=== PATIENT | male | born 1970 | race African-American/Black ===

== ENCOUNTER 2019-01-09 10:44 | Inpatient (IN) | payer SELFPAY ==
[~2019-01-09] VITALS: Ht 190.5 cm; Wt 230.4 kg
[2019-01-09] MEDS ORDERED: MORPHINE SULFATE 2 MG/ML VIAL. IV/SQ PRN (12:15)
[2019-01-09 12:30] LABS: BASO % 1 % (0-3); EOS # 0.2 x10^3/uL (0.0-0.7); EOS % 3 % (0-3); HEMATOCRIT 47.1 % (39.0-53.0); HEMOGLOBIN 14.6 g/dL (13.0-17.5); LYMPH % 15 % (24-48); MEAN CORPUSCULAR HEMOGLOBIN 25 pg (25-35); MEAN CORPUSCULAR HGB CONC 31 g/dL (31-37); MEAN CORPUSCULAR VOLUME 81 fL (79-100); MONO # 0.6 x10^3/uL (0.0-1.1); MONO % 9 % (0-9); NEUT # 4.9 x10^3uL (1.8-7.7); NEUT % 73 % (31-73); PLATELET COUNT 228 x10^3/uL (140-400); RED CELL DISTRIBUTION WIDTH 17.3 % (11.5-14.5); WHITE BLOOD COUNT 6.7 x10^3/uL (4.0-11.0)
[2019-01-09 12:37] LABS: PROTHROMBIN TIME PATIENT 15.4 SEC (11.7-14.0)
[2019-01-09 12:39] LABS: CALCIUM 8.9 mg/dL (8.5-10.1); CREATININE 0.8 mg/dL (0.7-1.3); GFR 124.8; POTASSIUM 4.2 mmol/L (3.5-5.1)
[2019-01-09 12:45] LABS: ALBUMIN 3.3 g/dL (3.4-5.0); ALBUMIN/GLOBULIN RATIO 0.9 (1.0-1.7); TOTAL BILIRUBIN 0.5 mg/dL (0.2-1.0); TOTAL PROTEIN 6.8 g/dL (6.4-8.2)
[2019-01-09] MEDS ORDERED: cefTRIAXone IV Push 1 GM VIAL. IVP ONE (12:45)
--- NOTE | 2019-01-09 13:16 | RAD ---
Chest radiograph 01/09/2019 1:00 PM INDICATION: Shortness of air COMPARISON: None available TECHNIQUE: Portable upright frontal view of the chest is provided. FINDINGS: The cardiomediastinal silhouette is enlarged. There are no pleural effusions. There is mild pulmonary vascular congestion. There is no pneumothorax. The lungs are clear. No significant osseous abnormality is identified. IMPRESSION: Enlarged cardiomediastinal silhouette with mild pulmonary vascular congestion as may be seen with congestive heart failure. Electronically signed by: Jo Elkins MD (01/09/2019 1:13 PM) [id number]
[2019-01-09] MEDS ORDERED: ONDANSETRON PF 4 MG/2 ML VIAL. IV PRN (13:45)
[2019-01-09] MEDS ORDERED: MORPHINE SULFATE 2 MG/ML VIAL. IV PRN (13:45)
--- NOTE | 2019-01-09 14:12 | PHYS DOC ---
Past Medical History Past Medical History: Hypertension, Other Additional Past Medical Histor: OBESITY Past Surgical History: Other Additional Past Surgical Histo: ORAL Additional Information: "VAPES" Alcohol Use: None Drug Use: None Adult General Chief Complaint Chief Complaint: OTHER COMPLAINTS HPI HPI Patient is a 48 year old male with a history of hypertension, chronic lymphedema to bilateral lower extremities who presents to the ED today compl aining of a wound on the right calf with maggots that he noted a week ago. Patient denies any fever. Denies any nausea or vomiting. Review of Systems Review of Systems Constitutional: Denies fever or chills [] Eyes: Denies change in visual acuity, redness, or eye pain [] HENT: Denies nasal congestion or sore throat [] Respiratory: Denies cough or shortness of breath [] Cardiovascular: No additional information not addressed in HPI [] GI: Denies abdominal pain, nausea, vomiting, bloody stools or diarrhea [] : Denies dysuria or hematuria [] Musculoskeletal: Denies back pain or joint pain [] Integument: wound on the right calf with maggots Neurologic: Denies headache, focal weakness or sensory changes [] All other systems were reviewed and found to be within normal limits, except as documented in this note. Current Medications Current Medications Current Medications Medications (Trade) Dose Ordered Sig/Stefanie Start Time Stop Time Status Last Admin Dose Admin Ceftriaxone Sodium (Rocephin) 1 gm 1X ONCE 01/09/19 12:45 01/09/19 12:46 DC 01/09/19 12:38 1 GM Morphine Sulfate (Morphine Sulfate) 2 mg PRN Q15MIN PRN 01/09/19 12:15 01/10/19 12:14 Allergies Allergies Allergies Coded Allergies Type Severity Reaction Last Updated Verified No Known Drug Allergies 01/09/19 No Physical Exam Physical Exam Constitutional: Morbidly obese patient, no acute distress, non-toxic appearance. [] HENT: Normocephalic, atraumatic, bilateral external ears normal, oropharynx moist, no oral exudates, nose normal. [] Eyes: PERRLA, EOMI, conjunctiva normal, no discharge. [] Neck: Normal range of motion, no tenderness, supple, no stridor. [] Cardiovascular:Heart rate regular rhythm, no murmur [] Lungs & Thorax: Bilateral breath sounds clear to auscultation [] Abdomen: Bowel sounds normal, soft, no tenderness, no masses, no pulsatile masses. [] Skin: Warm, dry, no erythema, no rash. [] Back: No tenderness, no CVA tenderness. [] Extremities: Bilateral lower extremities with moderate chronic lymphedema. Very dry crusty skin noted to bilateral lower extremities. The right lower calf region has an open with live maggots. +1 bilateral pedal pulses Neurologic: Alert and oriented X 3, normal motor function, normal sensory function, no focal deficits noted. [] Psychologic: Affect normal, judgement normal, mood normal. [] Current Patient Data Vital Signs Vital Signs Date Time Temp Pulse Resp B/P (MAP) Pulse Ox O2 Delivery O2 Flow Rate FiO2 01/09/19 12:51 80 179/109 (132) 94 Nasal Cannula 2.0 01/09/19 12:21 23 01/09/19 11:21 98.2 98.2 Lab Values Laboratory Tests Test 01/09/19 11:58 White Blood Count 6.7 x10^3/uL (4.0-11.0) Red Blood Count 5.80 x10^6/uL (4.30-5.70) H Hemoglobin 14.6 g/dL (13.0-17.5) Hematocrit 47.1 % (39.0-53.0) Mean Corpuscular Volume 81 fL (79-100) Mean Corpuscular Hemoglobin 25 pg (25-35) Mean Corpuscular Hemoglobin Concent 31 g/dL (31-37) Red Cell Distribution Width 17.3 % (11.5-14.5) H Platelet Count 228 x10^3/uL (140-400) Neutrophils (%) (Auto) 73 % (31-73) Lymphocytes (%) (Auto) 15 % (24-48) L Monocytes (%) (Auto) 9 % (0-9) Eosinophils (%) (Auto) 3 % (0-3) Basophils (%) (Auto) 1 % (0-3) Neutrophils # (Auto) 4.9 x10^3uL (1.8-7.7) Lymphocytes # (Auto) 1.0 x10^3/uL (1.0-4.8) Monocytes # (Auto) 0.6 x10^3/uL (0.0-1.1) Eosinophils # (Auto) 0.2 x10^3/uL (0.0-0.7) Basophils # (Auto) 0.0 x10^3/uL (0.0-0.2) Prothrombin Time 15.4 SEC (11.7-14.0) H Prothrombin Time INR 1.3 (0.8-1.1) H PTT 30 SEC (24-38) Sodium Level 142 mmol/L (136-145) Potassium Level 4.2 mmol/L (3.5-5.1) Chloride Level 103 mmol/L (98-107) Carbon Dioxide Level 37 mmol/L (21-32) H Anion Gap 2 (6-14) L Blood Urea Nitrogen 10 mg/dL (8-26) Creatinine 0.8 mg/dL (0.7-1.3) Estimated GFR (Cockcroft-Gault) 124.8 BUN/Creatinine Ratio 13 (6-20) Glucose Level 103 mg/dL (70-99) H Lactic Acid Level 1.1 mmol/L (0.4-2.0) Calcium Level 8.9 mg/dL (8.5-10.1) Total Bilirubin 0.5 mg/dL (0.2-1.0) Aspartate Amino Transferase (AST) 14 U/L (15-37) L Alanine Aminotransferase (ALT) 20 U/L (16-63) Alkaline Phosphatase 103 U/L (46-116) Total Protein 6.8 g/dL (6.4-8.2) Albumin 3.3 g/dL (3.4-5.0) L Albumin/Globulin Ratio 0.9 (1.0-1.7) L Procalcitonin < 0.10 ng/mL (0.00-0.10) Laboratory Tests 01/09/19 11:58 Laboratory Tests 01/09/19 11:58 EKG EKG [] Radiology/Procedures Radiology/Procedures []PROCEDURE: PORTABLE CHEST 1V Chest radiograph 01/09/2019 1:00 PM INDICATION: Shortness of air COMPARISON: None available TECHNIQUE: Portable upright frontal view of the chest is provided. FINDINGS: The cardiomediastinal silhouette is enlarged. There are no pleural effusions. There is mild pulmonary vascular congestion. There is no pneumothorax. The lungs are clear. No significant osseous abnormality is identified. IMPRESSION: Enlarged cardiomediastinal silhouette with mild pulmonary vascular congestion as may be seen with congestive heart failure. Electronically signed by: Mike Elkins MD (01/09/2019 1:13 PM) [id number] DICTATED and SIGNED BY: MIKE ELKINS MD DATE: 01/09/19 1313 Course & Med Decision Making Course & Med Decision Making Pertinent Labs and Imaging studies reviewed. (See chart for details) This is a 48-year-old male patient presented to the ED with a wound on the right calf with maggots. Patient is morbidly obese and has chronic lymphedema. CBC, CMP-no acute findings Blood pressure 169/118, patient has history of hypertension and is not on any medications. Chest x-ray noted for CHF. Wound care consult placed Spoke with Dr. mcmillan accepted patient for admission Dragon Disclaimer Dragon Disclaimer This electronic medical record was generated, in whole or in part, using a voice recognition dictation system. Departure Departure Impression: Primary Impression: Infestation, maggot Additional Impression: Wound of right lower extremity Disposition: ADMITTED INPATIENT Condition: STABLE Referrals: NO PCP (PCP) Problem Qualifiers Additional Impression: Wound of right lower extremity Encounter type: initial encounter Qualified Codes: S81.801A - Unspecified open wound, right lower leg, initial encounter CARSON [employer] WR[employer] Jan 09, 2019 14:12
--- NOTE | 2019-01-09 14:17 | RAD ---
Bilateral lower extremity venous duplex study 01/09/2019 12:05 PM Clinical History: Right calf wound, Comparison: None available Technique: Using a combination of real time ultrasound imaging and color-flow and pulse Doppler imaging techniques along with graded compression and augmentation, duplex evaluation of the deep venous system of the both lower extremities was performed. Multiple images were obtained. Findings: Exam is significantly limited by patient body habitus. Visualized deep veins of the bilateral lower extremities demonstrate color flow on Doppler imaging. Evaluation of compressibility is particularly limited. Evaluation below the knee is also seen significantly limited. IMPRESSION: Significantly limited study without gross evidence of deep venous thrombosis involving either lower extremity.. Electronically signed by: Nikita Vernon MD (01/09/2019 2:14 PM) [id number]
--- NOTE | 2019-01-09 15:12 | NUR ---
Pt arrived to unit at approx 1455. Pt's bp was 217/123. Dr Cali was notified, stated he would place orders.
[2019-01-09] MEDS ORDERED: NICOTINE 21MG PATCH. TD PRN (15:15)
[2019-01-09] MEDS ORDERED: NICOTINE POLACRILEX 2MG GUM PACKAGE of 12. BC PRN (15:15)
[2019-01-09] MEDS: amLODIPine BESYLATE 10 MG TABLET PO SCH (15:28)
--- NOTE | 2019-01-09 15:28 | PDOC1 ---
History and Physical Date of Admission Date of Admission DATE: 01/09/19 TIME: 15:24 Identification/Chief Complaint Chief Complaint leg wound Source Source: Chart review, Patient History of Present Illness History of Present Illness Mr. Lozoya, is a 48 year old male with a report of chronic lymphedema to bilateral lower extremities admti with worsening from a wound on the right calf. Pain with movement, he cannot lift the leg well to examine, the ER reported bugs in the wetness of the wound. . Patient denies any fever. Denies any nausea or vomiting. he was aware of hypertension, has not seen a doctor in years, takes no meds, Past Medical History Cardiovascular: HTN Pulmonary: No pertinent hx GI: No pertinent hx Heme/Onc: No pertinent hx Hepatobiliary: No pertinent hx Psych: No pertinent hx Rheumatologic: No pertinent hx Infectious disease: No pertinent hx Past Surgical History Past Surgical History: No pertinent history Family History Family History: Hypertension Social History Smoke: <1 pack per day ALCOHOL: none Drugs: None Current Problem List Problem List Problems Medical Problems: (1) Infestation, maggot Status: Acute (2) Wound of right lower extremity Status: Acute Current Medications Current Medications Current Medications Morphine Sulfate (Morphine Sulfate) 2 mg PRN Q15MIN PRN IV/SQ PAIN GREATER THAN 3/10; Start 01/09/19 at 12:15; Stop 01/10/19 at 12:14 Ceftriaxone Sodium (Rocephin) 1 gm 1X ONCE IVP Last administered on 01/09/19at 12:38; Start 01/09/19 at 12:45; Stop 01/09/19 at 12:46; Status DC Ondansetron HCl (Zofran) 4 mg PRN Q8HRS PRN IV NAUSEA/VOMITING; Start 01/09/19 at 13:45; Stop 01/10/19 at 13:44 Morphine Sulfate (Morphine Sulfate) 2 mg PRN Q2HR PRN IV PAIN; Start 01/09/19 at 13:45; Stop 01/10/19 at 13:44 Amlodipine Besylate (Norvasc) 10 mg DAILY PO ; Start 01/09/19 at 15:15 Allergies Allergies: Coded Allergies: No Known Drug Allergies (Unverified , 01/09/19) ROS General: No: Chills, Night Sweats, Fatigue, Malaise, Appetite, Other PSYCHOLOGICAL ROS: YES: Sleep disturbances; No: Anxiety, Behavioral Disorder, Concentration difficultie, Decreased libido, Depression, Disorientation, Hallucinations, Hostility, Irritablity, Memory difficulties, Mood Swings, Obsessive thoughts, Physical abuse, Sexual abuse, Suicidal ideation, Other Eyes: No Blurry vision, No Decreased vision, No Double vision, No Dry eyes, No Excessive tearing, No Eye Pain, No Itchy Eyes, No Loss of vision, No Photophobia, No Scotomata, No Uses contacts, No Uses glasses, No Other HEENT: YES: Heacaches; No: Visual Changes, Hearing change, Nasal congestion, Nasal discharge, Oral lesions, Sinus pain, Sore Throat, Epistaxis, Sneezing, Snoring, Tinnitus, Vertigo, Vocal changes, Other Respiratory: No: Cough, Hemoptysis, Orthopnea, Pleuritic Pain, Shortness of breath, SOB with excertion, Sputum Changes, Stridor, Tachypnea, Wheezing, Other Cardiovascular: No Chest Pain, No Palpitations, No Orthopnea, No Paroxysmal Noc. Dyspnea, No Edema, No Lt Headedness, No Other Gastrointestinal: No Nausea, No Vomiting, No Abdominal Pain, No Diarrhea, No Constipation, No Melena, No Hematochezia, No Other Genitourinary: No Dysuria, No Frequency, No Incontinence, No Hematuria, No Retention, No Discharge, No Urgency, No Pain, No Flank Pain, No Other, No , No , No , No , No , No , No Musculoskeletal: No Gait Disturbance, No Joint Pain, No Joint Stiffness, No Joint Swelling, No Muscle Pain, No Muscular Weakness, No Pain In:, No Swelling In:, No Other Neurological: No Behavorial Changes, No Bowel/Bladder ControlChng, No Confusion, No Dizziness, No Gait Disturbance, No Headaches, No Impaired Coord/balance, No Memory Loss, No Numbness/Tingling, No Seizures, No Speech Problems, No Tremors, No Visual Changes, No Weakness, No Other Skin: Yes Dry Skin, Yes Hair Changes, Yes Rash, Yes Skin Lesion Changes, Yes Other; No Eczema, No Lumps, No Mole Changes, No Mottling, No Nail Changes, No Pruritus, No Acne Physical Exam General: Alert, Oriented X3, Cooperative, mild distress HEENT: PERRLA, EOMI Lungs: Normal air movement Heart: S1S2, RRR Abdomen: Soft (very obese, ) Extremities: No cyanosis Skin: Other (right LE wound, lateral, wet, with bugs per ER staff. skin has chronic thickening and is very dry, elephant type skin) Neuro: Normal gait, Normal speech Psych/Mental Status: Mental status NL, Mood NL Vitals Vitals Vital Signs Date Time Temp Pulse Resp B/P (MAP) Pulse Ox O2 Delivery O2 Flow Rate FiO2 01/09/19 14:40 198/110 (139) 87 Room Air 01/09/19 13:51 88 01/09/19 13:21 2.0 01/09/19 12:21 23 01/09/19 11:21 98.2 98.2 Labs Labs Laboratory Tests Test 01/09/19 11:58 White Blood Count 6.7 x10^3/uL (4.0-11.0) Red Blood Count 5.80 x10^6/uL (4.30-5.70) Hemoglobin 14.6 g/dL (13.0-17.5) Hematocrit 47.1 % (39.0-53.0) Mean Corpuscular Volume 81 fL (79-100) Mean Corpuscular Hemoglobin 25 pg (25-35) Mean Corpuscular Hemoglobin Concent 31 g/dL (31-37) Red Cell Distribution Width 17.3 % (11.5-14.5) Platelet Count 228 x10^3/uL (140-400) Neutrophils (%) (Auto) 73 % (31-73) Lymphocytes (%) (Auto) 15 % (24-48) Monocytes (%) (Auto) 9 % (0-9) Eosinophils (%) (Auto) 3 % (0-3) Basophils (%) (Auto) 1 % (0-3) Neutrophils # (Auto) 4.9 x10^3uL (1.8-7.7) Lymphocytes # (Auto) 1.0 x10^3/uL (1.0-4.8) Monocytes # (Auto) 0.6 x10^3/uL (0.0-1.1) Eosinophils # (Auto) 0.2 x10^3/uL (0.0-0.7) Basophils # (Auto) 0.0 x10^3/uL (0.0-0.2) Prothrombin Time 15.4 SEC (11.7-14.0) Prothromb Time International Ratio 1.3 (0.8-1.1) Activated Partial Thromboplast Time 30 SEC (24-38) Sodium Level 142 mmol/L (136-145) Potassium Level 4.2 mmol/L (3.5-5.1) Chloride Level 103 mmol/L (98-107) Carbon Dioxide Level 37 mmol/L (21-32) Anion Gap 2 (6-14) Blood Urea Nitrogen 10 mg/dL (8-26) Creatinine 0.8 mg/dL (0.7-1.3) Estimated GFR (Cockcroft-Gault) 124.8 BUN/Creatinine Ratio 13 (6-20) Glucose Level 103 mg/dL (70-99) Lactic Acid Level 1.1 mmol/L (0.4-2.0) Calcium Level 8.9 mg/dL (8.5-10.1) Total Bilirubin 0.5 mg/dL (0.2-1.0) Aspartate Amino Transf (AST/SGOT) 14 U/L (15-37) Alanine Aminotransferase (ALT/SGPT) 20 U/L (16-63) Alkaline Phosphatase 103 U/L (46-116) Total Protein 6.8 g/dL (6.4-8.2) Albumin 3.3 g/dL (3.4-5.0) Albumin/Globulin Ratio 0.9 (1.0-1.7) Procalcitonin < 0.10 ng/mL (0.00-0.10) Laboratory Tests Test 01/09/19 11:58 White Blood Count 6.7 x10^3/uL (4.0-11.0) Red Blood Count 5.80 x10^6/uL (4.30-5.70) Hemoglobin 14.6 g/dL (13.0-17.5) Hematocrit 47.1 % (39.0-53.0) Mean Corpuscular Volume 81 fL (79-100) Mean Corpuscular Hemoglobin 25 pg (25-35) Mean Corpuscular Hemoglobin Concent 31 g/dL (31-37) Red Cell Distribution Width 17.3 % (11.5-14.5) Platelet Count 228 x10^3/uL (140-400) Neutrophils (%) (Auto) 73 % (31-73) Lymphocytes (%) (Auto) 15 % (24-48) Monocytes (%) (Auto) 9 % (0-9) Eosinophils (%) (Auto) 3 % (0-3) Basophils (%) (Auto) 1 % (0-3) Neutrophils # (Auto) 4.9 x10^3uL (1.8-7.7) Lymphocytes # (Auto) 1.0 x10^3/uL (1.0-4.8) Monocytes # (Auto) 0.6 x10^3/uL (0.0-1.1) Eosinophils # (Auto) 0.2 x10^3/uL (0.0-0.7) Basophils # (Auto) 0.0 x10^3/uL (0.0-0.2) Prothrombin Time 15.4 SEC (11.7-14.0) Prothromb Time International Ratio 1.3 (0.8-1.1) Activated Partial Thromboplast Time 30 SEC (24-38) Sodium Level 142 mmol/L (136-145) Potassium Level 4.2 mmol/L (3.5-5.1) Chloride Level 103 mmol/L (98-107) Carbon Dioxide Level 37 mmol/L (21-32) Anion Gap 2 (6-14) Blood Urea Nitrogen 10 mg/dL (8-26) Creatinine 0.8 mg/dL (0.7-1.3) Estimated GFR (Cockcroft-Gault) 124.8 BUN/Creatinine Ratio 13 (6-20) Glucose Level 103 mg/dL (70-99) Lactic Acid Level 1.1 mmol/L (0.4-2.0) Calcium Level 8.9 mg/dL (8.5-10.1) Total Bilirubin 0.5 mg/dL (0.2-1.0) Aspartate Amino Transf (AST/SGOT) 14 U/L (15-37) Alanine Aminotransferase (ALT/SGPT) 20 U/L (16-63) Alkaline Phosphatase 103 U/L (46-116) Total Protein 6.8 g/dL (6.4-8.2) Albumin 3.3 g/dL (3.4-5.0) Albumin/Globulin Ratio 0.9 (1.0-1.7) Procalcitonin < 0.10 ng/mL (0.00-0.10) VTE Prophylaxis Ordered VTE Prophylaxis Devices: No VTE Pharmacological Prophylaxi: No Assessment/Plan Assessment/Plan accelerated hypertension LE edema, probable diastolic CHF, lee check echo RIght leg wound, consult wound care and ID chronic skin sclerosis from edema, elephantitis appearance of skin morbid obesity, BMI 62 tobacco use d/o (vaping) admitted ERROL CASILLAS MD Jan 09, 2019 15:28
[2019-01-09] MEDS: CARVEDILOL 6.25 MG TABLET. PO SCH (15:29)
--- NOTE | 2019-01-09 15:52 | NUR ---
Wound care: Patient seen per wound care consult. See wound assessment. Patient has stasis ulcer to right posterior lower extremity as well as lymphedema bilaterally. Wound cleansed with Dakins, assessed, measured, and photographed. There were live maggots found in this wound. Maggots cleansed off and placed in a red biohazard bag. Recommendations for Aquacel Ag to wound bed, ABD pad, and kerlix. Changing every 1-2 days depending on drainage. No other wounds noted upon complete head to toe assessment. Dressing change instructions left in room. Spoke with RN regarding POC. Patient is on a P-500 bariatric bed. Ammonium lactate to be ordered by RN for bilateral lower extremities. Bed lowered and call light in reach. Will follow patient regarding wound care.
[2019-01-09 16:52] VITALS: BP 217/123
[2019-01-09 19:00] VITALS: BP 130/84
[2019-01-09 23:00] VITALS: BP 169/79
[2019-01-10 03:00] VITALS: BP 173/94
[2019-01-10 04:36] LABS: BASO % 0 % (0-3); EOS # 0.2 x10^3/uL (0.0-0.7); EOS % 2 % (0-3); HEMATOCRIT 48.9 % (39.0-53.0); HEMOGLOBIN 15.3 g/dL (13.0-17.5); LYMPH # 0.9 x10^3/uL (1.0-4.8); LYMPH % 12 % (24-48); MEAN CORPUSCULAR HEMOGLOBIN 25 pg (25-35); MEAN CORPUSCULAR HGB CONC 31 g/dL (31-37); MEAN CORPUSCULAR VOLUME 81 fL (79-100); MONO # 0.5 x10^3/uL (0.0-1.1); MONO % 7 % (0-9); NEUT # 5.9 x10^3uL (1.8-7.7); NEUT % 79 % (31-73); PLATELET COUNT 215 x10^3/uL (140-400); RED BLOOD COUNT 6.01 x10^6/uL (4.30-5.70); RED CELL DISTRIBUTION WIDTH 17.4 % (11.5-14.5); WHITE BLOOD COUNT 7.5 x10^3/uL (4.0-11.0)
[2019-01-10 04:57] LABS: CALCIUM 9.2 mg/dL (8.5-10.1); CREATININE 0.8 mg/dL (0.7-1.3); GFR 124.8
[2019-01-10 07:00] VITALS: BP 184/85
[2019-01-10] MEDS: amLODIPine BESYLATE 10 MG TABLET PO SCH (08:48)
[2019-01-10] MEDS: CARVEDILOL 6.25 MG TABLET. PO SCH ×2 (08:56→17:40)
--- NOTE | 2019-01-10 10:41 | PDOC ---
PROGRESS NOTES Chief Complaint Chief Complaint accelerated hypertension LE edema, probable diastolic CHF, lee check echo RIght leg wound, consult wound care and ID chronic skin sclerosis from edema, elephantitis appearance of skin morbid obesity, BMI 62 tobacco use d/o (vaping) History of Present Illness History of Present Illness BP better with norvasc and coreg, will add lisinopril today, good renal fxn hypercarbia from pickwickian likely cont current pt and OT and lymphedema treatment, Vitals Vitals Vital Signs Date Time Temp Pulse Resp B/P (MAP) Pulse Ox O2 Delivery O2 Flow Rate FiO2 01/10/19 08:56 90 184/85 01/10/19 07:00 98.6 18 96 Room Air 98.6 01/10/19 03:00 2.0 Physical Exam General: Alert, Oriented X3, Cooperative, No acute distress Heart: Regular rate, No murmurs Abdomen: Soft (very obese, ) Extremities: Other Skin: Other (right LE wound, lateral, skin has chronic thickening and is very dry, elephant type skin, ) Labs LABS Laboratory Tests Test 01/09/19 11:58 01/09/19 16:05 01/10/19 03:30 White Blood Count 6.7 x10^3/uL (4.0-11.0) 7.5 x10^3/uL (4.0-11.0) Red Blood Count 5.80 x10^6/uL (4.30-5.70) 6.01 x10^6/uL (4.30-5.70) Hemoglobin 14.6 g/dL (13.0-17.5) 15.3 g/dL (13.0-17.5) Hematocrit 47.1 % (39.0-53.0) 48.9 % (39.0-53.0) Mean Corpuscular Volume 81 fL (79-100) 81 fL (79-100) Mean Corpuscular Hemoglobin 25 pg (25-35) 25 pg (25-35) Mean Corpuscular Hemoglobin Concent 31 g/dL (31-37) 31 g/dL (31-37) Red Cell Distribution Width 17.3 % (11.5-14.5) 17.4 % (11.5-14.5) Platelet Count 228 x10^3/uL (140-400) 215 x10^3/uL (140-400) Neutrophils (%) (Auto) 73 % (31-73) 79 % (31-73) Lymphocytes (%) (Auto) 15 % (24-48) 12 % (24-48) Monocytes (%) (Auto) 9 % (0-9) 7 % (0-9) Eosinophils (%) (Auto) 3 % (0-3) 2 % (0-3) Basophils (%) (Auto) 1 % (0-3) 0 % (0-3) Neutrophils # (Auto) 4.9 x10^3uL (1.8-7.7) 5.9 x10^3uL (1.8-7.7) Lymphocytes # (Auto) 1.0 x10^3/uL (1.0-4.8) 0.9 x10^3/uL (1.0-4.8) Monocytes # (Auto) 0.6 x10^3/uL (0.0-1.1) 0.5 x10^3/uL (0.0-1.1) Eosinophils # (Auto) 0.2 x10^3/uL (0.0-0.7) 0.2 x10^3/uL (0.0-0.7) Basophils # (Auto) 0.0 x10^3/uL (0.0-0.2) 0.0 x10^3/uL (0.0-0.2) Prothrombin Time 15.4 SEC (11.7-14.0) Prothromb Time International Ratio 1.3 (0.8-1.1) Activated Partial Thromboplast Time 30 SEC (24-38) Sodium Level 142 mmol/L (136-145) 143 mmol/L (136-145) Potassium Level 4.2 mmol/L (3.5-5.1) 4.0 mmol/L (3.5-5.1) Chloride Level 103 mmol/L (98-107) 103 mmol/L (98-107) Carbon Dioxide Level 37 mmol/L (21-32) 37 mmol/L (21-32) Anion Gap 2 (6-14) 3 (6-14) Blood Urea Nitrogen 10 mg/dL (8-26) 9 mg/dL (8-26) Creatinine 0.8 mg/dL (0.7-1.3) 0.8 mg/dL (0.7-1.3) Estimated GFR (Cockcroft-Gault) 124.8 124.8 BUN/Creatinine Ratio 13 (6-20) Glucose Level 103 mg/dL (70-99) 105 mg/dL (70-99) Lactic Acid Level 1.1 mmol/L (0.4-2.0) 1.2 mmol/L (0.4-2.0) Calcium Level 8.9 mg/dL (8.5-10.1) 9.2 mg/dL (8.5-10.1) Total Bilirubin 0.5 mg/dL (0.2-1.0) Aspartate Amino Transf (AST/SGOT) 14 U/L (15-37) Alanine Aminotransferase (ALT/SGPT) 20 U/L (16-63) Alkaline Phosphatase 103 U/L (46-116) Total Protein 6.8 g/dL (6.4-8.2) Albumin 3.3 g/dL (3.4-5.0) Albumin/Globulin Ratio 0.9 (1.0-1.7) Procalcitonin < 0.10 ng/mL (0.00-0.10) Review of Systems Review of Systems sleepy, lethargic, has eaten, no n..d Assessment and Plan Assessmemt and Plan Problems Medical Problems: (1) Infestation, maggot Status: Acute (2) Wound of right lower extremity Status: Acute Comment Review of Relevant I have reviewed the following items peter (where applicable) has been applied. Labs Laboratory Tests Test 01/09/19 11:58 01/09/19 16:05 01/10/19 03:30 White Blood Count 6.7 x10^3/uL (4.0-11.0) 7.5 x10^3/uL (4.0-11.0) Red Blood Count 5.80 x10^6/uL (4.30-5.70) 6.01 x10^6/uL (4.30-5.70) Hemoglobin 14.6 g/dL (13.0-17.5) 15.3 g/dL (13.0-17.5) Hematocrit 47.1 % (39.0-53.0) 48.9 % (39.0-53.0) Mean Corpuscular Volume 81 fL (79-100) 81 fL (79-100) Mean Corpuscular Hemoglobin 25 pg (25-35) 25 pg (25-35) Mean Corpuscular Hemoglobin Concent 31 g/dL (31-37) 31 g/dL (31-37) Red Cell Distribution Width 17.3 % (11.5-14.5) 17.4 % (11.5-14.5) Platelet Count 228 x10^3/uL (140-400) 215 x10^3/uL (140-400) Neutrophils (%) (Auto) 73 % (31-73) 79 % (31-73) Lymphocytes (%) (Auto) 15 % (24-48) 12 % (24-48) Monocytes (%) (Auto) 9 % (0-9) 7 % (0-9) Eosinophils (%) (Auto) 3 % (0-3) 2 % (0-3) Basophils (%) (Auto) 1 % (0-3) 0 % (0-3) Neutrophils # (Auto) 4.9 x10^3uL (1.8-7.7) 5.9 x10^3uL (1.8-7.7) Lymphocytes # (Auto) 1.0 x10^3/uL (1.0-4.8) 0.9 x10^3/uL (1.0-4.8) Monocytes # (Auto) 0.6 x10^3/uL (0.0-1.1) 0.5 x10^3/uL (0.0-1.1) Eosinophils # (Auto) 0.2 x10^3/uL (0.0-0.7) 0.2 x10^3/uL (0.0-0.7) Basophils # (Auto) 0.0 x10^3/uL (0.0-0.2) 0.0 x10^3/uL (0.0-0.2) Prothrombin Time 15.4 SEC (11.7-14.0) Prothromb Time International Ratio 1.3 (0.8-1.1) Activated Partial Thromboplast Time 30 SEC (24-38) Sodium Level 142 mmol/L (136-145) 143 mmol/L (136-145) Potassium Level 4.2 mmol/L (3.5-5.1) 4.0 mmol/L (3.5-5.1) Chloride Level 103 mmol/L (98-107) 103 mmol/L (98-107) Carbon Dioxide Level 37 mmol/L (21-32) 37 mmol/L (21-32) Anion Gap 2 (6-14) 3 (6-14) Blood Urea Nitrogen 10 mg/dL (8-26) 9 mg/dL (8-26) Creatinine 0.8 mg/dL (0.7-1.3) 0.8 mg/dL (0.7-1.3) Estimated GFR (Cockcroft-Gault) 124.8 124.8 BUN/Creatinine Ratio 13 (6-20) Glucose Level 103 mg/dL (70-99) 105 mg/dL (70-99) Lactic Acid Level 1.1 mmol/L (0.4-2.0) 1.2 mmol/L (0.4-2.0) Calcium Level 8.9 mg/dL (8.5-10.1) 9.2 mg/dL (8.5-10.1) Total Bilirubin 0.5 mg/dL (0.2-1.0) Aspartate Amino Transf (AST/SGOT) 14 U/L (15-37) Alanine Aminotransferase (ALT/SGPT) 20 U/L (16-63) Alkaline Phosphatase 103 U/L (46-116) Total Protein 6.8 g/dL (6.4-8.2) Albumin 3.3 g/dL (3.4-5.0) Albumin/Globulin Ratio 0.9 (1.0-1.7) Procalcitonin < 0.10 ng/mL (0.00-0.10) Laboratory Tests Test 01/09/19 11:58 01/09/19 16:05 01/10/19 03:30 White Blood Count 6.7 x10^3/uL (4.0-11.0) 7.5 x10^3/uL (4.0-11.0) Red Blood Count 5.80 x10^6/uL (4.30-5.70) 6.01 x10^6/uL (4.30-5.70) Hemoglobin 14.6 g/dL (13.0-17.5) 15.3 g/dL (13.0-17.5) Hematocrit 47.1 % (39.0-53.0) 48.9 % (39.0-53.0) Mean Corpuscular Volume 81 fL (79-100) 81 fL (79-100) Mean Corpuscular Hemoglobin 25 pg (25-35) 25 pg (25-35) Mean Corpuscular Hemoglobin Concent 31 g/dL (31-37) 31 g/dL (31-37) Red Cell Distribution Width 17.3 % (11.5-14.5) 17.4 % (11.5-14.5) Platelet Count 228 x10^3/uL (140-400) 215 x10^3/uL (140-400) Neutrophils (%) (Auto) 73 % (31-73) 79 % (31-73) Lymphocytes (%) (Auto) 15 % (24-48) 12 % (24-48) Monocytes (%) (Auto) 9 % (0-9) 7 % (0-9) Eosinophils (%) (Auto) 3 % (0-3) 2 % (0-3) Basophils (%) (Auto) 1 % (0-3) 0 % (0-3) Neutrophils # (Auto) 4.9 x10^3uL (1.8-7.7) 5.9 x10^3uL (1.8-7.7) Lymphocytes # (Auto) 1.0 x10^3/uL (1.0-4.8) 0.9 x10^3/uL (1.0-4.8) Monocytes # (Auto) 0.6 x10^3/uL (0.0-1.1) 0.5 x10^3/uL (0.0-1.1) Eosinophils # (Auto) 0.2 x10^3/uL (0.0-0.7) 0.2 x10^3/uL (0.0-0.7) Basophils # (Auto) 0.0 x10^3/uL (0.0-0.2) 0.0 x10^3/uL (0.0-0.2) Prothrombin Time 15.4 SEC (11.7-14.0) Prothromb Time International Ratio 1.3 (0.8-1.1) Activated Partial Thromboplast Time 30 SEC (24-38) Sodium Level 142 mmol/L (136-145) 143 mmol/L (136-145) Potassium Level 4.2 mmol/L (3.5-5.1) 4.0 mmol/L (3.5-5.1) Chloride Level 103 mmol/L (98-107) 103 mmol/L (98-107) Carbon Dioxide Level 37 mmol/L (21-32) 37 mmol/L (21-32) Anion Gap 2 (6-14) 3 (6-14) Blood Urea Nitrogen 10 mg/dL (8-26) 9 mg/dL (8-26) Creatinine 0.8 mg/dL (0.7-1.3) 0.8 mg/dL (0.7-1.3) Estimated GFR (Cockcroft-Gault) 124.8 124.8 BUN/Creatinine Ratio 13 (6-20) Glucose Level 103 mg/dL (70-99) 105 mg/dL (70-99) Lactic Acid Level 1.1 mmol/L (0.4-2.0) 1.2 mmol/L (0.4-2.0) Calcium Level 8.9 mg/dL (8.5-10.1) 9.2 mg/dL (8.5-10.1) Total Bilirubin 0.5 mg/dL (0.2-1.0) Aspartate Amino Transf (AST/SGOT) 14 U/L (15-37) Alanine Aminotransferase (ALT/SGPT) 20 U/L (16-63) Alkaline Phosphatase 103 U/L (46-116) Total Protein 6.8 g/dL (6.4-8.2) Albumin 3.3 g/dL (3.4-5.0) Albumin/Globulin Ratio 0.9 (1.0-1.7) Procalcitonin < 0.10 ng/mL (0.00-0.10) Medications Current Medications Morphine Sulfate (Morphine Sulfate) 2 mg PRN Q15MIN PRN IV/SQ PAIN GREATER THAN 3/10; Start 01/09/19 at 12:15; Stop 01/10/19 at 07:43; Status DC Ceftriaxone Sodium (Rocephin) 1 gm 1X ONCE IVP Last administered on 01/09/19at 12:38; Start 01/09/19 at 12:45; Stop 01/09/19 at 12:46; Status DC Ondansetron HCl (Zofran) 4 mg PRN Q8HRS PRN IV NAUSEA/VOMITING; Start 01/09/19 at 13:45; Stop 01/10/19 at 13:44 Morphine Sulfate (Morphine Sulfate) 2 mg PRN Q2HR PRN IV PAIN; Start 01/09/19 at 13:45; Stop 01/10/19 at 13:44 Amlodipine Besylate (Norvasc) 10 mg DAILY PO Last administered on 01/10/19at 08:48; Start 01/09/19 at 15:15 Nicotine (Nicoderm Cq 21mg) 1 patch PRN DAILY PRN TD SMOKING CESSATION; Start 01/09/19 at 15:15 Nicotine Polacrilex (Nicorette Gum) 1 each PRN Q1HR PRN BC SMOKING CESSATION; Start 01/09/19 at 15:15 Carvedilol (Coreg) 6.25 mg BIDWMEALS PO Last administered on 01/10/19at 08:56; Start 01/09/19 at 15:30 Enoxaparin Sodium (Lovenox Per Pharmacy Prophylaxis Dosing) 1 each PRN DAILY PRN MC SEE COMMENTS; Start 01/09/19 at 15:30 Enoxaparin Sodium (Lovenox 60mg Syringe) 60 mg Q12HR SQ Last administered on 01/10/19at 08:58; Start 01/09/19 at 21:00 Vitals/I & O Vital Sign - Last 24 Hours 01/09/19 01/09/19 01/09/19 01/09/19 11:21 11:23 11:59 12:21 Temp 98.2 98.2 Pulse 78 76 76 76 Resp 20 21 23 B/P (MAP) 169/119 (136) 172/112 (132) 184/86 (118) 184/94 (124) Pulse Ox 93 90 93 O2 Delivery Room Air Nasal Cannula Nasal Cannula Nasal Cannula O2 Flow Rate 2.0 2.0 2.0 01/09/19 01/09/19 01/09/19 01/09/19 12:51 13:21 13:46 13:51 Pulse 80 76 86 88 B/P (MAP) 179/109 (132) 186/110 (135) 196/104 (134) 209/123 (151) Pulse Ox 94 92 91 O2 Delivery Nasal Cannula Nasal Cannula Nasal Cannula Nasal Cannula O2 Flow Rate 2.0 2.0 01/09/19 01/09/19 01/09/19 01/09/19 14:40 15:28 15:29 16:52 Temp 97.9 97.9 Pulse 77 77 76 Resp 22 B/P (MAP) 198/110 (139) 217/123 217/123 217/123 (154) Pulse Ox 87 92 O2 Delivery Room Air Room Air 01/09/19 01/09/19 01/09/19 01/10/19 19:00 20:20 23:00 03:00 Temp 98.0 98.8 98.1 98.0 98.8 98.1 Pulse 86 85 89 Resp 20 20 20 B/P (MAP) 130/84 (99) 169/79 (109) 173/94 (120) Pulse Ox 94 97 93 O2 Delivery Nasal Cannula Nasal Cannula Nasal Cannula Nasal Cannula O2 Flow Rate 2.0 2.0 2.0 2.0 01/10/19 01/10/19 01/10/19 07:00 08:48 08:56 Temp 98.6 98.6 Pulse 90 90 90 Resp 18 B/P (MAP) 184/85 (118) 184/85 184/85 Pulse Ox 96 O2 Delivery Room Air Intake and Output 01/09/19 01/09/19 01/10/19 14:59 22:59 06:59 Intake Total 450 ml 240 ml Balance 450 ml 240 ml ERROL CASILLAS MD Jan 10, 2019 10:41
[2019-01-10 11:00] VITALS: BP 196/99
[2019-01-10] MEDS ORDERED: IPRATRPIUM/ALBUTEROL 0.5/2.5MG 3 ML NEBU. NEB ONE (11:15)
[2019-01-10] MEDS ORDERED: IOHEXOL 350 MG/ML 100 ML VIAL. IV ONE (11:30)
[2019-01-10] MEDS ORDERED: CONTRAST GIVEN. MC PRN (11:45)
[2019-01-10] MEDS: cefTRIAXone IV Push 1 GM VIAL. IVP SCH (12:35)
[2019-01-10] MEDS: LISINOPRIL 20 MG TABLET PO SCH (12:36)
--- NOTE | 2019-01-10 13:58 | RAD ---
Chest CTA History: Hypoxia Technique: After bolus of intravenous contrast, CT imaging was performed of the chest. Multiplanar reconstruction images to include MIP reconstruction images are submitted. Exposure: One or more of the following individualized dose reduction techniques were utilized for this examination: 1. Automated exposure control 2. Adjustment of the mA and/or kV according to patient size 3. Use of iterative reconstruction technique. Comparison: None Findings: Contrast bolus in the pulmonary arteries is suboptimal and there is motion degradation. No central pulmonary embolism is identified in the main pulmonary arteries or proximal segmental branches although otherwise limited evaluation for pulmonary embolic disease. Main pulmonary artery is dilated about 4.8 cm. There is dilatation of the ascending thoracic aorta about 4.4 cm. Aortic root is estimated about 4.2 cm. No dissection flap is identified of the thoracic aorta. No significantly enlarged nodes are identified of the chest. There are some calcified right hilar and subcarinal nodes. There is no lobar consolidation, pleural or pericardial effusion, pneumothorax. There is linear likely atelectasis or fibrotic change of the lower lobes closer to the lung bases bilaterally. There is likely hepatic steatosis. Stomach is distended. There is shared origin of the brachiocephalic and left common carotid arteries. Impression: 1. No central pulmonary embolism is identified although otherwise limited accurate characterization evaluation for pulmonary embolic disease on this exam. There is dilatation of the main pulmonary arteries may be seen with pulmonary hypertension. 2. There is dilatation aortic root and ascending thoracic aorta, ascending thoracic aorta up to about 4.4 cm, no intraluminal flap. 3. There is likely hepatic steatosis. 4. There is distention of visualized stomach. 5. There is mild atelectasis or fibrotic change lower lobes bilaterally. Electronically signed by: Goran Lucio MD (01/10/2019 1:55 PM) [facility]
[2019-01-10 15:00] VITALS: BP 166/90
[2019-01-10] MEDS: IPRATRPIUM/ALBUTEROL 0.5/2.5MG 3 ML NEBU. NEB SCH ×2 (16:15→20:38)
--- NOTE | 2019-01-10 16:31 | PDOC ---
Infectious Disease Note Vital Sign Vital Signs Vital Signs Date Time Temp Pulse Resp B/P (MAP) Pulse Ox O2 Delivery O2 Flow Rate FiO2 01/10/19 15:00 98.4 91 23 166/90 (115) 90 Simple Mask 8.0 98.4 Labs Lab Laboratory Tests Test 01/10/19 03:30 White Blood Count 7.5 x10^3/uL (4.0-11.0) Red Blood Count 6.01 x10^6/uL (4.30-5.70) Hemoglobin 15.3 g/dL (13.0-17.5) Hematocrit 48.9 % (39.0-53.0) Mean Corpuscular Volume 81 fL (79-100) Mean Corpuscular Hemoglobin 25 pg (25-35) Mean Corpuscular Hemoglobin Concent 31 g/dL (31-37) Red Cell Distribution Width 17.4 % (11.5-14.5) Platelet Count 215 x10^3/uL (140-400) Neutrophils (%) (Auto) 79 % (31-73) Lymphocytes (%) (Auto) 12 % (24-48) Monocytes (%) (Auto) 7 % (0-9) Eosinophils (%) (Auto) 2 % (0-3) Basophils (%) (Auto) 0 % (0-3) Neutrophils # (Auto) 5.9 x10^3uL (1.8-7.7) Lymphocytes # (Auto) 0.9 x10^3/uL (1.0-4.8) Monocytes # (Auto) 0.5 x10^3/uL (0.0-1.1) Eosinophils # (Auto) 0.2 x10^3/uL (0.0-0.7) Basophils # (Auto) 0.0 x10^3/uL (0.0-0.2) Sodium Level 143 mmol/L (136-145) Potassium Level 4.0 mmol/L (3.5-5.1) Chloride Level 103 mmol/L (98-107) Carbon Dioxide Level 37 mmol/L (21-32) Anion Gap 3 (6-14) Blood Urea Nitrogen 9 mg/dL (8-26) Creatinine 0.8 mg/dL (0.7-1.3) Estimated GFR (Cockcroft-Gault) 124.8 Glucose Level 105 mg/dL (70-99) Calcium Level 9.2 mg/dL (8.5-10.1) Micro Microbiology 01/09/19 Blood Culture - Preliminary, Resulted NO GROWTH AFTER 1 DAY Objective Assessment Infected ulcer right leg Severe chronic lymphedema BLE CHF Morbid obesity, BMI 63 HTN Plan Plan of Care Rocephin and add Doxycycline f/u cultures wound care team following wt loss Thank you [id number] Patient seen and examined. Chart reviewed in detail. 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 Agree with above plan. XIN VASQUEZ APRN Jan 10, 2019 16:31 YING BARBOZA MD Jan 10, 2019 21:18
--- NOTE | 2019-01-10 16:48 | CONS ---
DATE OF CONSULTATION: 01/10/2019 REFERRING PHYSICIAN: Salome Cali MD. REASON FOR CONSULTATION: Right leg wound. HISTORY OF PRESENT ILLNESS: This patient is a 48-year-old male, nondiabetic with a history of chronic lymphedema of lower extremities bilaterally, who presented with a right leg wound with maggots. He says he first noticed the wound about two weeks ago and it was not until the last two days or so, it has been draining. He says it may be an insect bite, but not sure. He denies trauma. He denies a previous wound. Denies fevers, chills, sweats or pain. An ultrasound study was significantly limited without gross evidence of DVT involving either lower extremity. An anaerobic - aerobic culture was obtained. He is currently on ceftriaxone. ID has been asked to consult. PAST MEDICAL HISTORY: Morbid obesity with BMI 63, hypertension and sleep apnea. PAST SURGICAL HISTORY: No significant past surgical history. FAMILY HISTORY: Hypertension. SOCIAL HISTORY: The patient lives at home. He is a smoker. ALLERGIES: No known drug allergies. MEDICATIONS: Ceftriaxone. Other medications are available and have been reviewed on the MAR. REVIEW OF SYSTEMS: The patient is hypoxic requiring supplemental oxygen. He denies chest discomfort or cough. He denies difficulty walking. Denies nausea, vomiting or diarrhea. All other review of systems is negative. PHYSICAL EXAMINATION: VITAL SIGNS: Temperature is 98.4, blood pressure 166/90, heart rate 91, respiratory rate 23, pulse oximetry is 90% on simple mask. GENERAL: The patient is propped up in bed, alert and playing with a toddler. HEENT: Pupils equally round. Oropharynx pink and moist. LUNGS: Clear to auscultation. HEART: Distant heart tones. ABDOMEN: Obese, soft and nontender. Bowel sounds present. EXTREMITIES: Severe chronic lymphedema, lower extremities bilaterally with venous stasis changes. On the posterior lateral aspect of his right calf, he has a superficial ulcer, somewhat boggy with serous drainage. SKIN: Warm to touch. NEUROLOGIC: Alert and answering questions appropriately. PERIPHERAL: IV looks okay. LABORATORY DATA: WBC 7.5, hemoglobin 15.3, platelets 215,000. Sodium 143, potassium 4.0, creatinine 0.8, BUN 9, glucose 105, lactic acid 1.2, total bilirubin 0.5, AST 14, ALT 20, albumin 3.3, procalcitonin less than 0.10. INR 1.3. Venous ultrasound per HPI. Chest x-ray showed enlarged cardiomediastinal silhouette with mild pulmonary vascular congestion as may be seen with congestive heart failure. Chest CTA showed no evidence of pulmonary embolism. Wound and blood cultures pending. IMPRESSION: 1. Infected ulcer, right leg. 2. Severe chronic lymphedema, lower extremities bilaterally. 3. Congestive heart failure. 4. Morbid obesity with a body mass index of 63. 5. Hypertension. PLAN: Continue the Rocephin and add doxycycline. Further antibiotic modification pending culture results and response to treatment. Wound care team following. Weight loss recommended. Thank you, Dr. Cali for asking us to participate in this patient's care. Should you have further questions or concerns, please call. YING BARBOZA MD DR: SANDRA/vidya JOB#: [id number] / [id number]
[2019-01-10] MEDS: DOXYCYCLINE HYCLATE 100 MG TABLET PO SCH (17:37)
[2019-01-10 19:00] VITALS: BP 148/85
[2019-01-10 22:36] VITALS: BP 153/76
[2019-01-11 04:00] VITALS: BP 130/80
[2019-01-11] MEDS: IPRATRPIUM/ALBUTEROL 0.5/2.5MG 3 ML NEBU. NEB SCH ×4 (07:34→21:48)
--- NOTE | 2019-01-11 07:58 | PDOC ---
Provider Note Provider Note [id number] hypoxia chronic multifactorial gladis/ohs ?copd morbid obesity start bipap during sleep abg 6 min walk at dc BD ?echo SAFIA WISEMAN MD Jan 11, 2019 07:58
[2019-01-11 07:59] VITALS: BP 146/98
[2019-01-11] MEDS: amLODIPine BESYLATE 10 MG TABLET PO SCH (08:38)
[2019-01-11] MEDS: DOXYCYCLINE HYCLATE 100 MG TABLET PO SCH ×2 (08:38→21:28)
[2019-01-11] MEDS: LISINOPRIL 20 MG TABLET PO SCH (08:39)
[2019-01-11] MEDS: CARVEDILOL 6.25 MG TABLET. PO SCH (08:39)
--- NOTE | 2019-01-11 09:28 | CONS ---
DATE OF CONSULTATION: 01/11/2019 I was asked to see this 48-year-old gentleman for hypoxemia. HISTORY OF PRESENT ILLNESS: This is a morbidly obese gentleman, who presented to the Emergency Room for having bugs on his lower extremity wound. He has gained about 40 pounds over the past 5 years. His exercise tolerance is about 20 feet. He has chronic shortness of breath, currently is not worse than before. He does have daily cough with sputum production, which is not worse. He denies chest pain. He has occasional runny nose. PAST MEDICAL HISTORY: Hypertension, obstructive sleep apnea-hypopnea syndrome. He is on CPAP or BiPAP, but he does not use it. He did have sleep study in [place] about 4-5 years ago. SOCIAL HISTORY: History of [id number] smoking, quit smoking about 3 years ago, but he uses e-cigarette. 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 FAMILY HISTORY: There is no history of lung disease. ALLERGIES: No known drug allergies. MEDICATIONS: Currently, he is on DuoNeb, doxycycline, Rocephin, lisinopril, Lovenox 60 mg subcutaneously every 12, Coreg, nicotine patch and Norvasc. REVIEW OF SYSTEMS: As mentioned as above. He has snoring and excessive daytime sleepiness. He has chronic lower extremity edema. Other systems are otherwise negative. PHYSICAL EXAMINATION: GENERAL: This is a morbidly obese gentleman. VITAL SIGNS: His O2 saturation on 3 liters of oxygen 94%, respiratory rate 22, heart rate 73, blood pressure 130/80, temperature 98.5, maximum temperature 100.2. HEENT: Normocephalic, atraumatic. Pupils equal, round, reactive to light. There is shallow oropharynx. Nose is clear. NECK: Short, thick neck. No thyromegaly or lymphadenopathy. CARDIOVASCULAR: Distant heart sounds, regular rate and rhythm. PMI is nondisplaced. CHEST: Inspection is normal. LUNGS: There are diminished breath sounds, dullness at the bases. ABDOMEN: Soft and obese. Bowel sounds are good. EXTREMITIES: There is no edema. Dressing is in place on right leg. SKIN: Chronic changes. NEUROLOGIC: Alert and oriented. LABORATORY DATA: I reviewed the following lab data: CT angiogram of the chest was a limited study, no central pulmonary embolism noted. There is dilatation of aortic root, ascending thoracic aorta, hepatic steatosis, atelectasis, fibrotic changes in lower lobe bilaterally which is mild, distention of stomach. Lower extremity venous Doppler, limited no DVT. Sodium 143, potassium 4, chloride 103, CO2 37, BUN 9, creatinine 0.8, glucose 105. Procalcitonin less than 0.1. Lactic acid 1.2. IMPRESSION: 1. Hypoxemia. I suspect it is chronic due to obesity hypoventilation syndrome, obstructive sleep apnea-hypopnea syndrome and probably chronic obstructive pulmonary disease, cannot rule out congestive heart failure versus others. 2. Abnormal CT of the chest. 3. Obstructive sleep apnea-hypopnea syndrome. 4. Right leg wound. 5. Morbid obesity with body mass index of 63. 6. Hypertension. PLAN AND RECOMMENDATIONS: 1. Titrate FiO2 to keep O2 saturation 90%. We will do ABG. 2. I have discussed obstructive sleep apnea-hypopnea syndrome, the importance of treatment. 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 I will start him on BiPAP empirically 06/14, rate of 10. I have advised him to use his home CPAP or BiPAP during sleep when he is at home. 3. I agree with bronchodilator. 4. PFTs as an outpatient. 5. I do recommend an echocardiogram. 6. I will check BNP. 7. Continue antibiotic per ID. 8. Continue Lovenox for DVT prophylaxis. 9. Lose weight and exercise. 10. I have advised him to stop using e-cigarettes or any nicotine products. 11. The findings and recommendations were discussed with the patient. He understood and agreed to proceed with the plan. I have answered all of his questions. Thank you very much for allowing me to participate in care of this very nice gentleman. SAFIA WISEMAN M.D. : Lainey JOB#: [id number] / [id number] [facility]ER[facility]
[2019-01-11] MEDS: cefTRIAXone IV Push 1 GM VIAL. IVP SCH (11:00)
[2019-01-11 11:59] VITALS: BP 144/88
--- NOTE | 2019-01-11 12:07 | PDOC2 ---
CONSULT Date of Consult Date of Consult DATE: 01/11/19 TIME: 12:07 Reason for Consult Reason for Consult: Congestive heart failure Referring Physician Referring Physician: Dr. Cali Identification/Chief Complaint Chief Complaint Edema Source Source: Chart review, Patient History of Present Illness Reason for Visit: 48-year-old male with history of lymphedema presented with worsening edema bilateral lower extremities and a wound on the right calf. ER reported bugs/maggots in the wound. Patient has history of noncompliance and does not follow up with physicians. He complained of dyspnea on exertion but denied any chest pain, palpitations or syncope. Past Medical History Cardiovascular: HTN Pulmonary: No pertinent hx GI: No pertinent hx Heme/Onc: No pertinent hx Hepatobiliary: No pertinent hx Psych: No pertinent hx Rheumatologic: No pertinent hx Infectious disease: No pertinent hx Past Surgical History Past Surgical History: No pertinent history Family History Family History: Hypertension Social History <1 pack per day ALCOHOL: none Drugs: None Current Problem List Problem List Problems Medical Problems: (1) Infestation, maggot Status: Acute (2) Wound of right lower extremity Status: Acute Current Medications Current Medications Current Medications Morphine Sulfate (Morphine Sulfate) 2 mg PRN Q15MIN PRN IV/SQ PAIN GREATER THAN 3/10; Start 01/09/19 at 12:15; Stop 01/10/19 at 07:43; Status DC Ceftriaxone Sodium (Rocephin) 1 gm 1X ONCE IVP Last administered on 01/09/19at 12:38; Start 01/09/19 at 12:45; Stop 01/09/19 at 12:46; Status DC Ondansetron HCl (Zofran) 4 mg PRN Q8HRS PRN IV NAUSEA/VOMITING; Start 01/09/19 at 13:45; Stop 01/10/19 at 13:44; Status DC Morphine Sulfate (Morphine Sulfate) 2 mg PRN Q2HR PRN IV PAIN; Start 01/09/19 at 13:45; Stop 01/10/19 at 13:44; Status DC Amlodipine Besylate (Norvasc) 10 mg DAILY PO Last administered on 01/11/19at 08:38; Start 01/09/19 at 15:15 Nicotine (Nicoderm Cq 21mg) 1 patch PRN DAILY PRN TD SMOKING CESSATION 1ST CHOICE; Start 01/09/19 at 15:15 Nicotine Polacrilex (Nicorette Gum) 1 each PRN Q1HR PRN BC SMOKING CESSATION 2ND CHOICE; Start 01/09/19 at 15:15 Carvedilol (Coreg) 6.25 mg BIDWMEALS PO Last administered on 01/11/19at 08:39; Start 01/09/19 at 15:30; Stop 01/11/19 at 09:35; Status DC Enoxaparin Sodium (Lovenox Per Pharmacy Prophylaxis Dosing) 1 each PRN DAILY PRN MC SEE COMMENTS; Start 01/09/19 at 15:30 Enoxaparin Sodium (Lovenox 60mg Syringe) 60 mg Q12HR SQ Last administered on 01/11/19at 08:40; Start 01/09/19 at 21:00 Lisinopril (Prinivil) 20 mg DAILY PO Last administered on 01/11/19at 08:39; Start 01/10/19 at 10:45; Stop 01/11/19 at 09:35; Status DC Ceftriaxone Sodium (Rocephin) 1 gm Q24H IVP Last administered on 01/11/19at 11:00; Start 01/10/19 at 11:00 Albuterol/ Ipratropium (Duoneb) 3 ml 1X ONCE NEB ; Start 01/10/19 at 11:15; Stop 01/10/19 at 11:17; Status DC Albuterol/ Ipratropium (Duoneb) 3 ml RTQID NEB Last administered on 01/11/19at 07:34; Start 01/10/19 at 12:00 Iohexol (Omnipaque 350 Mg/ml) 100 ml 1X ONCE IV Last administered on 01/10/19at 13:30; Start 01/10/19 at 11:30; Stop 01/10/19 at 11:32; Status DC Info (CONTRAST GIVEN -- Rx MONITORING) 1 each PRN DAILY PRN MC SEE COMMENTS; Start 01/10/19 at 11:45; Stop 01/12/19 at 11:44 Doxycycline Hyclate (Vibra-Tab) 100 mg BID PO Last administered on 01/11/19at 08:38; Start 01/10/19 at 17:00 Carvedilol (Coreg) 3.125 mg BIDWMEALS PO ; Start 01/11/19 at 17:00 Lisinopril (Prinivil) 10 mg DAILY PO ; Start 01/12/19 at 09:00 Lactobacillus Rhamnosus (Culturelle) 1 cap BID PO ; Start 01/11/19 at 21:00 Allergies Allergies: Coded Allergies: No Known Drug Allergies (Unverified , 01/09/19) ROS PSYCHOLOGICAL ROS: No: Hallucinations Eyes: No Loss of vision HEENT: No: Epistaxis Respiratory: YES: Shortness of breath; No: Hemoptysis Cardiovascular: yes Edema; No Chest Pain Gastrointestinal: No Vomiting, No Diarrhea Genitourinary: No Hematuria Neurological: No Seizures Physical Exam General: Alert, mild distress HEENT: Atraumatic, PERRLA Lungs: Clear to auscultation Heart: Regular rate Abdomen: Soft, No tenderness Extremities: Other (2+ pitting edema with chronic changes and nonhealing wound that has been bandaged right leg) Psych/Mental Status: Mental status NL Vitals VITALS Vital Signs Date Time Temp Pulse Resp B/P (MAP) Pulse Ox O2 Delivery O2 Flow Rate FiO2 01/11/19 08:39 73 146/98 01/11/19 08:00 Nasal Cannula 2.0 01/11/19 07:59 98.2 19 91 98.2 Labs Labs Laboratory Tests Test 01/09/19 16:05 01/10/19 03:30 Lactic Acid Level 1.2 mmol/L (0.4-2.0) White Blood Count 7.5 x10^3/uL (4.0-11.0) Red Blood Count 6.01 x10^6/uL (4.30-5.70) Hemoglobin 15.3 g/dL (13.0-17.5) Hematocrit 48.9 % (39.0-53.0) Mean Corpuscular Volume 81 fL (79-100) Mean Corpuscular Hemoglobin 25 pg (25-35) Mean Corpuscular Hemoglobin Concent 31 g/dL (31-37) Red Cell Distribution Width 17.4 % (11.5-14.5) Platelet Count 215 x10^3/uL (140-400) Neutrophils (%) (Auto) 79 % (31-73) Lymphocytes (%) (Auto) 12 % (24-48) Monocytes (%) (Auto) 7 % (0-9) Eosinophils (%) (Auto) 2 % (0-3) Basophils (%) (Auto) 0 % (0-3) Neutrophils # (Auto) 5.9 x10^3uL (1.8-7.7) Lymphocytes # (Auto) 0.9 x10^3/uL (1.0-4.8) Monocytes # (Auto) 0.5 x10^3/uL (0.0-1.1) Eosinophils # (Auto) 0.2 x10^3/uL (0.0-0.7) Basophils # (Auto) 0.0 x10^3/uL (0.0-0.2) Sodium Level 143 mmol/L (136-145) Potassium Level 4.0 mmol/L (3.5-5.1) Chloride Level 103 mmol/L (98-107) Carbon Dioxide Level 37 mmol/L (21-32) Anion Gap 3 (6-14) Blood Urea Nitrogen 9 mg/dL (8-26) Creatinine 0.8 mg/dL (0.7-1.3) Estimated GFR (Cockcroft-Gault) 124.8 Glucose Level 105 mg/dL (70-99) Calcium Level 9.2 mg/dL (8.5-10.1) Assessment/Plan Assessment/Plan 1. Bilateral lower extremity edema most probably chronic lymphedema with mild acute on chronic diastolic heart failure. CTA of the chest did not show any pulmonary embolism. We will diurese gently with Lasix. Continue treatment of nonhealing wound per wound care team. 2. Mild acute on chronic diastolic heart failure based on chest x-ray findings. Diurese gently with Lasix. Check 2-D echo to assess LV systolic function. 3. Abdominal aortic aneurysm, 4.4 cm size. Monitor with serial ultrasounds every year. 4. Hypertension: Better controlled since admission Thank you for your consultation HOPE GARCIA MD Jan 11, 2019 12:07
--- NOTE | 2019-01-11 14:17 | PDOC ---
Infectious Disease Note Subjective Subjective Feeling alright Fever 100.2 last night Vital Sign Vital Signs Vital Signs Date Time Temp Pulse Resp B/P (MAP) Pulse Ox O2 Delivery O2 Flow Rate FiO2 01/11/19 12:30 94 Nasal Cannula 3.0 01/11/19 11:59 98.7 76 20 144/88 (106) 98.7 Physical Exam PHYSICAL EXAM GENERAL: Sitting in the chair, resting quietly, arouses to name HEENT: Pupils equally round. Oropharynx pink and moist. LUNGS: Clear to auscultation. HEART: Distant heart tones. ABDOMEN: Obese, soft and nontender. Bowel sounds present. EXTREMITIES: Severe chronic lymphedema, lower extremities bilaterally with venous stasis changes. Superficial ulcer, somewhat boggy with serous drainage on the posterior lateral aspect of his right calf. SKIN: Warm to touch. NEUROLOGIC: Sleepy, answering questions appropriately. IV looks okay. Labs Lab Laboratory Tests Test 01/11/19 11:25 WB-Jii-R-Type Natriuretic Peptide 59 pg/mL (0-124) Micro Microbiology 01/09/19 Blood Culture - Preliminary, Resulted NO GROWTH AFTER 2 DAY GRAM STAIN RES 2 Final Comment Few gram negative rods. GRAM STAIN RES 3 Final Comment Few gram positive cocci GRAM STAIN RES 4 Final Comment Few gram positive rods. Objective Assessment Infected ulcer right leg - GPC, GNR, GPR Severe chronic lymphedema BLE CHF Morbid obesity, BMI 63 HTN Plan Plan of Care Rocephin and add Doxycycline f/u cultures wound care team following wt loss Dr. Dr. Cali Patient seen and examined. Chart reviewed in detail. Case discussed with ROR ENGINEER. Agree with above plan. XIN VASQUEZ APRN Jan 11, 2019 14:17 YING BARBOZA MD Jan 11, 2019 21:47
--- NOTE | 2019-01-11 15:27 | PDOC ---
PROGRESS NOTES Chief Complaint Chief Complaint accelerated hypertension LE edema, probable diastolic CHF, lee check echo RIght leg wound, consult wound care and ID chronic skin sclerosis from edema, elephantitis appearance of skin morbid obesity, BMI 63 tobacco use d/o (vaping) History of Present Illness History of Present Illness BP better with norvasc will go down on coreg and lisinopril today, hypercarbia from [place] likely cont current pt and OT and lymphedema treatment, cx pending, gm pos cocci, gm neg rods, Vitals Vitals Vital Signs Date Time Temp Pulse Resp B/P (MAP) Pulse Ox O2 Delivery O2 Flow Rate FiO2 01/11/19 12:30 94 Nasal Cannula 3.0 01/11/19 11:59 98.7 76 20 144/88 (106) 98.7 Physical Exam Physical Exam GENERAL: Sitting in the chair, resting quietly, arouses to name HEENT: Pupils equally round. Oropharynx pink and moist. LUNGS: Clear to auscultation. HEART: Distant heart tones. ABDOMEN: Obese, soft and nontender. Bowel sounds present. EXTREMITIES: Severe chronic lymphedema, lower extremities bilaterally with venous stasis changes. Superficial ulcer, somewhat boggy with serous drainage on the posterior lateral aspect of his right calf. SKIN: Warm to touch. NEUROLOGIC: Sleepy, answering questions appropriately. IV looks okay. General: Alert, Oriented X3, Cooperative, No acute distress Heart: Regular rate, No murmurs Abdomen: Soft (very obese, ) Extremities: Other Skin: Other (right LE wound, lateral, skin has chronic thickening and is very dry, elephant type skin, ) Labs LABS Laboratory Tests Test 01/11/19 11:25 FK-Khj-J-Type Natriuretic Peptide 59 pg/mL (0-124) Assessment and Plan Assessmemt and Plan Problems Medical Problems: (1) Infestation, maggot Status: Acute (2) Wound of right lower extremity Status: Acute Comment Review of Relevant I have reviewed the following items peter (where applicable) has been applied. Labs Laboratory Tests Test 01/09/19 16:05 01/10/19 03:30 01/11/19 11:25 Lactic Acid Level 1.2 mmol/L (0.4-2.0) White Blood Count 7.5 x10^3/uL (4.0-11.0) Red Blood Count 6.01 x10^6/uL (4.30-5.70) Hemoglobin 15.3 g/dL (13.0-17.5) Hematocrit 48.9 % (39.0-53.0) Mean Corpuscular Volume 81 fL (79-100) Mean Corpuscular Hemoglobin 25 pg (25-35) Mean Corpuscular Hemoglobin Concent 31 g/dL (31-37) Red Cell Distribution Width 17.4 % (11.5-14.5) Platelet Count 215 x10^3/uL (140-400) Neutrophils (%) (Auto) 79 % (31-73) Lymphocytes (%) (Auto) 12 % (24-48) Monocytes (%) (Auto) 7 % (0-9) Eosinophils (%) (Auto) 2 % (0-3) Basophils (%) (Auto) 0 % (0-3) Neutrophils # (Auto) 5.9 x10^3uL (1.8-7.7) Lymphocytes # (Auto) 0.9 x10^3/uL (1.0-4.8) Monocytes # (Auto) 0.5 x10^3/uL (0.0-1.1) Eosinophils # (Auto) 0.2 x10^3/uL (0.0-0.7) Basophils # (Auto) 0.0 x10^3/uL (0.0-0.2) Sodium Level 143 mmol/L (136-145) Potassium Level 4.0 mmol/L (3.5-5.1) Chloride Level 103 mmol/L (98-107) Carbon Dioxide Level 37 mmol/L (21-32) Anion Gap 3 (6-14) Blood Urea Nitrogen 9 mg/dL (8-26) Creatinine 0.8 mg/dL (0.7-1.3) Estimated GFR (Cockcroft-Gault) 124.8 Glucose Level 105 mg/dL (70-99) Calcium Level 9.2 mg/dL (8.5-10.1) RK-Obu-N-Type Natriuretic Peptide 59 pg/mL (0-124) Laboratory Tests Test 01/11/19 11:25 AE-Ipe-J-Type Natriuretic Peptide 59 pg/mL (0-124) Microbiology 01/09/19 Blood Culture - Preliminary, Resulted NO GROWTH AFTER 1 DAY 01/09/19 Anaerobic/Aerobic Culture, Resulted Pending 01/09/19 Anaerobic Culture Result 1 (WIL), Resulted Pending 01/09/19 Aerobic Culture, Resulted Pending 01/09/19 Aerobic Culture Result 1 (WIL), Resulted Pending 01/09/19 Gram Stain - Final, Resulted 01/09/19 Gram Stain Result 1 (WIL) - Final, Resulted 01/09/19 Gram Stain Result 2 (WIL) - Final, Resulted 01/09/19 Gram Stain Result 3 (WIL) - Final, Resulted 01/09/19 Gram Stain Result 4 (WIL) - Final, Resulted Medications Current Medications Morphine Sulfate (Morphine Sulfate) 2 mg PRN Q15MIN PRN IV/SQ PAIN GREATER THAN 3/10; Start 01/09/19 at 12:15; Stop 01/10/19 at 07:43; Status DC Ceftriaxone Sodium (Rocephin) 1 gm 1X ONCE IVP Last administered on 01/09/19at 12:38; Start 01/09/19 at 12:45; Stop 01/09/19 at 12:46; Status DC Ondansetron HCl (Zofran) 4 mg PRN Q8HRS PRN IV NAUSEA/VOMITING; Start 01/09/19 at 13:45; Stop 01/10/19 at 13:44; Status DC Morphine Sulfate (Morphine Sulfate) 2 mg PRN Q2HR PRN IV PAIN; Start 01/09/19 at 13:45; Stop 01/10/19 at 13:44; Status DC Amlodipine Besylate (Norvasc) 10 mg DAILY PO Last administered on 01/11/19at 08:38; Start 01/09/19 at 15:15 Nicotine (Nicoderm Cq 21mg) 1 patch PRN DAILY PRN TD SMOKING CESSATION 1ST SANCHEZ CE; Start 01/09/19 at 15:15 Nicotine Polacrilex (Nicorette Gum) 1 each PRN Q1HR PRN BC SMOKING CESSATION 2ND CHOICE; Start 01/09/19 at 15:15 Carvedilol (Coreg) 6.25 mg BIDWMEALS PO Last administered on 01/11/19at 08:39; Start 01/09/19 at 15:30; Stop 01/11/19 at 09:35; Status DC Enoxaparin Sodium (Lovenox Per Pharmacy Prophylaxis Dosing) 1 each PRN DAILY PRN MC SEE COMMENTS; Start 01/09/19 at 15:30 Enoxaparin Sodium (Lovenox 60mg Syringe) 60 mg Q12HR SQ Last administered on 01/11/19at 08:40; Start 01/09/19 at 21:00 Lisinopril (Prinivil) 20 mg DAILY PO Last administered on 01/11/19at 08:39; Start 01/10/19 at 10:45; Stop 01/11/19 at 09:35; Status DC Ceftriaxone Sodium (Rocephin) 1 gm Q24H IVP Last administered on 01/11/19at 11:00; Start 01/10/19 at 11:00 Albuterol/ Ipratropium (Duoneb) 3 ml 1X ONCE NEB ; Start 01/10/19 at 11:15; Stop 01/10/19 at 11:17; Status DC Albuterol/ Ipratropium (Duoneb) 3 ml RTQID NEB Last administered on 01/11/19at 12:28; Start 01/10/19 at 12:00 Iohexol (Omnipaque 350 Mg/ml) 100 ml 1X ONCE IV Last administered on 01/10/19at 13:30; Start 01/10/19 at 11:30; Stop 01/10/19 at 11:32; Status DC Info (CONTRAST GIVEN -- Rx MONITORING) 1 each PRN DAILY PRN MC SEE COMMENTS; Start 01/10/19 at 11:45; Stop 01/12/19 at 11:44 Doxycycline Hyclate (Vibra-Tab) 100 mg BID PO Last administered on 01/11/19at 08:38; Start 01/10/19 at 17:00 Carvedilol (Coreg) 3.125 mg BIDWMEALS PO ; Start 01/11/19 at 17:00 Lisinopril (Prinivil) 10 mg DAILY PO ; Start 01/12/19 at 09:00 Lactobacillus Rhamnosus (Culturelle) 1 cap BID PO ; Start 01/11/19 at 21:00 Vitals/I & O Vital Sign - Last 24 Hours 01/10/19 01/10/19 01/10/19 01/10/19 16:17 17:40 19:00 20:20 Temp 98.0 98.0 Pulse 91 81 Resp 24 B/P (MAP) 166/90 148/85 (106) Pulse Ox 86 88 O2 Delivery Room Air Nasal Cannula Nasal Cannula O2 Flow Rate 2.0 01/10/19 01/10/19 01/11/19 01/11/19 20:39 22:36 04:00 07:34 Temp 100.2 98.5 100.2 98.5 Pulse 70 73 Resp 28 22 B/P (MAP) 153/76 (101) 130/80 (97) Pulse Ox 93 88 92 94 O2 Delivery Nasal Cannula Nasal Cannula Nasal Cannula Nasal Cannula O2 Flow Rate 3.0 2.0 4.0 3.0 01/11/19 01/11/19 01/11/19 01/11/19 07:59 08:00 08:38 08:39 Temp 98.2 98.2 Pulse 73 73 73 Resp 19 B/P (MAP) 146/98 (114) 146/98 146/98 Pulse Ox 91 O2 Delivery Nasal Cannula Nasal Cannula O2 Flow Rate 3.0 2.0 01/11/19 01/11/19 01/11/19 08:39 11:59 12:30 Temp 98.7 98.7 Pulse 73 76 Resp 20 B/P (MAP) 146/98 144/88 (106) Pulse Ox 89 94 O2 Delivery Room Air Nasal Cannula O2 Flow Rate 3.0 Intake and Output 01/10/19 01/10/19 01/11/19 14:59 22:59 06:59 Intake Total 400 ml 1150 ml Output Total 500 ml 600 ml Balance -500 ml -200 ml 1150 ml ERROL CASILLAS MD Jan 11, 2019 15:27
[2019-01-11 15:48] VITALS: BP 127/61
[2019-01-11] MEDS: CARVEDILOL 3.125 MG TABLET. PO SCH (17:00)
[2019-01-11 19:30] VITALS: BP 120/48
[2019-01-11] MEDS: LACTOBACILLUS RHAMNOSUS GG 1 CAPSULE. PO SCH (21:28)
[2019-01-11 23:32] VITALS: BP 114/46
[2019-01-12 03:25] VITALS: BP 137/69
[2019-01-12 07:00] VITALS: BP 119/77
[2019-01-12] MEDS: IPRATRPIUM/ALBUTEROL 0.5/2.5MG 3 ML NEBU. NEB SCH ×3 (07:23→15:32)
[2019-01-12] MEDS ORDERED: FUROSEMIDE 40 MG/4 ML VIAL. IVP SCH (09:00)
[2019-01-12] MEDS ORDERED: LISINOPRIL 10 MG TABLET PO SCH (09:00)
[2019-01-12] MEDS: CARVEDILOL 3.125 MG TABLET. PO SCH ×2 (09:14→17:21)
[2019-01-12] MEDS: LACTOBACILLUS RHAMNOSUS GG 1 CAPSULE. PO SCH (09:15)
[2019-01-12] MEDS: DOXYCYCLINE HYCLATE 100 MG TABLET PO SCH (09:16)
[2019-01-12] MEDS: amLODIPine BESYLATE 10 MG TABLET PO SCH (09:16)
[2019-01-12 10:53] VITALS: BP 124/72
--- NOTE | 2019-01-12 11:14 | NUR ---
SW consulted for dc planning. Chart reviewed and discussed with RN. Pt lives at home. ID, wound care currently following pt and Pt is on IV abx. Per PT/OT evaluation pt does not have any skilled needs. No SW needs noted at this time. SW will be available for any dc needs.
[2019-01-12] MEDS: cefTRIAXone IV Push 1 GM VIAL. IVP SCH (11:49)
--- NOTE | 2019-01-12 13:19 | PDOC ---
PULMONARY PROGRESS NOTES Subjective no soa full awake refuses BIPAP Vitals Vital Signs Date Time Temp Pulse Resp B/P (MAP) Pulse Ox O2 Delivery O2 Flow Rate FiO2 01/12/19 11:25 97 Nasal Cannula 4.0 01/12/19 10:53 97.9 93 20 124/72 (89) 97.9 General: Alert, No acute distress Lungs: Clear Cardiovascular: S1 Abdomen: Soft, Other (obese) Extremities: Other (lymphedema) Labs Laboratory Tests Test 01/11/19 11:25 PQ-Sen-J-Type Natriuretic Peptide 59 pg/mL (0-124) Impression . 1. Hypoxemia. I suspect it is chronic due to obesity hypoventilation syndrome, obstructive sleep apnea-hypopnea syndrome and probably chronic obstructive pulmonary disease, 2. Abnormal CT of the chest c/w pulmonary HTN 3. Obstructive sleep apnea-hypopnea syndrome./ OHS, does not want SS or CPAP 4. Right leg wound. 5. Morbid obesity with body mass index of 63. 6. Hypertension. Plan . 1. Titrate FiO2 to keep O2 saturation 90%. 2. I have discussed obstructive sleep apnea-hypopnea syndrome, the importance of treatment. If untreated increased GROUND IN[employer] and cardiovascular morbidity or mortality. He does not want CPAP./ BIPAP 3. bronchodilator. 4. PFTs as an outpatient. 5. I do recommend an echocardiogram. 7. Continue antibiotic per ID. 8. Continue Lovenox for DVT prophylaxis. 9. Lose weight and exercise. 10. I have advised him to stop using e-cigarettes or any nicotine products. 11. The findings and recommendations were discussed with the patient. He understood and agreed to proceed with the plan. I have answered all of his questions. from [facility] he can go home MARIO ALLEN MD Jan 12, 2019 13:19
--- NOTE | 2019-01-12 13:39 | PDOC ---
Infectious Disease Note Subjective Subjective Doing alright No further fever last 24 hours Denies pain ROS ROS per HPI Vital Sign Vital Signs Vital Signs Date Time Temp Pulse Resp B/P (MAP) Pulse Ox O2 Delivery O2 Flow Rate FiO2 01/12/19 11:25 97 Nasal Cannula 4.0 01/12/19 10:53 97.9 93 20 124/72 (89) 97.9 Physical Exam PHYSICAL EXAM GENERAL: Sitting on the side of the bed, eating [place] LUNGS: Clear to auscultation. HEART: Distant heart tones. ABDOMEN: Obese, soft and nontender. Bowel sounds present. EXTREMITIES: Severe chronic lymphedema, lower extremities bilaterally with venous stasis changes. Superficial ulcer, somewhat boggy with serous drainage on the posterior lateral aspect of his right calf, currently bandaged SKIN: Warm to touch. NEUROLOGIC: Alert, answering questions appropriately. Labs Micro Microbiology 01/09/19 Blood Culture - Preliminary, Resulted NO GROWTH AFTER 2 DAY AEROBIC RES 1 Preliminary Proteus mirabilis AEROBIC RES 2 Preliminary Gram negative rods AEROBIC RES 3 Preliminary Mixed skin tierra GRAM STAIN RES 2 Final Few gram negative rods. GRAM STAIN RES 3 Final Comment Few gram positive cocci GRAM STAIN RES 4 Final Comment Few gram positive rods. GRAM STAIN RES 2 Final Comment Few gram negative rods. GRAM STAIN RES 3 Final Comment Few gram positive cocci GRAM STAIN RES 4 Final Comment Few gram positive rods. Objective Assessment Infected ulcer right leg - GPC, GNR, GPR --mixed tierra, Proteus, GNR Severe chronic lymphedema BLE CHF Morbid obesity, BMI 63 HTN Hypoxemia, on supplemental O2 SHARON Plan Plan of Care Rocephin and Doxycycline f/u cultures wound care team following wt loss D/w nursing Discharge prior to my visit Attending Co-Sign Attending Co-Sign The patient was seen and interviewed as well as examined at the bedside. The chart was reviewed. The case was discussed. Agree with the plan of care. XIN VASQUEZ APRN Jan 12, 2019 13:39 LUCILA CARDENAS MD Jan 12, 2019 18:50
[2019-01-12] MEDS ORDERED: DOXY100T PO (13:40)
[2019-01-12] MEDS ORDERED: LISI-338 PO (13:41)
[2019-01-12] MEDS ORDERED: AMLO10TA8 PO (13:41)
[2019-01-12] MEDS ORDERED: AMLO5TAB4 PO (13:42)
[2019-01-12] MEDS ORDERED: PERFLUTREN PROTEIN-A MICROSPHR 0.22 MG/ML 3 ML VIAL. IV ONE ×2 (14:00→14:40)
--- NOTE | 2019-01-12 14:03 | PDOC3 ---
Discharge Summary Visit Information Date of Admission: Jan 09, 2019 Date of Discharge: Jan 12, 2019 Admitting Diagnosis: leg wound and pain Final Diagnosis accelerated hypertension LE edema, probable diastolic CHF, lee check echo RIght leg wound, consult wound care and ID chronic skin sclerosis from edema, elephantitis appearance of skin morbid obesity, BMI 63 tobacco use d/o (vaping) Problems Medical Problems: (1) Infestation, maggot Status: Acute (2) Wound of right lower extremity Status: Acute Brief Hospital Course Allergies Allergies Coded Allergies Type Severity Reaction Last Updated Verified No Known Drug Allergies 01/09/19 No Vital Signs Vital Signs Date Time Temp Pulse Resp B/P (MAP) Pulse Ox O2 Delivery O2 Flow Rate FiO2 01/12/19 11:25 97 Nasal Cannula 4.0 01/12/19 10:53 97.9 93 20 124/72 (89) 97.9 Lab Results Laboratory Tests Test 01/11/19 11:25 ZC-Fwy-[id number]-Type Natriuretic Peptide 59 pg/mL (0-124) Brief Hospital Course Mr. Rios is a 48 old admit with marked HTN, blood pressure 220 dyspnea and hypoia BP better with norvasc hypercarbia from [place] likely wound cx pending, gm pos cocci, gm neg rods, Discharge Information Condition at Discharge: Improved Follow Up: Weeks Disposition/Orders: D/C to Home Scheduled Amlodipine Besylate (Norvasc) 5 Mg Tablet, 1 TAB PO DAILY for hypertension, #30 Prescribed by: ERROL CASILLAS on 01/12/19 1342 Doxycycline Hyclate (Doxycycline Hyclate) 100 Mg Tablet, 100 MG PO BID for skin wound, #14 Prescribed by: ERROL CASILLAS on 01/12/19 1340 Lisinopril (Lisinopril) 5 Mg Tablet, 1 TAB PO DAILY for hypertension, #30 Prescribed by: ERROL CASILLAS on 01/12/19 1341 Patient Instructions Patient Instructions > 30 min ERROL CASILLAS MD Jan 12, 2019 14:03
[2019-01-12 15:00] VITALS: BP 120/70
--- NOTE | 2019-01-12 15:04 | CARD ---
MR#: [id number] Date of Study: 01/12/2019 Ordering Physician: ERROL CASILLAS, Referring Physician: ERROL CASILLAS, Tech: Calli Rubi RDCS APPROVED REPORT EXAM: Two-dimensional and M-mode echocardiogram with Doppler, color Doppler with contrast. Other Information Quality : Technically LimitedHR: 79bpm Rhythm : NSRTechnically limited study due to body habitus. INDICATION Congenital Heart Disease Echo Enhancing Agent Indication: Endocardial border delineation Agent/Amount Used: Optison 1mL 2D DIMENSIONS RVDd3.9 (2.9-3.5cm)Left Atrium(2D)4.6 (1.6-4.0cm) IVSd1.7 (0.7-1.1cm)Aortic Root(2D)3.8 (2.0-3.7cm) LVDd5.9 (3.9-5.9cm)LVOT Diameter2.6 (1.8-2.4cm) PWd1.5 (0.7-1.1cm)LVDs4.0 (2.5-4.0cm) FS (%) 32.7 %SV105.1 ml LVEF(%)60.3 (>50%) M-Mode DIMENSIONS Left Atrium(MM)4.44 (2.5-4.0cm)Aortic Root4.20 (2.2-3.7cm) Aortic Valve AoV Peak Tanmay.188.1cm/sAoV VTI32.5cm AO Peak GR.14.2mmHgLVOT Peak Tanmay.120.4cm/s AO Mean GR.8mmHgAVA (VMAX)3.51cm2 Mitral Valve MV E Zukjphds99.6cm/sMV DECEL [id number] MV A Cnwnciqh73.2cm/sE/A Ratio1.4 Pulmonary Valve PV Peak Nvkpwlwa541.4cm/s Tricuspid Valve TR P. Kydmioir030ou/sRAP [id number] TR Peak Gr.59xmMmHRKP65cpDl LEFT VENTRICLE The Left Ventricle is mildly dilated. There is moderate to severe concentric left ventricular hypertr ophy. The left ventricular systolic function is normal and the ejection fraction is within normal ran ge. The Ejection Fraction is 55-60%. There is normal LV segmental wall motion. Transmitral Doppler fl ow pattern is Grade II-pseudonormal filling dynamics. RIGHT VENTRICLE The right ventricle is mildly dilated. There is normal right ventricular wall thickness. The right ve ntricular systolic function is normal. ATRIA The left atrium is mildly dilated. The right atrium is mildly dilated. The interatrial septum is inta ct with no evidence for an atrial septal defect or patent foramen ovale as noted on 2-D or Doppler im aging. AORTIC VALVE The aortic valve is normal in structure and function. The aortic valve is trileaflet. Doppler and Col or Flow revealed no significant aortic regurgitation. There is no significant aortic valvular stenosi s. There is no aortic valvular vegetation. MITRAL VALVE The mitral valve is normal in structure and function. There is no evidence of mitral valve prolapse. There is no mitral valve stenosis. Doppler and Color Flow revealed no mitral valve regurgitation note d. TRICUSPID VALVE The tricuspid valve is normal in structure and function. Doppler and Color Flow revealed trace tricus pid regurgitation. The PA pressure was estimated at 33 mmHg. There is no tricuspid valve prolapse or vegetation. There is no tricuspid valve stenosis. PULMONIC VALVE The pulmonic valve is not well visualized. GREAT VESSELS The aortic root is mildly enlarged. The ascending aorta is normal in size. The IVC is normal in size and collapses >50% with inspiration. PERICARDIAL EFFUSION There is no evidence of significant pericardial effusion. Critical Notification Critical Value: No <Conclusion> The left ventricular systolic function is normal and the ejection fraction is within normal range. Th e Ejection Fraction is 55-60%. There is normal LV segmental wall motion. Signed by : Jacques Cerda, Electronically Approved : 01/12/2019 15:03:22
--- NOTE | 2019-01-12 16:15 | PDOC ---
PROGRESS NOTES Subjective Subjective Feeling better today. Objective Objective Vital Signs Date Time Temp Pulse Resp B/P (MAP) Pulse Ox O2 Delivery O2 Flow Rate FiO2 01/12/19 15:32 100 Room Air 01/12/19 11:25 4.0 01/12/19 10:53 97.9 93 20 124/72 (89) 97.9 Intake and Output 01/12/19 07:00 Intake Total 550 ml Output Total 850 ml Balance -300 ml Intake Oral 550 ml Output Urine Total 850 ml Physical Exam Abdomen: Soft, No tenderness Heart: Regular rate Extremities: Other (2+ pitting edema with chronic changes and nonhealing wound that has been bandaged right leg) General: Alert, mild distress HEENT: Atraumatic, PERRLA Lungs: Clear to auscultation Neuro: Normal gait, Normal speech Psych/Mental Status: Mental status NL Skin: Other (right LE wound, lateral, skin has chronic thickening and is very dry, elephant type skin, ) Assessment Assessment 1. Bilateral lower extremity edema most probably chronic lymphedema with mild acute on chronic diastolic heart failure. CTA of the chest did not show any pulmonary embolism. Diurese gently with Lasix. Continue treatment of nonhealing wound per wound care team. 2. Mild acute on chronic diastolic heart failure, better compensated with diuresis. 2-D echo showed normal LV systolic function. 3. Abdominal aortic aneurysm, 4.4 cm size. Monitor with serial ultrasounds every year. 4. Hypertension: Better controlled since admission Follow-up with our office in 1 month. Plan Plan of Care Problems Medical Problems: (1) Infestation, maggot Status: Acute (2) Wound of right lower extremity Status: Acute Comment Review of Relevant I have reviewed the following items peter (where applicable) has been applied. Labs Microbiology 01/09/19 Blood Culture - Preliminary, Resulted NO GROWTH AFTER 3 DAYS 01/09/19 Anaerobic/Aerobic Culture - Preliminary, Resulted 01/09/19 Anaerobic Culture Result 1 (WIL) - Preliminary, Resulted 01/09/19 Aerobic Culture - Preliminary, Resulted 01/09/19 Aerobic Culture Result 1 (WIL) - Preliminary, Resulted 01/09/19 Aerobic Culture Result 2 (WIL) - Preliminary, Resulted 01/09/19 Aerobic Culture Result 3 (WIL) - Preliminary, Resulted 01/09/19 Gram Stain - Final, Resulted 01/09/19 Gram Stain Result 1 (WIL) - Final, Resulted 01/09/19 Gram Stain Result 2 (WIL) - Final, Resulted 01/09/19 Gram Stain Result 3 (WIL) - Final, Resulted 01/09/19 Gram Stain Result 4 (IWL) - Final, Resulted Medications Current Medications Carvedilol (Coreg) 3.125 mg BIDWMEALS PO Last administered on 01/12/19 09:14; Start 01/11/19 at 17:00 Furosemide (Lasix) 40 mg DAILY IVP Last administered on 01/12/19 09:16; Start 01/12/19 at 09:00 Lactobacillus Rhamnosus (Culturelle) 1 cap BID PO Last administered on 01/12/19 09:15; Start 01/11/19 at 21:00 Lisinopril (Prinivil) 10 mg DAILY PO Last administered on 01/12/19at 09:15; Start 01/12/19 at 09:00 Perflutren Protein Type A Microsphe (Optison) 0.66 mg 1X ONCE IV Last administered on 01/12/19at 14:42; Start 01/12/19 at 14:00; Stop 01/12/19 at 14:01; Status DC Perflutren Protein Type A Microsphe (Optison) 0.66 mg STK-MED ONCE IV ; Start 01/12/19 at 14:40; Stop 01/12/19 at 14:41; Status DC Vitals/I & O Vital Sign - Last 24 Hours 01/11/19 01/11/19 01/11/19 01/11/19 17:00 19:30 19:50 21:50 Temp 98.5 98.5 Pulse 72 75 Resp 22 B/P (MAP) 127/61 120/48 (72) Pulse Ox 93 96 O2 Delivery Nasal Cannula Nasal Cannula Nasal Cannula O2 Flow Rate 2.0 2.0 4.0 01/11/19 01/12/19 01/12/19 01/12/19 23:32 03:25 07:00 07:24 Temp 98.3 97.5 98.0 98.3 97.5 98.0 Pulse 68 84 91 Resp 22 22 20 B/P (MAP) 114/46 (68) 137/69 (91) 119/77 (91) Pulse Ox 95 92 92 92 O2 Delivery Nasal Cannula BiPAP/CPAP Nasal Cannula Nasal Cannula O2 Flow Rate 2.0 2.0 4.0 01/12/19 01/12/19 01/12/19 01/12/19 08:00 09:14 09:15 09:16 Pulse 91 91 91 B/P (MAP) 119/77 119/77 119/77 O2 Delivery Nasal Cannula O2 Flow Rate 2.0 01/12/19 01/12/19 01/12/19 10:53 11:25 15:32 Temp 97.9 97.9 Pulse 93 Resp 20 B/P (MAP) 124/72 (89) Pulse Ox 94 97 100 O2 Delivery Room Air Nasal Cannula Room Air O2 Flow Rate 4.0 Intake and Output 01/11/19 01/11/19 01/12/19 15:00 23:00 07:00 Intake Total 400 ml 150 ml Output Total 350 ml 500 ml Balance 50 ml -350 ml HOPE GARCIA MD Jan 12, 2019 16:15
[2019-01-12 17:21] VITALS: BP 120/70
--- NOTE | 2019-01-12 17:55 | NUR ---
Prescriptions called into [facility] on [address] IV removed, cath tip intact. Wound photographed and dressing changed. Discharge instructions given to patient and sister. Additional questions answered. Pt ambulated and left via private vehicle.
== END 2019-01-12 18:00 | disposition home or self-care (01) | DRG 292 ==
LOC: ER 10:44 → 5 SOUTH 13:15
PROVIDERS: ADMIT Internal Medicine; ATTEND Internal Medicine
DX: I11.0 Hypertensive heart disease with heart failure (principal); L97.919 Non-pressure chronic ulcer of unspecified part of right lower leg with unspecified severity; E66.2 Morbid (severe) obesity with alveolar hypoventilation; Z68.44 Body mass index [BMI] 60.0-69.9, adult; I50.33 Acute on chronic diastolic (congestive) heart failure; I89.0 Lymphedema, not elsewhere classified; F17.210 Nicotine dependence, cigarettes, uncomplicated; R09.02 Hypoxemia; I71.4 Abdominal aortic aneurysm, without rupture; I27.20 Pulmonary hypertension, unspecified; Z82.49 Family history of ischemic heart disease and other diseases of the circulatory system; Z91.19 Patient's noncompliance with other medical treatment and regimen
CPT/HCPCS: 99285; C8929; 31622; 36415; 71045; 71275; 80048; 80053; 83605; 83880; 84145; 85025; 85610; 85730; 87040; 87071; 87075; 93970; 94640; 94660; 94760; 96374; J0696; J1650; J1940; J7620; Q9956; Q9967; 97116; 97530

== ENCOUNTER 2019-03-09 20:56 | Inpatient (IN) | payer SELFPAY ==
[~2019-03-09] VITALS: Ht 188 cm; Wt 178.7 kg
[~2019-03-09 20:56] MED LIST: AMLO10TA8 PO; AMLO5TAB4 PO; DOXY100T PO; LISI-338 PO
[2019-03-09 21:27] LABS: BASO % 0 % (0-3); EOS # 0.1 x10^3/uL (0.0-0.7); EOS % 1 % (0-3); HEMATOCRIT 51.8 % (39.0-53.0); HEMOGLOBIN 15.7 g/dL (13.0-17.5); LYMPH # 0.9 x10^3/uL (1.0-4.8); LYMPH % 8 % (24-48); MEAN CORPUSCULAR HEMOGLOBIN 24 pg (25-35); MEAN CORPUSCULAR HGB CONC 30 g/dL (31-37); MEAN CORPUSCULAR VOLUME 80 fL (79-100); MONO # 0.8 x10^3/uL (0.0-1.1); MONO % 7 % (0-9); NEUT # 9.8 x10^3/uL (1.8-7.7); NEUT % 84 % (31-73); PLATELET COUNT 212 x10^3/uL (140-400); RED BLOOD COUNT 6.48 x10^6/uL (4.30-5.70); RED CELL DISTRIBUTION WIDTH 19.2 % (11.5-14.5); WHITE BLOOD COUNT 11.5 x10^3/uL (4.0-11.0)
[2019-03-09] MEDS ORDERED: IPRATRPIUM/ALBUTEROL 0.5/2.5MG 3 ML NEBU. NEB ONE ×3 (21:30→23:00)
[2019-03-09 21:45] LABS: CALCIUM 9.5 mg/dL (8.5-10.1); CREATININE 1.4 mg/dL (0.7-1.3); GFR 65.4; POTASSIUM 4.2 mmol/L (3.5-5.1)
[2019-03-09 21:52] LABS: ALBUMIN 3.4 g/dL (3.4-5.0); ALBUMIN/GLOBULIN RATIO 0.8 (1.0-1.7); MAGNESIUM 2.2 mg/dL (1.8-2.4); TOTAL BILIRUBIN 1.9 mg/dL (0.2-1.0); TOTAL PROTEIN 7.7 g/dL (6.4-8.2)
[2019-03-09 21:54] LABS: BASE EXCESS ABG 4 mmol/L (-3-3); HCO3 ABG 39 mmol/L (21-28); PO2 ABG 71 mmHg (75-108); SAT O2 ABG 87 % (92-99)
[2019-03-09 21:55] LABS: PCO2 ABG 127 mmHg (35-46)
[2019-03-09] MEDS ORDERED: DEXAMETHASONE SOD PHOS 20 MG/5 ML VIAL. IV ONE (22:00)
[2019-03-09] MEDS ORDERED: PROPOFOL 50 ML IV ONE ×3 (22:28→23:38)
[2019-03-09] MEDS ORDERED: fentaNYL PF VIAL 100 MCG/2 ML VIAL IV PRN (22:30)
[2019-03-09] MEDS: PROPOFOL 100 ML IV PRN (22:39)
[2019-03-09] MEDS ORDERED: fentaNYL PF VIAL 100 MCG/2 ML VIAL IV ONE (23:30)
[2019-03-09 23:40] LABS: BILIRUBIN,URINE MODERATE (NEG); CLARITY,URINE CLEAR; COLOR,URINE AMBER; NITRITE,URINE NEGATIVE (NEG); PH,URINE 5.5; PROTEIN,URINE 30 mg/dL (NEG-TRACE)
--- NOTE | 2019-03-09 23:44 | PHYS DOC ---
Past Medical History Past Medical History: Diabetes-Type II, Hypertension, Other Additional Past Medical Histor: OBESITY Past Medical History Limited due to respiratory distress/acuity of condition Past Surgical History: Other Additional Past Surgical Histo: ORAL Past Surgical History Limited due to respiratory distress/acuity of condition Smoking: Cigarettes Additional Information: Vapes Alcohol Use: None Drug Use: None Social History Limited due to respiratory distress/acuity of condition Adult General Chief Complaint Chief Complaint: SHORTNESS OF BREATH HPI HPI 48-year-old male with past medical history of COPD who continues to smoke and uses electric cigarette/vapes, presents with report of shortness of breath after being face found down at home and with oxygen saturation of 66% on room air. Patient is supposed to be on supplemental O2 at 3 L nasal cannula but has not been able to have oxygen provided to his home. Patient lives alone but is cared for by his sisters. Patient's sister checked on him yesterday at 1500 and then again today at which time he was found on the ground. Patient was placed on supplemental O2 of 15 L nonrebreather with interval improvement of oxygen saturation to 90%. History of present illness limited due to patient's respiratory distress/acuity of condition Review of Systems Review of Systems Constitutional: Denies fever or chills Respiratory: Reports respiratory distress/shortness of breath GI: Denies nausea or vomiting Review of systems limited due to respiratory distress/acuity of condition Current Medications Current Medications Current Medications Medications (Trade) Dose Ordered Sig/Stefanie Start Time Stop Time Status Last Admin Dose Admin Albuterol/ Ipratropium (Duoneb) 3 ml 1X ONCE 03/09/19 23:00 03/09/19 23:01 DC 03/10/19 02:04 3 ML Dexamethasone Sodium Phosphate (Decadron) 10 mg 1X ONCE 03/09/19 22:00 03/09/19 22:01 DC 03/09/19 22:29 10 MG Fentanyl Citrate (Fentanyl 2ml Vial) 100 mcg 1X ONCE 03/09/19 23:30 03/09/19 23:31 DC 03/09/19 23:31 100 MCG Propofol 50 ml @ As Directed STK-MED ONCE 03/09/19 22:28 03/09/19 22:28 DC Allergies Allergies Allergies Coded Allergies Type Severity Reaction Last Updated Verified No Known Drug Allergies 01/09/19 No Physical Exam Physical Exam Constitutional: Morbidly obese, moderate to severe respiratory distress HENT: Normocephalic, atraumatic, oropharynx moist Eyes: PERRL, EOMI, conjunctiva normal, no discharge, periorbital edema noted bilaterally Neck: Short statured neck, no tenderness, supple Cardiovascular: Heart rate tachycardic, regular rhythm Lungs & Thorax: Bilateral breath coarse at upper lobes but significantly diminished at bases, poor aeration Abdomen: Soft, no tenderness, obese Skin: Warm, dry, no erythema, no rash, chronic venous stasis to BLE Extremities: No tenderness, ROM intact, 3+ edema Neurologic: Awake but speech limited due to respiratory status Psychologic: Affect anxious, judgement abnormal Current Patient Data Vital Signs Vital Signs Date Time Temp Pulse Resp B/P (MAP) Pulse Ox O2 Delivery O2 Flow Rate FiO2 03/09/19 23:28 90 24 123/80 (94) 96 Ventilator 03/09/19 21:21 15.0 03/09/19 20:56 97.8 97.8 Lab Values Laboratory Tests Test 03/09/19 21:10 03/09/19 21:44 03/09/19 21:45 03/09/19 23:25 White Blood Count 11.5 x10^3/uL (4.0-11.0) H Red Blood Count 6.48 x10^6/uL (4.30-5.70) H Hemoglobin 15.7 g/dL (13.0-17.5) Hematocrit 51.8 % (39.0-53.0) Mean Corpuscular Volume 80 fL (79-100) Mean Corpuscular Hemoglobin 24 pg (25-35) L Mean Corpuscular Hemoglobin Concent 30 g/dL (31-37) L Red Cell Distribution Width 19.2 % (11.5-14.5) H Platelet Count 212 x10^3/uL (140-400) Neutrophils (%) (Auto) 84 % (31-73) H Lymphocytes (%) (Auto) 8 % (24-48) L Monocytes (%) (Auto) 7 % (0-9) Eosinophils (%) (Auto) 1 % (0-3) Basophils (%) (Auto) 0 % (0-3) Neutrophils # (Auto) 9.8 x10^3/uL (1.8-7.7) H Lymphocytes # (Auto) 0.9 x10^3/uL (1.0-4.8) L Monocytes # (Auto) 0.8 x10^3/uL (0.0-1.1) Eosinophils # (Auto) 0.1 x10^3/uL (0.0-0.7) Basophils # (Auto) 0.0 x10^3/uL (0.0-0.2) Sodium Level 148 mmol/L (136-145) H Potassium Level 4.2 mmol/L (3.5-5.1) Chloride Level 106 mmol/L (98-107) Carbon Dioxide Level 37 mmol/L (21-32) H Anion Gap 5 (6-14) L Blood Urea Nitrogen 47 mg/dL (8-26) H Creatinine 1.4 mg/dL (0.7-1.3) H Estimated GFR (Cockcroft-Gault) 65.4 BUN/Creatinine Ratio 34 (6-20) H Glucose Level 95 mg/dL (70-99) Lactic Acid Level 1.6 mmol/L (0.4-2.0) Calcium Level 9.5 mg/dL (8.5-10.1) Magnesium Level 2.2 mg/dL (1.8-2.4) Total Bilirubin 1.9 mg/dL (0.2-1.0) H Aspartate Amino Transferase (AST) 157 U/L (15-37) H Alanine Aminotransferase (ALT) 405 U/L (16-63) H Alkaline Phosphatase 126 U/L (46-116) H Creatine Kinase 274 U/L (39-308) Creatine Kinase MB (Mass) 7.3 ng/mL (0.0-3.6) H Creatine Kinase MB Relative Index 2.7 % (0-4) Troponin I Quantitative 2.012 ng/mL (0.000-0.055) EU-Upz-A-Type Natriuretic Peptide 1595 pg/mL (0-124) H Total Protein 7.7 g/dL (6.4-8.2) Albumin 3.4 g/dL (3.4-5.0) Albumin/Globulin Ratio 0.8 (1.0-1.7) L Glucose (Fingerstick) 102 mg/dL (70-99) H O2 Saturation 87 % (92-99) L Arterial Blood pH 7.10 (7.35-7.45) *L Arterial Blood pCO2 at Patient Temp 127 mmHg (35-46) *H Arterial Blood pO2 at Patient Temp 71 mmHg (75-108) L Arterial Blood HCO3 39 mmol/L (21-28) H Arterial Blood Base Excess 4 mmol/L (-3-3) H Urine Collection Type Unknown Urine Color Esther Urine Clarity Clear Urine pH 5.5 Urine Specific Chardon 1.025 Urine Protein 30 mg/dL (NEG-TRACE) Urine Glucose (UA) Negative mg/dL (NEG) Urine Ketones (Stick) Trace mg/dL (NEG) Urine Blood Large (NEG) Urine Nitrite Negative (NEG) Urine Bilirubin Moderate (NEG) Urine Urobilinogen Dipstick 2.0 mg/dL (0.2 mg/dL) Urine Leukocyte Esterase Small (NEG) Urine RBC 20-40 /HPF (0-2) Urine WBC 5-10 /HPF (0-4) Urine Bacteria 0 /HPF (0-FEW) Urine Cellular Casts Few /HPF Urine Hyaline Casts Few /HPF Urine Granular Casts Few /HPF Urine Mucus Marked /LPF Laboratory Tests 03/09/19 21:10 Laboratory Tests 03/09/19 21:10 EKG EKG @2117 NSR at 95bpm, NO ST elevation, some wandering baseline in I-aVF, NO ST elevation, QRS 110ms, QT/QTc 336/425ms Radiology/Procedures Radiology/Procedures PROCEDURE: PORTABLE CHEST 1V Portable AP chest. HISTORY: Dyspnea AP view was taken of the chest. The heart is enlarged. There is a consolidating infiltrate in the right upper lobe. There is mild left perihilar infiltrate. PA and lateral views would be of benefit if the patient is able. IMPRESSION: 1. Cardiomegaly. 2. Right upper lobe infiltrate. Electronically signed by: Carlos Senior MD (03/10/2019 4:26 AM) [facility] PROCEDURE: CHEST AP ONLY AP chest. HISTORY: Intubated AP view was taken of the chest. There is an endotracheal tube at the level the clavicles above the aortic arch. There's been improvement in the right lung atelectasis in the upper lobe since the prior film. There is still a left perihilar and basilar infiltrate. There is still atelectasis or infiltrate in the right lung base. The heart is enlarged. IMPRESSION: 1. Endotracheal tube at T2-3 at the level of the clavicles. 2. Improved atelectasis right upper lobe. 3. Persistent bilateral areas of atelectasis or infiltrate. 4. Cardiomegaly. Electronically signed by: Carlos Senior MD (03/10/2019 4:40 AM) [place] [id number] PROCEDURE: CHEST AP ONLY AP chest. HISTORY: Adjusted endotracheal tube. AP view was taken of the chest. Endotracheal tube is at T3 slightly more inferior compared to the prior study. There are bilateral areas of infiltrate with little further change. NG tube is now present, poorly seen distally but appears to extend into the stomach. IMPRESSION: 1. Endotracheal tube at T3 at the level the clavicles. 2. NG tube in the stomach. 3. Cardiomegaly. 4. Bilateral areas of infiltrate. Electronically signed by: Carlos Senior MD (03/10/2019 5:00 AM) [place] [id number] PROCEDURE: KUB Supine abdomen. HISTORY: OG placement Single view was taken of the abdomen. There is a gastric tube looped in the stomach. Film is very limited. There are infiltrates in both lung bases. IMPRESSION: 1. Orogastric tube in the stomach. Electronically signed by: Carlos Senior MD (03/10/2019 5:01 AM) [place] [id number] CXR AP at 0146 (preliminary interpretation by ED physician) RIJ central line in good position, ETT in improved position, no pneumothorax Course & Med Decision Making Course & Med Decision Making Pertinent Labs and Imaging studies reviewed. (See chart for details) Patient with past medical history of COPD who is morbidly obese presents with report of being found on floor face down with hypoxia. Hypoxia with interval improvement with supplemental O2 on nonrebreather. Patient given DuoNeb's upon arrival. Patient continued with respiratory distress and therefore placed on BiPAP. ABG on BiPAP with significant retention of CO2 up to 120. Decision to intubate patient at that time. RSI performed with placement of 7.5 cuffed ET tube which was 24 cm at teeth. Chest x-ray notes high riding ET tube. ET tube exchanged to 8.0 at 26 cm at teeth over bougie. Chest x-ray with continued high riding ET tube. ET tube therefore advanced to 28 cm at teeth. Right IJ central line placed. Repeat chest x-ray notes ET tube and central line in good position. Concern for possible bilateral infiltrates. Empiric antibiotic initiated. EKG stable. Labs obtained with findings concerning for CHF with elevated BNP and an STEMI with troponin at 2. Heparin bolus and drip initiated. Bumex also provided. Patient requiring ICU admission for further evaluation and treatment. Discussed with Dr. Cotter (hospitalist) who is in agreement with admission. Discussed findings and plan with family, who acknowledge understanding and agreement. Dragon Disclaimer Dragon Disclaimer This electronic medical record was generated, in whole or in part, using a voice recognition dictation system. Central Line Central Line : Central Line Lumen: triple Central Line Procedure: sterile drapes applied, sterile dressing applied Central Line Postion: internal jugular (R) Anesthesia: Lidocaine cc's of anesthesia: 3 Complications: none Central Line Post Position: sutured, good blood return, position confirmed w/ CXR Progress Emergent consent utilized. Time out performed. Hand hygiene utilized. Sterile gowns/gloves donned. Neck cleaned with ChloraPrep. Sterile drape placed. Bedside ultrasound confirmed RIJ. Anesthesia obtained via a 25-gauge hypodermic needle with total of (3) mL's of lidocaine 1%. TLC placed via Seldinger techique and guidewire removed. Ports with good draw and flow. Secured with suture and sterile dressing. Patient tolerated procedure well and without difficulty. Empiric antibiotic ointment applied prior to sterile dressing. Intubation Intubation : Intubation Method: orotracheal Tube Size (cm): 7.5 Breath Sounds after Intubation: equal Intubation Complications: no complications Post Intubation Xray: Yes Progress Emergent consent utilized. Time out performed. Hand hygiene utilized. Glidescope used to see vocal cords with successful placement of 7.5 cuffed ETT after unsuccessful attempt with unsuccessful attempt with 8.0 cuffed ETT. Marked at 24cm at teeth. Patient with improved aeration but required inline suctioning with significant secretions. CXR noted high riding ETT, ETT exchanged to 8.0 cuffed ETT via bougie Seldinger technique and marked at 26cm at teeth. Repeat XR with tip at clavicles. Advanced additional 2cm and marked at 28cm at teeth. Departure Departure Impression: Primary Impression: Respiratory failure Additional Impressions: CHF exacerbation COPD exacerbation Hypoxia NSTEMI (non-ST elevated myocardial infarction) Disposition: 09 ADMITTED INPATIENT Admitting Physician: HIMS (Riffel) Condition: CRITICAL Referrals: NO PCP (PCP) Critical Care Time Critical care time was 45 minutes which includes time at bedside, spent in discussion of patient's care with specialists and/or family members, with interpretation of laboratory and/or radiological studies and is exclusive of procedures. The HEART Score for CP Pts HEART Score for Chest Pain: HEART Score for Chest Pain Response (Comments) Value History Moderately Suspicious 1 ECG Normal 0 Age >45 - < 65 1 Risk Factors >3 Risk Factors or Hx CAD 2 Troponin >3 x Normal Limit 2 Total 6 Risk Factors: Risk Factors: DM, Current or recent (<one month) smoker, HTN, HLP, family history of CAD, obesity. Risk Scores: Score 0 - 3: 2.5% MACE over next 6 weeks - Discharge Home Score 4 - 6: 20.3% MACE over next 6 weeks - Admit for Clinical Observation Score 7 - 10: 72.7% MACE over next 6 weeks - Early Invasive Strategies Problem Qualifiers Primary Impression: Respiratory failure Chronicity: acute Respiratory failure complication: hypoxia and hypercapnia Qualified Codes: J96.01 - Acute respiratory failure with hypoxia; J96.02 - Acute respiratory failure with hypercapnia Additional Impressions: CHF exacerbation Heart failure type: unspecified Qualified Codes: I50.9 - Heart failure, unspecified WHITNEY HESTER DO Mar 09, 2019 23:43
[2019-03-09 23:46] LABS: RBC,URINE 20-40 /HPF (0-2)
[2019-03-09 23:47] LABS: BACTERIA,URINE 0 /HPF (0-FEW)
[2019-03-09 23:48] LABS: HYALINE CASTS, URINE FEW /HPF
[2019-03-09 23:50] LABS: GRANULAR CASTS,URINE FEW /HPF
[2019-03-10] VITALS (20 sets, daily range): BP systolic 119–166; BP diastolic 65–97
[2019-03-10] MEDS ORDERED: ASPIRIN RECTAL 300 MG SUPP. PR ONE
[2019-03-10] MEDS ORDERED: BUMETANIDE 1 MG/4 ML VIAL. IV ONE
[2019-03-10] MEDS ORDERED: HEPARIN for IV BOLUS 10,000 UNIT/10 ML VIAL. IV ONE
[2019-03-10 00:13] LABS: BASE EXCESS COOX 6 mmol/L (-3-3); HCO3 COOX 34 mmol/L (21-28); METHEMOGLOBIN 0.4 % (0.0-1.9); OXYHEMOGLOBIN 84.6 %; PO2 COOX 55 mmHg (75-108); SAT O2 COOX 87 % (92-99)
[2019-03-10] MEDS ORDERED: PIPERACILLIN/TAZOBACTAM 4.5 GM in IV NORMAL SALINE 100ML 100 ML IV ONE (00:30)
[2019-03-10] MEDS: HEPARIN 25,000UTS/500ML PREMIX 500 ML IV PRN ×2 (00:30→23:34)
[2019-03-10] MEDS ORDERED: PROPOFOL 50 ML IV ONE ×4 (00:51→02:36)
[2019-03-10 01:01] LABS: PCO2 COOX 63 mmHg (35-46)
[2019-03-10] MEDS ORDERED: MIDAZOLAM HCL/PF 5 MG/5 ML VIAL. IV ONE (01:30)
[2019-03-10] MEDS ORDERED: cloNIDine HCL 0.1 MG TABLET PO ONE (01:30)
[2019-03-10] MEDS ORDERED: fentaNYL PF VIAL 100 MCG/2 ML VIAL IV ONE (01:45)
[2019-03-10] MEDS: PROPOFOL 100 ML IV PRN ×3 (03:42→07:19)
--- NOTE | 2019-03-10 04:00 | NUR ---
Pt arrived to unit at 0300 accompanied by RT, ED RN and ED RN student via [employer], attached to Ventilator and IV propofol and heparin drip. Pt sedated with vital signs stable. Healthcare professionals assisted in bathing patient and administering suppository/ position patient. Pt unable to be oriented to education or routines per normal protocol due to sedation. Will consult respiratory and cardiac providers. Will obtain admission question info from family member. Will continue to assess and monitor pt condition.
--- NOTE | 2019-03-10 04:29 | RAD ---
Portable AP chest. HISTORY: Dyspnea AP view was taken of the chest. The heart is enlarged. There is a consolidating infiltrate in the right upper lobe. There is mild left perihilar infiltrate. PA and lateral views would be of benefit if the patient is able. IMPRESSION: 1. Cardiomegaly. 2. Right upper lobe infiltrate. Electronically signed by: Carlos Senior MD (03/10/2019 4:26 AM) [facility]
--- NOTE | 2019-03-10 04:42 | RAD ---
AP chest. HISTORY: Intubated AP view was taken of the chest. There is an endotracheal tube at the level the clavicles above the aortic arch. There's been improvement in the right lung atelectasis in the upper lobe since the prior film. There is still a left perihilar and basilar infiltrate. There is still atelectasis or infiltrate in the right lung base. The heart is enlarged. IMPRESSION: 1. Endotracheal tube at T2-3 at the level of the clavicles. 2. Improved atelectasis right upper lobe. 3. Persistent bilateral areas of atelectasis or infiltrate. 4. Cardiomegaly. Electronically signed by: Carlos Senior MD (03/10/2019 4:40 AM) [id number]
--- NOTE | 2019-03-10 05:03 | RAD ---
AP chest. HISTORY: Adjusted endotracheal tube. AP view was taken of the chest. Endotracheal tube is at T3 slightly more inferior compared to the prior study. There are bilateral areas of infiltrate with little further change. NG tube is now present, poorly seen distally but appears to extend into the stomach. IMPRESSION: 1. Endotracheal tube at T3 at the level the clavicles. 2. NG tube in the stomach. 3. Cardiomegaly. 4. Bilateral areas of infiltrate. Electronically signed by: Carlos Senior MD (03/10/2019 5:00 AM) [facility]
--- NOTE | 2019-03-10 05:04 | RAD ---
Supine abdomen. HISTORY: OG placement Single view was taken of the abdomen. There is a gastric tube looped in the stomach. Film is very limited. There are infiltrates in both lung bases. IMPRESSION: 1. Orogastric tube in the stomach. Electronically signed by: Carlos Senior MD (03/10/2019 5:01 AM) [facility]
[2019-03-10] MEDS ORDERED: ETOMIDATE 20 MG/10 ML VIAL. IV ONE (05:15)
[2019-03-10] MEDS ORDERED: ROCURONIUM 50 MG/5 ML VIAL. ONE (05:15)
[2019-03-10] MEDS ORDERED: HYDR-2145 PO (06:15)
--- NOTE | 2019-03-10 06:56 | EKG ---
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
--- NOTE | 2019-03-10 07:00 | NUR ---
Pt admitted earlier this AM on ventilator. Dr. Mejia paged. Dr. Mejia returned page. Provider updated on pt condition and status, earlier ABG's, vent settings, reason for admission. Dr. Mejia gave order to repeat AM chest x-ray aswell as arterial blood gasses. Will continue to assess and monitor pt condition and will again consult provider for any significant changes.
--- NOTE | 2019-03-10 07:15 | NUR ---
Pt Troponin resulted this AM 2.012, a higher than normal reading. Dr. Seals paged. Dr. Seals return page. Provider updated on pt condition, status, Troponin levels and other AM lab findings. Provider informed on medicines running currently. Provider notified of blood pressure and heart rhythm. Provider advised this RN that the provider should be coming to see the pt today. Will continue to assess and monitor pt and will consult provider again for any significant changes.
[2019-03-10] MEDS ORDERED: MORPHINE SULFATE 2 MG/ML VIAL. IV PRN (07:30)
[2019-03-10] MEDS ORDERED: fentaNYL PF VIAL 100 MCG/2 ML VIAL IV PRN ×2 (07:30)
[2019-03-10] MEDS ORDERED: MORPHINE SULFATE 4 MG/ML VIAL. IV PRN (07:30)
--- NOTE | 2019-03-10 07:59 | RAD ---
Chest radiograph 03/10/2019 1:46 AM INDICATION: Right IJ central line placement COMPARISON: 03/09/2019 TECHNIQUE: Supine frontal view of the chest is provided. FINDINGS: The cardiomediastinal silhouette is similar in appearance. Endotracheal tube, nasogastric tube are in similar position. Right IJ central venous catheter is identified with the distal tip projecting over the superior vena cava. Small bilateral pleural effusions adjacent compressive atelectasis versus infiltrate, left greater than right. Findings are stable. Moderate coronary vascular congestion without significant change. Left hilar prominence may be secondary to the visualized consolidation versus lymphadenopathy versus pulmonary vascular prominence. Nodular consolidative changes are identified in the right suprahilar and perihilar distribution. IMPRESSION: 1. Right IJ central venous catheter is identified with the distal tip projecting over the superior vena cava. No pneumothorax. 2. Aeration of lungs appears similar to the prior examination. Electronically signed by: Jo Elkins MD (03/10/2019 7:56 AM) [facility]
[2019-03-10] MEDS ORDERED: levOFLOXacin PER PHARMACY. MC PRN (08:15)
[2019-03-10 08:19] LABS: HEMATOCRIT 45.4 % (39.0-53.0); HEMOGLOBIN 14.1 g/dL (13.0-17.5); RED BLOOD COUNT 5.81 x10^6/uL (4.30-5.70); RED CELL DISTRIBUTION WIDTH 18.7 % (11.5-14.5); WHITE BLOOD COUNT 10.7 x10^3/uL (4.0-11.0)
[2019-03-10 08:30] LABS: PARTIAL THROMBOPLASTIN TIME 33 SEC (24-38); PROTHROMBIN TIME PATIENT 17.3 SEC (11.7-14.0)
[2019-03-10 08:31] LABS: UNFRACTIONATED HEPARIN TESTING < 0.10 IU/mL (0.30-0.70)
[2019-03-10 08:50] LABS: CALCIUM 9.1 mg/dL (8.5-10.1); CREATININE 1.4 mg/dL (0.7-1.3); GFR 65.4; MAGNESIUM 1.9 mg/dL (1.8-2.4); PHOSPHORUS 1.9 mg/dL (2.6-4.7); POTASSIUM 3.7 mmol/L (3.5-5.1)
[2019-03-10] MEDS ORDERED: LISINOPRIL 5 MG TABLET. PO SCH (09:00)
[2019-03-10] MEDS ORDERED: amLODIPine BESYLATE 5 MG TABLET PO SCH (09:00)
[2019-03-10] MEDS ORDERED: hydroCHLOROthiazide 25 MG TABLET PO SCH (09:00)
[2019-03-10] MEDS ORDERED: FAMOTIDINE 20 MG/2 ML VIAL IVP SCH (09:00)
[2019-03-10 09:03] LABS: BASE EXCESS ABG 7 mmol/L (-3-3); HCO3 ABG 30 mmol/L (21-28); PCO2 ABG 37 mmHg (35-46); PO2 ABG 83 mmHg (75-108); SAT O2 ABG 97 % (92-99)
[2019-03-10 09:04] LABS: FIO2 ABG 100
[2019-03-10] MEDS: MIDAZOLAM 100mg/100ml NS BAG 100 ML IV PRN ×3 (09:06→23:30)
[2019-03-10] MEDS: CHLORHEXIDINE 0.12% 15 ML MOUTHWASH. MM SCH ×2 (09:12→21:44)
[2019-03-10] MEDS: FAMOTIDINE 20 MG/2 ML VIAL IVP SCH ×2 (09:13→21:45)
[2019-03-10] MEDS: IV NORMAL SALINE 1000ML BAG 1,000 ML IV SCH ×2 (09:20→23:31)
[2019-03-10] MEDS: HEPARIN for IV BOLUS 10,000 UNIT/10 ML VIAL. IV PRN ×2 (09:22→17:11)
--- NOTE | 2019-03-10 09:55 | PDOC2 ---
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 No chest pain noted. Currently he is intubated. No family at the bedside. Pt was found unconscious on the floor with O2 sat at 66% on RA found by his sister in the afternoon. Pt appears to need to have O2 supplemental at home but apparently he does not have it. He suspected for SHARON and appears to have not been complaint with CPAP in the past. He continues to smoke tobacco. No known hx of VTE nor CAD. No past hx of seizures. He was placed on NRB and improved but noted with respiratory acidosis/hypercapnia hence intubated. PAST MEDICAL HISTORY Cardiovascular: CHF, HTN, Other (ascending thoracic aorta with 4.4 cm; chronic lymphedema) Pulmonary: COPD, Other (SHARON) CENTRAL NERVOUS SYSTEM: Other (No pertinent history) GI: No pertinent hx Heme/Onc: No pertinent hx, Other (polycythemia) Hepatobiliary: No pertinent hx Psych: No pertinent hx Musculoskeletal: Osteoarthritis, Other (obese) Infectious disease: No pertinent hx ENT: No pertinent hx Renal/: No pertinent hx Endocrine: Other (metabolic syndrome) Dermatology: Other (venous dermatitis) PAST SURGICAL HISTORY Past Surgical History: No pertinent history FAMILY HISTORY Family History: Hypertension SOCIAL HISTORY Smoke: <1 pack per day ALCOHOL: none Drugs: None Lives: with Family CURRENT MEDICATIONS CURRENT MEDICATIONS Current Medications Medications (Trade) Dose Ordered Sig/Stefanie Route PRN Reason Start Time Stop Time Status Last Admin Dose Admin Albuterol/ Ipratropium (Duoneb) 3 ml 1X ONCE NEB 03/09/19 21:30 03/09/19 21:31 DC 03/09/19 21:21 Dexamethasone Sodium Phosphate (Decadron) 10 mg 1X ONCE IV 03/09/19 22:00 03/09/19 22:01 DC 03/09/19 22:29 Propofol 100 ml @ 0 mls/hr CONT PRN IV SEE PROTOCOL 03/09/19 22:30 03/10/19 07:28 DC 03/10/19 07:19 Chlorhexidine Gluconate (Peridex) 15 ml BID MM 03/10/19 09:00 03/10/19 09:13 Famotidine (Pepcid Vial) 20 mg BID IVP 03/10/19 09:00 03/10/19 09:13 Albuterol/ Ipratropium (Duoneb) 3 ml 1X ONCE NEB 03/09/19 23:00 03/09/19 23:01 DC 03/10/19 02:04 Albuterol/ Ipratropium (Duoneb) 3 ml 1X ONCE NEB 03/09/19 23:00 03/09/19 23:01 DC 03/10/19 02:04 Fentanyl Citrate (Fentanyl 2ml Vial) 100 mcg 1X ONCE IV 03/09/19 23:30 03/09/19 23:31 DC 03/09/19 23:31 Bumetanide (Bumex) 1 mg 1X ONCE IV 03/10/19 00:00 03/10/19 00:01 DC 03/10/19 00:21 Heparin Sodium (Porcine) (Heparin Sodium) 4,000 unit 1X ONCE IV 03/10/19 00:00 03/10/19 00:01 DC 03/10/19 00:31 Heparin Sodium/ Dextrose 500 ml @ 0 mls/hr CONT PRN IV PER PROTOCOL 03/09/19 23:45 03/10/19 00:31 Heparin Sodium (Porcine) (Heparin Sodium) 5,500 unit PRN Q6HRS PRN IV FOR UFH LEVEL LESS THAN 0.2 03/09/19 23:45 03/10/19 09:22 Aspirin (Aspirin Rectal Supp) 300 mg 1X ONCE MD 03/10/19 00:00 03/10/19 00:01 DC 03/10/19 03:42 Piperacillin Sod/ Tazobactam Sod 4.5 gm/Sodium Chloride 100 ml @ 200 mls/hr 1X ONCE IV 03/10/19 00:30 03/10/19 00:59 DC 03/10/19 05:19 Fentanyl Citrate (Fentanyl 2ml Vial) 100 mcg 1X ONCE IV 03/10/19 01:45 03/10/19 01:46 DC 03/10/19 01:26 Midazolam HCl (Versed) 5 mg 1X ONCE IV 03/10/19 01:30 03/10/19 01:34 DC 03/10/19 01:28 Fentanyl Citrate 30 ml @ 0 mls/hr CONT PRN IV SEE PROTOCOL 03/10/19 07:30 03/10/19 08:02 Midazolam HCl 100 ml @ 0 mls/hr CONT PRN IV SEE PROTOCOL 03/10/19 07:30 03/10/19 09:06 Sodium Chloride 1,000 ml @ 100 mls/hr Q10H IV 03/10/19 08:15 03/10/19 09:20 Amlodipine Besylate (Norvasc) 5 mg DAILY PO 03/10/19 09:00 03/10/19 09:13 Hydrochlorothiazide (Hydrodiuril) 25 mg DAILY PO 03/10/19 09:00 03/10/19 09:13 Lisinopril (Prinivil) 5 mg DAILY PO 03/10/19 09:00 03/10/19 09:13 ALLERGIES ALLERGIES: Coded Allergies: No Known Drug Allergies (Unverified , 01/09/19) ROS Review of System unreliable, sedated/intubated, family not available PHYSICAL EXAM General: Other (sedated) Lungs: Other (intubated/vent diminished throughout) Heart: Regular rate (SR), Other (distante heart sounds) Abdomen: Soft, Other (obese) Extremities: Other (chronic lymphedema) Skin: Other (venous dermatitis) Neuro: Other (sedated) Psych/Mental Status: Other (sedated) MUSCULOSKELETAL: Osteoarthritic changes both hands VITALS/I&O VITALS/I&O: Vital Signs Date Time Temp Pulse Resp B/P (MAP) Pulse Ox O2 Delivery O2 Flow Rate FiO2 03/10/19 09:14 24 100 03/10/19 09:13 82 166/88 03/10/19 08:46 Ventilator 03/10/19 08:00 100.2 100.2 03/09/19 21:21 15.0 I & O0 03/09/19 03/09/19 03/10/19 14:59 22:59 06:59 Intake Total 100 ml Output Total 3000 ml Balance -2900 ml LABS Lab: Laboratory Tests Test 03/09/19 21:10 03/09/19 21:44 03/09/19 21:45 03/09/19 23:25 White Blood Count 11.5 x10^3/uL (4.0-11.0) H Red Blood Count 6.48 x10^6/uL (4.30-5.70) H Hemoglobin 15.7 g/dL (13.0-17.5) Hematocrit 51.8 % (39.0-53.0) Mean Corpuscular Volume 80 fL (79-100) Mean Corpuscular Hemoglobin 24 pg (25-35) L Mean Corpuscular Hemoglobin Concent 30 g/dL (31-37) L Red Cell Distribution Width 19.2 % (11.5-14.5) H Platelet Count 212 x10^3/uL (140-400) Neutrophils (%) (Auto) 84 % (31-73) H Lymphocytes (%) (Auto) 8 % (24-48) L Monocytes (%) (Auto) 7 % (0-9) Eosinophils (%) (Auto) 1 % (0-3) Basophils (%) (Auto) 0 % (0-3) Neutrophils # (Auto) 9.8 x10^3/uL (1.8-7.7) H Lymphocytes # (Auto) 0.9 x10^3/uL (1.0-4.8) L Monocytes # (Auto) 0.8 x10^3/uL (0.0-1.1) Eosinophils # (Auto) 0.1 x10^3/uL (0.0-0.7) Basophils # (Auto) 0.0 x10^3/uL (0.0-0.2) Sodium Level 148 mmol/L (136-145) H Potassium Level 4.2 mmol/L (3.5-5.1) Chloride Level 106 mmol/L (98-107) Carbon Dioxide Level 37 mmol/L (21-32) H Anion Gap 5 (6-14) L Blood Urea Nitrogen 47 mg/dL (8-26) H Creatinine 1.4 mg/dL (0.7-1.3) H Estimated GFR (Cockcroft-Gault) 65.4 BUN/Creatinine Ratio 34 (6-20) H Glucose Level 95 mg/dL (70-99) Lactic Acid Level 1.6 mmol/L (0.4-2.0) Calcium Level 9.5 mg/dL (8.5-10.1) Magnesium Level 2.2 mg/dL (1.8-2.4) Total Bilirubin 1.9 mg/dL (0.2-1.0) H Aspartate Amino Transferase (AST) 157 U/L (15-37) H Alanine Aminotransferase (ALT) 405 U/L (16-63) H Alkaline Phosphatase 126 U/L (46-116) H Creatine Kinase 274 U/L (39-308) Creatine Kinase MB (Mass) 7.3 ng/mL (0.0-3.6) H Creatine Kinase MB Relative Index 2.7 % (0-4) Troponin I Quantitative 2.012 ng/mL (0.000-0.055) IR-Ntn-Y-Type Natriuretic Peptide 1595 pg/mL (0-124) H Total Protein 7.7 g/dL (6.4-8.2) Albumin 3.4 g/dL (3.4-5.0) Albumin/Globulin Ratio 0.8 (1.0-1.7) L Glucose (Fingerstick) 102 mg/dL (70-99) H O2 Saturation 87 % (92-99) L Arterial Blood pH 7.10 (7.35-7.45) *L Arterial Blood pCO2 at Patient Temp 127 mmHg (35-46) *H Arterial Blood pO2 at Patient Temp 71 mmHg (75-108) L Arterial Blood HCO3 39 mmol/L (21-28) H Arterial Blood Base Excess 4 mmol/L (-3-3) H Urine Collection Type Unknown Urine Color Esther Urine Clarity Clear Urine pH 5.5 Urine Specific [place] 1.025 Urine Protein 30 mg/dL (NEG-TRACE) Urine Glucose (UA) Negative mg/dL (NEG) Urine Ketones (Stick) Trace mg/dL (NEG) Urine Blood Large (NEG) Urine Nitrite Negative (NEG) Urine Bilirubin Moderate (NEG) Urine Urobilinogen Dipstick 2.0 mg/dL (0.2 mg/dL) Urine Leukocyte Esterase Small (NEG) Urine RBC 20-40 /HPF (0-2) Urine WBC 5-10 /HPF (0-4) Urine Bacteria 0 /HPF (0-FEW) Urine Cellular Casts Few /HPF Urine Hyaline Casts Few /HPF Urine Granular Casts Few /HPF Urine Mucus Marked /LPF Test 03/09/19 23:59 03/10/19 08:05 03/10/19 08:45 O2 Saturation 87 % (92-99) L 97 % (92-99) Arterial Blood pH 7.35 (7.35-7.45) 7.53 (7.35-7.45) H Arterial Blood pCO2 at Patient Temp 63 mmHg (35-46) *H 37 mmHg (35-46) Arterial Blood pO2 at Patient Temp 55 mmHg (75-108) L 83 mmHg (75-108) Arterial Blood HCO3 34 mmol/L (21-28) H 30 mmol/L (21-28) H Arterial Blood Base Excess 6 mmol/L (-3-3) H 7 mmol/L (-3-3) H Oxyhemoglobin 84.6 % Methemoglobin 0.4 % (0.0-1.9) Carbon Monoxide, Quantitative 2.2 % (0.0-1.9) H FiO2 100 100 White Blood Count 10.7 x10^3/uL (4.0-11.0) Red Blood Count 5.81 x10^6/uL (4.30-5.70) H Hemoglobin 14.1 g/dL (13.0-17.5) Hematocrit 45.4 % (39.0-53.0) Mean Corpuscular Volume 78 fL (79-100) L Mean Corpuscular Hemoglobin 24 pg (25-35) L Mean Corpuscular Hemoglobin Concent 31 g/dL (31-37) Red Cell Distribution Width 18.7 % (11.5-14.5) H Platelet Count 196 x10^3/uL (140-400) Prothrombin Time 17.3 SEC (11.7-14.0) H Prothrombin Time INR 1.4 (0.8-1.1) H Activated Partial Thromboplast Time 33 SEC (24-38) Heparin Anti-Xa Act, Unfractionated < 0.10 IU/mL (0.30-0.70) L Sodium Level 147 mmol/L (136-145) H Potassium Level 3.7 mmol/L (3.5-5.1) Chloride Level 105 mmol/L (98-107) Carbon Dioxide Level 35 mmol/L (21-32) H Anion Gap 7 (6-14) Blood Urea Nitrogen 41 mg/dL (8-26) H Creatinine 1.4 mg/dL (0.7-1.3) H Estimated GFR (Cockcroft-Gault) 65.4 Glucose Level 90 mg/dL (70-99) Calcium Level 9.1 mg/dL (8.5-10.1) Phosphorus Level 1.9 mg/dL (2.6-4.7) L Magnesium Level 1.9 mg/dL (1.8-2.4) Laboratory Tests 03/09/19 21:10 03/10/19 08:05 Laboratory Tests 03/09/19 21:10 03/10/19 08:05 ECHOCARDIOGRAM ECHOCARDIOGRAM <Conclusion> The left ventricular systolic function is normal and the ejection fraction is within normal range. The Ejection Fraction is 55-60%. There is normal LV segmental wall motion. DATE: 01/12/19 1503 ASSESSMENT/PLAN ASSESSMENT/PLAN 1. Acute respiratory failure hypoxemic/hypercapnic with COPD/CHF/SHARON: intubated/vent 2. Malignant HTN: labile episodes 3. OSMAN 4. Acute on chronic diastolic CHF 5. NSTEMI: trop 2, suspect type2 with above culprits 6. Mild coagulopathy with polycythemia 7. Morbid obesity 8. Chronic lymphedema 9. Metabolic syndrome 10. Hx of TAA: 4.[address] Recommendations 1. Recent TTE reviewed. Will review EKG when able to retrieve 2. TSH, LFTs, lipids. Trend trop 3. ASA, heparin drip. DC lisinopril/HCTZ for now. continue on norvasc and will increase. Hydralazine IV PRN. 4. Follow pulmonary recommendations 5. Ischemic workup once pulmonary status is much improved. 6. Lasix therapy. SHERI BUSTILLO MD 03/10/19 0873: CARDIAC CONSULT ASSESSMENT/PLAN ASSESSMENT/PLAN Pt. seen and examined. Agree with above SURFACE HYDROLOGIST note. 48 y.o male presenting with multisystem issues. Hypoxic and hypercapneic resp failure likely due to COPD and obesity hypoventilation NSTEMI likely type 2. EF preserved but images limited due to obesity No significant pulmonary HTN noted. No further CV w/u. No significant edema on CT, ? PNA Defer aggressive diuresis. Await pulm tx. Consider outpt ischemic tx. If having issues with extubation or resp failure, can consider LHC as needed. Supportive care. Critically ill patient. Poor prognosis. >35 min cc time SAAD RAMEY APRN Mar 10, 2019 09:55 SHERI BUSTILLO MD Mar 10, 2019 21:43
[2019-03-10] MEDS ORDERED: hydrALAZINE 20 MG/ML VIAL. IVP PRN (10:15)
[2019-03-10] MEDS ORDERED: ASPIRIN 325 MG TABLET PO ONE (10:30)
[2019-03-10 10:38] LABS: ALBUMIN 2.8 g/dL (3.4-5.0); TOTAL BILIRUBIN 2.2 mg/dL (0.2-1.0); TOTAL PROTEIN 6.2 g/dL (6.4-8.2)
[2019-03-10 10:39] LABS: CHOLESTEROL/HDL RATIO 6.7
[2019-03-10] MEDS: FUROSEMIDE 40 MG/4 ML VIAL. IVP SCH (10:55)
--- NOTE | 2019-03-10 11:03 | PDOC1 ---
History and Physical Date of Admission Date of Admission DATE: 03/10/19 TIME: 10:57 Identification/Chief Complaint Chief Complaint soa Source Source: Caregiver, Chart review, Patient History of Present Illness History of Present Illness 48-year-old morbidly obese male with a BMI 42, very S OA on admission with pH 7.1 and a PCO2 of 127 hence intubated. He is a COPD on 2-3 liters nasal cannula at home, smoker, vapes. Now on 100% FiO2 with PEEP of 10. Chest x-rays shows no consolidative process but COPD lungs. Repeat ABG shows normalization of pH with PCO2 that is better but oxygenation still low despite 100% on vent settings. Sodium 134 with mild AK I VMN creatinine 1.2. WBC 11. Some troponin elevation BNP only 1500. He is self-pay. Discussed with nutrition, we'll start tube feeds as he will be on the vent for a while `DM Per RN, blood sugar 90s on CBC The pressure 160 systolic Past Medical History Cardiovascular: CHF, HTN, Other (ascending thoracic aorta with 4.4 cm; chronic lymphedema) Pulmonary: COPD, Other (SHARON) CENTRAL NERVOUS SYSTEM: Other (No pertinent history) GI: No pertinent hx Heme/Onc: No pertinent hx, Other (polycythemia) Hepatobiliary: No pertinent hx Psych: No pertinent hx Musculoskeletal: Osteoarthritis, Other (obese) Rheumatologic: No pertinent hx Infectious disease: No pertinent hx ENT: No pertinent hx Renal/: No pertinent hx Endocrine: Other (metabolic syndrome) Dermatology: Other (venous dermatitis) Past Surgical History Past Surgical History: No pertinent history Family History Family History: Hypertension Social History Smoke: <1 pack per day ALCOHOL: none Drugs: None Current Problem List Problem List Problems Medical Problems: (1) CHF exacerbation Status: Acute (2) COPD exacerbation Status: Acute (3) Hypoxia Status: Acute (4) NSTEMI (non-ST elevated myocardial infarction) Status: Acute (5) Respiratory failure Status: Acute Current Medications Current Medications Current Medications Albuterol/ Ipratropium (Duoneb) 3 ml 1X ONCE NEB Last administered on 03/09/19at 21:21; Start 03/09/19 at 21:30; Stop 03/09/19 at 21:31; Status DC Dexamethasone Sodium Phosphate (Decadron) 10 mg 1X ONCE IV Last administered on 03/09/19at 22:29; Start 03/09/19 at 22:00; Stop 03/09/19 at 22:01; Status DC Propofol 100 ml @ 0 mls/hr CONT PRN IV SEE PROTOCOL Last administered on 03/10/19at 07:19; Start 03/09/19 at 22:30; Stop 03/10/19 at 07:28; Status DC Fentanyl Citrate (Fentanyl 2ml Vial) 50 mcg PRN Q1HR PRN IV SEE COMMENTS; Start 03/09/19 at 22:30; Stop 03/10/19 at 07:28; Status DC Chlorhexidine Gluconate (Peridex) 15 ml BID MM Last administered on 03/10/19at 09:13; Start 03/10/19 at 09:00 Famotidine (Pepcid Vial) 20 mg BID IVP Last administered on 03/10/19at 09:13; Start 03/10/19 at 09:00 Propofol 50 ml @ As Directed STK-MED ONCE IV ; Start 03/09/19 at 22:28; Stop 03/09/19 at 22:28; Status DC Albuterol/ Ipratropium (Duoneb) 3 ml 1X ONCE NEB Last administered on 03/10/19at 02:04; Start 03/09/19 at 23:00; Stop 03/09/19 at 23:01; Status DC Albuterol/ Ipratropium (Duoneb) 3 ml 1X ONCE NEB Last administered on 03/10/19at 02:04; Start 03/09/19 at 23:00; Stop 03/09/19 at 23:01; Status DC Fentanyl Citrate (Fentanyl 2ml Vial) 100 mcg 1X ONCE IV Last administered on 03/09/19at 23:31; Start 03/09/19 at 23:30; Stop 03/09/19 at 23:31; Status DC Bumetanide (Bumex) 1 mg 1X ONCE IV Last administered on 03/10/19at 00:21; Start 03/10/19 at 00:00; Stop 03/10/19 at 00:01; Status DC Heparin Sodium (Porcine) (Heparin Sodium) 4,000 unit 1X ONCE IV Last administered on 03/10/19at 00:31; Start 03/10/19 at 00:00; Stop 03/10/19 at 00:01; Status DC Heparin Sodium/ Dextrose 500 ml @ 0 mls/hr CONT PRN IV PER PROTOCOL Last adm inistered on 03/10/19at 00:31; Start 03/09/19 at 23:45 Heparin Sodium (Porcine) (Heparin Sodium) 5,500 unit PRN Q6HRS PRN IV FOR UFH LEVEL LESS THAN 0.2 Last administered on 03/10/19at 09:22; Start 03/09/19 at 23:45 Aspirin (Aspirin Rectal Supp) 300 mg 1X ONCE PA Last administered on 03/10/19at 03:42; Start 03/10/19 at 00:00; Stop 03/10/19 at 00:01; Status DC Propofol 50 ml @ As Directed STK-MED ONCE IV ; Start 03/09/19 at 23:38; Stop 03/09/19 at 23:38; Status DC Propofol 50 ml @ As Directed STK-MED ONCE IV ; Start 03/09/19 at 23:38; Stop 03/09/19 at 23:38; Status DC Piperacillin Sod/ Tazobactam Sod 4.5 gm/Sodium Chloride 100 ml @ 200 mls/hr 1X ONCE IV Last administered on 03/10/19at 05:19; Start 03/10/19 at 00:30; Stop 03/10/19 at 00:59; Status DC Propofol 50 ml @ As Directed STK-MED ONCE IV ; Start 03/10/19 at 00:51; Stop 03/10/19 at 00:51; Status DC Propofol 50 ml @ As Directed STK-MED ONCE IV ; Start 03/10/19 at 01:14; Stop 03/10/19 at 01:15; Status DC Fentanyl Citrate (Fentanyl 2ml Vial) 100 mcg 1X ONCE IV Last administered on 03/10/19at 01:26; Start 03/10/19 at 01:45; Stop 03/10/19 at 01:46; Status DC Clonidine HCl (Catapres) 0.1 mg 1X ONCE PO ; Start 03/10/19 at 01:30; Stop 03/10/19 at 01:34; Status DC Midazolam HCl (Versed) 5 mg 1X ONCE IV Last administered on 03/10/19at 01:28; Start 03/10/19 at 01:30; Stop 03/10/19 at 01:34; Status DC Propofol 50 ml @ As Directed STK-MED ONCE IV ; Start 03/10/19 at 02:08; Stop 03/10/19 at 02:09; Status DC Propofol 50 ml @ As Directed STK-MED ONCE IV ; Start 03/10/19 at 02:36; Stop 03/10/19 at 02:36; Status DC Rocuronium Mccoll (Zemuron) 50 mg STK-MED ONCE .ROUTE ; Start 03/10/19 at 05:15; Stop 03/10/19 at 05:15; Status DC Etomidate (Amidate) 20 mg STK-MED ONCE IV ; Start 03/10/19 at 05:15; Stop 03/10/19 at 05:16; Status DC Fentanyl Citrate 30 ml @ 0 mls/hr CONT PRN IV SEE PROTOCOL Last administered on 03/10/19at 08:02; Start 03/10/19 at 07:30 Propofol 100 ml @ 0 mls/hr CONT PRN IV SEE PROTOCOL; Start 03/10/19 at 07:30 Fentanyl Citrate (Fentanyl 2ml Vial) 25 mcg PRN Q1HR PRN IV SEE COMMENTS; Start 03/10/19 at 07:30 Fentanyl Citrate (Fentanyl 2ml Vial) 50 mcg PRN Q1HR PRN IV SEE COMMENTS; Start 03/10/19 at 07:30 Artificial Tears (Artificial Tears) 1 drop PRN Q1HR PRN OU DRY EYE; Start 03/10/19 at 07:30 Famotidine (Pepcid Vial) 20 mg BID IVP ; Start 03/10/19 at 09:00; Status UNV Morphine Sulfate (Morphine Sulfate) 2 mg PRN Q1HR PRN IV SEE COMMENTS.; Start 03/10/19 at 07:30 Morphine Sulfate (Morphine Sulfate) 4 mg PRN Q1HR PRN IV SEE COMMENTS.; Start 03/10/19 at 07:30 Midazolam HCl 100 ml @ 0 mls/hr CONT PRN IV SEE PROTOCOL Last administered on 03/10/19at 09:06; Start 03/10/19 at 07:30 Levofloxacin/ Dextrose (Levaquin Per Pharmacy) 1 each PRN DAILY PRN MC SEE COMMENTS; Start 03/10/19 at 08:15 Albuterol/ Ipratropium (Duoneb) 3 ml RTQID NEB ; Start 03/10/19 at 12:00 Sodium Chloride 1,000 ml @ 100 mls/hr Q10H IV Last administered on 03/10/19at 09:20; Start 03/10/19 at 08:15 Amlodipine Besylate (Norvasc) 5 mg DAILY PO Last administered on 03/10/19at 09:13; Start 03/10/19 at 09:00; Stop 03/10/19 at 10:04; Status DC Hydrochlorothiazide (Hydrodiuril) 25 mg DAILY PO Last administered on 03/10/19at 09:13; Start 03/10/19 at 09:00; Stop 03/10/19 at 10:04; Status DC Lisinopril (Prinivil) 5 mg DAILY PO Last administered on 03/10/19at 09:13; Start 03/10/19 at 09:00; Stop 03/10/19 at 10:04; Status DC Levofloxacin/ Dextrose 100 ml @ 100 mls/hr Q24H IV Last administered on 03/10/19at 09:50; Start 03/10/19 at 09:00 Aspirin (Amanda Aspirin) 325 mg 1X ONCE PO Last administered on 03/10/19at 10:55; Start 03/10/19 at 10:30; Stop 03/10/19 at 10:31; Status DC Aspirin (Children'S Aspirin) 81 mg DAILYWBKFT PO ; Start 03/11/19 at 08:00 Amlodipine Besylate (Norvasc) 10 mg DAILY PO ; Start 03/11/19 at 09:00 Hydralazine HCl (Apresoline Inj) 10 mg PRN Q4HRS PRN IVP ELEVATED BP, SEE COMMENTS; Start 03/10/19 at 10:15 Furosemide (Lasix) 40 mg DAILY IVP Last administered on 03/10/19at 10:55; Start 03/10/19 at 11:00 Active Scripts Active Norvasc (Amlodipine Besylate) 5 Mg Tablet 1 Tab PO DAILY Lisinopril 5 Mg Tablet 1 Tab PO DAILY Reported Hydrochlorothiazide Tablet (Hydrochlorothiazide) 25 Mg Tablet 25 Mg PO DAILY Allergies Allergies: Coded Allergies: No Known Drug Allergies (Unverified , 01/09/19) ROS Review of System Intubated sedated Physical Exam General: No acute distress, Other (short neck , Mallampati 4) HEENT: Atraumatic, EOMI Lungs: Normal air movement Heart: S1S2, RRR, no thrills, no rubs, no gallops, no murmurs Cardiovascular: S1, S2 Abdomen: Normal bowel sounds, Soft, No tenderness, No hepatosplenomegaly, No masses Male Genitals Exam: normal genitalia, normal prostate Rectal Exam: not examined PELVIC: Nml ext genitalia Extremities: No clubbing, No cyanosis, No edema, Normal pulses, No tenderness/swelling Skin: No rashes, No breakdown, No significant lesion Neuro: Reflexes 2+ Vitals Vitals Vital Signs Date Time Temp Pulse Resp B/P (MAP) Pulse Ox O2 Delivery O2 Flow Rate FiO2 03/10/19 10:00 88 24 160/84 (109) 100 Ventilator 03/10/19 08:00 100.2 100.2 03/09/19 21:21 15.0 Labs Labs Laboratory Tests Test 03/09/19 21:10 03/09/19 21:44 03/09/19 21:45 03/09/19 23:25 White Blood Count 11.5 x10^3/uL (4.0-11.0) Red Blood Count 6.48 x10^6/uL (4.30-5.70) Hemoglobin 15.7 g/dL (13.0-17.5) Hematocrit 51.8 % (39.0-53.0) Mean Corpuscular Volume 80 fL (79-100) Mean Corpuscular Hemoglobin 24 pg (25-35) Mean Corpuscular Hemoglobin Concent 30 g/dL (31-37) Red Cell Distribution Width 19.2 % (11.5-14.5) Platelet Count 212 x10^3/uL (140-400) Neutrophils (%) (Auto) 84 % (31-73) Lymphocytes (%) (Auto) 8 % (24-48) Monocytes (%) (Auto) 7 % (0-9) Eosinophils (%) (Auto) 1 % (0-3) Basophils (%) (Auto) 0 % (0-3) Neutrophils # (Auto) 9.8 x10^3/uL (1.8-7.7) Lymphocytes # (Auto) 0.9 x10^3/uL (1.0-4.8) Monocytes # (Auto) 0.8 x10^3/uL (0.0-1.1) Eosinophils # (Auto) 0.1 x10^3/uL (0.0-0.7) Basophils # (Auto) 0.0 x10^3/uL (0.0-0.2) Sodium Level 148 mmol/L (136-145) Potassium Level 4.2 mmol/L (3.5-5.1) Chloride Level 106 mmol/L (98-107) Carbon Dioxide Level 37 mmol/L (21-32) Anion Gap 5 (6-14) Blood Urea Nitrogen 47 mg/dL (8-26) Creatinine 1.4 mg/dL (0.7-1.3) Estimated GFR (Cockcroft-Gault) 65.4 BUN/Creatinine Ratio 34 (6-20) Glucose Level 95 mg/dL (70-99) Lactic Acid Level 1.6 mmol/L (0.4-2.0) Calcium Level 9.5 mg/dL (8.5-10.1) Magnesium Level 2.2 mg/dL (1.8-2.4) Total Bilirubin 1.9 mg/dL (0.2-1.0) Aspartate Amino Transf (AST/SGOT) 157 U/L (15-37) Alanine Aminotransferase (ALT/SGPT) 405 U/L (16-63) Alkaline Phosphatase 126 U/L (46-116) Creatine Kinase 274 U/L (39-308) Creatine Kinase MB (Mass) 7.3 ng/mL (0.0-3.6) Creatine Kinase MB Relative Index 2.7 % (0-4) Troponin I Quantitative 2.012 ng/mL (0.000-0.055) TV-[id number]-Type Natriuretic Peptide 1595 pg/mL (0-124) Total Protein 7.7 g/dL (6.4-8.2) Albumin 3.4 g/dL (3.4-5.0) Albumin/Globulin Ratio 0.8 (1.0-1.7) Glucose (Fingerstick) 102 mg/dL (70-99) O2 Saturation 87 % (92-99) Arterial Blood pH 7.10 (7.35-7.45) Arterial Blood pCO2 at Patient Temp 127 mmHg (35-46) Arterial Blood pO2 at Patient Temp 71 mmHg (75-108) Arterial Blood HCO3 39 mmol/L (21-28) Arterial Blood Base Excess 4 mmol/L (-3-3) Urine Collection Type Unknown Urine Color Esther Urine Clarity Clear Urine pH 5.5 Urine Specific [place] 1.025 Urine Protein 30 mg/dL (NEG-TRACE) Urine Glucose (UA) Negative mg/dL (NEG) Urine Ketones (Stick) Trace mg/dL (NEG) Urine Blood Large (NEG) Urine Nitrite Negative (NEG) Urine Bilirubin Moderate (NEG) Urine Urobilinogen Dipstick 2.0 mg/dL (0.2 mg/dL) Urine Leukocyte Esterase Small (NEG) Urine RBC 20-40 /HPF (0-2) Urine WBC 5-10 /HPF (0-4) Urine Bacteria 0 /HPF (0-FEW) Urine Cellular Casts Few /HPF Urine Hyaline Casts Few /HPF Urine Granular Casts Few /HPF Urine Mucus Marked /LPF Test 03/09/19 23:59 03/10/19 08:05 03/10/19 08:45 O2 Saturation 87 % (92-99) 97 % (92-99) Arterial Blood pH 7.35 (7.35-7.45) 7.53 (7.35-7.45) Arterial Blood pCO2 at Patient Temp 63 mmHg (35-46) 37 mmHg (35-46) Arterial Blood pO2 at Patient Temp 55 mmHg (75-108) 83 mmHg (75-108) Arterial Blood HCO3 34 mmol/L (21-28) 30 mmol/L (21-28) Arterial Blood Base Excess 6 mmol/L (-3-3) 7 mmol/L (-3-3) Oxyhemoglobin 84.6 % Methemoglobin 0.4 % (0.0-1.9) Carbon Monoxide, Quantitative 2.2 % (0.0-1.9) FiO2 100 100 White Blood Count 10.7 x10^3/uL (4.0-11.0) Red Blood Count 5.81 x10^6/uL (4.30-5.70) Hemoglobin 14.1 g/dL (13.0-17.5) Hematocrit 45.4 % (39.0-53.0) Mean Corpuscular Volume 78 fL (79-100) Mean Corpuscular Hemoglobin 24 pg (25-35) Mean Corpuscular Hemoglobin Concent 31 g/dL (31-37) Red Cell Distribution Width 18.7 % (11.5-14.5) Platelet Count 196 x10^3/uL (140-400) Prothrombin Time 17.3 SEC (11.7-14.0) Prothromb Time International Ratio 1.4 (0.8-1.1) Activated Partial Thromboplast Time 33 SEC (24-38) Heparin Anti-Xa Act, Unfractionated < 0.10 IU/mL (0.30-0.70) Sodium Level 147 mmol/L (136-145) Potassium Level 3.7 mmol/L (3.5-5.1) Chloride Level 105 mmol/L (98-107) Carbon Dioxide Level 35 mmol/L (21-32) Anion Gap 7 (6-14) Blood Urea Nitrogen 41 mg/dL (8-26) Creatinine 1.4 mg/dL (0.7-1.3) Estimated GFR (Cockcroft-Gault) 65.4 Glucose Level 90 mg/dL (70-99) Calcium Level 9.1 mg/dL (8.5-10.1) Phosphorus Level 1.9 mg/dL (2.6-4.7) Magnesium Level 1.9 mg/dL (1.8-2.4) Total Bilirubin 2.2 mg/dL (0.2-1.0) Direct Bilirubin 1.0 mg/dL (0.0-0.2) Aspartate Amino Transf (AST/SGOT) 109 U/L (15-37) Alanine Aminotransferase (ALT/SGPT) 295 U/L (16-63) Alkaline Phosphatase 97 U/L (46-116) Total Protein 6.2 g/dL (6.4-8.2) Albumin 2.8 g/dL (3.4-5.0) Triglycerides Level 139 mg/dL (0-150) Cholesterol Level 121 mg/dL (0-200) LDL Cholesterol, Calculated 75 mg/dL (0-100) VLDL Cholesterol, Calculated 28 mg/dL (0-40) Non-HDL Cholesterol Calculated 103 mg/dL (0-129) HDL Cholesterol 18 mg/dL (40-60) Cholesterol/HDL Ratio 6.7 Thyroid Stimulating Hormone (TSH) 2.856 uIU/mL (0.358-3.74) Laboratory Tests Test 03/09/19 21:10 03/09/19 21:44 03/09/19 21:45 03/09/19 23:25 White Blood Count 11.5 x10^3/uL (4.0-11.0) Red Blood Count 6.48 x10^6/uL (4.30-5.70) Hemoglobin 15.7 g/dL (13.0-17.5) Hematocrit 51.8 % (39.0-53.0) Mean Corpuscular Volume 80 fL (79-100) Mean Corpuscular Hemoglobin 24 pg (25-35) Mean Corpuscular Hemoglobin Concent 30 g/dL (31-37) Red Cell Distribution Width 19.2 % (11.5-14.5) Platelet Count 212 x10^3/uL (140-400) Neutrophils (%) (Auto) 84 % (31-73) Lymphocytes (%) (Auto) 8 % (24-48) Monocytes (%) (Auto) 7 % (0-9) Eosinophils (%) (Auto) 1 % (0-3) Basophils (%) (Auto) 0 % (0-3) Neutrophils # (Auto) 9.8 x10^3/uL (1.8-7.7) Lymphocytes # (Auto) 0.9 x10^3/uL (1.0-4.8) Monocytes # (Auto) 0.8 x10^3/uL (0.0-1.1) Eosinophils # (Auto) 0.1 x10^3/uL (0.0-0.7) Basophils # (Auto) 0.0 x10^3/uL (0.0-0.2) Sodium Level 148 mmol/L (136-145) Potassium Level 4.2 mmol/L (3.5-5.1) Chloride Level 106 mmol/L (98-107) Carbon Dioxide Level 37 mmol/L (21-32) Anion Gap 5 (6-14) Blood Urea Nitrogen 47 mg/dL (8-26) Creatinine 1.4 mg/dL (0.7-1.3) Estimated GFR (Cockcroft-Gault) 65.4 BUN/Creatinine Ratio 34 (6-20) Glucose Level 95 mg/dL (70-99) Lactic Acid Level 1.6 mmol/L (0.4-2.0) Calcium Level 9.5 mg/dL (8.5-10.1) Magnesium Level 2.2 mg/dL (1.8-2.4) Total Bilirubin 1.9 mg/dL (0.2-1.0) Aspartate Amino Transf (AST/SGOT) 157 U/L (15-37) Alanine Aminotransferase (ALT/SGPT) 405 U/L (16-63) Alkaline Phosphatase 126 U/L (46-116) Creatine Kinase 274 U/L (39-308) Creatine Kinase MB (Mass) 7.3 ng/mL (0.0-3.6) Creatine Kinase MB Relative Index 2.7 % (0-4) Troponin I Quantitative 2.012 ng/mL (0.000-0.055) MM-Cif-L-Type Natriuretic Peptide 1595 pg/mL (0-124) Total Protein 7.7 g/dL (6.4-8.2) Albumin 3.4 g/dL (3.4-5.0) Albumin/Globulin Ratio 0.8 (1.0-1.7) Glucose (Fingerstick) 102 mg/dL (70-99) O2 Saturation 87 % (92-99) Arterial Blood pH 7.10 (7.35-7.45) Arterial Blood pCO2 at Patient Temp 127 mmHg (35-46) Arterial Blood pO2 at Patient Temp 71 mmHg (75-108) Arterial Blood HCO3 39 mmol/L (21-28) Arterial Blood Base Excess 4 mmol/L (-3-3) Urine Collection Type Unknown Urine Color Esther Urine Clarity Clear Urine pH 5.5 Urine Specific [place] 1.025 Urine Protein 30 mg/dL (NEG-TRACE) Urine Glucose (UA) Negative mg/dL (NEG) Urine Ketones (Stick) Trace mg/dL (NEG) Urine Blood Large (NEG) Urine Nitrite Negative (NEG) Urine Bilirubin Moderate (NEG) Urine Urobilinogen Dipstick 2.0 mg/dL (0.2 mg/dL) Urine Leukocyte Esterase Small (NEG) Urine RBC 20-40 /HPF (0-2) Urine WBC 5-10 /HPF (0-4) Urine Bacteria 0 /HPF (0-FEW) Urine Cellular Casts Few /HPF Urine Hyaline Casts Few /HPF Urine Granular Casts Few /HPF Urine Mucus Marked /LPF Test 03/09/19 23:59 03/10/19 08:05 03/10/19 08:45 O2 Saturation 87 % (92-99) 97 % (92-99) Arterial Blood pH 7.35 (7.35-7.45) 7.53 (7.35-7.45) Arterial Blood pCO2 at Patient Temp 63 mmHg (35-46) 37 mmHg (35-46) Arterial Blood pO2 at Patient Temp 55 mmHg (75-108) 83 mmHg (75-108) Arterial Blood HCO3 34 mmol/L (21-28) 30 mmol/L (21-28) Arterial Blood Base Excess 6 mmol/L (-3-3) 7 mmol/L (-3-3) Oxyhemoglobin 84.6 % Methemoglobin 0.4 % (0.0-1.9) Carbon Monoxide, Quantitative 2.2 % (0.0-1.9) FiO2 100 100 White Blood Count 10.7 x10^3/uL (4.0-11.0) Red Blood Count 5.81 x10^6/uL (4.30-5.70) Hemoglobin 14.1 g/dL (13.0-17.5) Hematocrit 45.4 % (39.0-53.0) Mean Corpuscular Volume 78 fL (79-100) Mean Corpuscular Hemoglobin 24 pg (25-35) Mean Corpuscular Hemoglobin Concent 31 g/dL (31-37) Red Cell Distribution Width 18.7 % (11.5-14.5) Platelet Count 196 x10^3/uL (140-400) Prothrombin Time 17.3 SEC (11.7-14.0) Prothromb Time International Ratio 1.4 (0.8-1.1) Activated Partial Thromboplast Time 33 SEC (24-38) Heparin Anti-Xa Act, Unfractionated < 0.10 IU/mL (0.30-0.70) Sodium Level 147 mmol/L (136-145) Potassium Level 3.7 mmol/L (3.5-5.1) Chloride Level 105 mmol/L (98-107) Carbon Dioxide Level 35 mmol/L (21-32) Anion Gap 7 (6-14) Blood Urea Nitrogen 41 mg/dL (8-26) Creatinine 1.4 mg/dL (0.7-1.3) Estimated GFR (Cockcroft-Gault) 65.4 Glucose Level 90 mg/dL (70-99) Calcium Level 9.1 mg/dL (8.5-10.1) Phosphorus Level 1.9 mg/dL (2.6-4.7) Magnesium Level 1.9 mg/dL (1.8-2.4) Total Bilirubin 2.2 mg/dL (0.2-1.0) Direct Bilirubin 1.0 mg/dL (0.0-0.2) Aspartate Amino Transf (AST/SGOT) 109 U/L (15-37) Alanine Aminotransferase (ALT/SGPT) 295 U/L (16-63) Alkaline Phosphatase 97 U/L (46-116) Total Protein 6.2 g/dL (6.4-8.2) Albumin 2.8 g/dL (3.4-5.0) Triglycerides Level 139 mg/dL (0-150) Cholesterol Level 121 mg/dL (0-200) LDL Cholesterol, Calculated 75 mg/dL (0-100) VLDL Cholesterol, Calculated 28 mg/dL (0-40) Non-HDL Cholesterol Calculated 103 mg/dL (0-129) HDL Cholesterol 18 mg/dL (40-60) Cholesterol/HDL Ratio 6.7 Thyroid Stimulating Hormone (TSH) 2.856 uIU/mL (0.358-3.74) VTE Prophylaxis Ordered VTE Prophylaxis Devices: Yes VTE Pharmacological Prophylaxi: Yes Assessment/Plan Assessment/Plan Acute mixed hypoxic, hypercapnic respiratory failure-CO2 was 127 with a pH of 7.1 on arrival Morbid obesity BMI 42 Severe COPD exacerbation, COPD or on 2-3 L nasal cannula-home dependent 02 History of CHF and diabetes mellitus per documentation SIRS POA, no consulted process on chest x-ray Troponin elevation in the background of the above medical illnesses Mild hyponatremia 134, reactive leukocytosis AK I VMN creatinine 1.2 Hypertension POA-blood pressure 160s systolic Plan ICU Bed, vent bundle Pulmonary consulted I do believe cards WAS consulted because of that mild troponin elevation PPI DVT prophylaxis in this vented patient Start sliding scale insulin every 6 once tube feeds started Monitor labs I did Not start any antibiotics Started on heparin drip by cardiology Critical care 30 LISBET DUNCAN MD Mar 10, 2019 11:03
[2019-03-10] MEDS ORDERED: DEXTROSE 50% 25 GM / 50ML DISP.SYRIN. IV PRN (11:15)
[2019-03-10] MEDS ORDERED: IV DEXTROSE 5% 250 ML BAG. IV PRN (11:15)
[2019-03-10] MEDS ORDERED: CONTRAST GIVEN. MC PRN (11:45)
[2019-03-10] MEDS ORDERED: IOHEXOL 350 MG/ML 100 ML VIAL. IV ONE (11:45)
[2019-03-10] MEDS ORDERED: PIP/TAZO PER PHARMACY MC PRN (11:45)
[2019-03-10] MEDS: INSULIN LISPRO 300 UNITS/3 ML VIAL. SQ SCH ×3 (12:00→23:41)
[2019-03-10] MEDS: IPRATRPIUM/ALBUTEROL 0.5/2.5MG 3 ML NEBU. NEB SCH ×3 (12:00→20:05)
--- NOTE | 2019-03-10 12:06 | CONS ---
DATE OF CONSULTATION: PULMONARY CONSULTATION ATTENDING PHYSICIAN: Dr. Cotter. REASON FOR CONSULTATION: Respiratory failure. HISTORY OF PRESENT ILLNESS: The patient is a 48-year-old morbidly obese -[place] male who has a history of chronic respiratory failure, on home oxygen on a 24-hour basis. He has history of sleep apnea for which he is noncompliant with CPAP. He is morbidly obese with a BMI of 42. He was brought into the hospital after he was noted to be lethargic and disoriented. He lives by himself. He was also short of breath. When he arrived in the ER, he was noted to have a pH of 7.1, pCO2 of 127 and a pO2 of 71. He was intubated. Since then, his ABGs have improved and his latest ABGs have shown a pH of 7.53, pCO2 of 37 and a pO2 of 83 on 100% oxygen, 10 of PEEP and assist control rate of 24. His chest x-rays have shown diffuse bilateral perihilar and interstitial infiltrates. No pneumothorax seen. He has evidence of pulmonary hypertension. I spoke to his brother at the bedside who states he does not do any cocaine or other drugs, but he has been vaping regularly. PAST MEDICAL HISTORY: Significant for history of chronic respiratory failure, history of CHF, hypertension, history of chronic lower extremity edema. History of polycythemia, likely secondary and metabolic syndrome. PAST SURGICAL HISTORY: No recent surgeries. FAMILY HISTORY: Hypertension. SOCIAL HISTORY: He vapes on a chronic basis. History of tobacco use of less than 1 pack per day. ALLERGIES: None. CURRENT MEDICATIONS: Reviewed as listed in the MRAD including DuoNebs, antibiotic Levaquin and heparin per protocol. REVIEW OF SYSTEMS: Unable to obtain from the patient. PHYSICAL EXAMINATION: VITAL SIGNS: Reviewed. T-max of 100.2. HEENT: Sclerae nonicteric. Some periorbital edema. NECK: Supple. LUNGS: With rhonchi anteriorly. CARDIOVASCULAR: With a regular rate. ABDOMEN: Obese. EXTREMITIES: With pitting edema. LABORATORY DATA: Reviewed. ABGs as discussed in my history of present illness. BUN 41 and a creatinine of 1.4. Troponin 1.38. INR is 1.4. White cell count 11.5, hemoglobin 15.7 and platelets are 212. IMPRESSION: 1. Acute hypercapnic respiratory failure secondary to multifactorial etiologies. It could be related to acute lung injury/noncardiogenic pulmonary edema due to vaping. Other possibilities would be [id number] right heart failure with worsening hypercapnia. Possibility of diastolic heart failure is also a consideration. Needs to rule out any central nervous system etiology. Likelihood of pulmonary embolism is less, but needs to rule out as well. 2. Abnormal chest x-ray with diffuse lung infiltrates. Could be noncardiogenic pulmonary edema. We will review CT chest findings. 3. History of morbid obesity with Pickwickian physiology with chronic hypercapnia and chronic hypoxic respiratory failure, history of obstructive sleep apnea as well, but noncompliant to CPAP. 4. Acute kidney injury. 5. Increased troponin. Possible non-ST myocardial infarction. Needs to rule out pulmonary embolism with right ventricular infarction. 6. Previous echo with normal ejection fraction. The echo was done in November. The echo was done in January. 7. History of tobacco use. RECOMMENDATIONS: 1. Continue with present assist control mode and high PEEP. Reduced the rate and make necessary adjustment based on followup ABGs. 2. CTA chest has been ordered. 3. Follow the results of CT head. 4. We will broaden the antibiotic coverage to cover for gram-negative and gram-positive pneumonia. 5. Monitor fever and white cell count. 6. Continue bronchodilators. 7. Heparin per Cardiology. 8. P.r.n. diuresis. 9. Discussed with brother, discussed with RN and RT. We will follow along with you. Critical care time 40 minutes. MARIO ALLEN MD DR: DESTINY/vidya JOB#: [id number] / [id number] CHERRIE
[2019-03-10] MEDS ORDERED: VANCOMYCIN 2 GM in IV NORMAL SALINE 500ML BAG 500 ML IV ONE (13:00)
[2019-03-10] MEDS: PIPERACILLIN/TAZOBACTAM 3.375 GM in IV NORMAL SALINE 50ML 50 ML IV SCH ×3 (14:08→23:31)
--- NOTE | 2019-03-10 14:12 | RAD ---
PQRS Compliance Statement: One or more of the following individualized dose reduction techniques were utilized for this examination: 1. Automated exposure control 2. Adjustment of the mA and/or kV according to patient size 3. Use of iterative reconstruction technique CT head and cervical spine without contrast 03/10/2019 7:00 AM INDICATION: Altered mental status with history of fall COMPARISON: None available TECHNIQUE: Multiple axial CT images of the head were obtained from skull base through the vertex without intravenous contrast. Multiple axial CT images of the cervical spine were obtained without intravenous contrast. Coronal and sagittal reformats are provided. FINDINGS: Head: Ventricles, sulci and basal cisterns are within normal limits. There is no hydrocephalus. Otero-white matter differentiation is normal. There is no acute intracranial hemorrhage. There is no mass, mass effect or midline shift. Posterior fossa is normal in appearance. Bilateral exophthalmos with the posterior aspects of the globes anterior to the intersegmental hepatic line. There is straightening of the optic nerves with prominence of the retropharyngeal fat. There is moderate mucosal thickening involving the right frontal sinus and bilateral maxillary sinuses, right greater than left. Air-fluid level is noted in the right maxillary sinus. Air-fluid level is noted in the and bilateral sphenoid sinuses. There is near complete desiccation of the right ethmoid air cells and mild mucosal thickening of the left ethmoid air cells.. Mastoid air cells are well aerated. Scalp and calvaria are normal. Patient is intubated. Cervical spine: Evaluation is limited by body habitus. Alignment of the cervical spine is normal. Skull base is intact. Craniocervical junction is normal in appearance. Atlantoaxial articulation is normal. Vertebral body heights are maintained without evidence for acute fracture. Facet joints are within normal limits. No significant osseous neural foraminal stenosis. No significant osseous spinal canal stenosis. Transverse foramen are intact. There is no prevertebral soft tissue swelling. Thyroid gland is normal in appearance. Consolidative changes are identified within the bilateral upper lobes with associated pleural effusions. Patient is intubated with nasogastric tube in place. IMPRESSION: 1. No acute intracranial hemorrhage. 2. Pansinus mucosal inflammatory changes are identified. Correlate with any signs and symptoms of sinusitis. 3. No acute fracture or malalignment of the cervical spine. 4. Bilateral exophthalmos. Consideration may be given for underlying thyroid disorder. Electronically signed by: Jo Elkins MD (03/10/2019 2:09 PM) [facility]
--- NOTE | 2019-03-10 14:59 | RAD ---
PORTABLE CHEST 1V 8:15 AM Clinical indications: Respiratory failure. ET tube check. COMPARISON: Same day performed at 2:07 AM FINDINGS/ IMPRESSION: ET tube tip is located 4 cm above the level of the mariely. NG tube is in place. Right IJ central line is unchanged in position. Again seen are bilateral perihilar infiltrates or pulmonary edema. No pneumothorax or pleural effusion is seen. The heart size and mediastinum are stable. Electronically signed by: Giacomo Croft MD (03/10/2019 2:55 PM) [place] [id number]
--- NOTE | 2019-03-10 15:08 | RAD ---
Examination: CT angiography chest HISTORY: History of pulmonary hypertension, respiratory failure COMPARISON: COMPARISON: 01/10/2019 TECHNIQUE: Axial CT angiography images of chest were performed with IV contrast. Coronal and sagittal 3-D MIP reformats are performed. Exposure: One or more of the following individualized dose reduction techniques were utilized for this examination: 1. Automated exposure control 2. Adjustment of the mA and/or kV according to patient size 3. Use of iterative reconstruction technique FINDINGS: The ET tube is identified in the trachea. Mild cardiomegaly. The ascending aorta measures 4.5 cm in transverse dimension. No evidence of pericardial effusion. There is not enough contrast within the pulmonary arteries for evaluation of pulmonary embolism Feeding tube is identified in the stomach. Moderate bibasilar lung consolidation changes with air bronchograms with small bilateral pleural effusions identified. There are faint patchy airspace opacities identified in the bilateral lungs The evaluation of the liver, spleen is limited. Mild degenerative changes thoracic spine. IMPRESSION: 1. Examination is nondiagnostic for pulmonary embolism as there is not enough contrast within the pulmonary artery and its branches. 2. Moderate bibasilar lung consolidation disease with air bronchograms likely pneumonia or atelectasis with small bilateral pleural effusions. 3. Aneurysmal change of the ascending aorta again identified. Electronically signed by: Keagan Stubbs MD (03/10/2019 3:06 PM) [id number]
[2019-03-10] MEDS: VANCOMYCIN PER PHARMACY MC PRN (16:08)
--- NOTE | 2019-03-10 16:08 | NUR ---
Pharmacy Vancomycin Dosing Note S:Consulted to monitor and dose vancomycin started 03/10/19. O:GENESIS TALAVERA is a 48 year old M with pulmonary infiltrates, respiratory failure. Height: 6 feet, 2 inches Weight: 148.5 kg Dosing Weight: Actual Other Antibiotics: LEVAQUIN 500 MG IV Q24HRS LABS: Last BUN: 41 Last Creatinine: 1.4 Creatinine Clearance: 99 mL/min Last WBC: 10.7 Tmax (past 24 hours): 100.2 Microbiology: BLOOD/URINE CX PENDING I/O: 1150/2142 A: Patient requires vancomycin as empiric coverage for pulmonary infiltrates and respiratory failure, goal trough 15-20 mcg/ml until source of infection is known. Patient's SCr is 1.4 with an eCrCl of 99 ml/min; clearance likely inflated due to patient's weight. Will dose conservatively due to current OSMAN: P: 1. Initiate Vancomycin 2000 mg IV x 1 dose, then 1750 mg IV q12h 2. Follow up Trough level on 03/12/19 at 1230 3. Pharmacy will continue to monitor, follow and adjust therapy as needed. GALILEA BA [facility], 03/10/19 [id number]
[2019-03-11] VITALS (30 sets, daily range): BP systolic 74–150; BP diastolic 43–91
[2019-03-11] MEDS: HEPARIN for IV BOLUS 10,000 UNIT/10 ML VIAL. IV PRN (00:57)
[2019-03-11] MEDS: VANCOMYCIN 1.75 GM in IV NORMAL SALINE 500ML BAG 500 ML IV SCH ×2 (01:11→12:43)
[2019-03-11 03:08] LABS: HEMOGLOBIN A1C 6.3 % (4.8-5.6)
[2019-03-11] MEDS: INSULIN LISPRO 300 UNITS/3 ML VIAL. SQ SCH ×3 (06:00→18:00)
[2019-03-11] MEDS: PIPERACILLIN/TAZOBACTAM 3.375 GM in IV NORMAL SALINE 50ML 50 ML IV SCH ×3 (06:12→18:14)
[2019-03-11 07:00] LABS: CALCIUM 7.7 mg/dL (8.5-10.1); CREATININE 1.4 mg/dL (0.7-1.3); GFR 65.4
[2019-03-11 07:02] LABS: POTASSIUM 2.7 mmol/L (3.5-5.1)
[2019-03-11 07:04] LABS: BASO % 0 % (0-3); EOS # 0.1 x10^3/uL (0.0-0.7); EOS % 1 % (0-3); HEMATOCRIT 41.5 % (39.0-53.0); LYMPH # 0.8 x10^3/uL (1.0-4.8); LYMPH % 8 % (24-48); MEAN CORPUSCULAR HEMOGLOBIN 24 pg (25-35); MEAN CORPUSCULAR HGB CONC 31 g/dL (31-37); MEAN CORPUSCULAR VOLUME 77 fL (79-100); MONO % 10 % (0-9); NEUT # 7.3 x10^3/uL (1.8-7.7); NEUT % 80 % (31-73); PLATELET COUNT 175 x10^3/uL (140-400); RED BLOOD COUNT 5.39 x10^6/uL (4.30-5.70); RED CELL DISTRIBUTION WIDTH 18.9 % (11.5-14.5); WHITE BLOOD COUNT 9.1 x10^3/uL (4.0-11.0)
--- NOTE | 2019-03-11 07:46 | RAD ---
CHEST AP ONLY 03/11/2019 5:00 AM INDICATION: Respiratory failure COMPARISON: 03/10/2019 TECHNIQUE: Portable frontal view of the chest is provided. FINDINGS: The cardiomediastinal silhouette is similar in appearance. Endotracheal tube terminates 4.9 cm above the level of the mariely. Nasogastric tube is in similar position. There is moderate pulmonary vascular congestion. Small bilateral pleural effusions, right greater than left. Increase in small right pleural effusion compared to prior examination. No pneumothorax. IMPRESSION: Worsened aeration of the lungs with increase in small right pleural effusion. There are bilateral small pleural effusions with adjacent compressive atelectasis versus infiltrates. Similar moderate pulmonary vascular congestion. Electronically signed by: Jo Elkins MD (03/11/2019 7:43 AM) [facility]
[2019-03-11 07:53] LABS: MAGNESIUM 1.4 mg/dL (1.8-2.4); PHOSPHORUS 2.1 mg/dL (2.6-4.7)
[2019-03-11] MEDS: IPRATRPIUM/ALBUTEROL 0.5/2.5MG 3 ML NEBU. NEB SCH ×4 (07:54→20:25)
--- NOTE | 2019-03-11 08:00 | NUR ---
SS following for discharge planning. SS reviewed pt chart. Pt is self pay pt. HCFS following for self pay status. Pt is from home and is currently on the vent. SS will continue to follow for discharge planning.
[2019-03-11 08:02] LABS: BASE EXCESS ABG 11 mmol/L (-3-3); HCO3 ABG 35 mmol/L (21-28); PCO2 ABG 44 mmHg (35-46); PO2 ABG 78 mmHg (75-108); SAT O2 ABG 96 % (92-99)
[2019-03-11 08:05] LABS: FIO2 ABG 100
[2019-03-11] MEDS ORDERED: amLODIPine BESYLATE 5 MG TABLET PO SCH (09:00)
[2019-03-11] MEDS: MAGNESIUM SULFATE 4GM 100 ML IV SCH (09:22)
[2019-03-11] MEDS: FUROSEMIDE 40 MG/4 ML VIAL. IVP SCH (09:34)
[2019-03-11] MEDS: CHLORHEXIDINE 0.12% 15 ML MOUTHWASH. MM SCH (09:35)
[2019-03-11] MEDS: ASPIRIN CHEWABLE 81 MG TABLET. PO SCH (09:35)
[2019-03-11] MEDS: FAMOTIDINE 20 MG/2 ML VIAL IVP SCH (09:37)
[2019-03-11] MEDS: VANCOMYCIN PER PHARMACY MC PRN (09:42)
[2019-03-11] MEDS: MIDAZOLAM 100mg/100ml NS BAG 100 ML IV PRN ×2 (09:42→15:42)
--- NOTE | 2019-03-11 09:43 | PDOC ---
PROGRESS NOTES History of Present Illness History of Present Illness VTE Prophylaxis Ordered VTE Prophylaxis Devices: Yes VTE Pharmacological Prophylaxi: Yes Assessment/Plan Assessment/Plan Acute mixed hypoxic, hypercapnic respiratory failure-CO2 was 127 with a pH of 7.1 on arrival Morbid obesity BMI 42 Severe COPD exacerbation, COPD or on 2-3 L nasal cannula-home dependent 02 History of CHF and diabetes mellitus per documentation SIRS POA, no consulted process on chest x-ray Troponin elevation in the background of the above medical illnesses Mild hyponatremia 134, reactive leukocytosis AK I VMN creatinine 1.2 Hypertension POA-blood pressure 160s systolic POSSIBLE UTI CTA CHEST Examination is nondiagnostic for pulmonary embolism as there is not enough contrast within the pulmonary artery and its branches. Moderate bibasilar lung consolidation disease with air bronchograms likely pneumonia or atelectasis with small bilateral pleural effusions. Aneurysmal change of the ascending aorta Plan ICU Bed, vent Pulmonary consulted iv zosyn, vanc consult cardiology PPI DVT prophylaxis Start sliding scale insulin every 6 once tube feeds started Monitor labs heparin drip by cardiology orlando knight, per protocol d/w RN BY PHONE URINE CULTURE id consult blood culture sputum culture procalcitonin cc 33 min Vitals Vitals Vital Signs Date Time Temp Pulse Resp B/P (MAP) Pulse Ox O2 Delivery O2 Flow Rate FiO2 03/11/19 09:37 87 131/75 03/11/19 09:19 99 Ventilator 03/11/19 06:18 15.0 03/11/19 06:00 20 03/11/19 04:00 98.8 98.8 Physical Exam General: No acute distress, Other (short neck , Mallampati 4 ON VENT) Heart: Regular rate (SR), Other (distante heart sounds) Lungs: Clear, Crackles Abdomen: Normal bowel sounds, Soft, No tenderness, No hepatosplenomegaly, No masses Extremities: No clubbing, No cyanosis, No edema, Normal pulses, No tenderness/swelling Skin: No rashes, No breakdown, No significant lesion Labs LABS SEX: M EXAM STATUS: ADM IN ORD. PHYSICIAN: MARIO ALLEN MD REASON: RF, pulm htn PROCEDURE: CT ANGIOGRAPHY CHEST Examination: CT angiography chest HISTORY: History of pulmonary hypertension, respiratory failure COMPARISON: COMPARISON: 01/10/2019 TECHNIQUE: Axial CT angiography images of chest were performed with IV contrast. Coronal and sagittal 3-D MIP reformats are performed. Exposure: One or more of the following individualized dose reduction techniques were utilized for this examination: 1. Automated exposure control 2. Adjustment of the mA and/or kV according to patient size 3. Use of iterative reconstruction technique FINDINGS: The ET tube is identified in the trachea. Mild cardiomegaly. The ascending aorta measures 4.5 cm in transverse dimension. No evidence of pericardial effusion. There is not enough contrast within the pulmonary arteries for evaluation of pulmonary embolism Feeding tube is identified in the stomach. Moderate bibasilar lung consolidation changes with air bronchograms with small bilateral pleural effusions identified. There are faint patchy airspace opacities identified in the bilateral lungs The evaluation of the liver, spleen is limited. Mild degenerative changes thoracic spine. IMPRESSION: 1. Examination is nondiagnostic for pulmonary embolism as there is not enough contrast within the pulmonary artery and its branches. 2. Moderate bibasilar lung consolidation disease with air bronchograms likely pneumonia or atelectasis with small bilateral pleural effusions. 3. Aneurysmal change of the ascending aorta again identified. Electronically signed by: Keagan Stubbs MD (03/10/2019 3:06 PM) [id number] DICTATED and SIGNED BY: KEAGAN STUBBS MD DATE: 03/10/19 1506 PATIENT: GENESIS TALAVERA ACCT: [id number] LOC: 1 [facility] ICU U: [id number] AGE/SX: 48/M ROOM: 102 RE03/09/[address]: ADELAIDA VALENTINE MD : 1970 BED: 1 DIS: STATUS: ADM IN TLOC: SPEC #: [id number] SHANITA: 03/09/19 STATUS: RES REQ #: [id number] RECD: 03/09/[address]: WHITNEY HESTER DO SOURCE: BLOOD ENTR: 03/09/[address]: VIDAL KEYESC: ORDERED: BCULT -- Procedure Result BLOOD CULTURE Preliminary NO GROWTH AFTER 1 DAY Laboratory Tests Test 03/10/19 11:29 03/10/19 16:05 03/10/19 17:07 03/10/19 23:30 Glucose (Fingerstick) 84 mg/dL (70-99) 103 mg/dL (70-99) Heparin Anti-Xa Act, Unfractionated 0.12 IU/mL (0.30-0.70) 0.17 IU/mL (0.30-0.70) Test 03/10/19 23:40 03/11/19 06:17 03/11/19 06:35 03/11/19 07:50 Glucose (Fingerstick) 99 mg/dL (70-99) 94 mg/dL (70-99) White Blood Count 9.1 x10^3/uL (4.0-11.0) Red Blood Count 5.39 x10^6/uL (4.30-5.70) Hemoglobin 13.0 g/dL (13.0-17.5) Hematocrit 41.5 % (39.0-53.0) Mean Corpuscular Volume 77 fL (79-100) Mean Corpuscular Hemoglobin 24 pg (25-35) Mean Corpuscular Hemoglobin Concent 31 g/dL (31-37) Red Cell Distribution Width 18.9 % (11.5-14.5) Platelet Count 175 x10^3/uL (140-400) Neutrophils (%) (Auto) 80 % (31-73) Lymphocytes (%) (Auto) 8 % (24-48) Monocytes (%) (Auto) 10 % (0-9) Eosinophils (%) (Auto) 1 % (0-3) Basophils (%) (Auto) 0 % (0-3) Neutrophils # (Auto) 7.3 x10^3/uL (1.8-7.7) Lymphocytes # (Auto) 0.8 x10^3/uL (1.0-4.8) Monocytes # (Auto) 1.0 x10^3/uL (0.0-1.1) Eosinophils # (Auto) 0.1 x10^3/uL (0.0-0.7) Basophils # (Auto) 0.0 x10^3/uL (0.0-0.2) Heparin Anti-Xa Act, Unfractionated 0.46 IU/mL (0.30-0.70) Sodium Level 150 mmol/L (136-145) Potassium Level 2.7 mmol/L (3.5-5.1) Chloride Level 109 mmol/L (98-107) Carbon Dioxide Level 37 mmol/L (21-32) Anion Gap 4 (6-14) Blood Urea Nitrogen 31 mg/dL (8-26) Creatinine 1.4 mg/dL (0.7-1.3) Estimated GFR (Cockcroft-Gault) 65.4 Glucose Level 106 mg/dL (70-99) Calcium Level 7.7 mg/dL (8.5-10.1) Phosphorus Level 2.1 mg/dL (2.6-4.7) Magnesium Level 1.4 mg/dL (1.8-2.4) O2 Saturation 96 % (92-99) Arterial Blood pH 7.52 (7.35-7.45) Arterial Blood pCO2 at Patient Temp 44 mmHg (35-46) Arterial Blood pO2 at Patient Temp 78 mmHg (75-108) Arterial Blood HCO3 35 mmol/L (21-28) Arterial Blood Base Excess 11 mmol/L (-3-3) FiO2 100 Assessment and Plan Assessmemt and Plan Problems Medical Problems: (1) CHF exacerbation Status: Acute (2) COPD exacerbation Status: Acute (3) Hypoxia Status: Acute (4) NSTEMI (non-ST elevated myocardial infarction) Status: Acute (5) Respiratory failure Status: Acute Comment Review of Relevant I have reviewed the following items peter (where applicable) has been applied. Labs Laboratory Tests Test 03/09/19 21:10 03/09/19 21:44 03/09/19 21:45 03/09/19 23:25 White Blood Count 11.5 x10^3/uL (4.0-11.0) Red Blood Count 6.48 x10^6/uL (4.30-5.70) Hemoglobin 15.7 g/dL (13.0-17.5) Hematocrit 51.8 % (39.0-53.0) Mean Corpuscular Volume 80 fL (79-100) Mean Corpuscular Hemoglobin 24 pg (25-35) Mean Corpuscular Hemoglobin Concent 30 g/dL (31-37) Red Cell Distribution Width 19.2 % (11.5-14.5) Platelet Count 212 x10^3/uL (140-400) Neutrophils (%) (Auto) 84 % (31-73) Lymphocytes (%) (Auto) 8 % (24-48) Monocytes (%) (Auto) 7 % (0-9) Eosinophils (%) (Auto) 1 % (0-3) Basophils (%) (Auto) 0 % (0-3) Neutrophils # (Auto) 9.8 x10^3/uL (1.8-7.7) Lymphocytes # (Auto) 0.9 x10^3/uL (1.0-4.8) Monocytes # (Auto) 0.8 x10^3/uL (0.0-1.1) Eosinophils # (Auto) 0.1 x10^3/uL (0.0-0.7) Basophils # (Auto) 0.0 x10^3/uL (0.0-0.2) Sodium Level 148 mmol/L (136-145) Potassium Level 4.2 mmol/L (3.5-5.1) Chloride Level 106 mmol/L (98-107) Carbon Dioxide Level 37 mmol/L (21-32) Anion Gap 5 (6-14) Blood Urea Nitrogen 47 mg/dL (8-26) Creatinine 1.4 mg/dL (0.7-1.3) Estimated GFR (Cockcroft-Gault) 65.4 BUN/Creatinine Ratio 34 (6-20) Glucose Level 95 mg/dL (70-99) Lactic Acid Level 1.6 mmol/L (0.4-2.0) Calcium Level 9.5 mg/dL (8.5-10.1) Magnesium Level 2.2 mg/dL (1.8-2.4) Total Bilirubin 1.9 mg/dL (0.2-1.0) Aspartate Amino Transf (AST/SGOT) 157 U/L (15-37) Alanine Aminotransferase (ALT/SGPT) 405 U/L (16-63) Alkaline Phosphatase 126 U/L (46-116) Creatine Kinase 274 U/L (39-308) Creatine Kinase MB (Mass) 7.3 ng/mL (0.0-3.6) Creatine Kinase MB Relative Index 2.7 % (0-4) Troponin I Quantitative 2.012 ng/mL (0.000-0.055) CJ-Iln-L-Type Natriuretic Peptide 1595 pg/mL (0-124) Total Protein 7.7 g/dL (6.4-8.2) Albumin 3.4 g/dL (3.4-5.0) Albumin/Globulin Ratio 0.8 (1.0-1.7) Glucose (Fingerstick) 102 mg/dL (70-99) O2 Saturation 87 % (92-99) Arterial Blood pH 7.10 (7.35-7.45) Arterial Blood pCO2 at Patient Temp 127 mmHg (35-46) Arterial Blood pO2 at Patient Temp 71 mmHg (75-108) Arterial Blood HCO3 39 mmol/L (21-28) Arterial Blood Base Excess 4 mmol/L (-3-3) Urine Collection Type Unknown Urine Color Esther Urine Clarity Clear Urine pH 5.5 Urine Specific [place] 1.025 Urine Protein 30 mg/dL (NEG-TRACE) Urine Glucose (UA) Negative mg/dL (NEG) Urine Ketones (Stick) Trace mg/dL (NEG) Urine Blood Large (NEG) Urine Nitrite Negative (NEG) Urine Bilirubin Moderate (NEG) Urine Urobilinogen Dipstick 2.0 mg/dL (0.2 mg/dL) Urine Leukocyte Esterase Small (NEG) Urine RBC 20-40 /HPF (0-2) Urine WBC 5-10 /HPF (0-4) Urine Bacteria 0 /HPF (0-FEW) Urine Cellular Casts Few /HPF Urine Hyaline Casts Few /HPF Urine Granular Casts Few /HPF Urine Mucus Marked /LPF Test 03/09/19 23:59 03/10/19 08:05 03/10/19 08:45 03/10/19 11:29 O2 Saturation 87 % (92-99) 97 % (92-99) Arterial Blood pH 7.35 (7.35-7.45) 7.53 (7.35-7.45) Arterial Blood pCO2 at Patient Temp 63 mmHg (35-46) 37 mmHg (35-46) Arterial Blood pO2 at Patient Temp 55 mmHg (75-108) 83 mmHg (75-108) Arterial Blood HCO3 34 mmol/L (21-28) 30 mmol/L (21-28) Arterial Blood Base Excess 6 mmol/L (-3-3) 7 mmol/L (-3-3) Oxyhemoglobin 84.6 % Methemoglobin 0.4 % (0.0-1.9) Carbon Monoxide, Quantitative 2.2 % (0.0-1.9) FiO2 100 100 White Blood Count 10.7 x10^3/uL (4.0-11.0) Red Blood Count 5.81 x10^6/uL (4.30-5.70) Hemoglobin 14.1 g/dL (13.0-17.5) Hematocrit 45.4 % (39.0-53.0) Mean Corpuscular Volume 78 fL (79-100) Mean Corpuscular Hemoglobin 24 pg (25-35) Mean Corpuscular Hemoglobin Concent 31 g/dL (31-37) Red Cell Distribution Width 18.7 % (11.5-14.5) Platelet Count 196 x10^3/uL (140-400) Prothrombin Time 17.3 SEC (11.7-14.0) Prothromb Time International Ratio 1.4 (0.8-1.1) Activated Partial Thromboplast Time 33 SEC (24-38) Heparin Anti-Xa Act, Unfractionated < 0.10 IU/mL (0.30-0.70) Sodium Level 147 mmol/L (136-145) Potassium Level 3.7 mmol/L (3.5-5.1) Chloride Level 105 mmol/L (98-107) Carbon Dioxide Level 35 mmol/L (21-32) Anion Gap 7 (6-14) Blood Urea Nitrogen 41 mg/dL (8-26) Creatinine 1.4 mg/dL (0.7-1.3) Estimated GFR (Cockcroft-Gault) 65.4 Glucose Level 90 mg/dL (70-99) Hemoglobin A1c 6.3 % (4.8-5.6) Calcium Level 9.1 mg/dL (8.5-10.1) Phosphorus Level 1.9 mg/dL (2.6-4.7) Magnesium Level 1.9 mg/dL (1.8-2.4) Total Bilirubin 2.2 mg/dL (0.2-1.0) Direct Bilirubin 1.0 mg/dL (0.0-0.2) Aspartate Amino Transf (AST/SGOT) 109 U/L (15-37) Alanine Aminotransferase (ALT/SGPT) 295 U/L (16-63) Alkaline Phosphatase 97 U/L (46-116) Troponin I Quantitative 1.389 ng/mL (0.000-0.055) Total Protein 6.2 g/dL (6.4-8.2) Albumin 2.8 g/dL (3.4-5.0) Triglycerides Level 139 mg/dL (0-150) Cholesterol Level 121 mg/dL (0-200) LDL Cholesterol, Calculated 75 mg/dL (0-100) VLDL Cholesterol, Calculated 28 mg/dL (0-40) Non-HDL Cholesterol Calculated 103 mg/dL (0-129) HDL Cholesterol 18 mg/dL (40-60) Cholesterol/HDL Ratio 6.7 Thyroid Stimulating Hormone (TSH) 2.856 uIU/mL (0.358-3.74) Glucose (Fingerstick) 84 mg/dL (70-99) Test 03/10/19 16:05 03/10/19 17:07 03/10/19 23:30 03/10/19 23:40 Heparin Anti-Xa Act, Unfractionated 0.12 IU/mL (0.30-0.70) 0.17 IU/mL (0.30-0.70) Glucose (Fingerstick) 103 mg/dL (70-99) 99 mg/dL (70-99) Test 03/11/19 06:17 03/11/19 06:35 03/11/19 07:50 Glucose (Fingerstick) 94 mg/dL (70-99) White Blood Count 9.1 x10^3/uL (4.0-11.0) Red Blood Count 5.39 x10^6/uL (4.30-5.70) Hemoglobin 13.0 g/dL (13.0-17.5) Hematocrit 41.5 % (39.0-53.0) Mean Corpuscular Volume 77 fL (79-100) Mean Corpuscular Hemoglobin 24 pg (25-35) Mean Corpuscular Hemoglobin Concent 31 g/dL (31-37) Red Cell Distribution Width 18.9 % (11.5-14.5) Platelet Count 175 x10^3/uL (140-400) Neutrophils (%) (Auto) 80 % (31-73) Lymphocytes (%) (Auto) 8 % (24-48) Monocytes (%) (Auto) 10 % (0-9) Eosinophils (%) (Auto) 1 % (0-3) Basophils (%) (Auto) 0 % (0-3) Neutrophils # (Auto) 7.3 x10^3/uL (1.8-7.7) Lymphocytes # (Auto) 0.8 x10^3/uL (1.0-4.8) Monocytes # (Auto) 1.0 x10^3/uL (0.0-1.1) Eosinophils # (Auto) 0.1 x10^3/uL (0.0-0.7) Basophils # (Auto) 0.0 x10^3/uL (0.0-0.2) Heparin Anti-Xa Act, Unfractionated 0.46 IU/mL (0.30-0.70) Sodium Level 150 mmol/L (136-145) Potassium Level 2.7 mmol/L (3.5-5.1) Chloride Level 109 mmol/L (98-107) Carbon Dioxide Level 37 mmol/L (21-32) Anion Gap 4 (6-14) Blood Urea Nitrogen 31 mg/dL (8-26) Creatinine 1.4 mg/dL (0.7-1.3) Estimated GFR (Cockcroft-Gault) 65.4 Glucose Level 106 mg/dL (70-99) Calcium Level 7.7 mg/dL (8.5-10.1) Phosphorus Level 2.1 mg/dL (2.6-4.7) Magnesium Level 1.4 mg/dL (1.8-2.4) O2 Saturation 96 % (92-99) Arterial Blood pH 7.52 (7.35-7.45) Arterial Blood pCO2 at Patient Temp 44 mmHg (35-46) Arterial Blood pO2 at Patient Temp 78 mmHg (75-108) Arterial Blood HCO3 35 mmol/L (21-28) Arterial Blood Base Excess 11 mmol/L (-3-3) FiO2 100 Laboratory Tests Test 03/10/19 11:29 03/10/19 16:05 03/10/19 17:07 03/10/19 23:30 Glucose (Fingerstick) 84 mg/dL (70-99) 103 mg/dL (70-99) Heparin Anti-Xa Act, Unfractionated 0.12 IU/mL (0.30-0.70) 0.17 IU/mL (0.30-0.70) Test 03/10/19 23:40 03/11/19 06:17 03/11/19 06:35 03/11/19 07:50 Glucose (Fingerstick) 99 mg/dL (70-99) 94 mg/dL (70-99) White Blood Count 9.1 x10^3/uL (4.0-11.0) Red Blood Count 5.39 x10^6/uL (4.30-5.70) Hemoglobin 13.0 g/dL (13.0-17.5) Hematocrit 41.5 % (39.0-53.0) Mean Corpuscular Volume 77 fL (79-100) Mean Corpuscular Hemoglobin 24 pg (25-35) Mean Corpuscular Hemoglobin Concent 31 g/dL (31-37) Red Cell Distribution Width 18.9 % (11.5-14.5) Platelet Count 175 x10^3/uL (140-400) Neutrophils (%) (Auto) 80 % (31-73) Lymphocytes (%) (Auto) 8 % (24-48) Monocytes (%) (Auto) 10 % (0-9) Eosinophils (%) (Auto) 1 % (0-3) Basophils (%) (Auto) 0 % (0-3) Neutrophils # (Auto) 7.3 x10^3/uL (1.8-7.7) Lymphocytes # (Auto) 0.8 x10^3/uL (1.0-4.8) Monocytes # (Auto) 1.0 x10^3/uL (0.0-1.1) Eosinophils # (Auto) 0.1 x10^3/uL (0.0-0.7) Basophils # (Auto) 0.0 x10^3/uL (0.0-0.2) Heparin Anti-Xa Act, Unfractionated 0.46 IU/mL (0.30-0.70) Sodium Level 150 mmol/L (136-145) Potassium Level 2.7 mmol/L (3.5-5.1) Chloride Level 109 mmol/L (98-107) Carbon Dioxide Level 37 mmol/L (21-32) Anion Gap 4 (6-14) Blood Urea Nitrogen 31 mg/dL (8-26) Creatinine 1.4 mg/dL (0.7-1.3) Estimated GFR (Cockcroft-Gault) 65.4 Glucose Level 106 mg/dL (70-99) Calcium Level 7.7 mg/dL (8.5-10.1) Phosphorus Level 2.1 mg/dL (2.6-4.7) Magnesium Level 1.4 mg/dL (1.8-2.4) O2 Saturation 96 % (92-99) Arterial Blood pH 7.52 (7.35-7.45) Arterial Blood pCO2 at Patient Temp 44 mmHg (35-46) Arterial Blood pO2 at Patient Temp 78 mmHg (75-108) Arterial Blood HCO3 35 mmol/L (21-28) Arterial Blood Base Excess 11 mmol/L (-3-3) FiO2 100 Microbiology 03/10/19 Blood Culture - Preliminary, Resulted NO GROWTH AFTER 1 DAY Medications Current Medications Albuterol/ Ipratropium (Duoneb) 3 ml 1X ONCE NEB Last administered on 03/09/19at 21:21; Start 03/09/19 at 21:30; Stop 03/09/19 at 21:31; Status DC Dexamethasone Sodium Phosphate (Decadron) 10 mg 1X ONCE IV Last administered on 03/09/19at 22:29; Start 03/09/19 at 22:00; Stop 03/09/19 at 22:01; Status DC Propofol 100 ml @ 0 mls/hr CONT PRN IV SEE PROTOCOL Last administered on 03/10/19at 07:19; Start 03/09/19 at 22:30; Stop 03/10/19 at 07:28; Status DC Fentanyl Citrate (Fentanyl 2ml Vial) 50 mcg PRN Q1HR PRN IV SEE COMMENTS; Start 03/09/19 at 22:30; Stop 03/10/19 at 07:28; Status DC Chlorhexidine Gluconate (Peridex) 15 ml BID MM Last administered on 03/11/19at 09:37; Start 03/10/19 at 09:00 Famotidine (Pepcid Vial) 20 mg BID IVP Last administered on 03/11/19at 09:37; Start 03/10/19 at 09:00 Propofol 50 ml @ As Directed STK-MED ONCE IV ; Start 03/09/19 at 22:28; Stop 03/09/19 at 22:28; Status DC Albuterol/ Ipratropium (Duoneb) 3 ml 1X ONCE NEB Last administered on 03/10/19at 02:04; Start 03/09/19 at 23:00; Stop 03/09/19 at 23:01; Status DC Albuterol/ Ipratropium (Duoneb) 3 ml 1X ONCE NEB Last administered on 03/10/19at 02:04; Start 03/09/19 at 23:00; Stop 03/09/19 at 23:01; Status DC Fentanyl Citrate (Fentanyl 2ml Vial) 100 mcg 1X ONCE IV Last administered on 03/09/19at 23:31; Start 03/09/19 at 23:30; Stop 03/09/19 at 23:31; Status DC Bumetanide (Bumex) 1 mg 1X ONCE IV Last administered on 03/10/19at 00:21; Start 03/10/19 at 00:00; Stop 03/10/19 at 00:01; Status DC Heparin Sodium (Porcine) (Heparin Sodium) 4,000 unit 1X ONCE IV Last administered on 03/10/19at 00:31; Start 03/10/19 at 00:00; Stop 03/10/19 at 00:01; Status DC Heparin Sodium/ Dextrose 500 ml @ 0 mls/hr CONT PRN IV PER PROTOCOL Last administered on 03/10/19at 23:34; Start 03/09/19 at 23:45 Heparin Sodium (Porcine) (Heparin Sodium) 5,500 unit PRN Q6HRS PRN IV FOR UFH LEVEL LESS THAN 0.2 Last administered on 03/11/19at 00:57; Start 03/09/19 at 23:45 Aspirin (Aspirin Rectal Supp) 300 mg 1X ONCE ME Last administered on 03/10/19at 03:42; Start 03/10/19 at 00:00; Stop 03/10/19 at 00:01; Status DC Propofol 50 ml @ As Directed STK-MED ONCE IV ; Start 03/09/19 at 23:38; Stop 03/09 at 23:38; Status DC Propofol 50 ml @ As Directed STK-MED ONCE IV ; Start 03/09/19 at 23:38; Stop 03/09/19 at 23:38; Status DC Piperacillin Sod/ Tazobactam Sod 4.5 gm/Sodium Chloride 100 ml @ 200 mls/hr 1X ONCE IV Last administered on 03/10/19at 05:19; Start 03/10/19 at 00:30; Stop 03/10/19 at 00:59; Status DC Propofol 50 ml @ As Directed STK-MED ONCE IV ; Start 03/10/19 at 00:51; Stop 03/10/19 at 00:51; Status DC Propofol 50 ml @ As Directed STK-MED ONCE IV ; Start 03/10/19 at 01:14; Stop 03/10/19 at 01:15; Status DC Fentanyl Citrate (Fentanyl 2ml Vial) 100 mcg 1X ONCE IV Last administered on 03/10/19at 01:26; Start 03/10/19 at 01:45; Stop 03/10/19 at 01:46; Status DC Clonidine HCl (Catapres) 0.1 mg 1X ONCE PO ; Start 03/10/19 at 01:30; Stop 03/10/19 at 01:34; Status DC Midazolam HCl (Versed) 5 mg 1X ONCE IV Last administered on 03/10/19at 01:28; Start 03/10/19 at 01:30; Stop 03/10/19 at 01:34; Status DC Propofol 50 ml @ As Directed STK-MED ONCE IV ; Start 03/10/19 at 02:08; Stop 03/10/19 at 02:09; Status DC Propofol 50 ml @ As Directed STK-MED ONCE IV ; Start 03/10/19 at 02:36; Stop 03/10/19 at 02:36; Status DC Rocuronium [place] (Zemuron) 50 mg STK-MED ONCE .ROUTE ; Start 03/10/19 at 05:15; Stop 03/10/19 at 05:15; Status DC Etomidate (Amidate) 20 mg STK-MED ONCE IV ; Start 03/10/19 at 05:15; Stop 03/10/19 at 05:16; Status DC Fentanyl Citrate 30 ml @ 0 mls/hr CONT PRN IV SEE PROTOCOL Last administered on 03/11/19at 05:17; Start 03/10/19 at 07:30 Propofol 100 ml @ 0 mls/hr CONT PRN IV SEE PROTOCOL; Start 03/10/19 at 07:30 Fentanyl Citrate (Fentanyl 2ml Vial) 25 mcg PRN Q1HR PRN IV SEE COMMENTS; Start 03/10/19 at 07:30 Fentanyl Citrate (Fentanyl 2ml Vial) 50 mcg PRN Q1HR PRN IV SEE COMMENTS; Start 03/10/19 at 07:30 Artificial Tears (Artificial Tears) 1 drop PRN Q1HR PRN OU DRY EYE; Start 03/10/19 at 07:30 Famotidine (Pepcid Vial) 20 mg BID IVP ; Start 03/10/19 at 09:00; Status UNV Morphine Sulfate (Morphine Sulfate) 2 mg PRN Q1HR PRN IV SEE COMMENTS.; Start 03/10/19 at 07:30 Morphine Sulfate (Morphine Sulfate) 4 mg PRN Q1HR PRN IV SEE COMMENTS.; Start 03/10/19 at 07:30 Midazolam HCl 100 ml @ 0 mls/hr CONT PRN IV SEE PROTOCOL Last administered on 03/10/19at 23:34; Start 03/10/19 at 07:30 Levofloxacin/ Dextrose (Levaquin Per Pharmacy) 1 each PRN DAILY PRN MC SEE COMMENTS; Start 03/10/19 at 08:15 Albuterol/ Ipratropium (Duoneb) 3 ml RTQID NEB Last administered on 03/11/19at 07:54; Start 03/10/19 at 12:00 Sodium Chloride 1,000 ml @ 100 mls/hr Q10H IV Last administered on 03/10/19at 23:34; Start 03/10/19 at 08:15 Amlodipine Besylate (Norvasc) 5 mg DAILY PO Last administered on 03/10/19at 09:13; Start 03/10/19 at 09:00; Stop 03/10/19 at 10:04; Status DC Hydrochlorothiazide (Hydrodiuril) 25 mg DAILY PO Last administered on 03/10/19at 09:13; Start 03/10/19 at 09:00; Stop 03/10/19 at 10:04; Status DC Lisinopril (Prinivil) 5 mg DAILY PO Last administered on 03/10/19at 09:13; Start 03/10/19 at 09:00; Stop 03/10/19 at 10:04; Status DC Levofloxacin/ Dextrose 100 ml @ 100 mls/hr Q24H IV Last administered on 03/11/19at 09:37; Start 03/10/19 at 09:00 Aspirin (Amanda Aspirin) 325 mg 1X ONCE PO Last administered on 03/10/19at 10:55; Start 03/10/19 at 10:30; Stop 03/10/19 at 10:31; Status DC Aspirin (Children'S Aspirin) 81 mg DAILYWBKFT PO Last administered on 03/11/19at 09:37; Start 03/11/19 at 08:00 Amlodipine Besylate (Norvasc) 10 mg DAILY PO Last administered on 03/11/19at 09:37; Start 03/11/19 at 09:00 Hydralazine HCl (Apresoline Inj) 10 mg PRN Q4HRS PRN IVP ELEVATED BP, SEE COMMENTS; Start 03/10/19 at 10:15 Furosemide (Lasix) 40 mg DAILY IVP Last administered on 03/11/19at 09:37; Start 03/10/19 at 11:00 Insulin Human Lispro (HumaLOG) 0-9 UNITS TIDWMEALS SQ ; Start 03/10/19 at 12:00; Stop 03/10/19 at 17:57; Status DC Dextrose (Dextrose 50%-Water Syringe) 12.5 gm PRN Q15MIN PRN IV SEE COMMENTS; Start 03/10/19 at 11:15 Dextrose 250 ml PRN Q15MIN PRN IV SEE COMMENTS; Start 03/10/19 at 11:15; Stop 03/10/19 at 11:05; Status DC Iohexol (Omnipaque 350 Mg/ml) 100 ml 1X ONCE IV Last administered on 03/10/19at 14:05; Start 03/10/19 at 11:45; Stop 03/10/19 at 11:47; Status DC Info (CONTRAST GIVEN -- Rx MONITORING) 1 each PRN DAILY PRN MC SEE COMMENTS; Start 03/10/19 at 11:45; Stop 03/12/19 at 11:44 Piperacillin Sod/ Tazobactam Sod (Zosyn Per Pharmacy) 1 each PRN DAILY PRN MC SEE COMMENTS; Start 03/10/19 at 11:45 Vancomycin HCl (Vanco Per Pharmacy) 1 each PRN DAILY PRN MC SEE COMMENTS Last administered on 03/10/19at 16:08; Start 03/10/19 at 11:45 Vancomycin HCl 2 gm/Sodium Chloride 500 ml @ 250 mls/hr 1X ONCE IV Last administered on 03/10/19at 12:41; Start 03/10/19 at 13:00; Stop 03/10/19 at 14:59; Status DC Piperacillin Sod/ Tazobactam Sod 3.375 gm/Sodium Chloride 50 ml @ 100 mls/hr Q6HRS IV Last administered on 03/11/19at 06:18; Start 03/10/19 at 12:30 Vancomycin HCl 1.75 gm/Sodium Chloride 500 ml @ 250 mls/hr Q12H IV Last admi nistered on 03/11/19at 01:11; Start 03/11/19 at 01:00 Vancomycin HCl (Vancomycin Trough Level) 1 each 1X ONCE MC ; Start 03/12/19 at 12:30; Stop 03/12/19 at 12:31 Insulin Human Lispro (HumaLOG) 0-9 UNITS Q6HRS SQ ; Start 03/11/19 at 00:00 Magnesium Sulfate/ Dextrose 100 ml @ 50 mls/hr DAILY IV Last administered on 03/11/19at 09:28; Start 03/11/19 at 09:00; Stop 03/14/19 at 08:59 Potassium Phosphate 27.2 mmol/Sodium Chloride 259.0667 ml @ 64.753 m... 1X ONCE IV Last administered on 03/11/19at 09:28; Start 03/11/19 at 10:00; Stop 03/11/19 at 14:00 Potassium Phosphate 27.2 mmol/Sodium Chloride 259.0667 ml @ 64.753 m... 1X ONCE IV ; Start 03/11/19 at 14:00; Stop 03/11/19 at 18:00 Active Scripts Active Norvasc (Amlodipine Besylate) 5 Mg Tablet 1 Tab PO DAILY Lisinopril 5 Mg Tablet 1 Tab PO DAILY Reported Hydrochlorothiazide Tablet (Hydrochlorothiazide) 25 Mg Tablet 25 Mg PO DAILY Vitals/I & O Vital Sign - Last 24 Hours 03/10/19 03/10/19 03/10/19 03/10/19 09:50 10:00 10:59 11:55 Temp 99.6 99.6 Pulse 88 85 Resp 24 24 B/P (MAP) 160/84 (109) 119/65 (83) Pulse Ox 100 100 100 100 O2 Delivery Ventilator Ventilator Ventilator Ventilator 03/10/19 03/10/19 03/10/19 03/10/19 12:00 12:00 13:00 13:55 Pulse 82 82 Resp 20 20 B/P (MAP) 140/92 (108) 129/68 (88) Pulse Ox 100 100 100 O2 Delivery Ventilator Mechanical Ventilator Ventilator Ventilator 03/10/19 03/10/19 03/10/19 03/10/19 14:00 14:01 15:00 15:16 Temp 98.7 98.7 Pulse 97 78 Resp 20 20 20 20 B/P (MAP) 149/77 (101) 135/70 (91) Pulse Ox 100 100 100 100 O2 Delivery Ventilator Ventilator Ventilator Ventilator 03/10/19 03/10/19 03/10/19 03/10/19 16:00 16:00 16:00 17:00 Pulse 74 73 Resp 20 20 B/P (MAP) 138/78 (98) 148/83 (104) Pulse Ox 100 100 100 O2 Delivery Ventilator Mechanical Ventilator Ventilator Ventilator 03/10/19 03/10/19 03/10/19 03/10/19 17:57 18:09 19:00 19:36 Pulse 75 75 Resp 20 20 16 B/P (MAP) 153/83 (106) 138/72 (94) Pulse Ox 100 100 100 100 O2 Delivery Ventilator Ventilator Ventilator O2 Flow Rate 15.0 03/10/19 03/10/19 03/10/19 03/10/19 20:00 20:00 20:00 21:00 Temp 98.5 98.5 Pulse 74 77 Resp 18 20 B/P (MAP) 138/75 (96) 134/71 (92) Pulse Ox 100 100 100 O2 Delivery Mechanical Ventilator Ventilator Ventilator Ventilator 03/10/19 03/10/19 03/10/19 03/10/19 22:00 23:00 23:18 23:34 Pulse 66 64 Resp 18 19 20 B/P (MAP) 149/81 (103) 123/69 (87) Pulse Ox 100 100 100 100 O2 Delivery Ventilator Ventilator Ventilator O2 Flow Rate 15.0 03/10/19 03/10/19 03/11/19 03/11/19 23:55 23:59 01:00 01:09 Temp 98.5 98.5 Pulse 65 Resp 21 20 20 B/P (MAP) 126/81 (96) Pulse Ox 100 100 100 O2 Delivery Mechanical Ventilator Ventilator O2 Flow Rate 15.0 15.0 03/11/19 03/11/19 03/11/19 03/11/19 01:34 02:00 03:00 03:36 Pulse 61 72 Resp 20 20 B/P (MAP) 121/70 (87) 122/64 (83) Pulse Ox 100 100 100 100 O2 Delivery Ventilator Ventilator Ventilator Ventilator 03/11/19 03/11/19 03/11/19 03/11/19 04:00 04:00 05:00 05:17 Temp 98.8 98.8 Pulse 69 67 Resp 20 20 B/P (MAP) 115/68 (84) 108/58 (75) Pulse Ox 100 100 100 O2 Delivery Ventilator Mechanical Ventilator Ventilator O2 Flow Rate 15.0 03/11/19 03/11/19 03/11/19 03/11/19 05:41 06:00 06:18 07:45 Pulse 69 Resp 20 B/P (MAP) 138/80 (99) Pulse Ox 100 100 100 100 O2 Delivery Ventilator Ventilator Ventilator O2 Flow Rate 15.0 03/11/19 03/11/19 09:19 09:37 Pulse 87 B/P (MAP) 131/75 Pulse Ox 99 O2 Delivery Ventilator Intake and Output 03/10/19 03/10/19 03/11/19 15:00 23:00 07:00 Intake Total 900 ml 1427 ml 3252 ml Output Total 2042 ml 2000 ml 975 ml Balance -1142 ml -573 ml 2277 ml PRICILA GOMEZ MD Mar 11, 2019 09:43
[2019-03-11] MEDS ORDERED: POTASSIUM PHOSPHATE DIBASIC IV ONE ×2 (10:00→14:00)
[2019-03-11] MEDS ORDERED: NORMAL SALINE IV ONE ×2 (10:00→14:00)
[2019-03-11] MEDS ORDERED: IV NORMAL SALINE 1000ML BAG 1,000 ML IV ONE (11:30)
[2019-03-11] MEDS: NOREPINEPHRIN 8MG/250ML PREMIX 250 ML IV PRN (13:04)
--- NOTE | 2019-03-11 13:42 | PDOC ---
SAAD RAMEY CIVIL ENGINEER'S AIDE 03/11/19 1342: CARDIO Progress Notes Date and Time Date of Service 03/11/2019 Time of Evaluation 1330 Subjective Subjective: Other (intubated, sedated) Vitals Vitals Vital Signs Date Time Temp Pulse Resp B/P (MAP) Pulse Ox O2 Delivery O2 Flow Rate FiO2 03/11/19 13:07 97 Ventilator 03/11/19 12:42 18 03/11/19 11:00 62 90/49 (63) 03/11/19 08:00 98.3 98.3 03/11/19 06:18 15.0 Weight Weight [ ] Input and Output Intake and Output Intake and Output 03/11/19 07:00 Intake Total 5579 ml Output Total 5117 ml Balance 462 ml Intake IV Total 4654 ml Tube Feeding 825 ml Other 100 ml Output Urine Total 5117 ml Laboratory Labs Laboratory Tests Test 03/10/19 16:05 03/10/19 17:07 03/10/19 23:30 03/10/19 23:40 Heparin Anti-Xa Act, Unfractionated 0.12 IU/mL (0.30-0.70) 0.17 IU/mL (0.30-0.70) Glucose (Fingerstick) 103 mg/dL (70-99) 99 mg/dL (70-99) Test 03/11/19 06:17 03/11/19 06:35 03/11/19 07:50 03/11/19 12:00 Glucose (Fingerstick) 94 mg/dL (70-99) White Blood Count 9.1 x10^3/uL (4.0-11.0) Red Blood Count 5.39 x10^6/uL (4.30-5.70) Hemoglobin 13.0 g/dL (13.0-17.5) Hematocrit 41.5 % (39.0-53.0) Mean Corpuscular Volume 77 fL (79-100) Mean Corpuscular Hemoglobin 24 pg (25-35) Mean Corpuscular Hemoglobin Concent 31 g/dL (31-37) Red Cell Distribution Width 18.9 % (11.5-14.5) Platelet Count 175 x10^3/uL (140-400) Neutrophils (%) (Auto) 80 % (31-73) Lymphocytes (%) (Auto) 8 % (24-48) Monocytes (%) (Auto) 10 % (0-9) Eosinophils (%) (Auto) 1 % (0-3) Basophils (%) (Auto) 0 % (0-3) Neutrophils # (Auto) 7.3 x10^3/uL (1.8-7.7) Lymphocytes # (Auto) 0.8 x10^3/uL (1.0-4.8) Monocytes # (Auto) 1.0 x10^3/uL (0.0-1.1) Eosinophils # (Auto) 0.1 x10^3/uL (0.0-0.7) Basophils # (Auto) 0.0 x10^3/uL (0.0-0.2) Heparin Anti-Xa Act, Unfractionated 0.46 IU/mL (0.30-0.70) 0.29 IU/mL (0.30-0.70) Sodium Level 150 mmol/L (136-145) Potassium Level 2.7 mmol/L (3.5-5.1) Chloride Level 109 mmol/L (98-107) Carbon Dioxide Level 37 mmol/L (21-32) Anion Gap 4 (6-14) Blood Urea Nitrogen 31 mg/dL (8-26) Creatinine 1.4 mg/dL (0.7-1.3) Estimated GFR (Cockcroft-Gault) 65.4 Glucose Level 106 mg/dL (70-99) Calcium Level 7.7 mg/dL (8.5-10.1) Phosphorus Level 2.1 mg/dL (2.6-4.7) Magnesium Level 1.4 mg/dL (1.8-2.4) O2 Saturation 96 % (92-99) Arterial Blood pH 7.52 (7.35-7.45) Arterial Blood pCO2 at Patient Temp 44 mmHg (35-46) Arterial Blood pO2 at Patient Temp 78 mmHg (75-108) Arterial Blood HCO3 35 mmol/L (21-28) Arterial Blood Base Excess 11 mmol/L (-3-3) FiO2 100 Test 03/11/19 12:11 Glucose (Fingerstick) 105 mg/dL (70-99) Microbiology Micro Microbiology 03/10/19 Blood Culture - Preliminary, Resulted NO GROWTH AFTER 1 DAY Physical Exam HEENT: Neck Supple W Full Motion Chest: Symmetric LUNGS: Other (diminished; vent /intubated) Heart: S1S2, RRR (SR), other (distant heart sounds) Abdomen: Other (obese) Extremities: Other (3+ bilateral LE pitting edema) Assessment Assessment 1. Acute respiratory failure hypoxemic/hypercapnic with COPD/CHF/SHARON: intubated/vent 2. Malignant HTN: became hypotensive today 3. OSMAN with hypokalemia 4. Acute on chronic diastolic CHF 5. NSTEMI: peak trop 2, suspect type2 with above culprits 6. Mild coagulopathy with polycythemia 7. Morbid obesity 8. Chronic lymphedema 9. Metabolic syndrome 10. Hx of TAA: 4.[address] 11. Sepsis? Recommendations 1. Replace K and Mg. Levophed to titrate. Lasix PRN for now. Received dose this am. 2. DC heparin drip. ASA. Defer VTE prophylaxis to PCP 3. May hold BP meds for now. Vagal episode in the 40s, no significant arrhythmia, maintaining SR 4. Follow pulmonary recommendations 5. Ischemic workup possibly as an outpt. Supportive care for now. SHERI BUSTILLO MD 03/11/195: CARDIO Progress Notes Plan Plan Patient seen and examined. Agree with above nurse practitioner note. No significant changes from yesterday. Continues to suffer from hypoxic and hypercapnic respiratory failure. Hypotensive in today likely related to vaso-plegia and/or infection No specific acute cardiac issues at this time. Agree with levophed for hypotension Will follow along peripherally. SAAD RAMEY APRN Mar 11, 2019 13:42 SHERI BUSTILLO MD Mar 11, 2019 19:05
--- NOTE | 2019-03-11 14:00 | PDOC ---
Infectious Disease Note Vital Sign Vital Signs Vital Signs Date Time Temp Pulse Resp B/P (MAP) Pulse Ox O2 Delivery O2 Flow Rate FiO2 03/11/19 13:07 97 Ventilator 03/11/19 12:42 18 03/11/19 11:00 62 90/49 (63) 03/11/19 08:00 98.3 98.3 03/11/19 06:18 15.0 Labs Lab Laboratory Tests Test 03/10/19 16:05 03/10/19 17:07 03/10/19 23:30 03/10/19 23:40 Heparin Anti-Xa Act, Unfractionated 0.12 IU/mL (0.30-0.70) 0.17 IU/mL (0.30-0.70) Glucose (Fingerstick) 103 mg/dL (70-99) 99 mg/dL (70-99) Test 03/11/19 06:17 03/11/19 06:35 03/11/19 07:50 03/11/19 12:00 Glucose (Fingerstick) 94 mg/dL (70-99) White Blood Count 9.1 x10^3/uL (4.0-11.0) Red Blood Count 5.39 x10^6/uL (4.30-5.70) Hemoglobin 13.0 g/dL (13.0-17.5) Hematocrit 41.5 % (39.0-53.0) Mean Corpuscular Volume 77 fL (79-100) Mean Corpuscular Hemoglobin 24 pg (25-35) Mean Corpuscular Hemoglobin Concent 31 g/dL (31-37) Red Cell Distribution Width 18.9 % (11.5-14.5) Platelet Count 175 x10^3/uL (140-400) Neutrophils (%) (Auto) 80 % (31-73) Lymphocytes (%) (Auto) 8 % (24-48) Monocytes (%) (Auto) 10 % (0-9) Eosinophils (%) (Auto) 1 % (0-3) Basophils (%) (Auto) 0 % (0-3) Neutrophils # (Auto) 7.3 x10^3/uL (1.8-7.7) Lymphocytes # (Auto) 0.8 x10^3/uL (1.0-4.8) Monocytes # (Auto) 1.0 x10^3/uL (0.0-1.1) Eosinophils # (Auto) 0.1 x10^3/uL (0.0-0.7) Basophils # (Auto) 0.0 x10^3/uL (0.0-0.2) Heparin Anti-Xa Act, Unfractionated 0.46 IU/mL (0.30-0.70) 0.29 IU/mL (0.30-0.70) Sodium Level 150 mmol/L (136-145) Potassium Level 2.7 mmol/L (3.5-5.1) Chloride Level 109 mmol/L (98-107) Carbon Dioxide Level 37 mmol/L (21-32) Anion Gap 4 (6-14) Blood Urea Nitrogen 31 mg/dL (8-26) Creatinine 1.4 mg/dL (0.7-1.3) Estimated GFR (Cockcroft-Gault) 65.4 Glucose Level 106 mg/dL (70-99) Calcium Level 7.7 mg/dL (8.5-10.1) Phosphorus Level 2.1 mg/dL (2.6-4.7) Magnesium Level 1.4 mg/dL (1.8-2.4) O2 Saturation 96 % (92-99) Arterial Blood pH 7.52 (7.35-7.45) Arterial Blood pCO2 at Patient Temp 44 mmHg (35-46) Arterial Blood pO2 at Patient Temp 78 mmHg (75-108) Arterial Blood HCO3 35 mmol/L (21-28) Arterial Blood Base Excess 11 mmol/L (-3-3) FiO2 100 Test 03/11/19 12:11 Glucose (Fingerstick) 105 mg/dL (70-99) Micro Microbiology 03/10/19 Blood Culture - Preliminary, Resulted NO GROWTH AFTER 1 DAY Objective Assessment Pulmonary infiltrate CHF Obesity Vaping Respiratory failure Plan Plan of Care change vanc to zyvox cont zosyn and levaquin sputum culture supportive care EDISON TABOR MD Mar 11, 2019 14:00
[2019-03-11 15:49] LABS: MAGNESIUM 2.2 mg/dL (1.8-2.4); PHOSPHORUS 3.7 mg/dL (2.6-4.7); POTASSIUM 3.2 mmol/L (3.5-5.1)
[2019-03-11] MEDS: POTASSIUM CHL 20MEQ PREMIX 50 ML IV SCH ×2 (16:27→17:28)
--- NOTE | 2019-03-11 18:10 | PDOC ---
PULMONARY PROGRESS NOTES Subjective remains intubated, sedated on 90% FIO2, 10 of PEEP Vitals Vital Signs Date Time Temp Pulse Resp B/P (MAP) Pulse Ox O2 Delivery O2 Flow Rate FiO2 03/11/19 17:00 65 18 119/72 (88) 90 Ventilator 03/11/19 16:00 98.4 98.4 03/11/19 06:18 15.0 Lungs: Other (decrease bs) Cardiovascular: S1, S2 Abdomen: Soft, Other (obese) Extremities: Other (trace edema) Labs Laboratory Tests Test 03/09/19 21:10 03/09/19 21:44 03/09/19 21:45 03/09/19 23:25 White Blood Count 11.5 x10^3/uL (4.0-11.0) Red Blood Count 6.48 x10^6/uL (4.30-5.70) Hemoglobin 15.7 g/dL (13.0-17.5) Hematocrit 51.8 % (39.0-53.0) Mean Corpuscular Volume 80 fL (79-100) Mean Corpuscular Hemoglobin 24 pg (25-35) Mean Corpuscular Hemoglobin Concent 30 g/dL (31-37) Red Cell Distribution Width 19.2 % (11.5-14.5) Platelet Count 212 x10^3/uL (140-400) Neutrophils (%) (Auto) 84 % (31-73) Lymphocytes (%) (Auto) 8 % (24-48) Monocytes (%) (Auto) 7 % (0-9) Eosinophils (%) (Auto) 1 % (0-3) Basophils (%) (Auto) 0 % (0-3) Neutrophils # (Auto) 9.8 x10^3/uL (1.8-7.7) Lymphocytes # (Auto) 0.9 x10^3/uL (1.0-4.8) Monocytes # (Auto) 0.8 x10^3/uL (0.0-1.1) Eosinophils # (Auto) 0.1 x10^3/uL (0.0-0.7) Basophils # (Auto) 0.0 x10^3/uL (0.0-0.2) Sodium Level 148 mmol/L (136-145) Potassium Level 4.2 mmol/L (3.5-5.1) Chloride Level 106 mmol/L (98-107) Carbon Dioxide Level 37 mmol/L (21-32) Anion Gap 5 (6-14) Blood Urea Nitrogen 47 mg/dL (8-26) Creatinine 1.4 mg/dL (0.7-1.3) Estimated GFR (Cockcroft-Gault) 65.4 BUN/Creatinine Ratio 34 (6-20) Glucose Level 95 mg/dL (70-99) Lactic Acid Level 1.6 mmol/L (0.4-2.0) Calcium Level 9.5 mg/dL (8.5-10.1) Magnesium Level 2.2 mg/dL (1.8-2.4) Total Bilirubin 1.9 mg/dL (0.2-1.0) Aspartate Amino Transf (AST/SGOT) 157 U/L (15-37) Alanine Aminotransferase (ALT/SGPT) 405 U/L (16-63) Alkaline Phosphatase 126 U/L (46-116) Creatine Kinase 274 U/L (39-308) Creatine Kinase MB (Mass) 7.3 ng/mL (0.0-3.6) Creatine Kinase MB Relative Index 2.7 % (0-4) Troponin I Quantitative 2.012 ng/mL (0.000-0.055) NA-Pln-Q-Type Natriuretic Peptide 1595 pg/mL (0-124) Total Protein 7.7 g/dL (6.4-8.2) Albumin 3.4 g/dL (3.4-5.0) Albumin/Globulin Ratio 0.8 (1.0-1.7) Glucose (Fingerstick) 102 mg/dL (70-99) O2 Saturation 87 % (92-99) Arterial Blood pH 7.10 (7.35-7.45) Arterial Blood pCO2 at Patient Temp 127 mmHg (35-46) Arterial Blood pO2 at Patient Temp 71 mmHg (75-108) Arterial Blood HCO3 39 mmol/L (21-28) Arterial Blood Base Excess 4 mmol/L (-3-3) Urine Collection Type Unknown Urine Color Esther Urine Clarity Clear Urine pH 5.5 Urine Specific [place] 1.025 Urine Protein 30 mg/dL (NEG-TRACE) Urine Glucose (UA) Negative mg/dL (NEG) Urine Ketones (Stick) Trace mg/dL (NEG) Urine Blood Large (NEG) Urine Nitrite Negative (NEG) Urine Bilirubin Moderate (NEG) Urine Urobilinogen Dipstick 2.0 mg/dL (0.2 mg/dL) Urine Leukocyte Esterase Small (NEG) Urine RBC 20-40 /HPF (0-2) Urine WBC 5-10 /HPF (0-4) Urine Bacteria 0 /HPF (0-FEW) Urine Cellular Casts Few /HPF Urine Hyaline Casts Few /HPF Urine Granular Casts Few /HPF Urine Mucus Marked /LPF Test 03/09/19 23:59 03/10/19 08:05 03/10/19 08:45 03/10/19 11:29 O2 Saturation 87 % (92-99) 97 % (92-99) Arterial Blood pH 7.35 (7.35-7.45) 7.53 (7.35-7.45) Arterial Blood pCO2 at Patient Temp 63 mmHg (35-46) 37 mmHg (35-46) Arterial Blood pO2 at Patient Temp 55 mmHg (75-108) 83 mmHg (75-108) Arterial Blood HCO3 34 mmol/L (21-28) 30 mmol/L (21-28) Arterial Blood Base Excess 6 mmol/L (-3-3) 7 mmol/L (-3-3) Oxyhemoglobin 84.6 % Methemoglobin 0.4 % (0.0-1.9) Carbon Monoxide, Quantitative 2.2 % (0.0-1.9) FiO2 100 100 White Blood Count 10.7 x10^3/uL (4.0-11.0) Red Blood Count 5.81 x10^6/uL (4.30-5.70) Hemoglobin 14.1 g/dL (13.0-17.5) Hematocrit 45.4 % (39.0-53.0) Mean Corpuscular Volume 78 fL (79-100) Mean Corpuscular Hemoglobin 24 pg (25-35) Mean Corpuscular Hemoglobin Concent 31 g/dL (31-37) Red Cell Distribution Width 18.7 % (11.5-14.5) Platelet Count 196 x10^3/uL (140-400) Prothrombin Time 17.3 SEC (11.7-14.0) Prothromb Time International Ratio 1.4 (0.8-1.1) Activated Partial Thromboplast Time 33 SEC (24-38) Heparin Anti-Xa Act, Unfractionated < 0.10 IU/mL (0.30-0.70) Sodium Level 147 mmol/L (136-145) Potassium Level 3.7 mmol/L (3.5-5.1) Chloride Level 105 mmol/L (98-107) Carbon Dioxide Level 35 mmol/L (21-32) Anion Gap 7 (6-14) Blood Urea Nitrogen 41 mg/dL (8-26) Creatinine 1.4 mg/dL (0.7-1.3) Estimated GFR (Cockcroft-Gault) 65.4 Glucose Level 90 mg/dL (70-99) Hemoglobin A1c 6.3 % (4.8-5.6) Calcium Level 9.1 mg/dL (8.5-10.1) Phosphorus Level 1.9 mg/dL (2.6-4.7) Magnesium Level 1.9 mg/dL (1.8-2.4) Total Bilirubin 2.2 mg/dL (0.2-1.0) Direct Bilirubin 1.0 mg/dL (0.0-0.2) Aspartate Amino Transf (AST/SGOT) 109 U/L (15-37) Alanine Aminotransferase (ALT/SGPT) 295 U/L (16-63) Alkaline Phosphatase 97 U/L (46-116) Troponin I Quantitative 1.389 ng/mL (0.000-0.055) Total Protein 6.2 g/dL (6.4-8.2) Albumin 2.8 g/dL (3.4-5.0) Triglycerides Level 139 mg/dL (0-150) Cholesterol Level 121 mg/dL (0-200) LDL Cholesterol, Calculated 75 mg/dL (0-100) VLDL Cholesterol, Calculated 28 mg/dL (0-40) Non-HDL Cholesterol Calculated 103 mg/dL (0-129) HDL Cholesterol 18 mg/dL (40-60) Cholesterol/HDL Ratio 6.7 Thyroid Stimulating Hormone (TSH) 2.856 uIU/mL (0.358-3.74) Glucose (Fingerstick) 84 mg/dL (70-99) Test 03/10/19 16:05 03/10/19 17:07 03/10/19 23:30 03/10/19 23:40 Heparin Anti-Xa Act, Unfractionated 0.12 IU/mL (0.30-0.70) 0.17 IU/mL (0.30-0.70) Glucose (Fingerstick) 103 mg/dL (70-99) 99 mg/dL (70-99) Test 03/11/19 06:17 03/11/19 06:35 03/11/19 07:50 03/11/19 12:00 Glucose (Fingerstick) 94 mg/dL (70-99) White Blood Count 9.1 x10^3/uL (4.0-11.0) Red Blood Count 5.39 x10^6/uL (4.30-5.70) Hemoglobin 13.0 g/dL (13.0-17.5) Hematocrit 41.5 % (39.0-53.0) Mean Corpuscular Volume 77 fL (79-100) Mean Corpuscular Hemoglobin 24 pg (25-35) Mean Corpuscular Hemoglobin Concent 31 g/dL (31-37) Red Cell Distribution Width 18.9 % (11.5-14.5) Platelet Count 175 x10^3/uL (140-400) Neutrophils (%) (Auto) 80 % (31-73) Lymphocytes (%) (Auto) 8 % (24-48) Monocytes (%) (Auto) 10 % (0-9) Eosinophils (%) (Auto) 1 % (0-3) Basophils (%) (Auto) 0 % (0-3) Neutrophils # (Auto) 7.3 x10^3/uL (1.8-7.7) Lymphocytes # (Auto) 0.8 x10^3/uL (1.0-4.8) Monocytes # (Auto) 1.0 x10^3/uL (0.0-1.1) Eosinophils # (Auto) 0.1 x10^3/uL (0.0-0.7) Basophils # (Auto) 0.0 x10^3/uL (0.0-0.2) Heparin Anti-Xa Act, Unfractionated 0.46 IU/mL (0.30-0.70) 0.29 IU/mL (0.30-0.70) Sodium Level 150 mmol/L (136-145) Potassium Level 2.7 mmol/L (3.5-5.1) Chloride Level 109 mmol/L (98-107) Carbon Dioxide Level 37 mmol/L (21-32) Anion Gap 4 (6-14) Blood Urea Nitrogen 31 mg/dL (8-26) Creatinine 1.4 mg/dL (0.7-1.3) Estimated GFR (Cockcroft-Gault) 65.4 Glucose Level 106 mg/dL (70-99) Calcium Level 7.7 mg/dL (8.5-10.1) Phosphorus Level 2.1 mg/dL (2.6-4.7) Magnesium Level 1.4 mg/dL (1.8-2.4) Procalcitonin 0.12 ng/mL (0.00-0.10) O2 Saturation 96 % (92-99) Arterial Blood pH 7.52 (7.35-7.45) Arterial Blood pCO2 at Patient Temp 44 mmHg (35-46) Arterial Blood pO2 at Patient Temp 78 mmHg (75-108) Arterial Blood HCO3 35 mmol/L (21-28) Arterial Blood Base Excess 11 mmol/L (-3-3) FiO2 100 Test 03/11/19 12:11 03/11/19 15:20 Glucose (Fingerstick) 105 mg/dL (70-99) Potassium Level 3.2 mmol/L (3.5-5.1) Phosphorus Level 3.7 mg/dL (2.6-4.7) Magnesium Level 2.2 mg/dL (1.8-2.4) Laboratory Tests Test 03/10/19 23:30 03/10/19 23:40 03/11/19 06:17 03/11/19 06:35 Heparin Anti-Xa Act, Unfractionated 0.17 IU/mL (0.30-0.70) 0.46 IU/mL (0.30-0.70) Glucose (Fingerstick) 99 mg/dL (70-99) 94 mg/dL (70-99) White Blood Count 9.1 x10^3/uL (4.0-11.0) Red Blood Count 5.39 x10^6/uL (4.30-5.70) Hemoglobin 13.0 g/dL (13.0-17.5) Hematocrit 41.5 % (39.0-53.0) Mean Corpuscular Volume 77 fL (79-100) Mean Corpuscular Hemoglobin 24 pg (25-35) Mean Corpuscular Hemoglobin Concent 31 g/dL (31-37) Red Cell Distribution Width 18.9 % (11.5-14.5) Platelet Count 175 x10^3/uL (140-400) Neutrophils (%) (Auto) 80 % (31-73) Lymphocytes (%) (Auto) 8 % (24-48) Monocytes (%) (Auto) 10 % (0-9) Eosinophils (%) (Auto) 1 % (0-3) Basophils (%) (Auto) 0 % (0-3) Neutrophils # (Auto) 7.3 x10^3/uL (1.8-7.7) Lymphocytes # (Auto) 0.8 x10^3/uL (1.0-4.8) Monocytes # (Auto) 1.0 x10^3/uL (0.0-1.1) Eosinophils # (Auto) 0.1 x10^3/uL (0.0-0.7) Basophils # (Auto) 0.0 x10^3/uL (0.0-0.2) Sodium Level 150 mmol/L (136-145) Potassium Level 2.7 mmol/L (3.5-5.1) Chloride Level 109 mmol/L (98-107) Carbon Dioxide Level 37 mmol/L (21-32) Anion Gap 4 (6-14) Blood Urea Nitrogen 31 mg/dL (8-26) Creatinine 1.4 mg/dL (0.7-1.3) Estimated GFR (Cockcroft-Gault) 65.4 Glucose Level 106 mg/dL (70-99) Calcium Level 7.7 mg/dL (8.5-10.1) Phosphorus Level 2.1 mg/dL (2.6-4.7) Magnesium Level 1.4 mg/dL (1.8-2.4) Procalcitonin 0.12 ng/mL (0.00-0.10) Test 03/11/19 07:50 03/11/19 12:00 03/11/19 12:11 03/11/19 15:20 O2 Saturation 96 % (92-99) Arterial Blood pH 7.52 (7.35-7.45) Arterial Blood pCO2 at Patient Temp 44 mmHg (35-46) Arterial Blood pO2 at Patient Temp 78 mmHg (75-108) Arterial Blood HCO3 35 mmol/L (21-28) Arterial Blood Base Excess 11 mmol/L (-3-3) FiO2 100 Heparin Anti-Xa Act, Unfractionated 0.29 IU/mL (0.30-0.70) Glucose (Fingerstick) 105 mg/dL (70-99) Potassium Level 3.2 mmol/L (3.5-5.1) Phosphorus Level 3.7 mg/dL (2.6-4.7) Magnesium Level 2.2 mg/dL (1.8-2.4) Medications Active Scripts Medications Dose Route/Sig Max Daily Dose Days Date Category Hydrochlorothiazide Tablet (Hydrochlorothiazide) 25 Mg Tablet 25 Mg PO DAILY 03/10/19 Reported Norvasc (Amlodipine Besylate) 5 Mg Tablet 1 Tab PO DAILY 01/12/19 Rx Lisinopril 5 Mg Tablet 1 Tab PO DAILY 01/12/19 Rx Impression . 1. Acute hypercapnic respiratory failure secondary to multifactorial etiologies. Likely related to acute lung injury/noncardiogenic pulmonary edema/ ARDS due to vaping. Other possibilities would be [id number] right heart failure with worsening hypercapnia. Likelihood of pulmonary embolism is less, CTA non diagnostic for PE. 2. Abnormal chest x-ray with diffuse lung infiltrates. Could be noncardiogenic pulmonary edema. CT chest reviewed. Dependant atelectasis / possible aspiration pneumonia 3. History of morbid obesity with Pickwickian physiology with chronic hypercapnia and chronic hypoxic respiratory failure, history of obstructive sleep apnea as well, but noncompliant to CPAP. 4. Acute kidney injury. 5. Increased troponin. Possible non-ST myocardial infarction. 6. Previous echo with normal ejection fraction. 7. History of tobacco use. Plan . 1. Continue with present assist control mode and high PEEP, FIO2 90%. Reduced the rate and make necessary adjustment based on followup ABGs. 2. CTA chest has been reviewed. 3. No acute bleed on CT head. 4. BS antibiotic coverage to cover for gram-negative and gram-positive pneumonia. 5. Monitor fever and white cell count. 6. Continue bronchodilators. 7. Heparin per Cardiology. 8. P.r.n. diuresis.Need to watch BP closely 9. Discussed with brother 9/3, discussed with RN and RT. We will follow along with you. 10. Condition guarded MARIO ALLEN MD Mar 11, 2019 18:10
[2019-03-11] MEDS: HEPARIN for SUB-Q USE 5,000 UNIT/ML VIAL. SQ SCH (22:00)
--- NOTE | 2019-03-11 22:30 | RAD ---
Exam: Chest one view INDICATION: Check tube placement TECHNIQUE: Frontal view of the chest Comparisons: Same day radiograph FINDINGS: Endotracheal tube with tip approximately 5 cm above the mariely. There is an enteric tube which traverses below the diaphragm coiled in the left upper quadrant likely within the stomach. Right IJ catheter with tip in the SVC. Heart is enlarged. Pulmonary vessels are obscured. Hazy opacities within the lungs bilaterally with bilateral pleural effusions. IMPRESSION: 1. Lines and tubes as described above. 2. Findings likely related to pulmonary edema with bilateral pleural effusions. Electronically signed by: Aicha New MD (03/11/2019 10:27 PM) [id number]
--- NOTE | 2019-03-11 23:32 | CONS ---
DATE OF CONSULTATION: 03/11/2019 REQUESTING PHYSICIAN: Dr. Infante. REASON FOR CONSULTATION: Pneumonia. HISTORY OF PRESENT ILLNESS: This is a 48-year-old -[place] gentleman with morbid obesity, who was found down at home. The patient was lethargic and disoriented. The patient does vaping regularly. The patient required intubation, on mechanical ventilation. The patient's chest x-ray and CT showed pulmonary infiltrate. White count has been up to 11.5. Creatinine is 1.4. The patient is currently sedated on a ventilator, receiving vancomycin, Zosyn, and Levaquin. PAST MEDICAL HISTORY: Positive for obstructive sleep apnea, morbid obesity, congestive heart failure, hypertension, lower extremity edema with venous insufficiency and stasis dermatitis, and polycythemia. SOCIAL HISTORY: Does vaping on a regular basis and does smoke cigarettes also. ALLERGIES: No known drug allergies. CURRENT MEDICATIONS: Reviewed. REVIEW OF SYSTEMS: As per history of present illness, all other systems reviewed are negative through the patient's RN. PHYSICAL EXAMINATION: GENERAL: Sedated, orally intubated gentleman, not in any distress. VITAL SIGNS: Stable, afebrile. HEENT: NAD. Both pupils are round and reacting. Mouth cannot be much visualized since orally intubated. NECK: Supple, no JVP, no lymphadenopathy. LUNGS: Clear. HEART: S1 and S2, regular. ABDOMEN: Benign. EXTREMITIES: No edema or cyanosis. SKIN: Unremarkable other than chronic stasis dermatitis on the lower extremity. NEUROLOGIC: The patient had been moving all the extremities before intubation and sedation. LABORATORY/RADIOLOGIC DATA: White count is down to 9.1, hemoglobin 13.0, and platelets are 175,000. BUN and creatinine is 31 and 1.4, sodium is 150, and potassium is 2.7. Urinalysis showed 20-40 rbc's and 5-10 wbc's. Blood culture is so far negative. Sputum culture has not been taken. Chest CT showed moderate bibasilar lung consolidation with air bronchogram, ascending aortic aneurysm noted. IMPRESSION: 1. Pulmonary infiltrate. This could be aspiration with encephalopathy, this could be congestive heart failure, this could be chemical injury from vaping. 2. Leukocytosis. 3. Respiratory failure. 4. Vaping. 5. Obstructive sleep apnea. 6. Obesity. 7. Borderline renal function. RECOMMENDATIONS: Discontinue vancomycin, change to Zyvox. Continue Zosyn and Levaquin. We will get induced sputum for culture. Supportive care and we will continue to follow. Thank you very much, Dr. Infante, for giving me the opportunity to participate in this patient's care. EDISON TABOR MD DR: [email or web address] JOB#: [id number] / [id number]
[2019-03-12] VITALS (24 sets, daily range): BP systolic 88–139; BP diastolic 56–83
[2019-03-12] MEDS: FAMOTIDINE 20 MG/2 ML VIAL IVP SCH ×3 (01:11→20:34)
[2019-03-12] MEDS: CHLORHEXIDINE 0.12% 15 ML MOUTHWASH. MM SCH ×3 (01:11→20:35)
[2019-03-12] MEDS: PIPERACILLIN/TAZOBACTAM 3.375 GM in IV NORMAL SALINE 50ML 50 ML IV SCH ×4 (01:16→17:11)
[2019-03-12] MEDS: MIDAZOLAM 100mg/100ml NS BAG 100 ML IV PRN ×3 (03:12→21:13)
[2019-03-12] MEDS: HEPARIN for SUB-Q USE 5,000 UNIT/ML VIAL. SQ SCH ×3 (05:44→22:04)
[2019-03-12] MEDS: INSULIN LISPRO 300 UNITS/3 ML VIAL. SQ SCH ×4 (06:00→17:17)
[2019-03-12 06:15] LABS: BASO # 0.1 x10^3/uL (0.0-0.2); BASO % 1 % (0-3); EOS # 0.2 x10^3/uL (0.0-0.7); EOS % 2 % (0-3); HEMOGLOBIN 13.1 g/dL (13.0-17.5); LYMPH # 0.7 x10^3/uL (1.0-4.8); LYMPH % 9 % (24-48); MEAN CORPUSCULAR HEMOGLOBIN 24 pg (25-35); MEAN CORPUSCULAR HGB CONC 31 g/dL (31-37); MEAN CORPUSCULAR VOLUME 78 fL (79-100); MONO # 0.8 x10^3/uL (0.0-1.1); MONO % 10 % (0-9); NEUT # 6.4 x10^3/uL (1.8-7.7); NEUT % 78 % (31-73); PLATELET COUNT 184 x10^3/uL (140-400); RED BLOOD COUNT 5.42 x10^6/uL (4.30-5.70); RED CELL DISTRIBUTION WIDTH 18.9 % (11.5-14.5); WHITE BLOOD COUNT 8.2 x10^3/uL (4.0-11.0)
[2019-03-12 06:37] LABS: ALBUMIN 2.4 g/dL (3.4-5.0); ALBUMIN/GLOBULIN RATIO 0.7 (1.0-1.7); CALCIUM 8.3 mg/dL (8.5-10.1); CREATININE 1.5 mg/dL (0.7-1.3); GFR 60.4; POTASSIUM 3.4 mmol/L (3.5-5.1); TOTAL PROTEIN 5.7 g/dL (6.4-8.2)
[2019-03-12] MEDS: IPRATRPIUM/ALBUTEROL 0.5/2.5MG 3 ML NEBU. NEB SCH ×4 (07:48→19:59)
--- NOTE | 2019-03-12 07:49 | PDOC ---
Infectious Disease Note Subjective Subjective pt is intubated , sedated ROS ROS no n/v/d/sob Vital Sign Vital Signs Vital Signs Date Time Temp Pulse Resp B/P (MAP) Pulse Ox O2 Delivery O2 Flow Rate FiO2 03/12/19 06:00 70 18 114/73 (87) 95 Ventilator 03/12/19 05:45 15.0 03/12/19 04:00 98.1 98.1 Physical Exam PHYSICAL EXAM GENERAL: Sedated, orally intubated gentleman, not in any distress. VITAL SIGNS: Stable, afebrile. HEENT: NAD. Both pupils are round and reacting. Mouth cannot be much visualized since orally intubated. NECK: Supple, no JVP, no lymphadenopathy. LUNGS: Clear. HEART: S1 and S2, regular. ABDOMEN: Benign. EXTREMITIES: No edema or cyanosis. SKIN: Unremarkable other than chronic stasis dermatitis on the lower extremity. NEUROLOGIC: The patient had been moving all the extremities before intubation and sedation. Labs Lab Laboratory Tests Test 03/11/19 07:50 03/11/19 12:00 03/11/19 12:11 03/11/19 15:20 O2 Saturation 96 % (92-99) Arterial Blood pH 7.52 (7.35-7.45) Arterial Blood pCO2 at Patient Temp 44 mmHg (35-46) Arterial Blood pO2 at Patient Temp 78 mmHg (75-108) Arterial Blood HCO3 35 mmol/L (21-28) Arterial Blood Base Excess 11 mmol/L (-3-3) FiO2 100 Heparin Anti-Xa Act, Unfractionated 0.29 IU/mL (0.30-0.70) Glucose (Fingerstick) 105 mg/dL (70-99) Potassium Level 3.2 mmol/L (3.5-5.1) Phosphorus Level 3.7 mg/dL (2.6-4.7) Magnesium Level 2.2 mg/dL (1.8-2.4) Test 03/11/19 18:12 03/12/19 01:07 03/12/19 06:00 Glucose (Fingerstick) 113 mg/dL (70-99) 99 mg/dL (70-99) White Blood Count 8.2 x10^3/uL (4.0-11.0) Red Blood Count 5.42 x10^6/uL (4.30-5.70) Hemoglobin 13.1 g/dL (13.0-17.5) Hematocrit 42.0 % (39.0-53.0) Mean Corpuscular Volume 78 fL (79-100) Mean Corpuscular Hemoglobin 24 pg (25-35) Mean Corpuscular Hemoglobin Concent 31 g/dL (31-37) Red Cell Distribution Width 18.9 % (11.5-14.5) Platelet Count 184 x10^3/uL (140-400) Neutrophils (%) (Auto) 78 % (31-73) Lymphocytes (%) (Auto) 9 % (24-48) Monocytes (%) (Auto) 10 % (0-9) Eosinophils (%) (Auto) 2 % (0-3) Basophils (%) (Auto) 1 % (0-3) Neutrophils # (Auto) 6.4 x10^3/uL (1.8-7.7) Lymphocytes # (Auto) 0.7 x10^3/uL (1.0-4.8) Monocytes # (Auto) 0.8 x10^3/uL (0.0-1.1) Eosinophils # (Auto) 0.2 x10^3/uL (0.0-0.7) Basophils # (Auto) 0.1 x10^3/uL (0.0-0.2) Sodium Level 148 mmol/L (136-145) Potassium Level 3.4 mmol/L (3.5-5.1) Chloride Level 107 mmol/L (98-107) Carbon Dioxide Level 37 mmol/L (21-32) Anion Gap 4 (6-14) Blood Urea Nitrogen 29 mg/dL (8-26) Creatinine 1.5 mg/dL (0.7-1.3) Estimated GFR (Cockcroft-Gault) 60.4 BUN/Creatinine Ratio 19 (6-20) Glucose Level 96 mg/dL (70-99) Calcium Level 8.3 mg/dL (8.5-10.1) Total Bilirubin 2.0 mg/dL (0.2-1.0) Aspartate Amino Transf (AST/SGOT) 31 U/L (15-37) Alanine Aminotransferase (ALT/SGPT) 153 U/L (16-63) Alkaline Phosphatase 77 U/L (46-116) Total Protein 5.7 g/dL (6.4-8.2) Albumin 2.4 g/dL (3.4-5.0) Albumin/Globulin Ratio 0.7 (1.0-1.7) Micro Microbiology 03/10/19 Blood Culture - Preliminary, Resulted NO GROWTH AFTER 1 DAY Objective Assessment Pulmonary infiltrate CHF Obesity Vaping Respiratory failure Plan Plan of Care zyvox zosyn and levaquin sputum culture supportive care overall prognosis poor EDISON TABOR MD Mar 12, 2019 07:49
[2019-03-12] MEDS: ASPIRIN CHEWABLE 81 MG TABLET. PO SCH (08:28)
[2019-03-12 08:31] LABS: BASE EXCESS ABG 9 mmol/L (-3-3); HCO3 ABG 34 mmol/L (21-28); PCO2 ABG 48 mmHg (35-46); PO2 ABG 75 mmHg (75-108); SAT O2 ABG 95 % (92-99)
[2019-03-12] MEDS: MAGNESIUM SULFATE 4GM 100 ML IV SCH (08:32)
[2019-03-12 08:33] LABS: FIO2 ABG 90
--- NOTE | 2019-03-12 08:41 | PDOC ---
PROGRESS NOTES History of Present Illness History of Present Illness VTE Prophylaxis Ordered VTE Prophylaxis Devices: Yes VTE Pharmacological Prophylaxi: Yes Assessment/Plan Assessment/Plan Acute mixed hypoxic, hypercapnic respiratory failure-CO2 was 127 with a pH of 7.1 on arrival Morbid obesity BMI 42 Severe COPD exacerbation, COPD or on 2-3 L nasal cannula-home dependent 02 History of CHF and diabetes mellitus per documentation SIRS POA, no consulted process on chest x-ray Troponin elevation in the background of the above medical illnesses Mild hyponatremia 134, reactive leukocytosis AK I VMN creatinine 1.2 Hypertension POA-blood pressure 160s systolic POSSIBLE UTI CTA CHEST Examination is nondiagnostic for pulmonary embolism as there is not enough contrast within the pulmonary artery and its branches. Moderate bibasilar lung consolidation disease with air bronchograms likely pneumonia or atelectasis with small bilateral pleural effusions. Aneurysmal change of the ascending aorta Mediastinal and hilar contours are grossly stable. Bilateral airspace opacities have improved with improved aeration particularly in the left midlung. Small bilateral pleural effusions. No definite pneumothorax. 03/12 Plan ICU Bed, vent Pulmonary consulted consult cardiology PPI DVT prophylaxis Start sliding scale insulin Monitor labs heparin drip by cardiology replace antonia, per protocol d/w RN BY PHONE URINE CULTURE id consult blood culture sputum culture procalcitonin cont zyvox zosyn and levaquin overall prognosis poor, consult palliative care for goals of treatment cc 36 min Vitals Vitals Vital Signs Date Time Temp Pulse Resp B/P (MAP) Pulse Ox O2 Delivery O2 Flow Rate FiO2 03/12/19 08:28 18 99 Ventilator 03/12/19 07:00 98.4 67 139/74 (95) 98.4 03/12/19 05:45 15.0 Physical Exam Physical Exam GENERAL: Sedated, orally intubated gentleman, not in any distress. VITAL SIGNS: Stable, afebrile. HEENT: NAD. Both pupils are round and reacting. Mouth cannot be much visualized since orally intubated. NECK: Supple, no JVP, no lymphadenopathy. LUNGS: Clear. HEART: S1 and S2, regular. ABDOMEN: Benign. EXTREMITIES: No edema or cyanosis. SKIN: Unremarkable other than chronic stasis dermatitis on the lower extremity. NEUROLOGIC: The patient had been moving all the extremities before intubation and sedation. General: No acute distress, Other (short neck , Mallampati 4 ON VENT) Heart: Regular rate (SR), Other (distante heart sounds) Lungs: Other (decrease bs) Abdomen: Normal bowel sounds, Soft, No tenderness, No hepatosplenomegaly, No masses Extremities: No clubbing, No cyanosis, No edema, Normal pulses, No tenderness/swelling Skin: No rashes, No breakdown, No significant lesion Labs LABS Julián Ledesma M.D., [employer] PATIENT: GENESIS TALAVERA ACCT: [id number] LOC: 1 [facility] U: [id number] AGE/SX: 48/M ROOM: [facility] RE03/09/[address]: ADELAIDA VALENTINE MD : 1970 BED: 1 DIS: STATUS: ADM IN TLOC: - SPEC #: [id number] SHANITA: 03/09/19 STATUS: RES REQ #: [id number] RECD: 03/09/[address]: WHITNEY HESTER DO SOURCE: BLOOD ENTR: 03/09/19 BERKLEY PRESSLEY: VIDAL [facility]: ORDERED: BCULT Procedure Result BLOOD CULTURE Preliminary NO GROWTH AFTER 2 DAYS EXAM: AP View of the chest DATE: 03/12/2019 5:00 AM INDICATION: Respiratory failure COMPARISON: 03/11/2019, CT 03/10/2019 FINDINGS/ IMPRESSION: ET tube tip terminates approximately 6 cm above the mariely. Enteric tube extends beyond the diaphragm the tip terminates over the fundus. Right IJ vas or catheter tip projects over the proximal SVC. Support lines and tubes are grossly stable Stable cardiomegaly. Mediastinal and hilar contours are grossly stable. Bilateral airspace opacities have improved with improved aeration particularly in the left midlung. Small bilateral pleural effusions. No definite pneumothorax. Electronically signed by: Lawrence Martinez MD (03/12/2019 9:13 AM) [facility] Laboratory Tests Test 03/11/19 12:00 03/11/19 12:11 03/11/19 15:20 03/11/19 18:12 Heparin Anti-Xa Act, Unfractionated 0.29 IU/mL (0.30-0.70) Glucose (Fingerstick) 105 mg/dL (70-99) 113 mg/dL (70-99) Potassium Level 3.2 mmol/L (3.5-5.1) Phosphorus Level 3.7 mg/dL (2.6-4.7) Magnesium Level 2.2 mg/dL (1.8-2.4) Test 9/5/19 01:07 03/12/19 06:00 03/12/19 08:00 Glucose (Fingerstick) 99 mg/dL (70-99) White Blood Count 8.2 x10^3/uL (4.0-11.0) Red Blood Count 5.42 x10^6/uL (4.30-5.70) Hemoglobin 13.1 g/dL (13.0-17.5) Hematocrit 42.0 % (39.0-53.0) Mean Corpuscular Volume 78 fL (79-100) Mean Corpuscular Hemoglobin 24 pg (25-35) Mean Corpuscular Hemoglobin Concent 31 g/dL (31-37) Red Cell Distribution Width 18.9 % (11.5-14.5) Platelet Count 184 x10^3/uL (140-400) Neutrophils (%) (Auto) 78 % (31-73) Lymphocytes (%) (Auto) 9 % (24-48) Monocytes (%) (Auto) 10 % (0-9) Eosinophils (%) (Auto) 2 % (0-3) Basophils (%) (Auto) 1 % (0-3) Neutrophils # (Auto) 6.4 x10^3/uL (1.8-7.7) Lymphocytes # (Auto) 0.7 x10^3/uL (1.0-4.8) Monocytes # (Auto) 0.8 x10^3/uL (0.0-1.1) Eosinophils # (Auto) 0.2 x10^3/uL (0.0-0.7) Basophils # (Auto) 0.1 x10^3/uL (0.0-0.2) Sodium Level 148 mmol/L (136-145) Potassium Level 3.4 mmol/L (3.5-5.1) Chloride Level 107 mmol/L (98-107) Carbon Dioxide Level 37 mmol/L (21-32) Anion Gap 4 (6-14) Blood Urea Nitrogen 29 mg/dL (8-26) Creatinine 1.5 mg/dL (0.7-1.3) Estimated GFR (Cockcroft-Gault) 60.4 BUN/Creatinine Ratio 19 (6-20) Glucose Level 96 mg/dL (70-99) Calcium Level 8.3 mg/dL (8.5-10.1) Total Bilirubin 2.0 mg/dL (0.2-1.0) Aspartate Amino Transf (AST/SGOT) 31 U/L (15-37) Alanine Aminotransferase (ALT/SGPT) 153 U/L (16-63) Alkaline Phosphatase 77 U/L (46-116) Total Protein 5.7 g/dL (6.4-8.2) Albumin 2.4 g/dL (3.4-5.0) Albumin/Globulin Ratio 0.7 (1.0-1.7) O2 Saturation 95 % (92-99) Arterial Blood pH 7.47 (7.35-7.45) Arterial Blood pCO2 at Patient Temp 48 mmHg (35-46) Arterial Blood pO2 at Patient Temp 75 mmHg (75-108) Arterial Blood HCO3 34 mmol/L (21-28) Arterial Blood Base Excess 9 mmol/L (-3-3) FiO2 90 Assessment and Plan Assessmemt and Plan Problems Medical Problems: (1) CHF exacerbation Status: Acute (2) COPD exacerbation Status: Acute (3) Hypoxia Status: Acute (4) NSTEMI (non-ST elevated myocardial infarction) Status: Acute (5) Respiratory failure Status: Acute Comment Review of Relevant I have reviewed the following items peter (where applicable) has been applied. Labs Laboratory Tests Test 03/10/19 08:45 03/10/19 11:29 03/10/19 16:05 03/10/19 17:07 O2 Saturation 97 % (92-99) Arterial Blood pH 7.53 (7.35-7.45) Arterial Blood pCO2 at Patient Temp 37 mmHg (35-46) Arterial Blood pO2 at Patient Temp 83 mmHg (75-108) Arterial Blood HCO3 30 mmol/L (21-28) Arterial Blood Base Excess 7 mmol/L (-3-3) FiO2 100 Glucose (Fingerstick) 84 mg/dL (70-99) 103 mg/dL (70-99) Heparin Anti-Xa Act, Unfractionated 0.12 IU/mL (0.30-0.70) Test 03/10/19 23:30 03/10/19 23:40 03/11/19 06:17 03/11/19 06:35 Heparin Anti-Xa Act, Unfractionated 0.17 IU/mL (0.30-0.70) 0.46 IU/mL (0.30-0.70) Glucose (Fingerstick) 99 mg/dL (70-99) 94 mg/dL (70-99) White Blood Count 9.1 x10^3/uL (4.0-11.0) Red Blood Count 5.39 x10^6/uL (4.30-5.70) Hemoglobin 13.0 g/dL (13.0-17.5) Hematocrit 41.5 % (39.0-53.0) Mean Corpuscular Volume 77 fL (79-100) Mean Corpuscular Hemoglobin 24 pg (25-35) Mean Corpuscular Hemoglobin Concent 31 g/dL (31-37) Red Cell Distribution Width 18.9 % (11.5-14.5) Platelet Count 175 x10^3/uL (140-400) Neutrophils (%) (Auto) 80 % (31-73) Lymphocytes (%) (Auto) 8 % (24-48) Monocytes (%) (Auto) 10 % (0-9) Eosinophils (%) (Auto) 1 % (0-3) Basophils (%) (Auto) 0 % (0-3) Neutrophils # (Auto) 7.3 x10^3/uL (1.8-7.7) Lymphocytes # (Auto) 0.8 x10^3/uL (1.0-4.8) Monocytes # (Auto) 1.0 x10^3/uL (0.0-1.1) Eosinophils # (Auto) 0.1 x10^3/uL (0.0-0.7) Basophils # (Auto) 0.0 x10^3/uL (0.0-0.2) Sodium Level 150 mmol/L (136-145) Potassium Level 2.7 mmol/L (3.5-5.1) Chloride Level 109 mmol/L (98-107) Carbon Dioxide Level 37 mmol/L (21-32) Anion Gap 4 (6-14) Blood Urea Nitrogen 31 mg/dL (8-26) Creatinine 1.4 mg/dL (0.7-1.3) Estimated GFR (Cockcroft-Gault) 65.4 Glucose Level 106 mg/dL (70-99) Calcium Level 7.7 mg/dL (8.5-10.1) Phosphorus Level 2.1 mg/dL (2.6-4.7) Magnesium Level 1.4 mg/dL (1.8-2.4) Procalcitonin 0.12 ng/mL (0.00-0.10) Test 03/11/19 07:50 03/11/19 12:00 03/11/19 12:11 03/11/19 15:20 O2 Saturation 96 % (92-99) Arterial Blood pH 7.52 (7.35-7.45) Arterial Blood pCO2 at Patient Temp 44 mmHg (35-46) Arterial Blood pO2 at Patient Temp 78 mmHg (75-108) Arterial Blood HCO3 35 mmol/L (21-28) Arterial Blood Base Excess 11 mmol/L (-3-3) FiO2 100 Heparin Anti-Xa Act, Unfractionated 0.29 IU/mL (0.30-0.70) Glucose (Fingerstick) 105 mg/dL (70-99) Potassium Level 3.2 mmol/L (3.5-5.1) Phosphorus Level 3.7 mg/dL (2.6-4.7) Magnesium Level 2.2 mg/dL (1.8-2.4) Test 03/11/19 18:12 03/12/19 01:07 03/12/19 06:00 03/12/19 08:00 Glucose (Fingerstick) 113 mg/dL (70-99) 99 mg/dL (70-99) White Blood Count 8.2 x10^3/uL (4.0-11.0) Red Blood Count 5.42 x10^6/uL (4.30-5.70) Hemoglobin 13.1 g/dL (13.0-17.5) Hematocrit 42.0 % (39.0-53.0) Mean Corpuscular Volume 78 fL (79-100) Mean Corpuscular Hemoglobin 24 pg (25-35) Mean Corpuscular Hemoglobin Concent 31 g/dL (31-37) Red Cell Distribution Width 18.9 % (11.5-14.5) Platelet Count 184 x10^3/uL (140-400) Neutrophils (%) (Auto) 78 % (31-73) Lymphocytes (%) (Auto) 9 % (24-48) Monocytes (%) (Auto) 10 % (0-9) Eosinophils (%) (Auto) 2 % (0-3) Basophils (%) (Auto) 1 % (0-3) Neutrophils # (Auto) 6.4 x10^3/uL (1.8-7.7) Lymphocytes # (Auto) 0.7 x10^3/uL (1.0-4.8) Monocytes # (Auto) 0.8 x10^3/uL (0.0-1.1) Eosinophils # (Auto) 0.2 x10^3/uL (0.0-0.7) Basophils # (Auto) 0.1 x10^3/uL (0.0-0.2) Sodium Level 148 mmol/L (136-145) Potassium Level 3.4 mmol/L (3.5-5.1) Chloride Level 107 mmol/L (98-107) Carbon Dioxide Level 37 mmol/L (21-32) Anion Gap 4 (6-14) Blood Urea Nitrogen 29 mg/dL (8-26) Creatinine 1.5 mg/dL (0.7-1.3) Estimated GFR (Cockcroft-Gault) 60.4 BUN/Creatinine Ratio 19 (6-20) Glucose Level 96 mg/dL (70-99) Calcium Level 8.3 mg/dL (8.5-10.1) Total Bilirubin 2.0 mg/dL (0.2-1.0) Aspartate Amino Transf (AST/SGOT) 31 U/L (15-37) Alanine Aminotransferase (ALT/SGPT) 153 U/L (16-63) Alkaline Phosphatase 77 U/L (46-116) Total Protein 5.7 g/dL (6.4-8.2) Albumin 2.4 g/dL (3.4-5.0) Albumin/Globulin Ratio 0.7 (1.0-1.7) O2 Saturation 95 % (92-99) Arterial Blood pH 7.47 (7.35-7.45) Arterial Blood pCO2 at Patient Temp 48 mmHg (35-46) Arterial Blood pO2 at Patient Temp 75 mmHg (75-108) Arterial Blood HCO3 34 mmol/L (21-28) Arterial Blood Base Excess 9 mmol/L (-3-3) FiO2 90 Laboratory Tests Test 03/11/19 12:00 03/11/19 12:11 03/11/19 15:20 03/11/19 18:12 Heparin Anti-Xa Act, Unfractionated 0.29 IU/mL (0.30-0.70) Glucose (Fingerstick) 105 mg/dL (70-99) 113 mg/dL (70-99) Potassium Level 3.2 mmol/L (3.5-5.1) Phosphorus Level 3.7 mg/dL (2.6-4.7) Magnesium Level 2.2 mg/dL (1.8-2.4) Test 03/12/19 01:07 03/12/19 06:00 03/12/19 08:00 Glucose (Fingerstick) 99 mg/dL (70-99) White Blood Count 8.2 x10^3/uL (4.0-11.0) Red Blood Count 5.42 x10^6/uL (4.30-5.70) Hemoglobin 13.1 g/dL (13.0-17.5) Hematocrit 42.0 % (39.0-53.0) Mean Corpuscular Volume 78 fL (79-100) Mean Corpuscular Hemoglobin 24 pg (25-35) Mean Corpuscular Hemoglobin Concent 31 g/dL (31-37) Red Cell Distribution Width 18.9 % (11.5-14.5) Platelet Count 184 x10^3/uL (140-400) Neutrophils (%) (Auto) 78 % (31-73) Lymphocytes (%) (Auto) 9 % (24-48) Monocytes (%) (Auto) 10 % (0-9) Eosinophils (%) (Auto) 2 % (0-3) Basophils (%) (Auto) 1 % (0-3) Neutrophils # (Auto) 6.4 x10^3/uL (1.8-7.7) Lymphocytes # (Auto) 0.7 x10^3/uL (1.0-4.8) Monocytes # (Auto) 0.8 x10^3/uL (0.0-1.1) Eosinophils # (Auto) 0.2 x10^3/uL (0.0-0.7) Basophils # (Auto) 0.1 x10^3/uL (0.0-0.2) Sodium Level 148 mmol/L (136-145) Potassium Level 3.4 mmol/L (3.5-5.1) Chloride Level 107 mmol/L (98-107) Carbon Dioxide Level 37 mmol/L (21-32) Anion Gap 4 (6-14) Blood Urea Nitrogen 29 mg/dL (8-26) Creatinine 1.5 mg/dL (0.7-1.3) Estimated GFR (Cockcroft-Gault) 60.4 BUN/Creatinine Ratio 19 (6-20) Glucose Level 96 mg/dL (70-99) Calcium Level 8.3 mg/dL (8.5-10.1) Total Bilirubin 2.0 mg/dL (0.2-1.0) Aspartate Amino Transf (AST/SGOT) 31 U/L (15-37) Alanine Aminotransferase (ALT/SGPT) 153 U/L (16-63) Alkaline Phosphatase 77 U/L (46-116) Total Protein 5.7 g/dL (6.4-8.2) Albumin 2.4 g/dL (3.4-5.0) Albumin/Globulin Ratio 0.7 (1.0-1.7) O2 Saturation 95 % (92-99) Arterial Blood pH 7.47 (7.35-7.45) Arterial Blood pCO2 at Patient Temp 48 mmHg (35-46) Arterial Blood pO2 at Patient Temp 75 mmHg (75-108) Arterial Blood HCO3 34 mmol/L (21-28) Arterial Blood Base Excess 9 mmol/L (-3-3) FiO2 90 Microbiology 03/10/19 Blood Culture - Preliminary, Resulted NO GROWTH AFTER 2 DAYS Medications Current Medications Albuterol/ Ipratropium (Duoneb) 3 ml 1X ONCE NEB Last administered on 03/09/19at 21:21; Start 03/09/19 at 21:30; Stop 03/09/19 at 21:31; Status DC Dexamethasone Sodium Phosphate (Decadron) 10 mg 1X ONCE IV Last administered on 03/09/19at 22:29; Start 03/09/19 at 22:00; Stop 03/09/19 at 22:01; Status DC Propofol 100 ml @ 0 mls/hr CONT PRN IV SEE PROTOCOL Last administered on at 07:19; Start 03/09/19 at 22:30; Stop 03/10/19 at 07:28; Status DC Fentanyl Citrate (Fentanyl 2ml Vial) 50 mcg PRN Q1HR PRN IV SEE COMMENTS; Start 03/09/19 at 22:30; Stop 03/10/19 at 07:28; Status DC Chlorhexidine Gluconate (Peridex) 15 ml BID MM Last administered on 03/12/19at 08:32; Start 03/10/19 at 09:00 Famotidine (Pepcid Vial) 20 mg BID IVP Last administered on 03/12/19 08:30; Start 03/10/19 at 09:00 Propofol 50 ml @ As Directed STK-MED ONCE IV ; Start 03/09/19 at 22:28; Stop 03/09/19 at 22:28; Status DC Albuterol/ Ipratropium (Duoneb) 3 ml 1X ONCE NEB Last administered on 03/10/19at 02:04; Start 03/09/19 at 23:00; Stop 03/09/19 at 23:01; Status DC Albuterol/ Ipratropium (Duoneb) 3 ml 1X ONCE NEB Last administered on 03/10/19at 02:04; Start 03/09/19 at 23:00; Stop 03/09/19 at 23:01; Status DC Fentanyl Citrate (Fentanyl 2ml Vial) 100 mcg 1X ONCE IV Last administered on 03/09/19at 23:31; Start 03/09/19 at 23:30; Stop 03/09/19 at 23:31; Status DC Bumetanide (Bumex) 1 mg 1X ONCE IV Last administered on 03/10/19at 00:21; Start 03/10/19 at 00:00; Stop 03/10/19 at 00:01; Status DC Heparin Sodium (Porcine) (Heparin Sodium) 4,000 unit 1X ONCE IV Last administered on 03/10/19 00:31; Start 03/10/19 at 00:00; Stop 03/10/19 at 00:01; Status DC Heparin Sodium/ Dextrose 500 ml @ 0 mls/hr CONT PRN IV PER PROTOCOL Last administered on 03/10/19at 23:34; Start 03/09/19 at 23:45; Stop 03/11/19 at 16:13; Status DC Heparin Sodium (Porcine) (Heparin Sodium) 5,500 unit PRN Q6HRS PRN IV FOR UFH LEVEL LESS THAN 0.2 Last administered on 9/4/19at 00:57; Start 03/09/19 at 23:45; Stop 03/11/19 at 16:13; Status DC Aspirin (Aspirin Rectal Supp) 300 mg 1X ONCE DC Last administered on 03/10/19at 03:42; Start 03/10/19 at 00:00; Stop 03/10/19 at 00:01; Status DC Propofol 50 ml @ As Directed STK-MED ONCE IV ; Start 03/09/19 at 23:38; Stop 03/09/19 at 23:38; Status DC Propofol 50 ml @ As Directed STK-MED ONCE IV ; Start 03/09/19 at 23:38; Stop 03/09/19 at 23:38; Status DC Piperacillin Sod/ Tazobactam Sod 4.5 gm/Sodium Chloride 100 ml @ 200 mls/hr 1X ONCE IV Last administered on 03/10/19at 05:19; Start 03/10/19 at 00:30; Stop 03/10/19 at 00:59; Status DC Propofol 50 ml @ As Directed STK-MED ONCE IV ; Start 03/10/19 at 00:51; Stop 03/10/19 at 00:51; Status DC Propofol 50 ml @ As Directed STK-MED ONCE IV ; Start 03/10/19 at 01:14; Stop 03/10/19 at 01:15; Status DC Fentanyl Citrate (Fentanyl 2ml Vial) 100 mcg 1X ONCE IV Last administered on 03/10/19at 01:26; Start 03/10/19 at 01:45; Stop 03/10/19 at 01:46; Status DC Clonidine HCl (Catapres) 0.1 mg 1X ONCE PO ; Start 03/10/19 at 01:30; Stop 03/10/19 at 01:34; Status DC Midazolam HCl (Versed) 5 mg 1X ONCE IV Last administered on 03/10/19at 01:28; Start 03/10/19 at 01:30; Stop 03/10/19 at 01:34; Status DC Propofol 50 ml @ As Directed STK-MED ONCE IV ; Start 03/10/19 at 02:08; Stop 03/10/19 at 02:09; Status DC Propofol 50 ml @ As Directed STK-MED ONCE IV ; Start 03/10/19 at 02:36; Stop 03/10/19 at 02:36; Status DC Rocuronium [place] (Zemuron) 50 mg STK-MED ONCE .ROUTE ; Start 03/10/19 at 05:15; Stop 03/10/19 at 05:15; Status DC Etomidate (Amidate) 20 mg STK-MED ONCE IV ; Start 03/10/19 at 05:15; Stop 03/10/19 at 05:16; Status DC Fentanyl Citrate 30 ml @ 0 mls/hr CONT PRN IV SEE PROTOCOL Last administered on 03/12/19at 05:45; Start 03/10/19 at 07:30 Propofol 100 ml @ 0 mls/hr CONT PRN IV SEE PROTOCOL; Start 03/10/19 at 07:30 Fentanyl Citrate (Fentanyl 2ml Vial) 25 mcg PRN Q1HR PRN IV SEE COMMENTS; Start 03/10/19 at 07:30 Fentanyl Citrate (Fentanyl 2ml Vial) 50 mcg PRN Q1HR PRN IV SEE COMMENTS; Start 03/10/19 at 07:30 Artificial Tears (Artificial Tears) 1 drop PRN Q1HR PRN OU DRY EYE; Start 03/10/19 at 07:30 Famotidine (Pepcid Vial) 20 mg BID IVP ; Start 03/10/19 at 09:00; Status UNV Morphine Sulfate (Morphine Sulfate) 2 mg PRN Q1HR PRN IV SEE COMMENTS.; Start 03/10/19 at 07:30 Morphine Sulfate (Morphine Sulfate) 4 mg PRN Q1HR PRN IV SEE COMMENTS.; Start 03/10/19 at 07:30 Midazolam HCl 100 ml @ 0 mls/hr CONT PRN IV SEE PROTOCOL Last administered on 03/12/19at 03:13; Start 03/10/19 at 07:30 Levofloxacin/ Dextrose (Levaquin Per Pharmacy) 1 each PRN DAILY PRN MC SEE COMMENTS; Start 03/10/19 at 08:15 Albuterol/ Ipratropium (Duoneb) 3 ml RTQID NEB Last administered on 03/12/19at 07:48; Start 03/10/19 at 12:00 Sodium Chloride 1,000 ml @ 100 mls/hr Q10H IV Last administered on 03/10/19at 23:34; Start 03/10/19 at 08:15; Stop 03/11/19 at 16:02; Status DC Amlodipine Besylate (Norvasc) 5 mg DAILY PO Last administered on 03/10/19at 09:13; Start 03/10/19 at 09:00; Stop 03/10/19 at 10:04; Status DC Hydrochlorothiazide (Hydrodiuril) 25 mg DAILY PO Last administered on 03/10/19at 09:13; Start 03/10/19 at 09:00; Stop 03/10/19 at 10:04; Status DC Lisinopril (Prinivil) 5 mg DAILY PO Last administered on 03/10/19at 09:13; Start 03/10/19 at 09:00; Stop 03/10/19 at 10:04; Status DC Levofloxacin/ Dextrose 100 ml @ 100 mls/hr Q24H IV Last administered on 03/12/19at 08:30; Start 03/10/19 at 09:00 Aspirin (Amanda Aspirin) 325 mg 1X ONCE PO Last administered on 03/10/19at 10:55; Start 03/10/19 at 10:30; Stop 03/10/19 at 10:31; Status DC Aspirin (Children'S Aspirin) 81 mg DAILYWBKFT PO Last administered on 03/12/19at 08:30; Start 03/11/19 at 08:00 Amlodipine Besylate (Norvasc) 10 mg DAILY PO Last administered on 03/11/19at 09:37; Start 03/11/19 at 09:00; Stop 03/11/19 at 12:50; Status DC Hydralazine HCl (Apresoline Inj) 10 mg PRN Q4HRS PRN IVP ELEVATED BP, SEE COMMENTS; Start 03/10/19 at 10:15 Furosemide (Lasix) 40 mg DAILY IVP Last administered on 03/11/19at 09:37; Start 03/10/19 at 11:00; Stop 03/11/19 at 11:24; Status DC Insulin Human Lispro (HumaLOG) 0-9 UNITS TIDWMEALS SQ ; Start 03/10/19 at 12:00; Stop 03/10/19 at 17:57; Status DC Dextrose (Dextrose 50%-Water Syringe) 12.5 gm PRN Q15MIN PRN IV SEE COMMENTS; Start 03/10/19 at 11:15 Dextrose 250 ml PRN Q15MIN PRN IV SEE COMMENTS; Start 03/10/19 at 11:15; Stop 03/10/19 at 11:05; Status DC Iohexol (Omnipaque 350 Mg/ml) 100 ml 1X ONCE IV Last administered on 03/10/19at 14:05; Start 03/10/19 at 11:45; Stop 03/10/19 at 11:47; Status DC Info (CONTRAST GIVEN -- Rx MONITORING) 1 each PRN DAILY PRN MC SEE COMMENTS; Start 03/10/19 at 11:45; Stop 03/12/19 at 11:44 Piperacillin Sod/ Tazobactam Sod (Zosyn Per Pharmacy) 1 each PRN DAILY PRN MC SEE COMMENTS; Start 03/10/19 at 11:45 Vancomycin HCl (Vanco Per Pharmacy) 1 each PRN DAILY PRN MC SEE COMMENTS Last administered on 03/11/19at 09:42; Start 03/10/19 at 11:45; Stop 03/11/19 at 13:57; Status DC Vancomycin HCl 2 gm/Sodium Chloride 500 ml @ 250 mls/hr 1X ONCE IV Last administered on 03/10/19at 12:41; Start 03/10/19 at 13:00; Stop 03/10/19 at 14:59; Status DC Piperacillin Sod/ Tazobactam Sod 3.375 gm/Sodium Chloride 50 ml @ 100 mls/hr Q6HRS IV Last administered on 03/12/19at 05:45; Start 03/10/19 at 12:30 Vancomycin HCl 1.75 gm/Sodium Chloride 500 ml @ 250 mls/hr Q12H IV Last administered on 03/11/19at 12:43; Start 03/11/19 at 01:00; Stop 03/11/19 at 13:57; Status DC Vancomycin HCl (Vancomycin Trough Level) 1 each 1X ONCE MC ; Start 03/12/19 at 12:30; Stop 03/12/19 at 12:31; Status Cancel Insulin Human Lispro (HumaLOG) 0-9 UNITS Q6HRS SQ ; Start 03/11/19 at 00:00 Magnesium Sulfate/ Dextrose 100 ml @ 50 mls/hr DAILY IV Last administered on 03/11/19at 09:28; Start 03/11/19 at 09:00; Stop 03/14/19 at 08:59 Potassium Phosphate 27.2 mmol/Sodium Chloride 259.0667 ml @ 64.753 m... 1X ONCE IV Last administered on 03/11/19at 09:28; Start 03/11/19 at 10:00; Stop at 14:00; Status DC Potassium Phosphate 27.2 mmol/Sodium Chloride 259.0667 ml @ 64.753 m... 1X ONCE IV ; Start 03/11/19 at 14:00; Stop 03/11/19 at 18:00; Status DC Lorazepam (Ativan Inj) 1 mg PRN Q1HR PRN IV ANXIETY / AGITATION Last administered on 03/12/19at 03:55; Start 03/11/19 at 11:00 Sodium Chloride 1,000 ml @ 1,000 mls/hr 1X ONCE IV Last administered on 03/11/19at 12:06; Start 03/11/19 at 11:30; Stop 03/11/19 at 12:29; Status DC Norepinephrine Bitartrate 250 ml @ 27.837 mls/ hr CONT PRN IV SEE I/O RECORD Last administered on 03/11/19at 13:04; Start 03/11/19 at 13:00 Hydralazine HCl (Apresoline Inj) 10 mg PRN Q4HRS PRN IVP ELEVATED BP, SEE COMMENTS; Start 03/11/19 at 13:00 Linezolid/Dextrose 300 ml @ 300 mls/hr Q12HR IV Last administered on 03/12/19at 08:30; Start 03/11/19 at 21:00 Potassium Chloride/Water 50 ml @ 50 mls/hr Q1H IV Last administered on 03/11/19at 17:28; Start 03/11/19 at 16:00; Stop 03/11/19 at 17:59; Status DC Heparin Sodium (Porcine) (Heparin Sodium) 5,000 unit Q8HRS SQ Last administered on 03/12/19at 05:45; Start 03/11/19 at 22:00 Active Scripts Active Norvasc (Amlodipine Besylate) 5 Mg Tablet 1 Tab PO DAILY Lisinopril 5 Mg Tablet 1 Tab PO DAILY Reported Hydrochlorothiazide Tablet (Hydrochlorothiazide) 25 Mg Tablet 25 Mg PO DAILY Vitals/I & O Vital Sign - Last 24 Hours 9/4/19 9/4/19 9/4/19 9/4/19 09:00 09:19 09:37 09:55 Pulse 72 87 Resp 18 18 B/P (MAP) 133/74 (93) 131/75 Pulse Ox 90 99 99 O2 Delivery Ventilator Ventilator Ventilator 03/11/19 03/11/19 03/11/19 03/11/19 10:00 10:46 11:00 11:31 Pulse 72 62 Resp 18 18 18 B/P (MAP) 131/75 (93) 90/49 (63) Pulse Ox 90 99 90 98 O2 Delivery Ventilator Ventilator Ventilator Ventilator 03/11/19 03/11/19 03/11/19 03/11/19 12:00 12:00 12:06 12:30 Temp 98.4 98.4 Pulse 62 56 Resp 18 18 18 B/P (MAP) 99/54 (69) 74/43 (53) Pulse Ox 90 98 90 O2 Delivery Ventilator Mechanical Ventilator Ventilator Ventilator 03/11/19 03/11/19 03/11/19 03/11/19 12:42 12:45 13:00 13:07 Pulse 64 60 Resp 18 18 18 B/P (MAP) 78/44 (55) 150/91 (110) Pulse Ox 97 90 90 97 O2 Delivery Ventilator Ventilator Ventilator Ventilator 03/11/19 03/11/19 03/11/19 03/11/19 13:15 13:30 14:00 14:30 Pulse 58 66 62 60 Resp 18 18 18 18 B/P (MAP) 146/86 (106) 128/76 (93) 136/81 (99) 122/75 (91) Pulse Ox 90 90 90 90 O2 Delivery Ventilator Ventilator Ventilator Ventilator 03/11/19 03/11/19 03/11/19 03/11/19 14:45 15:00 15:15 15:28 Pulse 62 60 62 Resp 18 18 18 B/P (MAP) 114/71 (85) 114/67 (83) 112/65 (81) Pulse Ox 90 90 90 98 O2 Delivery Ventilator Ventilator Ventilator Ventilator 03/11/19 03/11/19 03/11/19 03/11/19 15:56 16:00 16:00 16:31 Temp 98.4 98.4 Pulse 65 Resp 18 18 18 B/P (MAP) 110/65 (80) Pulse Ox 98 90 97 O2 Delivery Ventilator Ventilator Mechanical Ventilator Ventilator 03/11/19 03/11/19 03/11/19 03/11/19 17:00 17:00 18:00 19:00 Pulse 65 67 72 Resp 18 18 18 B/P (MAP) 119/72 (88) 115/67 (83) 119/65 (83) Pulse Ox 90 97 90 98 O2 Delivery Ventilator Ventilator Ventilator Ventilator 03/11/19 03/11/19 03/11/19 03/11/19 20:00 20:00 20:09 20:28 Temp 98.7 98.7 Pulse 72 Resp 18 18 B/P (MAP) 110/67 (81) Pulse Ox 98 90 97 O2 Delivery Mechanical Ventilator Ventilator Ventilator 03/11/19 03/11/19 03/11/19 03/11/19 21:00 22:00 22:30 23:00 Pulse 73 68 70 Resp 18 18 18 B/P (MAP) 124/69 (87) 118/70 (86) 111/65 (80) Pulse Ox 98 98 97 98 O2 Delivery Ventilator Ventilator Ventilator Ventilator 03/11/19 03/12/19 03/12/19 03/12/19 23:59 00:00 00:51 01:00 Temp 98.4 98.4 Pulse 70 79 Resp 18 18 B/P (MAP) 117/67 (84) 128/76 (93) Pulse Ox 98 97 96 O2 Delivery Mechanical Ventilator Ventilator Ventilator Ventilator 03/12/19 03/12/19 03/12/19 03/12/19 01:18 01:29 02:00 02:43 Pulse 78 Resp 18 18 18 B/P (MAP) 121/74 (90) Pulse Ox 97 97 94 93 O2 Delivery Ventilator Ventilator Ventilator O2 Flow Rate 15.0 03/12/19 03/12/19 03/12/19 03/12/19 03:00 03:12 04:00 04:00 Temp 98.1 98.1 Pulse 70 77 Resp 18 18 18 B/P (MAP) 127/79 (95) 108/66 (80) Pulse Ox 97 93 97 O2 Delivery Ventilator Ventilator Ventilator Mechanical Ventilator 03/12/19 03/12/19 03/12/19 03/12/19 04:37 05:00 05:43 05:45 Pulse 70 Resp 18 B/P (MAP) 107/64 (78) Pulse Ox 93 95 93 95 O2 Delivery Ventilator Ventilator Ventilator O2 Flow Rate 15.0 03/12/19 03/12/19 03/12/19/5/19 06:00 07:00 07:48 08:00 Temp 98.4 98.4 Pulse 70 67 Resp 18 18 B/P (MAP) 114/73 (87) 139/74 (95) Pulse Ox 95 98 97 O2 Delivery Ventilator Ventilator Ventilator Mechanical Ventilator 03/12/19 08:28 Resp 18 Pulse Ox 99 O2 Delivery Ventilator Intake and Output 03/11/19 03/11/19 03/12/19 15:00 23:00 07:00 Intake Total 2400 ml 1988.72 ml 2222.73 ml Output Total 1825 ml 1125 ml 780 ml Balance 575 ml 863.72 ml 1442.73 ml PRICILA GOMEZ MD Mar 12, 2019 08:41
[2019-03-12] MEDS ORDERED: MINERAL OIL/PETROLATUM,WHITE OPHTH OINT 3.5GM TUBE. OU PRN (09:00)
--- NOTE | 2019-03-12 09:16 | RAD ---
EXAM: AP View of the chest DATE: 03/12/2019 5:00 AM INDICATION: Respiratory failure COMPARISON: 03/11/2019, CT 03/10/2019 FINDINGS/ IMPRESSION: ET tube tip terminates approximately 6 cm above the mariely. Enteric tube extends beyond the diaphragm the tip terminates over the fundus. Right IJ vas or catheter tip projects over the proximal SVC. Support lines and tubes are grossly stable Stable cardiomegaly. Mediastinal and hilar contours are grossly stable. Bilateral airspace opacities have improved with improved aeration particularly in the left midlung. Small bilateral pleural effusions. No definite pneumothorax. Electronically signed by: Lawrence Martinez MD (03/12/2019 9:13 AM) [facility]
[2019-03-12] MEDS: POLYVINYL ALCOHOL 1.4% OPHTH SOLUTION 15ML BOTTLE. OU PRN (09:34)
[2019-03-12] MEDS ORDERED: POTASSIUM CHL 20MEQ PREMIX 50 ML IV ONE ×2 (10:00→10:30)
--- NOTE | 2019-03-12 10:05 | PDOC2 ---
CONSULT Date of Consult Date of Consult DATE: 03/12/19 TIME: 09:54 Reason for Consult Reason for Consult: Lytes abnormal Source Source: Chart review History of Present Illness Reason for Visit: Pt is a 48-year-old -[place] morbid obese male , who was found down at home. The patient was lethargic and disoriented. Admitted on 03/10 . He does vaping regularly. The patient required intubation, on mechanical ventilation. Chest x-ray and CT showed pulmonary infiltrate , White count has been up to 11.5. Creatinine is 1.4. Renal consulted by primary for Lyte abnormalities Past Medical History Cardiovascular: CHF, HTN, Other (ascending thoracic aorta with 4.4 cm; chronic lymphedema) Pulmonary: COPD, Other (SHARON) CENTRAL NERVOUS SYSTEM: Other (No pertinent history) GI: No pertinent hx Heme/Onc: No pertinent hx, Other (polycythemia) Hepatobiliary: No pertinent hx Psych: No pertinent hx Musculoskeletal: Osteoarthritis, Other (obese) Rheumatologic: No pertinent hx Infectious disease: No pertinent hx ENT: No pertinent hx Renal/: No pertinent hx Endocrine: Other (metabolic syndrome) Dermatology: Other (venous dermatitis) Past Surgical History Past Surgical History: No pertinent history Family History Family History: Hypertension Social History <1 pack per day ALCOHOL: none Drugs: None Lives: with Family Current Problem List Problem List Problems Medical Problems: (1) CHF exacerbation Status: Acute (2) COPD exacerbation Status: Acute (3) Hypoxia Status: Acute (4) NSTEMI (non-ST elevated myocardial infarction) Status: Acute (5) Respiratory failure Status: Acute Current Medications Current Medications Current Medications Albuterol/ Ipratropium (Duoneb) 3 ml 1X ONCE NEB Last administered on 03/09/19at 21:21; Start 03/09/19 at 21:30; Stop 03/09/19 at 21:31; Status DC Dexamethasone Sodium Phosphate (Decadron) 10 mg 1X ONCE IV Last administered on 03/09/19at 22:29; Start 03/09/19 at 22:00; Stop 03/09/19 at 22:01; Status DC Propofol 100 ml @ 0 mls/hr CONT PRN IV SEE PROTOCOL Last administered on 03/10/19at 07:19; Start 03/09/19 at 22:30; Stop 03/10/19 at 07:28; Status DC Fentanyl Citrate (Fentanyl 2ml Vial) 50 mcg PRN Q1HR PRN IV SEE COMMENTS; Start 03/09/19 at 22:30; Stop 03/10/19 at 07:28; Status DC Chlorhexidine Gluconate (Peridex) 15 ml BID MM Last administered on 03/12/19at 08:32; Start 03/10/19 at 09:00 Famotidine (Pepcid Vial) 20 mg BID IVP Last administered on 03/12/19at 08:30; Start 03/10/19 at 09:00 Propofol 50 ml @ As Directed STK-MED ONCE IV ; Start 03/09/19 at 22:28; Stop 03/09/19 at 22:28; Status DC Albuterol/ Ipratropium (Duoneb) 3 ml 1X ONCE NEB Last administered on 03/10/19at 02:04; Start 03/09/19 at 23:00; Stop 03/09/19 at 23:01; Status DC Albuterol/ Ipratropium (Duoneb) 3 ml 1X ONCE NEB Last administered on 03/10/19at 02:04; Start 03/09/19 at 23:00; Stop 03/09/19 at 23:01; Status DC Fentanyl Citrate (Fentanyl 2ml Vial) 100 mcg 1X ONCE IV Last administered on 03/09/19at 23:31; Start 03/09/19 at 23:30; Stop 03/09/19 at 23:31; Status DC Bumetanide (Bumex) 1 mg 1X ONCE IV Last administered on 03/10/19at 00:21; Start 03/10/19 at 00:00; Stop 03/10/19 at 00:01; Status DC Heparin Sodium (Porcine) (Heparin Sodium) 4,000 unit 1X ONCE IV Last administered on 03/10/19at 00:31; Start 03/10/19 at 00:00; Stop 03/10/19 at 00:01; Status DC Heparin Sodium/ Dextrose 500 ml @ 0 mls/hr CONT PRN IV PER PROTOCOL Last administered on 03/10/19at 23:34; Start 03/09/19 at 23:45; Stop 03/11/19 at 16:13; Status DC Heparin Sodium (Porcine) (Heparin Sodium) 5,500 unit PRN Q6HRS PRN IV FOR UFH LEVEL LESS THAN 0.2 Last administered on 03/11/19at 00:57; Start 03/09/19 at 23:45; Stop 03/11/19 at 16:13; Status DC Aspirin (Aspirin Rectal Supp) 300 mg 1X ONCE [place] Last administered on 03/10/19at 03:42; Start 03/10/19 at 00:00; Stop 03/10/19 at 00:01; Status DC Propofol 50 ml @ As Directed STK-MED ONCE IV ; Start 03/09/19 at 23:38; Stop 03/09/19 at 23:38; Status DC Propofol 50 ml @ As Directed STK-MED ONCE IV ; Start 03/09/19 at 23:38; Stop 03/09/19 at 23:38; Status DC Piperacillin Sod/ Tazobactam Sod 4.5 gm/Sodium Chloride 100 ml @ 200 mls/hr 1X ONCE IV Last administered on 03/10/19at 05:19; Start 03/10/19 at 00:30; Stop 03/10/19 at 00:59; Status DC Propofol 50 ml @ As Directed STK-MED ONCE IV ; Start 03/10/19 at 00:51; Stop 03/10/19 at 00:51; Status DC Propofol 50 ml @ As Directed STK-MED ONCE IV ; Start 03/10/19 at 01:14; Stop 03/10/19 at 01:15; Status DC Fentanyl Citrate (Fentanyl 2ml Vial) 100 mcg 1X ONCE IV Last administered on 03/10/19at 01:26; Start 03/10/19 at 01:45; Stop 03/10/19 at 01:46; Status DC Clonidine HCl (Catapres) 0.1 mg 1X ONCE PO ; Start 03/10/19 at 01:30; Stop 03/10/19 at 01:34; Status DC Midazolam HCl (Versed) 5 mg 1X ONCE IV Last administered on 03/10/19at 01:28; Start 03/10/19 at 01:30; Stop 03/10/19 at 01:34; Status DC Propofol 50 ml @ As Directed STK-MED ONCE IV ; Start 03/10/19 at 02:08; Stop 03/10/19 at 02:09; Status DC Propofol 50 ml @ As Directed STK-MED ONCE IV ; Start 03/10/19 at 02:36; Stop 03/10/19 at 02:36; Status DC Rocuronium Justice (Zemuron) 50 mg STK-MED ONCE .ROUTE ; Start 03/10/19 at 05:15; Stop 03/10/19 at 05:15; Status DC Etomidate (Amidate) 20 mg STK-MED ONCE IV ; Start 03/10/19 at 05:15; Stop 03/10/19 at 05:16; Status DC Fentanyl Citrate 30 ml @ 0 mls/hr CONT PRN IV SEE PROTOCOL Last administered on 03/12/19at 05:45; Start 03/10/19 at 07:30 Propofol 100 ml @ 0 mls/hr CONT PRN IV SEE PROTOCOL; Start 03/10/19 at 07:30 Fentanyl Citrate (Fentanyl 2ml Vial) 25 mcg PRN Q1HR PRN IV SEE COMMENTS; Start 03/10/19 at 07:30 Fentanyl Citrate (Fentanyl 2ml Vial) 50 mcg PRN Q1HR PRN IV SEE COMMENTS; Start 03/10/19 at 07:30 Artificial Tears (Artificial Tears) 1 drop PRN Q1HR PRN OU DRY EYE Last administered on 03/12/19at 09:34; Start 03/10/19 at 07:30 Famotidine (Pepcid Vial) 20 mg BID IVP ; Start 03/10/19 at 09:00; Status UNV Morphine Sulfate (Morphine Sulfate) 2 mg PRN Q1HR PRN IV SEE COMMENTS.; Start 03/10/19 at 07:30 Morphine Sulfate (Morphine Sulfate) 4 mg PRN Q1HR PRN IV SEE COMMENTS.; Start 03/10/19 at 07:30 Midazolam HCl 100 ml @ 0 mls/hr CONT PRN IV SEE PROTOCOL Last administered on 03/12/19at 03:13; Start 03/10/19 at 07:30 Levofloxacin/ Dextrose (Levaquin Per Pharmacy) 1 each PRN DAILY PRN MC SEE COMMENTS; Start 03/10/19 at 08:15 Albuterol/ Ipratropium (Duoneb) 3 ml RTQID NEB Last administered on 03/12/19at 07:48; Start 03/10/19 at 12:00 Sodium Chloride 1,000 ml @ 100 mls/hr Q10H IV Last administered on 03/10/19at 23:34; Start 03/10/19 at 08:15; Stop 03/11/19 at 16:02; Status DC Amlodipine Besylate (Norvasc) 5 mg DAILY PO Last administered on 03/10/19at 09:13; Start 03/10/19 at 09:00; Stop 03/10/19 at 10:04; Status DC Hydrochlorothiazide (Hydrodiuril) 25 mg DAILY PO Last administered on 03/10/19at 09:13; Start 03/10/19 at 09:00; Stop 03/10/19 at 10:04; Status DC Lisinopril (Prinivil) 5 mg DAILY PO Last administered on 03/10/19at 09:13; Start 03/10/19 at 09:00; Stop 03/10/19 at 10:04; Status DC Levofloxacin/ Dextrose 100 ml @ 100 mls/hr Q24H IV Last administered on 03/12/19at 08:30; Start 03/10/19 at 09:00 Aspirin (Amanda Aspirin) 325 mg 1X ONCE PO Last administered on 03/10/19at 10:55; Start 03/10/19 at 10:30; Stop 03/10/19 at 10:31; Status DC Aspirin (Children'S Aspirin) 81 mg DAILYWBKFT PO Last administered on 03/12/19at 08:30; Start 03/11/19 at 08:00 Amlodipine Besylate (Norvasc) 10 mg DAILY PO Last administered on 03/11/19at 09:37; Start 03/11/19 at 09:00; Stop 03/11/19 at 12:50; Status DC Hydralazine HCl (Apresoline Inj) 10 mg PRN Q4HRS PRN IVP ELEVATED BP, SEE COMMENTS; Start 03/10/19 at 10:15; Stop 03/12/19 at 09:37; Status DC Furosemide (Lasix) 40 mg DAILY IVP Last administered on 03/11/19at 09:37; Start 03/10/19 at 11:00; Stop 03/11/19 at 11:24; Status DC Insulin Human Lispro (HumaLOG) 0-9 UNITS TIDWMEALS SQ ; Start 03/10/19 at 12:00; Stop 03/10/19 at 17:57; Status DC Dextrose (Dextrose 50%-Water Syringe) 12.5 gm PRN Q15MIN PRN IV SEE COMMENTS; Start 03/10/19 at 11:15 Dextrose 250 ml PRN Q15MIN PRN IV SEE COMMENTS; Start 03/10/19 at 11:15; Stop 03/10/19 at 11:05; Status DC Iohexol (Omnipaque 350 Mg/ml) 100 ml 1X ONCE IV Last administered on 03/10/19at 14:05; Start 03/10/19 at 11:45; Stop 03/10/19 at 11:47; Status DC Info (CONTRAST GIVEN -- Rx MONITORING) 1 each PRN DAILY PRN MC SEE COMMENTS; Start 03/10/19 at 11:45; Stop 03/12/19 at 11:44 Piperacillin Sod/ Tazobactam Sod (Zosyn Per Pharmacy) 1 each PRN DAILY PRN MC SEE COMMENTS; Start 03/10/19 at 11:45 Vancomycin HCl (Vanco Per Pharmacy) 1 each PRN DAILY PRN MC SEE COMMENTS Last administered on 03/11/19at 09:42; Start 03/10/19 at 11:45; Stop 03/11/19 at 13:57; Status DC Vancomycin HCl 2 gm/Sodium Chloride 500 ml @ 250 mls/hr 1X ONCE IV Last administered on 03/10/19at 12:41; Start 03/10/19 at 13:00; Stop 03/10/19 at 14:59; Status DC Piperacillin Sod/ Tazobactam Sod 3.375 gm/Sodium Chloride 50 ml @ 100 mls/hr Q6HRS IV Last administered on 03/12/19at 05:45; Start 03/10/19 at 12:30 Vancomycin HCl 1.75 gm/Sodium Chloride 500 ml @ 250 mls/hr Q12H IV Last administered on 03/11/19at 12:43; Start 03/11/19 at 01:00; Stop 03/11/19 at 13:57; Status DC Vancomycin HCl (Vancomycin Trough Level) 1 each 1X ONCE MC ; Start 03/12/19 at 12:30; Stop 03/12/19 at 12:31; Status Cancel Insulin Human Lispro (HumaLOG) 0-9 UNITS Q6HRS SQ ; Start 03/11/19 at 00:00 Magnesium Sulfate/ Dextrose 100 ml @ 50 mls/hr DAILY IV Last administered on 03/11/19at 09:28; Start 03/11/19 at 09:00; Stop 03/14/19 at 08:59 Potassium Phosphate 27.2 mmol/Sodium Chloride 259.0667 ml @ 64.753 m... 1X ONCE IV Last administered on 03/11/19at 09:28; Start 03/11/19 at 10:00; Stop 03/11/19 at 14:00; Status DC Potassium Phosphate 27.2 mmol/Sodium Chloride 259.0667 ml @ 64.753 m... 1X ONCE IV ; Start 03/11/19 at 14:00; Stop 03/11/19 at 18:00; Status DC Lorazepam (Ativan Inj) 1 mg PRN Q1HR PRN IV ANXIETY / AGITATION Last administered on 03/12/19at 03:55; Start 03/11/19 at 11:00 Sodium Chloride 1,000 ml @ 1,000 mls/hr 1X ONCE IV Last administered on 03/11/19at 12:06; Start 03/11/19 at 11:30; Stop 03/11/19 at 12:29; Status DC Norepinephrine Bitartrate 250 ml @ 27.837 mls/ hr CONT PRN IV SEE I/O RECORD Last administered on 03/11/19at 13:04; Start 03/11/19 at 13:00 Hydralazine HCl (Apresoline Inj) 10 mg PRN Q4HRS PRN IVP ELEVATED BP, SEE COMMENTS; Start 03/11/19 at 13:00 Linezolid/Dextrose 300 ml @ 300 mls/hr Q12HR IV Last administered on 03/12/19at 08:30; Start 03/11/19 at 21:00 Potassium Chloride/Water 50 ml @ 50 mls/hr Q1H IV Last administered on 03/11/19at 17:28; Start 03/11/19 at 16:00; Stop 03/11/19 at 17:59; Status DC Heparin Sodium (Porcine) (Heparin Sodium) 5,000 unit Q8HRS SQ Last administered on 03/12/19at 05:45; Start 03/11/19 at 22:00 Multi-Ingred Cream/Lotion/Oil/ Oint (Artificial Tears Eye Ointment) 1 zuri PRN Q1HR PRN OU DRY EYE; Start 03/12/19 at 09:00 Potassium Chloride/Water 50 ml @ 50 mls/hr 1X ONCE IV Last administered on 03/12/19at 09:44; Start 03/12/19 at 10:00; Stop 03/12/19 at 10:59 Active Scripts Active Norvasc (Amlodipine Besylate) 5 Mg Tablet 1 Tab PO DAILY Lisinopril 5 Mg Tablet 1 Tab PO DAILY Reported Hydrochlorothiazide Tablet (Hydrochlorothiazide) 25 Mg Tablet 25 Mg PO DAILY Allergies Allergies: Coded Allergies: No Known Drug Allergies (Unverified , 01/09/19) ROS Review of System Unable to Obtain 2/2 Intubated/MV Physical Exam Physical Exam GENERAL: Sedated, orally intubated HEENT: orally intubated. NECK: Supple, LUNGS: Clear. HEART: S1 and S2, regular. ABDOMEN: Benign, Obese EXTREMITIES: No edema or cyanosis. SKIN: chronic stasis dermatitis on the lower extremity, No rash NEUROLOGIC: Intubated Ramos + Vital Signs Vital Signs Date Time Temp Pulse Resp B/P (MAP) Pulse Ox O2 Delivery O2 Flow Rate FiO2 03/12/19 09:00 80 18 137/83 (101) 97 Ventilator 03/12/19 07:00 98.4 98.4 03/12/19 05:45 15.0 Assessment & Plan OSMAN- Vasomotor Good UOP, UA Ramos sample, unremarkable except RBC's Supportive care, Monitor , Avoid Nephrotoxins Hypokalemia- Replace per protocol Hypernatremia- Improving Increase free water flushes Acute hypercapnic respiratory - acute lung injury/noncardiogenic pulmonary edema/ ARDS due to vaping vs [id number] right heart failure with worsening hypercapnia. CHF- Per cardiology Morbid Obesity Vaping Labs Labs Laboratory Tests Test 03/10/19 11:29 03/10/19 16:05 03/10/19 17:07 03/10/19 23:30 Glucose (Fingerstick) 84 mg/dL (70-99) 103 mg/dL (70-99) Heparin Anti-Xa Act, Unfractionated 0.12 IU/mL (0.30-0.70) 0.17 IU/mL (0.30-0.70) Test 03/10/19 23:40 03/11/19 06:17 03/11/19 06:35 03/11/19 07:50 Glucose (Fingerstick) 99 mg/dL (70-99) 94 mg/dL (70-99) White Blood Count 9.1 x10^3/uL (4.0-11.0) Red Blood Count 5.39 x10^6/uL (4.30-5.70) Hemoglobin 13.0 g/dL (13.0-17.5) Hematocrit 41.5 % (39.0-53.0) Mean Corpuscular Volume 77 fL (79-100) Mean Corpuscular Hemoglobin 24 pg (25-35) Mean Corpuscular Hemoglobin Concent 31 g/dL (31-37) Red Cell Distribution Width 18.9 % (11.5-14.5) Platelet Count 175 x10^3/uL (140-400) Neutrophils (%) (Auto) 80 % (31-73) Lymphocytes (%) (Auto) 8 % (24-48) Monocytes (%) (Auto) 10 % (0-9) Eosinophils (%) (Auto) 1 % (0-3) Basophils (%) (Auto) 0 % (0-3) Neutrophils # (Auto) 7.3 x10^3/uL (1.8-7.7) Lymphocytes # (Auto) 0.8 x10^3/uL (1.0-4.8) Monocytes # (Auto) 1.0 x10^3/uL (0.0-1.1) Eosinophils # (Auto) 0.1 x10^3/uL (0.0-0.7) Basophils # (Auto) 0.0 x10^3/uL (0.0-0.2) Heparin Anti-Xa Act, Unfractionated 0.46 IU/mL (0.30-0.70) Sodium Level 150 mmol/L (136-145) Potassium Level 2.7 mmol/L (3.5-5.1) Chloride Level 109 mmol/L (98-107) Carbon Dioxide Level 37 mmol/L (21-32) Anion Gap 4 (6-14) Blood Urea Nitrogen 31 mg/dL (8-26) Creatinine 1.4 mg/dL (0.7-1.3) Estimated GFR (Cockcroft-Gault) 65.4 Glucose Level 106 mg/dL (70-99) Calcium Level 7.7 mg/dL (8.5-10.1) Phosphorus Level 2.1 mg/dL (2.6-4.7) Magnesium Level 1.4 mg/dL (1.8-2.4) Procalcitonin 0.12 ng/mL (0.00-0.10) O2 Saturation 96 % (92-99) Arterial Blood pH 7.52 (7.35-7.45) Arterial Blood pCO2 at Patient Temp 44 mmHg (35-46) Arterial Blood pO2 at Patient Temp 78 mmHg (75-108) Arterial Blood HCO3 35 mmol/L (21-28) Arterial Blood Base Excess 11 mmol/L (-3-3) FiO2 100 Test 03/11/19 12:00 03/11/19 12:11 03/11/19 15:20 03/11/19 18:12 Heparin Anti-Xa Act, Unfractionated 0.29 IU/mL (0.30-0.70) Glucose (Fingerstick) 105 mg/dL (70-99) 113 mg/dL (70-99) Potassium Level 3.2 mmol/L (3.5-5.1) Phosphorus Level 3.7 mg/dL (2.6-4.7) Magnesium Level 2.2 mg/dL (1.8-2.4) Test 03/12/19 01:07 03/12/19 06:00 03/12/19 08:00 Glucose (Fingerstick) 99 mg/dL (70-99) White Blood Count 8.2 x10^3/uL (4.0-11.0) Red Blood Count 5.42 x10^6/uL (4.30-5.70) Hemoglobin 13.1 g/dL (13.0-17.5) Hematocrit 42.0 % (39.0-53.0) Mean Corpuscular Volume 78 fL (79-100) Mean Corpuscular Hemoglobin 24 pg (25-35) Mean Corpuscular Hemoglobin Concent 31 g/dL (31-37) Red Cell Distribution Width 18.9 % (11.5-14.5) Platelet Count 184 x10^3/uL (140-400) Neutrophils (%) (Auto) 78 % (31-73) Lymphocytes (%) (Auto) 9 % (24-48) Monocytes (%) (Auto) 10 % (0-9) Eosinophils (%) (Auto) 2 % (0-3) Basophils (%) (Auto) 1 % (0-3) Neutrophils # (Auto) 6.4 x10^3/uL (1.8-7.7) Lymphocytes # (Auto) 0.7 x10^3/uL (1.0-4.8) Monocytes # (Auto) 0.8 x10^3/uL (0.0-1.1) Eosinophils # (Auto) 0.2 x10^3/uL (0.0-0.7) Basophils # (Auto) 0.1 x10^3/uL (0.0-0.2) Sodium Level 148 mmol/L (136-145) Potassium Level 3.4 mmol/L (3.5-5.1) Chloride Level 107 mmol/L (98-107) Carbon Dioxide Level 37 mmol/L (21-32) Anion Gap 4 (6-14) Blood Urea Nitrogen 29 mg/dL (8-26) Creatinine 1.5 mg/dL (0.7-1.3) Estimated GFR (Cockcroft-Gault) 60.4 BUN/Creatinine Ratio 19 (6-20) Glucose Level 96 mg/dL (70-99) Calcium Level 8.3 mg/dL (8.5-10.1) Total Bilirubin 2.0 mg/dL (0.2-1.0) Aspartate Amino Transf (AST/SGOT) 31 U/L (15-37) Alanine Aminotransferase (ALT/SGPT) 153 U/L (16-63) Alkaline Phosphatase 77 U/L (46-116) Total Protein 5.7 g/dL (6.4-8.2) Albumin 2.4 g/dL (3.4-5.0) Albumin/Globulin Ratio 0.7 (1.0-1.7) O2 Saturation 95 % (92-99) Arterial Blood pH 7.47 (7.35-7.45) Arterial Blood pCO2 at Patient Temp 48 mmHg (35-46) Arterial Blood pO2 at Patient Temp 75 mmHg (75-108) Arterial Blood HCO3 34 mmol/L (21-28) Arterial Blood Base Excess 9 mmol/L (-3-3) FiO2 90 Laboratory Tests Test 03/11/19 12:00 03/11/19 12:11 03/11/19 15:20 03/11/19 18:12 Heparin Anti-Xa Act, Unfractionated 0.29 IU/mL (0.30-0.70) Glucose (Fingerstick) 105 mg/dL (70-99) 113 mg/dL (70-99) Potassium Level 3.2 mmol/L (3.5-5.1) Phosphorus Level 3.7 mg/dL (2.6-4.7) Magnesium Level 2.2 mg/dL (1.8-2.4) Test 03/12/19 01:07 03/12/19 06:00 03/12/19 08:00 Glucose (Fingerstick) 99 mg/dL (70-99) White Blood Count 8.2 x10^3/uL (4.0-11.0) Red Blood Count 5.42 x10^6/uL (4.30-5.70) Hemoglobin 13.1 g/dL (13.0-17.5) Hematocrit 42.0 % (39.0-53.0) Mean Corpuscular Volume 78 fL (79-100) Mean Corpuscular Hemoglobin 24 pg (25-35) Mean Corpuscular Hemoglobin Concent 31 g/dL (31-37) Red Cell Distribution Width 18.9 % (11.5-14.5) Platelet Count 184 x10^3/uL (140-400) Neutrophils (%) (Auto) 78 % (31-73) Lymphocytes (%) (Auto) 9 % (24-48) Monocytes (%) (Auto) 10 % (0-9) Eosinophils (%) (Auto) 2 % (0-3) Basophils (%) (Auto) 1 % (0-3) Neutrophils # (Auto) 6.4 x10^3/uL (1.8-7.7) Lymphocytes # (Auto) 0.7 x10^3/uL (1.0-4.8) Monocytes # (Auto) 0.8 x10^3/uL (0.0-1.1) Eosinophils # (Auto) 0.2 x10^3/uL (0.0-0.7) Basophils # (Auto) 0.1 x10^3/uL (0.0-0.2) Sodium Level 148 mmol/L (136-145) Potassium Level 3.4 mmol/L (3.5-5.1) Chloride Level 107 mmol/L (98-107) Carbon Dioxide Level 37 mmol/L (21-32) Anion Gap 4 (6-14) Blood Urea Nitrogen 29 mg/dL (8-26) Creatinine 1.5 mg/dL (0.7-1.3) Estimated GFR (Cockcroft-Gault) 60.4 BUN/Creatinine Ratio 19 (6-20) Glucose Level 96 mg/dL (70-99) Calcium Level 8.3 mg/dL (8.5-10.1) Total Bilirubin 2.0 mg/dL (0.2-1.0) Aspartate Amino Transf (AST/SGOT) 31 U/L (15-37) Alanine Aminotransferase (ALT/SGPT) 153 U/L (16-63) Alkaline Phosphatase 77 U/L (46-116) Total Protein 5.7 g/dL (6.4-8.2) Albumin 2.4 g/dL (3.4-5.0) Albumin/Globulin Ratio 0.7 (1.0-1.7) O2 Saturation 95 % (92-99) Arterial Blood pH 7.47 (7.35-7.45) Arterial Blood pCO2 at Patient Temp 48 mmHg (35-46) Arterial Blood pO2 at Patient Temp 75 mmHg (75-108) Arterial Blood HCO3 34 mmol/L (21-28) Arterial Blood Base Excess 9 mmol/L (-3-3) FiO2 90 Review All relevant outside records, renal labs, imaging studies, telemetry/EKG's were reviewed. Images Images Stable cardiomegaly. Mediastinal and hilar contours are grossly stable. Bilateral airspace opacities have improved with improved aeration particularly in the left midlung. Small bilateral pleural effusions. No definite pneumothorax. SARAH GAYTAN MD Mar 12, 2019 10:05
--- NOTE | 2019-03-12 11:59 | PDOC ---
PULMONARY PROGRESS NOTES Subjective remains intubated, sedated on 90% FIO2, 10 of PEEP Vitals Vital Signs Date Time Temp Pulse Resp B/P (MAP) Pulse Ox O2 Delivery O2 Flow Rate FiO2 03/12/19 11:43 16 96 Ventilator 03/12/19 11:00 98.4 71 123/78 (93) 98.4 03/12/19 05:45 15.0 Lungs: Other (decrease bs) Cardiovascular: S1, S2 Abdomen: Soft, Other (obese) Extremities: Other (trace edema) Labs Laboratory Tests Test 03/10/19 16:05 03/10/19 17:07 03/10/19 23:30 03/10/19 23:40 Heparin Anti-Xa Act, Unfractionated 0.12 IU/mL (0.30-0.70) 0.17 IU/mL (0.30-0.70) Glucose (Fingerstick) 103 mg/dL (70-99) 99 mg/dL (70-99) Test 03/11/19 06:17 03/11/19 06:35 03/11/19 07:50 03/11/19 12:00 Glucose (Fingerstick) 94 mg/dL (70-99) White Blood Count 9.1 x10^3/uL (4.0-11.0) Red Blood Count 5.39 x10^6/uL (4.30-5.70) Hemoglobin 13.0 g/dL (13.0-17.5) Hematocrit 41.5 % (39.0-53.0) Mean Corpuscular Volume 77 fL (79-100) Mean Corpuscular Hemoglobin 24 pg (25-35) Mean Corpuscular Hemoglobin Concent 31 g/dL (31-37) Red Cell Distribution Width 18.9 % (11.5-14.5) Platelet Count 175 x10^3/uL (140-400) Neutrophils (%) (Auto) 80 % (31-73) Lymphocytes (%) (Auto) 8 % (24-48) Monocytes (%) (Auto) 10 % (0-9) Eosinophils (%) (Auto) 1 % (0-3) Basophils (%) (Auto) 0 % (0-3) Neutrophils # (Auto) 7.3 x10^3/uL (1.8-7.7) Lymphocytes # (Auto) 0.8 x10^3/uL (1.0-4.8) Monocytes # (Auto) 1.0 x10^3/uL (0.0-1.1) Eosinophils # (Auto) 0.1 x10^3/uL (0.0-0.7) Basophils # (Auto) 0.0 x10^3/uL (0.0-0.2) Heparin Anti-Xa Act, Unfractionated 0.46 IU/mL (0.30-0.70) 0.29 IU/mL (0.30-0.70) Sodium Level 150 mmol/L (136-145) Potassium Level 2.7 mmol/L (3.5-5.1) Chloride Level 109 mmol/L (98-107) Carbon Dioxide Level 37 mmol/L (21-32) Anion Gap 4 (6-14) Blood Urea Nitrogen 31 mg/dL (8-26) Creatinine 1.4 mg/dL (0.7-1.3) Estimated GFR (Cockcroft-Gault) 65.4 Glucose Level 106 mg/dL (70-99) Calcium Level 7.7 mg/dL (8.5-10.1) Phosphorus Level 2.1 mg/dL (2.6-4.7) Magnesium Level 1.4 mg/dL (1.8-2.4) Procalcitonin 0.12 ng/mL (0.00-0.10) O2 Saturation 96 % (92-99) Arterial Blood pH 7.52 (7.35-7.45) Arterial Blood pCO2 at Patient Temp 44 mmHg (35-46) Arterial Blood pO2 at Patient Temp 78 mmHg (75-108) Arterial Blood HCO3 35 mmol/L (21-28) Arterial Blood Base Excess 11 mmol/L (-3-3) FiO2 100 Test 03/11/19 12:11 03/11/19 15:20 03/11/19 18:12 03/12/19 01:07 Glucose (Fingerstick) 105 mg/dL (70-99) 113 mg/dL (70-99) 99 mg/dL (70-99) Potassium Level 3.2 mmol/L (3.5-5.1) Phosphorus Level 3.7 mg/dL (2.6-4.7) Magnesium Level 2.2 mg/dL (1.8-2.4) Test 03/12/19 06:00 03/12/19 08:00 White Blood Count 8.2 x10^3/uL (4.0-11.0) Red Blood Count 5.42 x10^6/uL (4.30-5.70) Hemoglobin 13.1 g/dL (13.0-17.5) Hematocrit 42.0 % (39.0-53.0) Mean Corpuscular Volume 78 fL (79-100) Mean Corpuscular Hemoglobin 24 pg (25-35) Mean Corpuscular Hemoglobin Concent 31 g/dL (31-37) Red Cell Distribution Width 18.9 % (11.5-14.5) Platelet Count 184 x10^3/uL (140-400) Neutrophils (%) (Auto) 78 % (31-73) Lymphocytes (%) (Auto) 9 % (24-48) Monocytes (%) (Auto) 10 % (0-9) Eosinophils (%) (Auto) 2 % (0-3) Basophils (%) (Auto) 1 % (0-3) Neutrophils # (Auto) 6.4 x10^3/uL (1.8-7.7) Lymphocytes # (Auto) 0.7 x10^3/uL (1.0-4.8) Monocytes # (Auto) 0.8 x10^3/uL (0.0-1.1) Eosinophils # (Auto) 0.2 x10^3/uL (0.0-0.7) Basophils # (Auto) 0.1 x10^3/uL (0.0-0.2) Sodium Level 148 mmol/L (136-145) Potassium Level 3.4 mmol/L (3.5-5.1) Chloride Level 107 mmol/L (98-107) Carbon Dioxide Level 37 mmol/L (21-32) Anion Gap 4 (6-14) Blood Urea Nitrogen 29 mg/dL (8-26) Creatinine 1.5 mg/dL (0.7-1.3) Estimated GFR (Cockcroft-Gault) 60.4 BUN/Creatinine Ratio 19 (6-20) Glucose Level 96 mg/dL (70-99) Calcium Level 8.3 mg/dL (8.5-10.1) Total Bilirubin 2.0 mg/dL (0.2-1.0) Aspartate Amino Transf (AST/SGOT) 31 U/L (15-37) Alanine Aminotransferase (ALT/SGPT) 153 U/L (16-63) Alkaline Phosphatase 77 U/L (46-116) Total Protein 5.7 g/dL (6.4-8.2) Albumin 2.4 g/dL (3.4-5.0) Albumin/Globulin Ratio 0.7 (1.0-1.7) O2 Saturation 95 % (92-99) Arterial Blood pH 7.47 (7.35-7.45) Arterial Blood pCO2 at Patient Temp 48 mmHg (35-46) Arterial Blood pO2 at Patient Temp 75 mmHg (75-108) Arterial Blood HCO3 34 mmol/L (21-28) Arterial Blood Base Excess 9 mmol/L (-3-3) FiO2 90 Laboratory Tests Test 03/11/19 12:00 03/11/19 12:11 03/11/19 15:20 03/11/19 18:12 Heparin Anti-Xa Act, Unfractionated 0.29 IU/mL (0.30-0.70) Glucose (Fingerstick) 105 mg/dL (70-99) 113 mg/dL (70-99) Potassium Level 3.2 mmol/L (3.5-5.1) Phosphorus Level 3.7 mg/dL (2.6-4.7) Magnesium Level 2.2 mg/dL (1.8-2.4) Test 03/12/19 01:07 03/12/19 06:00 03/12/19 08:00 Glucose (Fingerstick) 99 mg/dL (70-99) White Blood Count 8.2 x10^3/uL (4.0-11.0) Red Blood Count 5.42 x10^6/uL (4.30-5.70) Hemoglobin 13.1 g/dL (13.0-17.5) Hematocrit 42.0 % (39.0-53.0) Mean Corpuscular Volume 78 fL (79-100) Mean Corpuscular Hemoglobin 24 pg (25-35) Mean Corpuscular Hemoglobin Concent 31 g/dL (31-37) Red Cell Distribution Width 18.9 % (11.5-14.5) Platelet Count 184 x10^3/uL (140-400) Neutrophils (%) (Auto) 78 % (31-73) Lymphocytes (%) (Auto) 9 % (24-48) Monocytes (%) (Auto) 10 % (0-9) Eosinophils (%) (Auto) 2 % (0-3) Basophils (%) (Auto) 1 % (0-3) Neutrophils # (Auto) 6.4 x10^3/uL (1.8-7.7) Lymphocytes # (Auto) 0.7 x10^3/uL (1.0-4.8) Monocytes # (Auto) 0.8 x10^3/uL (0.0-1.1) Eosinophils # (Auto) 0.2 x10^3/uL (0.0-0.7) Basophils # (Auto) 0.1 x10^3/uL (0.0-0.2) Sodium Level 148 mmol/L (136-145) Potassium Level 3.4 mmol/L (3.5-5.1) Chloride Level 107 mmol/L (98-107) Carbon Dioxide Level 37 mmol/L (21-32) Anion Gap 4 (6-14) Blood Urea Nitrogen 29 mg/dL (8-26) Creatinine 1.5 mg/dL (0.7-1.3) Estimated GFR (Cockcroft-Gault) 60.4 BUN/Creatinine Ratio 19 (6-20) Glucose Level 96 mg/dL (70-99) Calcium Level 8.3 mg/dL (8.5-10.1) Total Bilirubin 2.0 mg/dL (0.2-1.0) Aspartate Amino Transf (AST/SGOT) 31 U/L (15-37) Alanine Aminotransferase (ALT/SGPT) 153 U/L (16-63) Alkaline Phosphatase 77 U/L (46-116) Total Protein 5.7 g/dL (6.4-8.2) Albumin 2.4 g/dL (3.4-5.0) Albumin/Globulin Ratio 0.7 (1.0-1.7) O2 Saturation 95 % (92-99) Arterial Blood pH 7.47 (7.35-7.45) Arterial Blood pCO2 at Patient Temp 48 mmHg (35-46) Arterial Blood pO2 at Patient Temp 75 mmHg (75-108) Arterial Blood HCO3 34 mmol/L (21-28) Arterial Blood Base Excess 9 mmol/L (-3-3) FiO2 90 Medications Active Scripts Medications Dose Route/Sig Max Daily Dose Days Date Category Hydrochlorothiazide Tablet (Hydrochlorothiazide) 25 Mg Tablet 25 Mg PO DAILY 03/10/19 Reported Norvasc (Amlodipine Besylate) 5 Mg Tablet 1 Tab PO DAILY 01/12/19 Rx Lisinopril 5 Mg Tablet 1 Tab PO DAILY 01/12/19 Rx Comments cxr 03/12 bilateral infiltrate Impression . 1. Acute hypercapnic respiratory failure secondary to multifactorial etiologies. Likely related to acute lung injury/noncardiogenic pulmonary edema/ ARDS due to vaping. Other less possibilities would be [id number] right heart failure with worsening hypercapnia. Likelihood of pulmonary embolism is less, CTA non diagnostic for PE. 2. Abnormal chest x-ray with diffuse lung infiltrates. Could be noncardiogenic pulmonary edema. CT chest reviewed. Dependant atelectasis / possible aspiration pneumonia 3. History of morbid obesity with Pickwickian physiology with chronic hypercapnia and chronic hypoxic respiratory failure, history of obstructive sleep apnea as well, but noncompliant to CPAP. 4. Acute kidney injury. 5. Increased troponin. Possible non-ST myocardial infarction. 6. Previous echo with normal ejection fraction. 7. History of tobacco use. Plan . 1. Continue with present assist control mode and high PEEP, FIO2 90%. Reduced the rate and make necessary adjustment based on followup ABGs. 2. CTA chest has been reviewed. 3. No acute bleed on CT head. 4. BS antibiotic coverage to cover for gram-negative and gram-positive pneumonia. 5. Monitor fever and white cell count. 6. Continue bronchodilators. 7. Heparin per Cardiology. 8. P.r.n. diuresis.Need to watch BP closely 9. Discussed with brother 9/3, discussed with RN and RT. We will follow along with you. 10. Condition guarded MARIO ALLEN MD Mar 12, 2019 11:59
--- NOTE | 2019-03-12 14:30 | NUR ---
continue to keep pt with moderate sedation with versed and fentanyl. pt maintaining o2 sat with changes to vent of ac 16 and fio2 decreased to 85%.
[2019-03-12] MEDS ORDERED: IV DEXTROSE 5% 250 ML BAG. IV PRN (16:15)
[2019-03-12] MEDS ORDERED: DEXTROSE 50% 25 GM / 50ML DISP.SYRIN. IV PRN (16:15)
[2019-03-12] MEDS ORDERED: INSULIN LISPRO 300 UNITS/3 ML VIAL. SQ SCH (17:00)
--- NOTE | 2019-03-12 17:49 | PDOC2 ---
PALLIATIVE CARE Palliative Care Note Palliative Care Consult requested by Dr. Infante to address goals of care. Medical Assessment per medical record; 1. Acute hypercapnic respiratory failure secondary to multifactorial etiologies. Likely related to acute lung injury/noncardiogenic pulmonary edema/ ARDS due to vaping. Other less possibilities would be [id number] right heart failure with worsening hypercapnia. Likelihood of pulmonary embolism is less, CTA non diagnostic for PE. 2. Abnormal chest x-ray with diffuse lung infiltrates. Could be noncardiogenic pulmonary edema. CT chest reviewed. Dependant atelectasis / possible aspiration pneumonia 3. History of morbid obesity with Pickwickian physiology with chronic hypercapnia and chronic hypoxic respiratory failure, history of obstructive sleep apnea as well, but noncompliant to CPAP. 4. Acute kidney injury. 5. Increased troponin. Possible non-ST myocardial infarction. 6. Previous echo with normal ejection fraction. 7. History of tobacco use. Pt. intubated Vent 85% Peep 10 Sedated on Fentanyl and Versed. Tube Feeding tolerated. Spoke with patient's sister Mroa. Will arrange family meeting to discuss goals of care. FRANCIS DELATORRE Mar 12, 2019 17:49
[2019-03-12] MEDS ORDERED: IV NORMAL SALINE 500ML BAG 500 ML IV PRN (20:30)
[2019-03-12] MEDS ORDERED: ATROPINE 0.5 MG/5 ML DISP.SYRINGE. IV PRN (20:30)
[2019-03-12] MEDS: DEXMEDETOMIDINE 400 MCG in IV NORMAL SALINE 100ML 96 ML IV PRN (22:03)
[2019-03-13] VITALS (24 sets, daily range): BP systolic 81–164; BP diastolic 49–81
[2019-03-13] MEDS: DEXMEDETOMIDINE 400 MCG in IV NORMAL SALINE 100ML 96 ML IV PRN ×4 (00:30→17:53)
[2019-03-13] MEDS: PIPERACILLIN/TAZOBACTAM 3.375 GM in IV NORMAL SALINE 50ML 50 ML IV SCH ×4 (00:32→17:52)
[2019-03-13] MEDS: NOREPINEPHRIN 8MG/250ML PREMIX 250 ML IV PRN (04:13)
[2019-03-13] MEDS: HEPARIN for SUB-Q USE 5,000 UNIT/ML VIAL. SQ SCH ×3 (05:54→21:23)
[2019-03-13] MEDS: INSULIN LISPRO 300 UNITS/3 ML VIAL. SQ SCH ×4 (05:57→18:00)
[2019-03-13 06:03] LABS: BASO # 0.1 x10^3/uL (0.0-0.2); BASO % 1 % (0-3); EOS # 0.4 x10^3/uL (0.0-0.7); EOS % 4 % (0-3); HEMATOCRIT 43.2 % (39.0-53.0); HEMOGLOBIN 13.5 g/dL (13.0-17.5); LYMPH # 0.8 x10^3/uL (1.0-4.8); LYMPH % 8 % (24-48); MEAN CORPUSCULAR HEMOGLOBIN 24 pg (25-35); MEAN CORPUSCULAR HGB CONC 31 g/dL (31-37); MEAN CORPUSCULAR VOLUME 78 fL (79-100); MONO % 11 % (0-9); NEUT # 7.2 x10^3/uL (1.8-7.7); NEUT % 76 % (31-73); PLATELET COUNT 177 x10^3/uL (140-400); RED BLOOD COUNT 5.54 x10^6/uL (4.30-5.70); WHITE BLOOD COUNT 9.4 x10^3/uL (4.0-11.0)
[2019-03-13 06:18] LABS: ALBUMIN 2.5 g/dL (3.4-5.0); ALBUMIN/GLOBULIN RATIO 0.7 (1.0-1.7); CALCIUM 8.7 mg/dL (8.5-10.1); CREATININE 1.4 mg/dL (0.7-1.3); GFR 65.4; POTASSIUM 4.1 mmol/L (3.5-5.1); TOTAL BILIRUBIN 2.2 mg/dL (0.2-1.0); TOTAL PROTEIN 6.3 g/dL (6.4-8.2)
[2019-03-13] MEDS ORDERED: VECURONIUM BOLUS 10 MG VIAL. IV PRN (07:30)
--- NOTE | 2019-03-13 07:38 | NUR ---
PATIENT WITH DECREASING SAO2. ALLEN NOTIFIED ORDERS RECEIVED TO INCREASE PEEP AND FI02. SLIGHT HYPOTENSION, LEVOPHED RESTARTED.
[2019-03-13] MEDS: IPRATRPIUM/ALBUTEROL 0.5/2.5MG 3 ML NEBU. NEB SCH ×4 (08:13→20:45)
--- NOTE | 2019-03-13 08:14 | PDOC ---
PROGRESS NOTES History of Present Illness History of Present Illness VTE Prophylaxis Ordered VTE Prophylaxis Devices: Yes VTE Pharmacological Prophylaxi: Yes Assessment/Plan Assessment/Plan Acute mixed hypoxic, hypercapnic respiratory failure-CO2 was 127 with a pH of 7.1 on arrival Morbid obesity BMI 42 Severe COPD exacerbation, COPD or on 2-3 L nasal cannula-home dependent 02 History of CHF and diabetes mellitus per documentation SIRS POA, no consulted process on chest x-ray Troponin elevation in the background of the above medical illnesses Mild hyponatremia 134, reactive leukocytosis AK I VMN creatinine 1.2 Hypertension POA-blood pressure 160s systolic POSSIBLE UTI CTA CHEST Examination is nondiagnostic for pulmonary embolism as there is not enough contrast within the pulmonary artery and its branches. Moderate bibasilar lung consolidation disease with air bronchograms likely pneumonia or atelectasis with small bilateral pleural effusions. Aneurysmal change of the ascending aorta Mediastinal and hilar contours are grossly stable. Bilateral airspace opacities have improved with improved aeration particularly in the left midlung. Small bilateral pleural effusions. No definite pneumothorax. 03/12 Plan ICU Bed, vent Needing max amount of oxygen and high PEEP c/w shunt physiology due to ARDS Pulmonary FOLLOWING consult cardiology PPI DVT prophylaxis Start sliding scale insulin Monitor labs heparin drip by cardiology replace lytes, per protocol d/w RN BY PHONE URINE CULTURE id consult blood culture sputum culture procalcitonin cont zyvox zosyn and levaquin overall prognosis poor, consult palliative care for goals of treatment FAMILY CALLED CONT FULL CODE FOR NOW cc 32 min Vitals Vitals Vital Signs Date Time Temp Pulse Resp B/P (MAP) Pulse Ox O2 Delivery O2 Flow Rate FiO2 03/13/19 06:00 16 16 104/65 (78) 95 Ventilator 03/13/19 04:00 98.3 98.3 Physical Exam Physical Exam GENERAL: Sedated, orally intubated gentleman, not in any distress. VITAL SIGNS: Stable, afebrile. HEENT: NAD. Both pupils are round and reacting. Mouth cannot be much visualized since orally intubated. NECK: Supple, no JVP, no lymphadenopathy. LUNGS: Clear. HEART: S1 and S2, regular. ABDOMEN: Benign. EXTREMITIES: No edema or cyanosis. SKIN: Unremarkable other than chronic stasis dermatitis on the lower extremity. NEUROLOGIC: The patient had been moving all the extremities before intubation and sedation. General: No acute distress, Other (short neck , Mallampati 4 ON VENT) Heart: Regular rate (SR), Other (distante heart sounds) Lungs: Other (decrease bs) Abdomen: Normal bowel sounds, Soft, No tenderness, No hepatosplenomegaly, No masses Extremities: No clubbing, No cyanosis, No edema, Normal pulses, No tenderness/swelling Skin: No rashes, No breakdown, No significant lesion Labs LABS Laboratory Tests Test 03/12/19 12:34 03/12/19 17:16 03/13/19 01:03 03/13/19 05:50 Glucose (Fingerstick) 101 mg/dL (70-99) 104 mg/dL (70-99) 107 mg/dL (70-99) White Blood Count 9.4 x10^3/uL (4.0-11.0) Red Blood Count 5.54 x10^6/uL (4.30-5.70) Hemoglobin 13.5 g/dL (13.0-17.5) Hematocrit 43.2 % (39.0-53.0) Mean Corpuscular Volume 78 fL (79-100) Mean Corpuscular Hemoglobin 24 pg (25-35) Mean Corpuscular Hemoglobin Concent 31 g/dL (31-37) Red Cell Distribution Width 19.0 % (11.5-14.5) Platelet Count 177 x10^3/uL (140-400) Neutrophils (%) (Auto) 76 % (31-73) Lymphocytes (%) (Auto) 8 % (24-48) Monocytes (%) (Auto) 11 % (0-9) Eosinophils (%) (Auto) 4 % (0-3) Basophils (%) (Auto) 1 % (0-3) Neutrophils # (Auto) 7.2 x10^3/uL (1.8-7.7) Lymphocytes # (Auto) 0.8 x10^3/uL (1.0-4.8) Monocytes # (Auto) 1.0 x10^3/uL (0.0-1.1) Eosinophils # (Auto) 0.4 x10^3/uL (0.0-0.7) Basophils # (Auto) 0.1 x10^3/uL (0.0-0.2) Sodium Level 144 mmol/L (136-145) Potassium Level 4.1 mmol/L (3.5-5.1) Chloride Level 104 mmol/L (98-107) Carbon Dioxide Level 35 mmol/L (21-32) Anion Gap 5 (6-14) Blood Urea Nitrogen 26 mg/dL (8-26) Creatinine 1.4 mg/dL (0.7-1.3) Estimated GFR (Cockcroft-Gault) 65.4 BUN/Creatinine Ratio 19 (6-20) Glucose Level 119 mg/dL (70-99) Calcium Level 8.7 mg/dL (8.5-10.1) Magnesium Level 2.0 mg/dL (1.8-2.4) Total Bilirubin 2.2 mg/dL (0.2-1.0) Aspartate Amino Transf (AST/SGOT) 24 U/L (15-37) Alanine Aminotransferase (ALT/SGPT) 118 U/L (16-63) Alkaline Phosphatase 78 U/L (46-116) Total Protein 6.3 g/dL (6.4-8.2) Albumin 2.5 g/dL (3.4-5.0) Albumin/Globulin Ratio 0.7 (1.0-1.7) Test 03/13/19 05:55 Glucose (Fingerstick) 108 mg/dL (70-99) Assessment and Plan Assessmemt and Plan Problems Medical Problems: (1) CHF exacerbation Status: Acute (2) COPD exacerbation Status: Acute (3) Hypoxia Status: Acute (4) NSTEMI (non-ST elevated myocardial infarction) Status: Acute (5) Respiratory failure Status: Acute Comment Review of Relevant I have reviewed the following items peter (where applicable) has been applied. Labs Laboratory Tests Test 03/11/19 12:00 03/11/19 12:11 03/11/19 15:20 03/11/19 18:12 Heparin Anti-Xa Act, Unfractionated 0.29 IU/mL (0.30-0.70) Glucose (Fingerstick) 105 mg/dL (70-99) 113 mg/dL (70-99) Potassium Level 3.2 mmol/L (3.5-5.1) Phosphorus Level 3.7 mg/dL (2.6-4.7) Magnesium Level 2.2 mg/dL (1.8-2.4) Test 03/12/19 01:07 03/12/19 06:00 03/12/19 08:00 03/12/19 12:34 Glucose (Fingerstick) 99 mg/dL (70-99) 81 mg/dL (70-99) 101 mg/dL (70-99) White Blood Count 8.2 x10^3/uL (4.0-11.0) Red Blood Count 5.42 x10^6/uL (4.30-5.70) Hemoglobin 13.1 g/dL (13.0-17.5) Hematocrit 42.0 % (39.0-53.0) Mean Corpuscular Volume 78 fL (79-100) Mean Corpuscular Hemoglobin 24 pg (25-35) Mean Corpuscular Hemoglobin Concent 31 g/dL (31-37) Red Cell Distribution Width 18.9 % (11.5-14.5) Platelet Count 184 x10^3/uL (140-400) Neutrophils (%) (Auto) 78 % (31-73) Lymphocytes (%) (Auto) 9 % (24-48) Monocytes (%) (Auto) 10 % (0-9) Eosinophils (%) (Auto) 2 % (0-3) Basophils (%) (Auto) 1 % (0-3) Neutrophils # (Auto) 6.4 x10^3/uL (1.8-7.7) Lymphocytes # (Auto) 0.7 x10^3/uL (1.0-4.8) Monocytes # (Auto) 0.8 x10^3/uL (0.0-1.1) Eosinophils # (Auto) 0.2 x10^3/uL (0.0-0.7) Basophils # (Auto) 0.1 x10^3/uL (0.0-0.2) Sodium Level 148 mmol/L (136-145) Potassium Level 3.4 mmol/L (3.5-5.1) Chloride Level 107 mmol/L (98-107) Carbon Dioxide Level 37 mmol/L (21-32) Anion Gap 4 (6-14) Blood Urea Nitrogen 29 mg/dL (8-26) Creatinine 1.5 mg/dL (0.7-1.3) Estimated GFR (Cockcroft-Gault) 60.4 BUN/Creatinine Ratio 19 (6-20) Glucose Level 96 mg/dL (70-99) Calcium Level 8.3 mg/dL (8.5-10.1) Total Bilirubin 2.0 mg/dL (0.2-1.0) Aspartate Amino Transf (AST/SGOT) 31 U/L (15-37) Alanine Aminotransferase (ALT/SGPT) 153 U/L (16-63) Alkaline Phosphatase 77 U/L (46-116) Total Protein 5.7 g/dL (6.4-8.2) Albumin 2.4 g/dL (3.4-5.0) Albumin/Globulin Ratio 0.7 (1.0-1.7) O2 Saturation 95 % (92-99) Arterial Blood pH 7.47 (7.35-7.45) Arterial Blood pCO2 at Patient Temp 48 mmHg (35-46) Arterial Blood pO2 at Patient Temp 75 mmHg (75-108) Arterial Blood HCO3 34 mmol/L (21-28) Arterial Blood Base Excess 9 mmol/L (-3-3) FiO2 90 Test 03/12/19 17:16 03/13/19 01:03 03/13/19 05:50 03/13/19 05:55 Glucose (Fingerstick) 104 mg/dL (70-99) 107 mg/dL (70-99) 108 mg/dL (70-99) White Blood Count 9.4 x10^3/uL (4.0-11.0) Red Blood Count 5.54 x10^6/uL (4.30-5.70) Hemoglobin 13.5 g/dL (13.0-17.5) Hematocrit 43.2 % (39.0-53.0) Mean Corpuscular Volume 78 fL (79-100) Mean Corpuscular Hemoglobin 24 pg (25-35) Mean Corpuscular Hemoglobin Concent 31 g/dL (31-37) Red Cell Distribution Width 19.0 % (11.5-14.5) Platelet Count 177 x10^3/uL (140-400) Neutrophils (%) (Auto) 76 % (31-73) Lymphocytes (%) (Auto) 8 % (24-48) Monocytes (%) (Auto) 11 % (0-9) Eosinophils (%) (Auto) 4 % (0-3) Basophils (%) (Auto) 1 % (0-3) Neutrophils # (Auto) 7.2 x10^3/uL (1.8-7.7) Lymphocytes # (Auto) 0.8 x10^3/uL (1.0-4.8) Monocytes # (Auto) 1.0 x10^3/uL (0.0-1.1) Eosinophils # (Auto) 0.4 x10^3/uL (0.0-0.7) Basophils # (Auto) 0.1 x10^3/uL (0.0-0.2) Sodium Level 144 mmol/L (136-145) Potassium Level 4.1 mmol/L (3.5-5.1) Chloride Level 104 mmol/L (98-107) Carbon Dioxide Level 35 mmol/L (21-32) Anion Gap 5 (6-14) Blood Urea Nitrogen 26 mg/dL (8-26) Creatinine 1.4 mg/dL (0.7-1.3) Estimated GFR (Cockcroft-Gault) 65.4 BUN/Creatinine Ratio 19 (6-20) Glucose Level 119 mg/dL (70-99) Calcium Level 8.7 mg/dL (8.5-10.1) Magnesium Level 2.0 mg/dL (1.8-2.4) Total Bilirubin 2.2 mg/dL (0.2-1.0) Aspartate Amino Transf (AST/SGOT) 24 U/L (15-37) Alanine Aminotransferase (ALT/SGPT) 118 U/L (16-63) Alkaline Phosphatase 78 U/L (46-116) Total Protein 6.3 g/dL (6.4-8.2) Albumin 2.5 g/dL (3.4-5.0) Albumin/Globulin Ratio 0.7 (1.0-1.7) Laboratory Tests Test 03/12/19 12:34 03/12/19 17:16 03/13/19 01:03 03/13/19 05:50 Glucose (Fingerstick) 101 mg/dL (70-99) 104 mg/dL (70-99) 107 mg/dL (70-99) White Blood Count 9.4 x10^3/uL (4.0-11.0) Red Blood Count 5.54 x10^6/uL (4.30-5.70) Hemoglobin 13.5 g/dL (13.0-17.5) Hematocrit 43.2 % (39.0-53.0) Mean Corpuscular Volume 78 fL (79-100) Mean Corpuscular Hemoglobin 24 pg (25-35) Mean Corpuscular Hemoglobin Concent 31 g/dL (31-37) Red Cell Distribution Width 19.0 % (11.5-14.5) Platelet Count 177 x10^3/uL (140-400) Neutrophils (%) (Auto) 76 % (31-73) Lymphocytes (%) (Auto) 8 % (24-48) Monocytes (%) (Auto) 11 % (0-9) Eosinophils (%) (Auto) 4 % (0-3) Basophils (%) (Auto) 1 % (0-3) Neutrophils # (Auto) 7.2 x10^3/uL (1.8-7.7) Lymphocytes # (Auto) 0.8 x10^3/uL (1.0-4.8) Monocytes # (Auto) 1.0 x10^3/uL (0.0-1.1) Eosinophils # (Auto) 0.4 x10^3/uL (0.0-0.7) Basophils # (Auto) 0.1 x10^3/uL (0.0-0.2) Sodium Level 144 mmol/L (136-145) Potassium Level 4.1 mmol/L (3.5-5.1) Chloride Level 104 mmol/L (98-107) Carbon Dioxide Level 35 mmol/L (21-32) Anion Gap 5 (6-14) Blood Urea Nitrogen 26 mg/dL (8-26) Creatinine 1.4 mg/dL (0.7-1.3) Estimated GFR (Cockcroft-Gault) 65.4 BUN/Creatinine Ratio 19 (6-20) Glucose Level 119 mg/dL (70-99) Calcium Level 8.7 mg/dL (8.5-10.1) Magnesium Level 2.0 mg/dL (1.8-2.4) Total Bilirubin 2.2 mg/dL (0.2-1.0) Aspartate Amino Transf (AST/SGOT) 24 U/L (15-37) Alanine Aminotransferase (ALT/SGPT) 118 U/L (16-63) Alkaline Phosphatase 78 U/L (46-116) Total Protein 6.3 g/dL (6.4-8.2) Albumin 2.5 g/dL (3.4-5.0) Albumin/Globulin Ratio 0.7 (1.0-1.7) Test 03/13/19 05:55 Glucose (Fingerstick) 108 mg/dL (70-99) Microbiology 03/11/19 - Final, Resulted 03/11/19 - Final, Resulted 03/11/19 - Final, Resulted 03/11/19 - Preliminary, Resulted 03/11/19 - Preliminary, Resulted 03/11/19 - Preliminary, Resulted 03/11/19 Gram Stain Evaluation - Final, Resulted 03/11/19 Sputum Culture, Resulted Pending 03/10/19 Blood Culture - Preliminary, Resulted NO GROWTH AFTER 3 DAYS Medications Current Medications Albuterol/ Ipratropium (Duoneb) 3 ml 1X ONCE NEB Last administered on 03/09/19at 21:21; Start 03/09/19 at 21:30; Stop 03/09/19 at 21:31; Status DC Dexamethasone Sodium Phosphate (Decadron) 10 mg 1X ONCE IV Last administered on 03/09/19at 22:29; Start 03/09/19 at 22:00; Stop 03/09/19 at 22:01; Status DC Propofol 100 ml @ 0 mls/hr CONT PRN IV SEE PROTOCOL Last administered on 03/10/19at 07:19; Start 03/09/19 at 22:30; Stop 03/10/19 at 07:28; Status DC Fentanyl Citrate (Fentanyl 2ml Vial) 50 mcg PRN Q1HR PRN IV SEE COMMENTS; S tart 03/09/19 at 22:30; Stop 03/10/19 at 07:28; Status DC Chlorhexidine Gluconate (Peridex) 15 ml BID MM Last administered on 03/12/19at 20:35; Start 03/10/19 at 09:00 Famotidine (Pepcid Vial) 20 mg BID IVP Last administered on 03/12/19at 20:35; Start 03/10/19 at 09:00 Propofol 50 ml @ As Directed STK-MED ONCE IV ; Start 03/09/19 at 22:28; Stop 03/09/19 at 22:28; Status DC Albuterol/ Ipratropium (Duoneb) 3 ml 1X ONCE NEB Last administered on 03/10/19at 02:04; Start 03/09/19 at 23:00; Stop 03/09/19 at 23:01; Status DC Albuterol/ Ipratropium (Duoneb) 3 ml 1X ONCE NEB Last administered on 03/10/19at 02:04; Start 03/09/19 at 23:00; Stop 03/09/19 at 23:01; Status DC Fentanyl Citrate (Fentanyl 2ml Vial) 100 mcg 1X ONCE IV Last administered on 03/09/19at 23:31; Start 03/09/19 at 23:30; Stop 03/09/19 at 23:31; Status DC Bumetanide (Bumex) 1 mg 1X ONCE IV Last administered on 03/10/19at 00:21; Start 03/10/19 at 00:00; Stop 03/10/19 at 00:01; Status DC Heparin Sodium (Porcine) (Heparin Sodium) 4,000 unit 1X ONCE IV Last adminis tered on 03/10/19at 00:31; Start 03/10/19 at 00:00; Stop 03/10/19 at 00:01; Status DC Heparin Sodium/ Dextrose 500 ml @ 0 mls/hr CONT PRN IV PER PROTOCOL Last administered on 03/10/19at 23:34; Start 03/09/19 at 23:45; Stop 03/11/19 at 16:13; Status DC Heparin Sodium (Porcine) (Heparin Sodium) 5,500 unit PRN Q6HRS PRN IV FOR UFH LEVEL LESS THAN 0.2 Last administered on 03/11/19at 00:57; Start 03/09/19 at 23:45; Stop 03/11/19 at 16:13; Status DC Aspirin (Aspirin Rectal Supp) 300 mg 1X ONCE MA Last administered on 03/10/19at 03:42; Start 03/10/19 at 00:00; Stop 03/10/19 at 00:01; Status DC Propofol 50 ml @ As Directed STK-MED ONCE IV ; Start 03/09/19 at 23:38; Stop 03/09/19 at 23:38; Status DC Propofol 50 ml @ As Directed STK-MED ONCE IV ; Start 03/09/19 at 23:38; Stop 03/09/19 at 23:38; Status DC Piperacillin Sod/ Tazobactam Sod 4.5 gm/Sodium Chloride 100 ml @ 200 mls/hr 1X ONCE IV Last administered on 03/10/19at 05:19; Start 03/10/19 at 00:30; Stop 03/10/19 at 00:59; Status DC Propofol 50 ml @ As Directed STK-MED ONCE IV ; Start 03/10/19 at 00:51; Stop 03/10/19 at 00:51; Status DC Propofol 50 ml @ As Directed STK-MED ONCE IV ; Start 03/10/19 at 01:14; Stop 03/10/19 at 01:15; Status DC Fentanyl Citrate (Fentanyl 2ml Vial) 100 mcg 1X ONCE IV Last administered on 03/10/19at 01:26; Start 03/10/19 at 01:45; Stop 03/10/19 at 01:46; Status DC Clonidine HCl (Catapres) 0.1 mg 1X ONCE PO ; Start 03/10/19 at 01:30; Stop 03/10/19 at 01:34; Status DC Midazolam HCl (Versed) 5 mg 1X ONCE IV Last administered on 03/10/19at 01:28; Start 03/10/19 at 01:30; Stop 03/10/19 at 01:34; Status DC Propofol 50 ml @ As Directed STK-MED ONCE IV ; Start 03/10/19 at 02:08; Stop 03/10 at 02:09; Status DC Propofol 50 ml @ As Directed STK-MED ONCE IV ; Start 03/10/19 at 02:36; Stop 03/10/19 at 02:36; Status DC Rocuronium [place] (Zemuron) 50 mg STK-MED ONCE .ROUTE ; Start 03/10/19 at 05:15; Stop 03/10/19 at 05:15; Status DC Etomidate (Amidate) 20 mg STK-MED ONCE IV ; Start 03/10/19 at 05:15; Stop 03/10/19 at 05:16; Status DC Fentanyl Citrate 30 ml @ 0 mls/hr CONT PRN IV SEE PROTOCOL Last administered on 03/13/19at 04:41; Start 03/10/19 at 07:30 Propofol 100 ml @ 0 mls/hr CONT PRN IV SEE PROTOCOL; Start 03/10/19 at 07:30 Fentanyl Citrate (Fentanyl 2ml Vial) 25 mcg PRN Q1HR PRN IV SEE COMMENTS; Start 03/10/19 at 07:30 Fentanyl Citrate (Fentanyl 2ml Vial) 50 mcg PRN Q1HR PRN IV SEE COMMENTS; Start 03/10/19 at 07:30 Artificial Tears (Artificial Tears) 1 drop PRN Q1HR PRN OU DRY EYE Last administered on 03/12/19at 09:34; Start 03/10/19 at 07:30 Famotidine (Pepcid Vial) 20 mg BID IVP ; Start 03/10/19 at 09:00; Status UNV Morphine Sulfate (Morphine Sulfate) 2 mg PRN Q1HR PRN IV SEE COMMENTS.; Start 03/10/19 at 07:30 Morphine Sulfate (Morphine Sulfate) 4 mg PRN Q1HR PRN IV SEE COMMENTS.; Start 03/10/19 at 07:30 Midazolam HCl 100 ml @ 0 mls/hr CONT PRN IV SEE PROTOCOL Last administered on 03/12/19at 21:13; Start 03/10/19 at 07:30 Levofloxacin/ Dextrose (Levaquin Per Pharmacy) 1 each PRN DAILY PRN MC SEE COMMENTS; Start 03/10/19 at 08:15 Albuterol/ Ipratropium (Duoneb) 3 ml RTQID NEB Last administered on 03/13/19at 08:13; Start 03/10/19 at 12:00 Sodium Chloride 1,000 ml @ 100 mls/hr Q10H IV Last administered on 03/10/19at 23:34; Start 03/10/19 at 08:15; Stop 03/11/19 at 16:02; Status DC Amlodipine Besylate (Norvasc) 5 mg DAILY PO Last administered on 03/10/19at 09:13; Start 03/10/19 at 09:00; Stop 03/10/19 at 10:04; Status DC Hydrochlorothiazide (Hydrodiuril) 25 mg DAILY PO Last administered on 03/10/19at 09:13; Start 03/10/19 at 09:00; Stop 03/10/19 at 10:04; Status DC Lisinopril (Prinivil) 5 mg DAILY PO Last administered on 03/10/19at 09:13; Start 03/10/19 at 09:00; Stop 03/10/19 at 10:04; Status DC Levofloxacin/ Dextrose 100 ml @ 100 mls/hr Q24H IV Last administered on 03/12/19at 08:30; Start 03/10/19 at 09:00 Aspirin (Amanda Aspirin) 325 mg 1X ONCE PO Last administered on 03/10/19at 10:55; Start 03/10/19 at 10:30; Stop 03/10/19 at 10:31; Status DC Aspirin (Children'S Aspirin) 81 mg DAILYWBKFT PO Last administered on 03/12/19at 08:30; Start 03/11/19 at 08:00 Amlodipine Besylate (Norvasc) 10 mg DAILY PO Last administered on 03/11/19at 09:37; Start 03/11/19 at 09:00; Stop 03/11/19 at 12:50; Status DC Hydralazine HCl (Apresoline Inj) 10 mg PRN Q4HRS PRN IVP ELEVATED BP, SEE COMMENTS; Start 03/10/19 at 10:15; Stop 03/12/19 at 09:37; Status DC Furosemide (Lasix) 40 mg DAILY IVP Last administered on 03/11/19at 09:37; Start 03/10/19 at 11:00; Stop 03/11/19 at 11:24; Status DC Insulin Human Lispro (HumaLOG) 0-9 UNITS TIDWMEALS SQ ; Start 03/10/19 at 12:00; Stop 03/10/19 at 17:57; Status DC Dextrose (Dextrose 50%-Water Syringe) 12.5 gm PRN Q15MIN PRN IV SEE COMMENTS; Start 03/10/19 at 11:15; Stop 03/12/19 at 16:47; Status DC Dextrose 250 ml PRN Q15MIN PRN IV SEE COMMENTS; Start 03/10/19 at 11:15; Stop 03/10/19 at 11:05; Status DC Iohexol (Omnipaque 350 Mg/ml) 100 ml 1X ONCE IV Last administered on 03/10/19at 14:05; Start 03/10/19 at 11:45; Stop 03/10/19 at 11:47; Status DC Info (CONTRAST GIVEN -- Rx MONITORING) 1 each PRN DAILY PRN MC SEE COMMENTS; Start 03/10/19 at 11:45; Stop 03/12/19 at 11:44; Status DC Piperacillin Sod/ Tazobactam Sod (Zosyn Per Pharmacy) 1 each PRN DAILY PRN MC SEE COMMENTS; Start 03/10/19 at 11:45 Vancomycin HCl (Vanco Per Pharmacy) 1 each PRN DAILY PRN MC SEE COMMENTS Last administered on 03/11/19at 09:42; Start 03/10/19 at 11:45; Stop 03/11/19 at 13:57; Status DC Vancomycin HCl 2 gm/Sodium Chloride 500 ml @ 250 mls/hr 1X ONCE IV Last administered on 03/10/19at 12:41; Start 03/10/19 at 13:00; Stop 03/10/19 at 14:59; Status DC Piperacillin Sod/ Tazobactam Sod 3.375 gm/Sodium Chloride 50 ml @ 100 mls/hr Q6HRS IV Last administered on 03/13/19at 05:55; Start 03/10/19 at 12:30 Vancomycin HCl 1.75 gm/Sodium Chloride 500 ml @ 250 mls/hr Q12H IV Last administered on 03/11/19at 12:43; Start 03/11/19 at 01:00; Stop 03/11/19 at 13:57; Status DC Vancomycin HCl (Vancomycin Trough Level) 1 each 1X ONCE MC ; Start 03/12/19 at 12:30; Stop 03/12/19 at 12:31; Status Cancel Insulin Human Lispro (HumaLOG) 0-9 UNITS Q6HRS SQ ; Start 03/11/19 at 00:00; Stop 03/12/19 at 16:14; Status DC Magnesium Sulfate/ Dextrose 100 ml @ 50 mls/hr DAILY IV Last administered on 03/11/19at 09:28; Start 03/11/19 at 09:00; Stop 03/14/19 at 08:59 Potassium Phosphate 27.2 mmol/Sodium Chloride 259.0667 ml @ 64.753 m... 1X ONCE IV Last administered on 03/11/19at 09:28; Start 03/11/19 at 10:00; Stop 03/11/19 at 14:00; Status DC Potassium Phosphate 27.2 mmol/Sodium Chloride 259.0667 ml @ 64.753 m... 1X ONCE IV ; Start 03/11/19 at 14:00; Stop 03/11/19 at 18:00; Status DC Lorazepam (Ativan Inj) 1 mg PRN Q1HR PRN IV ANXIETY / AGITATION Last administered on 03/12/19at 20:19; Start 03/11/19 at 11:00 Sodium Chloride 1,000 ml @ 1,000 mls/hr 1X ONCE IV Last administered on 03/11/19at 12:06; Start 03/11/19 at 11:30; Stop 03/11/19 at 12:29; Status DC Norepinephrine Bitartrate 250 ml @ 27.837 mls/ hr CONT PRN IV SEE I/O RECORD Last administered on 03/13/19at 04:13; Start 03/11/19 at 13:00 Hydralazine HCl (Apresoline Inj) 10 mg PRN Q4HRS PRN IVP ELEVATED BP, SEE COMMENTS; Start 03/11/19 at 13:00 Linezolid/Dextrose 300 ml @ 300 mls/hr Q12HR IV Last administered on 03/12/19at 20:35; Start 03/11/19 at 21:00 Potassium Chloride/Water 50 ml @ 50 mls/hr Q1H IV Last administered on 03/11/19at 17:28; Start 03/11/19 at 16:00; Stop 03/11/19 at 17:59; Status DC Heparin Sodium (Porcine) (Heparin Sodium) 5,000 unit Q8HRS SQ Last administered on 03/13/19at 05:55; Start 03/11/19 at 22:00 Multi-Ingred Cream/Lotion/Oil/ Oint (Artificial Tears Eye Ointment) 1 zuri PRN Q1HR PRN OU DRY EYE; Start 03/12/19 at 09:00 Potassium Chloride/Water 50 ml @ 50 mls/hr 1X ONCE IV Last administered on 03/12/19at 09:44; Start 03/12/19 at 10:00; Stop 03/12/19 at 10:59; Status DC Potassium Chloride/Water 50 ml @ 50 mls/hr 1X ONCE IV ; Start 03/12/19 at 10:30; Stop 03/12/19 at 11:31; Status DC Insulin Human Lispro (HumaLOG) 0-9 UNITS TIDWMEALS SQ ; Start 03/12/19 at 17:00; Stop 03/12/19 at 16:24; Status DC Dextrose (Dextrose 50%-Water Syringe) 12.5 gm PRN Q15MIN PRN IV SEE COMMENTS; Start 03/12/19 at 16:15 Dextrose 250 ml PRN Q15MIN PRN IV SEE COMMENTS; Start 03/12/19 at 16:15 Insulin Human Lispro (HumaLOG) 0-9 UNITS Q6HRS SQ ; Start 03/12/19 at 18:00 Dexmedetomidine HCl 400 mcg/ Sodium Chloride 100 ml @ 0 mls/hr CONT PRN IV ANXIETY / AGITATION Last administered on 03/13/19at 06:02; Start 03/12/19 at 20:30 Sodium Chloride 500 ml @ 500 mls/hr 1X PRN PRN IV AGITATION Last administered on 03/12/19at 23:22; Start 03/12/19 at 20:30 Atropine Sulfate (ATROPINE 0.5mg SYRINGE) 0.5 mg PRN Q5MIN PRN IV SEE COMMENTS; Start 03/12/19 at 20:30 Vecuronium [place] (Norcuron Bolus) 10 mg PRN Q1HR PRN IV ON VENT/RESP FAILURE; Start 03/13/19 at 07:30 Active Scripts Active Norvasc (Amlodipine Besylate) 5 Mg Tablet 1 Tab PO DAILY Lisinopril 5 Mg Tablet 1 Tab PO DAILY Reported Hydrochlorothiazide Tablet (Hydrochlorothiazide) 25 Mg Tablet 25 Mg PO DAILY Vitals/I & O Vital Sign - Last 24 Hours 03/12/19 03/12/19 03/12/19 03/12/19 08:28 09:00 09:00 10:00 Pulse 80 80 Resp 18 18 18 B/P (MAP) 137/83 (101) 119/73 (88) Pulse Ox 99 97 97 97 O2 Delivery Ventilator Ventilator Ventilator Ventilator 03/12/19 03/12/19 03/12/19 03/12/19 11:00 11:18 11:43 12:00 Temp 98.4 98.4 Pulse 71 78 Resp 18 16 16 B/P (MAP) 123/78 (93) 127/65 (85) Pulse Ox 99 96 96 97 O2 Delivery Ventilator Ventilator Ventilator Ventilator 03/12/19 03/12/19 03/12/19 03/12/19 12:00 12:52 12:57 13:00 Pulse 78 Resp 16 16 B/P (MAP) 119/76 (90) Pulse Ox 96 96 97 O2 Delivery Mechanical Ventilator Ventilator Ventilator Ventilator 03/12/19 03/12/19 03/12/19 03/12/19 14:00 14:58 15:14 16:00 Temp 98.2 98.2 Pulse 78 77 75 Resp 16 16 16 B/P (MAP) 116/70 (85) 112/70 (84) 107/66 (80) Pulse Ox 97 95 96 97 O2 Delivery Ventilator Ventilator Ventilator Ventilator 03/12/19 03/12/19 03/12/19 03/12/19 16:09 17:00 17:14 17:15 Pulse 85 Resp 16 16 B/P (MAP) 103/66 (78) Pulse Ox 97 96 96 O2 Delivery Mechanical Ventilator Ventilator Ventilator Ventilator 03/12/19 03/12/19 03/12/19 03/12/19 17:38 18:00 19:00 19:39 Pulse 80 80 Resp 16 16 16 B/P (MAP) 110/72 (85) 96/59 (71) Pulse Ox 96 95 97 98 O2 Delivery Ventilator Ventilator Ventilator Ventilator 03/12/19 03/12/19 03/12/19 03/12/19 20:00 20:00 21:00 21:39 Temp 97.7 97.7 Pulse 84 87 Resp 16 16 B/P (MAP) 109/69 (82) 127/77 (94) Pulse Ox 96 94 96 O2 Delivery Mechanical Ventilator Ventilator Ventilator Ventilator 03/12/19 03/12/19 03/12/19 03/12/19 22:00 22:08 23:00 23:18 Pulse 75 76 Resp 16 16 16 B/P (MAP) 114/77 (89) 88/56 (67) Pulse Ox 97 98 88 89 O2 Delivery Ventilator Ventilator Ventilator 03/12/19 03/12/19 03/13/19 03/13/19 23:22 23:59 00:01 01:00 Temp 97.2 97.2 Pulse 75 73 Resp 16 16 16 B/P (MAP) 85/60 (68) 89/56 (67) Pulse Ox 98 94 95 O2 Delivery Ventilator Mechanical Ventilator Ventilator Ventilator 03/13/19 03/13/19 03/13/19 03/13/19 01:42 02:00 03:00 03:39 Pulse 71 68 Resp 16 16 B/P (MAP) 89/56 (67) 81/57 (65) Pulse Ox 95 95 95 95 O2 Delivery Ventilator Ventilator Ventilator Ventilator 03/13/19 03/13/19 03/13/19 03/13/19 04:00 04:00 04:41 05:00 Temp 98.3 98.3 Pulse 74 74 Resp 16 16 16 B/P (MAP) 83/56 (65) 102/69 (80) Pulse Ox 92 95 98 O2 Delivery Ventilator Mechanical Ventilator Ventilator 03/13/19 03/13/19 03/13/19 05:47 05:56 06:00 Pulse 16 Resp 16 16 B/P (MAP) 104/65 (78) Pulse Ox 95 95 O2 Delivery Ventilator Ventilator Intake and Output 03/12/19 03/12/19 03/13/19 15:00 23:00 07:00 Intake Total 900 ml 1999 ml 2146 ml Output Total 790 ml 565 ml 185 ml Balance 110 ml 1434 ml 1961 ml PRICILA GOMEZ MD Mar 13, 2019 08:14
[2019-03-13 08:32] LABS: BASE EXCESS ABG 6 mmol/L (-3-3); HCO3 ABG 32 mmol/L (21-28); PCO2 ABG 50 mmHg (35-46); PO2 ABG 78 mmHg (75-108); SAT O2 ABG 95 % (92-99)
[2019-03-13 08:35] LABS: FIO2 ABG 100
[2019-03-13] MEDS: CHLORHEXIDINE 0.12% 15 ML MOUTHWASH. MM SCH ×2 (09:00→21:18)
[2019-03-13] MEDS: MAGNESIUM SULFATE 4GM 100 ML IV SCH (09:00)
[2019-03-13] MEDS: FAMOTIDINE 20 MG/2 ML VIAL IVP SCH ×2 (09:03→21:19)
[2019-03-13] MEDS: ASPIRIN CHEWABLE 81 MG TABLET. PO SCH (09:03)
[2019-03-13] MEDS ORDERED: PERFLUTREN PROTEIN-A MICROSPHR 0.22 MG/ML 3 ML VIAL. IV ONE ×2 (09:08→09:15)
--- NOTE | 2019-03-13 09:34 | PDOC ---
Infectious Disease Note Subjective Subjective pt is intubated , sedated ROS ROS no n/v/d/ Vital Sign Vital Signs Vital Signs Date Time Temp Pulse Resp B/P (MAP) Pulse Ox O2 Delivery O2 Flow Rate FiO2 03/13/19 08:14 97 Ventilator 03/13/19 06:00 16 16 104/65 (78) 03/13/19 04:00 98.3 98.3 Physical Exam PHYSICAL EXAM GENERAL: Sedated, orally intubated gentleman, not in any distress. VITAL SIGNS: Stable, afebrile. HEENT: NAD. Both pupils are round and reacting. Mouth cannot be much visualized since orally intubated. NECK: Supple, no JVP, no lymphadenopathy. LUNGS: Clear. HEART: S1 and S2, regular. ABDOMEN: Benign. EXTREMITIES: No edema or cyanosis. SKIN: Unremarkable other than chronic stasis dermatitis on the lower extremity. NEUROLOGIC: The patient had been moving all the extremities before intubation and sedation. Labs Lab Laboratory Tests Test 03/12/19 12:34 03/12/19 17:16 03/13/19 01:03 03/13/19 05:50 Glucose (Fingerstick) 101 mg/dL (70-99) 104 mg/dL (70-99) 107 mg/dL (70-99) White Blood Count 9.4 x10^3/uL (4.0-11.0) Red Blood Count 5.54 x10^6/uL (4.30-5.70) Hemoglobin 13.5 g/dL (13.0-17.5) Hematocrit 43.2 % (39.0-53.0) Mean Corpuscular Volume 78 fL (79-100) Mean Corpuscular Hemoglobin 24 pg (25-35) Mean Corpuscular Hemoglobin Concent 31 g/dL (31-37) Red Cell Distribution Width 19.0 % (11.5-14.5) Platelet Count 177 x10^3/uL (140-400) Neutrophils (%) (Auto) 76 % (31-73) Lymphocytes (%) (Auto) 8 % (24-48) Monocytes (%) (Auto) 11 % (0-9) Eosinophils (%) (Auto) 4 % (0-3) Basophils (%) (Auto) 1 % (0-3) Neutrophils # (Auto) 7.2 x10^3/uL (1.8-7.7) Lymphocytes # (Auto) 0.8 x10^3/uL (1.0-4.8) Monocytes # (Auto) 1.0 x10^3/uL (0.0-1.1) Eosinophils # (Auto) 0.4 x10^3/uL (0.0-0.7) Basophils # (Auto) 0.1 x10^3/uL (0.0-0.2) Sodium Level 144 mmol/L (136-145) Potassium Level 4.1 mmol/L (3.5-5.1) Chloride Level 104 mmol/L (98-107) Carbon Dioxide Level 35 mmol/L (21-32) Anion Gap 5 (6-14) Blood Urea Nitrogen 26 mg/dL (8-26) Creatinine 1.4 mg/dL (0.7-1.3) Estimated GFR (Cockcroft-Gault) 65.4 BUN/Creatinine Ratio 19 (6-20) Glucose Level 119 mg/dL (70-99) Calcium Level 8.7 mg/dL (8.5-10.1) Magnesium Level 2.0 mg/dL (1.8-2.4) Total Bilirubin 2.2 mg/dL (0.2-1.0) Aspartate Amino Transf (AST/SGOT) 24 U/L (15-37) Alanine Aminotransferase (ALT/SGPT) 118 U/L (16-63) Alkaline Phosphatase 78 U/L (46-116) Total Protein 6.3 g/dL (6.4-8.2) Albumin 2.5 g/dL (3.4-5.0) Albumin/Globulin Ratio 0.7 (1.0-1.7) Test 03/13/19 05:55 03/13/19 08:20 Glucose (Fingerstick) 108 mg/dL (70-99) O2 Saturation 95 % (92-99) Arterial Blood pH 7.42 (7.35-7.45) Arterial Blood pCO2 at Patient Temp 50 mmHg (35-46) Arterial Blood pO2 at Patient Temp 78 mmHg (75-108) Arterial Blood HCO3 32 mmol/L (21-28) Arterial Blood Base Excess 6 mmol/L (-3-3) FiO2 100 Micro Microbiology 03/10/19 Blood Culture - Preliminary, Resulted NO GROWTH AFTER 1 DAY MMENTS: Has specimen been collected/obtained? Y Procedure Result GRAM STAIN WHITE BLOOD CELLS Final Many GRAM STAIN EPITHELIAL CELLS Final Moderate GRAM STAIN RESULT 1 Final Comment Moderate number of gram positive cocci. GRAM STAIN RESULT 2 Preliminary Test not performed GRAM STAIN RESULT 3 Preliminary Test not performed GRAM STAIN RESULT 4 Preliminary Test not performed GRAM STAIN EVALUATION Final Comment This specimen is of good quality and is acceptable for routine bacterial culture. Performed at: DA - [facility] [address], [place], [place] [id number] Repair Service Dispatcher: ALFREDO Cortez MD, Phone: [phone] Objective Assessment Pulmonary infiltrate CHF Obesity Vaping Respiratory failure Plan Plan of Care zyvox zosyn and levaquin sputum culture supportive care overall prognosis poor EDISON TABOR MD Mar 13, 2019 09:34
--- NOTE | 2019-03-13 10:09 | PDOC ---
SUBJECTIVE ROS Stable OBJECTIVE Vital Signs Vital Signs Date Time Temp Pulse Resp B/P (MAP) Pulse Ox O2 Delivery O2 Flow Rate FiO2 03/13/19 08:14 97 Ventilator 03/13/19 06:00 16 16 104/65 (78) 03/13/19 04:00 98.3 98.3 I & 0 Intake and Output 03/13/19 07:00 Intake Total 5045 ml Output Total 1540 ml Balance 3505 ml Intake IV Total 1406 ml Tube Feeding 2639 ml Blood Product IV Normal Saline Flush 100 ml Other 900 ml Output Urine Total 1540 ml PHYSICAL EXAM Physical Exam GENERAL: Sedated, orally intubated HEENT: orally intubated. NECK: Supple, LUNGS: Clear. HEART: S1 and S2, regular. ABDOMEN: Benign, Obese EXTREMITIES: No edema or cyanosis. SKIN: chronic stasis dermatitis on the lower extremity, No rash NEUROLOGIC: Intubated Ramos + DIAGNOSIS/ASSESSMENT Assessment & Plan OSMAN- Vasomotor , renal function stable Good UOP, UA Ramos sample, unremarkable except RBC's CTA on 03/10 Supportive care, Monitor , Avoid Nephrotoxins Hypokalemia-Normal today Hypernatremia- resolved Acute hypercapnic respiratory - acute lung injury/noncardiogenic pulmonary edema/ ARDS due to vaping vs [id number] right heart failure with worsening hypercapnia. CHF- Per cardiology Morbid Obesity Vaping COMMENT/RELEVANT DATA Meds Current Medications Medications (Trade) Dose Ordered Sig/Stefanie Start Time Stop Time Status Last Admin Dose Admin Albuterol/ Ipratropium (Duoneb) 3 ml RTQID 03/10/19 12:00 03/13/19 08:13 3 ML Amlodipine Besylate (Norvasc) 10 mg DAILY 03/11/19 09:00 03/11/19 12:50 DC 03/11/19 09:37 10 MG Artificial Tears (Artificial Tears) 1 drop PRN Q1HR PRN 03/10/19 07:30 03/12/19 09:34 1 DROP Aspirin (Aspirin Rectal Supp) 300 mg 1X ONCE 03/10/19 00:00 03/10/19 00:01 DC 03/10/19 03:42 300 MG Aspirin (Amanda Aspirin) 325 mg 1X ONCE 03/10/19 10:30 03/10/19 10:31 DC 03/10/19 10:55 325 MG Aspirin (Children'S Aspirin) 81 mg [id number] 03/11/19 08:00 03/13/19 09:05 81 MG Atropine Sulfate (ATROPINE 0.5mg SYRINGE) 0.5 mg PRN Q5MIN PRN 03/12/19 20:30 Bumetanide (Bumex) 1 mg 1X ONCE 03/10/19 00:00 03/10/19 00:01 DC 03/10/19 00:21 1 MG Chlorhexidine Gluconate (Peridex) 15 ml BID 03/10/19 09:00 03/12/19 20:35 15 ML Clonidine HCl (Catapres) 0.1 mg 1X ONCE 03/10/19 01:30 03/10/19 01:34 DC Dexamethasone Sodium Phosphate (Decadron) 10 mg 1X ONCE 03/09/19 22:00 03/09/19 22:01 DC 03/09/19 22:29 10 MG Dexmedetomidine HCl 400 mcg/ Sodium Chloride 100 ml @ 0 mls/hr CONT PRN 03/12/19 20:30 03/13/19 06:02 16.3 MLS/HR Dextrose 250 ml PRN Q15MIN PRN 03/12/19 16:15 Dextrose (Dextrose 50%-Water Syringe) 12.5 gm PRN Q15MIN PRN 03/12/19 16:15 Etomidate (Amidate) 20 mg STK-MED ONCE 03/10/19 05:15 03/10/19 05:16 DC Famotidine (Pepcid Vial) 20 mg BID 03/10/19 09:00 UNV Fentanyl Citrate (Fentanyl 2ml Vial) 50 mcg PRN Q1HR PRN 03/10/19 07:30 Furosemide (Lasix) 40 mg DAILY 03/10/19 11:00 03/11/19 11:24 DC 03/11/19 09:37 40 MG Heparin Sodium (Porcine) (Heparin Sodium) 5,000 unit Q8HRS 03/11/19 22:00 03/13/19 05:55 5,000 UNIT Heparin Sodium/ Dextrose 500 ml @ 0 mls/hr CONT PRN 03/09/19 23:45 03/11/19 16:13 DC 03/10/19 23:34 1,300 MLS/HR Hydralazine HCl (Apresoline Inj) 10 mg PRN Q4HRS PRN 03/11/19 13:00 Hydrochlorothiazide (Hydrodiuril) 25 mg DAILY 03/10/19 09:00 03/10/19 10:04 DC 03/10/19 09:13 25 MG Info (CONTRAST GIVEN -- Rx MONITORING) 1 each PRN DAILY PRN 03/10/19 11:45 03/12/19 11:44 DC Insulin Human Lispro (HumaLOG) 0-9 UNITS Q6HRS 03/12/19 18:00 Iohexol (Omnipaque 350 Mg/ml) 100 ml 1X ONCE 03/10/19 11:45 03/10/19 11:47 DC 03/10/19 14:05 100 ML Levofloxacin/ Dextrose 100 ml @ 100 mls/hr Q24H 03/10/19 09:00 03/13/19 09:05 100 MLS/HR Levofloxacin/ Dextrose (Levaquin Per Pharmacy) 1 each PRN DAILY PRN 03/10/19 08:15 Linezolid/Dextrose 300 ml @ 300 mls/hr Q12HR 03/11/19 21:00 03/13/19 09:05 300 MLS/HR Lisinopril (Prinivil) 5 mg DAILY 03/10/19 09:00 03/10/19 10:04 DC 03/10/19 09:13 5 MG Lorazepam (Ativan Inj) 1 mg PRN Q1HR PRN 03/11/19 11:00 03/12/19 20:19 1 MG Magnesium Sulfate/ Dextrose 100 ml @ 50 mls/hr DAILY 03/11/19 09:00 03/14/19 08:59 03/11/19 09:28 50 MLS/HR Midazolam HCl 100 ml @ 0 mls/hr CONT PRN 03/10/19 07:30 03/12/19 21:13 10 MLS/HR Midazolam HCl (Versed) 5 mg 1X ONCE 03/10/19 01:30 03/10/19 01:34 DC 03/10/19 01:28 5 MG Morphine Sulfate (Morphine Sulfate) 4 mg PRN Q1HR PRN 03/10/19 07:30 Multi-Ingred Cream/Lotion/Oil/ Oint (Artificial Tears Eye Ointment) 1 zuri PRN Q1HR PRN 03/12/19 09:00 Norepinephrine Bitartrate 250 ml @ 27.837 mls/ hr CONT PRN 03/11/19 13:00 03/13/19 04:13 1.392 MLS/HR Perflutren Protein Type A Microsphe (Optison) 0.66 mg 1X ONCE 03/13/19 09:15 03/13/19 09:16 DC 03/13/19 09:40 0.66 MG Piperacillin Sod/ Tazobactam Sod (Zosyn Per Pharmacy) 1 each PRN DAILY PRN 03/10/19 11:45 Piperacillin Sod/ Tazobactam Sod 3.375 gm/Sodium Chloride 50 ml @ 100 mls/hr Q6HRS 03/10/19 12:30 03/13/19 05:55 100 MLS/HR Piperacillin Sod/ Tazobactam Sod 4.5 gm/Sodium Chloride 100 ml @ 200 mls/hr 1X ONCE 03/10/19 00:30 03/10/19 00:59 DC 03/10/19 05:19 200 MLS/HR Potassium Chloride/Water 50 ml @ 50 mls/hr 1X ONCE 03/12/19 10:30 03/12/19 11:31 DC Potassium Phosphate 27.2 mmol/Sodium Chloride 259.0667 ml @ 64.753 m... 1X ONCE 03/11/19 14:00 03/11/19 18:00 DC Propofol 100 ml @ 0 mls/hr CONT PRN 03/10/19 07:30 Rocuronium [place] (Zemuron) 50 mg STK-MED ONCE 03/10/19 05:15 03/10/19 05:15 DC Sodium Chloride 500 ml @ 500 mls/hr 1X PRN PRN 03/12/19 20:30 03/12/19 23:22 500 MLS/HR Vancomycin HCl (Vanco Per Pharmacy) 1 each PRN DAILY PRN 03/10/19 11:45 03/11/19 13:57 DC 03/11/19 09:42 1 EACH Vancomycin HCl (Vancomycin Trough Level) 1 each 1X ONCE 03/12/19 12:30 03/12/19 12:31 Cancel Vancomycin HCl 1.75 gm/Sodium Chloride 500 ml @ 250 mls/hr Q12H 03/11/19 01:00 03/11/19 13:57 DC 03/11/19 12:43 250 MLS/HR Vancomycin HCl 2 gm/Sodium Chloride 500 ml @ 250 mls/hr 1X ONCE 03/10/19 13:00 03/10/19 14:59 DC 03/10/19 12:41 250 MLS/HR Vecuronium [place] (Norcuron Bolus) 10 mg PRN Q1HR PRN 03/13/19 07:30 Lab Laboratory Tests Test 03/12/19 12:34 03/12/19 17:16 03/13/19 01:03 03/13/19 05:50 Glucose (Fingerstick) 101 mg/dL (70-99) 104 mg/dL (70-99) 107 mg/dL (70-99) White Blood Count 9.4 x10^3/uL (4.0-11.0) Red Blood Count 5.54 x10^6/uL (4.30-5.70) Hemoglobin 13.5 g/dL (13.0-17.5) Hematocrit 43.2 % (39.0-53.0) Mean Corpuscular Volume 78 fL (79-100) Mean Corpuscular Hemoglobin 24 pg (25-35) Mean Corpuscular Hemoglobin Concent 31 g/dL (31-37) Red Cell Distribution Width 19.0 % (11.5-14.5) Platelet Count 177 x10^3/uL (140-400) Neutrophils (%) (Auto) 76 % (31-73) Lymphocytes (%) (Auto) 8 % (24-48) Monocytes (%) (Auto) 11 % (0-9) Eosinophils (%) (Auto) 4 % (0-3) Basophils (%) (Auto) 1 % (0-3) Neutrophils # (Auto) 7.2 x10^3/uL (1.8-7.7) Lymphocytes # (Auto) 0.8 x10^3/uL (1.0-4.8) Monocytes # (Auto) 1.0 x10^3/uL (0.0-1.1) Eosinophils # (Auto) 0.4 x10^3/uL (0.0-0.7) Basophils # (Auto) 0.1 x10^3/uL (0.0-0.2) Sodium Level 144 mmol/L (136-145) Potassium Level 4.1 mmol/L (3.5-5.1) Chloride Level 104 mmol/L (98-107) Carbon Dioxide Level 35 mmol/L (21-32) Anion Gap 5 (6-14) Blood Urea Nitrogen 26 mg/dL (8-26) Creatinine 1.4 mg/dL (0.7-1.3) Estimated GFR (Cockcroft-Gault) 65.4 BUN/Creatinine Ratio 19 (6-20) Glucose Level 119 mg/dL (70-99) Calcium Level 8.7 mg/dL (8.5-10.1) Magnesium Level 2.0 mg/dL (1.8-2.4) Total Bilirubin 2.2 mg/dL (0.2-1.0) Aspartate Amino Transf (AST/SGOT) 24 U/L (15-37) Alanine Aminotransferase (ALT/SGPT) 118 U/L (16-63) Alkaline Phosphatase 78 U/L (46-116) Total Protein 6.3 g/dL (6.4-8.2) Albumin 2.5 g/dL (3.4-5.0) Albumin/Globulin Ratio 0.7 (1.0-1.7) Test 03/13/19 05:55 03/13/19 08:20 Glucose (Fingerstick) 108 mg/dL (70-99) O2 Saturation 95 % (92-99) Arterial Blood pH 7.42 (7.35-7.45) Arterial Blood pCO2 at Patient Temp 50 mmHg (35-46) Arterial Blood pO2 at Patient Temp 78 mmHg (75-108) Arterial Blood HCO3 32 mmol/L (21-28) Arterial Blood Base Excess 6 mmol/L (-3-3) FiO2 100 Results All relevant outside records, renal labs, imaging studies, telemetry/EKG's were reviewed. SARAH GAYTAN MD Mar 13, 2019 10:09
--- NOTE | 2019-03-13 10:22 | PDOC ---
PULMONARY PROGRESS NOTES Subjective remains intubated, sedated had low sats last night on 100% FIO2, 12 of PEEP Vitals Vital Signs Date Time Temp Pulse Resp B/P (MAP) Pulse Ox O2 Delivery O2 Flow Rate FiO2 03/13/19 08:14 97 Ventilator 03/13/19 06:00 16 16 104/65 (78) 03/13/19 04:00 98.3 98.3 Lungs: Other (decrease bs) Cardiovascular: S1, S2 Abdomen: Soft, Other (obese) Extremities: Other (trace edema) Labs Laboratory Tests Test 03/11/19 12:00 03/11/19 12:11 03/11/19 15:20 03/11/19 18:12 Heparin Anti-Xa Act, Unfractionated 0.29 IU/mL (0.30-0.70) Glucose (Fingerstick) 105 mg/dL (70-99) 113 mg/dL (70-99) Potassium Level 3.2 mmol/L (3.5-5.1) Phosphorus Level 3.7 mg/dL (2.6-4.7) Magnesium Level 2.2 mg/dL (1.8-2.4) Test 03/12/19 01:07 03/12/19 06:00 03/12/19 08:00 03/12/19 12:34 Glucose (Fingerstick) 99 mg/dL (70-99) 81 mg/dL (70-99) 101 mg/dL (70-99) White Blood Count 8.2 x10^3/uL (4.0-11.0) Red Blood Count 5.42 x10^6/uL (4.30-5.70) Hemoglobin 13.1 g/dL (13.0-17.5) Hematocrit 42.0 % (39.0-53.0) Mean Corpuscular Volume 78 fL (79-100) Mean Corpuscular Hemoglobin 24 pg (25-35) Mean Corpuscular Hemoglobin Concent 31 g/dL (31-37) Red Cell Distribution Width 18.9 % (11.5-14.5) Platelet Count 184 x10^3/uL (140-400) Neutrophils (%) (Auto) 78 % (31-73) Lymphocytes (%) (Auto) 9 % (24-48) Monocytes (%) (Auto) 10 % (0-9) Eosinophils (%) (Auto) 2 % (0-3) Basophils (%) (Auto) 1 % (0-3) Neutrophils # (Auto) 6.4 x10^3/uL (1.8-7.7) Lymphocytes # (Auto) 0.7 x10^3/uL (1.0-4.8) Monocytes # (Auto) 0.8 x10^3/uL (0.0-1.1) Eosinophils # (Auto) 0.2 x10^3/uL (0.0-0.7) Basophils # (Auto) 0.1 x10^3/uL (0.0-0.2) Sodium Level 148 mmol/L (136-145) Potassium Level 3.4 mmol/L (3.5-5.1) Chloride Level 107 mmol/L (98-107) Carbon Dioxide Level 37 mmol/L (21-32) Anion Gap 4 (6-14) Blood Urea Nitrogen 29 mg/dL (8-26) Creatinine 1.5 mg/dL (0.7-1.3) Estimated GFR (Cockcroft-Gault) 60.4 BUN/Creatinine Ratio 19 (6-20) Glucose Level 96 mg/dL (70-99) Calcium Level 8.3 mg/dL (8.5-10.1) Total Bilirubin 2.0 mg/dL (0.2-1.0) Aspartate Amino Transf (AST/SGOT) 31 U/L (15-37) Alanine Aminotransferase (ALT/SGPT) 153 U/L (16-63) Alkaline Phosphatase 77 U/L (46-116) Total Protein 5.7 g/dL (6.4-8.2) Albumin 2.4 g/dL (3.4-5.0) Albumin/Globulin Ratio 0.7 (1.0-1.7) O2 Saturation 95 % (92-99) Arterial Blood pH 7.47 (7.35-7.45) Arterial Blood pCO2 at Patient Temp 48 mmHg (35-46) Arterial Blood pO2 at Patient Temp 75 mmHg (75-108) Arterial Blood HCO3 34 mmol/L (21-28) Arterial Blood Base Excess 9 mmol/L (-3-3) FiO2 90 Test 03/12/19 17:16 03/13/19 01:03 03/13/19 05:50 03/13/19 05:55 Glucose (Fingerstick) 104 mg/dL (70-99) 107 mg/dL (70-99) 108 mg/dL (70-99) White Blood Count 9.4 x10^3/uL (4.0-11.0) Red Blood Count 5.54 x10^6/uL (4.30-5.70) Hemoglobin 13.5 g/dL (13.0-17.5) Hematocrit 43.2 % (39.0-53.0) Mean Corpuscular Volume 78 fL (79-100) Mean Corpuscular Hemoglobin 24 pg (25-35) Mean Corpuscular Hemoglobin Concent 31 g/dL (31-37) Red Cell Distribution Width 19.0 % (11.5-14.5) Platelet Count 177 x10^3/uL (140-400) Neutrophils (%) (Auto) 76 % (31-73) Lymphocytes (%) (Auto) 8 % (24-48) Monocytes (%) (Auto) 11 % (0-9) Eosinophils (%) (Auto) 4 % (0-3) Basophils (%) (Auto) 1 % (0-3) Neutrophils # (Auto) 7.2 x10^3/uL (1.8-7.7) Lymphocytes # (Auto) 0.8 x10^3/uL (1.0-4.8) Monocytes # (Auto) 1.0 x10^3/uL (0.0-1.1) Eosinophils # (Auto) 0.4 x10^3/uL (0.0-0.7) Basophils # (Auto) 0.1 x10^3/uL (0.0-0.2) Sodium Level 144 mmol/L (136-145) Potassium Level 4.1 mmol/L (3.5-5.1) Chloride Level 104 mmol/L (98-107) Carbon Dioxide Level 35 mmol/L (21-32) Anion Gap 5 (6-14) Blood Urea Nitrogen 26 mg/dL (8-26) Creatinine 1.4 mg/dL (0.7-1.3) Estimated GFR (Cockcroft-Gault) 65.4 BUN/Creatinine Ratio 19 (6-20) Glucose Level 119 mg/dL (70-99) Calcium Level 8.7 mg/dL (8.5-10.1) Magnesium Level 2.0 mg/dL (1.8-2.4) Total Bilirubin 2.2 mg/dL (0.2-1.0) Aspartate Amino Transf (AST/SGOT) 24 U/L (15-37) Alanine Aminotransferase (ALT/SGPT) 118 U/L (16-63) Alkaline Phosphatase 78 U/L (46-116) Total Protein 6.3 g/dL (6.4-8.2) Albumin 2.5 g/dL (3.4-5.0) Albumin/Globulin Ratio 0.7 (1.0-1.7) Test 03/13/19 08:20 O2 Saturation 95 % (92-99) Arterial Blood pH 7.42 (7.35-7.45) Arterial Blood pCO2 at Patient Temp 50 mmHg (35-46) Arterial Blood pO2 at Patient Temp 78 mmHg (75-108) Arterial Blood HCO3 32 mmol/L (21-28) Arterial Blood Base Excess 6 mmol/L (-3-3) FiO2 100 Laboratory Tests Test 03/12/19 12:34 03/12/19 17:16 03/13/19 01:03 03/13/19 05:50 Glucose (Fingerstick) 101 mg/dL (70-99) 104 mg/dL (70-99) 107 mg/dL (70-99) White Blood Count 9.4 x10^3/uL (4.0-11.0) Red Blood Count 5.54 x10^6/uL (4.30-5.70) Hemoglobin 13.5 g/dL (13.0-17.5) Hematocrit 43.2 % (39.0-53.0) Mean Corpuscular Volume 78 fL (79-100) Mean Corpuscular Hemoglobin 24 pg (25-35) Mean Corpuscular Hemoglobin Concent 31 g/dL (31-37) Red Cell Distribution Width 19.0 % (11.5-14.5) Platelet Count 177 x10^3/uL (140-400) Neutrophils (%) (Auto) 76 % (31-73) Lymphocytes (%) (Auto) 8 % (24-48) Monocytes (%) (Auto) 11 % (0-9) Eosinophils (%) (Auto) 4 % (0-3) Basophils (%) (Auto) 1 % (0-3) Neutrophils # (Auto) 7.2 x10^3/uL (1.8-7.7) Lymphocytes # (Auto) 0.8 x10^3/uL (1.0-4.8) Monocytes # (Auto) 1.0 x10^3/uL (0.0-1.1) Eosinophils # (Auto) 0.4 x10^3/uL (0.0-0.7) Basophils # (Auto) 0.1 x10^3/uL (0.0-0.2) Sodium Level 144 mmol/L (136-145) Potassium Level 4.1 mmol/L (3.5-5.1) Chloride Level 104 mmol/L (98-107) Carbon Dioxide Level 35 mmol/L (21-32) Anion Gap 5 (6-14) Blood Urea Nitrogen 26 mg/dL (8-26) Creatinine 1.4 mg/dL (0.7-1.3) Estimated GFR (Cockcroft-Gault) 65.4 BUN/Creatinine Ratio 19 (6-20) Glucose Level 119 mg/dL (70-99) Calcium Level 8.7 mg/dL (8.5-10.1) Magnesium Level 2.0 mg/dL (1.8-2.4) Total Bilirubin 2.2 mg/dL (0.2-1.0) Aspartate Amino Transf (AST/SGOT) 24 U/L (15-37) Alanine Aminotransferase (ALT/SGPT) 118 U/L (16-63) Alkaline Phosphatase 78 U/L (46-116) Total Protein 6.3 g/dL (6.4-8.2) Albumin 2.5 g/dL (3.4-5.0) Albumin/Globulin Ratio 0.7 (1.0-1.7) Test 03/13/19 05:55 03/13/19 08:20 Glucose (Fingerstick) 108 mg/dL (70-99) O2 Saturation 95 % (92-99) Arterial Blood pH 7.42 (7.35-7.45) Arterial Blood pCO2 at Patient Temp 50 mmHg (35-46) Arterial Blood pO2 at Patient Temp 78 mmHg (75-108) Arterial Blood HCO3 32 mmol/L (21-28) Arterial Blood Base Excess 6 mmol/L (-3-3) FiO2 100 Medications Active Scripts Medications Dose Route/Sig Max Daily Dose Days Date Category Hydrochlorothiazide Tablet (Hydrochlorothiazide) 25 Mg Tablet 25 Mg PO DAILY 03/10/19 Reported Norvasc (Amlodipine Besylate) 5 Mg Tablet 1 Tab PO DAILY 01/12/19 Rx Lisinopril 5 Mg Tablet 1 Tab PO DAILY 01/12/19 Rx Comments cxr 03/13 bilateral infiltrate, right worse today Impression . 1. Acute hypercapnic respiratory failure secondary to multifactorial etiologies. Likely related to acute lung injury/noncardiogenic pulmonary edema/ ARDS due to vaping. less likely [id number] right heart failure . Needing max amount of oxygen and high PEEP c/w shunt physiology due to ARDS Likelihood of pulmonary embolism is less, CTA non diagnostic for PE. Dopplers ordered today 2. Abnormal chest x-ray with bilateral lung infiltrates. noncardiogenic pulmonary edema. CT chest reviewed. cxr has worsening 3. History of morbid obesity with Pickwickian physiology with chronic hypercapnia and chronic hypoxic respiratory failure, history of obstructive sleep apnea as well, but noncompliant to CPAP. 4. Acute kidney injury. stable 5. Increased troponin. Possible non-ST myocardial infarction. 6. Previous echo with normal ejection fraction. PA 55 likely secondary pulmonary HTN 7. History of tobacco use. Plan . 1. Continue with present assist control mode and high PEEP of 12, FIO2 100%. make necessary adjustment based on followup ABGs. 2. CTA chest has been reviewed. 3. No acute bleed on CT head. 4. BS antibiotic coverage to cover for gram-negative and gram-positive pneumonia. 5. Monitor fever and white cell count. 6. Continue bronchodilators. 7. Heparin for DVT prophylaxis 8. P.r.n. diuresis.Need to watch BP closely 9. Discussed with brother 9/3, discussed with RN and RT. We will follow along with you. 10. Condition guarded cct 30 min MARIO ALLEN MD Mar 13, 2019 10:22
[2019-03-13 10:28] LABS: MYCOPLASMA PATIENT NEGATIVE (NEGATIVE)
--- NOTE | 2019-03-13 10:29 | RAD ---
Single view of the chest. 03/13/2019 5:00 AM Indication: Respiratory failure Comparison: Chest radiograph, yesterday Findings: Stable support lines and tubes including endotracheal tube, enteric tube, and right internal jugular central line. There is a mild increase in right pleural effusion some of which tracks in the minor fissure. Patchy bilateral infiltrates again noted, right greater than left, also slightly increased in the interim since comparison study. No pneumothorax is seen. Heart size appears mildly enlarged, but similar to comparison study. Bony thorax is grossly unchanged. IMPRESSION: 1. Stable support lines and tubes 2. Some increase in small right pleural effusion 3. Mild increase in bilateral patchy infiltrates Electronically signed by: Nikita Vernon MD (03/13/2019 10:27 AM) [id number]
[2019-03-13] MEDS ORDERED: FUROSEMIDE 40 MG/4 ML VIAL. IVP ONE (10:30)
[2019-03-13 10:51] LABS: AMPHETAMINE/METHAMPHETAMINE NEG (NEG); BARBITURATES NEG (NEG); BENZODIAZEPINES POS (NEG); CANNABINOIDS NEG (NEG); COCAINE NEG (NEG); METHADONE NEG (NEG); OPIATES NEG (NEG); PHENCYCLIDINE NEG (NEG)
--- NOTE | 2019-03-13 11:16 | CARD ---
MR#: [id number] Date of Study: 03/13/2019 Ordering Physician: SHERI BUSTILLO, Referring Physician: SHERI BUSTILLO, Tech: Calli Rubi [facility] APPROVED REPORT EXAM: LIMITED Two-dimensional and M-mode echocardiogram. Other Information Quality : Technically LimitedHR: 70bpm Rhythm : NSRTechnically limited study due to body habitus. INDICATION LV Function:Systolic Echo Enhancing Agent Indication: Endocardial border delineation Agent/Amount Used: Optison 1mL 2D DIMENSIONS RVDd4.4 (2.9-3.5cm)Left Atrium(2D)3.6 (1.6-4.0cm) IVSd1.2 (0.7-1.1cm)Aortic Root(2D)3.7 (2.0-3.7cm) LVDd6.7 (3.9-5.9cm)PWd1.4 (0.7-1.1cm) LVDs4.8 (2.5-4.0cm)FS (%) 28.9 % SV124.9 mlLVEF(%)54.3 (>50%) Tricuspid Valve TR P. [id number] [id number] TR Peak Gr.[id number] LEFT VENTRICLE The Left Ventricle is moderately dilated. There is mild concentric left ventricular hypertrophy. The systolic function is mildly impaired. The Ejection Fraction is 50%. There is mild global hypokinesis. Septal motion suggestive of conduction defect. RIGHT VENTRICLE The right ventricle is moderately to severely dilated. There is normal right ventricular wall thickne ss. RV Systolic function is mildly to moderately reduced. ATRIA The left atrium size is normal. The right atrium is moderately dilated. The interatrial septum is int act with no evidence for an atrial septal defect or patent foramen ovale as noted on 2-D or Doppler i maging. TRICUSPID VALVE The tricuspid valve is normal in structure and function. Doppler and Color Flow revealed mild tricusp id regurgitation. There is moderate pulmonary hypertension. The PA pressure was estimated at 55 mmHg. There is no tricuspid valve prolapse or vegetation. There is no tricuspid valve stenosis. GREAT VESSELS The aortic root is normal in size. The ascending aorta is normal in size. PERICARDIAL EFFUSION There is no evidence of significant pericardial effusion. Critical Notification Critical Value: No <Conclusion> The systolic function is mildly impaired. The Ejection Fraction is 50%. There is mild global hypokinesis. Septal motion suggestive of conduction defect. The right ventricle is moderately to severely dilated. RV Systolic function is mildly to moderately reduced. Doppler and Color Flow revealed mild tricuspid regurgitation. There is moderate pulmonary hypertensio n. The PA pressure was estimated at 55 mmHg. Limited echo only. Signed by : Sheri Bustillo, Electronically Approved : 03/13/2019 11:16:07
[2019-03-13] MEDS: MIDAZOLAM 100mg/100ml NS BAG 100 ML IV PRN (11:20)
[2019-03-13] MEDS: POLYVINYL ALCOHOL 1.4% OPHTH SOLUTION 15ML BOTTLE. OU PRN (13:32)
--- NOTE | 2019-03-13 14:08 | PDOC2 ---
PALLIATIVE CARE Palliative Care Note Palliative Care Patient remains on Vent. Oxygen needs increasing. Now on 100% with Peep of 12 Sedated, Pressors. Tolerating tube feedings now. Spoke with Gaby/sister. She is aware of the critical illness. She and the rest of the family can meet on Saturday at 1330. Stated; "I know he wouldn't want to be like this" FRANCIS DELATORRE Mar 13, 2019 14:08
[2019-03-13] MEDS ORDERED: fentaNYL STANDARD PCA 600 MCG/30 ML PCA.SYRING IV ONE (17:00)
--- NOTE | 2019-03-13 19:30 | RAD ---
Examination: Bilateral Lower Extremity Venous Doppler Ultrasound History: Respiratory failure Comparison: None Procedure: Otero scale, color flow 2D and spectal waveform analysis images are obtained with and without compression in the area of the common femoral vein, superficial femoral vein - femoral vein junction, main femoral vein (superficial femoral vein) and popliteal vein. Veins of the proximal calf are also imaged. Findings: There is normal duplex flow, color flow and compressibility of all visualized vein segments. No evidence of deep venous thrombus is present. Examination limited due to patient body habitus. The left calf veins are not utilized. Impression: No evidence of DVT in the visualized bilateral lower extremity venous system. Electronically signed by: Keagan Stubbs MD (03/13/2019 5:09 PM) [place] [id number]
[2019-03-14] VITALS (24 sets, daily range): BP systolic 87–140; BP diastolic 53–90
[2019-03-14] MEDS: DEXMEDETOMIDINE 400 MCG in IV NORMAL SALINE 100ML 96 ML IV PRN ×6 (00:11→22:47)
[2019-03-14] MEDS: PIPERACILLIN/TAZOBACTAM 3.375 GM in IV NORMAL SALINE 50ML 50 ML IV SCH ×5 (00:11→23:35)
[2019-03-14] MEDS: MIDAZOLAM 100mg/100ml NS BAG 100 ML IV PRN ×2 (05:22→18:33)
[2019-03-14] MEDS: HEPARIN for SUB-Q USE 5,000 UNIT/ML VIAL. SQ SCH ×3 (05:23→21:16)
[2019-03-14] MEDS: INSULIN LISPRO 300 UNITS/3 ML VIAL. SQ SCH ×5 (06:00→23:35)
--- NOTE | 2019-03-14 06:22 | RAD ---
AP chest. HISTORY: Respiratory failure AP view was taken of the chest. Central line and endotracheal tube are unchanged. There are bilateral areas of infiltrate with little change. Heart is enlarged. Pleural effusions are probable. IMPRESSION: 1. Little change from the prior study. Electronically signed by: Carlos Senior MD (03/14/2019 6:20 AM) [id number]
--- NOTE | 2019-03-14 06:24 | PDOC ---
PULMONARY PROGRESS NOTES Subjective on vent, sedated on fentanyl, precedex, versed, small ett secretion on 100% FIO2, 12 of PEEP Vitals Vital Signs Date Time Temp Pulse Resp B/P (MAP) Pulse Ox O2 Delivery O2 Flow Rate FiO2 03/14/19 06:16 16 94 Ventilator 03/14/19 06:00 79 111/70 (84) 03/14/19 04:00 98.8 98.8 03/13/19 17:59 15.0 Comments ros as mentioned as mentioned as above other sys otherwise neg on vent sedated HEENT: Other Lungs: Other (decrease bs) Cardiovascular: S1, S2 Abdomen: Soft, Non-tender, Other (obese) Extremities: Other (trace edema) Skin: Warm Labs Laboratory Tests Test 03/12/19 08:00 03/12/19 12:34 03/12/19 17:16 03/13/19 01:03 O2 Saturation 95 % (92-99) Arterial Blood pH 7.47 (7.35-7.45) Arterial Blood pCO2 at Patient Temp 48 mmHg (35-46) Arterial Blood pO2 at Patient Temp 75 mmHg (75-108) Arterial Blood HCO3 34 mmol/L (21-28) Arterial Blood Base Excess 9 mmol/L (-3-3) FiO2 90 Glucose (Fingerstick) 101 mg/dL (70-99) 104 mg/dL (70-99) 107 mg/dL (70-99) Test 03/13/19 05:50 03/13/19 05:55 03/13/19 08:20 03/13/19 10:30 White Blood Count 9.4 x10^3/uL (4.0-11.0) Red Blood Count 5.54 x10^6/uL (4.30-5.70) Hemoglobin 13.5 g/dL (13.0-17.5) Hematocrit 43.2 % (39.0-53.0) Mean Corpuscular Volume 78 fL (79-100) Mean Corpuscular Hemoglobin 24 pg (25-35) Mean Corpuscular Hemoglobin Concent 31 g/dL (31-37) Red Cell Distribution Width 19.0 % (11.5-14.5) Platelet Count 177 x10^3/uL (140-400) Neutrophils (%) (Auto) 76 % (31-73) Lymphocytes (%) (Auto) 8 % (24-48) Monocytes (%) (Auto) 11 % (0-9) Eosinophils (%) (Auto) 4 % (0-3) Basophils (%) (Auto) 1 % (0-3) Neutrophils # (Auto) 7.2 x10^3/uL (1.8-7.7) Lymphocytes # (Auto) 0.8 x10^3/uL (1.0-4.8) Monocytes # (Auto) 1.0 x10^3/uL (0.0-1.1) Eosinophils # (Auto) 0.4 x10^3/uL (0.0-0.7) Basophils # (Auto) 0.1 x10^3/uL (0.0-0.2) Sodium Level 144 mmol/L (136-145) Potassium Level 4.1 mmol/L (3.5-5.1) Chloride Level 104 mmol/L (98-107) Carbon Dioxide Level 35 mmol/L (21-32) Anion Gap 5 (6-14) Blood Urea Nitrogen 26 mg/dL (8-26) Creatinine 1.4 mg/dL (0.7-1.3) Estimated GFR (Cockcroft-Gault) 65.4 BUN/Creatinine Ratio 19 (6-20) Glucose Level 119 mg/dL (70-99) Calcium Level 8.7 mg/dL (8.5-10.1) Magnesium Level 2.0 mg/dL (1.8-2.4) Total Bilirubin 2.2 mg/dL (0.2-1.0) Aspartate Amino Transf (AST/SGOT) 24 U/L (15-37) Alanine Aminotransferase (ALT/SGPT) 118 U/L (16-63) Alkaline Phosphatase 78 U/L (46-116) Total Protein 6.3 g/dL (6.4-8.2) Albumin 2.5 g/dL (3.4-5.0) Albumin/Globulin Ratio 0.7 (1.0-1.7) Mycoplasma Serology (LAB) Negative (NEGATIVE) Glucose (Fingerstick) 108 mg/dL (70-99) O2 Saturation 95 % (92-99) Arterial Blood pH 7.42 (7.35-7.45) Arterial Blood pCO2 at Patient Temp 50 mmHg (35-46) Arterial Blood pO2 at Patient Temp 78 mmHg (75-108) Arterial Blood HCO3 32 mmol/L (21-28) Arterial Blood Base Excess 6 mmol/L (-3-3) FiO2 100 Urine Opiates Screen Neg (NEG) Urine Methadone Screen Neg (NEG) Urine Barbiturates Neg (NEG) Urine Phencyclidine Screen Neg (NEG) Urine Amphetamine/Methamphetamine Neg (NEG) Urine Benzodiazepines Screen Pos (NEG) Urine Cocaine Screen Neg (NEG) Urine Cannabinoids Screen Neg (NEG) Urine Ethyl Alcohol Neg (NEG) Test 03/13/19 13:29 03/13/19 18:06 03/14/19 00:21 03/14/19 06:04 Glucose (Fingerstick) 108 mg/dL (70-99) 133 mg/dL (70-99) 114 mg/dL (70-99) 83 mg/dL (70-99) Laboratory Tests Test 03/13/19 08:20 03/13/19 10:30 03/13/19 13:29 03/13/19 18:06 O2 Saturation 95 % (92-99) Arterial Blood pH 7.42 (7.35-7.45) Arterial Blood pCO2 at Patient Temp 50 mmHg (35-46) Arterial Blood pO2 at Patient Temp 78 mmHg (75-108) Arterial Blood HCO3 32 mmol/L (21-28) Arterial Blood Base Excess 6 mmol/L (-3-3) FiO2 100 Urine Opiates Screen Neg (NEG) Urine Methadone Screen Neg (NEG) Urine Barbiturates Neg (NEG) Urine Phencyclidine Screen Neg (NEG) Urine Amphetamine/Methamphetamine Neg (NEG) Urine Benzodiazepines Screen Pos (NEG) Urine Cocaine Screen Neg (NEG) Urine Cannabinoids Screen Neg (NEG) Urine Ethyl Alcohol Neg (NEG) Glucose (Fingerstick) 108 mg/dL (70-99) 133 mg/dL (70-99) Test 03/14/19 00:21 03/14/19 06:04 Glucose (Fingerstick) 114 mg/dL (70-99) 83 mg/dL (70-99) Medications Active Scripts Medications Dose Route/Sig Max Daily Dose Days Date Category Hydrochlorothiazide Tablet (Hydrochlorothiazide) 25 Mg Tablet 25 Mg PO DAILY 03/10/19 Reported Norvasc (Amlodipine Besylate) 5 Mg Tablet 1 Tab PO DAILY 01/12/19 Rx Lisinopril 5 Mg Tablet 1 Tab PO DAILY 01/12/19 Rx Comments cxr 03/13 bilateral infiltrate, atelectasis ett ok Impression . 1. Acute hypercapnic respiratory failure secondary to multifactorial etiologies. Likely related to acute lung injury/noncardiogenic pulmonary edema/ ARDS due to vaping. less likely [id number] right heart failure . Needing max amount of oxygen and high PEEP c/w shunt physiology due to ARDS Likelihood of pulmonary embolism is less, CTA non diagnostic for PE. Dopplers ordered today 2. Abnormal chest x-ray with bilateral lung infiltrates. noncardiogenic pulmonary edema. CT chest reviewed. 3. History of morbid obesity with Pickwickian physiology with chronic hypercapnia and chronic hypoxic respiratory failure, history of obstructive sleep apnea as well, but noncompliant to CPAP. 4. Acute kidney injury. stable 5. Increased troponin. Possible non-ST myocardial infarction. 6. Previous echo with normal ejection fraction. PA 55 likely secondary pulmonary HTN 7. History of tobacco use. Plan . 1. Continue with present assist control mode and high PEEP of 12, FIO2 100%. titrate fi02 to keep sat 93%, make necessary adjustment based on followup ABGs. 2. CTA chest has been reviewed. 3. No acute bleed on CT head. 4. BS antibiotic coverage to cover for gram-negative and gram-positive pneumonia. fu cxs 5. Monitor fever and white cell count. 6. Continue bronchodilators. 7. Heparin for DVT prophylaxis 8. P.r.n. diuresis.Need to watch BP closely 9. dr mcrae Discussed with brother /3, discussed with RN and RT. We will follow along with you. 10. Condition guarded SAFIA WISEMAN MD Mar 14, 2019 06:24
[2019-03-14 07:03] LABS: CREATININE 1.5 mg/dL (0.7-1.3); GFR 60.4
--- NOTE | 2019-03-14 07:25 | PDOC ---
PROGRESS NOTES History of Present Illness History of Present Illness VTE Prophylaxis Ordered VTE Prophylaxis Devices: Yes VTE Pharmacological Prophylaxi: Yes Assessment/Plan Assessment/Plan Acute mixed hypoxic, hypercapnic respiratory failure-CO2 was 127 with a pH of 7.1 on arrival Morbid obesity BMI 42 Severe COPD exacerbation, COPD or on 2-3 L nasal cannula-home dependent 02 History of CHF and diabetes mellitus per documentation SIRS POA, no consulted process on chest x-ray Troponin elevation in the background of the above medical illnesses Mild hyponatremia 134, reactive leukocytosis AK I VMN creatinine 1.2 Hypertension POA-blood pressure 160s systolic POSSIBLE UTI CTA CHEST Examination is nondiagnostic for pulmonary embolism as there is not enough contrast within the pulmonary artery and its branches. Moderate bibasilar lung consolidation disease with air bronchograms likely pneumonia or atelectasis with small bilateral pleural effusions. Aneurysmal change of the ascending aorta Mediastinal and hilar contours are grossly stable. Bilateral airspace opacities have improved with improved aeration particularly in the left midlung. Small bilateral pleural effusions. No definite pneumothorax. 03/12 Plan ICU Bed, vent PEEP 9.1 Needing max amount of oxygen and high PEEP c/w shunt physiology due to ARDS Pulmonary FOLLOWING consult cardiology PPI DVT prophylaxis Start sliding scale insulin Monitor labs heparin drip by cardiology replace lyrukhsana, per protocol d/w RN BY PHONE URINE CULTURE id following blood culture sputum culture procalcitonin cont zyvox zosyn and levaquin overall prognosis poor, consult palliative care for goals of treatment FAMILY CALLED CONT FULL CODE FOR NOW cc 32 min Vitals Vitals Vital Signs Date Time Temp Pulse Resp B/P (MAP) Pulse Ox O2 Delivery O2 Flow Rate FiO2 03/14/19 06:16 16 94 Ventilator 03/14/19 06:00 79 111/70 (84) 03/14/19 04:00 98.8 98.8 03/13/19 17:59 15.0 Physical Exam Physical Exam GENERAL: Sedated, orally intubated gentleman, not in any distress. VITAL SIGNS: Stable, afebrile. HEENT: NAD. Both pupils are round and reacting. Mouth cannot be much visualized since orally intubated. NECK: Supple, no JVP, no lymphadenopathy. LUNGS: Clear. HEART: S1 and S2, regular. ABDOMEN: Benign. EXTREMITIES: No edema or cyanosis. SKIN: Unremarkable other than chronic stasis dermatitis on the lower extremity. NEUROLOGIC: The patient had been moving all the extremities before intubation and sedation. General: No acute distress, Other (short neck , Mallampati 4 ON VENT) Heart: Regular rate (SR), Other (distante heart sounds) Lungs: Other (decrease bs) Abdomen: Normal bowel sounds, Soft, No tenderness, No hepatosplenomegaly, No masses Extremities: No clubbing, No cyanosis, No edema, Normal pulses, No te nderness/swelling Skin: No rashes, No breakdown, No significant lesion Labs LABS Laboratory Tests Test 03/13/19 08:20 03/13/19 10:30 03/13/19 13:29 03/13/19 18:06 O2 Saturation 95 % (92-99) Arterial Blood pH 7.42 (7.35-7.45) Arterial Blood pCO2 at Patient Temp 50 mmHg (35-46) Arterial Blood pO2 at Patient Temp 78 mmHg (75-108) Arterial Blood HCO3 32 mmol/L (21-28) Arterial Blood Base Excess 6 mmol/L (-3-3) FiO2 100 Urine Opiates Screen Neg (NEG) Urine Methadone Screen Neg (NEG) Urine Barbiturates Neg (NEG) Urine Phencyclidine Screen Neg (NEG) Urine Amphetamine/Methamphetamine Neg (NEG) Urine Benzodiazepines Screen Pos (NEG) Urine Cocaine Screen Neg (NEG) Urine Cannabinoids Screen Neg (NEG) Urine Ethyl Alcohol Neg (NEG) Glucose (Fingerstick) 108 mg/dL (70-99) 133 mg/dL (70-99) Test 03/14/19 00:21 03/14/19 06:04 03/14/19 06:25 Glucose (Fingerstick) 114 mg/dL (70-99) 83 mg/dL (70-99) Creatinine 1.5 mg/dL (0.7-1.3) Estimated GFR (Cockcroft-Gault) 60.4 Assessment and Plan Assessmemt and Plan Problems Medical Problems: (1) CHF exacerbation Status: Acute (2) COPD exacerbation Status: Acute (3) Hypoxia Status: Acute (4) NSTEMI (non-ST elevated myocardial infarction) Status: Acute (5) Respiratory failure Status: Acute Comment Review of Relevant I have reviewed the following items peter (where applicable) has been applied. Labs Laboratory Tests Test 03/12/19 08:00 03/12/19 12:34 03/12/19 17:16 03/13/19 01:03 O2 Saturation 95 % (92-99) Arterial Blood pH 7.47 (7.35-7.45) Arterial Blood pCO2 at Patient Temp 48 mmHg (35-46) Arterial Blood pO2 at Patient Temp 75 mmHg (75-108) Arterial Blood HCO3 34 mmol/L (21-28) Arterial Blood Base Excess 9 mmol/L (-3-3) FiO2 90 Glucose (Fingerstick) 101 mg/dL (70-99) 104 mg/dL (70-99) 107 mg/dL (70-99) Test 03/13/19 05:50 03/13/19 05:55 03/13/19 08:20 03/13/19 10:30 White Blood Count 9.4 x10^3/uL (4.0-11.0) Red Blood Count 5.54 x10^6/uL (4.30-5.70) Hemoglobin 13.5 g/dL (13.0-17.5) Hematocrit 43.2 % (39.0-53.0) Mean Corpuscular Volume 78 fL (79-100) Mean Corpuscular Hemoglobin 24 pg (25-35) Mean Corpuscular Hemoglobin Concent 31 g/dL (31-37) Red Cell Distribution Width 19.0 % (11.5-14.5) Platelet Count 177 x10^3/uL (140-400) Neutrophils (%) (Auto) 76 % (31-73) Lymphocytes (%) (Auto) 8 % (24-48) Monocytes (%) (Auto) 11 % (0-9) Eosinophils (%) (Auto) 4 % (0-3) Basophils (%) (Auto) 1 % (0-3) Neutrophils # (Auto) 7.2 x10^3/uL (1.8-7.7) Lymphocytes # (Auto) 0.8 x10^3/uL (1.0-4.8) Monocytes # (Auto) 1.0 x10^3/uL (0.0-1.1) Eosinophils # (Auto) 0.4 x10^3/uL (0.0-0.7) Basophils # (Auto) 0.1 x10^3/uL (0.0-0.2) Sodium Level 144 mmol/L (136-145) Potassium Level 4.1 mmol/L (3.5-5.1) Chloride Level 104 mmol/L (98-107) Carbon Dioxide Level 35 mmol/L (21-32) Anion Gap 5 (6-14) Blood Urea Nitrogen 26 mg/dL (8-26) Creatinine 1.4 mg/dL (0.7-1.3) Estimated GFR (Cockcroft-Gault) 65.4 BUN/Creatinine Ratio 19 (6-20) Glucose Level 119 mg/dL (70-99) Calcium Level 8.7 mg/dL (8.5-10.1) Magnesium Level 2.0 mg/dL (1.8-2.4) Total Bilirubin 2.2 mg/dL (0.2-1.0) Aspartate Amino Transf (AST/SGOT) 24 U/L (15-37) Alanine Aminotransferase (ALT/SGPT) 118 U/L (16-63) Alkaline Phosphatase 78 U/L (46-116) Total Protein 6.3 g/dL (6.4-8.2) Albumin 2.5 g/dL (3.4-5.0) Albumin/Globulin Ratio 0.7 (1.0-1.7) Mycoplasma Serology (LAB) Negative (NEGATIVE) Glucose (Fingerstick) 108 mg/dL (70-99) O2 Saturation 95 % (92-99) Arterial Blood pH 7.42 (7.35-7.45) Arterial Blood pCO2 at Patient Temp 50 mmHg (35-46) Arterial Blood pO2 at Patient Temp 78 mmHg (75-108) Arterial Blood HCO3 32 mmol/L (21-28) Arterial Blood Base Excess 6 mmol/L (-3-3) FiO2 100 Urine Opiates Screen Neg (NEG) Urine Methadone Screen Neg (NEG) Urine Barbiturates Neg (NEG) Urine Phencyclidine Screen Neg (NEG) Urine Amphetamine/Methamphetamine Neg (NEG) Urine Benzodiazepines Screen Pos (NEG) Urine Cocaine Screen Neg (NEG) Urine Cannabinoids Screen Neg (NEG) Urine Ethyl Alcohol Neg (NEG) Test 03/13/19 13:29 03/13/19 18:06 03/14/19 00:21 03/14/19 06:04 Glucose (Fingerstick) 108 mg/dL (70-99) 133 mg/dL (70-99) 114 mg/dL (70-99) 83 mg/dL (70-99) Test 03/14/19 06:25 Creatinine 1.5 mg/dL (0.7-1.3) Estimated GFR (Cockcroft-Gault) 60.4 Laboratory Tests Test 03/13/19 08:20 03/13/19 10:30 03/13/19 13:29 03/13/19 18:06 O2 Saturation 95 % (92-99) Arterial Blood pH 7.42 (7.35-7.45) Arterial Blood pCO2 at Patient Temp 50 mmHg (35-46) Arterial Blood pO2 at Patient Temp 78 mmHg (75-108) Arterial Blood HCO3 32 mmol/L (21-28) Arterial Blood Base Excess 6 mmol/L (-3-3) FiO2 100 Urine Opiates Screen Neg (NEG) Urine Methadone Screen Neg (NEG) Urine Barbiturates Neg (NEG) Urine Phencyclidine Screen Neg (NEG) Urine Amphetamine/Methamphetamine Neg (NEG) Urine Benzodiazepines Screen Pos (NEG) Urine Cocaine Screen Neg (NEG) Urine Cannabinoids Screen Neg (NEG) Urine Ethyl Alcohol Neg (NEG) Glucose (Fingerstick) 108 mg/dL (70-99) 133 mg/dL (70-99) Test 03/14/19 00:21 03/14/19 06:04 03/14/19 06:25 Glucose (Fingerstick) 114 mg/dL (70-99) 83 mg/dL (70-99) Creatinine 1.5 mg/dL (0.7-1.3) Estimated GFR (Cockcroft-Gault) 60.4 Microbiology 03/11/19 - Final, Resulted 03/11/19 - Final, Resulted 03/11/19 - Final, Resulted 03/11/19 Gram Stain Evaluation - Final, Resulted 03/11/19 Sputum Culture, Resulted Pending 03/10/19 Blood Culture - Preliminary, Resulted NO GROWTH AFTER 4 DAYS 03/09/19 Urine Culture - Final, Complete 03/09/19 Urine Culture Result 1 (WIL) - Final, Complete Medications Current Medications Albuterol/ Ipratropium (Duoneb) 3 ml 1X ONCE NEB Last administered on 03/09/19at 21:21; Start 03/09/19 at 21:30; Stop 03/09/19 at 21:31; Status DC Dexamethasone Sodium Phosphate (Decadron) 10 mg 1X ONCE IV Last administered on 03/09/19at 22:29; Start 03/09/19 at 22:00; Stop 03/09/19 at 22:01; Status DC Propofol 100 ml @ 0 mls/hr CONT PRN IV SEE PROTOCOL Last administered on 03/10/19at 07:19; Start 03/09/19 at 22:30; Stop 03/10/19 at 07:28; Status DC Fentanyl Citrate (Fentanyl 2ml Vial) 50 mcg PRN Q1HR PRN IV SEE COMMENTS; Start 03/09/19 at 22:30; Stop 03/10/19 at 07:28; Status DC Chlorhexidine Gluconate (Peridex) 15 ml BID MM Last administered on 03/13/19at 21:23; Start 03/10/19 at 09:00 Famotidine (Pepcid Vial) 20 mg BID IVP Last administered on 03/13/19at 21:23; Start 03/10/19 at 09:00 Propofol 50 ml @ As Directed STK-MED ONCE IV ; Start 03/09/19 at 22:28; Stop 03/09/19 at 22:28; Status DC Albuterol/ Ipratropium (Duoneb) 3 ml 1X ONCE NEB Last administered on 03/10/19 02:04; Start 03/09/19 at 23:00; Stop 03/09/19 at 23:01; Status DC Albuterol/ Ipratropium (Duoneb) 3 ml 1X ONCE NEB Last administered on 03/10/19at 02:04; Start 03/09/19 at 23:00; Stop 03/09/19 at 23:01; Status DC Fentanyl Citrate (Fentanyl 2ml Vial) 100 mcg 1X ONCE IV Last administered on 03/09/19at 23:31; Start 03/09/19 at 23:30; Stop 03/09/19 at 23:31; Status DC Bumetanide (Bumex) 1 mg 1X ONCE IV Last administered on 03/10/19at 00:21; Start 03/10/19 at 00:00; Stop 03/10/19 at 00:01; Status DC Heparin Sodium (Porcine) (Heparin Sodium) 4,000 unit 1X ONCE IV Last administered on 03/10/19at 00:31; Start 03/10/19 at 00:00; Stop 03/10/19 at 00:01; Status DC Heparin Sodium/ Dextrose 500 ml @ 0 mls/hr CONT PRN IV PER PROTOCOL Last administered on 03/10/19at 23:34; Start 03/09/19 at 23:45; Stop 03/11/19 at 16:13; Status DC Heparin Sodium (Porcine) (Heparin Sodium) 5,500 unit PRN Q6HRS PRN IV FOR UFH LEVEL LESS THAN 0.2 Last administered on 03/11/19at 00:57; Start 03/09/19 at 23:45; Stop 03/11/19 at 16:13; Status DC Aspirin (Aspirin Rectal Supp) 300 mg 1X ONCE WA Last administered on 03/10/19at 03:42; Start 03/10/19 at 00:00; Stop 03/10/19 at 00:01; Status DC Propofol 50 ml @ As Directed STK-MED ONCE IV ; Start 03/09/19 at 23:38; Stop 03/09/19 at 23:38; Status DC Propofol 50 ml @ As Directed STK-MED ONCE IV ; Start 03/09/19 at 23:38; Stop 03/09/19 at 23:38; Status DC Piperacillin Sod/ Tazobactam Sod 4.5 gm/Sodium Chloride 100 ml @ 200 mls/hr 1X ONCE IV Last administered on 03/10/19at 05:19; Start 03/10/19 at 00:30; Stop 03/10/19 at 00:59; Status DC Propofol 50 ml @ As Directed STK-MED ONCE IV ; Start 03/10/19 at 00:51; Stop 03/10/19 at 00:51; Status DC Propofol 50 ml @ As Directed STK-MED ONCE IV ; Start 03/10/19 at 01:14; Stop 03/10/19 at 01:15; Status DC Fentanyl Citrate (Fentanyl 2ml Vial) 100 mcg 1X ONCE IV Last administered on 03/10/19at 01:26; Start 03/10/19 at 01:45; Stop 03/10/19 at 01:46; Status DC Clonidine HCl (Catapres) 0.1 mg 1X ONCE PO ; Start 03/10/19 at 01:30; Stop 03/10/19 at 01:34; Status DC Midazolam HCl (Versed) 5 mg 1X ONCE IV Last administered on 03/10/19at 01:28; Start 03/10/19 at 01:30; Stop 03/10/19 at 01:34; Status DC Propofol 50 ml @ As Directed STK-MED ONCE IV ; Start 03/10/19 at 02:08; Stop 03/10/19 at 02:09; Status DC Propofol 50 ml @ As Directed STK-MED ONCE IV ; Start 03/10/19 at 02:36; Stop 03/10/19 at 02:36; Status DC Rocuronium [place] (Zemuron) 50 mg STK-MED ONCE .ROUTE ; Start 03/10/19 at 05:15; Stop 03/10/19 at 05:15; Status DC Etomidate (Amidate) 20 mg STK-MED ONCE IV ; Start 03/10/19 at 05:15; Stop 03/10/19 at 05:16; Status DC Fentanyl Citrate 30 ml @ 0 mls/hr CONT PRN IV SEE PROTOCOL Last administered on 03/14/19at 05:24; Start 03/10/19 at 07:30 Propofol 100 ml @ 0 mls/hr CONT PRN IV SEE PROTOCOL; Start 03/10/19 at 07:30 Fentanyl Citrate (Fentanyl 2ml Vial) 25 mcg PRN Q1HR PRN IV SEE COMMENTS; Start 03/10/19 at 07:30 Fentanyl Citrate (Fentanyl 2ml Vial) 50 mcg PRN Q1HR PRN IV SEE COMMENTS; Start 03/10/19 at 07:30 Artificial Tears (Artificial Tears) 1 drop PRN Q1HR PRN OU DRY EYE Last administered on 03/13/19at 13:32; Start 03/10/19 at 07:30 Famotidine (Pepcid Vial) 20 mg BID IVP ; Start 03/10/19 at 09:00; Status UNV Morphine Sulfate (Morphine Sulfate) 2 mg PRN Q1HR PRN IV SEE COMMENTS.; Start 03/10/19 at 07:30 Morphine Sulfate (Morphine Sulfate) 4 mg PRN Q1HR PRN IV SEE COMMENTS.; Start 03/10/19 at 07:30 Midazolam HCl 100 ml @ 0 mls/hr CONT PRN IV SEE PROTOCOL Last administered on 03/14/19at 05:24; Start 03/10/19 at 07:30 Levofloxacin/ Dextrose (Levaquin Per Pharmacy) 1 each PRN DAILY PRN MC SEE COMMENTS; Start 03/10/19 at 08:15 Albuterol/ Ipratropium (Duoneb) 3 ml RTQID NEB Last administered on 03/13/19at 20:46; Start 03/10/19 at 12:00 Sodium Chloride 1,000 ml @ 100 mls/hr Q10H IV Last administered on 03/10/19 23:34; Start 03/10/19 at 08:15; Stop 03/11/19 at 16:02; Status DC Amlodipine Besylate (Norvasc) 5 mg DAILY PO Last administered on 03/10/19 09:13; Start 03/10/19 at 09:00; Stop 03/10/19 at 10:04; Status DC Hydrochlorothiazide (Hydrodiuril) 25 mg DAILY PO Last administered on 03/10/19 09:13; Start 03/10/19 at 09:00; Stop 03/10/19 at 10:04; Status DC Lisinopril (Prinivil) 5 mg DAILY PO Last administered on 03/10/19 09:13; Start 03/10/19 at 09:00; Stop 03/10/19 at 10:04; Status DC Levofloxacin/ Dextrose 100 ml @ 100 mls/hr Q24H IV Last administered on 03/13/19 09:05; Start 03/10/19 at 09:00 Aspirin (Amanda Aspirin) 325 mg 1X ONCE PO Last administered on 03/10/19 10:55; Start 03/10/19 at 10:30; Stop 03/10/19 at 10:31; Status DC Aspirin (Children'S Aspirin) 81 mg DAILYWBKFT PO Last administered on 03/13/19 09:05; Start 03/11/19 at 08:00 Amlodipine Besylate (Norvasc) 10 mg DAILY PO Last administered on 03/11/19 09:37; Start 03/11/19 at 09:00; Stop 03/11/19 at 12:50; Status DC Hydralazine HCl (Apresoline Inj) 10 mg PRN Q4HRS PRN IVP ELEVATED BP, SEE COMMENTS; Start 03/10/19 at 10:15; Stop 03/12/19 at 09:37; Status DC Furosemide (Lasix) 40 mg DAILY IVP Last administered on 03/11/19at 09:37; Start 03/10/19 at 11:00; Stop 03/11/19 at 11:24; Status DC Insulin Human Lispro (HumaLOG) 0-9 UNITS TIDWMEALS SQ ; Start 03/10/19 at 12:00; Stop 03/10/19 at 17:57; Status DC Dextrose (Dextrose 50%-Water Syringe) 12.5 gm PRN Q15MIN PRN IV SEE COMMENTS; Start 03/10/19 at 11:15; Stop 03/12/19 at 16:47; Status DC Dextrose 250 ml PRN Q15MIN PRN IV SEE COMMENTS; Start 03/10/19 at 11:15; Stop 03/10/19 at 11:05; Status DC Iohexol (Omnipaque 350 Mg/ml) 100 ml 1X ONCE IV Last administered on 03/10/19at 14:05; Start 03/10/19 at 11:45; Stop 03/10/19 at 11:47; Status DC Info (CONTRAST GIVEN -- Rx MONITORING) 1 each PRN DAILY PRN MC SEE COMMENTS; Start 03/10/19 at 11:45; Stop 03/12/19 at 11:44; Status DC Piperacillin Sod/ Tazobactam Sod (Zosyn Per Pharmacy) 1 each PRN DAILY PRN MC SEE COMMENTS; Start 03/10/19 at 11:45 Vancomycin HCl (Vanco Per Pharmacy) 1 each PRN DAILY PRN MC SEE COMMENTS Last administered on 03/11/19at 09:42; Start 03/10/19 at 11:45; Stop 03/11/19 at 13:57; Status DC Vancomycin HCl 2 gm/Sodium Chloride 500 ml @ 250 mls/hr 1X ONCE IV Last administered on 03/10/19at 12:41; Start 03/10/19 at 13:00; Stop 03/10/19 at 14:59; Status DC Piperacillin Sod/ Tazobactam Sod 3.375 gm/Sodium Chloride 50 ml @ 100 mls/hr Q6HRS IV Last administered on 03/14/19at 05:24; Start 03/10/19 at 12:30 Vancomycin HCl 1.75 gm/Sodium Chloride 500 ml @ 250 mls/hr Q12H IV Last administered on 03/11/19at 12:43; Start 03/11/19 at 01:00; Stop 03/11/19 at 13:57; Status DC Vancomycin HCl (Vancomycin Trough Level) 1 each 1X ONCE MC ; Start 03/12/19 at 12:30; Stop 03/12/19 at 12:31; Status Cancel Insulin Human Lispro (HumaLOG) 0-9 UNITS Q6HRS SQ ; Start 03/11/19 at 00:00; Stop 03/12/19 at 16:14; Status DC Magnesium Sulfate/ Dextrose 100 ml @ 50 mls/hr DAILY IV Last administered on 03/11/19at 09:28; Start 03/11/19 at 09:00; Stop 03/14/19 at 08:59 Potassium Phosphate 27.2 mmol/Sodium Chloride 259.0667 ml @ 64.753 m... 1X ONCE IV Last administered on 03/11/19at 09:28; Start 03/11/19 at 10:00; Stop 03/11/19 at 14:00; Status DC Potassium Phosphate 27.2 mmol/Sodium Chloride 259.0667 ml @ 64.753 m... 1X ONCE IV ; Start 03/11/19 at 14:00; Stop 03/11/19 at 18:00; Status DC Lorazepam (Ativan Inj) 1 mg PRN Q1HR PRN IV ANXIETY / AGITATION Last administered on 03/12/19at 20:19; Start 03/11/19 at 11:00 Sodium Chloride 1,000 ml @ 1,000 mls/hr 1X ONCE IV Last administered on 03/11/19at 12:06; Start 03/11/19 at 11:30; Stop 03/11/19 at 12:29; Status DC Norepinephrine Bitartrate 250 ml @ 27.837 mls/ hr CONT PRN IV SEE I/O RECORD Last administered on 03/13/19at 04:13; Start 03/11/19 at 13:00 Hydralazine HCl (Apresoline Inj) 10 mg PRN Q4HRS PRN IVP ELEVATED BP, SEE COMMENTS; Start 03/11/19 at 13:00 Linezolid/Dextrose 300 ml @ 300 mls/hr Q12HR IV Last administered on 03/13/19at 21:23; Start 03/11/19 at 21:00 Potassium Chloride/Water 50 ml @ 50 mls/hr Q1H IV Last administered on 03/11/19at 17:28; Start 03/11/19 at 16:00; Stop 03/11/19 at 17:59; Status DC Heparin Sodium (Porcine) (Heparin Sodium) 5,000 unit Q8HRS SQ Last administered on 03/14/19at 05:24; Start 03/11/19 at 22:00 Multi-Ingred Cream/Lotion/Oil/ Oint (Artificial Tears Eye Ointment) 1 zuri PRN Q1HR PRN OU DRY EYE; Start 03/12/19 at 09:00 Potassium Chloride/Water 50 ml @ 50 mls/hr 1X ONCE IV Last administered on 03/12/19at 09:44; Start 03/12/19 at 10:00; Stop 03/12/19 at 10:59; Status DC Potassium Chloride/Water 50 ml @ 50 mls/hr 1X ONCE IV ; Start 03/12/19 at 10:30; Stop 03/12/19 at 11:31; Status DC Insulin Human Lispro (HumaLOG) 0-9 UNITS TIDWMEALS SQ ; Start 03/12/19 at 17:00; Stop 03/12/19 at 16:24; Status DC Dextrose (Dextrose 50%-Water Syringe) 12.5 gm PRN Q15MIN PRN IV SEE COMMENTS; Start 03/12/19 at 16:15 Dextrose 250 ml PRN Q15MIN PRN IV SEE COMMENTS; Start 03/12/19 at 16:15 Insulin Human Lispro (HumaLOG) 0-9 UNITS Q6HRS SQ ; Start 03/12/19 at 18:00 Dexmedetomidine HCl 400 mcg/ Sodium Chloride 100 ml @ 0 mls/hr CONT PRN IV ANXIETY / AGITATION Last administered on 03/14/19at 05:24; Start 03/12/19 at 20:30 Sodium Chloride 500 ml @ 500 mls/hr 1X PRN PRN IV AGITATION Last administered on 03/12/19at 23:22; Start 03/12/19 at 20:30 Atropine Sulfate (ATROPINE 0.5mg SYRINGE) 0.5 mg PRN Q5MIN PRN IV SEE COMMENTS; Start 03/12/19 at 20:30 Vecuronium [place] (Norcuron Bolus) 10 mg PRN Q1HR PRN IV ON VENT/RESP FAILURE; Start 03/13/19 at 07:30 Perflutren Protein Type A Microsphe (Optison) 0.66 mg STK-MED ONCE IV ; Start 03/13/19 at 09:08; Stop 03/13/19 at 09:08; Status DC Perflutren Protein Type A Microsphe (Optison) 0.66 mg 1X ONCE IV Last administered on 03/13/19at 09:40; Start 03/13/19 at 09:15; Stop 03/13/19 at 09:16; Status DC Furosemide (Lasix) 40 mg 1X ONCE IVP Last administered on 03/13/19at 13:32; Start 03/13/19 at 10:30; Stop 03/13/19 at 10:31; Status DC Active Scripts Active Norvasc (Amlodipine Besylate) 5 Mg Tablet 1 Tab PO DAILY Lisinopril 5 Mg Tablet 1 Tab PO DAILY Reported Hydrochlorothiazide Tablet (Hydrochlorothiazide) 25 Mg Tablet 25 Mg PO DAILY Vitals/I & O Vital Sign - Last 24 Hours 03/13/19 03/13/19 03/13/19 03/13/19 08:00 08:00 08:14 09:00 Temp 98.4 98.4 Pulse 72 68 Resp 16 16 B/P (MAP) 125/81 (96) 131/80 (97) Pulse Ox 97 97 99 O2 Delivery Mechanical Ventilator Ventilator Ventilator Ventilator 03/13/19 03/13/19 03/13/19 03/13/19 10:00 11:00 11:18 11:59 Pulse 70 70 Resp 16 16 B/P (MAP) 164/80 (108) 119/66 (83) Pulse Ox 99 97 97 97 O2 Delivery Ventilator Ventilator Ventilator O2 Flow Rate 15.0 03/13/19 03/13/19 03/13/19 03/13/19 12:00 12:00 13:00 13:32 Temp 98.6 98.6 Pulse 70 70 Resp 16 16 B/P (MAP) 131/69 (89) 131/75 (93) Pulse Ox 98 98 98 O2 Delivery Ventilator Mechanical Ventilator Ventilator Ventilator 03/13/19 03/13/19 03/13/19 03/13/19 13:35 14:00 15:00 15:37 Pulse 76 72 Resp 18 17 B/P (MAP) 97/62 (74) 112/75 (87) Pulse Ox 98 89 93 97 O2 Delivery Ventilator Ventilator Ventilator O2 Flow Rate 15.0 03/13/19 03/13/19 03/13/19 03/13/19 16:00 16:00 16:46 17:00 Temp 98.7 98.7 Pulse 76 75 Resp 16 16 B/P (MAP) 110/70 (83) 115/75 (88) Pulse Ox 98 97 96 O2 Delivery Mechanical Ventilator Ventilator Ventilator Ventilator 03/13/19 03/13/19 03/13/19 03/13/19 17:59 18:00 19:00 19:14 Pulse 74 77 Resp 16 23 24 B/P (MAP) 109/66 (80) 121/80 (94) Pulse Ox 96 93 94 94 O2 Delivery Ventilator Ventilator Ventilator O2 Flow Rate 15.0 03/13/19 03/13/19 03/13/19 03/13/19 20:00 20:00 20:45 21:00 Temp 98.6 98.6 Pulse 80 77 Resp 24 16 B/P (MAP) 114/72 (86) 103/63 (76) Pulse Ox 94 94 97 O2 Delivery Mechanical Ventilator Ventilator Ventilator Ventilator 03/13/19 03/13/19 03/13/19 03/14/19 22:00 23:00 23:45 00:00 Pulse 80 77 Resp 23 16 B/P (MAP) 111/66 (81) 90/49 (63) Pulse Ox 91 95 96 O2 Delivery Ventilator Ventilator Ventilator Mechanical Ventilator 03/14/19 03/14/19 03/14/19 03/14/19 00:00 00:12 00:47 01:00 Temp 99.2 99.2 Pulse 80 76 Resp 16 16 16 16 B/P (MAP) 90/53 (65) 87/54 (65) Pulse Ox 92 96 94 95 O2 Delivery Ventilator Ventilator Ventilator Ventilator 03/14/19 03/14/19 03/14/19 03/14/19 02:00 02:05 03:00 04:00 Temp 98.8 98.8 Pulse 75 75 75 Resp 16 16 16 B/P (MAP) 97/60 (72) 102/62 (75) 102/63 (76) Pulse Ox 95 95 95 95 O2 Delivery Ventilator Ventilator Ventilator Ventilator 03/14/19 03/14/19 03/14/19 03/14/19 04:00 04:15 05:00 05:24 Pulse 74 Resp 21 16 B/P (MAP) 98/63 (75) Pulse Ox 95 95 95 O2 Delivery Mechanical Ventilator Ventilator Ventilator Ventilator 03/14/19 03/14/19 03/14/19 06:00 06:05 06:16 Pulse 79 Resp 16 16 B/P (MAP) 111/70 (84) Pulse Ox 94 95 94 O2 Delivery Ventilator Ventilator Ventilator Intake and Output 03/13/19 03/13/19 03/14/19 15:00 23:00 07:00 Intake Total 550 ml 2775 ml 1678.2 ml Output Total 750 ml 1675 ml 1325 ml Balance -200 ml 1100 ml 353.2 ml PRICILA GOMEZ MD Mar 14, 2019 07:25
[2019-03-14] MEDS: IPRATRPIUM/ALBUTEROL 0.5/2.5MG 3 ML NEBU. NEB SCH ×4 (07:55→20:28)
[2019-03-14 08:02] LABS: BASE EXCESS ABG 2 mmol/L (-3-3); HCO3 ABG 28 mmol/L (21-28); PCO2 ABG 46 mmHg (35-46); PO2 ABG 54 mmHg (75-108); SAT O2 ABG 87 % (92-99)
[2019-03-14 08:03] LABS: FIO2 ABG 100
[2019-03-14] MEDS: ASPIRIN CHEWABLE 81 MG TABLET. PO SCH (08:08)
[2019-03-14] MEDS: CHLORHEXIDINE 0.12% 15 ML MOUTHWASH. MM SCH ×2 (08:09→21:15)
[2019-03-14] MEDS: FAMOTIDINE 20 MG/2 ML VIAL IVP SCH ×2 (08:09→21:15)
--- NOTE | 2019-03-14 09:25 | PDOC ---
Infectious Disease Note Subjective Subjective Remains orally intubated, [id number]% PEEP 12 No fevers last 24 hours ROS ROS unobtainable Vital Sign Vital Signs Vital Signs Date Time Temp Pulse Resp B/P (MAP) Pulse Ox O2 Delivery O2 Flow Rate FiO2 03/14/19 07:44 91 Ventilator 03/14/19 07:00 81 18 140/90 (107) 03/14/19 04:00 98.8 98.8 03/13/19 17:59 15.0 Physical Exam PHYSICAL EXAM GENERAL: Orally intubated and lightly sedated. Moves foot and resists eye opening HEENT: Resists eye exam. OGT/ETT NECK: Supple LUNGS: + rhonchi HEART: S1 and S2, regular. ABDOMEN: Obese, soft, +BS : Ramos in place EXTREMITIES: No gross edema or cyanosis SKIN: Chronic stasis dermatitis on the lower extremity. NEUROLOGIC: Sedated [facility] clean Labs Lab Laboratory Tests Test 03/13/19 10:30 03/13/19 13:29 03/13/19 18:06 03/14/19 00:21 Urine Opiates Screen Neg (NEG) Urine Methadone Screen Neg (NEG) Urine Barbiturates Neg (NEG) Urine Phencyclidine Screen Neg (NEG) Urine Amphetamine/Methamphetamine Neg (NEG) Urine Benzodiazepines Screen Pos (NEG) Urine Cocaine Screen Neg (NEG) Urine Cannabinoids Screen Neg (NEG) Urine Ethyl Alcohol Neg (NEG) Glucose (Fingerstick) 108 mg/dL (70-99) 133 mg/dL (70-99) 114 mg/dL (70-99) Test 03/14/19 06:04 03/14/19 06:25 03/14/19 07:50 Glucose (Fingerstick) 83 mg/dL (70-99) Creatinine 1.5 mg/dL (0.7-1.3) Estimated GFR (Cockcroft-Gault) 60.4 O2 Saturation 87 % (92-99) Arterial Blood pH 7.40 (7.35-7.45) Arterial Blood pCO2 at Patient Temp 46 mmHg (35-46) Arterial Blood pO2 at Patient Temp 54 mmHg (75-108) Arterial Blood HCO3 28 mmol/L (21-28) Arterial Blood Base Excess 2 mmol/L (-3-3) FiO2 100 AP view was taken of the chest. Central line and endotracheal tube are unchanged. There are bilateral areas of infiltrate with little change. Heart is enlarged. Pleural effusions are probable. IMPRESSION: 1. Little change from the prior study. No evidence of DVT in the visualized bilateral lower extremity venous system. Micro SPUTUM GRAM STAIN RESULT 1 Final Moderate number of gram positive cocci. SPUTUM CULTURE-LC PENDING BLOOD CULTURE Preliminary NO GROWTH AFTER 4 DAYS Objective Assessment Low grade temp - occurred despite Levofloxacin Pulmonary infiltrate - GPC on gram stain, 03/11 CHF Super morbid obesity, BMI 61 Vaping Respiratory failure Plan Plan of Care Continue Zyvox and Zosyn d/c Levaquin f/u sputum culture D/w nursing Critically ill overall prognosis poor D/w family Attending Co-Sign Attending Co-Sign The patient was seen and interviewed as well as examined at the bedside. The chart was reviewed. The case was discussed. Agree with the plan of care. XIN VASQUEZ APRN Mar 14, 2019 09:25 LUCILA CARDENAS MD Mar 14, 2019 14:47
--- NOTE | 2019-03-14 14:30 | NUR ---
Patient family at bedside. Patient asking if a sedation vacation is possible so that the patient can voice or write his thoughts on a tracheostomy and peg-tube placement.
[2019-03-15] VITALS (25 sets, daily range): BP systolic 83–116; BP diastolic 60–78
[2019-03-15] MEDS: DEXMEDETOMIDINE 400 MCG in IV NORMAL SALINE 100ML 96 ML IV PRN ×7 (01:17→22:15)
[2019-03-15] MEDS: MIDAZOLAM 100mg/100ml NS BAG 100 ML IV PRN ×2 (05:13→14:29)
[2019-03-15] MEDS: INSULIN LISPRO 300 UNITS/3 ML VIAL. SQ SCH ×3 (05:55→18:00)
[2019-03-15] MEDS: PIPERACILLIN/TAZOBACTAM 3.375 GM in IV NORMAL SALINE 50ML 50 ML IV SCH ×3 (05:56→17:13)
[2019-03-15] MEDS: HEPARIN for SUB-Q USE 5,000 UNIT/ML VIAL. SQ SCH ×3 (05:57→22:11)
[2019-03-15 06:03] LABS: BASO # 0.1 x10^3/uL (0.0-0.2); BASO % 1 % (0-3); EOS # 0.5 x10^3/uL (0.0-0.7); EOS % 4 % (0-3); HEMATOCRIT 39.9 % (39.0-53.0); HEMOGLOBIN 12.2 g/dL (13.0-17.5); LYMPH # 0.7 x10^3/uL (1.0-4.8); LYMPH % 6 % (24-48); MEAN CORPUSCULAR HEMOGLOBIN 24 pg (25-35); MEAN CORPUSCULAR HGB CONC 31 g/dL (31-37); MEAN CORPUSCULAR VOLUME 79 fL (79-100); MONO # 1.3 x10^3/uL (0.0-1.1); MONO % 10 % (0-9); NEUT # 10.4 x10^3/uL (1.8-7.7); NEUT % 80 % (31-73); PLATELET COUNT 160 x10^3/uL (140-400); RED BLOOD COUNT 5.07 x10^6/uL (4.30-5.70); RED CELL DISTRIBUTION WIDTH 18.9 % (11.5-14.5)
--- NOTE | 2019-03-15 06:06 | PDOC ---
PULMONARY PROGRESS NOTES Subjective on vent, sedated on fentanyl, precedex, versed, small ett secretion on 100% FIO2, 12 of PEEP Vitals Vital Signs Date Time Temp Pulse Resp B/P (MAP) Pulse Ox O2 Delivery O2 Flow Rate FiO2 03/15/19 05:00 74 18 105/69 (81) 95 Ventilator 03/15/19 04:00 98.8 98.8 Comments ros as mentioned as mentioned as above other sys otherwise neg on vent sedated HEENT: Other Lungs: Other (decrease bs) Cardiovascular: S1, S2 Abdomen: Soft, Non-tender, Other (obese) Extremities: Other (trace edema) Skin: Warm Labs Laboratory Tests Test 03/13/19 08:20 03/13/19 10:30 03/13/19 13:29 03/13/19 18:06 O2 Saturation 95 % (92-99) Arterial Blood pH 7.42 (7.35-7.45) Arterial Blood pCO2 at Patient Temp 50 mmHg (35-46) Arterial Blood pO2 at Patient Temp 78 mmHg (75-108) Arterial Blood HCO3 32 mmol/L (21-28) Arterial Blood Base Excess 6 mmol/L (-3-3) FiO2 100 Urine Opiates Screen Neg (NEG) Urine Methadone Screen Neg (NEG) Urine Barbiturates Neg (NEG) Urine Phencyclidine Screen Neg (NEG) Urine Amphetamine/Methamphetamine Neg (NEG) Urine Benzodiazepines Screen Pos (NEG) Urine Cocaine Screen Neg (NEG) Urine Cannabinoids Screen Neg (NEG) Urine Ethyl Alcohol Neg (NEG) Glucose (Fingerstick) 108 mg/dL (70-99) 133 mg/dL (70-99) Test 03/14/19 00:21 03/14/19 06:04 03/14/19 06:25 03/14/19 07:50 Glucose (Fingerstick) 114 mg/dL (70-99) 83 mg/dL (70-99) Creatinine 1.5 mg/dL (0.7-1.3) Estimated GFR (Cockcroft-Gault) 60.4 O2 Saturation 87 % (92-99) Arterial Blood pH 7.40 (7.35-7.45) Arterial Blood pCO2 at Patient Temp 46 mmHg (35-46) Arterial Blood pO2 at Patient Temp 54 mmHg (75-108) Arterial Blood HCO3 28 mmol/L (21-28) Arterial Blood Base Excess 2 mmol/L (-3-3) FiO2 100 Test 03/14/19 17:41 03/14/19 23:24 Glucose (Fingerstick) 112 mg/dL (70-99) 100 mg/dL (70-99) Laboratory Tests Test 03/14/19 06:25 03/14/19 07:50 03/14/19 17:41 03/14/19 23:24 Creatinine 1.5 mg/dL (0.7-1.3) Estimated GFR (Cockcroft-Gault) 60.4 O2 Saturation 87 % (92-99) Arterial Blood pH 7.40 (7.35-7.45) Arterial Blood pCO2 at Patient Temp 46 mmHg (35-46) Arterial Blood pO2 at Patient Temp 54 mmHg (75-108) Arterial Blood HCO3 28 mmol/L (21-28) Arterial Blood Base Excess 2 mmol/L (-3-3) FiO2 100 Glucose (Fingerstick) 112 mg/dL (70-99) 100 mg/dL (70-99) Medications Active Scripts Medications Dose Route/Sig Max Daily Dose Days Date Category Hydrochlorothiazide Tablet (Hydrochlorothiazide) 25 Mg Tablet 25 Mg PO DAILY 03/10/19 Reported Norvasc (Amlodipine Besylate) 5 Mg Tablet 1 Tab PO DAILY 01/12/19 Rx Lisinopril 5 Mg Tablet 1 Tab PO DAILY 01/12/19 Rx Comments cxr reviewed bilateral infiltrate, atelectasis ett ok Impression . 1. Acute hypercapnic respiratory failure secondary to multifactorial etiologies. Likely related to acute lung injury/noncardiogenic pulmonary edema/ ARDS due to vaping. less likely [id number] right heart failure . Needing max amount of oxygen and high PEEP c/w shunt physiology due to ARDS Likelihood of pulmonary embolism is less, CTA non diagnostic for PE. Dopplers n eg 2. Abnormal chest x-ray with bilateral lung infiltrates. noncardiogenic pulmonary edema. CT chest reviewed. 3. History of morbid obesity with Pickwickian physiology with chronic hypercapnia and chronic hypoxic respiratory failure, history of obstructive sleep apnea as well, but noncompliant to CPAP. 4. Acute kidney injury. stable 5. Increased troponin. Possible non-ST myocardial infarction. 6. Previous echo with normal ejection fraction. PA 55 likely secondary pulmonary HTN 7. History of tobacco use. Plan . 1. Continue with present assist control mode and will increase PEEP of 14, t itrate fi02 to keep sat 93%, make necessary adjustment based on followup ABGs. cont vent support 2. CTA chest has been reviewed. 3. No acute bleed on CT head. 4. Zyvox and Zosyn. Dose Dapto times one today blood cx, sputum cx GPC 5. Monitor fever and white cell count. 6. Continue bronchodilators. 7. Heparin for DVT prophylaxis 8. P.r.n. diuresis.monitor BP closely 9. dr mcrae Discussed with brother 9/3, discussed with RN and RT. We will follow along with you. 10. Condition guarded SAFIA WISEMAN MD Mar 15, 2019 06:06
[2019-03-15 06:21] LABS: ALBUMIN 2.1 g/dL (3.4-5.0); ALBUMIN/GLOBULIN RATIO 0.5 (1.0-1.7); CALCIUM 9.1 mg/dL (8.5-10.1); CREATININE 1.6 mg/dL (0.7-1.3); GFR 56.1; POTASSIUM 4.6 mmol/L (3.5-5.1); TOTAL BILIRUBIN 1.9 mg/dL (0.2-1.0); TOTAL PROTEIN 6.4 g/dL (6.4-8.2)
[2019-03-15] MEDS: ASPIRIN CHEWABLE 81 MG TABLET. PO SCH (07:37)
[2019-03-15] MEDS: CHLORHEXIDINE 0.12% 15 ML MOUTHWASH. MM SCH ×2 (08:00→21:02)
[2019-03-15] MEDS: FAMOTIDINE 20 MG/2 ML VIAL IVP SCH ×2 (08:02→21:02)
--- NOTE | 2019-03-15 08:50 | PDOC ---
Infectious Disease Note Subjective Subjective Sedated Orally intubated, FiO2 100% PEEP up to 14 Decreased urine output No fevers since yesterday ROS ROS unobtainable Vital Sign Vital Signs Vital Signs Date Time Temp Pulse Resp B/P (MAP) Pulse Ox O2 Delivery O2 Flow Rate FiO2 03/15/19 08:00 99.8 73 28 116/78 (91) 94 Ventilator 99.8 Physical Exam PHYSICAL EXAM GENERAL: Orally intubated and sedated. HEENT: Pupils equal, small. OGT/ETT NECK: Supple LUNGS: improved aeration HEART: S1 and S2, regular. ABDOMEN: Obese, soft, +BS : Ramos in place EXTREMITIES: Trace edema - [place] SKIN: Chronic stasis dermatitis on the lower extremity. NEUROLOGIC: Sedated [facility] clean Labs Lab Laboratory Tests Test 03/14/19 17:41 03/14/19 23:24 03/15/19 05:49 03/15/19 05:50 Glucose (Fingerstick) 112 mg/dL (70-99) 100 mg/dL (70-99) 103 mg/dL (70-99) White Blood Count 13.0 x10^3/uL (4.0-11.0) Red Blood Count 5.07 x10^6/uL (4.30-5.70) Hemoglobin 12.2 g/dL (13.0-17.5) Hematocrit 39.9 % (39.0-53.0) Mean Corpuscular Volume 79 fL (79-100) Mean Corpuscular Hemoglobin 24 pg (25-35) Mean Corpuscular Hemoglobin Concent 31 g/dL (31-37) Red Cell Distribution Width 18.9 % (11.5-14.5) Platelet Count 160 x10^3/uL (140-400) Neutrophils (%) (Auto) 80 % (31-73) Lymphocytes (%) (Auto) 6 % (24-48) Monocytes (%) (Auto) 10 % (0-9) Eosinophils (%) (Auto) 4 % (0-3) Basophils (%) (Auto) 1 % (0-3) Neutrophils # (Auto) 10.4 x10^3/uL (1.8-7.7) Lymphocytes # (Auto) 0.7 x10^3/uL (1.0-4.8) Monocytes # (Auto) 1.3 x10^3/uL (0.0-1.1) Eosinophils # (Auto) 0.5 x10^3/uL (0.0-0.7) Basophils # (Auto) 0.1 x10^3/uL (0.0-0.2) Sodium Level 139 mmol/L (136-145) Potassium Level 4.6 mmol/L (3.5-5.1) Chloride Level 102 mmol/L (98-107) Carbon Dioxide Level 32 mmol/L (21-32) Anion Gap 5 (6-14) Blood Urea Nitrogen 27 mg/dL (8-26) Creatinine 1.6 mg/dL (0.7-1.3) Estimated GFR (Cockcroft-Gault) 56.1 BUN/Creatinine Ratio 17 (6-20) Glucose Level 101 mg/dL (70-99) Calcium Level 9.1 mg/dL (8.5-10.1) Total Bilirubin 1.9 mg/dL (0.2-1.0) Aspartate Amino Transf (AST/SGOT) 19 U/L (15-37) Alanine Aminotransferase (ALT/SGPT) 59 U/L (16-63) Alkaline Phosphatase 80 U/L (46-116) Total Protein 6.4 g/dL (6.4-8.2) Albumin 2.1 g/dL (3.4-5.0) Albumin/Globulin Ratio 0.5 (1.0-1.7) Micro SPUTUM GRAM STAIN RESULT 1 Final Moderate number of gram positive cocci. SPUTUM CULTURE-LC PENDING 03/10. BLOOD CULTURE Final GRAM POSITIVE COCCI 2SETS DRAWN, 1 OF 4POSITIVE Objective Assessment GPC bacteremia (1 of 4 bottles), 03/10 Pulmonary infiltrate - GPC on gram stain, 03/11 Leukocytosis - up today OSMAN Low grade temp - occurred despite Levofloxacin - better CHF Super morbid obesity, BMI 61 Vaping Respiratory failure Plan Plan of Care Continue Zyvox and Zosyn. Dose Dapto times one today off Levaquin Dose dexamethasone, 03/09 f/u sputum culture and BMP/ CBC - in am D/w nursing Critically ill overall prognosis poor Attending Co-Sign Attending Co-Sign The patient was seen and interviewed as well as examined at the bedside. The chart was reviewed. The case was discussed. Agree with the plan of care. XIN VASQUEZ APRN Mar 15, 2019 08:50 LUCILA CARDENAS MD Mar 15, 2019 12:30
[2019-03-15] MEDS: IPRATRPIUM/ALBUTEROL 0.5/2.5MG 3 ML NEBU. NEB SCH ×4 (09:07→20:32)
--- NOTE | 2019-03-15 09:08 | NUR ---
G baths are complete for the 5 days after admission. Did not complete bath today. Addendum: 03/15/19 at 12 by JUNG ROSEN RN Amended: Links added.
--- NOTE | 2019-03-15 09:14 | PDOC ---
PROGRESS NOTES History of Present Illness History of Present Illness VTE Prophylaxis Ordered VTE Prophylaxis Devices: Yes VTE Pharmacological Prophylaxi: Yes Assessment/Plan Assessment/Plan Acute mixed hypoxic, hypercapnic respiratory failure-CO2 was 127 with a pH of 7.1 on arrival Morbid obesity BMI 42 Severe COPD exacerbation, COPD or on 2-3 L nasal cannula-home dependent 02 History of CHF and diabetes mellitus per documentation SIRS POA, no consulted process on chest x-ray Troponin elevation in the background of the above medical illnesses Mild hyponatremia 134, reactive leukocytosis AK I VMN creatinine 1.2 Hypertension POA-blood pressure 160s systolic POSSIBLE UTI CTA CHEST Examination is nondiagnostic for pulmonary embolism as there is not enough contrast within the pulmonary artery and its branches. Moderate bibasilar lung consolidation disease with air bronchograms likely pneumonia or atelectasis with small bilateral pleural effusions. Aneurysmal change of the ascending aorta Mediastinal and hilar contours are grossly stable. Bilateral airspace opacities have improved with improved aeration particularly in the left midlung. Small bilateral pleural effusions. No definite pneumothorax. 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 less likely [id number] right heart failure SEVERE PROTEIN-CALORIC MALNUTRITION Plan ICU Bed, vent PEEP UP TO 13-= 14 Needing max amount of oxygen and high PEEP c/w shunt physiology due to ARDS Pulmonary FOLLOWING consult cardiology PPI DVT prophylaxis Start sliding scale insulin Monitor labs heparin drip by cardiology replace lytes, per protocol d/w RN BY PHONE URINE CULTURE id following blood culture sputum culture procalcitonin cont Continue Zyvox and Zosyn. Dose Dapto times one today overall prognosis poor, consult palliative care for goals of treatment ///FAMILY CALLED CONT FULL CODE FOR NOW cc 37 min Vitals Vitals Vital Signs Date Time Temp Pulse Resp B/P (MAP) Pulse Ox O2 Delivery O2 Flow Rate FiO2 03/15/19 09:07 95 Ventilator 03/15/19 09:00 72 26 111/75 (87) 03/15/19 08:00 99.8 99.8 Physical Exam Physical Exam GENERAL: Orally intubated and sedated. HEENT: Pupils equal, small. OGT/ETT NECK: Supple LUNGS: improved aeration HEART: S1 and S2, regular. ABDOMEN: Obese, soft, +BS : Ramos in place EXTREMITIES: Trace edema SKIN: Chronic stasis dermatitis on the lower extremity. NEUROLOGIC: Sedated RIJ clean General: No acute distress, Other (short neck , Mallampati 4 ON VENT) Heart: Regular rate (SR), Other (distante heart sounds) Lungs: Other (decrease bs) Abdomen: Normal bowel sounds, Soft, No tenderness, No hepatosplenomegaly, No masses Extremities: No clubbing, No cyanosis, No edema, Normal pulses, No t enderness/swelling Skin: No rashes, No breakdown, No significant lesion Labs LABS SPEC #: [id number] SHANITA: 03/11/19 STATUS: RES REQ #: [id number] RECD: 03/11/19 [facility] DR: PRICILA GOMEZ MD SOURCE: SPUTUM ENTR: 03/11/19 [facility] DR: EDISON TABOR MD SPDESC: INDUCED SARAH GAYTAN MD,ZENAIDA Csaarez MD NO PCP RIFFEL,ADELAIDA ESCOBAR,ELVA THOMPSON ORDERED: SPUTUM CULTURE COMMENTS: Has specimen been collected/obtained? Y Procedure Result GRAM STAIN WHITE BLOOD CELLS Final Many GRAM STAIN EPITHELIAL CELLS Final Moderate GRAM STAIN RESULT 1 Final Comment Moderate number of gram positive cocci. GRAM STAIN RESULT 2 Preliminary Test not performed GRAM STAIN RESULT 3 Preliminary Test not performed GRAM STAIN RESULT 4 Preliminary Test not performed GRAM STAIN EVALUATION Final Comment This specimen is of good quality and is acceptable for routine bacterial culture. Performed at: [facility] [address], [place], [place] [id number] Program Trainer: ALFREDO Cortez MD, Phone: [phone] SPUTUM CULTURE- Final Final report CONTINUED ON NEXT PAGE RUN DATE: 03/15/19 PAGE 2 RUN TIME: 1211 [facility] [address] [place] [address] Julián Ledesma M.D., Motor Vehicle Or Caravan Salesperson SPEC: [id number] PATIENT: GENESIS TALAVERA [id number] (Continued) --- --------- Procedure Result SPUTUM CULT RES 1 Final Comment No growth in 56 - 72 hours. Performed at: - [facility] [place] [address], [place], [place] [id number] Program Trainer: ALFREDO Cortez MD, Phone: [phone] Laboratory Tests Test 03/14/19 17:41 03/14/19 23:24 03/15/19 05:49 03/15/19 05:50 Glucose (Fingerstick) 112 mg/dL (70-99) 100 mg/dL (70-99) 103 mg/dL (70-99) White Blood Count 13.0 x10^3/uL (4.0-11.0) Red Blood Count 5.07 x10^6/uL (4.30-5.70) Hemoglobin 12.2 g/dL (13.0-17.5) Hematocrit 39.9 % (39.0-53.0) Mean Corpuscular Volume 79 fL (79-100) Mean Corpuscular Hemoglobin 24 pg (25-35) Mean Corpuscular Hemoglobin Concent 31 g/dL (31-37) Red Cell Distribution Width 18.9 % (11.5-14.5) Platelet Count 160 x10^3/uL (140-400) Neutrophils (%) (Auto) 80 % (31-73) Lymphocytes (%) (Auto) 6 % (24-48) Monocytes (%) (Auto) 10 % (0-9) Eosinophils (%) (Auto) 4 % (0-3) Basophils (%) (Auto) 1 % (0-3) Neutrophils # (Auto) 10.4 x10^3/uL (1.8-7.7) Lymphocytes # (Auto) 0.7 x10^3/uL (1.0-4.8) Monocytes # (Auto) 1.3 x10^3/uL (0.0-1.1) Eosinophils # (Auto) 0.5 x10^3/uL (0.0-0.7) Basophils # (Auto) 0.1 x10^3/uL (0.0-0.2) Sodium Level 139 mmol/L (136-145) Potassium Level 4.6 mmol/L (3.5-5.1) Chloride Level 102 mmol/L (98-107) Carbon Dioxide Level 32 mmol/L (21-32) Anion Gap 5 (6-14) Blood Urea Nitrogen 27 mg/dL (8-26) Creatinine 1.6 mg/dL (0.7-1.3) Estimated GFR (Cockcroft-Gault) 56.1 BUN/Creatinine Ratio 17 (6-20) Glucose Level 101 mg/dL (70-99) Calcium Level 9.1 mg/dL (8.5-10.1) Total Bilirubin 1.9 mg/dL (0.2-1.0) Aspartate Amino Transf (AST/SGOT) 19 U/L (15-37) Alanine Aminotransferase (ALT/SGPT) 59 U/L (16-63) Alkaline Phosphatase 80 U/L (46-116) Total Protein 6.4 g/dL (6.4-8.2) Albumin 2.1 g/dL (3.4-5.0) Albumin/Globulin Ratio 0.5 (1.0-1.7) Assessment and Plan Assessmemt and Plan Problems Medical Problems: (1) CHF exacerbation Status: Acute (2) COPD exacerbation Status: Acute (3) Hypoxia Status: Acute (4) NSTEMI (non-ST elevated myocardial infarction) Status: Acute (5) Respiratory failure Status: Acute Comment Review of Relevant I have reviewed the following items peter (where applicable) has been applied. Labs Laboratory Tests Test 03/13/19 10:30 03/13/19 13:29 03/13/19 18:06 03/14/19 00:21 Urine Opiates Screen Neg (NEG) Urine Methadone Screen Neg (NEG) Urine Barbiturates Neg (NEG) Urine Phencyclidine Screen Neg (NEG) Urine Amphetamine/Methamphetamine Neg (NEG) Urine Benzodiazepines Screen Pos (NEG) Urine Cocaine Screen Neg (NEG) Urine Cannabinoids Screen Neg (NEG) Urine Ethyl Alcohol Neg (NEG) Glucose (Fingerstick) 108 mg/dL (70-99) 133 mg/dL (70-99) 114 mg/dL (70-99) Test 03/14/19 06:04 03/14/19 06:25 03/14/19 07:50 03/14/19 17:41 Glucose (Fingerstick) 83 mg/dL (70-99) 112 mg/dL (70-99) Creatinine 1.5 mg/dL (0.7-1.3) Estimated GFR (Cockcroft-Gault) 60.4 O2 Saturation 87 % (92-99) Arterial Blood pH 7.40 (7.35-7.45) Arterial Blood pCO2 at Patient Temp 46 mmHg (35-46) Arterial Blood pO2 at Patient Temp 54 mmHg (75-108) Arterial Blood HCO3 28 mmol/L (21-28) Arterial Blood Base Excess 2 mmol/L (-3-3) FiO2 100 Test 03/14/19 23:24 03/15/19 05:49 03/15/19 05:50 Glucose (Fingerstick) 100 mg/dL (70-99) 103 mg/dL (70-99) White Blood Count 13.0 x10^3/uL (4.0-11.0) Red Blood Count 5.07 x10^6/uL (4.30-5.70) Hemoglobin 12.2 g/dL (13.0-17.5) Hematocrit 39.9 % (39.0-53.0) Mean Corpuscular Volume 79 fL (79-100) Mean Corpuscular Hemoglobin 24 pg (25-35) Mean Corpuscular Hemoglobin Concent 31 g/dL (31-37) Red Cell Distribution Width 18.9 % (11.5-14.5) Platelet Count 160 x10^3/uL (140-400) Neutrophils (%) (Auto) 80 % (31-73) Lymphocytes (%) (Auto) 6 % (24-48) Monocytes (%) (Auto) 10 % (0-9) Eosinophils (%) (Auto) 4 % (0-3) Basophils (%) (Auto) 1 % (0-3) Neutrophils # (Auto) 10.4 x10^3/uL (1.8-7.7) Lymphocytes # (Auto) 0.7 x10^3/uL (1.0-4.8) Monocytes # (Auto) 1.3 x10^3/uL (0.0-1.1) Eosinophils # (Auto) 0.5 x10^3/uL (0.0-0.7) Basophils # (Auto) 0.1 x10^3/uL (0.0-0.2) Sodium Level 139 mmol/L (136-145) Potassium Level 4.6 mmol/L (3.5-5.1) Chloride Level 102 mmol/L (98-107) Carbon Dioxide Level 32 mmol/L (21-32) Anion Gap 5 (6-14) Blood Urea Nitrogen 27 mg/dL (8-26) Creatinine 1.6 mg/dL (0.7-1.3) Estimated GFR (Cockcroft-Gault) 56.1 BUN/Creatinine Ratio 17 (6-20) Glucose Level 101 mg/dL (70-99) Calcium Level 9.1 mg/dL (8.5-10.1) Total Bilirubin 1.9 mg/dL (0.2-1.0) Aspartate Amino Transf (AST/SGOT) 19 U/L (15-37) Alanine Aminotransferase (ALT/SGPT) 59 U/L (16-63) Alkaline Phosphatase 80 U/L (46-116) Total Protein 6.4 g/dL (6.4-8.2) Albumin 2.1 g/dL (3.4-5.0) Albumin/Globulin Ratio 0.5 (1.0-1.7) Laboratory Tests Test 03/14/19 17:41 03/14/19 23:24 03/15/19 05:49 03/15/19 05:50 Glucose (Fingerstick) 112 mg/dL (70-99) 100 mg/dL (70-99) 103 mg/dL (70-99) White Blood Count 13.0 x10^3/uL (4.0-11.0) Red Blood Count 5.07 x10^6/uL (4.30-5.70) Hemoglobin 12.2 g/dL (13.0-17.5) Hematocrit 39.9 % (39.0-53.0) Mean Corpuscular Volume 79 fL (79-100) Mean Corpuscular Hemoglobin 24 pg (25-35) Mean Corpuscular Hemoglobin Concent 31 g/dL (31-37) Red Cell Distribution Width 18.9 % (11.5-14.5) Platelet Count 160 x10^3/uL (140-400) Neutrophils (%) (Auto) 80 % (31-73) Lymphocytes (%) (Auto) 6 % (24-48) Monocytes (%) (Auto) 10 % (0-9) Eosinophils (%) (Auto) 4 % (0-3) Basophils (%) (Auto) 1 % (0-3) Neutrophils # (Auto) 10.4 x10^3/uL (1.8-7.7) Lymphocytes # (Auto) 0.7 x10^3/uL (1.0-4.8) Monocytes # (Auto) 1.3 x10^3/uL (0.0-1.1) Eosinophils # (Auto) 0.5 x10^3/uL (0.0-0.7) Basophils # (Auto) 0.1 x10^3/uL (0.0-0.2) Sodium Level 139 mmol/L (136-145) Potassium Level 4.6 mmol/L (3.5-5.1) Chloride Level 102 mmol/L (98-107) Carbon Dioxide Level 32 mmol/L (21-32) Anion Gap 5 (6-14) Blood Urea Nitrogen 27 mg/dL (8-26) Creatinine 1.6 mg/dL (0.7-1.3) Estimated GFR (Cockcroft-Gault) 56.1 BUN/Creatinine Ratio 17 (6-20) Glucose Level 101 mg/dL (70-99) Calcium Level 9.1 mg/dL (8.5-10.1) Total Bilirubin 1.9 mg/dL (0.2-1.0) Aspartate Amino Transf (AST/SGOT) 19 U/L (15-37) Alanine Aminotransferase (ALT/SGPT) 59 U/L (16-63) Alkaline Phosphatase 80 U/L (46-116) Total Protein 6.4 g/dL (6.4-8.2) Albumin 2.1 g/dL (3.4-5.0) Albumin/Globulin Ratio 0.5 (1.0-1.7) Microbiology 03/11/19 - Final, Resulted 03/11/19 - Final, Resulted 03/11/19 - Final, Resulted 03/11/19 Gram Stain Evaluation - Final, Resulted 03/11/19 Sputum Culture, Resulted Pending 03/10/19 Blood Culture - Final, Complete 03/09/19 Urine Culture - Final, Complete 03/09/19 Urine Culture Result 1 (WIL) - Final, Complete Medications Current Medications Albuterol/ Ipratropium (Duoneb) 3 ml 1X ONCE NEB Last administered on 03/09/19at 21:21; Start 03/09/19 at 21:30; Stop 03/09/19 at 21:31; Status DC Dexamethasone Sodium Phosphate (Decadron) 10 mg 1X ONCE IV Last administered on 03/09/19at 22:29; Start 03/09/19 at 22:00; Stop 03/09/19 at 22:01; Status DC Propofol 100 ml @ 0 mls/hr CONT PRN IV SEE PROTOCOL Last administered on 03/10/19at 07:19; Start 03/09/19 at 22:30; Stop 03/10/19 at 07:28; Status DC Fentanyl Citrate (Fentanyl 2ml Vial) 50 mcg PRN Q1HR PRN IV SEE COMMENTS; Start 03/09/19 at 22:30; Stop 03/10/19 at 07:28; Status DC Chlorhexidine Gluconate (Peridex) 15 ml BID MM Last administered on 03/15/19 08:00; Start 03/10/19 at 09:00 Famotidine (Pepcid Vial) 20 mg BID IVP Last administered on 03/15/19at 08:02; Start 03/10/19 at 09:00 Propofol 50 ml @ As Directed STK-MED ONCE IV ; Start 03/09/19 at 22:28; Stop 03/09/19 at 22:28; Status DC Albuterol/ Ipratropium (Duoneb) 3 ml 1X ONCE NEB Last administered on 03/10/19at 02:04; Start 03/09/19 at 23:00; Stop 03/09/19 at 23:01; Status DC Albuterol/ Ipratropium (Duoneb) 3 ml 1X ONCE NEB Last administered on 03/10/19at 02:04; Start 03/09/19 at 23:00; Stop 03/09/19 at 23:01; Status DC Fentanyl Citrate (Fentanyl 2ml Vial) 100 mcg 1X ONCE IV Last administered on 03/09/19at 23:31; Start 03/09/19 at 23:30; Stop 03/09/19 at 23:31; Status DC Bumetanide (Bumex) 1 mg 1X ONCE IV Last administered on 03/10/19at 00:21; Start 03/10/19 at 00:00; Stop 03/10/19 at 00:01; Status DC Heparin Sodium (Porcine) (Heparin Sodium) 4,000 unit 1X ONCE IV Last a dministered on 03/10/19at 00:31; Start 03/10/19 at 00:00; Stop 03/10/19 at 00:01; Status DC Heparin Sodium/ Dextrose 500 ml @ 0 mls/hr CONT PRN IV PER PROTOCOL Last administered on 03/10/19at 23:34; Start 03/09/19 at 23:45; Stop 03/11/19 at 16:13; Status DC Heparin Sodium (Porcine) (Heparin Sodium) 5,500 unit PRN Q6HRS PRN IV FOR UFH LEVEL LESS THAN 0.2 Last administered on 03/11/19at 00:57; Start 03/09/19 at 23:45; Stop 03/11/19 at 16:13; Status DC Aspirin (Aspirin Rectal Supp) 300 mg 1X ONCE SD Last administered on 03/10/19at 03:42; Start 03/10/19 at 00:00; Stop 03/10/19 at 00:01; Status DC Propofol 50 ml @ As Directed STK-MED ONCE IV ; Start 03/09/19 at 23:38; Stop 03/09/19 at 23:38; Status DC Propofol 50 ml @ As Directed STK-MED ONCE IV ; Start 03/09/19 at 23:38; Stop 03/09/19 at 23:38; Status DC Piperacillin Sod/ Tazobactam Sod 4.5 gm/Sodium Chloride 100 ml @ 200 mls/hr 1X ONCE IV Last administered on 03/10/19at 05:19; Start 03/10/19 at 00:30; Stop 03/10/19 at 00:59; Status DC Propofol 50 ml @ As Directed STK-MED ONCE IV ; Start 03/10/19 at 00:51; Stop 03/10/19 at 00:51; Status DC Propofol 50 ml @ As Directed STK-MED ONCE IV ; Start 03/10/19 at 01:14; Stop 03/10/19 at 01:15; Status DC Fentanyl Citrate (Fentanyl 2ml Vial) 100 mcg 1X ONCE IV Last administered on 03/10/19at 01:26; Start 03/10/19 at 01:45; Stop 03/10/19 at 01:46; Status DC Clonidine HCl (Catapres) 0.1 mg 1X ONCE PO ; Start 03/10/19 at 01:30; Stop 03/10/19 at 01:34; Status DC Midazolam HCl (Versed) 5 mg 1X ONCE IV Last administered on 03/10/19at 01:28; Start 03/10/19 at 01:30; Stop 03/10/19 at 01:34; Status DC Propofol 50 ml @ As Directed STK-MED ONCE IV ; Start 03/10/19 at 02:08; Stop 03/10/19 at 02:09; Status DC Propofol 50 ml @ As Directed STK-MED ONCE IV ; Start 03/10/19 at 02:36; Stop 03/10/19 at 02:36; Status DC Rocuronium Tobias (Zemuron) 50 mg STK-MED ONCE .ROUTE ; Start 03/10/19 at 05:15; Stop 03/10/19 at 05:15; Status DC Etomidate (Amidate) 20 mg STK-MED ONCE IV ; Start 03/10/19 at 05:15; Stop 03/10/19 at 05:16; Status DC Fentanyl Citrate 30 ml @ 0 mls/hr CONT PRN IV SEE PROTOCOL Last administered on 03/15/19at 01:23; Start 03/10/19 at 07:30 Propofol 100 ml @ 0 mls/hr CONT PRN IV SEE PROTOCOL; Start 03/10/19 at 07:30 Fentanyl Citrate (Fentanyl 2ml Vial) 25 mcg PRN Q1HR PRN IV SEE COMMENTS; Start 03/10/19 at 07:30 Fentanyl Citrate (Fentanyl 2ml Vial) 50 mcg PRN Q1HR PRN IV SEE COMMENTS; Start 03/10/19 at 07:30 Artificial Tears (Artificial Tears) 1 drop PRN Q1HR PRN OU DRY EYE Last administered on 03/13/19at 13:32; Start 03/10/19 at 07:30 Famotidine (Pepcid Vial) 20 mg BID IVP ; Start 03/10/19 at 09:00; Status UNV Morphine Sulfate (Morphine Sulfate) 2 mg PRN Q1HR PRN IV SEE COMMENTS.; Start 03/10/19 at 07:30 Morphine Sulfate (Morphine Sulfate) 4 mg PRN Q1HR PRN IV SEE COMMENTS.; Start 03/10/19 at 07:30 Midazolam HCl 100 ml @ 0 mls/hr CONT PRN IV SEE PROTOCOL Last administered on 03/15/19at 05:13; Start 03/10/19 at 07:30 Levofloxacin/ Dextrose (Levaquin Per Pharmacy) 1 each PRN DAILY PRN MC SEE COMMENTS; Start 03/10/19 at 08:15; Stop 03/14/19 at 09:25; Status DC Albuterol/ Ipratropium (Duoneb) 3 ml RTQID NEB Last administered on 03/15/19at 09:07; Start 03/10/19 at 12:00 Sodium Chloride 1,000 ml @ 100 mls/hr Q10H IV Last administered on 03/10/19at 23:34; Start 03/10/19 at 08:15; Stop 03/11/19 at 16:02; Status DC Amlodipine Besylate (Norvasc) 5 mg DAILY PO Last administered on 03/10/19at 09:13; Start 03/10/19 at 09:00; Stop 03/10/19 at 10:04; Status DC Hydrochlorothiazide (Hydrodiuril) 25 mg DAILY PO Last administered on 03/10/19at 09:13; Start 03/10/19 at 09:00; Stop 03/10/19 at 10:04; Status DC Lisinopril (Prinivil) 5 mg DAILY PO Last administered on 03/10/19at 09:13; Start 03/10/19 at 09:00; Stop 03/10/19 at 10:04; Status DC Levofloxacin/ Dextrose 100 ml @ 100 mls/hr Q24H IV Last administered on 03/14/19at 08:10; Start 03/10/19 at 09:00; Stop 03/14/19 at 09:25; Status DC Aspirin (Amanda Aspirin) 325 mg 1X ONCE PO Last administered on 03/10/19at 10:55; Start 03/10/19 at 10:30; Stop 03/10/19 at 10:31; Status DC Aspirin (Children'S Aspirin) 81 mg DAILYWBKFT PO Last administered on 03/15/19at 07:37; Start 03/11/19 at 08:00 Amlodipine Besylate (Norvasc) 10 mg DAILY PO Last administered on 03/11/19at 09:37; Start 03/11/19 at 09:00; Stop 03/11/19 at 12:50; Status DC Hydralazine HCl (Apresoline Inj) 10 mg PRN Q4HRS PRN IVP ELEVATED BP, SEE CO MMENTS; Start 03/10/19 at 10:15; Stop 03/12/19 at 09:37; Status DC Furosemide (Lasix) 40 mg DAILY IVP Last administered on 03/11/19at 09:37; Start 03/10/19 at 11:00; Stop 03/11/19 at 11:24; Status DC Insulin Human Lispro (HumaLOG) 0-9 UNITS TIDWMEALS SQ ; Start 03/10/19 at 12:00; Stop 03/10/19 at 17:57; Status DC Dextrose (Dextrose 50%-Water Syringe) 12.5 gm PRN Q15MIN PRN IV SEE COMMENTS; Start 03/10/19 at 11:15; Stop 03/12/19 at 16:47; Status DC Dextrose 250 ml PRN Q15MIN PRN IV SEE COMMENTS; Start 03/10/19 at 11:15; Stop 03/10/19 at 11:05; Status DC Iohexol (Omnipaque 350 Mg/ml) 100 ml 1X ONCE IV Last administered on 03/10/19at 14:05; Start 03/10/19 at 11:45; Stop 03/10/19 at 11:47; Status DC Info (CONTRAST GIVEN -- Rx MONITORING) 1 each PRN DAILY PRN MC SEE COMMENTS; Start 03/10/19 at 11:45; Stop 03/12/19 at 11:44; Status DC Piperacillin Sod/ Tazobactam Sod (Zosyn Per Pharmacy) 1 each PRN DAILY PRN MC SEE COMMENTS; Start 03/10/19 at 11:45 Vancomycin HCl (Vanco Per Pharmacy) 1 each PRN DAILY PRN MC SEE COMMENTS Last administered on 03/11/19at 09:42; Start 03/10/19 at 11:45; Stop 03/11/19 at 13:57; Status DC Vancomycin HCl 2 gm/Sodium Chloride 500 ml @ 250 mls/hr 1X ONCE IV Last administered on 03/10/19at 12:41; Start 03/10/19 at 13:00; Stop 03/10/19 at 14:59; Status DC Piperacillin Sod/ Tazobactam Sod 3.375 gm/Sodium Chloride 50 ml @ 100 mls/hr Q6HRS IV Last administered on 03/15/19at 05:57; Start 03/10/19 at 12:30 Vancomycin HCl 1.75 gm/Sodium Chloride 500 ml @ 250 mls/hr Q12H IV Last administered on 03/11/19at 12:43; Start 03/11/19 at 01:00; Stop 03/11/19 at 13:57; Status DC Vancomycin HCl (Vancomycin Trough Level) 1 each 1X ONCE MC ; Start 03/12/19 at 12:30; Stop 03/12/19 at 12:31; Status Cancel Insulin Human Lispro (HumaLOG) 0-9 UNITS Q6HRS SQ ; Start 03/11/19 at 00:00; Stop 03/12/19 at 16:14; Status DC Magnesium Sulfate/ Dextrose 100 ml @ 50 mls/hr DAILY IV Last administered on 03/11/19at 09:28; Start 03/11/19 at 09:00; Stop 03/14/19 at 08:59; Status DC Potassium Phosphate 27.2 mmol/Sodium Chloride 259.0667 ml @ 64.753 m... 1X ONCE IV Last administered on 03/11/19at 09:28; Start 03/11/19 at 10:00; Stop 03/11/19 at 14:00; Status DC Potassium Phosphate 27.2 mmol/Sodium Chloride 259.0667 ml @ 64.753 m... 1X ONCE IV ; Start 03/11/19 at 14:00; Stop 03/11/19 at 18:00; Status DC Lorazepam (Ativan Inj) 1 mg PRN Q1HR PRN IV ANXIETY / AGITATION Last administered on 03/14/19at 16:32; Start 03/11/19 at 11:00 Sodium Chloride 1,000 ml @ 1,000 mls/hr 1X ONCE IV Last administered on 03/11/19at 12:06; Start 03/11/19 at 11:30; Stop 03/11/19 at 12:29; Status DC Norepinephrine Bitartrate 250 ml @ 27.837 mls/ hr CONT PRN IV SEE I/O RECORD Last administered on 03/13/19at 04:13; Start 03/11/19 at 13:00 Hydralazine HCl (Apresoline Inj) 10 mg PRN Q4HRS PRN IVP ELEVATED BP, SEE COMMENTS; Start 03/11/19 at 13:00 Linezolid/Dextrose 300 ml @ 300 mls/hr Q12HR IV Last administered on 03/15/19at 08:02; Start 03/11/19 at 21:00 Potassium Chloride/Water 50 ml @ 50 mls/hr Q1H IV Last administered on 03/11/19at 17:28; Start 03/11/19 at 16:00; Stop 03/11/19 at 17:59; Status DC Heparin Sodium (Porcine) (Heparin Sodium) 5,000 unit Q8HRS SQ Last administered on 03/15/19at 05:57; Start 03/11/19 at 22:00 Multi-Ingred Cream/Lotion/Oil/ Oint (Artificial Tears Eye Ointment) 1 zuri PRN Q1HR PRN OU DRY EYE; Start 03/12/19 at 09:00 Potassium Chloride/Water 50 ml @ 50 mls/hr 1X ONCE IV Last administered on 03/12/19at 09:44; Start 03/12/19 at 10:00; Stop 03/12/19 at 10:59; Status DC Potassium Chloride/Water 50 ml @ 50 mls/hr 1X ONCE IV ; Start 03/12/19 at 10:30; Stop 03/12/19 at 11:31; Status DC Insulin Human Lispro (HumaLOG) 0-9 UNITS TIDWMEALS SQ ; Start 03/12/19 at 17:00; Stop 03/12/19 at 16:24; Status DC Dextrose (Dextrose 50%-Water Syringe) 12.5 gm PRN Q15MIN PRN IV SEE COMMENTS; Start 03/12/19 at 16:15 Dextrose 250 ml PRN Q15MIN PRN IV SEE COMMENTS; Start 03/12/19 at 16:15 Insulin Human Lispro (HumaLOG) 0-9 UNITS Q6HRS SQ ; Start 03/12/19 at 18:00 Dexmedetomidine HCl 400 mcg/ Sodium Chloride 100 ml @ 0 mls/hr CONT PRN IV ANXIETY / AGITATION Last administered on 03/15/19at 08:00; Start 03/12/19 at 20:30 Sodium Chloride 500 ml @ 500 mls/hr 1X PRN PRN IV AGITATION Last administered on 03/12/19at 23:22; Start 03/12/19 at 20:30 Atropine Sulfate (ATROPINE 0.5mg SYRINGE) 0.5 mg PRN Q5MIN PRN IV SEE COMMENTS; Start 03/12/19 at 20:30 Vecuronium Tobias (Norcuron Bolus) 10 mg PRN Q1HR PRN IV ON VENT/RESP FAILURE; Start 03/13/19 at 07:30 Perflutren Protein Type A Microsphe (Optison) 0.66 mg STK-MED ONCE IV ; Start 03/13/19 at 09:08; Stop 03/13/19 at 09:08; Status DC Perflutren Protein Type A Microsphe (Optison) 0.66 mg 1X ONCE IV Last administered on 03/13/19at 09:40; Start 03/13/19 at 09:15; Stop 03/13/19 at 09:16; Status DC Furosemide (Lasix) 40 mg 1X ONCE IVP Last administered on 03/13/19at 13:32; Start 03/13/19 at 10:30; Stop 03/13/19 at 10:31; Status DC Active Scripts Active Norvasc (Amlodipine Besylate) 5 Mg Tablet 1 Tab PO DAILY Lisinopril 5 Mg Tablet 1 Tab PO DAILY Reported Hydrochlorothiazide Tablet (Hydrochlorothiazide) 25 Mg Tablet 25 Mg PO DAILY Vitals/I & O Vital Sign - Last 24 Hours 03/14/19 03/14/19 03/14/19 03/14/19 09:18 10:00 11:00 11:38 Pulse 77 79 Resp 28 28 B/P (MAP) 115/77 (90) 115/80 (92) Pulse Ox 93 93 93 92 O2 Delivery Ventilator Ventilator Ventilator Ventilator 03/14/19 03/14/19 03/14/19 03/14/19 12:00 12:00 13:00 13:09 Temp 100.7 100.7 Pulse 80 92 Resp 15 22 B/P (MAP) 107/72 (84) 127/83 (98) Pulse Ox 94 94 92 O2 Delivery Mechanical Ventilator Ventilator Ventilator Ventilator 03/14/19 03/14/19 03/14/19 03/14/19 13:19 14:00 15:00 15:35 Pulse 87 85 Resp 16 18 19 18 B/P (MAP) 120/87 (98) 123/84 (97) Pulse Ox 93 96 95 96 O2 Delivery Ventilator Ventilator Ventilator Ventilator 03/14/19 03/14/19 03/14/19 03/14/19 15:38 16:00 16:00 17:00 Temp 99.5 99.5 Pulse 78 79 Resp 16 16 B/P (MAP) 112/77 (89) 134/83 (100) Pulse Ox 95 96 97 O2 Delivery Ventilator Mechanical Ventilator Ventilator Ventilator 03/14/19 03/14/19 03/14/19 03/14/19 17:45 18:00 19:00 19:36 Pulse 73 74 Resp 16 18 B/P (MAP) 104/67 (79) 108/70 (83) Pulse Ox 92 95 95 O2 Delivery Ventilator Ventilator Ventilator Mechanical Ventilator 03/14/19 03/14/19 03/14/19 03/14/19 20:00 20:22 21:00 22:00 Temp 99.1 99.1 Pulse 74 77 75 Resp 20 18 16 B/P (MAP) 103/65 (78) 102/66 (78) 119/82 (94) Pulse Ox 92 95 94 90 O2 Delivery Ventilator Ventilator Ventilator Ventilator 03/14/19 03/14/19 03/14/19 03/15/19 23:00 23:57 23:59 00:00 Temp 98.9 98.9 Pulse 74 73 Resp 19 20 B/P (MAP) 98/63 (75) 104/71 (82) Pulse Ox 92 92 91 O2 Delivery Ventilator Ventilator Mechanical Ventilator Ventilator 03/15/19 03/15/19 03/15/19 03/15/19 01:00 02:00 03:00 03:25 Pulse 72 74 72 Resp 19 16 18 B/P (MAP) 106/71 (83) 102/72 (82) 103/68 (80) Pulse Ox 93 92 92 93 O2 Delivery Ventilator Ventilator Ventilator Ventilator 03/15/19 03/15/19 03/15/19 03/15/19 04:00 04:00 05:00 06:00 Temp 98.8 98.8 Pulse 75 74 80 Resp 21 18 20 B/P (MAP) 100/60 (73) 105/69 (81) 116/74 (88) Pulse Ox 96 95 88 O2 Delivery Mechanical Ventilator Ventilator Ventilator Ventilator 03/15/19 03/15/19 03/15/19 03/15/19 07:00 08:00 08:00 09:00 Temp 99.8 99.8 Pulse 77 73 72 Resp 28 28 26 B/P (MAP) 114/78 (90) 116/78 (91) 111/75 (87) Pulse Ox 89 94 94 O2 Delivery Ventilator Ventilator Mechanical Ventilator Ventilator 03/15/19 09:07 Pulse Ox 95 O2 Delivery Ventilator Intake and Output 03/14/19 03/14/19 03/15/19 14:59 22:59 06:59 Intake Total 450 ml 1676.00 ml 2263 ml Output Total 790 ml 570 ml 580 ml Balance -340 ml 1106.00 ml 1683 ml PRICILA GOMEZ MD Mar 15, 2019 09:14
[2019-03-15 09:27] LABS: BASE EXCESS ABG 4 mmol/L (-3-3); HCO3 ABG 30 mmol/L (21-28); PCO2 ABG 48 mmHg (35-46); PO2 ABG 64 mmHg (75-108); SAT O2 ABG 92 % (92-99)
[2019-03-15 09:35] LABS: FIO2 ABG 100
[2019-03-15] MEDS ORDERED: NORMAL SALINE IV ONE (13:00)
[2019-03-15] MEDS ORDERED: DAPTOMYCIN IV ONE (13:00)
[2019-03-16] VITALS (24 sets, daily range): BP systolic 97–142; BP diastolic 48–103
[2019-03-16] MEDS: PIPERACILLIN/TAZOBACTAM 3.375 GM in IV NORMAL SALINE 50ML 50 ML IV SCH ×4 (00:04→16:43)
[2019-03-16] MEDS: INSULIN LISPRO 300 UNITS/3 ML VIAL. SQ SCH ×4 (00:21→16:52)
[2019-03-16] MEDS: DEXMEDETOMIDINE 400 MCG in IV NORMAL SALINE 100ML 96 ML IV PRN ×7 (01:39→20:58)
[2019-03-16] MEDS: MIDAZOLAM 100mg/100ml NS BAG 100 ML IV PRN ×2 (04:45→14:30)
--- NOTE | 2019-03-16 05:23 | RAD ---
PORTABLE CHEST 1V INDICATION: Intubated. COMPARISON STUDY: 03/14/2019. FINDINGS: Life Support Devices: Stable life support devices. Lungs: Low lung volume. Multifocal bilateral heterogeneous opacities, progressed on the left. Stable pulmonary vasculature. Pleura: Stable small bilateral pleural effusions. Heart and Mediastinum: Stable cardiomediastinal silhouette and great vessels. IMPRESSION: 1. Multifocal bilateral heterogeneous opacities, progressed on the left. 2. Stable small bilateral pleural effusions. 3. Stable life support devices. Electronically signed by: Goran Salinas MD (03/16/2019 5:20 AM) [id number]
[2019-03-16] MEDS: HEPARIN for SUB-Q USE 5,000 UNIT/ML VIAL. SQ SCH ×3 (06:03→21:16)
[2019-03-16 06:38] LABS: CALCIUM 9.2 mg/dL (8.5-10.1); CREATININE 1.4 mg/dL (0.7-1.3); GFR 65.4; POTASSIUM 4.5 mmol/L (3.5-5.1)
[2019-03-16 06:51] LABS: BASO # 0.1 x10^3/uL (0.0-0.2); BASO % 0 % (0-3); EOS # 0.6 x10^3/uL (0.0-0.7); EOS % 4 % (0-3); HEMATOCRIT 38.7 % (39.0-53.0); HEMOGLOBIN 11.9 g/dL (13.0-17.5); LYMPH # 0.7 x10^3/uL (1.0-4.8); LYMPH % 5 % (24-48); MEAN CORPUSCULAR HEMOGLOBIN 24 pg (25-35); MEAN CORPUSCULAR HGB CONC 31 g/dL (31-37); MEAN CORPUSCULAR VOLUME 79 fL (79-100); MONO # 1.4 x10^3/uL (0.0-1.1); MONO % 10 % (0-9); NEUT % 80 % (31-73); PLATELET COUNT 174 x10^3/uL (140-400); RED CELL DISTRIBUTION WIDTH 18.7 % (11.5-14.5); WHITE BLOOD COUNT 13.7 x10^3/uL (4.0-11.0)
[2019-03-16] MEDS: CHLORHEXIDINE 0.12% 15 ML MOUTHWASH. MM SCH ×2 (07:31→20:57)
[2019-03-16] MEDS: IPRATRPIUM/ALBUTEROL 0.5/2.5MG 3 ML NEBU. NEB SCH ×4 (08:17→19:51)
[2019-03-16 08:37] LABS: BASE EXCESS ABG 3 mmol/L (-3-3); HCO3 ABG 29 mmol/L (21-28); PCO2 ABG 49 mmHg (35-46); PO2 ABG 67 mmHg (75-108); SAT O2 ABG 92 % (92-99)
[2019-03-16 08:38] LABS: FIO2 ABG 100
--- NOTE | 2019-03-16 08:40 | PDOC ---
Infectious Disease Note Subjective: Subjective Sedated Orally intubated, low grade fevers ROS: ROS unable to obtain Vital Signs: Vital Signs Vital Signs Date Time Temp Pulse Resp B/P (MAP) Pulse Ox O2 Delivery O2 Flow Rate FiO2 03/16/19 06:00 76 20 101/61 (74) 94 Ventilator 03/16/19 05:00 100.1 100.1 Physical Exam: PHYSICAL EXAM GENERAL: Orally intubated and sedated. HEENT: Pupils equal, small. OGT/ETT NECK: Supple LUNGS: dec bs at bases HEART: S1 and S2, regular. ABDOMEN: Obese, soft, +BS : Ramos in place EXTREMITIES: Trace edema - MITTS SKIN: Chronic stasis dermatitis on the lower extremity. NEUROLOGIC: Sedated RIJ clean Medications: Inpatient Meds: Current Medications Medications (Trade) Dose Ordered Sig/Stefanie Start Time Stop Time Status Last Admin Dose Admin Albuterol/ Ipratropium (Duoneb) 3 ml RTQID 03/10/19 12:00 03/16/19 08:17 Amlodipine Besylate (Norvasc) 10 mg DAILY 03/11/19 09:00 03/11/19 12:50 DC 03/11/19 09:37 Artificial Tears (Artificial Tears) 1 drop PRN Q1HR PRN 03/10/19 07:30 03/13/19 13:32 Aspirin (Aspirin Rectal Supp) 300 mg 1X ONCE 03/10/19 00:00 03/10/19 00:01 DC 03/10/19 03:42 Aspirin (Amanda Aspirin) 325 mg 1X ONCE 03/10/19 10:30 03/10/19 10:31 DC 03/10/19 10:55 Aspirin (Children'S Aspirin) 81 mg DAILYWBKFT 03/11/19 08:00 03/15/19 07:37 Atropine Sulfate (ATROPINE 0.5mg SYRINGE) 0.5 mg PRN Q5MIN PRN 03/12/19 20:30 Bumetanide (Bumex) 1 mg 1X ONCE 03/10/19 00:00 03/10/19 00:01 DC 03/10/19 00:21 Chlorhexidine Gluconate (Peridex) 15 ml BID 03/10/19 09:00 03/15/19 21:03 Clonidine HCl (Catapres) 0.1 mg 1X ONCE 03/10/19 01:30 03/10/19 01:34 DC Daptomycin 1320 mg/Sodium Chloride 50 ml @ 100 mls/hr ONCE ONCE 03/15/19 13:00 03/15/19 13:29 DC 03/15/19 13:53 Dexamethasone Sodium Phosphate (Decadron) 10 mg 1X ONCE 03/09/19 22:00 03/09/19 22:01 DC 03/09/19 22:29 Dexmedetomidine HCl 400 mcg/ Sodium Chloride 100 ml @ 0 mls/hr CONT PRN 03/12/19 20:30 03/16/19 05:26 Dextrose 250 ml PRN Q15MIN PRN 03/12/19 16:15 Dextrose (Dextrose 50%-Water Syringe) 12.5 gm PRN Q15MIN PRN 03/12/19 16:15 Etomidate (Amidate) 20 mg STK-MED ONCE 03/10/19 05:15 03/10/19 05:16 DC Famotidine (Pepcid Vial) 20 mg BID 03/10/19 09:00 UNV Fentanyl Citrate (Fentanyl 2ml Vial) 50 mcg PRN Q1HR PRN 03/10/19 07:30 Furosemide (Lasix) 40 mg 1X ONCE 03/13/19 10:30 03/13/19 10:31 DC 03/13/19 13:32 Heparin Sodium (Porcine) (Heparin Sodium) 5,000 unit Q8HRS 03/11/19 22:00 03/16/19 06:03 Heparin Sodium/ Dextrose 500 ml @ 0 mls/hr CONT PRN 03/09/19 23:45 03/11/19 16:13 DC 03/10/19 23:34 Hydralazine HCl (Apresoline Inj) 10 mg PRN Q4HRS PRN 03/11/19 13:00 Hydrochlorothiazide (Hydrodiuril) 25 mg DAILY 03/10/19 09:00 03/10/19 10:04 DC 03/10/19 09:13 Info (CONTRAST GIVEN -- Rx MONITORING) 1 each PRN DAILY PRN 03/10/19 11:45 03/12/19 11:44 DC Insulin Human Lispro (HumaLOG) 0-9 UNITS Q6HRS 03/12/19 18:00 Iohexol (Omnipaque 350 Mg/ml) 100 ml 1X ONCE 03/10/19 11:45 03/10/19 11:47 DC 03/10/19 14:05 Levofloxacin/ Dextrose 100 ml @ 100 mls/hr Q24H 03/10/19 09:00 03/14/19 09:25 DC 03/14/19 08:10 Levofloxacin/ Dextrose (Levaquin Per Pharmacy) 1 each PRN DAILY PRN 03/10/19 08:15 03/14/19 09:25 DC Linezolid/Dextrose 300 ml @ 300 mls/hr Q12HR 03/11/19 21:00 03/15/19 21:03 Lisinopril (Prinivil) 5 mg DAILY 03/10/19 09:00 03/10/19 10:04 DC 03/10/19 09:13 Lorazepam (Ativan Inj) 1 mg PRN Q1HR PRN 03/11/19 11:00 03/14/19 16:32 Magnesium Sulfate/ Dextrose 100 ml @ 50 mls/hr DAILY 03/11/19 09:00 03/14/19 08:59 DC 03/11/19 09:28 Midazolam HCl 100 ml @ 0 mls/hr CONT PRN 03/10/19 07:30 03/16/19 04:45 Midazolam HCl (Versed) 5 mg 1X ONCE 03/10/19 01:30 03/10/19 01:34 DC 03/10/19 01:28 Morphine Sulfate (Morphine Sulfate) 4 mg PRN Q1HR PRN 03/10/19 07:30 Multi-Ingred Cream/Lotion/Oil/ Oint (Artificial Tears Eye Ointment) 1 zuri PRN Q1HR PRN 03/12/19 09:00 Norepinephrine Bitartrate 250 ml @ 27.837 mls/ hr CONT PRN 03/11/19 13:00 03/13/19 04:13 Perflutren Protein Type A Microsphe (Optison) 0.66 mg 1X ONCE 03/13/19 09:15 03/13/19 09:16 DC 03/13/19 09:40 Piperacillin Sod/ Tazobactam Sod (Zosyn Per Pharmacy) 1 each PRN DAILY PRN 03/10/19 11:45 Piperacillin Sod/ Tazobactam Sod 3.375 gm/Sodium Chloride 50 ml @ 100 mls/hr Q6HRS 03/10/19 12:30 03/16/19 06:03 Piperacillin Sod/ Tazobactam Sod 4.5 gm/Sodium Chloride 100 ml @ 200 mls/hr 1X ONCE 03/10/19 00:30 03/10/19 00:59 DC 03/10/19 05:19 Potassium Chloride/Water 50 ml @ 50 mls/hr 1X ONCE 03/12/19 10:30 03/12/19 11:31 DC Potassium Phosphate 27.2 mmol/Sodium Chloride 259.0667 ml @ 64.753 m... 1X ONCE 03/11/19 14:00 03/11/19 18:00 DC Propofol 100 ml @ 0 mls/hr CONT PRN 03/10/19 07:30 Rocuronium [place] (Zemuron) 50 mg STK-MED ONCE 03/10/19 05:15 03/10/19 05:15 DC Sodium Chloride 500 ml @ 500 mls/hr 1X PRN PRN 03/12/19 20:30 03/12/19 23:22 Vancomycin HCl (Vanco Per Pharmacy) 1 each PRN DAILY PRN 03/10/19 11:45 03/11/19 13:57 DC 03/11/19 09:42 Vancomycin HCl (Vancomycin Trough Level) 1 each 1X ONCE 03/12/19 12:30 03/12/19 12:31 Cancel Vancomycin HCl 1.75 gm/Sodium Chloride 500 ml @ 250 mls/hr Q12H 03/11/19 01:00 03/11/19 13:57 DC 03/11/19 12:43 Vancomycin HCl 2 gm/Sodium Chloride 500 ml @ 250 mls/hr 1X ONCE 03/10/19 13:00 03/10/19 14:59 DC 03/10/19 12:41 Vecuronium [place] (Norcuron Bolus) 10 mg PRN Q1HR PRN 03/13/19 07:30 Labs: Lab Laboratory Tests Test 03/15/19 11:26 03/15/19 17:49 03/16/19 00:20 03/16/19 05:30 Glucose (Fingerstick) 107 mg/dL (70-99) 107 mg/dL (70-99) 106 mg/dL (70-99) White Blood Count 13.7 x10^3/uL (4.0-11.0) Red Blood Count 4.90 x10^6/uL (4.30-5.70) Hemoglobin 11.9 g/dL (13.0-17.5) Hematocrit 38.7 % (39.0-53.0) Mean Corpuscular Volume 79 fL (79-100) Mean Corpuscular Hemoglobin 24 pg (25-35) Mean Corpuscular Hemoglobin Concent 31 g/dL (31-37) Red Cell Distribution Width 18.7 % (11.5-14.5) Platelet Count 174 x10^3/uL (140-400) Neutrophils (%) (Auto) 80 % (31-73) Lymphocytes (%) (Auto) 5 % (24-48) Monocytes (%) (Auto) 10 % (0-9) Eosinophils (%) (Auto) 4 % (0-3) Basophils (%) (Auto) 0 % (0-3) Neutrophils # (Auto) 11.0 x10^3/uL (1.8-7.7) Lymphocytes # (Auto) 0.7 x10^3/uL (1.0-4.8) Monocytes # (Auto) 1.4 x10^3/uL (0.0-1.1) Eosinophils # (Auto) 0.6 x10^3/uL (0.0-0.7) Basophils # (Auto) 0.1 x10^3/uL (0.0-0.2) Sodium Level 138 mmol/L (136-145) Potassium Level 4.5 mmol/L (3.5-5.1) Chloride Level 101 mmol/L (98-107) Carbon Dioxide Level 32 mmol/L (21-32) Anion Gap 5 (6-14) Blood Urea Nitrogen 28 mg/dL (8-26) Creatinine 1.4 mg/dL (0.7-1.3) Estimated GFR (Cockcroft-Gault) 65.4 Glucose Level 107 mg/dL (70-99) Calcium Level 9.2 mg/dL (8.5-10.1) Test 03/16/19 05:53 Glucose (Fingerstick) 108 mg/dL (70-99) Objective: Assessment: GPC bacteremia (1 of 4 bottles), 03/10,ID still pending Pulmonary infiltrate - GPC on gram stain, 03/11 Leukocytosis - up today 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 Redose Dapto times one today off Levaquin Dose dexamethasone, 03/09 f/u sputum culture and labs in am send sputum and bc today if has diarrhea check c diff pcr D/w nursing Critically ill overall prognosis poor LINO TABOR MD Mar 16, 2019 08:40
[2019-03-16] MEDS ORDERED: NORMAL SALINE IV SCH ×2 (08:45→09:00)
[2019-03-16] MEDS ORDERED: DAPTOMYCIN IV SCH ×2 (08:45→09:00)
[2019-03-16] MEDS: ASPIRIN CHEWABLE 81 MG TABLET. PO SCH (08:51)
[2019-03-16] MEDS: FAMOTIDINE 20 MG/2 ML VIAL IVP SCH ×2 (08:51→20:57)
--- NOTE | 2019-03-16 11:05 | PDOC ---
PROGRESS NOTES History of Present Illness History of Present Illness VTE Prophylaxis Ordered VTE Prophylaxis Devices: Yes VTE Pharmacological Prophylaxi: Yes Assessment/Plan Assessment/Plan Acute mixed hypoxic, hypercapnic respiratory failure-CO2 was 127 with a pH of 7.1 on arrival Morbid obesity BMI 42 Severe COPD exacerbation, COPD or on 2-3 L nasal cannula-home dependent 02 History of CHF and diabetes mellitus per documentation SIRS POA, no consulted process on chest x-ray Troponin elevation in the background of the above medical illnesses Mild hyponatremia 134, reactive leukocytosis AK I VMN creatinine 1.2 Hypertension POA-blood pressure 160s systolic POSSIBLE UTI Continue Zyvox and Zosyn. Redose Dapto times one today 03/16 off Levaquin CTA CHEST Examination is nondiagnostic for pulmonary embolism as there is not enough contrast within the pulmonary artery and its branches. Moderate bibasilar lung consolidation disease with air bronchograms likely pneumonia or atelectasis with small bilateral pleural effusions. Aneurysmal change of the ascending aorta Mediastinal and hilar contours are grossly stable. Bilateral airspace opacities have improved with improved aeration particularly in the left midlung. Small bilateral pleural effusions. No definite pneumothorax. 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 less likely [id number] right heart failure SEVERE PROTEIN-CALORIC MALNUTRITION Plan ICU Bed, 100% FIO2, 12 of PEEP Needing max amount of oxygen and high PEEP c/w shunt physiology due to ARDS Pulmonary FOLLOWING consult cardiology PPI DVT prophylaxis Start sliding scale insulin Monitor labs heparin drip by cardiology replace lytes, per protocol d/w RN BY PHONE URINE CULTURE id following blood culture sputum culture procalcitonin cont Continue Zyvox and Zosyn. Dose Dapto times one 03/15, 03/16 overall prognosis poor, consult palliative care for goals of treatment ///FAMILY CALLED CONT FULL CODE FOR NOW cc 33 min Vitals Vitals Vital Signs Date Time Temp Pulse Resp B/P (MAP) Pulse Ox O2 Delivery O2 Flow Rate FiO2 03/16/19 10:52 94 Ventilator 15.0 03/16/19 06:00 76 20 101/61 (74) 03/16/19 05:00 100.1 100.1 Physical Exam Physical Exam GENERAL: Orally intubated and sedated. HEENT: Pupils equal, small. OGT/ETT NECK: Supple LUNGS: dec bs at bases HEART: S1 and S2, regular. ABDOMEN: Obese, soft, +BS : Ramos in place EXTREMITIES: Trace edema - MITTS SKIN: Chronic stasis dermatitis on the lower extremity. NEUROLOGIC: Sedated RIJ clean General: No acute distress, Other (short neck , Mallampati 4 ON VENT) Heart: Regular rate (SR), Other (distante heart sounds) Lungs: Other (decrease bs) Abdomen: Normal bowel sounds, Soft, No tenderness, No hepatosplenomegaly, No masses Extremities: No clubbing, No cyanosis, No edema, Normal pulses, No tenderness/swelling Skin: No rashes, No breakdown, No significant lesion Labs LABS PATIENT: GENESIS TALAVERA ACCT: [id number] LOC: 1 HOOD ICU U: [id number] AGE/SX: 48/M ROOM: 113 RE03/09/[address]: ADELAIDA VALENTINE MD : 1970 BED: 1 DIS: STATUS: ADM IN TLOC: SPEC #: [id number] SHANITA: 03/09/19 STATUS: COMP REQ #: [id number] RECD: 03/09/[address]: WHITNEY HESTER DO SOURCE: BLOOD ENTR: 03/09/[address]: VIDAL MTZ SPDESC: ORDERED: BCULT Procedure Result BLOOD CULTURE Final NO GROWTH AFTER 5 DAYS Laboratory Tests Test 03/15/19 11:26 03/15/19 17:49 03/16/19 00:20 03/16/19 05:30 Glucose (Fingerstick) 107 mg/dL (70-99) 107 mg/dL (70-99) 106 mg/dL (70-99) White Blood Count 13.7 x10^3/uL (4.0-11.0) Red Blood Count 4.90 x10^6/uL (4.30-5.70) Hemoglobin 11.9 g/dL (13.0-17.5) Hematocrit 38.7 % (39.0-53.0) Mean Corpuscular Volume 79 fL (79-100) Mean Corpuscular Hemoglobin 24 pg (25-35) Mean Corpuscular Hemoglobin Concent 31 g/dL (31-37) Red Cell Distribution Width 18.7 % (11.5-14.5) Platelet Count 174 x10^3/uL (140-400) Neutrophils (%) (Auto) 80 % (31-73) Lymphocytes (%) (Auto) 5 % (24-48) Monocytes (%) (Auto) 10 % (0-9) Eosinophils (%) (Auto) 4 % (0-3) Basophils (%) (Auto) 0 % (0-3) Neutrophils # (Auto) 11.0 x10^3/uL (1.8-7.7) Lymphocytes # (Auto) 0.7 x10^3/uL (1.0-4.8) Monocytes # (Auto) 1.4 x10^3/uL (0.0-1.1) Eosinophils # (Auto) 0.6 x10^3/uL (0.0-0.7) Basophils # (Auto) 0.1 x10^3/uL (0.0-0.2) Sodium Level 138 mmol/L (136-145) Potassium Level 4.5 mmol/L (3.5-5.1) Chloride Level 101 mmol/L (98-107) Carbon Dioxide Level 32 mmol/L (21-32) Anion Gap 5 (6-14) Blood Urea Nitrogen 28 mg/dL (8-26) Creatinine 1.4 mg/dL (0.7-1.3) Estimated GFR (Cockcroft-Gault) 65.4 Glucose Level 107 mg/dL (70-99) Calcium Level 9.2 mg/dL (8.5-10.1) Test 03/16/19 05:53 03/16/19 08:10 Glucose (Fingerstick) 108 mg/dL (70-99) O2 Saturation 92 % (92-99) Arterial Blood pH 7.39 (7.35-7.45) Arterial Blood pCO2 at Patient Temp 49 mmHg (35-46) Arterial Blood pO2 at Patient Temp 67 mmHg (75-108) Arterial Blood HCO3 29 mmol/L (21-28) Arterial Blood Base Excess 3 mmol/L (-3-3) FiO2 100 Assessment and Plan Assessmemt and Plan Problems Medical Problems: (1) CHF exacerbation Status: Acute (2) COPD exacerbation Status: Acute (3) Hypoxia Status: Acute (4) NSTEMI (non-ST elevated myocardial infarction) Status: Acute (5) Respiratory failure Status: Acute Comment Review of Relevant I have reviewed the following items peter (where applicable) has been applied. Labs Laboratory Tests Test 03/14/19 17:41 03/14/19 23:24 03/15/19 05:49 03/15/19 05:50 Glucose (Fingerstick) 112 mg/dL (70-99) 100 mg/dL (70-99) 103 mg/dL (70-99) White Blood Count 13.0 x10^3/uL (4.0-11.0) Red Blood Count 5.07 x10^6/uL (4.30-5.70) Hemoglobin 12.2 g/dL (13.0-17.5) Hematocrit 39.9 % (39.0-53.0) Mean Corpuscular Volume 79 fL (79-100) Mean Corpuscular Hemoglobin 24 pg (25-35) Mean Corpuscular Hemoglobin Concent 31 g/dL (31-37) Red Cell Distribution Width 18.9 % (11.5-14.5) Platelet Count 160 x10^3/uL (140-400) Neutrophils (%) (Auto) 80 % (31-73) Lymphocytes (%) (Auto) 6 % (24-48) Monocytes (%) (Auto) 10 % (0-9) Eosinophils (%) (Auto) 4 % (0-3) Basophils (%) (Auto) 1 % (0-3) Neutrophils # (Auto) 10.4 x10^3/uL (1.8-7.7) Lymphocytes # (Auto) 0.7 x10^3/uL (1.0-4.8) Monocytes # (Auto) 1.3 x10^3/uL (0.0-1.1) Eosinophils # (Auto) 0.5 x10^3/uL (0.0-0.7) Basophils # (Auto) 0.1 x10^3/uL (0.0-0.2) Sodium Level 139 mmol/L (136-145) Potassium Level 4.6 mmol/L (3.5-5.1) Chloride Level 102 mmol/L (98-107) Carbon Dioxide Level 32 mmol/L (21-32) Anion Gap 5 (6-14) Blood Urea Nitrogen 27 mg/dL (8-26) Creatinine 1.6 mg/dL (0.7-1.3) Estimated GFR (Cockcroft-Gault) 56.1 BUN/Creatinine Ratio 17 (6-20) Glucose Level 101 mg/dL (70-99) Calcium Level 9.1 mg/dL (8.5-10.1) Total Bilirubin 1.9 mg/dL (0.2-1.0) Aspartate Amino Transf (AST/SGOT) 19 U/L (15-37) Alanine Aminotransferase (ALT/SGPT) 59 U/L (16-63) Alkaline Phosphatase 80 U/L (46-116) Total Protein 6.4 g/dL (6.4-8.2) Albumin 2.1 g/dL (3.4-5.0) Albumin/Globulin Ratio 0.5 (1.0-1.7) Test 03/15/19 08:00 03/15/19 11:26 03/15/19 17:49 03/16/19 00:20 O2 Saturation 92 % (92-99) Arterial Blood pH 7.40 (7.35-7.45) Arterial Blood pCO2 at Patient Temp 48 mmHg (35-46) Arterial Blood pO2 at Patient Temp 64 mmHg (75-108) Arterial Blood HCO3 30 mmol/L (21-28) Arterial Blood Base Excess 4 mmol/L (-3-3) FiO2 100 Glucose (Fingerstick) 107 mg/dL (70-99) 107 mg/dL (70-99) 106 mg/dL (70-99) Test 03/16/19 05:30 03/16/19 05:53 03/16/19 08:10 White Blood Count 13.7 x10^3/uL (4.0-11.0) Red Blood Count 4.90 x10^6/uL (4.30-5.70) Hemoglobin 11.9 g/dL (13.0-17.5) Hematocrit 38.7 % (39.0-53.0) Mean Corpuscular Volume 79 fL (79-100) Mean Corpuscular Hemoglobin 24 pg (25-35) Mean Corpuscular Hemoglobin Concent 31 g/dL (31-37) Red Cell Distribution Width 18.7 % (11.5-14.5) Platelet Count 174 x10^3/uL (140-400) Neutrophils (%) (Auto) 80 % (31-73) Lymphocytes (%) (Auto) 5 % (24-48) Monocytes (%) (Auto) 10 % (0-9) Eosinophils (%) (Auto) 4 % (0-3) Basophils (%) (Auto) 0 % (0-3) Neutrophils # (Auto) 11.0 x10^3/uL (1.8-7.7) Lymphocytes # (Auto) 0.7 x10^3/uL (1.0-4.8) Monocytes # (Auto) 1.4 x10^3/uL (0.0-1.1) Eosinophils # (Auto) 0.6 x10^3/uL (0.0-0.7) Basophils # (Auto) 0.1 x10^3/uL (0.0-0.2) Sodium Level 138 mmol/L (136-145) Potassium Level 4.5 mmol/L (3.5-5.1) Chloride Level 101 mmol/L (98-107) Carbon Dioxide Level 32 mmol/L (21-32) Anion Gap 5 (6-14) Blood Urea Nitrogen 28 mg/dL (8-26) Creatinine 1.4 mg/dL (0.7-1.3) Estimated GFR (Cockcroft-Gault) 65.4 Glucose Level 107 mg/dL (70-99) Calcium Level 9.2 mg/dL (8.5-10.1) Glucose (Fingerstick) 108 mg/dL (70-99) O2 Saturation 92 % (92-99) Arterial Blood pH 7.39 (7.35-7.45) Arterial Blood pCO2 at Patient Temp 49 mmHg (35-46) Arterial Blood pO2 at Patient Temp 67 mmHg (75-108) Arterial Blood HCO3 29 mmol/L (21-28) Arterial Blood Base Excess 3 mmol/L (-3-3) FiO2 100 Laboratory Tests Test 03/15/19 11:26 03/15/19 17:49 03/16/19 00:20 03/16/19 05:30 Glucose (Fingerstick) 107 mg/dL (70-99) 107 mg/dL (70-99) 106 mg/dL (70-99) White Blood Count 13.7 x10^3/uL (4.0-11.0) Red Blood Count 4.90 x10^6/uL (4.30-5.70) Hemoglobin 11.9 g/dL (13.0-17.5) Hematocrit 38.7 % (39.0-53.0) Mean Corpuscular Volume 79 fL (79-100) Mean Corpuscular Hemoglobin 24 pg (25-35) Mean Corpuscular Hemoglobin Concent 31 g/dL (31-37) Red Cell Distribution Width 18.7 % (11.5-14.5) Platelet Count 174 x10^3/uL (140-400) Neutrophils (%) (Auto) 80 % (31-73) Lymphocytes (%) (Auto) 5 % (24-48) Monocytes (%) (Auto) 10 % (0-9) Eosinophils (%) (Auto) 4 % (0-3) Basophils (%) (Auto) 0 % (0-3) Neutrophils # (Auto) 11.0 x10^3/uL (1.8-7.7) Lymphocytes # (Auto) 0.7 x10^3/uL (1.0-4.8) Monocytes # (Auto) 1.4 x10^3/uL (0.0-1.1) Eosinophils # (Auto) 0.6 x10^3/uL (0.0-0.7) Basophils # (Auto) 0.1 x10^3/uL (0.0-0.2) Sodium Level 138 mmol/L (136-145) Potassium Level 4.5 mmol/L (3.5-5.1) Chloride Level 101 mmol/L (98-107) Carbon Dioxide Level 32 mmol/L (21-32) Anion Gap 5 (6-14) Blood Urea Nitrogen 28 mg/dL (8-26) Creatinine 1.4 mg/dL (0.7-1.3) Estimated GFR (Cockcroft-Gault) 65.4 Glucose Level 107 mg/dL (70-99) Calcium Level 9.2 mg/dL (8.5-10.1) Test 03/16/19 05:53 03/16/19 08:10 Glucose (Fingerstick) 108 mg/dL (70-99) O2 Saturation 92 % (92-99) Arterial Blood pH 7.39 (7.35-7.45) Arterial Blood pCO2 at Patient Temp 49 mmHg (35-46) Arterial Blood pO2 at Patient Temp 67 mmHg (75-108) Arterial Blood HCO3 29 mmol/L (21-28) Arterial Blood Base Excess 3 mmol/L (-3-3) FiO2 100 Microbiology 03/11/19 - Final, Complete 03/11/19 - Final, Complete 03/11/19 - Final, Complete 03/11/19 Gram Stain Evaluation - Final, Complete 03/11/19 Sputum Culture - Final, Complete 03/11/19 Sputum Result 1 - Final, Complete 03/10/19 Blood Culture - Final, Complete 03/09/19 Urine Culture - Final, Complete 03/09/19 Urine Culture Result 1 (WIL) - Final, Complete Medications Current Medications Albuterol/ Ipratropium (Duoneb) 3 ml 1X ONCE NEB Last administered on 03/09/19at 21:21; Start 03/09/19 at 21:30; Stop 03/09/19 at 21:31; Status DC Dexamethasone Sodium Phosphate (Decadron) 10 mg 1X ONCE IV Last administered on 03/09/19at 22:29; Start 03/09/19 at 22:00; Stop 03/09/19 at 22:01; Status DC Propofol 100 ml @ 0 mls/hr CONT PRN IV SEE PROTOCOL Last administered on 03/10/19at 07:19; Start 03/09/19 at 22:30; Stop 03/10/19 at 07:28; Status DC Fentanyl Citrate (Fentanyl 2ml Vial) 50 mcg PRN Q1HR PRN IV SEE COMMENTS; Start 03/09/19 at 22:30; Stop 03/10/19 at 07:28; Status DC Chlorhexidine Gluconate (Peridex) 15 ml BID MM Last administered on 03/15/19at 21:03; Start 03/10/19 at 09:00 Famotidine (Pepcid Vial) 20 mg BID IVP Last administered on 03/16/19at 08:55; Start 03/10/19 at 09:00 Propofol 50 ml @ As Directed STK-MED ONCE IV ; Start 03/09/19 at 22:28; Stop 03/09/19 at 22:28; Status DC Albuterol/ Ipratropium (Duoneb) 3 ml 1X ONCE NEB Last administered on 03/10/19at 02:04; Start 03/09/19 at 23:00; Stop 03/09/19 at 23:01; Status DC Albuterol/ Ipratropium (Duoneb) 3 ml 1X ONCE NEB Last administered on 03/10/19at 02:04; Start 03/09/19 at 23:00; Stop 03/09/19 at 23:01; Status DC Fentanyl Citrate (Fentanyl 2ml Vial) 100 mcg 1X ONCE IV Last administered on 03/09/19at 23:31; Start 03/09/19 at 23:30; Stop 03/09/19 at 23:31; Status DC Bumetanide (Bumex) 1 mg 1X ONCE IV Last administered on 03/10/19at 00:21; Start 03/10/19 at 00:00; Stop 03/10/19 at 00:01; Status DC Heparin Sodium (Porcine) (Heparin Sodium) 4,000 unit 1X ONCE IV Last administered on 03/10/19at 00:31; Start 03/10/19 at 00:00; Stop 03/10/19 at 00:01; Status DC Heparin Sodium/ Dextrose 500 ml @ 0 mls/hr CONT PRN IV PER PROTOCOL Last administered on 03/10/19at 23:34; Start 03/09/19 at 23:45; Stop 03/11/19 at 16:13; Status DC Heparin Sodium (Porcine) (Heparin Sodium) 5,500 unit PRN Q6HRS PRN IV FOR UFH LEVEL LESS THAN 0.2 Last administered on 03/11/19at 00:57; Start 03/09/19 at 23:45; Stop 03/11/19 at 16:13; Status DC Aspirin (Aspirin Rectal Supp) 300 mg 1X ONCE AK Last administered on 03/10/19at 03:42; Start 03/10/19 at 00:00; Stop 03/10/19 at 00:01; Status DC Propofol 50 ml @ As Directed STK-MED ONCE IV ; Start 03/09/19 at 23:38; Stop 03/09/19 at 23:38; Status DC Propofol 50 ml @ As Directed STK-MED ONCE IV ; Start 03/09/19 at 23:38; Stop 03/09/19 at 23:38; Status DC Piperacillin Sod/ Tazobactam Sod 4.5 gm/Sodium Chloride 100 ml @ 200 mls/hr 1X ONCE IV Last administered on 03/10/19at 05:19; Start 03/10/19 at 00:30; Stop 03/10/19 at 00:59; Status DC Propofol 50 ml @ As Directed STK-MED ONCE IV ; Start 03/10/19 at 00:51; Stop 03/10/19 at 00:51; Status DC Propofol 50 ml @ As Directed STK-MED ONCE IV ; Start 03/10/19 at 01:14; Stop 03/10/19 at 01:15; Status DC Fentanyl Citrate (Fentanyl 2ml Vial) 100 mcg 1X ONCE IV Last administered on 03/10/19at 01:26; Start 03/10/19 at 01:45; Stop 03/10/19 at 01:46; Status DC Clonidine HCl (Catapres) 0.1 mg 1X ONCE PO ; Start 03/10/19 at 01:30; Stop 03/10/19 at 01:34; Status DC Midazolam HCl (Versed) 5 mg 1X ONCE IV Last administered on 03/10/19at 01:28; Start 03/10/19 at 01:30; Stop 03/10/19 at 01:34; Status DC Propofol 50 ml @ As Directed STK-MED ONCE IV ; Start 03/10/19 at 02:08; Stop 03/10/19 at 02:09; Status DC Propofol 50 ml @ As Directed STK-MED ONCE IV ; Start 03/10/19 at 02:36; Stop 03/10/19 at 02:36; Status DC Rocuronium [place] (Zemuron) 50 mg STK-MED ONCE .ROUTE ; Start 03/10/19 at 05:15; Stop 03/10/19 at 05:15; Status DC Etomidate (Amidate) 20 mg STK-MED ONCE IV ; Start 03/10/19 at 05:15; Stop 03/10/19 at 05:16; Status DC Fentanyl Citrate 30 ml @ 0 mls/hr CONT PRN IV SEE PROTOCOL Last administered on 03/16/19at 08:55; Start 03/10/19 at 07:30 Propofol 100 ml @ 0 mls/hr CONT PRN IV SEE PROTOCOL; Start 03/10/19 at 07:30 Fentanyl Citrate (Fentanyl 2ml Vial) 25 mcg PRN Q1HR PRN IV SEE COMMENTS; Start 03/10/19 at 07:30 Fentanyl Citrate (Fentanyl 2ml Vial) 50 mcg PRN Q1HR PRN IV SEE COMMENTS; Start 03/10/19 at 07:30 Artificial Tears (Artificial Tears) 1 drop PRN Q1HR PRN OU DRY EYE Last administered on 03/13/19at 13:32; Start 03/10/19 at 07:30 Famotidine (Pepcid Vial) 20 mg BID IVP ; Start 03/10/19 at 09:00; Status UNV Morphine Sulfate (Morphine Sulfate) 2 mg PRN Q1HR PRN IV SEE COMMENTS.; Start 03/10/19 at 07:30 Morphine Sulfate (Morphine Sulfate) 4 mg PRN Q1HR PRN IV SEE COMMENTS.; Start 03/10/19 at 07:30 Midazolam HCl 100 ml @ 0 mls/hr CONT PRN IV SEE PROTOCOL Last administered on 03/16/19at 04:45; Start 03/10/19 at 07:30 Levofloxacin/ Dextrose (Levaquin Per Pharmacy) 1 each PRN DAILY PRN MC SEE COMMENTS; Start 03/10/19 at 08:15; Stop 03/14/19 at 09:25; Status DC Albuterol/ Ipratropium (Duoneb) 3 ml RTQID NEB Last administered on 03/16/19at 08:17; Start 03/10/19 at 12:00 Sodium Chloride 1,000 ml @ 100 mls/hr Q10H IV Last administered on 03/10/19at 23:34; Start 03/10/19 at 08:15; Stop 03/11/19 at 16:02; Status DC Amlodipine Besylate (Norvasc) 5 mg DAILY PO Last administered on 03/10/19at 09:13; Start 03/10/19 at 09:00; Stop 03/10/19 at 10:04; Status DC Hydrochlorothiazide (Hydrodiuril) 25 mg DAILY PO Last administered on 03/10/19at 09:13; Start 03/10/19 at 09:00; Stop 03/10/19 at 10:04; Status DC Lisinopril (Prinivil) 5 mg DAILY PO Last administered on 03/10/19at 09:13; Start 03/10/19 at 09:00; Stop 03/10/19 at 10:04; Status DC Levofloxacin/ Dextrose 100 ml @ 100 mls/hr Q24H IV Last administered on 03/14/19at 08:10; Start 03/10/19 at 09:00; Stop 03/14/19 at 09:25; Status DC Aspirin (Amanda Aspirin) 325 mg 1X ONCE PO Last administered on 03/10/19at 10:55; Start 03/10/19 at 10:30; Stop 03/10/19 at 10:31; Status DC Aspirin (Children'S Aspirin) 81 mg DAILYWBKFT PO Last administered on 03/16/19at 08:55; Start 03/11/19 at 08:00 Amlodipine Besylate (Norvasc) 10 mg DAILY PO Last administered on 03/11/19at 09:37; Start 03/11/19 at 09:00; Stop 03/11/19 at 12:50; Status DC Hydralazine HCl (Apresoline Inj) 10 mg PRN Q4HRS PRN IVP ELEVATED BP, SEE COMMENTS; Start 03/10/19 at 10:15; Stop 03/12/19 at 09:37; Status DC Furosemide (Lasix) 40 mg DAILY IVP Last administered on 03/11/19at 09:37; Start 03/10/19 at 11:00; Stop 03/11/19 at 11:24; Status DC Insulin Human Lispro (HumaLOG) 0-9 UNITS TIDWMEALS SQ ; Start 03/10/19 at 12:00; Stop 03/10/19 at 17:57; Status DC Dextrose (Dextrose 50%-Water Syringe) 12.5 gm PRN Q15MIN PRN IV SEE COMMENTS; Start 03/10/19 at 11:15; Stop 03/12/19 at 16:47; Status DC Dextrose 250 ml PRN Q15MIN PRN IV SEE COMMENTS; Start 03/10/19 at 11:15; Stop 03/10/19 at 11:05; Status DC Iohexol (Omnipaque 350 Mg/ml) 100 ml 1X ONCE IV Last administered on 03/10/19at 14:05; Start 03/10/19 at 11:45; Stop 03/10/19 at 11:47; Status DC Info (CONTRAST GIVEN -- Rx MONITORING) 1 each PRN DAILY PRN MC SEE COMMENTS; Start 03/10/19 at 11:45; Stop 03/12/19 at 11:44; Status DC Piperacillin Sod/ Tazobactam Sod (Zosyn Per Pharmacy) 1 each PRN DAILY PRN MC SEE COMMENTS; Start 03/10/19 at 11:45 Vancomycin HCl (Vanco Per Pharmacy) 1 each PRN DAILY PRN MC SEE COMMENTS Last administered on 03/11/19at 09:42; Start 03/10/19 at 11:45; Stop 03/11/19 at 13:57; Status DC Vancomycin HCl 2 gm/Sodium Chloride 500 ml @ 250 mls/hr 1X ONCE IV Last administered on 03/10/19at 12:41; Start 03/10/19 at 13:00; Stop 03/10/19 at 14:59; Status DC Piperacillin Sod/ Tazobactam Sod 3.375 gm/Sodium Chloride 50 ml @ 100 mls/hr Q6HRS IV Last administered on 03/16/19at 08:55; Start 03/10/19 at 12:30 Vancomycin HCl 1.75 gm/Sodium Chloride 500 ml @ 250 mls/hr Q12H IV Last administered on 03/11/19at 12:43; Start 03/11/19 at 01:00; Stop 03/11/19 at 13:57; Status DC Vancomycin HCl (Vancomycin Trough Level) 1 each 1X ONCE MC ; Start 03/12/19 at 12:30; Stop 03/12/19 at 12:31; Status Cancel Insulin Human Lispro (HumaLOG) 0-9 UNITS Q6HRS SQ ; Start 03/11/19 at 00:00; Sto p 03/12/19 at 16:14; Status DC Magnesium Sulfate/ Dextrose 100 ml @ 50 mls/hr DAILY IV Last administered on 03/11/19at 09:28; Start 03/11/19 at 09:00; Stop 03/14/19 at 08:59; Status DC Potassium Phosphate 27.2 mmol/Sodium Chloride 259.0667 ml @ 64.753 m... 1X ONCE IV Last administered on 03/11/19at 09:28; Start 03/11/19 at 10:00; Stop 03/11/19 at 14:00; Status DC Potassium Phosphate 27.2 mmol/Sodium Chloride 259.0667 ml @ 64.753 m... 1X ONCE IV ; Start 03/11/19 at 14:00; Stop 03/11/19 at 18:00; Status DC Lorazepam (Ativan Inj) 1 mg PRN Q1HR PRN IV ANXIETY Last administered on 03/14/19at 16:32; Start 03/11/19 at 11:00 Sodium Chloride 1,000 ml @ 1,000 mls/hr 1X ONCE IV Last administered on 03/11/19at 12:06; Start 03/11/19 at 11:30; Stop 03/11/19 at 12:29; Status DC Norepinephrine Bitartrate 250 ml @ 27.837 mls/ hr CONT PRN IV SEE I/O RECORD Last administered on 03/13/19at 04:13; Start 03/11/19 at 13:00 Hydralazine HCl (Apresoline Inj) 10 mg PRN Q4HRS PRN IVP ELEVATED BP, SEE COMMENTS; Start 03/11/19 at 13:00 Linezolid/Dextrose 300 ml @ 300 mls/hr Q12HR IV Last administered on 03/16/19at 08:55; Start 03/11/19 at 21:00 Potassium Chloride/Water 50 ml @ 50 mls/hr Q1H IV Last administered on 03/11/19at 17:28; Start 03/11/19 at 16:00; Stop 03/11/19 at 17:59; Status DC Heparin Sodium (Porcine) (Heparin Sodium) 5,000 unit Q8HRS SQ Last administered on 03/16/19at 06:03; Start 03/11/19 at 22:00 Multi-Ingred Cream/Lotion/Oil/ Oint (Artificial Tears Eye Ointment) 1 zuri PRN Q1HR PRN OU DRY EYE; Start 03/12/19 at 09:00 Potassium Chloride/Water 50 ml @ 50 mls/hr 1X ONCE IV Last administered on 03/12/19at 09:44; Start 03/12/19 at 10:00; Stop 03/12/19 at 10:59; Status DC Potassium Chloride/Water 50 ml @ 50 mls/hr 1X ONCE IV ; Start 03/12/19 at 10:30; Stop 03/12/19 at 11:31; Status DC Insulin Human Lispro (HumaLOG) 0-9 UNITS TIDWMEALS SQ ; Start 03/12/19 at 17:00; Stop 03/12/19 at 16:24; Status DC Dextrose (Dextrose 50%-Water Syringe) 12.5 gm PRN Q15MIN PRN IV SEE COMMENTS; Start 03/12/19 at 16:15 Dextrose 250 ml PRN Q15MIN PRN IV SEE COMMENTS; Start 03/12/19 at 16:15 Insulin Human Lispro (HumaLOG) 0-9 UNITS Q6HRS SQ ; Start 03/12/19 at 18:00 Dexmedetomidine HCl 400 mcg/ Sodium Chloride 100 ml @ 0 mls/hr CONT PRN IV ANXIETY / AGITATION Last administered on 03/16/19at 10:52; Start 03/12/19 at 20:30 Sodium Chloride 500 ml @ 500 mls/hr 1X PRN PRN IV see comments Last administered on 03/12/19at 23:22; Start 03/12/19 at 20:30 Atropine Sulfate (ATROPINE 0.5mg SYRINGE) 0.5 mg PRN Q5MIN PRN IV SEE COMMENTS; Start 03/12/19 at 20:30 Vecuronium [place] (Norcuron Bolus) 10 mg PRN Q1HR PRN IV ON VENT/RESP FAILURE; Start 03/13/19 at 07:30 Perflutren Protein Type A Microsphe (Optison) 0.66 mg STK-MED ONCE IV ; Start 03/13/19 at 09:08; Stop 03/13/19 at 09:08; Status DC Perflutren Protein Type A Microsphe (Optison) 0.66 mg 1X ONCE IV Last administered on 03/13/19at 09:40; Start 03/13/19 at 09:15; Stop 03/13/19 at 09:16; Status DC Furosemide (Lasix) 40 mg 1X ONCE IVP Last administered on 03/13/19at 13:32; Start 03/13/19 at 10:30; Stop 03/13/19 at 10:31; Status DC Daptomycin 1320 mg/Sodium Chloride 50 ml @ 100 mls/hr ONCE ONCE IV Last administered on 03/15/19at 13:53; Start 03/15/19 at 13:00; Stop 03/16/19 at 09:33; Status DC Daptomycin 1340 mg/Sodium Chloride 50 ml @ 100 mls/hr Q24H IV ; Start 03/16/19 at 08:45; Status UNV Daptomycin 1340 mg/Sodium Chloride 50 ml @ 100 mls/hr Q24H IV ; Start 03/16/19 at 09:00; Status Cancel Daptomycin 830 mg/ Sodium Chloride 50 ml @ 100 mls/hr Q24H IV ; Start 03/16/19 at 14:00 Active Scripts Active Norvasc (Amlodipine Besylate) 5 Mg Tablet 1 Tab PO DAILY Lisinopril 5 Mg Tablet 1 Tab PO DAILY Reported Hydrochlorothiazide Tablet (Hydrochlorothiazide) 25 Mg Tablet 25 Mg PO DAILY Vitals/I & O Vital Sign - Last 24 Hours 03/15/19 03/15/19 03/15/19 03/15/19 12:00 12:00 13:00 13:11 Temp 97.9 97.9 Pulse 69 69 Resp 19 20 B/P (MAP) 98/64 (75) 98/62 (74) Pulse Ox 91 92 92 O2 Delivery Mechanical Ventilator Ventilator Ventilator Ventilator 03/15/19 03/15/19 03/15/19 03/15/19 14:00 15:00 15:20 16:00 Pulse 67 67 Resp 16 15 B/P (MAP) 115/75 (88) 116/77 (90) Pulse Ox 96 97 92 O2 Delivery Ventilator Ventilator Ventilator Mechanical Ventilator 03/15/19 03/15/19 03/15/19 03/15/19 16:00 17:00 17:10 17:20 Temp 97.6 97.6 Pulse 65 67 Resp 15 17 16 B/P (MAP) 114/75 (88) 102/63 (76) Pulse Ox 98 93 94 94 O2 Delivery Ventilator Ventilator Ventilator Ventilator 03/15/19 03/15/19 03/15/19 03/15/19 18:00 18:19 19:00 20:00 Pulse 68 72 Resp 18 18 20 B/P (MAP) 100/62 (75) 83/65 (71) Pulse Ox 95 94 92 O2 Delivery Ventilator Ventilator Ventilator Mechanical Ventilator 03/15/19 03/15/19 03/15/19 03/15/19 20:00 20:33 21:00 22:00 Temp 99.0 99.0 Pulse 75 70 70 Resp 20 16 16 B/P (MAP) 113/74 (87) 108/76 (87) 111/72 (85) Pulse Ox 94 93 96 95 O2 Delivery Ventilator Ventilator Ventilator Ventilator 03/15/19 03/15/19 03/15/19 03/16/19 23:00 23:59 23:59 00:15 Temp 99.2 99.2 Pulse 72 77 Resp 16 18 B/P (MAP) 105/66 (79) 112/72 (85) Pulse Ox 94 95 97 O2 Delivery Ventilator Mechanical Ventilator Ventilator Ventilator 03/16/19 03/16/19 03/16/19 03/16/19 01:00 01:17 02:00 02:14 Pulse 73 69 Resp 18 18 18 18 B/P (MAP) 102/66 (78) 101/65 (77) Pulse Ox 93 91 92 92 O2 Delivery Ventilator Ventilator 03/16/19 03/16/19 03/16/19 03/16/19 02:21 03:00 04:00 04:00 Pulse 69 70 Resp 18 20 B/P (MAP) 103/67 (79) 105/68 (80) Pulse Ox 91 98 92 O2 Delivery Ventilator Ventilator Ventilator Mechanical Ventilator 03/16/19 03/16/19 03/16/19 03/16/19 05:00 05:12 06:00 08:10 Temp 100.1 100.1 Pulse 79 76 Resp 20 20 B/P (MAP) 107/72 (84) 101/61 (74) Pulse Ox 96 91 94 94 O2 Delivery Ventilator Ventilator Ventilator Ventilator 03/16/19 03/16/19 08:55 10:52 Pulse Ox 94 94 O2 Delivery Ventilator Ventilator O2 Flow Rate 15.0 15.0 Intake and Output 03/15/19 03/15/19 03/16/19 14:59 22:59 06:59 Intake Total 750 ml 2279.51 ml 2559 ml Output Total 490 ml 500 ml 420 ml Balance 260 ml 1779.51 ml 2139 ml PRICILA GOMEZ MD Mar 16, 2019 11:05
--- NOTE | 2019-03-16 11:34 | PDOC ---
PULMONARY PROGRESS NOTES Subjective on vent, sedated on fentanyl, precedex, versed, small ett secretion on 100% FIO2, 12 of PEEP Vitals Vital Signs Date Time Temp Pulse Resp B/P (MAP) Pulse Ox O2 Delivery O2 Flow Rate FiO2 03/16/19 10:52 94 Ventilator 15.0 03/16/19 06:00 76 20 101/61 (74) 03/16/19 05:00 100.1 100.1 Comments ros as mentioned as mentioned as above other sys otherwise neg on vent sedated HEENT: Other Lungs: Other (decrease bs) Cardiovascular: S1, S2 Abdomen: Soft, Non-tender, Other (obese) Extremities: Other (trace edema) Skin: Warm Labs Laboratory Tests Test 03/14/19 17:41 03/14/19 23:24 03/15/19 05:49 03/15/19 05:50 Glucose (Fingerstick) 112 mg/dL (70-99) 100 mg/dL (70-99) 103 mg/dL (70-99) White Blood Count 13.0 x10^3/uL (4.0-11.0) Red Blood Count 5.07 x10^6/uL (4.30-5.70) Hemoglobin 12.2 g/dL (13.0-17.5) Hematocrit 39.9 % (39.0-53.0) Mean Corpuscular Volume 79 fL (79-100) Mean Corpuscular Hemoglobin 24 pg (25-35) Mean Corpuscular Hemoglobin Concent 31 g/dL (31-37) Red Cell Distribution Width 18.9 % (11.5-14.5) Platelet Count 160 x10^3/uL (140-400) Neutrophils (%) (Auto) 80 % (31-73) Lymphocytes (%) (Auto) 6 % (24-48) Monocytes (%) (Auto) 10 % (0-9) Eosinophils (%) (Auto) 4 % (0-3) Basophils (%) (Auto) 1 % (0-3) Neutrophils # (Auto) 10.4 x10^3/uL (1.8-7.7) Lymphocytes # (Auto) 0.7 x10^3/uL (1.0-4.8) Monocytes # (Auto) 1.3 x10^3/uL (0.0-1.1) Eosinophils # (Auto) 0.5 x10^3/uL (0.0-0.7) Basophils # (Auto) 0.1 x10^3/uL (0.0-0.2) Sodium Level 139 mmol/L (136-145) Potassium Level 4.6 mmol/L (3.5-5.1) Chloride Level 102 mmol/L (98-107) Carbon Dioxide Level 32 mmol/L (21-32) Anion Gap 5 (6-14) Blood Urea Nitrogen 27 mg/dL (8-26) Creatinine 1.6 mg/dL (0.7-1.3) Estimated GFR (Cockcroft-Gault) 56.1 BUN/Creatinine Ratio 17 (6-20) Glucose Level 101 mg/dL (70-99) Calcium Level 9.1 mg/dL (8.5-10.1) Total Bilirubin 1.9 mg/dL (0.2-1.0) Aspartate Amino Transf (AST/SGOT) 19 U/L (15-37) Alanine Aminotransferase (ALT/SGPT) 59 U/L (16-63) Alkaline Phosphatase 80 U/L (46-116) Total Protein 6.4 g/dL (6.4-8.2) Albumin 2.1 g/dL (3.4-5.0) Albumin/Globulin Ratio 0.5 (1.0-1.7) Test 03/15/19 08:00 03/15/19 11:26 03/15/19 17:49 03/16/19 00:20 O2 Saturation 92 % (92-99) Arterial Blood pH 7.40 (7.35-7.45) Arterial Blood pCO2 at Patient Temp 48 mmHg (35-46) Arterial Blood pO2 at Patient Temp 64 mmHg (75-108) Arterial Blood HCO3 30 mmol/L (21-28) Arterial Blood Base Excess 4 mmol/L (-3-3) FiO2 100 Glucose (Fingerstick) 107 mg/dL (70-99) 107 mg/dL (70-99) 106 mg/dL (70-99) Test 03/16/19 05:30 03/16/19 05:53 03/16/19 08:10 White Blood Count 13.7 x10^3/uL (4.0-11.0) Red Blood Count 4.90 x10^6/uL (4.30-5.70) Hemoglobin 11.9 g/dL (13.0-17.5) Hematocrit 38.7 % (39.0-53.0) Mean Corpuscular Volume 79 fL (79-100) Mean Corpuscular Hemoglobin 24 pg (25-35) Mean Corpuscular Hemoglobin Concent 31 g/dL (31-37) Red Cell Distribution Width 18.7 % (11.5-14.5) Platelet Count 174 x10^3/uL (140-400) Neutrophils (%) (Auto) 80 % (31-73) Lymphocytes (%) (Auto) 5 % (24-48) Monocytes (%) (Auto) 10 % (0-9) Eosinophils (%) (Auto) 4 % (0-3) Basophils (%) (Auto) 0 % (0-3) Neutrophils # (Auto) 11.0 x10^3/uL (1.8-7.7) Lymphocytes # (Auto) 0.7 x10^3/uL (1.0-4.8) Monocytes # (Auto) 1.4 x10^3/uL (0.0-1.1) Eosinophils # (Auto) 0.6 x10^3/uL (0.0-0.7) Basophils # (Auto) 0.1 x10^3/uL (0.0-0.2) Sodium Level 138 mmol/L (136-145) Potassium Level 4.5 mmol/L (3.5-5.1) Chloride Level 101 mmol/L (98-107) Carbon Dioxide Level 32 mmol/L (21-32) Anion Gap 5 (6-14) Blood Urea Nitrogen 28 mg/dL (8-26) Creatinine 1.4 mg/dL (0.7-1.3) Estimated GFR (Cockcroft-Gault) 65.4 Glucose Level 107 mg/dL (70-99) Calcium Level 9.2 mg/dL (8.5-10.1) Glucose (Fingerstick) 108 mg/dL (70-99) O2 Saturation 92 % (92-99) Arterial Blood pH 7.39 (7.35-7.45) Arterial Blood pCO2 at Patient Temp 49 mmHg (35-46) Arterial Blood pO2 at Patient Temp 67 mmHg (75-108) Arterial Blood HCO3 29 mmol/L (21-28) Arterial Blood Base Excess 3 mmol/L (-3-3) FiO2 100 Laboratory Tests Test 03/15/19 17:49 03/16/19 00:20 03/16/19 05:30 03/16/19 05:53 Glucose (Fingerstick) 107 mg/dL (70-99) 106 mg/dL (70-99) 108 mg/dL (70-99) White Blood Count 13.7 x10^3/uL (4.0-11.0) Red Blood Count 4.90 x10^6/uL (4.30-5.70) Hemoglobin 11.9 g/dL (13.0-17.5) Hematocrit 38.7 % (39.0-53.0) Mean Corpuscular Volume 79 fL (79-100) Mean Corpuscular Hemoglobin 24 pg (25-35) Mean Corpuscular Hemoglobin Concent 31 g/dL (31-37) Red Cell Distribution Width 18.7 % (11.5-14.5) Platelet Count 174 x10^3/uL (140-400) Neutrophils (%) (Auto) 80 % (31-73) Lymphocytes (%) (Auto) 5 % (24-48) Monocytes (%) (Auto) 10 % (0-9) Eosinophils (%) (Auto) 4 % (0-3) Basophils (%) (Auto) 0 % (0-3) Neutrophils # (Auto) 11.0 x10^3/uL (1.8-7.7) Lymphocytes # (Auto) 0.7 x10^3/uL (1.0-4.8) Monocytes # (Auto) 1.4 x10^3/uL (0.0-1.1) Eosinophils # (Auto) 0.6 x10^3/uL (0.0-0.7) Basophils # (Auto) 0.1 x10^3/uL (0.0-0.2) Sodium Level 138 mmol/L (136-145) Potassium Level 4.5 mmol/L (3.5-5.1) Chloride Level 101 mmol/L (98-107) Carbon Dioxide Level 32 mmol/L (21-32) Anion Gap 5 (6-14) Blood Urea Nitrogen 28 mg/dL (8-26) Creatinine 1.4 mg/dL (0.7-1.3) Estimated GFR (Cockcroft-Gault) 65.4 Glucose Level 107 mg/dL (70-99) Calcium Level 9.2 mg/dL (8.5-10.1) Test 03/16/19 08:10 O2 Saturation 92 % (92-99) Arterial Blood pH 7.39 (7.35-7.45) Arterial Blood pCO2 at Patient Temp 49 mmHg (35-46) Arterial Blood pO2 at Patient Temp 67 mmHg (75-108) Arterial Blood HCO3 29 mmol/L (21-28) Arterial Blood Base Excess 3 mmol/L (-3-3) FiO2 100 Medications Active Scripts Medications Dose Route/Sig Max Daily Dose Days Date Category Hydrochlorothiazide Tablet (Hydrochlorothiazide) 25 Mg Tablet 25 Mg PO DAILY 03/10/19 Reported Norvasc (Amlodipine Besylate) 5 Mg Tablet 1 Tab PO DAILY 01/12/19 Rx Lisinopril 5 Mg Tablet 1 Tab PO DAILY 01/12/19 Rx Comments cxr reviewed 03/16 Diffuse bilateral infiltrate, worse on left .ett ok Impression . 1. Acute hypercapnic respiratory failure secondary to multifactorial etiologies. Likely related to acute lung injury/noncardiogenic pulmonary edema/ ARDS due to vaping. Needing max amount of oxygen and high PEEP c/w shunt physiology due to ARDS Likelihood of pulmonary embolism is less, CTA non diagnostic for PE. Dopplers neg 2. Abnormal chest x-ray with bilateral lung infiltrates. noncardiogenic pulmonary edema. CT chest reviewed. Now with fever and worsening left lung infiltrate,? superimposed VAP, check all cultures. Abx per ID 3. History of morbid obesity with Pickwickian physiology with chronic hypercapnia and chronic hypoxic respiratory failure, history of obstructive sleep apnea as well, but noncompliant to CPAP. 4. Acute kidney injury. stable 5. Increased troponin. Possible non-ST myocardial infarction. 6. Previous echo with normal ejection fraction. PA 55 likely secondary pulmonary HTN 7. History of tobacco use. Plan . 1. Continue with present assist control mode and PEEP of 14, titrate fi02 to keep sat 92%, make necessary adjustment based on followup ABGs. cont vent support.Poor prognosis 2. Will try high dose steroids 3. No acute bleed on CT head. 4. Abx per ID, check all new cultures 5. Monitor fever and white cell count. 6. Continue bronchodilators. 7. Heparin for DVT prophylaxis 8. P.r.n. diuresis.monitor BP closely 9. will need to d/w family again regarding critical condition. discussed with RN and RT. We will follow along with you. 10. Condition guarded cct 30 min MARIO ALLEN MD Mar 16, 2019 11:34
[2019-03-16] MEDS: methylPREDNISolone SOD SUCC PF 125 MG/2 ML VIAL. IV SCH ×2 (12:28→22:01)
[2019-03-16] MEDS: NORMAL SALINE IV SCH (14:02)
[2019-03-16] MEDS: DAPTOMYCIN IV SCH (14:02)
--- NOTE | 2019-03-16 15:08 | NUR ---
SS following up with discharge planning. HCFS following for self pay status. Pt remains on the vent at this time. SS will continue to follow for discharge planning.
--- NOTE | 2019-03-16 15:31 | PDOC2 ---
PALLIATIVE CARE Palliative Care Note Palliative Care Spoke with Gaby Rafael evening. She was unable to come for meeting today. Wants other family members to participate as well. Plan meeting tomorrow. Patient needing 100% oxygen with PEEP 14 on Vent. Continue current treatment plan. FRANCIS DELATORRE Mar 16, 2019 15:31
--- NOTE | 2019-03-16 16:24 | PDOC ---
Renal-Progress Notes Subjective Notes Notes NONE History of Present Illness Hx of present illness SEDATED Vitals Vitals Vital Signs Date Time Temp Pulse Resp B/P (MAP) Pulse Ox O2 Delivery O2 Flow Rate FiO2 03/16/19 16:13 97 Ventilator 03/16/19 15:15 15.0 03/16/19 15:00 76 20 131/74 (93) 03/16/19 07:00 99.2 99.2 Weight Weight [ ] I.O. Intake and Output Intake and Output 03/16/19 07:00 Intake Total 5588.51 ml Output Total 1360 ml Balance 4228.51 ml IV Total 2292.51 ml Tube Feeding 2206 ml Other 1090 ml Output Urine Total 1360 ml Gastric Drainage Total 0 ml # Bowel Movements 4 Labs Labs Laboratory Tests Test 03/15/19 17:49 03/16/19 00:20 03/16/19 05:30 03/16/19 05:53 Glucose (Fingerstick) 107 mg/dL (70-99) 106 mg/dL (70-99) 108 mg/dL (70-99) White Blood Count 13.7 x10^3/uL (4.0-11.0) Red Blood Count 4.90 x10^6/uL (4.30-5.70) Hemoglobin 11.9 g/dL (13.0-17.5) Hematocrit 38.7 % (39.0-53.0) Mean Corpuscular Volume 79 fL (79-100) Mean Corpuscular Hemoglobin 24 pg (25-35) Mean Corpuscular Hemoglobin Concent 31 g/dL (31-37) Red Cell Distribution Width 18.7 % (11.5-14.5) Platelet Count 174 x10^3/uL (140-400) Neutrophils (%) (Auto) 80 % (31-73) Lymphocytes (%) (Auto) 5 % (24-48) Monocytes (%) (Auto) 10 % (0-9) Eosinophils (%) (Auto) 4 % (0-3) Basophils (%) (Auto) 0 % (0-3) Neutrophils # (Auto) 11.0 x10^3/uL (1.8-7.7) Lymphocytes # (Auto) 0.7 x10^3/uL (1.0-4.8) Monocytes # (Auto) 1.4 x10^3/uL (0.0-1.1) Eosinophils # (Auto) 0.6 x10^3/uL (0.0-0.7) Basophils # (Auto) 0.1 x10^3/uL (0.0-0.2) Sodium Level 138 mmol/L (136-145) Potassium Level 4.5 mmol/L (3.5-5.1) Chloride Level 101 mmol/L (98-107) Carbon Dioxide Level 32 mmol/L (21-32) Anion Gap 5 (6-14) Blood Urea Nitrogen 28 mg/dL (8-26) Creatinine 1.4 mg/dL (0.7-1.3) Estimated GFR (Cockcroft-Gault) 65.4 Glucose Level 107 mg/dL (70-99) Calcium Level 9.2 mg/dL (8.5-10.1) Test 03/16/19 08:10 03/16/19 11:49 O2 Saturation 92 % (92-99) Arterial Blood pH 7.39 (7.35-7.45) Arterial Blood pCO2 at Patient Temp 49 mmHg (35-46) Arterial Blood pO2 at Patient Temp 67 mmHg (75-108) Arterial Blood HCO3 29 mmol/L (21-28) Arterial Blood Base Excess 3 mmol/L (-3-3) FiO2 100 Glucose (Fingerstick) 116 mg/dL (70-99) Micro Micro Microbiology 03/11/19 - Final, Complete 03/11/19 - Final, Complete 03/11/19 - Final, Complete 03/11/19 Gram Stain Evaluation - Final, Complete 03/11/19 Sputum Culture - Final, Complete 03/11/19 Sputum Result 1 - Final, Complete 03/10/19 Blood Culture - Final, Complete 03/09/19 Urine Culture - Final, Complete 03/09/19 Urine Culture Result 1 (WIL) - Final, Complete Review of Systems Constitutional: yes: unresponsive Physical Exam General Appearance: other (SEDATED) Skin: warm Respiratory: decreased breath sounds Heart: S1S2 Abdomen: soft, bowel sounds present Genitourinary: bladder flat Extremities: pulses present Neurology: other (SEDATED) Musculoskeletal: Other (obese) Assessment Assessment IMP OSMAN RESOLVED CKD STAGE 2 WITH CR OF 1.2 ACUTE HYPERCAPNIC RESP FAILURE-ARDS HX OF TOBACCO AND VAPING PLAN SUPPORTIVE CARE ANTIBIOTICS TRIAL OF LASIX WILL FOLLOW MYESHA ACEVEDO MD Mar 16, 2019 16:24
[2019-03-16] MEDS ORDERED: FUROSEMIDE 40 MG/4 ML VIAL. IVP ONE (16:30)
[2019-03-17] VITALS (24 sets, daily range): BP systolic 140–174; BP diastolic 75–105
[2019-03-17] MEDS: PIPERACILLIN/TAZOBACTAM 3.375 GM in IV NORMAL SALINE 50ML 50 ML IV SCH ×4 (00:15→17:57)
[2019-03-17] MEDS: INSULIN LISPRO 300 UNITS/3 ML VIAL. SQ SCH ×4 (00:23→18:07)
[2019-03-17] MEDS: DEXMEDETOMIDINE 400 MCG in IV NORMAL SALINE 100ML 96 ML IV PRN ×7 (00:25→23:14)
[2019-03-17] MEDS: MIDAZOLAM 100mg/100ml NS BAG 100 ML IV PRN ×3 (02:52→22:21)
[2019-03-17] MEDS: methylPREDNISolone SOD SUCC PF 125 MG/2 ML VIAL. IV SCH ×3 (05:58→21:56)
[2019-03-17] MEDS: HEPARIN for SUB-Q USE 5,000 UNIT/ML VIAL. SQ SCH ×3 (06:00→21:58)
[2019-03-17 06:13] LABS: BASO % 0 % (0-3); EOS % 0 % (0-3); HEMATOCRIT 38.9 % (39.0-53.0); LYMPH # 0.5 x10^3/uL (1.0-4.8); LYMPH % 5 % (24-48); MEAN CORPUSCULAR HEMOGLOBIN 24 pg (25-35); MEAN CORPUSCULAR HGB CONC 31 g/dL (31-37); MEAN CORPUSCULAR VOLUME 78 fL (79-100); MONO # 0.3 x10^3/uL (0.0-1.1); MONO % 4 % (0-9); NEUT # 7.9 x10^3/uL (1.8-7.7); NEUT % 91 % (31-73); PLATELET COUNT 197 x10^3/uL (140-400); RED BLOOD COUNT 4.96 x10^6/uL (4.30-5.70); RED CELL DISTRIBUTION WIDTH 18.8 % (11.5-14.5); WHITE BLOOD COUNT 8.6 x10^3/uL (4.0-11.0)
[2019-03-17 06:36] LABS: ALBUMIN/GLOBULIN RATIO 0.4 (1.0-1.7); CALCIUM 9.5 mg/dL (8.5-10.1); CREATININE 1.5 mg/dL (0.7-1.3); GFR 60.4; POTASSIUM 4.6 mmol/L (3.5-5.1); TOTAL BILIRUBIN 0.9 mg/dL (0.2-1.0); TOTAL PROTEIN 6.9 g/dL (6.4-8.2)
--- NOTE | 2019-03-17 07:37 | PDOC ---
Infectious Disease Note Subjective: Subjective Sedated Orally intubated, no fevers Fio2 100%, PEEP of 14 ROS: ROS unable to obtain Vital Signs: Vital Signs Vital Signs Date Time Temp Pulse Resp B/P (MAP) Pulse Ox O2 Delivery O2 Flow Rate FiO2 03/17/19 07:00 64 20 165/94 (117) 96 Ventilator 03/17/19 04:00 98.3 98.3 03/16/19 15:15 15.0 Physical Exam: PHYSICAL EXAM GENERAL: Orally intubated and sedated. HEENT: Pupils equal, small. OGT/ETT NECK: Supple LUNGS: dec bs at bases HEART: S1 and S2, regular. ABDOMEN: Obese, soft, +BS : Ramos in place fecal tube in place EXTREMITIES: Trace edema - MITTS SKIN: Chronic stasis dermatitis on the lower extremity. NEUROLOGIC: Sedated RIJ clean Medications: Inpatient Meds: Current Medications Medications (Trade) Dose Ordered Sig/Stefanie Start Time Stop Time Status Last Admin Dose Admin Albuterol/ Ipratropium (Duoneb) 3 ml RTQID 03/10/19 12:00 03/16/19 19:51 3 ML Amlodipine Besylate (Norvasc) 10 mg DAILY 03/11/19 09:00 03/11/19 12:50 DC 03/11/19 09:37 10 MG Artificial Tears (Artificial Tears) 1 drop PRN Q1HR PRN 03/10/19 07:30 03/13/19 13:32 1 DROP Aspirin (Aspirin Rectal Supp) 300 mg 1X ONCE 03/10/19 00:00 03/10/19 00:01 DC 03/10/19 03:42 300 MG Aspirin (Amanda Aspirin) 325 mg 1X ONCE 03/10/19 10:30 03/10/19 10:31 DC 03/10/19 10:55 325 MG Aspirin (Children'S Aspirin) 81 mg [id number] 03/11/19 08:00 03/16/19 08:55 81 MG Atropine Sulfate (ATROPINE 0.5mg SYRINGE) 0.5 mg PRN Q5MIN PRN 03/12/19 20:30 Bumetanide (Bumex) 1 mg 1X ONCE 03/10/19 00:00 03/10/19 00:01 DC 03/10/19 00:21 1 MG Chlorhexidine Gluconate (Peridex) 15 ml BID 03/10/19 09:00 03/16/19 21:17 15 ML Clonidine HCl (Catapres) 0.1 mg 1X ONCE 03/10/19 01:30 03/10/19 01:34 DC Daptomycin 1320 mg/Sodium Chloride 50 ml @ 100 mls/hr ONCE ONCE 03/15/19 13:00 03/16/19 09:33 DC 03/15/19 13:53 100 MLS/HR Daptomycin 1340 mg/Sodium Chloride 50 ml @ 100 mls/hr Q24H 03/16/19 09:00 Cancel Daptomycin 830 mg/ Sodium Chloride 50 ml @ 100 mls/hr Q24H 03/16/19 14:00 03/16/19 14:02 100 MLS/HR Dexamethasone Sodium Phosphate (Decadron) 10 mg 1X ONCE 03/09/19 22:00 03/09/19 22:01 DC 03/09/19 22:29 10 MG Dexmedetomidine HCl 400 mcg/ Sodium Chloride 100 ml @ 0 mls/hr CONT PRN 03/12/19 20:30 03/17/19 04:34 27.1 MLS/HR Dextrose 250 ml PRN Q15MIN PRN 03/12/19 16:15 Dextrose (Dextrose 50%-Water Syringe) 12.5 gm PRN Q15MIN PRN 03/12/19 16:15 Etomidate (Amidate) 20 mg STK-MED ONCE 03/10/19 05:15 03/10/19 05:16 DC Famotidine (Pepcid Vial) 20 mg BID 03/10/19 09:00 UNV Fentanyl Citrate (Fentanyl 2ml Vial) 50 mcg PRN Q1HR PRN 03/10/19 07:30 Furosemide (Lasix) 40 mg 1X ONCE 03/16/19 16:30 03/16/19 16:31 DC 03/16/19 16:46 40 MG Heparin Sodium (Porcine) (Heparin Sodium) 5,000 unit Q8HRS 03/11/19 22:00 03/17/19 06:00 5,000 UNIT Heparin Sodium/ Dextrose 500 ml @ 0 mls/hr CONT PRN 03/09/19 23:45 03/11/19 16:13 DC 03/10/19 23:34 1,300 MLS/HR Hydralazine HCl (Apresoline Inj) 10 mg PRN Q4HRS PRN 03/11/19 13:00 Hydrochlorothiazide (Hydrodiuril) 25 mg DAILY 03/10/19 09:00 03/10/19 10:04 DC 03/10/19 09:13 25 MG Info (CONTRAST GIVEN -- Rx MONITORING) 1 each PRN DAILY PRN 03/10/19 11:45 03/12/19 11:44 DC Insulin Human Lispro (HumaLOG) 0-9 UNITS Q6HRS 03/12/19 18:00 03/17/19 06:00 4 UNITS Iohexol (Omnipaque 350 Mg/ml) 100 ml 1X ONCE 03/10/19 11:45 03/10/19 11:47 DC 03/10/19 14:05 100 ML Levofloxacin/ Dextrose 100 ml @ 100 mls/hr Q24H 03/10/19 09:00 03/14/19 09:25 DC 03/14/19 08:10 100 MLS/HR Levofloxacin/ Dextrose (Levaquin Per Pharmacy) 1 each PRN DAILY PRN 03/10/19 08:15 03/14/19 09:25 DC Linezolid/Dextrose 300 ml @ 300 mls/hr Q12HR 03/11/19 21:00 03/16/19 21:17 300 MLS/HR Lisinopril (Prinivil) 5 mg DAILY 03/10/19 09:00 03/10/19 10:04 DC 03/10/19 09:13 5 MG Lorazepam (Ativan Inj) 1 mg PRN Q1HR PRN 03/11/19 11:00 03/14/19 16:32 1 MG Magnesium Sulfate/ Dextrose 100 ml @ 50 mls/hr DAILY 03/11/19 09:00 03/14/19 08:59 DC 03/11/19 09:28 50 MLS/HR Methylprednisolone Sodium Succinate (SOLU-Medrol 125MG VIAL) 100 mg Q8HRS 03/16/19 12:00 03/17/19 06:00 100 MG Midazolam HCl 100 ml @ 0 mls/hr CONT PRN 03/10/19 07:30 03/17/19 02:52 8 MLS/HR Midazolam HCl (Versed) 5 mg 1X ONCE 03/10/19 01:30 03/10/19 01:34 DC 03/10/19 01:28 5 MG Morphine Sulfate (Morphine Sulfate) 4 mg PRN Q1HR PRN 03/10/19 07:30 Multi-Ingred Cream/Lotion/Oil/ Oint (Artificial Tears Eye Ointment) 1 zuri PRN Q1HR PRN 03/12/19 09:00 Norepinephrine Bitartrate 250 ml @ 27.837 mls/ hr CONT PRN 03/11/19 13:00 03/13/19 04:13 1.392 MLS/HR Perflutren Protein Type A Microsphe (Optison) 0.66 mg 1X ONCE 03/13/19 09:15 03/13/19 09:16 DC 03/13/19 09:40 0.66 MG Piperacillin Sod/ Tazobactam Sod (Zosyn Per Pharmacy) 1 each PRN DAILY PRN 03/10/19 11:45 Piperacillin Sod/ Tazobactam Sod 3.375 gm/Sodium Chloride 50 ml @ 100 mls/hr Q6HRS 03/10/19 12:30 03/17/19 06:00 100 MLS/HR Piperacillin Sod/ Tazobactam Sod 4.5 gm/Sodium Chloride 100 ml @ 200 mls/hr 1X ONCE 03/10/19 00:30 03/10/19 00:59 DC 03/10/19 05:19 200 MLS/HR Potassium Chloride/Water 50 ml @ 50 mls/hr 1X ONCE 03/12/19 10:30 03/12/19 11:31 DC Potassium Phosphate 27.2 mmol/Sodium Chloride 259.0667 ml @ 64.753 m... 1X ONCE 03/11/19 14:00 03/11/19 18:00 DC Propofol 100 ml @ 0 mls/hr CONT PRN 03/10/19 07:30 Rocuronium [place] (Zemuron) 50 mg STK-MED ONCE 03/10/19 05:15 03/10/19 05:15 DC Sodium Chloride 500 ml @ 500 mls/hr 1X PRN PRN 03/12/19 20:30 03/12/19 23:22 500 MLS/HR Vancomycin HCl (Vanco Per Pharmacy) 1 each PRN DAILY PRN 03/10/19 11:45 03/11/19 13:57 DC 03/11/19 09:42 1 EACH Vancomycin HCl (Vancomycin Trough Level) 1 each 1X ONCE 03/12/19 12:30 03/12/19 12:31 Cancel Vancomycin HCl 1.75 gm/Sodium Chloride 500 ml @ 250 mls/hr Q12H 03/11/19 01:00 03/11/19 13:57 DC 03/11/19 12:43 250 MLS/HR Vancomycin HCl 2 gm/Sodium Chloride 500 ml @ 250 mls/hr 1X ONCE 03/10/19 13:00 03/10/19 14:59 DC 03/10/19 12:41 250 MLS/HR Vecuronium [place] (Norcuron Bolus) 10 mg PRN Q1HR PRN 03/13/19 07:30 Labs: Lab Laboratory Tests Test 03/16/19 08:10 03/16/19 11:49 03/16/19 16:52 03/17/19 00:17 O2 Saturation 92 % (92-99) Arterial Blood pH 7.39 (7.35-7.45) Arterial Blood pCO2 at Patient Temp 49 mmHg (35-46) Arterial Blood pO2 at Patient Temp 67 mmHg (75-108) Arterial Blood HCO3 29 mmol/L (21-28) Arterial Blood Base Excess 3 mmol/L (-3-3) FiO2 100 Glucose (Fingerstick) 116 mg/dL (70-99) 151 mg/dL (70-99) 156 mg/dL (70-99) Test 03/17/19 05:50 03/17/19 05:55 White Blood Count 8.6 x10^3/uL (4.0-11.0) Red Blood Count 4.96 x10^6/uL (4.30-5.70) Hemoglobin 12.0 g/dL (13.0-17.5) Hematocrit 38.9 % (39.0-53.0) Mean Corpuscular Volume 78 fL (79-100) Mean Corpuscular Hemoglobin 24 pg (25-35) Mean Corpuscular Hemoglobin Concent 31 g/dL (31-37) Red Cell Distribution Width 18.8 % (11.5-14.5) Platelet Count 197 x10^3/uL (140-400) Neutrophils (%) (Auto) 91 % (31-73) Lymphocytes (%) (Auto) 5 % (24-48) Monocytes (%) (Auto) 4 % (0-9) Eosinophils (%) (Auto) 0 % (0-3) Basophils (%) (Auto) 0 % (0-3) Neutrophils # (Auto) 7.9 x10^3/uL (1.8-7.7) Lymphocytes # (Auto) 0.5 x10^3/uL (1.0-4.8) Monocytes # (Auto) 0.3 x10^3/uL (0.0-1.1) Eosinophils # (Auto) 0.0 x10^3/uL (0.0-0.7) Basophils # (Auto) 0.0 x10^3/uL (0.0-0.2) Sodium Level 138 mmol/L (136-145) Potassium Level 4.6 mmol/L (3.5-5.1) Chloride Level 102 mmol/L (98-107) Carbon Dioxide Level 32 mmol/L (21-32) Anion Gap 4 (6-14) Blood Urea Nitrogen 31 mg/dL (8-26) Creatinine 1.5 mg/dL (0.7-1.3) Estimated GFR (Cockcroft-Gault) 60.4 BUN/Creatinine Ratio 21 (6-20) Glucose Level 153 mg/dL (70-99) Calcium Level 9.5 mg/dL (8.5-10.1) Total Bilirubin 0.9 mg/dL (0.2-1.0) Aspartate Amino Transf (AST/SGOT) 22 U/L (15-37) Alanine Aminotransferase (ALT/SGPT) 41 U/L (16-63) Alkaline Phosphatase 110 U/L (46-116) Creatine Kinase 77 U/L (39-308) Total Protein 6.9 g/dL (6.4-8.2) Albumin 2.0 g/dL (3.4-5.0) Albumin/Globulin Ratio 0.4 (1.0-1.7) Glucose (Fingerstick) 152 mg/dL (70-99) Objective: Assessment: GPC bacteremia (1 of 4 bottles), 03/10,ID still pending Pulmonary infiltrate - GPC on gram stain, 03/11 Leukocytosis improving 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 cont Dapto off Levaquin Dose dexamethasone, 03/09 f/u cultures check c diff pcr D/w nursing Critically ill Overall prognosis poor LINO TABOR MD Mar 17, 2019 07:37
[2019-03-17] MEDS: IPRATRPIUM/ALBUTEROL 0.5/2.5MG 3 ML NEBU. NEB SCH ×4 (07:42→19:27)
[2019-03-17] MEDS: FAMOTIDINE 20 MG/2 ML VIAL IVP SCH ×2 (08:32→21:56)
[2019-03-17] MEDS: CHLORHEXIDINE 0.12% 15 ML MOUTHWASH. MM SCH ×2 (08:33→21:58)
[2019-03-17] MEDS: ASPIRIN CHEWABLE 81 MG TABLET. PO SCH (08:33)
[2019-03-17] MEDS: hydrALAZINE 20 MG/ML VIAL. IVP PRN ×2 (08:58→18:08)
[2019-03-17 09:19] LABS: BASE EXCESS ABG 2 mmol/L (-3-3); HCO3 ABG 28 mmol/L (21-28); PCO2 ABG 52 mmHg (35-46); PO2 ABG 64 mmHg (75-108); SAT O2 ABG 91 % (92-99)
[2019-03-17 09:21] LABS: FIO2 ABG 100
--- NOTE | 2019-03-17 10:56 | PDOC ---
PULMONARY PROGRESS NOTES Subjective on vent, sedated on fentanyl, precedex, versed, small ett secretion on 100% FIO2, 14 of PEEP remains critically ill Vitals Vital Signs Date Time Temp Pulse Resp B/P (MAP) Pulse Ox O2 Delivery O2 Flow Rate FiO2 03/17/19 10:23 99 Ventilator 03/17/19 10:00 66 20 163/89 (113) 03/17/19 08:00 97.1 97.1 03/16/19 15:15 15.0 Comments ros as mentioned as mentioned as above other sys otherwise neg on vent sedated Lungs: Other (decrease bs) Cardiovascular: S1, S2 Abdomen: Soft, Non-tender, Other (obese) Extremities: Other (lymphedema) Skin: Warm Labs Laboratory Tests Test 03/15/19 11:26 03/15/19 17:49 03/16/19 00:20 03/16/19 05:30 Glucose (Fingerstick) 107 mg/dL (70-99) 107 mg/dL (70-99) 106 mg/dL (70-99) White Blood Count 13.7 x10^3/uL (4.0-11.0) Red Blood Count 4.90 x10^6/uL (4.30-5.70) Hemoglobin 11.9 g/dL (13.0-17.5) Hematocrit 38.7 % (39.0-53.0) Mean Corpuscular Volume 79 fL (79-100) Mean Corpuscular Hemoglobin 24 pg (25-35) Mean Corpuscular Hemoglobin Concent 31 g/dL (31-37) Red Cell Distribution Width 18.7 % (11.5-14.5) Platelet Count 174 x10^3/uL (140-400) Neutrophils (%) (Auto) 80 % (31-73) Lymphocytes (%) (Auto) 5 % (24-48) Monocytes (%) (Auto) 10 % (0-9) Eosinophils (%) (Auto) 4 % (0-3) Basophils (%) (Auto) 0 % (0-3) Neutrophils # (Auto) 11.0 x10^3/uL (1.8-7.7) Lymphocytes # (Auto) 0.7 x10^3/uL (1.0-4.8) Monocytes # (Auto) 1.4 x10^3/uL (0.0-1.1) Eosinophils # (Auto) 0.6 x10^3/uL (0.0-0.7) Basophils # (Auto) 0.1 x10^3/uL (0.0-0.2) Sodium Level 138 mmol/L (136-145) Potassium Level 4.5 mmol/L (3.5-5.1) Chloride Level 101 mmol/L (98-107) Carbon Dioxide Level 32 mmol/L (21-32) Anion Gap 5 (6-14) Blood Urea Nitrogen 28 mg/dL (8-26) Creatinine 1.4 mg/dL (0.7-1.3) Estimated GFR (Cockcroft-Gault) 65.4 Glucose Level 107 mg/dL (70-99) Calcium Level 9.2 mg/dL (8.5-10.1) Test 03/16/19 05:53 03/16/19 08:10 03/16/19 11:49 03/16/19 16:52 Glucose (Fingerstick) 108 mg/dL (70-99) 116 mg/dL (70-99) 151 mg/dL (70-99) O2 Saturation 92 % (92-99) Arterial Blood pH 7.39 (7.35-7.45) Arterial Blood pCO2 at Patient Temp 49 mmHg (35-46) Arterial Blood pO2 at Patient Temp 67 mmHg (75-108) Arterial Blood HCO3 29 mmol/L (21-28) Arterial Blood Base Excess 3 mmol/L (-3-3) FiO2 100 Test 03/17/19 00:17 03/17/19 05:50 03/17/19 05:55 03/17/19 09:10 Glucose (Fingerstick) 156 mg/dL (70-99) 152 mg/dL (70-99) White Blood Count 8.6 x10^3/uL (4.0-11.0) Red Blood Count 4.96 x10^6/uL (4.30-5.70) Hemoglobin 12.0 g/dL (13.0-17.5) Hematocrit 38.9 % (39.0-53.0) Mean Corpuscular Volume 78 fL (79-100) Mean Corpuscular Hemoglobin 24 pg (25-35) Mean Corpuscular Hemoglobin Concent 31 g/dL (31-37) Red Cell Distribution Width 18.8 % (11.5-14.5) Platelet Count 197 x10^3/uL (140-400) Neutrophils (%) (Auto) 91 % (31-73) Lymphocytes (%) (Auto) 5 % (24-48) Monocytes (%) (Auto) 4 % (0-9) Eosinophils (%) (Auto) 0 % (0-3) Basophils (%) (Auto) 0 % (0-3) Neutrophils # (Auto) 7.9 x10^3/uL (1.8-7.7) Lymphocytes # (Auto) 0.5 x10^3/uL (1.0-4.8) Monocytes # (Auto) 0.3 x10^3/uL (0.0-1.1) Eosinophils # (Auto) 0.0 x10^3/uL (0.0-0.7) Basophils # (Auto) 0.0 x10^3/uL (0.0-0.2) Sodium Level 138 mmol/L (136-145) Potassium Level 4.6 mmol/L (3.5-5.1) Chloride Level 102 mmol/L (98-107) Carbon Dioxide Level 32 mmol/L (21-32) Anion Gap 4 (6-14) Blood Urea Nitrogen 31 mg/dL (8-26) Creatinine 1.5 mg/dL (0.7-1.3) Estimated GFR (Cockcroft-Gault) 60.4 BUN/Creatinine Ratio 21 (6-20) Glucose Level 153 mg/dL (70-99) Calcium Level 9.5 mg/dL (8.5-10.1) Total Bilirubin 0.9 mg/dL (0.2-1.0) Aspartate Amino Transf (AST/SGOT) 22 U/L (15-37) Alanine Aminotransferase (ALT/SGPT) 41 U/L (16-63) Alkaline Phosphatase 110 U/L (46-116) Creatine Kinase 77 U/L (39-308) Total Protein 6.9 g/dL (6.4-8.2) Albumin 2.0 g/dL (3.4-5.0) Albumin/Globulin Ratio 0.4 (1.0-1.7) O2 Saturation 91 % (92-99) Arterial Blood pH 7.35 (7.35-7.45) Arterial Blood pCO2 at Patient Temp 52 mmHg (35-46) Arterial Blood pO2 at Patient Temp 64 mmHg (75-108) Arterial Blood HCO3 28 mmol/L (21-28) Arterial Blood Base Excess 2 mmol/L (-3-3) FiO2 100 Laboratory Tests Test 03/16/19 11:49 03/16/19 16:52 03/17/19 00:17 03/17/19 05:50 Glucose (Fingerstick) 116 mg/dL (70-99) 151 mg/dL (70-99) 156 mg/dL (70-99) White Blood Count 8.6 x10^3/uL (4.0-11.0) Red Blood Count 4.96 x10^6/uL (4.30-5.70) Hemoglobin 12.0 g/dL (13.0-17.5) Hematocrit 38.9 % (39.0-53.0) Mean Corpuscular Volume 78 fL (79-100) Mean Corpuscular Hemoglobin 24 pg (25-35) Mean Corpuscular Hemoglobin Concent 31 g/dL (31-37) Red Cell Distribution Width 18.8 % (11.5-14.5) Platelet Count 197 x10^3/uL (140-400) Neutrophils (%) (Auto) 91 % (31-73) Lymphocytes (%) (Auto) 5 % (24-48) Monocytes (%) (Auto) 4 % (0-9) Eosinophils (%) (Auto) 0 % (0-3) Basophils (%) (Auto) 0 % (0-3) Neutrophils # (Auto) 7.9 x10^3/uL (1.8-7.7) Lymphocytes # (Auto) 0.5 x10^3/uL (1.0-4.8) Monocytes # (Auto) 0.3 x10^3/uL (0.0-1.1) Eosinophils # (Auto) 0.0 x10^3/uL (0.0-0.7) Basophils # (Auto) 0.0 x10^3/uL (0.0-0.2) Sodium Level 138 mmol/L (136-145) Potassium Level 4.6 mmol/L (3.5-5.1) Chloride Level 102 mmol/L (98-107) Carbon Dioxide Level 32 mmol/L (21-32) Anion Gap 4 (6-14) Blood Urea Nitrogen 31 mg/dL (8-26) Creatinine 1.5 mg/dL (0.7-1.3) Estimated GFR (Cockcroft-Gault) 60.4 BUN/Creatinine Ratio 21 (6-20) Glucose Level 153 mg/dL (70-99) Calcium Level 9.5 mg/dL (8.5-10.1) Total Bilirubin 0.9 mg/dL (0.2-1.0) Aspartate Amino Transf (AST/SGOT) 22 U/L (15-37) Alanine Aminotransferase (ALT/SGPT) 41 U/L (16-63) Alkaline Phosphatase 110 U/L (46-116) Creatine Kinase 77 U/L (39-308) Total Protein 6.9 g/dL (6.4-8.2) Albumin 2.0 g/dL (3.4-5.0) Albumin/Globulin Ratio 0.4 (1.0-1.7) Test 03/17/19 05:55 03/17/19 09:10 Glucose (Fingerstick) 152 mg/dL (70-99) O2 Saturation 91 % (92-99) Arterial Blood pH 7.35 (7.35-7.45) Arterial Blood pCO2 at Patient Temp 52 mmHg (35-46) Arterial Blood pO2 at Patient Temp 64 mmHg (75-108) Arterial Blood HCO3 28 mmol/L (21-28) Arterial Blood Base Excess 2 mmol/L (-3-3) FiO2 100 Medications Active Scripts Medications Dose Route/Sig Max Daily Dose Days Date Category Hydrochlorothiazide Tablet (Hydrochlorothiazide) 25 Mg Tablet 25 Mg PO DAILY 03/10/19 Reported Norvasc (Amlodipine Besylate) 5 Mg Tablet 1 Tab PO DAILY 01/12/19 Rx Lisinopril 5 Mg Tablet 1 Tab PO DAILY 01/12/19 Rx Comments cxr reviewed 03/17 Diffuse bilateral infiltrate, worse on left .ett ok Impression . 1. Acute hypercapnic respiratory failure secondary to multifactorial etiologies.related to acute lung injury/noncardiogenic pulmonary edema/ ARDS due to vaping. Needing max amount of oxygen and high PEEP c/w shunt physiology due to ARDS CTA non diagnostic for PE. Dopplers neg 2. Abnormal chest x-ray with bilateral lung infiltrates. noncardiogenic pulmonary edema. CT chest reviewed. Now with fever and worsening left lung infiltrate,? superimposed VAP, check all cultures. Abx per ID/ fever improving 3. History of morbid obesity with Pickwickian physiology with chronic hypercapnia and chronic hypoxic respiratory failure, history of obstructive sleep apnea as well, but noncompliant to CPAP. 4. Acute kidney injury. stable 5. Increased troponin. Possible non-ST myocardial infarction. 6. Previous echo with normal ejection fraction. PA 55 likely secondary pulmonary HTN 7. History of tobacco use. Plan . 1. Continue with present assist control mode and PEEP of 14,100%FIO2. titrate fi02 to keep sat 92%, make necessary adjustment based on followup ABGs. cont vent support.Poor prognosis. ok with permissive hypercapnia/ cannot be transfered to for ECHMO/ will not survive the transfer. 2. high dose steroids 03/16 initiated 3. No acute bleed on CT head. 4. Abx per ID, check all new cultures 5. Monitor fever and white cell count. 6. Continue bronchodilators. 7. Heparin for DVT prophylaxis 8. diuresis.d/w renal. lasix drip 9. family meeting again today regarding critical condition and goals of care discussed with RN and RT. We will follow along with you. 10. Condition guarded cct 30 min MARIO ALLEN MD Mar 17, 2019 10:56
--- NOTE | 2019-03-17 11:33 | PDOC ---
[facility] [facility] PROGRESS NOTE Chief Complaint Chief Complaint Acute Hypercapnic Respiratory Failure/ARDS due to vaping Pulmonary Edema Bilateral Lung Infiltrates Obstructive sleep apnea OSMAN Increased Troponin Morbid Obesity Pulmonary HTN Tobacco use History of Present Illness History of Present Illness 03/17/19 Pt seen and examined in ICU on vent (AC/16/600/100 14peep) Pt has rectal tube and fontana to BSD Sedated with versed, fentanyl, and precedex Pt has ET tube and OG tube to LIS JUANA RN DW case supervisor Chart reviewed Vitals/I&O Vitals/I&O: Vital Signs Date Time Temp Pulse Resp B/P (MAP) Pulse Ox O2 Delivery O2 Flow Rate FiO2 03/17/19 11:07 99 Ventilator 03/17/19 11:00 60 29 159/87 (111) 03/17/19 08:00 97.1 97.1 03/16/19 15:15 15.0 I & O 03/16/19 03/16/19 03/17/19 15:00 23:00 07:00 Intake Total 500 ml 2929 ml 2476 ml Output Total 325 ml 1280 ml 1470 ml Balance 175 ml 1649 ml 1006 ml Physical Exam Physical Exam: GENERAL: Orally intubated and sedated. HEENT: Pupils equal, small. OGT/ETT NECK: Supple LUNGS: dec bs at bases HEART: S1 and S2, regular. ABDOMEN: Obese, soft, +BS : Fontana in place fecal tube in place EXTREMITIES: Trace edema - MITTS SKIN: Chronic stasis dermatitis on the lower extremity. NEUROLOGIC: Sedated RIJ clean General: No acute distress, Other (short neck , Mallampati 4 ON VENT) Heart: Regular rate (SR), Other (distante heart sounds) Lungs: Other (decrease bs) Abdomen: Normal bowel sounds, Soft, No tenderness, No hepatosplenomegaly, No masses Extremities: No clubbing, No cyanosis, No edema, Normal pulses, No tenderness/swelling Skin: No rashes, No breakdown, No significant lesion Labs Labs: Laboratory Tests Test 03/16/19 11:49 03/16/19 16:52 03/17/19 00:17 03/17/19 05:50 Glucose (Fingerstick) 116 mg/dL (70-99) 151 mg/dL (70-99) 156 mg/dL (70-99) White Blood Count 8.6 x10^3/uL (4.0-11.0) Red Blood Count 4.96 x10^6/uL (4.30-5.70) Hemoglobin 12.0 g/dL (13.0-17.5) Hematocrit 38.9 % (39.0-53.0) Mean Corpuscular Volume 78 fL (79-100) Mean Corpuscular Hemoglobin 24 pg (25-35) Mean Corpuscular Hemoglobin Concent 31 g/dL (31-37) Red Cell Distribution Width 18.8 % (11.5-14.5) Platelet Count 197 x10^3/uL (140-400) Neutrophils (%) (Auto) 91 % (31-73) Lymphocytes (%) (Auto) 5 % (24-48) Monocytes (%) (Auto) 4 % (0-9) Eosinophils (%) (Auto) 0 % (0-3) Basophils (%) (Auto) 0 % (0-3) Neutrophils # (Auto) 7.9 x10^3/uL (1.8-7.7) Lymphocytes # (Auto) 0.5 x10^3/uL (1.0-4.8) Monocytes # (Auto) 0.3 x10^3/uL (0.0-1.1) Eosinophils # (Auto) 0.0 x10^3/uL (0.0-0.7) Basophils # (Auto) 0.0 x10^3/uL (0.0-0.2) Sodium Level 138 mmol/L (136-145) Potassium Level 4.6 mmol/L (3.5-5.1) Chloride Level 102 mmol/L (98-107) Carbon Dioxide Level 32 mmol/L (21-32) Anion Gap 4 (6-14) Blood Urea Nitrogen 31 mg/dL (8-26) Creatinine 1.5 mg/dL (0.7-1.3) Estimated GFR (Cockcroft-Gault) 60.4 BUN/Creatinine Ratio 21 (6-20) Glucose Level 153 mg/dL (70-99) Calcium Level 9.5 mg/dL (8.5-10.1) Total Bilirubin 0.9 mg/dL (0.2-1.0) Aspartate Amino Transf (AST/SGOT) 22 U/L (15-37) Alanine Aminotransferase (ALT/SGPT) 41 U/L (16-63) Alkaline Phosphatase 110 U/L (46-116) Creatine Kinase 77 U/L (39-308) Total Protein 6.9 g/dL (6.4-8.2) Albumin 2.0 g/dL (3.4-5.0) Albumin/Globulin Ratio 0.4 (1.0-1.7) Test 03/17/19 05:55 03/17/19 09:10 Glucose (Fingerstick) 152 mg/dL (70-99) O2 Saturation 91 % (92-99) Arterial Blood pH 7.35 (7.35-7.45) Arterial Blood pCO2 at Patient Temp 52 mmHg (35-46) Arterial Blood pO2 at Patient Temp 64 mmHg (75-108) Arterial Blood HCO3 28 mmol/L (21-28) Arterial Blood Base Excess 2 mmol/L (-3-3) FiO2 100 Review of Systems Review of Systems: No co vision changes No co diarrhea Assessment and Plan Assessmemt and Plan Problems Medical Problems: (1) CHF exacerbation Status: Acute (2) COPD exacerbation Status: Acute (3) Hypoxia Status: Acute (4) NSTEMI (non-ST elevated myocardial infarction) Status: Acute (5) Respiratory failure Status: Acute Assessment Acute Hypercapnic Respiratory Failure/ARDS due to vaping Pulmonary Edema Bilateral Lung Infiltrates Obstructive sleep apnea OSMAN Increased Troponin Morbid Obesity Pulmonary HTN Tobacco use Plan IV Zyvox ICU monitoring Vent [facility] Palliative care meeting at 13:30 today Versed, Fentanyl, and Precedex Fontana to BSD OG feeds PPN Rectal tube monitoring Continual lasix drip Prognosis guarded Full Code Prognosis guarded Appreciate subspecialty input Total time 32 min Comment Review of Relevant I have reviewed the following items peter (where applicable) has been applied. Medications: Current Medications Medications (Trade) Dose Ordered Sig/Stefanie Route PRN Reason Start Time Stop Time Status Last Admin Dose Admin Daptomycin 830 mg/ Sodium Chloride 50 ml @ 100 mls/hr Q24H IV 03/16/19 14:00 03/16/19 14:02 Methylprednisolone Sodium Succinate (SOLU-Medrol 125MG VIAL) 100 mg Q8HRS IV 03/16/19 12:00 03/17/19 06:00 Furosemide (Lasix) 40 mg 1X ONCE IVP 03/16/19 16:30 03/16/19 16:31 DC 03/16/19 16:46 TRICIA NAVA III DO Mar 17, 2019 11:33
--- NOTE | 2019-03-17 13:50 | PDOC ---
Renal-Progress Notes Subjective Notes Notes INTUBATED History of Present Illness Hx of present illness NO CHANGE Vitals Vitals Vital Signs Date Time Temp Pulse Resp B/P (MAP) Pulse Ox O2 Delivery O2 Flow Rate FiO2 03/17/19 13:26 99 Ventilator 03/17/19 12:00 97.5 66 28 148/81 (103) 97.5 03/16/19 15:15 15.0 Weight Weight [ ] I.O. Intake and Output Intake and Output 03/17/19 07:00 Intake Total 5905 ml Output Total 3075 ml Balance 2830 ml IV Total 2188 ml Tube Feeding 2517 ml Other 1200 ml Output Urine Total 2175 ml Stool Total 900 ml Gastric Drainage Total 0 ml # Bowel Movements 3 Labs Labs Laboratory Tests Test 03/16/19 16:52 03/17/19 00:17 03/17/19 05:50 03/17/19 05:55 Glucose (Fingerstick) 151 mg/dL (70-99) 156 mg/dL (70-99) 152 mg/dL (70-99) White Blood Count 8.6 x10^3/uL (4.0-11.0) Red Blood Count 4.96 x10^6/uL (4.30-5.70) Hemoglobin 12.0 g/dL (13.0-17.5) Hematocrit 38.9 % (39.0-53.0) Mean Corpuscular Volume 78 fL (79-100) Mean Corpuscular Hemoglobin 24 pg (25-35) Mean Corpuscular Hemoglobin Concent 31 g/dL (31-37) Red Cell Distribution Width 18.8 % (11.5-14.5) Platelet Count 197 x10^3/uL (140-400) Neutrophils (%) (Auto) 91 % (31-73) Lymphocytes (%) (Auto) 5 % (24-48) Monocytes (%) (Auto) 4 % (0-9) Eosinophils (%) (Auto) 0 % (0-3) Basophils (%) (Auto) 0 % (0-3) Neutrophils # (Auto) 7.9 x10^3/uL (1.8-7.7) Lymphocytes # (Auto) 0.5 x10^3/uL (1.0-4.8) Monocytes # (Auto) 0.3 x10^3/uL (0.0-1.1) Eosinophils # (Auto) 0.0 x10^3/uL (0.0-0.7) Basophils # (Auto) 0.0 x10^3/uL (0.0-0.2) Sodium Level 138 mmol/L (136-145) Potassium Level 4.6 mmol/L (3.5-5.1) Chloride Level 102 mmol/L (98-107) Carbon Dioxide Level 32 mmol/L (21-32) Anion Gap 4 (6-14) Blood Urea Nitrogen 31 mg/dL (8-26) Creatinine 1.5 mg/dL (0.7-1.3) Estimated GFR (Cockcroft-Gault) 60.4 BUN/Creatinine Ratio 21 (6-20) Glucose Level 153 mg/dL (70-99) Calcium Level 9.5 mg/dL (8.5-10.1) Total Bilirubin 0.9 mg/dL (0.2-1.0) Aspartate Amino Transf (AST/SGOT) 22 U/L (15-37) Alanine Aminotransferase (ALT/SGPT) 41 U/L (16-63) Alkaline Phosphatase 110 U/L (46-116) Creatine Kinase 77 U/L (39-308) Total Protein 6.9 g/dL (6.4-8.2) Albumin 2.0 g/dL (3.4-5.0) Albumin/Globulin Ratio 0.4 (1.0-1.7) Test 03/17/19 09:10 O2 Saturation 91 % (92-99) Arterial Blood pH 7.35 (7.35-7.45) Arterial Blood pCO2 at Patient Temp 52 mmHg (35-46) Arterial Blood pO2 at Patient Temp 64 mmHg (75-108) Arterial Blood HCO3 28 mmol/L (21-28) Arterial Blood Base Excess 2 mmol/L (-3-3) FiO2 100 Micro Micro Microbiology 03/16/19 Blood Culture - Preliminary, Resulted NO GROWTH AFTER 1 DAY 03/11/19 - Final, Complete 03/11/19 - Final, Complete 03/11/19 - Final, Complete 03/11/19 Gram Stain Evaluation - Final, Complete 03/11/19 Sputum Culture - Final, Complete 03/11/19 Sputum Result 1 - Final, Complete 03/09/19 Urine Culture - Final, Complete 03/09/19 Urine Culture Result 1 (WIL) - Final, Complete Review of Systems Constitutional: yes: unresponsive Physical Exam General Appearance: other (SEDATED) Skin: warm Respiratory: decreased breath sounds Heart: S1S2 Abdomen: soft, bowel sounds present Genitourinary: bladder flat Extremities: pulses present Neurology: other (SEDATED) Musculoskeletal: Other (obese) Assessment Assessment IMP OSMAN IMPROVED WITH CR OF 1.5 CKD STAGE 2 WITH CR OF 1.2 ACUTE HYPERCAPNIC RESP [id number] NEEDING FIO2 100% HX OF TOBACCO AND VAPING PLAN SUPPORTIVE CARE ANTIBIOTICS LASIX GTT TRIAL WILL FOLLOW D/W MYESHA VANEGAS MD Mar 17, 2019 13:50
[2019-03-17] MEDS: DAPTOMYCIN IV SCH (14:47)
[2019-03-17] MEDS: NORMAL SALINE IV SCH (14:47)
[2019-03-17] MEDS: FUROSEMIDE INJ 100 MG in IV NORMAL SALINE 100ML 100 ML IV PRN (16:20)
--- NOTE | 2019-03-17 16:25 | PDOC2 ---
PALLIATIVE CARE Palliative Care Note Palliative Care Patient remains on Vent. 100% Peep 14; sedation Dr. Conley and I met with patient's family; Gaby and Tanna--sisters and brother--Margarito and his . Dr. Conley reviewed the current medical condition; including high oxygen needs; PeeP 14. Discussed the following; Risk of tracheostomy: Risk of transfer to another facility. Lack of progress Discussed resuscitation; Family requests DNR. Understand without this attempt he likely would . Will continue with ventilator and adjusting oxygen /Peep for benefits. [facility] will assist with Medicaid zuri. Patient does not have AD. Never specifically mentioned his wishes. Lived alone when he came back to [facility]. This was not a planned move. Patient had been away form [facility] for 16 years. patient had smoked (10 years) and began Vaping six years ago to their knowledge. Patient and family have suffered several tragic losses of family members in the last 3 years. Family concerned that he may have had some depression with these losses. Family shared that he did not want to be in the hospital. He did not actively participate in sabianism. 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 Plan; DNR Continue current treatment plan. FRANCIS DELATORRE Mar 17, 2019 16:25
[2019-03-18] VITALS (24 sets, daily range): BP systolic 126–190; BP diastolic 68–108
[2019-03-18] MEDS: FUROSEMIDE INJ 100 MG in IV NORMAL SALINE 100ML 100 ML IV PRN ×2 (00:16→16:51)
[2019-03-18] MEDS: PIPERACILLIN/TAZOBACTAM 3.375 GM in IV NORMAL SALINE 50ML 50 ML IV SCH ×4 (00:18→17:38)
[2019-03-18] MEDS: DEXMEDETOMIDINE 400 MCG in IV NORMAL SALINE 100ML 96 ML IV PRN ×7 (02:31→22:19)
[2019-03-18] MEDS: INSULIN LISPRO 300 UNITS/3 ML VIAL. SQ SCH ×4 (06:00→18:00)
[2019-03-18] MEDS: methylPREDNISolone SOD SUCC PF 125 MG/2 ML VIAL. IV SCH ×3 (06:15→21:12)
[2019-03-18] MEDS: HEPARIN for SUB-Q USE 5,000 UNIT/ML VIAL. SQ SCH ×3 (06:19→21:14)
[2019-03-18 06:55] LABS: CALCIUM 9.5 mg/dL (8.5-10.1); CREATININE 1.4 mg/dL (0.7-1.3); GFR 65.4; MAGNESIUM 2.3 mg/dL (1.8-2.4); POTASSIUM 4.2 mmol/L (3.5-5.1)
[2019-03-18 06:59] LABS: BASO % 0 % (0-3); EOS % 0 % (0-3); HEMATOCRIT 39.1 % (39.0-53.0); HEMOGLOBIN 12.2 g/dL (13.0-17.5); LYMPH # 0.2 x10^3/uL (1.0-4.8); LYMPH % 3 % (24-48); MEAN CORPUSCULAR HEMOGLOBIN 24 pg (25-35); MEAN CORPUSCULAR HGB CONC 31 g/dL (31-37); MEAN CORPUSCULAR VOLUME 78 fL (79-100); MONO # 0.4 x10^3/uL (0.0-1.1); MONO % 7 % (0-9); NEUT # 5.6 x10^3/uL (1.8-7.7); NEUT % 90 % (31-73); PLATELET COUNT 217 x10^3/uL (140-400); RED CELL DISTRIBUTION WIDTH 18.9 % (11.5-14.5); WHITE BLOOD COUNT 6.2 x10^3/uL (4.0-11.0)
--- NOTE | 2019-03-18 07:16 | PDOC ---
Infectious Disease Note Subjective: Subjective Sedated Orally intubated, d/w rn no fevers Fio2 100%, PEEP of 14 on iv lasix ROS: ROS unable to obtain Vital Signs: Vital Signs Vital Signs Date Time Temp Pulse Resp B/P (MAP) Pulse Ox O2 Delivery O2 Flow Rate FiO2 03/18/19 06:00 74 20 169/68 (101) 99 Ventilator 03/18/19 04:00 98.8 98.8 03/18/19 02:32 15.0 Physical Exam: PHYSICAL EXAM GENERAL: Orally intubated and sedated. HEENT: Pupils equal, small. OGT/ETT NECK: Supple LUNGS: dec bs at bases HEART: S1 and S2, regular. ABDOMEN: Obese, soft, +BS : Ramos in place fecal tube in place EXTREMITIES: Trace edema - MITTS SKIN: Chronic stasis dermatitis on the lower extremity. NEUROLOGIC: Sedated RIJ clean Medications: Inpatient Meds: Current Medications Medications (Trade) Dose Ordered Sig/Stefanie Start Time Stop Time Status Last Admin Dose Admin Albuterol/ Ipratropium (Duoneb) 3 ml RTQID 03/10/19 12:00 03/17/19 19:27 3 ML Amlodipine Besylate (Norvasc) 10 mg DAILY 03/11/19 09:00 03/11/19 12:50 DC 03/11/19 09:37 10 MG Artificial Tears (Artificial Tears) 1 drop PRN Q1HR PRN 03/10/19 07:30 03/13/19 13:32 1 DROP Aspirin (Aspirin Rectal Supp) 300 mg 1X ONCE 03/10/19 00:00 03/10/19 00:01 DC 03/10/19 03:42 300 MG Aspirin (Amanda Aspirin) 325 mg 1X ONCE 03/10/19 10:30 03/10/19 10:31 DC 03/10/19 10:55 325 MG Aspirin (Children'S Aspirin) 81 mg DAILYWBKFT 03/11/19 08:00 03/17/19 08:33 81 MG Atropine Sulfate (ATROPINE 0.5mg SYRINGE) 0.5 mg PRN Q5MIN PRN 03/12/19 20:30 Bumetanide (Bumex) 1 mg 1X ONCE 03/10/19 00:00 03/10/19 00:01 DC 03/10/19 00:21 1 MG Chlorhexidine Gluconate (Peridex) 15 ml BID 03/10/19 09:00 03/17/19 21:58 15 ML Clonidine HCl (Catapres) 0.1 mg 1X ONCE 03/10/19 01:30 03/10/19 01:34 DC Daptomycin 1320 mg/Sodium Chloride 50 ml @ 100 mls/hr ONCE ONCE 03/15/19 13:00 03/16/19 09:33 DC 03/15/19 13:53 100 MLS/HR Daptomycin 1340 mg/Sodium Chloride 50 ml @ 100 mls/hr Q24H 03/16/19 09:00 Cancel Daptomycin 830 mg/ Sodium Chloride 50 ml @ 100 mls/hr Q24H 03/16/19 14:00 03/17/19 14:55 100 MLS/HR Dexamethasone Sodium Phosphate (Decadron) 10 mg 1X ONCE 03/09/19 22:00 03/09/19 22:01 DC 03/09/19 22:29 10 MG Dexmedetomidine HCl 400 mcg/ Sodium Chloride 100 ml @ 0 mls/hr CONT PRN 03/12/19 20:30 03/18/19 05:47 27 MLS/HR Dextrose 250 ml PRN Q15MIN PRN 03/12/19 16:15 Dextrose (Dextrose 50%-Water Syringe) 12.5 gm PRN Q15MIN PRN 03/12/19 16:15 Etomidate (Amidate) 20 mg STK-MED ONCE 03/10/19 05:15 03/10/19 05:16 DC Famotidine (Pepcid Vial) 20 mg BID 03/10/19 09:00 UNV Fentanyl Citrate (Fentanyl 2ml Vial) 50 mcg PRN Q1HR PRN 03/10/19 07:30 Fentanyl Citrate (Fentanyl 600 Mcg/30 ml [employer]PER[employer]) 600 mcg STK-MED ONCE 03/13/19 17:00 03/17/19 11:02 DC Furosemide (Lasix) 40 mg 1X ONCE 03/16/19 16:30 03/16/19 16:31 DC 03/16/19 16:46 40 MG Furosemide 100 mg/ Sodium Chloride 100 ml @ 5 mls/hr CONT PRN 03/17/19 15:45 03/18/19 00:20 5 MLS/HR Heparin Sodium (Porcine) (Heparin Sodium) 5,000 unit Q8HRS 03/11/19 22:00 03/18/19 06:25 5,000 UNIT Heparin Sodium/ Dextrose 500 ml @ 0 mls/hr CONT PRN 03/09/19 23:45 03/11/19 16:13 DC 03/10/19 23:34 1,300 MLS/HR Hydralazine HCl (Apresoline Inj) 10 mg PRN Q4HRS PRN 03/11/19 13:00 03/17/19 18:08 10 MG Hydrochlorothiazide (Hydrodiuril) 25 mg DAILY 03/10/19 09:00 03/10/19 10:04 DC 03/10/19 09:13 25 MG Info (CONTRAST GIVEN -- Rx MONITORING) 1 each PRN DAILY PRN 03/10/19 11:45 03/12/19 11:44 DC Insulin Human Lispro (HumaLOG) 0-9 UNITS Q6HRS 03/12/19 18:00 03/17/19 18:07 4 UNITS Iohexol (Omnipaque 350 Mg/ml) 100 ml 1X ONCE 03/10/19 11:45 03/10/19 11:47 DC 03/10/19 14:05 100 ML Levofloxacin/ Dextrose 100 ml @ 100 mls/hr Q24H 03/10/19 09:00 03/14/19 09:25 DC 03/14/19 08:10 100 MLS/HR Levofloxacin/ Dextrose (Levaquin Per Pharmacy) 1 each PRN DAILY PRN 03/10/19 08:15 03/14/19 09:25 DC Linezolid/Dextrose 300 ml @ 300 mls/hr Q12HR 03/11/19 21:00 03/17/19 21:58 300 MLS/HR Lisinopril (Prinivil) 5 mg DAILY 03/10/19 09:00 03/10/19 10:04 DC 03/10/19 09:13 5 MG Lorazepam (Ativan Inj) 1 mg PRN Q1HR PRN 03/11/19 11:00 03/14/19 16:32 1 MG Magnesium Sulfate/ Dextrose 100 ml @ 50 mls/hr DAILY 03/11/19 09:00 03/14/19 08:59 DC 03/11/19 09:28 50 MLS/HR Methylprednisolone Sodium Succinate (SOLU-Medrol 125MG VIAL) 100 mg Q8HRS 03/16/19 12:00 03/18/19 06:25 100 MG Midazolam HCl 100 ml @ 0 mls/hr CONT PRN 03/10/19 07:30 03/17/19 22:21 8 MLS/HR Midazolam HCl (Versed) 5 mg 1X ONCE 03/10/19 01:30 03/10/19 01:34 DC 03/10/19 01:28 5 MG Morphine Sulfate (Morphine Sulfate) 4 mg PRN Q1HR PRN 03/10/19 07:30 Multi-Ingred Cream/Lotion/Oil/ Oint (Artificial Tears Eye Ointment) 1 zuri PRN Q1HR PRN 03/12/19 09:00 Norepinephrine Bitartrate 250 ml @ 27.837 mls/ hr CONT PRN 03/11/19 13:00 03/13/19 04:13 1.392 MLS/HR Perflutren Protein Type A Microsphe (Optison) 0.66 mg 1X ONCE 03/13/19 09:15 03/13/19 09:16 DC 03/13/19 09:40 0.66 MG Piperacillin Sod/ Tazobactam Sod (Zosyn Per Pharmacy) 1 each PRN DAILY PRN 03/10/19 11:45 Piperacillin Sod/ Tazobactam Sod 3.375 gm/Sodium Chloride 50 ml @ 100 mls/hr Q6HRS 03/10/19 12:30 03/18/19 06:25 100 MLS/HR Piperacillin Sod/ Tazobactam Sod 4.5 gm/Sodium Chloride 100 ml @ 200 mls/hr 1X ONCE 03/10/19 00:30 03/10/19 00:59 DC 03/10/19 05:19 200 MLS/HR Potassium Chloride/Water 50 ml @ 50 mls/hr 1X ONCE 03/12/19 10:30 03/12/19 11:31 DC Potassium Phosphate 27.2 mmol/Sodium Chloride 259.0667 ml @ 64.753 m... 1X ONCE 03/11/19 14:00 03/11/19 18:00 DC Propofol 100 ml @ 0 mls/hr CONT PRN 03/10/19 07:30 Rocuronium [place] (Zemuron) 50 mg STK-MED ONCE 03/10/19 05:15 03/10/19 05:15 DC Sodium Chloride 500 ml @ 500 mls/hr 1X PRN PRN 03/12/19 20:30 03/12/19 23:22 500 MLS/HR Vancomycin HCl (Vanco Per Pharmacy) 1 each PRN DAILY PRN 03/10/19 11:45 03/11/19 13:57 DC 03/11/19 09:42 1 EACH Vancomycin HCl (Vancomycin Trough Level) 1 each 1X ONCE 03/12/19 12:30 03/12/19 12:31 Cancel Vancomycin HCl 1.75 gm/Sodium Chloride 500 ml @ 250 mls/hr Q12H 03/11/19 01:00 03/11/19 13:57 DC 03/11/19 12:43 250 MLS/HR Vancomycin HCl 2 gm/Sodium Chloride 500 ml @ 250 mls/hr 1X ONCE 03/10/19 13:00 03/10/19 14:59 DC 03/10/19 12:41 250 MLS/HR Vecuronium [place] (Norcuron Bolus) 10 mg PRN Q1HR PRN 03/13/19 07:30 Labs: Lab Laboratory Tests Test 03/17/19 09:10 03/17/19 11:37 03/17/19 18:06 03/18/19 00:19 O2 Saturation 91 % (92-99) Arterial Blood pH 7.35 (7.35-7.45) Arterial Blood pCO2 at Patient Temp 52 mmHg (35-46) Arterial Blood pO2 at Patient Temp 64 mmHg (75-108) Arterial Blood HCO3 28 mmol/L (21-28) Arterial Blood Base Excess 2 mmol/L (-3-3) FiO2 100 Glucose (Fingerstick) 160 mg/dL (70-99) 159 mg/dL (70-99) 158 mg/dL (70-99) Test 03/18/19 06:24 03/18/19 06:30 Glucose (Fingerstick) 155 mg/dL (70-99) White Blood Count 6.2 x10^3/uL (4.0-11.0) Red Blood Count 5.00 x10^6/uL (4.30-5.70) Hemoglobin 12.2 g/dL (13.0-17.5) Hematocrit 39.1 % (39.0-53.0) Mean Corpuscular Volume 78 fL (79-100) Mean Corpuscular Hemoglobin 24 pg (25-35) Mean Corpuscular Hemoglobin Concent 31 g/dL (31-37) Red Cell Distribution Width 18.9 % (11.5-14.5) Platelet Count 217 x10^3/uL (140-400) Neutrophils (%) (Auto) 90 % (31-73) Lymphocytes (%) (Auto) 3 % (24-48) Monocytes (%) (Auto) 7 % (0-9) Eosinophils (%) (Auto) 0 % (0-3) Basophils (%) (Auto) 0 % (0-3) Neutrophils # (Auto) 5.6 x10^3/uL (1.8-7.7) Lymphocytes # (Auto) 0.2 x10^3/uL (1.0-4.8) Monocytes # (Auto) 0.4 x10^3/uL (0.0-1.1) Eosinophils # (Auto) 0.0 x10^3/uL (0.0-0.7) Basophils # (Auto) 0.0 x10^3/uL (0.0-0.2) Sodium Level 141 mmol/L (136-145) Potassium Level 4.2 mmol/L (3.5-5.1) Chloride Level 102 mmol/L (98-107) Carbon Dioxide Level 30 mmol/L (21-32) Anion Gap 9 (6-14) Blood Urea Nitrogen 37 mg/dL (8-26) Creatinine 1.4 mg/dL (0.7-1.3) Estimated GFR (Cockcroft-Gault) 65.4 Glucose Level 162 mg/dL (70-99) Calcium Level 9.5 mg/dL (8.5-10.1) Magnesium Level 2.3 mg/dL (1.8-2.4) Objective: Assessment: GPC bacteremia (1 of 4 bottles), 03/10,ID still pending Acute resp failure, intubated, Pulmonary infiltrate - GPC on gram stain, 03/11 ,not identified legionella ,strep pneu ,mycoplasma neg Leukocytosis resolved Fever resolved OSMAN CHF Super morbid obesity, BMI 61 Vaping Plan: Plan of Care Continue Zyvox and Zosyn. cont Dapto off Levaquin Dose dexamethasone, 03/09 f/u cultures D/w nursing Critically ill Overall prognosis poor TABOR,ARUNDHATI S MD Mar 18, 2019 07:16
[2019-03-18] MEDS: IPRATRPIUM/ALBUTEROL 0.5/2.5MG 3 ML NEBU. NEB SCH ×4 (07:35→20:16)
[2019-03-18 07:48] LABS: BASE EXCESS ABG 3 mmol/L (-3-3); HCO3 ABG 29 mmol/L (21-28); PCO2 ABG 50 mmHg (35-46); PO2 ABG 66 mmHg (75-108); SAT O2 ABG 93 % (92-99)
[2019-03-18] MEDS: FAMOTIDINE 20 MG/2 ML VIAL IVP SCH ×2 (08:44→21:12)
[2019-03-18] MEDS: ASPIRIN CHEWABLE 81 MG TABLET. PO SCH (08:44)
[2019-03-18] MEDS: CHLORHEXIDINE 0.12% 15 ML MOUTHWASH. MM SCH ×2 (08:44→21:13)
[2019-03-18] MEDS: MIDAZOLAM 100mg/100ml NS BAG 100 ML IV PRN ×2 (08:44→18:51)
[2019-03-18 09:02] LABS: FIO2 ABG 100
--- NOTE | 2019-03-18 10:35 | PDOC ---
Renal-Progress Notes Subjective Notes Notes ON THE VENT History of Present Illness Hx of present illness NO CHANGE Vitals Vitals Vital Signs Date Time Temp Pulse Resp B/P (MAP) Pulse Ox O2 Delivery O2 Flow Rate FiO2 03/18/19 09:33 94 Ventilator 03/18/19 06:00 74 20 169/68 (101) 03/18/19 04:00 98.8 98.8 03/18/19 02:32 15.0 Weight Weight [ ] I.O. Intake and Output Intake and Output 03/18/19 07:00 Intake Total 3877.01 ml Output Total 1775 ml Balance 2102.01 ml IV Total 1128.01 ml Tube Feeding 2149 ml Other 600 ml Output Urine Total 1775 ml Gastric Drainage Total 0 ml Labs Labs Laboratory Tests Test 03/17/19 11:37 03/17/19 18:06 03/18/19 00:19 03/18/19 06:24 Glucose (Fingerstick) 160 mg/dL (70-99) 159 mg/dL (70-99) 158 mg/dL (70-99) 155 mg/dL (70-99) Test 03/18/19 06:30 03/18/19 07:30 White Blood Count 6.2 x10^3/uL (4.0-11.0) Red Blood Count 5.00 x10^6/uL (4.30-5.70) Hemoglobin 12.2 g/dL (13.0-17.5) Hematocrit 39.1 % (39.0-53.0) Mean Corpuscular Volume 78 fL (79-100) Mean Corpuscular Hemoglobin 24 pg (25-35) Mean Corpuscular Hemoglobin Concent 31 g/dL (31-37) Red Cell Distribution Width 18.9 % (11.5-14.5) Platelet Count 217 x10^3/uL (140-400) Neutrophils (%) (Auto) 90 % (31-73) Lymphocytes (%) (Auto) 3 % (24-48) Monocytes (%) (Auto) 7 % (0-9) Eosinophils (%) (Auto) 0 % (0-3) Basophils (%) (Auto) 0 % (0-3) Neutrophils # (Auto) 5.6 x10^3/uL (1.8-7.7) Lymphocytes # (Auto) 0.2 x10^3/uL (1.0-4.8) Monocytes # (Auto) 0.4 x10^3/uL (0.0-1.1) Eosinophils # (Auto) 0.0 x10^3/uL (0.0-0.7) Basophils # (Auto) 0.0 x10^3/uL (0.0-0.2) Sodium Level 141 mmol/L (136-145) Potassium Level 4.2 mmol/L (3.5-5.1) Chloride Level 102 mmol/L (98-107) Carbon Dioxide Level 30 mmol/L (21-32) Anion Gap 9 (6-14) Blood Urea Nitrogen 37 mg/dL (8-26) Creatinine 1.4 mg/dL (0.7-1.3) Estimated GFR (Cockcroft-Gault) 65.4 Glucose Level 162 mg/dL (70-99) Calcium Level 9.5 mg/dL (8.5-10.1) Magnesium Level 2.3 mg/dL (1.8-2.4) O2 Saturation 93 % (92-99) Arterial Blood pH 7.39 (7.35-7.45) Arterial Blood pCO2 at Patient Temp 50 mmHg (35-46) Arterial Blood pO2 at Patient Temp 66 mmHg (75-108) Arterial Blood HCO3 29 mmol/L (21-28) Arterial Blood Base Excess 3 mmol/L (-3-3) FiO2 100 Micro Micro Microbiology 03/16/19 - Final, Resulted 03/16/19 - Final, Resulted 03/16/19 - Preliminary, Resulted 03/16/19 - Preliminary, Resulted 03/16/19 - Preliminary, Resulted 03/16/19 - Preliminary, Resulted 03/16/19 Gram Stain Evaluation - Final, Resulted 03/16/19 Sputum Culture - Preliminary, Resulted 03/16/19 Sputum Result 1 - Final, Resulted 03/16/19 Blood Culture - Preliminary, Resulted NO GROWTH AFTER 2 DAYS 03/09/19 Urine Culture - Final, Complete 03/09/19 Urine Culture Result 1 (WIL) - Final, Complete Review of Systems Constitutional: yes: unresponsive Physical Exam General Appearance: other (SEDATED) Skin: warm Respiratory: decreased breath sounds Heart: S1S2 Abdomen: soft, bowel sounds present Genitourinary: bladder flat Extremities: pulses present Neurology: other (SEDATED) Musculoskeletal: Other (obese) Assessment Assessment IMP OSMAN IMPROVED WITH CR OF 1.4 CKD STAGE 2 WITH CR OF 1.2 ACUTE HYPERCAPNIC RESP [id number] NEEDING FIO2 100% HX OF TOBACCO AND VAPING MORBID OBESITY PLAN SUPPORTIVE CARE ANTIBIOTICS INCREASE LASIX GTT WILL FOLLOW D/W MYESHA VANEGAS MD Mar 18, 2019 10:35
[2019-03-18 10:50] LABS: % BANDS 6 % (0-9); % LYMPHS 3 % (24-48); % MONOS 5 % (0-10); % SEGS 86 % (35-66)
[2019-03-18 10:51] LABS: PLT ESTIMATE ADEQUATE (ADEQUATE)
[2019-03-18 10:52] LABS: ANISOCYTOSIS PRESENT
--- NOTE | 2019-03-18 11:11 | PDOC ---
PULMONARY PROGRESS NOTES Subjective on vent, sedated on fentanyl, precedex, versed, small ett secretion on 100% FIO2, 14 of PEEP remains critically ill Vitals Vital Signs Date Time Temp Pulse Resp B/P (MAP) Pulse Ox O2 Delivery O2 Flow Rate FiO2 03/18/19 09:33 94 Ventilator 03/18/19 06:00 74 20 169/68 (101) 03/18/19 04:00 98.8 98.8 03/18/19 02:32 15.0 Comments ros as mentioned as mentioned as above other sys otherwise neg on vent sedated Lungs: Other (decrease bs) Cardiovascular: S1, S2 Abdomen: Soft, Non-tender, Other (obese) Extremities: Other (lymphedema) Skin: Warm Labs Laboratory Tests Test 03/16/19 11:49 03/16/19 16:52 03/17/19 00:17 03/17/19 05:50 Glucose (Fingerstick) 116 mg/dL (70-99) 151 mg/dL (70-99) 156 mg/dL (70-99) White Blood Count 8.6 x10^3/uL (4.0-11.0) Red Blood Count 4.96 x10^6/uL (4.30-5.70) Hemoglobin 12.0 g/dL (13.0-17.5) Hematocrit 38.9 % (39.0-53.0) Mean Corpuscular Volume 78 fL (79-100) Mean Corpuscular Hemoglobin 24 pg (25-35) Mean Corpuscular Hemoglobin Concent 31 g/dL (31-37) Red Cell Distribution Width 18.8 % (11.5-14.5) Platelet Count 197 x10^3/uL (140-400) Neutrophils (%) (Auto) 91 % (31-73) Lymphocytes (%) (Auto) 5 % (24-48) Monocytes (%) (Auto) 4 % (0-9) Eosinophils (%) (Auto) 0 % (0-3) Basophils (%) (Auto) 0 % (0-3) Neutrophils # (Auto) 7.9 x10^3/uL (1.8-7.7) Lymphocytes # (Auto) 0.5 x10^3/uL (1.0-4.8) Monocytes # (Auto) 0.3 x10^3/uL (0.0-1.1) Eosinophils # (Auto) 0.0 x10^3/uL (0.0-0.7) Basophils # (Auto) 0.0 x10^3/uL (0.0-0.2) Sodium Level 138 mmol/L (136-145) Potassium Level 4.6 mmol/L (3.5-5.1) Chloride Level 102 mmol/L (98-107) Carbon Dioxide Level 32 mmol/L (21-32) Anion Gap 4 (6-14) Blood Urea Nitrogen 31 mg/dL (8-26) Creatinine 1.5 mg/dL (0.7-1.3) Estimated GFR (Cockcroft-Gault) 60.4 BUN/Creatinine Ratio 21 (6-20) Glucose Level 153 mg/dL (70-99) Calcium Level 9.5 mg/dL (8.5-10.1) Total Bilirubin 0.9 mg/dL (0.2-1.0) Aspartate Amino Transf (AST/SGOT) 22 U/L (15-37) Alanine Aminotransferase (ALT/SGPT) 41 U/L (16-63) Alkaline Phosphatase 110 U/L (46-116) Creatine Kinase 77 U/L (39-308) Total Protein 6.9 g/dL (6.4-8.2) Albumin 2.0 g/dL (3.4-5.0) Albumin/Globulin Ratio 0.4 (1.0-1.7) Test 03/17/19 05:55 03/17/19 09:10 03/17/19 11:37 03/17/19 18:06 Glucose (Fingerstick) 152 mg/dL (70-99) 160 mg/dL (70-99) 159 mg/dL (70-99) O2 Saturation 91 % (92-99) Arterial Blood pH 7.35 (7.35-7.45) Arterial Blood pCO2 at Patient Temp 52 mmHg (35-46) Arterial Blood pO2 at Patient Temp 64 mmHg (75-108) Arterial Blood HCO3 28 mmol/L (21-28) Arterial Blood Base Excess 2 mmol/L (-3-3) FiO2 100 Test 03/18/19 00:19 03/18/19 06:24 03/18/19 06:30 03/18/19 07:30 Glucose (Fingerstick) 158 mg/dL (70-99) 155 mg/dL (70-99) White Blood Count 6.2 x10^3/uL (4.0-11.0) Red Blood Count 5.00 x10^6/uL (4.30-5.70) Hemoglobin 12.2 g/dL (13.0-17.5) Hematocrit 39.1 % (39.0-53.0) Mean Corpuscular Volume 78 fL (79-100) Mean Corpuscular Hemoglobin 24 pg (25-35) Mean Corpuscular Hemoglobin Concent 31 g/dL (31-37) Red Cell Distribution Width 18.9 % (11.5-14.5) Platelet Count 217 x10^3/uL (140-400) Neutrophils (%) (Auto) 90 % (31-73) Lymphocytes (%) (Auto) 3 % (24-48) Monocytes (%) (Auto) 7 % (0-9) Eosinophils (%) (Auto) 0 % (0-3) Basophils (%) (Auto) 0 % (0-3) Neutrophils # (Auto) 5.6 x10^3/uL (1.8-7.7) Lymphocytes # (Auto) 0.2 x10^3/uL (1.0-4.8) Monocytes # (Auto) 0.4 x10^3/uL (0.0-1.1) Eosinophils # (Auto) 0.0 x10^3/uL (0.0-0.7) Basophils # (Auto) 0.0 x10^3/uL (0.0-0.2) Segmented Neutrophils % 86 % (35-66) Band Neutrophils % 6 % (0-9) Lymphocytes % 3 % (24-48) Monocytes % 5 % (0-10) Platelet Estimate Adequate (ADEQUATE) Anisocytosis Present Sodium Level 141 mmol/L (136-145) Potassium Level 4.2 mmol/L (3.5-5.1) Chloride Level 102 mmol/L (98-107) Carbon Dioxide Level 30 mmol/L (21-32) Anion Gap 9 (6-14) Blood Urea Nitrogen 37 mg/dL (8-26) Creatinine 1.4 mg/dL (0.7-1.3) Estimated GFR (Cockcroft-Gault) 65.4 Glucose Level 162 mg/dL (70-99) Calcium Level 9.5 mg/dL (8.5-10.1) Magnesium Level 2.3 mg/dL (1.8-2.4) O2 Saturation 93 % (92-99) Arterial Blood pH 7.39 (7.35-7.45) Arterial Blood pCO2 at Patient Temp 50 mmHg (35-46) Arterial Blood pO2 at Patient Temp 66 mmHg (75-108) Arterial Blood HCO3 29 mmol/L (21-28) Arterial Blood Base Excess 3 mmol/L (-3-3) FiO2 100 Laboratory Tests Test 03/17/19 11:37 03/17/19 18:06 03/18/19 00:19 03/18/19 06:24 Glucose (Fingerstick) 160 mg/dL (70-99) 159 mg/dL (70-99) 158 mg/dL (70-99) 155 mg/dL (70-99) Test 03/18/19 06:30 03/18/19 07:30 White Blood Count 6.2 x10^3/uL (4.0-11.0) Red Blood Count 5.00 x10^6/uL (4.30-5.70) Hemoglobin 12.2 g/dL (13.0-17.5) Hematocrit 39.1 % (39.0-53.0) Mean Corpuscular Volume 78 fL (79-100) Mean Corpuscular Hemoglobin 24 pg (25-35) Mean Corpuscular Hemoglobin Concent 31 g/dL (31-37) Red Cell Distribution Width 18.9 % (11.5-14.5) Platelet Count 217 x10^3/uL (140-400) Neutrophils (%) (Auto) 90 % (31-73) Lymphocytes (%) (Auto) 3 % (24-48) Monocytes (%) (Auto) 7 % (0-9) Eosinophils (%) (Auto) 0 % (0-3) Basophils (%) (Auto) 0 % (0-3) Neutrophils # (Auto) 5.6 x10^3/uL (1.8-7.7) Lymphocytes # (Auto) 0.2 x10^3/uL (1.0-4.8) Monocytes # (Auto) 0.4 x10^3/uL (0.0-1.1) Eosinophils # (Auto) 0.0 x10^3/uL (0.0-0.7) Basophils # (Auto) 0.0 x10^3/uL (0.0-0.2) Segmented Neutrophils % 86 % (35-66) Band Neutrophils % 6 % (0-9) Lymphocytes % 3 % (24-48) Monocytes % 5 % (0-10) Platelet Estimate Adequate (ADEQUATE) Anisocytosis Present Sodium Level 141 mmol/L (136-145) Potassium Level 4.2 mmol/L (3.5-5.1) Chloride Level 102 mmol/L (98-107) Carbon Dioxide Level 30 mmol/L (21-32) Anion Gap 9 (6-14) Blood Urea Nitrogen 37 mg/dL (8-26) Creatinine 1.4 mg/dL (0.7-1.3) Estimated GFR (Cockcroft-Gault) 65.4 Glucose Level 162 mg/dL (70-99) Calcium Level 9.5 mg/dL (8.5-10.1) Magnesium Level 2.3 mg/dL (1.8-2.4) O2 Saturation 93 % (92-99) Arterial Blood pH 7.39 (7.35-7.45) Arterial Blood pCO2 at Patient Temp 50 mmHg (35-46) Arterial Blood pO2 at Patient Temp 66 mmHg (75-108) Arterial Blood HCO3 29 mmol/L (21-28) Arterial Blood Base Excess 3 mmol/L (-3-3) FiO2 100 Medications Active Scripts Medications Dose Route/Sig Max Daily Dose Days Date Category Hydrochlorothiazide Tablet (Hydrochlorothiazide) 25 Mg Tablet 25 Mg PO DAILY 03/10/19 Reported Norvasc (Amlodipine Besylate) 5 Mg Tablet 1 Tab PO DAILY 01/12/19 Rx Lisinopril 5 Mg Tablet 1 Tab PO DAILY 01/12/19 Rx Comments cxr reviewed 03/16 Diffuse bilateral infiltrate, worse on left .ett ok Impression . 1. Acute hypercapnic respiratory failure secondary to multifactorial etiologies.related to acute lung injury/non-cardiogenic pulmonary edema/ ARDS due to vaping. Needing max amount of oxygen and high PEEP c/w shunt physiology due to ARDS CTA non diagnostic for PE. Dopplers neg 2. Abnormal chest x-ray with bilateral lung infiltrates. noncardiogenic pulmonary edema. CT chest reviewed. Developed fever 03/16 and worsening left lung infiltrate,? superimposed VAP, check all cultures. Abx per ID/ fever improving 3. History of morbid obesity with Pickwickian physiology with chronic hypercapnia and chronic hypoxic respiratory failure, history of obstructive sleep apnea as well, but noncompliant to CPAP. 4. Acute kidney injury. stable 5. Increased troponin. Possible non-ST myocardial infarction. 6. Previous echo with normal ejection fraction. PA 55 likely secondary pulmonary HTN 7. History of tobacco use. Plan . 1. Continue with present assist control mode and PEEP of 14,100%FIO2. titrate fi02 to keep sat 92%, make necessary adjustment based on followup ABGs. cont vent support.Poor prognosis. ok with permissive hypercapnia/ [facility]/ will not survive the transfer. 2. high dose steroids 03/16 initiated 3. No acute bleed on CT head. 4. Abx per ID, check all new cultures 5. Monitor fever and white cell count. 6. Continue bronchodilators. 7. Heparin for DVT prophylaxis 8. diuresis.d/w renal. lasix drip 9. family meeting again yesterday done regarding critical condition and goals of care. reviewed the current medical condition; including high oxygen needs; PEEP 14. Discussed the following; Risk of tracheostomy: Risk of transfer to another facility. Lack of progress Discussed resuscitation; Family requests DNR.Continue aggressive supportive care discussed with RN and RT. We will follow along with you. MARIO ALLEN MD Mar 18, 2019 11:11
--- NOTE | 2019-03-18 13:04 | PDOC ---
[employer] PROGRESS NOTE Chief Complaint Chief Complaint Acute Hypercapnic Respiratory Failure/ARDS due to vaping Pulmonary Edema Bilateral Lung Infiltrates Obstructive sleep apnea OSMAN Increased Troponin Morbid Obesity Pulmonary HTN Tobacco use History of Present Illness History of Present Illness 03/18/19 Pt seen and examined in ICU on vent (vent settings: AC/16/00/100% 14 PEEP) Pt sedated with versed, fentanyl, and precedex Rectal tube placed Fontana to BSD Has OG tube to LIS; ET tube placed DW RN Chart reviewed 03/17/19 Pt seen and examined in ICU on vent (AC//600/100 14peep) Pt has rectal tube and fontana to BSD Sedated with versed, fentanyl, and precedex Pt has ET tube and OG tube to LIS DW RN DW case fitter Chart reviewed Vitals/I&O Vitals/I&O: Vital Signs Date Time Temp Pulse Resp B/P (MAP) Pulse Ox O2 Delivery O2 Flow Rate FiO2 03/18/19 12:52 Ventilator 03/18/19 12:10 98 03/18/19 10:00 70 20 174/94 (120) 03/18/19 08:00 97.0 97.0 03/18/19 02:32 15.0 I & O 03/17/19 03/17/19 03/18/19 15:00 23:00 07:00 Intake Total 400 ml 1923.01 ml 1554 ml Output Total 475 ml 600 ml 700 ml Balance -75 ml 1323.01 ml 854 ml Physical Exam Physical Exam: GENERAL: Orally intubated and sedated. HEENT: Pupils equal, small. OGT/ETT NECK: Supple LUNGS: dec bs at bases HEART: S1 and S2, regular. ABDOMEN: Obese, soft, +BS : Fontana in place fecal tube in place EXTREMITIES: Trace edema - MITTS SKIN: Chronic stasis dermatitis on the lower extremity. NEUROLOGIC: Sedated RIJ clean General: No acute distress, Other (short neck , Mallampati 4 ON VENT) Heart: Regular rate (SR), Other (distante heart sounds) Lungs: Other (decrease bs) Abdomen: Normal bowel sounds, Soft, No tenderness, No hepatosplenomegaly, No masses Extremities: No clubbing, No cyanosis, No edema, Normal pulses, No tenderness/swelling Skin: No rashes, No breakdown, No significant lesion Labs Labs: Laboratory Tests Test 03/17/19 18:06 03/18/19 00:19 03/18/19 06:24 03/18/19 06:30 Glucose (Fingerstick) 159 mg/dL (70-99) 158 mg/dL (70-99) 155 mg/dL (70-99) White Blood Count 6.2 x10^3/uL (4.0-11.0) Red Blood Count 5.00 x10^6/uL (4.30-5.70) Hemoglobin 12.2 g/dL (13.0-17.5) Hematocrit 39.1 % (39.0-53.0) Mean Corpuscular Volume 78 fL (79-100) Mean Corpuscular Hemoglobin 24 pg (25-35) Mean Corpuscular Hemoglobin Concent 31 g/dL (31-37) Red Cell Distribution Width 18.9 % (11.5-14.5) Platelet Count 217 x10^3/uL (140-400) Neutrophils (%) (Auto) 90 % (31-73) Lymphocytes (%) (Auto) 3 % (24-48) Monocytes (%) (Auto) 7 % (0-9) Eosinophils (%) (Auto) 0 % (0-3) Basophils (%) (Auto) 0 % (0-3) Neutrophils # (Auto) 5.6 x10^3/uL (1.8-7.7) Lymphocytes # (Auto) 0.2 x10^3/uL (1.0-4.8) Monocytes # (Auto) 0.4 x10^3/uL (0.0-1.1) Eosinophils # (Auto) 0.0 x10^3/uL (0.0-0.7) Basophils # (Auto) 0.0 x10^3/uL (0.0-0.2) Segmented Neutrophils % 86 % (35-66) Band Neutrophils % 6 % (0-9) Lymphocytes % 3 % (24-48) Monocytes % 5 % (0-10) Platelet Estimate Adequate (ADEQUATE) Anisocytosis Present Sodium Level 141 mmol/L (136-145) Potassium Level 4.2 mmol/L (3.5-5.1) Chloride Level 102 mmol/L (98-107) Carbon Dioxide Level 30 mmol/L (21-32) Anion Gap 9 (6-14) Blood Urea Nitrogen 37 mg/dL (8-26) Creatinine 1.4 mg/dL (0.7-1.3) Estimated GFR (Cockcroft-Gault) 65.4 Glucose Level 162 mg/dL (70-99) Calcium Level 9.5 mg/dL (8.5-10.1) Magnesium Level 2.3 mg/dL (1.8-2.4) Test 03/18/19 07:30 O2 Saturation 93 % (92-99) Arterial Blood pH 7.39 (7.35-7.45) Arterial Blood pCO2 at Patient Temp 50 mmHg (35-46) Arterial Blood pO2 at Patient Temp 66 mmHg (75-108) Arterial Blood HCO3 29 mmol/L (21-28) Arterial Blood Base Excess 3 mmol/L (-3-3) FiO2 100 Review of Systems Review of Systems: No co changes in vision No co acute pain Assessment and Plan Assessmemt and Plan Problems Medical Problems: (1) CHF exacerbation Status: Acute (2) COPD exacerbation Status: Acute (3) Hypoxia Status: Acute (4) NSTEMI (non-ST elevated myocardial infarction) Status: Acute (5) Respiratory failure Status: Acute Assessment Acute Hypercapnic Respiratory Failure/ARDS due to vaping Pulmonary Edema Bilateral Lung Infiltrates Obstructive sleep apnea OSMAN Increased Troponin Morbid Obesity Pulmonary HTN Tobacco use Plan ICU monitoring Continue IV Abx (zyvox) Vent weening Sedate with Versed, Fentanyl, and Precedex Monitor rectal tube Fontana to BSD Feed with OG PPN Lasix drip Prognosis guarded Full Code Appreciate subspecialty input Comment Review of Relevant I have reviewed the following items peter (where applicable) has been applied. Medications: Current Medications Medications (Trade) Dose Ordered Sig/Stefanie Route PRN Reason Start Time Stop Time Status Last Admin Dose Admin Furosemide 100 mg/ Sodium Chloride 100 ml @ 5 mls/hr CONT PRN IV SEE I/O RECORD 03/17/19 15:45 03/18/19 10:36 DC 03/18/19 00:20 TRICIA NAVA III DO Mar 18, 2019 13:04
[2019-03-18] MEDS: hydrALAZINE 20 MG/ML VIAL. IVP PRN (14:08)
[2019-03-18] MEDS: DAPTOMYCIN IV SCH (15:01)
[2019-03-18] MEDS: NORMAL SALINE IV SCH (15:01)
[2019-03-19] VITALS (22 sets, daily range): BP systolic 137–187; BP diastolic 68–132
[2019-03-19] MEDS: PIPERACILLIN/TAZOBACTAM 3.375 GM in IV NORMAL SALINE 50ML 50 ML IV SCH ×4 (00:23→17:21)
[2019-03-19] MEDS: hydrALAZINE 20 MG/ML VIAL. IVP PRN (01:32)
[2019-03-19] MEDS: DEXMEDETOMIDINE 400 MCG in IV NORMAL SALINE 100ML 96 ML IV PRN ×7 (01:38→23:29)
[2019-03-19] MEDS: MIDAZOLAM 100mg/100ml NS BAG 100 ML IV PRN ×3 (02:29→15:59)
[2019-03-19] MEDS: FUROSEMIDE INJ 100 MG in IV NORMAL SALINE 100ML 100 ML IV PRN ×2 (04:43→15:58)
[2019-03-19] MEDS: INSULIN LISPRO 300 UNITS/3 ML VIAL. SQ SCH ×4 (06:00→17:24)
[2019-03-19 06:13] LABS: BASO % 0 % (0-3); EOS % 0 % (0-3); HEMATOCRIT 39.7 % (39.0-53.0); HEMOGLOBIN 12.5 g/dL (13.0-17.5); LYMPH # 0.3 x10^3/uL (1.0-4.8); LYMPH % 4 % (24-48); MEAN CORPUSCULAR HEMOGLOBIN 24 pg (25-35); MEAN CORPUSCULAR HGB CONC 31 g/dL (31-37); MEAN CORPUSCULAR VOLUME 77 fL (79-100); MONO # 0.5 x10^3/uL (0.0-1.1); MONO % 7 % (0-9); NEUT # 6.1 x10^3/uL (1.8-7.7); NEUT % 89 % (31-73); PLATELET COUNT 223 x10^3/uL (140-400); RED BLOOD COUNT 5.14 x10^6/uL (4.30-5.70); RED CELL DISTRIBUTION WIDTH 18.5 % (11.5-14.5); WHITE BLOOD COUNT 6.9 x10^3/uL (4.0-11.0)
[2019-03-19] MEDS: HEPARIN for SUB-Q USE 5,000 UNIT/ML VIAL. SQ SCH ×3 (06:13→21:36)
[2019-03-19] MEDS: methylPREDNISolone SOD SUCC PF 125 MG/2 ML VIAL. IV SCH ×3 (06:14→21:35)
[2019-03-19 06:37] LABS: CALCIUM 9.1 mg/dL (8.5-10.1); CREATININE 1.3 mg/dL (0.7-1.3); GFR 71.3; MAGNESIUM 2.1 mg/dL (1.8-2.4)
--- NOTE | 2019-03-19 07:08 | PDOC ---
Infectious Disease Note Subjective: Subjective Orally intubated, d/w rn no fevers Fio2 100%, PEEP of 14 ROS: ROS Negative otherwise. Vital Signs: Vital Signs Vital Signs Date Time Temp Pulse Resp B/P (MAP) Pulse Ox O2 Delivery O2 Flow Rate FiO2 03/19/19 06:14 100 15.0 03/19/19 06:00 64 19 171/91 (117) Ventilator 03/19/19 04:00 98.0 98.0 Physical Exam: PHYSICAL EXAM GENERAL: Orally intubated, opens eyes intermitently,does not follow commands HEENT: Pupils equal, small. OGT/ETT NECK: Supple LUNGS: dec bs at bases HEART: S1 and S2, regular. ABDOMEN: Obese, soft, +BS : Ramos in place fecal tube in place EXTREMITIES: Trace edema - MITTS SKIN: Chronic stasis dermatitis on the lower extremity. NEUROLOGIC: Sedated RIJ clean Medications: Inpatient Meds: Current Medications Medications (Trade) Dose Ordered Sig/Stefanie Start Time Stop Time Status Last Admin Dose Admin Albuterol/ Ipratropium (Duoneb) 3 ml RTQID 03/10/19 12:00 03/18/19 20:16 3 ML Amlodipine Besylate (Norvasc) 10 mg DAILY 03/11/19 09:00 03/11/19 12:50 DC 03/11/19 09:37 10 MG Artificial Tears (Artificial Tears) 1 drop PRN Q1HR PRN 03/10/19 07:30 03/13/19 13:32 1 DROP Aspirin (Aspirin Rectal Supp) 300 mg 1X ONCE 03/10/19 00:00 03/10/19 00:01 DC 03/10/19 03:42 300 MG Aspirin (Amanda Aspirin) 325 mg 1X ONCE 03/10/19 10:30 03/10/19 10:31 DC 03/10/19 10:55 325 MG Aspirin (Children'S Aspirin) 81 mg DAILYWBKFT 03/11/19 08:00 03/18/19 08:44 81 MG Atropine Sulfate (ATROPINE 0.5mg SYRINGE) 0.5 mg PRN Q5MIN PRN 03/12/19 20:30 Bumetanide (Bumex) 1 mg 1X ONCE 03/10/19 00:00 03/10/19 00:01 DC 03/10/19 00:21 1 MG Chlorhexidine Gluconate (Peridex) 15 ml BID 03/10/19 09:00 03/18/19 21:15 15 ML Clonidine HCl (Catapres) 0.1 mg 1X ONCE 03/10/19 01:30 03/10/19 01:34 DC Daptomycin 1320 mg/Sodium Chloride 50 ml @ 100 mls/hr ONCE ONCE 03/15/19 13:00 03/16/19 09:33 DC 03/15/19 13:53 100 MLS/HR Daptomycin 1340 mg/Sodium Chloride 50 ml @ 100 mls/hr Q24H 03/16/19 09:00 Cancel Daptomycin 830 mg/ Sodium Chloride 50 ml @ 100 mls/hr Q24H 03/16/19 14:00 03/18/19 15:03 100 MLS/HR Dexamethasone Sodium Phosphate (Decadron) 10 mg 1X ONCE 03/09/19 22:00 03/09/19 22:01 DC 03/09/19 22:29 10 MG Dexmedetomidine HCl 400 mcg/ Sodium Chloride 100 ml @ 0 mls/hr CONT PRN 03/12/19 20:30 03/19/19 06:58 27.1 MLS/HR Dextrose 250 ml PRN Q15MIN PRN 03/12/19 16:15 Dextrose (Dextrose 50%-Water Syringe) 12.5 gm PRN Q15MIN PRN 03/12/19 16:15 Etomidate (Amidate) 20 mg STK-MED ONCE 03/10/19 05:15 03/10/19 05:16 DC Famotidine (Pepcid Vial) 20 mg BID 03/10/19 09:00 UNV Fentanyl Citrate (Fentanyl 2ml Vial) 50 mcg PRN Q1HR PRN 03/10/19 07:30 Fentanyl Citrate (Fentanyl 600 Mcg/30 ml SHEET ROCK LAYER) 600 mcg STK-MED ONCE 03/13/19 17:00 03/17/19 11:02 DC Furosemide (Lasix) 40 mg 1X ONCE 03/16/19 16:30 03/16/19 16:31 DC 03/16/19 16:46 40 MG Furosemide 100 mg/ Sodium Chloride 100 ml @ 5 mls/hr CONT PRN 03/18/19 10:45 03/19/19 04:43 10 MLS/HR Heparin Sodium (Porcine) (Heparin Sodium) 5,000 unit Q8HRS 03/11/19 22:00 03/19/19 06:14 5,000 UNIT Heparin Sodium/ Dextrose 500 ml @ 0 mls/hr CONT PRN 03/09/19 23:45 03/11/19 16:13 DC 03/10/19 23:34 1,300 MLS/HR Hydralazine HCl (Apresoline Inj) 10 mg PRN Q4HRS PRN 03/11/19 13:00 03/19/19 01:32 10 MG Hydrochlorothiazide (Hydrodiuril) 25 mg DAILY 03/10/19 09:00 03/10/19 10:04 DC 03/10/19 09:13 25 MG Info (CONTRAST GIVEN -- Rx MONITORING) 1 each PRN DAILY PRN 03/10/19 11:45 03/12/19 11:44 DC Insulin Human Lispro (HumaLOG) 0-9 UNITS Q6HRS 03/12/19 18:00 03/18/19 18:35 4 UNITS Iohexol (Omnipaque 350 Mg/ml) 100 ml 1X ONCE 03/10/19 11:45 03/10/19 11:47 DC 03/10/19 14:05 100 ML Levofloxacin/ Dextrose 100 ml @ 100 mls/hr Q24H 03/10/19 09:00 03/14/19 09:25 DC 03/14/19 08:10 100 MLS/HR Levofloxacin/ Dextrose (Levaquin Per Pharmacy) 1 each PRN DAILY PRN 03/10/19 08:15 03/14/19 09:25 DC Linezolid/Dextrose 300 ml @ 300 mls/hr Q12HR 03/11/19 21:00 03/18/19 21:15 300 MLS/HR Lisinopril (Prinivil) 5 mg DAILY 03/10/19 09:00 03/10/19 10:04 DC 03/10/19 09:13 5 MG Lorazepam (Ativan Inj) 1 mg PRN Q1HR PRN 03/11/19 11:00 03/14/19 16:32 1 MG Magnesium Sulfate/ Dextrose 100 ml @ 50 mls/hr DAILY 03/11/19 09:00 03/14/19 08:59 DC 03/11/19 09:28 50 MLS/HR Methylprednisolone Sodium Succinate (SOLU-Medrol 125MG VIAL) 100 mg Q8HRS 03/16/19 12:00 03/19/19 06:14 100 MG Midazolam HCl 100 ml @ 0 mls/hr CONT PRN 03/10/19 07:30 03/19/19 02:29 10 MLS/HR Midazolam HCl (Versed) 5 mg 1X ONCE 03/10/19 01:30 03/10/19 01:34 DC 03/10/19 01:28 5 MG Morphine Sulfate (Morphine Sulfate) 4 mg PRN Q1HR PRN 03/10/19 07:30 Multi-Ingred Cream/Lotion/Oil/ Oint (Artificial Tears Eye Ointment) 1 zuri PRN Q1HR PRN 03/12/19 09:00 Norepinephrine Bitartrate 250 ml @ 27.837 mls/ hr CONT PRN 03/11/19 13:00 03/13/19 04:13 1.392 MLS/HR Perflutren Protein Type A Microsphe (Optison) 0.66 mg 1X ONCE 03/13/19 09:15 03/13/19 09:16 DC 03/13/19 09:40 0.66 MG Piperacillin Sod/ Tazobactam Sod (Zosyn Per Pharmacy) 1 each PRN DAILY PRN 03/10/19 11:45 Piperacillin Sod/ Tazobactam Sod 3.375 gm/Sodium Chloride 50 ml @ 100 mls/hr Q6HRS 03/10/19 12:30 03/19/19 06:14 100 MLS/HR Piperacillin Sod/ Tazobactam Sod 4.5 gm/Sodium Chloride 100 ml @ 200 mls/hr 1X ONCE 03/10/19 00:30 03/10/19 00:59 DC 03/10/19 05:19 200 MLS/HR Potassium Chloride/Water 50 ml @ 50 mls/hr 1X ONCE 03/12/19 10:30 03/12/19 11:31 DC Potassium Phosphate 27.2 mmol/Sodium Chloride 259.0667 ml @ 64.753 m... 1X ONCE 03/11/19 14:00 03/11/19 18:00 DC Propofol 100 ml @ 0 mls/hr CONT PRN 03/10/19 07:30 Rocuronium [place] (Zemuron) 50 mg STK-MED ONCE 03/10/19 05:15 03/10/19 05:15 DC Sodium Chloride 500 ml @ 500 mls/hr 1X PRN PRN 03/12/19 20:30 03/12/19 23:22 500 MLS/HR Vancomycin HCl (Vanco Per Pharmacy) 1 each PRN DAILY PRN 03/10/19 11:45 03/11/19 13:57 DC 03/11/19 09:42 1 EACH Vancomycin HCl (Vancomycin Trough Level) 1 each 1X ONCE 03/12/19 12:30 03/12/19 12:31 Cancel Vancomycin HCl 1.75 gm/Sodium Chloride 500 ml @ 250 mls/hr Q12H 03/11/19 01:00 03/11/19 13:57 DC 03/11/19 12:43 250 MLS/HR Vancomycin HCl 2 gm/Sodium Chloride 500 ml @ 250 mls/hr 1X ONCE 03/10/19 13:00 03/10/19 14:59 DC 03/10/19 12:41 250 MLS/HR Vecuronium [place] (Norcuron Bolus) 10 mg PRN Q1HR PRN 03/13/19 07:30 Labs: Lab Laboratory Tests Test 03/18/19 07:30 03/18/19 12:50 03/18/19 17:41 03/19/19 00:27 O2 Saturation 93 % (92-99) Arterial Blood pH 7.39 (7.35-7.45) Arterial Blood pCO2 at Patient Temp 50 mmHg (35-46) Arterial Blood pO2 at Patient Temp 66 mmHg (75-108) Arterial Blood HCO3 29 mmol/L (21-28) Arterial Blood Base Excess 3 mmol/L (-3-3) FiO2 100 Glucose (Fingerstick) 175 mg/dL (70-99) 159 mg/dL (70-99) 143 mg/dL (70-99) Test 03/19/19 06:05 03/19/19 06:07 White Blood Count 6.9 x10^3/uL (4.0-11.0) Red Blood Count 5.14 x10^6/uL (4.30-5.70) Hemoglobin 12.5 g/dL (13.0-17.5) Hematocrit 39.7 % (39.0-53.0) Mean Corpuscular Volume 77 fL (79-100) Mean Corpuscular Hemoglobin 24 pg (25-35) Mean Corpuscular Hemoglobin Concent 31 g/dL (31-37) Red Cell Distribution Width 18.5 % (11.5-14.5) Platelet Count 223 x10^3/uL (140-400) Neutrophils (%) (Auto) 89 % (31-73) Lymphocytes (%) (Auto) 4 % (24-48) Monocytes (%) (Auto) 7 % (0-9) Eosinophils (%) (Auto) 0 % (0-3) Basophils (%) (Auto) 0 % (0-3) Neutrophils # (Auto) 6.1 x10^3/uL (1.8-7.7) Lymphocytes # (Auto) 0.3 x10^3/uL (1.0-4.8) Monocytes # (Auto) 0.5 x10^3/uL (0.0-1.1) Eosinophils # (Auto) 0.0 x10^3/uL (0.0-0.7) Basophils # (Auto) 0.0 x10^3/uL (0.0-0.2) Sodium Level 141 mmol/L (136-145) Potassium Level 4.0 mmol/L (3.5-5.1) Chloride Level 101 mmol/L (98-107) Carbon Dioxide Level 34 mmol/L (21-32) Anion Gap 6 (6-14) Blood Urea Nitrogen 46 mg/dL (8-26) Creatinine 1.3 mg/dL (0.7-1.3) Estimated GFR (Cockcroft-Gault) 71.3 Glucose Level 138 mg/dL (70-99) Calcium Level 9.1 mg/dL (8.5-10.1) Magnesium Level 2.1 mg/dL (1.8-2.4) Glucose (Fingerstick) 140 mg/dL (70-99) Micro RUN DATE: 03/18/19 PAGE 1 RUN TIME: 1909 [facility] [address] [place] [address] Julián Ledesma M.D., [employer] PATIENT: GENESIS TALAVERA ACCT: [id number] LOC: 1 [facility] U: [id number] AGE/SX: 48/M ROOM: 113 RE03/09/[address]: ADELAIDA VALENTINE MD : 1970 BED: 1 DIS: STATUS: ADM IN TLOC: SPEC #: [id number] SHANITA: 03/10/19 STATUS: COMP REQ #: [id number] RECD: 03/10/[address]: WHITNEY HESTER DO SOURCE: BLOOD ENTR: 03/15/[address]: VIDAL MTZ SPDESC: ORDERED: BLD CULT - LC Procedure Result -- BLOOD CULTURE LC Final Final report BLD CULT RESULT 1 Final Dermabacter hominis Susceptibility not normally performed on this organism. Performed at: - [facility] [address] [facility] [address], [place], [place] [id number] Crystal Flat Grinder: ALFREDO Cortez MD, Phone: [phone] Objective: Assessment: GPC bacteremia (1 of 4 bottles), 03/10,Dermabacter hominis ,likely contaminant, no further nicho available repeat bc neg Acute resp failure, intubated, Pulmonary infiltrate - GPC on gram stain, 03/11 ,not identified legionella ,strep pneu ,mycoplasma neg Leukocytosis resolved Fever resolved OSMAN CHF Super morbid obesity, BMI 61 Vaping Plan: Plan of Care Continue Zyvox and Zosyn. DC Dapto 03/19 off Levaquin Dose dexamethasone, 03/09 f/u cultures D/w nursing Critically ill Overall prognosis poor LINO TABOR MD Mar 19, 2019 07:08
[2019-03-19] MEDS: IPRATRPIUM/ALBUTEROL 0.5/2.5MG 3 ML NEBU. NEB SCH ×4 (08:46→20:13)
[2019-03-19] MEDS: CHLORHEXIDINE 0.12% 15 ML MOUTHWASH. MM SCH ×2 (08:47→20:31)
[2019-03-19] MEDS: FAMOTIDINE 20 MG/2 ML VIAL IVP SCH ×2 (08:48→20:31)
[2019-03-19 08:49] LABS: BASE EXCESS ABG 9 mmol/L (-3-3); HCO3 ABG 35 mmol/L (21-28); PCO2 ABG 57 mmHg (35-46); PO2 ABG 71 mmHg (75-108); SAT O2 ABG 94 % (92-99)
[2019-03-19] MEDS: ASPIRIN CHEWABLE 81 MG TABLET. PO SCH (08:49)
[2019-03-19 09:11] LABS: FIO2 ABG 100
--- NOTE | 2019-03-19 11:03 | PDOC ---
Renal-Progress Notes Subjective Notes Notes INTUBATED History of Present Illness Hx of present illness NO CHANGES Vitals Vitals Vital Signs Date Time Temp Pulse Resp B/P (MAP) Pulse Ox O2 Delivery O2 Flow Rate FiO2 03/19/19 10:31 85 15.0 03/19/19 10:00 88 19 172/110 (130) Ventilator 03/19/19 08:00 97.6 97.6 Weight Weight [ ] I.O. Intake and Output Intake and Output 03/19/19 07:00 Intake Total 6111.23 ml Output Total 5550 ml Balance 561.23 ml IV Total 2047.23 ml Tube Feeding 2864 ml Other 1200 ml Output Urine Total 5550 ml Gastric Drainage Total 0 ml Labs Labs Laboratory Tests Test 03/18/19 12:50 03/18/19 17:41 03/19/19 00:27 03/19/19 06:05 Glucose (Fingerstick) 175 mg/dL (70-99) 159 mg/dL (70-99) 143 mg/dL (70-99) White Blood Count 6.9 x10^3/uL (4.0-11.0) Red Blood Count 5.14 x10^6/uL (4.30-5.70) Hemoglobin 12.5 g/dL (13.0-17.5) Hematocrit 39.7 % (39.0-53.0) Mean Corpuscular Volume 77 fL (79-100) Mean Corpuscular Hemoglobin 24 pg (25-35) Mean Corpuscular Hemoglobin Concent 31 g/dL (31-37) Red Cell Distribution Width 18.5 % (11.5-14.5) Platelet Count 223 x10^3/uL (140-400) Neutrophils (%) (Auto) 89 % (31-73) Lymphocytes (%) (Auto) 4 % (24-48) Monocytes (%) (Auto) 7 % (0-9) Eosinophils (%) (Auto) 0 % (0-3) Basophils (%) (Auto) 0 % (0-3) Neutrophils # (Auto) 6.1 x10^3/uL (1.8-7.7) Lymphocytes # (Auto) 0.3 x10^3/uL (1.0-4.8) Monocytes # (Auto) 0.5 x10^3/uL (0.0-1.1) Eosinophils # (Auto) 0.0 x10^3/uL (0.0-0.7) Basophils # (Auto) 0.0 x10^3/uL (0.0-0.2) Sodium Level 141 mmol/L (136-145) Potassium Level 4.0 mmol/L (3.5-5.1) Chloride Level 101 mmol/L (98-107) Carbon Dioxide Level 34 mmol/L (21-32) Anion Gap 6 (6-14) Blood Urea Nitrogen 46 mg/dL (8-26) Creatinine 1.3 mg/dL (0.7-1.3) Estimated GFR (Cockcroft-Gault) 71.3 Glucose Level 138 mg/dL (70-99) Calcium Level 9.1 mg/dL (8.5-10.1) Magnesium Level 2.1 mg/dL (1.8-2.4) Test 03/19/19 06:07 03/19/19 08:40 Glucose (Fingerstick) 140 mg/dL (70-99) O2 Saturation 94 % (92-99) Arterial Blood pH 7.41 (7.35-7.45) Arterial Blood pCO2 at Patient Temp 57 mmHg (35-46) Arterial Blood pO2 at Patient Temp 71 mmHg (75-108) Arterial Blood HCO3 35 mmol/L (21-28) Arterial Blood Base Excess 9 mmol/L (-3-3) FiO2 100 Micro Micro Microbiology 03/16/19 - Final, Resulted 03/16/19 - Final, Resulted 03/16/19 - Preliminary, Resulted 03/16/19 - Preliminary, Resulted 03/16/19 - Preliminary, Resulted 03/16/19 - Preliminary, Resulted 03/16/19 Gram Stain Evaluation - Final, Resulted 03/16/19 Sputum Culture - Final, Resulted 03/16/19 Sputum Result 1 - Final, Resulted 03/16/19 Blood Culture - Preliminary, Resulted NO GROWTH AFTER 3 DAYS 03/09/19 Urine Culture - Final, Complete 03/09/19 Urine Culture Result 1 (WIL) - Final, Complete Review of Systems Constitutional: yes: unresponsive Physical Exam General Appearance: other (SEDATED) Skin: warm Respiratory: decreased breath sounds Heart: S1S2 Abdomen: soft, bowel sounds present Genitourinary: bladder flat Extremities: pulses present Neurology: other (SEDATED) Musculoskeletal: Other (obese) Assessment Assessment IMP OSMAN IMPROVED WITH CR OF 1.3 CKD STAGE 2 WITH CR OF 1.2 ACUTE HYPERCAPNIC RESP [id number] NEEDING FIO2 100% HX OF TOBACCO AND VAPING MORBID OBESITY PLAN SUPPORTIVE CARE ANTIBIOTICS CONT LASIX GTT CONT TF WILL FOLLOW D/W MYESHA VANEGAS MD Mar 19, 2019 11:03
--- NOTE | 2019-03-19 11:41 | PDOC ---
[employer] PROGRESS NOTE Chief Complaint Chief Complaint Acute Hypercapnic Respiratory Failure/ARDS due to vaping Pulmonary Edema Bilateral Lung Infiltrates Obstructive sleep apnea OSMAN Increased Troponin Morbid Obesity Pulmonary HTN Tobacco use History of Present Illness History of Present Illness 03/19/19 Pt seen and examined in ICU on vent (vent settings: AC/16/600/85% 14 PEEP) Pt responsive to voice In mitts for pt safety Pt sedated with versed, fentanyl, and precedex Rectal tube intact Fontana to BSD Has OG tube to LIS; ET tube placed JUANA RN 03/18/19 Pt seen and examined in ICU on vent (vent settings: AC/16/00/100% 14 PEEP) Pt sedated with versed, fentanyl, and precedex Rectal tube placed Fontana to BSD Has OG tube to LIS; ET tube placed DW RN Chart reviewed 03/17/19 Pt seen and examined in ICU on vent (AC/16/600/100 14peep) Pt has rectal tube and fontana to BSD Sedated with versed, fentanyl, and precedex Pt has ET tube and OG tube to LIS DW RN DW case therapist Chart reviewed Vitals/I&O Vitals/I&O: Vital Signs Date Time Temp Pulse Resp B/P (MAP) Pulse Ox O2 Delivery O2 Flow Rate FiO2 03/19/19 10:31 85 15.0 03/19/19 10:00 88 19 172/110 (130) Ventilator 03/19/19 08:00 97.6 97.6 I & O 03/18/19 03/18/19 03/19/19 14:59 22:59 06:59 Intake Total 700 ml 2921.23 ml 2490 ml Output Total 1200 ml 2400 ml 2050 ml Balance -500 ml 521.23 ml 440 ml Physical Exam Physical Exam: GENERAL: Orally intubated, opens eyes intermitently,does not follow commands HEENT: Pupils equal, small. OGT/ETT NECK: Supple LUNGS: dec bs at bases HEART: S1 and S2, regular. ABDOMEN: Obese, soft, +BS : Fontana in place fecal tube in place EXTREMITIES: Trace edema - MITTS SKIN: Chronic stasis dermatitis on the lower extremity. NEUROLOGIC: Sedated RIJ clean General: Alert, No acute distress, Other (short neck , Mallampati 4 ON VENT) Heart: Regular rate (SR), Other (distante heart sounds) Lungs: Other (decrease bs) Abdomen: Normal bowel sounds, Soft, No tenderness, No hepatosplenomegaly, No masses Extremities: No clubbing, No cyanosis, No edema, Normal pulses, No tenderness/swelling Skin: No rashes, No breakdown, No significant lesion Labs Labs: Laboratory Tests Test 03/18/19 12:50 03/18/19 17:41 03/19/19 00:27 03/19/19 06:05 Glucose (Fingerstick) 175 mg/dL (70-99) 159 mg/dL (70-99) 143 mg/dL (70-99) White Blood Count 6.9 x10^3/uL (4.0-11.0) Red Blood Count 5.14 x10^6/uL (4.30-5.70) Hemoglobin 12.5 g/dL (13.0-17.5) Hematocrit 39.7 % (39.0-53.0) Mean Corpuscular Volume 77 fL (79-100) Mean Corpuscular Hemoglobin 24 pg (25-35) Mean Corpuscular Hemoglobin Concent 31 g/dL (31-37) Red Cell Distribution Width 18.5 % (11.5-14.5) Platelet Count 223 x10^3/uL (140-400) Neutrophils (%) (Auto) 89 % (31-73) Lymphocytes (%) (Auto) 4 % (24-48) Monocytes (%) (Auto) 7 % (0-9) Eosinophils (%) (Auto) 0 % (0-3) Basophils (%) (Auto) 0 % (0-3) Neutrophils # (Auto) 6.1 x10^3/uL (1.8-7.7) Lymphocytes # (Auto) 0.3 x10^3/uL (1.0-4.8) Monocytes # (Auto) 0.5 x10^3/uL (0.0-1.1) Eosinophils # (Auto) 0.0 x10^3/uL (0.0-0.7) Basophils # (Auto) 0.0 x10^3/uL (0.0-0.2) Sodium Level 141 mmol/L (136-145) Potassium Level 4.0 mmol/L (3.5-5.1) Chloride Level 101 mmol/L (98-107) Carbon Dioxide Level 34 mmol/L (21-32) Anion Gap 6 (6-14) Blood Urea Nitrogen 46 mg/dL (8-26) Creatinine 1.3 mg/dL (0.7-1.3) Estimated GFR (Cockcroft-Gault) 71.3 Glucose Level 138 mg/dL (70-99) Calcium Level 9.1 mg/dL (8.5-10.1) Magnesium Level 2.1 mg/dL (1.8-2.4) Test 03/19/19 06:07 03/19/19 08:40 Glucose (Fingerstick) 140 mg/dL (70-99) O2 Saturation 94 % (92-99) Arterial Blood pH 7.41 (7.35-7.45) Arterial Blood pCO2 at Patient Temp 57 mmHg (35-46) Arterial Blood pO2 at Patient Temp 71 mmHg (75-108) Arterial Blood HCO3 35 mmol/L (21-28) Arterial Blood Base Excess 9 mmol/L (-3-3) FiO2 100 Review of Systems Review of Systems: Denies ARIAS Denies vision change Assessment and Plan Assessmemt and Plan Problems Medical Problems: (1) CHF exacerbation Status: Acute (2) COPD exacerbation Status: Acute (3) Hypoxia Status: Acute (4) NSTEMI (non-ST elevated myocardial infarction) Status: Acute (5) Respiratory failure Status: Acute Assessment Acute Hypercapnic Respiratory Failure/ARDS due to vaping Pulmonary Edema Bilateral Lung Infiltrates Obstructive sleep apnea OSMAN Increased Troponin Morbid Obesity Pulmonary HTN Tobacco use Plan ICU monitoring Monitor rectal tube Vent weaning Feed with OG PPN Continue IV Abx (zyvox) Sedate with Versed, Fentanyl, and Precedex [place] to BSD Lasix drip Prognosis guarded Full Code Appreciate subspecialty input Total time 31 min Comment Review of Relevant I have reviewed the following items epter (where applicable) has been applied. TRICIA NAVA III DO Mar 19, 2019 11:41
--- NOTE | 2019-03-19 11:57 | RAD ---
CHEST AP ONLY History: Intubation Comparison: March 14, 2019 Findings: Single view of the chest is submitted. There is again endotracheal tube, tip about 5 cm from mariely. There is enteric catheter, tip coursing into the region of the left upper quadrant of the abdomen suboptimal evaluated on this exam. There is again right internal jugular venous catheter with the tip in the region of the superior aspect of the superior vena cava. No pneumothorax is identified. Pericardial cardiac silhouette is again enlarged. There is fairly prominent airspace opacity with some intermixed interstitial opacity of the left hemithorax overall greater most notable of the perihilar region and mid to superior left hemithorax. There is also persistent airspace opacity of the mid to inferior right hemithorax more similar in appearance. Small left pleural effusion is again not excluded. Nonspecific prominence of mediastinal width is similar. Impression: 1. There are support catheters and tubes as stated. 2. There is prominent airspace opacity on the left overall increased which may be due to edema and/or infiltrate, also probable small left pleural effusion. Degree of airspace opacity on the right is more similar in appearance. Electronically signed by: Goran Lucio MD (03/19/2019 11:54 AM) [id number]
--- NOTE | 2019-03-19 12:55 | PDOC ---
PULMONARY PROGRESS NOTES Subjective on vent, sedated on fentanyl, precedex, versed, small ett secretion on 100% FIO2, 14 of PEEP remains critically ill Vitals Vital Signs Date Time Temp Pulse Resp B/P (MAP) Pulse Ox O2 Delivery O2 Flow Rate FiO2 03/19/19 12:32 100 Ventilator 03/19/19 12:13 15.0 03/19/19 10:00 88 19 172/110 (130) 03/19/19 08:00 97.6 97.6 Comments ros as mentioned as mentioned as above other sys otherwise neg on vent sedated Lungs: Other (decrease bs) Cardiovascular: S1, S2 Abdomen: Soft, Non-tender, Other (obese) Extremities: Other (lymphedema) Skin: Warm Labs Laboratory Tests Test 03/17/19 18:06 03/18/19 00:19 03/18/19 06:24 03/18/19 06:30 Glucose (Fingerstick) 159 mg/dL (70-99) 158 mg/dL (70-99) 155 mg/dL (70-99) White Blood Count 6.2 x10^3/uL (4.0-11.0) Red Blood Count 5.00 x10^6/uL (4.30-5.70) Hemoglobin 12.2 g/dL (13.0-17.5) Hematocrit 39.1 % (39.0-53.0) Mean Corpuscular Volume 78 fL (79-100) Mean Corpuscular Hemoglobin 24 pg (25-35) Mean Corpuscular Hemoglobin Concent 31 g/dL (31-37) Red Cell Distribution Width 18.9 % (11.5-14.5) Platelet Count 217 x10^3/uL (140-400) Neutrophils (%) (Auto) 90 % (31-73) Lymphocytes (%) (Auto) 3 % (24-48) Monocytes (%) (Auto) 7 % (0-9) Eosinophils (%) (Auto) 0 % (0-3) Basophils (%) (Auto) 0 % (0-3) Neutrophils # (Auto) 5.6 x10^3/uL (1.8-7.7) Lymphocytes # (Auto) 0.2 x10^3/uL (1.0-4.8) Monocytes # (Auto) 0.4 x10^3/uL (0.0-1.1) Eosinophils # (Auto) 0.0 x10^3/uL (0.0-0.7) Basophils # (Auto) 0.0 x10^3/uL (0.0-0.2) Segmented Neutrophils % 86 % (35-66) Band Neutrophils % 6 % (0-9) Lymphocytes % 3 % (24-48) Monocytes % 5 % (0-10) Platelet Estimate Adequate (ADEQUATE) Anisocytosis Present Sodium Level 141 mmol/L (136-145) Potassium Level 4.2 mmol/L (3.5-5.1) Chloride Level 102 mmol/L (98-107) Carbon Dioxide Level 30 mmol/L (21-32) Anion Gap 9 (6-14) Blood Urea Nitrogen 37 mg/dL (8-26) Creatinine 1.4 mg/dL (0.7-1.3) Estimated GFR (Cockcroft-Gault) 65.4 Glucose Level 162 mg/dL (70-99) Calcium Level 9.5 mg/dL (8.5-10.1) Magnesium Level 2.3 mg/dL (1.8-2.4) Test 03/18/19 07:30 03/18/19 12:50 03/18/19 17:41 03/19/19 00:27 O2 Saturation 93 % (92-99) Arterial Blood pH 7.39 (7.35-7.45) Arterial Blood pCO2 at Patient Temp 50 mmHg (35-46) Arterial Blood pO2 at Patient Temp 66 mmHg (75-108) Arterial Blood HCO3 29 mmol/L (21-28) Arterial Blood Base Excess 3 mmol/L (-3-3) FiO2 100 Glucose (Fingerstick) 175 mg/dL (70-99) 159 mg/dL (70-99) 143 mg/dL (70-99) Test 03/19/19 06:05 03/19/19 06:07 03/19/19 08:40 03/19/19 12:08 White Blood Count 6.9 x10^3/uL (4.0-11.0) Red Blood Count 5.14 x10^6/uL (4.30-5.70) Hemoglobin 12.5 g/dL (13.0-17.5) Hematocrit 39.7 % (39.0-53.0) Mean Corpuscular Volume 77 fL (79-100) Mean Corpuscular Hemoglobin 24 pg (25-35) Mean Corpuscular Hemoglobin Concent 31 g/dL (31-37) Red Cell Distribution Width 18.5 % (11.5-14.5) Platelet Count 223 x10^3/uL (140-400) Neutrophils (%) (Auto) 89 % (31-73) Lymphocytes (%) (Auto) 4 % (24-48) Monocytes (%) (Auto) 7 % (0-9) Eosinophils (%) (Auto) 0 % (0-3) Basophils (%) (Auto) 0 % (0-3) Neutrophils # (Auto) 6.1 x10^3/uL (1.8-7.7) Lymphocytes # (Auto) 0.3 x10^3/uL (1.0-4.8) Monocytes # (Auto) 0.5 x10^3/uL (0.0-1.1) Eosinophils # (Auto) 0.0 x10^3/uL (0.0-0.7) Basophils # (Auto) 0.0 x10^3/uL (0.0-0.2) Sodium Level 141 mmol/L (136-145) Potassium Level 4.0 mmol/L (3.5-5.1) Chloride Level 101 mmol/L (98-107) Carbon Dioxide Level 34 mmol/L (21-32) Anion Gap 6 (6-14) Blood Urea Nitrogen 46 mg/dL (8-26) Creatinine 1.3 mg/dL (0.7-1.3) Estimated GFR (Cockcroft-Gault) 71.3 Glucose Level 138 mg/dL (70-99) Calcium Level 9.1 mg/dL (8.5-10.1) Magnesium Level 2.1 mg/dL (1.8-2.4) Glucose (Fingerstick) 140 mg/dL (70-99) 121 mg/dL (70-99) O2 Saturation 94 % (92-99) Arterial Blood pH 7.41 (7.35-7.45) Arterial Blood pCO2 at Patient Temp 57 mmHg (35-46) Arterial Blood pO2 at Patient Temp 71 mmHg (75-108) Arterial Blood HCO3 35 mmol/L (21-28) Arterial Blood Base Excess 9 mmol/L (-3-3) FiO2 100 Laboratory Tests Test 03/18/19 17:41 03/19/19 00:27 03/19/19 06:05 03/19/19 06:07 Glucose (Fingerstick) 159 mg/dL (70-99) 143 mg/dL (70-99) 140 mg/dL (70-99) White Blood Count 6.9 x10^3/uL (4.0-11.0) Red Blood Count 5.14 x10^6/uL (4.30-5.70) Hemoglobin 12.5 g/dL (13.0-17.5) Hematocrit 39.7 % (39.0-53.0) Mean Corpuscular Volume 77 fL (79-100) Mean Corpuscular Hemoglobin 24 pg (25-35) Mean Corpuscular Hemoglobin Concent 31 g/dL (31-37) Red Cell Distribution Width 18.5 % (11.5-14.5) Platelet Count 223 x10^3/uL (140-400) Neutrophils (%) (Auto) 89 % (31-73) Lymphocytes (%) (Auto) 4 % (24-48) Monocytes (%) (Auto) 7 % (0-9) Eosinophils (%) (Auto) 0 % (0-3) Basophils (%) (Auto) 0 % (0-3) Neutrophils # (Auto) 6.1 x10^3/uL (1.8-7.7) Lymphocytes # (Auto) 0.3 x10^3/uL (1.0-4.8) Monocytes # (Auto) 0.5 x10^3/uL (0.0-1.1) Eosinophils # (Auto) 0.0 x10^3/uL (0.0-0.7) Basophils # (Auto) 0.0 x10^3/uL (0.0-0.2) Sodium Level 141 mmol/L (136-145) Potassium Level 4.0 mmol/L (3.5-5.1) Chloride Level 101 mmol/L (98-107) Carbon Dioxide Level 34 mmol/L (21-32) Anion Gap 6 (6-14) Blood Urea Nitrogen 46 mg/dL (8-26) Creatinine 1.3 mg/dL (0.7-1.3) Estimated GFR (Cockcroft-Gault) 71.3 Glucose Level 138 mg/dL (70-99) Calcium Level 9.1 mg/dL (8.5-10.1) Magnesium Level 2.1 mg/dL (1.8-2.4) Test 03/19/19 08:40 03/19/19 12:08 O2 Saturation 94 % (92-99) Arterial Blood pH 7.41 (7.35-7.45) Arterial Blood pCO2 at Patient Temp 57 mmHg (35-46) Arterial Blood pO2 at Patient Temp 71 mmHg (75-108) Arterial Blood HCO3 35 mmol/L (21-28) Arterial Blood Base Excess 9 mmol/L (-3-3) FiO2 100 Glucose (Fingerstick) 121 mg/dL (70-99) Medications Active Scripts Medications Dose Route/Sig Max Daily Dose Days Date Category Hydrochlorothiazide Tablet (Hydrochlorothiazide) 25 Mg Tablet 25 Mg PO DAILY 03/10/19 Reported Norvasc (Amlodipine Besylate) 5 Mg Tablet 1 Tab PO DAILY 01/12/19 Rx Lisinopril 5 Mg Tablet 1 Tab PO DAILY 01/12/19 Rx Comments cxr reviewed 03/19 bilateral infiltrate, worse on left .mildly improved on right Impression . 1. Acute hypercapnic respiratory failure secondary to multifactorial etiologies.related to acute lung injury/non-cardiogenic pulmonary edema/ ARDS due to vaping. Needing max amount of oxygen and high PEEP c/w shunt physiology due to ARDS CTA non diagnostic for PE. Dopplers neg 2. Abnormal chest x-ray with bilateral lung infiltrates. noncardiogenic pulmonary edema. CT chest reviewed. Developed fever 03/16 and worsening left lung infiltrate,? superimposed VAP, check all cultures. Abx per ID/ fever improving 3. History of morbid obesity with Pickwickian physiology with chronic hypercapnia and chronic hypoxic respiratory failure, history of obstructive sleep apnea as well, but noncompliant to CPAP. 4. Acute kidney injury. stable 5. Increased troponin. Possible non-ST myocardial infarction. 6. Previous echo with normal ejection fraction. PA 55 likely secondary pulmonary HTN 7. History of tobacco use. Plan . 1. Continue with present assist control mode and PEEP of 14,%FIO2 down to 90%. titrate fi02 to keep sat 92%, make necessary adjustment based on followup ABGs. cont vent support.Poor prognosis. ok with permissive hypercapnia/ cannot be transfered to for ECHMO/ will not survive the transfer. 2. high dose steroids 03/16 initiated 3. No acute bleed on CT head. 4. Abx per ID, check all new cultures 5. Monitor fever and white cell count. 6. Continue bronchodilators. 7. Heparin for DVT prophylaxis 8. diuresis.d/w renal. lasix drip 9. family meeting again yesterday done regarding critical condition and goals of care. reviewed the current medical condition; including high oxygen needs; PEEP 14. Discussed the following; Risk of tracheostomy: Risk of transfer to another facility. Lack of progress Discussed resuscitation; Family requests DNR.Continue aggressive supportive care discussed with RN and RT. We will follow along with you. MARIO ALLEN MD Mar 19, 2019 12:55
--- NOTE | 2019-03-19 14:42 | PDOC2 ---
PALLIATIVE CARE Palliative Care Note Palliative Care Seen 0845 Patient remains intubated. Oxygen decreased to 85%. Peep 14. Follows commands. Continue current treatment plan. Adjusting oxygen as needed. No family at bedside. FRANCIS DELATORRE Mar 19, 2019 14:42
[2019-03-20] VITALS (24 sets, daily range): BP systolic 130–187; BP diastolic 59–106
[2019-03-20] MEDS: PIPERACILLIN/TAZOBACTAM 3.375 GM in IV NORMAL SALINE 50ML 50 ML IV SCH ×5 (00:37→23:57)
[2019-03-20] MEDS: DEXMEDETOMIDINE 400 MCG in IV NORMAL SALINE 100ML 96 ML IV PRN ×5 (02:04→20:31)
[2019-03-20] MEDS: MIDAZOLAM 100mg/100ml NS BAG 100 ML IV PRN ×4 (02:05→22:00)
[2019-03-20 05:41] LABS: BASO % 0 % (0-3); EOS % 0 % (0-3); HEMATOCRIT 38.8 % (39.0-53.0); HEMOGLOBIN 12.3 g/dL (13.0-17.5); LYMPH # 0.3 x10^3/uL (1.0-4.8); LYMPH % 4 % (24-48); MEAN CORPUSCULAR HEMOGLOBIN 24 pg (25-35); MEAN CORPUSCULAR HGB CONC 32 g/dL (31-37); MEAN CORPUSCULAR VOLUME 77 fL (79-100); MONO # 0.4 x10^3/uL (0.0-1.1); MONO % 6 % (0-9); NEUT # 6.3 x10^3/uL (1.8-7.7); NEUT % 90 % (31-73); PLATELET COUNT 243 x10^3/uL (140-400); RED BLOOD COUNT 5.04 x10^6/uL (4.30-5.70); RED CELL DISTRIBUTION WIDTH 18.7 % (11.5-14.5)
[2019-03-20] MEDS: methylPREDNISolone SOD SUCC PF 125 MG/2 ML VIAL. IV SCH ×3 (05:48→22:48)
[2019-03-20] MEDS: HEPARIN for SUB-Q USE 5,000 UNIT/ML VIAL. SQ SCH ×3 (05:48→22:49)
[2019-03-20] MEDS: INSULIN LISPRO 300 UNITS/3 ML VIAL. SQ SCH ×5 (06:00→23:58)
[2019-03-20 06:12] LABS: CALCIUM 9.4 mg/dL (8.5-10.1); CREATININE 1.3 mg/dL (0.7-1.3); GFR 71.3; POTASSIUM 4.2 mmol/L (3.5-5.1)
--- NOTE | 2019-03-20 07:32 | PDOC ---
Infectious Disease Note Subjective: Subjective Orally intubated, d/w rn no fevers Fio2 85%,PEEP of 14 Vital Signs: Vital Signs Vital Signs Date Time Temp Pulse Resp B/P (MAP) Pulse Ox O2 Delivery O2 Flow Rate FiO2 03/20/19 06:00 56 16 156/91 (112) 100 Ventilator 03/20/19 05:45 15.0 03/20/19 04:00 98.6 98.6 Physical Exam: PHYSICAL EXAM GENERAL: Orally intubated, opens eyes intermitently,does not follow commands HEENT: Pupils equal, small. OGT/ETT NECK: Supple LUNGS: dec bs at bases HEART: S1 and S2, regular. ABDOMEN: Obese, soft, +BS : Ramos in place fecal tube in place EXTREMITIES: Trace edema - MITTS SKIN: Chronic stasis dermatitis on the lower extremity. NEUROLOGIC: Sedated RIJ clean Medications: Inpatient Meds: Current Medications Medications (Trade) Dose Ordered Sig/Stefanie Start Time Stop Time Status Last Admin Dose Admin Albuterol/ Ipratropium (Duoneb) 3 ml RTQID 03/10/19 12:00 03/19/19 20:13 3 ML Amlodipine Besylate (Norvasc) 10 mg DAILY 03/11/19 09:00 03/11/19 12:50 DC 03/11/19 09:37 10 MG Artificial Tears (Artificial Tears) 1 drop PRN Q1HR PRN 03/10/19 07:30 03/13/19 13:32 1 DROP Aspirin (Aspirin Rectal Supp) 300 mg 1X ONCE 03/10/19 00:00 03/10/19 00:01 DC 03/10/19 03:42 300 MG Aspirin (Amanda Aspirin) 325 mg 1X ONCE 03/10/19 10:30 03/10/19 10:31 DC 03/10/19 10:55 325 MG Aspirin (Children'S Aspirin) 81 mg DAILYWBKFT 03/11/19 08:00 03/19/19 08:49 81 MG Atropine Sulfate (ATROPINE 0.5mg SYRINGE) 0.5 mg PRN Q5MIN PRN 03/12/19 20:30 Bumetanide (Bumex) 1 mg 1X ONCE 03/10/19 00:00 03/10/19 00:01 DC 03/10/19 00:21 1 MG Chlorhexidine Gluconate (Peridex) 15 ml BID 03/10/19 09:00 03/19/19 20:31 15 ML Clonidine HCl (Catapres) 0.1 mg 1X ONCE 03/10/19 01:30 03/10/19 01:34 DC Daptomycin 1320 mg/Sodium Chloride 50 ml @ 100 mls/hr ONCE ONCE 03/15/19 13:00 03/16/19 09:33 DC 03/15/19 13:53 100 MLS/HR Daptomycin 1340 mg/Sodium Chloride 50 ml @ 100 mls/hr Q24H 03/16/19 09:00 Cancel Daptomycin 830 mg/ Sodium Chloride 50 ml @ 100 mls/hr Q24H 03/16/19 14:00 03/19/19 07:41 DC 03/18/19 15:03 100 MLS/HR Dexamethasone Sodium Phosphate (Decadron) 10 mg 1X ONCE 03/09/19 22:00 03/09/19 22:01 DC 03/09/19 22:29 10 MG Dexmedetomidine HCl 400 mcg/ Sodium Chloride 100 ml @ 0 mls/hr CONT PRN 03/12/19 20:30 03/20/19 04:38 27.1 MLS/HR Dextrose 250 ml PRN Q15MIN PRN 03/12/19 16:15 Dextrose (Dextrose 50%-Water Syringe) 12.5 gm PRN Q15MIN PRN 03/12/19 16:15 Etomidate (Amidate) 20 mg STK-MED ONCE 03/10/19 05:15 03/10/19 05:16 DC Famotidine (Pepcid Vial) 20 mg BID 03/10/19 09:00 UNV Fentanyl Citrate (Fentanyl 2ml Vial) 50 mcg PRN Q1HR PRN 03/10/19 07:30 Fentanyl Citrate (Fentanyl 600 Mcg/30 ml ORACLE APPLICATIONS ANALYST) 600 mcg STK-MED ONCE 03/13/19 17:00 03/17/19 11:02 DC Furosemide (Lasix) 40 mg 1X ONCE 03/16/19 16:30 03/16/19 16:31 DC 03/16/19 16:46 40 MG Furosemide 100 mg/ Sodium Chloride 100 ml @ 5 mls/hr CONT PRN 03/18/19 10:45 03/19/19 15:59 10 MLS/HR Heparin Sodium (Porcine) (Heparin Sodium) 5,000 unit Q8HRS 03/11/19 22:00 03/20/19 05:48 5,000 UNIT Heparin Sodium/ Dextrose 500 ml @ 0 mls/hr CONT PRN 03/09/19 23:45 03/11/19 16:13 DC 03/10/19 23:34 1,300 MLS/HR Hydralazine HCl (Apresoline Inj) 10 mg PRN Q4HRS PRN 03/11/19 13:00 03/19/19 01:32 10 MG Hydrochlorothiazide (Hydrodiuril) 25 mg DAILY 03/10/19 09:00 03/10/19 10:04 DC 03/10/19 09:13 25 MG Info (CONTRAST GIVEN -- Rx MONITORING) 1 each PRN DAILY PRN 03/10/19 11:45 03/12/19 11:44 DC Insulin Human Lispro (HumaLOG) 0-9 UNITS Q6HRS 03/12/19 18:00 03/18/19 18:35 4 UNITS Iohexol (Omnipaque 350 Mg/ml) 100 ml 1X ONCE 03/10/19 11:45 03/10/19 11:47 DC 03/10/19 14:05 100 ML Levofloxacin/ Dextrose 100 ml @ 100 mls/hr Q24H 03/10/19 09:00 03/14/19 09:25 DC 03/14/19 08:10 100 MLS/HR Levofloxacin/ Dextrose (Levaquin Per Pharmacy) 1 each PRN DAILY PRN 03/10/19 08:15 03/14/19 09:25 DC Linezolid/Dextrose 300 ml @ 300 mls/hr Q12HR 03/11/19 21:00 03/19/19 20:09 300 MLS/HR Lisinopril (Prinivil) 5 mg DAILY 03/10/19 09:00 03/10/19 10:04 DC 03/10/19 09:13 5 MG Lorazepam (Ativan Inj) 2 mg PRN Q1HR PRN 03/19/19 10:45 03/19/19 11:56 2 MG Magnesium Sulfate/ Dextrose 100 ml @ 50 mls/hr DAILY 03/11/19 09:00 03/14/19 08:59 DC 03/11/19 09:28 50 MLS/HR Methylprednisolone Sodium Succinate (SOLU-Medrol 125MG VIAL) 100 mg Q8HRS 03/16/19 12:00 03/20/19 05:48 100 MG Midazolam HCl 100 ml @ 0 mls/hr CONT PRN 03/10/19 07:30 03/20/19 02:05 15 MLS/HR Midazolam HCl (Versed) 5 mg 1X ONCE 03/10/19 01:30 03/10/19 01:34 DC 03/10/19 01:28 5 MG Morphine Sulfate (Morphine Sulfate) 4 mg PRN Q1HR PRN 03/10/19 07:30 Multi-Ingred Cream/Lotion/Oil/ Oint (Artificial Tears Eye Ointment) 1 zuri PRN Q1HR PRN 03/12/19 09:00 Norepinephrine Bitartrate 250 ml @ 27.837 mls/ hr CONT PRN 03/11/19 13:00 03/13/19 04:13 1.392 MLS/HR Perflutren Protein Type A Microsphe (Optison) 0.66 mg 1X ONCE 03/13/19 09:15 03/13/19 09:16 DC 03/13/19 09:40 0.66 MG Piperacillin Sod/ Tazobactam Sod (Zosyn Per Pharmacy) 1 each PRN DAILY PRN 03/10/19 11:45 Piperacillin Sod/ Tazobactam Sod 3.375 gm/Sodium Chloride 50 ml @ 100 mls/hr Q6HRS 03/10/19 12:30 03/20/19 05:48 100 MLS/HR Piperacillin Sod/ Tazobactam Sod 4.5 gm/Sodium Chloride 100 ml @ 200 mls/hr 1X ONCE 03/10/19 00:30 03/10/19 00:59 DC 03/10/19 05:19 200 MLS/HR Potassium Chloride/Water 50 ml @ 50 mls/hr 1X ONCE 03/12/19 10:30 03/12/19 11:31 DC Potassium Phosphate 27.2 mmol/Sodium Chloride 259.0667 ml @ 64.753 m... 1X ONCE 03/11/19 14:00 03/11/19 18:00 DC Propofol 100 ml @ 0 mls/hr CONT PRN 03/10/19 07:30 Rocuronium [place]ner (Zemuron) 50 mg STK-MED ONCE 03/10/19 05:15 03/10/19 05:15 DC Sodium Chloride 500 ml @ 500 mls/hr 1X PRN PRN 03/12/19 20:30 03/12/19 23:22 500 MLS/HR Vancomycin HCl (Vanco Per Pharmacy) 1 each PRN DAILY PRN 03/10/19 11:45 03/11/19 13:57 DC 03/11/19 09:42 1 EACH Vancomycin HCl (Vancomycin Trough Level) 1 each 1X ONCE 03/12/19 12:30 03/12/19 12:31 Cancel Vancomycin HCl 1.75 gm/Sodium Chloride 500 ml @ 250 mls/hr Q12H 03/11/19 01:00 03/11/19 13:57 DC 03/11/19 12:43 250 MLS/HR Vancomycin HCl 2 gm/Sodium Chloride 500 ml @ 250 mls/hr 1X ONCE 03/10/19 13:00 03/10/19 14:59 DC 03/10/19 12:41 250 MLS/HR Vecuronium Sumner (Norcuron Bolus) 10 mg PRN Q1HR PRN 03/13/19 07:30 Labs: Lab Laboratory Tests Test 03/19/19 08:40 03/19/19 12:08 03/19/19 17:24 03/20/19 00:39 O2 Saturation 94 % (92-99) Arterial Blood pH 7.41 (7.35-7.45) Arterial Blood pCO2 at Patient Temp 57 mmHg (35-46) Arterial Blood pO2 at Patient Temp 71 mmHg (75-108) Arterial Blood HCO3 35 mmol/L (21-28) Arterial Blood Base Excess 9 mmol/L (-3-3) FiO2 100 Glucose (Fingerstick) 121 mg/dL (70-99) 139 mg/dL (70-99) 133 mg/dL (70-99) Test 03/20/19 05:30 03/20/19 06:09 White Blood Count 7.0 x10^3/uL (4.0-11.0) Red Blood Count 5.04 x10^6/uL (4.30-5.70) Hemoglobin 12.3 g/dL (13.0-17.5) Hematocrit 38.8 % (39.0-53.0) Mean Corpuscular Volume 77 fL (79-100) Mean Corpuscular Hemoglobin 24 pg (25-35) Mean Corpuscular Hemoglobin Concent 32 g/dL (31-37) Red Cell Distribution Width 18.7 % (11.5-14.5) Platelet Count 243 x10^3/uL (140-400) Neutrophils (%) (Auto) 90 % (31-73) Lymphocytes (%) (Auto) 4 % (24-48) Monocytes (%) (Auto) 6 % (0-9) Eosinophils (%) (Auto) 0 % (0-3) Basophils (%) (Auto) 0 % (0-3) Neutrophils # (Auto) 6.3 x10^3/uL (1.8-7.7) Lymphocytes # (Auto) 0.3 x10^3/uL (1.0-4.8) Monocytes # (Auto) 0.4 x10^3/uL (0.0-1.1) Eosinophils # (Auto) 0.0 x10^3/uL (0.0-0.7) Basophils # (Auto) 0.0 x10^3/uL (0.0-0.2) Sodium Level 142 mmol/L (136-145) Potassium Level 4.2 mmol/L (3.5-5.1) Chloride Level 102 mmol/L (98-107) Carbon Dioxide Level 35 mmol/L (21-32) Anion Gap 5 (6-14) Blood Urea Nitrogen 52 mg/dL (8-26) Creatinine 1.3 mg/dL (0.7-1.3) Estimated GFR (Cockcroft-Gault) 71.3 Glucose Level 135 mg/dL (70-99) Calcium Level 9.4 mg/dL (8.5-10.1) Glucose (Fingerstick) 121 mg/dL (70-99) Micro RUN DATE: 03/18/19 PAGE 1 RUN TIME: 1909 [facility] [address] [place] [address] Julián Ledesma M.D., Wax Molder -- PATIENT: GENESIS TALAVERA ACCT: [id number] LOC: 1 WEST ICU U: [id number] AGE/SX: 48/M ROOM: 113 RE03/09/[address]: ADELAIDA VALENTINE MD : 1970 BED: 1 DIS: STATUS: ADM IN TLOC: SPEC #: [id number] SHANITA: 03/10/19 STATUS: COMP REQ #: [id number] RECD: 03/10/[address]: WHITNEY HESTER DO SOURCE: BLOOD ENTR: 03/15/[address]: VIDAL MTZ SPDESC: ORDERED: BLD CULT - LC Procedure Result BLOOD CULTURE LC Final Final report BLD CULT RESULT 1 Final Dermabacter hominis Susceptibility not normally performed on this organism. Performed at: [address], [place], [place] [id number] Leasing Associate: ALFREDO Cortez MD, Phone: [phone] Objective: Assessment: GPC bacteremia (1 of 4 bottles), 03/10,Dermabacter hominis ,likely contaminant, no further nicho available repeat bc neg so far Acute resp failure, intubated, still requiring high peep Pulmonary infiltrates could be from underlying lung injury from vaping, - GPC on gram stain, 03/11 ,not identified legionella ,strep pneu ,mycoplasma neg Leukocytosis resolved Fever resolved OSMAN CHF HTN Super morbid obesity, BMI 61 Vaping Diarrhea Plan: Plan of Care Continue Zyvox 03/11 ,will deescalate soon Cont Zosyn. 03/10 off Dapto 03/19 off Levaquin Dose dexamethasone, 03/09 f/u cultures f/u c diff pcr D/w nursing Critically ill Overall prognosis poor LINO TABOR MD Mar 20, 2019 07:32
[2019-03-20] MEDS: FUROSEMIDE INJ 100 MG in IV NORMAL SALINE 100ML 100 ML IV PRN ×2 (07:38→20:11)
[2019-03-20] MEDS: IPRATRPIUM/ALBUTEROL 0.5/2.5MG 3 ML NEBU. NEB SCH ×4 (07:44→20:06)
[2019-03-20 07:56] LABS: BASE EXCESS ABG 8 mmol/L (-3-3); HCO3 ABG 35 mmol/L (21-28); PO2 ABG 79 mmHg (75-108); SAT O2 ABG 95 % (92-99)
[2019-03-20] MEDS: CHLORHEXIDINE 0.12% 15 ML MOUTHWASH. MM SCH ×2 (08:35→20:31)
[2019-03-20] MEDS: ASPIRIN CHEWABLE 81 MG TABLET. PO SCH (08:35)
[2019-03-20] MEDS: FAMOTIDINE 20 MG/2 ML VIAL IVP SCH ×2 (08:36→20:31)
--- NOTE | 2019-03-20 09:51 | PDOC ---
Renal-Progress Notes Subjective Notes Notes REMAINS INTUBATED History of Present Illness Hx of present illness NO CHANGE Vitals Vitals Vital Signs Date Time Temp Pulse Resp B/P (MAP) Pulse Ox O2 Delivery O2 Flow Rate FiO2 03/20/19 08:44 100 Ventilator 03/20/19 06:00 56 16 156/91 (112) 03/20/19 05:45 15.0 03/20/19 04:00 98.6 98.6 Weight Weight [ ] I.O. Intake and Output Intake and Output 03/20/19 06:59 Intake Total 5076 ml Output Total 8050 ml Balance -2974 ml IV Total 1496 ml Tube Feeding 2580 ml Other 1000 ml Output Urine Total 7050 ml Stool Total 1000 ml Gastric Drainage Total 0 ml Labs Labs Laboratory Tests Test 03/19/19 12:08 03/19/19 17:24 03/20/19 00:39 03/20/19 05:30 Glucose (Fingerstick) 121 mg/dL (70-99) 139 mg/dL (70-99) 133 mg/dL (70-99) White Blood Count 7.0 x10^3/uL (4.0-11.0) Red Blood Count 5.04 x10^6/uL (4.30-5.70) Hemoglobin 12.3 g/dL (13.0-17.5) Hematocrit 38.8 % (39.0-53.0) Mean Corpuscular Volume 77 fL (79-100) Mean Corpuscular Hemoglobin 24 pg (25-35) Mean Corpuscular Hemoglobin Concent 32 g/dL (31-37) Red Cell Distribution Width 18.7 % (11.5-14.5) Platelet Count 243 x10^3/uL (140-400) Neutrophils (%) (Auto) 90 % (31-73) Lymphocytes (%) (Auto) 4 % (24-48) Monocytes (%) (Auto) 6 % (0-9) Eosinophils (%) (Auto) 0 % (0-3) Basophils (%) (Auto) 0 % (0-3) Neutrophils # (Auto) 6.3 x10^3/uL (1.8-7.7) Lymphocytes # (Auto) 0.3 x10^3/uL (1.0-4.8) Monocytes # (Auto) 0.4 x10^3/uL (0.0-1.1) Eosinophils # (Auto) 0.0 x10^3/uL (0.0-0.7) Basophils # (Auto) 0.0 x10^3/uL (0.0-0.2) Sodium Level 142 mmol/L (136-145) Potassium Level 4.2 mmol/L (3.5-5.1) Chloride Level 102 mmol/L (98-107) Carbon Dioxide Level 35 mmol/L (21-32) Anion Gap 5 (6-14) Blood Urea Nitrogen 52 mg/dL (8-26) Creatinine 1.3 mg/dL (0.7-1.3) Estimated GFR (Cockcroft-Gault) 71.3 Glucose Level 135 mg/dL (70-99) Calcium Level 9.4 mg/dL (8.5-10.1) Test 03/20/19 06:09 Glucose (Fingerstick) 121 mg/dL (70-99) Micro Micro Microbiology 03/16/19 - Final, Resulted 03/16/19 - Final, Resulted 03/16/19 - Preliminary, Resulted 03/16/19 - Preliminary, Resulted 03/16/19 - Preliminary, Resulted 03/16/19 - Preliminary, Resulted 03/16/19 Gram Stain Evaluation - Final, Resulted 03/16/19 Sputum Culture - Final, Resulted 03/16/19 Sputum Result 1 - Final, Resulted 03/16/19 Blood Culture - Preliminary, Resulted NO GROWTH AFTER 4 DAYS 03/09/19 Urine Culture - Final, Complete 03/09/19 Urine Culture Result 1 (WIL) - Final, Complete Review of Systems Constitutional: yes: unresponsive Physical Exam General Appearance: other (SEDATED) Skin: warm Respiratory: decreased breath sounds Heart: S1S2 Abdomen: soft, bowel sounds present Genitourinary: bladder flat Extremities: pulses present Neurology: other (SEDATED) Musculoskeletal: Other (obese) Assessment Assessment IMP OSMAN RESOLVED CKD STAGE 2 WITH CR OF 1.2 ACUTE HYPERCAPNIC RESP [id number] NEEDING FIO2 80% HX OF TOBACCO AND VAPING MORBID OBESITY PLAN SUPPORTIVE CARE ANTIBIOTICS CONT LASIX GTT CONT TF WILL FOLLOW D/W MYESHA VANEGAS MD Mar 20, 2019 09:51
--- NOTE | 2019-03-20 10:56 | PDOC ---
[facility] [facility] PROGRESS NOTE Chief Complaint Chief Complaint Acute Hypercapnic Respiratory Failure/ARDS due to vaping Pulmonary Edema Bilateral Lung Infiltrates Obstructive sleep apnea OSMAN Increased Troponin Morbid Obesity Pulmonary HTN Tobacco use History of Present Illness History of Present Illness 9�13�2019 Patient seen and examined in the ICU He is still ventilated AC/16/600/80% 14 PEEP 03/19/19 Pt seen and examined in ICU on vent (vent settings: AC/16/600/85% 14 PEEP) Pt responsive to voice In mitts for pt safety Pt sedated with versed, fentanyl, and precedex Rectal tube intact Fontana to BSD Has OG tube to LIS; ET tube placed JUANA RN 03/18/19 Pt seen and examined in ICU on vent (vent settings: AC/16/00/100% 14 PEEP) Pt sedated with versed, fentanyl, and precedex Rectal tube placed Fontana to BSD Has OG tube to LIS; ET tube placed DW RN Chart reviewed 03/17/19 Pt seen and examined in ICU on vent (AC/16/600/100 14peep) Pt has rectal tube and fontana to BSD Sedated with versed, fentanyl, and precedex Pt has ET tube and OG tube to LIS DW RN DW case management manager Chart reviewed Vitals/I&O Vitals/I&O: Vital Signs Date Time Temp Pulse Resp B/P (MAP) Pulse Ox O2 Delivery O2 Flow Rate FiO2 03/20/19 10:17 100 15.0 03/20/19 08:44 Ventilator 03/20/19 06:00 56 16 156/91 (112) 03/20/19 04:00 98.6 98.6 I & O 03/19/19 03/19/19 03/20/19 14:59 22:59 06:59 Intake Total 450 ml 2035 ml 2591 ml Output Total 1400 ml 3750 ml 2900 ml Balance -950 ml -1715 ml -309 ml Physical Exam Physical Exam: GENERAL: Orally intubated, opens eyes intermitently,does not follow commands HEENT: Pupils equal, small. OGT/ETT NECK: Supple LUNGS: dec bs at bases HEART: S1 and S2, regular. ABDOMEN: Obese, soft, +BS : Fontana in place fecal tube in place EXTREMITIES: Trace edema - MITTS SKIN: Chronic stasis dermatitis on the lower extremity. NEUROLOGIC: Sedated RIJ clean General: No acute distress, Other (short neck , Mallampati 4 ON VENT) Heart: Regular rate (SR), Other (distante heart sounds) Lungs: Other (decrease bs) Abdomen: Normal bowel sounds, Soft, No tenderness, No hepatosplenomegaly, No masses Extremities: No clubbing, No cyanosis, No edema, Normal pulses, No tenderness/swelling Skin: No rashes, No breakdown, No significant lesion Labs Labs: Laboratory Tests Test 03/19/19 12:08 03/19/19 17:24 03/20/19 00:39 03/20/19 05:30 Glucose (Fingerstick) 121 mg/dL (70-99) 139 mg/dL (70-99) 133 mg/dL (70-99) White Blood Count 7.0 x10^3/uL (4.0-11.0) Red Blood Count 5.04 x10^6/uL (4.30-5.70) Hemoglobin 12.3 g/dL (13.0-17.5) Hematocrit 38.8 % (39.0-53.0) Mean Corpuscular Volume 77 fL (79-100) Mean Corpuscular Hemoglobin 24 pg (25-35) Mean Corpuscular Hemoglobin Concent 32 g/dL (31-37) Red Cell Distribution Width 18.7 % (11.5-14.5) Platelet Count 243 x10^3/uL (140-400) Neutrophils (%) (Auto) 90 % (31-73) Lymphocytes (%) (Auto) 4 % (24-48) Monocytes (%) (Auto) 6 % (0-9) Eosinophils (%) (Auto) 0 % (0-3) Basophils (%) (Auto) 0 % (0-3) Neutrophils # (Auto) 6.3 x10^3/uL (1.8-7.7) Lymphocytes # (Auto) 0.3 x10^3/uL (1.0-4.8) Monocytes # (Auto) 0.4 x10^3/uL (0.0-1.1) Eosinophils # (Auto) 0.0 x10^3/uL (0.0-0.7) Basophils # (Auto) 0.0 x10^3/uL (0.0-0.2) Sodium Level 142 mmol/L (136-145) Potassium Level 4.2 mmol/L (3.5-5.1) Chloride Level 102 mmol/L (98-107) Carbon Dioxide Level 35 mmol/L (21-32) Anion Gap 5 (6-14) Blood Urea Nitrogen 52 mg/dL (8-26) Creatinine 1.3 mg/dL (0.7-1.3) Estimated GFR (Cockcroft-Gault) 71.3 Glucose Level 135 mg/dL (70-99) Calcium Level 9.4 mg/dL (8.5-10.1) Test 03/20/19 06:09 Glucose (Fingerstick) 121 mg/dL (70-99) Review of Systems Review of Systems: Unable to obtain he is intubated Assessment and Plan Assessmemt and Plan Problems Medical Problems: (1) CHF exacerbation Status: Acute (2) COPD exacerbation Status: Acute (3) Hypoxia Status: Acute (4) NSTEMI (non-ST elevated myocardial infarction) Status: Acute (5) Respiratory failure Status: Acute Assessment Acute Hypercapnic Respiratory Failure/ARDS due to vaping Pulmonary Edema Bilateral Lung Infiltrates Obstructive sleep apnea OSMAN Increased Troponin Morbid Obesity Pulmonary HTN Tobacco use Plan ICU monitoring Monitor rectal tube Vent weaning Feed with OG PPN Continue IV Abx (zyvox) Sedate with Versed, Fentanyl, and Precedex Fontana to BSD Lasix drip Prognosis guarded Full Code Appreciate subspecialty input Total time 32 min Comment Review of Relevant I have reviewed the following items peter (where applicable) has been applied. TRICIA NAVA III DO Mar 20, 2019 10:56
--- NOTE | 2019-03-20 11:05 | PDOC ---
PULMONARY PROGRESS NOTES Subjective on vent, sedated on fentanyl, precedex, versed, small ett secretion on 80% FIO2, 14 of PEEP remains critically ill Vitals Vital Signs Date Time Temp Pulse Resp B/P (MAP) Pulse Ox O2 Delivery O2 Flow Rate FiO2 03/20/19 10:17 100 15.0 03/20/19 08:44 Ventilator 03/20/19 06:00 56 16 156/91 (112) 03/20/19 04:00 98.6 98.6 Comments ros as mentioned as mentioned as above other sys otherwise neg on vent sedated Lungs: Other (decrease bs) Cardiovascular: S1, S2 Abdomen: Soft, Non-tender, Other (obese) Extremities: Other (lymphedema) Skin: Warm Labs Laboratory Tests Test 03/18/19 12:50 03/18/19 17:41 03/19/19 00:27 03/19/19 06:05 Glucose (Fingerstick) 175 mg/dL (70-99) 159 mg/dL (70-99) 143 mg/dL (70-99) White Blood Count 6.9 x10^3/uL (4.0-11.0) Red Blood Count 5.14 x10^6/uL (4.30-5.70) Hemoglobin 12.5 g/dL (13.0-17.5) Hematocrit 39.7 % (39.0-53.0) Mean Corpuscular Volume 77 fL (79-100) Mean Corpuscular Hemoglobin 24 pg (25-35) Mean Corpuscular Hemoglobin Concent 31 g/dL (31-37) Red Cell Distribution Width 18.5 % (11.5-14.5) Platelet Count 223 x10^3/uL (140-400) Neutrophils (%) (Auto) 89 % (31-73) Lymphocytes (%) (Auto) 4 % (24-48) Monocytes (%) (Auto) 7 % (0-9) Eosinophils (%) (Auto) 0 % (0-3) Basophils (%) (Auto) 0 % (0-3) Neutrophils # (Auto) 6.1 x10^3/uL (1.8-7.7) Lymphocytes # (Auto) 0.3 x10^3/uL (1.0-4.8) Monocytes # (Auto) 0.5 x10^3/uL (0.0-1.1) Eosinophils # (Auto) 0.0 x10^3/uL (0.0-0.7) Basophils # (Auto) 0.0 x10^3/uL (0.0-0.2) Sodium Level 141 mmol/L (136-145) Potassium Level 4.0 mmol/L (3.5-5.1) Chloride Level 101 mmol/L (98-107) Carbon Dioxide Level 34 mmol/L (21-32) Anion Gap 6 (6-14) Blood Urea Nitrogen 46 mg/dL (8-26) Creatinine 1.3 mg/dL (0.7-1.3) Estimated GFR (Cockcroft-Gault) 71.3 Glucose Level 138 mg/dL (70-99) Calcium Level 9.1 mg/dL (8.5-10.1) Magnesium Level 2.1 mg/dL (1.8-2.4) Test 03/19/19 06:07 03/19/19 08:40 03/19/19 12:08 03/19/19 17:24 Glucose (Fingerstick) 140 mg/dL (70-99) 121 mg/dL (70-99) 139 mg/dL (70-99) O2 Saturation 94 % (92-99) Arterial Blood pH 7.41 (7.35-7.45) Arterial Blood pCO2 at Patient Temp 57 mmHg (35-46) Arterial Blood pO2 at Patient Temp 71 mmHg (75-108) Arterial Blood HCO3 35 mmol/L (21-28) Arterial Blood Base Excess 9 mmol/L (-3-3) FiO2 100 Test 03/20/19 00:39 03/20/19 05:30 03/20/19 06:09 Glucose (Fingerstick) 133 mg/dL (70-99) 121 mg/dL (70-99) White Blood Count 7.0 x10^3/uL (4.0-11.0) Red Blood Count 5.04 x10^6/uL (4.30-5.70) Hemoglobin 12.3 g/dL (13.0-17.5) Hematocrit 38.8 % (39.0-53.0) Mean Corpuscular Volume 77 fL (79-100) Mean Corpuscular Hemoglobin 24 pg (25-35) Mean Corpuscular Hemoglobin Concent 32 g/dL (31-37) Red Cell Distribution Width 18.7 % (11.5-14.5) Platelet Count 243 x10^3/uL (140-400) Neutrophils (%) (Auto) 90 % (31-73) Lymphocytes (%) (Auto) 4 % (24-48) Monocytes (%) (Auto) 6 % (0-9) Eosinophils (%) (Auto) 0 % (0-3) Basophils (%) (Auto) 0 % (0-3) Neutrophils # (Auto) 6.3 x10^3/uL (1.8-7.7) Lymphocytes # (Auto) 0.3 x10^3/uL (1.0-4.8) Monocytes # (Auto) 0.4 x10^3/uL (0.0-1.1) Eosinophils # (Auto) 0.0 x10^3/uL (0.0-0.7) Basophils # (Auto) 0.0 x10^3/uL (0.0-0.2) Sodium Level 142 mmol/L (136-145) Potassium Level 4.2 mmol/L (3.5-5.1) Chloride Level 102 mmol/L (98-107) Carbon Dioxide Level 35 mmol/L (21-32) Anion Gap 5 (6-14) Blood Urea Nitrogen 52 mg/dL (8-26) Creatinine 1.3 mg/dL (0.7-1.3) Estimated GFR (Cockcroft-Gault) 71.3 Glucose Level 135 mg/dL (70-99) Calcium Level 9.4 mg/dL (8.5-10.1) Laboratory Tests Test 03/19/19 12:08 03/19/19 17:24 03/20/19 00:39 03/20/19 05:30 Glucose (Fingerstick) 121 mg/dL (70-99) 139 mg/dL (70-99) 133 mg/dL (70-99) White Blood Count 7.0 x10^3/uL (4.0-11.0) Red Blood Count 5.04 x10^6/uL (4.30-5.70) Hemoglobin 12.3 g/dL (13.0-17.5) Hematocrit 38.8 % (39.0-53.0) Mean Corpuscular Volume 77 fL (79-100) Mean Corpuscular Hemoglobin 24 pg (25-35) Mean Corpuscular Hemoglobin Concent 32 g/dL (31-37) Red Cell Distribution Width 18.7 % (11.5-14.5) Platelet Count 243 x10^3/uL (140-400) Neutrophils (%) (Auto) 90 % (31-73) Lymphocytes (%) (Auto) 4 % (24-48) Monocytes (%) (Auto) 6 % (0-9) Eosinophils (%) (Auto) 0 % (0-3) Basophils (%) (Auto) 0 % (0-3) Neutrophils # (Auto) 6.3 x10^3/uL (1.8-7.7) Lymphocytes # (Auto) 0.3 x10^3/uL (1.0-4.8) Monocytes # (Auto) 0.4 x10^3/uL (0.0-1.1) Eosinophils # (Auto) 0.0 x10^3/uL (0.0-0.7) Basophils # (Auto) 0.0 x10^3/uL (0.0-0.2) Sodium Level 142 mmol/L (136-145) Potassium Level 4.2 mmol/L (3.5-5.1) Chloride Level 102 mmol/L (98-107) Carbon Dioxide Level 35 mmol/L (21-32) Anion Gap 5 (6-14) Blood Urea Nitrogen 52 mg/dL (8-26) Creatinine 1.3 mg/dL (0.7-1.3) Estimated GFR (Cockcroft-Gault) 71.3 Glucose Level 135 mg/dL (70-99) Calcium Level 9.4 mg/dL (8.5-10.1) Test 03/20/19 06:09 Glucose (Fingerstick) 121 mg/dL (70-99) Medications Active Scripts Medications Dose Route/Sig Max Daily Dose Days Date Category Hydrochlorothiazide Tablet (Hydrochlorothiazide) 25 Mg Tablet 25 Mg PO DAILY 03/10/19 Reported Norvasc (Amlodipine Besylate) 5 Mg Tablet 1 Tab PO DAILY 01/12/19 Rx Lisinopril 5 Mg Tablet 1 Tab PO DAILY 01/12/19 Rx Comments cxr reviewed 03/20 bilateral infiltrate, .mildly improved on left Impression . 1. Acute hypercapnic respiratory failure secondary to multifactorial etiologies.related to acute lung injury/non-cardiogenic pulmonary edema/ ARDS due to vaping. Needing max amount of oxygen and high PEEP c/w shunt physiology due to ARDS CTA non diagnostic for PE. Dopplers neg 2. Abnormal chest x-ray with bilateral lung infiltrates. noncardiogenic pulmonary edema. CT chest reviewed. Developed fever 03/16 and worsening left lung infiltrate,? superimposed VAP, check all cultures. Abx per ID/ fever improving 3. History of morbid obesity with Pickwickian physiology with chronic hypercapnia and chronic hypoxic respiratory failure, history of obstructive sleep apnea as well, but noncompliant to CPAP. 4. Acute kidney injury. stable 5. Increased troponin. Possible non-ST myocardial infarction. 6. Previous echo with normal ejection fraction. PA 55 likely secondary pulmonary HTN 7. History of tobacco use. Plan . 1. Continue with present assist control mode. wean PEEP to 13,%FIO2 down to 80 %. titrate fi02 to keep sat 92%, make necessary adjustment based on followup ABGs. cont vent support. ok with permissive hypercapnia 2. high dose steroids ,initiated 03/16 3. No acute bleed on CT head. 4. Abx per ID, check all new cultures 5. Monitor fever and white cell count.overall no further fever 6. Continue bronchodilators. 7. Heparin for DVT prophylaxis 8. diuresis.d/w renal. lasix drip, consider reducing dose 9. family meeting again done regarding critical condition and goals of care. reviewed the current medical condition; including high oxygen needs; and PEEP Discussed the following; Risk of tracheostomy: Risk of transfer to another facility. Discussed resuscitation; Family requests DNR.Continue aggressive supportive care discussed with RN and RT. We will follow along with you. MARIO ALLEN MD Mar 20, 2019 11:05
[2019-03-20 11:38] LABS: PCO2 ABG 62 mmHg (35-46)
--- NOTE | 2019-03-20 12:13 | RAD ---
CHEST AP ONLY History: Intubation Comparison: March 19, 2019 Findings: Single view of the chest is submitted. There is enteric catheter coursing into the stomach. There is endotracheal tube with tip about 5-6 cm from mariely. There is right internal jugular catheter with tip in the superior vena cava. Pericardial cardiac silhouette is again enlarged. There is persistent perihilar airspace opacity greater on the left, slightly improved aeration of the mid to inferior left hemithorax although hazy right base of airspace opacity somewhat increased. No pneumothorax is identified. Small left pleural effusion again is again excluded. Impression: 1. There are support catheters and tubes as stated. There is persistent perihilar opacity greater on the left, somewhat improved aeration on the left although somewhat increased hazy airspace opacity of the right lung base. Electronically signed by: Goran Lucio MD (03/20/2019 12:10 PM) [id number]
--- NOTE | 2019-03-20 15:15 | NUR ---
at 1500 patient extubated self, bagged patient 100% o2 ,anesthia called reintubated at 1505 # 8 ET tube taped at 25 teeth. og inserted chest and kub done Dr. Conley informed
--- NOTE | 2019-03-20 15:31 | PDOC ---
Date and Time Called STAT to ICU patient self extubated Resp failure. 80% FiO2 13 PEEP Being assisted with 100% oxygen when I arrived. Awake talking. Given 100mg Propofol, existing sedation continued. Glidescope used, very difficult to visualize due to extensive soft tissue edema. 8.0 OET placed. End tidal CO2 present, breath sounds distant bilaterally. Secured at 25cm (as previous ETT). SpO2 96%, CXR pending Current Medications Current Medications Albuterol/ Ipratropium (Duoneb) 3 ml 1X ONCE NEB Last administered on 03/09/19at 21:21; Start 03/09/19 at 21:30; Stop 03/09/19 at 21:31; Status DC Dexamethasone Sodium Phosphate (Decadron) 10 mg 1X ONCE IV Last administered on 03/09/19at 22:29; Start 03/09/19 at 22:00; Stop 03/09/19 at 22:01; Status DC Propofol 100 ml @ 0 mls/hr CONT PRN IV SEE PROTOCOL Last administered on 03/10/19at 07:19; Start 03/09/19 at 22:30; Stop 03/10/19 at 07:28; Status DC Fentanyl Citrate (Fentanyl 2ml Vial) 50 mcg PRN Q1HR PRN IV SEE COMMENTS; Start 03/09/19 at 22:30; Stop 03/10/19 at 07:28; Status DC Chlorhexidine Gluconate (Peridex) 15 ml BID MM Last administered on 03/20/19at 08:36; Start 03/10/19 at 09:00 Famotidine (Pepcid Vial) 20 mg BID IVP Last administered on 03/20/19at 08:36; Start 03/10/19 at 09:00 Propofol 50 ml @ As Directed STK-MED ONCE IV ; Start 03/09/19 at 22:28; Stop 03/09/19 at 22:28; Status DC Albuterol/ Ipratropium (Duoneb) 3 ml 1X ONCE NEB Last administered on 03/10/19at 02:04; Start 03/09/19 at 23:00; Stop 03/09/19 at 23:01; Status DC Albuterol/ Ipratropium (Duoneb) 3 ml 1X ONCE NEB Last administered on 03/10/19at 02:04; Start 03/09/19 at 23:00; Stop 03/09/19 at 23:01; Status DC Fentanyl Citrate (Fentanyl 2ml Vial) 100 mcg 1X ONCE IV Last administered on 03/09/19at 23:31; Start 03/09/19 at 23:30; Stop 03/09/19 at 23:31; Status DC Bumetanide (Bumex) 1 mg 1X ONCE IV Last administered on 03/10/19at 00:21; Start 03/10/19 at 00:00; Stop 03/10/19 at 00:01; Status DC Heparin Sodium (Porcine) (Heparin Sodium) 4,000 unit 1X ONCE IV Last administered on 03/10/19at 00:31; Start 03/10/19 at 00:00; Stop 03/10/19 at 00:01; Status DC Heparin Sodium/ Dextrose 500 ml @ 0 mls/hr CONT PRN IV PER PROTOCOL Last administered on 03/10/19at 23:34; Start 03/09/19 at 23:45; Stop 03/11/19 at 16:13; Status DC Heparin Sodium (Porcine) (Heparin Sodium) 5,500 unit PRN Q6HRS PRN IV FOR UFH LEVEL LESS THAN 0.2 Last administered on 03/11/19at 00:57; Start 03/09/19 at 23:45; Stop 03/11/19 at 16:13; Status DC Aspirin (Aspirin Rectal Supp) 300 mg 1X ONCE SC Last administered on 03/10/19at 03:42; Start 03/10/19 at 00:00; Stop 03/10/19 at 00:01; Status DC Propofol 50 ml @ As Directed STK-MED ONCE IV ; Start 03/09/19 at 23:38; Stop 03/09/19 at 23:38; Status DC Propofol 50 ml @ As Directed STK-MED ONCE IV ; Start 03/09/19 at 23:38; Stop 03/09/19 at 23:38; Status DC Piperacillin Sod/ Tazobactam Sod 4.5 gm/Sodium Chloride 100 ml @ 200 mls/hr 1X ONCE IV Last administered on 03/10/19at 05:19; Start 03/10/19 at 00:30; Stop 03/10/19 at 00:59; Status DC Propofol 50 ml @ As Directed STK-MED ONCE IV ; Start 03/10/19 at 00:51; Stop 03/10/19 at 00:51; Status DC Propofol 50 ml @ As Directed STK-MED ONCE IV ; Start 03/10/19 at 01:14; Stop 03/10/19 at 01:15; Status DC Fentanyl Citrate (Fentanyl 2ml Vial) 100 mcg 1X ONCE IV Last administered on 03/10/19at 01:26; Start 03/10/19 at 01:45; Stop 03/10/19 at 01:46; Status DC Clonidine HCl (Catapres) 0.1 mg 1X ONCE PO ; Start 03/10/19 at 01:30; Stop 03/10/19 at 01:34; Status DC Midazolam HCl (Versed) 5 mg 1X ONCE IV Last administered on 03/10/19at 01:28; Start 03/10/19 at 01:30; Stop 03/10/19 at 01:34; Status DC Propofol 50 ml @ As Directed STK-MED ONCE IV ; Start 03/10/19 at 02:08; Stop 03/10/19 at 02:09; Status DC Propofol 50 ml @ As Directed STK-MED ONCE IV ; Start 03/10/19 at 02:36; Stop 03/10 at 02:36; Status DC Rocuronium Ponce (Zemuron) 50 mg STK-MED ONCE .ROUTE ; Start 03/10/19 at 05:15; Stop 03/10/19 at 05:15; Status DC Etomidate (Amidate) 20 mg STK-MED ONCE IV ; Start 03/10/19 at 05:15; Stop 03/10/19 at 05:16; Status DC Fentanyl Citrate 30 ml @ 0 mls/hr CONT PRN IV SEE PROTOCOL Last administered on 03/20/19at 10:17; Start 03/10/19 at 07:30 Propofol 100 ml @ 0 mls/hr CONT PRN IV SEE PROTOCOL; Start 03/10/19 at 07:30 Fentanyl Citrate (Fentanyl 2ml Vial) 25 mcg PRN Q1HR PRN IV SEE COMMENTS; Start 03/10/19 at 07:30 Fentanyl Citrate (Fentanyl 2ml Vial) 50 mcg PRN Q1HR PRN IV SEE COMMENTS; Start 03/10/19 at 07:30 Artificial Tears (Artificial Tears) 1 drop PRN Q1HR PRN OU DRY EYE, 1ST CHOICE Last administered on 03/13/19at 13:32; Start 03/10/19 at 07:30 Famotidine (Pepcid Vial) 20 mg BID IVP ; Start 03/10/19 at 09:00; Status UNV Morphine Sulfate (Morphine Sulfate) 2 mg PRN Q1HR PRN IV SEE COMMENTS.; Start 03/10/19 at 07:30 Morphine Sulfate (Morphine Sulfate) 4 mg PRN Q1HR PRN IV SEE COMMENTS.; Start 03/10/19 at 07:30 Midazolam HCl 100 ml @ 0 mls/hr CONT PRN IV SEE PROTOCOL Last administered on 03/20/19at 09:02; Start 03/10/19 at 07:30 Levofloxacin/ Dextrose (Levaquin Per Pharmacy) 1 each PRN DAILY PRN MC SEE COMMENTS; Start 03/10/19 at 08:15; Stop 03/14/19 at 09:25; Status DC Albuterol/ Ipratropium (Duoneb) 3 ml RTQID NEB Last administered on 03/20/19at 11:53; Start 03/10/19 at 12:00 Sodium Chloride 1,000 ml @ 100 mls/hr Q10H IV Last administered on 03/10/19at 23:34; Start 03/10/19 at 08:15; Stop 03/11/19 at 16:02; Status DC Amlodipine Besylate (Norvasc) 5 mg DAILY PO Last administered on 03/10/19at 09:13; Start 03/10/19 at 09:00; Stop 03/10/19 at 10:04; Status DC Hydrochlorothiazide (Hydrodiuril) 25 mg DAILY PO Last administered on 03/10/19at 09:13; Start 03/10/19 at 09:00; Stop 03/10/19 at 10:04; Status DC Lisinopril (Prinivil) 5 mg DAILY PO Last administered on 03/10/19at 09:13; Start 03/10/19 at 09:00; Stop 03/10/19 at 10:04; Status DC Levofloxacin/ Dextrose 100 ml @ 100 mls/hr Q24H IV Last administered on 03/14/19at 08:10; Start 03/10/19 at 09:00; Stop 03/14/19 at 09:25; Status DC Aspirin (Amanda Aspirin) 325 mg 1X ONCE PO Last administered on 03/10/19at 10:55; Start 03/10/19 at 10:30; Stop 03/10/19 at 10:31; Status DC Aspirin (Children'S Aspirin) 81 mg DAILYWBKFT PO Last administered on 03/20/19at 08:36; Start 03/11/19 at 08:00 Amlodipine Besylate (Norvasc) 10 mg DAILY PO Last administered on 03/11/19at 09:37; Start 03/11/19 at 09:00; Stop 03/11/19 at 12:50; Status DC Hydralazine HCl (Apresoline Inj) 10 mg PRN Q4HRS PRN IVP ELEVATED BP, SEE COMMENTS; Start 03/10/19 at 10:15; Stop 03/12/19 at 09:37; Status DC Furosemide (Lasix) 40 mg DAILY IVP Last administered on 03/11/19at 09:37; Start 03/10/19 at 11:00; Stop 03/11/19 at 11:24; Status DC Insulin Human Lispro (HumaLOG) 0-9 UNITS TIDWMEALS SQ ; Start 03/10/19 at 12:00; Stop 03/10/19 at 17:57; Status DC Dextrose (Dextrose 50%-Water Syringe) 12.5 gm PRN Q15MIN PRN IV SEE COMMENTS; Start 03/10/19 at 11:15; Stop 03/12/19 at 16:47; Status DC Dextrose 250 ml PRN Q15MIN PRN IV SEE COMMENTS; Start 03/10/19 at 11:15; Stop 03/10/19 at 11:05; Status DC Iohexol (Omnipaque 350 Mg/ml) 100 ml 1X ONCE IV Last administered on 03/10/19at 14:05; Start 03/10/19 at 11:45; Stop 03/10/19 at 11:47; Status DC Info (CONTRAST GIVEN -- Rx MONITORING) 1 each PRN DAILY PRN MC SEE COMMENTS; Start 03/10/19 at 11:45; Stop 03/12/19 at 11:44; Status DC Piperacillin Sod/ Tazobactam Sod (Zosyn Per Pharmacy) 1 each PRN DAILY PRN MC SEE COMMENTS; Start 03/10/19 at 11:45 Vancomycin HCl (Vanco Per Pharmacy) 1 each PRN DAILY PRN MC SEE COMMENTS Last administered on 03/11/19at 09:42; Start 03/10/19 at 11:45; Stop 03/11/19 at 13:57; Status DC Vancomycin HCl 2 gm/Sodium Chloride 500 ml @ 250 mls/hr 1X ONCE IV Last administered on 03/10/19at 12:41; Start 03/10/19 at 13:00; Stop 03/10/19 at 14:59; Status DC Piperacillin Sod/ Tazobactam Sod 3.375 gm/Sodium Chloride 50 ml @ 100 mls/hr Q6HRS IV Last administered on 03/20/19at 12:35; Start 03/10/19 at 12:30 Vancomycin HCl 1.75 gm/Sodium Chloride 500 ml @ 250 mls/hr Q12H IV Last administered on 03/11/19at 12:43; Start 03/11/19 at 01:00; Stop 03/11/19 at 13:57; Status DC Vancomycin HCl (Vancomycin Trough Level) 1 each 1X ONCE MC ; Start 03/12/19 at 12:30; Stop 03/12/19 at 12:31; Status Cancel Insulin Human Lispro (HumaLOG) 0-9 UNITS Q6HRS SQ ; Start 03/11/19 at 00:00; Stop 03/12/19 at 16:14; Status DC Magnesium Sulfate/ Dextrose 100 ml @ 50 mls/hr DAILY IV Last administered on 03/11/19at 09:28; Start 03/11/19 at 09:00; Stop 03/14/19 at 08:59; Status DC Potassium Phosphate 27.2 mmol/Sodium Chloride 259.0667 ml @ 64.753 m... 1X ONCE IV Last administered on 03/11/19at 09:28; Start 03/11/19 at 10:00; Stop at 14:00; Status DC Potassium Phosphate 27.2 mmol/Sodium Chloride 259.0667 ml @ 64.753 m... 1X ONCE IV ; Start 03/11/19 at 14:00; Stop 03/11/19 at 18:00; Status DC Lorazepam (Ativan Inj) 1 mg PRN Q1HR PRN IV ANXIETY Last administered on 03/14/19at 16:32; Start 03/11/19 at 11:00; Stop 03/19/19 at 10:31; Status DC Sodium Chloride 1,000 ml @ 1,000 mls/hr 1X ONCE IV Last administered on 03/11/19at 12:06; Start 03/11/19 at 11:30; Stop 03/11/19 at 12:29; Status DC Norepinephrine Bitartrate 250 ml @ 27.837 mls/ hr CONT PRN IV SEE I/O RECORD Last administered on 03/13/19at 04:13; Start 03/11/19 at 13:00 Hydralazine HCl (Apresoline Inj) 10 mg PRN Q4HRS PRN IVP ELEVATED BP, SEE COMMENTS Last administered on 03/19/19at 01:32; Start 03/11/19 at 13:00 Linezolid/Dextrose 300 ml @ 300 mls/hr Q12HR IV Last administered on 03/20/19at 08:36; Start 03/11/19 at 21:00 Potassium Chloride/Water 50 ml @ 50 mls/hr Q1H IV Last administered on 03/11/19at 17:28; Start 03/11/19 at 16:00; Stop 03/11/19 at 17:59; Status DC Heparin Sodium (Porcine) (Heparin Sodium) 5,000 unit Q8HRS SQ Last administered on 03/20/19at 13:51; Start 03/11/19 at 22:00 Multi-Ingred Cream/Lotion/Oil/ Oint (Artificial Tears Eye Ointment) 1 zuri PRN Q1HR PRN OU DRY EYE; Start 03/12/19 at 09:00 Potassium Chloride/Water 50 ml @ 50 mls/hr 1X ONCE IV Last administered on 03/12/19at 09:44; Start 03/12/19 at 10:00; Stop 03/12/19 at 10:59; Status DC Potassium Chloride/Water 50 ml @ 50 mls/hr 1X ONCE IV ; Start 03/12/19 at 10:30; Stop 03/12/19 at 11:31; Status DC Insulin Human Lispro (HumaLOG) 0-9 UNITS TIDWMEALS SQ ; Start 03/12/19 at 17:00; Stop 03/12/19 at 16:24; Status DC Dextrose (Dextrose 50%-Water Syringe) 12.5 gm PRN Q15MIN PRN IV SEE COMMENTS; Start 03/12/19 at 16:15 Dextrose 250 ml PRN Q15MIN PRN IV SEE COMMENTS; Start 03/12/19 at 16:15 Insulin Human Lispro (HumaLOG) 0-9 UNITS Q6HRS SQ Last administered on 03/18/19at 18:35; Start 03/12/19 at 18:00 Dexmedetomidine HCl 400 mcg/ Sodium Chloride 100 ml @ 0 mls/hr CONT PRN IV ANXIETY / AGITATION Last administered on 03/20/19at 13:53; Start 03/12/19 at 20:30 Sodium Chloride 500 ml @ 500 mls/hr 1X PRN PRN IV see comments Last administered on 03/12/19at 23:22; Start 03/12/19 at 20:30 Atropine Sulfate (ATROPINE 0.5mg SYRINGE) 0.5 mg PRN Q5MIN PRN IV SEE COMMENTS; Start 03/12/19 at 20:30 Vecuronium Ponce (Norcuron Bolus) 10 mg PRN Q1HR PRN IV ON VENT/RESP FAILURE; Start 03/13/19 at 07:30 Perflutren Protein Type A Microsphe (Optison) 0.66 mg STK-MED ONCE IV ; Start 03/13/19 at 09:08; Stop 03/13/19 at 09:08; Status DC Perflutren Protein Type A Microsphe (Optison) 0.66 mg 1X ONCE IV Last administered on 03/13/19at 09:40; Start 03/13/19 at 09:15; Stop 03/13/19 at 09:16; Status DC Furosemide (Lasix) 40 mg 1X ONCE IVP Last administered on 03/13/19at 13:32; Start 03/13/19 at 10:30; Stop 03/13/19 at 10:31; Status DC Daptomycin 1320 mg/Sodium Chloride 50 ml @ 100 mls/hr ONCE ONCE IV Last administered on 03/15/19at 13:53; Start 03/15/19 at 13:00; Stop 03/16/19 at 09:33; Status DC Daptomycin 1340 mg/Sodium Chloride 50 ml @ 100 mls/hr Q24H IV ; Start 03/16/19 at 08:45; Status UNV Daptomycin 1340 mg/Sodium Chloride 50 ml @ 100 mls/hr Q24H IV ; Start 03/16/19 at 09:00; Status Cancel Daptomycin 830 mg/ Sodium Chloride 50 ml @ 100 mls/hr Q24H IV Last administered on 03/18/19at 15:03; Start 03/16/19 at 14:00; Stop 03/19/19 at 07:41; Status DC Methylprednisolone Sodium Succinate (SOLU-Medrol 125MG VIAL) 100 mg Q8HRS IV Last administered on 03/20/19at 13:51; Start 03/16/19 at 12:00 Furosemide (Lasix) 40 mg 1X ONCE IVP Last administered on 03/16/19at 16:46; Start 03/16/19 at 16:30; Stop 03/16/19 at 16:31; Status DC Fentanyl Citrate (Fentanyl 600 Mcg/30 ml [employer] SPECIALIST) 600 mcg STK-MED ONCE IV ; Start 03/13/19 at 17:00; Stop 03/17/19 at 11:02; Status DC Furosemide 100 mg/ Sodium Chloride 100 ml @ 5 mls/hr CONT PRN IV SEE I/O RECORD Last administered on 03/18/19at 00:20; Start 03/17/19 at 15:45; Stop 03/18/19 at 10:36; Status DC Furosemide 100 mg/ Sodium Chloride 100 ml @ 5 mls/hr CONT PRN IV SEE I/O RECORD Last administered on 03/20/19at 07:38; Start 03/18/19 at 10:45 Lorazepam (Ativan Inj) 2 mg PRN Q1HR PRN IV ANXIETY Last administered on 03/19/19at 11:56; Start 03/19/19 at 10:45 Active Scripts Active Norvasc (Amlodipine Besylate) 5 Mg Tablet 1 Tab PO DAILY Lisinopril 5 Mg Tablet 1 Tab PO DAILY Reported Hydrochlorothiazide Tablet (Hydrochlorothiazide) 25 Mg Tablet 25 Mg PO DAILY Pertinent Labs/Test Laboratory Tests Test 03/18/19 17:41 03/19/19 00:27 03/19/19 06:05 03/19/19 06:07 Glucose (Fingerstick) 159 mg/dL (70-99) 143 mg/dL (70-99) 140 mg/dL (70-99) White Blood Count 6.9 x10^3/uL (4.0-11.0) Red Blood Count 5.14 x10^6/uL (4.30-5.70) Hemoglobin 12.5 g/dL (13.0-17.5) Hematocrit 39.7 % (39.0-53.0) Mean Corpuscular Volume 77 fL (79-100) Mean Corpuscular Hemoglobin 24 pg (25-35) Mean Corpuscular Hemoglobin Concent 31 g/dL (31-37) Red Cell Distribution Width 18.5 % (11.5-14.5) Platelet Count 223 x10^3/uL (140-400) Neutrophils (%) (Auto) 89 % (31-73) Lymphocytes (%) (Auto) 4 % (24-48) Monocytes (%) (Auto) 7 % (0-9) Eosinophils (%) (Auto) 0 % (0-3) Basophils (%) (Auto) 0 % (0-3) Neutrophils # (Auto) 6.1 x10^3/uL (1.8-7.7) Lymphocytes # (Auto) 0.3 x10^3/uL (1.0-4.8) Monocytes # (Auto) 0.5 x10^3/uL (0.0-1.1) Eosinophils # (Auto) 0.0 x10^3/uL (0.0-0.7) Basophils # (Auto) 0.0 x10^3/uL (0.0-0.2) Sodium Level 141 mmol/L (136-145) Potassium Level 4.0 mmol/L (3.5-5.1) Chloride Level 101 mmol/L (98-107) Carbon Dioxide Level 34 mmol/L (21-32) Anion Gap 6 (6-14) Blood Urea Nitrogen 46 mg/dL (8-26) Creatinine 1.3 mg/dL (0.7-1.3) Estimated GFR (Cockcroft-Gault) 71.3 Glucose Level 138 mg/dL (70-99) Calcium Level 9.1 mg/dL (8.5-10.1) Magnesium Level 2.1 mg/dL (1.8-2.4) Test 03/19/19 08:40 03/19/19 12:08 03/19/19 17:24 03/20/19 00:39 O2 Saturation 94 % (92-99) Arterial Blood pH 7.41 (7.35-7.45) Arterial Blood pCO2 at Patient Temp 57 mmHg (35-46) Arterial Blood pO2 at Patient Temp 71 mmHg (75-108) Arterial Blood HCO3 35 mmol/L (21-28) Arterial Blood Base Excess 9 mmol/L (-3-3) FiO2 100 Glucose (Fingerstick) 121 mg/dL (70-99) 139 mg/dL (70-99) 133 mg/dL (70-99) Test 03/20/19 05:30 03/20/19 06:09 03/20/19 07:45 03/20/19 12:39 White Blood Count 7.0 x10^3/uL (4.0-11.0) Red Blood Count 5.04 x10^6/uL (4.30-5.70) Hemoglobin 12.3 g/dL (13.0-17.5) Hematocrit 38.8 % (39.0-53.0) Mean Corpuscular Volume 77 fL (79-100) Mean Corpuscular Hemoglobin 24 pg (25-35) Mean Corpuscular Hemoglobin Concent 32 g/dL (31-37) Red Cell Distribution Width 18.7 % (11.5-14.5) Platelet Count 243 x10^3/uL (140-400) Neutrophils (%) (Auto) 90 % (31-73) Lymphocytes (%) (Auto) 4 % (24-48) Monocytes (%) (Auto) 6 % (0-9) Eosinophils (%) (Auto) 0 % (0-3) Basophils (%) (Auto) 0 % (0-3) Neutrophils # (Auto) 6.3 x10^3/uL (1.8-7.7) Lymphocytes # (Auto) 0.3 x10^3/uL (1.0-4.8) Monocytes # (Auto) 0.4 x10^3/uL (0.0-1.1) Eosinophils # (Auto) 0.0 x10^3/uL (0.0-0.7) Basophils # (Auto) 0.0 x10^3/uL (0.0-0.2) Sodium Level 142 mmol/L (136-145) Potassium Level 4.2 mmol/L (3.5-5.1) Chloride Level 102 mmol/L (98-107) Carbon Dioxide Level 35 mmol/L (21-32) Anion Gap 5 (6-14) Blood Urea Nitrogen 52 mg/dL (8-26) Creatinine 1.3 mg/dL (0.7-1.3) Estimated GFR (Cockcroft-Gault) 71.3 Glucose Level 135 mg/dL (70-99) Calcium Level 9.4 mg/dL (8.5-10.1) Glucose (Fingerstick) 121 mg/dL (70-99) 155 mg/dL (70-99) O2 Saturation 95 % (92-99) Arterial Blood pH 7.37 (7.35-7.45) Arterial Blood pCO2 at Patient Temp 62 mmHg (35-46) Arterial Blood pO2 at Patient Temp 79 mmHg (75-108) Arterial Blood HCO3 35 mmol/L (21-28) Arterial Blood Base Excess 8 mmol/L (-3-3) Laboratory Tests Test 03/19/19 17:24 03/20/19 00:39 03/20/19 05:30 03/20/19 06:09 Glucose (Fingerstick) 139 mg/dL (70-99) 133 mg/dL (70-99) 121 mg/dL (70-99) White Blood Count 7.0 x10^3/uL (4.0-11.0) Red Blood Count 5.04 x10^6/uL (4.30-5.70) Hemoglobin 12.3 g/dL (13.0-17.5) Hematocrit 38.8 % (39.0-53.0) Mean Corpuscular Volume 77 fL (79-100) Mean Corpuscular Hemoglobin 24 pg (25-35) Mean Corpuscular Hemoglobin Concent 32 g/dL (31-37) Red Cell Distribution Width 18.7 % (11.5-14.5) Platelet Count 243 x10^3/uL (140-400) Neutrophils (%) (Auto) 90 % (31-73) Lymphocytes (%) (Auto) 4 % (24-48) Monocytes (%) (Auto) 6 % (0-9) Eosinophils (%) (Auto) 0 % (0-3) Basophils (%) (Auto) 0 % (0-3) Neutrophils # (Auto) 6.3 x10^3/uL (1.8-7.7) Lymphocytes # (Auto) 0.3 x10^3/uL (1.0-4.8) Monocytes # (Auto) 0.4 x10^3/uL (0.0-1.1) Eosinophils # (Auto) 0.0 x10^3/uL (0.0-0.7) Basophils # (Auto) 0.0 x10^3/uL (0.0-0.2) Sodium Level 142 mmol/L (136-145) Potassium Level 4.2 mmol/L (3.5-5.1) Chloride Level 102 mmol/L (98-107) Carbon Dioxide Level 35 mmol/L (21-32) Anion Gap 5 (6-14) Blood Urea Nitrogen 52 mg/dL (8-26) Creatinine 1.3 mg/dL (0.7-1.3) Estimated GFR (Cockcroft-Gault) 71.3 Glucose Level 135 mg/dL (70-99) Calcium Level 9.4 mg/dL (8.5-10.1) Test 03/20/19 07:45 03/20/19 12:39 O2 Saturation 95 % (92-99) Arterial Blood pH 7.37 (7.35-7.45) Arterial Blood pCO2 at Patient Temp 62 mmHg (35-46) Arterial Blood pO2 at Patient Temp 79 mmHg (75-108) Arterial Blood HCO3 35 mmol/L (21-28) Arterial Blood Base Excess 8 mmol/L (-3-3) Glucose (Fingerstick) 155 mg/dL (70-99) LAST VITALS Vital Signs Date Time Temp Pulse Resp B/P (MAP) Pulse Ox O2 Delivery O2 Flow Rate FiO2 03/20/19 14:00 75 17 149/85 (106) 100 Ventilator 03/20/19 12:00 98.2 98.2 03/20/19 10:17 15.0 SKYLER CAMPOS MD Mar 20, 2019 15:31
--- NOTE | 2019-03-20 16:26 | RAD ---
Single view of the chest. 03/20/2019 3:32 PM Indication: Intubation Comparison: Chest radiograph, earlier today Findings: There is an endotracheal tube in place measuring approximately 5 cm above the mariely. Enteric tube is present tip of which is not visualized. Right internal jugular central line is seen with tip projecting over the cavoatrial junction. No pneumothorax is identified. Patchy infiltrates throughout the bilateral lungs and probable small layering effusions are again noted. Heart appears enlarged. Central vascular congestion may be present. IMPRESSION: 1. Grossly similar appearing support lines and tubes 2. Patchy infiltrates throughout the bilateral lungs with probable small pleural effusions 3. Cardiomegaly and central vascular congestion appear to be present Electronically signed by: Nikita Vernon MD (03/20/2019 4:23 PM) [id number]
--- NOTE | 2019-03-20 23:58 | RAD ---
KUB INDICATION: Enteric tube placement COMPARISON: None. TECHNIQUE: Supine view of the abdomen was obtained. FINDINGS/ IMPRESSION: Suboptimal exam due to technique and patient's habitus. There is tubing overlying the upper abdomen, but it is unclear if this is the patient's orogastric tube. Consider repeat examination to confirm position. Electronically signed by: Goran Salinas MD (03/20/2019 11:55 PM) [id number]
[2019-03-21] VITALS (24 sets, daily range): BP systolic 103–185; BP diastolic 43–121
[2019-03-21] MEDS: DEXMEDETOMIDINE 400 MCG in IV NORMAL SALINE 100ML 96 ML IV PRN ×2 (00:09→04:33)
[2019-03-21 05:29] LABS: BASO % 0 % (0-3); EOS % 0 % (0-3); HEMATOCRIT 41.6 % (39.0-53.0); HEMOGLOBIN 13.2 g/dL (13.0-17.5); LYMPH # 0.3 x10^3/uL (1.0-4.8); LYMPH % 4 % (24-48); MEAN CORPUSCULAR HEMOGLOBIN 25 pg (25-35); MEAN CORPUSCULAR HGB CONC 32 g/dL (31-37); MEAN CORPUSCULAR VOLUME 77 fL (79-100); MONO # 0.4 x10^3/uL (0.0-1.1); MONO % 5 % (0-9); NEUT # 7.1 x10^3/uL (1.8-7.7); NEUT % 91 % (31-73); PLATELET COUNT 254 x10^3/uL (140-400); RED BLOOD COUNT 5.37 x10^6/uL (4.30-5.70); RED CELL DISTRIBUTION WIDTH 18.3 % (11.5-14.5); WHITE BLOOD COUNT 7.8 x10^3/uL (4.0-11.0)
[2019-03-21 05:39] LABS: CALCIUM 9.5 mg/dL (8.5-10.1); CREATININE 1.3 mg/dL (0.7-1.3); GFR 71.3; POTASSIUM 4.3 mmol/L (3.5-5.1)
[2019-03-21 05:43] LABS: MAGNESIUM 2.2 mg/dL (1.8-2.4); PHOSPHORUS 4.4 mg/dL (2.6-4.7)
[2019-03-21] MEDS: PIPERACILLIN/TAZOBACTAM 3.375 GM in IV NORMAL SALINE 50ML 50 ML IV SCH ×3 (05:47→18:05)
[2019-03-21] MEDS: methylPREDNISolone SOD SUCC PF 125 MG/2 ML VIAL. IV SCH ×3 (05:47→21:41)
[2019-03-21] MEDS: INSULIN LISPRO 300 UNITS/3 ML VIAL. SQ SCH ×3 (05:52→18:00)
[2019-03-21] MEDS: HEPARIN for SUB-Q USE 5,000 UNIT/ML VIAL. SQ SCH ×3 (05:54→21:42)
[2019-03-21] MEDS: MIDAZOLAM 100mg/100ml NS BAG 100 ML IV PRN ×2 (05:56→17:08)
[2019-03-21] MEDS: hydrALAZINE 20 MG/ML VIAL. IVP PRN (06:18)
[2019-03-21] MEDS: IPRATRPIUM/ALBUTEROL 0.5/2.5MG 3 ML NEBU. NEB SCH ×4 (07:25→19:47)
--- NOTE | 2019-03-21 07:42 | RAD ---
CHEST AP ONLY History: Intubation Comparison: March 20, 2019 Findings: Single view of the chest is submitted. There is again endotracheal tube with tip about 5 cm from mariely. There is enteric catheter coursing into the region of the superior abdomen although poorly visualized otherwise. It should be noted the entirety of the costophrenic sulci were not entirely included on this exam. There is again right internal jugular venous catheter with tip in the region of the superior aspect of the superior vena cava. Pericardial cardiac silhouette is again enlarged. There is persistent perihilar opacity greater on the left and also bibasilar airspace and interstitial opacity, findings fairly similar. No pneumothorax is identified. Small pleural effusions are not excluded, again lung bases not entirely included. Impression: 1. Radiographic findings as stated are similar, airspace and interstitial opacity bilaterally which may be due to pneumonia or edema. Given the enlarged pericardial cardiac silhouette, there may be component of left ventricular failure. Electronically signed by: Goran Lucio MD (03/21/2019 7:39 AM) [id number]
--- NOTE | 2019-03-21 07:43 | RAD ---
KUB History: OG tube Comparison: March 20, 2019 Findings: Single portable supine AP view abdomen is submitted. There is enteric catheter with the tip in the region of left upper quadrant abdomen in the region of the stomach. Entirety of the pelvis was not included. Impression: 1. Enteric catheter tip terminates in region of stomach. Electronically signed by: Goran Lucio MD (03/21/2019 7:40 AM) [id number]
[2019-03-21 08:16] LABS: BASE EXCESS ABG 9 mmol/L (-3-3); HCO3 ABG 35 mmol/L (21-28); PCO2 ABG 53 mmHg (35-46); PO2 ABG 63 mmHg (75-108); SAT O2 ABG 92 % (92-99)
[2019-03-21 08:17] LABS: FIO2 ABG 75
--- NOTE | 2019-03-21 08:18 | PDOC ---
Infectious Disease Note Subjective: Subjective Orally intubated/sedated Pt self extubated last night was awake per rn this am no fevers Fio2 75%,PEEP of 13 d/w RN Vital Signs: Vital Signs Vital Signs Date Time Temp Pulse Resp B/P (MAP) Pulse Ox O2 Delivery O2 Flow Rate FiO2 03/21/19 07:25 94 Ventilator 03/21/19 06:18 58 178/105 03/21/19 06:00 16 03/21/19 04:00 98.3 98.3 03/20/19 15:38 15.0 Physical Exam: PHYSICAL EXAM GENERAL: Orally intubated/sedated HEENT: Pupils equal, small. OGT/ETT NECK: Supple LUNGS: dec bs at bases HEART: S1 and S2, regular. ABDOMEN: Obese, soft, +BS : Ramos in place fecal tube in place EXTREMITIES: Trace edema - MITTS SKIN: Chronic stasis dermatitis on the lower extremity. NEUROLOGIC: Sedated RIJ clean Medications: Inpatient Meds: Current Medications Medications (Trade) Dose Ordered Sig/Stefanie Start Time Stop Time Status Last Admin Dose Admin Albuterol/ Ipratropium (Duoneb) 3 ml RTQID 03/10/19 12:00 03/21/19 07:25 3 ML Amlodipine Besylate (Norvasc) 10 mg DAILY 03/11/19 09:00 03/11/19 12:50 DC 03/11/19 09:37 10 MG Artificial Tears (Artificial Tears) 1 drop PRN Q1HR PRN 03/10/19 07:30 03/13/19 13:32 1 DROP Aspirin (Aspirin Rectal Supp) 300 mg 1X ONCE 03/10/19 00:00 03/10/19 00:01 DC 03/10/19 03:42 300 MG Aspirin (Amanda Aspirin) 325 mg 1X ONCE 03/10/19 10:30 03/10/19 10:31 DC 03/10/19 10:55 325 MG Aspirin (Children'S Aspirin) 81 mg DAILYWBKFT 03/11/19 08:00 03/20/19 08:36 81 MG Atropine Sulfate (ATROPINE 0.5mg SYRINGE) 0.5 mg PRN Q5MIN PRN 03/12/19 20:30 Bumetanide (Bumex) 1 mg 1X ONCE 03/10/19 00:00 03/10/19 00:01 DC 03/10/19 00:21 1 MG Chlorhexidine Gluconate (Peridex) 15 ml BID 03/10/19 09:00 03/20/19 20:31 15 ML Clonidine HCl (Catapres) 0.1 mg 1X ONCE 03/10/19 01:30 03/10/19 01:34 DC Daptomycin 1320 mg/Sodium Chloride 50 ml @ 100 mls/hr ONCE ONCE 03/15/19 13:00 03/16/19 09:33 DC 03/15/19 13:53 100 MLS/HR Daptomycin 1340 mg/Sodium Chloride 50 ml @ 100 mls/hr Q24H 03/16/19 09:00 Cancel Daptomycin 830 mg/ Sodium Chloride 50 ml @ 100 mls/hr Q24H 03/16/19 14:00 03/19/19 07:41 DC 03/18/19 15:03 100 MLS/HR Dexamethasone Sodium Phosphate (Decadron) 10 mg 1X ONCE 03/09/19 22:00 03/09/19 22:01 DC 03/09/19 22:29 10 MG Dexmedetomidine HCl 400 mcg/ Sodium Chloride 100 ml @ 0 mls/hr CONT PRN 03/12/19 20:30 03/21/19 04:33 21.7 MLS/HR Dextrose 250 ml PRN Q15MIN PRN 03/12/19 16:15 Dextrose (Dextrose 50%-Water Syringe) 12.5 gm PRN Q15MIN PRN 03/12/19 16:15 Etomidate (Amidate) 20 mg STK-MED ONCE 03/10/19 05:15 03/10/19 05:16 DC Famotidine (Pepcid Vial) 20 mg BID 03/10/19 09:00 UNV Fentanyl Citrate (Fentanyl 2ml Vial) 50 mcg PRN Q1HR PRN 03/10/19 07:30 Fentanyl Citrate (Fentanyl 600 Mcg/30 ml SAFETY COMPANION) 600 mcg STK-MED ONCE 03/13/19 17:00 03/17/19 11:02 DC Furosemide (Lasix) 40 mg 1X ONCE 03/16/19 16:30 03/16/19 16:31 DC 03/16/19 16:46 40 MG Furosemide 100 mg/ Sodium Chloride 100 ml @ 5 mls/hr CONT PRN 03/18/19 10:45 03/20/19 20:11 10 MLS/HR Heparin Sodium (Porcine) (Heparin Sodium) 5,000 unit Q8HRS 03/11/19 22:00 03/21/19 05:54 5,000 UNIT Heparin Sodium/ Dextrose 500 ml @ 0 mls/hr CONT PRN 03/09/19 23:45 03/11/19 16:13 DC 03/10/19 23:34 1,300 MLS/HR Hydralazine HCl (Apresoline Inj) 10 mg PRN Q4HRS PRN 03/11/19 13:00 03/21/19 06:18 10 MG Hydrochlorothiazide (Hydrodiuril) 25 mg DAILY 03/10/19 09:00 03/10/19 10:04 DC 03/10/19 09:13 25 MG Info (CONTRAST GIVEN -- Rx MONITORING) 1 each PRN DAILY PRN 03/10/19 11:45 03/12/19 11:44 DC Insulin Human Lispro (HumaLOG) 0-9 UNITS Q6HRS 03/12/19 18:00 03/18/19 18:35 4 UNITS Iohexol (Omnipaque 350 Mg/ml) 100 ml 1X ONCE 03/10/19 11:45 03/10/19 11:47 DC 03/10/19 14:05 100 ML Levofloxacin/ Dextrose 100 ml @ 100 mls/hr Q24H 03/10/19 09:00 03/14/19 09:25 DC 03/14/19 08:10 100 MLS/HR Levofloxacin/ Dextrose (Levaquin Per Pharmacy) 1 each PRN DAILY PRN 03/10/19 08:15 03/14/19 09:25 DC Linezolid/Dextrose 300 ml @ 300 mls/hr Q12HR 03/11/19 21:00 03/20/19 20:31 300 MLS/HR Lisinopril (Prinivil) 5 mg DAILY 03/10/19 09:00 03/10/19 10:04 DC 03/10/19 09:13 5 MG Lorazepam (Ativan Inj) 2 mg PRN Q1HR PRN 03/19/19 10:45 03/20/19 17:11 2 MG Magnesium Sulfate/ Dextrose 100 ml @ 50 mls/hr DAILY 03/11/19 09:00 03/14/19 08:59 DC 03/11/19 09:28 50 MLS/HR Methylprednisolone Sodium Succinate (SOLU-Medrol 125MG VIAL) 100 mg Q8HRS 03/16/19 12:00 03/21/19 05:54 100 MG Midazolam HCl 100 ml @ 0 mls/hr CONT PRN 03/10/19 07:30 03/21/19 05:56 15 MLS/HR Midazolam HCl (Versed) 5 mg 1X ONCE 03/10/19 01:30 03/10/19 01:34 DC 03/10/19 01:28 5 MG Morphine Sulfate (Morphine Sulfate) 4 mg PRN Q1HR PRN 03/10/19 07:30 Multi-Ingred Cream/Lotion/Oil/ Oint (Artificial Tears Eye Ointment) 1 zuri PRN Q1HR PRN 03/12/19 09:00 Norepinephrine Bitartrate 250 ml @ 27.837 mls/ hr CONT PRN 03/11/19 13:00 03/13/19 04:13 1.392 MLS/HR Perflutren Protein Type A Microsphe (Optison) 0.66 mg 1X ONCE 03/13/19 09:15 03/13/19 09:16 DC 03/13/19 09:40 0.66 MG Piperacillin Sod/ Tazobactam Sod (Zosyn Per Pharmacy) 1 each PRN DAILY PRN 03/10/19 11:45 Piperacillin Sod/ Tazobactam Sod 3.375 gm/Sodium Chloride 50 ml @ 100 mls/hr Q6HRS 03/10/19 12:30 03/21/19 05:54 100 MLS/HR Piperacillin Sod/ Tazobactam Sod 4.5 gm/Sodium Chloride 100 ml @ 200 mls/hr 1X ONCE 03/10/19 00:30 03/10/19 00:59 DC 03/10/19 05:19 200 MLS/HR Potassium Chloride/Water 50 ml @ 50 mls/hr 1X ONCE 03/12/19 10:30 03/12/19 11:31 DC Potassium Phosphate 27.2 mmol/Sodium Chloride 259.0667 ml @ 64.753 m... 1X ONCE 03/11/19 14:00 03/11/19 18:00 DC Propofol 100 ml @ 0 mls/hr CONT PRN 03/10/19 07:30 Rocuronium Randolph (Zemuron) 50 mg STK-MED ONCE 03/10/19 05:15 03/10/19 05:15 DC Sodium Chloride 500 ml @ 500 mls/hr 1X PRN PRN 03/12/19 20:30 03/12/19 23:22 500 MLS/HR Vancomycin HCl (Vanco Per Pharmacy) 1 each PRN DAILY PRN 03/10/19 11:45 03/11/19 13:57 DC 03/11/19 09:42 1 EACH Vancomycin HCl (Vancomycin Trough Level) 1 each 1X ONCE 03/12/19 12:30 03/12/19 12:31 Cancel Vancomycin HCl 1.75 gm/Sodium Chloride 500 ml @ 250 mls/hr Q12H 03/11/19 01:00 03/11/19 13:57 DC 03/11/19 12:43 250 MLS/HR Vancomycin HCl 2 gm/Sodium Chloride 500 ml @ 250 mls/hr 1X ONCE 03/10/19 13:00 03/10/19 14:59 DC 03/10/19 12:41 250 MLS/HR Vecuronium Randolph (Norcuron Bolus) 10 mg PRN Q1HR PRN 03/13/19 07:30 Labs: Lab Laboratory Tests Test 03/20/19 12:39 03/20/19 17:24 03/20/19 23:57 03/21/19 05:15 Glucose (Fingerstick) 155 mg/dL (70-99) 125 mg/dL (70-99) 138 mg/dL (70-99) White Blood Count 7.8 x10^3/uL (4.0-11.0) Red Blood Count 5.37 x10^6/uL (4.30-5.70) Hemoglobin 13.2 g/dL (13.0-17.5) Hematocrit 41.6 % (39.0-53.0) Mean Corpuscular Volume 77 fL (79-100) Mean Corpuscular Hemoglobin 25 pg (25-35) Mean Corpuscular Hemoglobin Concent 32 g/dL (31-37) Red Cell Distribution Width 18.3 % (11.5-14.5) Platelet Count 254 x10^3/uL (140-400) Neutrophils (%) (Auto) 91 % (31-73) Lymphocytes (%) (Auto) 4 % (24-48) Monocytes (%) (Auto) 5 % (0-9) Eosinophils (%) (Auto) 0 % (0-3) Basophils (%) (Auto) 0 % (0-3) Neutrophils # (Auto) 7.1 x10^3/uL (1.8-7.7) Lymphocytes # (Auto) 0.3 x10^3/uL (1.0-4.8) Monocytes # (Auto) 0.4 x10^3/uL (0.0-1.1) Eosinophils # (Auto) 0.0 x10^3/uL (0.0-0.7) Basophils # (Auto) 0.0 x10^3/uL (0.0-0.2) Sodium Level 144 mmol/L (136-145) Potassium Level 4.3 mmol/L (3.5-5.1) Chloride Level 104 mmol/L (98-107) Carbon Dioxide Level 38 mmol/L (21-32) Anion Gap 2 (6-14) Blood Urea Nitrogen 54 mg/dL (8-26) Creatinine 1.3 mg/dL (0.7-1.3) Estimated GFR (Cockcroft-Gault) 71.3 Glucose Level 136 mg/dL (70-99) Calcium Level 9.5 mg/dL (8.5-10.1) Phosphorus Level 4.4 mg/dL (2.6-4.7) Magnesium Level 2.2 mg/dL (1.8-2.4) Test 03/21/19 05:51 03/21/19 08:10 Glucose (Fingerstick) 134 mg/dL (70-99) O2 Saturation 92 % (92-99) Arterial Blood pH 7.44 (7.35-7.45) Arterial Blood pCO2 at Patient Temp 53 mmHg (35-46) Arterial Blood pO2 at Patient Temp 63 mmHg (75-108) Arterial Blood HCO3 35 mmol/L (21-28) Arterial Blood Base Excess 9 mmol/L (-3-3) FiO2 75 Micro RUN DATE: 03/18/19 PAGE 1 RUN TIME: 1909 [facility] [address] [place] [address] Julián Ledesma M.D., Die Cleaner PATIENT: GENESIS TALAVERA ACCT: [id number] LOC: 1 [place] [facility] U: [id number] AGE/SX: 48/M ROOM: 113 RE03/09/[address]: ADELAIDA VALENTINE MD : 1970 BED: 1 DIS: STATUS: ADM IN TLOC: SPEC #: [id number] SHANITA: 03/10/19 STATUS: COMP REQ #: [id number] RECD: 03/10/[address]: WHITNEY HESTER DO SOURCE: BLOOD ENTR: 03/15/[address]: VIDAL MTZ SPDESC: ORDERED: BLD CULT - LC - Procedure Result BLOOD CULTURE LC Final Final report BLD CULT RESULT 1 Final Dermabacter hominis Susceptibility not normally performed on this organism. Performed at: - [facility] [address], [place], [place] [id number] Casey Saw Operator: ALFREDO Cortez MD, Phone: [phone] Objective: Assessment: GPC bacteremia (1 of 4 bottles), 03/10,Dermabacter hominis ,likely contaminant, no further nicho available repeat bc neg so far Acute resp failure, intubated, still requiring high peep Pulmonary infiltrates could be from underlying lung injury from vaping, - GPC on gram stain, 03/11 ,not identified legionella ,strep pneu ,mycoplasma neg Leukocytosis resolved Fever resolved OSMAN CHF HTN Super morbid obesity, BMI 61 Vaping Diarrhea Plan: Plan of Care Cont Zosyn. 03/10 Cont Zyvox off Dapto 03/19 off Levaquin Dose dexamethasone, 03/09 f/u cultures f/u c diff pcr D/w nursing Critically ill Overall prognosis poor LINO TABOR MD Mar 21, 2019 08:18
[2019-03-21] MEDS: PROPOFOL 100 ML IV PRN ×7 (08:34→23:09)
[2019-03-21] MEDS: FUROSEMIDE INJ 100 MG in IV NORMAL SALINE 100ML 100 ML IV PRN ×2 (08:34→17:08)
[2019-03-21] MEDS: CHLORHEXIDINE 0.12% 15 ML MOUTHWASH. MM SCH ×2 (08:54→20:34)
[2019-03-21] MEDS: ASPIRIN CHEWABLE 81 MG TABLET. PO SCH (08:54)
[2019-03-21] MEDS: FAMOTIDINE 20 MG/2 ML VIAL IVP SCH ×2 (08:54→20:34)
--- NOTE | 2019-03-21 11:13 | PDOC ---
PULMONARY PROGRESS NOTES Subjective remains on vent, sedated on fentanyl, versed, and propofol-- nursing reports minimal secretions and no asychrony overnight on 75% FIO2, 13 of PEEP remains critically ill Vitals Vital Signs Date Time Temp Pulse Resp B/P (MAP) Pulse Ox O2 Delivery O2 Flow Rate FiO2 03/21/19 10:00 50 16 181/101 (127) 95 03/21/19 09:10 Ventilator 03/21/19 08:00 97.9 97.9 03/20/19 15:38 15.0 Comments unable to obtain 2/2 vent/sedation Lungs: Other (decrease bs) Cardiovascular: S1, S2 Abdomen: Soft, Non-tender, Other (obese) Extremities: Other (lymphedema) Skin: Warm Labs Laboratory Tests Test 03/19/19 12:08 03/19/19 17:24 03/20/19 00:39 03/20/19 05:30 Glucose (Fingerstick) 121 mg/dL (70-99) 139 mg/dL (70-99) 133 mg/dL (70-99) White Blood Count 7.0 x10^3/uL (4.0-11.0) Red Blood Count 5.04 x10^6/uL (4.30-5.70) Hemoglobin 12.3 g/dL (13.0-17.5) Hematocrit 38.8 % (39.0-53.0) Mean Corpuscular Volume 77 fL (79-100) Mean Corpuscular Hemoglobin 24 pg (25-35) Mean Corpuscular Hemoglobin Concent 32 g/dL (31-37) Red Cell Distribution Width 18.7 % (11.5-14.5) Platelet Count 243 x10^3/uL (140-400) Neutrophils (%) (Auto) 90 % (31-73) Lymphocytes (%) (Auto) 4 % (24-48) Monocytes (%) (Auto) 6 % (0-9) Eosinophils (%) (Auto) 0 % (0-3) Basophils (%) (Auto) 0 % (0-3) Neutrophils # (Auto) 6.3 x10^3/uL (1.8-7.7) Lymphocytes # (Auto) 0.3 x10^3/uL (1.0-4.8) Monocytes # (Auto) 0.4 x10^3/uL (0.0-1.1) Eosinophils # (Auto) 0.0 x10^3/uL (0.0-0.7) Basophils # (Auto) 0.0 x10^3/uL (0.0-0.2) Sodium Level 142 mmol/L (136-145) Potassium Level 4.2 mmol/L (3.5-5.1) Chloride Level 102 mmol/L (98-107) Carbon Dioxide Level 35 mmol/L (21-32) Anion Gap 5 (6-14) Blood Urea Nitrogen 52 mg/dL (8-26) Creatinine 1.3 mg/dL (0.7-1.3) Estimated GFR (Cockcroft-Gault) 71.3 Glucose Level 135 mg/dL (70-99) Calcium Level 9.4 mg/dL (8.5-10.1) Test 03/20/19 06:09 03/20/19 07:45 03/20/19 12:39 03/20/19 17:24 Glucose (Fingerstick) 121 mg/dL (70-99) 155 mg/dL (70-99) 125 mg/dL (70-99) O2 Saturation 95 % (92-99) Arterial Blood pH 7.37 (7.35-7.45) Arterial Blood pCO2 at Patient Temp 62 mmHg (35-46) Arterial Blood pO2 at Patient Temp 79 mmHg (75-108) Arterial Blood HCO3 35 mmol/L (21-28) Arterial Blood Base Excess 8 mmol/L (-3-3) Test 03/20/19 23:57 03/21/19 05:15 03/21/19 05:51 03/21/19 08:10 Glucose (Fingerstick) 138 mg/dL (70-99) 134 mg/dL (70-99) White Blood Count 7.8 x10^3/uL (4.0-11.0) Red Blood Count 5.37 x10^6/uL (4.30-5.70) Hemoglobin 13.2 g/dL (13.0-17.5) Hematocrit 41.6 % (39.0-53.0) Mean Corpuscular Volume 77 fL (79-100) Mean Corpuscular Hemoglobin 25 pg (25-35) Mean Corpuscular Hemoglobin Concent 32 g/dL (31-37) Red Cell Distribution Width 18.3 % (11.5-14.5) Platelet Count 254 x10^3/uL (140-400) Neutrophils (%) (Auto) 91 % (31-73) Lymphocytes (%) (Auto) 4 % (24-48) Monocytes (%) (Auto) 5 % (0-9) Eosinophils (%) (Auto) 0 % (0-3) Basophils (%) (Auto) 0 % (0-3) Neutrophils # (Auto) 7.1 x10^3/uL (1.8-7.7) Lymphocytes # (Auto) 0.3 x10^3/uL (1.0-4.8) Monocytes # (Auto) 0.4 x10^3/uL (0.0-1.1) Eosinophils # (Auto) 0.0 x10^3/uL (0.0-0.7) Basophils # (Auto) 0.0 x10^3/uL (0.0-0.2) Sodium Level 144 mmol/L (136-145) Potassium Level 4.3 mmol/L (3.5-5.1) Chloride Level 104 mmol/L (98-107) Carbon Dioxide Level 38 mmol/L (21-32) Anion Gap 2 (6-14) Blood Urea Nitrogen 54 mg/dL (8-26) Creatinine 1.3 mg/dL (0.7-1.3) Estimated GFR (Cockcroft-Gault) 71.3 Glucose Level 136 mg/dL (70-99) Calcium Level 9.5 mg/dL (8.5-10.1) Phosphorus Level 4.4 mg/dL (2.6-4.7) Magnesium Level 2.2 mg/dL (1.8-2.4) O2 Saturation 92 % (92-99) Arterial Blood pH 7.44 (7.35-7.45) Arterial Blood pCO2 at Patient Temp 53 mmHg (35-46) Arterial Blood pO2 at Patient Temp 63 mmHg (75-108) Arterial Blood HCO3 35 mmol/L (21-28) Arterial Blood Base Excess 9 mmol/L (-3-3) FiO2 75 Laboratory Tests Test 03/20/19 12:39 03/20/19 17:24 03/20/19 23:57 03/21/19 05:15 Glucose (Fingerstick) 155 mg/dL (70-99) 125 mg/dL (70-99) 138 mg/dL (70-99) White Blood Count 7.8 x10^3/uL (4.0-11.0) Red Blood Count 5.37 x10^6/uL (4.30-5.70) Hemoglobin 13.2 g/dL (13.0-17.5) Hematocrit 41.6 % (39.0-53.0) Mean Corpuscular Volume 77 fL (79-100) Mean Corpuscular Hemoglobin 25 pg (25-35) Mean Corpuscular Hemoglobin Concent 32 g/dL (31-37) Red Cell Distribution Width 18.3 % (11.5-14.5) Platelet Count 254 x10^3/uL (140-400) Neutrophils (%) (Auto) 91 % (31-73) Lymphocytes (%) (Auto) 4 % (24-48) Monocytes (%) (Auto) 5 % (0-9) Eosinophils (%) (Auto) 0 % (0-3) Basophils (%) (Auto) 0 % (0-3) Neutrophils # (Auto) 7.1 x10^3/uL (1.8-7.7) Lymphocytes # (Auto) 0.3 x10^3/uL (1.0-4.8) Monocytes # (Auto) 0.4 x10^3/uL (0.0-1.1) Eosinophils # (Auto) 0.0 x10^3/uL (0.0-0.7) Basophils # (Auto) 0.0 x10^3/uL (0.0-0.2) Sodium Level 144 mmol/L (136-145) Potassium Level 4.3 mmol/L (3.5-5.1) Chloride Level 104 mmol/L (98-107) Carbon Dioxide Level 38 mmol/L (21-32) Anion Gap 2 (6-14) Blood Urea Nitrogen 54 mg/dL (8-26) Creatinine 1.3 mg/dL (0.7-1.3) Estimated GFR (Cockcroft-Gault) 71.3 Glucose Level 136 mg/dL (70-99) Calcium Level 9.5 mg/dL (8.5-10.1) Phosphorus Level 4.4 mg/dL (2.6-4.7) Magnesium Level 2.2 mg/dL (1.8-2.4) Test 03/21/19 05:51 03/21/19 08:10 Glucose (Fingerstick) 134 mg/dL (70-99) O2 Saturation 92 % (92-99) Arterial Blood pH 7.44 (7.35-7.45) Arterial Blood pCO2 at Patient Temp 53 mmHg (35-46) Arterial Blood pO2 at Patient Temp 63 mmHg (75-108) Arterial Blood HCO3 35 mmol/L (21-28) Arterial Blood Base Excess 9 mmol/L (-3-3) FiO2 75 Medications Active Scripts Medications Dose Route/Sig Max Daily Dose Days Date Category Hydrochlorothiazide Tablet (Hydrochlorothiazide) 25 Mg Tablet 25 Mg PO DAILY 03/10/19 Reported Norvasc (Amlodipine Besylate) 5 Mg Tablet 1 Tab PO DAILY 01/12/19 Rx Lisinopril 5 Mg Tablet 1 Tab PO DAILY 01/12/19 Rx Impression . 1. Acute hypercarbic/hypoxic respiratory Failure 2/2 ARDS/Pulm.edema. CTA chest (-) PE, DPLX (-) 2.CT chest reviewed. Developed fever 03/16 and worsening left lung infiltrate,? superimposed VAP, check all cultures. Abx per ID 3.Hypertension (uncontrolled) 4. OSMAN 5. Pulm. HTN PA pressure 55 Normal EF 6. Possible non-ST myocardial infarction. 7. HX. of tobacco use 8. Morbid obesity Plan . 1. Continue with present assist control mode. wean PEEP to 13,%FIO2 down to 75%. titrate fi02 to keep sat 92%, make necessary adjustment based on followup ABGs. cont vent support. ok with permissive hypercapnia NO SBT 2. high dose steroids ,initiated 03/16 3. No acute bleed on CT head. 4. Abx per ID, check all new cultures 5. Monitor fever and white cell count.overall no further fever 6. Continue bronchodilators. 7. Heparin for DVT prophylaxis 8. diuresis.d/w renal. lasix drip 9. Remains critically ill, will need tracheostomy and LTACH Family requests DNR.Continue aggressive supportive care 10. restart home B/P medications , PRN hydralazine discussed with RN and RT. We will follow along with you. MARIO ALLEN MD Mar 21, 2019 11:13
--- NOTE | 2019-03-21 11:40 | PDOC ---
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 [employer] PROFESSOR regarding starting patient on home medications for HTN 9�13�2019 Patient seen and examined in the ICU He is still ventilated AC/16/600/80% 14 PEEP 03/19/19 Pt seen and examined in ICU on vent (vent settings: AC/16/600/85% 14 PEEP) Pt responsive to voice In mitts for pt safety Pt sedated with versed, fentanyl, and precedex Rectal tube intact Fontana to BSD Has OG tube to LIS; ET tube placed JUANA RN 03/18/19 Pt seen and examined in ICU on vent (vent settings: AC/16/00/100% 14 PEEP) Pt sedated with versed, fentanyl, and precedex Rectal tube placed Fontana to BSD Has OG tube to LIS; ET tube placed JUANA RN Chart reviewed 03/17/19 Pt seen and examined in ICU on vent (AC/16/600/100 14peep) Pt has rectal tube and fontana to BSD Sedated with versed, fentanyl, and precedex Pt has ET tube and OG tube to LIS JUANA RN DW protective services case worker Chart reviewed Vitals/I&O Vitals/I&O: Vital Signs Date Time Temp Pulse Resp B/P (MAP) Pulse Ox O2 Delivery O2 Flow Rate FiO2 03/21/19 11:32 94 Ventilator 03/21/19 11:00 55 16 166/80 (108) 03/21/19 08:00 97.9 97.9 03/20/19 15:38 15.0 I & O 03/20/19 03/20/19 03/21/19 14:59 22:59 06:59 Intake Total 750 ml 1834 ml 696 ml Output Total 1420 ml 2385 ml 3295 ml Balance -670 ml -551 ml -2599 ml Physical Exam Physical Exam: GENERAL: Orally intubated/sedated HEENT: Pupils equal, small. OGT/ETT NECK: Supple LUNGS: dec bs at bases HEART: S1 and S2, regular. ABDOMEN: Obese, soft, +BS : Fontana in place fecal tube in place EXTREMITIES: Trace edema - MITTS SKIN: Chronic stasis dermatitis on the lower extremity. NEUROLOGIC: Sedated RIJ clean General: No acute distress, Other (short neck , Mallampati 4 ON VENT) Heart: Regular rate (SR), Other (distante heart sounds) Lungs: Other (decrease bs) Abdomen: Normal bowel sounds, Soft, No tenderness, No hepatosplenomegaly, No masses Extremities: No clubbing, No cyanosis, No edema, Normal pulses, No tenderness/swelling Skin: No rashes, No breakdown, No significant lesion Labs Labs: Laboratory Tests Test 03/20/19 12:39 03/20/19 17:24 03/20/19 23:57 03/21/19 05:15 Glucose (Fingerstick) 155 mg/dL (70-99) 125 mg/dL (70-99) 138 mg/dL (70-99) White Blood Count 7.8 x10^3/uL (4.0-11.0) Red Blood Count 5.37 x10^6/uL (4.30-5.70) Hemoglobin 13.2 g/dL (13.0-17.5) Hematocrit 41.6 % (39.0-53.0) Mean Corpuscular Volume 77 fL (79-100) Mean Corpuscular Hemoglobin 25 pg (25-35) Mean Corpuscular Hemoglobin Concent 32 g/dL (31-37) Red Cell Distribution Width 18.3 % (11.5-14.5) Platelet Count 254 x10^3/uL (140-400) Neutrophils (%) (Auto) 91 % (31-73) Lymphocytes (%) (Auto) 4 % (24-48) Monocytes (%) (Auto) 5 % (0-9) Eosinophils (%) (Auto) 0 % (0-3) Basophils (%) (Auto) 0 % (0-3) Neutrophils # (Auto) 7.1 x10^3/uL (1.8-7.7) Lymphocytes # (Auto) 0.3 x10^3/uL (1.0-4.8) Monocytes # (Auto) 0.4 x10^3/uL (0.0-1.1) Eosinophils # (Auto) 0.0 x10^3/uL (0.0-0.7) Basophils # (Auto) 0.0 x10^3/uL (0.0-0.2) Sodium Level 144 mmol/L (136-145) Potassium Level 4.3 mmol/L (3.5-5.1) Chloride Level 104 mmol/L (98-107) Carbon Dioxide Level 38 mmol/L (21-32) Anion Gap 2 (6-14) Blood Urea Nitrogen 54 mg/dL (8-26) Creatinine 1.3 mg/dL (0.7-1.3) Estimated GFR (Cockcroft-Gault) 71.3 Glucose Level 136 mg/dL (70-99) Calcium Level 9.5 mg/dL (8.5-10.1) Phosphorus Level 4.4 mg/dL (2.6-4.7) Magnesium Level 2.2 mg/dL (1.8-2.4) Test 03/21/19 05:51 03/21/19 08:10 Glucose (Fingerstick) 134 mg/dL (70-99) O2 Saturation 92 % (92-99) Arterial Blood pH 7.44 (7.35-7.45) Arterial Blood pCO2 at Patient Temp 53 mmHg (35-46) Arterial Blood pO2 at Patient Temp 63 mmHg (75-108) Arterial Blood HCO3 35 mmol/L (21-28) Arterial Blood Base Excess 9 mmol/L (-3-3) FiO2 75 Review of Systems Review of Systems: co weakness co SOB Assessment and Plan Assessmemt and Plan Problems Medical Problems: (1) CHF exacerbation Status: Acute (2) COPD exacerbation Status: Acute (3) Hypoxia Status: Acute (4) NSTEMI (non-ST elevated myocardial infarction) Status: Acute (5) Respiratory failure Status: Acute Assessment Acute Hypercapnic Respiratory Failure/ARDS due to vaping Pulmonary Edema Bilateral Lung Infiltrates Obstructive sleep apnea OSMAN Increased Troponin Morbid Obesity Pulmonary HTN Tobacco use Plan ICU monitoring Vent weaning Monitor rectal tube Feed with OG PPN Continue IV Abx (zyvox) Sedated with Versed, Fentanyl, and Propofol Font[place] to BSD Home Meds Lasix drip Prognosis guarded Full Code Appreciate subspecialty input Total time 33 min Comment Review of Relevant I have reviewed the following items peter (where applicable) has been applied. TRICIA NAVA III DO Mar 21, 2019 11:40
[2019-03-21] MEDS: amLODIPine BESYLATE 10 MG TABLET PO SCH (11:55)
[2019-03-21] MEDS: LISINOPRIL 5 MG TABLET. PO SCH (11:56)
--- NOTE | 2019-03-21 12:50 | PDOC ---
Renal-Progress Notes Subjective Notes Notes REMAINS INTUBATED, APPEARS TO OPEN EYES History of Present Illness Hx of present illness STABLE Vitals Vitals Vital Signs Date Time Temp Pulse Resp B/P (MAP) Pulse Ox O2 Delivery O2 Flow Rate FiO2 03/21/19 12:00 Mechanical Ventilator 03/21/19 12:00 98.2 77 21 185/101 (129) 97 98.2 03/20/19 15:38 15.0 Weight Weight [ ] I.O. Intake and Output Intake and Output 03/21/19 06:59 Intake Total 3280 ml Output Total 7100 ml Balance -3820 ml IV Total 1867 ml Tube Feeding 1013 ml Other 400 ml Output Urine Total 5580 ml Stool Total 1500 ml Gastric Drainage Total 20 ml Labs Labs Laboratory Tests Test 03/20/19 17:24 03/20/19 23:57 03/21/19 05:15 03/21/19 05:51 Glucose (Fingerstick) 125 mg/dL (70-99) 138 mg/dL (70-99) 134 mg/dL (70-99) White Blood Count 7.8 x10^3/uL (4.0-11.0) Red Blood Count 5.37 x10^6/uL (4.30-5.70) Hemoglobin 13.2 g/dL (13.0-17.5) Hematocrit 41.6 % (39.0-53.0) Mean Corpuscular Volume 77 fL (79-100) Mean Corpuscular Hemoglobin 25 pg (25-35) Mean Corpuscular Hemoglobin Concent 32 g/dL (31-37) Red Cell Distribution Width 18.3 % (11.5-14.5) Platelet Count 254 x10^3/uL (140-400) Neutrophils (%) (Auto) 91 % (31-73) Lymphocytes (%) (Auto) 4 % (24-48) Monocytes (%) (Auto) 5 % (0-9) Eosinophils (%) (Auto) 0 % (0-3) Basophils (%) (Auto) 0 % (0-3) Neutrophils # (Auto) 7.1 x10^3/uL (1.8-7.7) Lymphocytes # (Auto) 0.3 x10^3/uL (1.0-4.8) Monocytes # (Auto) 0.4 x10^3/uL (0.0-1.1) Eosinophils # (Auto) 0.0 x10^3/uL (0.0-0.7) Basophils # (Auto) 0.0 x10^3/uL (0.0-0.2) Sodium Level 144 mmol/L (136-145) Potassium Level 4.3 mmol/L (3.5-5.1) Chloride Level 104 mmol/L (98-107) Carbon Dioxide Level 38 mmol/L (21-32) Anion Gap 2 (6-14) Blood Urea Nitrogen 54 mg/dL (8-26) Creatinine 1.3 mg/dL (0.7-1.3) Estimated GFR (Cockcroft-Gault) 71.3 Glucose Level 136 mg/dL (70-99) Calcium Level 9.5 mg/dL (8.5-10.1) Phosphorus Level 4.4 mg/dL (2.6-4.7) Magnesium Level 2.2 mg/dL (1.8-2.4) Test 03/21/19 08:10 O2 Saturation 92 % (92-99) Arterial Blood pH 7.44 (7.35-7.45) Arterial Blood pCO2 at Patient Temp 53 mmHg (35-46) Arterial Blood pO2 at Patient Temp 63 mmHg (75-108) Arterial Blood HCO3 35 mmol/L (21-28) Arterial Blood Base Excess 9 mmol/L (-3-3) FiO2 75 Micro Micro Microbiology 03/16/19 - Final, Resulted 03/16/19 - Final, Resulted 03/16/19 - Preliminary, Resulted 03/16/19 - Preliminary, Resulted 03/16/19 - Preliminary, Resulted 03/16/19 - Preliminary, Resulted 03/16/19 Gram Stain Evaluation - Final, Resulted 03/16/19 Sputum Culture - Final, Resulted 03/16/19 Sputum Result 1 - Final, Resulted 03/16/19 Blood Culture - Final, Complete NO GROWTH AFTER 5 DAYS 03/09/19 Urine Culture - Final, Complete 03/09/19 Urine Culture Result 1 (WIL) - Final, Complete Review of Systems Constitutional: yes: unresponsive Physical Exam General Appearance: other (SEDATED) Skin: warm Respiratory: decreased breath sounds Heart: S1S2 Abdomen: soft, bowel sounds present Genitourinary: bladder flat Extremities: pulses present Neurology: other (SEDATED) Musculoskeletal: Other (obese) Assessment Assessment IMP OSMAN RESOLVED CKD STAGE 2 WITH CR OF 1.2 ACUTE HYPERCAPNIC RESP [id number] NEEDING FIO2 80% HX OF TOBACCO AND VAPING MORBID OBESITY PLAN SUPPORTIVE CARE ANTIBIOTICS CONT LASIX GTT CONT TF WILL FOLLOW MYESHA ACEVEDO MD Mar 21, 2019 12:50
[2019-03-22] VITALS (24 sets, daily range): BP systolic 80–178; BP diastolic 43–101
[2019-03-22] MEDS: PIPERACILLIN/TAZOBACTAM 3.375 GM in IV NORMAL SALINE 50ML 50 ML IV SCH ×4 (00:08→17:04)
[2019-03-22] MEDS: PROPOFOL 100 ML IV PRN ×10 (01:40→22:30)
[2019-03-22] MEDS: hydrALAZINE 20 MG/ML VIAL. IVP PRN ×2 (02:09→06:13)
[2019-03-22] MEDS: MIDAZOLAM 100mg/100ml NS BAG 100 ML IV PRN ×2 (02:13→13:29)
[2019-03-22] MEDS: FUROSEMIDE INJ 100 MG in IV NORMAL SALINE 100ML 100 ML IV PRN (05:05)
[2019-03-22 05:30] LABS: BASO % 0 % (0-3); EOS % 0 % (0-3); HEMATOCRIT 42.1 % (39.0-53.0); HEMOGLOBIN 13.1 g/dL (13.0-17.5); LYMPH # 0.3 x10^3/uL (1.0-4.8); LYMPH % 3 % (24-48); MEAN CORPUSCULAR HEMOGLOBIN 24 pg (25-35); MEAN CORPUSCULAR HGB CONC 31 g/dL (31-37); MEAN CORPUSCULAR VOLUME 77 fL (79-100); MONO # 0.4 x10^3/uL (0.0-1.1); MONO % 5 % (0-9); NEUT # 8.2 x10^3/uL (1.8-7.7); NEUT % 92 % (31-73); PLATELET COUNT 282 x10^3/uL (140-400); RED BLOOD COUNT 5.47 x10^6/uL (4.30-5.70); RED CELL DISTRIBUTION WIDTH 18.1 % (11.5-14.5)
[2019-03-22] MEDS: methylPREDNISolone SOD SUCC PF 125 MG/2 ML VIAL. IV SCH ×3 (05:31→21:37)
[2019-03-22] MEDS: HEPARIN for SUB-Q USE 5,000 UNIT/ML VIAL. SQ SCH ×3 (05:32→21:38)
[2019-03-22] MEDS: INSULIN LISPRO 300 UNITS/3 ML VIAL. SQ SCH ×4 (05:39→17:38)
[2019-03-22 05:47] LABS: CALCIUM 9.5 mg/dL (8.5-10.1); CREATININE 1.4 mg/dL (0.7-1.3); GFR 65.4; POTASSIUM 3.7 mmol/L (3.5-5.1)
[2019-03-22 05:51] LABS: MAGNESIUM 2.1 mg/dL (1.8-2.4); PHOSPHORUS 4.4 mg/dL (2.6-4.7)
[2019-03-22] MEDS: IPRATRPIUM/ALBUTEROL 0.5/2.5MG 3 ML NEBU. NEB SCH ×4 (07:23→20:37)
[2019-03-22 08:10] LABS: BASE EXCESS ABG 10 mmol/L (-3-3); HCO3 ABG 35 mmol/L (21-28); PCO2 ABG 49 mmHg (35-46); PO2 ABG 65 mmHg (75-108); SAT O2 ABG 94 % (92-99)
[2019-03-22] MEDS: ASPIRIN CHEWABLE 81 MG TABLET. PO SCH (08:34)
[2019-03-22] MEDS: LISINOPRIL 5 MG TABLET. PO SCH (08:34)
[2019-03-22] MEDS: CHLORHEXIDINE 0.12% 15 ML MOUTHWASH. MM SCH ×2 (08:34→21:36)
--- NOTE | 2019-03-22 08:34 | PDOC ---
Infectious Disease Note Subjective: Subjective Orally intubated/sedated no fevers remains on high fio2 and peep d/w RN ROS: ROS intubated Vital Signs: Vital Signs Vital Signs Date Time Temp Pulse Resp B/P (MAP) Pulse Ox O2 Delivery O2 Flow Rate FiO2 03/22/19 08:23 97 Ventilator 03/22/19 07:00 92 20 178/91 (120) 03/22/19 04:00 98.2 98.2 Physical Exam: PHYSICAL EXAM GENERAL: Orally intubated/sedated, opens eyes transiently to verbal stimuli HEENT: Pupils equal, small. OGT/ETT NECK: Supple LUNGS: dec bs at bases HEART: S1 and S2, regular. ABDOMEN: Obese, soft, +BS : Ramos in place fecal tube in place EXTREMITIES: Trace edema - MITTS SKIN: Chronic stasis dermatitis on the lower extremity. NEUROLOGIC: Sedated RIJ clean Medications: Inpatient Meds: Current Medications Medications (Trade) Dose Ordered Sig/Stefanie Start Time Stop Time Status Last Admin Dose Admin Albuterol/ Ipratropium (Duoneb) 3 ml RTQID 03/10/19 12:00 03/22/19 07:23 3 ML Amlodipine Besylate (Norvasc) 10 mg DAILY 03/21/19 11:30 03/21/19 11:56 10 MG Artificial Tears (Artificial Tears) 1 drop PRN Q1HR PRN 03/10/19 07:30 03/13/19 13:32 1 DROP Aspirin (Aspirin Rectal Supp) 300 mg 1X ONCE 03/10/19 00:00 03/10/19 00:01 DC 03/10/19 03:42 300 MG Aspirin (Amanda Aspirin) 325 mg 1X ONCE 03/10/19 10:30 03/10/19 10:31 DC 03/10/19 10:55 325 MG Aspirin (Children'S Aspirin) 81 mg DAILYWBKFT 03/11/19 08:00 03/21/19 08:55 81 MG Atropine Sulfate (ATROPINE 0.5mg SYRINGE) 0.5 mg PRN Q5MIN PRN 03/12/19 20:30 Bumetanide (Bumex) 1 mg 1X ONCE 03/10/19 00:00 03/10/19 00:01 DC 03/10/19 00:21 1 MG Chlorhexidine Gluconate (Peridex) 15 ml BID 03/10/19 09:00 03/21/19 20:37 15 ML Clonidine HCl (Catapres) 0.1 mg 1X ONCE 03/10/19 01:30 03/10/19 01:34 DC Daptomycin 1320 mg/Sodium Chloride 50 ml @ 100 mls/hr ONCE ONCE 03/15/19 13:00 03/16/19 09:33 DC 03/15/19 13:53 100 MLS/HR Daptomycin 1340 mg/Sodium Chloride 50 ml @ 100 mls/hr Q24H 03/16/19 09:00 Cancel Daptomycin 830 mg/ Sodium Chloride 50 ml @ 100 mls/hr Q24H 03/16/19 14:00 03/19/19 07:41 DC 03/18/19 15:03 100 MLS/HR Dexamethasone Sodium Phosphate (Decadron) 10 mg 1X ONCE 03/09/19 22:00 03/09/19 22:01 DC 03/09/19 22:29 10 MG Dexmedetomidine HCl 400 mcg/ Sodium Chloride 100 ml @ 0 mls/hr CONT PRN 03/12/19 20:30 03/21/19 04:33 21.7 MLS/HR Dextrose 250 ml PRN Q15MIN PRN 03/12/19 16:15 Dextrose (Dextrose 50%-Water Syringe) 12.5 gm PRN Q15MIN PRN 03/12/19 16:15 Etomidate (Amidate) 20 mg STK-MED ONCE 03/10/19 05:15 03/10/19 05:16 DC Famotidine (Pepcid Vial) 20 mg BID 03/10/19 09:00 UNV Fentanyl Citrate (Fentanyl 2ml Vial) 50 mcg PRN Q1HR PRN 03/10/19 07:30 Fentanyl Citrate (Fentanyl 600 Mcg/30 ml PILE [employer]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) 600 mcg STK-MED ONCE 03/13/19 17:00 03/17/19 11:02 DC Furosemide (Lasix) 40 mg 1X ONCE 03/16/19 16:30 03/16/19 16:31 DC 03/16/19 16:46 40 MG Furosemide 100 mg/ Sodium Chloride 100 ml @ 10 mls/hr CONT PRN 03/21/19 16:00 03/22/19 05:05 10 MLS/HR Heparin Sodium (Porcine) (Heparin Sodium) 5,000 unit Q8HRS 03/11/19 22:00 03/22/19 05:32 5,000 UNIT Heparin Sodium/ Dextrose 500 ml @ 0 mls/hr CONT PRN 03/09/19 23:45 03/11/19 16:13 DC 03/10/19 23:34 1,300 MLS/HR Hydralazine HCl (Apresoline Inj) 10 mg PRN Q4HRS PRN 03/11/19 13:00 03/22/19 06:13 10 MG Hydrochlorothiazide (Hydrodiuril) 25 mg DAILY 03/10/19 09:00 03/10/19 10:04 DC 03/10/19 09:13 25 MG Info (CONTRAST GIVEN -- Rx MONITORING) 1 each PRN DAILY PRN 03/10/19 11:45 03/12/19 11:44 DC Insulin Human Lispro (HumaLOG) 0-9 UNITS Q6HRS 03/12/19 18:00 03/18/19 18:35 4 UNITS Iohexol (Omnipaque 350 Mg/ml) 100 ml 1X ONCE 03/10/19 11:45 03/10/19 11:47 DC 03/10/19 14:05 100 ML Levofloxacin/ Dextrose 100 ml @ 100 mls/hr Q24H 03/10/19 09:00 03/14/19 09:25 DC 03/14/19 08:10 100 MLS/HR Levofloxacin/ Dextrose (Levaquin Per Pharmacy) 1 each PRN DAILY PRN 03/10/19 08:15 03/14/19 09:25 DC Linezolid/Dextrose 300 ml @ 300 mls/hr Q12HR 03/11/19 21:00 03/21/19 20:37 300 MLS/HR Lisinopril (Prinivil) 5 mg DAILY 03/21/19 11:30 03/21/19 11:56 5 MG Lorazepam (Ativan Inj) 2 mg PRN Q1HR PRN 03/19/19 10:45 03/20/19 17:11 2 MG Magnesium Sulfate/ Dextrose 100 ml @ 50 mls/hr DAILY 03/11/19 09:00 03/14/19 08:59 DC 03/11/19 09:28 50 MLS/HR Methylprednisolone Sodium Succinate (SOLU-Medrol 125MG VIAL) 100 mg Q8HRS 03/16/19 12:00 03/22/19 05:32 100 MG Midazolam HCl 100 ml @ 0 mls/hr CONT PRN 03/10/19 07:30 03/22/19 02:17 10 MLS/HR Midazolam HCl (Versed) 5 mg 1X ONCE 03/10/19 01:30 03/10/19 01:34 DC 03/10/19 01:28 5 MG Morphine Sulfate (Morphine Sulfate) 4 mg PRN Q1HR PRN 03/10/19 07:30 Multi-Ingred Cream/Lotion/Oil/ Oint (Artificial Tears Eye Ointment) 1 zuri PRN Q1HR PRN 03/12/19 09:00 Norepinephrine Bitartrate 250 ml @ 27.837 mls/ hr CONT PRN 03/11/19 13:00 03/13/19 04:13 1.392 MLS/HR Perflutren Protein Type A Microsphe (Optison) 0.66 mg 1X ONCE 03/13/19 09:15 03/13/19 09:16 DC 03/13/19 09:40 0.66 MG Piperacillin Sod/ Tazobactam Sod (Zosyn Per Pharmacy) 1 each PRN DAILY PRN 03/10/19 11:45 Piperacillin Sod/ Tazobactam Sod 3.375 gm/Sodium Chloride 50 ml @ 100 mls/hr Q6HRS 03/10/19 12:30 03/22/19 05:32 100 MLS/HR Piperacillin Sod/ Tazobactam Sod 4.5 gm/Sodium Chloride 100 ml @ 200 mls/hr 1X ONCE 03/10/19 00:30 03/10/19 00:59 DC 03/10/19 05:19 200 MLS/HR Potassium Chloride/Water 50 ml @ 50 mls/hr 1X ONCE 03/12/19 10:30 03/12/19 11:31 DC Potassium Phosphate 27.2 mmol/Sodium Chloride 259.0667 ml @ 64.753 m... 1X ONCE 03/11/19 14:00 03/11/19 18:00 DC Propofol 100 ml @ 0 mls/hr CONT PRN 03/10/19 07:30 03/22/19 07:03 49.5 MLS/HR Rocuronium [place] (Zemuron) 50 mg STK-MED ONCE 03/10/19 05:15 9/3/19 05:15 DC Sodium Chloride 500 ml @ 500 mls/hr 1X PRN PRN 03/12/19 20:30 03/12/19 23:22 500 MLS/HR Vancomycin HCl (Vanco Per Pharmacy) 1 each PRN DAILY PRN 03/10/19 11:45 03/11/19 13:57 DC 03/11/19 09:42 1 EACH Vancomycin HCl (Vancomycin Trough Level) 1 each 1X ONCE 03/12/19 12:30 03/12/19 12:31 Cancel Vancomycin HCl 1.75 gm/Sodium Chloride 500 ml @ 250 mls/hr Q12H 03/11/19 01:00 03/11/19 13:57 DC 03/11/19 12:43 250 MLS/HR Vancomycin HCl 2 gm/Sodium Chloride 500 ml @ 250 mls/hr 1X ONCE 03/10/19 13:00 03/10/19 14:59 DC 03/10/19 12:41 250 MLS/HR Vecuronium [place] (Norcuron Bolus) 10 mg PRN Q1HR PRN 03/13/19 07:30 Labs: Lab Laboratory Tests Test 03/21/19 11:58 03/21/19 18:03 03/22/19 00:07 03/22/19 05:00 Glucose (Fingerstick) 133 mg/dL (70-99) 130 mg/dL (70-99) 143 mg/dL (70-99) White Blood Count 9.0 x10^3/uL (4.0-11.0) Red Blood Count 5.47 x10^6/uL (4.30-5.70) Hemoglobin 13.1 g/dL (13.0-17.5) Hematocrit 42.1 % (39.0-53.0) Mean Corpuscular Volume 77 fL (79-100) Mean Corpuscular Hemoglobin 24 pg (25-35) Mean Corpuscular Hemoglobin Concent 31 g/dL (31-37) Red Cell Distribution Width 18.1 % (11.5-14.5) Platelet Count 282 x10^3/uL (140-400) Neutrophils (%) (Auto) 92 % (31-73) Lymphocytes (%) (Auto) 3 % (24-48) Monocytes (%) (Auto) 5 % (0-9) Eosinophils (%) (Auto) 0 % (0-3) Basophils (%) (Auto) 0 % (0-3) Neutrophils # (Auto) 8.2 x10^3/uL (1.8-7.7) Lymphocytes # (Auto) 0.3 x10^3/uL (1.0-4.8) Monocytes # (Auto) 0.4 x10^3/uL (0.0-1.1) Eosinophils # (Auto) 0.0 x10^3/uL (0.0-0.7) Basophils # (Auto) 0.0 x10^3/uL (0.0-0.2) Sodium Level 144 mmol/L (136-145) Potassium Level 3.7 mmol/L (3.5-5.1) Chloride Level 102 mmol/L (98-107) Carbon Dioxide Level 38 mmol/L (21-32) Anion Gap 4 (6-14) Blood Urea Nitrogen 60 mg/dL (8-26) Creatinine 1.4 mg/dL (0.7-1.3) Estimated GFR (Cockcroft-Gault) 65.4 Glucose Level 137 mg/dL (70-99) Calcium Level 9.5 mg/dL (8.5-10.1) Phosphorus Level 4.4 mg/dL (2.6-4.7) Magnesium Level 2.1 mg/dL (1.8-2.4) Test 03/22/19 05:21 Glucose (Fingerstick) 135 mg/dL (70-99) Micro RUN DATE: 03/18/19 PAGE 1 RUN TIME: 1909 [facility] [address] [place] [address] Julián Ledesma M.D., [employer] PATIENT: GENESIS TALAVERA ACCT: [id number] LOC: 1 [place] ICU U: [id number] AGE/SX: 48/M ROOM: 113 RE03/09/[address]: ADELAIDA VALENTINE MD : 1970 BED: 1 DIS: STATUS: ADM IN TLOC: SPEC #: [id number] SHANITA: 03/10/19 STATUS: COMP REQ #: [id number] RECD: 03/10/[address]: WHITNEY HESTER DO SOURCE: BLOOD ENTR: 03/15/[address]: VIDAL MTZ SPDESC: ORDERED: BLD CULT - LC Procedure Result -- BLOOD CULTURE LC Final Final report BLD CULT RESULT 1 Final Dermabacter hominis Susceptibility not normally performed on this organism. Performed at: - [facility], [place], [place] [id number] Director Of Community Education: ALFREDO Cortez MD, Phone: [phone] Objective: Assessment: GPC bacteremia (1 of 4 bottles), 03/10, Dermabacter hominis ,likely contaminant, no further nicho available repeat bc neg so far Acute resp failure, intubated, still requiring high peep Pulmonary infiltrates could be from underlying lung injury from vaping, - GPC on gram stain, 03/11 ,not identified legionella ,strep pneu ,mycoplasma neg Leukocytosis resolved Fever resolved OSMAN CHF HTN Super morbid obesity, BMI 61 Vaping Diarrhea Plan: Plan of Care Cont Zosyn. 03/10 Cont Zyvox DC Rt IJ, f/u cultures D/w nursing Critically ill Overall prognosis poor LINO TABOR MD Mar 22, 2019 08:34
[2019-03-22] MEDS: amLODIPine BESYLATE 10 MG TABLET PO SCH (08:35)
[2019-03-22] MEDS: FAMOTIDINE 20 MG/2 ML VIAL IVP SCH ×2 (08:36→21:37)
[2019-03-22 08:46] LABS: FIO2 ABG 80
--- NOTE | 2019-03-22 09:47 | RAD ---
CHEST AP ONLY History: Intubation Comparison: March 21, 2019 Findings: Single view of the chest is submitted. There is endotracheal tube terminating about 5 cm from mariely. There is enteric catheter coursing into the region of stomach. There is right internal jugular venous catheter with tip in the superior vena cava. Pericardial cardiac silhouette is again enlarged. There is airspace and interstitial opacity with basilar predominance bilaterally unchanged, also perihilar opacity bilaterally not convincingly changed. There are again probable small pleural effusions bilaterally. No pneumothorax is identified. Impression: 1. Radiographic findings are similar, persistent airspace and interstitial opacity with basilar predominance, also suspected small bilateral pleural effusions. There are support catheters and tubes as stated. Electronically signed by: Goran Lucio MD (03/22/2019 9:44 AM) [facility]
--- NOTE | 2019-03-22 10:15 | PDOC ---
PULMONARY PROGRESS NOTES Subjective remains on vent, sedated on fentanyl, versed, and propofol-- nursing reports increase in oral secretions and no asychrony overnight on 80% FIO2, 13 of PEEP open his eyes today neuro consulted overnight for possible seizure activity remains critically ill Vitals Vital Signs Date Time Temp Pulse Resp B/P (MAP) Pulse Ox O2 Delivery O2 Flow Rate FiO2 03/22/19 10:00 83 16 129/69 (89) 97 03/22/19 09:29 15.0 03/22/19 08:44 Ventilator 03/22/19 08:00 98.1 98.1 Comments unable to obtain 2/2 vent/sedation Lungs: Other (decrease bs) Cardiovascular: S1, S2 Abdomen: Soft, Non-tender, Other (obese) Extremities: Other (lymphedema) Skin: Warm Labs Laboratory Tests Test 03/20/19 12:39 03/20/19 17:24 03/20/19 23:57 03/21/19 05:15 Glucose (Fingerstick) 155 mg/dL (70-99) 125 mg/dL (70-99) 138 mg/dL (70-99) White Blood Count 7.8 x10^3/uL (4.0-11.0) Red Blood Count 5.37 x10^6/uL (4.30-5.70) Hemoglobin 13.2 g/dL (13.0-17.5) Hematocrit 41.6 % (39.0-53.0) Mean Corpuscular Volume 77 fL (79-100) Mean Corpuscular Hemoglobin 25 pg (25-35) Mean Corpuscular Hemoglobin Concent 32 g/dL (31-37) Red Cell Distribution Width 18.3 % (11.5-14.5) Platelet Count 254 x10^3/uL (140-400) Neutrophils (%) (Auto) 91 % (31-73) Lymphocytes (%) (Auto) 4 % (24-48) Monocytes (%) (Auto) 5 % (0-9) Eosinophils (%) (Auto) 0 % (0-3) Basophils (%) (Auto) 0 % (0-3) Neutrophils # (Auto) 7.1 x10^3/uL (1.8-7.7) Lymphocytes # (Auto) 0.3 x10^3/uL (1.0-4.8) Monocytes # (Auto) 0.4 x10^3/uL (0.0-1.1) Eosinophils # (Auto) 0.0 x10^3/uL (0.0-0.7) Basophils # (Auto) 0.0 x10^3/uL (0.0-0.2) Sodium Level 144 mmol/L (136-145) Potassium Level 4.3 mmol/L (3.5-5.1) Chloride Level 104 mmol/L (98-107) Carbon Dioxide Level 38 mmol/L (21-32) Anion Gap 2 (6-14) Blood Urea Nitrogen 54 mg/dL (8-26) Creatinine 1.3 mg/dL (0.7-1.3) Estimated GFR (Cockcroft-Gault) 71.3 Glucose Level 136 mg/dL (70-99) Calcium Level 9.5 mg/dL (8.5-10.1) Phosphorus Level 4.4 mg/dL (2.6-4.7) Magnesium Level 2.2 mg/dL (1.8-2.4) Test 03/21/19 05:51 03/21/19 08:10 03/21/19 11:58 03/21/19 18:03 Glucose (Fingerstick) 134 mg/dL (70-99) 133 mg/dL (70-99) 130 mg/dL (70-99) O2 Saturation 92 % (92-99) Arterial Blood pH 7.44 (7.35-7.45) Arterial Blood pCO2 at Patient Temp 53 mmHg (35-46) Arterial Blood pO2 at Patient Temp 63 mmHg (75-108) Arterial Blood HCO3 35 mmol/L (21-28) Arterial Blood Base Excess 9 mmol/L (-3-3) FiO2 75 Test 03/22/19 00:07 03/22/19 05:00 03/22/19 05:21 03/22/19 07:00 Glucose (Fingerstick) 143 mg/dL (70-99) 135 mg/dL (70-99) White Blood Count 9.0 x10^3/uL (4.0-11.0) Red Blood Count 5.47 x10^6/uL (4.30-5.70) Hemoglobin 13.1 g/dL (13.0-17.5) Hematocrit 42.1 % (39.0-53.0) Mean Corpuscular Volume 77 fL (79-100) Mean Corpuscular Hemoglobin 24 pg (25-35) Mean Corpuscular Hemoglobin Concent 31 g/dL (31-37) Red Cell Distribution Width 18.1 % (11.5-14.5) Platelet Count 282 x10^3/uL (140-400) Neutrophils (%) (Auto) 92 % (31-73) Lymphocytes (%) (Auto) 3 % (24-48) Monocytes (%) (Auto) 5 % (0-9) Eosinophils (%) (Auto) 0 % (0-3) Basophils (%) (Auto) 0 % (0-3) Neutrophils # (Auto) 8.2 x10^3/uL (1.8-7.7) Lymphocytes # (Auto) 0.3 x10^3/uL (1.0-4.8) Monocytes # (Auto) 0.4 x10^3/uL (0.0-1.1) Eosinophils # (Auto) 0.0 x10^3/uL (0.0-0.7) Basophils # (Auto) 0.0 x10^3/uL (0.0-0.2) Sodium Level 144 mmol/L (136-145) Potassium Level 3.7 mmol/L (3.5-5.1) Chloride Level 102 mmol/L (98-107) Carbon Dioxide Level 38 mmol/L (21-32) Anion Gap 4 (6-14) Blood Urea Nitrogen 60 mg/dL (8-26) Creatinine 1.4 mg/dL (0.7-1.3) Estimated GFR (Cockcroft-Gault) 65.4 Glucose Level 137 mg/dL (70-99) Calcium Level 9.5 mg/dL (8.5-10.1) Phosphorus Level 4.4 mg/dL (2.6-4.7) Magnesium Level 2.1 mg/dL (1.8-2.4) O2 Saturation 94 % (92-99) Arterial Blood pH 7.47 (7.35-7.45) Arterial Blood pCO2 at Patient Temp 49 mmHg (35-46) Arterial Blood pO2 at Patient Temp 65 mmHg (75-108) Arterial Blood HCO3 35 mmol/L (21-28) Arterial Blood Base Excess 10 mmol/L (-3-3) FiO2 80 Laboratory Tests Test 03/21/19 11:58 03/21/19 18:03 03/22/19 00:07 03/22/19 05:00 Glucose (Fingerstick) 133 mg/dL (70-99) 130 mg/dL (70-99) 143 mg/dL (70-99) White Blood Count 9.0 x10^3/uL (4.0-11.0) Red Blood Count 5.47 x10^6/uL (4.30-5.70) Hemoglobin 13.1 g/dL (13.0-17.5) Hematocrit 42.1 % (39.0-53.0) Mean Corpuscular Volume 77 fL (79-100) Mean Corpuscular Hemoglobin 24 pg (25-35) Mean Corpuscular Hemoglobin Concent 31 g/dL (31-37) Red Cell Distribution Width 18.1 % (11.5-14.5) Platelet Count 282 x10^3/uL (140-400) Neutrophils (%) (Auto) 92 % (31-73) Lymphocytes (%) (Auto) 3 % (24-48) Monocytes (%) (Auto) 5 % (0-9) Eosinophils (%) (Auto) 0 % (0-3) Basophils (%) (Auto) 0 % (0-3) Neutrophils # (Auto) 8.2 x10^3/uL (1.8-7.7) Lymphocytes # (Auto) 0.3 x10^3/uL (1.0-4.8) Monocytes # (Auto) 0.4 x10^3/uL (0.0-1.1) Eosinophils # (Auto) 0.0 x10^3/uL (0.0-0.7) Basophils # (Auto) 0.0 x10^3/uL (0.0-0.2) Sodium Level 144 mmol/L (136-145) Potassium Level 3.7 mmol/L (3.5-5.1) Chloride Level 102 mmol/L (98-107) Carbon Dioxide Level 38 mmol/L (21-32) Anion Gap 4 (6-14) Blood Urea Nitrogen 60 mg/dL (8-26) Creatinine 1.4 mg/dL (0.7-1.3) Estimated GFR (Cockcroft-Gault) 65.4 Glucose Level 137 mg/dL (70-99) Calcium Level 9.5 mg/dL (8.5-10.1) Phosphorus Level 4.4 mg/dL (2.6-4.7) Magnesium Level 2.1 mg/dL (1.8-2.4) Test 03/22/19 05:21 03/22/19 07:00 Glucose (Fingerstick) 135 mg/dL (70-99) O2 Saturation 94 % (92-99) Arterial Blood pH 7.47 (7.35-7.45) Arterial Blood pCO2 at Patient Temp 49 mmHg (35-46) Arterial Blood pO2 at Patient Temp 65 mmHg (75-108) Arterial Blood HCO3 35 mmol/L (21-28) Arterial Blood Base Excess 10 mmol/L (-3-3) FiO2 80 Medications Active Scripts Medications Dose Route/Sig Max Daily Dose Days Date Category Hydrochlorothiazide Tablet (Hydrochlorothiazide) 25 Mg Tablet 25 Mg PO DAILY 03/10/19 Reported Norvasc (Amlodipine Besylate) 5 Mg Tablet 1 Tab PO DAILY 01/12/19 Rx Lisinopril 5 Mg Tablet 1 Tab PO DAILY 01/12/19 Rx Impression . 1. Acute hypercarbic/hypoxic respiratory Failure 2/2 ARDS/Pulm.edema. CTA chest (-) PE, DPLX (-) 2. Suspected VAP ABX per ID 3.Hypertension (controlled) 4. OSMAN 5. Pulm. HTN PA pressure 55 Normal EF 6. Possible non-ST myocardial infarction. 7. HX. of tobacco use 8. Morbid obesity Plan . 1. Continue with present assist control mode. wean PEEP to 13,%FIO2 80%. titrate fi02 to keep sat 92%, make necessary adjustment based on followup ABGs. cont vent support. ok with permissive hypercapnia NO SBT 2. high dose steroids ,initiated 03/16 3. Abx per ID, check all new cultures 4. Monitor fever and white cell count.overall no further fever 5. Continue bronchodilators. 6. Heparin for DVT prophylaxis 7. diuresis.d/w renal. lasix dripcr. is stable at 1.4 8. Remains critically ill, will need tracheostomy and LTACH in future once O2 requirement improves 9.Family requests DNR.Continue aggressive supportive care discussed with RN and RT. We will follow along with you. MARIO ALLEN MD Mar 22, 2019 10:15
[2019-03-22] MEDS: SCOPOLAMINE 1.5MG PATCH. TD SCH (10:47)
--- NOTE | 2019-03-22 11:00 | NUR ---
NURSING NOTE PT STARTED TO HAVE LOW BP WITH MAPS OF 40-50'S. CVP MONITOR HOOKED UP TO CHECK FOR FLUID STATUS AND WAS READING AT 16. PROPOFOL SHUT OFF AND BLOOD PRESSURE CAME BACK TO WNL AFTER APPROXIMATELY 15-20 MINUTES. CURRENTLY 140/68. PROPOFOL RESUMED AFTER AROUND 45 MINUTE HOLD. PRESSURE REMAIN WNL. DR. NAVA ROUNDLESTER ON UNIT AND NOTIFIED.
--- NOTE | 2019-03-22 11:54 | PDOC ---
[facility] PROGRESS NOTE Chief Complaint Chief Complaint Acute Hypercapnic Respiratory Failure/ARDS due to vaping Pulmonary Edema Bilateral Lung Infiltrates Obstructive sleep apnea OSMAN Increased Troponin Morbid Obesity Pulmonary HTN Tobacco use History of Present Illness History of Present Illness 03/22/19 Pt seen/examined in the ICU Pt is still on ventilation (Vent settings: AC/16/600/80% 13 PEEP) JUANA RN Chart and labs reviewed Chart Reviewed 03/21/19 Pt seen and examined in the ICU Pt still on ventilation (vent settings: AC/16/600/75% 13 PEEP) JUANA Pulm [employer] regarding starting patient on home medications for HTN 9�13�2019 Patient seen and examined in the ICU He is still ventilated AC/16/600/80% 14 PEEP 03/19/19 Pt seen and examined in ICU on vent (vent settings: AC/16/600/85% 14 PEEP) Pt responsive to voice In mitts for pt safety Pt sedated with versed, fentanyl, and precedex Rectal tube intact Fontana to BSD Has OG tube to LIS; ET tube placed JUANA RN 03/18/19 Pt seen and examined in ICU on vent (vent settings: AC/16/00/100% 14 PEEP) Pt sedated with versed, fentanyl, and precedex Rectal tube placed Fontana to BSD Has OG tube to LIS; ET tube placed JUANA RN Chart reviewed 03/17/19 Pt seen and examined in ICU on vent (AC/16/600/100 14peep) Pt has rectal tube and fontana to BSD Sedated with versed, fentanyl, and precedex Pt has ET tube and OG tube to LIS JUANA RN DW case planner Chart reviewed Vitals/I&O Vitals/I&O: Vital Signs Date Time Temp Pulse Resp B/P (MAP) Pulse Ox O2 Delivery O2 Flow Rate FiO2 03/22/19 11:34 98 Ventilator 03/22/19 11:00 85 16 80/43 (55) 03/22/19 09:29 15.0 03/22/19 08:00 98.1 98.1 I & O 03/21/19 03/21/19 03/22/19 15:00 23:00 07:00 Intake Total 1181 ml 2163 ml Output Total 2075 ml 930 ml 2255 ml Balance -2075 ml 251 ml -92 ml Physical Exam Physical Exam: GENERAL: Orally intubated/sedated, opens eyes transiently to verbal stimuli HEENT: Pupils equal, small. OGT/ETT NECK: Supple LUNGS: dec bs at bases HEART: S1 and S2, regular. ABDOMEN: Obese, soft, +BS : Fontana in place fecal tube in place EXTREMITIES: Trace edema - MITTS SKIN: Chronic stasis dermatitis on the lower extremity. NEUROLOGIC: Sedated RIJ clean General: No acute distress, Other (short neck , Mallampati 4 ON VENT) Heart: Regular rate (SR), Other (distante heart sounds) Lungs: Other (decrease bs) Abdomen: Normal bowel sounds, Soft, No tenderness, No hepatosplenomegaly, No masses Extremities: No clubbing, No cyanosis, No edema, Normal pulses, No ten derness/swelling Skin: No rashes, No breakdown, No significant lesion Labs Labs: Laboratory Tests Test 03/21/19 11:58 03/21/19 18:03 03/22/19 00:07 03/22/19 05:00 Glucose (Fingerstick) 133 mg/dL (70-99) 130 mg/dL (70-99) 143 mg/dL (70-99) White Blood Count 9.0 x10^3/uL (4.0-11.0) Red Blood Count 5.47 x10^6/uL (4.30-5.70) Hemoglobin 13.1 g/dL (13.0-17.5) Hematocrit 42.1 % (39.0-53.0) Mean Corpuscular Volume 77 fL (79-100) Mean Corpuscular Hemoglobin 24 pg (25-35) Mean Corpuscular Hemoglobin Concent 31 g/dL (31-37) Red Cell Distribution Width 18.1 % (11.5-14.5) Platelet Count 282 x10^3/uL (140-400) Neutrophils (%) (Auto) 92 % (31-73) Lymphocytes (%) (Auto) 3 % (24-48) Monocytes (%) (Auto) 5 % (0-9) Eosinophils (%) (Auto) 0 % (0-3) Basophils (%) (Auto) 0 % (0-3) Neutrophils # (Auto) 8.2 x10^3/uL (1.8-7.7) Lymphocytes # (Auto) 0.3 x10^3/uL (1.0-4.8) Monocytes # (Auto) 0.4 x10^3/uL (0.0-1.1) Eosinophils # (Auto) 0.0 x10^3/uL (0.0-0.7) Basophils # (Auto) 0.0 x10^3/uL (0.0-0.2) Sodium Level 144 mmol/L (136-145) Potassium Level 3.7 mmol/L (3.5-5.1) Chloride Level 102 mmol/L (98-107) Carbon Dioxide Level 38 mmol/L (21-32) Anion Gap 4 (6-14) Blood Urea Nitrogen 60 mg/dL (8-26) Creatinine 1.4 mg/dL (0.7-1.3) Estimated GFR (Cockcroft-Gault) 65.4 Glucose Level 137 mg/dL (70-99) Calcium Level 9.5 mg/dL (8.5-10.1) Phosphorus Level 4.4 mg/dL (2.6-4.7) Magnesium Level 2.1 mg/dL (1.8-2.4) Test 03/22/19 05:21 03/22/19 07:00 Glucose (Fingerstick) 135 mg/dL (70-99) O2 Saturation 94 % (92-99) Arterial Blood pH 7.47 (7.35-7.45) Arterial Blood pCO2 at Patient Temp 49 mmHg (35-46) Arterial Blood pO2 at Patient Temp 65 mmHg (75-108) Arterial Blood HCO3 35 mmol/L (21-28) Arterial Blood Base Excess 10 mmol/L (-3-3) FiO2 80 Review of Systems Review of Systems: Unable to obtain since pt is still sedated Assessment and Plan Assessmemt and Plan Problems Medical Problems: (1) CHF exacerbation Status: Acute (2) COPD exacerbation Status: Acute (3) Hypoxia Status: Acute (4) NSTEMI (non-ST elevated myocardial infarction) Status: Acute (5) Respiratory failure Status: Acute Assessment Acute Hypercapnic Respiratory Failure/ARDS due to vaping Pulmonary Edema Bilateral Lung Infiltrates Obstructive sleep apnea OSMAN Increased Troponin Morbid Obesity Pulmonary HTN Tobacco use Plan ICU monitoring Vent weaning Feed with OG PPN Monitor rectal tube Fontana to BSD Continue IV Abx (zyvox) Sedated with Versed, Fentanyl, and Propofol Home Meds Lasix drip Prognosis guarded Full Code Appreciate subspecialty input Total time 31 min Comment Review of Relevant I have reviewed the following items peter (where applicable) has been applied. Medications: Current Medications Medications (Trade) Dose Ordered Sig/Stefanie Route PRN Reason Start Time Stop Time Status Last Admin Dose Admin Furosemide 100 mg/ Sodium Chloride 100 ml @ 10 mls/hr CONT PRN IV SEE I/O RECORD 03/21/19 16:00 03/22/19 05:05 Scopolamine (Transderm-Scop) 1 patch Q3DAYS TD 03/22/19 11:00 03/22/19 10:47 TRICIA NAVA III DO Mar 22, 2019 11:54
--- NOTE | 2019-03-22 12:39 | PDOC ---
Renal-Progress Notes Subjective Notes Notes NOTHING NEW History of Present Illness Hx of present illness NO CHANGE Vitals Vitals Vital Signs Date Time Temp Pulse Resp B/P (MAP) Pulse Ox O2 Delivery O2 Flow Rate FiO2 03/22/19 12:31 96 Ventilator 03/22/19 12:00 98.2 97 21 126/64 (84) 98.2 03/22/19 09:29 15.0 Weight Weight [ ] I.O. Intake and Output Intake and Output 03/22/19 07:00 Intake Total 3344 ml Output Total 5260 ml Balance -1916 ml IV Total 1805 ml Tube Feeding 939 ml Other 600 ml Output Urine Total 5260 ml Labs Labs Laboratory Tests Test 03/21/19 18:03 03/22/19 00:07 03/22/19 05:00 03/22/19 05:21 Glucose (Fingerstick) 130 mg/dL (70-99) 143 mg/dL (70-99) 135 mg/dL (70-99) White Blood Count 9.0 x10^3/uL (4.0-11.0) Red Blood Count 5.47 x10^6/uL (4.30-5.70) Hemoglobin 13.1 g/dL (13.0-17.5) Hematocrit 42.1 % (39.0-53.0) Mean Corpuscular Volume 77 fL (79-100) Mean Corpuscular Hemoglobin 24 pg (25-35) Mean Corpuscular Hemoglobin Concent 31 g/dL (31-37) Red Cell Distribution Width 18.1 % (11.5-14.5) Platelet Count 282 x10^3/uL (140-400) Neutrophils (%) (Auto) 92 % (31-73) Lymphocytes (%) (Auto) 3 % (24-48) Monocytes (%) (Auto) 5 % (0-9) Eosinophils (%) (Auto) 0 % (0-3) Basophils (%) (Auto) 0 % (0-3) Neutrophils # (Auto) 8.2 x10^3/uL (1.8-7.7) Lymphocytes # (Auto) 0.3 x10^3/uL (1.0-4.8) Monocytes # (Auto) 0.4 x10^3/uL (0.0-1.1) Eosinophils # (Auto) 0.0 x10^3/uL (0.0-0.7) Basophils # (Auto) 0.0 x10^3/uL (0.0-0.2) Sodium Level 144 mmol/L (136-145) Potassium Level 3.7 mmol/L (3.5-5.1) Chloride Level 102 mmol/L (98-107) Carbon Dioxide Level 38 mmol/L (21-32) Anion Gap 4 (6-14) Blood Urea Nitrogen 60 mg/dL (8-26) Creatinine 1.4 mg/dL (0.7-1.3) Estimated GFR (Cockcroft-Gault) 65.4 Glucose Level 137 mg/dL (70-99) Calcium Level 9.5 mg/dL (8.5-10.1) Phosphorus Level 4.4 mg/dL (2.6-4.7) Magnesium Level 2.1 mg/dL (1.8-2.4) Test 03/22/19 07:00 03/22/19 12:12 O2 Saturation 94 % (92-99) Arterial Blood pH 7.47 (7.35-7.45) Arterial Blood pCO2 at Patient Temp 49 mmHg (35-46) Arterial Blood pO2 at Patient Temp 65 mmHg (75-108) Arterial Blood HCO3 35 mmol/L (21-28) Arterial Blood Base Excess 10 mmol/L (-3-3) FiO2 80 Glucose (Fingerstick) 144 mg/dL (70-99) Micro Micro Microbiology 03/16/19 - Final, Resulted 03/16/19 - Final, Resulted 03/16/19 - Preliminary, Resulted 03/16/19 - Preliminary, Resulted 03/16/19 - Preliminary, Resulted 03/16/19 - Preliminary, Resulted 03/16/19 Gram Stain Evaluation - Final, Resulted 03/16/19 Sputum Culture - Final, Resulted 03/16/19 Sputum Result 1 - Final, Resulted 03/16/19 Blood Culture - Final, Complete NO GROWTH AFTER 5 DAYS 03/09/19 Urine Culture - Final, Complete 03/09/19 Urine Culture Result 1 (WIL) - Final, Complete Review of Systems Constitutional: yes: unresponsive Physical Exam General Appearance: other (SEDATED) Skin: warm Respiratory: decreased breath sounds Heart: S1S2 Abdomen: soft, bowel sounds present Genitourinary: bladder flat Extremities: pulses present Neurology: other (SEDATED) Musculoskeletal: Other (obese) Assessment Assessment IMP OSMAN RESOLVED-CUT UP TO 1.4 TODAY CKD STAGE 2 WITH CR OF 1.2 ACUTE HYPERCAPNIC RESP [id number] NEEDING FIO2 80% HX OF TOBACCO AND VAPING MORBID OBESITY PLAN SUPPORTIVE CARE ANTIBIOTICS DECREASE LASIX GTT CONT TF NEEDS TRACH AND LTAC WILL FOLLOW MYESHA ACEVEDO MD Mar 22, 2019 12:39
[2019-03-22] MEDS ORDERED: FUROSEMIDE INJ 100 MG in IV NORMAL SALINE 100ML 100 ML IV PRN (12:45)
[2019-03-23] VITALS (22 sets, daily range): BP systolic 94–187; BP diastolic 45–105
[2019-03-23] MEDS: PIPERACILLIN/TAZOBACTAM 3.375 GM in IV NORMAL SALINE 50ML 50 ML IV SCH ×4 (00:09→17:42)
--- NOTE | 2019-03-23 00:30 | CONS ---
DATE OF CONSULTATION: 03/22/2019 REASON FOR CONSULTATION: Jerking motions, evaluate for seizure. HISTORY OF PRESENT ILLNESS: The patient is an unfortunate 48-year-old man admitted to [facility] on 03/09/2019. He has COPD and has at home been maintained on 2-3 liters of nasal cannula oxygen. He smokes tobacco and vapes. He went into an acute pulmonary process with acute respiratory distress syndrome. This was possibly felt to be due to vaping. Since being admitted, he has gone into respiratory failure and has required high levels of oxygen and high pressures to maintain oxygenation. He also had sepsis and acute renal failure, although these issues seem to have improved. He continues to be severely encephalopathic, but does also require heavy sedation to be maintained on the ventilator with fentanyl, midazolam as well as propofol. He had a spell where he had some myoclonic jerking and shaking and there was concern that possibly there was seizure activity, although no organized convulsive activity was ever witnessed. PAST MEDICAL HISTORY: 1. Hypertension. 2. Ascending thoracic aorta 4.4 cm. 3. Chronic lymphedema. 4. History of congestive heart failure. 5. Chronic obstructive pulmonary disease. 6. Obstructive sleep apnea. ALLERGIES: No known allergies to drugs. CURRENT MEDICATIONS: Furosemide infusion, scopolamine patch, amlodipine 10 mg, lisinopril 5 mg, lorazepam as needed, Solu-Medrol 100 mg every 8 hours, Precedex, insulin as needed, heparin 5000 units every 8 hours, linezolid every 12 hours, hydralazine 10 mg as needed, aspirin 81 mg, piperacillin/tazobactam every 6 hours, albuterol/ipratropium nebulized, famotidine 20 mg twice per day, midazolam by chronic confusion 10 mg an hour, propofol, fentanyl 99 mcg per hour. FAMILY HISTORY: Hypertension. SOCIAL HISTORY: He smokes less than a pack a day. He does not drink alcohol or use recreational drugs. REVIEW OF SYSTEMS: Not obtainable. PHYSICAL EXAMINATION: He was intubated, ventilated, and sedated. With noxious stimulation, he would open his eyes, but there was no focus. He did not follow any commands. He did not look up to command. The eyes did appear conjugate. He did not respond to visual threat or loud clap. Pupils are 3 mm. Oculocephalic reflex did not appear to be present. The neck was not rigid. Muscle bulk was symmetric. He was morbidly obese and arms and legs were very large. There was chronic lymphedema of the legs and they were enormously large. The skin was extremely thickened and pigmented on his legs. The skin had a very rough scaly appearance in the legs. Tone was flaccid. He did not respond to stimulation. Tendon reflexes were absent. Toes were not up or downgoing. LABORATORY DATA: On review of laboratory data, CBC performed on 03/22/2019 revealed a normal white blood cell count, hemoglobin, hematocrit and platelet count. Chemistries from the same day revealed normal sodium, potassium, and chloride. CO2 was elevated to 38. BUN was 16, creatinine 1.4. Glucose 137. Calcium was normal. Phosphorus and magnesium were normal. Urine drug screen was positive for benzodiazepines on 03/13/2019. Serology was negative for C. diff toxicology on 03/20/2019. Legionella was absent on 03/13/2019. Mycoplasma serology was negative on that same date. Strep pneumonia antigen was also negative on that date. Urinalysis from 03/09/2019 revealed trace ketones, large amount of blood, moderate bilirubin, 2 urobilinogen, small leukocyte esterase, 20-40 red cells, 5-10 white cells, and a few casts of various types. An arterial blood gas was performed on 03/22/2019. PH was elevated at 7.47, pCO2 was elevated at 49, pO2 was low at 65, bicarbonate was elevated at 35, and saturation was 94% on an FiO2 of 80%. IMPRESSION: The patient is an unfortunate 48-year-old man who developed an acute respiratory distress syndrome leading to respiratory failure. At baseline, he had chronic obstructive pulmonary disease and was oxygen dependent. He is morbidly obese, which causes some restriction of his breathing as well. He has had sepsis and acute renal failure, which have been improving. The respiratory status does not appear to be improving and seems to be regressing. Neurologic exam is not entirely valid because of the level of sedation he is requiring to tolerate the ventilator. He has been intubated since admission. He had some shaking which was not in an organized fashion and may have been myoclonic jerking. I cannot entirely exclude seizure. RECOMMENDATIONS: We will obtain an EEG to see if there is evidence of underlying subclinical seizure. I suspect it will show more of a low slow encephalopathic process. He did have a CT scan of his head on 03/10/2019, which did not reveal an acute intracranial process. There were some paranasal mucosal thickenings or inflammatory changes. I appreciate being involved in his care. SKYLER KOCH MD DR: CHANTALE/vidya JOB#: [id number] / [id number]
[2019-03-23] MEDS: PROPOFOL 100 ML IV PRN ×9 (00:34→22:12)
[2019-03-23] MEDS: MIDAZOLAM 100mg/100ml NS BAG 100 ML IV PRN ×2 (00:34→12:04)
[2019-03-23] MEDS: methylPREDNISolone SOD SUCC PF 125 MG/2 ML VIAL. IV SCH ×3 (05:52→22:04)
[2019-03-23] MEDS: HEPARIN for SUB-Q USE 5,000 UNIT/ML VIAL. SQ SCH ×3 (05:54→22:07)
[2019-03-23] MEDS: INSULIN LISPRO 300 UNITS/3 ML VIAL. SQ SCH ×4 (06:00→16:34)
[2019-03-23 06:53] LABS: CALCIUM 9.5 mg/dL (8.5-10.1); CREATININE 1.6 mg/dL (0.7-1.3); GFR 56.1; MAGNESIUM 2.2 mg/dL (1.8-2.4); PHOSPHORUS 5.5 mg/dL (2.6-4.7); POTASSIUM 4.1 mmol/L (3.5-5.1)
[2019-03-23 07:01] LABS: BASO % 0 % (0-3); EOS % 0 % (0-3); HEMATOCRIT 42.4 % (39.0-53.0); HEMOGLOBIN 13.3 g/dL (13.0-17.5); LYMPH # 0.3 x10^3/uL (1.0-4.8); LYMPH % 3 % (24-48); MEAN CORPUSCULAR HEMOGLOBIN 24 pg (25-35); MEAN CORPUSCULAR HGB CONC 31 g/dL (31-37); MEAN CORPUSCULAR VOLUME 78 fL (79-100); MONO # 0.5 x10^3/uL (0.0-1.1); MONO % 5 % (0-9); NEUT # 9.8 x10^3/uL (1.8-7.7); NEUT % 92 % (31-73); PLATELET COUNT 331 x10^3/uL (140-400); RED BLOOD COUNT 5.47 x10^6/uL (4.30-5.70); RED CELL DISTRIBUTION WIDTH 18.3 % (11.5-14.5); WHITE BLOOD COUNT 10.7 x10^3/uL (4.0-11.0)
--- NOTE | 2019-03-23 07:29 | PDOC ---
Infectious Disease Note Subjective Subjective Orally intubated - eyes open but not responsive no fevers PEEP 13 % and Fi02 80 % d/w RN Vital Sign Vital Signs Vital Signs Date Time Temp Pulse Resp B/P (MAP) Pulse Ox O2 Delivery O2 Flow Rate FiO2 03/23/19 06:00 95 16 175/105 (128) 96 03/23/19 05:12 Ventilator 03/23/19 04:00 97.7 97.7 03/22/19 09:29 15.0 Physical Exam PHYSICAL EXAM GENERAL: Orally intubated/ lightly sedated, eyes open and blinking HEENT: Pupils equal, small. OGT/ETT NECK: Supple LUNGS: dec bs at bases HEART: S1 and S2, regular. ABDOMEN: Obese, soft, +BS : Ramos in place fecal tube in place EXTREMITIES: Trace edema - MITTS SKIN: Chronic stasis dermatitis on the lower extremity. NEUROLOGIC: Sedated [facility] clean Labs Lab Laboratory Tests Test 03/22/19 12:12 03/22/19 17:38 03/23/19 00:26 03/23/19 06:07 Glucose (Fingerstick) 144 mg/dL (70-99) 135 mg/dL (70-99) 143 mg/dL (70-99) 132 mg/dL (70-99) Test 03/23/19 06:15 White Blood Count 10.7 x10^3/uL (4.0-11.0) Red Blood Count 5.47 x10^6/uL (4.30-5.70) Hemoglobin 13.3 g/dL (13.0-17.5) Hematocrit 42.4 % (39.0-53.0) Mean Corpuscular Volume 78 fL (79-100) Mean Corpuscular Hemoglobin 24 pg (25-35) Mean Corpuscular Hemoglobin Concent 31 g/dL (31-37) Red Cell Distribution Width 18.3 % (11.5-14.5) Platelet Count 331 x10^3/uL (140-400) Neutrophils (%) (Auto) 92 % (31-73) Lymphocytes (%) (Auto) 3 % (24-48) Monocytes (%) (Auto) 5 % (0-9) Eosinophils (%) (Auto) 0 % (0-3) Basophils (%) (Auto) 0 % (0-3) Neutrophils # (Auto) 9.8 x10^3/uL (1.8-7.7) Lymphocytes # (Auto) 0.3 x10^3/uL (1.0-4.8) Monocytes # (Auto) 0.5 x10^3/uL (0.0-1.1) Eosinophils # (Auto) 0.0 x10^3/uL (0.0-0.7) Basophils # (Auto) 0.0 x10^3/uL (0.0-0.2) Sodium Level 145 mmol/L (136-145) Potassium Level 4.1 mmol/L (3.5-5.1) Chloride Level 103 mmol/L (98-107) Carbon Dioxide Level 38 mmol/L (21-32) Anion Gap 4 (6-14) Blood Urea Nitrogen 80 mg/dL (8-26) Creatinine 1.6 mg/dL (0.7-1.3) Estimated GFR (Cockcroft-Gault) 56.1 Glucose Level 137 mg/dL (70-99) Calcium Level 9.5 mg/dL (8.5-10.1) Phosphorus Level 5.5 mg/dL (2.6-4.7) Magnesium Level 2.2 mg/dL (1.8-2.4) Micro Microbiology 03/16/19 - Final, Resulted 03/16/19 - Final, Resulted 03/16/19 - Preliminary, Resulted 03/16/19 - Preliminary, Resulted 03/16/19 - Preliminary, Resulted 03/16/19 - Preliminary, Resulted 03/16/19 Gram Stain Evaluation - Final, Resulted 03/16/19 Sputum Culture - Final, Resulted 03/16/19 Sputum Result 1 - Final, Resulted 03/16/19 Blood Culture - Final, Complete NO GROWTH AFTER 5 DAYS 03/09/19 Urine Culture - Final, Complete 03/09/19 Urine Culture Result 1 (NICHO) - Final, Complete Objective Assessment GPC bacteremia (1 of 4 bottles), 03/10, Dermabacter hominis ,likely contaminant, no further nicho available repeat bc neg so far Rhythmic blinking EEG done earlier Acute resp failure, intubated, still requiring high peep PEEP 13 % and Fi02 80 % Pulmonary infiltrates could be from underlying lung injury from vaping, - GPC on gram stain, 03/11 ,not identified legionella ,strep pneu ,mycoplasma neg Leukocytosis resolved Fever resolved OSMAN - mild increase CHF Super morbid obesity, BMI 61 Vaping Plan Plan of Care Cont Zosyn. 03/10 for now Discont Zyvox 03/11 DC Rt IJ, - PICC to be placed f/u cultures Await further Neuro follow up D/w nursing Critically ill Overall prognosis poor LUCILA CARDENAS MD Mar 23, 2019 07:29
[2019-03-23] MEDS: IPRATRPIUM/ALBUTEROL 0.5/2.5MG 3 ML NEBU. NEB SCH ×4 (07:45→20:05)
[2019-03-23 08:01] LABS: % LYMPHS 7 % (24-48); % MONOS 5 % (0-10); % SEGS 88 % (35-66); PLT ESTIMATE ADEQUATE (ADEQUATE)
[2019-03-23 08:02] LABS: ANISOCYTOSIS SLIGHT; HYPOCHROMIA SLIGHT
[2019-03-23] MEDS: amLODIPine BESYLATE 10 MG TABLET PO SCH (08:11)
[2019-03-23] MEDS: LISINOPRIL 5 MG TABLET. PO SCH (08:11)
[2019-03-23] MEDS: CHLORHEXIDINE 0.12% 15 ML MOUTHWASH. MM SCH ×2 (08:11→22:04)
[2019-03-23] MEDS: FAMOTIDINE 20 MG/2 ML VIAL IVP SCH ×2 (08:12→22:04)
[2019-03-23] MEDS: ASPIRIN CHEWABLE 81 MG TABLET. PO SCH (08:13)
--- NOTE | 2019-03-23 08:55 | EEG ---
DATE OF SERVICE: 03/23/2019 EEG NUMBER: [id number]. OBJECTIVE: The patient is a 48-year-old male with episodes of myoclonus. DESCRIPTION: This is a digital study. Electrodes are placed according to the international 10-20 system. Bipolar and referential montages are available. INTERPRETATION: Waking background consists of 7-8 Hz, 50-100 microvolt activity, symmetrically distributed over parietooccipital regions and reactive to eye opening. Hyperventilation is not performed. Intermittent photic stimulation is noncontributory. IMPRESSION: This electroencephalogram with the patient awake only is abnormal because of a mild, diffuse disturbance of cerebral activity consistent with any of a variety of toxic or metabolic encephalopathies. There is no focal, paroxysmal, or epileptiform activity. Thank you for letting us help with the patient's care. LICO HOLGUIN MD DR: REHAN/vidya JOB#: [id number] / [id number]
--- NOTE | 2019-03-23 09:19 | PDOC ---
SUBJECTIVE ROS Stable OBJECTIVE Vital Signs Vital Signs Date Time Temp Pulse Resp B/P (MAP) Pulse Ox O2 Delivery O2 Flow Rate FiO2 03/23/19 08:18 16 99 Ventilator 03/23/19 08:12 84 156/84 03/23/19 07:00 98.6 98.6 03/22/19 09:29 15.0 I & 0 Intake and Output 03/23/19 07:00 Intake Total 6641.2 ml Output Total 3735 ml Balance 2906.2 ml IV Total 2616.2 ml Tube Feeding 2625 ml Other 1400 ml Output Urine Total 3735 ml PHYSICAL EXAM Physical Exam GENERAL: Orally intubated HEENT: OGT/ETT NECK: Supple LUNGS: decreased bs at bases HEART: S1 and S2, regular. ABDOMEN: Obese, soft, +BS : Ramos + EXTREMITIES: Trace edema SKIN: , Chronic stasis dermatitis on the lower extremity. NEUROLOGIC: Sedated Rectal tube in place DIAGNOSIS/ASSESSMENT Assessment & Plan OSMAN- Had resolved , BUN/Creat increasing Recommend dc IV Lasix gtt CTA on 03/10 Supportive care, Monitor , Avoid Nephrotoxins CKD stage 2 baseline Cr appears to be 1.2 Acute hypercapnic respiratory - acute lung injury/noncardiogenic pulmonary edema/ ARDS due to vaping vs [id number] right heart failure with worsening hypercapnia. CHF- Per cardiology On IV Lasix gtt Super morbid Obesity Vaping COMMENT/RELEVANT DATA Meds Current Medications Medications (Trade) Dose Ordered Sig/Stefanie Start Time Stop Time Status Last Admin Dose Admin Albuterol/ Ipratropium (Duoneb) 3 ml RTQID 03/10/19 12:00 03/23/19 07:46 3 ML Amlodipine Besylate (Norvasc) 10 mg DAILY 03/21/19 11:30 03/23/19 08:12 10 MG Artificial Tears (Artificial Tears) 1 drop PRN Q1HR PRN 03/10/19 07:30 03/13/19 13:32 1 DROP Aspirin (Aspirin Rectal Supp) 300 mg 1X ONCE 03/10/19 00:00 03/10/19 00:01 DC 03/10/19 03:42 300 MG Aspirin (Amanda Aspirin) 325 mg 1X ONCE 03/10/19 10:30 03/10/19 10:31 DC 03/10/19 10:55 325 MG Aspirin (Children'S Aspirin) 81 mg [id number] 03/11/19 08:00 03/23/19 08:13 81 MG Atropine Sulfate (ATROPINE 0.5mg SYRINGE) 0.5 mg PRN Q5MIN PRN 03/12/19 20:30 Bumetanide (Bumex) 1 mg 1X ONCE 03/10/19 00:00 03/10/19 00:01 DC 03/10/19 00:21 1 MG Chlorhexidine Gluconate (Peridex) 15 ml BID 03/10/19 09:00 03/23/19 08:12 15 ML Clonidine HCl (Catapres) 0.1 mg 1X ONCE 03/10/19 01:30 03/10/19 01:34 DC Daptomycin 1320 mg/Sodium Chloride 50 ml @ 100 mls/hr ONCE ONCE 03/15/19 13:00 03/16/19 09:33 DC 03/15/19 13:53 100 MLS/HR Daptomycin 1340 mg/Sodium Chloride 50 ml @ 100 mls/hr Q24H 03/16/19 09:00 Cancel Daptomycin 830 mg/ Sodium Chloride 50 ml @ 100 mls/hr Q24H 03/16/19 14:00 03/19/19 07:41 DC 03/18/19 15:03 100 MLS/HR Dexamethasone Sodium Phosphate (Decadron) 10 mg 1X ONCE 03/09/19 22:00 03/09/19 22:01 DC 03/09/19 22:29 10 MG Dexmedetomidine HCl 400 mcg/ Sodium Chloride 100 ml @ 0 mls/hr CONT PRN 03/12/19 20:30 03/21/19 04:33 21.7 MLS/HR Dextrose 250 ml PRN Q15MIN PRN 03/12/19 16:15 Dextrose (Dextrose 50%-Water Syringe) 12.5 gm PRN Q15MIN PRN 03/12/19 16:15 Etomidate (Amidate) 20 mg STK-MED ONCE 03/10/19 05:15 03/10/19 05:16 DC Famotidine (Pepcid Vial) 20 mg BID 03/10/19 09:00 UNV Fentanyl Citrate (Fentanyl 2ml Vial) 50 mcg PRN Q1HR PRN 03/10/19 07:30 Fentanyl Citrate (Fentanyl 600 Mcg/30 ml [employer]) 600 mcg STK-MED ONCE 03/13/19 17:00 03/17/19 11:02 DC Furosemide (Lasix) 40 mg 1X ONCE 03/16/19 16:30 03/16/19 16:31 DC 03/16/19 16:46 40 MG Furosemide 100 mg/ Sodium Chloride 100 ml @ 5 mls/hr CONT PRN 03/22/19 12:45 03/22/19 21:38 5 MLS/HR Heparin Sodium (Porcine) (Heparin Sodium) 5,000 unit Q8HRS 03/11/19 22:00 03/23/19 05:54 5,000 UNIT Heparin Sodium/ Dextrose 500 ml @ 0 mls/hr CONT PRN 03/09/19 23:45 03/11/19 16:13 DC 03/10/19 23:34 1,300 MLS/HR Hydralazine HCl (Apresoline Inj) 10 mg PRN Q4HRS PRN 03/11/19 13:00 03/22/19 06:13 10 MG Hydrochlorothiazide (Hydrodiuril) 25 mg DAILY 03/10/19 09:00 03/10/19 10:04 DC 03/10/19 09:13 25 MG Info (CONTRAST GIVEN -- Rx MONITORING) 1 each PRN DAILY PRN 03/10/19 11:45 03/12/19 11:44 DC Insulin Human Lispro (HumaLOG) 0-9 UNITS Q6HRS 03/12/19 18:00 03/18/19 18:35 4 UNITS Iohexol (Omnipaque 350 Mg/ml) 100 ml 1X ONCE 03/10/19 11:45 03/10/19 11:47 DC 03/10/19 14:05 100 ML Levofloxacin/ Dextrose 100 ml @ 100 mls/hr Q24H 03/10/19 09:00 03/14/19 09:25 DC 03/14/19 08:10 100 MLS/HR Levofloxacin/ Dextrose (Levaquin Per Pharmacy) 1 each PRN DAILY PRN 03/10/19 08:15 03/14/19 09:25 DC Linezolid/Dextrose 300 ml @ 300 mls/hr Q12HR 03/11/19 21:00 03/23/19 07:48 DC 03/22/19 21:38 300 MLS/HR Lisinopril (Prinivil) 5 mg DAILY 03/21/19 11:30 03/23/19 08:12 5 MG Lorazepam (Ativan Inj) 2 mg PRN Q1HR PRN 03/19/19 10:45 03/20/19 17:11 2 MG Magnesium Sulfate/ Dextrose 100 ml @ 50 mls/hr DAILY 03/11/19 09:00 03/14/19 08:59 DC 03/11/19 09:28 50 MLS/HR Methylprednisolone Sodium Succinate (SOLU-Medrol 125MG VIAL) 100 mg Q8HRS 03/16/19 12:00 03/23/19 05:54 100 MG Midazolam HCl 100 ml @ 0 mls/hr CONT PRN 03/10/19 07:30 03/23/19 00:34 10 MLS/HR Midazolam HCl (Versed) 5 mg 1X ONCE 03/10/19 01:30 03/10/19 01:34 DC 03/10/19 01:28 5 MG Morphine Sulfate (Morphine Sulfate) 4 mg PRN Q1HR PRN 03/10/19 07:30 Multi-Ingred Cream/Lotion/Oil/ Oint (Artificial Tears Eye Ointment) 1 zuri PRN Q1HR PRN 03/12/19 09:00 Norepinephrine Bitartrate 250 ml @ 27.837 mls/ hr CONT PRN 03/11/19 13:00 03/13/19 04:13 1.392 MLS/HR Perflutren Protein Type A Microsphe (Optison) 0.66 mg 1X ONCE 03/13/19 09:15 03/13/19 09:16 DC 03/13/19 09:40 0.66 MG Piperacillin Sod/ Tazobactam Sod (Zosyn Per Pharmacy) 1 each PRN DAILY PRN 03/10/19 11:45 Piperacillin Sod/ Tazobactam Sod 3.375 gm/Sodium Chloride 50 ml @ 100 mls/hr Q6HRS 03/10/19 12:30 03/23/19 05:54 100 MLS/HR Piperacillin Sod/ Tazobactam Sod 4.5 gm/Sodium Chloride 100 ml @ 200 mls/hr 1X ONCE 03/10/19 00:30 03/10/19 00:59 DC 03/10/19 05:19 200 MLS/HR Potassium Chloride/Water 50 ml @ 50 mls/hr 1X ONCE 03/12/19 10:30 03/12/19 11:31 DC Potassium Phosphate 27.2 mmol/Sodium Chloride 259.0667 ml @ 64.753 m... 1X ONCE 03/11/19 14:00 03/11/19 18:00 DC Propofol 100 ml @ 0 mls/hr CONT PRN 03/10/19 07:30 03/23/19 05:54 39.1 MLS/HR Rocuronium Farner (Zemuron) 50 mg STK-MED ONCE 03/10/19 05:15 03/10/19 05:15 DC Scopolamine (Transderm-Scop) 1 patch Q3DAYS 03/22/19 11:00 03/22/19 10:47 1 PATCH Sodium Chloride 500 ml @ 500 mls/hr 1X PRN PRN 03/12/19 20:30 03/12/19 23:22 500 MLS/HR Vancomycin HCl (Vanco Per Pharmacy) 1 each PRN DAILY PRN 03/10/19 11:45 03/11/19 13:57 DC 03/11/19 09:42 1 EACH Vancomycin HCl (Vancomycin Trough Level) 1 each 1X ONCE 03/12/19 12:30 03/12/19 12:31 Cancel Vancomycin HCl 1.75 gm/Sodium Chloride 500 ml @ 250 mls/hr Q12H 03/11/19 01:00 03/11/19 13:57 DC 03/11/19 12:43 250 MLS/HR Vancomycin HCl 2 gm/Sodium Chloride 500 ml @ 250 mls/hr 1X ONCE 03/10/19 13:00 03/10/19 14:59 DC 03/10/19 12:41 250 MLS/HR Vecuronium Farner (Norcuron Bolus) 10 mg PRN Q1HR PRN 03/13/19 07:30 Lab Laboratory Tests Test 03/22/19 12:12 03/22/19 17:38 03/23/19 00:26 03/23/19 06:07 Glucose (Fingerstick) 144 mg/dL (70-99) 135 mg/dL (70-99) 143 mg/dL (70-99) 132 mg/dL (70-99) Test 03/23/19 06:15 White Blood Count 10.7 x10^3/uL (4.0-11.0) Red Blood Count 5.47 x10^6/uL (4.30-5.70) Hemoglobin 13.3 g/dL (13.0-17.5) Hematocrit 42.4 % (39.0-53.0) Mean Corpuscular Volume 78 fL (79-100) Mean Corpuscular Hemoglobin 24 pg (25-35) Mean Corpuscular Hemoglobin Concent 31 g/dL (31-37) Red Cell Distribution Width 18.3 % (11.5-14.5) Platelet Count 331 x10^3/uL (140-400) Neutrophils (%) (Auto) 92 % (31-73) Lymphocytes (%) (Auto) 3 % (24-48) Monocytes (%) (Auto) 5 % (0-9) Eosinophils (%) (Auto) 0 % (0-3) Basophils (%) (Auto) 0 % (0-3) Neutrophils # (Auto) 9.8 x10^3/uL (1.8-7.7) Lymphocytes # (Auto) 0.3 x10^3/uL (1.0-4.8) Monocytes # (Auto) 0.5 x10^3/uL (0.0-1.1) Eosinophils # (Auto) 0.0 x10^3/uL (0.0-0.7) Basophils # (Auto) 0.0 x10^3/uL (0.0-0.2) Segmented Neutrophils % 88 % (35-66) Lymphocytes % 7 % (24-48) Monocytes % 5 % (0-10) Platelet Estimate Adequate (ADEQUATE) Hypochromasia Slight Anisocytosis Slight Sodium Level 145 mmol/L (136-145) Potassium Level 4.1 mmol/L (3.5-5.1) Chloride Level 103 mmol/L (98-107) Carbon Dioxide Level 38 mmol/L (21-32) Anion Gap 4 (6-14) Blood Urea Nitrogen 80 mg/dL (8-26) Creatinine 1.6 mg/dL (0.7-1.3) Estimated GFR (Cockcroft-Gault) 56.1 Glucose Level 137 mg/dL (70-99) Calcium Level 9.5 mg/dL (8.5-10.1) Phosphorus Level 5.5 mg/dL (2.6-4.7) Magnesium Level 2.2 mg/dL (1.8-2.4) Results All relevant outside records, renal labs, imaging studies, telemetry/EKG's were reviewed. Other CxR 03/22-- Radiographic findings are similar, persistent airspace and interstitial opacity with basilar predominance, also suspected small bilateral pleural effusions. There are support catheters and tubes as stated. SARAH GAYTAN MD Mar 23, 2019 09:19
--- NOTE | 2019-03-23 09:30 | PDOC ---
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 ARDS, respiratory failure, COPD Morbid obesity Sepsis Acute renal failure Plan Continue current management No need for anticonvulsants Subjective None Objective Vital Signs Date Time Temp Pulse Resp B/P (MAP) Pulse Ox O2 Delivery O2 Flow Rate FiO2 03/23/19 09:00 62 16 104/57 (73) 98 03/23/19 08:18 Ventilator 03/23/19 07:00 98.6 98.6 03/22/19 09:29 15.0 Intake and Output 03/23/19 06:59 Intake Total 6641.2 ml Output Total 3760 ml Balance 2881.2 ml IV Total 2616.2 ml Tube Feeding 2625 ml Other 1400 ml Output Urine Total 3760 ml PHYSICAL EXAM Sedated on ventilator, opens eyes to voice, follow a few simple commands PERRL. EOMI. CN: no focal findings. Muscle tone: normal. Muscle strength: news all extremities DTR: 1+ Plantar reflex: silent Gait: not examined in bed. Sensory exam: no abnormal findings. No cerebellar signs elicited. Review of Relevant I have reviewed the following items peter (where applicable) has been applied. Labs Laboratory Tests Test 03/21/19 11:58 03/21/19 18:03 03/22/19 00:07 03/22/19 05:00 Glucose (Fingerstick) 133 mg/dL (70-99) 130 mg/dL (70-99) 143 mg/dL (70-99) White Blood Count 9.0 x10^3/uL (4.0-11.0) Red Blood Count 5.47 x10^6/uL (4.30-5.70) Hemoglobin 13.1 g/dL (13.0-17.5) Hematocrit 42.1 % (39.0-53.0) Mean Corpuscular Volume 77 fL (79-100) Mean Corpuscular Hemoglobin 24 pg (25-35) Mean Corpuscular Hemoglobin Concent 31 g/dL (31-37) Red Cell Distribution Width 18.1 % (11.5-14.5) Platelet Count 282 x10^3/uL (140-400) Neutrophils (%) (Auto) 92 % (31-73) Lymphocytes (%) (Auto) 3 % (24-48) Monocytes (%) (Auto) 5 % (0-9) Eosinophils (%) (Auto) 0 % (0-3) Basophils (%) (Auto) 0 % (0-3) Neutrophils # (Auto) 8.2 x10^3/uL (1.8-7.7) Lymphocytes # (Auto) 0.3 x10^3/uL (1.0-4.8) Monocytes # (Auto) 0.4 x10^3/uL (0.0-1.1) Eosinophils # (Auto) 0.0 x10^3/uL (0.0-0.7) Basophils # (Auto) 0.0 x10^3/uL (0.0-0.2) Sodium Level 144 mmol/L (136-145) Potassium Level 3.7 mmol/L (3.5-5.1) Chloride Level 102 mmol/L (98-107) Carbon Dioxide Level 38 mmol/L (21-32) Anion Gap 4 (6-14) Blood Urea Nitrogen 60 mg/dL (8-26) Creatinine 1.4 mg/dL (0.7-1.3) Estimated GFR (Cockcroft-Gault) 65.4 Glucose Level 137 mg/dL (70-99) Calcium Level 9.5 mg/dL (8.5-10.1) Phosphorus Level 4.4 mg/dL (2.6-4.7) Magnesium Level 2.1 mg/dL (1.8-2.4) Test 03/22/19 05:21 03/22/19 07:00 03/22/19 12:12 03/22/19 17:38 Glucose (Fingerstick) 135 mg/dL (70-99) 144 mg/dL (70-99) 135 mg/dL (70-99) O2 Saturation 94 % (92-99) Arterial Blood pH 7.47 (7.35-7.45) Arterial Blood pCO2 at Patient Temp 49 mmHg (35-46) Arterial Blood pO2 at Patient Temp 65 mmHg (75-108) Arterial Blood HCO3 35 mmol/L (21-28) Arterial Blood Base Excess 10 mmol/L (-3-3) FiO2 80 Test 9/16/19 00:26 03/23/19 06:07 03/23/19 06:15 Glucose (Fingerstick) 143 mg/dL (70-99) 132 mg/dL (70-99) White Blood Count 10.7 x10^3/uL (4.0-11.0) Red Blood Count 5.47 x10^6/uL (4.30-5.70) Hemoglobin 13.3 g/dL (13.0-17.5) Hematocrit 42.4 % (39.0-53.0) Mean Corpuscular Volume 78 fL (79-100) Mean Corpuscular Hemoglobin 24 pg (25-35) Mean Corpuscular Hemoglobin Concent 31 g/dL (31-37) Red Cell Distribution Width 18.3 % (11.5-14.5) Platelet Count 331 x10^3/uL (140-400) Neutrophils (%) (Auto) 92 % (31-73) Lymphocytes (%) (Auto) 3 % (24-48) Monocytes (%) (Auto) 5 % (0-9) Eosinophils (%) (Auto) 0 % (0-3) Basophils (%) (Auto) 0 % (0-3) Neutrophils # (Auto) 9.8 x10^3/uL (1.8-7.7) Lymphocytes # (Auto) 0.3 x10^3/uL (1.0-4.8) Monocytes # (Auto) 0.5 x10^3/uL (0.0-1.1) Eosinophils # (Auto) 0.0 x10^3/uL (0.0-0.7) Basophils # (Auto) 0.0 x10^3/uL (0.0-0.2) Segmented Neutrophils % 88 % (35-66) Lymphocytes % 7 % (24-48) Monocytes % 5 % (0-10) Platelet Estimate Adequate (ADEQUATE) Hypochromasia Slight Anisocytosis Slight Sodium Level 145 mmol/L (136-145) Potassium Level 4.1 mmol/L (3.5-5.1) Chloride Level 103 mmol/L (98-107) Carbon Dioxide Level 38 mmol/L (21-32) Anion Gap 4 (6-14) Blood Urea Nitrogen 80 mg/dL (8-26) Creatinine 1.6 mg/dL (0.7-1.3) Estimated GFR (Cockcroft-Gault) 56.1 Glucose Level 137 mg/dL (70-99) Calcium Level 9.5 mg/dL (8.5-10.1) Phosphorus Level 5.5 mg/dL (2.6-4.7) Magnesium Level 2.2 mg/dL (1.8-2.4) Laboratory Tests Test 03/22/19 12:12 03/22/19 17:38 03/23/19 00:26 03/23/19 06:07 Glucose (Fingerstick) 144 mg/dL (70-99) 135 mg/dL (70-99) 143 mg/dL (70-99) 132 mg/dL (70-99) Test 03/23/19 06:15 White Blood Count 10.7 x10^3/uL (4.0-11.0) Red Blood Count 5.47 x10^6/uL (4.30-5.70) Hemoglobin 13.3 g/dL (13.0-17.5) Hematocrit 42.4 % (39.0-53.0) Mean Corpuscular Volume 78 fL (79-100) Mean Corpuscular Hemoglobin 24 pg (25-35) Mean Corpuscular Hemoglobin Concent 31 g/dL (31-37) Red Cell Distribution Width 18.3 % (11.5-14.5) Platelet Count 331 x10^3/uL (140-400) Neutrophils (%) (Auto) 92 % (31-73) Lymphocytes (%) (Auto) 3 % (24-48) Monocytes (%) (Auto) 5 % (0-9) Eosinophils (%) (Auto) 0 % (0-3) Basophils (%) (Auto) 0 % (0-3) Neutrophils # (Auto) 9.8 x10^3/uL (1.8-7.7) Lymphocytes # (Auto) 0.3 x10^3/uL (1.0-4.8) Monocytes # (Auto) 0.5 x10^3/uL (0.0-1.1) Eosinophils # (Auto) 0.0 x10^3/uL (0.0-0.7) Basophils # (Auto) 0.0 x10^3/uL (0.0-0.2) Segmented Neutrophils % 88 % (35-66) Lymphocytes % 7 % (24-48) Monocytes % 5 % (0-10) Platelet Estimate Adequate (ADEQUATE) Hypochromasia Slight Anisocytosis Slight Sodium Level 145 mmol/L (136-145) Potassium Level 4.1 mmol/L (3.5-5.1) Chloride Level 103 mmol/L (98-107) Carbon Dioxide Level 38 mmol/L (21-32) Anion Gap 4 (6-14) Blood Urea Nitrogen 80 mg/dL (8-26) Creatinine 1.6 mg/dL (0.7-1.3) Estimated GFR (Cockcroft-Gault) 56.1 Glucose Level 137 mg/dL (70-99) Calcium Level 9.5 mg/dL (8.5-10.1) Phosphorus Level 5.5 mg/dL (2.6-4.7) Magnesium Level 2.2 mg/dL (1.8-2.4) Microbiology 03/16/19 - Final, Resulted 03/16/19 - Final, Resulted 03/16/19 - Preliminary, Resulted 03/16/19 - Preliminary, Resulted 03/16/19 - Preliminary, Resulted 03/16/19 - Preliminary, Resulted 03/16/19 Gram Stain Evaluation - Final, Resulted 03/16/19 Sputum Culture - Final, Resulted 03/16/19 Sputum Result 1 - Final, Resulted 03/16/19 Blood Culture - Final, Complete NO GROWTH AFTER 5 DAYS 03/09/19 Urine Culture - Final, Complete 03/09/19 Urine Culture Result 1 (WIL) - Final, Complete Medications Current Medications Albuterol/ Ipratropium (Duoneb) 3 ml 1X ONCE NEB Last administered on 03/09/19at 21:21; Start 03/09/19 at 21:30; Stop 03/09/19 at 21:31; Status DC Dexamethasone Sodium Phosphate (Decadron) 10 mg 1X ONCE IV Last administered on 03/09/19at 22:29; Start 03/09/19 at 22:00; Stop 03/09/19 at 22:01; Status DC Propofol 100 ml @ 0 mls/hr CONT PRN IV SEE PROTOCOL Last administered on 03/10/19at 07:19; Start 03/09/19 at 22:30; Stop 03/10/19 at 07:28; Status DC Fentanyl Citrate (Fentanyl 2ml Vial) 50 mcg PRN Q1HR PRN IV SEE COMMENTS; Start 03/09/19 at 22:30; Stop 03/10/19 at 07:28; Status DC Chlorhexidine Gluconate (Peridex) 15 ml BID MM Last administered on 03/23/19at 08:12; Start 03/10/19 at 09:00 Famotidine (Pepcid Vial) 20 mg BID IVP Last administered on 03/23/19at 08:12; Start 03/10/19 at 09:00 Propofol 50 ml @ As Directed STK-MED ONCE IV ; Start 03/09/19 at 22:28; Stop 03/09/19 at 22:28; Status DC Albuterol/ Ipratropium (Duoneb) 3 ml 1X ONCE NEB Last administered on 03/10/19at 02:04; Start 03/09/19 at 23:00; Stop 03/09/19 at 23:01; Status DC Albuterol/ Ipratropium (Duoneb) 3 ml 1X ONCE NEB Last administered on 03/10/19at 02:04; Start 03/09/19 at 23:00; Stop 03/09/19 at 23:01; Status DC Fentanyl Citrate (Fentanyl 2ml Vial) 100 mcg 1X ONCE IV Last administered on 03/09/19at 23:31; Start 03/09/19 at 23:30; Stop 03/09/19 at 23:31; Status DC Bumetanide (Bumex) 1 mg 1X ONCE IV Last administered on 03/10/19at 00:21; Start 03/10/19 at 00:00; Stop 03/10/19 at 00:01; Status DC Heparin Sodium (Porcine) (Heparin Sodium) 4,000 unit 1X ONCE IV Last administered on 03/10/19at 00:31; Start 03/10/19 at 00:00; Stop 03/10/19 at 00:01; Status DC Heparin Sodium/ Dextrose 500 ml @ 0 mls/hr CONT PRN IV PER PROTOCOL Last administered on 03/10/19at 23:34; Start 03/09/19 at 23:45; Stop 03/11/19 at 16:13; Status DC Heparin Sodium (Porcine) (Heparin Sodium) 5,500 unit PRN Q6HRS PRN IV FOR UFH LEVEL LESS THAN 0.2 Last administered on 03/11/19at 00:57; Start 03/09/19 at 23:45; Stop 03/11/19 at 16:13; Status DC Aspirin (Aspirin Rectal Supp) 300 mg 1X ONCE MA Last administered on 03/10/19at 03:42; Start 03/10/19 at 00:00; Stop 03/10/19 at 00:01; Status DC Propofol 50 ml @ As Directed STK-MED ONCE IV ; Start 03/09/19 at 23:38; Stop 03/09/19 at 23:38; Status DC Propofol 50 ml @ As Directed STK-MED ONCE IV ; Start 03/09/19 at 23:38; Stop 03/09/19 at 23:38; Status DC Piperacillin Sod/ Tazobactam Sod 4.5 gm/Sodium Chloride 100 ml @ 200 mls/hr 1X ONCE IV Last administered on 03/10/19at 05:19; Start 03/10/19 at 00:30; Stop 03/10/19 at 00:59; Status DC Propofol 50 ml @ As Directed STK-MED ONCE IV ; Start 03/10/19 at 00:51; Stop 03/10/19 at 00:51; Status DC Propofol 50 ml @ As Directed STK-MED ONCE IV ; Start 03/10/19 at 01:14; Stop 03/10/19 at 01:15; Status DC Fentanyl Citrate (Fentanyl 2ml Vial) 100 mcg 1X ONCE IV Last administered on 03/10/19at 01:26; Start 03/10/19 at 01:45; Stop 03/10/19 at 01:46; Status DC Clonidine HCl (Catapres) 0.1 mg 1X ONCE PO ; Start 03/10/19 at 01:30; Stop 03/10/19 at 01:34; Status DC Midazolam HCl (Versed) 5 mg 1X ONCE IV Last administered on 03/10/19at 01:28; Start 03/10/19 at 01:30; Stop 03/10/19 at 01:34; Status DC Propofol 50 ml @ As Directed STK-MED ONCE IV ; Start 03/10/19 at 02:08; Stop 03/10/19 at 02:09; Status DC Propofol 50 ml @ As Directed STK-MED ONCE IV ; Start 03/10/19 at 02:36; Stop 03/10/19 at 02:36; Status DC Rocuronium [place] (Zemuron) 50 mg STK-MED ONCE .ROUTE ; Start 03/10/19 at 05:15; Stop 03/10/19 at 05:15; Status DC Etomidate (Amidate) 20 mg STK-MED ONCE IV ; Start 03/10/19 at 05:15; Stop 03/10/19 at 05:16; Status DC Fentanyl Citrate 30 ml @ 0 mls/hr CONT PRN IV SEE PROTOCOL Last administered on 03/23/19at 08:18; Start 03/10/19 at 07:30 Propofol 100 ml @ 0 mls/hr CONT PRN IV SEE PROTOCOL Last administered on 03/23/19at 05:54; Start 03/10/19 at 07:30 Fentanyl Citrate (Fentanyl 2ml Vial) 25 mcg PRN Q1HR PRN IV SEE COMMENTS; Start 03/10/19 at 07:30 Fentanyl Citrate (Fentanyl 2ml Vial) 50 mcg PRN Q1HR PRN IV SEE COMMENTS; Start 03/10/19 at 07:30 Artificial Tears (Artificial Tears) 1 drop PRN Q1HR PRN OU DRY EYE, 1ST CHOICE Last administered on 03/13/19at 13:32; Start 03/10/19 at 07:30 Famotidine (Pepcid Vial) 20 mg BID IVP ; Start 03/10/19 at 09:00; Status UNV Morphine Sulfate (Morphine Sulfate) 2 mg PRN Q1HR PRN IV SEE COMMENTS.; Start 03/10/19 at 07:30 Morphine Sulfate (Morphine Sulfate) 4 mg PRN Q1HR PRN IV SEE COMMENTS.; Start 03/10/19 at 07:30 Midazolam HCl 100 ml @ 0 mls/hr CONT PRN IV SEE PROTOCOL Last administered on 03/23/19at 00:34; Start 03/10/19 at 07:30 Levofloxacin/ Dextrose (Levaquin Per Pharmacy) 1 each PRN DAILY PRN MC SEE COMMENTS; Start 03/10/19 at 08:15; Stop 03/14/19 at 09:25; Status DC Albuterol/ Ipratropium (Duoneb) 3 ml RTQID NEB Last administered on 03/23/19at 07:46; Start 03/10/19 at 12:00 Sodium Chloride 1,000 ml @ 100 mls/hr Q10H IV Last administered on 03/10/19at 23:34; Start 03/10/19 at 08:15; Stop 03/11/19 at 16:02; Status DC Amlodipine Besylate (Norvasc) 5 mg DAILY PO Last administered on 03/10/19at 09:13; Start 03/10/19 at 09:00; Stop 03/10/19 at 10:04; Status DC Hydrochlorothiazide (Hydrodiuril) 25 mg DAILY PO Last administered on 03/10/19at 09:13; Start 03/10/19 at 09:00; Stop 03/10/19 at 10:04; Status DC Lisinopril (Prinivil) 5 mg DAILY PO Last administered on 03/10/19at 09:13; Start 03/10/19 at 09:00; Stop 03/10/19 at 10:04; Status DC Levofloxacin/ Dextrose 100 ml @ 100 mls/hr Q24H IV Last administered on 03/14/19at 08:10; Start 03/10/19 at 09:00; Stop 03/14/19 at 09:25; Status DC Aspirin (Amanda Aspirin) 325 mg 1X ONCE PO Last administered on 03/10/19at 10:55; Start 03/10/19 at 10:30; Stop 03/10/19 at 10:31; Status DC Aspirin (Children'S Aspirin) 81 mg DAILYWBKFT PO Last administered on 03/23/19at 08:13; Start 03/11/19 at 08:00 Amlodipine Besylate (Norvasc) 10 mg DAILY PO Last administered on 03/11/19at 09:37; Start 03/11/19 at 09:00; Stop 03/11/19 at 12:50; Status DC Hydralazine HCl (Apresoline Inj) 10 mg PRN Q4HRS PRN IVP ELEVATED BP, SEE COMMENTS; Start 03/10/19 at 10:15; Stop 03/12/19 at 09:37; Status DC Furosemide (Lasix) 40 mg DAILY IVP Last administered on 03/11/19at 09:37; Start 03/10/19 at 11:00; Stop 03/11/19 at 11:24; Status DC Insulin Human Lispro (HumaLOG) 0-9 UNITS TIDWMEALS SQ ; Start 03/10/19 at 12:00; Stop 03/10/19 at 17:57; Status DC Dextrose (Dextrose 50%-Water Syringe) 12.5 gm PRN Q15MIN PRN IV SEE COMMENTS; Start 03/10/19 at 11:15; Stop 03/12/19 at 16:47; Status DC Dextrose 250 ml PRN Q15MIN PRN IV SEE COMMENTS; Start 03/10/19 at 11:15; Stop 03/10/19 at 11:05; Status DC Iohexol (Omnipaque 350 Mg/ml) 100 ml 1X ONCE IV Last administered on 03/10/19at 14:05; Start 03/10/19 at 11:45; Stop 03/10/19 at 11:47; Status DC Info (CONTRAST GIVEN -- Rx MONITORING) 1 each PRN DAILY PRN MC SEE COMMENTS; Start 03/10/19 at 11:45; Stop 03/12/19 at 11:44; Status DC Piperacillin Sod/ Tazobactam Sod (Zosyn Per Pharmacy) 1 each PRN DAILY PRN MC SEE COMMENTS; Start 03/10/19 at 11:45 Vancomycin HCl (Vanco Per Pharmacy) 1 each PRN DAILY PRN MC SEE COMMENTS Last administered on 03/11/19at 09:42; Start 03/10/19 at 11:45; Stop 03/11/19 at 13:57; Status DC Vancomycin HCl 2 gm/Sodium Chloride 500 ml @ 250 mls/hr 1X ONCE IV Last administered on 03/10/19at 12:41; Start 03/10/19 at 13:00; Stop 03/10/19 at 14:59; Status DC Piperacillin Sod/ Tazobactam Sod 3.375 gm/Sodium Chloride 50 ml @ 100 mls/hr Q6HRS IV Last administered on 03/23/19at 05:54; Start 03/10/19 at 12:30 Vancomycin HCl 1.75 gm/Sodium Chloride 500 ml @ 250 mls/hr Q12H IV Last administered on 03/11/19at 12:43; Start 03/11/19 at 01:00; Stop 03/11/19 at 13:57; Status DC Vancomycin HCl (Vancomycin Trough Level) 1 each 1X ONCE MC ; Start 03/12/19 at 12:30; Stop 03/12/19 at 12:31; Status Cancel Insulin Human Lispro (HumaLOG) 0-9 UNITS Q6HRS SQ ; Start 03/11/19 at 00:00; St op 03/12/19 at 16:14; Status DC Magnesium Sulfate/ Dextrose 100 ml @ 50 mls/hr DAILY IV Last administered on 03/11/19at 09:28; Start 03/11/19 at 09:00; Stop 03/14/19 at 08:59; Status DC Potassium Phosphate 27.2 mmol/Sodium Chloride 259.0667 ml @ 64.753 m... 1X ONCE IV Last administered on 03/11/19at 09:28; Start 03/11/19 at 10:00; Stop 03/11/19 at 14:00; Status DC Potassium Phosphate 27.2 mmol/Sodium Chloride 259.0667 ml @ 64.753 m... 1X ONCE IV ; Start 03/11/19 at 14:00; Stop 03/11/19 at 18:00; Status DC Lorazepam (Ativan Inj) 1 mg PRN Q1HR PRN IV ANXIETY Last administered on 03/14/19at 16:32; Start 03/11/19 at 11:00; Stop 03/19/19 at 10:31; Status DC Sodium Chloride 1,000 ml @ 1,000 mls/hr 1X ONCE IV Last administered on 03/11/19at 12:06; Start 03/11/19 at 11:30; Stop 03/11/19 at 12:29; Status DC Norepinephrine Bitartrate 250 ml @ 27.837 mls/ hr CONT PRN IV SEE I/O RECORD Last administered on 03/13/19at 04:13; Start 03/11/19 at 13:00 Hydralazine HCl (Apresoline Inj) 10 mg PRN Q4HRS PRN IVP ELEVATED BP, SEE CO MMENTS Last administered on 03/22/19at 06:13; Start 03/11/19 at 13:00 Linezolid/Dextrose 300 ml @ 300 mls/hr Q12HR IV Last administered on 03/22/19at 21:38; Start 03/11/19 at 21:00; Stop 03/23/19 at 07:48; Status DC Potassium Chloride/Water 50 ml @ 50 mls/hr Q1H IV Last administered on 03/11/19at 17:28; Start 03/11/19 at 16:00; Stop 03/11/19 at 17:59; Status DC Heparin Sodium (Porcine) (Heparin Sodium) 5,000 unit Q8HRS SQ Last administered on 03/23/19at 05:54; Start 03/11/19 at 22:00 Multi-Ingred Cream/Lotion/Oil/ Oint (Artificial Tears Eye Ointment) 1 zuri PRN Q1HR PRN OU DRY EYE; Start 03/12/19 at 09:00 Potassium Chloride/Water 50 ml @ 50 mls/hr 1X ONCE IV Last administered on 03/12/19at 09:44; Start 03/12/19 at 10:00; Stop 03/12/19 at 10:59; Status DC Potassium Chloride/Water 50 ml @ 50 mls/hr 1X ONCE IV ; Start 03/12/19 at 10:30; Stop 03/12/19 at 11:31; Status DC Insulin Human Lispro (HumaLOG) 0-9 UNITS TIDWMEALS SQ ; Start 03/12/19 at 17:00; Stop 03/12/19 at 16:24; Status DC Dextrose (Dextrose 50%-Water Syringe) 12.5 gm PRN Q15MIN PRN IV SEE COMMENTS; Start 03/12/19 at 16:15 Dextrose 250 ml PRN Q15MIN PRN IV SEE COMMENTS; Start 03/12/19 at 16:15 Insulin Human Lispro (HumaLOG) 0-9 UNITS Q6HRS SQ Last administered on 03/18/19at 18:35; Start 03/12/19 at 18:00 Dexmedetomidine HCl 400 mcg/ Sodium Chloride 100 ml @ 0 mls/hr CONT PRN IV ANXIETY / AGITATION Last administered on 03/21/19at 04:33; Start 03/12/19 at 20:30 Sodium Chloride 500 ml @ 500 mls/hr 1X PRN PRN IV see comments Last administered on 03/12/19at 23:22; Start 03/12/19 at 20:30 Atropine Sulfate (ATROPINE 0.5mg SYRINGE) 0.5 mg PRN Q5MIN PRN IV SEE COMMENTS; Start 03/12/19 at 20:30 Vecuronium [place] (Norcuron Bolus) 10 mg PRN Q1HR PRN IV ON VENT/RESP FAILURE; Start 03/13/19 at 07:30 Perflutren Protein Type A Microsphe (Optison) 0.66 mg STK-MED ONCE IV ; Start 03/13/19 at 09:08; Stop 03/13/19 at 09:08; Status DC Perflutren Protein Type A Microsphe (Optison) 0.66 mg 1X ONCE IV Last administered on 03/13/19at 09:40; Start 03/13/19 at 09:15; Stop 03/13/19 at 09:16; Status DC Furosemide (Lasix) 40 mg 1X ONCE IVP Last administered on 03/13/19at 13:32; Start 03/13/19 at 10:30; Stop 03/13/19 at 10:31; Status DC Daptomycin 1320 mg/Sodium Chloride 50 ml @ 100 mls/hr ONCE ONCE IV Last administered on 03/15/19at 13:53; Start 03/15/19 at 13:00; Stop 03/16/19 at 09:33; Status DC Daptomycin 1340 mg/Sodium Chloride 50 ml @ 100 mls/hr Q24H IV ; Start 03/16/19 at 08:45; Status UNV Daptomycin 1340 mg/Sodium Chloride 50 ml @ 100 mls/hr Q24H IV ; Start 03/16/19 at 09:00; Status Cancel Daptomycin 830 mg/ Sodium Chloride 50 ml @ 100 mls/hr Q24H IV Last administered on 03/18/19at 15:03; Start 03/16/19 at 14:00; Stop 03/19/19 at 07:41; Status DC Methylprednisolone Sodium Succinate (SOLU-Medrol 125MG VIAL) 100 mg Q8HRS IV Last administered on 03/23/19at 05:54; Start 03/16/19 at 12:00 Furosemide (Lasix) 40 mg 1X ONCE IVP Last administered on 03/16/19at 16:46; Start 03/16/19 at 16:30; Stop 03/16/19 at 16:31; Status DC Fentanyl Citrate (Fentanyl 600 Mcg/30 ml SEARCH PLANNER) 600 mcg STK-MED ONCE IV ; Start 03/13/19 at 17:00; Stop 03/17/19 at 11:02; Status DC Furosemide 100 mg/ Sodium Chloride 100 ml @ 5 mls/hr CONT PRN IV SEE I/O RECORD Last administered on 03/18/19at 00:20; Start 03/17/19 at 15:45; Stop 03/18/19 at 10:36; Status DC Furosemide 100 mg/ Sodium Chloride 100 ml @ 5 mls/hr CONT PRN IV SEE I/O RECORD Last administered on 03/21/19at 08:34; Start 03/18/19 at 10:45; Stop 03/21/19 at 12:57; Status DC Lorazepam (Ativan Inj) 2 mg PRN Q1HR PRN IV ANXIETY Last administered on 03/20/19at 17:11; Start 03/19/19 at 10:45 Lisinopril (Prinivil) 5 mg DAILY PO Last administered on 03/23/19 08:12; Start 03/21/19 at 11:30 Amlodipine Besylate (Norvasc) 10 mg DAILY PO Last administered on 03/23/19 08:12; Start 03/21/19 at 11:30 Furosemide 100 mg/ Sodium Chloride 100 ml @ 10 mls/hr CONT PRN IV SEE I/O RECORD Last administered on 03/22/19at 05:05; Start 03/21/19 at 16:00; Stop 03/22/19 at 12:39; Status DC Scopolamine (Transderm-Scop) 1 patch Q3DAYS TD Last administered on 03/22/19at 10:47; Start 03/22/19 at 11:00 Furosemide 100 mg/ Sodium Chloride 100 ml @ 5 mls/hr CONT PRN IV SEE I/O RECORD Last administered on 03/22/19at 21:38; Start 03/22/19 at 12:45 Active Scripts Active Norvasc (Amlodipine Besylate) 5 Mg Tablet 1 Tab PO DAILY Lisinopril 5 Mg Tablet 1 Tab PO DAILY Reported Hydrochlorothiazide Tablet (Hydrochlorothiazide) 25 Mg Tablet 25 Mg PO DAILY Vitals/I & O Vital Sign - Last 24 Hours 03/22/19 03/22/19 03/22/19 03/22/19 09:29 10:00 11:00 11:34 Pulse 83 85 Resp 22 16 16 B/P (MAP) 129/69 (89) 80/43 (55) Pulse Ox 98 97 98 98 O2 Delivery Ventilator O2 Flow Rate 15.0 03/22/19 03/22/19 03/22/19 03/22/19 12:00 12:00 12:31 13:00 Temp 98.2 98.2 Pulse 97 95 Resp 21 17 B/P (MAP) 126/64 (84) 108/62 (77) Pulse Ox 97 96 95 O2 Delivery Mechanical Ventilator Ventilator 03/22/19 03/22/19 03/22/19 03/22/19 14:00 14:39 15:00 15:30 Pulse 95 97 Resp 19 17 16 B/P (MAP) 123/59 (80) 123/55 (77) Pulse Ox 95 95 96 96 O2 Delivery Ventilator Ventilator 03/22/19 03/22/19 03/22/19 03/22/19 15:44 16:00 16:00 17:00 Temp 98.2 98.8 98.2 98.8 Pulse 98 97 Resp 16 17 18 B/P (MAP) 112/52 (72) 141/72 (95) Pulse Ox 97 96 95 O2 Delivery Mechanical Ventilator 03/22/19 03/22/19 03/22/19 03/22/19 18:00 19:00 20:00 20:00 Temp 98.9 98.9 Pulse 99 94 86 Resp 20 16 16 B/P (MAP) 154/72 (99) 125/59 (81) 101/51 (68) Pulse Ox 95 95 96 O2 Delivery Mechanical Ventilator 03/22/19 03/22/19 03/22/19 03/22/19 20:26 20:38 21:00 21:51 Pulse 85 Resp 18 16 16 B/P (MAP) 108/56 (73) Pulse Ox 95 96 97 96 O2 Delivery Ventilator Ventilator Ventilator 03/22/19 03/22/19 03/22/19 03/22/19 22:00 22:00 23:00 23:59 Pulse 81 78 Resp 16 16 B/P (MAP) 105/55 (72) 111/72 (85) Pulse Ox 97 96 97 O2 Delivery Ventilator Mechanical Ventilator 03/23/19 03/23/19 03/23/19 03/23/19 00:08 01:00 01:27 02:00 Temp 98.7 98.7 Pulse 74 77 Resp 16 16 16 B/P (MAP) 111/56 (74) 125/61 (82) Pulse Ox 96 96 96 98 O2 Delivery Ventilator Ventilator 03/23/19 03/23/19 03/23/19 03/23/19 02:13 03:00 04:00 04:00 Temp 97.7 97.7 Pulse 76 68 Resp 16 16 B/P (MAP) 139/65 (89) 100/50 (67) Pulse Ox 98 98 98 O2 Delivery Ventilator Mechanical Ventilator 03/23/19 03/23/19 03/23/19 03/23/19 05:00 05:06 05:12 06:00 Pulse 91 95 Resp 16 16 16 B/P (MAP) 167/85 (112) 175/105 (128) Pulse Ox 98 98 97 96 O2 Delivery Ventilator Ventilator 03/23/19 03/23/19 03/23/19 03/23/19 07:00 07:47 08:00 08:00 Temp 98.6 98.6 Pulse 91 84 Resp 22 16 B/P (MAP) 187/97 (127) 156/84 (108) Pulse Ox 95 97 99 O2 Delivery Ventilator Mechanical Ventilator 03/23/19 03/23/19 03/23/19 03/23/19 08:12 08:12 08:18 09:00 Pulse 84 84 62 Resp 16 16 B/P (MAP) 156/84 156/84 104/57 (73) Pulse Ox 99 98 O2 Delivery Ventilator Intake and Output 03/22/19 03/22/19 03/23/19 14:59 22:59 06:59 Intake Total 400 ml 3623 ml 2618.2 ml Output Total 1925 ml 500 ml 1335 ml Balance -1525 ml 3123 ml 1283.[address] head and cervical spine without contrast 03/10/2019 7:00 AM INDICATION: Altered mental status with history of fall COMPARISON: None available TECHNIQUE: Multiple axial CT images of the head were obtained from skull base through the vertex without intravenous contrast. Multiple axial CT images of the cervical spine were obtained without intravenous contrast. Coronal and sagittal reformats are provided. FINDINGS: Head: Ventricles, sulci and basal cisterns are within normal limits. There is no hydrocephalus. Otero-white matter differentiation is normal. There is no acute intracranial hemorrhage. There is no mass, mass effect or midline shift. Posterior fossa is normal in appearance. Bilateral exophthalmos with the posterior aspects of the globes anterior to the intersegmental hepatic line. There is straightening of the optic nerves with prominence of the retropharyngeal fat. There is moderate mucosal thickening involving the right frontal sinus and bilateral maxillary sinuses, right greater than left. Air-fluid level is noted in the right maxillary sinus. Air-fluid level is noted in the and bilateral sphenoid sinuses. There is near complete desiccation of the right ethmoid air cells and mild mucosal thickening of the left ethmoid air cells.. Mastoid air cells are well aerated. Scalp and calvaria are normal. Patient is intubated. Cervical spine: Evaluation is limited by body habitus. Alignment of the cervical spine is normal. Skull base is intact. Craniocervical junction is normal in appearance. Atlantoaxial articulation is normal. Vertebral body heights are maintained without evidence for acute fracture. Facet joints are within normal limits. No significant osseous neural foraminal stenosis. No significant osseous spinal canal stenosis. Transverse foramen are intact. There is no prevertebral soft tissue swelling. Thyroid gland is normal in appearance. Consolidative changes are identified within the bilateral upper lobes with associated pleural effusions. Patient is intubated with nasogastric tube in place. IMPRESSION: 1. No acute intracranial hemorrhage. 2. Pansinus mucosal inflammatory changes are identified. Correlate with any signs and symptoms of sinusitis. 3. No acute fracture or malalignment of the cervical spine. 4. Bilateral exophthalmos. Consideration may be given for underlying thyroid disorder. LICO HOLGUIN MD Mar 23, 2019 09:30
--- NOTE | 2019-03-23 11:09 | NUR ---
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
--- NOTE | 2019-03-23 11:38 | NUR ---
Procedure: Following complete explanation of the PICC procedure including the indications, risks, and potential complications, informed consent was obtained. The possibility for infection was discussed along with signs, symptoms, and prevention. All the questions were answered. Written and verbal patient education was provided. Hand hygiene performed. Standardized central line checklist was utilized. The patient was placed in the supine position, the arm was prepped with chlorhexidine and patient draped with maximum sterile barrier. 2 mL 1% lidocaine was infiltrated into the skin to provide local anesthesia. A thorough assessment of right upper extremity completed. Using real-time ultrasound guidance and standardized micro puncture set, the basilic vein was punctured and a peel away sheath was placed using the modified Seldinger technique. A tip location device was used to ensure adequate catheter placement. The catheter was secured using a securement device and an antimicrobial patch was applied directly on the insertion site followed by a transparent dressing. All ports withdraw blood and flush without resistance. Patient tolerated the procedure without apparent complication(s). Triple Lumen Power PICC placement successful and uncomplicated. Placement verified by EKG tip confirmation system and/or chest x-ray. Tip located in the CAJ/SVC Complications: None Trimmed at 47cm with 2cm exposed.
--- NOTE | 2019-03-23 11:59 | PDOC ---
PULMONARY PROGRESS NOTES Subjective remains on vent, sedated on fentanyl, versed, and propofol-- on 80% FIO2, 13 of PEEP remains critically ill Vitals Vital Signs Date Time Temp Pulse Resp B/P (MAP) Pulse Ox O2 Delivery O2 Flow Rate FiO2 03/23/19 09:00 62 16 104/57 (73) 98 03/23/19 08:18 Ventilator 03/23/19 07:00 98.6 98.6 03/22/19 09:29 15.0 Comments unable to obtain 2/2 vent/sedation Lungs: Other (decrease bs) Cardiovascular: S1, S2 Abdomen: Soft, Non-tender, Other (obese) Extremities: Other (lymphedema) Skin: Warm Labs Laboratory Tests Test 03/21/19 11:58 03/21/19 18:03 03/22/19 00:07 03/22/19 05:00 Glucose (Fingerstick) 133 mg/dL (70-99) 130 mg/dL (70-99) 143 mg/dL (70-99) White Blood Count 9.0 x10^3/uL (4.0-11.0) Red Blood Count 5.47 x10^6/uL (4.30-5.70) Hemoglobin 13.1 g/dL (13.0-17.5) Hematocrit 42.1 % (39.0-53.0) Mean Corpuscular Volume 77 fL (79-100) Mean Corpuscular Hemoglobin 24 pg (25-35) Mean Corpuscular Hemoglobin Concent 31 g/dL (31-37) Red Cell Distribution Width 18.1 % (11.5-14.5) Platelet Count 282 x10^3/uL (140-400) Neutrophils (%) (Auto) 92 % (31-73) Lymphocytes (%) (Auto) 3 % (24-48) Monocytes (%) (Auto) 5 % (0-9) Eosinophils (%) (Auto) 0 % (0-3) Basophils (%) (Auto) 0 % (0-3) Neutrophils # (Auto) 8.2 x10^3/uL (1.8-7.7) Lymphocytes # (Auto) 0.3 x10^3/uL (1.0-4.8) Monocytes # (Auto) 0.4 x10^3/uL (0.0-1.1) Eosinophils # (Auto) 0.0 x10^3/uL (0.0-0.7) Basophils # (Auto) 0.0 x10^3/uL (0.0-0.2) Sodium Level 144 mmol/L (136-145) Potassium Level 3.7 mmol/L (3.5-5.1) Chloride Level 102 mmol/L (98-107) Carbon Dioxide Level 38 mmol/L (21-32) Anion Gap 4 (6-14) Blood Urea Nitrogen 60 mg/dL (8-26) Creatinine 1.4 mg/dL (0.7-1.3) Estimated GFR (Cockcroft-Gault) 65.4 Glucose Level 137 mg/dL (70-99) Calcium Level 9.5 mg/dL (8.5-10.1) Phosphorus Level 4.4 mg/dL (2.6-4.7) Magnesium Level 2.1 mg/dL (1.8-2.4) Test 03/22/19 05:21 03/22/19 07:00 03/22/19 12:12 03/22/19 17:38 Glucose (Fingerstick) 135 mg/dL (70-99) 144 mg/dL (70-99) 135 mg/dL (70-99) O2 Saturation 94 % (92-99) Arterial Blood pH 7.47 (7.35-7.45) Arterial Blood pCO2 at Patient Temp 49 mmHg (35-46) Arterial Blood pO2 at Patient Temp 65 mmHg (75-108) Arterial Blood HCO3 35 mmol/L (21-28) Arterial Blood Base Excess 10 mmol/L (-3-3) FiO2 80 Test 03/23/19 00:26 03/23/19 06:07 03/23/19 06:15 Glucose (Fingerstick) 143 mg/dL (70-99) 132 mg/dL (70-99) White Blood Count 10.7 x10^3/uL (4.0-11.0) Red Blood Count 5.47 x10^6/uL (4.30-5.70) Hemoglobin 13.3 g/dL (13.0-17.5) Hematocrit 42.4 % (39.0-53.0) Mean Corpuscular Volume 78 fL (79-100) Mean Corpuscular Hemoglobin 24 pg (25-35) Mean Corpuscular Hemoglobin Concent 31 g/dL (31-37) Red Cell Distribution Width 18.3 % (11.5-14.5) Platelet Count 331 x10^3/uL (140-400) Neutrophils (%) (Auto) 92 % (31-73) Lymphocytes (%) (Auto) 3 % (24-48) Monocytes (%) (Auto) 5 % (0-9) Eosinophils (%) (Auto) 0 % (0-3) Basophils (%) (Auto) 0 % (0-3) Neutrophils # (Auto) 9.8 x10^3/uL (1.8-7.7) Lymphocytes # (Auto) 0.3 x10^3/uL (1.0-4.8) Monocytes # (Auto) 0.5 x10^3/uL (0.0-1.1) Eosinophils # (Auto) 0.0 x10^3/uL (0.0-0.7) Basophils # (Auto) 0.0 x10^3/uL (0.0-0.2) Segmented Neutrophils % 88 % (35-66) Lymphocytes % 7 % (24-48) Monocytes % 5 % (0-10) Platelet Estimate Adequate (ADEQUATE) Hypochromasia Slight Anisocytosis Slight Sodium Level 145 mmol/L (136-145) Potassium Level 4.1 mmol/L (3.5-5.1) Chloride Level 103 mmol/L (98-107) Carbon Dioxide Level 38 mmol/L (21-32) Anion Gap 4 (6-14) Blood Urea Nitrogen 80 mg/dL (8-26) Creatinine 1.6 mg/dL (0.7-1.3) Estimated GFR (Cockcroft-Gault) 56.1 Glucose Level 137 mg/dL (70-99) Calcium Level 9.5 mg/dL (8.5-10.1) Phosphorus Level 5.5 mg/dL (2.6-4.7) Magnesium Level 2.2 mg/dL (1.8-2.4) Laboratory Tests Test 03/22/19 12:12 03/22/19 17:38 03/23/19 00:26 03/23/19 06:07 Glucose (Fingerstick) 144 mg/dL (70-99) 135 mg/dL (70-99) 143 mg/dL (70-99) 132 mg/dL (70-99) Test 03/23/19 06:15 White Blood Count 10.7 x10^3/uL (4.0-11.0) Red Blood Count 5.47 x10^6/uL (4.30-5.70) Hemoglobin 13.3 g/dL (13.0-17.5) Hematocrit 42.4 % (39.0-53.0) Mean Corpuscular Volume 78 fL (79-100) Mean Corpuscular Hemoglobin 24 pg (25-35) Mean Corpuscular Hemoglobin Concent 31 g/dL (31-37) Red Cell Distribution Width 18.3 % (11.5-14.5) Platelet Count 331 x10^3/uL (140-400) Neutrophils (%) (Auto) 92 % (31-73) Lymphocytes (%) (Auto) 3 % (24-48) Monocytes (%) (Auto) 5 % (0-9) Eosinophils (%) (Auto) 0 % (0-3) Basophils (%) (Auto) 0 % (0-3) Neutrophils # (Auto) 9.8 x10^3/uL (1.8-7.7) Lymphocytes # (Auto) 0.3 x10^3/uL (1.0-4.8) Monocytes # (Auto) 0.5 x10^3/uL (0.0-1.1) Eosinophils # (Auto) 0.0 x10^3/uL (0.0-0.7) Basophils # (Auto) 0.0 x10^3/uL (0.0-0.2) Segmented Neutrophils % 88 % (35-66) Lymphocytes % 7 % (24-48) Monocytes % 5 % (0-10) Platelet Estimate Adequate (ADEQUATE) Hypochromasia Slight Anisocytosis Slight Sodium Level 145 mmol/L (136-145) Potassium Level 4.1 mmol/L (3.5-5.1) Chloride Level 103 mmol/L (98-107) Carbon Dioxide Level 38 mmol/L (21-32) Anion Gap 4 (6-14) Blood Urea Nitrogen 80 mg/dL (8-26) Creatinine 1.6 mg/dL (0.7-1.3) Estimated GFR (Cockcroft-Gault) 56.1 Glucose Level 137 mg/dL (70-99) Calcium Level 9.5 mg/dL (8.5-10.1) Phosphorus Level 5.5 mg/dL (2.6-4.7) Magnesium Level 2.2 mg/dL (1.8-2.4) Medications Active Scripts Medications Dose Route/Sig Max Daily Dose Days Date Category Hydrochlorothiazide Tablet (Hydrochlorothiazide) 25 Mg Tablet 25 Mg PO DAILY 03/10/19 Reported Norvasc (Amlodipine Besylate) 5 Mg Tablet 1 Tab PO DAILY 01/12/19 Rx Lisinopril 5 Mg Tablet 1 Tab PO DAILY 01/12/19 Rx Comments cxr 03/23 increase right base infiltrate Impression . 1. Acute hypercarbic/hypoxic respiratory Failure 2/2 ARDS due to vapping . 2. Suspected VAP ABX per ID 3.Hypertension (controlled) 4. OSMAN 5. Pulm. HTN PA pressure 55 Normal EF 6. Possible non-ST myocardial infarction. 7. HX. of tobacco use 8. Morbid obesity Plan . 1. Continue with present assist control mode. wean PEEP to 13,%FIO2 80%. titrate fi02 to keep sat 92%, make necessary adjustment based on followup ABGs. cont vent support. Not much room to wean FIO2 today 2. high dose steroids ,initiated 03/16 , start taper, (azotemia) 3. Abx per ID, check all new cultures 4. Monitor fever and white cell count.overall no further fever 5. Continue bronchodilators. 6. Heparin for DVT prophylaxis 7 off lasix drip today due to increase azotemia renal following 8. Remains critically ill, will need tracheostomy and LTACH in future once O2 requirement improves 9. DNR.Continue aggressive supportive care discussed with RN and RT. We will follow along with you. MARIO ALLEN MD Mar 23, 2019 11:59
--- NOTE | 2019-03-23 14:00 | PDOC ---
[facility] [facility] PROGRESS NOTE Chief Complaint Chief Complaint Acute Hypercapnic Respiratory Failure/ARDS due to vaping Pulmonary Edema Bilateral Lung Infiltrates Obstructive sleep apnea OSMAN Increased Troponin Morbid Obesity Pulmonary HTN Tobacco use History of Present Illness History of Present Illness 03/23/19 Pt seen/examined in the ICU Pt is still on ventilation (Vent settings: AC/16/600/80% 13 PEEP) JUANA RN Chart and labs reviewed 03/22/19 Pt seen/examined in the ICU Pt is still on ventilation (Vent settings: AC/16/600/80% 13 PEEP) JUANA RN Chart and labs reviewed Chart Reviewed 03/21/19 Pt seen and examined in the ICU Pt still on ventilation (vent settings: AC/16/600/75% 13 PEEP) JUANA Pulm [employer]ICIAN regarding starting patient on home medications for HTN 9�13�2019 Patient seen and examined in the ICU He is still ventilated AC/16/600/80% 14 PEEP 03/19/19 Pt seen and examined in ICU on vent (vent settings: AC/16/600/85% 14 PEEP) Pt responsive to voice In mitts for pt safety Pt sedated with versed, fentanyl, and precedex Rectal tube intact [place] to BSD Has OG tube to LIS; ET tube placed JUANA RN 03/18/19 Pt seen and examined in ICU on vent (vent settings: AC/16/00/100% 14 PEEP) Pt sedated with versed, fentanyl, and precedex Rectal tube placed [place] to BSD Has OG tube to LIS; ET tube placed JUANA RN Chart reviewed 03/17/19 Pt seen and examined in ICU on vent (AC/16/600/100 14peep) Pt has rectal tube and fontana to BSD Sedated with versed, fentanyl, and precedex Pt has ET tube and OG tube to LIS JUANA RN DW family preservation caseworker Chart reviewed Vitals/I&O Vitals/I&O: Vital Signs Date Time Temp Pulse Resp B/P (MAP) Pulse Ox O2 Delivery O2 Flow Rate FiO2 03/23/19 13:00 65 16 94/45 (61) 95 03/23/19 12:21 Ventilator 03/23/19 11:00 97.9 97.9 03/22/19 09:29 15.0 I & O 03/22/19 03/22/19 03/23/19 15:00 23:00 07:00 Intake Total 400 ml 3623 ml 2618.2 ml Output Total 1660 ml 530 ml 1545 ml Balance -1260 ml 3093 ml 1073.2 ml Physical Exam Physical Exam: GENERAL: Orally intubated/ lightly sedated, eyes open and blinking HEENT: Pupils equal, small. OGT/ETT NECK: Supple LUNGS: dec bs at bases HEART: S1 and S2, regular. ABDOMEN: Obese, soft, +BS : Fontana in place fecal tube in place EXTREMITIES: Trace edema - MITTS SKIN: Chronic stasis dermatitis on the lower extremity. NEUROLOGIC: Sedated RIJ clean General: No acute distress, Other (short neck , Mallampati 4 ON VENT) Heart: Regular rate (SR), Other (distante heart sounds) Lungs: Other (decrease bs) Abdomen: Normal bowel sounds, Soft, No tenderness, No hepatosplenomegaly, No masses Extremities: No clubbing, No cyanosis, No edema, Normal pulses, No tenderness/swelling Skin: No rashes, No breakdown, No significant lesion Labs Labs: Laboratory Tests Test 03/22/19 17:38 03/23/19 00:26 03/23/19 06:07 03/23/19 06:15 Glucose (Fingerstick) 135 mg/dL (70-99) 143 mg/dL (70-99) 132 mg/dL (70-99) White Blood Count 10.7 x10^3/uL (4.0-11.0) Red Blood Count 5.47 x10^6/uL (4.30-5.70) Hemoglobin 13.3 g/dL (13.0-17.5) Hematocrit 42.4 % (39.0-53.0) Mean Corpuscular Volume 78 fL (79-100) Mean Corpuscular Hemoglobin 24 pg (25-35) Mean Corpuscular Hemoglobin Concent 31 g/dL (31-37) Red Cell Distribution Width 18.3 % (11.5-14.5) Platelet Count 331 x10^3/uL (140-400) Neutrophils (%) (Auto) 92 % (31-73) Lymphocytes (%) (Auto) 3 % (24-48) Monocytes (%) (Auto) 5 % (0-9) Eosinophils (%) (Auto) 0 % (0-3) Basophils (%) (Auto) 0 % (0-3) Neutrophils # (Auto) 9.8 x10^3/uL (1.8-7.7) Lymphocytes # (Auto) 0.3 x10^3/uL (1.0-4.8) Monocytes # (Auto) 0.5 x10^3/uL (0.0-1.1) Eosinophils # (Auto) 0.0 x10^3/uL (0.0-0.7) Basophils # (Auto) 0.0 x10^3/uL (0.0-0.2) Segmented Neutrophils % 88 % (35-66) Lymphocytes % 7 % (24-48) Monocytes % 5 % (0-10) Platelet Estimate Adequate (ADEQUATE) Hypochromasia Slight Anisocytosis Slight Sodium Level 145 mmol/L (136-145) Potassium Level 4.1 mmol/L (3.5-5.1) Chloride Level 103 mmol/L (98-107) Carbon Dioxide Level 38 mmol/L (21-32) Anion Gap 4 (6-14) Blood Urea Nitrogen 80 mg/dL (8-26) Creatinine 1.6 mg/dL (0.7-1.3) Estimated GFR (Cockcroft-Gault) 56.1 Glucose Level 137 mg/dL (70-99) Calcium Level 9.5 mg/dL (8.5-10.1) Phosphorus Level 5.5 mg/dL (2.6-4.7) Magnesium Level 2.2 mg/dL (1.8-2.4) Review of Systems Review of Systems: Unable to obtain due to Pt being unconscious Assessment and Plan Assessmemt and Plan Problems Medical Problems: (1) CHF exacerbation Status: Acute (2) COPD exacerbation Status: Acute (3) Hypoxia Status: Acute (4) NSTEMI (non-ST elevated myocardial infarction) Status: Acute (5) Respiratory failure Status: Acute Assessment Acute Hypercapnic Respiratory Failure/ARDS due to vaping Pulmonary Edema Bilateral Lung Infiltrates Obstructive sleep apnea OSMAN Increased Troponin Morbid Obesity Pulmonary HTN Tobacco use Plan ICU monitoring Vent weaning Feed with OG PPN Monitor rectal tube Font[place] to BSD Continue IV Abx (zyvox) Prognosis poor Total time 32 min Comment Review of Relevant I have reviewed the following items peter (where applicable) has been applied. TRICIA NAVA III DO Mar 23, 2019 14:00
--- NOTE | 2019-03-23 14:01 | RAD ---
EXAM: AP View of the chest DATE: 03/23/2019 7:00 AM INDICATION: Intubation COMPARISON: 03/22/2019, 03/21/2019 FINDINGS/ IMPRESSION: Moderate cardiomegaly. Atherosclerotic calcifications of the tortuous aorta are seen. Small bilateral pleural effusions. Bilateral airspace opacities in the mid lungs and lung bases are mildly progressed. No pneumothorax. Electronically signed by: Lawrence Martinez MD (03/23/2019 1:58 PM) [facility]
[2019-03-24] VITALS (25 sets, daily range): BP systolic 89–154; BP diastolic 62–90
[2019-03-24] MEDS: PIPERACILLIN/TAZOBACTAM 3.375 GM in IV NORMAL SALINE 50ML 50 ML IV SCH ×2 (00:03→05:39)
[2019-03-24] MEDS: PROPOFOL 100 ML IV PRN ×6 (00:36→21:37)
[2019-03-24] MEDS: MIDAZOLAM 100mg/100ml NS BAG 100 ML IV PRN ×3 (01:29→22:22)
[2019-03-24] MEDS: methylPREDNISolone SOD SUCC PF 125 MG/2 ML VIAL. IV SCH ×3 (05:40→21:43)
[2019-03-24] MEDS: HEPARIN for SUB-Q USE 5,000 UNIT/ML VIAL. SQ SCH ×3 (05:44→21:36)
[2019-03-24] MEDS: INSULIN LISPRO 300 UNITS/3 ML VIAL. SQ SCH ×4 (06:00→18:00)
[2019-03-24 06:45] LABS: CALCIUM 9.2 mg/dL (8.5-10.1); CREATININE 1.4 mg/dL (0.7-1.3); GFR 65.4; POTASSIUM 4.1 mmol/L (3.5-5.1)
[2019-03-24 07:12] LABS: BASO % 0 % (0-3); EOS % 0 % (0-3); HEMATOCRIT 38.2 % (39.0-53.0); HEMOGLOBIN 11.8 g/dL (13.0-17.5); LYMPH # 0.4 x10^3/uL (1.0-4.8); LYMPH % 4 % (24-48); MEAN CORPUSCULAR HEMOGLOBIN 24 pg (25-35); MEAN CORPUSCULAR HGB CONC 31 g/dL (31-37); MEAN CORPUSCULAR VOLUME 78 fL (79-100); MONO # 0.5 x10^3/uL (0.0-1.1); MONO % 5 % (0-9); NEUT # 8.5 x10^3/uL (1.8-7.7); NEUT % 91 % (31-73); PLATELET COUNT 300 x10^3/uL (140-400); RED BLOOD COUNT 4.88 x10^6/uL (4.30-5.70); RED CELL DISTRIBUTION WIDTH 18.6 % (11.5-14.5); WHITE BLOOD COUNT 9.4 x10^3/uL (4.0-11.0)
--- NOTE | 2019-03-24 07:23 | PDOC ---
Infectious Disease Note Subjective Subjective Orally intubated - sedated no fevers PEEP 13 % and Fi02 80 % d/w RN TSERING CAGLE unable to obtain Vital Sign Vital Signs Vital Signs Date Time Temp Pulse Resp B/P (MAP) Pulse Ox O2 Delivery O2 Flow Rate FiO2 03/24/19 06:05 100 Ventilator 03/24/19 05:00 52 16 121/65 (83) 03/24/19 04:00 97.5 97.5 03/23/19 19:49 15.0 Physical Exam PHYSICAL EXAM GENERAL: Orally intubated/ sedated, HEENT: Pupils equal, small. OGT/ETT NECK: Supple LUNGS: dec bs at bases HEART: S1 and S2, regular. ABDOMEN: Obese, soft, +BS : Ramos in place fecal tube in place EXTREMITIES: Trace edema - MITTS SKIN: Chronic stasis dermatitis on the lower extremity. NEUROLOGIC: Sedated IVS; Old RIJ site clean. RUE - PICC clean Labs Lab Laboratory Tests Test 03/23/19 16:31 03/24/19 00:00 03/24/19 05:56 03/24/19 06:00 Glucose (Fingerstick) 157 mg/dL (70-99) 132 mg/dL (70-99) 138 mg/dL (70-99) Sodium Level 148 mmol/L (136-145) Potassium Level 4.1 mmol/L (3.5-5.1) Chloride Level 107 mmol/L (98-107) Carbon Dioxide Level 39 mmol/L (21-32) Anion Gap 2 (6-14) Blood Urea Nitrogen 75 mg/dL (8-26) Creatinine 1.4 mg/dL (0.7-1.3) Estimated GFR (Cockcroft-Gault) 65.4 Glucose Level 142 mg/dL (70-99) Calcium Level 9.2 mg/dL (8.5-10.1) Micro Microbiology 03/16/19 - Final, Resulted 03/16/19 - Final, Resulted 03/16/19 - Preliminary, Resulted 03/16/19 - Preliminary, Resulted 03/16/19 - Preliminary, Resulted 03/16/19 - Preliminary, Resulted 03/16/19 Gram Stain Evaluation - Final, Resulted 03/16/19 Sputum Culture - Final, Resulted 03/16/19 Sputum Result 1 - Final, Resulted 03/16/19 Blood Culture - Final, Complete NO GROWTH AFTER 5 DAYS 03/09/19 Urine Culture - Final, Complete 03/09/19 Urine Culture Result 1 (NICHO) - Final, Complete Objective Assessment GPC bacteremia (1 of 4 bottles), 03/10, Dermabacter hominis ,likely contaminant, no further nicho available repeat bc neg so far Rhythmic blinking EEG done earlier - no seizure per nursing Acute resp failure, intubated, still requiring high peep PEEP 13 % and Fi02 80 % Pulmonary infiltrates could be from underlying lung injury from vaping, - GPC on gram stain, 03/11 ,not identified legionella ,strep pneu ,mycoplasma neg Leukocytosis - on solumedrol Fever resolved OSMAN - mild increase CHF Super morbid obesity, BMI 61 Vaping Plan Plan of Care Discont Zosyn. 03/10 - 03/24 Discont Zyvox 03/11 - 03/23 D/w nursing Critically ill Overall prognosis poor LUCILA CARDENAS MD Mar 24, 2019 07:23
[2019-03-24] MEDS: IPRATRPIUM/ALBUTEROL 0.5/2.5MG 3 ML NEBU. NEB SCH ×4 (08:23→19:10)
--- NOTE | 2019-03-24 08:32 | PDOC ---
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 ARDS, respiratory failure, COPD Morbid obesity Sepsis Acute renal failure Plan Continue current management No need for anticonvulsants Subjective None Objective Vital Signs Date Time Temp Pulse Resp B/P (MAP) Pulse Ox O2 Delivery O2 Flow Rate FiO2 03/24/19 08:23 100 Ventilator 03/24/19 07:43 16 03/24/19 06:00 55 139/77 (97) 03/24/19 04:00 97.5 97.5 03/23/19 19:49 15.0 Intake and Output 03/24/19 06:59 Intake Total 5284.09 ml Output Total 3870 ml Balance 1414.09 ml IV Total 1596.09 ml Tube Feeding 2688 ml Blood Product 1000 ml Output Urine Total 3870 ml PHYSICAL EXAM Sedated on ventilator, does not open eyes or follow commands PERRL. EOMI. CN: no focal findings. Muscle tone: normal. Muscle strength: moves all extremities DTR: 1+ Plantar reflex: silent Gait: not examined in bed. Sensory exam: no abnormal findings. No cerebellar signs elicited. Review of Relevant I have reviewed the following items peter (where applicable) has been applied. Labs Laboratory Tests Test 03/22/19 12:12 03/22/19 17:38 03/23/19 00:26 03/23/19 06:07 Glucose (Fingerstick) 144 mg/dL (70-99) 135 mg/dL (70-99) 143 mg/dL (70-99) 132 mg/dL (70-99) Test 03/23/19 06:15 03/23/19 16:31 03/24/19 00:00 03/24/19 05:56 White Blood Count 10.7 x10^3/uL (4.0-11.0) Red Blood Count 5.47 x10^6/uL (4.30-5.70) Hemoglobin 13.3 g/dL (13.0-17.5) Hematocrit 42.4 % (39.0-53.0) Mean Corpuscular Volume 78 fL (79-100) Mean Corpuscular Hemoglobin 24 pg (25-35) Mean Corpuscular Hemoglobin Concent 31 g/dL (31-37) Red Cell Distribution Width 18.3 % (11.5-14.5) Platelet Count 331 x10^3/uL (140-400) Neutrophils (%) (Auto) 92 % (31-73) Lymphocytes (%) (Auto) 3 % (24-48) Monocytes (%) (Auto) 5 % (0-9) Eosinophils (%) (Auto) 0 % (0-3) Basophils (%) (Auto) 0 % (0-3) Neutrophils # (Auto) 9.8 x10^3/uL (1.8-7.7) Lymphocytes # (Auto) 0.3 x10^3/uL (1.0-4.8) Monocytes # (Auto) 0.5 x10^3/uL (0.0-1.1) Eosinophils # (Auto) 0.0 x10^3/uL (0.0-0.7) Basophils # (Auto) 0.0 x10^3/uL (0.0-0.2) Segmented Neutrophils % 88 % (35-66) Lymphocytes % 7 % (24-48) Monocytes % 5 % (0-10) Platelet Estimate Adequate (ADEQUATE) Hypochromasia Slight Anisocytosis Slight Sodium Level 145 mmol/L (136-145) Potassium Level 4.1 mmol/L (3.5-5.1) Chloride Level 103 mmol/L (98-107) Carbon Dioxide Level 38 mmol/L (21-32) Anion Gap 4 (6-14) Blood Urea Nitrogen 80 mg/dL (8-26) Creatinine 1.6 mg/dL (0.7-1.3) Estimated GFR (Cockcroft-Gault) 56.1 Glucose Level 137 mg/dL (70-99) Calcium Level 9.5 mg/dL (8.5-10.1) Phosphorus Level 5.5 mg/dL (2.6-4.7) Magnesium Level 2.2 mg/dL (1.8-2.4) Glucose (Fingerstick) 157 mg/dL (70-99) 132 mg/dL (70-99) 138 mg/dL (70-99) Test 03/24/19 06:00 White Blood Count 9.4 x10^3/uL (4.0-11.0) Red Blood Count 4.88 x10^6/uL (4.30-5.70) Hemoglobin 11.8 g/dL (13.0-17.5) Hematocrit 38.2 % (39.0-53.0) Mean Corpuscular Volume 78 fL (79-100) Mean Corpuscular Hemoglobin 24 pg (25-35) Mean Corpuscular Hemoglobin Concent 31 g/dL (31-37) Red Cell Distribution Width 18.6 % (11.5-14.5) Platelet Count 300 x10^3/uL (140-400) Neutrophils (%) (Auto) 91 % (31-73) Lymphocytes (%) (Auto) 4 % (24-48) Monocytes (%) (Auto) 5 % (0-9) Eosinophils (%) (Auto) 0 % (0-3) Basophils (%) (Auto) 0 % (0-3) Neutrophils # (Auto) 8.5 x10^3/uL (1.8-7.7) Lymphocytes # (Auto) 0.4 x10^3/uL (1.0-4.8) Monocytes # (Auto) 0.5 x10^3/uL (0.0-1.1) Eosinophils # (Auto) 0.0 x10^3/uL (0.0-0.7) Basophils # (Auto) 0.0 x10^3/uL (0.0-0.2) Sodium Level 148 mmol/L (136-145) Potassium Level 4.1 mmol/L (3.5-5.1) Chloride Level 107 mmol/L (98-107) Carbon Dioxide Level 39 mmol/L (21-32) Anion Gap 2 (6-14) Blood Urea Nitrogen 75 mg/dL (8-26) Creatinine 1.4 mg/dL (0.7-1.3) Estimated GFR (Cockcroft-Gault) 65.4 Glucose Level 142 mg/dL (70-99) Calcium Level 9.2 mg/dL (8.5-10.1) Laboratory Tests Test 03/23/19 16:31 03/24/19 00:00 03/24/19 05:56 03/24/19 06:00 Glucose (Fingerstick) 157 mg/dL (70-99) 132 mg/dL (70-99) 138 mg/dL (70-99) White Blood Count 9.4 x10^3/uL (4.0-11.0) Red Blood Count 4.88 x10^6/uL (4.30-5.70) Hemoglobin 11.8 g/dL (13.0-17.5) Hematocrit 38.2 % (39.0-53.0) Mean Corpuscular Volume 78 fL (79-100) Mean Corpuscular Hemoglobin 24 pg (25-35) Mean Corpuscular Hemoglobin Concent 31 g/dL (31-37) Red Cell Distribution Width 18.6 % (11.5-14.5) Platelet Count 300 x10^3/uL (140-400) Neutrophils (%) (Auto) 91 % (31-73) Lymphocytes (%) (Auto) 4 % (24-48) Monocytes (%) (Auto) 5 % (0-9) Eosinophils (%) (Auto) 0 % (0-3) Basophils (%) (Auto) 0 % (0-3) Neutrophils # (Auto) 8.5 x10^3/uL (1.8-7.7) Lymphocytes # (Auto) 0.4 x10^3/uL (1.0-4.8) Monocytes # (Auto) 0.5 x10^3/uL (0.0-1.1) Eosinophils # (Auto) 0.0 x10^3/uL (0.0-0.7) Basophils # (Auto) 0.0 x10^3/uL (0.0-0.2) Sodium Level 148 mmol/L (136-145) Potassium Level 4.1 mmol/L (3.5-5.1) Chloride Level 107 mmol/L (98-107) Carbon Dioxide Level 39 mmol/L (21-32) Anion Gap 2 (6-14) Blood Urea Nitrogen 75 mg/dL (8-26) Creatinine 1.4 mg/dL (0.7-1.3) Estimated GFR (Cockcroft-Gault) 65.4 Glucose Level 142 mg/dL (70-99) Calcium Level 9.2 mg/dL (8.5-10.1) Microbiology 03/16/19 - Final, Complete 03/16/19 - Final, Complete 03/16/19 Gram Stain Evaluation - Final, Complete 03/16/19 Sputum Culture - Final, Complete 03/16/19 Sputum Result 1 - Final, Complete 03/16/19 Blood Culture - Final, Complete NO GROWTH AFTER 5 DAYS 03/09/19 Urine Culture - Final, Complete 03/09/19 Urine Culture Result 1 (WIL) - Final, Complete Medications Current Medications Albuterol/ Ipratropium (Duoneb) 3 ml 1X ONCE NEB Last administered on 03/09/19at 21:21; Start 03/09/19 at 21:30; Stop 03/09/19 at 21:31; Status DC Dexamethasone Sodium Phosphate (Decadron) 10 mg 1X ONCE IV Last administered on 03/09/19at 22:29; Start 03/09/19 at 22:00; Stop 03/09/19 at 22:01; Status DC Propofol 100 ml @ 0 mls/hr CONT PRN IV SEE PROTOCOL Last administered on 03/10/19at 07:19; Start 03/09/19 at 22:30; Stop 03/10/19 at 07:28; Status DC Fentanyl Citrate (Fentanyl 2ml Vial) 50 mcg PRN Q1HR PRN IV SEE COMMENTS; S tart 03/09/19 at 22:30; Stop 03/10/19 at 07:28; Status DC Chlorhexidine Gluconate (Peridex) 15 ml BID MM Last administered on 03/23/19at 22:08; Start 03/10/19 at 09:00 Famotidine (Pepcid Vial) 20 mg BID IVP Last administered on 03/23/19at 22:08; Start 03/10/19 at 09:00 Propofol 50 ml @ As Directed STK-MED ONCE IV ; Start 03/09/19 at 22:28; Stop 03/09/19 at 22:28; Status DC Albuterol/ Ipratropium (Duoneb) 3 ml 1X ONCE NEB Last administered on 03/10/19at 02:04; Start 03/09/19 at 23:00; Stop 03/09/19 at 23:01; Status DC Albuterol/ Ipratropium (Duoneb) 3 ml 1X ONCE NEB Last administered on 03/10/19at 02:04; Start 03/09/19 at 23:00; Stop 03/09/19 at 23:01; Status DC Fentanyl Citrate (Fentanyl 2ml Vial) 100 mcg 1X ONCE IV Last administered on 03/09/19at 23:31; Start 03/09/19 at 23:30; Stop 03/09/19 at 23:31; Status DC Bumetanide (Bumex) 1 mg 1X ONCE IV Last administered on 03/10/19at 00:21; Start 03/10/19 at 00:00; Stop 03/10/19 at 00:01; Status DC Heparin Sodium (Porcine) (Heparin Sodium) 4,000 unit 1X ONCE IV Last admin istered on 03/10/19at 00:31; Start 03/10/19 at 00:00; Stop 03/10/19 at 00:01; Status DC Heparin Sodium/ Dextrose 500 ml @ 0 mls/hr CONT PRN IV PER PROTOCOL Last administered on 03/10/19at 23:34; Start 03/09/19 at 23:45; Stop 03/11/19 at 16:13; Status DC Heparin Sodium (Porcine) (Heparin Sodium) 5,500 unit PRN Q6HRS PRN IV FOR UFH LEVEL LESS THAN 0.2 Last administered on 03/11/19at 00:57; Start 03/09/19 at 23:45; Stop 03/11/19 at 16:13; Status DC Aspirin (Aspirin Rectal Supp) 300 mg 1X ONCE [place] Last administered on 03/10/19at 03:42; Start 03/10/19 at 00:00; Stop 03/10/19 at 00:01; Status DC Propofol 50 ml @ As Directed STK-MED ONCE IV ; Start 03/09/19 at 23:38; Stop 03/09/19 at 23:38; Status DC Propofol 50 ml @ As Directed STK-MED ONCE IV ; Start 03/09/19 at 23:38; Stop 03/09/19 at 23:38; Status DC Piperacillin Sod/ Tazobactam Sod 4.5 gm/Sodium Chloride 100 ml @ 200 mls/hr 1X ONCE IV Last administered on 03/10/19at 05:19; Start 03/10/19 at 00:30; Stop 03/10/19 at 00:59; Status DC Propofol 50 ml @ As Directed STK-MED ONCE IV ; Start 03/10/19 at 00:51; Stop 03/10/19 at 00:51; Status DC Propofol 50 ml @ As Directed STK-MED ONCE IV ; Start 03/10/19 at 01:14; Stop 03/10/19 at 01:15; Status DC Fentanyl Citrate (Fentanyl 2ml Vial) 100 mcg 1X ONCE IV Last administered on 03/10/19at 01:26; Start 03/10/19 at 01:45; Stop 03/10/19 at 01:46; Status DC Clonidine HCl (Catapres) 0.1 mg 1X ONCE PO ; Start 03/10/19 at 01:30; Stop 03/10/19 at 01:34; Status DC Midazolam HCl (Versed) 5 mg 1X ONCE IV Last administered on 03/10/19at 01:28; Start 03/10/19 at 01:30; Stop 03/10/19 at 01:34; Status DC Propofol 50 ml @ As Directed STK-MED ONCE IV ; Start 03/10/19 at 02:08; Stop at 02:09; Status DC Propofol 50 ml @ As Directed STK-MED ONCE IV ; Start 03/10/19 at 02:36; Stop 03/10/19 at 02:36; Status DC Rocuronium Joes (Zemuron) 50 mg STK-MED ONCE .ROUTE ; Start 03/10/19 at 05:15; Stop 03/10/19 at 05:15; Status DC Etomidate (Amidate) 20 mg STK-MED ONCE IV ; Start 03/10/19 at 05:15; Stop 03/10/19 at 05:16; Status DC Fentanyl Citrate 30 ml @ 0 mls/hr CONT PRN IV SEE PROTOCOL Last administered on 03/24/19at 07:43; Start 03/10/19 at 07:30 Propofol 100 ml @ 0 mls/hr CONT PRN IV SEE PROTOCOL Last administered on 03/24/19at 05:45; Start 03/10/19 at 07:30 Fentanyl Citrate (Fentanyl 2ml Vial) 25 mcg PRN Q1HR PRN IV SEE COMMENTS; Start 03/10/19 at 07:30 Fentanyl Citrate (Fentanyl 2ml Vial) 50 mcg PRN Q1HR PRN IV SEE COMMENTS; Start 03/10/19 at 07:30 Artificial Tears (Artificial Tears) 1 drop PRN Q1HR PRN OU DRY EYE, 1ST CHOICE Last administered on 03/13/19at 13:32; Start 03/10/19 at 07:30 Famotidine (Pepcid Vial) 20 mg BID IVP ; Start 03/10/19 at 09:00; Status UNV Morphine Sulfate (Morphine Sulfate) 2 mg PRN Q1HR PRN IV SEE COMMENTS.; Start 03/10/19 at 07:30 Morphine Sulfate (Morphine Sulfate) 4 mg PRN Q1HR PRN IV SEE COMMENTS.; Start 03/10/19 at 07:30 Midazolam HCl 100 ml @ 0 mls/hr CONT PRN IV SEE PROTOCOL Last administered on 03/24/19at 01:31; Start 03/10/19 at 07:30 Levofloxacin/ Dextrose (Levaquin Per Pharmacy) 1 each PRN DAILY PRN MC SEE COMMENTS; Start 03/10/19 at 08:15; Stop 03/14/19 at 09:25; Status DC Albuterol/ Ipratropium (Duoneb) 3 ml RTQID NEB Last administered on 03/24/19at 08:23; Start 03/10/19 at 12:00 Sodium Chloride 1,000 ml @ 100 mls/hr Q10H IV Last administered on 03/10/19at 23:34; Start 03/10/19 at 08:15; Stop 03/11/19 at 16:02; Status DC Amlodipine Besylate (Norvasc) 5 mg DAILY PO Last administered on 03/10/19at 09:13; Start 03/10/19 at 09:00; Stop 03/10/19 at 10:04; Status DC Hydrochlorothiazide (Hydrodiuril) 25 mg DAILY PO Last administered on 03/10/19at 09:13; Start 03/10/19 at 09:00; Stop 03/10/19 at 10:04; Status DC Lisinopril (Prinivil) 5 mg DAILY PO Last administered on 03/10/19at 09:13; Start 03/10/19 at 09:00; Stop 03/10/19 at 10:04; Status DC Levofloxacin/ Dextrose 100 ml @ 100 mls/hr Q24H IV Last administered on 03/14/19at 08:10; Start 03/10/19 at 09:00; Stop 03/14/19 at 09:25; Status DC Aspirin (Amanda Aspirin) 325 mg 1X ONCE PO Last administered on 03/10/19at 10:55; Start 03/10/19 at 10:30; Stop 03/10/19 at 10:31; Status DC Aspirin (Children'S Aspirin) 81 mg DAILYWBKFT PO Last administered on 03/23/19at 08:13; Start 03/11/19 at 08:00 Amlodipine Besylate (Norvasc) 10 mg DAILY PO Last administered on 03/11/19at 09:37; Start 03/11/19 at 09:00; Stop 03/11/19 at 12:50; Status DC Hydralazine HCl (Apresoline Inj) 10 mg PRN Q4HRS PRN IVP ELEVATED BP, SEE COMMENTS; Start 03/10/19 at 10:15; Stop 03/12/19 at 09:37; Status DC Furosemide (Lasix) 40 mg DAILY IVP Last administered on 03/11/19at 09:37; Start 03/10/19 at 11:00; Stop 03/11/19 at 11:24; Status DC Insulin Human Lispro (HumaLOG) 0-9 UNITS TIDWMEALS SQ ; Start 03/10/19 at 12:00; Stop 03/10/19 at 17:57; Status DC Dextrose (Dextrose 50%-Water Syringe) 12.5 gm PRN Q15MIN PRN IV SEE COMMENTS; Start 03/10/19 at 11:15; Stop 03/12/19 at 16:47; Status DC Dextrose 250 ml PRN Q15MIN PRN IV SEE COMMENTS; Start 03/10/19 at 11:15; Stop 03/10/19 at 11:05; Status DC Iohexol (Omnipaque 350 Mg/ml) 100 ml 1X ONCE IV Last administered on 03/10/19at 14:05; Start 03/10/19 at 11:45; Stop 03/10/19 at 11:47; Status DC Info (CONTRAST GIVEN -- Rx MONITORING) 1 each PRN DAILY PRN MC SEE COMMENTS; Start 03/10/19 at 11:45; Stop 03/12/19 at 11:44; Status DC Piperacillin Sod/ Tazobactam Sod (Zosyn Per Pharmacy) 1 each PRN DAILY PRN MC SEE COMMENTS; Start 03/10/19 at 11:45 Vancomycin HCl (Vanco Per Pharmacy) 1 each PRN DAILY PRN MC SEE COMMENTS Last administered on 03/11/19at 09:42; Start 03/10/19 at 11:45; Stop 03/11/19 at 13:57; Status DC Vancomycin HCl 2 gm/Sodium Chloride 500 ml @ 250 mls/hr 1X ONCE IV Last administered on 03/10/19at 12:41; Start 03/10/19 at 13:00; Stop 03/10/19 at 14:59; Status DC Piperacillin Sod/ Tazobactam Sod 3.375 gm/Sodium Chloride 50 ml @ 100 mls/hr Q6HRS IV Last administered on 03/24/19at 05:45; Start 03/10/19 at 12:30; Stop 03/24/19 at 07:24; Status DC Vancomycin HCl 1.75 gm/Sodium Chloride 500 ml @ 250 mls/hr Q12H IV Last administered on 03/11/19at 12:43; Start 03/11/19 at 01:00; Stop 03/11/19 at 13:57; Status DC Vancomycin HCl (Vancomycin Trough Level) 1 each 1X ONCE MC ; Start 03/12/19 at 12:30; Stop 03/12/19 at 12:31; Status Cancel Insulin Human Lispro (HumaLOG) 0-9 UNITS Q6HRS SQ ; Start 03/11/19 at 00:00; Stop 03/12/19 at 16:14; Status DC Magnesium Sulfate/ Dextrose 100 ml @ 50 mls/hr DAILY IV Last administered on 03/11/19at 09:28; Start 03/11/19 at 09:00; Stop 03/14/19 at 08:59; Status DC Potassium Phosphate 27.2 mmol/Sodium Chloride 259.0667 ml @ 64.753 m... 1X ONCE IV Last administered on 03/11/19at 09:28; Start 03/11/19 at 10:00; Stop 03/11/19 at 14:00; Status DC Potassium Phosphate 27.2 mmol/Sodium Chloride 259.0667 ml @ 64.753 m... 1X ONCE IV ; Start 03/11/19 at 14:00; Stop 03/11/19 at 18:00; Status DC Lorazepam (Ativan Inj) 1 mg PRN Q1HR PRN IV ANXIETY Last administered on 03/14/19at 16:32; Start 03/11/19 at 11:00; Stop 03/19/19 at 10:31; Status DC Sodium Chloride 1,000 ml @ 1,000 mls/hr 1X ONCE IV Last administered on 03/11/19at 12:06; Start 03/11/19 at 11:30; Stop 03/11/19 at 12:29; Status DC Norepinephrine Bitartrate 250 ml @ 27.837 mls/ hr CONT PRN IV SEE I/O RECORD Last administered on 03/13/19at 04:13; Start 03/11/19 at 13:00 Hydralazine HCl (Apresoline Inj) 10 mg PRN Q4HRS PRN IVP ELEVATED BP, SEE COMMENTS Last administered on 03/22/19at 06:13; Start 03/11/19 at 13:00 Linezolid/Dextrose 300 ml @ 300 mls/hr Q12HR IV Last administered on 03/22/19at 21:38; Start 03/11/19 at 21:00; Stop 03/23/19 at 07:48; Status DC Potassium Chloride/Water 50 ml @ 50 mls/hr Q1H IV Last administered on 03/11/19at 17:28; Start 03/11/19 at 16:00; Stop 03/11/19 at 17:59; Status DC Heparin Sodium (Porcine) (Heparin Sodium) 5,000 unit Q8HRS SQ Last administered on 03/24/19at 05:45; Start 03/11/19 at 22:00 Multi-Ingred Cream/Lotion/Oil/ Oint (Artificial Tears Eye Ointment) 1 zuri PRN Q1HR PRN OU DRY EYE; Start 03/12/19 at 09:00 Potassium Chloride/Water 50 ml @ 50 mls/hr 1X ONCE IV Last administered on 03/12/19at 09:44; Start 03/12/19 at 10:00; Stop 03/12/19 at 10:59; Status DC Potassium Chloride/Water 50 ml @ 50 mls/hr 1X ONCE IV ; Start 03/12/19 at 10:30; Stop 03/12/19 at 11:31; Status DC Insulin Human Lispro (HumaLOG) 0-9 UNITS TIDWMEALS SQ ; Start 03/12/19 at 17:00; Stop 03/12/19 at 16:24; Status DC Dextrose (Dextrose 50%-Water Syringe) 12.5 gm PRN Q15MIN PRN IV SEE COMMENTS; Start 03/12/19 at 16:15 Dextrose 250 ml PRN Q15MIN PRN IV SEE COMMENTS; Start 03/12/19 at 16:15 Insulin Human Lispro (HumaLOG) 0-9 UNITS Q6HRS SQ Last administered on 03/23/19at 16:35; Start 03/12/19 at 18:00 Dexmedetomidine HCl 400 mcg/ Sodium Chloride 100 ml @ 0 mls/hr CONT PRN IV ANXIETY / AGITATION Last administered on 03/21/19at 04:33; Start 03/12/19 at 20:30 Sodium Chloride 500 ml @ 500 mls/hr 1X PRN PRN IV see comments Last administered on 03/12/19at 23:22; Start 03/12/19 at 20:30 Atropine Sulfate (ATROPINE 0.5mg SYRINGE) 0.5 mg PRN Q5MIN PRN IV SEE COMMENTS; Start 03/12/19 at 20:30 Vecuronium Joes (Norcuron Bolus) 10 mg PRN Q1HR PRN IV ON VENT/RESP FAILURE; Start 03/13/19 at 07:30 Perflutren Protein Type A Microsphe (Optison) 0.66 mg STK-MED ONCE IV ; Start 03/13/19 at 09:08; Stop 03/13/19 at 09:08; Status DC Perflutren Protein Type A Microsphe (Optison) 0.66 mg 1X ONCE IV Last administered on 03/13/19at 09:40; Start 03/13/19 at 09:15; Stop 03/13/19 at 09:16; Status DC Furosemide (Lasix) 40 mg 1X ONCE IVP Last administered on 03/13/19at 13:32; Start 03/13/19 at 10:30; Stop 03/13/19 at 10:31; Status DC Daptomycin 1320 mg/Sodium Chloride 50 ml @ 100 mls/hr ONCE ONCE IV Last administered on 03/15/19at 13:53; Start 03/15/19 at 13:00; Stop 03/16/19 at 09:33; Status DC Daptomycin 1340 mg/Sodium Chloride 50 ml @ 100 mls/hr Q24H IV ; Start 03/16/19 at 08:45; Status UNV Daptomycin 1340 mg/Sodium Chloride 50 ml @ 100 mls/hr Q24H IV ; Start 03/16/19 at 09:00; Status Cancel Daptomycin 830 mg/ Sodium Chloride 50 ml @ 100 mls/hr Q24H IV Last administered on 03/18/19at 15:03; Start 03/16/19 at 14:00; Stop 03/19/19 at 07:41; Status DC Methylprednisolone Sodium Succinate (SOLU-Medrol 125MG VIAL) 100 mg Q8HRS IV Last administered on 03/23/19at 05:54; Start 03/16/19 at 12:00; Stop 03/23/19 at 12:03; Status DC Furosemide (Lasix) 40 mg 1X ONCE IVP Last administered on 03/16/19at 16:46; Start 03/16/19 at 16:30; Stop 03/16/19 at 16:31; Status DC Fentanyl Citrate (Fentanyl 600 Mcg/30 ml BUTTING SAW OPERATOR) 600 mcg STK-MED ONCE IV ; Start 03/13/19 at 17:00; Stop 03/17/19 at 11:02; Status DC Furosemide 100 mg/ Sodium Chloride 100 ml @ 5 mls/hr CONT PRN IV SEE I/O RECORD Last administered on 03/18/19at 00:20; Start 03/17/19 at 15:45; Stop 03/18/19 at 10:36; Status DC Furosemide 100 mg/ Sodium Chloride 100 ml @ 5 mls/hr CONT PRN IV SEE I/O RECORD Last administered on 03/21/19at 08:34; Start 03/18/19 at 10:45; Stop 03/21/19 at 12:57; Status DC Lorazepam (Ativan Inj) 2 mg PRN Q1HR PRN IV ANXIETY Last administered on 03/20/19at 17:11; Start 03/19/19 at 10:45 Lisinopril (Prinivil) 5 mg DAILY PO Last administered on 03/23/19at 08:12; Start 03/21/19 at 11:30 Amlodipine Besylate (Norvasc) 10 mg DAILY PO Last administered on 03/23/19at 08:12; Start 03/21/19 at 11:30 Furosemide 100 mg/ Sodium Chloride 100 ml @ 10 mls/hr CONT PRN IV SEE I/O RECORD Last administered on 03/22/19at 05:05; Start 03/21/19 at 16:00; Stop 03/22/19 at 12:39; Status DC Scopolamine (Transderm-Scop) 1 patch Q3DAYS TD Last administered on 03/22/19at 10:47; Start 03/22/19 at 11:00 Furosemide 100 mg/ Sodium Chloride 100 ml @ 5 mls/hr CONT PRN IV SEE I/O RECORD Last administered on 03/22/19at 21:38; Start 03/22/19 at 12:45; Stop 03/23/19 at 17:48; Status DC Methylprednisolone Sodium Succinate (SOLU-Medrol 125MG VIAL) 50 mg Q8HRS IV Last administered on 03/24/19at 05:45; Start 03/23/19 at 14:00 Active Scripts Active Norvasc (Amlodipine Besylate) 5 Mg Tablet 1 Tab PO DAILY Lisinopril 5 Mg Tablet 1 Tab PO DAILY Reported Hydrochlorothiazide Tablet (Hydrochlorothiazide) 25 Mg Tablet 25 Mg PO DAILY Vitals/I & O Vital Sign - Last 24 Hours 03/23/19 03/23/19 03/23/19 03/23/19 09:00 09:30 10:00 11:00 Temp 97.9 97.9 Pulse 62 66 52 Resp 16 16 16 B/P (MAP) 104/57 (73) 114/58 (76) Pulse Ox 98 97 98 98 O2 Delivery Ventilator 03/23/19 03/23/19 03/23/19 03/23/19 12:00 12:00 12:21 13:00 Pulse 66 65 Resp 16 16 B/P (MAP) 94/47 (63) 94/45 (61) Pulse Ox 98 97 95 O2 Delivery Mechanical Ventilator Ventilator 03/23/19 03/23/19 03/23/19 03/23/19 13:55 14:00 15:00 16:00 Pulse 70 62 Resp 16 16 B/P (MAP) 118/55 (76) 113/61 (78) Pulse Ox 96 99 97 O2 Delivery Ventilator Mechanical Ventilator 03/23/19 03/23/19 03/23/19 03/23/19 16:00 16:14 17:00 18:00 Temp 98.7 98.7 Pulse 56 67 66 Resp 16 16 16 B/P (MAP) 100/54 (69) 111/57 (75) 110/96 (101) Pulse Ox 96 97 98 98 O2 Delivery Ventilator 03/23/19 03/23/19 03/23/19 03/23/19 18:04 19:00 19:49 20:00 Pulse 62 Resp 16 16 B/P (MAP) 109/54 (72) Pulse Ox 98 96 98 O2 Delivery Ventilator Mechanical Ventilator O2 Flow Rate 15.0 03/23/19 03/23/19 03/23/19 03/23/19 20:00 20:05 20:57 21:00 Temp 98.1 98.1 Pulse 62 65 Resp 17 16 17 B/P (MAP) 101/50 (67) 115/58 (77) Pulse Ox 99 96 96 99 O2 Delivery Ventilator Ventilator 03/23/19 03/23/19 03/23/19 03/23/19 21:38 22:00 22:57 23:00 Pulse 65 65 Resp 16 16 B/P (MAP) 118/61 (80) 120/66 (84) Pulse Ox 96 100 100 100 O2 Delivery Ventilator Ventilator 03/23/19 03/24/19 03/24/19 03/24/19 23:59 00:01 00:31 01:00 Temp 97.8 97.8 Pulse 61 52 Resp 16 16 B/P (MAP) 134/71 (92) 119/63 (81) Pulse Ox 99 100 99 O2 Delivery Mechanical Ventilator Ventilator 03/24/19 03/24/19 03/24/19 03/24/19 01:31 02:00 02:41 03:00 Pulse 46 47 Resp 16 16 12 16 B/P (MAP) 122/67 (85) 133/67 (89) Pulse Ox 100 100 100 100 O2 Delivery Ventilator Ventilator 03/24/19 03/24/19 03/24/19 03/24/19 03:25 04:00 04:00 05:00 Temp 97.5 97.5 Pulse 49 52 Resp 16 16 B/P (MAP) 130/62 (84) 121/65 (83) Pulse Ox 100 100 100 O2 Delivery Ventilator Mechanical Ventilator 03/24/19 03/24/19 03/24/19 03/24/19 06:00 06:05 07:43 08:04 Pulse 55 Resp 16 16 B/P (MAP) 139/77 (97) Pulse Ox 100 100 100 100 O2 Delivery Ventilator Ventilator Ventilator 03/24/19 08:23 Pulse Ox 100 O2 Delivery Ventilator Intake and Output 03/23/19 03/23/19 03/24/19 14:59 22:59 06:59 Intake Total 550 ml 1290.19 ml 3443.9 ml Output Total 1395 ml 1065 ml 1410 ml Balance -845 ml 225.19 ml 2033.9 ml LICO HOLGUIN MD Mar 24, 2019 08:32
[2019-03-24 08:42] LABS: BASE EXCESS ABG 4 mmol/L (-3-3); HCO3 ABG 30 mmol/L (21-28); PCO2 ABG 49 mmHg (35-46); PO2 ABG 100 mmHg (75-108); SAT O2 ABG 97 % (92-99)
[2019-03-24 08:45] LABS: FIO2 ABG 80
--- NOTE | 2019-03-24 08:46 | RAD ---
Single view of the chest. 03/24/2019 7:00 AM Indication: Ventilatory support Comparison: Chest radiograph, yesterday Findings: There is a new right upper extremity PICC line with tip at the cavoatrial junction. Right internal jugular central line appears to have been removed. Endotracheal tube and enteric tube remain present. Layering pleural effusions are similar. Interstitial and alveolar pulmonary infiltrates are similar. No pneumothorax. No acute osseous changes noted in the interim. IMPRESSION: 1. Right internal jugular central line removed. Right upper extremity PICC line now present 2. Similar appearance of endotracheal tube and enteric tube 3. Small to moderate layering pleural effusions with diffuse interstitial and alveolar infiltrates. Findings most likely represent pulmonary edema. Underlying infectious process not excluded. Electronically signed by: Nikita Vernon MD (03/24/2019 8:43 AM) [id number]
[2019-03-24] MEDS: ASPIRIN CHEWABLE 81 MG TABLET. PO SCH (10:28)
[2019-03-24] MEDS: LISINOPRIL 5 MG TABLET. PO SCH (10:29)
[2019-03-24] MEDS: FAMOTIDINE 20 MG/2 ML VIAL IVP SCH ×2 (10:31→21:43)
[2019-03-24] MEDS: CHLORHEXIDINE 0.12% 15 ML MOUTHWASH. MM SCH ×2 (10:31→21:43)
--- NOTE | 2019-03-24 11:00 | PDOC ---
SUBJECTIVE ROS Stable OBJECTIVE Vital Signs Vital Signs Date Time Temp Pulse Resp B/P (MAP) Pulse Ox O2 Delivery O2 Flow Rate FiO2 03/24/19 10:40 100 03/24/19 10:40 73 127/67 03/24/19 10:00 Ventilator 03/24/19 07:43 16 03/24/19 04:00 97.5 97.5 03/23/19 19:49 15.0 I & 0 Intake and Output 03/24/19 06:59 Intake Total 5284.09 ml Output Total 3870 ml Balance 1414.09 ml IV Total 1596.09 ml Tube Feeding 2688 ml Blood Product 1000 ml Output Urine Total 3870 ml PHYSICAL EXAM Physical Exam GENERAL: Orally intubated HEENT: OGT/ETT NECK: Supple LUNGS: decreased bs at bases HEART: S1 and S2, regular. ABDOMEN: Obese, soft, +BS : Ramos + EXTREMITIES: Trace edema SKIN: , Chronic stasis dermatitis on the lower extremity. NEUROLOGIC: Sedated DIAGNOSIS/ASSESSMENT Assessment & Plan OSMAN- Had resolved , BUN/Creat increasing Better today- Lasix gtt dced 03/23 , hold for now CTA on 03/10 Supportive care, Monitor , Avoid Nephrotoxins CKD stage 2 baseline Cr appears to be 1.2 Acute hypercapnic respiratory - acute lung injury/noncardiogenic pulmonary edema/ ARDS due to vaping vs [id number] right heart failure with worsening hypercapnia. CHF- Per cardiology On IV Lasix gtt- held due to worsening renal function Super morbid Obesity Vaping COMMENT/RELEVANT DATA Meds Current Medications Medications (Trade) Dose Ordered Sig/Stefanie Start Time Stop Time Status Last Admin Dose Admin Albuterol/ Ipratropium (Duoneb) 3 ml RTQID 03/10/19 12:00 03/24/19 08:23 3 ML Amlodipine Besylate (Norvasc) 10 mg DAILY 03/21/19 11:30 03/23/19 08:12 10 MG Artificial Tears (Artificial Tears) 1 drop PRN Q1HR PRN 03/10/19 07:30 03/13/19 13:32 1 DROP Aspirin (Aspirin Rectal Supp) 300 mg 1X ONCE 03/10/19 00:00 03/10/19 00:01 DC 03/10/19 03:42 300 MG Aspirin (Amanda Aspirin) 325 mg 1X ONCE 03/10/19 10:30 03/10/19 10:31 DC 03/10/19 10:55 325 MG Aspirin (Children'S Aspirin) 81 mg DAILYWBKFT 03/11/19 08:00 03/24/19 10:40 81 MG Atropine Sulfate (ATROPINE 0.5mg SYRINGE) 0.5 mg PRN Q5MIN PRN 03/12/19 20:30 Bumetanide (Bumex) 1 mg 1X ONCE 03/10/19 00:00 03/10/19 00:01 DC 03/10/19 00:21 1 MG Chlorhexidine Gluconate (Peridex) 15 ml BID 03/10/19 09:00 03/24/19 10:40 15 ML Clonidine HCl (Catapres) 0.1 mg 1X ONCE 03/10/19 01:30 03/10/19 01:34 DC Daptomycin 1320 mg/Sodium Chloride 50 ml @ 100 mls/hr ONCE ONCE 03/15/19 13:00 03/16/19 09:33 DC 03/15/19 13:53 100 MLS/HR Daptomycin 1340 mg/Sodium Chloride 50 ml @ 100 mls/hr Q24H 03/16/19 09:00 Cancel Daptomycin 830 mg/ Sodium Chloride 50 ml @ 100 mls/hr Q24H 03/16/19 14:00 03/19/19 07:41 DC 03/18/19 15:03 100 MLS/HR Dexamethasone Sodium Phosphate (Decadron) 10 mg 1X ONCE 03/09/19 22:00 03/09/19 22:01 DC 03/09/19 22:29 10 MG Dexmedetomidine HCl 400 mcg/ Sodium Chloride 100 ml @ 0 mls/hr CONT PRN 03/12/19 20:30 03/21/19 04:33 21.7 MLS/HR Dextrose 250 ml PRN Q15MIN PRN 03/12/19 16:15 Dextrose (Dextrose 50%-Water Syringe) 12.5 gm PRN Q15MIN PRN 03/12/19 16:15 Etomidate (Amidate) 20 mg STK-MED ONCE 03/10/19 05:15 03/10/19 05:16 DC Famotidine (Pepcid Vial) 20 mg BID 03/10/19 09:00 UNV Fentanyl Citrate (Fentanyl 2ml Vial) 50 mcg PRN Q1HR PRN 03/10/19 07:30 Fentanyl Citrate (Fentanyl 600 Mcg/30 ml OXIDE FURNACE TENDER) 600 mcg STK-MED ONCE 03/13/19 17:00 03/17/19 11:02 DC Furosemide (Lasix) 40 mg 1X ONCE 03/16/19 16:30 03/16/19 16:31 DC 03/16/19 16:46 40 MG Furosemide 100 mg/ Sodium Chloride 100 ml @ 5 mls/hr CONT PRN 03/22/19 12:45 03/23/19 17:48 DC 03/22/19 21:38 5 MLS/HR Heparin Sodium (Porcine) (Heparin Sodium) 5,000 unit Q8HRS 03/11/19 22:00 03/24/19 05:45 5,000 UNIT Heparin Sodium/ Dextrose 500 ml @ 0 mls/hr CONT PRN 03/09/19 23:45 03/11/19 16:13 DC 03/10/19 23:34 1,300 MLS/HR Hydralazine HCl (Apresoline Inj) 10 mg PRN Q4HRS PRN 03/11/19 13:00 03/22/19 06:13 10 MG Hydrochlorothiazide (Hydrodiuril) 25 mg DAILY 03/10/19 09:00 03/10/19 10:04 DC 03/10/19 09:13 25 MG Info (CONTRAST GIVEN -- Rx MONITORING) 1 each PRN DAILY PRN 03/10/19 11:45 03/12/19 11:44 DC Insulin Human Lispro (HumaLOG) 0-9 UNITS Q6HRS 03/12/19 18:00 03/23/19 16:35 4 UNITS Iohexol (Omnipaque 350 Mg/ml) 100 ml 1X ONCE 03/10/19 11:45 03/10/19 11:47 DC 03/10/19 14:05 100 ML Levofloxacin/ Dextrose 100 ml @ 100 mls/hr Q24H 03/10/19 09:00 03/14/19 09:25 DC 03/14/19 08:10 100 MLS/HR Levofloxacin/ Dextrose (Levaquin Per Pharmacy) 1 each PRN DAILY PRN 03/10/19 08:15 03/14/19 09:25 DC Linezolid/Dextrose 300 ml @ 300 mls/hr Q12HR 03/11/19 21:00 03/23/19 07:48 DC 03/22/19 21:38 300 MLS/HR Lisinopril (Prinivil) 5 mg DAILY 03/21/19 11:30 03/24/19 10:40 5 MG Lorazepam (Ativan Inj) 2 mg PRN Q1HR PRN 03/19/19 10:45 03/20/19 17:11 2 MG Magnesium Sulfate/ Dextrose 100 ml @ 50 mls/hr DAILY 03/11/19 09:00 03/14/19 08:59 DC 03/11/19 09:28 50 MLS/HR Methylprednisolone Sodium Succinate (SOLU-Medrol 125MG VIAL) 50 mg Q8HRS 03/23/19 14:00 03/24/19 05:45 50 MG Midazolam HCl 100 ml @ 0 mls/hr CONT PRN 03/10/19 07:30 03/24/19 01:31 10 MLS/HR Midazolam HCl (Versed) 5 mg 1X ONCE 03/10/19 01:30 03/10/19 01:34 DC 03/10/19 01:28 5 MG Morphine Sulfate (Morphine Sulfate) 4 mg PRN Q1HR PRN 03/10/19 07:30 Multi-Ingred Cream/Lotion/Oil/ Oint (Artificial Tears Eye Ointment) 1 zuri PRN Q1HR PRN 03/12/19 09:00 Norepinephrine Bitartrate 250 ml @ 27.837 mls/ hr CONT PRN 03/11/19 13:00 03/13/19 04:13 1.392 MLS/HR Perflutren Protein Type A Microsphe (Optison) 0.66 mg 1X ONCE 03/13/19 09:15 03/13/19 09:16 DC 03/13/19 09:40 0.66 MG Piperacillin Sod/ Tazobactam Sod (Zosyn Per Pharmacy) 1 each PRN DAILY PRN 03/10/19 11:45 Piperacillin Sod/ Tazobactam Sod 3.375 gm/Sodium Chloride 50 ml @ 100 mls/hr Q6HRS 03/10/19 12:30 03/24/19 07:24 DC 03/24/19 05:45 100 MLS/HR Piperacillin Sod/ Tazobactam Sod 4.5 gm/Sodium Chloride 100 ml @ 200 mls/hr 1X ONCE 03/10/19 00:30 03/10/19 00:59 DC 03/10/19 05:19 200 MLS/HR Potassium Chloride/Water 50 ml @ 50 mls/hr 1X ONCE 03/12/19 10:30 03/12/19 11:31 DC Potassium Phosphate 27.2 mmol/Sodium Chloride 259.0667 ml @ 64.753 m... 1X ONCE 03/11/19 14:00 03/11/19 18:00 DC Propofol 100 ml @ 0 mls/hr CONT PRN 03/10/19 07:30 03/24/19 05:45 39.1 MLS/HR Rocuronium [place] (Zemuron) 50 mg STK-MED ONCE 03/10/19 05:15 03/10/19 05:15 DC Scopolamine (Transderm-Scop) 1 patch Q3DAYS 03/22/19 11:00 03/22/19 10:47 1 PATCH Sodium Chloride 500 ml @ 500 mls/hr 1X PRN PRN 03/12/19 20:30 03/12/19 23:22 500 MLS/HR Vancomycin HCl (Vanco Per Pharmacy) 1 each PRN DAILY PRN 03/10/19 11:45 03/11/19 13:57 DC 03/11/19 09:42 1 EACH Vancomycin HCl (Vancomycin Trough Level) 1 each 1X ONCE 03/12/19 12:30 03/12/19 12:31 Cancel Vancomycin HCl 1.75 gm/Sodium Chloride 500 ml @ 250 mls/hr Q12H 03/11/19 01:00 03/11/19 13:57 DC 03/11/19 12:43 250 MLS/HR Vancomycin HCl 2 gm/Sodium Chloride 500 ml @ 250 mls/hr 1X ONCE 03/10/19 13:00 03/10/19 14:59 DC 03/10/19 12:41 250 MLS/HR Vecuronium [place] (Norcuron Bolus) 10 mg PRN Q1HR PRN 03/13/19 07:30 Lab Laboratory Tests Test 03/23/19 16:31 03/24/19 00:00 03/24/19 05:56 03/24/19 06:00 Glucose (Fingerstick) 157 mg/dL (70-99) 132 mg/dL (70-99) 138 mg/dL (70-99) White Blood Count 9.4 x10^3/uL (4.0-11.0) Red Blood Count 4.88 x10^6/uL (4.30-5.70) Hemoglobin 11.8 g/dL (13.0-17.5) Hematocrit 38.2 % (39.0-53.0) Mean Corpuscular Volume 78 fL (79-100) Mean Corpuscular Hemoglobin 24 pg (25-35) Mean Corpuscular Hemoglobin Concent 31 g/dL (31-37) Red Cell Distribution Width 18.6 % (11.5-14.5) Platelet Count 300 x10^3/uL (140-400) Neutrophils (%) (Auto) 91 % (31-73) Lymphocytes (%) (Auto) 4 % (24-48) Monocytes (%) (Auto) 5 % (0-9) Eosinophils (%) (Auto) 0 % (0-3) Basophils (%) (Auto) 0 % (0-3) Neutrophils # (Auto) 8.5 x10^3/uL (1.8-7.7) Lymphocytes # (Auto) 0.4 x10^3/uL (1.0-4.8) Monocytes # (Auto) 0.5 x10^3/uL (0.0-1.1) Eosinophils # (Auto) 0.0 x10^3/uL (0.0-0.7) Basophils # (Auto) 0.0 x10^3/uL (0.0-0.2) Sodium Level 148 mmol/L (136-145) Potassium Level 4.1 mmol/L (3.5-5.1) Chloride Level 107 mmol/L (98-107) Carbon Dioxide Level 39 mmol/L (21-32) Anion Gap 2 (6-14) Blood Urea Nitrogen 75 mg/dL (8-26) Creatinine 1.4 mg/dL (0.7-1.3) Estimated GFR (Cockcroft-Gault) 65.4 Glucose Level 142 mg/dL (70-99) Calcium Level 9.2 mg/dL (8.5-10.1) Test 03/24/19 08:35 O2 Saturation 97 % (92-99) Arterial Blood pH 7.40 (7.35-7.45) Arterial Blood pCO2 at Patient Temp 49 mmHg (35-46) Arterial Blood pO2 at Patient Temp 100 mmHg (75-108) Arterial Blood HCO3 30 mmol/L (21-28) Arterial Blood Base Excess 4 mmol/L (-3-3) FiO2 80 Results All relevant outside records, renal labs, imaging studies, telemetry/EKG's were reviewed. SARAH GAYTAN MD Mar 24, 2019 11:00
--- NOTE | 2019-03-24 11:39 | PDOC ---
[employer] PROGRESS NOTE Chief Complaint Chief Complaint Acute Hypercapnic Respiratory Failure/ARDS due to vaping Pulmonary Edema Bilateral Lung Infiltrates Obstructive sleep apnea OSMAN Increased Troponin Morbid Obesity Pulmonary HTN Tobacco use History of Present Illness History of Present Illness 03/24/19 Pt seen and examined in the ICU Pt is on ventilation (Vent settings: AC/16/600/70% 13 PEEP) Chart and labs reviewed JUANA RN 03/23/19 Pt seen/examined in the ICU Pt is still on ventilation (Vent settings: AC/16/600/80% 13 PEEP) JUANA RN Chart and labs reviewed 03/22/19 Pt seen/examined in the ICU Pt is still on ventilation (Vent settings: AC/16/600/80% 13 PEEP) JUANA RN Chart and labs reviewed Chart Reviewed 03/21/19 Pt seen and examined in the ICU Pt still on ventilation (vent settings: AC/16/600/75% 13 PEEP) JUANA Pulm MAILROOM CLERK regarding starting patient on home medications for HTN 9�13�2019 Patient seen and examined in the ICU He is still ventilated AC/16/600/80% 14 PEEP 03/19/19 Pt seen and examined in ICU on vent (vent settings: AC/16/600/85% 14 PEEP) Pt responsive to voice In mitts for pt safety Pt sedated with versed, fentanyl, and precedex Rectal tube intact [place] to BSD Has OG tube to LIS; ET tube placed JUANA RN 03/18/19 Pt seen and examined in ICU on vent (vent settings: AC/16/00/100% 14 PEEP) Pt sedated with versed, fentanyl, and precedex Rectal tube placed [place] to BSD Has OG tube to LIS; ET tube placed JUANA RN Chart reviewed 03/17/19 Pt seen and examined in ICU on vent (AC/16/600/100 14peep) Pt has rectal tube and fontana to BSD Sedated with versed, fentanyl, and precedex Pt has ET tube and OG tube to LIS JUANA RN DW rn field case manager Chart reviewed Vitals/I&O Vitals/I&O: Vital Signs Date Time Temp Pulse Resp B/P (MAP) Pulse Ox O2 Delivery O2 Flow Rate FiO2 03/24/19 11:23 97 Ventilator 03/24/19 10:40 73 127/67 03/24/19 07:43 16 03/24/19 04:00 97.5 97.5 03/23/19 19:49 15.0 I & O 03/23/19 03/23/19 03/24/19 14:59 22:59 06:59 Intake Total 550 ml 1290.19 ml 3443.9 ml Output Total 1395 ml 1065 ml 1410 ml Balance -845 ml 225.19 ml 2033.9 ml Physical Exam Physical Exam: GENERAL: Orally intubated/ sedated, HEENT: Pupils equal, small. OGT/ETT NECK: Supple LUNGS: dec bs at bases HEART: S1 and S2, regular. ABDOMEN: Obese, soft, +BS : Font[place] in place fecal tube in place EXTREMITIES: Trace edema - MITTS SKIN: Chronic stasis dermatitis on the lower extremity. NEUROLOGIC: Sedated IVS; Old RIJ site clean. RUE - PICC clean General: No acute distress, Other (short neck , Mallampati 4 ON VENT) Heart: Regular rate (SR), Other (distante heart sounds) Lungs: Other (decrease bs) Abdomen: Normal bowel sounds, Soft, No tenderness, No hepatosplenomegaly, No masses Extremities: No clubbing, No cyanosis, No edema, Normal pulses, No tenderness/swelling Skin: No rashes, No breakdown, No significant lesion Labs Labs: Laboratory Tests Test 03/23/19 16:31 03/24/19 00:00 03/24/19 05:56 03/24/19 06:00 Glucose (Fingerstick) 157 mg/dL (70-99) 132 mg/dL (70-99) 138 mg/dL (70-99) White Blood Count 9.4 x10^3/uL (4.0-11.0) Red Blood Count 4.88 x10^6/uL (4.30-5.70) Hemoglobin 11.8 g/dL (13.0-17.5) Hematocrit 38.2 % (39.0-53.0) Mean Corpuscular Volume 78 fL (79-100) Mean Corpuscular Hemoglobin 24 pg (25-35) Mean Corpuscular Hemoglobin Concent 31 g/dL (31-37) Red Cell Distribution Width 18.6 % (11.5-14.5) Platelet Count 300 x10^3/uL (140-400) Neutrophils (%) (Auto) 91 % (31-73) Lymphocytes (%) (Auto) 4 % (24-48) Monocytes (%) (Auto) 5 % (0-9) Eosinophils (%) (Auto) 0 % (0-3) Basophils (%) (Auto) 0 % (0-3) Neutrophils # (Auto) 8.5 x10^3/uL (1.8-7.7) Lymphocytes # (Auto) 0.4 x10^3/uL (1.0-4.8) Monocytes # (Auto) 0.5 x10^3/uL (0.0-1.1) Eosinophils # (Auto) 0.0 x10^3/uL (0.0-0.7) Basophils # (Auto) 0.0 x10^3/uL (0.0-0.2) Sodium Level 148 mmol/L (136-145) Potassium Level 4.1 mmol/L (3.5-5.1) Chloride Level 107 mmol/L (98-107) Carbon Dioxide Level 39 mmol/L (21-32) Anion Gap 2 (6-14) Blood Urea Nitrogen 75 mg/dL (8-26) Creatinine 1.4 mg/dL (0.7-1.3) Estimated GFR (Cockcroft-Gault) 65.4 Glucose Level 142 mg/dL (70-99) Calcium Level 9.2 mg/dL (8.5-10.1) Test 03/24/19 08:35 O2 Saturation 97 % (92-99) Arterial Blood pH 7.40 (7.35-7.45) Arterial Blood pCO2 at Patient Temp 49 mmHg (35-46) Arterial Blood pO2 at Patient Temp 100 mmHg (75-108) Arterial Blood HCO3 30 mmol/L (21-28) Arterial Blood Base Excess 4 mmol/L (-3-3) FiO2 80 Review of Systems Review of Systems: Pt is unable to contribute due to sedation Assessment and Plan Assessmemt and Plan Problems Medical Problems: (1) CHF exacerbation Status: Acute (2) COPD exacerbation Status: Acute (3) Hypoxia Status: Acute (4) NSTEMI (non-ST elevated myocardial infarction) Status: Acute (5) Respiratory failure Status: Acute Acute Hypercapnic Respiratory Failure/ARDS due to vaping Pulmonary Edema Bilateral Lung Infiltrates Obstructive sleep apnea OSMAN Increased Troponin Morbid Obesity Pulmonary HTN Tobacco use Plan ICU monitoring Vent weaning IV steroids OG feeds PPN Monitor rectal tube [place] to BSD Continue IV Abx (zyvox) Sedated with Versed, Fentanyl, and Propofol Home Meds Lasix drip Prognosis guarded Full Code Total time 33 min Comment Review of Relevant I have reviewed the following items peter (where applicable) has been applied. Medications: Current Medications Medications (Trade) Dose Ordered Sig/Stefanie Route PRN Reason Start Time Stop Time Status Last Admin Dose Admin Methylprednisolone Sodium Succinate (SOLU-Medrol 125MG VIAL) 50 mg Q8HRS IV 03/23/19 14:00 03/24/19 05:45 TRICIA NAVA III DO Mar 24, 2019 11:39
[2019-03-24] MEDS: amLODIPine BESYLATE 10 MG TABLET PO SCH (12:16)
--- NOTE | 2019-03-24 12:30 | PDOC ---
PULMONARY PROGRESS NOTES Subjective remains on vent, sedated on fentanyl, versed, and propofol-- Now on 70% FIO2, 13 of PEEP remains critically ill Vitals Vital Signs Date Time Temp Pulse Resp B/P (MAP) Pulse Ox O2 Delivery O2 Flow Rate FiO2 03/24/19 12:20 16 97 Ventilator 70.0 03/24/19 12:20 68 134/75 03/24/19 04:00 97.5 97.5 Comments unable to obtain 2/2 vent/sedation Lungs: Other (decrease bs) Cardiovascular: S1, S2 Abdomen: Soft, Non-tender, Other (obese) Extremities: Other (lymphedema) Skin: Warm Labs Laboratory Tests Test 03/22/19 17:38 03/23/19 00:26 03/23/19 06:07 03/23/19 06:15 Glucose (Fingerstick) 135 mg/dL (70-99) 143 mg/dL (70-99) 132 mg/dL (70-99) White Blood Count 10.7 x10^3/uL (4.0-11.0) Red Blood Count 5.47 x10^6/uL (4.30-5.70) Hemoglobin 13.3 g/dL (13.0-17.5) Hematocrit 42.4 % (39.0-53.0) Mean Corpuscular Volume 78 fL (79-100) Mean Corpuscular Hemoglobin 24 pg (25-35) Mean Corpuscular Hemoglobin Concent 31 g/dL (31-37) Red Cell Distribution Width 18.3 % (11.5-14.5) Platelet Count 331 x10^3/uL (140-400) Neutrophils (%) (Auto) 92 % (31-73) Lymphocytes (%) (Auto) 3 % (24-48) Monocytes (%) (Auto) 5 % (0-9) Eosinophils (%) (Auto) 0 % (0-3) Basophils (%) (Auto) 0 % (0-3) Neutrophils # (Auto) 9.8 x10^3/uL (1.8-7.7) Lymphocytes # (Auto) 0.3 x10^3/uL (1.0-4.8) Monocytes # (Auto) 0.5 x10^3/uL (0.0-1.1) Eosinophils # (Auto) 0.0 x10^3/uL (0.0-0.7) Basophils # (Auto) 0.0 x10^3/uL (0.0-0.2) Segmented Neutrophils % 88 % (35-66) Lymphocytes % 7 % (24-48) Monocytes % 5 % (0-10) Platelet Estimate Adequate (ADEQUATE) Hypochromasia Slight Anisocytosis Slight Sodium Level 145 mmol/L (136-145) Potassium Level 4.1 mmol/L (3.5-5.1) Chloride Level 103 mmol/L (98-107) Carbon Dioxide Level 38 mmol/L (21-32) Anion Gap 4 (6-14) Blood Urea Nitrogen 80 mg/dL (8-26) Creatinine 1.6 mg/dL (0.7-1.3) Estimated GFR (Cockcroft-Gault) 56.1 Glucose Level 137 mg/dL (70-99) Calcium Level 9.5 mg/dL (8.5-10.1) Phosphorus Level 5.5 mg/dL (2.6-4.7) Magnesium Level 2.2 mg/dL (1.8-2.4) Test 03/23/19 16:31 03/24/19 00:00 03/24/19 05:56 03/24/19 06:00 Glucose (Fingerstick) 157 mg/dL (70-99) 132 mg/dL (70-99) 138 mg/dL (70-99) White Blood Count 9.4 x10^3/uL (4.0-11.0) Red Blood Count 4.88 x10^6/uL (4.30-5.70) Hemoglobin 11.8 g/dL (13.0-17.5) Hematocrit 38.2 % (39.0-53.0) Mean Corpuscular Volume 78 fL (79-100) Mean Corpuscular Hemoglobin 24 pg (25-35) Mean Corpuscular Hemoglobin Concent 31 g/dL (31-37) Red Cell Distribution Width 18.6 % (11.5-14.5) Platelet Count 300 x10^3/uL (140-400) Neutrophils (%) (Auto) 91 % (31-73) Lymphocytes (%) (Auto) 4 % (24-48) Monocytes (%) (Auto) 5 % (0-9) Eosinophils (%) (Auto) 0 % (0-3) Basophils (%) (Auto) 0 % (0-3) Neutrophils # (Auto) 8.5 x10^3/uL (1.8-7.7) Lymphocytes # (Auto) 0.4 x10^3/uL (1.0-4.8) Monocytes # (Auto) 0.5 x10^3/uL (0.0-1.1) Eosinophils # (Auto) 0.0 x10^3/uL (0.0-0.7) Basophils # (Auto) 0.0 x10^3/uL (0.0-0.2) Sodium Level 148 mmol/L (136-145) Potassium Level 4.1 mmol/L (3.5-5.1) Chloride Level 107 mmol/L (98-107) Carbon Dioxide Level 39 mmol/L (21-32) Anion Gap 2 (6-14) Blood Urea Nitrogen 75 mg/dL (8-26) Creatinine 1.4 mg/dL (0.7-1.3) Estimated GFR (Cockcroft-Gault) 65.4 Glucose Level 142 mg/dL (70-99) Calcium Level 9.2 mg/dL (8.5-10.1) Test 03/24/19 08:35 03/24/19 12:04 O2 Saturation 97 % (92-99) Arterial Blood pH 7.40 (7.35-7.45) Arterial Blood pCO2 at Patient Temp 49 mmHg (35-46) Arterial Blood pO2 at Patient Temp 100 mmHg (75-108) Arterial Blood HCO3 30 mmol/L (21-28) Arterial Blood Base Excess 4 mmol/L (-3-3) FiO2 80 Glucose (Fingerstick) 111 mg/dL (70-99) Laboratory Tests Test 03/23/19 16:31 03/24/19 00:00 03/24/19 05:56 03/24/19 06:00 Glucose (Fingerstick) 157 mg/dL (70-99) 132 mg/dL (70-99) 138 mg/dL (70-99) White Blood Count 9.4 x10^3/uL (4.0-11.0) Red Blood Count 4.88 x10^6/uL (4.30-5.70) Hemoglobin 11.8 g/dL (13.0-17.5) Hematocrit 38.2 % (39.0-53.0) Mean Corpuscular Volume 78 fL (79-100) Mean Corpuscular Hemoglobin 24 pg (25-35) Mean Corpuscular Hemoglobin Concent 31 g/dL (31-37) Red Cell Distribution Width 18.6 % (11.5-14.5) Platelet Count 300 x10^3/uL (140-400) Neutrophils (%) (Auto) 91 % (31-73) Lymphocytes (%) (Auto) 4 % (24-48) Monocytes (%) (Auto) 5 % (0-9) Eosinophils (%) (Auto) 0 % (0-3) Basophils (%) (Auto) 0 % (0-3) Neutrophils # (Auto) 8.5 x10^3/uL (1.8-7.7) Lymphocytes # (Auto) 0.4 x10^3/uL (1.0-4.8) Monocytes # (Auto) 0.5 x10^3/uL (0.0-1.1) Eosinophils # (Auto) 0.0 x10^3/uL (0.0-0.7) Basophils # (Auto) 0.0 x10^3/uL (0.0-0.2) Sodium Level 148 mmol/L (136-145) Potassium Level 4.1 mmol/L (3.5-5.1) Chloride Level 107 mmol/L (98-107) Carbon Dioxide Level 39 mmol/L (21-32) Anion Gap 2 (6-14) Blood Urea Nitrogen 75 mg/dL (8-26) Creatinine 1.4 mg/dL (0.7-1.3) Estimated GFR (Cockcroft-Gault) 65.4 Glucose Level 142 mg/dL (70-99) Calcium Level 9.2 mg/dL (8.5-10.1) Test 03/24/19 08:35 03/24/19 12:04 O2 Saturation 97 % (92-99) Arterial Blood pH 7.40 (7.35-7.45) Arterial Blood pCO2 at Patient Temp 49 mmHg (35-46) Arterial Blood pO2 at Patient Temp 100 mmHg (75-108) Arterial Blood HCO3 30 mmol/L (21-28) Arterial Blood Base Excess 4 mmol/L (-3-3) FiO2 80 Glucose (Fingerstick) 111 mg/dL (70-99) Medications Active Scripts Medications Dose Route/Sig Max Daily Dose Days Date Category Hydrochlorothiazide Tablet (Hydrochlorothiazide) 25 Mg Tablet 25 Mg PO DAILY 03/10/19 Reported Norvasc (Amlodipine Besylate) 5 Mg Tablet 1 Tab PO DAILY 01/12/19 Rx Lisinopril 5 Mg Tablet 1 Tab PO DAILY 01/12/19 Rx Comments cxr 03/24 no change Impression . 1. Acute hypercarbic/hypoxic respiratory Failure due to ARDS , vapping related 2. Suspected VAP ABX per ID , stable on Abx 3.Hypertension (controlled) 4. Pre-renal Azotemia 5. Pulm. HTN PA pressure 55 Normal EF 6. Possible non-ST myocardial infarction. 7. HX. of tobacco use 8. Morbid obesity Plan . 1. Continue with present assist control mode. wean PEEP to 12,%FIO2 70%. titrate fi02 to keep sat 92%, make necessary adjustment based on followup ABGs. cont vent support. May be turning the corner 2. high dose steroids ,initiated 03/16 , start taper, (azotemia) 3. Abx per ID, check all new cultures 4. Monitor fever and white cell count.overall no further fever 5. Continue bronchodilators. 6. Heparin for DVT prophylaxis 7 off lasix drip due to increase azotemia .renal following 8. Remains critically ill, will need tracheostomy and LTACH in future once O2 requirement improves 9. DNR.Continue aggressive supportive care discussed with RN and RT. We will follow along with you. MARIO ALLEN MD Mar 24, 2019 12:30
[2019-03-25] VITALS (23 sets, daily range): BP systolic 81–171; BP diastolic 48–96
[2019-03-25] MEDS: PROPOFOL 100 ML IV PRN ×8 (00:01→23:03)
[2019-03-25] MEDS: HEPARIN for SUB-Q USE 5,000 UNIT/ML VIAL. SQ SCH ×3 (05:46→21:26)
[2019-03-25] MEDS: methylPREDNISolone SOD SUCC PF 125 MG/2 ML VIAL. IV SCH ×3 (05:48→21:25)
[2019-03-25] MEDS: INSULIN LISPRO 300 UNITS/3 ML VIAL. SQ SCH ×4 (05:52→17:55)
--- NOTE | 2019-03-25 06:19 | PDOC ---
Infectious Disease Note Subjective Subjective Orally intubated - lightly sedated - opened eyes no fevers PEEP 12 % and Fi02 70 % d/w RN TSERING CAGLE unable to obtain Vital Sign Vital Signs Vital Signs Date Time Temp Pulse Resp B/P (MAP) Pulse Ox O2 Delivery O2 Flow Rate FiO2 03/25/19 05:58 100 Ventilator 03/25/19 05:46 11 70.0 03/25/19 05:00 78 148/74 (98) 03/25/19 04:00 97.9 97.9 Physical Exam PHYSICAL EXAM GENERAL: Orally intubated/ sedated - lightly, HEENT: opened eyes Pupils equal, nml conj OGT/ETT NECK: Supple LUNGS: dec bs at bases HEART: S1 and S2, regular. ABDOMEN: Obese, soft, +BS : Ramos in place fecal tube in place EXTREMITIES: Trace edema - MITTS SKIN: Chronic stasis dermatitis on the lower extremity. NEUROLOGIC: Sedated IVS; Old RIJ site clean. RUE - PICC clean Labs Lab Laboratory Tests Test 03/24/19 08:35 03/24/19 12:04 03/24/19 17:17 03/25/19 00:03 O2 Saturation 97 % (92-99) Arterial Blood pH 7.40 (7.35-7.45) Arterial Blood pCO2 at Patient Temp 49 mmHg (35-46) Arterial Blood pO2 at Patient Temp 100 mmHg (75-108) Arterial Blood HCO3 30 mmol/L (21-28) Arterial Blood Base Excess 4 mmol/L (-3-3) FiO2 80 Glucose (Fingerstick) 111 mg/dL (70-99) 124 mg/dL (70-99) 110 mg/dL (70-99) Micro Microbiology 03/16/19 - Final, Resulted 03/16/19 - Final, Resulted 03/16/19 - Preliminary, Resulted 03/16/19 - Preliminary, Resulted 03/16/19 - Preliminary, Resulted 03/16/19 - Preliminary, Resulted 03/16/19 Gram Stain Evaluation - Final, Resulted 03/16/19 Sputum Culture - Final, Resulted 03/16/19 Sputum Result 1 - Final, Resulted 03/16/19 Blood Culture - Final, Complete NO GROWTH AFTER 5 DAYS 03/09/19 Urine Culture - Final, Complete 03/09/19 Urine Culture Result 1 (NICHO) - Final, Complete Objective Assessment GPC bacteremia (1 of 4 bottles), 03/10, Dermabacter hominis ,likely contaminant, no further nicho available repeat bc neg so far Rhythmic blinking EEG done earlier - no seizure per nursing Acute resp failure, intubated, still requiring high peep but improved to PEEP 12 and Fi02 70 % Pulmonary infiltrates could be from underlying lung injury from vaping, - GPC on gram stain, 03/11 ,not identified legionella ,strep pneu ,mycoplasma neg Leukocytosis - on solumedrol Fever resolved OSMAN - mild increase CHF Super morbid obesity, BMI 61 Vaping Discont Zosyn. 03/10 - 03/24 Discont Zyvox 03/11 - 03/23 Plan Plan of Care Off abx and stable ID to sign off - please call with questions D/w nursing LUCILA ACRDENAS MD Mar 25, 2019 06:19
[2019-03-25] MEDS: IPRATRPIUM/ALBUTEROL 0.5/2.5MG 3 ML NEBU. NEB SCH ×4 (07:56→20:28)
[2019-03-25 08:05] LABS: BASE EXCESS ABG 10 mmol/L (-3-3); HCO3 ABG 37 mmol/L (21-28); PCO2 ABG 59 mmHg (35-46); PO2 ABG 80 mmHg (75-108); SAT O2 ABG 95 % (92-99)
[2019-03-25 08:14] LABS: FIO2 ABG 70
--- NOTE | 2019-03-25 08:31 | PDOC ---
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 ARDS, respiratory failure, COPD Morbid obesity Sepsis Acute renal failure Plan Continue current management No need for anticonvulsants Subjective none Objective Vital Signs Date Time Temp Pulse Resp B/P (MAP) Pulse Ox O2 Delivery O2 Flow Rate FiO2 03/25/19 08:00 98.7 82 16 136/79 (98) 98 Ventilator 98.7 03/25/19 05:46 70.0 Intake and Output 03/25/19 06:59 Intake Total 4034 ml Output Total 3050 ml Balance 984 ml IV Total 1042 ml Tube Feeding 2992 ml Output Urine Total 3050 ml Gastric Drainage Total 0 ml PHYSICAL EXAM Sedated on ventilator, squeezes eyes shut when I try to assess pupils, averts face, does not follow commands Squeezes eyes shut, cannot assess eye movements or pupils CN: no focal findings. Muscle tone: normal. Muscle strength: moves all extremities DTR: 1+ Plantar reflex: silent Gait: not examined in bed. Sensory exam: no abnormal findings. No cerebellar signs elicited. Review of Relevant I have reviewed the following items peter (where applicable) has been applied. Labs Laboratory Tests Test 03/23/19 16:31 03/24/19 00:00 03/24/19 05:56 03/24/19 06:00 Glucose (Fingerstick) 157 mg/dL (70-99) 132 mg/dL (70-99) 138 mg/dL (70-99) White Blood Count 9.4 x10^3/uL (4.0-11.0) Red Blood Count 4.88 x10^6/uL (4.30-5.70) Hemoglobin 11.8 g/dL (13.0-17.5) Hematocrit 38.2 % (39.0-53.0) Mean Corpuscular Volume 78 fL (79-100) Mean Corpuscular Hemoglobin 24 pg (25-35) Mean Corpuscular Hemoglobin Concent 31 g/dL (31-37) Red Cell Distribution Width 18.6 % (11.5-14.5) Platelet Count 300 x10^3/uL (140-400) Neutrophils (%) (Auto) 91 % (31-73) Lymphocytes (%) (Auto) 4 % (24-48) Monocytes (%) (Auto) 5 % (0-9) Eosinophils (%) (Auto) 0 % (0-3) Basophils (%) (Auto) 0 % (0-3) Neutrophils # (Auto) 8.5 x10^3/uL (1.8-7.7) Lymphocytes # (Auto) 0.4 x10^3/uL (1.0-4.8) Monocytes # (Auto) 0.5 x10^3/uL (0.0-1.1) Eosinophils # (Auto) 0.0 x10^3/uL (0.0-0.7) Basophils # (Auto) 0.0 x10^3/uL (0.0-0.2) Sodium Level 148 mmol/L (136-145) Potassium Level 4.1 mmol/L (3.5-5.1) Chloride Level 107 mmol/L (98-107) Carbon Dioxide Level 39 mmol/L (21-32) Anion Gap 2 (6-14) Blood Urea Nitrogen 75 mg/dL (8-26) Creatinine 1.4 mg/dL (0.7-1.3) Estimated GFR (Cockcroft-Gault) 65.4 Glucose Level 142 mg/dL (70-99) Calcium Level 9.2 mg/dL (8.5-10.1) Test 03/24/19 08:35 03/24/19 12:04 03/24/19 17:17 03/25/19 00:03 O2 Saturation 97 % (92-99) Arterial Blood pH 7.40 (7.35-7.45) Arterial Blood pCO2 at Patient Temp 49 mmHg (35-46) Arterial Blood pO2 at Patient Temp 100 mmHg (75-108) Arterial Blood HCO3 30 mmol/L (21-28) Arterial Blood Base Excess 4 mmol/L (-3-3) FiO2 80 Glucose (Fingerstick) 111 mg/dL (70-99) 124 mg/dL (70-99) 110 mg/dL (70-99) Test 03/25/19 08:05 O2 Saturation 95 % (92-99) Arterial Blood pH 7.41 (7.35-7.45) Arterial Blood pCO2 at Patient Temp 59 mmHg (35-46) Arterial Blood pO2 at Patient Temp 80 mmHg (75-108) Arterial Blood HCO3 37 mmol/L (21-28) Arterial Blood Base Excess 10 mmol/L (-3-3) FiO2 70 Laboratory Tests Test 03/24/19 08:35 03/24/19 12:04 03/24/19 17:17 03/25/19 00:03 O2 Saturation 97 % (92-99) Arterial Blood pH 7.40 (7.35-7.45) Arterial Blood pCO2 at Patient Temp 49 mmHg (35-46) Arterial Blood pO2 at Patient Temp 100 mmHg (75-108) Arterial Blood HCO3 30 mmol/L (21-28) Arterial Blood Base Excess 4 mmol/L (-3-3) FiO2 80 Glucose (Fingerstick) 111 mg/dL (70-99) 124 mg/dL (70-99) 110 mg/dL (70-99) Test 03/25/19 08:05 O2 Saturation 95 % (92-99) Arterial Blood pH 7.41 (7.35-7.45) Arterial Blood pCO2 at Patient Temp 59 mmHg (35-46) Arterial Blood pO2 at Patient Temp 80 mmHg (75-108) Arterial Blood HCO3 37 mmol/L (21-28) Arterial Blood Base Excess 10 mmol/L (-3-3) FiO2 70 Microbiology 03/16/19 - Final, Complete 03/16/19 - Final, Complete 03/16/19 Gram Stain Evaluation - Final, Complete 03/16/19 Sputum Culture - Final, Complete 03/16/19 Sputum Result 1 - Final, Complete 03/16/19 Blood Culture - Final, Complete NO GROWTH AFTER 5 DAYS 03/09/19 Urine Culture - Final, Complete 03/09/19 Urine Culture Result 1 (WIL) - Final, Complete Medications Current Medications Albuterol/ Ipratropium (Duoneb) 3 ml 1X ONCE NEB Last administered on 03/09/19at 21:21; Start 03/09/19 at 21:30; Stop 03/09/19 at 21:31; Status DC Dexamethasone Sodium Phosphate (Decadron) 10 mg 1X ONCE IV Last administered on 03/09/19at 22:29; Start 03/09/19 at 22:00; Stop 03/09/19 at 22:01; Status DC Propofol 100 ml @ 0 mls/hr CONT PRN IV SEE PROTOCOL Last administered on 03/10/19at 07:19; Start 03/09/19 at 22:30; Stop 03/10/19 at 07:28; Status DC Fentanyl Citrate (Fentanyl 2ml Vial) 50 mcg PRN Q1HR PRN IV SEE COMMENTS; Start 03/09/19 at 22:30; Stop 03/10/19 at 07:28; Status DC Chlorhexidine Gluconate (Peridex) 15 ml BID MM Last administered on 03/24/19at 21:44; Start 03/10/19 at 09:00 Famotidine (Pepcid Vial) 20 mg BID IVP Last administered on 03/24/19at 21:44; Start 03/10/19 at 09:00 Propofol 50 ml @ As Directed STK-MED ONCE IV ; Start 03/09/19 at 22:28; Stop 03/09/19 at 22:28; Status DC Albuterol/ Ipratropium (Duoneb) 3 ml 1X ONCE NEB Last administered on 03/10/19at 02:04; Start 03/09/19 at 23:00; Stop 03/09/19 at 23:01; Status DC Albuterol/ Ipratropium (Duoneb) 3 ml 1X ONCE NEB Last administered on 03/10/19at 02:04; Start 03/09/19 at 23:00; Stop 03/09/19 at 23:01; Status DC Fentanyl Citrate (Fentanyl 2ml Vial) 100 mcg 1X ONCE IV Last administered on 03/09/19at 23:31; Start 03/09/19 at 23:30; Stop 03/09/19 at 23:31; Status DC Bumetanide (Bumex) 1 mg 1X ONCE IV Last administered on 03/10/19at 00:21; Start 03/10/19 at 00:00; Stop 03/10/19 at 00:01; Status DC Heparin Sodium (Porcine) (Heparin Sodium) 4,000 unit 1X ONCE IV Last adm inistered on 03/10/19at 00:31; Start 03/10/19 at 00:00; Stop 03/10/19 at 00:01; Status DC Heparin Sodium/ Dextrose 500 ml @ 0 mls/hr CONT PRN IV PER PROTOCOL Last administered on 03/10/19at 23:34; Start 03/09/19 at 23:45; Stop 03/11/19 at 16:13; Status DC Heparin Sodium (Porcine) (Heparin Sodium) 5,500 unit PRN Q6HRS PRN IV FOR UFH LEVEL LESS THAN 0.2 Last administered on 03/11/19at 00:57; Start 03/09/19 at 23:45; Stop 03/11/19 at 16:13; Status DC Aspirin (Aspirin Rectal Supp) 300 mg 1X ONCE MD Last administered on 03/10/19at 03:42; Start 03/10/19 at 00:00; Stop 03/10/19 at 00:01; Status DC Propofol 50 ml @ As Directed STK-MED ONCE IV ; Start 03/09/19 at 23:38; Stop 03/09/19 at 23:38; Status DC Propofol 50 ml @ As Directed STK-MED ONCE IV ; Start 03/09/19 at 23:38; Stop 03/09/19 at 23:38; Status DC Piperacillin Sod/ Tazobactam Sod 4.5 gm/Sodium Chloride 100 ml @ 200 mls/hr 1X ONCE IV Last administered on 03/10/19at 05:19; Start 03/10/19 at 00:30; Stop 03/10/19 at 00:59; Status DC Propofol 50 ml @ As Directed STK-MED ONCE IV ; Start 03/10/19 at 00:51; Stop 03/10/19 at 00:51; Status DC Propofol 50 ml @ As Directed STK-MED ONCE IV ; Start 03/10/19 at 01:14; Stop 03/10/19 at 01:15; Status DC Fentanyl Citrate (Fentanyl 2ml Vial) 100 mcg 1X ONCE IV Last administered on 03/10/19at 01:26; Start 03/10/19 at 01:45; Stop 03/10/19 at 01:46; Status DC Clonidine HCl (Catapres) 0.1 mg 1X ONCE PO ; Start 03/10/19 at 01:30; Stop 03/10/19 at 01:34; Status DC Midazolam HCl (Versed) 5 mg 1X ONCE IV Last administered on 03/10/19at 01:28; Start 03/10/19 at 01:30; Stop 03/10/19 at 01:34; Status DC Propofol 50 ml @ As Directed STK-MED ONCE IV ; Start 03/10/19 at 02:08; Stop 03/10/19 at 02:09; Status DC Propofol 50 ml @ As Directed STK-MED ONCE IV ; Start 03/10/19 at 02:36; Stop 03/10/19 at 02:36; Status DC Rocuronium [place] (Zemuron) 50 mg STK-MED ONCE .ROUTE ; Start 03/10/19 at 05:15; Stop 03/10/19 at 05:15; Status DC Etomidate (Amidate) 20 mg STK-MED ONCE IV ; Start 03/10/19 at 05:15; Stop 03/10/19 at 05:16; Status DC Fentanyl Citrate 30 ml @ 0 mls/hr CONT PRN IV SEE PROTOCOL Last administered on 03/25/19at 05:46; Start 03/10/19 at 07:30 Propofol 100 ml @ 0 mls/hr CONT PRN IV SEE PROTOCOL Last administered on 03/25/19at 05:46; Start 03/10/19 at 07:30 Fentanyl Citrate (Fentanyl 2ml Vial) 25 mcg PRN Q1HR PRN IV SEE COMMENTS; Start 03/10/19 at 07:30 Fentanyl Citrate (Fentanyl 2ml Vial) 50 mcg PRN Q1HR PRN IV SEE COMMENTS; Start 03/10/19 at 07:30 Artificial Tears (Artificial Tears) 1 drop PRN Q1HR PRN OU DRY EYE, 1ST CHOICE Last administered on 03/13/19at 13:32; Start 03/10/19 at 07:30 Famotidine (Pepcid Vial) 20 mg BID IVP ; Start 03/10/19 at 09:00; Status UNV Morphine Sulfate (Morphine Sulfate) 2 mg PRN Q1HR PRN IV SEE COMMENTS.; Start 03/10/19 at 07:30 Morphine Sulfate (Morphine Sulfate) 4 mg PRN Q1HR PRN IV SEE COMMENTS.; Start 03/10/19 at 07:30 Midazolam HCl 100 ml @ 0 mls/hr CONT PRN IV SEE PROTOCOL Last administered on 03/24/19at 22:22; Start 03/10/19 at 07:30 Levofloxacin/ Dextrose (Levaquin Per Pharmacy) 1 each PRN DAILY PRN MC SEE COMMENTS; Start 03/10/19 at 08:15; Stop 03/14/19 at 09:25; Status DC Albuterol/ Ipratropium (Duoneb) 3 ml RTQID NEB Last administered on 03/25/19at 07:56; Start 03/10/19 at 12:00 Sodium Chloride 1,000 ml @ 100 mls/hr Q10H IV Last administered on 03/10/19at 23:34; Start 03/10/19 at 08:15; Stop 03/11/19 at 16:02; Status DC Amlodipine Besylate (Norvasc) 5 mg DAILY PO Last administered on 03/10/19 09:13; Start 03/10/19 at 09:00; Stop 03/10/19 at 10:04; Status DC Hydrochlorothiazide (Hydrodiuril) 25 mg DAILY PO Last administered on 03/10/19 09:13; Start 03/10/19 at 09:00; Stop 03/10/19 at 10:04; Status DC Lisinopril (Prinivil) 5 mg DAILY PO Last administered on 03/10/19 09:13; Start 03/10/19 at 09:00; Stop 03/10/19 at 10:04; Status DC Levofloxacin/ Dextrose 100 ml @ 100 mls/hr Q24H IV Last administered on 03/14/19at 08:10; Start 03/10/19 at 09:00; Stop 03/14/19 at 09:25; Status DC Aspirin (Amanda Aspirin) 325 mg 1X ONCE PO Last administered on 03/10/19at 10:55; Start 03/10/19 at 10:30; Stop 03/10/19 at 10:31; Status DC Aspirin (Children'S Aspirin) 81 mg DAILYWBKFT PO Last administered on 03/24/19at 10:40; Start 03/11/19 at 08:00 Amlodipine Besylate (Norvasc) 10 mg DAILY PO Last administered on 03/11/19at 09:37; Start 03/11/19 at 09:00; Stop 03/11/19 at 12:50; Status DC Hydralazine HCl (Apresoline Inj) 10 mg PRN Q4HRS PRN IVP ELEVATED BP, SEE COMMENTS; Start 03/10/19 at 10:15; Stop 03/12/19 at 09:37; Status DC Furosemide (Lasix) 40 mg DAILY IVP Last administered on 03/11/19at 09:37; Start 03/10/19 at 11:00; Stop 03/11/19 at 11:24; Status DC Insulin Human Lispro (HumaLOG) 0-9 UNITS TIDWMEALS SQ ; Start 03/10/19 at 12:00; Stop 03/10/19 at 17:57; Status DC Dextrose (Dextrose 50%-Water Syringe) 12.5 gm PRN Q15MIN PRN IV SEE COMMENTS; Start 03/10/19 at 11:15; Stop 03/12/19 at 16:47; Status DC Dextrose 250 ml PRN Q15MIN PRN IV SEE COMMENTS; Start 03/10/19 at 11:15; Stop 03/10/19 at 11:05; Status DC Iohexol (Omnipaque 350 Mg/ml) 100 ml 1X ONCE IV Last administered on 03/10/19at 14:05; Start 03/10/19 at 11:45; Stop 03/10/19 at 11:47; Status DC Info (CONTRAST GIVEN -- Rx MONITORING) 1 each PRN DAILY PRN MC SEE COMMENTS; Start 03/10/19 at 11:45; Stop 03/12/19 at 11:44; Status DC Piperacillin Sod/ Tazobactam Sod (Zosyn Per Pharmacy) 1 each PRN DAILY PRN MC SEE COMMENTS; Start 03/10/19 at 11:45 Vancomycin HCl (Vanco Per Pharmacy) 1 each PRN DAILY PRN MC SEE COMMENTS Last administered on 03/11/19at 09:42; Start 03/10/19 at 11:45; Stop 03/11/19 at 13:57; Status DC Vancomycin HCl 2 gm/Sodium Chloride 500 ml @ 250 mls/hr 1X ONCE IV Last administered on 03/10/19at 12:41; Start 03/10/19 at 13:00; Stop 03/10/19 at 14:59; Status DC Piperacillin Sod/ Tazobactam Sod 3.375 gm/Sodium Chloride 50 ml @ 100 mls/hr Q6HRS IV Last administered on 03/24/19at 05:45; Start 03/10/19 at 12:30; Stop 03/24/19 at 07:24; Status DC Vancomycin HCl 1.75 gm/Sodium Chloride 500 ml @ 250 mls/hr Q12H IV Last administered on 03/11/19at 12:43; Start 03/11/19 at 01:00; Stop 03/11/19 at 13:57; Status DC Vancomycin HCl (Vancomycin Trough Level) 1 each 1X ONCE MC ; Start 03/12/19 at 12:30; Stop 03/12/19 at 12:31; Status Cancel Insulin Human Lispro (HumaLOG) 0-9 UNITS Q6HRS SQ ; Start 03/11/19 at 00:00; Stop 03/12/19 at 16:14; Status DC Magnesium Sulfate/ Dextrose 100 ml @ 50 mls/hr DAILY IV Last administered on 03/11/19at 09:28; Start 03/11/19 at 09:00; Stop 03/14/19 at 08:59; Status DC Potassium Phosphate 27.2 mmol/Sodium Chloride 259.0667 ml @ 64.753 m... 1X ONCE IV Last administered on 03/11/19at 09:28; Start 03/11/19 at 10:00; Stop 03/11/19 at 14:00; Status DC Potassium Phosphate 27.2 mmol/Sodium Chloride 259.0667 ml @ 64.753 m... 1X ONCE IV ; Start 03/11/19 at 14:00; Stop 03/11/19 at 18:00; Status DC Lorazepam (Ativan Inj) 1 mg PRN Q1HR PRN IV ANXIETY Last administered on 03/14/19at 16:32; Start 03/11/19 at 11:00; Stop 03/19/19 at 10:31; Status DC Sodium Chloride 1,000 ml @ 1,000 mls/hr 1X ONCE IV Last administered on 03/11/19at 12:06; Start 03/11/19 at 11:30; Stop 03/11/19 at 12:29; Status DC Norepinephrine Bitartrate 250 ml @ 27.837 mls/ hr CONT PRN IV SEE I/O RECORD Last administered on 03/13/19at 04:13; Start 03/11/19 at 13:00 Hydralazine HCl (Apresoline Inj) 10 mg PRN Q4HRS PRN IVP ELEVATED BP, SEE COMMENTS Last administered on 03/22/19at 06:13; Start 03/11/19 at 13:00 Linezolid/Dextrose 300 ml @ 300 mls/hr Q12HR IV Last administered on 03/22/19at 21:38; Start 03/11/19 at 21:00; Stop 03/23/19 at 07:48; Status DC Potassium Chloride/Water 50 ml @ 50 mls/hr Q1H IV Last administered on 03/11/19at 17:28; Start 03/11/19 at 16:00; Stop 03/11/19 at 17:59; Status DC Heparin Sodium (Porcine) (Heparin Sodium) 5,000 unit Q8HRS SQ Last administered on 03/25/19at 05:47; Start 03/11/19 at 22:00 Multi-Ingred Cream/Lotion/Oil/ Oint (Artificial Tears Eye Ointment) 1 zuri PRN Q1HR PRN OU DRY EYE; Start 03/12/19 at 09:00 Potassium Chloride/Water 50 ml @ 50 mls/hr 1X ONCE IV Last administered on 03/12/19at 09:44; Start 03/12/19 at 10:00; Stop 03/12/19 at 10:59; Status DC Potassium Chloride/Water 50 ml @ 50 mls/hr 1X ONCE IV ; Start 03/12/19 at 10:30; Stop 03/12/19 at 11:31; Status DC Insulin Human Lispro (HumaLOG) 0-9 UNITS TIDWMEALS SQ ; Start 03/12/19 at 17:00; Stop 03/12/19 at 16:24; Status DC Dextrose (Dextrose 50%-Water Syringe) 12.5 gm PRN Q15MIN PRN IV SEE COMMENTS; Start 03/12/19 at 16:15 Dextrose 250 ml PRN Q15MIN PRN IV SEE COMMENTS; Start 03/12/19 at 16:15 Insulin Human Lispro (HumaLOG) 0-9 UNITS Q6HRS SQ Last administered on 03/23/19at 16:35; Start 03/12/19 at 18:00 Dexmedetomidine HCl 400 mcg/ Sodium Chloride 100 ml @ 0 mls/hr CONT PRN IV ANXIETY / AGITATION Last administered on 03/21/19at 04:33; Start 03/12/19 at 20:30 Sodium Chloride 500 ml @ 500 mls/hr 1X PRN PRN IV see comments Last administered on 03/12/19at 23:22; Start 03/12/19 at 20:30 Atropine Sulfate (ATROPINE 0.5mg SYRINGE) 0.5 mg PRN Q5MIN PRN IV SEE COMMENTS; Start 03/12/19 at 20:30 Vecuronium [place] (Norcuron Bolus) 10 mg PRN Q1HR PRN IV ON VENT/RESP FAILURE; Start 03/13/19 at 07:30 Perflutren Protein Type A Microsphe (Optison) 0.66 mg STK-MED ONCE IV ; Start 03/13/19 at 09:08; Stop 03/13/19 at 09:08; Status DC Perflutren Protein Type A Microsphe (Optison) 0.66 mg 1X ONCE IV Last administered on 03/13/19at 09:40; Start 03/13/19 at 09:15; Stop 03/13/19 at 09:16; Status DC Furosemide (Lasix) 40 mg 1X ONCE IVP Last administered on 03/13/19at 13:32; Start 03/13/19 at 10:30; Stop 03/13/19 at 10:31; Status DC Daptomycin 1320 mg/Sodium Chloride 50 ml @ 100 mls/hr ONCE ONCE IV Last administered on 03/15/19at 13:53; Start 03/15/19 at 13:00; Stop 03/16/19 at 09:33; Status DC Daptomycin 1340 mg/Sodium Chloride 50 ml @ 100 mls/hr Q24H IV ; Start 03/16/19 at 08:45; Status UNV Daptomycin 1340 mg/Sodium Chloride 50 ml @ 100 mls/hr Q24H IV ; Start 03/16/19 at 09:00; Status Cancel Daptomycin 830 mg/ Sodium Chloride 50 ml @ 100 mls/hr Q24H IV Last administered on 03/18/19at 15:03; Start 03/16/19 at 14:00; Stop 03/19/19 at 07:41; Status DC Methylprednisolone Sodium Succinate (SOLU-Medrol 125MG VIAL) 100 mg Q8HRS IV Last administered on 03/23/19at 05:54; Start 03/16/19 at 12:00; Stop 03/23/19 at 12:03; Status DC Furosemide (Lasix) 40 mg 1X ONCE IVP Last administered on 03/16/19at 16:46; St art 03/16/19 at 16:30; Stop 03/16/19 at 16:31; Status DC Fentanyl Citrate (Fentanyl 600 Mcg/30 ml MECHANISM INSPECTOR) 600 mcg STK-MED ONCE IV ; Start 03/13/19 at 17:00; Stop 03/17/19 at 11:02; Status DC Furosemide 100 mg/ Sodium Chloride 100 ml @ 5 mls/hr CONT PRN IV SEE I/O RECORD Last administered on 03/18/19at 00:20; Start 03/17/19 at 15:45; Stop 03/18/19 at 10:36; Status DC Furosemide 100 mg/ Sodium Chloride 100 ml @ 5 mls/hr CONT PRN IV SEE I/O RECORD Last administered on 03/21/19at 08:34; Start 03/18/19 at 10:45; Stop 03/21/19 at 12:57; Status DC Lorazepam (Ativan Inj) 2 mg PRN Q1HR PRN IV ANXIETY Last administered on 03/20/19at 17:11; Start 03/19/19 at 10:45 Lisinopril (Prinivil) 5 mg DAILY PO Last administered on 03/24/19at 10:40; Start 03/21/19 at 11:30 Amlodipine Besylate (Norvasc) 10 mg DAILY PO Last administered on 03/24/19at 12:20; Start 03/21/19 at 11:30 Furosemide 100 mg/ Sodium Chloride 100 ml @ 10 mls/hr CONT PRN IV SEE I/O RECORD Last administered on 03/22/19at 05:05; Start 03/21/19 at 16:00; Stop 03/22/19 at 12:39; Status DC Scopolamine (Transderm-Scop) 1 patch Q3DAYS TD Last administered on 03/22/19at 10:47; Start 03/22/19 at 11:00 Furosemide 100 mg/ Sodium Chloride 100 ml @ 5 mls/hr CONT PRN IV SEE I/O RECORD Last administered on 03/22/19at 21:38; Start 03/22/19 at 12:45; Stop 03/23/19 at 17:48; Status DC Methylprednisolone Sodium Succinate (SOLU-Medrol 125MG VIAL) 50 mg Q8HRS IV Last administered on 03/25/19at 05:52; Start 03/23/19 at 14:00 Active Scripts Active Norvasc (Amlodipine Besylate) 5 Mg Tablet 1 Tab PO DAILY Lisinopril 5 Mg Tablet 1 Tab PO DAILY Reported Hydrochlorothiazide Tablet (Hydrochlorothiazide) 25 Mg Tablet 25 Mg PO DAILY Vitals/I & O Vital Sign - Last 24 Hours 03/24/19 03/24/19 03/24/19 03/24/19 09:00 10:00 10:00 10:40 Pulse 60 70 73 Resp 16 16 B/P (MAP) 127/63 (84) 127/67 (87) 127/67 Pulse Ox 100 100 100 O2 Delivery Ventilator 03/24/19 03/24/19 03/24/19 03/24/19 10:40 11:00 11:23 12:00 Pulse 70 Resp 16 B/P (MAP) 136/75 (95) Pulse Ox 100 100 97 O2 Delivery Ventilator Mechanical Ventilator 03/24/19 03/24/19 03/24/19 03/24/19 12:00 12:20 12:20 13:00 Temp 98.3 98.3 Pulse 62 68 50 Resp 16 16 16 B/P (MAP) 134/74 (94) 134/75 117/66 (83) Pulse Ox 100 97 100 O2 Delivery Ventilator O2 Flow Rate 70.0 03/24/19 03/24/19 03/24/19 03/24/19 13:12 14:00 15:00 15:25 Pulse 70 72 Resp 16 16 B/P (MAP) 147/75 (99) 150/75 (100) Pulse Ox 99 100 100 97 O2 Delivery Ventilator Ventilator 03/24/19 03/24/19 03/24/19 03/24/19 16:00 16:00 16:39 16:43 Resp 16 17 B/P (MAP) 122/75 (91) Pulse Ox 100 96 96 O2 Delivery Mechanical Ventilator Ventilator O2 Flow Rate 70.0 03/24/19 03/24/19 03/24/19 03/24/19 17:00 18:00 19:00 19:10 Temp 98.5 98.5 Resp 16 16 16 B/P (MAP) 89/62 (71) 120/66 (84) 153/83 (106) Pulse Ox 100 100 97 97 O2 Delivery Ventilator 03/24/19 03/24/19 03/24/19 03/24/19 19:10 19:47 20:00 20:00 Temp 98.3 98.3 Resp 11 11 24 B/P (MAP) 154/80 (104) Pulse Ox 96 96 99 O2 Delivery Mechanical Ventilator O2 Flow Rate 70.0 70.0 03/24/19 03/24/19 03/24/19 03/24/19 21:00 21:00 21:02 22:00 Pulse 96 96 95 Resp 22 22 22 B/P (MAP) 145/71 (95) 145/81 (102) 138/79 (98) Pulse Ox 99 99 96 99 O2 Delivery Ventilator 03/24/19 03/24/19 03/24/19 03/24/19 23:00 23:28 23:59 23:59 Temp 98.5 98.5 Pulse 93 99 Resp 22 20 B/P (MAP) 142/77 (98) 151/90 (110) Pulse Ox 99 95 99 O2 Delivery Ventilator Mechanical Ventilator 03/25/19 03/25/19 03/25/19 03/25/19 00:12 01:00 01:10 02:00 Pulse 79 82 Resp 12 22 22 B/P (MAP) 130/77 (94) 128/74 (92) Pulse Ox 99 99 95 99 O2 Delivery Ventilator O2 Flow Rate 70.0 03/25/19 03/25/19 03/25/19 03/25/19 03:00 03:16 03:38 04:00 Temp 97.9 97.9 Pulse 78 82 Resp 18 11 20 B/P (MAP) 130/76 (94) 148/76 (100) Pulse Ox 99 99 97 99 O2 Delivery Ventilator O2 Flow Rate 70.0 03/25/19 03/25/19 03/25/19 03/25/19 04:00 05:00 05:46 05:58 Pulse 78 Resp 20 11 B/P (MAP) 148/74 (98) Pulse Ox 97 97 100 O2 Delivery Mechanical Ventilator Ventilator O2 Flow Rate 70.0 03/25/19 03/25/19 03/25/19 03/25/19 06:00 07:00 07:24 08:00 Pulse 82 79 Resp 20 20 20 B/P (MAP) 132/72 (92) 171/96 (121) Pulse Ox 98 97 98 O2 Delivery Ventilator Ventilator Mechanical Ventilator 03/25/19 03/25/19 08:00 08:00 Temp 98.7 98.7 Pulse 82 Resp 16 B/P (MAP) 136/79 (98) Pulse Ox 97 98 O2 Delivery Ventilator Ventilator Intake and Output 03/24/19 03/24/19 03/25/19 14:59 22:59 06:59 Intake Total 400 ml 1677 ml 1957 ml Output Total 1200 ml 1150 ml 700 ml Balance -800 ml 527 ml 1257 ml LICO HOLGUIN MD Mar 25, 2019 08:31
[2019-03-25] MEDS: ASPIRIN CHEWABLE 81 MG TABLET. PO SCH (08:46)
[2019-03-25] MEDS: FAMOTIDINE 20 MG/2 ML VIAL IVP SCH ×2 (08:46→21:25)
[2019-03-25] MEDS: SCOPOLAMINE 1.5MG PATCH. TD SCH (08:46)
[2019-03-25] MEDS: CHLORHEXIDINE 0.12% 15 ML MOUTHWASH. MM SCH ×2 (08:46→21:25)
[2019-03-25] MEDS: amLODIPine BESYLATE 10 MG TABLET PO SCH ×2 (09:00→12:06)
[2019-03-25] MEDS: LISINOPRIL 5 MG TABLET. PO SCH ×2 (09:00→12:06)
--- NOTE | 2019-03-25 10:05 | PDOC ---
SUBJECTIVE ROS Stable OBJECTIVE Vital Signs Vital Signs Date Time Temp Pulse Resp B/P (MAP) Pulse Ox O2 Delivery O2 Flow Rate FiO2 03/25/19 09:18 16 98 Ventilator 70.0 03/25/19 09:00 70 129/73 (91) 03/25/19 08:00 98.7 98.7 I & 0 Intake and Output 03/25/19 06:59 Intake Total 4034 ml Output Total 3050 ml Balance 984 ml IV Total 1042 ml Tube Feeding 2992 ml Output Urine Total 3050 ml Gastric Drainage Total 0 ml PHYSICAL EXAM Physical Exam GENERAL: Orally intubated HEENT: OGT/ETT NECK: Supple LUNGS: decreased bs at bases HEART: S1 and S2, regular. ABDOMEN: Obese, soft, +BS : Ramos + EXTREMITIES: Trace edema SKIN: , Chronic stasis dermatitis on the lower extremity. NEUROLOGIC: Sedated DIAGNOSIS/ASSESSMENT Assessment & Plan OSMAN- Had resolved , BUN/Creat increasing Improved after holding Lasix gtt dced 03/23 , No labs this am CTA on 03/10 Supportive care, Monitor , Avoid Nephrotoxins CKD stage 2 baseline Cr appears to be 1.2 Acute hypercapnic respiratory - acute lung injury/noncardiogenic pulmonary edema/ ARDS due to vaping vs [id number] right heart failure with worsening hypercapnia. CHF- Per cardiology On IV Lasix gtt- held due to worsening renal function Super morbid Obesity Vaping Labs Orderd, Rajan ANNA COMMENT/RELEVANT DATA Meds Current Medications Medications (Trade) Dose Ordered Sig/Stefanie Start Time Stop Time Status Last Admin Dose Admin Albuterol/ Ipratropium (Duoneb) 3 ml RTQID 03/10/19 12:00 03/25/19 07:56 3 ML Amlodipine Besylate (Norvasc) 10 mg DAILY 03/21/19 11:30 03/24/19 12:20 10 MG Artificial Tears (Artificial Tears) 1 drop PRN Q1HR PRN 03/10/19 07:30 03/13/19 13:32 1 DROP Aspirin (Aspirin Rectal Supp) 300 mg 1X ONCE 03/10/19 00:00 03/10/19 00:01 DC 03/10/19 03:42 300 MG Aspirin (Amanda Aspirin) 325 mg 1X ONCE 03/10/19 10:30 03/10/19 10:31 DC 03/10/19 10:55 325 MG Aspirin (Children'S Aspirin) 81 mg [id number] 03/11/19 08:00 03/25/19 08:47 81 MG Atropine Sulfate (ATROPINE 0.5mg SYRINGE) 0.5 mg PRN Q5MIN PRN 03/12/19 20:30 Bumetanide (Bumex) 1 mg 1X ONCE 03/10/19 00:00 03/10/19 00:01 DC 03/10/19 00:21 1 MG Chlorhexidine Gluconate (Peridex) 15 ml BID 03/10/19 09:00 03/25/19 08:47 15 ML Clonidine HCl (Catapres) 0.1 mg 1X ONCE 03/10/19 01:30 03/10/19 01:34 DC Daptomycin 1320 mg/Sodium Chloride 50 ml @ 100 mls/hr ONCE ONCE 03/15/19 13:00 03/16/19 09:33 DC 03/15/19 13:53 100 MLS/HR Daptomycin 1340 mg/Sodium Chloride 50 ml @ 100 mls/hr Q24H 03/16/19 09:00 Cancel Daptomycin 830 mg/ Sodium Chloride 50 ml @ 100 mls/hr Q24H 03/16/19 14:00 03/19/19 07:41 DC 03/18/19 15:03 100 MLS/HR Dexamethasone Sodium Phosphate (Decadron) 10 mg 1X ONCE 03/09/19 22:00 03/09/19 22:01 DC 03/09/19 22:29 10 MG Dexmedetomidine HCl 400 mcg/ Sodium Chloride 100 ml @ 0 mls/hr CONT PRN 03/12/19 20:30 03/21/19 04:33 21.7 MLS/HR Dextrose 250 ml PRN Q15MIN PRN 03/12/19 16:15 Dextrose (Dextrose 50%-Water Syringe) 12.5 gm PRN Q15MIN PRN 03/12/19 16:15 Etomidate (Amidate) 20 mg STK-MED ONCE 03/10/19 05:15 03/10/19 05:16 DC Famotidine (Pepcid Vial) 20 mg BID 03/10/19 09:00 UNV Fentanyl Citrate (Fentanyl 2ml Vial) 50 mcg PRN Q1HR PRN 03/10/19 07:30 Fentanyl Citrate (Fentanyl 600 Mcg/30 ml PICK UP DRIVER) 600 mcg STK-MED ONCE 03/13/19 17:00 03/17/19 11:02 DC Furosemide (Lasix) 40 mg 1X ONCE 03/16/19 16:30 03/16/19 16:31 DC 03/16/19 16:46 40 MG Furosemide 100 mg/ Sodium Chloride 100 ml @ 5 mls/hr CONT PRN 03/22/19 12:45 03/23/19 17:48 DC 03/22/19 21:38 5 MLS/HR Heparin Sodium (Porcine) (Heparin Sodium) 5,000 unit Q8HRS 03/11/19 22:00 03/25/19 05:47 5,000 UNIT Heparin Sodium/ Dextrose 500 ml @ 0 mls/hr CONT PRN 03/09/19 23:45 03/11/19 16:13 DC 03/10/19 23:34 1,300 MLS/HR Hydralazine HCl (Apresoline Inj) 10 mg PRN Q4HRS PRN 03/11/19 13:00 03/22/19 06:13 10 MG Hydrochlorothiazide (Hydrodiuril) 25 mg DAILY 03/10/19 09:00 03/10/19 10:04 DC 03/10/19 09:13 25 MG Info (CONTRAST GIVEN -- Rx MONITORING) 1 each PRN DAILY PRN 03/10/19 11:45 03/12/19 11:44 DC Insulin Human Lispro (HumaLOG) 0-9 UNITS Q6HRS 03/12/19 18:00 03/23/19 16:35 4 UNITS Iohexol (Omnipaque 350 Mg/ml) 100 ml 1X ONCE 03/10/19 11:45 03/10/19 11:47 DC 03/10/19 14:05 100 ML Levofloxacin/ Dextrose 100 ml @ 100 mls/hr Q24H 03/10/19 09:00 03/14/19 09:25 DC 03/14/19 08:10 100 MLS/HR Levofloxacin/ Dextrose (Levaquin Per Pharmacy) 1 each PRN DAILY PRN 03/10/19 08:15 03/14/19 09:25 DC Linezolid/Dextrose 300 ml @ 300 mls/hr Q12HR 03/11/19 21:00 03/23/19 07:48 DC 03/22/19 21:38 300 MLS/HR Lisinopril (Prinivil) 5 mg DAILY 03/21/19 11:30 03/24/19 10:40 5 MG Lorazepam (Ativan Inj) 2 mg PRN Q1HR PRN 03/19/19 10:45 03/20/19 17:11 2 MG Magnesium Sulfate/ Dextrose 100 ml @ 50 mls/hr DAILY 03/11/19 09:00 03/14/19 08:59 DC 03/11/19 09:28 50 MLS/HR Methylprednisolone Sodium Succinate (SOLU-Medrol 125MG VIAL) 50 mg Q8HRS 03/23/19 14:00 03/25/19 05:52 50 MG Midazolam HCl 100 ml @ 0 mls/hr CONT PRN 03/10/19 07:30 03/24/19 22:22 10 MLS/HR Midazolam HCl (Versed) 5 mg 1X ONCE 03/10/19 01:30 03/10/19 01:34 DC 03/10/19 01:28 5 MG Morphine Sulfate (Morphine Sulfate) 4 mg PRN Q1HR PRN 03/10/19 07:30 Multi-Ingred Cream/Lotion/Oil/ Oint (Artificial Tears Eye Ointment) 1 zuri PRN Q1HR PRN 03/12/19 09:00 Norepinephrine Bitartrate 250 ml @ 27.837 mls/ hr CONT PRN 03/11/19 13:00 03/13/19 04:13 1.392 MLS/HR Perflutren Protein Type A Microsphe (Optison) 0.66 mg 1X ONCE 03/13/19 09:15 03/13/19 09:16 DC 03/13/19 09:40 0.66 MG Piperacillin Sod/ Tazobactam Sod (Zosyn Per Pharmacy) 1 each PRN DAILY PRN 03/10/19 11:45 03/25/19 08:36 DC Piperacillin Sod/ Tazobactam Sod 3.375 gm/Sodium Chloride 50 ml @ 100 mls/hr Q6HRS 03/10/19 12:30 03/24/19 07:24 DC 03/24/19 05:45 100 MLS/HR Piperacillin Sod/ Tazobactam Sod 4.5 gm/Sodium Chloride 100 ml @ 200 mls/hr 1X ONCE 03/10/19 00:30 03/10/19 00:59 DC 03/10/19 05:19 200 MLS/HR Potassium Chloride/Water 50 ml @ 50 mls/hr 1X ONCE 03/12/19 10:30 03/12/19 11:31 DC Potassium Phosphate 27.2 mmol/Sodium Chloride 259.0667 ml @ 64.753 m... 1X ONCE 03/11/19 14:00 03/11/19 18:00 DC Propofol 100 ml @ 0 mls/hr CONT PRN 03/10/19 07:30 03/25/19 08:47 32.6 MLS/HR Rocuronium [place] (Zemuron) 50 mg STK-MED ONCE 03/10/19 05:15 03/10/19 05:15 DC Scopolamine (Transderm-Scop) 1 patch Q3DAYS 03/22/19 11:00 03/25/19 08:47 1 PATCH Sodium Chloride 500 ml @ 500 mls/hr 1X PRN PRN 03/12/19 20:30 03/12/19 23:22 500 MLS/HR Vancomycin HCl (Vanco Per Pharmacy) 1 each PRN DAILY PRN 03/10/19 11:45 03/11/19 13:57 DC 03/11/19 09:42 1 EACH Vancomycin HCl (Vancomycin Trough Level) 1 each 1X ONCE 03/12/19 12:30 03/12/19 12:31 Cancel Vancomycin HCl 1.75 gm/Sodium Chloride 500 ml @ 250 mls/hr Q12H 03/11/19 01:00 03/11/19 13:57 DC 03/11/19 12:43 250 MLS/HR Vancomycin HCl 2 gm/Sodium Chloride 500 ml @ 250 mls/hr 1X ONCE 03/10/19 13:00 03/10/19 14:59 DC 03/10/19 12:41 250 MLS/HR Vecuronium [place] (Norcuron Bolus) 10 mg PRN Q1HR PRN 03/13/19 07:30 Lab Laboratory Tests Test 03/24/19 12:04 03/24/19 17:17 03/25/19 00:03 03/25/19 08:05 Glucose (Fingerstick) 111 mg/dL (70-99) 124 mg/dL (70-99) 110 mg/dL (70-99) O2 Saturation 95 % (92-99) Arterial Blood pH 7.41 (7.35-7.45) Arterial Blood pCO2 at Patient Temp 59 mmHg (35-46) Arterial Blood pO2 at Patient Temp 80 mmHg (75-108) Arterial Blood HCO3 37 mmol/L (21-28) Arterial Blood Base Excess 10 mmol/L (-3-3) FiO2 70 Results All relevant outside records, renal labs, imaging studies, telemetry/EKG's were reviewed. SARAH GAYTAN MD Mar 25, 2019 10:05
--- NOTE | 2019-03-25 10:07 | RAD ---
CHEST AP ONLY History: Intubation Comparison: March 24, 2019 Findings: Diffuse interstitial and alveolar opacities, similar compared to prior. Bilateral layering pleural effusions, unchanged. Unchanged enlarged cardiac size. Unchanged endotracheal tube, enteric and right PICC. Impression: 1. Diffuse interstitial and alveolar opacities, unchanged. 2. Unchanged bilateral layering pleural effusions. Electronically signed by: Kirit Bailey DO (03/25/2019 10:04 AM) [id number]
[2019-03-25 10:30] LABS: CREATININE 0.9 mg/dL (0.7-1.3); POTASSIUM 4.6 mmol/L (3.5-5.1)
[2019-03-25 10:33] LABS: PHOSPHORUS 3.8 mg/dL (2.6-4.7)
--- NOTE | 2019-03-25 12:47 | PDOC ---
[employer] PROGRESS NOTE Chief Complaint Chief Complaint Acute Hypercapnic Respiratory Failure/ARDS due to vaping Pulmonary Edema Bilateral Lung Infiltrates Obstructive sleep apnea OSMAN Increased Troponin Morbid Obesity Pulmonary HTN Tobacco use History of Present Illness History of Present Illness 03/25/19 Pt seen and examined in the ICU Pt is sedated and on ventilation (Vent settings: AC/16/600/65% 11 PEEP) Chart and labs reviewed JUANA RN 03/24/19 Pt seen and examined in the ICU Pt is on ventilation (Vent settings: AC/16/600/70% 13 PEEP) Chart and labs reviewed JUANA RN 03/23/19 Pt seen/examined in the ICU Pt is still on ventilation (Vent settings: AC/16/600/80% 13 PEEP) JUANA RN Chart and labs reviewed 03/22/19 Pt seen/examined in the ICU Pt is still on ventilation (Vent settings: AC/16/600/80% 13 PEEP) JUANA RN Chart and labs reviewed Chart Reviewed 03/21/19 Pt seen and examined in the ICU Pt still on ventilation (vent settings: AC/16/600/75% 13 PEEP) JUANA Pulm [employer]ER regarding starting patient on home medications for HTN 9�13�2019 Patient seen and examined in the ICU He is still ventilated AC/16/600/80% 14 PEEP 03/19/19 Pt seen and examined in ICU on vent (vent settings: AC/16/600/85% 14 PEEP) Pt responsive to voice In mitts for pt safety Pt sedated with versed, fentanyl, and precedex Rectal tube intact [place] to BSD Has OG tube to LIS; ET tube placed JUANA RN 03/18/19 Pt seen and examined in ICU on vent (vent settings: AC/16/00/100% 14 PEEP) Pt sedated with versed, fentanyl, and precedex Rectal tube placed [place] to BSD Has OG tube to LIS; ET tube placed JUANA RN Chart reviewed 03/17/19 Pt seen and examined in ICU on vent (AC/16/600/100 14peep) Pt has rectal tube and fontana to BSD Sedated with versed, fentanyl, and precedex Pt has ET tube and OG tube to LIS JUANA RN DW case specialist Chart reviewed Vitals/I&O Vitals/I&O: Vital Signs Date Time Temp Pulse Resp B/P (MAP) Pulse Ox O2 Delivery O2 Flow Rate FiO2 03/25/19 12:14 16 94 Ventilator 03/25/19 12:06 103 185/98 03/25/19 12:00 98.4 98.4 03/25/19 09:18 70.0 I & O 03/24/19 03/24/19 03/25/19 15:00 23:00 07:00 Intake Total 400 ml 1677 ml 1957 ml Output Total 1200 ml 1225 ml 850 ml Balance -800 ml 452 ml 1107 ml Physical Exam Physical Exam: GENERAL: Orally intubated/ sedated - lightly, HEENT: opened eyes Pupils equal, nml conj OGT/ETT NECK: Supple LUNGS: dec bs at bases HEART: S1 and S2, regular. ABDOMEN: Obese, soft, +BS : Font[place] in place fecal tube in place EXTREMITIES: Trace edema - MITTS SKIN: Chronic stasis dermatitis on the lower extremity. NEUROLOGIC: Sedated IVS; Old RIJ site clean. RUE - PICC clean General: No acute distress, Other (short neck , Mallampati 4 ON VENT) Heart: Regular rate (SR), Other (distante heart sounds) Lungs: Other (decrease bs) Abdomen: Normal bowel sounds, Soft, No tenderness, No hepatosplenomegaly, No masses Extremities: No clubbing, No cyanosis, No edema, Normal pulses, No tenderness/swelling Skin: No rashes, No breakdown, No significant lesion Labs Labs: Laboratory Tests Test 03/24/19 17:17 03/25/19 00:03 03/25/19 08:05 03/25/19 10:10 Glucose (Fingerstick) 124 mg/dL (70-99) 110 mg/dL (70-99) O2 Saturation 95 % (92-99) Arterial Blood pH 7.41 (7.35-7.45) Arterial Blood pCO2 at Patient Temp 59 mmHg (35-46) Arterial Blood pO2 at Patient Temp 80 mmHg (75-108) Arterial Blood HCO3 37 mmol/L (21-28) Arterial Blood Base Excess 10 mmol/L (-3-3) FiO2 70 Sodium Level 150 mmol/L (136-145) Potassium Level 4.6 mmol/L (3.5-5.1) Chloride Level 110 mmol/L (98-107) Carbon Dioxide Level 38 mmol/L (21-32) Anion Gap 2 (6-14) Blood Urea Nitrogen 65 mg/dL (8-26) Creatinine 0.9 mg/dL (0.7-1.3) Estimated GFR (Cockcroft-Gault) 109.0 Glucose Level 135 mg/dL (70-99) Calcium Level 9.0 mg/dL (8.5-10.1) Phosphorus Level 3.8 mg/dL (2.6-4.7) Albumin 2.0 g/dL (3.4-5.0) Review of Systems Review of Systems: Unable to be obtained; patient sedated Assessment and Plan Assessmemt and Plan Problems Medical Problems: (1) CHF exacerbation Status: Acute (2) COPD exacerbation Status: Acute (3) Hypoxia Status: Acute (4) NSTEMI (non-ST elevated myocardial infarction) Status: Acute (5) Respiratory failure Status: Acute Assessment Acute Hypercapnic Respiratory Failure/ARDS due to vaping Pulmonary Edema Bilateral Lung Infiltrates Obstructive sleep apnea OSMAN Increased Troponin Morbid Obesity Pulmonary HTN Tobacco use Plan ICU monitoring Vent weaning Consult neurology for EEG IV steroids OG feeds PPN Monitor rectal tube [place] to BSD Continue IV Abx (zyvox) Sedated with Versed, Fentanyl, and Propofol Home Meds Lasix drip Prognosis guarded DVT prophylaxis DNR Total time33 min Comment Review of Relevant I have reviewed the following items peter (where applicable) has been applied. TRICIA NAVA III DO Mar 25, 2019 12:47
[2019-03-25] MEDS: MIDAZOLAM 100mg/100ml NS BAG 100 ML IV PRN (14:34)
--- NOTE | 2019-03-25 14:45 | PDOC ---
PULMONARY PROGRESS NOTES Subjective remains on vent, sedated on fentanyl, versed, and propofol-- Now on 65% FIO2, 12 of PEEP remains critically ill Vitals Vital Signs Date Time Temp Pulse Resp B/P (MAP) Pulse Ox O2 Delivery O2 Flow Rate FiO2 03/25/19 14:00 96 16 101/69 (80) 97 Ventilator 03/25/19 12:00 98.4 98.4 03/25/19 09:18 70.0 Comments unable to obtain 2/2 vent/sedation Lungs: Other (decrease bs) Cardiovascular: S1, S2 Abdomen: Soft, Non-tender, Other (obese) Extremities: Other (lymphedema) Skin: Warm Labs Laboratory Tests Test 03/23/19 16:31 03/24/19 00:00 03/24/19 05:56 03/24/19 06:00 Glucose (Fingerstick) 157 mg/dL (70-99) 132 mg/dL (70-99) 138 mg/dL (70-99) White Blood Count 9.4 x10^3/uL (4.0-11.0) Red Blood Count 4.88 x10^6/uL (4.30-5.70) Hemoglobin 11.8 g/dL (13.0-17.5) Hematocrit 38.2 % (39.0-53.0) Mean Corpuscular Volume 78 fL (79-100) Mean Corpuscular Hemoglobin 24 pg (25-35) Mean Corpuscular Hemoglobin Concent 31 g/dL (31-37) Red Cell Distribution Width 18.6 % (11.5-14.5) Platelet Count 300 x10^3/uL (140-400) Neutrophils (%) (Auto) 91 % (31-73) Lymphocytes (%) (Auto) 4 % (24-48) Monocytes (%) (Auto) 5 % (0-9) Eosinophils (%) (Auto) 0 % (0-3) Basophils (%) (Auto) 0 % (0-3) Neutrophils # (Auto) 8.5 x10^3/uL (1.8-7.7) Lymphocytes # (Auto) 0.4 x10^3/uL (1.0-4.8) Monocytes # (Auto) 0.5 x10^3/uL (0.0-1.1) Eosinophils # (Auto) 0.0 x10^3/uL (0.0-0.7) Basophils # (Auto) 0.0 x10^3/uL (0.0-0.2) Sodium Level 148 mmol/L (136-145) Potassium Level 4.1 mmol/L (3.5-5.1) Chloride Level 107 mmol/L (98-107) Carbon Dioxide Level 39 mmol/L (21-32) Anion Gap 2 (6-14) Blood Urea Nitrogen 75 mg/dL (8-26) Creatinine 1.4 mg/dL (0.7-1.3) Estimated GFR (Cockcroft-Gault) 65.4 Glucose Level 142 mg/dL (70-99) Calcium Level 9.2 mg/dL (8.5-10.1) Test 03/24/19 08:35 03/24/19 12:04 03/24/19 17:17 03/25/19 00:03 O2 Saturation 97 % (92-99) Arterial Blood pH 7.40 (7.35-7.45) Arterial Blood pCO2 at Patient Temp 49 mmHg (35-46) Arterial Blood pO2 at Patient Temp 100 mmHg (75-108) Arterial Blood HCO3 30 mmol/L (21-28) Arterial Blood Base Excess 4 mmol/L (-3-3) FiO2 80 Glucose (Fingerstick) 111 mg/dL (70-99) 124 mg/dL (70-99) 110 mg/dL (70-99) Test 03/25/19 05:51 03/25/19 08:05 03/25/19 10:10 Glucose (Fingerstick) 123 mg/dL (70-99) O2 Saturation 95 % (92-99) Arterial Blood pH 7.41 (7.35-7.45) Arterial Blood pCO2 at Patient Temp 59 mmHg (35-46) Arterial Blood pO2 at Patient Temp 80 mmHg (75-108) Arterial Blood HCO3 37 mmol/L (21-28) Arterial Blood Base Excess 10 mmol/L (-3-3) FiO2 70 Sodium Level 150 mmol/L (136-145) Potassium Level 4.6 mmol/L (3.5-5.1) Chloride Level 110 mmol/L (98-107) Carbon Dioxide Level 38 mmol/L (21-32) Anion Gap 2 (6-14) Blood Urea Nitrogen 65 mg/dL (8-26) Creatinine 0.9 mg/dL (0.7-1.3) Estimated GFR (Cockcroft-Gault) 109.0 Glucose Level 135 mg/dL (70-99) Calcium Level 9.0 mg/dL (8.5-10.1) Phosphorus Level 3.8 mg/dL (2.6-4.7) Albumin 2.0 g/dL (3.4-5.0) Laboratory Tests Test 03/24/19 17:17 03/25/19 00:03 03/25/19 05:51 03/25/19 08:05 Glucose (Fingerstick) 124 mg/dL (70-99) 110 mg/dL (70-99) 123 mg/dL (70-99) O2 Saturation 95 % (92-99) Arterial Blood pH 7.41 (7.35-7.45) Arterial Blood pCO2 at Patient Temp 59 mmHg (35-46) Arterial Blood pO2 at Patient Temp 80 mmHg (75-108) Arterial Blood HCO3 37 mmol/L (21-28) Arterial Blood Base Excess 10 mmol/L (-3-3) FiO2 70 Test 03/25/19 10:10 Sodium Level 150 mmol/L (136-145) Potassium Level 4.6 mmol/L (3.5-5.1) Chloride Level 110 mmol/L (98-107) Carbon Dioxide Level 38 mmol/L (21-32) Anion Gap 2 (6-14) Blood Urea Nitrogen 65 mg/dL (8-26) Creatinine 0.9 mg/dL (0.7-1.3) Estimated GFR (Cockcroft-Gault) 109.0 Glucose Level 135 mg/dL (70-99) Calcium Level 9.0 mg/dL (8.5-10.1) Phosphorus Level 3.8 mg/dL (2.6-4.7) Albumin 2.0 g/dL (3.4-5.0) Medications Active Scripts Medications Dose Route/Sig Max Daily Dose Days Date Category Hydrochlorothiazide Tablet (Hydrochlorothiazide) 25 Mg Tablet 25 Mg PO DAILY 03/10/19 Reported Norvasc (Amlodipine Besylate) 5 Mg Tablet 1 Tab PO DAILY 01/12/19 Rx Lisinopril 5 Mg Tablet 1 Tab PO DAILY 01/12/19 Rx Comments cxr 03/25 no change Impression . 1. Acute hypercarbic/hypoxic respiratory Failure due to ARDS , vapping related, GRADUAL IMPROVING OXYGENATION 2. Suspected VAP ABX per ID , stable on Abx 3.Hypertension (controlled) 4. Pre-renal Azotemia 5. Pulm. HTN PA pressure 55 Normal EF 6. Possible non-ST myocardial infarction. 7. HX. of tobacco use 8. Morbid obesity Plan . 1. Continue with present assist control mode. wean PEEP to 11,%FIO2 65%. titrate fi02 to keep sat 92%, make necessary adjustment based on followup ABGs. cont vent support. May be turning the corner 2. high dose steroids ,initiated 03/16 , start taper, (azotemia) 3. Abx per ID, check all new cultures 4. Monitor fever and white cell count.overall no further fever 5. Continue bronchodilators. 6. Heparin for DVT prophylaxis 7 off lasix drip due to increase azotemia .renal following 8. Remains critically ill, will need tracheostomy and LTACH in future once O2 requirement improves 9. DNR.Continue aggressive supportive care discussed with RN and RT. We will follow along with you. MARIO ALLEN MD Mar 25, 2019 14:44
[2019-03-26] VITALS (24 sets, daily range): BP systolic 97–164; BP diastolic 49–93
[2019-03-26] MEDS: MIDAZOLAM 100mg/100ml NS BAG 100 ML IV PRN ×3 (00:29→23:56)
[2019-03-26] MEDS: INSULIN LISPRO 300 UNITS/3 ML VIAL. SQ SCH ×4 (00:37→17:30)
--- NOTE | 2019-03-26 00:53 | NUR ---
Call placed to Davi with [employer] at approx 2300. Message was left on the phone. Will attempt to call provided phone number again this shift.
--- NOTE | 2019-03-26 01:23 | NUR ---
Attempted to call Davi at [employer]. Message left.
[2019-03-26] MEDS: PROPOFOL 100 ML IV PRN ×5 (02:02→20:28)
[2019-03-26] MEDS: methylPREDNISolone SOD SUCC PF 125 MG/2 ML VIAL. IV SCH ×2 (05:47→13:43)
[2019-03-26] MEDS: HEPARIN for SUB-Q USE 5,000 UNIT/ML VIAL. SQ SCH ×2 (05:48→13:45)
[2019-03-26 05:57] LABS: HEMATOCRIT 36.1 % (39.0-53.0); HEMOGLOBIN 11.1 g/dL (13.0-17.5); RED BLOOD COUNT 4.6 x10^6/uL (4.30-5.70); RED CELL DISTRIBUTION WIDTH 18.9 % (11.5-14.5); WHITE BLOOD COUNT 9.3 x10^3/uL (4.0-11.0)
[2019-03-26 06:12] LABS: ALBUMIN 2.3 g/dL (3.4-5.0); CALCIUM 9.5 mg/dL (8.5-10.1); CREATININE 0.8 mg/dL (0.7-1.3); GFR 124.8; PHOSPHORUS 3.8 mg/dL (2.6-4.7); POTASSIUM 4.8 mmol/L (3.5-5.1)
[2019-03-26] MEDS: IPRATRPIUM/ALBUTEROL 0.5/2.5MG 3 ML NEBU. NEB SCH ×4 (08:08→20:28)
[2019-03-26 08:22] LABS: BASE EXCESS ABG 7 mmol/L (-3-3); HCO3 ABG 33 mmol/L (21-28); PCO2 ABG 54 mmHg (35-46); PO2 ABG 76 mmHg (75-108); SAT O2 ABG 95 % (92-99)
--- NOTE | 2019-03-26 08:52 | RAD ---
EXAM: AP View of the chest DATE: 03/26/2019 7:00 AM INDICATION: Intubation, respiratory failure COMPARISON: 03/25/2019, 03/24/2019 FINDINGS: ET tube tip terminates approximately 6 cm above the mariely. Enteric tube extends beyond the diaphragm tip is not visualized possibly given radiographic technique or exclusion from imaging [id number]. Right upper extremity tip projects over the expected distal SVC. Cardiomediastinal silhouette is stable including enlarged cardiac silhouette. Moderate right pleural effusion, mildly increased. Bilateral perihilar and lung base airspace opacities have progressed No pneumothorax. IMPRESSION: 1. Progressing right pleural effusion, perihilar and lung base airspace opacities suggests progressing pulmonary edema. 2. Support lines and tubes as described in detail above. Electronically signed by: Lawrence Martinez MD (03/26/2019 8:49 AM) [facility]
[2019-03-26] MEDS: ASPIRIN CHEWABLE 81 MG TABLET. PO SCH (08:54)
[2019-03-26] MEDS: FAMOTIDINE 20 MG/2 ML VIAL IVP SCH (08:54)
[2019-03-26] MEDS: CHLORHEXIDINE 0.12% 15 ML MOUTHWASH. MM SCH (08:55)
[2019-03-26] MEDS: amLODIPine BESYLATE 10 MG TABLET PO SCH (08:55)
[2019-03-26] MEDS: LISINOPRIL 5 MG TABLET. PO SCH (08:55)
[2019-03-26 09:08] LABS: FIO2 ABG 65
--- NOTE | 2019-03-26 09:17 | PDOC ---
PULMONARY PROGRESS NOTES Subjective remains on vent, sedated on fentanyl, versed, and propofol-- Now on 60% FIO2, 10 of PEEP remains critically ill but improving Vitals Vital Signs Date Time Temp Pulse Resp B/P (MAP) Pulse Ox O2 Delivery O2 Flow Rate FiO2 03/26/19 08:09 98 Ventilator 03/26/19 07:00 73 16 151/75 (100) 03/26/19 04:00 97.8 97.8 03/26/19 03:12 70.0 Comments unable to obtain 2/2 vent/sedation Lungs: Other (decrease bs) Cardiovascular: S1, S2 Abdomen: Soft, Non-tender, Other (obese) Extremities: Other (lymphedema BLE ) Skin: Warm, Dry Labs Laboratory Tests Test 03/24/19 12:04 03/24/19 17:17 03/25/19 00:03 03/25/19 05:51 Glucose (Fingerstick) 111 mg/dL (70-99) 124 mg/dL (70-99) 110 mg/dL (70-99) 123 mg/dL (70-99) Test 03/25/19 08:05 03/25/19 10:10 03/25/19 17:51 03/26/19 00:33 O2 Saturation 95 % (92-99) Arterial Blood pH 7.41 (7.35-7.45) Arterial Blood pCO2 at Patient Temp 59 mmHg (35-46) Arterial Blood pO2 at Patient Temp 80 mmHg (75-108) Arterial Blood HCO3 37 mmol/L (21-28) Arterial Blood Base Excess 10 mmol/L (-3-3) FiO2 70 Sodium Level 150 mmol/L (136-145) Potassium Level 4.6 mmol/L (3.5-5.1) Chloride Level 110 mmol/L (98-107) Carbon Dioxide Level 38 mmol/L (21-32) Anion Gap 2 (6-14) Blood Urea Nitrogen 65 mg/dL (8-26) Creatinine 0.9 mg/dL (0.7-1.3) Estimated GFR (Cockcroft-Gault) 109.0 Glucose Level 135 mg/dL (70-99) Calcium Level 9.0 mg/dL (8.5-10.1) Phosphorus Level 3.8 mg/dL (2.6-4.7) Albumin 2.0 g/dL (3.4-5.0) Glucose (Fingerstick) 137 mg/dL (70-99) 151 mg/dL (70-99) Test 03/26/19 05:30 03/26/19 05:42 03/26/19 08:00 White Blood Count 9.3 x10^3/uL (4.0-11.0) Red Blood Count 4.60 x10^6/uL (4.30-5.70) Hemoglobin 11.1 g/dL (13.0-17.5) Hematocrit 36.1 % (39.0-53.0) Mean Corpuscular Volume 79 fL (79-100) Mean Corpuscular Hemoglobin 24 pg (25-35) Mean Corpuscular Hemoglobin Concent 31 g/dL (31-37) Red Cell Distribution Width 18.9 % (11.5-14.5) Platelet Count 244 x10^3/uL (140-400) Sodium Level 147 mmol/L (136-145) Potassium Level 4.8 mmol/L (3.5-5.1) Chloride Level 110 mmol/L (98-107) Carbon Dioxide Level 36 mmol/L (21-32) Anion Gap 1 (6-14) Blood Urea Nitrogen 67 mg/dL (8-26) Creatinine 0.8 mg/dL (0.7-1.3) Estimated GFR (Cockcroft-Gault) 124.8 Glucose Level 139 mg/dL (70-99) Calcium Level 9.5 mg/dL (8.5-10.1) Phosphorus Level 3.8 mg/dL (2.6-4.7) Albumin 2.3 g/dL (3.4-5.0) Glucose (Fingerstick) 131 mg/dL (70-99) O2 Saturation 95 % (92-99) Arterial Blood pH 7.40 (7.35-7.45) Arterial Blood pCO2 at Patient Temp 54 mmHg (35-46) Arterial Blood pO2 at Patient Temp 76 mmHg (75-108) Arterial Blood HCO3 33 mmol/L (21-28) Arterial Blood Base Excess 7 mmol/L (-3-3) FiO2 65 Laboratory Tests Test 03/25/19 10:10 03/25/19 17:51 03/26/19 00:33 03/26/19 05:30 Sodium Level 150 mmol/L (136-145) 147 mmol/L (136-145) Potassium Level 4.6 mmol/L (3.5-5.1) 4.8 mmol/L (3.5-5.1) Chloride Level 110 mmol/L (98-107) 110 mmol/L (98-107) Carbon Dioxide Level 38 mmol/L (21-32) 36 mmol/L (21-32) Anion Gap 2 (6-14) 1 (6-14) Blood Urea Nitrogen 65 mg/dL (8-26) 67 mg/dL (8-26) Creatinine 0.9 mg/dL (0.7-1.3) 0.8 mg/dL (0.7-1.3) Estimated GFR (Cockcroft-Gault) 109.0 124.8 Glucose Level 135 mg/dL (70-99) 139 mg/dL (70-99) Calcium Level 9.0 mg/dL (8.5-10.1) 9.5 mg/dL (8.5-10.1) Phosphorus Level 3.8 mg/dL (2.6-4.7) 3.8 mg/dL (2.6-4.7) Albumin 2.0 g/dL (3.4-5.0) 2.3 g/dL (3.4-5.0) Glucose (Fingerstick) 137 mg/dL (70-99) 151 mg/dL (70-99) White Blood Count 9.3 x10^3/uL (4.0-11.0) Red Blood Count 4.60 x10^6/uL (4.30-5.70) Hemoglobin 11.1 g/dL (13.0-17.5) Hematocrit 36.1 % (39.0-53.0) Mean Corpuscular Volume 79 fL (79-100) Mean Corpuscular Hemoglobin 24 pg (25-35) Mean Corpuscular Hemoglobin Concent 31 g/dL (31-37) Red Cell Distribution Width 18.9 % (11.5-14.5) Platelet Count 244 x10^3/uL (140-400) Test 03/26/19 05:42 03/26/19 08:00 Glucose (Fingerstick) 131 mg/dL (70-99) O2 Saturation 95 % (92-99) Arterial Blood pH 7.40 (7.35-7.45) Arterial Blood pCO2 at Patient Temp 54 mmHg (35-46) Arterial Blood pO2 at Patient Temp 76 mmHg (75-108) Arterial Blood HCO3 33 mmol/L (21-28) Arterial Blood Base Excess 7 mmol/L (-3-3) FiO2 65 Medications Active Scripts Medications Dose Route/Sig Max Daily Dose Days Date Category Hydrochlorothiazide Tablet (Hydrochlorothiazide) 25 Mg Tablet 25 Mg PO DAILY 03/10/19 Reported Norvasc (Amlodipine Besylate) 5 Mg Tablet 1 Tab PO DAILY 01/12/19 Rx Lisinopril 5 Mg Tablet 1 Tab PO DAILY 01/12/19 Rx Impression . 1. Acute hypercarbic/hypoxic respiratory Failure due to ARDS , vapping related,oxygenation slowly improving on 60%, and PEEP of 10 2. Suspected VAP ABX per ID , stable on Abx 3.Hypertension (controlled) 4. Pre-renal Azotemia 5. Pulm. HTN PA pressure 55 Normal EF 6. Possible non-ST myocardial infarction. 7. HX. of tobacco use 8. Morbid obesity Plan . 1. Continue with present assist control mode. wean PEEP to 10,%FIO2 60%. titrate fi02 to keep sat 92%, make necessary adjustment based on followup ABGs. cont vent support. 2. high dose steroids ,initiated 03/16 , cont. taper 3. Abx per ID, check all new cultures, off abx at this time 4. Monitor fever and white cell count.overall no further fever 5. Continue bronchodilators. 6. Heparin for DVT prophylaxis 7 off lasix drip due to increase azotemia .renal following 8. Remains critically ill, will need tracheostomy and LTACH in future once O2 requirement improves 9. DNR.Continue aggressive supportive care discussed with RN and RT. We will follow along with you. MARIO ALLEN MD Mar 26, 2019 09:17
--- NOTE | 2019-03-26 09:51 | PDOC ---
[employer] PROGRESS NOTE Chief Complaint Chief Complaint Acute Hypercapnic Respiratory Failure/ARDS due to vaping Pulmonary Edema Bilateral Lung Infiltrates Obstructive sleep apnea OSMAN Increased Troponin Morbid Obesity Pulmonary HTN Tobacco use History of Present Illness History of Present Illness 03/26/19 Pt seen and examined in ICU Pt is sedated and on ventilation (Vent settings: AC/16/600/60% 10 PEEP) Pt heart rate was in 50s Chart and labs reviewed JUANA RN 03/25/19 Pt seen and examined in the ICU Pt is sedated and on ventilation (Vent settings: AC/16/600/65% 11 PEEP) Chart and labs reviewed JUANA RN 03/24/19 Pt seen and examined in the ICU Pt is on ventilation (Vent settings: AC/16/600/70% 13 PEEP) Chart and labs reviewed JUANA RN 03/23/19 Pt seen/examined in the ICU Pt is still on ventilation (Vent settings: AC/16/600/80% 13 PEEP) JUANA RN Chart and labs reviewed 03/22/19 Pt seen/examined in the ICU Pt is still on ventilation (Vent settings: AC/16/600/80% 13 PEEP) JUANA RN Chart and labs reviewed Chart Reviewed 03/21/19 Pt seen and examined in the ICU Pt still on ventilation (vent settings: AC/16/600/75% 13 PEEP) JAUNA Pulm DESIGN PAINTER regarding starting patient on home medications for HTN 9�13�2019 Patient seen and examined in the ICU He is still ventilated AC/16/600/80% 14 PEEP 03/19/19 Pt seen and examined in ICU on vent (vent settings: AC/16/600/85% 14 PEEP) Pt responsive to voice In mitts for pt safety Pt sedated with versed, fentanyl, and precedex Rectal tube intact Font[place] to BSD Has OG tube to LIS; ET tube placed JUANA RN 03/18/19 Pt seen and examined in ICU on vent (vent settings: AC/16/00/100% 14 PEEP) Pt sedated with versed, fentanyl, and precedex Rectal tube placed Font[place] to BSD Has OG tube to LIS; ET tube placed JUANA RN Chart reviewed 03/17/19 Pt seen and examined in ICU on vent (AC/16/600/100 14peep) Pt has rectal tube and fontana to BSD Sedated with versed, fentanyl, and precedex Pt has ET tube and OG tube to LIS DW RN DW watch case polisher Chart reviewed Vitals/I&O Vitals/I&O: Vital Signs Date Time Temp Pulse Resp B/P (MAP) Pulse Ox O2 Delivery O2 Flow Rate FiO2 03/26/19 09:00 62 16 137/76 (96) 99 Ventilator 03/26/19 08:00 97.8 97.8 03/26/19 03:12 70.0 I & O 03/25/19 03/25/19 03/26/19 15:00 23:00 07:00 Intake Total 400 ml 2316.67 ml 2076.27 ml Output Total 1375 ml 1000 ml 1195 ml Balance -975 ml 1316.67 ml 881.27 ml Physical Exam Physical Exam: GENERAL: Orally intubated/ sedated - lightly, HEENT: opened eyes Pupils equal, nml conj OGT/ETT NECK: Supple LUNGS: dec bs at bases HEART: S1 and S2, regular. ABDOMEN: Obese, soft, +BS : Fontana in place fecal tube in place EXTREMITIES: Trace edema - MITTS SKIN: Chronic stasis dermatitis on the lower extremity. NEUROLOGIC: Sedated IVS; Old RIJ site clean. RUE - PICC clean General: No acute distress, Other (short neck , Mallampati 4 ON VENT) Heart: Regular rate (SR), Other (distante heart sounds) Lungs: Other (decrease bs) Abdomen: Normal bowel sounds, Soft, No tenderness, No hepatosplenomegaly, No masses Extremities: No clubbing, No cyanosis, No edema, Normal pulses, No tenderness/swelling Skin: No rashes, No breakdown, No significant lesion Labs Labs: Laboratory Tests Test 03/25/19 10:10 03/25/19 17:51 03/26/19 00:33 03/26/19 05:30 Sodium Level 150 mmol/L (136-145) 147 mmol/L (136-145) Potassium Level 4.6 mmol/L (3.5-5.1) 4.8 mmol/L (3.5-5.1) Chloride Level 110 mmol/L (98-107) 110 mmol/L (98-107) Carbon Dioxide Level 38 mmol/L (21-32) 36 mmol/L (21-32) Anion Gap 2 (6-14) 1 (6-14) Blood Urea Nitrogen 65 mg/dL (8-26) 67 mg/dL (8-26) Creatinine 0.9 mg/dL (0.7-1.3) 0.8 mg/dL (0.7-1.3) Estimated GFR (Cockcroft-Gault) 109.0 124.8 Glucose Level 135 mg/dL (70-99) 139 mg/dL (70-99) Calcium Level 9.0 mg/dL (8.5-10.1) 9.5 mg/dL (8.5-10.1) Phosphorus Level 3.8 mg/dL (2.6-4.7) 3.8 mg/dL (2.6-4.7) Albumin 2.0 g/dL (3.4-5.0) 2.3 g/dL (3.4-5.0) Glucose (Fingerstick) 137 mg/dL (70-99) 151 mg/dL (70-99) White Blood Count 9.3 x10^3/uL (4.0-11.0) Red Blood Count 4.60 x10^6/uL (4.30-5.70) Hemoglobin 11.1 g/dL (13.0-17.5) Hematocrit 36.1 % (39.0-53.0) Mean Corpuscular Volume 79 fL (79-100) Mean Corpuscular Hemoglobin 24 pg (25-35) Mean Corpuscular Hemoglobin Concent 31 g/dL (31-37) Red Cell Distribution Width 18.9 % (11.5-14.5) Platelet Count 244 x10^3/uL (140-400) Test 03/26/19 05:42 03/26/19 08:00 Glucose (Fingerstick) 131 mg/dL (70-99) O2 Saturation 95 % (92-99) Arterial Blood pH 7.40 (7.35-7.45) Arterial Blood pCO2 at Patient Temp 54 mmHg (35-46) Arterial Blood pO2 at Patient Temp 76 mmHg (75-108) Arterial Blood HCO3 33 mmol/L (21-28) Arterial Blood Base Excess 7 mmol/L (-3-3) FiO2 65 Review of Systems Review of Systems: Unable to obtain due to sedation Assessment and Plan Assessmemt and Plan Problems Medical Problems: (1) CHF exacerbation Status: Acute (2) COPD exacerbation Status: Acute (3) Hypoxia Status: Acute (4) NSTEMI (non-ST elevated myocardial infarction) Status: Acute (5) Respiratory failure Status: Acute Assessment Acute Hypercapnic Respiratory Failure/ARDS due to vaping Pulmonary Edema Bilateral Lung Infiltrates Obstructive sleep apnea OSMAN Increased Troponin Morbid Obesity Pulmonary HTN Tobacco use Consulted cardiology for bradycardia Plan ICU monitoring Vent weaning IV steroids OG feeds PPN Monitor rectal tube Font[place] to BSD Continue IV Abx (zyvox) Sedated with Versed, Fentanyl, and Propofol Home Meds Lasix drip Prognosis guarded DVT prophylaxis DNR Total time32 min Comment Review of Relevant I have reviewed the following items peter (where applicable) has been applied. TRICIA NAVA III DO Mar 26, 2019 09:51
--- NOTE | 2019-03-26 11:13 | PDOC ---
SUBJECTIVE ROS Stable OBJECTIVE Vital Signs Vital Signs Date Time Temp Pulse Resp B/P (MAP) Pulse Ox O2 Delivery O2 Flow Rate FiO2 03/26/19 10:14 98 Ventilator 03/26/19 10:13 16 03/26/19 10:00 53 102/55 (71) 03/26/19 08:00 97.8 97.8 03/26/19 03:12 70.0 I & 0 Intake and Output 03/26/19 07:00 Intake Total 4792.94 ml Output Total 3570 ml Balance 1222.94 ml IV Total 1110.94 ml Tube Feeding 2482 ml Other 1200 ml Output Urine Total 3570 ml Gastric Drainage Total 0 ml PHYSICAL EXAM Physical Exam GENERAL: Orally intubated HEENT: OGT/ETT NECK: Supple LUNGS: decreased bs at bases HEART: S1 and S2, regular. ABDOMEN: Obese, soft, +BS : Ramos + EXTREMITIES: Trace edema SKIN: , Chronic stasis dermatitis on the lower extremity. NEUROLOGIC: Sedated DIAGNOSIS/ASSESSMENT Assessment & Plan OSMAN- 2/2 to overdiuresis Improved after holding Lasix gtt dced 03/23 CTA on 03/10 Supportive care, Monitor , Avoid Nephrotoxins CKD stage 2 baseline Cr appears to be 1.2 Hypernatremia- improving Acute hypercapnic respiratory - acute lung injury/noncardiogenic pulmonary edema/ ARDS due to vaping vs [id number] right heart failure with worsening hypercapnia. CHF- Per cardiology On IV Lasix gtt- held due to worsening renal function Super morbid Obesity Vaping Will sign off COMMENT/RELEVANT DATA Meds Current Medications Medications (Trade) Dose Ordered Sig/Stefanie Start Time Stop Time Status Last Admin Dose Admin Albuterol/ Ipratropium (Duoneb) 3 ml RTQID 03/10/19 12:00 03/26/19 08:08 3 ML Amlodipine Besylate (Norvasc) 10 mg DAILY 03/21/19 11:30 03/25/19 12:06 10 MG Artificial Tears (Artificial Tears) 1 drop PRN Q1HR PRN 03/10/19 07:30 03/13/19 13:32 1 DROP Aspirin (Aspirin Rectal Supp) 300 mg 1X ONCE 03/10/19 00:00 03/10/19 00:01 DC 03/10/19 03:42 300 MG Aspirin (Amanda Aspirin) 325 mg 1X ONCE 03/10/19 10:30 03/10/19 10:31 DC 03/10/19 10:55 325 MG Aspirin (Children'S Aspirin) 81 mg [id number] 03/11/19 08:00 03/26/19 08:55 81 MG Atropine Sulfate (ATROPINE 0.5mg SYRINGE) 0.5 mg PRN Q5MIN PRN 03/12/19 20:30 Bumetanide (Bumex) 1 mg 1X ONCE 03/10/19 00:00 03/10/19 00:01 DC 03/10/19 00:21 1 MG Chlorhexidine Gluconate (Peridex) 15 ml BID 03/10/19 09:00 03/26/19 08:55 15 ML Clonidine HCl (Catapres) 0.1 mg 1X ONCE 03/10/19 01:30 03/10/19 01:34 DC Daptomycin 1320 mg/Sodium Chloride 50 ml @ 100 mls/hr ONCE ONCE 03/15/19 13:00 03/16/19 09:33 DC 03/15/19 13:53 100 MLS/HR Daptomycin 1340 mg/Sodium Chloride 50 ml @ 100 mls/hr Q24H 03/16/19 09:00 Cancel Daptomycin 830 mg/ Sodium Chloride 50 ml @ 100 mls/hr Q24H 03/16/19 14:00 03/19/19 07:41 DC 03/18/19 15:03 100 MLS/HR Dexamethasone Sodium Phosphate (Decadron) 10 mg 1X ONCE 03/09/19 22:00 03/09/19 22:01 DC 03/09/19 22:29 10 MG Dexmedetomidine HCl 400 mcg/ Sodium Chloride 100 ml @ 0 mls/hr CONT PRN 03/12/19 20:30 03/26/19 09:22 DC 03/21/19 04:33 21.7 MLS/HR Dextrose 250 ml PRN Q15MIN PRN 03/12/19 16:15 Dextrose (Dextrose 50%-Water Syringe) 12.5 gm PRN Q15MIN PRN 03/12/19 16:15 Etomidate (Amidate) 20 mg STK-MED ONCE 03/10/19 05:15 03/10/19 05:16 DC Famotidine (Pepcid Vial) 20 mg BID 03/10/19 09:00 UNV Fentanyl Citrate (Fentanyl 2ml Vial) 50 mcg PRN Q1HR PRN 03/10/19 07:30 Fentanyl Citrate (Fentanyl 600 Mcg/30 ml INS[employer]OR [employer]ONDING) 600 mcg STK-MED ONCE 03/13/19 17:00 03/17/19 11:02 DC Furosemide (Lasix) 40 mg 1X ONCE 03/16/19 16:30 03/16/19 16:31 DC 03/16/19 16:46 40 MG Furosemide 100 mg/ Sodium Chloride 100 ml @ 5 mls/hr CONT PRN 03/22/19 12:45 03/23/19 17:48 DC 03/22/19 21:38 5 MLS/HR Heparin Sodium (Porcine) (Heparin Sodium) 5,000 unit Q8HRS 03/11/19 22:00 03/26/19 05:48 5,000 UNIT Heparin Sodium/ Dextrose 500 ml @ 0 mls/hr CONT PRN 03/09/19 23:45 03/11/19 16:13 DC 03/10/19 23:34 1,300 MLS/HR Hydralazine HCl (Apresoline Inj) 10 mg PRN Q4HRS PRN 03/11/19 13:00 03/22/19 06:13 10 MG Hydrochlorothiazide (Hydrodiuril) 25 mg DAILY 03/10/19 09:00 03/10/19 10:04 DC 03/10/19 09:13 25 MG Info (CONTRAST GIVEN -- Rx MONITORING) 1 each PRN DAILY PRN 03/10/19 11:45 03/12/19 11:44 DC Insulin Human Lispro (HumaLOG) 0-9 UNITS Q6HRS 03/12/19 18:00 03/26/19 00:37 4 UNITS Iohexol (Omnipaque 350 Mg/ml) 100 ml 1X ONCE 03/10/19 11:45 03/10/19 11:47 DC 03/10/19 14:05 100 ML Levofloxacin/ Dextrose 100 ml @ 100 mls/hr Q24H 03/10/19 09:00 03/14/19 09:25 DC 03/14/19 08:10 100 MLS/HR Levofloxacin/ Dextrose (Levaquin Per Pharmacy) 1 each PRN DAILY PRN 03/10/19 08:15 03/14/19 09:25 DC Linezolid/Dextrose 300 ml @ 300 mls/hr Q12HR 03/11/19 21:00 03/23/19 07:48 DC 03/22/19 21:38 300 MLS/HR Lisinopril (Prinivil) 5 mg DAILY 03/21/19 11:30 03/25/19 12:06 5 MG Lorazepam (Ativan Inj) 2 mg PRN Q1HR PRN 03/19/19 10:45 03/20/19 17:11 2 MG Magnesium Sulfate/ Dextrose 100 ml @ 50 mls/hr DAILY 03/11/19 09:00 03/14/19 08:59 DC 03/11/19 09:28 50 MLS/HR Methylprednisolone Sodium Succinate (SOLU-Medrol 125MG VIAL) 50 mg Q8HRS 03/23/19 14:00 03/26/19 05:48 50 MG Midazolam HCl 100 ml @ 0 mls/hr CONT PRN 03/10/19 07:30 03/26/19 00:29 6 MLS/HR Midazolam HCl (Versed) 5 mg 1X ONCE 03/10/19 01:30 03/10/19 01:34 DC 03/10/19 01:28 5 MG Morphine Sulfate (Morphine Sulfate) 4 mg PRN Q1HR PRN 03/10/19 07:30 Multi-Ingred Cream/Lotion/Oil/ Oint (Artificial Tears Eye Ointment) 1 zuri PRN Q1HR PRN 03/12/19 09:00 Norepinephrine Bitartrate 250 ml @ 27.837 mls/ hr CONT PRN 03/11/19 13:00 03/26/19 09:22 DC 03/13/19 04:13 1.392 MLS/HR Perflutren Protein Type A Microsphe (Optison) 0.66 mg 1X ONCE 03/13/19 09:15 03/13/19 09:16 DC 03/13/19 09:40 0.66 MG Piperacillin Sod/ Tazobactam Sod (Zosyn Per Pharmacy) 1 each PRN DAILY PRN 03/10/19 11:45 03/25/19 08:36 DC Piperacillin Sod/ Tazobactam Sod 3.375 gm/Sodium Chloride 50 ml @ 100 mls/hr Q6HRS 03/10/19 12:30 03/24/19 07:24 DC 03/24/19 05:45 100 MLS/HR Piperacillin Sod/ Tazobactam Sod 4.5 gm/Sodium Chloride 100 ml @ 200 mls/hr 1X ONCE 03/10/19 00:30 03/10/19 00:59 DC 03/10/19 05:19 200 MLS/HR Potassium Chloride/Water 50 ml @ 50 mls/hr 1X ONCE 03/12/19 10:30 03/12/19 11:31 DC Potassium Phosphate 27.2 mmol/Sodium Chloride 259.0667 ml @ 64.753 m... 1X ONCE 03/11/19 14:00 03/11/19 18:00 DC Propofol 100 ml @ 0 mls/hr CONT PRN 03/10/19 07:30 03/26/19 10:24 39.1 MLS/HR Rocuronium [place] (Zemuron) 50 mg STK-MED ONCE 03/10/19 05:15 03/10/19 05:15 DC Scopolamine (Transderm-Scop) 1 patch Q3DAYS 03/22/19 11:00 03/25/19 08:47 1 PATCH Sodium Chloride 500 ml @ 500 mls/hr 1X PRN PRN 03/12/19 20:30 03/12/19 23:22 500 MLS/HR Vancomycin HCl (Vanco Per Pharmacy) 1 each PRN DAILY PRN 03/10/19 11:45 03/11/19 13:57 DC 03/11/19 09:42 1 EACH Vancomycin HCl (Vancomycin Trough Level) 1 each 1X ONCE 03/12/19 12:30 03/12/19 12:31 Cancel Vancomycin HCl 1.75 gm/Sodium Chloride 500 ml @ 250 mls/hr Q12H 03/11/19 01:00 03/11/19 13:57 DC 03/11/19 12:43 250 MLS/HR Vancomycin HCl 2 gm/Sodium Chloride 500 ml @ 250 mls/hr 1X ONCE 03/10/19 13:00 03/10/19 14:59 DC 03/10/19 12:41 250 MLS/HR Vecuronium [place] (Norcuron Bolus) 10 mg PRN Q1HR PRN 03/13/19 07:30 03/25/19 10:49 10 MG Lab Laboratory Tests Test 03/25/19 17:51 03/26/19 00:33 03/26/19 05:30 03/26/19 05:42 Glucose (Fingerstick) 137 mg/dL (70-99) 151 mg/dL (70-99) 131 mg/dL (70-99) White Blood Count 9.3 x10^3/uL (4.0-11.0) Red Blood Count 4.60 x10^6/uL (4.30-5.70) Hemoglobin 11.1 g/dL (13.0-17.5) Hematocrit 36.1 % (39.0-53.0) Mean Corpuscular Volume 79 fL (79-100) Mean Corpuscular Hemoglobin 24 pg (25-35) Mean Corpuscular Hemoglobin Concent 31 g/dL (31-37) Red Cell Distribution Width 18.9 % (11.5-14.5) Platelet Count 244 x10^3/uL (140-400) Sodium Level 147 mmol/L (136-145) Potassium Level 4.8 mmol/L (3.5-5.1) Chloride Level 110 mmol/L (98-107) Carbon Dioxide Level 36 mmol/L (21-32) Anion Gap 1 (6-14) Blood Urea Nitrogen 67 mg/dL (8-26) Creatinine 0.8 mg/dL (0.7-1.3) Estimated GFR (Cockcroft-Gault) 124.8 Glucose Level 139 mg/dL (70-99) Calcium Level 9.5 mg/dL (8.5-10.1) Phosphorus Level 3.8 mg/dL (2.6-4.7) Albumin 2.3 g/dL (3.4-5.0) Test 03/26/19 08:00 O2 Saturation 95 % (92-99) Arterial Blood pH 7.40 (7.35-7.45) Arterial Blood pCO2 at Patient Temp 54 mmHg (35-46) Arterial Blood pO2 at Patient Temp 76 mmHg (75-108) Arterial Blood HCO3 33 mmol/L (21-28) Arterial Blood Base Excess 7 mmol/L (-3-3) FiO2 65 Results All relevant outside records, renal labs, imaging studies, telemetry/EKG's were reviewed. Other 1. Progressing right pleural effusion, perihilar and lung base airspace opacities suggests progressing pulmonary edema. 2. Support lines and tubes as described in detail above. SARAH GAYTAN MD Mar 26, 2019 11:13
[2019-03-27] VITALS (24 sets, daily range): BP systolic 94–171; BP diastolic 53–96
[2019-03-27] MEDS: CHLORHEXIDINE 0.12% 15 ML MOUTHWASH. MM SCH ×3 (00:09→20:56)
[2019-03-27] MEDS: FAMOTIDINE 20 MG/2 ML VIAL IVP SCH ×3 (00:10→20:56)
[2019-03-27] MEDS: methylPREDNISolone SOD SUCC PF 125 MG/2 ML VIAL. IV SCH ×2 (00:10→05:28)
[2019-03-27] MEDS: HEPARIN for SUB-Q USE 5,000 UNIT/ML VIAL. SQ SCH ×4 (00:13→20:57)
[2019-03-27] MEDS: PROPOFOL 100 ML IV PRN ×9 (00:16→23:43)
[2019-03-27] MEDS: INSULIN LISPRO 300 UNITS/3 ML VIAL. SQ SCH ×4 (06:00→18:00)
[2019-03-27 06:09] LABS: HEMOGLOBIN 10.8 g/dL (13.0-17.5); RED BLOOD COUNT 4.44 x10^6/uL (4.30-5.70); WHITE BLOOD COUNT 8.8 x10^3/uL (4.0-11.0)
[2019-03-27 06:38] LABS: ALBUMIN 2.3 g/dL (3.4-5.0); CALCIUM 9.6 mg/dL (8.5-10.1); CREATININE 0.8 mg/dL (0.7-1.3); GFR 124.8
[2019-03-27] MEDS: IPRATRPIUM/ALBUTEROL 0.5/2.5MG 3 ML NEBU. NEB SCH ×4 (07:06→19:58)
[2019-03-27 07:16] LABS: BASE EXCESS ABG 5 mmol/L (-3-3); HCO3 ABG 31 mmol/L (21-28); PCO2 ABG 51 mmHg (35-46); PO2 ABG 61 mmHg (75-108); SAT O2 ABG 90 % (92-99)
[2019-03-27 07:21] LABS: FIO2 ABG 60%
[2019-03-27] MEDS: MIDAZOLAM 100mg/100ml NS BAG 100 ML IV PRN ×2 (08:03→20:55)
[2019-03-27] MEDS: ASPIRIN CHEWABLE 81 MG TABLET. PO SCH (08:08)
[2019-03-27] MEDS: LISINOPRIL 5 MG TABLET. PO SCH (08:09)
[2019-03-27] MEDS: amLODIPine BESYLATE 10 MG TABLET PO SCH (08:09)
[2019-03-27] MEDS ORDERED: IV DEXTROSE 5% 250 ML BAG. IV PRN (09:00)
[2019-03-27] MEDS ORDERED: DEXTROSE 50% 25 GM / 50ML DISP.SYRIN. IV PRN (09:00)
[2019-03-27] MEDS ORDERED: INSULIN LISPRO 300 UNITS/3 ML VIAL. SQ SCH (09:30)
--- NOTE | 2019-03-27 09:48 | RAD ---
EXAM: AP View of the chest DATE: 03/27/2019 5:00 AM INDICATION: ARDS COMPARISON: 03/26/2019, 03/25/2019 FINDINGS: ET tube tip terminates approximately 6 cm above the mariely. Right upper extremity PICC tip projects over the distal SVC/cavoatrial junction. Enteric tube extends beyond the diaphragm tip is not visualized. Cardiomediastinal silhouette is stable Moderate cardiomegaly. Bilateral perihilar airspace opacities, lung base airspace opacities and small pleural effusions are essentially stable. No pneumothorax. IMPRESSION: Bilateral perihilar airspace opacities lung base opacities and pleural effusions in conjunction with cardiomegaly, stable. Support lines and tubes, as above. Electronically signed by: Lawrence Martinez MD (03/27/2019 9:44 AM) [facility]
--- NOTE | 2019-03-27 10:17 | PDOC ---
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 ARDS, respiratory failure, COPD Morbid obesity Sepsis Acute renal failure Plan Continue current management No need for anticonvulsants Subjective None Objective Vital Signs Date Time Temp Pulse Resp B/P (MAP) Pulse Ox O2 Delivery O2 Flow Rate FiO2 03/27/19 09:00 74 20 158/94 (115) 93 Ventilator 03/27/19 07:00 98.6 98.6 03/26/19 23:57 70.0 Intake and Output 03/27/19 06:59 Intake Total 4752.61 ml Output Total 3380 ml Balance 1372.61 ml Intake Oral 0 ml IV Total 970.61 ml Tube Feeding 2682 ml Other 1100 ml Output Urine Total 3380 ml PHYSICAL EXAM Sedated on ventilator, squeezes eyes shut when I try to assess pupils, averts face, does not follow commands I was able to observe pupils and eye movements, normal CN: no focal findings. Muscle tone: normal. Muscle strength: moves all extremities DTR: 1+ Plantar reflex: silent Gait: not examined in bed. Sensory exam: no abnormal findings. No cerebellar signs elicited. Review of Relevant I have reviewed the following items peter (where applicable) has been applied. Labs Laboratory Tests Test 03/25/19 17:51 03/26/19 00:33 03/26/19 05:30 03/26/19 05:42 Glucose (Fingerstick) 137 mg/dL (70-99) 151 mg/dL (70-99) 131 mg/dL (70-99) White Blood Count 9.3 x10^3/uL (4.0-11.0) Red Blood Count 4.60 x10^6/uL (4.30-5.70) Hemoglobin 11.1 g/dL (13.0-17.5) Hematocrit 36.1 % (39.0-53.0) Mean Corpuscular Volume 79 fL (79-100) Mean Corpuscular Hemoglobin 24 pg (25-35) Mean Corpuscular Hemoglobin Concent 31 g/dL (31-37) Red Cell Distribution Width 18.9 % (11.5-14.5) Platelet Count 244 x10^3/uL (140-400) Sodium Level 147 mmol/L (136-145) Potassium Level 4.8 mmol/L (3.5-5.1) Chloride Level 110 mmol/L (98-107) Carbon Dioxide Level 36 mmol/L (21-32) Anion Gap 1 (6-14) Blood Urea Nitrogen 67 mg/dL (8-26) Creatinine 0.8 mg/dL (0.7-1.3) Estimated GFR (Cockcroft-Gault) 124.8 Glucose Level 139 mg/dL (70-99) Calcium Level 9.5 mg/dL (8.5-10.1) Phosphorus Level 3.8 mg/dL (2.6-4.7) Albumin 2.3 g/dL (3.4-5.0) Test 03/26/19 08:00 03/26/19 12:00 03/26/19 17:26 03/27/19 00:08 O2 Saturation 95 % (92-99) Arterial Blood pH 7.40 (7.35-7.45) Arterial Blood pCO2 at Patient Temp 54 mmHg (35-46) Arterial Blood pO2 at Patient Temp 76 mmHg (75-108) Arterial Blood HCO3 33 mmol/L (21-28) Arterial Blood Base Excess 7 mmol/L (-3-3) FiO2 65 Glucose (Fingerstick) 121 mg/dL (70-99) 115 mg/dL (70-99) 128 mg/dL (70-99) Test 03/27/19 05:45 03/27/19 05:47 03/27/19 07:10 White Blood Count 8.8 x10^3/uL (4.0-11.0) Red Blood Count 4.44 x10^6/uL (4.30-5.70) Hemoglobin 10.8 g/dL (13.0-17.5) Hematocrit 35.0 % (39.0-53.0) Mean Corpuscular Volume 79 fL (79-100) Mean Corpuscular Hemoglobin 24 pg (25-35) Mean Corpuscular Hemoglobin Concent 31 g/dL (31-37) Red Cell Distribution Width 19.0 % (11.5-14.5) Platelet Count 287 x10^3/uL (140-400) Sodium Level 146 mmol/L (136-145) Potassium Level 5.0 mmol/L (3.5-5.1) Chloride Level 108 mmol/L (98-107) Carbon Dioxide Level 37 mmol/L (21-32) Anion Gap 1 (6-14) Blood Urea Nitrogen 59 mg/dL (8-26) Creatinine 0.8 mg/dL (0.7-1.3) Estimated GFR (Cockcroft-Gault) 124.8 Glucose Level 141 mg/dL (70-99) Calcium Level 9.6 mg/dL (8.5-10.1) Phosphorus Level 4.0 mg/dL (2.6-4.7) Albumin 2.3 g/dL (3.4-5.0) Glucose (Fingerstick) 123 mg/dL (70-99) O2 Saturation 90 % (92-99) Arterial Blood pH 7.39 (7.35-7.45) Arterial Blood pCO2 at Patient Temp 51 mmHg (35-46) Arterial Blood pO2 at Patient Temp 61 mmHg (75-108) Arterial Blood HCO3 31 mmol/L (21-28) Arterial Blood Base Excess 5 mmol/L (-3-3) FiO2 60% Laboratory Tests Test 03/26/19 12:00 03/26/19 17:26 03/27/19 00:08 03/27/19 05:45 Glucose (Fingerstick) 121 mg/dL (70-99) 115 mg/dL (70-99) 128 mg/dL (70-99) White Blood Count 8.8 x10^3/uL (4.0-11.0) Red Blood Count 4.44 x10^6/uL (4.30-5.70) Hemoglobin 10.8 g/dL (13.0-17.5) Hematocrit 35.0 % (39.0-53.0) Mean Corpuscular Volume 79 fL (79-100) Mean Corpuscular Hemoglobin 24 pg (25-35) Mean Corpuscular Hemoglobin Concent 31 g/dL (31-37) Red Cell Distribution Width 19.0 % (11.5-14.5) Platelet Count 287 x10^3/uL (140-400) Sodium Level 146 mmol/L (136-145) Potassium Level 5.0 mmol/L (3.5-5.1) Chloride Level 108 mmol/L (98-107) Carbon Dioxide Level 37 mmol/L (21-32) Anion Gap 1 (6-14) Blood Urea Nitrogen 59 mg/dL (8-26) Creatinine 0.8 mg/dL (0.7-1.3) Estimated GFR (Cockcroft-Gault) 124.8 Glucose Level 141 mg/dL (70-99) Calcium Level 9.6 mg/dL (8.5-10.1) Phosphorus Level 4.0 mg/dL (2.6-4.7) Albumin 2.3 g/dL (3.4-5.0) Test 03/27/19 05:47 03/27/19 07:10 Glucose (Fingerstick) 123 mg/dL (70-99) O2 Saturation 90 % (92-99) Arterial Blood pH 7.39 (7.35-7.45) Arterial Blood pCO2 at Patient Temp 51 mmHg (35-46) Arterial Blood pO2 at Patient Temp 61 mmHg (75-108) Arterial Blood HCO3 31 mmol/L (21-28) Arterial Blood Base Excess 5 mmol/L (-3-3) FiO2 60% Microbiology 03/16/19 - Final, Complete 03/16/19 - Final, Complete 03/16/19 Gram Stain Evaluation - Final, Complete 03/16/19 Sputum Culture - Final, Complete 03/16/19 Sputum Result 1 - Final, Complete 03/16/19 Blood Culture - Final, Complete NO GROWTH AFTER 5 DAYS 03/09/19 Urine Culture - Final, Complete 03/09/19 Urine Culture Result 1 (WIL) - Final, Complete Medications Current Medications Albuterol/ Ipratropium (Duoneb) 3 ml 1X ONCE NEB Last administered on 03/09/19at 21:21; Start 03/09/19 at 21:30; Stop 03/09/19 at 21:31; Status DC Dexamethasone Sodium Phosphate (Decadron) 10 mg 1X ONCE IV Last administered on 03/09/19at 22:29; Start 03/09/19 at 22:00; Stop 03/09/19 at 22:01; Status DC Propofol 100 ml @ 0 mls/hr CONT PRN IV SEE PROTOCOL Last administered on 03/10/19at 07:19; Start 03/09/19 at 22:30; Stop 03/10/19 at 07:28; Status DC Fentanyl Citrate (Fentanyl 2ml Vial) 50 mcg PRN Q1HR PRN IV SEE COMMENTS; Start 03/09/19 at 22:30; Stop 03/10/19 at 07:28; Status DC Chlorhexidine Gluconate (Peridex) 15 ml BID MM Last administered on 03/27/19at 08:10; Start 03/10/19 at 09:00 Famotidine (Pepcid Vial) 20 mg BID IVP Last administered on 03/27/19at 08:09; Start 03/10/19 at 09:00 Propofol 50 ml @ As Directed STK-MED ONCE IV ; Start 03/09/19 at 22:28; Stop 03/09/19 at 22:28; Status DC Albuterol/ Ipratropium (Duoneb) 3 ml 1X ONCE NEB Last administered on 03/10/19at 02:04; Start 03/09/19 at 23:00; Stop 03/09/19 at 23:01; Status DC Albuterol/ Ipratropium (Duoneb) 3 ml 1X ONCE NEB Last administered on 03/10/19at 02:04; Start 03/09/19 at 23:00; Stop 03/09/19 at 23:01; Status DC Fentanyl Citrate (Fentanyl 2ml Vial) 100 mcg 1X ONCE IV Last administered on 03/09/19at 23:31; Start 03/09/19 at 23:30; Stop 03/09/19 at 23:31; Status DC Bumetanide (Bumex) 1 mg 1X ONCE IV Last administered on 03/10/19at 00:21; Start 03/10/19 at 00:00; Stop 03/10/19 at 00:01; Status DC Heparin Sodium (Porcine) (Heparin Sodium) 4,000 unit 1X ONCE IV Last administered on 03/10/19at 00:31; Start 03/10/19 at 00:00; Stop 03/10/19 at 00:01; Status DC Heparin Sodium/ Dextrose 500 ml @ 0 mls/hr CONT PRN IV PER PROTOCOL Last a dministered on 03/10/19at 23:34; Start 03/09/19 at 23:45; Stop 03/11/19 at 16:13; Status DC Heparin Sodium (Porcine) (Heparin Sodium) 5,500 unit PRN Q6HRS PRN IV FOR UFH LEVEL LESS THAN 0.2 Last administered on 03/11/19at 00:57; Start 03/09/19 at 23:45; Stop 03/11/19 at 16:13; Status DC Aspirin (Aspirin Rectal Supp) 300 mg 1X ONCE MD Last administered on 03/10/19at 03:42; Start 03/10/19 at 00:00; Stop 03/10/19 at 00:01; Status DC Propofol 50 ml @ As Directed STK-MED ONCE IV ; Start 03/09/19 at 23:38; Stop 03/09/19 at 23:38; Status DC Propofol 50 ml @ As Directed STK-MED ONCE IV ; Start 03/09/19 at 23:38; Stop 03/09/19 at 23:38; Status DC Piperacillin Sod/ Tazobactam Sod 4.5 gm/Sodium Chloride 100 ml @ 200 mls/hr 1X ONCE IV Last administered on 03/10/19at 05:19; Start 03/10/19 at 00:30; Stop 03/10/19 at 00:59; Status DC Propofol 50 ml @ As Directed STK-MED ONCE IV ; Start 03/10/19 at 00:51; Stop 03/10/19 at 00:51; Status DC Propofol 50 ml @ As Directed STK-MED ONCE IV ; Start 03/10/19 at 01:14; Stop 03/10/19 at 01:15; Status DC Fentanyl Citrate (Fentanyl 2ml Vial) 100 mcg 1X ONCE IV Last administered on 03/10/19at 01:26; Start 03/10/19 at 01:45; Stop 03/10/19 at 01:46; Status DC Clonidine HCl (Catapres) 0.1 mg 1X ONCE PO ; Start 03/10/19 at 01:30; Stop 03/10/19 at 01:34; Status DC Midazolam HCl (Versed) 5 mg 1X ONCE IV Last administered on 03/10/19at 01:28; Start 03/10/19 at 01:30; Stop 03/10/19 at 01:34; Status DC Propofol 50 ml @ As Directed STK-MED ONCE IV ; Start 03/10/19 at 02:08; Stop 03/10/19 at 02:09; Status DC Propofol 50 ml @ As Directed STK-MED ONCE IV ; Start 03/10/19 at 02:36; Stop 03/10/19 at 02:36; Status DC Rocuronium Goff (Zemuron) 50 mg STK-MED ONCE .ROUTE ; Start 03/10/19 at 05:15; Stop 03/10/19 at 05:15; Status DC Etomidate (Amidate) 20 mg STK-MED ONCE IV ; Start 03/10/19 at 05:15; Stop 03/10/19 at 05:16; Status DC Fentanyl Citrate 30 ml @ 0 mls/hr CONT PRN IV SEE PROTOCOL Last administered on 03/27/19at 05:30; Start 03/10/19 at 07:30 Propofol 100 ml @ 0 mls/hr CONT PRN IV SEE PROTOCOL Last administered on 03/27/19at 08:04; Start 03/10/19 at 07:30 Fentanyl Citrate (Fentanyl 2ml Vial) 25 mcg PRN Q1HR PRN IV SEE COMMENTS; Start 03/10/19 at 07:30 Fentanyl Citrate (Fentanyl 2ml Vial) 50 mcg PRN Q1HR PRN IV SEE COMMENTS; Start 03/10/19 at 07:30 Artificial Tears (Artificial Tears) 1 drop PRN Q1HR PRN OU DRY EYE, 1ST CHOICE Last administered on 03/13/19at 13:32; Start 03/10/19 at 07:30 Famotidine (Pepcid Vial) 20 mg BID IVP ; Start 03/10/19 at 09:00; Status UNV Morphine Sulfate (Morphine Sulfate) 2 mg PRN Q1HR PRN IV SEE COMMENTS. Last administered on 03/25/19at 09:18; Start 03/10/19 at 07:30 Morphine Sulfate (Morphine Sulfate) 4 mg PRN Q1HR PRN IV SEE COMMENTS.; Start 03/10/19 at 07:30 Midazolam HCl 100 ml @ 0 mls/hr CONT PRN IV SEE PROTOCOL Last administered on 03/27/19at 08:04; Start 03/10/19 at 07:30 Levofloxacin/ Dextrose (Levaquin Per Pharmacy) 1 each PRN DAILY PRN MC SEE COMMENTS; Start 03/10/19 at 08:15; Stop 03/14/19 at 09:25; Status DC Albuterol/ Ipratropium (Duoneb) 3 ml RTQID NEB Last administered on 03/27/19at 07:06; Start 03/10/19 at 12:00 Sodium Chloride 1,000 ml @ 100 mls/hr Q10H IV Last administered on 03/10/19at 23:34; Start 03/10/19 at 08:15; Stop 03/11/19 at 16:02; Status DC Amlodipine Besylate (Norvasc) 5 mg DAILY PO Last administered on 03/10/19at 09:13; Start 03/10/19 at 09:00; Stop 03/10/19 at 10:04; Status DC Hydrochlorothiazide (Hydrodiuril) 25 mg DAILY PO Last administered on 03/10/19at 09:13; Start 03/10/19 at 09:00; Stop 03/10/19 at 10:04; Status DC Lisinopril (Prinivil) 5 mg DAILY PO Last administered on 03/10/19at 09:13; Start 03/10/19 at 09:00; Stop 03/10/19 at 10:04; Status DC Levofloxacin/ Dextrose 100 ml @ 100 mls/hr Q24H IV Last administered on 03/14/19at 08:10; Start 03/10/19 at 09:00; Stop 03/14/19 at 09:25; Status DC Aspirin (Amanda Aspirin) 325 mg 1X ONCE PO Last administered on 03/10/19at 10:55; Start 03/10/19 at 10:30; Stop 03/10/19 at 10:31; Status DC Aspirin (Children'S Aspirin) 81 mg DAILYWBKFT PO Last administered on 03/27/19at 08:09; Start 03/11/19 at 08:00 Amlodipine Besylate (Norvasc) 10 mg DAILY PO Last administered on 03/11/19at 09:37; Start 03/11/19 at 09:00; Stop 03/11/19 at 12:50; Status DC Hydralazine HCl (Apresoline Inj) 10 mg PRN Q4HRS PRN IVP ELEVATED BP, SEE COMMENTS; Start 03/10/19 at 10:15; Stop 03/12/19 at 09:37; Status DC Furosemide (Lasix) 40 mg DAILY IVP Last administered on 03/11/19at 09:37; Start 03/10/19 at 11:00; Stop 03/11/19 at 11:24; Status DC Insulin Human Lispro (HumaLOG) 0-9 UNITS TIDWMEALS SQ ; Start 03/10/19 at 12:00; Stop 03/10/19 at 17:57; Status DC Dextrose (Dextrose 50%-Water Syringe) 12.5 gm PRN Q15MIN PRN IV SEE COMMENTS; Start 03/10/19 at 11:15; Stop 03/12/19 at 16:47; Status DC Dextrose 250 ml PRN Q15MIN PRN IV SEE COMMENTS; Start 03/10/19 at 11:15; Stop 03/10/19 at 11:05; Status DC Iohexol (Omnipaque 350 Mg/ml) 100 ml 1X ONCE IV Last administered on 03/10/19at 14:05; Start 03/10/19 at 11:45; Stop 03/10/19 at 11:47; Status DC Info (CONTRAST GIVEN -- Rx MONITORING) 1 each PRN DAILY PRN MC SEE COMMENTS; Start 03/10/19 at 11:45; Stop 03/12/19 at 11:44; Status DC Piperacillin Sod/ Tazobactam Sod (Zosyn Per Pharmacy) 1 each PRN DAILY PRN MC SEE COMMENTS; Start 03/10/19 at 11:45; Stop 03/25/19 at 08:36; Status DC Vancomycin HCl (Vanco Per Pharmacy) 1 each PRN DAILY PRN MC SEE COMMENTS Last administered on 03/11/19at 09:42; Start 03/10/19 at 11:45; Stop 03/11/19 at 13:57; Status DC Vancomycin HCl 2 gm/Sodium Chloride 500 ml @ 250 mls/hr 1X ONCE IV Last administered on 03/10/19at 12:41; Start 03/10/19 at 13:00; Stop 03/10/19 at 14:59; Status DC Piperacillin Sod/ Tazobactam Sod 3.375 gm/Sodium Chloride 50 ml @ 100 mls/hr Q6HRS IV Last administered on 03/24/19at 05:45; Start 03/10/19 at 12:30; Stop 03/24/19 at 07:24; Status DC Vancomycin HCl 1.75 gm/Sodium Chloride 500 ml @ 250 mls/hr Q12H IV Last administered on 03/11/19at 12:43; Start 03/11/19 at 01:00; Stop 03/11/19 at 13:57; Status DC Vancomycin HCl (Vancomycin Trough Level) 1 each 1X ONCE MC ; Start 03/12/19 at 12:30; Stop 03/12/19 at 12:31; Status Cancel Insulin Human Lispro (HumaLOG) 0-9 UNITS Q6HRS SQ ; Start 03/11/19 at 00:00; Stop 03/27/19 at 09:06; Status DC Magnesium Sulfate/ Dextrose 100 ml @ 50 mls/hr DAILY IV Last administered on 03/11/19at 09:28; Start 03/11/19 at 09:00; Stop 03/14/19 at 08:59; Status DC Potassium Phosphate 27.2 mmol/Sodium Chloride 259.0667 ml @ 64.753 m... 1X ONCE IV Last administered on 03/11/19at 09:28; Start 03/11/19 at 10:00; Stop 03/11/19 at 14:00; Status DC Potassium Phosphate 27.2 mmol/Sodium Chloride 259.0667 ml @ 64.753 m... 1X ONCE IV ; Start 03/11/19 at 14:00; Stop 03/11/19 at 18:00; Status DC Lorazepam (Ativan Inj) 1 mg PRN Q1HR PRN IV ANXIETY Last administered on 03/14/19at 16:32; Start 03/11/19 at 11:00; Stop 03/19/19 at 10:31; Status DC Sodium Chloride 1,000 ml @ 1,000 mls/hr 1X ONCE IV Last administered on 03/11/19at 12:06; Start 03/11/19 at 11:30; Stop 03/11/19 at 12:29; Status DC Norepinephrine Bitartrate 250 ml @ 27.837 mls/ hr CONT PRN IV SEE I/O RECORD Last administered on 03/13/19at 04:13; Start 03/11/19 at 13:00; Stop 03/26/19 at 09:22; Status DC Hydralazine HCl (Apresoline Inj) 10 mg PRN Q4HRS PRN IVP ELEVATED BP, SEE COMMENTS Last administered on 03/22/19at 06:13; Start 03/11/19 at 13:00 Linezolid/Dextrose 300 ml @ 300 mls/hr Q12HR IV Last administered on 03/22/19at 21:38; Start 03/11/19 at 21:00; Stop 03/23/19 at 07:48; Status DC Potassium Chloride/Water 50 ml @ 50 mls/hr Q1H IV Last administered on 03/11/19at 17:28; Start 03/11/19 at 16:00; Stop 03/11/19 at 17:59; Status DC Heparin Sodium (Porcine) (Heparin Sodium) 5,000 unit Q8HRS SQ Last administered on 03/27/19at 05:30; Start 03/11/19 at 22:00 Multi-Ingred Cream/Lotion/Oil/ Oint (Artificial Tears Eye Ointment) 1 zuri PRN Q1HR PRN OU DRY EYE; Start 03/12/19 at 09:00 Potassium Chloride/Water 50 ml @ 50 mls/hr 1X ONCE IV Last administered on 03/12/19at 09:44; Start 03/12/19 at 10:00; Stop 03/12/19 at 10:59; Status DC Potassium Chloride/Water 50 ml @ 50 mls/hr 1X ONCE IV ; Start 03/12/19 at 10:30; Stop 03/12/19 at 11:31; Status DC Insulin Human Lispro (HumaLOG) 0-9 UNITS TIDWMEALS SQ ; Start 03/12/19 at 17:00; Stop 03/12/19 at 16:24; Status DC Dextrose (Dextrose 50%-Water Syringe) 12.5 gm PRN Q15MIN PRN IV SEE COMMENTS; Start 03/12/19 at 16:15 Dextrose 250 ml PRN Q15MIN PRN IV SEE COMMENTS; Start 03/12/19 at 16:15; Stop 03/27/19 at 08:59; Status DC Insulin Human Lispro (HumaLOG) 0-9 UNITS Q6HRS SQ Last administered on 03/26/19at 00:37; Start 03/12/19 at 18:00 Dexmedetomidine HCl 400 mcg/ Sodium Chloride 100 ml @ 0 mls/hr CONT PRN IV ANXIETY / AGITATION Last administered on 03/21/19at 04:33; Start 03/12/19 at 20:30; Stop 03/26/19 at 09:22; Status DC Sodium Chloride 500 ml @ 500 mls/hr 1X PRN PRN IV see comments Last administered on 03/12/19at 23:22; Start 03/12/19 at 20:30 Atropine Sulfate (ATROPINE 0.5mg SYRINGE) 0.5 mg PRN Q5MIN PRN IV SEE COMMENTS; Start 03/12/19 at 20:30 Vecuronium Goff (Norcuron Bolus) 10 mg PRN Q1HR PRN IV ON VENT/RESP FAILURE Last administered on 03/25/19at 10:49; Start 03/13/19 at 07:30 Perflutren Protein Type A Microsphe (Optison) 0.66 mg STK-MED ONCE IV ; Start 03/13/19 at 09:08; Stop 03/13/19 at 09:08; Status DC Perflutren Protein Type A Microsphe (Optison) 0.66 mg 1X ONCE IV Last administered on 03/13/19at 09:40; Start 03/13/19 at 09:15; Stop 03/13/19 at 09:16; Status DC Furosemide (Lasix) 40 mg 1X ONCE IVP Last administered on 03/13/19at 13:32; Start 03/13/19 at 10:30; Stop 03/13/19 at 10:31; Status DC Daptomycin 1320 mg/Sodium Chloride 50 ml @ 100 mls/hr ONCE ONCE IV Last administered on 03/15/19at 13:53; Start 03/15/19 at 13:00; Stop 03/16/19 at 09:33; Status DC Daptomycin 1340 mg/Sodium Chloride 50 ml @ 100 mls/hr Q24H IV ; Start 03/16/19 at 08:45; Status UNV Daptomycin 1340 mg/Sodium Chloride 50 ml @ 100 mls/hr Q24H IV ; Start 03/16/19 at 09:00; Status Cancel Daptomycin 830 mg/ Sodium Chloride 50 ml @ 100 mls/hr Q24H IV Last administered on 03/18/19at 15:03; Start 03/16/19 at 14:00; Stop 03/19/19 at 07:41; Status DC Methylprednisolone Sodium Succinate (SOLU-Medrol 125MG VIAL) 100 mg Q8HRS IV Last administered on 03/23/19at 05:54; Start 03/16/19 at 12:00; Stop 03/23/19 at 12:03; Status DC Furosemide (Lasix) 40 mg 1X ONCE IVP Last administered on 03/16/19 16:46; Start 03/16/19 at 16:30; Stop 03/16/19 at 16:31; Status DC Fentanyl Citrate (Fentanyl 600 Mcg/30 ml MELTING OPERATOR) 600 mcg STK-MED ONCE IV ; Start 03/13/19 at 17:00; Stop 03/17/19 at 11:02; Status DC Furosemide 100 mg/ Sodium Chloride 100 ml @ 5 mls/hr CONT PRN IV SEE I/O RECORD Last administered on 03/18/19at 00:20; Start 03/17/19 at 15:45; Stop 03/18/19 at 10:36; Status DC Furosemide 100 mg/ Sodium Chloride 100 ml @ 5 mls/hr CONT PRN IV SEE I/O RECORD Last administered on 03/21/19at 08:34; Start 03/18/19 at 10:45; Stop 03/21/19 at 12:57; Status DC Lorazepam (Ativan Inj) 2 mg PRN Q1HR PRN IV ANXIETY Last administered on 03/20/19at 17:11; Start 03/19/19 at 10:45 Lisinopril (Prinivil) 5 mg DAILY PO Last administered on 03/27/19 08:09; Start 03/21/19 at 11:30 Amlodipine Besylate (Norvasc) 10 mg DAILY PO Last administered on 03/27/19 08:09; Start 03/21/19 at 11:30 Furosemide 100 mg/ Sodium Chloride 100 ml @ 10 mls/hr CONT PRN IV SEE I/O RECORD Last administered on 03/22/19at 05:05; Start 03/21/19 at 16:00; Stop 03/22/19 at 12:39; Status DC Scopolamine (Transderm-Scop) 1 patch Q3DAYS TD Last administered on 03/25/19at 08:47; Start 03/22/19 at 11:00 Furosemide 100 mg/ Sodium Chloride 100 ml @ 5 mls/hr CONT PRN IV SEE I/O RECORD Last administered on 03/22/19at 21:38; Start 03/22/19 at 12:45; Stop 03/23/19 at 17:48; Status DC Methylprednisolone Sodium Succinate (SOLU-Medrol 125MG VIAL) 50 mg Q8HRS IV Last administered on 03/27/19at 05:30; Start 03/23/19 at 14:00 Insulin Human Lispro (HumaLOG) 0-5 UNITS TIDWMEALS SQ ; Start 03/27/19 at 09:30; Status Cancel Dextrose (Dextrose 50%-Water Syringe) 12.5 gm PRN Q15MIN PRN IV SEE COMMENTS; Start 03/27/19 at 09:00; Status Cancel Dextrose 250 ml PRN Q15MIN PRN IV SEE COMMENTS; Start 03/27/19 at 09:00; Status Cancel Active Scripts Active Norvasc (Amlodipine Besylate) 5 Mg Tablet 1 Tab PO DAILY Lisinopril 5 Mg Tablet 1 Tab PO DAILY Reported Hydrochlorothiazide Tablet (Hydrochlorothiazide) 25 Mg Tablet 25 Mg PO DAILY Vitals/I & O Vital Sign - Last 24 Hours 03/26/19 03/26/19 03/26/19 03/26/19 11:00 11:57 12:00 12:00 Temp 97.5 97.5 Pulse 65 69 Resp 16 16 16 B/P (MAP) 124/77 (93) 135/77 (96) Pulse Ox 100 97 100 O2 Delivery Ventilator Ventilator Mechanical Ventilator Ventilator 03/26/19 03/26/19 03/26/19 03/26/19 12:16 13:00 13:21 13:49 Pulse 78 Resp 16 16 B/P (MAP) 123/72 (89) Pulse Ox 98 98 98 95 O2 Delivery Ventilator Ventilator Ventilator Ventilator 03/26/19 03/26/19 03/26/19 03/26/19 14:00 15:00 15:40 15:45 Pulse 52 62 Resp 16 16 16 B/P (MAP) 97/49 (65) 140/81 (100) Pulse Ox 97 98 97 97 O2 Delivery Ventilator Ventilator Ventilator Ventilator 03/26/19 03/26/19 03/26/19 03/26/19 16:00 16:00 17:00 17:47 Temp 97.6 97.6 Pulse 56 72 Resp 16 16 B/P (MAP) 143/79 (100) 149/82 (104) Pulse Ox 96 96 96 O2 Delivery Mechanical Ventilator Ventilator Ventilator Ventilator 03/26/19 03/26/19 03/26/19 03/26/19 18:00 18:08 19:00 19:19 Temp 97.8 97.8 Pulse 75 60 Resp 16 16 16 B/P (MAP) 164/93 (116) 127/65 (85) Pulse Ox 95 95 95 95 O2 Delivery Ventilator Ventilator Ventilator O2 Flow Rate 70.0 03/26/19 03/26/19 03/26/19 03/26/19 19:33 20:00 20:29 21:00 Pulse 57 54 Resp 16 16 B/P (MAP) 137/68 (91) 134/69 (90) Pulse Ox 95 96 99 O2 Delivery Mechanical Ventilator Ventilator Ventilator Ventilator 03/26/19 03/26/19 03/26/19 03/26/19 22:00 23:00 23:57 23:59 Pulse 49 46 Resp 16 16 21 B/P (MAP) 111/61 (78) 125/68 (87) Pulse Ox 98 96 96 O2 Delivery Ventilator Ventilator Mechanical Ventilator O2 Flow Rate 70.0 03/27/19 03/27/19 03/27/19 03/27/19 00:00 00:14 01:00 02:00 Temp 97.4 97.4 Pulse 50 76 55 Resp 16 17 17 B/P (MAP) 117/67 (84) 137/79 (98) 131/72 (91) Pulse Ox 98 99 99 96 O2 Delivery Ventilator Ventilator Ventilator Ventilator 03/27/19 03/27/19 03/27/19 03/27/19 02:23 03:00 03:43 04:00 Temp 97.7 97.7 Pulse 51 59 Resp 17 16 16 B/P (MAP) 115/65 (82) 111/60 (77) Pulse Ox 99 96 96 93 O2 Delivery Ventilator Ventilator Ventilator Ventilator 03/27/19 03/27/19 03/27/19 03/27/19 04:00 04:22 05:00 05:30 Pulse 52 Resp 16 16 B/P (MAP) 117/70 (86) Pulse Ox 99 98 98 O2 Delivery Mechanical Ventilator Ventilator Ventilator Ventilator 03/27/19 03/27/19 03/27/19 03/27/19 05:50 06:00 07:00 07:06 Temp 98.6 98.6 Pulse 74 79 Resp 16 16 B/P (MAP) 158/90 (112) 149/90 (109) Pulse Ox 99 96 97 91 O2 Delivery Ventilator Ventilator Ventilator Ventilator 9/20/19 9/20/19 9/20/19 9/20/19 07:23 08:00 08:00 08:09 Pulse 85 83 Resp 16 26 B/P (MAP) 171/95 (120) 171/95 Pulse Ox 91 92 O2 Delivery BiPAP/CPAP Mechanical Ventilator Ventilator 03/27/19 03/27/19 03/27/19 08:09 08:33 09:00 Pulse 83 74 Resp 20 B/P (MAP) 171/95 158/94 (115) Pulse Ox 91 93 O2 Delivery Ventilator Ventilator Intake and Output 03/26/19 03/26/19 03/27/19 14:59 22:59 06:59 Intake Total 400 ml 2033.66 ml 2318.95 ml Output Total 1150 ml 950 ml 1280 ml Balance -750 ml 1083.66 ml 1038.95 ml LICO HOLGUIN MD Mar 27, 2019 10:17
--- NOTE | 2019-03-27 11:19 | PDOC ---
PULMONARY PROGRESS NOTES Subjective remains on vent, sedated on fentanyl, versed, and propofol-- Now on 60% FIO2, 9 of PEEP no asynchrony reported over night. Bloody secretions reported from RT remains critically ill but improving slowly Vitals Vital Signs Date Time Temp Pulse Resp B/P (MAP) Pulse Ox O2 Delivery O2 Flow Rate FiO2 03/27/19 10:56 96 Ventilator 03/27/19 10:35 21 03/27/19 09:00 74 158/94 (115) 03/27/19 07:00 98.6 98.6 03/26/19 23:57 70.0 Comments unable to obtain 2/2 vent/sedation Lungs: Other (decrease bs) Cardiovascular: S1, S2 Abdomen: Soft, Non-tender, Other (obese) Extremities: Other (lymphedema BLE ) Skin: Warm, Dry Labs Laboratory Tests Test 03/25/19 17:51 03/26/19 00:33 03/26/19 05:30 03/26/19 05:42 Glucose (Fingerstick) 137 mg/dL (70-99) 151 mg/dL (70-99) 131 mg/dL (70-99) White Blood Count 9.3 x10^3/uL (4.0-11.0) Red Blood Count 4.60 x10^6/uL (4.30-5.70) Hemoglobin 11.1 g/dL (13.0-17.5) Hematocrit 36.1 % (39.0-53.0) Mean Corpuscular Volume 79 fL (79-100) Mean Corpuscular Hemoglobin 24 pg (25-35) Mean Corpuscular Hemoglobin Concent 31 g/dL (31-37) Red Cell Distribution Width 18.9 % (11.5-14.5) Platelet Count 244 x10^3/uL (140-400) Sodium Level 147 mmol/L (136-145) Potassium Level 4.8 mmol/L (3.5-5.1) Chloride Level 110 mmol/L (98-107) Carbon Dioxide Level 36 mmol/L (21-32) Anion Gap 1 (6-14) Blood Urea Nitrogen 67 mg/dL (8-26) Creatinine 0.8 mg/dL (0.7-1.3) Estimated GFR (Cockcroft-Gault) 124.8 Glucose Level 139 mg/dL (70-99) Calcium Level 9.5 mg/dL (8.5-10.1) Phosphorus Level 3.8 mg/dL (2.6-4.7) Albumin 2.3 g/dL (3.4-5.0) Test 03/26/19 08:00 03/26/19 12:00 03/26/19 17:26 03/27/19 00:08 O2 Saturation 95 % (92-99) Arterial Blood pH 7.40 (7.35-7.45) Arterial Blood pCO2 at Patient Temp 54 mmHg (35-46) Arterial Blood pO2 at Patient Temp 76 mmHg (75-108) Arterial Blood HCO3 33 mmol/L (21-28) Arterial Blood Base Excess 7 mmol/L (-3-3) FiO2 65 Glucose (Fingerstick) 121 mg/dL (70-99) 115 mg/dL (70-99) 128 mg/dL (70-99) Test 03/27/19 05:45 03/27/19 05:47 03/27/19 07:10 White Blood Count 8.8 x10^3/uL (4.0-11.0) Red Blood Count 4.44 x10^6/uL (4.30-5.70) Hemoglobin 10.8 g/dL (13.0-17.5) Hematocrit 35.0 % (39.0-53.0) Mean Corpuscular Volume 79 fL (79-100) Mean Corpuscular Hemoglobin 24 pg (25-35) Mean Corpuscular Hemoglobin Concent 31 g/dL (31-37) Red Cell Distribution Width 19.0 % (11.5-14.5) Platelet Count 287 x10^3/uL (140-400) Sodium Level 146 mmol/L (136-145) Potassium Level 5.0 mmol/L (3.5-5.1) Chloride Level 108 mmol/L (98-107) Carbon Dioxide Level 37 mmol/L (21-32) Anion Gap 1 (6-14) Blood Urea Nitrogen 59 mg/dL (8-26) Creatinine 0.8 mg/dL (0.7-1.3) Estimated GFR (Cockcroft-Gault) 124.8 Glucose Level 141 mg/dL (70-99) Calcium Level 9.6 mg/dL (8.5-10.1) Phosphorus Level 4.0 mg/dL (2.6-4.7) Albumin 2.3 g/dL (3.4-5.0) Glucose (Fingerstick) 123 mg/dL (70-99) O2 Saturation 90 % (92-99) Arterial Blood pH 7.39 (7.35-7.45) Arterial Blood pCO2 at Patient Temp 51 mmHg (35-46) Arterial Blood pO2 at Patient Temp 61 mmHg (75-108) Arterial Blood HCO3 31 mmol/L (21-28) Arterial Blood Base Excess 5 mmol/L (-3-3) FiO2 60% Laboratory Tests Test 03/26/19 12:00 03/26/19 17:26 03/27/19 00:08 03/27/19 05:45 Glucose (Fingerstick) 121 mg/dL (70-99) 115 mg/dL (70-99) 128 mg/dL (70-99) White Blood Count 8.8 x10^3/uL (4.0-11.0) Red Blood Count 4.44 x10^6/uL (4.30-5.70) Hemoglobin 10.8 g/dL (13.0-17.5) Hematocrit 35.0 % (39.0-53.0) Mean Corpuscular Volume 79 fL (79-100) Mean Corpuscular Hemoglobin 24 pg (25-35) Mean Corpuscular Hemoglobin Concent 31 g/dL (31-37) Red Cell Distribution Width 19.0 % (11.5-14.5) Platelet Count 287 x10^3/uL (140-400) Sodium Level 146 mmol/L (136-145) Potassium Level 5.0 mmol/L (3.5-5.1) Chloride Level 108 mmol/L (98-107) Carbon Dioxide Level 37 mmol/L (21-32) Anion Gap 1 (6-14) Blood Urea Nitrogen 59 mg/dL (8-26) Creatinine 0.8 mg/dL (0.7-1.3) Estimated GFR (Cockcroft-Gault) 124.8 Glucose Level 141 mg/dL (70-99) Calcium Level 9.6 mg/dL (8.5-10.1) Phosphorus Level 4.0 mg/dL (2.6-4.7) Albumin 2.3 g/dL (3.4-5.0) Test 03/27/19 05:47 03/27/19 07:10 Glucose (Fingerstick) 123 mg/dL (70-99) O2 Saturation 90 % (92-99) Arterial Blood pH 7.39 (7.35-7.45) Arterial Blood pCO2 at Patient Temp 51 mmHg (35-46) Arterial Blood pO2 at Patient Temp 61 mmHg (75-108) Arterial Blood HCO3 31 mmol/L (21-28) Arterial Blood Base Excess 5 mmol/L (-3-3) FiO2 60% Medications Active Scripts Medications Dose Route/Sig Max Daily Dose Days Date Category Hydrochlorothiazide Tablet (Hydrochlorothiazide) 25 Mg Tablet 25 Mg PO DAILY 03/10/19 Reported Norvasc (Amlodipine Besylate) 5 Mg Tablet 1 Tab PO DAILY 01/12/19 Rx Lisinopril 5 Mg Tablet 1 Tab PO DAILY 01/12/19 Rx Comments CXR 03/27 BILATERAL INFILTRATES, BASAL EFFUSIONS Impression . 1. Acute hypercarbic/hypoxic respiratory Failure due to ARDS , vapping related,oxygenation slowly improving on 60%, and PEEP of 9 2. Suspected VAP ABX per ID , currently off ABX 3.Hypertension (controlled) 4. Pre-renal Azotemia, improved 5. Pulm. HTN PA pressure 55 Normal EF 6. HX. of tobacco use 7. Morbid obesity Plan . 1. Continue with present assist control mode. wean PEEP to 9,%FIO2 60%. titrate fi02 to keep sat 92%, make necessary adjustment based on followup ABGs. cont vent support. 2. high dose steroids ,initiated 03/16 , cont. taper 3. Abx per ID, check all new cultures, off abx at this time 4. Monitor fever and white cell count.overall no further fever 5. Continue bronchodilators. 6. Heparin for DVT prophylaxis 7 azotemia .renal following 8. Remains critically ill, will need tracheostomy and LTACH in future once O2 requirement improves 9. DNR.Continue aggressive supportive care 10. try extra lasix today discussed with RN and RT. We will follow along with you. MARIO ALLEN MD Mar 27, 2019 11:19
[2019-03-27] MEDS ORDERED: FUROSEMIDE 40 MG/4 ML VIAL. IVP ONE (12:00)
[2019-03-27] MEDS: methylPREDNISolone SOD SUCC PF 40 MG/ML VIAL. IV SCH ×2 (13:39→20:56)
--- NOTE | 2019-03-27 14:33 | PDOC ---
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 Increased Troponin Morbid Obesity Pulmonary HTN Tobacco use History of Present Illness History of Present Illness 03/27, in ICU, still about the same 03/26/19 Pt seen and examined in ICU Pt is sedated and on ventilation (Vent settings: AC/16/600/60% 10 PEEP) 03/25/19 Pt seen and examined in the ICU Pt is sedated and on ventilation (Vent settings: AC/16/600/65% 11 PEEP) Chart and labs reviewed JUANA RN 03/24/19 Pt seen and examined in the ICU Pt is on ventilation (Vent settings: AC/16/600/70% 13 PEEP) Chart and labs reviewed JUANA RN 03/23/19 Pt seen/examined in the ICU Pt is still on ventilation (Vent settings: AC/16/600/80% 13 PEEP) JUANA RN Chart and labs reviewed 03/22/19 Pt seen/examined in the ICU Pt is still on ventilation (Vent settings: AC/16/600/80% 13 PEEP) JUANA RN Chart and labs reviewed Chart Reviewed 03/21/19 Pt seen and examined in the ICU Pt still on ventilation (vent settings: AC/16/600/75% 13 PEEP) 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 starting patient on home medications for HTN 9�13�2011 Patient seen and examined in the ICU He is still ventilated AC/16/600/80% 14 PEEP 03/19/19 Pt seen and examined in ICU on vent (vent settings: AC/16/600/85% 14 PEEP) Pt responsive to voice In mitts for pt safety Pt sedated with versed, fentanyl, and precedex Rectal tube intact Fontana to BSD Has OG tube to LIS; ET tube placed JUANA RN 03/18/19 Pt seen and examined in ICU on vent (vent settings: AC/16/00/100% 14 PEEP) Pt sedated with versed, fentanyl, and precedex Rectal tube placed Fontana to BSD Has OG tube to LIS; ET tube placed JUANA RN Chart reviewed 03/17/19 Pt seen and examined in ICU on vent (AC/16/600/100 14peep) Pt has rectal tube and fontana to BSD Sedated with versed, fentanyl, and precedex Pt has ET tube and OG tube to LIS 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 ABDOMEN: Obese, soft, +BS : Fontana in place fecal tube in place EXTREMITIES: Trace edema - MITTS SKIN: Chronic stasis dermatitis on the lower extremity. NEUROLOGIC: Sedated IVS; Old RIJ site clean. RUE - PICC clean General: No acute distress, Other (short neck , Mallampati 4 ON VENT) Heart: Regular rate (SR), Other (distante heart sounds) Lungs: Other (decrease bs) Abdomen: Normal bowel sounds, Soft, No tenderness, No hepatosplenomegaly, No masses Extremities: No clubbing, No cyanosis, No edema, Normal pulses, No tenderness/swelling Skin: No rashes, No breakdown, No significant lesion Labs LABS Laboratory Tests Test 03/26/19 17:26 03/27/19 00:08 03/27/19 05:45 03/27/19 05:47 Glucose (Fingerstick) 115 mg/dL (70-99) 128 mg/dL (70-99) 123 mg/dL (70-99) White Blood Count 8.8 x10^3/uL (4.0-11.0) Red Blood Count 4.44 x10^6/uL (4.30-5.70) Hemoglobin 10.8 g/dL (13.0-17.5) Hematocrit 35.0 % (39.0-53.0) Mean Corpuscular Volume 79 fL (79-100) Mean Corpuscular Hemoglobin 24 pg (25-35) Mean Corpuscular Hemoglobin Concent 31 g/dL (31-37) Red Cell Distribution Width 19.0 % (11.5-14.5) Platelet Count 287 x10^3/uL (140-400) Sodium Level 146 mmol/L (136-145) Potassium Level 5.0 mmol/L (3.5-5.1) Chloride Level 108 mmol/L (98-107) Carbon Dioxide Level 37 mmol/L (21-32) Anion Gap 1 (6-14) Blood Urea Nitrogen 59 mg/dL (8-26) Creatinine 0.8 mg/dL (0.7-1.3) Estimated GFR (Cockcroft-Gault) 124.8 Glucose Level 141 mg/dL (70-99) Calcium Level 9.6 mg/dL (8.5-10.1) Phosphorus Level 4.0 mg/dL (2.6-4.7) Albumin 2.3 g/dL (3.4-5.0) Test 03/27/19 07:10 03/27/19 12:02 O2 Saturation 90 % (92-99) Arterial Blood pH 7.39 (7.35-7.45) Arterial Blood pCO2 at Patient Temp 51 mmHg (35-46) Arterial Blood pO2 at Patient Temp 61 mmHg (75-108) Arterial Blood HCO3 31 mmol/L (21-28) Arterial Blood Base Excess 5 mmol/L (-3-3) FiO2 60% Glucose (Fingerstick) 120 mg/dL (70-99) Assessment and Plan Assessmemt and Plan Problems Medical Problems: (1) CHF exacerbation Status: Acute (2) COPD exacerbation Status: Acute (3) Hypoxia Status: Acute (4) NSTEMI (non-ST elevated myocardial infarction) Status: Acute (5) Respiratory failure Status: Acute Comment Review of Relevant I have reviewed the following items peter (where applicable) has been applied. Labs Laboratory Tests Test 03/25/19 17:51 03/26/19 00:33 03/26/19 05:30 03/26/19 05:42 Glucose (Fingerstick) 137 mg/dL (70-99) 151 mg/dL (70-99) 131 mg/dL (70-99) White Blood Count 9.3 x10^3/uL (4.0-11.0) Red Blood Count 4.60 x10^6/uL (4.30-5.70) Hemoglobin 11.1 g/dL (13.0-17.5) Hematocrit 36.1 % (39.0-53.0) Mean Corpuscular Volume 79 fL (79-100) Mean Corpuscular Hemoglobin 24 pg (25-35) Mean Corpuscular Hemoglobin Concent 31 g/dL (31-37) Red Cell Distribution Width 18.9 % (11.5-14.5) Platelet Count 244 x10^3/uL (140-400) Sodium Level 147 mmol/L (136-145) Potassium Level 4.8 mmol/L (3.5-5.1) Chloride Level 110 mmol/L (98-107) Carbon Dioxide Level 36 mmol/L (21-32) Anion Gap 1 (6-14) Blood Urea Nitrogen 67 mg/dL (8-26) Creatinine 0.8 mg/dL (0.7-1.3) Estimated GFR (Cockcroft-Gault) 124.8 Glucose Level 139 mg/dL (70-99) Calcium Level 9.5 mg/dL (8.5-10.1) Phosphorus Level 3.8 mg/dL (2.6-4.7) Albumin 2.3 g/dL (3.4-5.0) Test 03/26/19 08:00 03/26/19 12:00 03/26/19 17:26 03/27/19 00:08 O2 Saturation 95 % (92-99) Arterial Blood pH 7.40 (7.35-7.45) Arterial Blood pCO2 at Patient Temp 54 mmHg (35-46) Arterial Blood pO2 at Patient Temp 76 mmHg (75-108) Arterial Blood HCO3 33 mmol/L (21-28) Arterial Blood Base Excess 7 mmol/L (-3-3) FiO2 65 Glucose (Fingerstick) 121 mg/dL (70-99) 115 mg/dL (70-99) 128 mg/dL (70-99) Test 03/27/19 05:45 03/27/19 05:47 03/27/19 07:10 03/27/19 12:02 White Blood Count 8.8 x10^3/uL (4.0-11.0) Red Blood Count 4.44 x10^6/uL (4.30-5.70) Hemoglobin 10.8 g/dL (13.0-17.5) Hematocrit 35.0 % (39.0-53.0) Mean Corpuscular Volume 79 fL (79-100) Mean Corpuscular Hemoglobin 24 pg (25-35) Mean Corpuscular Hemoglobin Concent 31 g/dL (31-37) Red Cell Distribution Width 19.0 % (11.5-14.5) Platelet Count 287 x10^3/uL (140-400) Sodium Level 146 mmol/L (136-145) Potassium Level 5.0 mmol/L (3.5-5.1) Chloride Level 108 mmol/L (98-107) Carbon Dioxide Level 37 mmol/L (21-32) Anion Gap 1 (6-14) Blood Urea Nitrogen 59 mg/dL (8-26) Creatinine 0.8 mg/dL (0.7-1.3) Estimated GFR (Cockcroft-Gault) 124.8 Glucose Level 141 mg/dL (70-99) Calcium Level 9.6 mg/dL (8.5-10.1) Phosphorus Level 4.0 mg/dL (2.6-4.7) Albumin 2.3 g/dL (3.4-5.0) Glucose (Fingerstick) 123 mg/dL (70-99) 120 mg/dL (70-99) O2 Saturation 90 % (92-99) Arterial Blood pH 7.39 (7.35-7.45) Arterial Blood pCO2 at Patient Temp 51 mmHg (35-46) Arterial Blood pO2 at Patient Temp 61 mmHg (75-108) Arterial Blood HCO3 31 mmol/L (21-28) Arterial Blood Base Excess 5 mmol/L (-3-3) FiO2 60% Laboratory Tests Test 03/26/19 17:26 03/27/19 00:08 03/27/19 05:45 03/27/19 05:47 Glucose (Fingerstick) 115 mg/dL (70-99) 128 mg/dL (70-99) 123 mg/dL (70-99) White Blood Count 8.8 x10^3/uL (4.0-11.0) Red Blood Count 4.44 x10^6/uL (4.30-5.70) Hemoglobin 10.8 g/dL (13.0-17.5) Hematocrit 35.0 % (39.0-53.0) Mean Corpuscular Volume 79 fL (79-100) Mean Corpuscular Hemoglobin 24 pg (25-35) Mean Corpuscular Hemoglobin Concent 31 g/dL (31-37) Red Cell Distribution Width 19.0 % (11.5-14.5) Platelet Count 287 x10^3/uL (140-400) Sodium Level 146 mmol/L (136-145) Potassium Level 5.0 mmol/L (3.5-5.1) Chloride Level 108 mmol/L (98-107) Carbon Dioxide Level 37 mmol/L (21-32) Anion Gap 1 (6-14) Blood Urea Nitrogen 59 mg/dL (8-26) Creatinine 0.8 mg/dL (0.7-1.3) Estimated GFR (Cockcroft-Gault) 124.8 Glucose Level 141 mg/dL (70-99) Calcium Level 9.6 mg/dL (8.5-10.1) Phosphorus Level 4.0 mg/dL (2.6-4.7) Albumin 2.3 g/dL (3.4-5.0) Test 03/27/19 07:10 03/27/19 12:02 O2 Saturation 90 % (92-99) Arterial Blood pH 7.39 (7.35-7.45) Arterial Blood pCO2 at Patient Temp 51 mmHg (35-46) Arterial Blood pO2 at Patient Temp 61 mmHg (75-108) Arterial Blood HCO3 31 mmol/L (21-28) Arterial Blood Base Excess 5 mmol/L (-3-3) FiO2 60% Glucose (Fingerstick) 120 mg/dL (70-99) Microbiology 03/16/19 - Final, Complete 03/16/19 - Final, Complete 03/16/19 Gram Stain Evaluation - Final, Complete 03/16/19 Sputum Culture - Final, Complete 03/16/19 Sputum Result 1 - Final, Complete 03/16/19 Blood Culture - Final, Complete NO GROWTH AFTER 5 DAYS 03/09/19 Urine Culture - Final, Complete 03/09/19 Urine Culture Result 1 (WIL) - Final, Complete Medications Current Medications Albuterol/ Ipratropium (Duoneb) 3 ml 1X ONCE NEB Last administered on 03/09/19at 21:21; Start 03/09/19 at 21:30; Stop 03/09/19 at 21:31; Status DC Dexamethasone Sodium Phosphate (Decadron) 10 mg 1X ONCE IV Last administered on 03/09/19at 22:29; Start 03/09/19 at 22:00; Stop 03/09/19 at 22:01; Status DC Propofol 100 ml @ 0 mls/hr CONT PRN IV SEE PROTOCOL Last administered on 03/10/19at 07:19; Start 03/09/19 at 22:30; Stop 03/10/19 at 07:28; Status DC Fentanyl Citrate (Fentanyl 2ml Vial) 50 mcg PRN Q1HR PRN IV SEE COMMENTS; S tart 03/09/19 at 22:30; Stop 03/10/19 at 07:28; Status DC Chlorhexidine Gluconate (Peridex) 15 ml BID MM Last administered on 03/27/19at 08:10; Start 03/10/19 at 09:00 Famotidine (Pepcid Vial) 20 mg BID IVP Last administered on 03/27/19at 08:09; Start 03/10/19 at 09:00 Propofol 50 ml @ As Directed STK-MED ONCE IV ; Start 03/09/19 at 22:28; Stop 03/09/19 at 22:28; Status DC Albuterol/ Ipratropium (Duoneb) 3 ml 1X ONCE NEB Last administered on 03/10/19at 02:04; Start 03/09/19 at 23:00; Stop 03/09/19 at 23:01; Status DC Albuterol/ Ipratropium (Duoneb) 3 ml 1X ONCE NEB Last administered on 03/10/19at 02:04; Start 03/09/19 at 23:00; Stop 03/09/19 at 23:01; Status DC Fentanyl Citrate (Fentanyl 2ml Vial) 100 mcg 1X ONCE IV Last administered on 03/09/19at 23:31; Start 03/09/19 at 23:30; Stop 03/09/19 at 23:31; Status DC Bumetanide (Bumex) 1 mg 1X ONCE IV Last administered on 03/10/19at 00:21; Start 03/10/19 at 00:00; Stop 03/10/19 at 00:01; Status DC Heparin Sodium (Porcine) (Heparin Sodium) 4,000 unit 1X ONCE IV Last admin istered on 03/10/19at 00:31; Start 03/10/19 at 00:00; Stop 03/10/19 at 00:01; Status DC Heparin Sodium/ Dextrose 500 ml @ 0 mls/hr CONT PRN IV PER PROTOCOL Last administered on 03/10/19at 23:34; Start 03/09/19 at 23:45; Stop 03/11/19 at 16:13; Status DC Heparin Sodium (Porcine) (Heparin Sodium) 5,500 unit PRN Q6HRS PRN IV FOR UFH LEVEL LESS THAN 0.2 Last administered on 03/11/19at 00:57; Start 03/09/19 at 23:45; Stop 03/11/19 at 16:13; Status DC Aspirin (Aspirin Rectal Supp) 300 mg 1X ONCE OH Last administered on 03/10/19at 03:42; Start 03/10/19 at 00:00; Stop 03/10/19 at 00:01; Status DC Propofol 50 ml @ As Directed STK-MED ONCE IV ; Start 03/09/19 at 23:38; Stop 03/09/19 at 23:38; Status DC Propofol 50 ml @ As Directed STK-MED ONCE IV ; Start 03/09/19 at 23:38; Stop 03/09/19 at 23:38; Status DC Piperacillin Sod/ Tazobactam Sod 4.5 gm/Sodium Chloride 100 ml @ 200 mls/hr 1X ONCE IV Last administered on 03/10/19at 05:19; Start 03/10/19 at 00:30; Stop 03/10/19 at 00:59; Status DC Propofol 50 ml @ As Directed STK-MED ONCE IV ; Start 03/10/19 at 00:51; Stop 03/10/19 at 00:51; Status DC Propofol 50 ml @ As Directed STK-MED ONCE IV ; Start 03/10/19 at 01:14; Stop 03/10/19 at 01:15; Status DC Fentanyl Citrate (Fentanyl 2ml Vial) 100 mcg 1X ONCE IV Last administered on 03/10/19at 01:26; Start 03/10/19 at 01:45; Stop 03/10/19 at 01:46; Status DC Clonidine HCl (Catapres) 0.1 mg 1X ONCE PO ; Start 03/10/19 at 01:30; Stop 03/10/19 at 01:34; Status DC Midazolam HCl (Versed) 5 mg 1X ONCE IV Last administered on 03/10/19at 01:28; Start 03/10/19 at 01:30; Stop 03/10/19 at 01:34; Status DC Propofol 50 ml @ As Directed STK-MED ONCE IV ; Start 03/10/19 at 02:08; Stop at 02:09; Status DC Propofol 50 ml @ As Directed STK-MED ONCE IV ; Start 03/10/19 at 02:36; Stop 03/10/19 at 02:36; Status DC Rocuronium [place] (Zemuron) 50 mg STK-MED ONCE .ROUTE ; Start 03/10/19 at 05:15; Stop 03/10/19 at 05:15; Status DC Etomidate (Amidate) 20 mg STK-MED ONCE IV ; Start 03/10/19 at 05:15; Stop 03/10/19 at 05:16; Status DC Fentanyl Citrate 30 ml @ 0 mls/hr CONT PRN IV SEE PROTOCOL Last administered on 03/27/19at 10:35; Start 03/10/19 at 07:30 Propofol 100 ml @ 0 mls/hr CONT PRN IV SEE PROTOCOL Last administered on 03/27/19at 13:41; Start 03/10/19 at 07:30 Fentanyl Citrate (Fentanyl 2ml Vial) 25 mcg PRN Q1HR PRN IV SEE COMMENTS; Start 03/10/19 at 07:30 Fentanyl Citrate (Fentanyl 2ml Vial) 50 mcg PRN Q1HR PRN IV SEE COMMENTS; Start 03/10/19 at 07:30 Artificial Tears (Artificial Tears) 1 drop PRN Q1HR PRN OU DRY EYE, 1ST CHOICE Last administered on 03/13/19at 13:32; Start 03/10/19 at 07:30 Famotidine (Pepcid Vial) 20 mg BID IVP ; Start 03/10/19 at 09:00; Status UNV Morphine Sulfate (Morphine Sulfate) 2 mg PRN Q1HR PRN IV SEE COMMENTS. Last administered on 03/25/19at 09:18; Start 03/10/19 at 07:30 Morphine Sulfate (Morphine Sulfate) 4 mg PRN Q1HR PRN IV SEE COMMENTS.; Start 03/10/19 at 07:30 Midazolam HCl 100 ml @ 0 mls/hr CONT PRN IV SEE PROTOCOL Last administered on 03/27/19at 08:04; Start 03/10/19 at 07:30 Levofloxacin/ Dextrose (Levaquin Per Pharmacy) 1 each PRN DAILY PRN MC SEE COMMENTS; Start 03/10/19 at 08:15; Stop 03/14/19 at 09:25; Status DC Albuterol/ Ipratropium (Duoneb) 3 ml RTQID NEB Last administered on 03/27/19at 10:56; Start 03/10/19 at 12:00 Sodium Chloride 1,000 ml @ 100 mls/hr Q10H IV Last administered on 03/10/19at 23:34; Start 03/10/19 at 08:15; Stop 03/11/19 at 16:02; Status DC Amlodipine Besylate (Norvasc) 5 mg DAILY PO Last administered on 03/10/19at 09:13; Start 03/10/19 at 09:00; Stop 03/10/19 at 10:04; Status DC Hydrochlorothiazide (Hydrodiuril) 25 mg DAILY PO Last administered on 03/10/19at 09:13; Start 03/10/19 at 09:00; Stop 03/10/19 at 10:04; Status DC Lisinopril (Prinivil) 5 mg DAILY PO Last administered on 03/10/19at 09:13; Start 03/10/19 at 09:00; Stop 03/10/19 at 10:04; Status DC Levofloxacin/ Dextrose 100 ml @ 100 mls/hr Q24H IV Last administered on 03/14/19at 08:10; Start 03/10/19 at 09:00; Stop 03/14/19 at 09:25; Status DC Aspirin (Amanda Aspirin) 325 mg 1X ONCE PO Last administered on 03/10/19at 10:55; Start 03/10/19 at 10:30; Stop 03/10/19 at 10:31; Status DC Aspirin (Children'S Aspirin) 81 mg DAILYWBKFT PO Last administered on 03/27/19at 08:09; Start 03/11/19 at 08:00 Amlodipine Besylate (Norvasc) 10 mg DAILY PO Last administered on 03/11/19at 09:37; Start 03/11/19 at 09:00; Stop 03/11/19 at 12:50; Status DC Hydralazine HCl (Apresoline Inj) 10 mg PRN Q4HRS PRN IVP ELEVATED BP, SEE COMMENTS; Start 03/10/19 at 10:15; Stop 03/12/19 at 09:37; Status DC Furosemide (Lasix) 40 mg DAILY IVP Last administered on 03/11/19at 09:37; Start 03/10/19 at 11:00; Stop 03/11/19 at 11:24; Status DC Insulin Human Lispro (HumaLOG) 0-9 UNITS TIDWMEALS SQ ; Start 03/10/19 at 12:00; Stop 03/10/19 at 17:57; Status DC Dextrose (Dextrose 50%-Water Syringe) 12.5 gm PRN Q15MIN PRN IV SEE COMMENTS; Start 03/10/19 at 11:15; Stop 03/12/19 at 16:47; Status DC Dextrose 250 ml PRN Q15MIN PRN IV SEE COMMENTS; Start 03/10/19 at 11:15; Stop 03/10/19 at 11:05; Status DC Iohexol (Omnipaque 350 Mg/ml) 100 ml 1X ONCE IV Last administered on 03/10/19at 14:05; Start 03/10/19 at 11:45; Stop 03/10/19 at 11:47; Status DC Info (CONTRAST GIVEN -- Rx MONITORING) 1 each PRN DAILY PRN MC SEE COMMENTS; Start 03/10/19 at 11:45; Stop 03/12/19 at 11:44; Status DC Piperacillin Sod/ Tazobactam Sod (Zosyn Per Pharmacy) 1 each PRN DAILY PRN MC SEE COMMENTS; Start 03/10/19 at 11:45; Stop 03/25/19 at 08:36; Status DC Vancomycin HCl (Vanco Per Pharmacy) 1 each PRN DAILY PRN MC SEE COMMENTS Last administered on 03/11/19at 09:42; Start 03/10/19 at 11:45; Stop 03/11/19 at 13:57; Status DC Vancomycin HCl 2 gm/Sodium Chloride 500 ml @ 250 mls/hr 1X ONCE IV Last administered on 03/10/19at 12:41; Start 03/10/19 at 13:00; Stop 03/10/19 at 14:59; Status DC Piperacillin Sod/ Tazobactam Sod 3.375 gm/Sodium Chloride 50 ml @ 100 mls/hr Q6HRS IV Last administered on 03/24/19at 05:45; Start 03/10/19 at 12:30; Stop 03/24/19 at 07:24; Status DC Vancomycin HCl 1.75 gm/Sodium Chloride 500 ml @ 250 mls/hr Q12H IV Last administered on 03/11/19at 12:43; Start 03/11/19 at 01:00; Stop 03/11/19 at 13:57; Status DC Vancomycin HCl (Vancomycin Trough Level) 1 each 1X ONCE MC ; Start 03/12/19 at 12:30; Stop 03/12/19 at 12:31; Status Cancel Insulin Human Lispro (HumaLOG) 0-9 UNITS Q6HRS SQ ; Start 03/11/19 at 00:00; Stop 03/27/19 at 09:06; Status DC Magnesium Sulfate/ Dextrose 100 ml @ 50 mls/hr DAILY IV Last administered on 03/11/19at 09:28; Start 03/11/19 at 09:00; Stop 03/14/19 at 08:59; Status DC Potassium Phosphate 27.2 mmol/Sodium Chloride 259.0667 ml @ 64.753 m... 1X ONCE IV Last administered on 03/11/19at 09:28; Start 03/11/19 at 10:00; Stop 03/11/19 at 14:00; Status DC Potassium Phosphate 27.2 mmol/Sodium Chloride 259.0667 ml @ 64.753 m... 1X ONCE IV ; Start 03/11/19 at 14:00; Stop 03/11/19 at 18:00; Status DC Lorazepam (Ativan Inj) 1 mg PRN Q1HR PRN IV ANXIETY Last administered on 03/14/19at 16:32; Start 03/11/19 at 11:00; Stop 03/19/19 at 10:31; Status DC Sodium Chloride 1,000 ml @ 1,000 mls/hr 1X ONCE IV Last administered on 03/11/19at 12:06; Start 03/11/19 at 11:30; Stop 03/11/19 at 12:29; Status DC Norepinephrine Bitartrate 250 ml @ 27.837 mls/ hr CONT PRN IV SEE I/O RECORD Last administered on 03/13/19at 04:13; Start 03/11/19 at 13:00; Stop 03/26/19 at 09:22; Status DC Hydralazine HCl (Apresoline Inj) 10 mg PRN Q4HRS PRN IVP ELEVATED BP, SEE COMMENTS Last administered on 03/22/19at 06:13; Start 03/11/19 at 13:00 Linezolid/Dextrose 300 ml @ 300 mls/hr Q12HR IV Last administered on 03/22/19at 21:38; Start 03/11/19 at 21:00; Stop 03/23/19 at 07:48; Status DC Potassium Chloride/Water 50 ml @ 50 mls/hr Q1H IV Last administered on 03/11/19at 17:28; Start 03/11/19 at 16:00; Stop 03/11/19 at 17:59; Status DC Heparin Sodium (Porcine) (Heparin Sodium) 5,000 unit Q8HRS SQ Last administered on 03/27/19at 13:41; Start 03/11/19 at 22:00 Multi-Ingred Cream/Lotion/Oil/ Oint (Artificial Tears Eye Ointment) 1 zuri PRN Q1HR PRN OU DRY EYE; Start 03/12/19 at 09:00 Potassium Chloride/Water 50 ml @ 50 mls/hr 1X ONCE IV Last administered on 03/12/19at 09:44; Start 03/12/19 at 10:00; Stop 03/12/19 at 10:59; Status DC Potassium Chloride/Water 50 ml @ 50 mls/hr 1X ONCE IV ; Start 03/12/19 at 10:30; Stop 03/12/19 at 11:31; Status DC Insulin Human Lispro (HumaLOG) 0-9 UNITS TIDWMEALS SQ ; Start 03/12/19 at 17:00; Stop 03/12/19 at 16:24; Status DC Dextrose (Dextrose 50%-Water Syringe) 12.5 gm PRN Q15MIN PRN IV SEE COMMENTS; Start 03/12/19 at 16:15 Dextrose 250 ml PRN Q15MIN PRN IV SEE COMMENTS; Start 03/12/19 at 16:15; Stop 03/27/19 at 08:59; Status DC Insulin Human Lispro (HumaLOG) 0-9 UNITS Q6HRS SQ Last administered on 03/26/19at 00:37; Start 03/12/19 at 18:00 Dexmedetomidine HCl 400 mcg/ Sodium Chloride 100 ml @ 0 mls/hr CONT PRN IV ANXIETY / AGITATION Last administered on 03/21/19at 04:33; Start 03/12/19 at 20:30; Stop 03/26/19 at 09:22; Status DC Sodium Chloride 500 ml @ 500 mls/hr 1X PRN PRN IV see comments Last administered on 03/12/19at 23:22; Start 03/12/19 at 20:30 Atropine Sulfate (ATROPINE 0.5mg SYRINGE) 0.5 mg PRN Q5MIN PRN IV SEE COMMENTS; Start 03/12/19 at 20:30 Vecuronium [place] (Norcuron Bolus) 10 mg PRN Q1HR PRN IV ON VENT/RESP FAILURE Last administered on 03/25/19at 10:49; Start 03/13/19 at 07:30 Perflutren Protein Type A Microsphe (Optison) 0.66 mg STK-MED ONCE IV ; Start 03/13/19 at 09:08; Stop 03/13/19 at 09:08; Status DC Perflutren Protein Type A Microsphe (Optison) 0.66 mg 1X ONCE IV Last administered on 03/13/19at 09:40; Start 03/13/19 at 09:15; Stop 03/13/19 at 09:16; Status DC Furosemide (Lasix) 40 mg 1X ONCE IVP Last administered on 03/13/19at 13:32; Start 03/13/19 at 10:30; Stop 03/13/19 at 10:31; Status DC Daptomycin 1320 mg/Sodium Chloride 50 ml @ 100 mls/hr ONCE ONCE IV Last administered on 03/15/19at 13:53; Start 03/15/19 at 13:00; Stop 03/16/19 at 09:33; Status DC Daptomycin 1340 mg/Sodium Chloride 50 ml @ 100 mls/hr Q24H IV ; Start 03/16/19 at 08:45; Status UNV Daptomycin 1340 mg/Sodium Chloride 50 ml @ 100 mls/hr Q24H IV ; Start 03/16/19 at 09:00; Status Cancel Daptomycin 830 mg/ Sodium Chloride 50 ml @ 100 mls/hr Q24H IV Last a dministered on 03/18/19at 15:03; Start 03/16/19 at 14:00; Stop 03/19/19 at 07:41; Status DC Methylprednisolone Sodium Succinate (SOLU-Medrol 125MG VIAL) 100 mg Q8HRS IV Last administered on 03/23/19at 05:54; Start 03/16/19 at 12:00; Stop 03/23/19 at 12:03; Status DC Furosemide (Lasix) 40 mg 1X ONCE IVP Last administered on 03/16/19at 16:46; Start 03/16/19 at 16:30; Stop 03/16/19 at 16:31; Status DC Fentanyl Citrate (Fentanyl 600 Mcg/30 ml COTTON HEADER) 600 mcg STK-MED ONCE IV ; Start 03/13/19 at 17:00; Stop 03/17/19 at 11:02; Status DC Furosemide 100 mg/ Sodium Chloride 100 ml @ 5 mls/hr CONT PRN IV SEE I/O RECORD Last administered on 03/18/19at 00:20; Start 03/17/19 at 15:45; Stop 03/18/19 at 10:36; Status DC Furosemide 100 mg/ Sodium Chloride 100 ml @ 5 mls/hr CONT PRN IV SEE I/O RECORD Last administered on 03/21/19at 08:34; Start 03/18/19 at 10:45; Stop 03/21/19 at 12:57; Status DC Lorazepam (Ativan Inj) 2 mg PRN Q1HR PRN IV ANXIETY Last administered on 03/20/19at 17:11; Start 03/19/19 at 10:45 Lisinopril (Prinivil) 5 mg DAILY PO Last administered on 03/27/19at 08:09; Start 03/21/19 at 11:30 Amlodipine Besylate (Norvasc) 10 mg DAILY PO Last administered on 03/27/19at 08:09; Start 03/21/19 at 11:30 Furosemide 100 mg/ Sodium Chloride 100 ml @ 10 mls/hr CONT PRN IV SEE I/O RECORD Last administered on 03/22/19at 05:05; Start 03/21/19 at 16:00; Stop 03/22/19 at 12:39; Status DC Scopolamine (Transderm-Scop) 1 patch Q3DAYS TD Last administered on 03/25/19at 08:47; Start 03/22/19 at 11:00 Furosemide 100 mg/ Sodium Chloride 100 ml @ 5 mls/hr CONT PRN IV SEE I/O RECORD Last administered on 03/22/19at 21:38; Start 03/22/19 at 12:45; Stop 03/23/19 at 17:48; Status DC Methylprednisolone Sodium Succinate (SOLU-Medrol 125MG VIAL) 50 mg Q8HRS IV Last administered on 03/27/19at 05:30; Start 03/23/19 at 14:00; Stop 03/27/19 at 11:20; Status DC Insulin Human Lispro (HumaLOG) 0-5 UNITS TIDWMEALS SQ ; Start 03/27/19 at 09:30; Status Cancel Dextrose (Dextrose 50%-Water Syringe) 12.5 gm PRN Q15MIN PRN IV SEE COMMENTS; Start 03/27/19 at 09:00; Status Cancel Dextrose 250 ml PRN Q15MIN PRN IV SEE COMMENTS; Start 03/27/19 at 09:00; Status Cancel Methylprednisolone Sodium Succinate (SOLU-Medrol 40MG VIAL) 30 mg Q8HRS IV Last administered on 03/27/19at 13:41; Start 03/27/19 at 14:00 Furosemide (Lasix) 40 mg 1X ONCE IVP Last administered on 03/27/19at 11:58; Start 03/27/19 at 12:00; Stop 03/27/19 at 12:01; Status DC Active Scripts Active Norvasc (Amlodipine Besylate) 5 Mg Tablet 1 Tab PO DAILY Lisinopril 5 Mg Tablet 1 Tab PO DAILY Reported Hydrochlorothiazide Tablet (Hydrochlorothiazide) 25 Mg Tablet 25 Mg PO DAILY Vitals/I & O Vital Sign - Last 24 Hours 03/26/19 03/26/19 03/26/19 03/26/19 15:00 15:40 15:45 16:00 Pulse 62 Resp 16 16 B/P (MAP) 140/81 (100) Pulse Ox 98 97 97 O2 Delivery Ventilator Ventilator Ventilator Mechanical Ventilator 03/26/19 03/26/19 03/26/19 03/26/19 16:00 17:00 17:47 18:00 Temp 97.6 97.6 Pulse 56 72 75 Resp 16 16 16 B/P (MAP) 143/79 (100) 149/82 (104) 164/93 (116) Pulse Ox 96 96 96 95 O2 Delivery Ventilator Ventilator Ventilator Ventilator 03/26/19 03/26/19 03/26/19 03/26/19 18:08 19:00 19:19 19:33 Temp 97.8 97.8 Pulse 60 Resp 16 16 B/P (MAP) 127/65 (85) Pulse Ox 95 95 95 O2 Delivery Ventilator Ventilator Mechanical Ventilator O2 Flow Rate 70.0 03/26/19 03/26/19 03/26/19 03/26/19 20:00 20:29 21:00 22:00 Pulse 57 54 49 Resp 16 16 16 B/P (MAP) 137/68 (91) 134/69 (90) 111/61 (78) Pulse Ox 95 96 99 98 O2 Delivery Ventilator Ventilator Ventilator Ventilator 03/26/19 03/26/19 03/26/19 03/27/19 23:00 23:57 23:59 00:00 Pulse 46 50 Resp 16 21 16 B/P (MAP) 125/68 (87) 117/67 (84) Pulse Ox 96 96 98 O2 Delivery Ventilator Mechanical Ventilator Ventilator O2 Flow Rate 70.0 03/27/19 03/27/19 03/27/19 03/27/19 00:14 01:00 02:00 02:23 Temp 97.4 97.4 Pulse 76 55 Resp 17 17 B/P (MAP) 137/79 (98) 131/72 (91) Pulse Ox 99 99 96 99 O2 Delivery Ventilator Ventilator Ventilator Ventilator 03/27/19 03/27/19 03/27/19 03/27/19 03:00 03:43 04:00 04:00 Temp 97.7 97.7 Pulse 51 59 Resp 17 16 16 B/P (MAP) 115/65 (82) 111/60 (77) Pulse Ox 96 96 93 O2 Delivery Ventilator Ventilator Ventilator Mechanical Ventilator 03/27/19 03/27/19 03/27/19 03/27/19 04:22 05:00 05:30 05:50 Pulse 52 Resp 16 16 B/P (MAP) 117/70 (86) Pulse Ox 99 98 98 99 O2 Delivery Ventilator Ventilator Ventilator Ventilator 03/27/19 03/27/19 03/27/19 03/27/19 06:00 07:00 07:06 07:23 Temp 98.6 98.6 Pulse 74 79 Resp 16 16 16 B/P (MAP) 158/90 (112) 149/90 (109) Pulse Ox 96 97 91 91 O2 Delivery Ventilator Ventilator Ventilator BiPAP/CPAP 03/27/19 03/27/19 03/27/1903/27/19 08:00 08:00 08:09 08:09 Pulse 85 83 83 Resp 26 B/P (MAP) 171/95 (120) 171/95 171/95 Pulse Ox 92 O2 Delivery Mechanical Ventilator Ventilator 03/27/19 03/27/19 03/27/19 03/27/19 08:33 09:00 10:00 10:35 Pulse 74 64 Resp 20 24 21 B/P (MAP) 158/94 (115) 125/74 (91) Pulse Ox 91 93 96 96 O2 Delivery Ventilator Ventilator Ventilator Ventilator 03/27/19 03/27/19 03/27/19 03/27/19 10:56 11:00 12:00 12:00 Temp 98.5 98.5 Pulse 57 63 Resp 16 16 B/P (MAP) 109/65 (80) 106/60 (75) Pulse Ox 96 96 96 O2 Delivery Ventilator Ventilator Mechanical Ventilator Ventilator 03/27/19 12:05 Pulse Ox 96 O2 Delivery Ventilator Intake and Output 03/26/19 03/26/19 03/27/19 14:59 22:59 06:59 Intake Total 400 ml 2033.66 ml 2318.95 ml Output Total 1150 ml 950 ml 1280 ml Balance -750 ml 1083.66 ml 1038.95 ml ERROL CASILLAS MD Mar 27, 2019 14:33
[2019-03-28] VITALS (24 sets, daily range): BP systolic 100–169; BP diastolic 59–100
[2019-03-28] MEDS: PROPOFOL 100 ML IV PRN ×11 (02:07→23:32)
--- NOTE | 2019-03-28 05:49 | RAD ---
AP chest x-ray COMPARISON: Chest x-ray 12/25 2018. HISTORY: ARDS. Acute respiratory distress syndrome. FINDINGS: Endotracheal tube tip 5 cm above the mariely. Nasogastric tube extends to the lower chest although its tip is not well-visualized. Right PICC line tip poorly visualized as well extends at least to the proximal right atrium. Cardiomegaly is stable. No pneumothorax. Lower lobe greater than upper lobe pulmonary opacities and small pleural effusions are stable. IMPRESSION: Stable exam. Electronically signed by: Kevin Cordoba MD (03/28/2019 5:45 AM) [facility]
[2019-03-28] MEDS: MIDAZOLAM 100mg/100ml NS BAG 100 ML IV PRN ×2 (05:51→13:41)
[2019-03-28] MEDS: methylPREDNISolone SOD SUCC PF 40 MG/ML VIAL. IV SCH ×3 (05:51→21:54)
[2019-03-28] MEDS: INSULIN LISPRO 300 UNITS/3 ML VIAL. SQ SCH ×4 (05:53→17:59)
[2019-03-28] MEDS: HEPARIN for SUB-Q USE 5,000 UNIT/ML VIAL. SQ SCH ×3 (05:55→21:55)
[2019-03-28 06:41] LABS: CALCIUM 9.7 mg/dL (8.5-10.1); CREATININE 0.7 mg/dL (0.7-1.3); GFR 145.6; POTASSIUM 5.4 mmol/L (3.5-5.1)
[2019-03-28 06:56] LABS: BASO % 0 % (0-3); EOS % 0 % (0-3); HEMATOCRIT 35.6 % (39.0-53.0); LYMPH % 8 % (24-48); MEAN CORPUSCULAR HEMOGLOBIN 24 pg (25-35); MEAN CORPUSCULAR HGB CONC 31 g/dL (31-37); MEAN CORPUSCULAR VOLUME 78 fL (79-100); MONO # 0.9 x10^3/uL (0.0-1.1); MONO % 7 % (0-9); NEUT # 10.3 x10^3/uL (1.8-7.7); NEUT % 85 % (31-73); PLATELET COUNT 335 x10^3/uL (140-400); RED BLOOD COUNT 4.59 x10^6/uL (4.30-5.70); RED CELL DISTRIBUTION WIDTH 18.9 % (11.5-14.5); WHITE BLOOD COUNT 12.2 x10^3/uL (4.0-11.0)
[2019-03-28] MEDS: IPRATRPIUM/ALBUTEROL 0.5/2.5MG 3 ML NEBU. NEB SCH ×4 (07:43→20:42)
[2019-03-28] MEDS: ASPIRIN CHEWABLE 81 MG TABLET. PO SCH (08:13)
[2019-03-28] MEDS: FAMOTIDINE 20 MG/2 ML VIAL IVP SCH ×2 (08:13→20:55)
[2019-03-28] MEDS: CHLORHEXIDINE 0.12% 15 ML MOUTHWASH. MM SCH ×2 (08:14→20:55)
[2019-03-28] MEDS: amLODIPine BESYLATE 10 MG TABLET PO SCH (08:15)
[2019-03-28] MEDS: SCOPOLAMINE 1.5MG PATCH. TD SCH (08:16)
[2019-03-28 08:38] LABS: BASE EXCESS ABG 9 mmol/L (-3-3); HCO3 ABG 33 mmol/L (21-28); PCO2 ABG 45 mmHg (35-46); PO2 ABG 59 mmHg (75-108); SAT O2 ABG 91 % (92-99)
[2019-03-28 08:56] LABS: FIO2 ABG 60
[2019-03-28] MEDS: LISINOPRIL 5 MG TABLET. PO SCH (09:09)
--- NOTE | 2019-03-28 09:26 | PDOC ---
PULMONARY PROGRESS NOTES Subjective Patient with respiratory failure secondary to ARDS from vaping. remains on vent, sedated on fentanyl, versed, and propofol-- Ventilator support decreasing, now on 60% FIO2, 9 of PEEP no asynchrony reported over night. Has thick, yellow, occasionally pink endotracheal secretions. These are unchanged by report. remains critically ill but improving slowly Vitals Vital Signs Date Time Temp Pulse Resp B/P (MAP) Pulse Ox O2 Delivery O2 Flow Rate FiO2 03/28/19 08:16 88 156/103 03/28/19 08:00 98.5 31 94 Ventilator 98.5 Comments unable to obtain 2/2 vent/sedation. morbidly obese Lungs: Other (decrease bs) Cardiovascular: S1, S2 Abdomen: Soft, Non-tender, Other (obese) Extremities: Other (lymphedema BLE ) Skin: Warm, Dry Labs Laboratory Tests Test 03/26/19 12:00 03/26/19 17:26 03/27/19 00:08 03/27/19 05:45 Glucose (Fingerstick) 121 mg/dL (70-99) 115 mg/dL (70-99) 128 mg/dL (70-99) White Blood Count 8.8 x10^3/uL (4.0-11.0) Red Blood Count 4.44 x10^6/uL (4.30-5.70) Hemoglobin 10.8 g/dL (13.0-17.5) Hematocrit 35.0 % (39.0-53.0) Mean Corpuscular Volume 79 fL (79-100) Mean Corpuscular Hemoglobin 24 pg (25-35) Mean Corpuscular Hemoglobin Concent 31 g/dL (31-37) Red Cell Distribution Width 19.0 % (11.5-14.5) Platelet Count 287 x10^3/uL (140-400) Sodium Level 146 mmol/L (136-145) Potassium Level 5.0 mmol/L (3.5-5.1) Chloride Level 108 mmol/L (98-107) Carbon Dioxide Level 37 mmol/L (21-32) Anion Gap 1 (6-14) Blood Urea Nitrogen 59 mg/dL (8-26) Creatinine 0.8 mg/dL (0.7-1.3) Estimated GFR (Cockcroft-Gault) 124.8 Glucose Level 141 mg/dL (70-99) Calcium Level 9.6 mg/dL (8.5-10.1) Phosphorus Level 4.0 mg/dL (2.6-4.7) Albumin 2.3 g/dL (3.4-5.0) Test 03/27/19 05:47 03/27/19 07:10 03/27/19 12:02 03/27/19 18:13 Glucose (Fingerstick) 123 mg/dL (70-99) 120 mg/dL (70-99) 130 mg/dL (70-99) O2 Saturation 90 % (92-99) Arterial Blood pH 7.39 (7.35-7.45) Arterial Blood pCO2 at Patient Temp 51 mmHg (35-46) Arterial Blood pO2 at Patient Temp 61 mmHg (75-108) Arterial Blood HCO3 31 mmol/L (21-28) Arterial Blood Base Excess 5 mmol/L (-3-3) FiO2 60% Test 03/28/19 00:06 03/28/19 05:40 03/28/19 05:53 03/28/19 06:00 Glucose (Fingerstick) 107 mg/dL (70-99) 84 mg/dL (70-99) 76 mg/dL (70-99) White Blood Count 12.2 x10^3/uL (4.0-11.0) Red Blood Count 4.59 x10^6/uL (4.30-5.70) Hemoglobin 11.0 g/dL (13.0-17.5) Hematocrit 35.6 % (39.0-53.0) Mean Corpuscular Volume 78 fL (79-100) Mean Corpuscular Hemoglobin 24 pg (25-35) Mean Corpuscular Hemoglobin Concent 31 g/dL (31-37) Red Cell Distribution Width 18.9 % (11.5-14.5) Platelet Count 335 x10^3/uL (140-400) Neutrophils (%) (Auto) 85 % (31-73) Lymphocytes (%) (Auto) 8 % (24-48) Monocytes (%) (Auto) 7 % (0-9) Eosinophils (%) (Auto) 0 % (0-3) Basophils (%) (Auto) 0 % (0-3) Neutrophils # (Auto) 10.3 x10^3/uL (1.8-7.7) Lymphocytes # (Auto) 1.0 x10^3/uL (1.0-4.8) Monocytes # (Auto) 0.9 x10^3/uL (0.0-1.1) Eosinophils # (Auto) 0.0 x10^3/uL (0.0-0.7) Basophils # (Auto) 0.0 x10^3/uL (0.0-0.2) Sodium Level 145 mmol/L (136-145) Potassium Level 5.4 mmol/L (3.5-5.1) Chloride Level 108 mmol/L (98-107) Carbon Dioxide Level 34 mmol/L (21-32) Anion Gap 3 (6-14) Blood Urea Nitrogen 61 mg/dL (8-26) Creatinine 0.7 mg/dL (0.7-1.3) Estimated GFR (Cockcroft-Gault) 145.6 Glucose Level 95 mg/dL (70-99) Calcium Level 9.7 mg/dL (8.5-10.1) Triglycerides Level 105 mg/dL (0-150) Test 03/28/19 08:30 O2 Saturation 91 % (92-99) Arterial Blood pH 7.48 (7.35-7.45) Arterial Blood pCO2 at Patient Temp 45 mmHg (35-46) Arterial Blood pO2 at Patient Temp 59 mmHg (75-108) Arterial Blood HCO3 33 mmol/L (21-28) Arterial Blood Base Excess 9 mmol/L (-3-3) FiO2 60 Laboratory Tests Test 03/27/19 12:02 03/27/19 18:13 03/28/19 00:06 03/28/19 05:40 Glucose (Fingerstick) 120 mg/dL (70-99) 130 mg/dL (70-99) 107 mg/dL (70-99) 84 mg/dL (70-99) Test 03/28/19 05:53 03/28/19 06:00 03/28/19 08:30 Glucose (Fingerstick) 76 mg/dL (70-99) White Blood Count 12.2 x10^3/uL (4.0-11.0) Red Blood Count 4.59 x10^6/uL (4.30-5.70) Hemoglobin 11.0 g/dL (13.0-17.5) Hematocrit 35.6 % (39.0-53.0) Mean Corpuscular Volume 78 fL (79-100) Mean Corpuscular Hemoglobin 24 pg (25-35) Mean Corpuscular Hemoglobin Concent 31 g/dL (31-37) Red Cell Distribution Width 18.9 % (11.5-14.5) Platelet Count 335 x10^3/uL (140-400) Neutrophils (%) (Auto) 85 % (31-73) Lymphocytes (%) (Auto) 8 % (24-48) Monocytes (%) (Auto) 7 % (0-9) Eosinophils (%) (Auto) 0 % (0-3) Basophils (%) (Auto) 0 % (0-3) Neutrophils # (Auto) 10.3 x10^3/uL (1.8-7.7) Lymphocytes # (Auto) 1.0 x10^3/uL (1.0-4.8) Monocytes # (Auto) 0.9 x10^3/uL (0.0-1.1) Eosinophils # (Auto) 0.0 x10^3/uL (0.0-0.7) Basophils # (Auto) 0.0 x10^3/uL (0.0-0.2) Sodium Level 145 mmol/L (136-145) Potassium Level 5.4 mmol/L (3.5-5.1) Chloride Level 108 mmol/L (98-107) Carbon Dioxide Level 34 mmol/L (21-32) Anion Gap 3 (6-14) Blood Urea Nitrogen 61 mg/dL (8-26) Creatinine 0.7 mg/dL (0.7-1.3) Estimated GFR (Cockcroft-Gault) 145.6 Glucose Level 95 mg/dL (70-99) Calcium Level 9.7 mg/dL (8.5-10.1) Triglycerides Level 105 mg/dL (0-150) O2 Saturation 91 % (92-99) Arterial Blood pH 7.48 (7.35-7.45) Arterial Blood pCO2 at Patient Temp 45 mmHg (35-46) Arterial Blood pO2 at Patient Temp 59 mmHg (75-108) Arterial Blood HCO3 33 mmol/L (21-28) Arterial Blood Base Excess 9 mmol/L (-3-3) FiO2 60 Medications Active Scripts Medications Dose Route/Sig Max Daily Dose Days Date Category Hydrochlorothiazide Tablet (Hydrochlorothiazide) 25 Mg Tablet 25 Mg PO DAILY 03/10/19 Reported Norvasc (Amlodipine Besylate) 5 Mg Tablet 1 Tab PO DAILY 01/12/19 Rx Lisinopril 5 Mg Tablet 1 Tab PO DAILY 01/12/19 Rx Comments CXR 03/28 BILATERAL INFILTRATES. no obvious change from yesterday, but improved compared to several days ago. Impression . 1. Acute hypercarbic/hypoxic respiratory Failure due to ARDS , vaping related,oxygenation slowly improving on 60%, and PEEP of 9 2. Suspected VAP ABX per ID , currently off ABX 3.Hypertension (controlled) 4. Pre-renal Azotemia, improved 5. Pulm. HTN PA pressure 55 Normal EF 6. HX. of tobacco use 7. Morbid obesity Plan . 1. Continue with present assist control mode. wean PEEP to 9,%FIO2 60%. titrate fi02 to keep sat 92%, When he is at FiO2 of 0.5 or less would then start to wean PEEP. 2. high dose steroids ,initiated 03/16 , dose reduced today, slow taper as tolerated 3. Abx per ID, check all new cultures, off abx at this time 4. Monitor fever and white cell count.overall no further fever 5. Continue bronchodilators. 6. Heparin for DVT prophylaxis 7 azotemia .renal following 8. Remains critically ill, will need tracheostomy and LTACH in future once O2 requirement improves 9. DNR.Continue aggressive supportive care 10. Continue to keep in negative fluid balance. He had modest negative fluid balance with one time lasix yesterday, will repeat lasix 40 mg today. CCM time reviewing case, xrays, examining patient and determining care 35 minutes discussed with RN and RT. We will follow along with you. TANGELA GRIJALVA MD Mar 28, 2019 09:26
[2019-03-28] MEDS ORDERED: FUROSEMIDE 40 MG/4 ML VIAL. IVP ONE (09:30)
--- NOTE | 2019-03-28 14:29 | PDOC ---
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 Increased Troponin Morbid Obesity Pulmonary HTN Tobacco use History of Present Illness History of Present Illness 03/28, in ICU, wean vent if able pulm following Pt is sedated and on ventilation - similar Vitals Vitals Vital Signs Date Time Temp Pulse Resp B/P (MAP) Pulse Ox O2 Delivery O2 Flow Rate FiO2 03/28/19 13:42 25 94 Ventilator 03/28/19 13:00 104 148/91 (110) 93.0 03/28/19 08:00 98.5 98.5 Physical Exam Physical Exam GENERAL: Orally intubated/ sedated - lightly, HEENT: opened eyes Pupils equal, nml conj OGT/ETT NECK: Supple LUNGS: dec bs at bases HEART: S1 and S2, regular. ABDOMEN: Obese, soft, +BS : Ramos in place fecal tube in place EXTREMITIES: Trace edema - MITTS SKIN: Chronic stasis dermatitis on the lower extremity. NEUROLOGIC: Sedated IVS; Old RIJ site clean. RUE - PICC clean General: No acute distress, Other (short neck , Mallampati 4 ON VENT) Heart: Regular rate (SR), Other (distante heart sounds) Lungs: Other (decrease bs) Abdomen: Normal bowel sounds, Soft, No tenderness, No hepatosplenomegaly, No masses Extremities: No clubbing, No cyanosis, No edema, Normal pulses, No tenderness/swelling Skin: No rashes, No breakdown, No significant lesion Labs LABS Laboratory Tests Test 03/27/19 18:13 03/28/19 00:06 03/28/19 05:40 03/28/19 05:53 Glucose (Fingerstick) 130 mg/dL (70-99) 107 mg/dL (70-99) 84 mg/dL (70-99) 76 mg/dL (70-99) Test 03/28/19 06:00 03/28/19 08:30 03/28/19 12:18 White Blood Count 12.2 x10^3/uL (4.0-11.0) Red Blood Count 4.59 x10^6/uL (4.30-5.70) Hemoglobin 11.0 g/dL (13.0-17.5) Hematocrit 35.6 % (39.0-53.0) Mean Corpuscular Volume 78 fL (79-100) Mean Corpuscular Hemoglobin 24 pg (25-35) Mean Corpuscular Hemoglobin Concent 31 g/dL (31-37) Red Cell Distribution Width 18.9 % (11.5-14.5) Platelet Count 335 x10^3/uL (140-400) Neutrophils (%) (Auto) 85 % (31-73) Lymphocytes (%) (Auto) 8 % (24-48) Monocytes (%) (Auto) 7 % (0-9) Eosinophils (%) (Auto) 0 % (0-3) Basophils (%) (Auto) 0 % (0-3) Neutrophils # (Auto) 10.3 x10^3/uL (1.8-7.7) Lymphocytes # (Auto) 1.0 x10^3/uL (1.0-4.8) Monocytes # (Auto) 0.9 x10^3/uL (0.0-1.1) Eosinophils # (Auto) 0.0 x10^3/uL (0.0-0.7) Basophils # (Auto) 0.0 x10^3/uL (0.0-0.2) Sodium Level 145 mmol/L (136-145) Potassium Level 5.4 mmol/L (3.5-5.1) Chloride Level 108 mmol/L (98-107) Carbon Dioxide Level 34 mmol/L (21-32) Anion Gap 3 (6-14) Blood Urea Nitrogen 61 mg/dL (8-26) Creatinine 0.7 mg/dL (0.7-1.3) Estimated GFR (Cockcroft-Gault) 145.6 Glucose Level 95 mg/dL (70-99) Calcium Level 9.7 mg/dL (8.5-10.1) Triglycerides Level 105 mg/dL (0-150) O2 Saturation 91 % (92-99) Arterial Blood pH 7.48 (7.35-7.45) Arterial Blood pCO2 at Patient Temp 45 mmHg (35-46) Arterial Blood pO2 at Patient Temp 59 mmHg (75-108) Arterial Blood HCO3 33 mmol/L (21-28) Arterial Blood Base Excess 9 mmol/L (-3-3) FiO2 60 Glucose (Fingerstick) 98 mg/dL (70-99) Assessment and Plan Assessmemt and Plan Problems Medical Problems: (1) CHF exacerbation Status: Acute (2) COPD exacerbation Status: Acute (3) Hypoxia Status: Acute (4) NSTEMI (non-ST elevated myocardial infarction) Status: Acute (5) Respiratory failure Status: Acute Comment Review of Relevant I have reviewed the following items peter (where applicable) has been applied. Labs Laboratory Tests Test 03/26/19 17:26 03/27/19 00:08 03/27/19 05:45 03/27/19 05:47 Glucose (Fingerstick) 115 mg/dL (70-99) 128 mg/dL (70-99) 123 mg/dL (70-99) White Blood Count 8.8 x10^3/uL (4.0-11.0) Red Blood Count 4.44 x10^6/uL (4.30-5.70) Hemoglobin 10.8 g/dL (13.0-17.5) Hematocrit 35.0 % (39.0-53.0) Mean Corpuscular Volume 79 fL (79-100) Mean Corpuscular Hemoglobin 24 pg (25-35) Mean Corpuscular Hemoglobin Concent 31 g/dL (31-37) Red Cell Distribution Width 19.0 % (11.5-14.5) Platelet Count 287 x10^3/uL (140-400) Sodium Level 146 mmol/L (136-145) Potassium Level 5.0 mmol/L (3.5-5.1) Chloride Level 108 mmol/L (98-107) Carbon Dioxide Level 37 mmol/L (21-32) Anion Gap 1 (6-14) Blood Urea Nitrogen 59 mg/dL (8-26) Creatinine 0.8 mg/dL (0.7-1.3) Estimated GFR (Cockcroft-Gault) 124.8 Glucose Level 141 mg/dL (70-99) Calcium Level 9.6 mg/dL (8.5-10.1) Phosphorus Level 4.0 mg/dL (2.6-4.7) Albumin 2.3 g/dL (3.4-5.0) Test 03/27/19 07:10 03/27/19 12:02 03/27/19 18:13 03/28/19 00:06 O2 Saturation 90 % (92-99) Arterial Blood pH 7.39 (7.35-7.45) Arterial Blood pCO2 at Patient Temp 51 mmHg (35-46) Arterial Blood pO2 at Patient Temp 61 mmHg (75-108) Arterial Blood HCO3 31 mmol/L (21-28) Arterial Blood Base Excess 5 mmol/L (-3-3) FiO2 60% Glucose (Fingerstick) 120 mg/dL (70-99) 130 mg/dL (70-99) 107 mg/dL (70-99) Test 03/28/19 05:40 03/28/19 05:53 03/28/19 06:00 03/28/19 08:30 Glucose (Fingerstick) 84 mg/dL (70-99) 76 mg/dL (70-99) White Blood Count 12.2 x10^3/uL (4.0-11.0) Red Blood Count 4.59 x10^6/uL (4.30-5.70) Hemoglobin 11.0 g/dL (13.0-17.5) Hematocrit 35.6 % (39.0-53.0) Mean Corpuscular Volume 78 fL (79-100) Mean Corpuscular Hemoglobin 24 pg (25-35) Mean Corpuscular Hemoglobin Concent 31 g/dL (31-37) Red Cell Distribution Width 18.9 % (11.5-14.5) Platelet Count 335 x10^3/uL (140-400) Neutrophils (%) (Auto) 85 % (31-73) Lymphocytes (%) (Auto) 8 % (24-48) Monocytes (%) (Auto) 7 % (0-9) Eosinophils (%) (Auto) 0 % (0-3) Basophils (%) (Auto) 0 % (0-3) Neutrophils # (Auto) 10.3 x10^3/uL (1.8-7.7) Lymphocytes # (Auto) 1.0 x10^3/uL (1.0-4.8) Monocytes # (Auto) 0.9 x10^3/uL (0.0-1.1) Eosinophils # (Auto) 0.0 x10^3/uL (0.0-0.7) Basophils # (Auto) 0.0 x10^3/uL (0.0-0.2) Sodium Level 145 mmol/L (136-145) Potassium Level 5.4 mmol/L (3.5-5.1) Chloride Level 108 mmol/L (98-107) Carbon Dioxide Level 34 mmol/L (21-32) Anion Gap 3 (6-14) Blood Urea Nitrogen 61 mg/dL (8-26) Creatinine 0.7 mg/dL (0.7-1.3) Estimated GFR (Cockcroft-Gault) 145.6 Glucose Level 95 mg/dL (70-99) Calcium Level 9.7 mg/dL (8.5-10.1) Triglycerides Level 105 mg/dL (0-150) O2 Saturation 91 % (92-99) Arterial Blood pH 7.48 (7.35-7.45) Arterial Blood pCO2 at Patient Temp 45 mmHg (35-46) Arterial Blood pO2 at Patient Temp 59 mmHg (75-108) Arterial Blood HCO3 33 mmol/L (21-28) Arterial Blood Base Excess 9 mmol/L (-3-3) FiO2 60 Test 03/28/19 12:18 Glucose (Fingerstick) 98 mg/dL (70-99) Laboratory Tests Test 03/27/19 18:13 03/28/19 00:06 03/28/19 05:40 03/28/19 05:53 Glucose (Fingerstick) 130 mg/dL (70-99) 107 mg/dL (70-99) 84 mg/dL (70-99) 76 mg/dL (70-99) Test 03/28/19 06:00 03/28/19 08:30 03/28/19 12:18 White Blood Count 12.2 x10^3/uL (4.0-11.0) Red Blood Count 4.59 x10^6/uL (4.30-5.70) Hemoglobin 11.0 g/dL (13.0-17.5) Hematocrit 35.6 % (39.0-53.0) Mean Corpuscular Volume 78 fL (79-100) Mean Corpuscular Hemoglobin 24 pg (25-35) Mean Corpuscular Hemoglobin Concent 31 g/dL (31-37) Red Cell Distribution Width 18.9 % (11.5-14.5) Platelet Count 335 x10^3/uL (140-400) Neutrophils (%) (Auto) 85 % (31-73) Lymphocytes (%) (Auto) 8 % (24-48) Monocytes (%) (Auto) 7 % (0-9) Eosinophils (%) (Auto) 0 % (0-3) Basophils (%) (Auto) 0 % (0-3) Neutrophils # (Auto) 10.3 x10^3/uL (1.8-7.7) Lymphocytes # (Auto) 1.0 x10^3/uL (1.0-4.8) Monocytes # (Auto) 0.9 x10^3/uL (0.0-1.1) Eosinophils # (Auto) 0.0 x10^3/uL (0.0-0.7) Basophils # (Auto) 0.0 x10^3/uL (0.0-0.2) Sodium Level 145 mmol/L (136-145) Potassium Level 5.4 mmol/L (3.5-5.1) Chloride Level 108 mmol/L (98-107) Carbon Dioxide Level 34 mmol/L (21-32) Anion Gap 3 (6-14) Blood Urea Nitrogen 61 mg/dL (8-26) Creatinine 0.7 mg/dL (0.7-1.3) Estimated GFR (Cockcroft-Gault) 145.6 Glucose Level 95 mg/dL (70-99) Calcium Level 9.7 mg/dL (8.5-10.1) Triglycerides Level 105 mg/dL (0-150) O2 Saturation 91 % (92-99) Arterial Blood pH 7.48 (7.35-7.45) Arterial Blood pCO2 at Patient Temp 45 mmHg (35-46) Arterial Blood pO2 at Patient Temp 59 mmHg (75-108) Arterial Blood HCO3 33 mmol/L (21-28) Arterial Blood Base Excess 9 mmol/L (-3-3) FiO2 60 Glucose (Fingerstick) 98 mg/dL (70-99) Microbiology 03/16/19 - Final, Complete 03/16/19 - Final, Complete 03/16/19 Gram Stain Evaluation - Final, Complete 03/16/19 Sputum Culture - Final, Complete 03/16/19 Sputum Result 1 - Final, Complete 03/16/19 Blood Culture - Final, Complete NO GROWTH AFTER 5 DAYS 03/09/19 Urine Culture - Final, Complete 03/09/19 Urine Culture Result 1 (WIL) - Final, Complete Medications Current Medications Albuterol/ Ipratropium (Duoneb) 3 ml 1X ONCE NEB Last administered on 03/09/19at 21:21; Start 03/09/19 at 21:30; Stop 03/09/19 at 21:31; Status DC Dexamethasone Sodium Phosphate (Decadron) 10 mg 1X ONCE IV Last administered on 03/09/19at 22:29; Start 03/09/19 at 22:00; Stop 03/09/19 at 22:01; Status DC Propofol 100 ml @ 0 mls/hr CONT PRN IV SEE PROTOCOL Last administered on 03/10/19at 07:19; Start 03/09/19 at 22:30; Stop 03/10/19 at 07:28; Status DC Fentanyl Citrate (Fentanyl 2ml Vial) 50 mcg PRN Q1HR PRN IV SEE COMMENTS; Start 03/09/19 at 22:30; Stop 03/10/19 at 07:28; Status DC Chlorhexidine Gluconate (Peridex) 15 ml BID MM Last administered on 03/28/19at 08:16; Start 03/10/19 at 09:00 Famotidine (Pepcid Vial) 20 mg BID IVP Last administered on 03/28/19at 08:16; Start 03/10/19 at 09:00 Propofol 50 ml @ As Directed STK-MED ONCE IV ; Start 03/09/19 at 22:28; Stop 03/09/19 at 22:28; Status DC Albuterol/ Ipratropium (Duoneb) 3 ml 1X ONCE NEB Last administered on 03/10/19at 02:04; Start 03/09/19 at 23:00; Stop 03/09/19 at 23:01; Status DC Albuterol/ Ipratropium (Duoneb) 3 ml 1X ONCE NEB Last administered on 03/10/19at 02:04; Start 03/09/19 at 23:00; Stop 03/09/19 at 23:01; Status DC Fentanyl Citrate (Fentanyl 2ml Vial) 100 mcg 1X ONCE IV Last administered on 03/09/19at 23:31; Start 03/09/19 at 23:30; Stop 03/09/19 at 23:31; Status DC Bumetanide (Bumex) 1 mg 1X ONCE IV Last administered on 03/10/19at 00:21; Start 03/10/19 at 00:00; Stop 03/10/19 at 00:01; Status DC Heparin Sodium (Porcine) (Heparin Sodium) 4,000 unit 1X ONCE IV Last administered on 03/10/19at 00:31; Start 03/10/19 at 00:00; Stop 03/10/19 at 00:01; Status DC Heparin Sodium/ Dextrose 500 ml @ 0 mls/hr CONT PRN IV PER PROTOCOL Last administered on 03/10/19at 23:34; Start 03/09/19 at 23:45; Stop 03/11/19 at 16:13; Status DC Heparin Sodium (Porcine) (Heparin Sodium) 5,500 unit PRN Q6HRS PRN IV FOR UFH LEVEL LESS THAN 0.2 Last administered on 03/11/19at 00:57; Start 03/09/19 at 23:45; Stop 03/11/19 at 16:13; Status DC Aspirin (Aspirin Rectal Supp) 300 mg 1X ONCE MD Last administered on 03/10/19at 03:42; Start 03/10/19 at 00:00; Stop 03/10/19 at 00:01; Status DC Propofol 50 ml @ As Directed STK-MED ONCE IV ; Start 03/09/19 at 23:38; Stop 03/09/19 at 23:38; Status DC Propofol 50 ml @ As Directed STK-MED ONCE IV ; Start 03/09/19 at 23:38; Stop 03/09/19 at 23:38; Status DC Piperacillin Sod/ Tazobactam Sod 4.5 gm/Sodium Chloride 100 ml @ 200 mls/hr 1X ONCE IV Last administered on 03/10/19at 05:19; Start 03/10/19 at 00:30; Stop 03/10/19 at 00:59; Status DC Propofol 50 ml @ As Directed STK-MED ONCE IV ; Start 03/10/19 at 00:51; Stop 03/10/19 at 00:51; Status DC Propofol 50 ml @ As Directed STK-MED ONCE IV ; Start 03/10/19 at 01:14; Stop 03/10/19 at 01:15; Status DC Fentanyl Citrate (Fentanyl 2ml Vial) 100 mcg 1X ONCE IV Last administered on 03/10/19at 01:26; Start 03/10/19 at 01:45; Stop 03/10/19 at 01:46; Status DC Clonidine HCl (Catapres) 0.1 mg 1X ONCE PO ; Start 03/10/19 at 01:30; Stop 03/10/19 at 01:34; Status DC Midazolam HCl (Versed) 5 mg 1X ONCE IV Last administered on 03/10/19at 01:28; Start 03/10/19 at 01:30; Stop 03/10/19 at 01:34; Status DC Propofol 50 ml @ As Directed STK-MED ONCE IV ; Start 03/10/19 at 02:08; Stop 03/10/19 at 02:09; Status DC Propofol 50 ml @ As Directed STK-MED ONCE IV ; Start 03/10/19 at 02:36; Stop 03/10/19 at 02:36; Status DC Rocuronium [place] (Zemuron) 50 mg STK-MED ONCE .ROUTE ; Start 03/10/19 at 05:15; Stop 03/10/19 at 05:15; Status DC Etomidate (Amidate) 20 mg STK-MED ONCE IV ; Start 03/10/19 at 05:15; Stop 03/10/19 at 05:16; Status DC Fentanyl Citrate 30 ml @ 0 mls/hr CONT PRN IV SEE PROTOCOL Last administered on 03/28/19at 13:42; Start 03/10/19 at 07:30 Propofol 100 ml @ 0 mls/hr CONT PRN IV SEE PROTOCOL Last administered on 03/28/19at 13:42; Start 03/10/19 at 07:30 Fentanyl Citrate (Fentanyl 2ml Vial) 25 mcg PRN Q1HR PRN IV SEE COMMENTS; Start 03/10/19 at 07:30 Fentanyl Citrate (Fentanyl 2ml Vial) 50 mcg PRN Q1HR PRN IV SEE COMMENTS; Start 03/10/19 at 07:30 Artificial Tears (Artificial Tears) 1 drop PRN Q1HR PRN OU DRY EYE, 1ST CHOICE Last administered on 03/13/19at 13:32; Start 03/10/19 at 07:30 Famotidine (Pepcid Vial) 20 mg BID IVP ; Start 03/10/19 at 09:00; Status UNV Morphine Sulfate (Morphine Sulfate) 2 mg PRN Q1HR PRN IV SEE COMMENTS. Last administered on 03/25/19at 09:18; Start 03/10/19 at 07:30 Morphine Sulfate (Morphine Sulfate) 4 mg PRN Q1HR PRN IV SEE COMMENTS.; Start 03/10/19 at 07:30 Midazolam HCl 100 ml @ 0 mls/hr CONT PRN IV SEE PROTOCOL Last administered on 03/28/19at 13:42; Start 03/10/19 at 07:30 Levofloxacin/ Dextrose (Levaquin Per Pharmacy) 1 each PRN DAILY PRN MC SEE COMMENTS; Start 03/10/19 at 08:15; Stop 03/14/19 at 09:25; Status DC Albuterol/ Ipratropium (Duoneb) 3 ml RTQID NEB Last administered on 03/28/19at 11:45; Start 03/10/19 at 12:00 Sodium Chloride 1,000 ml @ 100 mls/hr Q10H IV Last administered on 03/10/19at 23:34; Start 03/10/19 at 08:15; Stop 03/11/19 at 16:02; Status DC Amlodipine Besylate (Norvasc) 5 mg DAILY PO Last administered on 03/10/19at 09:13; Start 03/10/19 at 09:00; Stop 03/10/19 at 10:04; Status DC Hydrochlorothiazide (Hydrodiuril) 25 mg DAILY PO Last administered on 03/10/19 09:13; Start 03/10/19 at 09:00; Stop 03/10/19 at 10:04; Status DC Lisinopril (Prinivil) 5 mg DAILY PO Last administered on 03/10/19at 09:13; Start 03/10/19 at 09:00; Stop 03/10/19 at 10:04; Status DC Levofloxacin/ Dextrose 100 ml @ 100 mls/hr Q24H IV Last administered on 03/14/19 08:10; Start 03/10/19 at 09:00; Stop 03/14/19 at 09:25; Status DC Aspirin (Amanda Aspirin) 325 mg 1X ONCE PO Last administered on 03/10/19at 10:55; Start 03/10/19 at 10:30; Stop 03/10/19 at 10:31; Status DC Aspirin (Children'S Aspirin) 81 mg DAILYWBKFT PO Last administered on 03/28/19at 08:16; Start 03/11/19 at 08:00 Amlodipine Besylate (Norvasc) 10 mg DAILY PO Last administered on 03/11/19at 09:37; Start 03/11/19 at 09:00; Stop 03/11/19 at 12:50; Status DC Hydralazine HCl (Apresoline Inj) 10 mg PRN Q4HRS PRN IVP ELEVATED BP, SEE COMMENTS; Start 03/10/19 at 10:15; Stop 03/12/19 at 09:37; Status DC Furosemide (Lasix) 40 mg DAILY IVP Last administered on 03/11/19at 09:37; Start 03/10/19 at 11:00; Stop 03/11/19 at 11:24; Status DC Insulin Human Lispro (HumaLOG) 0-9 UNITS TIDWMEALS SQ ; Start 03/10/19 at 12:00; Stop 03/10/19 at 17:57; Status DC Dextrose (Dextrose 50%-Water Syringe) 12.5 gm PRN Q15MIN PRN IV SEE COMMENTS; Start 03/10/19 at 11:15; Stop 03/12/19 at 16:47; Status DC Dextrose 250 ml PRN Q15MIN PRN IV SEE COMMENTS; Start 03/10/19 at 11:15; Stop 03/10/19 at 11:05; Status DC Iohexol (Omnipaque 350 Mg/ml) 100 ml 1X ONCE IV Last administered on 03/10/19at 14:05; Start 03/10/19 at 11:45; Stop 03/10/19 at 11:47; Status DC Info (CONTRAST GIVEN -- Rx MONITORING) 1 each PRN DAILY PRN MC SEE COMMENTS; Start 03/10/19 at 11:45; Stop 03/12/19 at 11:44; Status DC Piperacillin Sod/ Tazobactam Sod (Zosyn Per Pharmacy) 1 each PRN DAILY PRN MC SEE COMMENTS; Start 03/10/19 at 11:45; Stop 03/25/19 at 08:36; Status DC Vancomycin HCl (Vanco Per Pharmacy) 1 each PRN DAILY PRN MC SEE COMMENTS Last administered on 03/11/19at 09:42; Start 03/10/19 at 11:45; Stop 03/11/19 at 13:57; Status DC Vancomycin HCl 2 gm/Sodium Chloride 500 ml @ 250 mls/hr 1X ONCE IV Last administered on 03/10/19at 12:41; Start 03/10/19 at 13:00; Stop 03/10/19 at 14:59; Status DC Piperacillin Sod/ Tazobactam Sod 3.375 gm/Sodium Chloride 50 ml @ 100 mls/hr Q6HRS IV Last administered on 03/24/19at 05:45; Start 03/10/19 at 12:30; Stop 03/24/19 at 07:24; Status DC Vancomycin HCl 1.75 gm/Sodium Chloride 500 ml @ 250 mls/hr Q12H IV Last administered on 03/11/19at 12:43; Start 03/11/19 at 01:00; Stop 03/11/19 at 13:57; Status DC Vancomycin HCl (Vancomycin Trough Level) 1 each 1X ONCE MC ; Start 03/12/19 at 12:30; Stop 03/12/19 at 12:31; Status Cancel Insulin Human Lispro (HumaLOG) 0-9 UNITS Q6HRS SQ ; Start 03/11/19 at 00:00; Stop 03/27/19 at 09:06; Status DC Magnesium Sulfate/ Dextrose 100 ml @ 50 mls/hr DAILY IV Last administered on 03/11/19at 09:28; Start 03/11/19 at 09:00; Stop 03/14/19 at 08:59; Status DC Potassium Phosphate 27.2 mmol/Sodium Chloride 259.0667 ml @ 64.753 m... 1X ONCE IV Last administered on 03/11/19at 09:28; Start 03/11/19 at 10:00; Stop 03/11/19 at 14:00; Status DC Potassium Phosphate 27.2 mmol/Sodium Chloride 259.0667 ml @ 64.753 m... 1X ONCE IV ; Start 03/11/19 at 14:00; Stop 03/11/19 at 18:00; Status DC Lorazepam (Ativan Inj) 1 mg PRN Q1HR PRN IV ANXIETY Last administered on 03/14/19at 16:32; Start 03/11/19 at 11:00; Stop 03/19/19 at 10:31; Status DC Sodium Chloride 1,000 ml @ 1,000 mls/hr 1X ONCE IV Last administered on 03/11/19at 12:06; Start 03/11/19 at 11:30; Stop 03/11/19 at 12:29; Status DC Norepinephrine Bitartrate 250 ml @ 27.837 mls/ hr CONT PRN IV SEE I/O RECORD Last administered on 03/13/19at 04:13; Start 03/11/19 at 13:00; Stop 03/26/19 at 09:22; Status DC Hydralazine HCl (Apresoline Inj) 10 mg PRN Q4HRS PRN IVP ELEVATED BP, SEE COMMENTS Last administered on 03/22/19at 06:13; Start 03/11/19 at 13:00 Linezolid/Dextrose 300 ml @ 300 mls/hr Q12HR IV Last administered on 03/22/19at 21:38; Start 03/11/19 at 21:00; Stop 03/23/19 at 07:48; Status DC Potassium Chloride/Water 50 ml @ 50 mls/hr Q1H IV Last administered on 03/11/19at 17:28; Start 03/11/19 at 16:00; Stop 03/11/19 at 17:59; Status DC Heparin Sodium (Porcine) (Heparin Sodium) 5,000 unit Q8HRS SQ Last administered on 03/28/19at 14:05; Start 03/11/19 at 22:00 Multi-Ingred Cream/Lotion/Oil/ Oint (Artificial Tears Eye Ointment) 1 zuri PRN Q1HR PRN OU DRY EYE; Start 03/12/19 at 09:00 Potassium Chloride/Water 50 ml @ 50 mls/hr 1X ONCE IV Last administered on 03/12/19at 09:44; Start 03/12/19 at 10:00; Stop 03/12/19 at 10:59; Status DC Potassium Chloride/Water 50 ml @ 50 mls/hr 1X ONCE IV ; Start 03/12/19 at 10:30; Stop 03/12/19 at 11:31; Status DC Insulin Human Lispro (HumaLOG) 0-9 UNITS TIDWMEALS SQ ; Start 03/12/19 at 17:00; Stop 03/12/19 at 16:24; Status DC Dextrose (Dextrose 50%-Water Syringe) 12.5 gm PRN Q15MIN PRN IV SEE COMMENTS; Start 03/12/19 at 16:15 Dextrose 250 ml PRN Q15MIN PRN IV SEE COMMENTS; Start 03/12/19 at 16:15; Stop 03/27/19 at 08:59; Status DC Insulin Human Lispro (HumaLOG) 0-9 UNITS Q6HRS SQ Last administered on 03/26/19at 00:37; Start 03/12/19 at 18:00 Dexmedetomidine HCl 400 mcg/ Sodium Chloride 100 ml @ 0 mls/hr CONT PRN IV ANXIETY / AGITATION Last administered on 03/21/19at 04:33; Start 03/12/19 at 20:30; Stop 03/26/19 at 09:22; Status DC Sodium Chloride 500 ml @ 500 mls/hr 1X PRN PRN IV see comments Last administered on 03/12/19at 23:22; Start 03/12/19 at 20:30 Atropine Sulfate (ATROPINE 0.5mg SYRINGE) 0.5 mg PRN Q5MIN PRN IV SEE COMMENTS; Start 03/12/19 at 20:30 Vecuronium [place] (Norcuron Bolus) 10 mg PRN Q1HR PRN IV ON VENT/RESP FAILURE Last administered on 03/25/19at 10:49; Start 03/13/19 at 07:30 Perflutren Protein Type A Microsphe (Optison) 0.66 mg STK-MED ONCE IV ; Start 03/13/19 at 09:08; Stop 03/13/19 at 09:08; Status DC Perflutren Protein Type A Microsphe (Optison) 0.66 mg 1X ONCE IV Last administered on 03/13/19at 09:40; Start 03/13/19 at 09:15; Stop 03/13/19 at 09:16; Status DC Furosemide (Lasix) 40 mg 1X ONCE IVP Last administered on 03/13/19at 13:32; Start 03/13/19 at 10:30; Stop 03/13/19 at 10:31; Status DC Daptomycin 1320 mg/Sodium Chloride 50 ml @ 100 mls/hr ONCE ONCE IV Last administered on 03/15/19at 13:53; Start 03/15/19 at 13:00; Stop 03/16/19 at 09:33; Status DC Daptomycin 1340 mg/Sodium Chloride 50 ml @ 100 mls/hr Q24H IV ; Start 03/16/19 at 08:45; Status UNV Daptomycin 1340 mg/Sodium Chloride 50 ml @ 100 mls/hr Q24H IV ; Start 03/16/19 at 09:00; Status Cancel Daptomycin 830 mg/ Sodium Chloride 50 ml @ 100 mls/hr Q24H IV Last administered on 03/18/19at 15:03; Start 03/16/19 at 14:00; Stop 03/19/19 at 07:41; Status DC Methylprednisolone Sodium Succinate (SOLU-Medrol 125MG VIAL) 100 mg Q8HRS IV Last administered on 03/23/19at 05:54; Start 03/16/19 at 12:00; Stop 03/23/19 at 12:03; Status DC Furosemide (Lasix) 40 mg 1X ONCE IVP Last administered on 03/16/19at 16:46; Start 03/16/19 at 16:30; Stop 03/16/19 at 16:31; Status DC Fentanyl Citrate (Fentanyl 600 Mcg/30 ml CATALYST OPERATOR CHIEF) 600 mcg STK-MED ONCE IV ; Start 03/13/19 at 17:00; Stop 03/17/19 at 11:02; Status DC Furosemide 100 mg/ Sodium Chloride 100 ml @ 5 mls/hr CONT PRN IV SEE I/O RECORD Last administered on 03/18/19at 00:20; Start 03/17/19 at 15:45; Stop 03/18/19 at 10:36; Status DC Furosemide 100 mg/ Sodium Chloride 100 ml @ 5 mls/hr CONT PRN IV SEE I/O RECORD Last administered on 03/21/19at 08:34; Start 03/18/19 at 10:45; Stop 03/21/19 at 12:57; Status DC Lorazepam (Ativan Inj) 2 mg PRN Q1HR PRN IV ANXIETY Last administered on 03/20/19at 17:11; Start 03/19/19 at 10:45 Lisinopril (Prinivil) 5 mg DAILY PO Last administered on 03/28/19at 09:10; Start 03/21/19 at 11:30 Amlodipine Besylate (Norvasc) 10 mg DAILY PO Last administered on 03/28/19at 08:16; Start 03/21/19 at 11:30 Furosemide 100 mg/ Sodium Chloride 100 ml @ 10 mls/hr CONT PRN IV SEE I/O RECORD Last administered on 03/22/19at 05:05; Start 03/21/19 at 16:00; Stop 03/22/19 at 12:39; Status DC Scopolamine (Transderm-Scop) 1 patch Q3DAYS TD Last administered on 03/28/19at 08:16; Start 03/22/19 at 11:00 Furosemide 100 mg/ Sodium Chloride 100 ml @ 5 mls/hr CONT PRN IV SEE I/O RECORD Last administered on 03/22/19at 21:38; Start 03/22/19 at 12:45; Stop 03/23/19 at 17:48; Status DC Methylprednisolone Sodium Succinate (SOLU-Medrol 125MG VIAL) 50 mg Q8HRS IV Last administered on 03/27/19at 05:30; Start 03/23/19 at 14:00; Stop 03/27/19 at 11:20; Status DC Insulin Human Lispro (HumaLOG) 0-5 UNITS TIDWMEALS SQ ; Start 03/27/19 at 09:30; Status Cancel Dextrose (Dextrose 50%-Water Syringe) 12.5 gm PRN Q15MIN PRN IV SEE COMMENTS; Start 03/27/19 at 09:00; Status Cancel Dextrose 250 ml PRN Q15MIN PRN IV SEE COMMENTS; Start 03/27/19 at 09:00; Status Cancel Methylprednisolone Sodium Succinate (SOLU-Medrol 40MG VIAL) 30 mg Q8HRS IV Last administered on 03/28/19at 14:05; Start 03/27/19 at 14:00 Furosemide (Lasix) 40 mg 1X ONCE IVP Last administered on 03/27/19at 11:58; Start 03/27/19 at 12:00; Stop 03/27/19 at 12:01; Status DC Furosemide (Lasix) 40 mg 1X ONCE IVP Last administered on 03/28/19at 10:15; Start 03/28/19 at 09:30; Stop 03/28/19 at 09:46; Status DC Active Scripts Active Norvasc (Amlodipine Besylate) 5 Mg Tablet 1 Tab PO DAILY Lisinopril 5 Mg Tablet 1 Tab PO DAILY Reported Hydrochlorothiazide Tablet (Hydrochlorothiazide) 25 Mg Tablet 25 Mg PO DAILY Vitals/I & O Vital Sign - Last 24 Hours 03/27/19 03/27/19 03/27/19 03/27/19 15:00 15:38 16:00 16:00 Temp 97.7 97.7 Pulse 61 58 Resp 18 19 B/P (MAP) 110/67 (81) 99/54 (69) Pulse Ox 97 96 96 O2 Delivery Ventilator Ventilator Ventilator Mechanical Ventilator 03/27/19 03/27/19 03/27/19 03/27/19 16:51 17:00 18:00 19:00 Pulse 50 52 50 Resp 20 20 16 B/P (MAP) 119/76 (90) 105/64 (78) 115/69 (84) Pulse Ox 96 95 95 96 O2 Delivery Ventilator Ventilator Ventilator Ventilator 03/27/19 03/27/19 03/27/19 03/27/19 19:58 20:00 20:00 21:00 Temp 98.4 98.4 Pulse 54 66 Resp 16 16 B/P (MAP) 94/53 (67) 114/67 (83) Pulse Ox 96 96 93 O2 Delivery Ventilator Ventilator Mechanical Ventilator Ventilator 03/27/19 03/27/19 03/27/19 03/27/19 22:00 22:41 22:52 23:00 Pulse 84 84 Resp 16 27 B/P (MAP) 141/86 (104) 131/96 (108) Pulse Ox 94 95 O2 Delivery Ventilator Ventilator Ventilator Ventilator 03/27/19 03/28/19 03/28/19 03/28/19 23:10 00:00 00:00 01:00 Temp 99.1 99.1 Pulse 82 57 Resp 16 17 B/P (MAP) 145/84 (104) 123/76 (92) Pulse Ox 96 92 95 O2 Delivery Ventilator Ventilator Mechanical Ventilator Ventilator 03/28/19 03/28/19 03/28/19 03/28/19 01:18 02:00 03:00 03:40 Pulse 55 82 Resp 16 24 B/P (MAP) 108/64 (79) 133/87 (102) Pulse Ox 96 95 95 96 O2 Delivery Ventilator Ventilator Ventilator Ventilator 03/28/19 03/28/19 03/28/19 03/28/19 03:44 04:00 04:00 04:43 Temp 98.4 98.4 Pulse 90 Resp 16 B/P (MAP) 148/87 (107) Pulse Ox 94 O2 Delivery Ventilator Mechanical Ventilator Ventilator Ventilator 03/28/19 03/28/19 03/28/19 03/28/19 05:00 05:45 06:00 07:00 Pulse 88 85 83 Resp 25 27 24 B/P (MAP) 169/92 (117) 153/86 (108) 142/89 (106) Pulse Ox 96 96 95 95 O2 Delivery Ventilator Ventilator Ventilator Ventilator 03/28/19 03/28/19 03/28/19 03/28/19 07:25 08:00 08:00 08:16 Temp 98.5 98.5 Pulse 85 88 Resp 31 B/P (MAP) 167/100 (122) 156/103 Pulse Ox 93 94 O2 Delivery Ventilator Ventilator Mechanical Ventilator 03/28/19 03/28/19 03/28/19 03/28/19 09:00 09:06 09:10 09:19 Pulse 103 92 Resp 29 29 B/P (MAP) 158/97 (117) 131/81 Pulse Ox 95 95 96 O2 Delivery Ventilator Ventilator Ventilator 03/28/19 03/28/19 03/28/19 03/28/19 10:00 10:37 11:00 11:45 Pulse 103 102 Resp 29 27 26 B/P (MAP) 158/97 (117) 154/91 (112) Pulse Ox 95 94 95 95 O2 Delivery Ventilator Ventilator Ventilator Ventilator 03/28/19 03/28/19 03/28/19 03/28/19 12:00 12:00 13:00 13:20 Pulse 108 104 Resp 28 26 B/P (MAP) 130/84 (99) 148/91 (110) Pulse Ox 97 97 95 O2 Delivery Ventilator Mechanical Ventilator Ventilator Ventilator O2 Flow Rate 93.0 03/28/19 13:42 Resp 25 Pulse Ox 94 O2 Delivery Ventilator Intake and Output 03/27/19 03/27/19 03/28/19 15:00 23:00 07:00 Intake Total 400 ml 2226.34 ml 1993.7 ml Output Total 1065 ml 1375 ml 1935 ml Balance -665 ml 851.34 ml 58.7 ml ERROL CASILLAS MD Mar 28, 2019 14:29
[2019-03-29] VITALS (25 sets, daily range): BP systolic 92–175; BP diastolic 55–98
[2019-03-29] MEDS: MIDAZOLAM 100mg/100ml NS BAG 100 ML IV PRN ×3 (02:26→13:24)
[2019-03-29] MEDS: PROPOFOL 100 ML IV PRN ×11 (02:30→22:29)
[2019-03-29] MEDS: INSULIN LISPRO 300 UNITS/3 ML VIAL. SQ SCH ×4 (05:56→18:00)
[2019-03-29] MEDS: methylPREDNISolone SOD SUCC PF 40 MG/ML VIAL. IV SCH ×3 (05:57→21:18)
[2019-03-29] MEDS: HEPARIN for SUB-Q USE 5,000 UNIT/ML VIAL. SQ SCH ×3 (05:58→21:20)
[2019-03-29 06:01] LABS: BASO % 0 % (0-3); EOS % 0 % (0-3); HEMATOCRIT 30.8 % (39.0-53.0); HEMOGLOBIN 9.7 g/dL (13.0-17.5); LYMPH # 0.9 x10^3/uL (1.0-4.8); LYMPH % 6 % (24-48); MEAN CORPUSCULAR HEMOGLOBIN 25 pg (25-35); MEAN CORPUSCULAR HGB CONC 31 g/dL (31-37); MEAN CORPUSCULAR VOLUME 78 fL (79-100); MONO # 1.1 x10^3/uL (0.0-1.1); MONO % 8 % (0-9); NEUT # 11.9 x10^3/uL (1.8-7.7); NEUT % 85 % (31-73); PLATELET COUNT 278 x10^3/uL (140-400); RED BLOOD COUNT 3.95 x10^6/uL (4.30-5.70); WHITE BLOOD COUNT 13.9 x10^3/uL (4.0-11.0)
[2019-03-29 06:10] LABS: CREATININE 0.7 mg/dL (0.7-1.3); GFR 145.6; POTASSIUM 5.4 mmol/L (3.5-5.1)
[2019-03-29] MEDS: IPRATRPIUM/ALBUTEROL 0.5/2.5MG 3 ML NEBU. NEB SCH ×4 (07:40→20:22)
[2019-03-29 08:31] LABS: BASE EXCESS ABG 7 mmol/L (-3-3); HCO3 ABG 32 mmol/L (21-28); PCO2 ABG 46 mmHg (35-46); PO2 ABG 54 mmHg (75-108); SAT O2 ABG 88 % (92-99)
--- NOTE | 2019-03-29 08:37 | RAD ---
Examination portable view chest HISTORY: Regular protocol. DATE OF SERVICE: 03/29/2019. COMPARISON: Single view chest from 03/28/2019. Single AP upright portable view chest findings: Endotracheal tube and feeding tube are in similar position. There is improving Central vascular congestion and airspace and interstitial opacities in both lungs predominantly lower lobes. Small bilateral pleural effusions also appear improved. IMPRESSION: Improving airspace opacities and small pleural effusions. Electronically signed by: Gogo Charlton MD (03/29/2019 8:35 AM) [facility]
[2019-03-29 08:39] LABS: FIO2 ABG 50
[2019-03-29] MEDS: CHLORHEXIDINE 0.12% 15 ML MOUTHWASH. MM SCH ×2 (08:39→21:26)
[2019-03-29] MEDS: ASPIRIN CHEWABLE 81 MG TABLET. PO SCH (08:39)
[2019-03-29] MEDS: FAMOTIDINE 20 MG/2 ML VIAL IVP SCH ×2 (08:39→21:18)
[2019-03-29] MEDS: LISINOPRIL 5 MG TABLET. PO SCH (08:43)
[2019-03-29] MEDS: amLODIPine BESYLATE 10 MG TABLET PO SCH (08:43)
--- NOTE | 2019-03-29 08:56 | PDOC ---
PULMONARY PROGRESS NOTES Subjective Patient with respiratory failure secondary to ARDS from vaping. remains on vent, sedated on fentanyl, versed, and propofol-- Ventilator support decreasing, now on 60% FIO2, 9 of PEEP . Has thick, yellow, occasionally pink endotracheal secretions. These are unchanged by report. remains critically ill but improving slowly Vitals Vital Signs Date Time Temp Pulse Resp B/P (MAP) Pulse Ox O2 Delivery O2 Flow Rate FiO2 03/29/19 08:43 85 173/101 03/29/19 08:15 28 94 Ventilator 03/29/19 05:00 98.0 98.0 03/28/19 13:00 93.0 Comments unable to obtain 2/2 vent/sedation. morbidly obese Lungs: Other (decrease bs) Cardiovascular: S1, S2 Abdomen: Soft, Non-tender, Other (obese) Extremities: Other (lymphedema BLE ) Skin: Warm, Dry Labs Laboratory Tests Test 03/27/19 12:02 03/27/19 18:13 03/28/19 00:06 03/28/19 05:40 Glucose (Fingerstick) 120 mg/dL (70-99) 130 mg/dL (70-99) 107 mg/dL (70-99) 84 mg/dL (70-99) Test 03/28/19 05:53 03/28/19 06:00 03/28/19 08:30 03/28/19 12:18 Glucose (Fingerstick) 76 mg/dL (70-99) 98 mg/dL (70-99) White Blood Count 12.2 x10^3/uL (4.0-11.0) Red Blood Count 4.59 x10^6/uL (4.30-5.70) Hemoglobin 11.0 g/dL (13.0-17.5) Hematocrit 35.6 % (39.0-53.0) Mean Corpuscular Volume 78 fL (79-100) Mean Corpuscular Hemoglobin 24 pg (25-35) Mean Corpuscular Hemoglobin Concent 31 g/dL (31-37) Red Cell Distribution Width 18.9 % (11.5-14.5) Platelet Count 335 x10^3/uL (140-400) Neutrophils (%) (Auto) 85 % (31-73) Lymphocytes (%) (Auto) 8 % (24-48) Monocytes (%) (Auto) 7 % (0-9) Eosinophils (%) (Auto) 0 % (0-3) Basophils (%) (Auto) 0 % (0-3) Neutrophils # (Auto) 10.3 x10^3/uL (1.8-7.7) Lymphocytes # (Auto) 1.0 x10^3/uL (1.0-4.8) Monocytes # (Auto) 0.9 x10^3/uL (0.0-1.1) Eosinophils # (Auto) 0.0 x10^3/uL (0.0-0.7) Basophils # (Auto) 0.0 x10^3/uL (0.0-0.2) Sodium Level 145 mmol/L (136-145) Potassium Level 5.4 mmol/L (3.5-5.1) Chloride Level 108 mmol/L (98-107) Carbon Dioxide Level 34 mmol/L (21-32) Anion Gap 3 (6-14) Blood Urea Nitrogen 61 mg/dL (8-26) Creatinine 0.7 mg/dL (0.7-1.3) Estimated GFR (Cockcroft-Gault) 145.6 Glucose Level 95 mg/dL (70-99) Calcium Level 9.7 mg/dL (8.5-10.1) Triglycerides Level 105 mg/dL (0-150) O2 Saturation 91 % (92-99) Arterial Blood pH 7.48 (7.35-7.45) Arterial Blood pCO2 at Patient Temp 45 mmHg (35-46) Arterial Blood pO2 at Patient Temp 59 mmHg (75-108) Arterial Blood HCO3 33 mmol/L (21-28) Arterial Blood Base Excess 9 mmol/L (-3-3) FiO2 60 Test 03/28/19 17:56 03/29/19 00:23 03/29/19 05:30 03/29/19 05:55 Glucose (Fingerstick) 107 mg/dL (70-99) 94 mg/dL (70-99) 104 mg/dL (70-99) White Blood Count 13.9 x10^3/uL (4.0-11.0) Red Blood Count 3.95 x10^6/uL (4.30-5.70) Hemoglobin 9.7 g/dL (13.0-17.5) Hematocrit 30.8 % (39.0-53.0) Mean Corpuscular Volume 78 fL (79-100) Mean Corpuscular Hemoglobin 25 pg (25-35) Mean Corpuscular Hemoglobin Concent 31 g/dL (31-37) Red Cell Distribution Width 19.0 % (11.5-14.5) Platelet Count 278 x10^3/uL (140-400) Neutrophils (%) (Auto) 85 % (31-73) Lymphocytes (%) (Auto) 6 % (24-48) Monocytes (%) (Auto) 8 % (0-9) Eosinophils (%) (Auto) 0 % (0-3) Basophils (%) (Auto) 0 % (0-3) Neutrophils # (Auto) 11.9 x10^3/uL (1.8-7.7) Lymphocytes # (Auto) 0.9 x10^3/uL (1.0-4.8) Monocytes # (Auto) 1.1 x10^3/uL (0.0-1.1) Eosinophils # (Auto) 0.0 x10^3/uL (0.0-0.7) Basophils # (Auto) 0.0 x10^3/uL (0.0-0.2) Sodium Level 142 mmol/L (136-145) Potassium Level 5.4 mmol/L (3.5-5.1) Chloride Level 106 mmol/L (98-107) Carbon Dioxide Level 32 mmol/L (21-32) Anion Gap 4 (6-14) Blood Urea Nitrogen 57 mg/dL (8-26) Creatinine 0.7 mg/dL (0.7-1.3) Estimated GFR (Cockcroft-Gault) 145.6 Glucose Level 108 mg/dL (70-99) Calcium Level 9.0 mg/dL (8.5-10.1) Test 03/29/19 08:15 O2 Saturation 88 % (92-99) Arterial Blood pH 7.45 (7.35-7.45) Arterial Blood pCO2 at Patient Temp 46 mmHg (35-46) Arterial Blood pO2 at Patient Temp 54 mmHg (75-108) Arterial Blood HCO3 32 mmol/L (21-28) Arterial Blood Base Excess 7 mmol/L (-3-3) FiO2 50 Laboratory Tests Test 03/28/19 12:18 03/28/19 17:56 03/29/19 00:23 03/29/19 05:30 Glucose (Fingerstick) 98 mg/dL (70-99) 107 mg/dL (70-99) 94 mg/dL (70-99) White Blood Count 13.9 x10^3/uL (4.0-11.0) Red Blood Count 3.95 x10^6/uL (4.30-5.70) Hemoglobin 9.7 g/dL (13.0-17.5) Hematocrit 30.8 % (39.0-53.0) Mean Corpuscular Volume 78 fL (79-100) Mean Corpuscular Hemoglobin 25 pg (25-35) Mean Corpuscular Hemoglobin Concent 31 g/dL (31-37) Red Cell Distribution Width 19.0 % (11.5-14.5) Platelet Count 278 x10^3/uL (140-400) Neutrophils (%) (Auto) 85 % (31-73) Lymphocytes (%) (Auto) 6 % (24-48) Monocytes (%) (Auto) 8 % (0-9) Eosinophils (%) (Auto) 0 % (0-3) Basophils (%) (Auto) 0 % (0-3) Neutrophils # (Auto) 11.9 x10^3/uL (1.8-7.7) Lymphocytes # (Auto) 0.9 x10^3/uL (1.0-4.8) Monocytes # (Auto) 1.1 x10^3/uL (0.0-1.1) Eosinophils # (Auto) 0.0 x10^3/uL (0.0-0.7) Basophils # (Auto) 0.0 x10^3/uL (0.0-0.2) Sodium Level 142 mmol/L (136-145) Potassium Level 5.4 mmol/L (3.5-5.1) Chloride Level 106 mmol/L (98-107) Carbon Dioxide Level 32 mmol/L (21-32) Anion Gap 4 (6-14) Blood Urea Nitrogen 57 mg/dL (8-26) Creatinine 0.7 mg/dL (0.7-1.3) Estimated GFR (Cockcroft-Gault) 145.6 Glucose Level 108 mg/dL (70-99) Calcium Level 9.0 mg/dL (8.5-10.1) Test 03/29/19 05:55 03/29/19 08:15 Glucose (Fingerstick) 104 mg/dL (70-99) O2 Saturation 88 % (92-99) Arterial Blood pH 7.45 (7.35-7.45) Arterial Blood pCO2 at Patient Temp 46 mmHg (35-46) Arterial Blood pO2 at Patient Temp 54 mmHg (75-108) Arterial Blood HCO3 32 mmol/L (21-28) Arterial Blood Base Excess 7 mmol/L (-3-3) FiO2 50 Medications Active Scripts Medications Dose Route/Sig Max Daily Dose Days Date Category Hydrochlorothiazide Tablet (Hydrochlorothiazide) 25 Mg Tablet 25 Mg PO DAILY 03/10/19 Reported Norvasc (Amlodipine Besylate) 5 Mg Tablet 1 Tab PO DAILY 01/12/19 Rx Lisinopril 5 Mg Tablet 1 Tab PO DAILY 01/12/19 Rx Comments CXR 03/29 BILATERAL INFILTRATES. improving Impression . 1. Acute hypercarbic/hypoxic respiratory Failure due to ARDS , vaping related,oxygenation slowly improving on 50%, and PEEP of 7 2. Suspected VAP ABX per ID , currently off ABX 3.Hypertension (controlled) 4. Pre-renal Azotemia, improved 5. Pulm. HTN PA pressure 55 Normal EF 6. HX. of tobacco use 7. Morbid obesity Plan . 1. Continue with present assist control mode. Will increase TV which may help his asynchrony which happens when sedation lightens. His TV still will be in low volume/body rate ideal range.. 2. high dose steroids ,initiated 03/16 , dose reduced today, slow taper as tolerated 3. Abx per ID, check all new cultures, off abx at this time 4. Monitor fever and white cell count.overall no further fever 5. Continue bronchodilators. 6. Heparin for DVT prophylaxis 7 azotemia .renal following 8. Remains critically ill, will need tracheostomy and LTACH in future once O2 requirement improves 9. DNR.Continue aggressive supportive care CCM time reviewing case, xrays, examining patient and determining care 40 minutes discussed with RN and RT. We will follow along with you. TANGELA GRIJALVA MD Mar 29, 2019 08:56
[2019-03-29] MEDS ORDERED: FUROSEMIDE 40 MG/4 ML VIAL. IVP ONE (09:30)
[2019-03-29 11:15] LABS: BASE EXCESS ABG 4 mmol/L (-3-3); HCO3 ABG 29 mmol/L (21-28); PCO2 ABG 41 mmHg (35-46); PO2 ABG 60 mmHg (75-108); SAT O2 ABG 91 % (92-99)
[2019-03-29 12:32] LABS: FIO2 ABG 50
--- NOTE | 2019-03-29 16:27 | PDOC ---
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 Increased Troponin Morbid Obesity Pulmonary HTN Tobacco use History of Present Illness History of Present Illness pt seen 0930 hyperkalemia, meds reviewed with pharmacy, will give lasix again, could consider increasing free water 02 flushes to OG in ICU, wean vent if able pulm following Pt is sedated and on ventilation - Vitals Vitals Vital Signs Date Time Temp Pulse Resp B/P (MAP) Pulse Ox O2 Delivery O2 Flow Rate FiO2 03/29/19 15:47 97 Ventilator 03/29/19 13:25 15 03/29/19 13:00 70 103/55 (71) 03/29/19 07:00 97.7 97.7 03/28/19 13:00 93.0 Physical Exam Physical Exam GENERAL: Orally intubated/ sedated - lightly, HEENT: opened eyes Pupils equal, nml conj OGT/ETT NECK: Supple LUNGS: dec bs at bases HEART: S1 and S2, regular. ABDOMEN: Obese, soft, +BS : Ramos in place fecal tube in place EXTREMITIES: Trace edema - MITTS SKIN: Chronic stasis dermatitis on the lower extremity. NEUROLOGIC: Sedated IVS; Old RIJ site clean. RUE - PICC clean General: No acute distress, Other (short neck , Mallampati 4 ON VENT) Heart: Regular rate (SR), Other (distante heart sounds) Lungs: Other (decrease bs) Abdomen: Normal bowel sounds, Soft, No tenderness, No hepatosplenomegaly, No masses Extremities: No clubbing, No cyanosis, No edema, Normal pulses, No tenderness/swelling Skin: No rashes, No breakdown, No significant lesion Labs LABS Laboratory Tests Test 03/28/19 17:56 03/29/19 00:23 03/29/19 05:30 03/29/19 05:55 Glucose (Fingerstick) 107 mg/dL (70-99) 94 mg/dL (70-99) 104 mg/dL (70-99) White Blood Count 13.9 x10^3/uL (4.0-11.0) Red Blood Count 3.95 x10^6/uL (4.30-5.70) Hemoglobin 9.7 g/dL (13.0-17.5) Hematocrit 30.8 % (39.0-53.0) Mean Corpuscular Volume 78 fL (79-100) Mean Corpuscular Hemoglobin 25 pg (25-35) Mean Corpuscular Hemoglobin Concent 31 g/dL (31-37) Red Cell Distribution Width 19.0 % (11.5-14.5) Platelet Count 278 x10^3/uL (140-400) Neutrophils (%) (Auto) 85 % (31-73) Lymphocytes (%) (Auto) 6 % (24-48) Monocytes (%) (Auto) 8 % (0-9) Eosinophils (%) (Auto) 0 % (0-3) Basophils (%) (Auto) 0 % (0-3) Neutrophils # (Auto) 11.9 x10^3/uL (1.8-7.7) Lymphocytes # (Auto) 0.9 x10^3/uL (1.0-4.8) Monocytes # (Auto) 1.1 x10^3/uL (0.0-1.1) Eosinophils # (Auto) 0.0 x10^3/uL (0.0-0.7) Basophils # (Auto) 0.0 x10^3/uL (0.0-0.2) Sodium Level 142 mmol/L (136-145) Potassium Level 5.4 mmol/L (3.5-5.1) Chloride Level 106 mmol/L (98-107) Carbon Dioxide Level 32 mmol/L (21-32) Anion Gap 4 (6-14) Blood Urea Nitrogen 57 mg/dL (8-26) Creatinine 0.7 mg/dL (0.7-1.3) Estimated GFR (Cockcroft-Gault) 145.6 Glucose Level 108 mg/dL (70-99) Calcium Level 9.0 mg/dL (8.5-10.1) Test 03/29/19 08:15 03/29/19 11:05 03/29/19 11:12 O2 Saturation 88 % (92-99) 91 % (92-99) Arterial Blood pH 7.45 (7.35-7.45) 7.47 (7.35-7.45) Arterial Blood pCO2 at Patient Temp 46 mmHg (35-46) 41 mmHg (35-46) Arterial Blood pO2 at Patient Temp 54 mmHg (75-108) 60 mmHg (75-108) Arterial Blood HCO3 32 mmol/L (21-28) 29 mmol/L (21-28) Arterial Blood Base Excess 7 mmol/L (-3-3) 4 mmol/L (-3-3) FiO2 50 50 Glucose (Fingerstick) 110 mg/dL (70-99) Assessment and Plan Assessmemt and Plan Problems Medical Problems: (1) CHF exacerbation Status: Acute (2) COPD exacerbation Status: Acute (3) Hypoxia Status: Acute (4) NSTEMI (non-ST elevated myocardial infarction) Status: Acute (5) Respiratory failure Status: Acute Comment Review of Relevant I have reviewed the following items peter (where applicable) has been applied. Labs Laboratory Tests Test 03/27/19 18:13 03/28/19 00:06 03/28/19 05:40 03/28/19 05:53 Glucose (Fingerstick) 130 mg/dL (70-99) 107 mg/dL (70-99) 84 mg/dL (70-99) 76 mg/dL (70-99) Test 03/28/19 06:00 03/28/19 08:30 03/28/19 12:18 03/28/19 17:56 White Blood Count 12.2 x10^3/uL (4.0-11.0) Red Blood Count 4.59 x10^6/uL (4.30-5.70) Hemoglobin 11.0 g/dL (13.0-17.5) Hematocrit 35.6 % (39.0-53.0) Mean Corpuscular Volume 78 fL (79-100) Mean Corpuscular Hemoglobin 24 pg (25-35) Mean Corpuscular Hemoglobin Concent 31 g/dL (31-37) Red Cell Distribution Width 18.9 % (11.5-14.5) Platelet Count 335 x10^3/uL (140-400) Neutrophils (%) (Auto) 85 % (31-73) Lymphocytes (%) (Auto) 8 % (24-48) Monocytes (%) (Auto) 7 % (0-9) Eosinophils (%) (Auto) 0 % (0-3) Basophils (%) (Auto) 0 % (0-3) Neutrophils # (Auto) 10.3 x10^3/uL (1.8-7.7) Lymphocytes # (Auto) 1.0 x10^3/uL (1.0-4.8) Monocytes # (Auto) 0.9 x10^3/uL (0.0-1.1) Eosinophils # (Auto) 0.0 x10^3/uL (0.0-0.7) Basophils # (Auto) 0.0 x10^3/uL (0.0-0.2) Sodium Level 145 mmol/L (136-145) Potassium Level 5.4 mmol/L (3.5-5.1) Chloride Level 108 mmol/L (98-107) Carbon Dioxide Level 34 mmol/L (21-32) Anion Gap 3 (6-14) Blood Urea Nitrogen 61 mg/dL (8-26) Creatinine 0.7 mg/dL (0.7-1.3) Estimated GFR (Cockcroft-Gault) 145.6 Glucose Level 95 mg/dL (70-99) Calcium Level 9.7 mg/dL (8.5-10.1) Triglycerides Level 105 mg/dL (0-150) O2 Saturation 91 % (92-99) Arterial Blood pH 7.48 (7.35-7.45) Arterial Blood pCO2 at Patient Temp 45 mmHg (35-46) Arterial Blood pO2 at Patient Temp 59 mmHg (75-108) Arterial Blood HCO3 33 mmol/L (21-28) Arterial Blood Base Excess 9 mmol/L (-3-3) FiO2 60 Glucose (Fingerstick) 98 mg/dL (70-99) 107 mg/dL (70-99) Test 03/29/19 00:23 03/29/19 05:30 03/29/19 05:55 03/29/19 08:15 Glucose (Fingerstick) 94 mg/dL (70-99) 104 mg/dL (70-99) White Blood Count 13.9 x10^3/uL (4.0-11.0) Red Blood Count 3.95 x10^6/uL (4.30-5.70) Hemoglobin 9.7 g/dL (13.0-17.5) Hematocrit 30.8 % (39.0-53.0) Mean Corpuscular Volume 78 fL (79-100) Mean Corpuscular Hemoglobin 25 pg (25-35) Mean Corpuscular Hemoglobin Concent 31 g/dL (31-37) Red Cell Distribution Width 19.0 % (11.5-14.5) Platelet Count 278 x10^3/uL (140-400) Neutrophils (%) (Auto) 85 % (31-73) Lymphocytes (%) (Auto) 6 % (24-48) Monocytes (%) (Auto) 8 % (0-9) Eosinophils (%) (Auto) 0 % (0-3) Basophils (%) (Auto) 0 % (0-3) Neutrophils # (Auto) 11.9 x10^3/uL (1.8-7.7) Lymphocytes # (Auto) 0.9 x10^3/uL (1.0-4.8) Monocytes # (Auto) 1.1 x10^3/uL (0.0-1.1) Eosinophils # (Auto) 0.0 x10^3/uL (0.0-0.7) Basophils # (Auto) 0.0 x10^3/uL (0.0-0.2) Sodium Level 142 mmol/L (136-145) Potassium Level 5.4 mmol/L (3.5-5.1) Chloride Level 106 mmol/L (98-107) Carbon Dioxide Level 32 mmol/L (21-32) Anion Gap 4 (6-14) Blood Urea Nitrogen 57 mg/dL (8-26) Creatinine 0.7 mg/dL (0.7-1.3) Estimated GFR (Cockcroft-Gault) 145.6 Glucose Level 108 mg/dL (70-99) Calcium Level 9.0 mg/dL (8.5-10.1) O2 Saturation 88 % (92-99) Arterial Blood pH 7.45 (7.35-7.45) Arterial Blood pCO2 at Patient Temp 46 mmHg (35-46) Arterial Blood pO2 at Patient Temp 54 mmHg (75-108) Arterial Blood HCO3 32 mmol/L (21-28) Arterial Blood Base Excess 7 mmol/L (-3-3) FiO2 50 Test 03/29/19 11:05 03/29/19 11:12 O2 Saturation 91 % (92-99) Arterial Blood pH 7.47 (7.35-7.45) Arterial Blood pCO2 at Patient Temp 41 mmHg (35-46) Arterial Blood pO2 at Patient Temp 60 mmHg (75-108) Arterial Blood HCO3 29 mmol/L (21-28) Arterial Blood Base Excess 4 mmol/L (-3-3) FiO2 50 Glucose (Fingerstick) 110 mg/dL (70-99) Laboratory Tests Test 03/28/19 17:56 03/29/19 00:23 03/29/19 05:30 03/29/19 05:55 Glucose (Fingerstick) 107 mg/dL (70-99) 94 mg/dL (70-99) 104 mg/dL (70-99) White Blood Count 13.9 x10^3/uL (4.0-11.0) Red Blood Count 3.95 x10^6/uL (4.30-5.70) Hemoglobin 9.7 g/dL (13.0-17.5) Hematocrit 30.8 % (39.0-53.0) Mean Corpuscular Volume 78 fL (79-100) Mean Corpuscular Hemoglobin 25 pg (25-35) Mean Corpuscular Hemoglobin Concent 31 g/dL (31-37) Red Cell Distribution Width 19.0 % (11.5-14.5) Platelet Count 278 x10^3/uL (140-400) Neutrophils (%) (Auto) 85 % (31-73) Lymphocytes (%) (Auto) 6 % (24-48) Monocytes (%) (Auto) 8 % (0-9) Eosinophils (%) (Auto) 0 % (0-3) Basophils (%) (Auto) 0 % (0-3) Neutrophils # (Auto) 11.9 x10^3/uL (1.8-7.7) Lymphocytes # (Auto) 0.9 x10^3/uL (1.0-4.8) Monocytes # (Auto) 1.1 x10^3/uL (0.0-1.1) Eosinophils # (Auto) 0.0 x10^3/uL (0.0-0.7) Basophils # (Auto) 0.0 x10^3/uL (0.0-0.2) Sodium Level 142 mmol/L (136-145) Potassium Level 5.4 mmol/L (3.5-5.1) Chloride Level 106 mmol/L (98-107) Carbon Dioxide Level 32 mmol/L (21-32) Anion Gap 4 (6-14) Blood Urea Nitrogen 57 mg/dL (8-26) Creatinine 0.7 mg/dL (0.7-1.3) Estimated GFR (Cockcroft-Gault) 145.6 Glucose Level 108 mg/dL (70-99) Calcium Level 9.0 mg/dL (8.5-10.1) Test 03/29/19 08:15 03/29/19 11:05 03/29/19 11:12 O2 Saturation 88 % (92-99) 91 % (92-99) Arterial Blood pH 7.45 (7.35-7.45) 7.47 (7.35-7.45) Arterial Blood pCO2 at Patient Temp 46 mmHg (35-46) 41 mmHg (35-46) Arterial Blood pO2 at Patient Temp 54 mmHg (75-108) 60 mmHg (75-108) Arterial Blood HCO3 32 mmol/L (21-28) 29 mmol/L (21-28) Arterial Blood Base Excess 7 mmol/L (-3-3) 4 mmol/L (-3-3) FiO2 50 50 Glucose (Fingerstick) 110 mg/dL (70-99) Microbiology 03/16/19 - Final, Complete 03/16/19 - Final, Complete 03/16/19 Gram Stain Evaluation - Final, Complete 03/16/19 Sputum Culture - Final, Complete 03/16/19 Sputum Result 1 - Final, Complete 03/16/19 Blood Culture - Final, Complete NO GROWTH AFTER 5 DAYS 03/09/19 Urine Culture - Final, Complete 03/09/19 Urine Culture Result 1 (WIL) - Final, Complete Medications Current Medications Albuterol/ Ipratropium (Duoneb) 3 ml 1X ONCE NEB Last administered on 03/09/19at 21:21; Start 03/09/19 at 21:30; Stop 03/09/19 at 21:31; Status DC Dexamethasone Sodium Phosphate (Decadron) 10 mg 1X ONCE IV Last administered on 03/09/19at 22:29; Start 03/09/19 at 22:00; Stop 03/09/19 at 22:01; Status DC Propofol 100 ml @ 0 mls/hr CONT PRN IV SEE PROTOCOL Last administered on 03/10/19at 07:19; Start 03/09/19 at 22:30; Stop 03/10/19 at 07:28; Status DC Fentanyl Citrate (Fentanyl 2ml Vial) 50 mcg PRN Q1HR PRN IV SEE COMMENTS; Start 03/09/19 at 22:30; Stop 03/10/19 at 07:28; Status DC Chlorhexidine Gluconate (Peridex) 15 ml BID MM Last administered on 03/29/19at 08:43; Start 03/10/19 at 09:00 Famotidine (Pepcid Vial) 20 mg BID IVP Last administered on 03/29/19at 08:43; Start 03/10/19 at 09:00 Propofol 50 ml @ As Directed STK-MED ONCE IV ; Start 03/09/19 at 22:28; Stop 03/09/19 at 22:28; Status DC Albuterol/ Ipratropium (Duoneb) 3 ml 1X ONCE NEB Last administered on 03/10/19at 02:04; Start 03/09/19 at 23:00; Stop 03/09/19 at 23:01; Status DC Albuterol/ Ipratropium (Duoneb) 3 ml 1X ONCE NEB Last administered on 03/10/19at 02:04; Start 03/09/19 at 23:00; Stop 03/09/19 at 23:01; Status DC Fentanyl Citrate (Fentanyl 2ml Vial) 100 mcg 1X ONCE IV Last administered on 03/09/19at 23:31; Start 03/09/19 at 23:30; Stop 03/09/19 at 23:31; Status DC Bumetanide (Bumex) 1 mg 1X ONCE IV Last administered on 03/10/19at 00:21; Start 03/10/19 at 00:00; Stop 03/10/19 at 00:01; Status DC Heparin Sodium (Porcine) (Heparin Sodium) 4,000 unit 1X ONCE IV Last administered on 03/10/19at 00:31; Start 03/10/19 at 00:00; Stop 03/10/19 at 00:01; Status DC Heparin Sodium/ Dextrose 500 ml @ 0 mls/hr CONT PRN IV PER PROTOCOL Last administered on 03/10/19at 23:34; Start 03/09/19 at 23:45; Stop 03/11/19 at 16:13; Status DC Heparin Sodium (Porcine) (Heparin Sodium) 5,500 unit PRN Q6HRS PRN IV FOR UFH LEVEL LESS THAN 0.2 Last administered on 03/11/19at 00:57; Start 03/09/19 at 23:45; Stop 03/11/19 at 16:13; Status DC Aspirin (Aspirin Rectal Supp) 300 mg 1X ONCE [place] Last administered on 03/10/19at 03:42; Start 03/10/19 at 00:00; Stop 03/10/19 at 00:01; Status DC Propofol 50 ml @ As Directed STK-MED ONCE IV ; Start 03/09/19 at 23:38; Stop 03/09/19 at 23:38; Status DC Propofol 50 ml @ As Directed STK-MED ONCE IV ; Start 03/09/19 at 23:38; Stop 03/09/19 at 23:38; Status DC Piperacillin Sod/ Tazobactam Sod 4.5 gm/Sodium Chloride 100 ml @ 200 mls/hr 1X ONCE IV Last administered on 03/10/19at 05:19; Start 03/10/19 at 00:30; Stop 03/10/19 at 00:59; Status DC Propofol 50 ml @ As Directed STK-MED ONCE IV ; Start 03/10/19 at 00:51; Stop 03/10/19 at 00:51; Status DC Propofol 50 ml @ As Directed STK-MED ONCE IV ; Start 03/10/19 at 01:14; Stop 03/10/19 at 01:15; Status DC Fentanyl Citrate (Fentanyl 2ml Vial) 100 mcg 1X ONCE IV Last administered on 03/10/19at 01:26; Start 03/10/19 at 01:45; Stop 03/10/19 at 01:46; Status DC Clonidine HCl (Catapres) 0.1 mg 1X ONCE PO ; Start 03/10/19 at 01:30; Stop 03/10/19 at 01:34; Status DC Midazolam HCl (Versed) 5 mg 1X ONCE IV Last administered on 03/10/19at 01:28; Start 03/10/19 at 01:30; Stop 03/10/19 at 01:34; Status DC Propofol 50 ml @ As Directed STK-MED ONCE IV ; Start 03/10/19 at 02:08; Stop 03/10/19 at 02:09; Status DC Propofol 50 ml @ As Directed STK-MED ONCE IV ; Start 03/10/19 at 02:36; Stop 03/10/19 at 02:36; Status DC Rocuronium Raven (Zemuron) 50 mg STK-MED ONCE .ROUTE ; Start 03/10/19 at 05:15; Stop 03/10/19 at 05:15; Status DC Etomidate (Amidate) 20 mg STK-MED ONCE IV ; Start 03/10/19 at 05:15; Stop 03/10/19 at 05:16; Status DC Fentanyl Citrate 30 ml @ 0 mls/hr CONT PRN IV SEE PROTOCOL Last administered on 03/29/19at 13:25; Start 03/10/19 at 07:30 Propofol 100 ml @ 0 mls/hr CONT PRN IV SEE PROTOCOL Last administered on 03/29/19at 15:08; Start 03/10/19 at 07:30 Fentanyl Citrate (Fentanyl 2ml Vial) 25 mcg PRN Q1HR PRN IV SEE COMMENTS; Start 03/10/19 at 07:30 Fentanyl Citrate (Fentanyl 2ml Vial) 50 mcg PRN Q1HR PRN IV SEE COMMENTS; Start 03/10/19 at 07:30 Artificial Tears (Artificial Tears) 1 drop PRN Q1HR PRN OU DRY EYE, 1ST CHOICE Last administered on 03/13/19at 13:32; Start 03/10/19 at 07:30 Famotidine (Pepcid Vial) 20 mg BID IVP ; Start 03/10/19 at 09:00; Status UNV Morphine Sulfate (Morphine Sulfate) 2 mg PRN Q1HR PRN IV SEE COMMENTS. Last administered on 03/25/19at 09:18; Start 03/10/19 at 07:30 Morphine Sulfate (Morphine Sulfate) 4 mg PRN Q1HR PRN IV SEE COMMENTS.; Start 03/10/19 at 07:30 Midazolam HCl 100 ml @ 0 mls/hr CONT PRN IV SEE PROTOCOL Last administered on 03/29/19at 13:25; Start 03/10/19 at 07:30 Levofloxacin/ Dextrose (Levaquin Per Pharmacy) 1 each PRN DAILY PRN MC SEE COMMENTS; Start 03/10/19 at 08:15; Stop 03/14/19 at 09:25; Status DC Albuterol/ Ipratropium (Duoneb) 3 ml RTQID NEB Last administered on 03/29/19at 15:52; Start 03/10/19 at 12:00 Sodium Chloride 1,000 ml @ 100 mls/hr Q10H IV Last administered on 03/10/19at 23:34; Start 03/10/19 at 08:15; Stop 03/11/19 at 16:02; Status DC Amlodipine Besylate (Norvasc) 5 mg DAILY PO Last administered on 03/10/19at 09:13; Start 03/10/19 at 09:00; Stop 03/10/19 at 10:04; Status DC Hydrochlorothiazide (Hydrodiuril) 25 mg DAILY PO Last administered on 03/10/19at 09:13; Start 03/10/19 at 09:00; Stop 03/10/19 at 10:04; Status DC Lisinopril (Prinivil) 5 mg DAILY PO Last administered on 03/10/19at 09:13; Start 03/10/19 at 09:00; Stop 03/10/19 at 10:04; Status DC Levofloxacin/ Dextrose 100 ml @ 100 mls/hr Q24H IV Last administered on 03/14/19at 08:10; Start 03/10/19 at 09:00; Stop 03/14/19 at 09:25; Status DC Aspirin (Amanda Aspirin) 325 mg 1X ONCE PO Last administered on 03/10/19at 10:55; Start 03/10/19 at 10:30; Stop 03/10/19 at 10:31; Status DC Aspirin (Children'S Aspirin) 81 mg DAILYWBKFT PO Last administered on 03/29/19at 08:43; Start 03/11/19 at 08:00 Amlodipine Besylate (Norvasc) 10 mg DAILY PO Last administered on 03/11/19at 09:37; Start 03/11/19 at 09:00; Stop 03/11/19 at 12:50; Status DC Hydralazine HCl (Apresoline Inj) 10 mg PRN Q4HRS PRN IVP ELEVATED BP, SEE COMMENTS; Start 03/10/19 at 10:15; Stop 03/12/19 at 09:37; Status DC Furosemide (Lasix) 40 mg DAILY IVP Last administered on 03/11/19at 09:37; Start 03/10/19 at 11:00; Stop 03/11/19 at 11:24; Status DC Insulin Human Lispro (HumaLOG) 0-9 UNITS TIDWMEALS SQ ; Start 03/10/19 at 12:00; Stop 03/10/19 at 17:57; Status DC Dextrose (Dextrose 50%-Water Syringe) 12.5 gm PRN Q15MIN PRN IV SEE COMMENTS; Start 03/10/19 at 11:15; Stop 03/12/19 at 16:47; Status DC Dextrose 250 ml PRN Q15MIN PRN IV SEE COMMENTS; Start 03/10/19 at 11:15; Stop 03/10/19 at 11:05; Status DC Iohexol (Omnipaque 350 Mg/ml) 100 ml 1X ONCE IV Last administered on 03/10/19at 14:05; Start 03/10/19 at 11:45; Stop 03/10/19 at 11:47; Status DC Info (CONTRAST GIVEN -- Rx MONITORING) 1 each PRN DAILY PRN MC SEE COMMENTS; Start 03/10/19 at 11:45; Stop 03/12/19 at 11:44; Status DC Piperacillin Sod/ Tazobactam Sod (Zosyn Per Pharmacy) 1 each PRN DAILY PRN MC SEE COMMENTS; Start 03/10/19 at 11:45; Stop 03/25/19 at 08:36; Status DC Vancomycin HCl (Vanco Per Pharmacy) 1 each PRN DAILY PRN MC SEE COMMENTS Last administered on 03/11/19at 09:42; Start 03/10/19 at 11:45; Stop 03/11/19 at 13:57; Status DC Vancomycin HCl 2 gm/Sodium Chloride 500 ml @ 250 mls/hr 1X ONCE IV Last administered on 03/10/19at 12:41; Start 03/10/19 at 13:00; Stop 03/10/19 at 14:59; Status DC Piperacillin Sod/ Tazobactam Sod 3.375 gm/Sodium Chloride 50 ml @ 100 mls/hr Q6HRS IV Last administered on 03/24/19at 05:45; Start 03/10/19 at 12:30; Stop 03/24/19 at 07:24; Status DC Vancomycin HCl 1.75 gm/Sodium Chloride 500 ml @ 250 mls/hr Q12H IV Last administered on 03/11/19at 12:43; Start 03/11/19 at 01:00; Stop 03/11/19 at 13:57; Status DC Vancomycin HCl (Vancomycin Trough Level) 1 each 1X ONCE MC ; Start 03/12/19 at 12:30; Stop 03/12/19 at 12:31; Status Cancel Insulin Human Lispro (HumaLOG) 0-9 UNITS Q6HRS SQ ; Start 03/11/19 at 00:00; Stop 03/27/19 at 09:06; Status DC Magnesium Sulfate/ Dextrose 100 ml @ 50 mls/hr DAILY IV Last administered on 03/11/19at 09:28; Start 03/11/19 at 09:00; Stop 03/14/19 at 08:59; Status DC Potassium Phosphate 27.2 mmol/Sodium Chloride 259.0667 ml @ 64.753 m... 1X ONCE IV Last administered on 03/11/19at 09:28; Start 03/11/19 at 10:00; Stop 03/11/19 at 14:00; Status DC Potassium Phosphate 27.2 mmol/Sodium Chloride 259.0667 ml @ 64.753 m... 1X ONCE IV ; Start 03/11/19 at 14:00; Stop 03/11/19 at 18:00; Status DC Lorazepam (Ativan Inj) 1 mg PRN Q1HR PRN IV ANXIETY Last administered on 03/14/19at 16:32; Start 03/11/19 at 11:00; Stop 03/19/19 at 10:31; Status DC Sodium Chloride 1,000 ml @ 1,000 mls/hr 1X ONCE IV Last administered on 03/11/19at 12:06; Start 03/11/19 at 11:30; Stop 03/11/19 at 12:29; Status DC Norepinephrine Bitartrate 250 ml @ 27.837 mls/ hr CONT PRN IV SEE I/O RECORD Last administered on 03/13/19at 04:13; Start 03/11/19 at 13:00; Stop 03/26/19 at 09:22; Status DC Hydralazine HCl (Apresoline Inj) 10 mg PRN Q4HRS PRN IVP ELEVATED BP, SEE COMMENTS Last administered on 03/22/19at 06:13; Start 03/11/19 at 13:00 Linezolid/Dextrose 300 ml @ 300 mls/hr Q12HR IV Last administered on 03/22/19at 21:38; Start 03/11/19 at 21:00; Stop 03/23/19 at 07:48; Status DC Potassium Chloride/Water 50 ml @ 50 mls/hr Q1H IV Last administered on 03/11/19at 17:28; Start 03/11/19 at 16:00; Stop 03/11/19 at 17:59; Status DC Heparin Sodium (Porcine) (Heparin Sodium) 5,000 unit Q8HRS SQ Last administered on 03/29/19at 15:08; Start 03/11/19 at 22:00 Multi-Ingred Cream/Lotion/Oil/ Oint (Artificial Tears Eye Ointment) 1 zuri PRN Q1HR PRN OU DRY EYE; Start 03/12/19 at 09:00 Potassium Chloride/Water 50 ml @ 50 mls/hr 1X ONCE IV Last administered on 03/12/19at 09:44; Start 03/12/19 at 10:00; Stop 03/12/19 at 10:59; Status DC Potassium Chloride/Water 50 ml @ 50 mls/hr 1X ONCE IV ; Start 03/12/19 at 10:30; Stop 03/12/19 at 11:31; Status DC Insulin Human Lispro (HumaLOG) 0-9 UNITS TIDWMEALS SQ ; Start 03/12/19 at 17:00; Stop 03/12/19 at 16:24; Status DC Dextrose (Dextrose 50%-Water Syringe) 12.5 gm PRN Q15MIN PRN IV SEE COMMENTS; Start 03/12/19 at 16:15 Dextrose 250 ml PRN Q15MIN PRN IV SEE COMMENTS; Start 03/12/19 at 16:15; Stop 03/27/19 at 08:59; Status DC Insulin Human Lispro (HumaLOG) 0-9 UNITS Q6HRS SQ Last administered on 03/26/19at 00:37; Start 03/12/19 at 18:00 Dexmedetomidine HCl 400 mcg/ Sodium Chloride 100 ml @ 0 mls/hr CONT PRN IV ANXIETY / AGITATION Last administered on 03/21/19at 04:33; Start 03/12/19 at 20:30; Stop 03/26/19 at 09:22; Status DC Sodium Chloride 500 ml @ 500 mls/hr 1X PRN PRN IV see comments Last administered on 03/12/19at 23:22; Start 03/12/19 at 20:30 Atropine Sulfate (ATROPINE 0.5mg SYRINGE) 0.5 mg PRN Q5MIN PRN IV SEE COMMENTS; Start 03/12/19 at 20:30 Vecuronium Raven (Norcuron Bolus) 10 mg PRN Q1HR PRN IV ON VENT/RESP FAILURE Last administered on 03/25/19at 10:49; Start 03/13/19 at 07:30 Perflutren Protein Type A Microsphe (Optison) 0.66 mg STK-MED ONCE IV ; Start 03/13/19 at 09:08; Stop 03/13/19 at 09:08; Status DC Perflutren Protein Type A Microsphe (Optison) 0.66 mg 1X ONCE IV Last administered on 03/13/19at 09:40; Start 03/13/19 at 09:15; Stop 03/13/19 at 09:16; Status DC Furosemide (Lasix) 40 mg 1X ONCE IVP Last administered on 03/13/19at 13:32; Start 03/13/19 at 10:30; Stop 03/13/19 at 10:31; Status DC Daptomycin 1320 mg/Sodium Chloride 50 ml @ 100 mls/hr ONCE ONCE IV Last administered on 03/15/19at 13:53; Start 03/15/19 at 13:00; Stop 03/16/19 at 09:33; Status DC Daptomycin 1340 mg/Sodium Chloride 50 ml @ 100 mls/hr Q24H IV ; Start 03/16/19 at 08:45; Status UNV Daptomycin 1340 mg/Sodium Chloride 50 ml @ 100 mls/hr Q24H IV ; Start 03/16/19 at 09:00; Status Cancel Daptomycin 830 mg/ Sodium Chloride 50 ml @ 100 mls/hr Q24H IV Last administered on 03/18/19at 15:03; Start 03/16/19 at 14:00; Stop 03/19/19 at 07:41; Status DC Methylprednisolone Sodium Succinate (SOLU-Medrol 125MG VIAL) 100 mg Q8HRS IV Last administered on 03/23/19at 05:54; Start 03/16/19 at 12:00; Stop 03/23/19 at 12:03; Status DC Furosemide (Lasix) 40 mg 1X ONCE IVP Last administered on 03/16/19at 16:46; Start 03/16/19 at 16:30; Stop 03/16/19 at 16:31; Status DC Fentanyl Citrate (Fentanyl 600 Mcg/30 ml [employer]) 600 mcg STK-MED ONCE IV ; Start 03/13/19 at 17:00; Stop 03/17/19 at 11:02; Status DC Furosemide 100 mg/ Sodium Chloride 100 ml @ 5 mls/hr CONT PRN IV SEE I/O RECORD Last administered on 03/18/19at 00:20; Start 03/17/19 at 15:45; Stop 03/18/19 at 10:36; Status DC Furosemide 100 mg/ Sodium Chloride 100 ml @ 5 mls/hr CONT PRN IV SEE I/O RECORD Last administered on 03/21/19at 08:34; Start 03/18/19 at 10:45; Stop 03/21/19 at 12:57; Status DC Lorazepam (Ativan Inj) 2 mg PRN Q1HR PRN IV ANXIETY Last administered on 03/20/19at 17:11; Start 03/19/19 at 10:45 Lisinopril (Prinivil) 5 mg DAILY PO Last administered on 03/29/19at 08:43; Start 03/21/19 at 11:30 Amlodipine Besylate (Norvasc) 10 mg DAILY PO Last administered on 03/29/19 08:43; Start 03/21/19 at 11:30 Furosemide 100 mg/ Sodium Chloride 100 ml @ 10 mls/hr CONT PRN IV SEE I/O RECORD Last administered on 03/22/19at 05:05; Start 03/21/19 at 16:00; Stop 03/22/19 at 12:39; Status DC Scopolamine (Transderm-Scop) 1 patch Q3DAYS TD Last administered on 03/28/19at 08:16; Start 03/22/19 at 11:00 Furosemide 100 mg/ Sodium Chloride 100 ml @ 5 mls/hr CONT PRN IV SEE I/O RECORD Last administered on 03/22/19at 21:38; Start 03/22/19 at 12:45; Stop 03/23/19 at 17:48; Status DC Methylprednisolone Sodium Succinate (SOLU-Medrol 125MG VIAL) 50 mg Q8HRS IV Last administered on 03/27/19at 05:30; Start 03/23/19 at 14:00; Stop 03/27/19 at 11:20; Status DC Insulin Human Lispro (HumaLOG) 0-5 UNITS TIDWMEALS SQ ; Start 03/27/19 at 09:30; Status Cancel Dextrose (Dextrose 50%-Water Syringe) 12.5 gm PRN Q15MIN PRN IV SEE COMMENTS; Start 03/27/19 at 09:00; Status Cancel Dextrose 250 ml PRN Q15MIN PRN IV SEE COMMENTS; Start 03/27/19 at 09:00; Status Cancel Methylprednisolone Sodium Succinate (SOLU-Medrol 40MG VIAL) 30 mg Q8HRS IV Last administered on 03/29/19at 15:08; Start 03/27/19 at 14:00 Furosemide (Lasix) 40 mg 1X ONCE IVP Last administered on 03/27/19at 11:58; Start 03/27/19 at 12:00; Stop 03/27/19 at 12:01; Status DC Furosemide (Lasix) 40 mg 1X ONCE IVP Last administered on 03/28/19at 10:15; Start 03/28/19 at 09:30; Stop 03/28/19 at 09:46; Status DC Furosemide (Lasix) 40 mg 1X ONCE IVP Last administered on 03/29/19at 09:44; Start 03/29/19 at 09:30; Stop 03/29/19 at 09:31; Status DC Active Scripts Active Norvasc (Amlodipine Besylate) 5 Mg Tablet 1 Tab PO DAILY Lisinopril 5 Mg Tablet 1 Tab PO DAILY Reported Hydrochlorothiazide Tablet (Hydrochlorothiazide) 25 Mg Tablet 25 Mg PO DAILY Vitals/I & O Vital Sign - Last 24 Hours 03/28/19 03/28/19 03/28/19 03/28/19 17:00 17:14 18:00 19:00 Pulse 94 90 91 Resp 22 23 21 B/P (MAP) 131/85 (100) 150/93 (112) 153/89 (110) Pulse Ox 95 96 97 97 O2 Delivery Ventilator Ventilator Ventilator Ventilator 03/28/19 03/28/19 03/28/19 03/28/19 20:00 20:00 20:29 20:43 Temp 98.2 98.2 Pulse 68 Resp 18 B/P (MAP) 100/71 (81) Pulse Ox 98 98 O2 Delivery Ventilator Mechanical Ventilator Ventilator Ventilator 03/28/19 03/28/19 03/28/19 03/28/19 21:00 21:01 22:00 23:00 Pulse 84 77 68 Resp 17 16 18 B/P (MAP) 141/81 (101) 104/60 (75) 120/59 (79) Pulse Ox 98 98 94 O2 Delivery Ventilator Ventilator Ventilator Ventilator 03/29/19 03/29/19 03/29/19 03/29/19 00:00 00:00 00:35 01:00 Temp 98.1 98.1 Pulse 73 71 Resp 18 16 B/P (MAP) 113/63 (80) 98/56 (70) Pulse Ox 97 98 98 O2 Delivery Mechanical Ventilator Ventilator Ventilator Ventilator 03/29/19 03/29/19 03/29/19 03/29/19 02:00 02:07 02:27 03:00 Pulse 70 76 Resp 18 21 B/P (MAP) 113/65 (81) 120/74 (89) Pulse Ox 96 98 96 O2 Delivery Ventilator Ventilator Ventilator Ventilator 03/29/19 03/29/19 03/29/19 03/29/19 03:24 04:00 04:00 04:17 Temp 98.0 98.0 Pulse 72 Resp 20 B/P (MAP) 154/81 (105) Pulse Ox 96 98 O2 Delivery Ventilator Ventilator Mechanical Ventilator Ventilator 03/29/19 03/29/19 03/29/19 03/29/19 05:00 06:09 07:00 07:41 Temp 98.0 97.7 98.0 97.7 Pulse 66 74 62 Resp 17 20 22 B/P (MAP) 92/56 (68) 113/71 (85) 101/56 (71) Pulse Ox 97 96 97 95 O2 Delivery Ventilator Ventilator Ventilator Ventilator 03/29/19 03/29/19 03/29/19 03/29/19 08:00 08:00 08:15 08:43 Pulse 80 84 Resp 26 28 B/P (MAP) 106/93 (97) 173/101 Pulse Ox 95 94 O2 Delivery Ventilator Mechanical Ventilator Ventilator 03/29/19 03/29/19 03/29/19 03/29/19 08:43 09:00 09:03 10:00 Pulse 85 85 86 Resp 28 24 B/P (MAP) 173/101 175/98 (123) 168/82 (110) Pulse Ox 94 93 93 O2 Delivery Ventilator Ventilator Ventilator 03/29/19 03/29/19 03/29/19 03/29/19 10:24 11:00 11:07 12:00 Pulse 83 Resp 32 16 B/P (MAP) 109/63 (78) Pulse Ox 94 97 96 O2 Delivery Ventilator Ventilator Ventilator Mechanical Ventilator 03/29/19 03/29/19 03/29/19 03/29/19 12:00 13:00 13:20 13:25 Pulse 82 70 Resp 21 24 15 B/P (MAP) 136/92 (107) 103/55 (71) Pulse Ox 98 98 97 98 O2 Delivery Ventilator Ventilator Ventilator Ventilator 03/29/19 15:47 Pulse Ox 97 O2 Delivery Ventilator Intake and Output 03/28/19 03/28/19 03/29/19 15:00 23:00 07:00 Intake Total 400 ml 2228.17 ml 2743.2 ml Output Total 3200 ml 1910 ml 1215 ml Balance -2800 ml 318.17 ml 1528.2 ml ERROL CASILLAS MD Mar 29, 2019 16:27
[2019-03-29] MEDS ORDERED: IV NORMAL SALINE 1000ML BAG 1,000 ML IV ONE (20:30)
[2019-03-29] MEDS ORDERED: NOREPINEPHRIN 8MG/250ML PREMIX 250 ML IV PRN (20:30)
--- NOTE | 2019-03-29 20:47 | NUR ---
BP 73/49 Dr Infante paged. Obtained order for 1l NS bolus, if that doesn't raise BP may start levophed
[2019-03-30] VITALS (24 sets, daily range): BP systolic 110–181; BP diastolic 56–96
[2019-03-30] MEDS: PROPOFOL 100 ML IV PRN ×13 (00:17→22:36)
[2019-03-30] MEDS: MIDAZOLAM 100mg/100ml NS BAG 100 ML IV PRN ×2 (03:52→14:32)
[2019-03-30] MEDS: methylPREDNISolone SOD SUCC PF 40 MG/ML VIAL. IV SCH ×3 (05:46→21:46)
[2019-03-30] MEDS: HEPARIN for SUB-Q USE 5,000 UNIT/ML VIAL. SQ SCH ×3 (05:48→21:47)
[2019-03-30] MEDS: INSULIN LISPRO 300 UNITS/3 ML VIAL. SQ SCH ×5 (06:00→23:57)
[2019-03-30 06:26] LABS: ALBUMIN 2.5 g/dL (3.4-5.0); ALBUMIN/GLOBULIN RATIO 0.7 (1.0-1.7); CALCIUM 8.3 mg/dL (8.5-10.1); CREATININE 0.7 mg/dL (0.7-1.3); GFR 145.6; TOTAL BILIRUBIN 1.3 mg/dL (0.2-1.0)
[2019-03-30 06:30] LABS: BASO # 0.1 x10^3/uL (0.0-0.2); BASO % 0 % (0-3); EOS % 0 % (0-3); HEMATOCRIT 32.5 % (39.0-53.0); LYMPH # 1.3 x10^3/uL (1.0-4.8); LYMPH % 8 % (24-48); MEAN CORPUSCULAR HEMOGLOBIN 26 pg (25-35); MEAN CORPUSCULAR HGB CONC 34 g/dL (31-37); MEAN CORPUSCULAR VOLUME 77 fL (79-100); MONO # 1.4 x10^3/uL (0.0-1.1); MONO % 9 % (0-9); NEUT # 13.2 x10^3/uL (1.8-7.7); NEUT % 82 % (31-73); PLATELET COUNT 316 x10^3/uL (140-400); RED BLOOD COUNT 4.21 x10^6/uL (4.30-5.70); RED CELL DISTRIBUTION WIDTH 18.8 % (11.5-14.5); WHITE BLOOD COUNT 16.1 x10^3/uL (4.0-11.0)
[2019-03-30] MEDS: IPRATRPIUM/ALBUTEROL 0.5/2.5MG 3 ML NEBU. NEB SCH ×4 (07:49→19:16)
[2019-03-30 08:15] LABS: BASE EXCESS ABG 4 mmol/L (-3-3); HCO3 ABG 28 mmol/L (21-28); PCO2 ABG 42 mmHg (35-46); PO2 ABG 66 mmHg (75-108); SAT O2 ABG 92 % (92-99)
--- NOTE | 2019-03-30 08:38 | RAD ---
CHEST AP ONLY Clinical indications: Intubation. Follow-up study. COMPARISON: March 29, 2019. FINDINGS: ET tube is unchanged in position. NG tube is visualized and the tip cannot be seen in this study. Right upper extremity PICC line tip is seen within the lower SVC at the junction with the right atrium. No pneumothorax is seen. There is nonvisualization of the medial aspect of the right hemidiaphragm in today's study consistent with worsening atelectasis or infiltrate within the medial right lung base. Small left-sided pleural effusion and associated left lung base infiltrate or atelectasis is unchanged. The heart size and mediastinum are stable. Impression: Worsening medial right lung base infiltrate or atelectasis. Stable small left-sided pleural effusion and associated left lung base infiltrate or atelectasis. NG tube tip cannot be seen in this study. Electronically signed by: Giacomo Croft MD (03/30/2019 8:35 AM) [id number]
[2019-03-30] MEDS: amLODIPine BESYLATE 10 MG TABLET PO SCH (09:09)
[2019-03-30] MEDS: ASPIRIN CHEWABLE 81 MG TABLET. PO SCH (09:09)
[2019-03-30] MEDS: LISINOPRIL 5 MG TABLET. PO SCH (09:10)
[2019-03-30] MEDS: FAMOTIDINE 20 MG/2 ML VIAL IVP SCH ×2 (09:10→21:06)
[2019-03-30] MEDS: CHLORHEXIDINE 0.12% 15 ML MOUTHWASH. MM SCH ×2 (09:10→21:05)
[2019-03-30 09:11] LABS: FIO2 ABG 50
--- NOTE | 2019-03-30 10:01 | PDOC ---
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 ARDS, respiratory failure, COPD Morbid obesity Sepsis Acute renal failure Plan Continue current management No need for anticonvulsants Subjective none Objective Vital Signs Date Time Temp Pulse Resp B/P (MAP) Pulse Ox O2 Delivery O2 Flow Rate FiO2 03/30/19 09:11 74 111/64 03/30/19 07:50 97 Ventilator 03/30/19 06:01 20 03/30/19 04:04 93.0 03/30/19 03:59 98.4 98.4 Intake and Output 03/30/19 07:00 Intake Total 5308.18 ml Output Total 4730 ml Balance 578.18 ml IV Total 2471.18 ml Tube Feeding 2257 ml Blood Product IV Normal Saline Flush 580 ml Output Urine Total 4730 ml PHYSICAL EXAM Sedated on ventilator, squeezes eyes shut when I try to assess pupils, averts face, does not follow commands PERRL EOMI CN: no focal findings. Muscle tone: normal. Muscle strength: moves all extremities DTR: 1+ Plantar reflex: silent Gait: not examined in bed. Sensory exam: no abnormal findings. No cerebellar signs elicited. Review of Relevant I have reviewed the following items peter (where applicable) has been applied. Labs Laboratory Tests Test 03/28/19 12:18 03/28/19 17:56 03/29/19 00:23 03/29/19 05:30 Glucose (Fingerstick) 98 mg/dL (70-99) 107 mg/dL (70-99) 94 mg/dL (70-99) White Blood Count 13.9 x10^3/uL (4.0-11.0) Red Blood Count 3.95 x10^6/uL (4.30-5.70) Hemoglobin 9.7 g/dL (13.0-17.5) Hematocrit 30.8 % (39.0-53.0) Mean Corpuscular Volume 78 fL (79-100) Mean Corpuscular Hemoglobin 25 pg (25-35) Mean Corpuscular Hemoglobin Concent 31 g/dL (31-37) Red Cell Distribution Width 19.0 % (11.5-14.5) Platelet Count 278 x10^3/uL (140-400) Neutrophils (%) (Auto) 85 % (31-73) Lymphocytes (%) (Auto) 6 % (24-48) Monocytes (%) (Auto) 8 % (0-9) Eosinophils (%) (Auto) 0 % (0-3) Basophils (%) (Auto) 0 % (0-3) Neutrophils # (Auto) 11.9 x10^3/uL (1.8-7.7) Lymphocytes # (Auto) 0.9 x10^3/uL (1.0-4.8) Monocytes # (Auto) 1.1 x10^3/uL (0.0-1.1) Eosinophils # (Auto) 0.0 x10^3/uL (0.0-0.7) Basophils # (Auto) 0.0 x10^3/uL (0.0-0.2) Sodium Level 142 mmol/L (136-145) Potassium Level 5.4 mmol/L (3.5-5.1) Chloride Level 106 mmol/L (98-107) Carbon Dioxide Level 32 mmol/L (21-32) Anion Gap 4 (6-14) Blood Urea Nitrogen 57 mg/dL (8-26) Creatinine 0.7 mg/dL (0.7-1.3) Estimated GFR (Cockcroft-Gault) 145.6 Glucose Level 108 mg/dL (70-99) Calcium Level 9.0 mg/dL (8.5-10.1) Test 03/29/19 05:55 03/29/19 08:15 03/29/19 11:05 03/29/19 11:12 Glucose (Fingerstick) 104 mg/dL (70-99) 110 mg/dL (70-99) O2 Saturation 88 % (92-99) 91 % (92-99) Arterial Blood pH 7.45 (7.35-7.45) 7.47 (7.35-7.45) Arterial Blood pCO2 at Patient Temp 46 mmHg (35-46) 41 mmHg (35-46) Arterial Blood pO2 at Patient Temp 54 mmHg (75-108) 60 mmHg (75-108) Arterial Blood HCO3 32 mmol/L (21-28) 29 mmol/L (21-28) Arterial Blood Base Excess 7 mmol/L (-3-3) 4 mmol/L (-3-3) FiO2 50 50 Test 03/29/19 18:57 03/30/19 00:19 03/30/19 05:59 03/30/19 06:00 Glucose (Fingerstick) 96 mg/dL (70-99) 105 mg/dL (70-99) 91 mg/dL (70-99) White Blood Count 16.1 x10^3/uL (4.0-11.0) Red Blood Count 4.21 x10^6/uL (4.30-5.70) Hemoglobin 11.0 g/dL (13.0-17.5) Hematocrit 32.5 % (39.0-53.0) Mean Corpuscular Volume 77 fL (79-100) Mean Corpuscular Hemoglobin 26 pg (25-35) Mean Corpuscular Hemoglobin Concent 34 g/dL (31-37) Red Cell Distribution Width 18.8 % (11.5-14.5) Platelet Count 316 x10^3/uL (140-400) Neutrophils (%) (Auto) 82 % (31-73) Lymphocytes (%) (Auto) 8 % (24-48) Monocytes (%) (Auto) 9 % (0-9) Eosinophils (%) (Auto) 0 % (0-3) Basophils (%) (Auto) 0 % (0-3) Neutrophils # (Auto) 13.2 x10^3/uL (1.8-7.7) Lymphocytes # (Auto) 1.3 x10^3/uL (1.0-4.8) Monocytes # (Auto) 1.4 x10^3/uL (0.0-1.1) Eosinophils # (Auto) 0.0 x10^3/uL (0.0-0.7) Basophils # (Auto) 0.1 x10^3/uL (0.0-0.2) Sodium Level 133 mmol/L (136-145) Potassium Level 5.0 mmol/L (3.5-5.1) Chloride Level 98 mmol/L (98-107) Carbon Dioxide Level 30 mmol/L (21-32) Anion Gap 5 (6-14) Blood Urea Nitrogen 42 mg/dL (8-26) Creatinine 0.7 mg/dL (0.7-1.3) Estimated GFR (Cockcroft-Gault) 145.6 BUN/Creatinine Ratio 60 (6-20) Glucose Level 113 mg/dL (70-99) Calcium Level 8.3 mg/dL (8.5-10.1) Total Bilirubin 1.3 mg/dL (0.2-1.0) Aspartate Amino Transf (AST/SGOT) 36 U/L (15-37) Alanine Aminotransferase (ALT/SGPT) 55 U/L (16-63) Alkaline Phosphatase 84 U/L (46-116) Total Protein 6.0 g/dL (6.4-8.2) Albumin 2.5 g/dL (3.4-5.0) Albumin/Globulin Ratio 0.7 (1.0-1.7) Test 03/30/19 07:50 O2 Saturation 92 % (92-99) Arterial Blood pH 7.44 (7.35-7.45) Arterial Blood pCO2 at Patient Temp 42 mmHg (35-46) Arterial Blood pO2 at Patient Temp 66 mmHg (75-108) Arterial Blood HCO3 28 mmol/L (21-28) Arterial Blood Base Excess 4 mmol/L (-3-3) FiO2 50 Laboratory Tests Test 03/29/19 11:05 03/29/19 11:12 03/29/19 18:57 03/30/19 00:19 O2 Saturation 91 % (92-99) Arterial Blood pH 7.47 (7.35-7.45) Arterial Blood pCO2 at Patient Temp 41 mmHg (35-46) Arterial Blood pO2 at Patient Temp 60 mmHg (75-108) Arterial Blood HCO3 29 mmol/L (21-28) Arterial Blood Base Excess 4 mmol/L (-3-3) FiO2 50 Glucose (Fingerstick) 110 mg/dL (70-99) 96 mg/dL (70-99) 105 mg/dL (70-99) Test 03/30/19 05:59 03/30/19 06:00 03/30/19 07:50 Glucose (Fingerstick) 91 mg/dL (70-99) White Blood Count 16.1 x10^3/uL (4.0-11.0) Red Blood Count 4.21 x10^6/uL (4.30-5.70) Hemoglobin 11.0 g/dL (13.0-17.5) Hematocrit 32.5 % (39.0-53.0) Mean Corpuscular Volume 77 fL (79-100) Mean Corpuscular Hemoglobin 26 pg (25-35) Mean Corpuscular Hemoglobin Concent 34 g/dL (31-37) Red Cell Distribution Width 18.8 % (11.5-14.5) Platelet Count 316 x10^3/uL (140-400) Neutrophils (%) (Auto) 82 % (31-73) Lymphocytes (%) (Auto) 8 % (24-48) Monocytes (%) (Auto) 9 % (0-9) Eosinophils (%) (Auto) 0 % (0-3) Basophils (%) (Auto) 0 % (0-3) Neutrophils # (Auto) 13.2 x10^3/uL (1.8-7.7) Lymphocytes # (Auto) 1.3 x10^3/uL (1.0-4.8) Monocytes # (Auto) 1.4 x10^3/uL (0.0-1.1) Eosinophils # (Auto) 0.0 x10^3/uL (0.0-0.7) Basophils # (Auto) 0.1 x10^3/uL (0.0-0.2) Sodium Level 133 mmol/L (136-145) Potassium Level 5.0 mmol/L (3.5-5.1) Chloride Level 98 mmol/L (98-107) Carbon Dioxide Level 30 mmol/L (21-32) Anion Gap 5 (6-14) Blood Urea Nitrogen 42 mg/dL (8-26) Creatinine 0.7 mg/dL (0.7-1.3) Estimated GFR (Cockcroft-Gault) 145.6 BUN/Creatinine Ratio 60 (6-20) Glucose Level 113 mg/dL (70-99) Calcium Level 8.3 mg/dL (8.5-10.1) Total Bilirubin 1.3 mg/dL (0.2-1.0) Aspartate Amino Transf (AST/SGOT) 36 U/L (15-37) Alanine Aminotransferase (ALT/SGPT) 55 U/L (16-63) Alkaline Phosphatase 84 U/L (46-116) Total Protein 6.0 g/dL (6.4-8.2) Albumin 2.5 g/dL (3.4-5.0) Albumin/Globulin Ratio 0.7 (1.0-1.7) O2 Saturation 92 % (92-99) Arterial Blood pH 7.44 (7.35-7.45) Arterial Blood pCO2 at Patient Temp 42 mmHg (35-46) Arterial Blood pO2 at Patient Temp 66 mmHg (75-108) Arterial Blood HCO3 28 mmol/L (21-28) Arterial Blood Base Excess 4 mmol/L (-3-3) FiO2 50 Microbiology 03/16/19 - Final, Complete 03/16/19 - Final, Complete 03/16/19 Gram Stain Evaluation - Final, Complete 03/16/19 Sputum Culture - Final, Complete 03/16/19 Sputum Result 1 - Final, Complete 03/16/19 Blood Culture - Final, Complete NO GROWTH AFTER 5 DAYS 03/09/19 Urine Culture - Final, Complete 03/09/19 Urine Culture Result 1 (WIL) - Final, Complete Medications Current Medications Albuterol/ Ipratropium (Duoneb) 3 ml 1X ONCE NEB Last administered on 03/09/19at 21:21; Start 03/09/19 at 21:30; Stop 03/09/19 at 21:31; Status DC Dexamethasone Sodium Phosphate (Decadron) 10 mg 1X ONCE IV Last administered on 03/09/19at 22:29; Start 03/09/19 at 22:00; Stop 03/09/19 at 22:01; Status DC Propofol 100 ml @ 0 mls/hr CONT PRN IV SEE PROTOCOL Last administered on 03/10/19at 07:19; Start 03/09/19 at 22:30; Stop 03/10/19 at 07:28; Status DC Fentanyl Citrate (Fentanyl 2ml Vial) 50 mcg PRN Q1HR PRN IV SEE COMMENTS; St art 03/09/19 at 22:30; Stop 03/10/19 at 07:28; Status DC Chlorhexidine Gluconate (Peridex) 15 ml BID MM Last administered on 03/30/19at 09:11; Start 03/10/19 at 09:00 Famotidine (Pepcid Vial) 20 mg BID IVP Last administered on 03/30/19at 09:11; Start 03/10/19 at 09:00 Propofol 50 ml @ As Directed STK-MED ONCE IV ; Start 03/09/19 at 22:28; Stop 03/09/19 at 22:28; Status DC Albuterol/ Ipratropium (Duoneb) 3 ml 1X ONCE NEB Last administered on 03/10/19at 02:04; Start 03/09/19 at 23:00; Stop 03/09/19 at 23:01; Status DC Albuterol/ Ipratropium (Duoneb) 3 ml 1X ONCE NEB Last administered on 03/10/19at 02:04; Start 03/09/19 at 23:00; Stop 03/09/19 at 23:01; Status DC Fentanyl Citrate (Fentanyl 2ml Vial) 100 mcg 1X ONCE IV Last administered on 03/09/19at 23:31; Start 03/09/19 at 23:30; Stop 03/09/19 at 23:31; Status DC Bumetanide (Bumex) 1 mg 1X ONCE IV Last administered on 03/10/19at 00:21; Start 03/10/19 at 00:00; Stop 03/10/19 at 00:01; Status DC Heparin Sodium (Porcine) (Heparin Sodium) 4,000 unit 1X ONCE IV Last admini stered on 03/10/19at 00:31; Start 03/10/19 at 00:00; Stop 03/10/19 at 00:01; Status DC Heparin Sodium/ Dextrose 500 ml @ 0 mls/hr CONT PRN IV PER PROTOCOL Last administered on 03/10/19at 23:34; Start 03/09/19 at 23:45; Stop 03/11/19 at 16:13; Status DC Heparin Sodium (Porcine) (Heparin Sodium) 5,500 unit PRN Q6HRS PRN IV FOR UFH LEVEL LESS THAN 0.2 Last administered on 03/11/19at 00:57; Start 03/09/19 at 23:45; Stop 03/11/19 at 16:13; Status DC Aspirin (Aspirin Rectal Supp) 300 mg 1X ONCE MT Last administered on 03/10/19at 03:42; Start 03/10/19 at 00:00; Stop 03/10/19 at 00:01; Status DC Propofol 50 ml @ As Directed STK-MED ONCE IV ; Start 03/09/19 at 23:38; Stop 03/09/19 at 23:38; Status DC Propofol 50 ml @ As Directed STK-MED ONCE IV ; Start 03/09/19 at 23:38; Stop 03/09/19 at 23:38; Status DC Piperacillin Sod/ Tazobactam Sod 4.5 gm/Sodium Chloride 100 ml @ 200 mls/hr 1X ONCE IV Last administered on 03/10/19at 05:19; Start 03/10/19 at 00:30; Stop 03/10/19 at 00:59; Status DC Propofol 50 ml @ As Directed STK-MED ONCE IV ; Start 03/10/19 at 00:51; Stop 03/10/19 at 00:51; Status DC Propofol 50 ml @ As Directed STK-MED ONCE IV ; Start 03/10/19 at 01:14; Stop 03/10/19 at 01:15; Status DC Fentanyl Citrate (Fentanyl 2ml Vial) 100 mcg 1X ONCE IV Last administered on 03/10/19at 01:26; Start 03/10/19 at 01:45; Stop 03/10/19 at 01:46; Status DC Clonidine HCl (Catapres) 0.1 mg 1X ONCE PO ; Start 03/10/19 at 01:30; Stop 03/10/19 at 01:34; Status DC Midazolam HCl (Versed) 5 mg 1X ONCE IV Last administered on 03/10/19at 01:28; Start 03/10/19 at 01:30; Stop 03/10/19 at 01:34; Status DC Propofol 50 ml @ As Directed STK-MED ONCE IV ; Start 03/10/19 at 02:08; Stop 03/10/19 at 02:09; Status DC Propofol 50 ml @ As Directed STK-MED ONCE IV ; Start 03/10/19 at 02:36; Stop 03/10/19 at 02:36; Status DC Rocuronium [place] (Zemuron) 50 mg STK-MED ONCE .ROUTE ; Start 03/10/19 at 05:15; Stop 03/10/19 at 05:15; Status DC Etomidate (Amidate) 20 mg STK-MED ONCE IV ; Start 03/10/19 at 05:15; Stop 03/10/19 at 05:16; Status DC Fentanyl Citrate 30 ml @ 0 mls/hr CONT PRN IV SEE PROTOCOL Last administered on 03/30/19at 07:24; Start 03/10/19 at 07:30 Propofol 100 ml @ 0 mls/hr CONT PRN IV SEE PROTOCOL Last administered on 03/30/19at 09:32; Start 03/10/19 at 07:30 Fentanyl Citrate (Fentanyl 2ml Vial) 25 mcg PRN Q1HR PRN IV SEE COMMENTS; Start 03/10/19 at 07:30 Fentanyl Citrate (Fentanyl 2ml Vial) 50 mcg PRN Q1HR PRN IV SEE COMMENTS; Start 03/10/19 at 07:30 Artificial Tears (Artificial Tears) 1 drop PRN Q1HR PRN OU DRY EYE, 1ST CHOICE Last administered on 03/13/19at 13:32; Start 03/10/19 at 07:30 Famotidine (Pepcid Vial) 20 mg BID IVP ; Start 03/10/19 at 09:00; Status UNV Morphine Sulfate (Morphine Sulfate) 2 mg PRN Q1HR PRN IV SEE COMMENTS. Last administered on 03/25/19at 09:18; Start 03/10/19 at 07:30 Morphine Sulfate (Morphine Sulfate) 4 mg PRN Q1HR PRN IV SEE COMMENTS.; Start 03/10/19 at 07:30 Midazolam HCl 100 ml @ 0 mls/hr CONT PRN IV SEE PROTOCOL Last administered on 03/30/19at 03:52; Start 03/10/19 at 07:30 Levofloxacin/ Dextrose (Levaquin Per Pharmacy) 1 each PRN DAILY PRN MC SEE COMMENTS; Start 03/10/19 at 08:15; Stop 03/14/19 at 09:25; Status DC Albuterol/ Ipratropium (Duoneb) 3 ml RTQID NEB Last administered on 03/30/19at 07:49; Start 03/10/19 at 12:00 Sodium Chloride 1,000 ml @ 100 mls/hr Q10H IV Last administered on 03/10/19at 23:34; Start 03/10/19 at 08:15; Stop 03/11/19 at 16:02; Status DC Amlodipine Besylate (Norvasc) 5 mg DAILY PO Last administered on 03/10/19at 09:13; Start 03/10/19 at 09:00; Stop 03/10/19 at 10:04; Status DC Hydrochlorothiazide (Hydrodiuril) 25 mg DAILY PO Last administered on 03/10/19at 09:13; Start 03/10/19 at 09:00; Stop 03/10/19 at 10:04; Status DC Lisinopril (Prinivil) 5 mg DAILY PO Last administered on 03/10/19at 09:13; Start 03/10/19 at 09:00; Stop 03/10/19 at 10:04; Status DC Levofloxacin/ Dextrose 100 ml @ 100 mls/hr Q24H IV Last administered on 03/14/19at 08:10; Start 03/10/19 at 09:00; Stop 03/14/19 at 09:25; Status DC Aspirin (Amanda Aspirin) 325 mg 1X ONCE PO Last administered on 03/10/19at 10:55; Start 03/10/19 at 10:30; Stop 03/10/19 at 10:31; Status DC Aspirin (Children'S Aspirin) 81 mg DAILYWBKFT PO Last administered on 03/30/19at 09:11; Start 03/11/19 at 08:00 Amlodipine Besylate (Norvasc) 10 mg DAILY PO Last administered on 03/11/19at 09:37; Start 03/11/19 at 09:00; Stop 03/11/19 at 12:50; Status DC Hydralazine HCl (Apresoline Inj) 10 mg PRN Q4HRS PRN IVP ELEVATED BP, SEE COMMENTS; Start 03/10/19 at 10:15; Stop 03/12/19 at 09:37; Status DC Furosemide (Lasix) 40 mg DAILY IVP Last administered on 03/11/19at 09:37; Start 03/10/19 at 11:00; Stop 03/11/19 at 11:24; Status DC Insulin Human Lispro (HumaLOG) 0-9 UNITS TIDWMEALS SQ ; Start 03/10/19 at 12:00; Stop 03/10/19 at 17:57; Status DC Dextrose (Dextrose 50%-Water Syringe) 12.5 gm PRN Q15MIN PRN IV SEE COMMENTS; Start 03/10/19 at 11:15; Stop 03/12/19 at 16:47; Status DC Dextrose 250 ml PRN Q15MIN PRN IV SEE COMMENTS; Start 03/10/19 at 11:15; Stop 03/10/19 at 11:05; Status DC Iohexol (Omnipaque 350 Mg/ml) 100 ml 1X ONCE IV Last administered on 03/10/19at 14:05; Start 03/10/19 at 11:45; Stop 03/10/19 at 11:47; Status DC Info (CONTRAST GIVEN -- Rx MONITORING) 1 each PRN DAILY PRN MC SEE COMMENTS; Start 03/10/19 at 11:45; Stop 03/12/19 at 11:44; Status DC Piperacillin Sod/ Tazobactam Sod (Zosyn Per Pharmacy) 1 each PRN DAILY PRN MC SEE COMMENTS; Start 03/10/19 at 11:45; Stop 03/25/19 at 08:36; Status DC Vancomycin HCl (Vanco Per Pharmacy) 1 each PRN DAILY PRN MC SEE COMMENTS Last administered on 03/11/19at 09:42; Start 03/10/19 at 11:45; Stop 03/11/19 at 13:57; Status DC Vancomycin HCl 2 gm/Sodium Chloride 500 ml @ 250 mls/hr 1X ONCE IV Last administered on 03/10/19at 12:41; Start 03/10/19 at 13:00; Stop 03/10/19 at 14:59; Status DC Piperacillin Sod/ Tazobactam Sod 3.375 gm/Sodium Chloride 50 ml @ 100 mls/hr Q6HRS IV Last administered on 03/24/19at 05:45; Start 03/10/19 at 12:30; Stop 03/24/19 at 07:24; Status DC Vancomycin HCl 1.75 gm/Sodium Chloride 500 ml @ 250 mls/hr Q12H IV Last administered on 03/11/19at 12:43; Start 03/11/19 at 01:00; Stop 03/11/19 at 13:57; Status DC Vancomycin HCl (Vancomycin Trough Level) 1 each 1X ONCE MC ; Start 03/12/19 at 12:30; Stop 03/12/19 at 12:31; Status Cancel Insulin Human Lispro (HumaLOG) 0-9 UNITS Q6HRS SQ ; Start 03/11/19 at 00:00; Stop 03/27/19 at 09:06; Status DC Magnesium Sulfate/ Dextrose 100 ml @ 50 mls/hr DAILY IV Last administered on 03/11/19at 09:28; Start 03/11/19 at 09:00; Stop 03/14/19 at 08:59; Status DC Potassium Phosphate 27.2 mmol/Sodium Chloride 259.0667 ml @ 64.753 m... 1X ONCE IV Last administered on 03/11/19at 09:28; Start 03/11/19 at 10:00; Stop 03/11/19 at 14:00; Status DC Potassium Phosphate 27.2 mmol/Sodium Chloride 259.0667 ml @ 64.753 m... 1X ONCE IV ; Start 03/11/19 at 14:00; Stop 03/11/19 at 18:00; Status DC Lorazepam (Ativan Inj) 1 mg PRN Q1HR PRN IV ANXIETY Last administered on 03/14/19at 16:32; Start 03/11/19 at 11:00; Stop 03/19/19 at 10:31; Status DC Sodium Chloride 1,000 ml @ 1,000 mls/hr 1X ONCE IV Last administered on 03/11/19at 12:06; Start 03/11/19 at 11:30; Stop 03/11/19 at 12:29; Status DC Norepinephrine Bitartrate 250 ml @ 27.837 mls/ hr CONT PRN IV SEE I/O RECORD Last administered on 03/13/19at 04:13; Start 03/11/19 at 13:00; Stop 03/26/19 at 09:22; Status DC Hydralazine HCl (Apresoline Inj) 10 mg PRN Q4HRS PRN IVP ELEVATED BP, SEE COMMENTS Last administered on 03/22/19at 06:13; Start 03/11/19 at 13:00 Linezolid/Dextrose 300 ml @ 300 mls/hr Q12HR IV Last administered on 03/22/19at 21:38; Start 03/11/19 at 21:00; Stop 03/23/19 at 07:48; Status DC Potassium Chloride/Water 50 ml @ 50 mls/hr Q1H IV Last administered on 03/11/19at 17:28; Start 03/11/19 at 16:00; Stop 03/11/19 at 17:59; Status DC Heparin Sodium (Porcine) (Heparin Sodium) 5,000 unit Q8HRS SQ Last administered on 03/30/19at 05:51; Start 03/11/19 at 22:00 Multi-Ingred Cream/Lotion/Oil/ Oint (Artificial Tears Eye Ointment) 1 zuri PRN Q 1HR PRN OU DRY EYE; Start 03/12/19 at 09:00 Potassium Chloride/Water 50 ml @ 50 mls/hr 1X ONCE IV Last administered on 03/12/19at 09:44; Start 03/12/19 at 10:00; Stop 03/12/19 at 10:59; Status DC Potassium Chloride/Water 50 ml @ 50 mls/hr 1X ONCE IV ; Start 03/12/19 at 10:30; Stop 03/12/19 at 11:31; Status DC Insulin Human Lispro (HumaLOG) 0-9 UNITS TIDWMEALS SQ ; Start 03/12/19 at 17:00; Stop 03/12/19 at 16:24; Status DC Dextrose (Dextrose 50%-Water Syringe) 12.5 gm PRN Q15MIN PRN IV SEE COMMENTS; Start 03/12/19 at 16:15 Dextrose 250 ml PRN Q15MIN PRN IV SEE COMMENTS; Start 03/12/19 at 16:15; Stop 03/27/19 at 08:59; Status DC Insulin Human Lispro (HumaLOG) 0-9 UNITS Q6HRS SQ Last administered on 03/26/19at 00:37; Start 03/12/19 at 18:00 Dexmedetomidine HCl 400 mcg/ Sodium Chloride 100 ml @ 0 mls/hr CONT PRN IV ANXIETY / AGITATION Last administered on 03/21/19at 04:33; Start 03/12/19 at 20:30; Stop 03/26/19 at 09:22; Status DC Sodium Chloride 500 ml @ 500 mls/hr 1X PRN PRN IV see comments Last administered on 03/12/19at 23:22; Start 03/12/19 at 20:30 Atropine Sulfate (ATROPINE 0.5mg SYRINGE) 0.5 mg PRN Q5MIN PRN IV SEE COMMENTS; Start 03/12/19 at 20:30 Vecuronium [place] (Norcuron Bolus) 10 mg PRN Q1HR PRN IV OVERBREATHING VENT Last administered on 03/25/19at 10:49; Start 03/13/19 at 07:30 Perflutren Protein Type A Microsphe (Optison) 0.66 mg STK-MED ONCE IV ; Start 03/13/19 at 09:08; Stop 03/13/19 at 09:08; Status DC Perflutren Protein Type A Microsphe (Optison) 0.66 mg 1X ONCE IV Last administered on 03/13/19at 09:40; Start 03/13/19 at 09:15; Stop 03/13/19 at 09:16; Status DC Furosemide (Lasix) 40 mg 1X ONCE IVP Last administered on 03/13/19at 13:32; Start 03/13/19 at 10:30; Stop 03/13/19 at 10:31; Status DC Daptomycin 1320 mg/Sodium Chloride 50 ml @ 100 mls/hr ONCE ONCE IV Last administered on 03/15/19at 13:53; Start 03/15/19 at 13:00; Stop 03/16/19 at 09:33; Status DC Daptomycin 1340 mg/Sodium Chloride 50 ml @ 100 mls/hr Q24H IV ; Start 03/16/19 at 08:45; Status UNV Daptomycin 1340 mg/Sodium Chloride 50 ml @ 100 mls/hr Q24H IV ; Start 03/16/19 at 09:00; Status Cancel Daptomycin 830 mg/ Sodium Chloride 50 ml @ 100 mls/hr Q24H IV Last admi nistered on 03/18/19at 15:03; Start 03/16/19 at 14:00; Stop 03/19/19 at 07:41; Status DC Methylprednisolone Sodium Succinate (SOLU-Medrol 125MG VIAL) 100 mg Q8HRS IV Last administered on 03/23/19at 05:54; Start 03/16/19 at 12:00; Stop 03/23/19 at 12:03; Status DC Furosemide (Lasix) 40 mg 1X ONCE IVP Last administered on 03/16/19at 16:46; Start 03/16/19 at 16:30; Stop 03/16/19 at 16:31; Status DC Fentanyl Citrate (Fentanyl 600 Mcg/30 ml TACTICAL DEBRIEFER OFFICER) 600 mcg STK-MED ONCE IV ; Start 03/13/19 at 17:00; Stop 03/17/19 at 11:02; Status DC Furosemide 100 mg/ Sodium Chloride 100 ml @ 5 mls/hr CONT PRN IV SEE I/O RECORD Last administered on 03/18/19at 00:20; Start 03/17/19 at 15:45; Stop 03/18/19 at 10:36; Status DC Furosemide 100 mg/ Sodium Chloride 100 ml @ 5 mls/hr CONT PRN IV SEE I/O RECORD Last administered on 03/21/19at 08:34; Start 03/18/19 at 10:45; Stop 03/21/19 at 12:57; Status DC Lorazepam (Ativan Inj) 2 mg PRN Q1HR PRN IV ANXIETY Last administered on 03/20/19at 17:11; Start 03/19/19 at 10:45 Lisinopril (Prinivil) 5 mg DAILY PO Last administered on 03/30/19 09:11; Start 03/21/19 at 11:30 Amlodipine Besylate (Norvasc) 10 mg DAILY PO Last administered on 03/30/19 09:11; Start 03/21/19 at 11:30 Furosemide 100 mg/ Sodium Chloride 100 ml @ 10 mls/hr CONT PRN IV SEE I/O RECORD Last administered on 03/22/19at 05:05; Start 03/21/19 at 16:00; Stop 03/22/19 at 12:39; Status DC Scopolamine (Transderm-Scop) 1 patch Q3DAYS TD Last administered on 03/28/19at 08:16; Start 03/22/19 at 11:00 Furosemide 100 mg/ Sodium Chloride 100 ml @ 5 mls/hr CONT PRN IV SEE I/O RECORD Last administered on 03/22/19at 21:38; Start 03/22/19 at 12:45; Stop 03/23/19 at 17:48; Status DC Methylprednisolone Sodium Succinate (SOLU-Medrol 125MG VIAL) 50 mg Q8HRS IV Last administered on 03/27/19at 05:30; Start 03/23/19 at 14:00; Stop 03/27/19 at 11:20; Status DC Insulin Human Lispro (HumaLOG) 0-5 UNITS TIDWMEALS SQ ; Start 03/27/19 at 09:30; Status Cancel Dextrose (Dextrose 50%-Water Syringe) 12.5 gm PRN Q15MIN PRN IV SEE COMMENTS; Start 03/27/19 at 09:00; Status Cancel Dextrose 250 ml PRN Q15MIN PRN IV SEE COMMENTS; Start 03/27/19 at 09:00; Status Cancel Methylprednisolone Sodium Succinate (SOLU-Medrol 40MG VIAL) 30 mg Q8HRS IV Last administered on 03/30/19at 05:51; Start 03/27/19 at 14:00 Furosemide (Lasix) 40 mg 1X ONCE IVP Last administered on 03/27/19at 11:58; Start 03/27/19 at 12:00; Stop 03/27/19 at 12:01; Status DC Furosemide (Lasix) 40 mg 1X ONCE IVP Last administered on 03/28/19at 10:15; Start 03/28/19 at 09:30; Stop 03/28/19 at 09:46; Status DC Furosemide (Lasix) 40 mg 1X ONCE IVP Last administered on 03/29/19at 09:44; Start 03/29/19 at 09:30; Stop 03/29/19 at 09:31; Status DC Sodium Chloride 1,000 ml @ 1,000 mls/hr 1X ONCE IV Last administered on 03/29/19at 20:41; Start 03/29/19 at 20:30; Stop 03/29/19 at 21:29; Status DC Norepinephrine Bitartrate 250 ml @ 38.554 mls/ hr CONT PRN IV SEE I/O RECORD; Start 03/29/19 at 20:30 Active Scripts Active Norvasc (Amlodipine Besylate) 5 Mg Tablet 1 Tab PO DAILY Lisinopril 5 Mg Tablet 1 Tab PO DAILY Reported Hydrochlorothiazide Tablet (Hydrochlorothiazide) 25 Mg Tablet 25 Mg PO DAILY Vitals/I & O Vital Sign - Last 24 Hours 03/29/19 03/29/19 03/29/19 03/29/19 10:24 11:00 11:07 12:00 Pulse 83 Resp 32 16 B/P (MAP) 109/63 (78) Pulse Ox 94 97 96 O2 Delivery Ventilator Ventilator Ventilator Mechanical Ventilator 03/29/19 03/29/19 03/29/19 03/29/19 12:00 13:00 13:20 13:25 Pulse 82 70 Resp 21 24 15 B/P (MAP) 136/92 (107) 103/55 (71) Pulse Ox 98 98 97 98 O2 Delivery Ventilator Ventilator Ventilator Ventilator 03/29/19 03/29/19 03/29/19 03/29/19 14:00 15:00 15:47 16:00 Pulse 73 88 Resp 16 16 B/P (MAP) 166/88 (114) 149/81 (103) Pulse Ox 97 98 97 O2 Delivery Ventilator Ventilator Ventilator Mechanical Ventilator 03/29/19 03/29/19 03/29/19 03/29/19 16:00 17:00 17:25 18:10 Temp 97.8 97.8 Pulse 86 69 69 Resp 17 16 15 B/P (MAP) 147/81 (103) 151/89 (109) 105/68 (80) Pulse Ox 100 96 96 97 O2 Delivery Ventilator Ventilator Ventilator Ventilator 03/29/19 03/29/19 03/29/19 03/29/19 19:00 19:27 20:00 20:00 Temp 98.3 98.3 Pulse 66 56 Resp 12 12 12 B/P (MAP) 103/65 (78) 102/67 (79) Pulse Ox 96 96 96 O2 Delivery Ventilator Mechanical Ventilator Ventilator O2 Flow Rate 93.0 03/29/19 03/29/19 03/29/19 03/29/19 20:22 21:00 22:00 23:00 Pulse 76 71 68 Resp 12 12 12 B/P (MAP) 118/70 (86) 122/70 (87) 121/56 (77) Pulse Ox 96 96 97 96 O2 Delivery Ventilator Ventilator Ventilator Ventilator 03/29/19 03/29/19 03/30/19 03/30/19 23:59 23:59 00:12 01:00 Temp 97.9 97.9 Pulse 72 78 Resp 12 12 B/P (MAP) 122/64 (83) 118/56 (76) Pulse Ox 98 96 96 O2 Delivery Ventilator Mechanical Ventilator Ventilator Ventilator 03/30/19 03/30/19 03/30/19 03/30/19 01:31 02:00 02:10 03:00 Pulse 66 72 Resp 16 12 14 B/P (MAP) 134/69 (90) 132/65 (87) Pulse Ox 97 96 97 98 O2 Delivery Ventilator Ventilator Ventilator Ventilator 03/30/19 03/30/19 03/30/19 03/30/19 03:56 03:59 04:04 04:04 Temp 98.4 98.4 Pulse 99 Resp 20 B/P (MAP) 156/94 (114) Pulse Ox 99 99 99 O2 Delivery Mechanical Ventilator Ventilator O2 Flow Rate 93.0 93.0 03/30/19 03/30/19 03/30/19 03/30/19 04:59 05:00 06:01 07:50 Pulse 95 96 Resp 16 20 B/P (MAP) 148/68 (94) 181/96 (124) Pulse Ox 94 100 100 97 O2 Delivery Ventilator Ventilator Ventilator Ventilator 03/30/19 03/30/19 09:11 09:11 Pulse 74 74 B/P (MAP) 111/64 111/64 Intake and Output 03/29/19 03/29/19 03/30/19 15:00 23:00 07:00 Intake Total 400 ml 2474.08 ml 2434.1 ml Output Total 3065 ml 990 ml 675 ml Balance -2665 ml 1484.08 ml 1759.1 ml LICO HOLGUIN MD Mar 30, 2019 10:01
[2019-03-30] MEDS ORDERED: FUROSEMIDE 40 MG/4 ML VIAL. IVP ONE (10:15)
--- NOTE | 2019-03-30 10:17 | PDOC ---
PULMONARY PROGRESS NOTES Subjective Patient with respiratory failure secondary to ARDS from vaping. remains on vent, sedated on fentanyl, versed, and propofol-- Ventilator support decreasing, now on 50% FIO2, 5 of PEEP . Vitals Vital Signs Date Time Temp Pulse Resp B/P (MAP) Pulse Ox O2 Delivery O2 Flow Rate FiO2 03/30/19 09:11 74 111/64 03/30/19 07:50 97 Ventilator 03/30/19 06:01 20 03/30/19 04:04 93.0 03/30/19 03:59 98.4 98.4 Comments unable to obtain 2/2 vent/sedation. morbidly obese Lungs: Other (decrease bs) Cardiovascular: S1, S2 Abdomen: Soft, Non-tender, Other (obese) Extremities: Other (lymphedema BLE ) Skin: Warm, Dry Labs Laboratory Tests Test 03/28/19 12:18 03/28/19 17:56 03/29/19 00:23 03/29/19 05:30 Glucose (Fingerstick) 98 mg/dL (70-99) 107 mg/dL (70-99) 94 mg/dL (70-99) White Blood Count 13.9 x10^3/uL (4.0-11.0) Red Blood Count 3.95 x10^6/uL (4.30-5.70) Hemoglobin 9.7 g/dL (13.0-17.5) Hematocrit 30.8 % (39.0-53.0) Mean Corpuscular Volume 78 fL (79-100) Mean Corpuscular Hemoglobin 25 pg (25-35) Mean Corpuscular Hemoglobin Concent 31 g/dL (31-37) Red Cell Distribution Width 19.0 % (11.5-14.5) Platelet Count 278 x10^3/uL (140-400) Neutrophils (%) (Auto) 85 % (31-73) Lymphocytes (%) (Auto) 6 % (24-48) Monocytes (%) (Auto) 8 % (0-9) Eosinophils (%) (Auto) 0 % (0-3) Basophils (%) (Auto) 0 % (0-3) Neutrophils # (Auto) 11.9 x10^3/uL (1.8-7.7) Lymphocytes # (Auto) 0.9 x10^3/uL (1.0-4.8) Monocytes # (Auto) 1.1 x10^3/uL (0.0-1.1) Eosinophils # (Auto) 0.0 x10^3/uL (0.0-0.7) Basophils # (Auto) 0.0 x10^3/uL (0.0-0.2) Sodium Level 142 mmol/L (136-145) Potassium Level 5.4 mmol/L (3.5-5.1) Chloride Level 106 mmol/L (98-107) Carbon Dioxide Level 32 mmol/L (21-32) Anion Gap 4 (6-14) Blood Urea Nitrogen 57 mg/dL (8-26) Creatinine 0.7 mg/dL (0.7-1.3) Estimated GFR (Cockcroft-Gault) 145.6 Glucose Level 108 mg/dL (70-99) Calcium Level 9.0 mg/dL (8.5-10.1) Test 03/29/19 05:55 03/29/19 08:15 03/29/19 11:05 03/29/19 11:12 Glucose (Fingerstick) 104 mg/dL (70-99) 110 mg/dL (70-99) O2 Saturation 88 % (92-99) 91 % (92-99) Arterial Blood pH 7.45 (7.35-7.45) 7.47 (7.35-7.45) Arterial Blood pCO2 at Patient Temp 46 mmHg (35-46) 41 mmHg (35-46) Arterial Blood pO2 at Patient Temp 54 mmHg (75-108) 60 mmHg (75-108) Arterial Blood HCO3 32 mmol/L (21-28) 29 mmol/L (21-28) Arterial Blood Base Excess 7 mmol/L (-3-3) 4 mmol/L (-3-3) FiO2 50 50 Test 03/29/19 18:57 03/30/19 00:19 03/30/19 05:59 03/30/19 06:00 Glucose (Fingerstick) 96 mg/dL (70-99) 105 mg/dL (70-99) 91 mg/dL (70-99) White Blood Count 16.1 x10^3/uL (4.0-11.0) Red Blood Count 4.21 x10^6/uL (4.30-5.70) Hemoglobin 11.0 g/dL (13.0-17.5) Hematocrit 32.5 % (39.0-53.0) Mean Corpuscular Volume 77 fL (79-100) Mean Corpuscular Hemoglobin 26 pg (25-35) Mean Corpuscular Hemoglobin Concent 34 g/dL (31-37) Red Cell Distribution Width 18.8 % (11.5-14.5) Platelet Count 316 x10^3/uL (140-400) Neutrophils (%) (Auto) 82 % (31-73) Lymphocytes (%) (Auto) 8 % (24-48) Monocytes (%) (Auto) 9 % (0-9) Eosinophils (%) (Auto) 0 % (0-3) Basophils (%) (Auto) 0 % (0-3) Neutrophils # (Auto) 13.2 x10^3/uL (1.8-7.7) Lymphocytes # (Auto) 1.3 x10^3/uL (1.0-4.8) Monocytes # (Auto) 1.4 x10^3/uL (0.0-1.1) Eosinophils # (Auto) 0.0 x10^3/uL (0.0-0.7) Basophils # (Auto) 0.1 x10^3/uL (0.0-0.2) Sodium Level 133 mmol/L (136-145) Potassium Level 5.0 mmol/L (3.5-5.1) Chloride Level 98 mmol/L (98-107) Carbon Dioxide Level 30 mmol/L (21-32) Anion Gap 5 (6-14) Blood Urea Nitrogen 42 mg/dL (8-26) Creatinine 0.7 mg/dL (0.7-1.3) Estimated GFR (Cockcroft-Gault) 145.6 BUN/Creatinine Ratio 60 (6-20) Glucose Level 113 mg/dL (70-99) Calcium Level 8.3 mg/dL (8.5-10.1) Total Bilirubin 1.3 mg/dL (0.2-1.0) Aspartate Amino Transf (AST/SGOT) 36 U/L (15-37) Alanine Aminotransferase (ALT/SGPT) 55 U/L (16-63) Alkaline Phosphatase 84 U/L (46-116) Total Protein 6.0 g/dL (6.4-8.2) Albumin 2.5 g/dL (3.4-5.0) Albumin/Globulin Ratio 0.7 (1.0-1.7) Test 03/30/19 07:50 O2 Saturation 92 % (92-99) Arterial Blood pH 7.44 (7.35-7.45) Arterial Blood pCO2 at Patient Temp 42 mmHg (35-46) Arterial Blood pO2 at Patient Temp 66 mmHg (75-108) Arterial Blood HCO3 28 mmol/L (21-28) Arterial Blood Base Excess 4 mmol/L (-3-3) FiO2 50 Laboratory Tests Test 03/29/19 11:05 03/29/19 11:12 03/29/19 18:57 03/30/19 00:19 O2 Saturation 91 % (92-99) Arterial Blood pH 7.47 (7.35-7.45) Arterial Blood pCO2 at Patient Temp 41 mmHg (35-46) Arterial Blood pO2 at Patient Temp 60 mmHg (75-108) Arterial Blood HCO3 29 mmol/L (21-28) Arterial Blood Base Excess 4 mmol/L (-3-3) FiO2 50 Glucose (Fingerstick) 110 mg/dL (70-99) 96 mg/dL (70-99) 105 mg/dL (70-99) Test 03/30/19 05:59 03/30/19 06:00 03/30/19 07:50 Glucose (Fingerstick) 91 mg/dL (70-99) White Blood Count 16.1 x10^3/uL (4.0-11.0) Red Blood Count 4.21 x10^6/uL (4.30-5.70) Hemoglobin 11.0 g/dL (13.0-17.5) Hematocrit 32.5 % (39.0-53.0) Mean Corpuscular Volume 77 fL (79-100) Mean Corpuscular Hemoglobin 26 pg (25-35) Mean Corpuscular Hemoglobin Concent 34 g/dL (31-37) Red Cell Distribution Width 18.8 % (11.5-14.5) Platelet Count 316 x10^3/uL (140-400) Neutrophils (%) (Auto) 82 % (31-73) Lymphocytes (%) (Auto) 8 % (24-48) Monocytes (%) (Auto) 9 % (0-9) Eosinophils (%) (Auto) 0 % (0-3) Basophils (%) (Auto) 0 % (0-3) Neutrophils # (Auto) 13.2 x10^3/uL (1.8-7.7) Lymphocytes # (Auto) 1.3 x10^3/uL (1.0-4.8) Monocytes # (Auto) 1.4 x10^3/uL (0.0-1.1) Eosinophils # (Auto) 0.0 x10^3/uL (0.0-0.7) Basophils # (Auto) 0.1 x10^3/uL (0.0-0.2) Sodium Level 133 mmol/L (136-145) Potassium Level 5.0 mmol/L (3.5-5.1) Chloride Level 98 mmol/L (98-107) Carbon Dioxide Level 30 mmol/L (21-32) Anion Gap 5 (6-14) Blood Urea Nitrogen 42 mg/dL (8-26) Creatinine 0.7 mg/dL (0.7-1.3) Estimated GFR (Cockcroft-Gault) 145.6 BUN/Creatinine Ratio 60 (6-20) Glucose Level 113 mg/dL (70-99) Calcium Level 8.3 mg/dL (8.5-10.1) Total Bilirubin 1.3 mg/dL (0.2-1.0) Aspartate Amino Transf (AST/SGOT) 36 U/L (15-37) Alanine Aminotransferase (ALT/SGPT) 55 U/L (16-63) Alkaline Phosphatase 84 U/L (46-116) Total Protein 6.0 g/dL (6.4-8.2) Albumin 2.5 g/dL (3.4-5.0) Albumin/Globulin Ratio 0.7 (1.0-1.7) O2 Saturation 92 % (92-99) Arterial Blood pH 7.44 (7.35-7.45) Arterial Blood pCO2 at Patient Temp 42 mmHg (35-46) Arterial Blood pO2 at Patient Temp 66 mmHg (75-108) Arterial Blood HCO3 28 mmol/L (21-28) Arterial Blood Base Excess 4 mmol/L (-3-3) FiO2 50 Medications Active Scripts Medications Dose Route/Sig Max Daily Dose Days Date Category Hydrochlorothiazide Tablet (Hydrochlorothiazide) 25 Mg Tablet 25 Mg PO DAILY 03/10/19 Reported Norvasc (Amlodipine Besylate) 5 Mg Tablet 1 Tab PO DAILY 01/12/19 Rx Lisinopril 5 Mg Tablet 1 Tab PO DAILY 01/12/19 Rx Comments CXR 03/30 BILATERAL INFILTRATES. , overall improved basal atelectasis Impression . 1. Acute hypercarbic/hypoxic respiratory Failure due to ARDS , vaping related,oxygenation slowly improving on 50%, and PEEP of 5 2. Suspected VAP ABX per ID , currently off ABX 3.Hypertension (controlled) 4. Pre-renal Azotemia, improved 5. Pulm. HTN PA pressure 55 Normal EF 6. HX. of tobacco use 7. Morbid obesity Plan . 1. Continue with present assist control mode. reduce FIO2 45%. will start weaning sedation soon 2. high dose steroids ,initiated 03/16 , dose reduced today, slow taper as tolerated 3. off abx at this time 4. no further fever 5. Continue bronchodilators. 6. Heparin for DVT prophylaxis 7 azotemia .renal following 8. ideally will need tracheostomy and LTACH , however he has no resources and placement will be an issue. will try to extubate if improves further 9. DNR.Continue aggressive supportive care CCM time reviewing case, xrays, examining patient and determining care 30 minutes discussed with RN and RT. We will follow along with you. MARIO ALLEN MD Mar 30, 2019 10:17
--- NOTE | 2019-03-30 17:49 | PDOC ---
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 morbid obesity, would make trach difficult in ICU, wean vent - better a little pulm following Pt is sedated and on ventilation - Vitals Vitals Vital Signs Date Time Temp Pulse Resp B/P (MAP) Pulse Ox O2 Delivery O2 Flow Rate FiO2 03/30/19 17:00 59 15 131/80 (97) 99 Ventilator 03/30/19 16:00 98.1 98.1 03/30/19 04:04 93.0 Physical Exam Physical Exam GENERAL: Orally intubated/ sedated - lightly, HEENT: opened eyes Pupils equal, nml conj OGT/ETT NECK: Supple LUNGS: dec bs at bases HEART: S1 and S2, regular. ABDOMEN: Obese, soft, +BS : Ramos in place fecal tube in place EXTREMITIES: Trace edema - MITTS SKIN: Chronic stasis dermatitis on the lower extremity. NEUROLOGIC: Sedated IVS; Old RIJ site clean. RUE - PICC clean General: No acute distress, Other (short neck , Mallampati 4 ON VENT) Heart: Regular rate (SR), Other (distante heart sounds) Lungs: Other (decrease bs) Abdomen: Normal bowel sounds, Soft, No tenderness, No hepatosplenomegaly, No masses Extremities: No clubbing, No cyanosis, No edema, Normal pulses, No tenderness/swelling Skin: No rashes, No breakdown, No significant lesion Labs LABS Laboratory Tests Test 03/29/19 18:57 03/30/19 00:19 03/30/19 05:59 03/30/19 06:00 Glucose (Fingerstick) 96 mg/dL (70-99) 105 mg/dL (70-99) 91 mg/dL (70-99) White Blood Count 16.1 x10^3/uL (4.0-11.0) Red Blood Count 4.21 x10^6/uL (4.30-5.70) Hemoglobin 11.0 g/dL (13.0-17.5) Hematocrit 32.5 % (39.0-53.0) Mean Corpuscular Volume 77 fL (79-100) Mean Corpuscular Hemoglobin 26 pg (25-35) Mean Corpuscular Hemoglobin Concent 34 g/dL (31-37) Red Cell Distribution Width 18.8 % (11.5-14.5) Platelet Count 316 x10^3/uL (140-400) Neutrophils (%) (Auto) 82 % (31-73) Lymphocytes (%) (Auto) 8 % (24-48) Monocytes (%) (Auto) 9 % (0-9) Eosinophils (%) (Auto) 0 % (0-3) Basophils (%) (Auto) 0 % (0-3) Neutrophils # (Auto) 13.2 x10^3/uL (1.8-7.7) Lymphocytes # (Auto) 1.3 x10^3/uL (1.0-4.8) Monocytes # (Auto) 1.4 x10^3/uL (0.0-1.1) Eosinophils # (Auto) 0.0 x10^3/uL (0.0-0.7) Basophils # (Auto) 0.1 x10^3/uL (0.0-0.2) Sodium Level 133 mmol/L (136-145) Potassium Level 5.0 mmol/L (3.5-5.1) Chloride Level 98 mmol/L (98-107) Carbon Dioxide Level 30 mmol/L (21-32) Anion Gap 5 (6-14) Blood Urea Nitrogen 42 mg/dL (8-26) Creatinine 0.7 mg/dL (0.7-1.3) Estimated GFR (Cockcroft-Gault) 145.6 BUN/Creatinine Ratio 60 (6-20) Glucose Level 113 mg/dL (70-99) Calcium Level 8.3 mg/dL (8.5-10.1) Total Bilirubin 1.3 mg/dL (0.2-1.0) Aspartate Amino Transf (AST/SGOT) 36 U/L (15-37) Alanine Aminotransferase (ALT/SGPT) 55 U/L (16-63) Alkaline Phosphatase 84 U/L (46-116) Total Protein 6.0 g/dL (6.4-8.2) Albumin 2.5 g/dL (3.4-5.0) Albumin/Globulin Ratio 0.7 (1.0-1.7) Test 03/30/19 07:50 03/30/19 12:30 O2 Saturation 92 % (92-99) Arterial Blood pH 7.44 (7.35-7.45) Arterial Blood pCO2 at Patient Temp 42 mmHg (35-46) Arterial Blood pO2 at Patient Temp 66 mmHg (75-108) Arterial Blood HCO3 28 mmol/L (21-28) Arterial Blood Base Excess 4 mmol/L (-3-3) FiO2 50 Glucose (Fingerstick) 102 mg/dL (70-99) Assessment and Plan Assessmemt and Plan Problems Medical Problems: (1) CHF exacerbation Status: Acute (2) COPD exacerbation Status: Acute (3) Hypoxia Status: Acute (4) NSTEMI (non-ST elevated myocardial infarction) Status: Acute (5) Respiratory failure Status: Acute Comment Review of Relevant I have reviewed the following items peter (where applicable) has been applied. Labs Laboratory Tests Test 03/28/19 17:56 03/29/19 00:23 03/29/19 05:30 03/29/19 05:55 Glucose (Fingerstick) 107 mg/dL (70-99) 94 mg/dL (70-99) 104 mg/dL (70-99) White Blood Count 13.9 x10^3/uL (4.0-11.0) Red Blood Count 3.95 x10^6/uL (4.30-5.70) Hemoglobin 9.7 g/dL (13.0-17.5) Hematocrit 30.8 % (39.0-53.0) Mean Corpuscular Volume 78 fL (79-100) Mean Corpuscular Hemoglobin 25 pg (25-35) Mean Corpuscular Hemoglobin Concent 31 g/dL (31-37) Red Cell Distribution Width 19.0 % (11.5-14.5) Platelet Count 278 x10^3/uL (140-400) Neutrophils (%) (Auto) 85 % (31-73) Lymphocytes (%) (Auto) 6 % (24-48) Monocytes (%) (Auto) 8 % (0-9) Eosinophils (%) (Auto) 0 % (0-3) Basophils (%) (Auto) 0 % (0-3) Neutrophils # (Auto) 11.9 x10^3/uL (1.8-7.7) Lymphocytes # (Auto) 0.9 x10^3/uL (1.0-4.8) Monocytes # (Auto) 1.1 x10^3/uL (0.0-1.1) Eosinophils # (Auto) 0.0 x10^3/uL (0.0-0.7) Basophils # (Auto) 0.0 x10^3/uL (0.0-0.2) Sodium Level 142 mmol/L (136-145) Potassium Level 5.4 mmol/L (3.5-5.1) Chloride Level 106 mmol/L (98-107) Carbon Dioxide Level 32 mmol/L (21-32) Anion Gap 4 (6-14) Blood Urea Nitrogen 57 mg/dL (8-26) Creatinine 0.7 mg/dL (0.7-1.3) Estimated GFR (Cockcroft-Gault) 145.6 Glucose Level 108 mg/dL (70-99) Calcium Level 9.0 mg/dL (8.5-10.1) Test 03/29/19 08:15 03/29/19 11:05 03/29/19 11:12 03/29/19 18:57 O2 Saturation 88 % (92-99) 91 % (92-99) Arterial Blood pH 7.45 (7.35-7.45) 7.47 (7.35-7.45) Arterial Blood pCO2 at Patient Temp 46 mmHg (35-46) 41 mmHg (35-46) Arterial Blood pO2 at Patient Temp 54 mmHg (75-108) 60 mmHg (75-108) Arterial Blood HCO3 32 mmol/L (21-28) 29 mmol/L (21-28) Arterial Blood Base Excess 7 mmol/L (-3-3) 4 mmol/L (-3-3) FiO2 50 50 Glucose (Fingerstick) 110 mg/dL (70-99) 96 mg/dL (70-99) Test 03/30/19 00:19 03/30/19 05:59 03/30/19 06:00 03/30/19 07:50 Glucose (Fingerstick) 105 mg/dL (70-99) 91 mg/dL (70-99) White Blood Count 16.1 x10^3/uL (4.0-11.0) Red Blood Count 4.21 x10^6/uL (4.30-5.70) Hemoglobin 11.0 g/dL (13.0-17.5) Hematocrit 32.5 % (39.0-53.0) Mean Corpuscular Volume 77 fL (79-100) Mean Corpuscular Hemoglobin 26 pg (25-35) Mean Corpuscular Hemoglobin Concent 34 g/dL (31-37) Red Cell Distribution Width 18.8 % (11.5-14.5) Platelet Count 316 x10^3/uL (140-400) Neutrophils (%) (Auto) 82 % (31-73) Lymphocytes (%) (Auto) 8 % (24-48) Monocytes (%) (Auto) 9 % (0-9) Eosinophils (%) (Auto) 0 % (0-3) Basophils (%) (Auto) 0 % (0-3) Neutrophils # (Auto) 13.2 x10^3/uL (1.8-7.7) Lymphocytes # (Auto) 1.3 x10^3/uL (1.0-4.8) Monocytes # (Auto) 1.4 x10^3/uL (0.0-1.1) Eosinophils # (Auto) 0.0 x10^3/uL (0.0-0.7) Basophils # (Auto) 0.1 x10^3/uL (0.0-0.2) Sodium Level 133 mmol/L (136-145) Potassium Level 5.0 mmol/L (3.5-5.1) Chloride Level 98 mmol/L (98-107) Carbon Dioxide Level 30 mmol/L (21-32) Anion Gap 5 (6-14) Blood Urea Nitrogen 42 mg/dL (8-26) Creatinine 0.7 mg/dL (0.7-1.3) Estimated GFR (Cockcroft-Gault) 145.6 BUN/Creatinine Ratio 60 (6-20) Glucose Level 113 mg/dL (70-99) Calcium Level 8.3 mg/dL (8.5-10.1) Total Bilirubin 1.3 mg/dL (0.2-1.0) Aspartate Amino Transf (AST/SGOT) 36 U/L (15-37) Alanine Aminotransferase (ALT/SGPT) 55 U/L (16-63) Alkaline Phosphatase 84 U/L (46-116) Total Protein 6.0 g/dL (6.4-8.2) Albumin 2.5 g/dL (3.4-5.0) Albumin/Globulin Ratio 0.7 (1.0-1.7) O2 Saturation 92 % (92-99) Arterial Blood pH 7.44 (7.35-7.45) Arterial Blood pCO2 at Patient Temp 42 mmHg (35-46) Arterial Blood pO2 at Patient Temp 66 mmHg (75-108) Arterial Blood HCO3 28 mmol/L (21-28) Arterial Blood Base Excess 4 mmol/L (-3-3) FiO2 50 Test 03/30/19 12:30 Glucose (Fingerstick) 102 mg/dL (70-99) Laboratory Tests Test 03/29/19 18:57 03/30/19 00:19 03/30/19 05:59 03/30/19 06:00 Glucose (Fingerstick) 96 mg/dL (70-99) 105 mg/dL (70-99) 91 mg/dL (70-99) White Blood Count 16.1 x10^3/uL (4.0-11.0) Red Blood Count 4.21 x10^6/uL (4.30-5.70) Hemoglobin 11.0 g/dL (13.0-17.5) Hematocrit 32.5 % (39.0-53.0) Mean Corpuscular Volume 77 fL (79-100) Mean Corpuscular Hemoglobin 26 pg (25-35) Mean Corpuscular Hemoglobin Concent 34 g/dL (31-37) Red Cell Distribution Width 18.8 % (11.5-14.5) Platelet Count 316 x10^3/uL (140-400) Neutrophils (%) (Auto) 82 % (31-73) Lymphocytes (%) (Auto) 8 % (24-48) Monocytes (%) (Auto) 9 % (0-9) Eosinophils (%) (Auto) 0 % (0-3) Basophils (%) (Auto) 0 % (0-3) Neutrophils # (Auto) 13.2 x10^3/uL (1.8-7.7) Lymphocytes # (Auto) 1.3 x10^3/uL (1.0-4.8) Monocytes # (Auto) 1.4 x10^3/uL (0.0-1.1) Eosinophils # (Auto) 0.0 x10^3/uL (0.0-0.7) Basophils # (Auto) 0.1 x10^3/uL (0.0-0.2) Sodium Level 133 mmol/L (136-145) Potassium Level 5.0 mmol/L (3.5-5.1) Chloride Level 98 mmol/L (98-107) Carbon Dioxide Level 30 mmol/L (21-32) Anion Gap 5 (6-14) Blood Urea Nitrogen 42 mg/dL (8-26) Creatinine 0.7 mg/dL (0.7-1.3) Estimated GFR (Cockcroft-Gault) 145.6 BUN/Creatinine Ratio 60 (6-20) Glucose Level 113 mg/dL (70-99) Calcium Level 8.3 mg/dL (8.5-10.1) Total Bilirubin 1.3 mg/dL (0.2-1.0) Aspartate Amino Transf (AST/SGOT) 36 U/L (15-37) Alanine Aminotransferase (ALT/SGPT) 55 U/L (16-63) Alkaline Phosphatase 84 U/L (46-116) Total Protein 6.0 g/dL (6.4-8.2) Albumin 2.5 g/dL (3.4-5.0) Albumin/Globulin Ratio 0.7 (1.0-1.7) Test 03/30/19 07:50 03/30/19 12:30 O2 Saturation 92 % (92-99) Arterial Blood pH 7.44 (7.35-7.45) Arterial Blood pCO2 at Patient Temp 42 mmHg (35-46) Arterial Blood pO2 at Patient Temp 66 mmHg (75-108) Arterial Blood HCO3 28 mmol/L (21-28) Arterial Blood Base Excess 4 mmol/L (-3-3) FiO2 50 Glucose (Fingerstick) 102 mg/dL (70-99) Microbiology 03/16/19 - Final, Complete 03/16/19 - Final, Complete 03/16/19 Gram Stain Evaluation - Final, Complete 03/16/19 Sputum Culture - Final, Complete 03/16/19 Sputum Result 1 - Final, Complete 03/16/19 Blood Culture - Final, Complete NO GROWTH AFTER 5 DAYS 03/09/19 Urine Culture - Final, Complete 03/09/19 Urine Culture Result 1 (WIL) - Final, Complete Medications Current Medications Albuterol/ Ipratropium (Duoneb) 3 ml 1X ONCE NEB Last administered on 03/09/19at 21:21; Start 03/09/19 at 21:30; Stop 03/09/19 at 21:31; Status DC Dexamethasone Sodium Phosphate (Decadron) 10 mg 1X ONCE IV Last administered on 03/09/19at 22:29; Start 03/09/19 at 22:00; Stop 03/09/19 at 22:01; Status DC Propofol 100 ml @ 0 mls/hr CONT PRN IV SEE PROTOCOL Last administered on 03/10/19at 07:19; Start 03/09/19 at 22:30; Stop 03/10/19 at 07:28; Status DC Fentanyl Citrate (Fentanyl 2ml Vial) 50 mcg PRN Q1HR PRN IV SEE COMMENTS; Start 03/09/19 at 22:30; Stop 03/10/19 at 07:28; Status DC Chlorhexidine Gluconate (Peridex) 15 ml BID MM Last administered on 03/30/19at 09:11; Start 03/10/19 at 09:00 Famotidine (Pepcid Vial) 20 mg BID IVP Last administered on 03/30/19at 09:11; Start 03/10/19 at 09:00 Propofol 50 ml @ As Directed STK-MED ONCE IV ; Start 03/09/19 at 22:28; Stop 03/09/19 at 22:28; Status DC Albuterol/ Ipratropium (Duoneb) 3 ml 1X ONCE NEB Last administered on 03/10/19at 02:04; Start 03/09/19 at 23:00; Stop 03/09/19 at 23:01; Status DC Albuterol/ Ipratropium (Duoneb) 3 ml 1X ONCE NEB Last administered on 03/10/19at 02:04; Start 03/09/19 at 23:00; Stop 03/09/19 at 23:01; Status DC Fentanyl Citrate (Fentanyl 2ml Vial) 100 mcg 1X ONCE IV Last administered on 03/09/19at 23:31; Start 03/09/19 at 23:30; Stop 03/09/19 at 23:31; Status DC Bumetanide (Bumex) 1 mg 1X ONCE IV Last administered on 03/10/19at 00:21; Start 03/10/19 at 00:00; Stop 03/10/19 at 00:01; Status DC Heparin Sodium (Porcine) (Heparin Sodium) 4,000 unit 1X ONCE IV Last administered on 03/10/19at 00:31; Start 03/10/19 at 00:00; Stop 03/10/19 at 00:01; Status DC Heparin Sodium/ Dextrose 500 ml @ 0 mls/hr CONT PRN IV PER PROTOCOL Last administered on 03/10/19at 23:34; Start 03/09/19 at 23:45; Stop 03/11/19 at 16:13; Status DC Heparin Sodium (Porcine) (Heparin Sodium) 5,500 unit PRN Q6HRS PRN IV FOR UFH LEVEL LESS THAN 0.2 Last administered on 03/11/19at 00:57; Start 03/09/19 at 23:45; Stop 03/11/19 at 16:13; Status DC Aspirin (Aspirin Rectal Supp) 300 mg 1X ONCE SD Last administered on 03/10/19at 03:42; Start 03/10/19 at 00:00; Stop 03/10/19 at 00:01; Status DC Propofol 50 ml @ As Directed STK-MED ONCE IV ; Start 03/09/19 at 23:38; Stop 03/09/19 at 23:38; Status DC Propofol 50 ml @ As Directed STK-MED ONCE IV ; Start 03/09/19 at 23:38; Stop 03/09/19 at 23:38; Status DC Piperacillin Sod/ Tazobactam Sod 4.5 gm/Sodium Chloride 100 ml @ 200 mls/hr 1X ONCE IV Last administered on 03/10/19at 05:19; Start 03/10/19 at 00:30; Stop 03/10/19 at 00:59; Status DC Propofol 50 ml @ As Directed STK-MED ONCE IV ; Start 03/10/19 at 00:51; Stop 03/10/19 at 00:51; Status DC Propofol 50 ml @ As Directed STK-MED ONCE IV ; Start 03/10/19 at 01:14; Stop 03/10/19 at 01:15; Status DC Fentanyl Citrate (Fentanyl 2ml Vial) 100 mcg 1X ONCE IV Last administered on 03/10/19at 01:26; Start 03/10/19 at 01:45; Stop 03/10/19 at 01:46; Status DC Clonidine HCl (Catapres) 0.1 mg 1X ONCE PO ; Start 03/10/19 at 01:30; Stop 03/10/19 at 01:34; Status DC Midazolam HCl (Versed) 5 mg 1X ONCE IV Last administered on 03/10/19at 01:28; Start 03/10/19 at 01:30; Stop 03/10/19 at 01:34; Status DC Propofol 50 ml @ As Directed STK-MED ONCE IV ; Start 03/10/19 at 02:08; Stop 03/10/19 at 02:09; Status DC Propofol 50 ml @ As Directed STK-MED ONCE IV ; Start 03/10/19 at 02:36; Stop 03/10/19 at 02:36; Status DC Rocuronium [place] (Zemuron) 50 mg STK-MED ONCE .ROUTE ; Start 03/10/19 at 05:15; Stop 03/10/19 at 05:15; Status DC Etomidate (Amidate) 20 mg STK-MED ONCE IV ; Start 03/10/19 at 05:15; Stop 03/10/19 at 05:16; Status DC Fentanyl Citrate 30 ml @ 0 mls/hr CONT PRN IV SEE PROTOCOL Last administered on 03/30/19at 13:20; Start 03/10/19 at 07:30 Propofol 100 ml @ 0 mls/hr CONT PRN IV SEE PROTOCOL Last administered on 03/30/19at 17:17; Start 03/10/19 at 07:30 Fentanyl Citrate (Fentanyl 2ml Vial) 25 mcg PRN Q1HR PRN IV SEE COMMENTS; Start 03/10/19 at 07:30 Fentanyl Citrate (Fentanyl 2ml Vial) 50 mcg PRN Q1HR PRN IV SEE COMMENTS; Start 03/10/19 at 07:30 Artificial Tears (Artificial Tears) 1 drop PRN Q1HR PRN OU DRY EYE, 1ST CHOICE Last administered on 03/13/19at 13:32; Start 03/10/19 at 07:30 Famotidine (Pepcid Vial) 20 mg BID IVP ; Start 03/10/19 at 09:00; Status UNV Morphine Sulfate (Morphine Sulfate) 2 mg PRN Q1HR PRN IV SEE COMMENTS. Last administered on 03/25/19at 09:18; Start 03/10/19 at 07:30 Morphine Sulfate (Morphine Sulfate) 4 mg PRN Q1HR PRN IV SEE COMMENTS.; Start 03/10/19 at 07:30 Midazolam HCl 100 ml @ 0 mls/hr CONT PRN IV SEE PROTOCOL Last administered on 03/30/19at 14:32; Start 03/10/19 at 07:30 Levofloxacin/ Dextrose (Levaquin Per Pharmacy) 1 each PRN DAILY PRN MC SEE COMMENTS; Start 03/10/19 at 08:15; Stop 03/14/19 at 09:25; Status DC Albuterol/ Ipratropium (Duoneb) 3 ml RTQID NEB Last administered on 03/30/19 16:18; Start 03/10/19 at 12:00 Sodium Chloride 1,000 ml @ 100 mls/hr Q10H IV Last administered on 03/10/19 23:34; Start 03/10/19 at 08:15; Stop 03/11/19 at 16:02; Status DC Amlodipine Besylate (Norvasc) 5 mg DAILY PO Last administered on 03/10/19 09:13; Start 03/10/19 at 09:00; Stop 03/10/19 at 10:04; Status DC Hydrochlorothiazide (Hydrodiuril) 25 mg DAILY PO Last administered on 03/10/19 09:13; Start 03/10/19 at 09:00; Stop 03/10/19 at 10:04; Status DC Lisinopril (Prinivil) 5 mg DAILY PO Last administered on 03/10/19 09:13; Start 03/10/19 at 09:00; Stop 03/10/19 at 10:04; Status DC Levofloxacin/ Dextrose 100 ml @ 100 mls/hr Q24H IV Last administered on 03/14/19 08:10; Start 03/10/19 at 09:00; Stop 03/14/19 at 09:25; Status DC Aspirin (Amanda Aspirin) 325 mg 1X ONCE PO Last administered on 03/10/19at 10:55; Start 03/10/19 at 10:30; Stop 03/10/19 at 10:31; Status DC Aspirin (Children'S Aspirin) 81 mg DAILYWBKFT PO Last administered on 9/23/19at 09:11; Start 03/11/19 at 08:00 Amlodipine Besylate (Norvasc) 10 mg DAILY PO Last administered on 03/11/19at 09:37; Start 03/11/19 at 09:00; Stop 03/11/19 at 12:50; Status DC Hydralazine HCl (Apresoline Inj) 10 mg PRN Q4HRS PRN IVP ELEVATED BP, SEE COMMENTS; Start 03/10/19 at 10:15; Stop 03/12/19 at 09:37; Status DC Furosemide (Lasix) 40 mg DAILY IVP Last administered on 03/11/19at 09:37; Start 03/10/19 at 11:00; Stop 03/11/19 at 11:24; Status DC Insulin Human Lispro (HumaLOG) 0-9 UNITS TIDWMEALS SQ ; Start 03/10/19 at 12:00; Stop 03/10/19 at 17:57; Status DC Dextrose (Dextrose 50%-Water Syringe) 12.5 gm PRN Q15MIN PRN IV SEE COMMENTS; Start 03/10/19 at 11:15; Stop 03/12/19 at 16:47; Status DC Dextrose 250 ml PRN Q15MIN PRN IV SEE COMMENTS; Start 03/10/19 at 11:15; Stop 03/10/19 at 11:05; Status DC Iohexol (Omnipaque 350 Mg/ml) 100 ml 1X ONCE IV Last administered on 03/10/19at 14:05; Start 03/10/19 at 11:45; Stop 03/10/19 at 11:47; Status DC Info (CONTRAST GIVEN -- Rx MONITORING) 1 each PRN DAILY PRN MC SEE COMMENTS; Start 03/10/19 at 11:45; Stop 03/12/19 at 11:44; Status DC Piperacillin Sod/ Tazobactam Sod (Zosyn Per Pharmacy) 1 each PRN DAILY PRN MC SEE COMMENTS; Start 03/10/19 at 11:45; Stop 03/25/19 at 08:36; Status DC Vancomycin HCl (Vanco Per Pharmacy) 1 each PRN DAILY PRN MC SEE COMMENTS Last administered on 03/11/19at 09:42; Start 03/10/19 at 11:45; Stop 03/11/19 at 13:57; Status DC Vancomycin HCl 2 gm/Sodium Chloride 500 ml @ 250 mls/hr 1X ONCE IV Last administered on 03/10/19at 12:41; Start 03/10/19 at 13:00; Stop 03/10/19 at 14:59; Status DC Piperacillin Sod/ Tazobactam Sod 3.375 gm/Sodium Chloride 50 ml @ 100 mls/hr Q6HRS IV Last administered on 03/24/19at 05:45; Start 03/10/19 at 12:30; Stop 03/24/19 at 07:24; Status DC Vancomycin HCl 1.75 gm/Sodium Chloride 500 ml @ 250 mls/hr Q12H IV Last administered on 03/11/19at 12:43; Start 03/11/19 at 01:00; Stop 03/11/19 at 13:57; Status DC Vancomycin HCl (Vancomycin Trough Level) 1 each 1X ONCE MC ; Start 03/12/19 at 12:30; Stop 03/12/19 at 12:31; Status Cancel Insulin Human Lispro (HumaLOG) 0-9 UNITS Q6HRS SQ ; Start 03/11/19 at 00:00; Stop 03/27/19 at 09:06; Status DC Magnesium Sulfate/ Dextrose 100 ml @ 50 mls/hr DAILY IV Last administered on 03/11/19at 09:28; Start 03/11/19 at 09:00; Stop 03/14/19 at 08:59; Status DC Potassium Phosphate 27.2 mmol/Sodium Chloride 259.0667 ml @ 64.753 m... 1X ONCE IV Last administered on 03/11/19at 09:28; Start 03/11/19 at 10:00; Stop 03/11/19 at 14:00; Status DC Potassium Phosphate 27.2 mmol/Sodium Chloride 259.0667 ml @ 64.753 m... 1X ON CE IV ; Start 03/11/19 at 14:00; Stop 03/11/19 at 18:00; Status DC Lorazepam (Ativan Inj) 1 mg PRN Q1HR PRN IV ANXIETY Last administered on 03/14/19at 16:32; Start 03/11/19 at 11:00; Stop 03/19/19 at 10:31; Status DC Sodium Chloride 1,000 ml @ 1,000 mls/hr 1X ONCE IV Last administered on 03/11/19at 12:06; Start 03/11/19 at 11:30; Stop 03/11/19 at 12:29; Status DC Norepinephrine Bitartrate 250 ml @ 27.837 mls/ hr CONT PRN IV SEE I/O RECORD Last administered on 03/13/19at 04:13; Start 03/11/19 at 13:00; Stop 03/26/19 at 09:22; Status DC Hydralazine HCl (Apresoline Inj) 10 mg PRN Q4HRS PRN IVP ELEVATED BP, SEE COMMENTS Last administered on 03/22/19at 06:13; Start 03/11/19 at 13:00 Linezolid/Dextrose 300 ml @ 300 mls/hr Q12HR IV Last administered on 03/22/19at 21:38; Start 03/11/19 at 21:00; Stop 03/23/19 at 07:48; Status DC Potassium Chloride/Water 50 ml @ 50 mls/hr Q1H IV Last administered on 03/11/19at 17:28; Start 03/11/19 at 16:00; Stop 03/11/19 at 17:59; Status DC Heparin Sodium (Porcine) (Heparin Sodium) 5,000 unit Q8HRS SQ Last administered on 03/30/19at 14:38; Start 03/11/19 at 22:00 Multi-Ingred Cream/Lotion/Oil/ Oint (Artificial Tears Eye Ointment) 1 zuri PRN Q1HR PRN OU DRY EYE; Start 03/12/19 at 09:00 Potassium Chloride/Water 50 ml @ 50 mls/hr 1X ONCE IV Last administered on 03/12/19at 09:44; Start 03/12/19 at 10:00; Stop 03/12/19 at 10:59; Status DC Potassium Chloride/Water 50 ml @ 50 mls/hr 1X ONCE IV ; Start 03/12/19 at 10:30; Stop 03/12/19 at 11:31; Status DC Insulin Human Lispro (HumaLOG) 0-9 UNITS TIDWMEALS SQ ; Start 03/12/19 at 17:00; Stop 03/12/19 at 16:24; Status DC Dextrose (Dextrose 50%-Water Syringe) 12.5 gm PRN Q15MIN PRN IV SEE COMMENTS; Start 03/12/19 at 16:15 Dextrose 250 ml PRN Q15MIN PRN IV SEE COMMENTS; Start 03/12/19 at 16:15; Stop 03/27/19 at 08:59; Status DC Insulin Human Lispro (HumaLOG) 0-9 UNITS Q6HRS SQ Last administered on 03/26/19at 00:37; Start 03/12/19 at 18:00 Dexmedetomidine HCl 400 mcg/ Sodium Chloride 100 ml @ 0 mls/hr CONT PRN IV ANXIETY / AGITATION Last administered on 03/21/19at 04:33; Start 03/12/19 at 20:30; Stop 03/26/19 at 09:22; Status DC Sodium Chloride 500 ml @ 500 mls/hr 1X PRN PRN IV see comments Last administered on 03/12/19at 23:22; Start 03/12/19 at 20:30; Stop 03/30/19 at 14:05; Status DC Atropine Sulfate (ATROPINE 0.5mg SYRINGE) 0.5 mg PRN Q5MIN PRN IV SEE COMMENTS; Start 03/12/19 at 20:30; Stop 03/30/19 at 14:06; Status DC Vecuronium [place] (Norcuron Bolus) 10 mg PRN Q1HR PRN IV OVERBREATHING VENT Last administered on 03/25/19at 10:49; Start 03/13/19 at 07:30 Perflutren Protein Type A Microsphe (Optison) 0.66 mg STK-MED ONCE IV ; Start 03/13/19 at 09:08; Stop 03/13/19 at 09:08; Status DC Perflutren Protein Type A Microsphe (Optison) 0.66 mg 1X ONCE IV Last administered on 03/13/19at 09:40; Start 03/13/19 at 09:15; Stop 03/13/19 at 09:16; Status DC Furosemide (Lasix) 40 mg 1X ONCE IVP Last administered on 03/13/19at 13:32; Start 03/13/19 at 10:30; Stop 03/13/19 at 10:31; Status DC Daptomycin 1320 mg/Sodium Chloride 50 ml @ 100 mls/hr ONCE ONCE IV Last administered on 03/15/19at 13:53; Start 03/15/19 at 13:00; Stop 03/16/19 at 09:33; Status DC Daptomycin 1340 mg/Sodium Chloride 50 ml @ 100 mls/hr Q24H IV ; Start 03/16/19 at 08:45; Status UNV Daptomycin 1340 mg/Sodium Chloride 50 ml @ 100 mls/hr Q24H IV ; Start 03/16/19 at 09:00; Status Cancel Daptomycin 830 mg/ Sodium Chloride 50 ml @ 100 mls/hr Q24H IV Last administered on 03/18/19at 15:03; Start 03/16/19 at 14:00; Stop 03/19/19 at 07:41; Status DC Methylprednisolone Sodium Succinate (SOLU-Medrol 125MG VIAL) 100 mg Q8HRS IV Last administered on 03/23/19at 05:54; Start 03/16/19 at 12:00; Stop 03/23/19 at 12:03; Status DC Furosemide (Lasix) 40 mg 1X ONCE IVP Last administered on 03/16/19at 16:46; Start 03/16/19 at 16:30; Stop 03/16/19 at 16:31; Status DC Fentanyl Citrate (Fentanyl 600 Mcg/30 ml [employer]) 600 mcg STK-MED ONCE IV ; Start 03/13/19 at 17:00; Stop 03/17/19 at 11:02; Status DC Furosemide 100 mg/ Sodium Chloride 100 ml @ 5 mls/hr CONT PRN IV SEE I/O RECORD Last administered on 03/18/19at 00:20; Start 03/17/19 at 15:45; Stop 03/18/19 at 10:36; Status DC Furosemide 100 mg/ Sodium Chloride 100 ml @ 5 mls/hr CONT PRN IV SEE I/O RECORD Last administered on 03/21/19at 08:34; Start 03/18/19 at 10:45; Stop 03/21/19 at 12:57; Status DC Lorazepam (Ativan Inj) 2 mg PRN Q1HR PRN IV ANXIETY Last administered on 03/20/19at 17:11; Start 03/19/19 at 10:45 Lisinopril (Prinivil) 5 mg DAILY PO Last administered on 03/30/19at 09:11; Start 03/21/19 at 11:30 Amlodipine Besylate (Norvasc) 10 mg DAILY PO Last administered on 03/30/19at 09: 11; Start 03/21/19 at 11:30 Furosemide 100 mg/ Sodium Chloride 100 ml @ 10 mls/hr CONT PRN IV SEE I/O RECORD Last administered on 03/22/19at 05:05; Start 03/21/19 at 16:00; Stop 03/22/19 at 12:39; Status DC Scopolamine (Transderm-Scop) 1 patch Q3DAYS TD Last administered on 03/28/19at 08:16; Start 03/22/19 at 11:00 Furosemide 100 mg/ Sodium Chloride 100 ml @ 5 mls/hr CONT PRN IV SEE I/O RECORD Last administered on 03/22/19at 21:38; Start 03/22/19 at 12:45; Stop 03/23/19 at 17:48; Status DC Methylprednisolone Sodium Succinate (SOLU-Medrol 125MG VIAL) 50 mg Q8HRS IV Last administered on 03/27/19at 05:30; Start 03/23/19 at 14:00; Stop 03/27/19 at 11:20; Status DC Insulin Human Lispro (HumaLOG) 0-5 UNITS TIDWMEALS SQ ; Start 03/27/19 at 09:30; Status Cancel Dextrose (Dextrose 50%-Water Syringe) 12.5 gm PRN Q15MIN PRN IV SEE COMMENTS; Start 03/27/19 at 09:00; Status Cancel Dextrose 250 ml PRN Q15MIN PRN IV SEE COMMENTS; Start 03/27/19 at 09:00; Status Cancel Methylprednisolone Sodium Succinate (SOLU-Medrol 40MG VIAL) 30 mg Q8HRS IV Last administered on 03/30/19at 14:38; Start 03/27/19 at 14:00 Furosemide (Lasix) 40 mg 1X ONCE IVP Last administered on 03/27/19at 11:58; Start 03/27/19 at 12:00; Stop 03/27/19 at 12:01; Status DC Furosemide (Lasix) 40 mg 1X ONCE IVP Last administered on 03/28/19at 10:15; Start 03/28/19 at 09:30; Stop 03/28/19 at 09:46; Status DC Furosemide (Lasix) 40 mg 1X ONCE IVP Last administered on 03/29/19at 09:44; Start 03/29/19 at 09:30; Stop 03/29/19 at 09:31; Status DC Sodium Chloride 1,000 ml @ 1,000 mls/hr 1X ONCE IV Last administered on 03/29/19at 20:41; Start 03/29/19 at 20:30; Stop 03/29/19 at 21:29; Status DC Norepinephrine Bitartrate 250 ml @ 38.554 mls/ hr CONT PRN IV SEE I/O RECORD; Start 03/29/19 at 20:30 Furosemide (Lasix) 40 mg 1X ONCE IVP Last administered on 03/30/19at 10:42; Start 03/30/19 at 10:15; Stop 03/30/19 at 10:16; Status DC Active Scripts Active Norvasc (Amlodipine Besylate) 5 Mg Tablet 1 Tab PO DAILY Lisinopril 5 Mg Tablet 1 Tab PO DAILY Reported Hydrochlorothiazide Tablet (Hydrochlorothiazide) 25 Mg Tablet 25 Mg PO DAILY Vitals/I & O Vital Sign - Last 24 Hours 03/29/19 03/29/19 03/29/19 03/29/19 18:10 19:00 19:27 20:00 Pulse 69 66 Resp 15 12 12 B/P (MAP) 105/68 (80) 103/65 (78) Pulse Ox 97 96 96 O2 Delivery Ventilator Ventilator Mechanical Ventilator O2 Flow Rate 93.0 03/29/19 03/29/19 03/29/19 03/29/19 20:00 20:22 21:00 22:00 Temp 98.3 98.3 Pulse 56 76 71 Resp 12 12 12 B/P (MAP) 102/67 (79) 118/70 (86) 122/70 (87) Pulse Ox 96 96 96 97 O2 Delivery Ventilator Ventilator Ventilator Ventilator 03/29/19 03/29/19 03/29/19 03/30/19 23:00 23:59 23:59 00:12 Temp 97.9 97.9 Pulse 68 72 Resp 12 12 B/P (MAP) 121/56 (77) 122/64 (83) Pulse Ox 96 98 96 O2 Delivery Ventilator Ventilator Mechanical Ventilator Ventilator 03/30/19 03/30/19 03/30/19 03/30/19 01:00 01:31 02:00 02:10 Pulse 78 66 Resp 12 16 12 B/P (MAP) 118/56 (76) 134/69 (90) Pulse Ox 96 97 96 97 O2 Delivery Ventilator Ventilator Ventilator Ventilator 03/30/19 03/30/19 03/30/19 03/30/19 03:00 03:56 03:59 04:04 Temp 98.4 98.4 Pulse 72 99 Resp 14 20 B/P (MAP) 132/65 (87) 156/94 (114) Pulse Ox 98 99 99 O2 Delivery Ventilator Mechanical Ventilator Ventilator O2 Flow Rate 93.0 03/30/19 03/30/19 03/30/19 03/30/19 04:04 04:59 05:00 06:01 Pulse 95 96 Resp 16 20 B/P (MAP) 148/68 (94) 181/96 (124) Pulse Ox 99 94 100 100 O2 Delivery Ventilator Ventilator Ventilator O2 Flow Rate 93.0 03/30/19 03/30/19 03/30/19 03/30/19 07:00 07:50 08:00 08:00 Temp 98.3 98.3 Pulse 90 88 Resp 34 33 B/P (MAP) 155/85 (108) 149/84 (105) Pulse Ox 97 97 98 O2 Delivery Ventilator Ventilator Ventilator Mechanical Ventilator 03/30/19 03/30/19 03/30/19 03/30/19 09:00 09:11 09:11 09:45 Pulse 74 74 74 Resp 16 B/P (MAP) 141/73 (95) 111/64 111/64 Pulse Ox 99 98 O2 Delivery Ventilator Ventilator 03/30/19 03/30/19 03/30/19 03/30/19 10:00 11:00 11:45 12:00 Pulse 78 78 Resp 16 16 B/P (MAP) 140/80 (100) 137/76 (96) Pulse Ox 99 99 99 O2 Delivery Ventilator Ventilator Ventilator Mechanical Ventilator 03/30/19 03/30/19 03/30/19 03/30/19 12:00 13:00 13:20 14:00 Temp 98.0 98.0 Pulse 68 64 67 Resp 16 16 15 15 B/P (MAP) 110/69 (83) 112/70 (84) 117/63 (81) Pulse Ox 99 98 97 94 O2 Delivery Ventilator Ventilator Ventilator Ventilator 03/30/19 03/30/19 03/30/19 03/30/19 14:00 15:00 16:00 16:00 Temp 98.1 98.1 Pulse 64 76 Resp 14 16 B/P (MAP) 114/59 (77) 165/89 (114) Pulse Ox 97 97 95 O2 Delivery Ventilator Ventilator Ventilator Mechanical Ventilator 03/30/19 03/30/19 16:18 17:00 Pulse 59 Resp 15 B/P (MAP) 131/80 (97) Pulse Ox 97 99 O2 Delivery Ventilator Ventilator Intake and Output 03/29/19 03/29/19 03/30/19 15:00 23:00 07:00 Intake Total 400 ml 2474.08 ml 2434.1 ml Output Total 3065 ml 990 ml 825 ml Balance -2665 ml 1484.08 ml 1609.1 ml ERROL CASILLAS MD Mar 30, 2019 17:49
[2019-03-31] VITALS (23 sets, daily range): BP systolic 89–185; BP diastolic 50–111
[2019-03-31] MEDS: PROPOFOL 100 ML IV PRN ×11 (00:23→23:00)
[2019-03-31] MEDS: MIDAZOLAM 100mg/100ml NS BAG 100 ML IV PRN ×2 (00:42→10:37)
[2019-03-31] MEDS: methylPREDNISolone SOD SUCC PF 40 MG/ML VIAL. IV SCH ×3 (05:55→21:35)
[2019-03-31] MEDS: HEPARIN for SUB-Q USE 5,000 UNIT/ML VIAL. SQ SCH ×3 (05:56→21:36)
[2019-03-31] MEDS: INSULIN LISPRO 300 UNITS/3 ML VIAL. SQ SCH ×3 (06:00→17:26)
[2019-03-31] MEDS: IPRATRPIUM/ALBUTEROL 0.5/2.5MG 3 ML NEBU. NEB SCH ×4 (07:47→19:52)
[2019-03-31 08:04] LABS: BASE EXCESS ABG -1 mmol/L (-3-3); HCO3 ABG 23 mmol/L (21-28); PCO2 ABG 34 mmHg (35-46); PO2 ABG 66 mmHg (75-108); SAT O2 ABG 92 % (92-99)
[2019-03-31] MEDS: CHLORHEXIDINE 0.12% 15 ML MOUTHWASH. MM SCH ×2 (08:38→21:36)
[2019-03-31] MEDS: SCOPOLAMINE 1.5MG PATCH. TD SCH (08:38)
[2019-03-31] MEDS: amLODIPine BESYLATE 10 MG TABLET PO SCH (08:38)
[2019-03-31] MEDS: ASPIRIN CHEWABLE 81 MG TABLET. PO SCH (08:38)
[2019-03-31] MEDS: FAMOTIDINE 20 MG/2 ML VIAL IVP SCH ×2 (08:38→21:35)
[2019-03-31] MEDS: LISINOPRIL 5 MG TABLET. PO SCH (08:39)
[2019-03-31 08:58] LABS: HEMATOCRIT 33.1 % (39.0-53.0); HEMOGLOBIN 10.4 g/dL (13.0-17.5); RED BLOOD COUNT 4.33 x10^6/uL (4.30-5.70); RED CELL DISTRIBUTION WIDTH 18.8 % (11.5-14.5); WHITE BLOOD COUNT 17.2 x10^3/uL (4.0-11.0)
[2019-03-31 09:17] LABS: ALBUMIN 2.6 g/dL (3.4-5.0); ALBUMIN/GLOBULIN RATIO 0.7 (1.0-1.7); CALCIUM 9.5 mg/dL (8.5-10.1); CREATININE 0.6 mg/dL (0.7-1.3); POTASSIUM 4.6 mmol/L (3.5-5.1); TOTAL BILIRUBIN 1.1 mg/dL (0.2-1.0); TOTAL PROTEIN 6.2 g/dL (6.4-8.2)
--- NOTE | 2019-03-31 09:52 | PDOC ---
[facility] [facility] PROGRESS NOTE Chief Complaint Chief Complaint Acute Hypercapnic Respiratory Failure/ARDS due to vaping Pulmonary Edema Bilateral Lung Infiltrates Obstructive sleep apnea OSMAN Increased Troponin Morbid Obesity Pulmonary HTN Tobacco use History of Present Illness History of Present Illness 03/31/19 Pt was seen and examined in ICU Pt is sedated and on ventilation (Vent settings: AC/16/750/40% 5 PEEP) Chart and labs reviewed Responded to request to blink O2 saturation was 97% 03/26/19 Pt seen and examined in ICU Pt is sedated and on ventilation (Vent settings: AC/16/600/60% 10 PEEP) Pt heart rate was in 50s Chart and labs reviewed DW RN 03/25/19 Pt seen and examined in the ICU Pt is sedated and on ventilation (Vent settings: AC/16/600/65% 11 PEEP) Chart and labs reviewed JUANA RN 03/24/19 Pt seen and examined in the ICU Pt is on ventilation (Vent settings: AC/16/600/70% 13 PEEP) Chart and labs reviewed JUANA RN 03/23/19 Pt seen/examined in the ICU Pt is still on ventilation (Vent settings: AC/16/600/80% 13 PEEP) JUANA RN Chart and labs reviewed 03/22/19 Pt seen/examined in the ICU Pt is still on ventilation (Vent settings: AC/16/600/80% 13 PEEP) JUANA RN Chart and labs reviewed Chart Reviewed 03/21/19 Pt seen and examined in the ICU Pt still on ventilation (vent settings: AC/16/600/75% 13 PEEP) JUANA Pulm BICYCLE FITTER regarding starting patient on home medications for HTN 9�13�2019 Patient seen and examined in the ICU He is still ventilated AC/16/600/80% 14 PEEP 03/19/19 Pt seen and examined in ICU on vent (vent settings: AC/16/600/85% 14 PEEP) Pt responsive to voice In mitts for pt safety Pt sedated with versed, fentanyl, and precedex Rectal tube intact Fontana to BSD Has OG tube to LIS; ET tube placed JUANA RN 03/18/19 Pt seen and examined in ICU on vent (vent settings: AC/16/00/100% 14 PEEP) Pt sedated with versed, fentanyl, and precedex Rectal tube placed Fontana to BSD Has OG tube to LIS; ET tube placed DW RN Chart reviewed 03/17/19 Pt seen and examined in ICU on vent (AC/16/600/100 14peep) Pt has rectal tube and fontana to BSD Sedated with versed, fentanyl, and precedex Pt has ET tube and OG tube to LIS JUANA RN DW outsole caser Chart reviewed Vitals/I&O Vitals/I&O: Vital Signs Date Time Temp Pulse Resp B/P (MAP) Pulse Ox O2 Delivery O2 Flow Rate FiO2 03/31/19 08:40 16 98 Ventilator 03/31/19 08:40 82 181/95 03/31/19 08:00 97.6 97.6 03/31/19 06:10 93.0 I & O 0 03/30/19 03/30/19 03/31/19 15:00 23:00 07:00 Intake Total 400 ml 400 ml 1646 ml Output Total 1965 ml 2205 ml 1700 ml Balance -1565 ml -1805 ml -54 ml Physical Exam Physical Exam: GENERAL: Orally intubated/ sedated - lightly, HEENT: opened eyes Pupils equal, nml conj OGT/ETT NECK: Supple LUNGS: dec bs at bases HEART: S1 and S2, regular. ABDOMEN: Obese, soft, +BS : Fontana in place fecal tube in place EXTREMITIES: Trace edema - MITTS SKIN: Chronic stasis dermatitis on the lower extremity. NEUROLOGIC: Sedated IVS; Old RIJ site clean. RUE - PICC clean General: No acute distress, Other (short neck , Mallampati 4 ON VENT) Heart: Regular rate (SR), Other (distante heart sounds) Lungs: Other (decrease bs) Abdomen: Normal bowel sounds, Soft, No tenderness, No hepatosplenomegaly, No masses Extremities: No clubbing, No cyanosis, No edema, Normal pulses, No tenderness/swelling Skin: No rashes, No breakdown, No significant lesion Labs Labs: Laboratory Tests Test 03/30/19 12:30 03/30/19 18:32 03/30/19 23:56 03/31/19 06:00 Glucose (Fingerstick) 102 mg/dL (70-99) 116 mg/dL (70-99) 104 mg/dL (70-99) 93 mg/dL (70-99) Test 03/31/19 08:45 White Blood Count 17.2 x10^3/uL (4.0-11.0) Red Blood Count 4.33 x10^6/uL (4.30-5.70) Hemoglobin 10.4 g/dL (13.0-17.5) Hematocrit 33.1 % (39.0-53.0) Mean Corpuscular Volume 76 fL (79-100) Mean Corpuscular Hemoglobin 24 pg (25-35) Mean Corpuscular Hemoglobin Concent 31 g/dL (31-37) Red Cell Distribution Width 18.8 % (11.5-14.5) Platelet Count 312 x10^3/uL (140-400) Sodium Level 138 mmol/L (136-145) Potassium Level 4.6 mmol/L (3.5-5.1) Chloride Level 102 mmol/L (98-107) Carbon Dioxide Level 30 mmol/L (21-32) Anion Gap 6 (6-14) Blood Urea Nitrogen 41 mg/dL (8-26) Creatinine 0.6 mg/dL (0.7-1.3) Estimated GFR (Cockcroft-Gault) 174.0 BUN/Creatinine Ratio 68 (6-20) Glucose Level 114 mg/dL (70-99) Calcium Level 9.5 mg/dL (8.5-10.1) Total Bilirubin 1.1 mg/dL (0.2-1.0) Aspartate Amino Transf (AST/SGOT) 26 U/L (15-37) Alanine Aminotransferase (ALT/SGPT) 54 U/L (16-63) Alkaline Phosphatase 99 U/L (46-116) Total Protein 6.2 g/dL (6.4-8.2) Albumin 2.6 g/dL (3.4-5.0) Albumin/Globulin Ratio 0.7 (1.0-1.7) Review of Systems Review of Systems: No nausea, no vomiting No headache, no loss of vision Assessment and Plan Assessmemt and Plan Problems Medical Problems: (1) CHF exacerbation Status: Acute (2) COPD exacerbation Status: Acute (3) Hypoxia Status: Acute (4) NSTEMI (non-ST elevated myocardial infarction) Status: Acute (5) Respiratory failure Status: Acute Assessment ARDS due to vaping Pulmonary edema Bilateral lung infiltrates Obstructive sleep apnea Pulmonary HTN Obesity Plan ICU monitoring DVT prophylaxis Continue vent weaning Appreciate input from pulmonology OG feeds Home meds DNR Comment Review of Relevant I have reviewed the following items peter (where applicable) has been applied. Medications: Current Medications Medications (Trade) Dose Ordered Sig/Stefanie Route PRN Reason Start Time Stop Time Status Last Admin Dose Admin Furosemide (Lasix) 40 mg 1X ONCE IVP 03/30/19 10:15 03/30/19 10:16 DC 03/30/19 10:42 TRICIA NAVA III DO Mar 31, 2019 09:52
[2019-03-31 09:53] LABS: FIO2 ABG 40
[2019-03-31] MEDS: hydrALAZINE 20 MG/ML VIAL. IVP PRN (10:50)
--- NOTE | 2019-03-31 11:14 | NUR ---
Patient taken off sedation at beginning of shift, placed on CPAP trial 06/11 at 0930. Patient's RR increased to 35-40 bpm. Trial terminated after 15 min. FiO2 increased to 45% per Dr. Conley. See EMAR, VS, Assessments.
--- NOTE | 2019-03-31 12:21 | PDOC ---
PULMONARY PROGRESS NOTES Subjective Patient with respiratory failure secondary to ARDS from vaping. remains on vent, sedated on fentanyl, versed, and propofol-- Ventilator support decreasing, now on 40% FIO2, 5 of PEEP .had paradoxical breathing once sedation was off Vitals Vital Signs Date Time Temp Pulse Resp B/P (MAP) Pulse Ox O2 Delivery O2 Flow Rate FiO2 03/31/19 11:25 16 96 Ventilator 03/31/19 11:00 106 185/104 (131) 03/31/19 08:00 97.6 97.6 03/31/19 06:10 93.0 Comments unable to obtain 2/2 vent/sedation. morbidly obese Lungs: Other (decrease bs) Cardiovascular: S1, S2 Abdomen: Soft, Non-tender, Other (obese) Extremities: Other (lymphedema BLE ) Skin: Warm, Dry Labs Laboratory Tests Test 03/29/19 18:57 03/30/19 00:19 03/30/19 05:59 03/30/19 06:00 Glucose (Fingerstick) 96 mg/dL (70-99) 105 mg/dL (70-99) 91 mg/dL (70-99) White Blood Count 16.1 x10^3/uL (4.0-11.0) Red Blood Count 4.21 x10^6/uL (4.30-5.70) Hemoglobin 11.0 g/dL (13.0-17.5) Hematocrit 32.5 % (39.0-53.0) Mean Corpuscular Volume 77 fL (79-100) Mean Corpuscular Hemoglobin 26 pg (25-35) Mean Corpuscular Hemoglobin Concent 34 g/dL (31-37) Red Cell Distribution Width 18.8 % (11.5-14.5) Platelet Count 316 x10^3/uL (140-400) Neutrophils (%) (Auto) 82 % (31-73) Lymphocytes (%) (Auto) 8 % (24-48) Monocytes (%) (Auto) 9 % (0-9) Eosinophils (%) (Auto) 0 % (0-3) Basophils (%) (Auto) 0 % (0-3) Neutrophils # (Auto) 13.2 x10^3/uL (1.8-7.7) Lymphocytes # (Auto) 1.3 x10^3/uL (1.0-4.8) Monocytes # (Auto) 1.4 x10^3/uL (0.0-1.1) Eosinophils # (Auto) 0.0 x10^3/uL (0.0-0.7) Basophils # (Auto) 0.1 x10^3/uL (0.0-0.2) Sodium Level 133 mmol/L (136-145) Potassium Level 5.0 mmol/L (3.5-5.1) Chloride Level 98 mmol/L (98-107) Carbon Dioxide Level 30 mmol/L (21-32) Anion Gap 5 (6-14) Blood Urea Nitrogen 42 mg/dL (8-26) Creatinine 0.7 mg/dL (0.7-1.3) Estimated GFR (Cockcroft-Gault) 145.6 BUN/Creatinine Ratio 60 (6-20) Glucose Level 113 mg/dL (70-99) Calcium Level 8.3 mg/dL (8.5-10.1) Total Bilirubin 1.3 mg/dL (0.2-1.0) Aspartate Amino Transf (AST/SGOT) 36 U/L (15-37) Alanine Aminotransferase (ALT/SGPT) 55 U/L (16-63) Alkaline Phosphatase 84 U/L (46-116) Total Protein 6.0 g/dL (6.4-8.2) Albumin 2.5 g/dL (3.4-5.0) Albumin/Globulin Ratio 0.7 (1.0-1.7) Test 03/30/19 07:50 03/30/19 12:30 03/30/19 18:32 03/30/19 23:56 O2 Saturation 92 % (92-99) Arterial Blood pH 7.44 (7.35-7.45) Arterial Blood pCO2 at Patient Temp 42 mmHg (35-46) Arterial Blood pO2 at Patient Temp 66 mmHg (75-108) Arterial Blood HCO3 28 mmol/L (21-28) Arterial Blood Base Excess 4 mmol/L (-3-3) FiO2 50 Glucose (Fingerstick) 102 mg/dL (70-99) 116 mg/dL (70-99) 104 mg/dL (70-99) Test 03/31/19 06:00 03/31/19 07:45 03/31/19 08:45 03/31/19 11:24 Glucose (Fingerstick) 93 mg/dL (70-99) 95 mg/dL (70-99) O2 Saturation 92 % (92-99) Arterial Blood pH 7.45 (7.35-7.45) Arterial Blood pCO2 at Patient Temp 34 mmHg (35-46) Arterial Blood pO2 at Patient Temp 66 mmHg (75-108) Arterial Blood HCO3 23 mmol/L (21-28) Arterial Blood Base Excess -1 mmol/L (-3-3) FiO2 40 White Blood Count 17.2 x10^3/uL (4.0-11.0) Red Blood Count 4.33 x10^6/uL (4.30-5.70) Hemoglobin 10.4 g/dL (13.0-17.5) Hematocrit 33.1 % (39.0-53.0) Mean Corpuscular Volume 76 fL (79-100) Mean Corpuscular Hemoglobin 24 pg (25-35) Mean Corpuscular Hemoglobin Concent 31 g/dL (31-37) Red Cell Distribution Width 18.8 % (11.5-14.5) Platelet Count 312 x10^3/uL (140-400) Sodium Level 138 mmol/L (136-145) Potassium Level 4.6 mmol/L (3.5-5.1) Chloride Level 102 mmol/L (98-107) Carbon Dioxide Level 30 mmol/L (21-32) Anion Gap 6 (6-14) Blood Urea Nitrogen 41 mg/dL (8-26) Creatinine 0.6 mg/dL (0.7-1.3) Estimated GFR (Cockcroft-Gault) 174.0 BUN/Creatinine Ratio 68 (6-20) Glucose Level 114 mg/dL (70-99) Calcium Level 9.5 mg/dL (8.5-10.1) Total Bilirubin 1.1 mg/dL (0.2-1.0) Aspartate Amino Transf (AST/SGOT) 26 U/L (15-37) Alanine Aminotransferase (ALT/SGPT) 54 U/L (16-63) Alkaline Phosphatase 99 U/L (46-116) Total Protein 6.2 g/dL (6.4-8.2) Albumin 2.6 g/dL (3.4-5.0) Albumin/Globulin Ratio 0.7 (1.0-1.7) Laboratory Tests Test 03/30/19 12:30 03/30/19 18:32 03/30/19 23:56 03/31/19 06:00 Glucose (Fingerstick) 102 mg/dL (70-99) 116 mg/dL (70-99) 104 mg/dL (70-99) 93 mg/dL (70-99) Test 03/31/19 07:45 03/31/19 08:45 03/31/19 11:24 O2 Saturation 92 % (92-99) Arterial Blood pH 7.45 (7.35-7.45) Arterial Blood pCO2 at Patient Temp 34 mmHg (35-46) Arterial Blood pO2 at Patient Temp 66 mmHg (75-108) Arterial Blood HCO3 23 mmol/L (21-28) Arterial Blood Base Excess -1 mmol/L (-3-3) FiO2 40 White Blood Count 17.2 x10^3/uL (4.0-11.0) Red Blood Count 4.33 x10^6/uL (4.30-5.70) Hemoglobin 10.4 g/dL (13.0-17.5) Hematocrit 33.1 % (39.0-53.0) Mean Corpuscular Volume 76 fL (79-100) Mean Corpuscular Hemoglobin 24 pg (25-35) Mean Corpuscular Hemoglobin Concent 31 g/dL (31-37) Red Cell Distribution Width 18.8 % (11.5-14.5) Platelet Count 312 x10^3/uL (140-400) Sodium Level 138 mmol/L (136-145) Potassium Level 4.6 mmol/L (3.5-5.1) Chloride Level 102 mmol/L (98-107) Carbon Dioxide Level 30 mmol/L (21-32) Anion Gap 6 (6-14) Blood Urea Nitrogen 41 mg/dL (8-26) Creatinine 0.6 mg/dL (0.7-1.3) Estimated GFR (Cockcroft-Gault) 174.0 BUN/Creatinine Ratio 68 (6-20) Glucose Level 114 mg/dL (70-99) Calcium Level 9.5 mg/dL (8.5-10.1) Total Bilirubin 1.1 mg/dL (0.2-1.0) Aspartate Amino Transf (AST/SGOT) 26 U/L (15-37) Alanine Aminotransferase (ALT/SGPT) 54 U/L (16-63) Alkaline Phosphatase 99 U/L (46-116) Total Protein 6.2 g/dL (6.4-8.2) Albumin 2.6 g/dL (3.4-5.0) Albumin/Globulin Ratio 0.7 (1.0-1.7) Glucose (Fingerstick) 95 mg/dL (70-99) Medications Active Scripts Medications Dose Route/Sig Max Daily Dose Days Date Category Hydrochlorothiazide Tablet (Hydrochlorothiazide) 25 Mg Tablet 25 Mg PO DAILY 03/10/19 Reported Norvasc (Amlodipine Besylate) 5 Mg Tablet 1 Tab PO DAILY 01/12/19 Rx Lisinopril 5 Mg Tablet 1 Tab PO DAILY 01/12/19 Rx Comments CXR 03/30 BILATERAL INFILTRATES. , overall improved basal atelectasis Impression . 1. Acute hypercarbic/hypoxic respiratory Failure due to ARDS , vaping related,oxygenation slowly improving on 40%, and PEEP of 5 2. Suspected VAP , Rx , currently off ABX 3.Hypertension (controlled) 4. Pre-renal Azotemia, improved 5. Pulm. HTN PA pressure 55 Normal EF 6. HX. of tobacco use 7. Morbid obesity Plan . 1. Continue with present assist control mode. will start weaning sedation again in am. Did not do well while off sedation today 2. high dose steroids ,initiated 03/16 , slow taper as tolerated 3. off abx at this time 4. no further fever 5. Continue bronchodilators. 6. Heparin for DVT prophylaxis 7 azotemia .renal following 8. ideally will need tracheostomy and LTACH , however he has no resources and placement will be an issue. will try to extubate if possible by end of this week. If not , will need trach next week 9. DNR.Continue aggressive supportive care discussed with RN and RT. We will follow along with you. MARIO ALLEN MD Mar 31, 2019 12:21
--- NOTE | 2019-03-31 15:31 | RAD ---
EXAM: Chest, single view. HISTORY: Intubation. COMPARISON: 03/30/2019 FINDINGS: A frontal view of the chest is obtained. There is an endotracheal tube within the mid trachea. There is a nasogastric tube within the esophagus extending inferior to the [id number]. There is a right PICC with the tip in the superior cavoatrial junction. There is stable diffuse interstitial prominence with superimposed bilateral lower lobe atelectasis or infiltrate and small pleural effusions. There is stable prominent cardiac silhouette. There is no pneumothorax. IMPRESSION: 1. Support lines and tubes unchanged in position. 2. Stable diffuse interstitial prominence with bilateral lower lobe atelectasis or infiltrate and small pleural effusions. Electronically signed by: Cheryl Mann MD (03/31/2019 3:28 PM) [facility]
[2019-03-31] MEDS ORDERED: SODIUM BICARB ADULT 8.4% 50 MEQ/50 ML DISP.SYRIN. ONE (17:28)
[2019-04-01] VITALS (24 sets, daily range): BP systolic 97–161; BP diastolic 55–89
[2019-04-01] MEDS: PROPOFOL 100 ML IV PRN ×10 (02:07→22:57)
[2019-04-01] MEDS: MIDAZOLAM 100mg/100ml NS BAG 100 ML IV PRN (02:07)
[2019-04-01] MEDS: methylPREDNISolone SOD SUCC PF 40 MG/ML VIAL. IV SCH ×3 (06:00→21:35)
[2019-04-01] MEDS: INSULIN LISPRO 300 UNITS/3 ML VIAL. SQ SCH ×4 (06:00→18:00)
[2019-04-01] MEDS: HEPARIN for SUB-Q USE 5,000 UNIT/ML VIAL. SQ SCH ×3 (06:00→21:37)
--- NOTE | 2019-04-01 07:45 | RAD ---
CHEST AP ONLY Clinical Indication: On ventilator Comparison: 03/31/2019 AP view of the chest. Findings: Semiupright frontal view chest was obtained. Endotracheal tube is again identified to be in place. Enteric tube is identified and appears to be in place. Right sided catheter terminates overlying the right atrium. Cardiomegaly is noted. Slight pulmonary vasculature congestion noted. There is no pneumothorax. Small right pleural effusion is suspected. Right basilar atelectasis somewhat increased in the interval. No acute bone abnormality. IMPRESSION: Decreased right basilar aeration. Right basilar atelectasis is evident in the interval. Pulmonary interstitial edema is increased. Electronically signed by: Ethan Teran MD (04/01/2019 7:42 AM) [facility]
[2019-04-01] MEDS: IPRATRPIUM/ALBUTEROL 0.5/2.5MG 3 ML NEBU. NEB SCH ×4 (07:56→20:24)
[2019-04-01] MEDS: LISINOPRIL 5 MG TABLET. PO SCH (08:20)
[2019-04-01] MEDS: FAMOTIDINE 20 MG/2 ML VIAL IVP SCH ×2 (08:20→21:35)
[2019-04-01] MEDS: amLODIPine BESYLATE 10 MG TABLET PO SCH (08:20)
[2019-04-01] MEDS: ASPIRIN CHEWABLE 81 MG TABLET. PO SCH (08:20)
[2019-04-01] MEDS: CHLORHEXIDINE 0.12% 15 ML MOUTHWASH. MM SCH ×2 (08:20→21:35)
--- NOTE | 2019-04-01 10:10 | PDOC ---
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 ARDS, respiratory failure, COPD Morbid obesity Sepsis Acute renal failure Plan Continue current management No need for anticonvulsants Subjective none Objective Vital Signs Date Time Temp Pulse Resp B/P (MAP) Pulse Ox O2 Delivery O2 Flow Rate FiO2 04/01/19 09:00 82 18 144/79 (100) 97 Ventilator 04/01/19 08:00 98.6 98.6 04/01/19 08:00 93.0 Intake and Output 04/01/19 06:59 Intake Total 5775.84 ml Output Total 3505 ml Balance 2270.84 ml IV Total 1297.84 ml Tube Feeding 2777 ml Other 1701 ml Output Urine Total 3505 ml Gastric Drainage Total 0 ml PHYSICAL EXAM Sedated on ventilator, opens eyes to voice, does not follow commands PERRL EOMI CN: no focal findings. Muscle tone: normal. Muscle strength: moves all extremities DTR: 1+ Plantar reflex: silent Gait: not examined in bed. Sensory exam: no abnormal findings. No cerebellar signs elicited. Review of Relevant I have reviewed the following items peter (where applicable) has been applied. Labs Laboratory Tests Test 03/30/19 12:30 03/30/19 18:32 03/30/19 23:56 03/31/19 06:00 Glucose (Fingerstick) 102 mg/dL (70-99) 116 mg/dL (70-99) 104 mg/dL (70-99) 93 mg/dL (70-99) Test 03/31/19 07:45 03/31/19 08:45 03/31/19 11:24 03/31/19 17:22 O2 Saturation 92 % (92-99) Arterial Blood pH 7.45 (7.35-7.45) Arterial Blood pCO2 at Patient Temp 34 mmHg (35-46) Arterial Blood pO2 at Patient Temp 66 mmHg (75-108) Arterial Blood HCO3 23 mmol/L (21-28) Arterial Blood Base Excess -1 mmol/L (-3-3) FiO2 40 White Blood Count 17.2 x10^3/uL (4.0-11.0) Red Blood Count 4.33 x10^6/uL (4.30-5.70) Hemoglobin 10.4 g/dL (13.0-17.5) Hematocrit 33.1 % (39.0-53.0) Mean Corpuscular Volume 76 fL (79-100) Mean Corpuscular Hemoglobin 24 pg (25-35) Mean Corpuscular Hemoglobin Concent 31 g/dL (31-37) Red Cell Distribution Width 18.8 % (11.5-14.5) Platelet Count 312 x10^3/uL (140-400) Sodium Level 138 mmol/L (136-145) Potassium Level 4.6 mmol/L (3.5-5.1) Chloride Level 102 mmol/L (98-107) Carbon Dioxide Level 30 mmol/L (21-32) Anion Gap 6 (6-14) Blood Urea Nitrogen 41 mg/dL (8-26) Creatinine 0.6 mg/dL (0.7-1.3) Estimated GFR (Cockcroft-Gault) 174.0 BUN/Creatinine Ratio 68 (6-20) Glucose Level 114 mg/dL (70-99) Calcium Level 9.5 mg/dL (8.5-10.1) Total Bilirubin 1.1 mg/dL (0.2-1.0) Aspartate Amino Transf (AST/SGOT) 26 U/L (15-37) Alanine Aminotransferase (ALT/SGPT) 54 U/L (16-63) Alkaline Phosphatase 99 U/L (46-116) Total Protein 6.2 g/dL (6.4-8.2) Albumin 2.6 g/dL (3.4-5.0) Albumin/Globulin Ratio 0.7 (1.0-1.7) Glucose (Fingerstick) 95 mg/dL (70-99) 104 mg/dL (70-99) Test 04/01/19 00:09 04/01/19 06:10 Glucose (Fingerstick) 114 mg/dL (70-99) 87 mg/dL (70-99) Laboratory Tests Test 03/31/19 11:24 03/31/19 17:22 04/01/19 00:09 04/01/19 06:10 Glucose (Fingerstick) 95 mg/dL (70-99) 104 mg/dL (70-99) 114 mg/dL (70-99) 87 mg/dL (70-99) Microbiology 03/16/19 - Final, Complete 03/16/19 - Final, Complete 03/16/19 Gram Stain Evaluation - Final, Complete 03/16/19 Sputum Culture - Final, Complete 03/16/19 Sputum Result 1 - Final, Complete 03/16/19 Blood Culture - Final, Complete NO GROWTH AFTER 5 DAYS 03/09/19 Urine Culture - Final, Complete 03/09/19 Urine Culture Result 1 (WIL) - Final, Complete Medications Current Medications Albuterol/ Ipratropium (Duoneb) 3 ml 1X ONCE NEB Last administered on 03/09/19at 21:21; Start 03/09/19 at 21:30; Stop 03/09/19 at 21:31; Status DC Dexamethasone Sodium Phosphate (Decadron) 10 mg 1X ONCE IV Last administered on 03/09/19at 22:29; Start 03/09/19 at 22:00; Stop 03/09/19 at 22:01; Status DC Propofol 100 ml @ 0 mls/hr CONT PRN IV SEE PROTOCOL Last administered on 03/10/19at 07:19; Start 03/09/19 at 22:30; Stop 03/10/19 at 07:28; Status DC Fentanyl Citrate (Fentanyl 2ml Vial) 50 mcg PRN Q1HR PRN IV SEE COMMENTS; Start 03/09/19 at 22:30; Stop 03/10/19 at 07:28; Status DC Chlorhexidine Gluconate (Peridex) 15 ml BID MM Last administered on 04/01/19at 08:21; Start 03/10/19 at 09:00 Famotidine (Pepcid Vial) 20 mg BID IVP Last administered on 04/01/19at 08:21; Start 03/10/19 at 09:00 Propofol 50 ml @ As Directed STK-MED ONCE IV ; Start 03/09/19 at 22:28; Stop 03/09/19 at 22:28; Status DC Albuterol/ Ipratropium (Duoneb) 3 ml 1X ONCE NEB Last administered on 03/10/19at 02:04; Start 03/09/19 at 23:00; Stop 03/09/19 at 23:01; Status DC Albuterol/ Ipratropium (Duoneb) 3 ml 1X ONCE NEB Last administered on 03/10/19at 02:04; Start 03/09/19 at 23:00; Stop 03/09/19 at 23:01; Status DC Fentanyl Citrate (Fentanyl 2ml Vial) 100 mcg 1X ONCE IV Last administered on 03/09/19at 23:31; Start 03/09/19 at 23:30; Stop 03/09/19 at 23:31; Status DC Bumetanide (Bumex) 1 mg 1X ONCE IV Last administered on 03/10/19at 00:21; Start 03/10/19 at 00:00; Stop 03/10/19 at 00:01; Status DC Heparin Sodium (Porcine) (Heparin Sodium) 4,000 unit 1X ONCE IV Last administered on 03/10/19at 00:31; Start 03/10/19 at 00:00; Stop 03/10/19 at 00:01; Status DC Heparin Sodium/ Dextrose 500 ml @ 0 mls/hr CONT PRN IV PER PROTOCOL Last administered on 03/10/19at 23:34; Start 03/09/19 at 23:45; Stop 03/11/19 at 16:13; Status DC Heparin Sodium (Porcine) (Heparin Sodium) 5,500 unit PRN Q6HRS PRN IV FOR UFH LEVEL LESS THAN 0.2 Last administered on 03/11/19at 00:57; Start 03/09/19 at 23:45; Stop 03/11/19 at 16:13; Status DC Aspirin (Aspirin Rectal Supp) 300 mg 1X ONCE [place] Last administered on 03/10/19at 03:42; Start 03/10/19 at 00:00; Stop 03/10/19 at 00:01; Status DC Propofol 50 ml @ As Directed STK-MED ONCE IV ; Start 03/09/19 at 23:38; Stop 03/09/19 at 23:38; Status DC Propofol 50 ml @ As Directed STK-MED ONCE IV ; Start 03/09/19 at 23:38; Stop 03/09/19 at 23:38; Status DC Piperacillin Sod/ Tazobactam Sod 4.5 gm/Sodium Chloride 100 ml @ 200 mls/hr 1X ONCE IV Last administered on 03/10/19at 05:19; Start 03/10/19 at 00:30; Stop 03/10/19 at 00:59; Status DC Propofol 50 ml @ As Directed STK-MED ONCE IV ; Start 03/10/19 at 00:51; Stop 03/10/19 at 00:51; Status DC Propofol 50 ml @ As Directed STK-MED ONCE IV ; Start 03/10/19 at 01:14; Stop 03/10/19 at 01:15; Status DC Fentanyl Citrate (Fentanyl 2ml Vial) 100 mcg 1X ONCE IV Last administered on 03/10/19at 01:26; Start 03/10/19 at 01:45; Stop 03/10/19 at 01:46; Status DC Clonidine HCl (Catapres) 0.1 mg 1X ONCE PO ; Start 03/10/19 at 01:30; Stop 03/10/19 at 01:34; Status DC Midazolam HCl (Versed) 5 mg 1X ONCE IV Last administered on 03/10/19at 01:28; Start 03/10/19 at 01:30; Stop 03/10/19 at 01:34; Status DC Propofol 50 ml @ As Directed STK-MED ONCE IV ; Start 03/10/19 at 02:08; Stop 03/10/19 at 02:09; Status DC Propofol 50 ml @ As Directed STK-MED ONCE IV ; Start 03/10/19 at 02:36; Stop 03/10/19 at 02:36; Status DC Rocuronium [place] (Zemuron) 50 mg STK-MED ONCE .ROUTE ; Start 03/10/19 at 05:15; Stop 03/10/19 at 05:15; Status DC Etomidate (Amidate) 20 mg STK-MED ONCE IV ; Start 03/10/19 at 05:15; Stop 03/10/19 at 05:16; Status DC Fentanyl Citrate 30 ml @ 0 mls/hr CONT PRN IV SEE PROTOCOL Last administered on 04/01/19at 06:00; Start 03/10/19 at 07:30 Propofol 100 ml @ 0 mls/hr CONT PRN IV SEE PROTOCOL Last administered on 04/01/19at 08:31; Start 03/10/19 at 07:30 Fentanyl Citrate (Fentanyl 2ml Vial) 25 mcg PRN Q1HR PRN IV SEE COMMENTS; Start 03/10/19 at 07:30 Fentanyl Citrate (Fentanyl 2ml Vial) 50 mcg PRN Q1HR PRN IV SEE COMMENTS; Start 03/10/19 at 07:30 Artificial Tears (Artificial Tears) 1 drop PRN Q1HR PRN OU DRY EYE, 1ST CHOICE Last administered on 03/13/19at 13:32; Start 03/10/19 at 07:30 Famotidine (Pepcid Vial) 20 mg BID IVP ; Start 03/10/19 at 09:00; Status UNV Morphine Sulfate (Morphine Sulfate) 2 mg PRN Q1HR PRN IV SEE COMMENTS. Last administered on 03/25/19at 09:18; Start 03/10/19 at 07:30 Morphine Sulfate (Morphine Sulfate) 4 mg PRN Q1HR PRN IV SEE COMMENTS. Last administered on 03/31/19at 10:50; Start 03/10/19 at 07:30 Midazolam HCl 100 ml @ 0 mls/hr CONT PRN IV SEE PROTOCOL Last administered on 04/01/19 02:07; Start 03/10/19 at 07:30 Levofloxacin/ Dextrose (Levaquin Per Pharmacy) 1 each PRN DAILY PRN MC SEE COMMENTS; Start 03/10/19 at 08:15; Stop 03/14/19 at 09:25; Status DC Albuterol/ Ipratropium (Duoneb) 3 ml RTQID NEB Last administered on 04/01/19at 07:56; Start 03/10/19 at 12:00 Sodium Chloride 1,000 ml @ 100 mls/hr Q10H IV Last administered on 03/10/19 23:34; Start 03/10/19 at 08:15; Stop 03/11/19 at 16:02; Status DC Amlodipine Besylate (Norvasc) 5 mg DAILY PO Last administered on 03/10/19at 09:13; Start 03/10/19 at 09:00; Stop 03/10/19 at 10:04; Status DC Hydrochlorothiazide (Hydrodiuril) 25 mg DAILY PO Last administered on 03/10/19 09:13; Start 03/10/19 at 09:00; Stop 03/10/19 at 10:04; Status DC Lisinopril (Prinivil) 5 mg DAILY PO Last administered on 03/10/19 09:13; Start 03/10/19 at 09:00; Stop 03/10/19 at 10:04; Status DC Levofloxacin/ Dextrose 100 ml @ 100 mls/hr Q24H IV Last administered on 03/14/19at 08:10; Start 03/10/19 at 09:00; Stop 03/14/19 at 09:25; Status DC Aspirin (Amanda Aspirin) 325 mg 1X ONCE PO Last administered on 03/10/19at 10:55; Start 03/10/19 at 10:30; Stop 03/10/19 at 10:31; Status DC Aspirin (Children'S Aspirin) 81 mg DAILYWBKFT PO Last administered on 04/01/19at 08:21; Start 03/11/19 at 08:00 Amlodipine Besylate (Norvasc) 10 mg DAILY PO Last administered on 03/11/19at 09:37; Start 03/11/19 at 09:00; Stop 03/11/19 at 12:50; Status DC Hydralazine HCl (Apresoline Inj) 10 mg PRN Q4HRS PRN IVP ELEVATED BP, SEE COMMENTS; Start 03/10/19 at 10:15; Stop 03/12/19 at 09:37; Status DC Furosemide (Lasix) 40 mg DAILY IVP Last administered on 03/11/19at 09:37; Start 03/10/19 at 11:00; Stop 03/11/19 at 11:24; Status DC Insulin Human Lispro (HumaLOG) 0-9 UNITS TIDWMEALS SQ ; Start 03/10/19 at 12:00; Stop 03/10/19 at 17:57; Status DC Dextrose (Dextrose 50%-Water Syringe) 12.5 gm PRN Q15MIN PRN IV SEE COMMENTS; Start 03/10/19 at 11:15; Stop 03/12/19 at 16:47; Status DC Dextrose 250 ml PRN Q15MIN PRN IV SEE COMMENTS; Start 03/10/19 at 11:15; Stop 03/10/19 at 11:05; Status DC Iohexol (Omnipaque 350 Mg/ml) 100 ml 1X ONCE IV Last administered on 03/10/19at 14:05; Start 03/10/19 at 11:45; Stop 03/10/19 at 11:47; Status DC Info (CONTRAST GIVEN -- Rx MONITORING) 1 each PRN DAILY PRN MC SEE COMMENTS; Start 03/10/19 at 11:45; Stop 03/12/19 at 11:44; Status DC Piperacillin Sod/ Tazobactam Sod (Zosyn Per Pharmacy) 1 each PRN DAILY PRN MC SEE COMMENTS; Start 03/10/19 at 11:45; Stop 03/25/19 at 08:36; Status DC Vancomycin HCl (Vanco Per Pharmacy) 1 each PRN DAILY PRN MC SEE COMMENTS Last administered on 03/11/19at 09:42; Start 03/10/19 at 11:45; Stop 03/11/19 at 13:57; Status DC Vancomycin HCl 2 gm/Sodium Chloride 500 ml @ 250 mls/hr 1X ONCE IV Last administered on 03/10/19at 12:41; Start 03/10/19 at 13:00; Stop 03/10/19 at 14:59; Status DC Piperacillin Sod/ Tazobactam Sod 3.375 gm/Sodium Chloride 50 ml @ 100 mls/hr Q6HRS IV Last administered on 03/24/19at 05:45; Start 03/10/19 at 12:30; Stop 03/24/19 at 07:24; Status DC Vancomycin HCl 1.75 gm/Sodium Chloride 500 ml @ 250 mls/hr Q12H IV Last administered on 03/11/19at 12:43; Start 03/11/19 at 01:00; Stop 03/11/19 at 13:57; Status DC Vancomycin HCl (Vancomycin Trough Level) 1 each 1X ONCE MC ; Start 03/12/19 at 1 2:30; Stop 03/12/19 at 12:31; Status Cancel Insulin Human Lispro (HumaLOG) 0-9 UNITS Q6HRS SQ ; Start 03/11/19 at 00:00; Stop 03/27/19 at 09:06; Status DC Magnesium Sulfate/ Dextrose 100 ml @ 50 mls/hr DAILY IV Last administered on 03/11/19at 09:28; Start 03/11/19 at 09:00; Stop 03/14/19 at 08:59; Status DC Potassium Phosphate 27.2 mmol/Sodium Chloride 259.0667 ml @ 64.753 m... 1X ONCE IV Last administered on 03/11/19at 09:28; Start 03/11/19 at 10:00; Stop 03/11/19 at 14:00; Status DC Potassium Phosphate 27.2 mmol/Sodium Chloride 259.0667 ml @ 64.753 m... 1X ONCE IV ; Start 03/11/19 at 14:00; Stop 03/11/19 at 18:00; Status DC Lorazepam (Ativan Inj) 1 mg PRN Q1HR PRN IV ANXIETY Last administered on 03/14/19at 16:32; Start 03/11/19 at 11:00; Stop 03/19/19 at 10:31; Status DC Sodium Chloride 1,000 ml @ 1,000 mls/hr 1X ONCE IV Last administered on 03/11/19at 12:06; Start 03/11/19 at 11:30; Stop 03/11/19 at 12:29; Status DC Norepinephrine Bitartrate 250 ml @ 27.837 mls/ hr CONT PRN IV SEE I/O RECORD Last administered on 03/13/19at 04:13; Start 03/11/19 at 13:00; Stop 03/26/19 at 09:22; Status DC Hydralazine HCl (Apresoline Inj) 10 mg PRN Q4HRS PRN IVP ELEVATED BP, SEE COMMENTS Last administered on 03/31/19at 10:50; Start 03/11/19 at 13:00 Linezolid/Dextrose 300 ml @ 300 mls/hr Q12HR IV Last administered on 03/22/19at 21:38; Start 03/11/19 at 21:00; Stop 03/23/19 at 07:48; Status DC Potassium Chloride/Water 50 ml @ 50 mls/hr Q1H IV Last administered on 03/11/19at 17:28; Start 03/11/19 at 16:00; Stop 03/11/19 at 17:59; Status DC Heparin Sodium (Porcine) (Heparin Sodium) 5,000 unit Q8HRS SQ Last administered on 04/01/19at 06:00; Start 03/11/19 at 22:00 Multi-Ingred Cream/Lotion/Oil/ Oint (Artificial Tears Eye Ointment) 1 zuri PRN Q1HR PRN OU DRY EYE; Start 03/12/19 at 09:00 Potassium Chloride/Water 50 ml @ 50 mls/hr 1X ONCE IV Last administered on 03/12/19at 09:44; Start 03/12/19 at 10:00; Stop 03/12/19 at 10:59; Status DC Potassium Chloride/Water 50 ml @ 50 mls/hr 1X ONCE IV ; Start 03/12/19 at 10:30; Stop 03/12/19 at 11:31; Status DC Insulin Human Lispro (HumaLOG) 0-9 UNITS TIDWMEALS SQ ; Start 03/12/19 at 17:00; Stop 03/12/19 at 16:24; Status DC Dextrose (Dextrose 50%-Water Syringe) 12.5 gm PRN Q15MIN PRN IV SEE COMMENTS; Start 03/12/19 at 16:15 Dextrose 250 ml PRN Q15MIN PRN IV SEE COMMENTS; Start 03/12/19 at 16:15; Stop 03/27/19 at 08:59; Status DC Insulin Human Lispro (HumaLOG) 0-9 UNITS Q6HRS SQ Last administered on 03/26/19at 00:37; Start 03/12/19 at 18:00 Dexmedetomidine HCl 400 mcg/ Sodium Chloride 100 ml @ 0 mls/hr CONT PRN IV ANXIETY / AGITATION Last administered on 03/21/19at 04:33; Start 03/12/19 at 20:30; Stop 03/26/19 at 09:22; Status DC Sodium Chloride 500 ml @ 500 mls/hr 1X PRN PRN IV see comments Last administered on 03/12/19at 23:22; Start 03/12/19 at 20:30; Stop 03/30/19 at 14:05; Status DC Atropine Sulfate (ATROPINE 0.5mg SYRINGE) 0.5 mg PRN Q5MIN PRN IV SEE COMMENTS; Start 03/12/19 at 20:30; Stop 03/30/19 at 14:06; Status DC Vecuronium [place] (Norcuron Bolus) 10 mg PRN Q1HR PRN IV OVERBREATHING VENT Last administered on 03/25/19at 10:49; Start 03/13/19 at 07:30 Perflutren Protein Type A Microsphe (Optison) 0.66 mg STK-MED ONCE IV ; Start 03/13/19 at 09:08; Stop 03/13/19 at 09:08; Status DC Perflutren Protein Type A Microsphe (Optison) 0.66 mg 1X ONCE IV Last administered on 03/13/19at 09:40; Start 03/13/19 at 09:15; Stop 03/13/19 at 09:16; Status DC Furosemide (Lasix) 40 mg 1X ONCE IVP Last administered on 03/13/19at 13:32; Start 03/13/19 at 10:30; Stop 03/13/19 at 10:31; Status DC Daptomycin 1320 mg/Sodium Chloride 50 ml @ 100 mls/hr ONCE ONCE IV Last administered on 03/15/19at 13:53; Start 03/15/19 at 13:00; Stop 03/16/19 at 09:33; Status DC Daptomycin 1340 mg/Sodium Chloride 50 ml @ 100 mls/hr Q24H IV ; Start 03/16/19 at 08:45; Status UNV Daptomycin 1340 mg/Sodium Chloride 50 ml @ 100 mls/hr Q24H IV ; Start 03/16/19 at 09:00; Status Cancel Daptomycin 830 mg/ Sodium Chloride 50 ml @ 100 mls/hr Q24H IV Last administered on 03/18/19at 15:03; Start 03/16/19 at 14:00; Stop 03/19/19 at 07:41; Status DC Methylprednisolone Sodium Succinate (SOLU-Medrol 125MG VIAL) 100 mg Q8HRS IV Last administered on 03/23/19at 05:54; Start 03/16/19 at 12:00; Stop 03/23/19 at 12:03; Status DC Furosemide (Lasix) 40 mg 1X ONCE IVP Last administered on 03/16/19at 16:46; Start 03/16/19 at 16:30; Stop 03/16/19 at 16:31; Status DC Fentanyl Citrate (Fentanyl 600 Mcg/30 ml SUPERINTENDENT STEVEDORING) 600 mcg STK-MED ONCE IV ; Start 03/13/19 at 17:00; Stop 03/17/19 at 11:02; Status DC Furosemide 100 mg/ Sodium Chloride 100 ml @ 5 mls/hr CONT PRN IV SEE I/O RECORD Last administered on 03/18/19at 00:20; Start 03/17/19 at 15:45; Stop 03/18/19 at 10:36; Status DC Furosemide 100 mg/ Sodium Chloride 100 ml @ 5 mls/hr CONT PRN IV SEE I/O RECORD Last administered on 03/21/19at 08:34; Start 03/18/19 at 10:45; Stop 03/21/19 at 12:57; Status DC Lorazepam (Ativan Inj) 2 mg PRN Q1HR PRN IV ANXIETY Last administered on 03/31/19at 13:09; Start 03/19/19 at 10:45 Lisinopril (Prinivil) 5 mg DAILY PO Last administered on 04/01/19 08:21; Start 03/21/19 at 11:30 Amlodipine Besylate (Norvasc) 10 mg DAILY PO Last administered on 04/01/19 08:21; Start 03/21/19 at 11:30 Furosemide 100 mg/ Sodium Chloride 100 ml @ 10 mls/hr CONT PRN IV SEE I/O RECORD Last administered on 03/22/19at 05:05; Start 03/21/19 at 16:00; Stop 03/22/19 at 12:39; Status DC Scopolamine (Transderm-Scop) 1 patch Q3DAYS TD Last administered on 03/31/19at 08:40; Start 03/22/19 at 11:00 Furosemide 100 mg/ Sodium Chloride 100 ml @ 5 mls/hr CONT PRN IV SEE I/O RECORD Last administered on 03/22/19at 21:38; Start 03/22/19 at 12:45; Stop 03/23/19 at 17:48; Status DC Methylprednisolone Sodium Succinate (SOLU-Medrol 125MG VIAL) 50 mg Q8HRS IV Last administered on 03/27/19at 05:30; Start 03/23/19 at 14:00; Stop 03/27/19 at 11:20; Status DC Insulin Human Lispro (HumaLOG) 0-5 UNITS TIDWMEALS SQ ; Start 03/27/19 at 09:30; Status Cancel Dextrose (Dextrose 50%-Water Syringe) 12.5 gm PRN Q15MIN PRN IV SEE COMMENTS; Start 03/27/19 at 09:00; Status Cancel Dextrose 250 ml PRN Q15MIN PRN IV SEE COMMENTS; Start 03/27/19 at 09:00; Statu s Cancel Methylprednisolone Sodium Succinate (SOLU-Medrol 40MG VIAL) 30 mg Q8HRS IV Last administered on 04/01/19at 06:00; Start 03/27/19 at 14:00 Furosemide (Lasix) 40 mg 1X ONCE IVP Last administered on 03/27/19at 11:58; Start 03/27/19 at 12:00; Stop 03/27/19 at 12:01; Status DC Furosemide (Lasix) 40 mg 1X ONCE IVP Last administered on 03/28/19at 10:15; Start 03/28/19 at 09:30; Stop 03/28/19 at 09:46; Status DC Furosemide (Lasix) 40 mg 1X ONCE IVP Last administered on 03/29/19at 09:44; Start 03/29/19 at 09:30; Stop 03/29/19 at 09:31; Status DC Sodium Chloride 1,000 ml @ 1,000 mls/hr 1X ONCE IV Last administered on 03/29/19at 20:41; Start 03/29/19 at 20:30; Stop 03/29/19 at 21:29; Status DC Norepinephrine Bitartrate 250 ml @ 38.554 mls/ hr CONT PRN IV SEE I/O RECORD; Start 03/29/19 at 20:30 Furosemide (Lasix) 40 mg 1X ONCE IVP Last administered on 03/30/19at 10:42; Start 03/30/19 at 10:15; Stop 03/30/19 at 10:16; Status DC Sodium Bicarbonate (Sodium Bicarb Adult 8.4% Syr) 50 meq STK-MED ONCE .ROUTE ; Start 03/31/19 at 17:28; Stop 03/31/19 at 17:29; Status DC Active Scripts Active Norvasc (Amlodipine Besylate) 5 Mg Tablet 1 Tab PO DAILY Lisinopril 5 Mg Tablet 1 Tab PO DAILY Reported Hydrochlorothiazide Tablet (Hydrochlorothiazide) 25 Mg Tablet 25 Mg PO DAILY Vitals/I & O Vital Sign - Last 24 Hours 03/31/19 03/31/19 03/31/19 03/31/19 10:50 10:50 11:00 11:23 Pulse 104 106 Resp 19 20 17 B/P (MAP) 193/107 185/104 (131) Pulse Ox 95 98 96 O2 Delivery Ventilator Ventilator Ventilator 03/31/19 03/31/19 03/31/19 03/31/19 11:25 12:00 12:00 12:20 Temp 98.2 98.2 Pulse 104 Resp 16 16 B/P (MAP) 154/77 (102) Pulse Ox 96 95 98 O2 Delivery Ventilator Mechanical Ventilator Ventilator Ventilator 03/31/19 03/31/19 03/31/19 03/31/19 13:00 13:12 14:00 14:05 Pulse 102 102 Resp 17 16 16 B/P (MAP) 147/50 (82) 119/70 (86) Pulse Ox 96 95 96 96 O2 Delivery Ventilator Ventilator Ventilator Ventilator 03/31/19 03/31/19 03/31/19 03/31/19 15:00 16:00 16:00 16:09 Pulse 73 72 Resp 16 16 B/P (MAP) 113/70 (84) 89/55 (66) Pulse Ox 96 95 96 O2 Delivery Ventilator Ventilator Mechanical Ventilator Ventilator 03/31/19 03/31/19 03/31/19 03/31/19 17:00 17:21 17:52 18:00 Pulse 72 74 Resp 16 16 16 16 B/P (MAP) 115/76 (89) 121/69 (86) Pulse Ox 96 97 97 98 O2 Delivery Ventilator Ventilator Ventilator 03/31/19 03/31/19 03/31/19 03/31/19 18:27 19:00 19:52 20:00 Temp 98.0 98.0 Pulse 74 Resp 16 B/P (MAP) 99/59 (72) Pulse Ox 98 98 98 O2 Delivery Ventilator Ventilator Ventilator Mechanical Ventilator 03/31/19 03/31/19 03/31/19 03/31/19 20:00 21:00 22:00 22:30 Pulse 60 64 60 Resp 18 16 18 B/P (MAP) 103/58 (73) 98/57 (71) 102/61 (75) Pulse Ox 97 100 98 99 O2 Delivery Ventilator Ventilator Ventilator Ventilator 03/31/19 03/31/19 03/31/19 03/31/19 23:00 23:25 23:58 23:59 Pulse 63 Resp 18 15 16 B/P (MAP) 136/80 (98) Pulse Ox 99 99 99 O2 Delivery Ventilator Ventilator Ventilator Mechanical Ventilator O2 Flow Rate 93.0 93.0 04/01/19 04/01/19 04/01/19 04/01/19 00:00 00:44 01:00 02:00 Temp 98.6 98.6 Pulse 96 84 90 Resp 18 27 41 B/P (MAP) 158/82 (107) 137/75 (95) 143/80 (101) Pulse Ox 95 96 99 97 O2 Delivery Ventilator Ventilator Ventilator Ventilator 04/01/19 04/01/19 04/01/19 04/01/19 03:00 03:15 04:00 04:00 Temp 98.9 98.9 Pulse 92 84 Resp 43 37 B/P (MAP) 161/89 (113) 140/85 (103) Pulse Ox 94 99 97 O2 Delivery Ventilator Ventilator Mechanical Ventilator Ventilator 04/01/19 04/01/19 04/01/19 04/01/19 05:00 05:30 06:00 06:00 Pulse 76 77 Resp 21 16 B/P (MAP) 146/86 (106) 120/74 (89) Pulse Ox 98 97 100 97 O2 Delivery Ventilator Ventilator Ventilator O2 Flow Rate 93.0 04/01/19 04/01/19 04/01/19 04/01/19 06:42 07:00 07:56 08:00 Pulse 74 Resp 16 B/P (MAP) 119/73 (88) Pulse Ox 100 100 100 O2 Delivery Ventilator Ventilator Mechanical Ventilator O2 Flow Rate 93.0 93.0 04/01/19 04/01/19 04/01/19 04/01/19 08:00 08:21 08:21 09:00 Temp 98.6 98.6 Pulse 82 82 Resp 18 18 B/P (MAP) 155/84 (107) 155/84 155/84 144/79 (100) Pulse Ox 99 97 O2 Delivery Ventilator Ventilator Intake and Output 03/31/19 03/31/19 04/01/19 14:59 22:59 06:59 Intake Total 400 ml 2265.84 ml 3110 ml Output Total 1370 ml 935 ml 1200 ml Balance -970 ml 1330.84 ml 1910 ml LICO HOLGUIN MD Apr 01, 2019 10:10
[2019-04-01 10:21] LABS: BASE EXCESS ABG 1 mmol/L (-3-3); HCO3 ABG 26 mmol/L (21-28); PCO2 ABG 42 mmHg (35-46); PO2 ABG 81 mmHg (75-108); SAT O2 ABG 95 % (92-99)
[2019-04-01 10:24] LABS: FIO2 ABG 45
--- NOTE | 2019-04-01 11:31 | PDOC ---
PULMONARY PROGRESS NOTES Subjective Patient with respiratory failure secondary to ARDS from vaping. remains on vent, sedated on fentanyl, versed, and propofol-- Ventilator support decreasing, now on 40% FIO2, 5 of PEEP .had paradoxical breathing once sedation was off Vitals Vital Signs Date Time Temp Pulse Resp B/P (MAP) Pulse Ox O2 Delivery O2 Flow Rate FiO2 04/01/19 11:00 56 15 106/63 (77) 99 Ventilator 04/01/19 08:00 98.6 98.6 04/01/19 08:00 93.0 Comments unable to obtain 2/2 vent/sedation. morbidly obese Lungs: Other (decrease bs) Cardiovascular: S1, S2 Abdomen: Soft, Non-tender, Other (obese) Extremities: Other (lymphedema BLE ) Skin: Warm, Dry Labs Laboratory Tests Test 03/30/19 12:30 03/30/19 18:32 03/30/19 23:56 03/31/19 06:00 Glucose (Fingerstick) 102 mg/dL (70-99) 116 mg/dL (70-99) 104 mg/dL (70-99) 93 mg/dL (70-99) Test 03/31/19 07:45 03/31/19 08:45 03/31/19 11:24 03/31/19 17:22 O2 Saturation 92 % (92-99) Arterial Blood pH 7.45 (7.35-7.45) Arterial Blood pCO2 at Patient Temp 34 mmHg (35-46) Arterial Blood pO2 at Patient Temp 66 mmHg (75-108) Arterial Blood HCO3 23 mmol/L (21-28) Arterial Blood Base Excess -1 mmol/L (-3-3) FiO2 40 White Blood Count 17.2 x10^3/uL (4.0-11.0) Red Blood Count 4.33 x10^6/uL (4.30-5.70) Hemoglobin 10.4 g/dL (13.0-17.5) Hematocrit 33.1 % (39.0-53.0) Mean Corpuscular Volume 76 fL (79-100) Mean Corpuscular Hemoglobin 24 pg (25-35) Mean Corpuscular Hemoglobin Concent 31 g/dL (31-37) Red Cell Distribution Width 18.8 % (11.5-14.5) Platelet Count 312 x10^3/uL (140-400) Sodium Level 138 mmol/L (136-145) Potassium Level 4.6 mmol/L (3.5-5.1) Chloride Level 102 mmol/L (98-107) Carbon Dioxide Level 30 mmol/L (21-32) Anion Gap 6 (6-14) Blood Urea Nitrogen 41 mg/dL (8-26) Creatinine 0.6 mg/dL (0.7-1.3) Estimated GFR (Cockcroft-Gault) 174.0 BUN/Creatinine Ratio 68 (6-20) Glucose Level 114 mg/dL (70-99) Calcium Level 9.5 mg/dL (8.5-10.1) Total Bilirubin 1.1 mg/dL (0.2-1.0) Aspartate Amino Transf (AST/SGOT) 26 U/L (15-37) Alanine Aminotransferase (ALT/SGPT) 54 U/L (16-63) Alkaline Phosphatase 99 U/L (46-116) Total Protein 6.2 g/dL (6.4-8.2) Albumin 2.6 g/dL (3.4-5.0) Albumin/Globulin Ratio 0.7 (1.0-1.7) Glucose (Fingerstick) 95 mg/dL (70-99) 104 mg/dL (70-99) Test 04/01/19 00:09 04/01/19 06:10 04/01/19 08:00 Glucose (Fingerstick) 114 mg/dL (70-99) 87 mg/dL (70-99) O2 Saturation 95 % (92-99) Arterial Blood pH 7.41 (7.35-7.45) Arterial Blood pCO2 at Patient Temp 42 mmHg (35-46) Arterial Blood pO2 at Patient Temp 81 mmHg (75-108) Arterial Blood HCO3 26 mmol/L (21-28) Arterial Blood Base Excess 1 mmol/L (-3-3) FiO2 45 Laboratory Tests Test 03/31/19 17:22 04/01/19 00:09 04/01/19 06:10 04/01/19 08:00 Glucose (Fingerstick) 104 mg/dL (70-99) 114 mg/dL (70-99) 87 mg/dL (70-99) O2 Saturation 95 % (92-99) Arterial Blood pH 7.41 (7.35-7.45) Arterial Blood pCO2 at Patient Temp 42 mmHg (35-46) Arterial Blood pO2 at Patient Temp 81 mmHg (75-108) Arterial Blood HCO3 26 mmol/L (21-28) Arterial Blood Base Excess 1 mmol/L (-3-3) FiO2 45 Medications Active Scripts Medications Dose Route/Sig Max Daily Dose Days Date Category Hydrochlorothiazide Tablet (Hydrochlorothiazide) 25 Mg Tablet 25 Mg PO DAILY 03/10/19 Reported Norvasc (Amlodipine Besylate) 5 Mg Tablet 1 Tab PO DAILY 01/12/19 Rx Lisinopril 5 Mg Tablet 1 Tab PO DAILY 01/12/19 Rx Comments CXR 03/30 BILATERAL INFILTRATES. , overall improved basal atelectasis Impression . 1. Acute hypercarbic/hypoxic respiratory Failure due to ARDS , vaping related,oxygenation slowly improving on 40%, and PEEP of 5 2. Suspected VAP , Rx , currently off ABX 3.Hypertension (controlled) 4. Pre-renal Azotemia, improved 5. Pulm. HTN PA pressure 55 Normal EF 6. HX. of tobacco use 7. Morbid obesity Plan . 1. Continue with present assist control mode. will start weaning sedation again today. Did not do well while off sedation yesterday 2. high dose steroids ,initiated 03/16 , slow taper as tolerated 3. off abx at this time 4. no further fever 5. Continue bronchodilators. 6. Heparin for DVT prophylaxis 7 azotemia .renal following 8. tracheostomy if continues to have soa while off sedation 9. DNR.Continue aggressive supportive care discussed with RN and RT. We will follow along with you. MARIO ALLEN MD Apr 01, 2019 11:30
--- NOTE | 2019-04-01 13:50 | PDOC ---
[employer] PROGRESS NOTE Chief Complaint Chief Complaint Acute Hypercapnic Respiratory Failure/ARDS due to vaping Pulmonary Edema Bilateral Lung Infiltrates Obstructive sleep apnea OSMAN Increased Troponin Morbid Obesity Pulmonary HTN Tobacco use History of Present Illness History of Present Illness 04/01/19 Pt was seen and examined in the ICU Pt is sedated and on ventilation (Vent settings: AC 16/750/40% 5 PEEP) Pulm attempted to take Pt off ventilation on 03/31, however Pt was unable to remain off vent after 20 min Chart and labs reviewed O2 saturation was 97% D/w RN and respiratory therapist 03/31/19 Pt was seen and examined in ICU Pt is sedated and on ventilation (Vent settings: AC/16/750/40% 5 PEEP) Chart and labs reviewed Responded to request to blink O2 saturation was 97% 03/26/19 Pt seen and examined in ICU Pt is sedated and on ventilation (Vent settings: AC/16/600/60% 10 PEEP) Pt heart rate was in 50s Chart and labs reviewed JUANA RN 03/25/19 Pt seen and examined in the ICU Pt is sedated and on ventilation (Vent settings: AC/16/600/65% 11 PEEP) Chart and labs reviewed JUANA RN 03/24/19 Pt seen and examined in the ICU Pt is on ventilation (Vent settings: AC/16/600/70% 13 PEEP) Chart and labs reviewed JUANA RN 03/23/19 Pt seen/examined in the ICU Pt is still on ventilation (Vent settings: AC/16/600/80% 13 PEEP) JUANA RN Chart and labs reviewed 03/22/19 Pt seen/examined in the ICU Pt is still on ventilation (Vent settings: AC/16/600/80% 13 PEEP) JUANA RN Chart and labs reviewed Chart Reviewed 03/21/19 Pt seen and examined in the ICU Pt still on ventilation (vent settings: AC/16/600/75% 13 PEEP) JUANA Pulm SOIL FERTILITY SPECIALIST regarding starting patient on home medications for HTN 9�13�2019 Patient seen and examined in the ICU He is still ventilated AC/16/600/80% 14 PEEP 03/19/19 Pt seen and examined in ICU on vent (vent settings: AC/16/600/85% 14 PEEP) Pt responsive to voice In mitts for pt safety Pt sedated with versed, fentanyl, and precedex Rectal tube intact Fontana to BSD Has OG tube to LIS; ET tube placed JUANA RN 03/18/19 Pt seen and examined in ICU on vent (vent settings: AC/16/00/100% 14 PEEP) Pt sedated with versed, fentanyl, and precedex Rectal tube placed Fontana to BSD Has OG tube to LIS; ET tube placed JUANA RN Chart reviewed 03/17/19 Pt seen and examined in ICU on vent (AC/16/600/100 14peep) Pt has rectal tube and fontana to BSD Sedated with versed, fentanyl, and precedex Pt has ET tube and OG tube to LIS DW RN DW renal case manager Chart reviewed Vitals/I&O Vitals/I&O: Vital Signs Date Time Temp Pulse Resp B/P (MAP) Pulse Ox O2 Delivery O2 Flow Rate FiO2 04/01/19 12:05 100 Ventilator 04/01/19 12:00 93.0 04/01/19 11:00 56 15 106/63 (77) 04/01/19 08:00 98.6 98.6 I & O 03/31/19 03/31/19 04/01/19 15:00 23:00 07:00 Intake Total 400 ml 2265.84 ml 3110 ml Output Total 1070 ml 1010 ml 1475 ml Balance -670 ml 1255.84 ml 1635 ml Physical Exam Physical Exam: GENERAL: Orally intubated/ sedated - lightly, HEENT: opened eyes Pupils equal, nml conj OGT/ETT NECK: Supple LUNGS: dec bs at bases HEART: S1 and S2, regular. ABDOMEN: Obese, soft, +BS : Fontana in place fecal tube in place EXTREMITIES: Trace edema - MITTS SKIN: Chronic stasis dermatitis on the lower extremity. NEUROLOGIC: Sedated IVS; Old RIJ site clean. RUE - PICC clean General: No acute distress, Other (short neck , Mallampati 4 ON VENT) Heart: Regular rate (SR), Other (distante heart sounds) Lungs: Other (decrease bs) Abdomen: Normal bowel sounds, Soft, No tenderness, No hepatosplenomegaly, No masses Extremities: No clubbing, No cyanosis, No edema, Normal pulses, No tenderness/swelling Skin: No rashes, No breakdown, No significant lesion Labs Labs: Laboratory Tests Test 03/31/19 17:22 04/01/19 00:09 04/01/19 06:10 04/01/19 08:00 Glucose (Fingerstick) 104 mg/dL (70-99) 114 mg/dL (70-99) 87 mg/dL (70-99) O2 Saturation 95 % (92-99) Arterial Blood pH 7.41 (7.35-7.45) Arterial Blood pCO2 at Patient Temp 42 mmHg (35-46) Arterial Blood pO2 at Patient Temp 81 mmHg (75-108) Arterial Blood HCO3 26 mmol/L (21-28) Arterial Blood Base Excess 1 mmol/L (-3-3) FiO2 45 Review of Systems Review of Systems: Unable to obtain ROS due to Pt being sedated Assessment and Plan Assessmemt and Plan Problems Medical Problems: (1) CHF exacerbation Status: Acute (2) COPD exacerbation Status: Acute (3) Hypoxia Status: Acute (4) NSTEMI (non-ST elevated myocardial infarction) Status: Acute (5) Respiratory failure Status: Acute Assessment ARDS due to vaping Pulmonary edema Bilateral lung infiltrates Obstructive sleep apnea Pulmonary HTN Obesity Plan ICU monitoring DVT prophylaxis Continue vent weaning Appreciate input from pulmonology OG feeds Home meds DNR Total time 31 min Comment Review of Relevant I have reviewed the following items peter (where applicable) has been applied. TRICIA NAVA III DO Apr 01, 2019 13:50
--- NOTE | 2019-04-01 16:20 | NUR ---
Wound Care Wound care consult for wound to right lower leg. Pt has open blister from swelling, swelling has resolved. Pt has hard dry lymphedema skin to BLE, Recommend to apply ammonium lactate lotion BID. WC will continue to follow for possible changes
[2019-04-01] MEDS: AMMONIUM LACTATE 12% TOPICAL LOTION 226GM BOTTLE. TP SCH (21:51)
[2019-04-02] VITALS (26 sets, daily range): BP systolic 65–180; BP diastolic 41–101
[2019-04-02] MEDS: PROPOFOL 100 ML IV PRN ×8 (00:43→15:10)
[2019-04-02 05:37] LABS: CALCIUM 9.2 mg/dL (8.5-10.1); CREATININE 0.7 mg/dL (0.7-1.3); GFR 145.6; POTASSIUM 4.3 mmol/L (3.5-5.1)
[2019-04-02] MEDS: INSULIN LISPRO 300 UNITS/3 ML VIAL. SQ SCH ×4 (06:00→18:00)
[2019-04-02] MEDS: methylPREDNISolone SOD SUCC PF 40 MG/ML VIAL. IV SCH (06:28)
[2019-04-02] MEDS: HEPARIN for SUB-Q USE 5,000 UNIT/ML VIAL. SQ SCH ×3 (06:29→20:59)
[2019-04-02] MEDS: IPRATRPIUM/ALBUTEROL 0.5/2.5MG 3 ML NEBU. NEB SCH ×4 (07:42→20:26)
[2019-04-02] MEDS: ASPIRIN CHEWABLE 81 MG TABLET. PO SCH (07:55)
[2019-04-02] MEDS: CHLORHEXIDINE 0.12% 15 ML MOUTHWASH. MM SCH ×2 (07:55→21:00)
[2019-04-02] MEDS: amLODIPine BESYLATE 10 MG TABLET PO SCH (07:55)
[2019-04-02] MEDS: LISINOPRIL 5 MG TABLET. PO SCH (07:55)
[2019-04-02] MEDS: AMMONIUM LACTATE 12% TOPICAL LOTION 226GM BOTTLE. TP SCH ×2 (07:56→21:00)
[2019-04-02] MEDS: FAMOTIDINE 20 MG/2 ML VIAL IVP SCH ×2 (07:56→21:00)
[2019-04-02 08:06] LABS: BASE EXCESS ABG -2 mmol/L (-3-3); HCO3 ABG 22 mmol/L (21-28); PCO2 ABG 35 mmHg (35-46); PO2 ABG 88 mmHg (75-108); SAT O2 ABG 96 % (92-99)
[2019-04-02 08:07] LABS: FIO2 ABG 40
--- NOTE | 2019-04-02 08:33 | RAD ---
CHEST AP ONLY Clinical Indication: On ventilator Comparison: 04/01/2019 portable chest x-ray exam. Findings: Portable semiupright frontal view of the chest was obtained. Left costophrenic angle was not fully included limiting assessment at this site. An endotracheal and enteric tube again seen. Right-sided catheter again noted. Heart size is borderline enlarged. Ventricular congestion noted. Right basilar atelectasis noted. Small right pleural effusion noted. Retrocardiac atelectasis suggested. No pneumothorax. IMPRESSION: Improved right basilar pulmonary aeration. Pulmonary vascular congestion again seen. Electronically signed by: Ethan Teran MD (04/02/2019 8:30 AM) [facility]
--- NOTE | 2019-04-02 11:05 | PDOC ---
[employer] PROGRESS NOTE Chief Complaint Chief Complaint Acute Hypercapnic Respiratory Failure/ARDS due to vaping Pulmonary Edema Bilateral Lung Infiltrates Obstructive sleep apnea OSMAN Increased Troponin Morbid Obesity Pulmonary HTN Tobacco use History of Present Illness History of Present Illness 04/02/19 Pt was seen and examined in the ICU Still on ventilation and sedated (Vent settings: AC/16/750/40% 5 PEEP) Attempt made to take patient off ventilation on 04/01, was unsuccessful Charts and labs reviewed JUANA RN CXR shows right basilar atelectasis, pulmonary interstitial edema 04/01/19 Pt was seen and examined in the ICU Pt is sedated and on ventilation (Vent settings: AC 16/750/40% 5 PEEP) Pulm attempted to take Pt off ventilation on 03/31, however Pt was unable to remain off vent after 20 min Chart and labs reviewed O2 saturation was 97% D/w RN and respiratory therapist 03/31/19 Pt was seen and examined in ICU Pt is sedated and on ventilation (Vent settings: AC/16/750/40% 5 PEEP) Chart and labs reviewed Responded to request to blink O2 saturation was 97% 03/26/19 Pt seen and examined in ICU Pt is sedated and on ventilation (Vent settings: AC/16/600/60% 10 PEEP) Pt heart rate was in 50s Chart and labs reviewed DW RN 03/25/19 Pt seen and examined in the ICU Pt is sedated and on ventilation (Vent settings: AC/16/600/65% 11 PEEP) Chart and labs reviewed JUANA RN 03/24/19 Pt seen and examined in the ICU Pt is on ventilation (Vent settings: AC/16/600/70% 13 PEEP) Chart and labs reviewed JUANA RN 03/23/19 Pt seen/examined in the ICU Pt is still on ventilation (Vent settings: AC/16/600/80% 13 PEEP) JUANA RN Chart and labs reviewed 03/22/19 Pt seen/examined in the ICU Pt is still on ventilation (Vent settings: AC/16/600/80% 13 PEEP) JUANA RN Chart and labs reviewed Chart Reviewed 03/21/19 Pt seen and examined in the ICU Pt still on ventilation (vent settings: AC/16/600/75% 13 PEEP) JUANA Pulm MEDICAL RECRUITER regarding starting patient on home medications for HTN 9�13�2019 Patient seen and examined in the ICU He is still ventilated AC/16/600/80% 14 PEEP 03/19/19 Pt seen and examined in ICU on vent (vent settings: AC/16/600/85% 14 PEEP) Pt responsive to voice In mitts for pt safety Pt sedated with versed, fentanyl, and precedex Rectal tube intact Fontana to BSD Has OG tube to LIS; ET tube placed JUANA RN 03/18/19 Pt seen and examined in ICU on vent (vent settings: AC/16/00/100% 14 PEEP) Pt sedated with versed, fentanyl, and precedex Rectal tube placed Fontana to BSD Has OG tube to LIS; ET tube placed DW RN Chart reviewed 03/17/19 Pt seen and examined in ICU on vent (AC/16/600/100 14peep) Pt has rectal tube and fontana to BSD Sedated with versed, fentanyl, and precedex Pt has ET tube and OG tube to LIS DW RN DW home health care case manager Chart reviewed Vitals/I&O Vitals/I&O: Vital Signs Date Time Temp Pulse Resp B/P (MAP) Pulse Ox O2 Delivery O2 Flow Rate FiO2 04/02/19 10:00 98 18 139/69 (92) 97 Ventilator 04/02/19 08:00 93.0 04/02/19 08:00 98.1 98.1 I & O 04/01/19 04/01/19 04/02/19 15:00 23:00 07:00 Intake Total 421.72 ml 1769.4 ml 2610 ml Output Total 1620 ml 1575 ml 835 ml Balance -1198.28 ml 194.4 ml 1775 ml Physical Exam Physical Exam: GENERAL: Orally intubated/ sedated - lightly, HEENT: opened eyes Pupils equal, nml conj OGT/ETT NECK: Supple LUNGS: dec bs at bases HEART: S1 and S2, regular. ABDOMEN: Obese, soft, +BS : Fontana in place fecal tube in place EXTREMITIES: Trace edema - MITTS SKIN: Chronic stasis dermatitis on the lower extremity. NEUROLOGIC: Sedated IVS; Old RIJ site clean. RUE - PICC clean General: No acute distress, Other (short neck , Mallampati 4 ON VENT) Heart: Regular rate (SR), Other (distante heart sounds) Lungs: Other (decrease bs) Abdomen: Normal bowel sounds, Soft, No tenderness, No hepatosplenomegaly, No masses Extremities: No clubbing, No cyanosis, No edema, Normal pulses, No tenderness/swelling Skin: No rashes, No breakdown, No significant lesion Labs Labs: Laboratory Tests Test 04/01/19 11:36 04/01/19 18:43 04/02/19 00:09 04/02/19 05:05 Glucose (Fingerstick) 94 mg/dL (70-99) 107 mg/dL (70-99) 106 mg/dL (70-99) Sodium Level 136 mmol/L (136-145) Potassium Level 4.3 mmol/L (3.5-5.1) Chloride Level 101 mmol/L (98-107) Carbon Dioxide Level 26 mmol/L (21-32) Anion Gap 9 (6-14) Blood Urea Nitrogen 42 mg/dL (8-26) Creatinine 0.7 mg/dL (0.7-1.3) Estimated GFR (Cockcroft-Gault) 145.6 Glucose Level 110 mg/dL (70-99) Calcium Level 9.2 mg/dL (8.5-10.1) Test 04/02/19 05:19 04/02/19 07:45 Glucose (Fingerstick) 107 mg/dL (70-99) O2 Saturation 96 % (92-99) Arterial Blood pH 7.42 (7.35-7.45) Arterial Blood pCO2 at Patient Temp 35 mmHg (35-46) Arterial Blood pO2 at Patient Temp 88 mmHg (75-108) Arterial Blood HCO3 22 mmol/L (21-28) Arterial Blood Base Excess -2 mmol/L (-3-3) FiO2 40 Review of Systems Review of Systems: No nausea, no vomiting No chest pain, no palpitations Assessment and Plan Assessmemt and Plan Problems Medical Problems: (1) CHF exacerbation Status: Acute (2) COPD exacerbation Status: Acute (3) Hypoxia Status: Acute (4) NSTEMI (non-ST elevated myocardial infarction) Status: Acute (5) Respiratory failure Status: Acute Assessment ARDS CHF exacerbation NSTEMI Bilateral lung infiltrates Plan Continue attempts to wean off ventilation ICU monitoring DVT prophylaxis Continue to consult with pulmonology OG feeds Might need trach? Total time33 min Comment Review of Relevant I have reviewed the following items peter (where applicable) has been applied. Medications: Current Medications Medications (Trade) Dose Ordered Sig/Stefanie Route PRN Reason Start Time Stop Time Status Last Admin Dose Admin Lactic Acid (Lac-Hydrin) 1 zuri BID TP 04/01/19 21:00 04/02/19 07:56 TRICIA NAVA III DO Apr 02, 2019 11:05
--- NOTE | 2019-04-02 11:19 | PDOC ---
PULMONARY PROGRESS NOTES Subjective Patient with respiratory failure secondary to ARDS from vaping. remains on vent, sedated on propofol-- Ventilator support decreasing, now on 40% FIO2, 5 of PEEP .had paradoxical breathing once sedation was off this am. did better with cpap 04/01 had copious secretions today suctioned Vitals Vital Signs Date Time Temp Pulse Resp B/P (MAP) Pulse Ox O2 Delivery O2 Flow Rate FiO2 04/02/19 10:00 98 18 139/69 (92) 97 Ventilator 04/02/19 08:00 93.0 04/02/19 08:00 98.1 98.1 Comments unable to obtain 2/2 vent/sedation. morbidly obese Lungs: Other (decrease bs) Cardiovascular: S1, S2 Abdomen: Soft, Non-tender, Other (obese) Extremities: Other (lymphedema BLE ) Skin: Warm, Dry Labs Laboratory Tests Test 03/31/19 11:24 03/31/19 17:22 04/01/19 00:09 04/01/19 06:10 Glucose (Fingerstick) 95 mg/dL (70-99) 104 mg/dL (70-99) 114 mg/dL (70-99) 87 mg/dL (70-99) Test 04/01/19 08:00 04/01/19 11:36 04/01/19 18:43 04/02/19 00:09 O2 Saturation 95 % (92-99) Arterial Blood pH 7.41 (7.35-7.45) Arterial Blood pCO2 at Patient Temp 42 mmHg (35-46) Arterial Blood pO2 at Patient Temp 81 mmHg (75-108) Arterial Blood HCO3 26 mmol/L (21-28) Arterial Blood Base Excess 1 mmol/L (-3-3) FiO2 45 Glucose (Fingerstick) 94 mg/dL (70-99) 107 mg/dL (70-99) 106 mg/dL (70-99) Test 04/02/19 05:05 04/02/19 05:19 04/02/19 07:45 Sodium Level 136 mmol/L (136-145) Potassium Level 4.3 mmol/L (3.5-5.1) Chloride Level 101 mmol/L (98-107) Carbon Dioxide Level 26 mmol/L (21-32) Anion Gap 9 (6-14) Blood Urea Nitrogen 42 mg/dL (8-26) Creatinine 0.7 mg/dL (0.7-1.3) Estimated GFR (Cockcroft-Gault) 145.6 Glucose Level 110 mg/dL (70-99) Calcium Level 9.2 mg/dL (8.5-10.1) Glucose (Fingerstick) 107 mg/dL (70-99) O2 Saturation 96 % (92-99) Arterial Blood pH 7.42 (7.35-7.45) Arterial Blood pCO2 at Patient Temp 35 mmHg (35-46) Arterial Blood pO2 at Patient Temp 88 mmHg (75-108) Arterial Blood HCO3 22 mmol/L (21-28) Arterial Blood Base Excess -2 mmol/L (-3-3) FiO2 40 Laboratory Tests Test 04/01/19 11:36 04/01/19 18:43 04/02/19 00:09 04/02/19 05:05 Glucose (Fingerstick) 94 mg/dL (70-99) 107 mg/dL (70-99) 106 mg/dL (70-99) Sodium Level 136 mmol/L (136-145) Potassium Level 4.3 mmol/L (3.5-5.1) Chloride Level 101 mmol/L (98-107) Carbon Dioxide Level 26 mmol/L (21-32) Anion Gap 9 (6-14) Blood Urea Nitrogen 42 mg/dL (8-26) Creatinine 0.7 mg/dL (0.7-1.3) Estimated GFR (Cockcroft-Gault) 145.6 Glucose Level 110 mg/dL (70-99) Calcium Level 9.2 mg/dL (8.5-10.1) Test 04/02/19 05:19 04/02/19 07:45 Glucose (Fingerstick) 107 mg/dL (70-99) O2 Saturation 96 % (92-99) Arterial Blood pH 7.42 (7.35-7.45) Arterial Blood pCO2 at Patient Temp 35 mmHg (35-46) Arterial Blood pO2 at Patient Temp 88 mmHg (75-108) Arterial Blood HCO3 22 mmol/L (21-28) Arterial Blood Base Excess -2 mmol/L (-3-3) FiO2 40 Medications Active Scripts Medications Dose Route/Sig Max Daily Dose Days Date Category Hydrochlorothiazide Tablet (Hydrochlorothiazide) 25 Mg Tablet 25 Mg PO DAILY 03/10/19 Reported Norvasc (Amlodipine Besylate) 5 Mg Tablet 1 Tab PO DAILY 01/12/19 Rx Lisinopril 5 Mg Tablet 1 Tab PO DAILY 01/12/19 Rx Comments CXR 04/02 basal atelectasis , overall improved Impression . 1. Acute hypercarbic/hypoxic respiratory Failure due to ARDS , vaping related, on 40%, and PEEP of 5 2. Suspected VAP , Rx , currently off ABX 3.Hypertension (controlled) 4. Pre-renal Azotemia, improved 5. Pulm. HTN PA pressure 55 Normal EF 6. HX. of tobacco use 7. Morbid obesity Plan . 1. Continue with present assist control mode. will start weaning sedation again today. Did do well while off sedation yesterday on CPAP/ suctioned secretions this am 2. steroids ,initiated 03/16 , taper / EXTRA LASIX TODAY 3. off abx at this time 4. no further fever 5. Continue bronchodilators. 6. Heparin for DVT prophylaxis 7 azotemia .renal following 8. tracheostomy if continues to have soa while off sedation 9. DNR.Continue aggressive supportive care discussed with RN and RT. We will follow along with you. MARIO ALLEN MD Apr 02, 2019 11:19
[2019-04-02] MEDS ORDERED: FUROSEMIDE 40 MG/4 ML VIAL. IVP ONE ×2 (11:30→12:00)
--- NOTE | 2019-04-02 14:34 | NUR ---
SS following up with discharge planning. Pt remains on the vent at this time. SS will continue to follow for discharge planning. HCF[facility] continuing to follow for self pay status.
[2019-04-02] MEDS: DEXMEDETOMIDINE 400 MCG in IV NORMAL SALINE 100ML 96 ML IV PRN (16:27)
--- NOTE | 2019-04-02 21:42 | NUR ---
nore decrease in BP 60/[address] Infante. 1l NS bolus given. BP 60/54
[2019-04-02] MEDS ORDERED: IV NORMAL SALINE 1000ML BAG 1,000 ML IV ONE (22:00)
[2019-04-03] VITALS (23 sets, daily range): BP systolic 80–129; BP diastolic 40–96
[2019-04-03] MEDS: DEXMEDETOMIDINE 400 MCG in IV NORMAL SALINE 100ML 96 ML IV PRN ×3 (00:38→11:03)
[2019-04-03] MEDS: HEPARIN for SUB-Q USE 5,000 UNIT/ML VIAL. SQ SCH ×3 (05:42→21:25)
[2019-04-03] MEDS: INSULIN LISPRO 300 UNITS/3 ML VIAL. SQ SCH ×4 (05:46→17:50)
--- NOTE | 2019-04-03 07:46 | RAD ---
CHEST AP ONLY Clinical Indication: Ventilator Comparison: 04/02/2019 AP view of the chest. Findings: Portable supine frontal view of chest was obtained. Right-sided catheter again seen. Endotracheal tube terminates 5.6 mL from the mariely. Enteric tube again seen. Heart size is mildly enlarged. Pulmonary vascular congestion and interstitial edema noted. Moderate decrease in bibasilar atelectasis is noted. There is no pneumothorax. No pleural effusion is appreciated. No acute bone abnormality. IMPRESSION: Congestive heart failure. Notable improvement in bibasilar pulmonary aeration.. Electronically signed by: Ethan Teran MD (04/03/2019 7:44 AM) [facility]
[2019-04-03] MEDS: CHLORHEXIDINE 0.12% 15 ML MOUTHWASH. MM SCH ×2 (07:55→21:00)
[2019-04-03] MEDS: FAMOTIDINE 20 MG/2 ML VIAL IVP SCH ×2 (07:55→21:26)
[2019-04-03] MEDS: SCOPOLAMINE 1.5MG PATCH. TD SCH (07:56)
[2019-04-03] MEDS: methylPREDNISolone SOD SUCC PF 40 MG/ML VIAL. IV SCH (07:56)
[2019-04-03] MEDS: AMMONIUM LACTATE 12% TOPICAL LOTION 226GM BOTTLE. TP SCH ×2 (07:56→21:26)
[2019-04-03] MEDS: ASPIRIN CHEWABLE 81 MG TABLET. PO SCH (07:56)
[2019-04-03] MEDS: IPRATRPIUM/ALBUTEROL 0.5/2.5MG 3 ML NEBU. NEB SCH ×4 (08:52→20:08)
[2019-04-03] MEDS: LISINOPRIL 5 MG TABLET. PO SCH (09:00)
[2019-04-03] MEDS: amLODIPine BESYLATE 10 MG TABLET PO SCH (09:00)
[2019-04-03 09:14] LABS: BASE EXCESS ABG 0 mmol/L (-3-3); HCO3 ABG 24 mmol/L (21-28); PCO2 ABG 40 mmHg (35-46); PO2 ABG 86 mmHg (75-108); SAT O2 ABG 95 % (92-99)
[2019-04-03 09:15] LABS: FIO2 ABG 40
[2019-04-03 10:45] LABS: BASO % 0 % (0-3); EOS % 0 % (0-3); HEMATOCRIT 24.6 % (39.0-53.0); HEMOGLOBIN 7.6 g/dL (13.0-17.5); LYMPH # 0.8 x10^3/uL (1.0-4.8); LYMPH % 5 % (24-48); MEAN CORPUSCULAR HEMOGLOBIN 24 pg (25-35); MEAN CORPUSCULAR HGB CONC 31 g/dL (31-37); MEAN CORPUSCULAR VOLUME 77 fL (79-100); MONO # 1.2 x10^3/uL (0.0-1.1); MONO % 7 % (0-9); NEUT # 14.9 x10^3/uL (1.8-7.7); NEUT % 88 % (31-73); PLATELET COUNT 207 x10^3/uL (140-400); RED BLOOD COUNT 3.18 x10^6/uL (4.30-5.70); RED CELL DISTRIBUTION WIDTH 19.1 % (11.5-14.5); WHITE BLOOD COUNT 16.9 x10^3/uL (4.0-11.0)
--- NOTE | 2019-04-03 10:52 | PDOC ---
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 ARDS, respiratory failure, COPD Morbid obesity Sepsis Acute renal failure Plan Continue current management No need for anticonvulsants Subjective None Objective Vital Signs Date Time Temp Pulse Resp B/P (MAP) Pulse Ox O2 Delivery O2 Flow Rate FiO2 04/03/19 09:05 100 04/03/19 09:00 96 22 103/63 (76) Ventilator 04/03/19 07:39 99.4 99.4 04/03/19 04:36 93.0 Intake and Output 04/03/19 07:00 Intake Total 1405 ml Output Total 4060 ml Balance -2655 ml IV Total 205 ml Tube Feeding 1200 ml Output Urine Total 4060 ml Gastric Drainage Total 0 ml PHYSICAL EXAM Lightly sedated on ventilator, opens eyes to voice, does not follow commands PERRL EOMI CN: no focal findings. Muscle tone: normal. Muscle strength: moves all extremities DTR: 1+ Plantar reflex: silent Gait: not examined in bed. Sensory exam: no abnormal findings. No cerebellar signs elicited. Review of Relevant I have reviewed the following items peter (where applicable) has been applied. Labs Laboratory Tests Test 04/01/19 11:36 04/01/19 18:43 04/02/19 00:09 04/02/19 05:05 Glucose (Fingerstick) 94 mg/dL (70-99) 107 mg/dL (70-99) 106 mg/dL (70-99) Sodium Level 136 mmol/L (136-145) Potassium Level 4.3 mmol/L (3.5-5.1) Chloride Level 101 mmol/L (98-107) Carbon Dioxide Level 26 mmol/L (21-32) Anion Gap 9 (6-14) Blood Urea Nitrogen 42 mg/dL (8-26) Creatinine 0.7 mg/dL (0.7-1.3) Estimated GFR (Cockcroft-Gault) 145.6 Glucose Level 110 mg/dL (70-99) Calcium Level 9.2 mg/dL (8.5-10.1) Test 04/02/19 05:19 04/02/19 07:45 04/02/19 11:16 04/02/19 18:18 Glucose (Fingerstick) 107 mg/dL (70-99) 119 mg/dL (70-99) 98 mg/dL (70-99) O2 Saturation 96 % (92-99) Arterial Blood pH 7.42 (7.35-7.45) Arterial Blood pCO2 at Patient Temp 35 mmHg (35-46) Arterial Blood pO2 at Patient Temp 88 mmHg (75-108) Arterial Blood HCO3 22 mmol/L (21-28) Arterial Blood Base Excess -2 mmol/L (-3-3) FiO2 40 Test 04/03/19 05:46 04/03/19 09:05 04/03/19 10:23 Glucose (Fingerstick) 123 mg/dL (70-99) O2 Saturation 95 % (92-99) Arterial Blood pH 7.41 (7.35-7.45) Arterial Blood pCO2 at Patient Temp 40 mmHg (35-46) Arterial Blood pO2 at Patient Temp 86 mmHg (75-108) Arterial Blood HCO3 24 mmol/L (21-28) Arterial Blood Base Excess 0 mmol/L (-3-3) FiO2 40 White Blood Count 16.9 x10^3/uL (4.0-11.0) Red Blood Count 3.18 x10^6/uL (4.30-5.70) Hemoglobin 7.6 g/dL (13.0-17.5) Hematocrit 24.6 % (39.0-53.0) Mean Corpuscular Volume 77 fL (79-100) Mean Corpuscular Hemoglobin 24 pg (25-35) Mean Corpuscular Hemoglobin Concent 31 g/dL (31-37) Red Cell Distribution Width 19.1 % (11.5-14.5) Platelet Count 207 x10^3/uL (140-400) Neutrophils (%) (Auto) 88 % (31-73) Lymphocytes (%) (Auto) 5 % (24-48) Monocytes (%) (Auto) 7 % (0-9) Eosinophils (%) (Auto) 0 % (0-3) Basophils (%) (Auto) 0 % (0-3) Neutrophils # (Auto) 14.9 x10^3/uL (1.8-7.7) Lymphocytes # (Auto) 0.8 x10^3/uL (1.0-4.8) Monocytes # (Auto) 1.2 x10^3/uL (0.0-1.1) Eosinophils # (Auto) 0.0 x10^3/uL (0.0-0.7) Basophils # (Auto) 0.0 x10^3/uL (0.0-0.2) Laboratory Tests Test 04/02/19 11:16 04/02/19 18:18 04/03/19 05:46 04/03/19 09:05 Glucose (Fingerstick) 119 mg/dL (70-99) 98 mg/dL (70-99) 123 mg/dL (70-99) O2 Saturation 95 % (92-99) Arterial Blood pH 7.41 (7.35-7.45) Arterial Blood pCO2 at Patient Temp 40 mmHg (35-46) Arterial Blood pO2 at Patient Temp 86 mmHg (75-108) Arterial Blood HCO3 24 mmol/L (21-28) Arterial Blood Base Excess 0 mmol/L (-3-3) FiO2 40 Test 04/03/19 10:23 White Blood Count 16.9 x10^3/uL (4.0-11.0) Red Blood Count 3.18 x10^6/uL (4.30-5.70) Hemoglobin 7.6 g/dL (13.0-17.5) Hematocrit 24.6 % (39.0-53.0) Mean Corpuscular Volume 77 fL (79-100) Mean Corpuscular Hemoglobin 24 pg (25-35) Mean Corpuscular Hemoglobin Concent 31 g/dL (31-37) Red Cell Distribution Width 19.1 % (11.5-14.5) Platelet Count 207 x10^3/uL (140-400) Neutrophils (%) (Auto) 88 % (31-73) Lymphocytes (%) (Auto) 5 % (24-48) Monocytes (%) (Auto) 7 % (0-9) Eosinophils (%) (Auto) 0 % (0-3) Basophils (%) (Auto) 0 % (0-3) Neutrophils # (Auto) 14.9 x10^3/uL (1.8-7.7) Lymphocytes # (Auto) 0.8 x10^3/uL (1.0-4.8) Monocytes # (Auto) 1.2 x10^3/uL (0.0-1.1) Eosinophils # (Auto) 0.0 x10^3/uL (0.0-0.7) Basophils # (Auto) 0.0 x10^3/uL (0.0-0.2) Microbiology 03/16/19 - Final, Complete 03/16/19 - Final, Complete 03/16/19 Gram Stain Evaluation - Final, Complete 03/16/19 Sputum Culture - Final, Complete 03/16/19 Sputum Result 1 - Final, Complete 03/16/19 Blood Culture - Final, Complete NO GROWTH AFTER 5 DAYS 03/09/19 Urine Culture - Final, Complete 03/09/19 Urine Culture Result 1 (WIL) - Final, Complete Medications Current Medications Albuterol/ Ipratropium (Duoneb) 3 ml 1X ONCE NEB Last administered on 03/09/19at 21:21; Start 03/09/19 at 21:30; Stop 03/09/19 at 21:31; Status DC Dexamethasone Sodium Phosphate (Decadron) 10 mg 1X ONCE IV Last administered on 03/09/19at 22:29; Start 03/09/19 at 22:00; Stop 03/09/19 at 22:01; Status DC Propofol 100 ml @ 0 mls/hr CONT PRN IV SEE PROTOCOL Last administered on 03/10/19at 07:19; Start 03/09/19 at 22:30; Stop 03/10/19 at 07:28; Status DC Fentanyl Citrate (Fentanyl 2ml Vial) 50 mcg PRN Q1HR PRN IV SEE COMMENTS; Start 03/09/19 at 22:30; Stop 03/10/19 at 07:28; Status DC Chlorhexidine Gluconate (Peridex) 15 ml BID MM Last administered on 04/03/19at 07:55; Start 03/10/19 at 09:00 Famotidine (Pepcid Vial) 20 mg BID IVP Last administered on 04/03/19at 07:55; Start 03/10/19 at 09:00 Propofol 50 ml @ As Directed STK-MED ONCE IV ; Start 03/09/19 at 22:28; Stop 03/09/19 at 22:28; Status DC Albuterol/ Ipratropium (Duoneb) 3 ml 1X ONCE NEB Last administered on 03/10/19at 02:04; Start 03/09/19 at 23:00; Stop 03/09/19 at 23:01; Status DC Albuterol/ Ipratropium (Duoneb) 3 ml 1X ONCE NEB Last administered on 03/10/19at 02:04; Start 03/09/19 at 23:00; Stop 03/09/19 at 23:01; Status DC Fentanyl Citrate (Fentanyl 2ml Vial) 100 mcg 1X ONCE IV Last administered on 03/09/19at 23:31; Start 03/09/19 at 23:30; Stop 03/09/19 at 23:31; Status DC Bumetanide (Bumex) 1 mg 1X ONCE IV Last administered on 03/10/19at 00:21; Start 03/10/19 at 00:00; Stop 03/10/19 at 00:01; Status DC Heparin Sodium (Porcine) (Heparin Sodium) 4,000 unit 1X ONCE IV Last a dministered on 03/10/19at 00:31; Start 03/10/19 at 00:00; Stop 03/10/19 at 00:01; Status DC Heparin Sodium/ Dextrose 500 ml @ 0 mls/hr CONT PRN IV PER PROTOCOL Last administered on 03/10/19at 23:34; Start 03/09/19 at 23:45; Stop 03/11/19 at 16:13; Status DC Heparin Sodium (Porcine) (Heparin Sodium) 5,500 unit PRN Q6HRS PRN IV FOR UFH LEVEL LESS THAN 0.2 Last administered on 03/11/19at 00:57; Start 03/09/19 at 23:45; Stop 03/11/19 at 16:13; Status DC Aspirin (Aspirin Rectal Supp) 300 mg 1X ONCE IA Last administered on 03/10/19at 03:42; Start 03/10/19 at 00:00; Stop 03/10/19 at 00:01; Status DC Propofol 50 ml @ As Directed STK-MED ONCE IV ; Start 03/09/19 at 23:38; Stop 03/09/19 at 23:38; Status DC Propofol 50 ml @ As Directed STK-MED ONCE IV ; Start 03/09/19 at 23:38; Stop 03/09/19 at 23:38; Status DC Piperacillin Sod/ Tazobactam Sod 4.5 gm/Sodium Chloride 100 ml @ 200 mls/hr 1X ONCE IV Last administered on 03/10/19at 05:19; Start 03/10/19 at 00:30; Stop 03/10/19 at 00:59; Status DC Propofol 50 ml @ As Directed STK-MED ONCE IV ; Start 03/10/19 at 00:51; Stop 03/10/19 at 00:51; Status DC Propofol 50 ml @ As Directed STK-MED ONCE IV ; Start 03/10/19 at 01:14; Stop 03/10/19 at 01:15; Status DC Fentanyl Citrate (Fentanyl 2ml Vial) 100 mcg 1X ONCE IV Last administered on 03/10/19at 01:26; Start 03/10/19 at 01:45; Stop 03/10/19 at 01:46; Status DC Clonidine HCl (Catapres) 0.1 mg 1X ONCE PO ; Start 03/10/19 at 01:30; Stop 03/10/19 at 01:34; Status DC Midazolam HCl (Versed) 5 mg 1X ONCE IV Last administered on 03/10/19at 01:28; Start 03/10/19 at 01:30; Stop 03/10/19 at 01:34; Status DC Propofol 50 ml @ As Directed STK-MED ONCE IV ; Start 03/10/19 at 02:08; Stop 03/10/19 at 02:09; Status DC Propofol 50 ml @ As Directed STK-MED ONCE IV ; Start 03/10/19 at 02:36; Stop 03/10/19 at 02:36; Status DC Rocuronium [place] (Zemuron) 50 mg STK-MED ONCE .ROUTE ; Start 03/10/19 at 05:15; Stop 03/10/19 at 05:15; Status DC Etomidate (Amidate) 20 mg STK-MED ONCE IV ; Start 03/10/19 at 05:15; Stop 03/10/19 at 05:16; Status DC Fentanyl Citrate 30 ml @ 0 mls/hr CONT PRN IV SEE PROTOCOL Last administered on 04/03/19at 09:05; Start 03/10/19 at 07:30 Propofol 100 ml @ 0 mls/hr CONT PRN IV SEE PROTOCOL Last administered on 04/02/19at 15:10; Start 03/10/19 at 07:30 Fentanyl Citrate (Fentanyl 2ml Vial) 25 mcg PRN Q1HR PRN IV SEE COMMENTS; Start 03/10/19 at 07:30 Fentanyl Citrate (Fentanyl 2ml Vial) 50 mcg PRN Q1HR PRN IV SEE COMMENTS; Start 03/10/19 at 07:30 Artificial Tears (Artificial Tears) 1 drop PRN Q1HR PRN OU DRY EYE, 1ST CHOICE Last administered on 03/13/19at 13:32; Start 03/10/19 at 07:30 Famotidine (Pepcid Vial) 20 mg BID IVP ; Start 03/10/19 at 09:00; Status UNV Morphine Sulfate (Morphine Sulfate) 2 mg PRN Q1HR PRN IV SEE COMMENTS. Last administered on 03/25/19at 09:18; Start 03/10/19 at 07:30 Morphine Sulfate (Morphine Sulfate) 4 mg PRN Q1HR PRN IV SEE COMMENTS. Last administered on 03/31/19at 10:50; Start 03/10/19 at 07:30 Midazolam HCl 100 ml @ 0 mls/hr CONT PRN IV SEE PROTOCOL Last administered on 04/01/19at 02:07; Start 03/10/19 at 07:30 Levofloxacin/ Dextrose (Levaquin Per Pharmacy) 1 each PRN DAILY PRN MC SEE COMMENTS; Start 03/10/19 at 08:15; Stop 03/14/19 at 09:25; Status DC Albuterol/ Ipratropium (Duoneb) 3 ml RTQID NEB Last administered on 04/03/19at 08:52; Start 03/10/19 at 12:00 Sodium Chloride 1,000 ml @ 100 mls/hr Q10H IV Last administered on 03/10/19at 23:34; Start 03/10/19 at 08:15; Stop 03/11/19 at 16:02; Status DC Amlodipine Besylate (Norvasc) 5 mg DAILY PO Last administered on 03/10/19at 09:13; Start 03/10/19 at 09:00; Stop 03/10/19 at 10:04; Status DC Hydrochlorothiazide (Hydrodiuril) 25 mg DAILY PO Last administered on 03/10/19at 09:13; Start 03/10/19 at 09:00; Stop 03/10/19 at 10:04; Status DC Lisinopril (Prinivil) 5 mg DAILY PO Last administered on 03/10/19at 09:13; Start 03/10/19 at 09:00; Stop 03/10/19 at 10:04; Status DC Levofloxacin/ Dextrose 100 ml @ 100 mls/hr Q24H IV Last administered on 03/14/19at 08:10; Start 03/10/19 at 09:00; Stop 03/14/19 at 09:25; Status DC Aspirin (Amanda Aspirin) 325 mg 1X ONCE PO Last administered on 03/10/19at 10:55; Start 03/10/19 at 10:30; Stop 03/10/19 at 10:31; Status DC Aspirin (Children'S Aspirin) 81 mg DAILYWBKFT PO Last administered on 04/03/19at 07:56; Start 03/11/19 at 08:00 Amlodipine Besylate (Norvasc) 10 mg DAILY PO Last administered on 03/11/19at 09:37; Start 03/11/19 at 09:00; Stop 03/11/19 at 12:50; Status DC Hydralazine HCl (Apresoline Inj) 10 mg PRN Q4HRS PRN IVP ELEVATED BP, SEE COM MENTS; Start 03/10/19 at 10:15; Stop 03/12/19 at 09:37; Status DC Furosemide (Lasix) 40 mg DAILY IVP Last administered on 03/11/19at 09:37; Start 03/10/19 at 11:00; Stop 03/11/19 at 11:24; Status DC Insulin Human Lispro (HumaLOG) 0-9 UNITS TIDWMEALS SQ ; Start 03/10/19 at 12:00; Stop 03/10/19 at 17:57; Status DC Dextrose (Dextrose 50%-Water Syringe) 12.5 gm PRN Q15MIN PRN IV SEE COMMENTS; Start 03/10/19 at 11:15; Stop 03/12/19 at 16:47; Status DC Dextrose 250 ml PRN Q15MIN PRN IV SEE COMMENTS; Start 03/10/19 at 11:15; Stop 03/10/19 at 11:05; Status DC Iohexol (Omnipaque 350 Mg/ml) 100 ml 1X ONCE IV Last administered on 03/10/19at 14:05; Start 03/10/19 at 11:45; Stop 03/10/19 at 11:47; Status DC Info (CONTRAST GIVEN -- Rx MONITORING) 1 each PRN DAILY PRN MC SEE COMMENTS; Start 03/10/19 at 11:45; Stop 03/12/19 at 11:44; Status DC Piperacillin Sod/ Tazobactam Sod (Zosyn Per Pharmacy) 1 each PRN DAILY PRN MC SEE COMMENTS; Start 03/10/19 at 11:45; Stop 03/25/19 at 08:36; Status DC Vancomycin HCl (Vanco Per Pharmacy) 1 each PRN DAILY PRN MC SEE COMMENTS Last administered on 03/11/19at 09:42; Start 03/10/19 at 11:45; Stop 03/11/19 at 13:57; Status DC Vancomycin HCl 2 gm/Sodium Chloride 500 ml @ 250 mls/hr 1X ONCE IV Last administered on 03/10/19at 12:41; Start 03/10/19 at 13:00; Stop 03/10/19 at 14:59; Status DC Piperacillin Sod/ Tazobactam Sod 3.375 gm/Sodium Chloride 50 ml @ 100 mls/hr Q6HRS IV Last administered on 03/24/19at 05:45; Start 03/10/19 at 12:30; Stop 03/24/19 at 07:24; Status DC Vancomycin HCl 1.75 gm/Sodium Chloride 500 ml @ 250 mls/hr Q12H IV Last administered on 03/11/19at 12:43; Start 03/11/19 at 01:00; Stop 03/11/19 at 13:57; Status DC Vancomycin HCl (Vancomycin Trough Level) 1 each 1X ONCE MC ; Start 03/12/19 at 12:30; Stop 03/12/19 at 12:31; Status Cancel Insulin Human Lispro (HumaLOG) 0-9 UNITS Q6HRS SQ ; Start 03/11/19 at 00:00; Stop 03/27/19 at 09:06; Status DC Magnesium Sulfate/ Dextrose 100 ml @ 50 mls/hr DAILY IV Last administered on 03/11/19at 09:28; Start 03/11/19 at 09:00; Stop 03/14/19 at 08:59; Status DC Potassium Phosphate 27.2 mmol/Sodium Chloride 259.0667 ml @ 64.753 m... 1X ONCE IV Last administered on 03/11/19at 09:28; Start 03/11/19 at 10:00; Stop 03/11/19 at 14:00; Status DC Potassium Phosphate 27.2 mmol/Sodium Chloride 259.0667 ml @ 64.753 m... 1X ONCE IV ; Start 03/11/19 at 14:00; Stop 03/11/19 at 18:00; Status DC Lorazepam (Ativan Inj) 1 mg PRN Q1HR PRN IV ANXIETY Last administered on 03/14/19at 16:32; Start 03/11/19 at 11:00; Stop 03/19/19 at 10:31; Status DC Sodium Chloride 1,000 ml @ 1,000 mls/hr 1X ONCE IV Last administered on 03/11/19at 12:06; Start 03/11/19 at 11:30; Stop 03/11/19 at 12:29; Status DC Norepinephrine Bitartrate 250 ml @ 27.837 mls/ hr CONT PRN IV SEE I/O RECORD Last administered on 03/13/19at 04:13; Start 03/11/19 at 13:00; Stop 03/26/19 at 09:22; Status DC Hydralazine HCl (Apresoline Inj) 10 mg PRN Q4HRS PRN IVP ELEVATED BP, SEE COMMENTS Last administered on 03/31/19at 10:50; Start 03/11/19 at 13:00 Linezolid/Dextrose 300 ml @ 300 mls/hr Q12HR IV Last administered on 03/22/19at 21:38; Start 03/11/19 at 21:00; Stop 03/23/19 at 07:48; Status DC Potassium Chloride/Water 50 ml @ 50 mls/hr Q1H IV Last administered on 03/11/19at 17:28; Start 03/11/19 at 16:00; Stop 03/11/19 at 17:59; Status DC Heparin Sodium (Porcine) (Heparin Sodium) 5,000 unit Q8HRS SQ Last administered on 04/03/19at 05:42; Start 03/11/19 at 22:00 Multi-Ingred Cream/Lotion/Oil/ Oint (Artificial Tears Eye Ointment) 1 zuri PRN Q1HR PRN OU DRY EYE; Start 03/12/19 at 09:00 Potassium Chloride/Water 50 ml @ 50 mls/hr 1X ONCE IV Last administered on 03/12/19at 09:44; Start 03/12/19 at 10:00; Stop 03/12/19 at 10:59; Status DC Potassium Chloride/Water 50 ml @ 50 mls/hr 1X ONCE IV ; Start 03/12/19 at 10:30; Stop 03/12/19 at 11:31; Status DC Insulin Human Lispro (HumaLOG) 0-9 UNITS TIDWMEALS SQ ; Start 03/12/19 at 17:00; Stop 03/12/19 at 16:24; Status DC Dextrose (Dextrose 50%-Water Syringe) 12.5 gm PRN Q15MIN PRN IV SEE COMMENTS; Start 03/12/19 at 16:15 Dextrose 250 ml PRN Q15MIN PRN IV SEE COMMENTS; Start 03/12/19 at 16:15; Stop 03/27/19 at 08:59; Status DC Insulin Human Lispro (HumaLOG) 0-9 UNITS Q6HRS SQ Last administered on 03/26/19at 00:37; Start 03/12/19 at 18:00 Dexmedetomidine HCl 400 mcg/ Sodium Chloride 100 ml @ 0 mls/hr CONT PRN IV ANXIETY / AGITATION Last administered on 03/21/19at 04:33; Start 03/12/19 at 20:30; Stop 03/26/19 at 09:22; Status DC Sodium Chloride 500 ml @ 500 mls/hr 1X PRN PRN IV see comments Last administered on 03/12/19at 23:22; Start 03/12/19 at 20:30; Stop 03/30/19 at 14:05; Status DC Atropine Sulfate (ATROPINE 0.5mg SYRINGE) 0.5 mg PRN Q5MIN PRN IV SEE COMMENTS; Start 03/12/19 at 20:30; Stop 03/30/19 at 14:06; Status DC Vecuronium [place] (Norcuron Bolus) 10 mg PRN Q1HR PRN IV OVERBREATHING VENT Last administered on 03/25/19at 10:49; Start 03/13/19 at 07:30 Perflutren Protein Type A Microsphe (Optison) 0.66 mg STK-MED ONCE IV ; Start 03/13/19 at 09:08; Stop 03/13/19 at 09:08; Status DC Perflutren Protein Type A Microsphe (Optison) 0.66 mg 1X ONCE IV Last administered on 03/13/19at 09:40; Start 03/13/19 at 09:15; Stop 03/13/19 at 09:16; Status DC Furosemide (Lasix) 40 mg 1X ONCE IVP Last administered on 03/13/19at 13:32; St art 03/13/19 at 10:30; Stop 03/13/19 at 10:31; Status DC Daptomycin 1320 mg/Sodium Chloride 50 ml @ 100 mls/hr ONCE ONCE IV Last administered on 03/15/19at 13:53; Start 03/15/19 at 13:00; Stop 03/16/19 at 09:33; Status DC Daptomycin 1340 mg/Sodium Chloride 50 ml @ 100 mls/hr Q24H IV ; Start 03/16/19 at 08:45; Status UNV Daptomycin 1340 mg/Sodium Chloride 50 ml @ 100 mls/hr Q24H IV ; Start 03/16/19 at 09:00; Status Cancel Daptomycin 830 mg/ Sodium Chloride 50 ml @ 100 mls/hr Q24H IV Last administered on 03/18/19at 15:03; Start 03/16/19 at 14:00; Stop 03/19/19 at 07:41; Status DC Methylprednisolone Sodium Succinate (SOLU-Medrol 125MG VIAL) 100 mg Q8HRS IV Last administered on 03/23/19at 05:54; Start 03/16/19 at 12:00; Stop 03/23/19 at 12:03; Status DC Furosemide (Lasix) 40 mg 1X ONCE IVP Last administered on 03/16/19at 16:46; Start 03/16/19 at 16:30; Stop 03/16/19 at 16:31; Status DC Fentanyl Citrate (Fentanyl 600 Mcg/30 ml PRODUCT MARKETING CONSULTANT) 600 mcg STK-MED ONCE IV ; Start 03/13/19 at 17:00; Stop 03/17/19 at 11:02; Status DC Furosemide 100 mg/ Sodium Chloride 100 ml @ 5 mls/hr CONT PRN IV SEE I/O RECORD Last administered on 03/18/19at 00:20; Start 03/17/19 at 15:45; Stop 03/18/19 at 10:36; Status DC Furosemide 100 mg/ Sodium Chloride 100 ml @ 5 mls/hr CONT PRN IV SEE I/O RECORD Last administered on 03/21/19at 08:34; Start 03/18/19 at 10:45; Stop 03/21/19 at 12:57; Status DC Lorazepam (Ativan Inj) 2 mg PRN Q1HR PRN IV ANXIETY Last administered on 03/31/19at 13:09; Start 03/19/19 at 10:45 Lisinopril (Prinivil) 5 mg DAILY PO Last administered on 04/02/19at 07:55; Start 03/21/19 at 11:30 Amlodipine Besylate (Norvasc) 10 mg DAILY PO Last administered on 04/02/19at 07:55; Start 03/21/19 at 11:30 Furosemide 100 mg/ Sodium Chloride 100 ml @ 10 mls/hr CONT PRN IV SEE I/O RECORD Last administered on 03/22/19at 05:05; Start 03/21/19 at 16:00; Stop 03/22/19 at 12:39; Status DC Scopolamine (Transderm-Scop) 1 patch Q3DAYS TD Last administered on 04/03/19at 07:56; Start 03/22/19 at 11:00 Furosemide 100 mg/ Sodium Chloride 100 ml @ 5 mls/hr CONT PRN IV SEE I/O RECORD Last administered on 03/22/19at 21:38; Start 03/22/19 at 12:45; Stop 03/23/19 at 17:48; Status DC Methylprednisolone Sodium Succinate (SOLU-Medrol 125MG VIAL) 50 mg Q8HRS IV Last administered on 03/27/19at 05:30; Start 03/23/19 at 14:00; Stop 03/27/19 at 11:20; Status DC Insulin Human Lispro (HumaLOG) 0-5 UNITS TIDWMEALS SQ ; Start 03/27/19 at 09:30; Status Cancel Dextrose (Dextrose 50%-Water Syringe) 12.5 gm PRN Q15MIN PRN IV SEE COMMENTS; Start 03/27/19 at 09:00; Status Cancel Dextrose 250 ml PRN Q15MIN PRN IV SEE COMMENTS; Start 03/27/19 at 09:00; Status Cancel Methylprednisolone Sodium Succinate (SOLU-Medrol 40MG VIAL) 30 mg Q8HRS IV Last administered on 04/02/19at 06:28; Start 03/27/19 at 14:00; Stop 04/02/19 at 11:19 ; Status DC Furosemide (Lasix) 40 mg 1X ONCE IVP Last administered on 03/27/19at 11:58; Start 03/27/19 at 12:00; Stop 03/27/19 at 12:01; Status DC Furosemide (Lasix) 40 mg 1X ONCE IVP Last administered on 03/28/19at 10:15; Start 03/28/19 at 09:30; Stop 03/28/19 at 09:46; Status DC Furosemide (Lasix) 40 mg 1X ONCE IVP Last administered on 03/29/19at 09:44; Start 03/29/19 at 09:30; Stop 03/29/19 at 09:31; Status DC Sodium Chloride 1,000 ml @ 1,000 mls/hr 1X ONCE IV Last administered on 03/29/19at 20:41; Start 03/29/19 at 20:30; Stop 03/29/19 at 21:29; Status DC Norepinephrine Bitartrate 250 ml @ 38.554 mls/ hr CONT PRN IV SEE I/O RECORD; Start 03/29/19 at 20:30 Furosemide (Lasix) 40 mg 1X ONCE IVP Last administered on 03/30/19at 10:42; Start 03/30/19 at 10:15; Stop 03/30/19 at 10:16; Status DC Sodium Bicarbonate (Sodium Bicarb Adult 8.4% Syr) 50 meq STK-MED ONCE .ROUTE ; Start 03/31/19 at 17:28; Stop 03/31/19 at 17:29; Status DC Lactic Acid (Lac-Hydrin) 1 zuri BID TP Last administered on 04/03/19at 07:56; Start 04/01/19 at 21:00 Methylprednisolone Sodium Succinate (SOLU-Medrol 40MG VIAL) 30 mg DAILY IV Last administered on 04/03/19at 07:56; Start 04/03/19 at 09:00 Furosemide (Lasix) 40 mg 1X ONCE IVP Last administered on 04/02/19at 12:09; Start 04/02/19 at 11:30; Stop 04/02/19 at 11:35; Status DC Furosemide (Lasix) 40 mg 1X ONCE IVP ; Start 04/02/19 at 12:00; Stop 04/02/19 at 12:01; Status DC Dexmedetomidine HCl 400 mcg/ Sodium Chloride 100 ml @ 0 mls/hr CONT PRN IV ANXIETY / AGITATION Last administered on 04/03/19at 04:37; Start 04/02/19 at 16:00 Sodium Chloride 1,000 ml @ 1,000 mls/hr 1X ONCE IV Last administered on 04/02/19at 22:00; Start 04/02/19 at 22:00; Stop 04/02/19 at 22:59; Status DC Active Scripts Active Norvasc (Amlodipine Besylate) 5 Mg Tablet 1 Tab PO DAILY Lisinopril 5 Mg Tablet 1 Tab PO DAILY Reported Hydrochlorothiazide Tablet (Hydrochlorothiazide) 25 Mg Tablet 25 Mg PO DAILY Vitals/I & O Vital Sign - Last 24 Hours 04/02/19 04/02/19 04/02/19 04/02/19 11:00 11:32 12:00 12:00 Temp 99.1 99.1 Pulse 92 100 Resp 39 22 B/P (MAP) 161/86 (111) 180/101 (127) Pulse Ox 99 95 100 O2 Delivery Ventilator Ventilator Mechanical Ventilator Ventilator 04/02/19 04/02/19 04/02/19 04/02/19 13:00 13:31 13:40 14:00 Pulse 90 104 Resp 20 32 B/P (MAP) 150/80 (103) 135/71 (92) Pulse Ox 99 100 96 99 O2 Delivery Ventilator Ventilator Ventilator Ventilator 04/02/19 04/02/19 04/02/19 04/02/19 15:00 15:02 16:00 16:00 Temp 98.5 98.5 Pulse 92 104 Resp 33 30 B/P (MAP) 88/51 (63) 121/71 (88) Pulse Ox 98 99 99 O2 Delivery Ventilator Ventilator Mechanical Ventilator Ventilator 04/02/19 04/02/19 04/02/19 04/02/19 16:17 17:00 17:30 18:00 Pulse 84 92 Resp 17 17 B/P (MAP) 85/49 (61) 98/49 (65) Pulse Ox 99 99 100 100 O2 Delivery Ventilator Ventilator Ventilator Ventilator 04/02/19 04/02/19 04/02/19 9/26/19 19:00 20:00 20:00 20:27 Temp 98.5 98.5 Pulse 81 87 Resp 16 16 B/P (MAP) 100/55 (70) 87/53 (64) Pulse Ox 100 98 100 O2 Delivery Ventilator Ventilator Mechanical Ventilator Ventilator 04/02/19 04/02/19 04/02/19 04/02/19 21:00 21:30 22:00 22:23 Pulse 104 98 Resp 20 20 12 B/P (MAP) 65/41 (49) 90/54 (66) 96/56 (69) Pulse Ox 96 97 O2 Delivery Ventilator Ventilator 04/02/19 04/02/19 04/02/19 04/02/19 23:00 23:13 23:59 23:59 Pulse 99 90 Resp 18 18 18 B/P (MAP) 88/42 (57) 97/54 (68) Pulse Ox 98 98 98 O2 Delivery Ventilator Ventilator Mechanical Ventilator O2 Flow Rate 93.0 04/03/19 04/03/19 04/03/19 04/03/19 00:20 01:00 02:00 02:34 Temp 98.3 98.3 Pulse 89 88 Resp 20 18 16 B/P (MAP) 106/61 (76) 101/54 (70) Pulse Ox 100 99 98 98 O2 Delivery Ventilator Ventilator Ventilator O2 Flow Rate 93.0 04/03/19 04/03/19 04/03/19 04/03/19 03:00 03:40 04:00 04:00 Temp 98.1 98.1 Pulse 92 71 Resp 16 15 B/P (MAP) 106/56 (73) 90/40 (57) Pulse Ox 99 100 99 O2 Delivery Ventilator Ventilator Ventilator Mechanical Ventilator 04/03/19 04/03/19 04/03/19 04/03/19 04:36 05:01 05:39 06:00 Pulse 78 71 Resp 12 16 16 B/P (MAP) 108/53 (71) 96/52 (67) Pulse Ox 99 99 100 99 O2 Delivery Ventilator Ventilator Ventilator O2 Flow Rate 93.0 04/03/19 04/03/19 04/03/19 04/03/19 07:00 07:39 08:00 08:00 Temp 99.4 99.4 99.4 99.4 Pulse 82 82 92 Resp 20 20 27 B/P (MAP) 116/71 (86) 116/71 (86) 114/66 (82) Pulse Ox 100 100 100 O2 Delivery Ventilator Ventilator Mechanical Ventilator Ventilator 04/03/19 04/03/19 04/03/19 08:53 09:00 09:05 Pulse 96 Resp 22 B/P (MAP) 103/63 (76) Pulse Ox 99 99 100 O2 Delivery Ventilator Ventilator Intake and Output 04/02/19 04/02/19 04/03/19 15:00 23:00 07:00 Intake Total 400 ml 400 ml 605 ml Output Total 2035 ml 1075 ml 950 ml Balance -1635 ml -675 ml -345 ml LICO HOLGUIN MD Apr 03, 2019 10:52
[2019-04-03 11:43] LABS: % BANDS 4 % (0-9); % LYMPHS 8 % (24-48); % SEGS 88 % (35-66); ANISOCYTOSIS PRESENT; PLT ESTIMATE ADEQUATE (ADEQUATE)
--- NOTE | 2019-04-03 11:55 | PDOC ---
[facility] PROGRESS NOTE Chief Complaint Chief Complaint Acute Hypercapnic Respiratory Failure/ARDS due to vaping Pulmonary Edema Bilateral Lung Infiltrates Obstructive sleep apnea OSMAN Increased Troponin Morbid Obesity Pulmonary HTN Tobacco use History of Present Illness History of Present Illness 04/03/19 Pt was seen and examined in the ICu Vent on Spontaneous respirations (40% FiO2, 5 PEEP) JUANA RN Charts and labs reviewed Responded to voice commands with hand movements 04/02/19 Pt was seen and examined in the ICU Still on ventilation and sedated (Vent settings: AC/16/750/40% 5 PEEP) Attempt made to take patient off ventilation on 04/01, was unsuccessful Charts and labs reviewed JUANA RN CXR shows right basilar atelectasis, pulmonary interstitial edema 04/01/19 Pt was seen and examined in the ICU Pt is sedated and on ventilation (Vent settings: AC 16/750/40% 5 PEEP) Pulm attempted to take Pt off ventilation on 03/31, however Pt was unable to remain off vent after 20 min Chart and labs reviewed O2 saturation was 97% D/w RN and respiratory therapist 03/31/19 Pt was seen and examined in ICU Pt is sedated and on ventilation (Vent settings: AC/16/750/40% 5 PEEP) Chart and labs reviewed Responded to request to blink O2 saturation was 97% 03/26/19 Pt seen and examined in ICU Pt is sedated and on ventilation (Vent settings: AC/16/600/60% 10 PEEP) Pt heart rate was in 50s Chart and labs reviewed JUANA RN 03/25/19 Pt seen and examined in the ICU Pt is sedated and on ventilation (Vent settings: AC/16/600/65% 11 PEEP) Chart and labs reviewed JUANA RN 03/24/19 Pt seen and examined in the ICU Pt is on ventilation (Vent settings: AC/16/600/70% 13 PEEP) Chart and labs reviewed JUANA RN 03/23/19 Pt seen/examined in the ICU Pt is still on ventilation (Vent settings: AC/16/600/80% 13 PEEP) JUANA RN Chart and labs reviewed 03/22/19 Pt seen/examined in the ICU Pt is still on ventilation (Vent settings: AC/16/600/80% 13 PEEP) JUANA RN Chart and labs reviewed Chart Reviewed 03/21/19 Pt seen and examined in the ICU Pt still on ventilation (vent settings: AC/16/600/75% 13 PEEP) JUANA Pulm [employer] MACHINIST regarding starting patient on home medications for HTN 9�13�2019 Patient seen and examined in the ICU He is still ventilated AC/16/600/80% 14 PEEP 03/19/19 Pt seen and examined in ICU on vent (vent settings: AC/16/600/85% 14 PEEP) Pt responsive to voice In mitts for pt safety Pt sedated with versed, fentanyl, and precedex Rectal tube intact [place] to BSD Has OG tube to LIS; ET tube placed JUANA RN 03/18/19 Pt seen and examined in ICU on vent (vent settings: AC/16/00/100% 14 PEEP) Pt sedated with versed, fentanyl, and precedex Rectal tube placed Font[place] to BSD Has OG tube to LIS; ET tube placed JUANA RN Chart reviewed 03/17/19 Pt seen and examined in ICU on vent (AC/16/600/100 14peep) Pt has rectal tube and fontana to BSD Sedated with versed, fentanyl, and precedex Pt has ET tube and OG tube to LIS DW RN DW embedded case manager Chart reviewed Vitals/I&O Vitals/I&O: Vital Signs Date Time Temp Pulse Resp B/P (MAP) Pulse Ox O2 Delivery O2 Flow Rate FiO2 04/03/19 11:48 99 Ventilator 04/03/19 11:00 92 22 84/62 (69) 04/03/19 07:39 99.4 99.4 04/03/19 04:36 93.0 I & O 04/02/19 04/02/19 04/03/19 14:59 22:59 06:59 Intake Total 400 ml 400 ml 605 ml Output Total 1945 ml 1050 ml 975 ml Balance -1545 ml -650 ml -370 ml Physical Exam Physical Exam: GENERAL: Orally intubated/ sedated - lightly, HEENT: opened eyes Pupils equal, nml conj OGT/ETT NECK: Supple LUNGS: dec bs at bases HEART: S1 and S2, regular. ABDOMEN: Obese, soft, +BS : Font[place] in place fecal tube in place EXTREMITIES: Trace edema - MITTS SKIN: Chronic stasis dermatitis on the lower extremity. NEUROLOGIC: Sedated IVS; Old RIJ site clean. RUE - PICC clean General: No acute distress, Other (short neck , Mallampati 4 ON VENT) Heart: Regular rate (SR), Other (distante heart sounds) Lungs: Other (decrease bs) Abdomen: Normal bowel sounds, Soft, No tenderness, No hepatosplenomegaly, No masses Extremities: No clubbing, No cyanosis, No edema, Normal pulses, No tenderness/swelling Skin: No rashes, No breakdown, No significant lesion Labs Labs: Laboratory Tests Test 04/02/19 18:18 04/03/19 05:46 04/03/19 09:05 04/03/19 10:23 Glucose (Fingerstick) 98 mg/dL (70-99) 123 mg/dL (70-99) O2 Saturation 95 % (92-99) Arterial Blood pH 7.41 (7.35-7.45) Arterial Blood pCO2 at Patient Temp 40 mmHg (35-46) Arterial Blood pO2 at Patient Temp 86 mmHg (75-108) Arterial Blood HCO3 24 mmol/L (21-28) Arterial Blood Base Excess 0 mmol/L (-3-3) FiO2 40 White Blood Count 16.9 x10^3/uL (4.0-11.0) Red Blood Count 3.18 x10^6/uL (4.30-5.70) Hemoglobin 7.6 g/dL (13.0-17.5) Hematocrit 24.6 % (39.0-53.0) Mean Corpuscular Volume 77 fL (79-100) Mean Corpuscular Hemoglobin 24 pg (25-35) Mean Corpuscular Hemoglobin Concent 31 g/dL (31-37) Red Cell Distribution Width 19.1 % (11.5-14.5) Platelet Count 207 x10^3/uL (140-400) Neutrophils (%) (Auto) 88 % (31-73) Lymphocytes (%) (Auto) 5 % (24-48) Monocytes (%) (Auto) 7 % (0-9) Eosinophils (%) (Auto) 0 % (0-3) Basophils (%) (Auto) 0 % (0-3) Neutrophils # (Auto) 14.9 x10^3/uL (1.8-7.7) Lymphocytes # (Auto) 0.8 x10^3/uL (1.0-4.8) Monocytes # (Auto) 1.2 x10^3/uL (0.0-1.1) Eosinophils # (Auto) 0.0 x10^3/uL (0.0-0.7) Basophils # (Auto) 0.0 x10^3/uL (0.0-0.2) Segmented Neutrophils % 88 % (35-66) Band Neutrophils % 4 % (0-9) Lymphocytes % 8 % (24-48) Platelet Estimate Adequate (ADEQUATE) Anisocytosis Present Review of Systems Review of Systems: No nausea, no vomiting No chest pain, no palpitations Assessment and Plan Assessmemt and Plan Problems Medical Problems: (1) CHF exacerbation Status: Acute (2) COPD exacerbation Status: Acute (3) Hypoxia Status: Acute (4) NSTEMI (non-ST elevated myocardial infarction) Status: Acute (5) Respiratory failure Status: Acute Assessment Acute Hypercapnic Respiratory Failure/ARDS due to vaping Pulmonary Edema Bilateral Lung Infiltrates Obstructive sleep apnea OSMAN Increased Troponin Morbid Obesity Pulmonary HTN Tobacco use ARDS Plan ICU monitoring Continue vent weaning PT/OT Labs OG Feeds DNR Total time 31 min Comment Review of Relevant I have reviewed the following items peter (where applicable) has been applied. Medications: Current Medications Medications (Trade) Dose Ordered Sig/Stefanie Route PRN Reason Start Time Stop Time Status Last Admin Dose Admin Methylprednisolone Sodium Succinate (SOLU-Medrol 40MG VIAL) 30 mg DAILY IV 04/03/19 09:00 04/03/19 07:56 Dexmedetomidine HCl 400 mcg/ Sodium Chloride 100 ml @ 0 mls/hr CONT PRN IV ANXIETY / AGITATION 04/02/19 16:00 04/03/19 11:03 Sodium Chloride 1,000 ml @ 1,000 mls/hr 1X ONCE IV 04/02/19 22:00 04/02/19 22:59 DC 04/02/19 22:00 TRICIA NAVA III DO Apr 03, 2019 11:55
[2019-04-03 12:13] LABS: BASE EXCESS ABG -1 mmol/L (-3-3); HCO3 ABG 24 mmol/L (21-28); PCO2 ABG 36 mmHg (35-46); PO2 ABG 93 mmHg (75-108); SAT O2 ABG 97 % (92-99)
[2019-04-03 12:42] LABS: FIO2 ABG 40
[2019-04-03] MEDS ORDERED: ONDANSETRON PF 4 MG/2 ML VIAL. IM ONE (12:45)
--- NOTE | 2019-04-03 13:03 | PDOC ---
PULMONARY PROGRESS NOTES Subjective Patient with respiratory failure secondary to ARDS from vaping. DONE WELL WITH cpap TRIAL Vitals Vital Signs Date Time Temp Pulse Resp B/P (MAP) Pulse Ox O2 Delivery O2 Flow Rate FiO2 04/03/19 12:00 Mechanical Ventilator 04/03/19 11:48 99 04/03/19 11:00 92 22 84/62 (69) 04/03/19 07:39 99.4 99.4 04/03/19 04:36 93.0 General: Alert, No acute distress Lungs: Other (decrease bs) Cardiovascular: S1, S2 Abdomen: Soft, Non-tender, Other (obese) Extremities: Other (lymphedema BLE ) Skin: Warm, Dry Labs Laboratory Tests Test 04/01/19 18:43 04/02/19 00:09 04/02/19 05:05 04/02/19 05:19 Glucose (Fingerstick) 107 mg/dL (70-99) 106 mg/dL (70-99) 107 mg/dL (70-99) Sodium Level 136 mmol/L (136-145) Potassium Level 4.3 mmol/L (3.5-5.1) Chloride Level 101 mmol/L (98-107) Carbon Dioxide Level 26 mmol/L (21-32) Anion Gap 9 (6-14) Blood Urea Nitrogen 42 mg/dL (8-26) Creatinine 0.7 mg/dL (0.7-1.3) Estimated GFR (Cockcroft-Gault) 145.6 Glucose Level 110 mg/dL (70-99) Calcium Level 9.2 mg/dL (8.5-10.1) Test 04/02/19 07:45 04/02/19 11:16 04/02/19 18:18 04/03/19 05:46 O2 Saturation 96 % (92-99) Arterial Blood pH 7.42 (7.35-7.45) Arterial Blood pCO2 at Patient Temp 35 mmHg (35-46) Arterial Blood pO2 at Patient Temp 88 mmHg (75-108) Arterial Blood HCO3 22 mmol/L (21-28) Arterial Blood Base Excess -2 mmol/L (-3-3) FiO2 40 Glucose (Fingerstick) 119 mg/dL (70-99) 98 mg/dL (70-99) 123 mg/dL (70-99) Test 04/03/19 09:05 04/03/19 10:23 04/03/19 12:00 O2 Saturation 95 % (92-99) 97 % (92-99) Arterial Blood pH 7.41 (7.35-7.45) 7.43 (7.35-7.45) Arterial Blood pCO2 at Patient Temp 40 mmHg (35-46) 36 mmHg (35-46) Arterial Blood pO2 at Patient Temp 86 mmHg (75-108) 93 mmHg (75-108) Arterial Blood HCO3 24 mmol/L (21-28) 24 mmol/L (21-28) Arterial Blood Base Excess 0 mmol/L (-3-3) -1 mmol/L (-3-3) FiO2 40 40 White Blood Count 16.9 x10^3/uL (4.0-11.0) Red Blood Count 3.18 x10^6/uL (4.30-5.70) Hemoglobin 7.6 g/dL (13.0-17.5) Hematocrit 24.6 % (39.0-53.0) Mean Corpuscular Volume 77 fL (79-100) Mean Corpuscular Hemoglobin 24 pg (25-35) Mean Corpuscular Hemoglobin Concent 31 g/dL (31-37) Red Cell Distribution Width 19.1 % (11.5-14.5) Platelet Count 207 x10^3/uL (140-400) Neutrophils (%) (Auto) 88 % (31-73) Lymphocytes (%) (Auto) 5 % (24-48) Monocytes (%) (Auto) 7 % (0-9) Eosinophils (%) (Auto) 0 % (0-3) Basophils (%) (Auto) 0 % (0-3) Neutrophils # (Auto) 14.9 x10^3/uL (1.8-7.7) Lymphocytes # (Auto) 0.8 x10^3/uL (1.0-4.8) Monocytes # (Auto) 1.2 x10^3/uL (0.0-1.1) Eosinophils # (Auto) 0.0 x10^3/uL (0.0-0.7) Basophils # (Auto) 0.0 x10^3/uL (0.0-0.2) Segmented Neutrophils % 88 % (35-66) Band Neutrophils % 4 % (0-9) Lymphocytes % 8 % (24-48) Platelet Estimate Adequate (ADEQUATE) Anisocytosis Present Laboratory Tests Test 04/02/19 18:18 04/03/19 05:46 04/03/19 09:05 04/03/19 10:23 Glucose (Fingerstick) 98 mg/dL (70-99) 123 mg/dL (70-99) O2 Saturation 95 % (92-99) Arterial Blood pH 7.41 (7.35-7.45) Arterial Blood pCO2 at Patient Temp 40 mmHg (35-46) Arterial Blood pO2 at Patient Temp 86 mmHg (75-108) Arterial Blood HCO3 24 mmol/L (21-28) Arterial Blood Base Excess 0 mmol/L (-3-3) FiO2 40 White Blood Count 16.9 x10^3/uL (4.0-11.0) Red Blood Count 3.18 x10^6/uL (4.30-5.70) Hemoglobin 7.6 g/dL (13.0-17.5) Hematocrit 24.6 % (39.0-53.0) Mean Corpuscular Volume 77 fL (79-100) Mean Corpuscular Hemoglobin 24 pg (25-35) Mean Corpuscular Hemoglobin Concent 31 g/dL (31-37) Red Cell Distribution Width 19.1 % (11.5-14.5) Platelet Count 207 x10^3/uL (140-400) Neutrophils (%) (Auto) 88 % (31-73) Lymphocytes (%) (Auto) 5 % (24-48) Monocytes (%) (Auto) 7 % (0-9) Eosinophils (%) (Auto) 0 % (0-3) Basophils (%) (Auto) 0 % (0-3) Neutrophils # (Auto) 14.9 x10^3/uL (1.8-7.7) Lymphocytes # (Auto) 0.8 x10^3/uL (1.0-4.8) Monocytes # (Auto) 1.2 x10^3/uL (0.0-1.1) Eosinophils # (Auto) 0.0 x10^3/uL (0.0-0.7) Basophils # (Auto) 0.0 x10^3/uL (0.0-0.2) Segmented Neutrophils % 88 % (35-66) Band Neutrophils % 4 % (0-9) Lymphocytes % 8 % (24-48) Platelet Estimate Adequate (ADEQUATE) Anisocytosis Present Test 04/03/19 12:00 O2 Saturation 97 % (92-99) Arterial Blood pH 7.43 (7.35-7.45) Arterial Blood pCO2 at Patient Temp 36 mmHg (35-46) Arterial Blood pO2 at Patient Temp 93 mmHg (75-108) Arterial Blood HCO3 24 mmol/L (21-28) Arterial Blood Base Excess -1 mmol/L (-3-3) FiO2 40 Medications Active Scripts Medications Dose Route/Sig Max Daily Dose Days Date Category Hydrochlorothiazide Tablet (Hydrochlorothiazide) 25 Mg Tablet 25 Mg PO DAILY 03/10/19 Reported Norvasc (Amlodipine Besylate) 5 Mg Tablet 1 Tab PO DAILY 01/12/19 Rx Lisinopril 5 Mg Tablet 1 Tab PO DAILY 01/12/19 Rx Comments CXR 04/02 basal atelectasis , overall improved Impression . 1. Acute hypercarbic/hypoxic respiratory Failure due to ARDS , vaping related, on 40%, and PEEP of 5 2. Suspected VAP , Rx , currently off ABX 3.Hypertension (controlled) 4. Pre-renal Azotemia, improved 5. Pulm. HTN PA pressure 55 Normal EF 6. HX. of tobacco use 7. Morbid obesity Plan . 1. Doing well on CPAP trial today. ABG excellent. proceed with extubation 2. steroids ,initiated 03/16 , taper 3. off abx at this time 4. no further fever 5. Continue bronchodilators. 6. Heparin for DVT prophylaxis 7 azotemia .renal following discussed with RN and RT. / BIPAP qhs post extubation and prn MARIO ALLEN MD Apr 03, 2019 13:03
[2019-04-03] MEDS ORDERED: ONDANSETRON PF 4 MG/2 ML VIAL. IVP PRN (18:30)
[2019-04-04] VITALS (24 sets, daily range): BP systolic 91–154; BP diastolic 58–86
[2019-04-04 05:07] LABS: BASO % 0 % (0-3); EOS # 0.1 x10^3/uL (0.0-0.7); EOS % 0 % (0-3); HEMATOCRIT 24.2 % (39.0-53.0); HEMOGLOBIN 7.6 g/dL (13.0-17.5); LYMPH # 1.7 x10^3/uL (1.0-4.8); LYMPH % 10 % (24-48); MEAN CORPUSCULAR HEMOGLOBIN 24 pg (25-35); MEAN CORPUSCULAR HGB CONC 32 g/dL (31-37); MEAN CORPUSCULAR VOLUME 78 fL (79-100); MONO # 1.5 x10^3/uL (0.0-1.1); MONO % 9 % (0-9); NEUT # 13.8 x10^3/uL (1.8-7.7); NEUT % 81 % (31-73); PLATELET COUNT 202 x10^3/uL (140-400); RED BLOOD COUNT 3.13 x10^6/uL (4.30-5.70); RED CELL DISTRIBUTION WIDTH 19.3 % (11.5-14.5); WHITE BLOOD COUNT 17.1 x10^3/uL (4.0-11.0)
[2019-04-04] MEDS: HEPARIN for SUB-Q USE 5,000 UNIT/ML VIAL. SQ SCH ×3 (05:58→22:07)
[2019-04-04] MEDS: INSULIN LISPRO 300 UNITS/3 ML VIAL. SQ SCH ×4 (05:58→18:00)
[2019-04-04 06:02] LABS: CALCIUM 8.4 mg/dL (8.5-10.1); CREATININE 0.5 mg/dL (0.7-1.3); GFR 214.7; POTASSIUM 3.8 mmol/L (3.5-5.1)
--- NOTE | 2019-04-04 06:05 | PDOC ---
PULMONARY PROGRESS NOTES Subjective on bipap, sleepy, no pain, Vitals Vital Signs Date Time Temp Pulse Resp B/P (MAP) Pulse Ox O2 Delivery O2 Flow Rate FiO2 04/04/19 06:00 98 18 140/76 (97) 100 BiPAP/CPAP 04/04/19 04:00 98.6 98.6 04/03/19 22:00 4.0 General: No acute distress HEENT: Other (nc at perrl ) Lungs: Other (decrease bs) Cardiovascular: S1, S2 Abdomen: Soft, Non-tender, Other (obese) Extremities: Other (lymphedema BLE ) Skin: Warm, Dry Labs Laboratory Tests Test 04/02/19 07:45 04/02/19 11:16 04/02/19 18:18 04/03/19 05:46 O2 Saturation 96 % (92-99) Arterial Blood pH 7.42 (7.35-7.45) Arterial Blood pCO2 at Patient Temp 35 mmHg (35-46) Arterial Blood pO2 at Patient Temp 88 mmHg (75-108) Arterial Blood HCO3 22 mmol/L (21-28) Arterial Blood Base Excess -2 mmol/L (-3-3) FiO2 40 Glucose (Fingerstick) 119 mg/dL (70-99) 98 mg/dL (70-99) 123 mg/dL (70-99) Test 04/03/19 09:05 04/03/19 10:23 04/03/19 12:00 04/03/19 12:41 O2 Saturation 95 % (92-99) 97 % (92-99) Arterial Blood pH 7.41 (7.35-7.45) 7.43 (7.35-7.45) Arterial Blood pCO2 at Patient Temp 40 mmHg (35-46) 36 mmHg (35-46) Arterial Blood pO2 at Patient Temp 86 mmHg (75-108) 93 mmHg (75-108) Arterial Blood HCO3 24 mmol/L (21-28) 24 mmol/L (21-28) Arterial Blood Base Excess 0 mmol/L (-3-3) -1 mmol/L (-3-3) FiO2 40 40 White Blood Count 16.9 x10^3/uL (4.0-11.0) Red Blood Count 3.18 x10^6/uL (4.30-5.70) Hemoglobin 7.6 g/dL (13.0-17.5) Hematocrit 24.6 % (39.0-53.0) Mean Corpuscular Volume 77 fL (79-100) Mean Corpuscular Hemoglobin 24 pg (25-35) Mean Corpuscular Hemoglobin Concent 31 g/dL (31-37) Red Cell Distribution Width 19.1 % (11.5-14.5) Platelet Count 207 x10^3/uL (140-400) Neutrophils (%) (Auto) 88 % (31-73) Lymphocytes (%) (Auto) 5 % (24-48) Monocytes (%) (Auto) 7 % (0-9) Eosinophils (%) (Auto) 0 % (0-3) Basophils (%) (Auto) 0 % (0-3) Neutrophils # (Auto) 14.9 x10^3/uL (1.8-7.7) Lymphocytes # (Auto) 0.8 x10^3/uL (1.0-4.8) Monocytes # (Auto) 1.2 x10^3/uL (0.0-1.1) Eosinophils # (Auto) 0.0 x10^3/uL (0.0-0.7) Basophils # (Auto) 0.0 x10^3/uL (0.0-0.2) Segmented Neutrophils % 88 % (35-66) Band Neutrophils % 4 % (0-9) Lymphocytes % 8 % (24-48) Platelet Estimate Adequate (ADEQUATE) Anisocytosis Present Glucose (Fingerstick) 109 mg/dL (70-99) Test 04/04/19 05:00 04/04/19 05:54 White Blood Count 17.1 x10^3/uL (4.0-11.0) Red Blood Count 3.13 x10^6/uL (4.30-5.70) Hemoglobin 7.6 g/dL (13.0-17.5) Hematocrit 24.2 % (39.0-53.0) Mean Corpuscular Volume 78 fL (79-100) Mean Corpuscular Hemoglobin 24 pg (25-35) Mean Corpuscular Hemoglobin Concent 32 g/dL (31-37) Red Cell Distribution Width 19.3 % (11.5-14.5) Platelet Count 202 x10^3/uL (140-400) Neutrophils (%) (Auto) 81 % (31-73) Lymphocytes (%) (Auto) 10 % (24-48) Monocytes (%) (Auto) 9 % (0-9) Eosinophils (%) (Auto) 0 % (0-3) Basophils (%) (Auto) 0 % (0-3) Neutrophils # (Auto) 13.8 x10^3/uL (1.8-7.7) Lymphocytes # (Auto) 1.7 x10^3/uL (1.0-4.8) Monocytes # (Auto) 1.5 x10^3/uL (0.0-1.1) Eosinophils # (Auto) 0.1 x10^3/uL (0.0-0.7) Basophils # (Auto) 0.0 x10^3/uL (0.0-0.2) Glucose (Fingerstick) 73 mg/dL (70-99) Laboratory Tests Test 04/03/19 09:05 04/03/19 10:23 04/03/19 12:00 04/03/19 12:41 O2 Saturation 95 % (92-99) 97 % (92-99) Arterial Blood pH 7.41 (7.35-7.45) 7.43 (7.35-7.45) Arterial Blood pCO2 at Patient Temp 40 mmHg (35-46) 36 mmHg (35-46) Arterial Blood pO2 at Patient Temp 86 mmHg (75-108) 93 mmHg (75-108) Arterial Blood HCO3 24 mmol/L (21-28) 24 mmol/L (21-28) Arterial Blood Base Excess 0 mmol/L (-3-3) -1 mmol/L (-3-3) FiO2 40 40 White Blood Count 16.9 x10^3/uL (4.0-11.0) Red Blood Count 3.18 x10^6/uL (4.30-5.70) Hemoglobin 7.6 g/dL (13.0-17.5) Hematocrit 24.6 % (39.0-53.0) Mean Corpuscular Volume 77 fL (79-100) Mean Corpuscular Hemoglobin 24 pg (25-35) Mean Corpuscular Hemoglobin Concent 31 g/dL (31-37) Red Cell Distribution Width 19.1 % (11.5-14.5) Platelet Count 207 x10^3/uL (140-400) Neutrophils (%) (Auto) 88 % (31-73) Lymphocytes (%) (Auto) 5 % (24-48) Monocytes (%) (Auto) 7 % (0-9) Eosinophils (%) (Auto) 0 % (0-3) Basophils (%) (Auto) 0 % (0-3) Neutrophils # (Auto) 14.9 x10^3/uL (1.8-7.7) Lymphocytes # (Auto) 0.8 x10^3/uL (1.0-4.8) Monocytes # (Auto) 1.2 x10^3/uL (0.0-1.1) Eosinophils # (Auto) 0.0 x10^3/uL (0.0-0.7) Basophils # (Auto) 0.0 x10^3/uL (0.0-0.2) Segmented Neutrophils % 88 % (35-66) Band Neutrophils % 4 % (0-9) Lymphocytes % 8 % (24-48) Platelet Estimate Adequate (ADEQUATE) Anisocytosis Present Glucose (Fingerstick) 109 mg/dL (70-99) Test 04/04/19 05:00 04/04/19 05:54 White Blood Count 17.1 x10^3/uL (4.0-11.0) Red Blood Count 3.13 x10^6/uL (4.30-5.70) Hemoglobin 7.6 g/dL (13.0-17.5) Hematocrit 24.2 % (39.0-53.0) Mean Corpuscular Volume 78 fL (79-100) Mean Corpuscular Hemoglobin 24 pg (25-35) Mean Corpuscular Hemoglobin Concent 32 g/dL (31-37) Red Cell Distribution Width 19.3 % (11.5-14.5) Platelet Count 202 x10^3/uL (140-400) Neutrophils (%) (Auto) 81 % (31-73) Lymphocytes (%) (Auto) 10 % (24-48) Monocytes (%) (Auto) 9 % (0-9) Eosinophils (%) (Auto) 0 % (0-3) Basophils (%) (Auto) 0 % (0-3) Neutrophils # (Auto) 13.8 x10^3/uL (1.8-7.7) Lymphocytes # (Auto) 1.7 x10^3/uL (1.0-4.8) Monocytes # (Auto) 1.5 x10^3/uL (0.0-1.1) Eosinophils # (Auto) 0.1 x10^3/uL (0.0-0.7) Basophils # (Auto) 0.0 x10^3/uL (0.0-0.2) Glucose (Fingerstick) 73 mg/dL (70-99) Medications Active Scripts Medications Dose Route/Sig Max Daily Dose Days Date Category Hydrochlorothiazide Tablet (Hydrochlorothiazide) 25 Mg Tablet 25 Mg PO DAILY 03/10/19 Reported Norvasc (Amlodipine Besylate) 5 Mg Tablet 1 Tab PO DAILY 01/12/19 Rx Lisinopril 5 Mg Tablet 1 Tab PO DAILY 01/12/19 Rx Comments CXR basal atelectasis , overall improved Impression . 1. Acute hypercarbic/hypoxic respiratory Failure due to ARDS , vaping related, extubated 04/03 2. Suspected VAP , Rx , currently off ABX 3.Hypertension (controlled) 4. Pre-renal Azotemia, improved 5. Pulm. HTN PA pressure 55 Normal EF 6. HX. of tobacco use 7. Morbid obesity Plan . 1. bipap prn during day, cont at night 2. steroids ,initiated 03/16 , taper 3. off abx at this time 4. no further fever 5. Continue bronchodilators. 6. Heparin for DVT prophylaxis 7 azotemia .renal following discussed with RN and RT. SAFIA WISEMAN MD Apr 04, 2019 06:05
--- NOTE | 2019-04-04 07:47 | RAD ---
EXAM: Chest, single view. HISTORY: Ventilatory support. COMPARISON: 04/03/2019 FINDINGS: A frontal view of the chest is obtained. There has been removal of an endotracheal tube and nasogastric tube. There is a right PICC with the tip in the superior cavoatrial junction. There is stable diffuse increased interstitial opacity due to interstitial infiltrate. There is stable cardiomegaly. No pleural effusion or pneumothorax is seen. IMPRESSION: 1. Interval extubation. 2. Stable diffuse interstitial infiltrate likely due to congestion. Electronically signed by: Cheryl Mann MD (04/04/2019 7:44 AM) [facility]
[2019-04-04] MEDS: ASPIRIN CHEWABLE 81 MG TABLET. PO SCH (08:00)
[2019-04-04] MEDS: IPRATRPIUM/ALBUTEROL 0.5/2.5MG 3 ML NEBU. NEB SCH ×4 (08:58→19:54)
[2019-04-04] MEDS: methylPREDNISolone SOD SUCC PF 40 MG/ML VIAL. IV SCH (09:00)
[2019-04-04] MEDS: amLODIPine BESYLATE 10 MG TABLET PO SCH (09:00)
[2019-04-04] MEDS: FAMOTIDINE 20 MG/2 ML VIAL IVP SCH ×2 (09:00→21:04)
[2019-04-04] MEDS: AMMONIUM LACTATE 12% TOPICAL LOTION 226GM BOTTLE. TP SCH ×2 (09:00→21:05)
[2019-04-04] MEDS: CHLORHEXIDINE 0.12% 15 ML MOUTHWASH. MM SCH ×2 (09:00→21:04)
[2019-04-04] MEDS: LISINOPRIL 5 MG TABLET. PO SCH (09:00)
--- NOTE | 2019-04-04 10:35 | NUR ---
PT/OT at bedside, patient is currently sleeping, will require lift to move, not maintaining alertness enough for assessement.
--- NOTE | 2019-04-04 11:27 | PDOC ---
[facility] [facility] PROGRESS NOTE Chief Complaint Chief Complaint Acute Hypercapnic Respiratory Failure/ARDS due to vaping Pulmonary Edema Bilateral Lung Infiltrates Obstructive sleep apnea OSMAN Increased Troponin Morbid Obesity Pulmonary HTN Tobacco use History of Present Illness History of Present Illness 04/04/19 Pt seen and examined in ICU Pt was finally extubated and is now on BIPAP 40% He was sleepy and NAD Charts and labs reviewed JUANA RN 04/03/19 Pt was seen and examined in the ICU Vent on Spontaneous respirations (40% FiO2, 5 PEEP) JUANA RN Charts and labs reviewed Responded to voice commands with hand movements 04/02/19 Pt was seen and examined in the ICU Still on ventilation and sedated (Vent settings: AC/16/750/40% 5 PEEP) Attempt made to take patient off ventilation on 04/01, was unsuccessful Charts and labs reviewed JUANA RN CXR shows right basilar atelectasis, pulmonary interstitial edema 04/01/19 Pt was seen and examined in the ICU Pt is sedated and on ventilation (Vent settings: AC 16/750/40% 5 PEEP) Pulm attempted to take Pt off ventilation on 03/31, however Pt was unable to remain off vent after 20 min Chart and labs reviewed O2 saturation was 97% D/w RN and respiratory therapist 03/31/19 Pt was seen and examined in ICU Pt is sedated and on ventilation (Vent settings: AC/16/750/40% 5 PEEP) Chart and labs reviewed Responded to request to blink O2 saturation was 97% 03/26/19 Pt seen and examined in ICU Pt is sedated and on ventilation (Vent settings: AC/16/600/60% 10 PEEP) Pt heart rate was in 50s Chart and labs reviewed JUANA RN 03/25/19 Pt seen and examined in the ICU Pt is sedated and on ventilation (Vent settings: AC/16/600/65% 11 PEEP) Chart and labs reviewed JUANA RN 03/24/19 Pt seen and examined in the ICU Pt is on ventilation (Vent settings: AC/16/600/70% 13 PEEP) Chart and labs reviewed JUANA RN 03/23/19 Pt seen/examined in the ICU Pt is still on ventilation (Vent settings: AC/16/600/80% 13 PEEP) JUANA RN Chart and labs reviewed 03/22/19 Pt seen/examined in the ICU Pt is still on ventilation (Vent settings: AC/16/600/80% 13 PEEP) DW RN Chart and labs reviewed Chart Reviewed 03/21/19 Pt seen and examined in the ICU Pt still on ventilation (vent settings: AC/16/600/75% 13 PEEP) JUANA Pulm DIE CUTTING MACHINE OPERATOR regarding starting patient on home medications for HTN 9�13�2019 Patient seen and examined in the ICU He is still ventilated AC/16/600/80% 14 PEEP 03/19/19 Pt seen and examined in ICU on vent (vent settings: AC/16/600/85% 14 PEEP) Pt responsive to voice In mitts for pt safety Pt sedated with versed, fentanyl, and precedex Rectal tube intact Font[place] to BSD Has OG tube to LIS; ET tube placed JUANA RN 03/18/19 Pt seen and examined in ICU on vent (vent settings: AC/16/00/100% 14 PEEP) Pt sedated with versed, fentanyl, and precedex Rectal tube placed Font[place] to BSD Has OG tube to LIS; ET tube placed JUANA RN Chart reviewed 03/17/19 Pt seen and examined in ICU on vent (AC/16/600/100 14peep) Pt has rectal tube and fontana to BSD Sedated with versed, fentanyl, and precedex Pt has ET tube and OG tube to LIS JUANA RN DW case briefer Chart reviewed Vitals/I&O Vitals/I&O: Vital Signs Date Time Temp Pulse Resp B/P (MAP) Pulse Ox O2 Delivery O2 Flow Rate FiO2 04/04/19 10:00 102 20 132/80 (97) 95 BiPAP/CPAP 04/04/19 07:00 98.3 98.3 04/03/19 22:00 4.0 I & O 04/03/19 04/03/19 04/04/19 15:00 23:00 07:00 Intake Total 527.3 ml Output Total 1610 ml 1005 ml 1325 ml Balance -1082.7 ml -1005 ml -1325 ml Physical Exam Physical Exam: GENERAL: Orally intubated/ sedated - lightly, HEENT: opened eyes Pupils equal, nml conj OGT/ETT NECK: Supple LUNGS: dec bs at bases HEART: S1 and S2, regular. ABDOMEN: Obese, soft, +BS : Fontana in place fecal tube in place EXTREMITIES: Trace edema - MITTS SKIN: Chronic stasis dermatitis on the lower extremity. NEUROLOGIC: Sedated IVS; Old RIJ site clean. RUE - PICC clean General: No acute distress, Other (short neck , Mallampati 4 ON VENT) Heart: Regular rate (SR), Other (distante heart sounds) Lungs: Other (decrease bs) Abdomen: Normal bowel sounds, Soft, No tenderness, No hepatosplenomegaly, No masses Extremities: No clubbing, No cyanosis, No edema, Normal pulses, No tendernes s/swelling Skin: No rashes, No breakdown, No significant lesion Labs Labs: Laboratory Tests Test 04/03/19 12:00 04/03/19 12:41 04/04/19 00:25 04/04/19 05:00 O2 Saturation 97 % (92-99) Arterial Blood pH 7.43 (7.35-7.45) Arterial Blood pCO2 at Patient Temp 36 mmHg (35-46) Arterial Blood pO2 at Patient Temp 93 mmHg (75-108) Arterial Blood HCO3 24 mmol/L (21-28) Arterial Blood Base Excess -1 mmol/L (-3-3) FiO2 40 Glucose (Fingerstick) 109 mg/dL (70-99) 76 mg/dL (70-99) White Blood Count 17.1 x10^3/uL (4.0-11.0) Red Blood Count 3.13 x10^6/uL (4.30-5.70) Hemoglobin 7.6 g/dL (13.0-17.5) Hematocrit 24.2 % (39.0-53.0) Mean Corpuscular Volume 78 fL (79-100) Mean Corpuscular Hemoglobin 24 pg (25-35) Mean Corpuscular Hemoglobin Concent 32 g/dL (31-37) Red Cell Distribution Width 19.3 % (11.5-14.5) Platelet Count 202 x10^3/uL (140-400) Neutrophils (%) (Auto) 81 % (31-73) Lymphocytes (%) (Auto) 10 % (24-48) Monocytes (%) (Auto) 9 % (0-9) Eosinophils (%) (Auto) 0 % (0-3) Basophils (%) (Auto) 0 % (0-3) Neutrophils # (Auto) 13.8 x10^3/uL (1.8-7.7) Lymphocytes # (Auto) 1.7 x10^3/uL (1.0-4.8) Monocytes # (Auto) 1.5 x10^3/uL (0.0-1.1) Eosinophils # (Auto) 0.1 x10^3/uL (0.0-0.7) Basophils # (Auto) 0.0 x10^3/uL (0.0-0.2) Sodium Level 141 mmol/L (136-145) Potassium Level 3.8 mmol/L (3.5-5.1) Chloride Level 106 mmol/L (98-107) Carbon Dioxide Level 28 mmol/L (21-32) Anion Gap 7 (6-14) Blood Urea Nitrogen 30 mg/dL (8-26) Creatinine 0.5 mg/dL (0.7-1.3) Estimated GFR (Cockcroft-Gault) 214.7 Glucose Level 76 mg/dL (70-99) Calcium Level 8.4 mg/dL (8.5-10.1) Test 04/04/19 05:54 Glucose (Fingerstick) 73 mg/dL (70-99) Review of Systems Review of Systems: Unable to obtain due to sedated state Assessment and Plan Assessmemt and Plan Problems Medical Problems: (1) CHF exacerbation Status: Acute (2) COPD exacerbation Status: Acute (3) Hypoxia Status: Acute (4) NSTEMI (non-ST elevated myocardial infarction) Status: Acute (5) Respiratory failure Status: Acute Assessment Acute Hypercapnic Respiratory Failure/ARDS due to vaping Pulmonary Edema Bilateral Lung Infiltrates Obstructive sleep apnea OSMAN Increased Troponin Morbid Obesity Pulmonary HTN Tobacco use ARDS Plan ICU monitoring Continue BIPAP Home meds PT/OT Labs DNR Total time 31 min Comment Review of Relevant I have reviewed the following items peter (where applicable) has been applied. Medications: Current Medications Medications (Trade) Dose Ordered Sig/Stefanie Route PRN Reason Start Time Stop Time Status Last Admin Dose Admin Ondansetron HCl (Zofran) 4 mg 1X ONCE IM 04/03/19 12:45 04/03/19 12:46 DC 04/03/19 12:39 TRICIA NAVA III DO Apr 04, 2019 11:27
--- NOTE | 2019-04-04 11:35 | NUR ---
Speech Pathologist at bedside, patient to remain NPO as he is unable to maintain conversation, is drooling, respirations erratic. See note from Speech Pathologist.
[2019-04-05] VITALS (23 sets, daily range): BP systolic 88–147; BP diastolic 57–90
[2019-04-05 04:58] LABS: BASO % 0 % (0-3); EOS # 0.1 x10^3/uL (0.0-0.7); EOS % 1 % (0-3); HEMATOCRIT 22.3 % (39.0-53.0); HEMOGLOBIN 7.1 g/dL (13.0-17.5); LYMPH # 1.4 x10^3/uL (1.0-4.8); LYMPH % 9 % (24-48); MEAN CORPUSCULAR HEMOGLOBIN 25 pg (25-35); MEAN CORPUSCULAR HGB CONC 32 g/dL (31-37); MEAN CORPUSCULAR VOLUME 78 fL (79-100); MONO # 1.2 x10^3/uL (0.0-1.1); MONO % 8 % (0-9); NEUT # 12.6 x10^3/uL (1.8-7.7); NEUT % 82 % (31-73); PLATELET COUNT 174 x10^3/uL (140-400); RED BLOOD COUNT 2.86 x10^6/uL (4.30-5.70); RED CELL DISTRIBUTION WIDTH 20.3 % (11.5-14.5); WHITE BLOOD COUNT 15.3 x10^3/uL (4.0-11.0)
[2019-04-05] MEDS: INSULIN LISPRO 300 UNITS/3 ML VIAL. SQ SCH ×4 (05:58→18:00)
[2019-04-05] MEDS: HEPARIN for SUB-Q USE 5,000 UNIT/ML VIAL. SQ SCH ×3 (06:15→21:20)
--- NOTE | 2019-04-05 06:33 | PDOC ---
PULMONARY PROGRESS NOTES Subjective on bipap, more alert, appears comfortable. Vitals Vital Signs Date Time Temp Pulse Resp B/P (MAP) Pulse Ox O2 Delivery O2 Flow Rate FiO2 04/05/19 06:00 94 20 110/71 (84) 98 BiPAP/CPAP 04/05/19 04:05 97.8 97.8 04/05/19 00:00 4.0 Comments ros as mentioned as above General: No acute distress HEENT: Other (nc at perrl ) Lungs: Other (decrease bs) Cardiovascular: S1, S2 Abdomen: Soft, Non-tender, Other (obese) Neuro Exam: Alert Extremities: Other (lymphedema BLE ) Skin: Warm, Dry Labs Laboratory Tests Test 04/03/19 09:05 04/03/19 10:23 04/03/19 12:00 04/03/19 12:41 O2 Saturation 95 % (92-99) 97 % (92-99) Arterial Blood pH 7.41 (7.35-7.45) 7.43 (7.35-7.45) Arterial Blood pCO2 at Patient Temp 40 mmHg (35-46) 36 mmHg (35-46) Arterial Blood pO2 at Patient Temp 86 mmHg (75-108) 93 mmHg (75-108) Arterial Blood HCO3 24 mmol/L (21-28) 24 mmol/L (21-28) Arterial Blood Base Excess 0 mmol/L (-3-3) -1 mmol/L (-3-3) FiO2 40 40 White Blood Count 16.9 x10^3/uL (4.0-11.0) Red Blood Count 3.18 x10^6/uL (4.30-5.70) Hemoglobin 7.6 g/dL (13.0-17.5) Hematocrit 24.6 % (39.0-53.0) Mean Corpuscular Volume 77 fL (79-100) Mean Corpuscular Hemoglobin 24 pg (25-35) Mean Corpuscular Hemoglobin Concent 31 g/dL (31-37) Red Cell Distribution Width 19.1 % (11.5-14.5) Platelet Count 207 x10^3/uL (140-400) Neutrophils (%) (Auto) 88 % (31-73) Lymphocytes (%) (Auto) 5 % (24-48) Monocytes (%) (Auto) 7 % (0-9) Eosinophils (%) (Auto) 0 % (0-3) Basophils (%) (Auto) 0 % (0-3) Neutrophils # (Auto) 14.9 x10^3/uL (1.8-7.7) Lymphocytes # (Auto) 0.8 x10^3/uL (1.0-4.8) Monocytes # (Auto) 1.2 x10^3/uL (0.0-1.1) Eosinophils # (Auto) 0.0 x10^3/uL (0.0-0.7) Basophils # (Auto) 0.0 x10^3/uL (0.0-0.2) Segmented Neutrophils % 88 % (35-66) Band Neutrophils % 4 % (0-9) Lymphocytes % 8 % (24-48) Platelet Estimate Adequate (ADEQUATE) Anisocytosis Present Glucose (Fingerstick) 109 mg/dL (70-99) Test 04/04/19 00:25 04/04/19 05:00 04/04/19 05:54 04/04/19 12:38 Glucose (Fingerstick) 76 mg/dL (70-99) 73 mg/dL (70-99) 84 mg/dL (70-99) White Blood Count 17.1 x10^3/uL (4.0-11.0) Red Blood Count 3.13 x10^6/uL (4.30-5.70) Hemoglobin 7.6 g/dL (13.0-17.5) Hematocrit 24.2 % (39.0-53.0) Mean Corpuscular Volume 78 fL (79-100) Mean Corpuscular Hemoglobin 24 pg (25-35) Mean Corpuscular Hemoglobin Concent 32 g/dL (31-37) Red Cell Distribution Width 19.3 % (11.5-14.5) Platelet Count 202 x10^3/uL (140-400) Neutrophils (%) (Auto) 81 % (31-73) Lymphocytes (%) (Auto) 10 % (24-48) Monocytes (%) (Auto) 9 % (0-9) Eosinophils (%) (Auto) 0 % (0-3) Basophils (%) (Auto) 0 % (0-3) Neutrophils # (Auto) 13.8 x10^3/uL (1.8-7.7) Lymphocytes # (Auto) 1.7 x10^3/uL (1.0-4.8) Monocytes # (Auto) 1.5 x10^3/uL (0.0-1.1) Eosinophils # (Auto) 0.1 x10^3/uL (0.0-0.7) Basophils # (Auto) 0.0 x10^3/uL (0.0-0.2) Sodium Level 141 mmol/L (136-145) Potassium Level 3.8 mmol/L (3.5-5.1) Chloride Level 106 mmol/L (98-107) Carbon Dioxide Level 28 mmol/L (21-32) Anion Gap 7 (6-14) Blood Urea Nitrogen 30 mg/dL (8-26) Creatinine 0.5 mg/dL (0.7-1.3) Estimated GFR (Cockcroft-Gault) 214.7 Glucose Level 76 mg/dL (70-99) Calcium Level 8.4 mg/dL (8.5-10.1) Test 04/04/19 18:02 04/04/19 23:58 04/05/19 04:45 04/05/19 05:50 Glucose (Fingerstick) 80 mg/dL (70-99) 73 mg/dL (70-99) 75 mg/dL (70-99) White Blood Count 15.3 x10^3/uL (4.0-11.0) Red Blood Count 2.86 x10^6/uL (4.30-5.70) Hemoglobin 7.1 g/dL (13.0-17.5) Hematocrit 22.3 % (39.0-53.0) Mean Corpuscular Volume 78 fL (79-100) Mean Corpuscular Hemoglobin 25 pg (25-35) Mean Corpuscular Hemoglobin Concent 32 g/dL (31-37) Red Cell Distribution Width 20.3 % (11.5-14.5) Platelet Count 174 x10^3/uL (140-400) Neutrophils (%) (Auto) 82 % (31-73) Lymphocytes (%) (Auto) 9 % (24-48) Monocytes (%) (Auto) 8 % (0-9) Eosinophils (%) (Auto) 1 % (0-3) Basophils (%) (Auto) 0 % (0-3) Neutrophils # (Auto) 12.6 x10^3/uL (1.8-7.7) Lymphocytes # (Auto) 1.4 x10^3/uL (1.0-4.8) Monocytes # (Auto) 1.2 x10^3/uL (0.0-1.1) Eosinophils # (Auto) 0.1 x10^3/uL (0.0-0.7) Basophils # (Auto) 0.0 x10^3/uL (0.0-0.2) Laboratory Tests Test 04/04/19 12:38 04/04/19 18:02 04/04/19 23:58 04/05/19 04:45 Glucose (Fingerstick) 84 mg/dL (70-99) 80 mg/dL (70-99) 73 mg/dL (70-99) White Blood Count 15.3 x10^3/uL (4.0-11.0) Red Blood Count 2.86 x10^6/uL (4.30-5.70) Hemoglobin 7.1 g/dL (13.0-17.5) Hematocrit 22.3 % (39.0-53.0) Mean Corpuscular Volume 78 fL (79-100) Mean Corpuscular Hemoglobin 25 pg (25-35) Mean Corpuscular Hemoglobin Concent 32 g/dL (31-37) Red Cell Distribution Width 20.3 % (11.5-14.5) Platelet Count 174 x10^3/uL (140-400) Neutrophils (%) (Auto) 82 % (31-73) Lymphocytes (%) (Auto) 9 % (24-48) Monocytes (%) (Auto) 8 % (0-9) Eosinophils (%) (Auto) 1 % (0-3) Basophils (%) (Auto) 0 % (0-3) Neutrophils # (Auto) 12.6 x10^3/uL (1.8-7.7) Lymphocytes # (Auto) 1.4 x10^3/uL (1.0-4.8) Monocytes # (Auto) 1.2 x10^3/uL (0.0-1.1) Eosinophils # (Auto) 0.1 x10^3/uL (0.0-0.7) Basophils # (Auto) 0.0 x10^3/uL (0.0-0.2) Test 04/05/19 05:50 Glucose (Fingerstick) 75 mg/dL (70-99) Medications Active Scripts Medications Dose Route/Sig Max Daily Dose Days Date Category Hydrochlorothiazide Tablet (Hydrochlorothiazide) 25 Mg Tablet 25 Mg PO DAILY 03/10/19 Reported Norvasc (Amlodipine Besylate) 5 Mg Tablet 1 Tab PO DAILY 01/12/19 Rx Lisinopril 5 Mg Tablet 1 Tab PO DAILY 01/12/19 Rx Comments CXR basal atelectasis , overall improved Impression . 1. Acute hypercarbic/hypoxic respiratory Failure due to ARDS , vaping related, extubated 04/03 2. Suspected VAP , Rx , currently off ABX 3.Hypertension (controlled) 4. Pre-renal Azotemia, improved 5. Pulm. HTN PA pressure 55 Normal EF 6. HX. of tobacco use 7. Morbid obesity Plan . 1. bipap prn during day, cont at night, abg on , reviewed, cont 02 titration 2. steroids ,initiated 03/16 , taper 3. off abx at this time 4. no further fever 5. Continue bronchodilators. 6. Heparin for DVT prophylaxis 7 azotemia .renal following 8. pt ot discussed with RN and RT. SAFIA WISEMAN MD Apr 05, 2019 06:33
[2019-04-05] MEDS: ASPIRIN CHEWABLE 81 MG TABLET. PO SCH (08:00)
[2019-04-05] MEDS: FAMOTIDINE 20 MG/2 ML VIAL IVP SCH ×2 (08:05→21:16)
[2019-04-05] MEDS: methylPREDNISolone SOD SUCC PF 40 MG/ML VIAL. IV SCH (08:05)
[2019-04-05] MEDS: CHLORHEXIDINE 0.12% 15 ML MOUTHWASH. MM SCH (08:06)
[2019-04-05] MEDS: AMMONIUM LACTATE 12% TOPICAL LOTION 226GM BOTTLE. TP SCH ×2 (08:15→21:16)
[2019-04-05] MEDS: IPRATRPIUM/ALBUTEROL 0.5/2.5MG 3 ML NEBU. NEB SCH ×4 (08:40→20:48)
[2019-04-05 08:58] LABS: BASE EXCESS ABG -2 mmol/L (-3-3); HCO3 ABG 23 mmol/L (21-28); PCO2 ABG 37 mmHg (35-46); PO2 ABG 85 mmHg (75-108); SAT O2 ABG 96 % (92-99)
[2019-04-05] MEDS: LISINOPRIL 5 MG TABLET. PO SCH (09:00)
[2019-04-05] MEDS: amLODIPine BESYLATE 10 MG TABLET PO SCH (09:00)
--- NOTE | 2019-04-05 12:12 | PDOC ---
[employer] [facility] PROGRESS NOTE Chief Complaint Chief Complaint Acute Hypercapnic Respiratory Failure/ARDS due to vaping Pulmonary Edema Bilateral Lung Infiltrates Obstructive sleep apnea OSMAN Increased Troponin Morbid Obesity Pulmonary HTN Tobacco use History of Present Illness History of Present Illness 04/05/19 Pt seen and examined in the ICU Pt seen with O2 by nasal cannula Charts and labs reviewed pH=7.4, pCO2=36.8, pO2=85.3 JUANA RN Speech pathology needed prior to initiating meals 04/04/19 Pt seen and examined in ICU Pt was finally extubated and is now on BIPAP 40% He was sleepy and NAD Charts and labs reviewed JUANA RN 04/03/19 Pt was seen and examined in the ICU Vent on Spontaneous respirations (40% FiO2, 5 PEEP) JUANA RN Charts and labs reviewed Responded to voice commands with hand movements 04/02/19 Pt was seen and examined in the ICU Still on ventilation and sedated (Vent settings: AC/16/750/40% 5 PEEP) Attempt made to take patient off ventilation on 04/01, was unsuccessful Charts and labs reviewed JUANA RN CXR shows right basilar atelectasis, pulmonary interstitial edema 04/01/19 Pt was seen and examined in the ICU Pt is sedated and on ventilation (Vent settings: AC 16/750/40% 5 PEEP) Pulm attempted to take Pt off ventilation on 03/31, however Pt was unable to remain off vent after 20 min Chart and labs reviewed O2 saturation was 97% D/w RN and respiratory therapist 03/31/19 Pt was seen and examined in ICU Pt is sedated and on ventilation (Vent settings: AC/16/750/40% 5 PEEP) Chart and labs reviewed Responded to request to blink O2 saturation was 97% 03/26/19 Pt seen and examined in ICU Pt is sedated and on ventilation (Vent settings: AC/16/600/60% 10 PEEP) Pt heart rate was in 50s Chart and labs reviewed JUANA RN 03/25/19 Pt seen and examined in the ICU Pt is sedated and on ventilation (Vent settings: AC/16/600/65% 11 PEEP) Chart and labs reviewed JUANA RN 03/24/19 Pt seen and examined in the ICU Pt is on ventilation (Vent settings: AC/16/600/70% 13 PEEP) Chart and labs reviewed JUANA RN 03/23/19 Pt seen/examined in the ICU Pt is still on ventilation (Vent settings: AC/16/600/80% 13 PEEP) JUANA RN Chart and labs reviewed 03/22/19 Pt seen/examined in the ICU Pt is still on ventilation (Vent settings: AC/16/600/80% 13 PEEP) JUANA RN Chart and labs reviewed Chart Reviewed 03/21/19 Pt seen and examined in the ICU Pt still on ventilation (vent settings: AC/16/600/75% 13 PEEP) JUANA Pulm WELDER ASSEMBLER regarding starting patient on home medications for HTN 9�13�2019 Patient seen and examined in the ICU He is still ventilated AC/16/600/80% 14 PEEP 03/19/19 Pt seen and examined in ICU on vent (vent settings: AC/16/600/85% 14 PEEP) Pt responsive to voice In mitts for pt safety Pt sedated with versed, fentanyl, and precedex Rectal tube intact Font[place] to BSD Has OG tube to LIS; ET tube placed JUANA RN 03/18/19 Pt seen and examined in ICU on vent (vent settings: AC/16/00/100% 14 PEEP) Pt sedated with versed, fentanyl, and precedex Rectal tube placed Font[place] to BSD Has OG tube to LIS; ET tube placed DW RN Chart reviewed 03/17/19 Pt seen and examined in ICU on vent (AC/16/600/100 14peep) Pt has rectal tube and fontana to BSD Sedated with versed, fentanyl, and precedex Pt has ET tube and OG tube to LIS DW RN DW nurse outreach case manager Chart reviewed Vitals/I&O Vitals/I&O: Vital Signs Date Time Temp Pulse Resp B/P (MAP) Pulse Ox O2 Delivery O2 Flow Rate FiO2 04/05/19 11:00 98 28 113/69 (84) 100 High Flow Nasal Cannula 6.0 04/05/19 08:00 98.2 98.2 I & O 04/04/19 04/04/19 04/05/19 14:59 22:59 06:59 Intake Total 0 ml Output Total 1025 ml 935 ml 610 ml Balance -1025 ml -935 ml -610 ml Physical Exam Physical Exam: GENERAL: Orally intubated/ sedated - lightly, HEENT: opened eyes Pupils equal, nml conj OGT/ETT NECK: Supple LUNGS: dec bs at bases HEART: S1 and S2, regular. ABDOMEN: Obese, soft, +BS : Font[place] in place fecal tube in place EXTREMITIES: Trace edema - MITTS SKIN: Chronic stasis dermatitis on the lower extremity. NEUROLOGIC: Awake IVS; Old RIJ site clean. RUE - PICC clean General: Alert, Cooperative, No acute distress, Other (short neck , Mallampati 4 ON VENT) Heart: Regular rate (SR), Normal S1, Normal S2, Other (distante heart sounds) Lungs: Other (decrease bs) Abdomen: Normal bowel sounds, Soft, No tenderness, No hepatosplenomegaly, No masses Extremities: No clubbing, No cyanosis, No edema, Normal pulses, No tenderness/swelling Skin: No rashes, No breakdown, No significant lesion Labs Labs: Laboratory Tests Test 04/04/19 12:38 04/04/19 18:02 04/04/19 23:58 04/05/19 04:45 Glucose (Fingerstick) 84 mg/dL (70-99) 80 mg/dL (70-99) 73 mg/dL (70-99) White Blood Count 15.3 x10^3/uL (4.0-11.0) Red Blood Count 2.86 x10^6/uL (4.30-5.70) Hemoglobin 7.1 g/dL (13.0-17.5) Hematocrit 22.3 % (39.0-53.0) Mean Corpuscular Volume 78 fL (79-100) Mean Corpuscular Hemoglobin 25 pg (25-35) Mean Corpuscular Hemoglobin Concent 32 g/dL (31-37) Red Cell Distribution Width 20.3 % (11.5-14.5) Platelet Count 174 x10^3/uL (140-400) Neutrophils (%) (Auto) 82 % (31-73) Lymphocytes (%) (Auto) 9 % (24-48) Monocytes (%) (Auto) 8 % (0-9) Eosinophils (%) (Auto) 1 % (0-3) Basophils (%) (Auto) 0 % (0-3) Neutrophils # (Auto) 12.6 x10^3/uL (1.8-7.7) Lymphocytes # (Auto) 1.4 x10^3/uL (1.0-4.8) Monocytes # (Auto) 1.2 x10^3/uL (0.0-1.1) Eosinophils # (Auto) 0.1 x10^3/uL (0.0-0.7) Basophils # (Auto) 0.0 x10^3/uL (0.0-0.2) Test 04/05/19 05:50 04/05/19 08:50 Glucose (Fingerstick) 75 mg/dL (70-99) O2 Saturation 96 % (92-99) Arterial Blood pH 7.41 (7.35-7.45) Arterial Blood pCO2 at Patient Temp 37 mmHg (35-46) Arterial Blood pO2 at Patient Temp 85 mmHg (75-108) Arterial Blood HCO3 23 mmol/L (21-28) Arterial Blood Base Excess -2 mmol/L (-3-3) FiO2 6 lpm nc Review of Systems Review of Systems: No headache, no loss of vision No nausea, no vomiting Assessment and Plan Assessmemt and Plan Problems Medical Problems: (1) CHF exacerbation Status: Acute (2) COPD exacerbation Status: Acute (3) Hypoxia Status: Acute (4) NSTEMI (non-ST elevated myocardial infarction) Status: Acute (5) Respiratory failure Status: Acute Assessment Respiratory failure Obesity CHF COPD Hypoxia Plan ICU monitoring Continue O2 by nasal cannula Vaping cessation PT/OT Labs BIPAP/CPAP HS No abx Bronchodilators Steroids Comment Review of Relevant I have reviewed the following items peter (where applicable) has been applied. TRICIA NAVA III, DO Apr 05, 2019 12:12
--- NOTE | 2019-04-05 14:20 | PDOC ---
PROGRESS NOTES Assessment Assessment IMPRESSION: Myoclonic movements. Respiratory failure. ARDS. DM. HTN. COPD. SHARON. Morbid obesity. Vaping, Hx. RECOMMENDATIONS/PLAN: Continue ASA daily. Continue medical treatment. OT/PT. Weight reduction. PAST MEDICAL HISTORY: Hypertension. Ascending thoracic aorta 4.4 cm. Chronic lymphedema. History of congestive heart failure. Chronic obstructive pulmonary disease. Obstructive sleep apnea. ALLERGIES: No known allergies to drugs. FAMILY HISTORY: Hypertension. SOCIAL HISTORY: He smokes less than a pack a day. He does not drink alcohol or use recreational drugs. PAST SURGICAL HISTORY: No major surgery recently. MEDICATIONS: Refer to [facility] REVIEW OF SYSTEMS: Constitutional: Morbid obesity. Head: No recent traumatic brain or head injury. Skin: No edema, or rash. Ear: No infection. Eyes: No vision loss, or diplopia. Nose: No bleeding or purulent discharges. Hearing: No hearing decrease. Neck: No injury. Cardiac: HTN Pulmonary: COPD. GI: No GI Ulcer, GI bleeding Urinary/genital: No dysuria, incontinence, urinary retention. Endocrine: Diabetes Mellitus. Skeletomuscular: No muscular atrophy. Neurological: see HP. Psychiatric: Denies drug use/abuse. Otherwise, not [id number] review of systems. PHYSICAL EXAMINATION: General appearance in subacute distress. HEENT: Normocephalic and nontraumatic. Eyes, nose, ears, and throat are unremarkable. Neck is supple. No lymphadenopathy. No Crepitus. Cardiovascular: S1, S2, regular rate and rhythm. Pulmonary: Mildly decreased to auscultation bilaterally. Abdomen: Bowel sounds are positive. Abdomen is soft, nontender, and nondistended. Extremities: Chronic skin changes as venous stasis in LE. No restriction of range of motion NEUROLOGICAL EXAMINATION: Alert. Oriented partially o time, place and person. PERRL. EOMI. CN: no focal findings. Muscle tone: within normal. Muscle strength: 5 UE, 3-4 LE DTR: 1 Plantar reflex: Flexor response bilaterally Gait: not examined in bed. Sensory exam: no abnormal findings. No cerebellar signs elicited. F-T-N test fine. Objective Objective Vital Signs Date Time Temp Pulse Resp B/P (MAP) Pulse Ox O2 Delivery O2 Flow Rate FiO2 04/05/19 13:20 100 Nasal Cannula 6.0 04/05/19 12:00 98.1 102 16 132/90 (104) 98.1 Intake and Output 04/05/19 07:00 Intake Total 0 ml Output Total 2420 ml Balance -2420 ml Intake Oral 0 ml Output Urine Total 2320 ml Stool Total 100 ml Vitals Signs Vitals VS - Last 72 Hours, by Label Date Time Temp Pulse Resp B/P (MAP) Pulse Ox O2 Delivery O2 Flow Rate FiO2 04/05/19 13:20 100 Nasal Cannula 6.0 04/05/19 12:00 98.1 102 16 132/90 (104) 100 High Flow Nasal Cannula 6.0 98.1 04/05/19 12:00 Nasal Cannula 6.0 04/05/19 11:00 98 28 113/69 (84) 100 High Flow Nasal Cannula 6.0 04/05/19 10:00 97 28 115/75 (88) 95 High Flow Nasal Cannula 6.0 04/05/19 09:00 98 25 118/74 (89) 100 High Flow Nasal Cannula 6.0 04/05/19 09:00 98 118/74 04/05/19 09:00 98 118/74 04/05/19 08:40 98 Nasal Cannula 6.0 04/05/19 08:00 98.2 96 27 103/71 (82) 100 High Flow Nasal Cannula 98.2 04/05/19 08:00 Nasal Cannula 6.0 04/05/19 07:00 90 23 139/75 (96) 99 BiPAP/CPAP 04/05/19 06:00 94 20 110/71 (84) 98 BiPAP/CPAP 04/05/19 05:15 96 BiPAP/CPAP 04/05/19 04:05 97.8 97.8 04/05/19 04:01 Bi-pap 04/05/19 04:01 93 16 109/64 (79) 98 BiPAP/CPAP 04/05/19 03:00 92 16 106/63 (77) 97 BiPAP/CPAP 04/05/19 02:20 97 BiPAP/CPAP 04/05/19 02:00 85 18 97/69 (78) 100 BiPAP/CPAP 04/05/19 01:00 92 20 97/61 (73) 100 BiPAP/CPAP 04/05/19 00:00 Nasal Cannula 4.0 04/05/19 00:00 97.8 89 20 100/62 (75) 100 BiPAP/CPAP 97.8 04/05/19 00:00 97 BiPAP/CPAP 04/04/19 23:00 89 20 120/65 (83) 98 BiPAP/CPAP 04/04/19 22:00 76 22 138/76 (96) 98 BiPAP/CPAP 04/04/19 21:31 97 BiPAP/CPAP 04/04/19 21:00 98 20 146/77 (100) 90 Nasal Cannula 4.0 04/04/19 20:00 97.9 102 20 154/85 (108) 98 Nasal Cannula 4.0 97.9 04/04/19 20:00 Nasal Cannula 4.0 04/04/19 19:54 95 Nasal Cannula 4.0 04/04/19 19:00 98 20 152/86 (108) 99 Nasal Cannula 4.0 04/04/19 18:00 91 18 142/74 (96) 100 BiPAP/CPAP 04/04/19 17:00 93 21 120/62 (81) 100 BiPAP/CPAP 04/04/19 16:55 100 BiPAP/CPAP 04/04/19 16:00 Bi-pap 04/04/19 16:00 97.8 97 24 150/76 (100) 100 BiPAP/CPAP 97.8 04/04/19 15:00 93 29 143/76 (98) 99 BiPAP/CPAP 04/04/19 14:00 96 24 152/81 (104) 100 BiPAP/CPAP 04/04/19 13:00 96 20 145/74 (97) 100 BiPAP/CPAP 04/04/19 12:05 97 Nasal Cannula 5.0 04/04/19 12:00 97.5 102 18 126/66 (86) 93 High Flow Nasal Cannula 97.5 04/04/19 12:00 Nasal Cannula 6.0 04/04/19 11:00 98 19 136/70 (92) 98 High Flow Nasal Cannula 6.0 04/04/19 10:00 102 20 132/80 (97) 95 BiPAP/CPAP 04/04/19 09:00 98 25 139/78 (98) 100 BiPAP/CPAP 04/04/19 09:00 98 146/81 04/04/19 09:00 90 146/81 04/04/19 08:58 99 BiPAP/CPAP 04/04/19 08:00 90 30 146/81 (102) 100 BiPAP/CPAP 04/04/19 08:00 Bi-pap 04/04/19 07:00 98.3 100 25 133/72 (92) 100 BiPAP/CPAP 98.3 Laboratory Laboratory Laboratory Tests Test 04/04/19 18:02 04/04/19 23:58 04/05/19 04:45 04/05/19 05:50 Glucose (Fingerstick) 80 mg/dL (70-99) 73 mg/dL (70-99) 75 mg/dL (70-99) White Blood Count 15.3 x10^3/uL (4.0-11.0) Red Blood Count 2.86 x10^6/uL (4.30-5.70) Hemoglobin 7.1 g/dL (13.0-17.5) Hematocrit 22.3 % (39.0-53.0) Mean Corpuscular Volume 78 fL (79-100) Mean Corpuscular Hemoglobin 25 pg (25-35) Mean Corpuscular Hemoglobin Concent 32 g/dL (31-37) Red Cell Distribution Width 20.3 % (11.5-14.5) Platelet Count 174 x10^3/uL (140-400) Neutrophils (%) (Auto) 82 % (31-73) Lymphocytes (%) (Auto) 9 % (24-48) Monocytes (%) (Auto) 8 % (0-9) Eosinophils (%) (Auto) 1 % (0-3) Basophils (%) (Auto) 0 % (0-3) Neutrophils # (Auto) 12.6 x10^3/uL (1.8-7.7) Lymphocytes # (Auto) 1.4 x10^3/uL (1.0-4.8) Monocytes # (Auto) 1.2 x10^3/uL (0.0-1.1) Eosinophils # (Auto) 0.1 x10^3/uL (0.0-0.7) Basophils # (Auto) 0.0 x10^3/uL (0.0-0.2) Test 04/05/19 08:50 04/05/19 12:16 O2 Saturation 96 % (92-99) Arterial Blood pH 7.41 (7.35-7.45) Arterial Blood pCO2 at Patient Temp 37 mmHg (35-46) Arterial Blood pO2 at Patient Temp 85 mmHg (75-108) Arterial Blood HCO3 23 mmol/L (21-28) Arterial Blood Base Excess -2 mmol/L (-3-3) FiO2 6 lpm nc Glucose (Fingerstick) 90 mg/dL (70-99) Microbiology 03/16/19 - Final, Complete 03/16/19 - Final, Complete 03/16/19 Gram Stain Evaluation - Final, Complete 03/16/19 Sputum Culture - Final, Complete 03/16/19 Sputum Result 1 - Final, Complete 03/16/19 Blood Culture - Final, Complete NO GROWTH AFTER 5 DAYS 03/09/19 Urine Culture - Final, Complete 03/09/19 Urine Culture Result 1 (WIL) - Final, Complete Comment Review of Relevant I have reviewed the following items peter (where applicable) has been applied. MARLENA MCFARLANE MD Apr 05, 2019 14:20
[2019-04-06] VITALS (17 sets, daily range): BP systolic 90–150; BP diastolic 52–85
[2019-04-06] MEDS: INSULIN LISPRO 300 UNITS/3 ML VIAL. SQ SCH ×4 (05:37→18:00)
[2019-04-06] MEDS: HEPARIN for SUB-Q USE 5,000 UNIT/ML VIAL. SQ SCH ×3 (05:39→21:36)
[2019-04-06 06:00] LABS: ALBUMIN 2.2 g/dL (3.4-5.0); ALBUMIN/GLOBULIN RATIO 0.7 (1.0-1.7); CALCIUM 8.6 mg/dL (8.5-10.1); CREATININE 0.6 mg/dL (0.7-1.3); POTASSIUM 3.4 mmol/L (3.5-5.1); TOTAL BILIRUBIN 1.5 mg/dL (0.2-1.0); TOTAL PROTEIN 5.3 g/dL (6.4-8.2)
[2019-04-06 06:02] LABS: BASO # 0.1 x10^3/uL (0.0-0.2); BASO % 1 % (0-3); EOS # 0.1 x10^3/uL (0.0-0.7); EOS % 1 % (0-3); LYMPH # 1.6 x10^3/uL (1.0-4.8); LYMPH % 13 % (24-48); MEAN CORPUSCULAR HEMOGLOBIN 25 pg (25-35); MEAN CORPUSCULAR HGB CONC 31 g/dL (31-37); MEAN CORPUSCULAR VOLUME 79 fL (79-100); MONO # 0.9 x10^3/uL (0.0-1.1); MONO % 8 % (0-9); NEUT # 9.4 x10^3/uL (1.8-7.7); NEUT % 77 % (31-73); PLATELET COUNT 147 x10^3/uL (140-400); RED BLOOD COUNT 2.52 x10^6/uL (4.30-5.70); RED CELL DISTRIBUTION WIDTH 20.7 % (11.5-14.5); WHITE BLOOD COUNT 12.2 x10^3/uL (4.0-11.0)
[2019-04-06 06:38] LABS: HEMATOCRIT 19.9 % (39.0-53.0); HEMOGLOBIN 6.3 g/dL (13.0-17.5)
[2019-04-06] MEDS: IPRATRPIUM/ALBUTEROL 0.5/2.5MG 3 ML NEBU. NEB SCH ×4 (07:41→20:13)
[2019-04-06] MEDS: ASPIRIN CHEWABLE 81 MG TABLET. PO SCH (08:00)
[2019-04-06] MEDS: LISINOPRIL 5 MG TABLET. PO SCH (09:00)
[2019-04-06] MEDS: amLODIPine BESYLATE 10 MG TABLET PO SCH (09:00)
[2019-04-06] MEDS: methylPREDNISolone SOD SUCC PF 40 MG/ML VIAL. IV SCH (10:06)
[2019-04-06] MEDS: FAMOTIDINE 20 MG/2 ML VIAL IVP SCH ×2 (10:08→21:27)
[2019-04-06] MEDS: AMMONIUM LACTATE 12% TOPICAL LOTION 226GM BOTTLE. TP SCH ×2 (10:10→21:28)
[2019-04-06] MEDS: SCOPOLAMINE 1.5MG PATCH. TD SCH (10:24)
--- NOTE | 2019-04-06 10:42 | PDOC ---
PULMONARY PROGRESS NOTES Subjective on , talking very weak extubated saturday Vitals Vital Signs Date Time Temp Pulse Resp B/P (MAP) Pulse Ox O2 Delivery O2 Flow Rate FiO2 04/06/19 09:00 86 24 112/52 (72) 93 Nasal Cannula 2.0 04/06/19 08:00 98.7 98.7 General: Alert, No acute distress Lungs: Other (decrease bs) Cardiovascular: S1, S2 Abdomen: Soft, Non-tender, Other (obese) Neuro Exam: Alert Extremities: Other (lymphedema BLE ) Skin: Warm, Dry Labs Laboratory Tests Test 04/04/19 12:38 04/04/19 18:02 04/04/19 23:58 04/05/19 04:45 Glucose (Fingerstick) 84 mg/dL (70-99) 80 mg/dL (70-99) 73 mg/dL (70-99) White Blood Count 15.3 x10^3/uL (4.0-11.0) Red Blood Count 2.86 x10^6/uL (4.30-5.70) Hemoglobin 7.1 g/dL (13.0-17.5) Hematocrit 22.3 % (39.0-53.0) Mean Corpuscular Volume 78 fL (79-100) Mean Corpuscular Hemoglobin 25 pg (25-35) Mean Corpuscular Hemoglobin Concent 32 g/dL (31-37) Red Cell Distribution Width 20.3 % (11.5-14.5) Platelet Count 174 x10^3/uL (140-400) Neutrophils (%) (Auto) 82 % (31-73) Lymphocytes (%) (Auto) 9 % (24-48) Monocytes (%) (Auto) 8 % (0-9) Eosinophils (%) (Auto) 1 % (0-3) Basophils (%) (Auto) 0 % (0-3) Neutrophils # (Auto) 12.6 x10^3/uL (1.8-7.7) Lymphocytes # (Auto) 1.4 x10^3/uL (1.0-4.8) Monocytes # (Auto) 1.2 x10^3/uL (0.0-1.1) Eosinophils # (Auto) 0.1 x10^3/uL (0.0-0.7) Basophils # (Auto) 0.0 x10^3/uL (0.0-0.2) Test 04/05/19 05:50 04/05/19 08:50 04/05/19 12:16 04/05/19 18:05 Glucose (Fingerstick) 75 mg/dL (70-99) 90 mg/dL (70-99) 80 mg/dL (70-99) O2 Saturation 96 % (92-99) Arterial Blood pH 7.41 (7.35-7.45) Arterial Blood pCO2 at Patient Temp 37 mmHg (35-46) Arterial Blood pO2 at Patient Temp 85 mmHg (75-108) Arterial Blood HCO3 23 mmol/L (21-28) Arterial Blood Base Excess -2 mmol/L (-3-3) FiO2 6 lpm nc Test 04/05/19 23:54 04/06/19 05:36 04/06/19 05:40 Glucose (Fingerstick) 87 mg/dL (70-99) 80 mg/dL (70-99) White Blood Count 12.2 x10^3/uL (4.0-11.0) Red Blood Count 2.52 x10^6/uL (4.30-5.70) Hemoglobin 6.3 g/dL (13.0-17.5) Hematocrit 19.9 % (39.0-53.0) Mean Corpuscular Volume 79 fL (79-100) Mean Corpuscular Hemoglobin 25 pg (25-35) Mean Corpuscular Hemoglobin Concent 31 g/dL (31-37) Red Cell Distribution Width 20.7 % (11.5-14.5) Platelet Count 147 x10^3/uL (140-400) Neutrophils (%) (Auto) 77 % (31-73) Lymphocytes (%) (Auto) 13 % (24-48) Monocytes (%) (Auto) 8 % (0-9) Eosinophils (%) (Auto) 1 % (0-3) Basophils (%) (Auto) 1 % (0-3) Neutrophils # (Auto) 9.4 x10^3/uL (1.8-7.7) Lymphocytes # (Auto) 1.6 x10^3/uL (1.0-4.8) Monocytes # (Auto) 0.9 x10^3/uL (0.0-1.1) Eosinophils # (Auto) 0.1 x10^3/uL (0.0-0.7) Basophils # (Auto) 0.1 x10^3/uL (0.0-0.2) Sodium Level 145 mmol/L (136-145) Potassium Level 3.4 mmol/L (3.5-5.1) Chloride Level 110 mmol/L (98-107) Carbon Dioxide Level 26 mmol/L (21-32) Anion Gap 9 (6-14) Blood Urea Nitrogen 28 mg/dL (8-26) Creatinine 0.6 mg/dL (0.7-1.3) Estimated GFR (Cockcroft-Gault) 174.0 BUN/Creatinine Ratio 47 (6-20) Glucose Level 82 mg/dL (70-99) Calcium Level 8.6 mg/dL (8.5-10.1) Total Bilirubin 1.5 mg/dL (0.2-1.0) Aspartate Amino Transf (AST/SGOT) 23 U/L (15-37) Alanine Aminotransferase (ALT/SGPT) 43 U/L (16-63) Alkaline Phosphatase 65 U/L (46-116) Total Protein 5.3 g/dL (6.4-8.2) Albumin 2.2 g/dL (3.4-5.0) Albumin/Globulin Ratio 0.7 (1.0-1.7) Laboratory Tests Test 04/05/19 12:16 04/05/19 18:05 04/05/19 23:54 04/06/19 05:36 Glucose (Fingerstick) 90 mg/dL (70-99) 80 mg/dL (70-99) 87 mg/dL (70-99) 80 mg/dL (70-99) Test 04/06/19 05:40 White Blood Count 12.2 x10^3/uL (4.0-11.0) Red Blood Count 2.52 x10^6/uL (4.30-5.70) Hemoglobin 6.3 g/dL (13.0-17.5) Hematocrit 19.9 % (39.0-53.0) Mean Corpuscular Volume 79 fL (79-100) Mean Corpuscular Hemoglobin 25 pg (25-35) Mean Corpuscular Hemoglobin Concent 31 g/dL (31-37) Red Cell Distribution Width 20.7 % (11.5-14.5) Platelet Count 147 x10^3/uL (140-400) Neutrophils (%) (Auto) 77 % (31-73) Lymphocytes (%) (Auto) 13 % (24-48) Monocytes (%) (Auto) 8 % (0-9) Eosinophils (%) (Auto) 1 % (0-3) Basophils (%) (Auto) 1 % (0-3) Neutrophils # (Auto) 9.4 x10^3/uL (1.8-7.7) Lymphocytes # (Auto) 1.6 x10^3/uL (1.0-4.8) Monocytes # (Auto) 0.9 x10^3/uL (0.0-1.1) Eosinophils # (Auto) 0.1 x10^3/uL (0.0-0.7) Basophils # (Auto) 0.1 x10^3/uL (0.0-0.2) Sodium Level 145 mmol/L (136-145) Potassium Level 3.4 mmol/L (3.5-5.1) Chloride Level 110 mmol/L (98-107) Carbon Dioxide Level 26 mmol/L (21-32) Anion Gap 9 (6-14) Blood Urea Nitrogen 28 mg/dL (8-26) Creatinine 0.6 mg/dL (0.7-1.3) Estimated GFR (Cockcroft-Gault) 174.0 BUN/Creatinine Ratio 47 (6-20) Glucose Level 82 mg/dL (70-99) Calcium Level 8.6 mg/dL (8.5-10.1) Total Bilirubin 1.5 mg/dL (0.2-1.0) Aspartate Amino Transf (AST/SGOT) 23 U/L (15-37) Alanine Aminotransferase (ALT/SGPT) 43 U/L (16-63) Alkaline Phosphatase 65 U/L (46-116) Total Protein 5.3 g/dL (6.4-8.2) Albumin 2.2 g/dL (3.4-5.0) Albumin/Globulin Ratio 0.7 (1.0-1.7) Medications Active Scripts Medications Dose Route/Sig Max Daily Dose Days Date Category Hydrochlorothiazide Tablet (Hydrochlorothiazide) 25 Mg Tablet 25 Mg PO DAILY 03/10/19 Reported Norvasc (Amlodipine Besylate) 5 Mg Tablet 1 Tab PO DAILY 01/12/19 Rx Lisinopril 5 Mg Tablet 1 Tab PO DAILY 01/12/19 Rx Comments CXR basal atelectasis , overall improved Impression . 1. Acute hypercarbic/hypoxic respiratory Failure due to ARDS , vaping related, extubated 04/03 2. Suspected VAP , Rx , currently off ABX 3.Hypertension (controlled) 4. Pre-renal Azotemia, improved 5. Pulm. HTN PA pressure 55 Normal EF 6. HX. of tobacco use 7. Morbid obesity Plan . 1. bipap prn at night, abg on , reviewed, cont 02 titration 2. steroids ,initiated 03/16 , dc today 3. off abx at this time 4. no further fever 5. Continue bronchodilators. 6. Heparin for DVT prophylaxis 7 azotemia .renal following 8. pt ot discussed with RN and RT. MARIO ALLEN MD Apr 06, 2019 10:42
--- NOTE | 2019-04-06 11:47 | NUR ---
SS following up with discharge planning. [facility] is following for self pay status. PT/OT recommending snf unit but unable to go at this time due to self pay status. SS will continue to follow for discharge planning.
--- NOTE | 2019-04-06 12:00 | PDOC ---
[facility] PROGRESS NOTE Chief Complaint Chief Complaint Acute Hypercapnic Respiratory Failure/ARDS due to vaping Pulmonary Edema Bilateral Lung Infiltrates Obstructive sleep apnea OSMAN Increased Troponin Morbid Obesity Pulmonary HTN Tobacco use History of Present Illness History of Present Illness 04/06/19 Pt seen and examined in ICU Pt's brother was giving him a haircut Pt is awake and oriented Charts and labs reviewed Pt failed swallow test so we will provide procalamine until he can pass JUANA RN 04/05/19 Pt seen and examined in the ICU Pt seen with O2 by nasal cannula Charts and labs reviewed pH=7.4, pCO2=36.8, pO2=85.3 JUANA RN Speech pathology needed prior to initiating meals 04/04/19 Pt seen and examined in ICU Pt was finally extubated and is now on BIPAP 40% He was sleepy and NAD Charts and labs reviewed JUANA RN 04/03/19 Pt was seen and examined in the ICU Vent on Spontaneous respirations (40% FiO2, 5 PEEP) JUANA RN Charts and labs reviewed Responded to voice commands with hand movements 04/02/19 Pt was seen and examined in the ICU Still on ventilation and sedated (Vent settings: AC/16/750/40% 5 PEEP) Attempt made to take patient off ventilation on 04/01, was unsuccessful Charts and labs reviewed JUANA RN CXR shows right basilar atelectasis, pulmonary interstitial edema 04/01/19 Pt was seen and examined in the ICU Pt is sedated and on ventilation (Vent settings: AC 16/750/40% 5 PEEP) Pulm attempted to take Pt off ventilation on 03/31, however Pt was unable to remain off vent after 20 min Chart and labs reviewed O2 saturation was 97% D/w RN and respiratory therapist 03/31/19 Pt was seen and examined in ICU Pt is sedated and on ventilation (Vent settings: AC/16/750/40% 5 PEEP) Chart and labs reviewed Responded to request to blink O2 saturation was 97% 03/26/19 Pt seen and examined in ICU Pt is sedated and on ventilation (Vent settings: AC/16/600/60% 10 PEEP) Pt heart rate was in 50s Chart and labs reviewed JUANA RN 03/25/19 Pt seen and examined in the ICU Pt is sedated and on ventilation (Vent settings: AC/16/600/65% 11 PEEP) Chart and labs reviewed JUANA RN 03/24/19 Pt seen and examined in the ICU Pt is on ventilation (Vent settings: AC/16/600/70% 13 PEEP) Chart and labs reviewed JUANA RN 03/23/19 Pt seen/examined in the ICU Pt is still on ventilation (Vent settings: AC/16/600/80% 13 PEEP) JUANA RN Chart and labs reviewed 03/22/19 Pt seen/examined in the ICU Pt is still on ventilation (Vent settings: AC/16/600/80% 13 PEEP) JUANA RN Chart and labs reviewed Chart Reviewed 03/21/19 Pt seen and examined in the ICU Pt still on ventilation (vent settings: AC/16/600/75% 13 PEEP) JUANA Pulm ARCHAEOLOGIST regarding starting patient on home medications for HTN 9�13�2019 Patient seen and examined in the ICU He is still ventilated AC/16/600/80% 14 PEEP 03/19/19 Pt seen and examined in ICU on vent (vent settings: AC/16/600/85% 14 PEEP) Pt responsive to voice In mitts for pt safety Pt sedated with versed, fentanyl, and precedex Rectal tube intact Fontana to BSD Has OG tube to LIS; ET tube placed JUANA RN 03/18/19 Pt seen and examined in ICU on vent (vent settings: AC/16/00/100% 14 PEEP) Pt sedated with versed, fentanyl, and precedex Rectal tube placed Fontana to BSD Has OG tube to LIS; ET tube placed JUANA RN Chart reviewed 03/17/19 Pt seen and examined in ICU on vent (AC/16/600/100 14peep) Pt has rectal tube and fontana to BSD Sedated with versed, fentanyl, and precedex Pt has ET tube and OG tube to LIS JUANA RN DW bilingual patient support caseworker Chart reviewed Vitals/I&O Vitals/I&O: Vital Signs Date Time Temp Pulse Resp B/P (MAP) Pulse Ox O2 Delivery O2 Flow Rate FiO2 04/06/19 11:50 98.5 89 24 133/85 98.5 04/06/19 10:00 100 BiPAP/CPAP 04/06/19 09:00 2.0 I & O 04/05/19 04/05/19 04/06/19 15:00 23:00 07:00 Intake Total 0 ml 0 ml Output Total 730 ml 730 ml 610 ml Balance -730 ml -730 ml -610 ml Physical Exam Physical Exam: GENERAL: Orally intubated/ sedated - lightly, HEENT: opened eyes Pupils equal, nml conj OGT/ETT NECK: Supple LUNGS: dec bs at bases HEART: S1 and S2, regular. ABDOMEN: Obese, soft, +BS : Fontana in place fecal tube in place EXTREMITIES: Trace edema - MITTS SKIN: Chronic stasis dermatitis on the lower extremity. NEUROLOGIC: Awake IVS; Old RIJ site clean. RUE - PICC clean General: Alert, Cooperative, No acute distress, Other (short neck , Mallampati 4 ON VENT) Heart: Regular rate (SR), Normal S1, Normal S2, Other (distante heart sounds) Lungs: Other (decrease bs) Abdomen: Normal bowel sounds, Soft, No tenderness, No hepatosplenomegaly, No masses Extremities: No clubbing, No cyanosis, No edema, Normal pulses, No tenderness/swelling Skin: No rashes, No breakdown, No significant lesion Labs Labs: Laboratory Tests Test 04/05/19 12:16 04/05/19 18:05 04/05/19 23:54 04/06/19 05:36 Glucose (Fingerstick) 90 mg/dL (70-99) 80 mg/dL (70-99) 87 mg/dL (70-99) 80 mg/dL (70-99) Test 04/06/19 05:40 White Blood Count 12.2 x10^3/uL (4.0-11.0) Red Blood Count 2.52 x10^6/uL (4.30-5.70) Hemoglobin 6.3 g/dL (13.0-17.5) Hematocrit 19.9 % (39.0-53.0) Mean Corpuscular Volume 79 fL (79-100) Mean Corpuscular Hemoglobin 25 pg (25-35) Mean Corpuscular Hemoglobin Concent 31 g/dL (31-37) Red Cell Distribution Width 20.7 % (11.5-14.5) Platelet Count 147 x10^3/uL (140-400) Neutrophils (%) (Auto) 77 % (31-73) Lymphocytes (%) (Auto) 13 % (24-48) Monocytes (%) (Auto) 8 % (0-9) Eosinophils (%) (Auto) 1 % (0-3) Basophils (%) (Auto) 1 % (0-3) Neutrophils # (Auto) 9.4 x10^3/uL (1.8-7.7) Lymphocytes # (Auto) 1.6 x10^3/uL (1.0-4.8) Monocytes # (Auto) 0.9 x10^3/uL (0.0-1.1) Eosinophils # (Auto) 0.1 x10^3/uL (0.0-0.7) Basophils # (Auto) 0.1 x10^3/uL (0.0-0.2) Sodium Level 145 mmol/L (136-145) Potassium Level 3.4 mmol/L (3.5-5.1) Chloride Level 110 mmol/L (98-107) Carbon Dioxide Level 26 mmol/L (21-32) Anion Gap 9 (6-14) Blood Urea Nitrogen 28 mg/dL (8-26) Creatinine 0.6 mg/dL (0.7-1.3) Estimated GFR (Cockcroft-Gault) 174.0 BUN/Creatinine Ratio 47 (6-20) Glucose Level 82 mg/dL (70-99) Calcium Level 8.6 mg/dL (8.5-10.1) Total Bilirubin 1.5 mg/dL (0.2-1.0) Aspartate Amino Transf (AST/SGOT) 23 U/L (15-37) Alanine Aminotransferase (ALT/SGPT) 43 U/L (16-63) Alkaline Phosphatase 65 U/L (46-116) Total Protein 5.3 g/dL (6.4-8.2) Albumin 2.2 g/dL (3.4-5.0) Albumin/Globulin Ratio 0.7 (1.0-1.7) Review of Systems Review of Systems: Denies pain Denies n/v Assessment and Plan Assessmemt and Plan Problems Medical Problems: (1) CHF exacerbation Status: Acute (2) COPD exacerbation Status: Acute (3) Hypoxia Status: Acute (4) NSTEMI (non-ST elevated myocardial infarction) Status: Acute (5) Respiratory failure Status: Acute Assessment Respiratory failure Obesity CHF COPD Hypoxia Plan ICU monitoring Procalamine Transfuse Discharge deposition pending (SNU/LTAC?) Moving to medical floor Continue O2 by nasal cannula Vaping cessation PT/OT Labs BIPAP/CPAP HS Bronchodilators Steroids Comment Review of Relevant I have reviewed the following items peter (where applicable) has been applied. TRICIA NAVA III DO Apr 06, 2019 12:00
[2019-04-06] MEDS: AMINO AC 3%/ELECTROLYTE/GLYCER 1,000 ML IV SCH (12:53)
--- NOTE | 2019-04-06 15:29 | PDOC ---
PROGRESS NOTES Assessment Assessment Myoclonic movements. Respiratory failure. ARDS. DM. HTN. COPD. SHARON. Morbid obesity. Vaping, Hx. RECOMMENDATIONS/PLAN: Continue ASA daily. Continue medical treatment. OT/PT. Weight reduction. Objective: Not observed myoclonic movement on 04/06/19. PAST MEDICAL HISTORY: Hypertension. Ascending thoracic aorta 4.4 cm. Chronic lymphedema. History of congestive heart failure. Chronic obstructive pulmonary disease. Obstructive sleep apnea. ALLERGIES: No known allergies to drugs. FAMILY HISTORY: Hypertension. SOCIAL HISTORY: He smokes less than a pack a day. He does not drink alcohol or use recreational drugs. PAST SURGICAL HISTORY: No major surgery recently. MEDICATIONS: Refer to [facility] REVIEW OF SYSTEMS: Constitutional: Morbid obesity. Head: No recent traumatic brain or head injury. Skin: No edema, or rash. Ear: No infection. Eyes: No vision loss, or diplopia. Nose: No bleeding or purulent discharges. Hearing: No hearing decrease. Neck: No injury. Cardiac: HTN Pulmonary: COPD. GI: No GI Ulcer, GI bleeding Urinary/genital: No dysuria, incontinence, urinary retention. Endocrine: Diabetes Mellitus. Skeletomuscular: No muscular atrophy. Neurological: see HP. Psychiatric: Denies drug use/abuse. Otherwise, not [id number] review of systems. PHYSICAL EXAMINATION: General appearance in subacute distress. HEENT: Normocephalic and nontraumatic. Eyes, nose, ears, and throat are unremarkable. Neck is supple. No lymphadenopathy. No Crepitus. Cardiovascular: S1, S2, regular rate and rhythm. Pulmonary: Mildly decreased to auscultation bilaterally. Abdomen: Bowel sounds are positive. Abdomen is soft, nontender, and nondistended. Extremities: Chronic skin changes as venous stasis in LE. NEUROLOGICAL EXAMINATION: Awake. Oriented partially o time, place and person. PERRL. EOMI. CN: no focal findings. Muscle tone: within normal. Muscle strength: 5- UE, 2-3 LE DTR: 0-1 Plantar reflex: Flexor response bilaterally Gait: not examined in bed. Sensory exam: no abnormal findings. No cerebellar signs elicited. F-T-N test not performed. Objective Objective Vital Signs Date Time Temp Pulse Resp B/P (MAP) Pulse Ox O2 Delivery O2 Flow Rate FiO2 04/06/19 12:25 95 Nasal Cannula 2.0 04/06/19 11:50 98.5 89 24 133/85 98.5 Intake and Output 04/06/19 07:00 Intake Total 0 ml Output Total 2070 ml Balance -2070 ml Intake Oral 0 ml Output Urine Total 2070 ml Vitals Signs Vitals VS - Last 72 Hours, by Label Date Time Temp Pulse Resp B/P (MAP) Pulse Ox O2 Delivery O2 Flow Rate FiO2 04/06/19 12:25 95 Nasal Cannula 2.0 04/06/19 11:50 98.5 89 24 133/85 98.5 04/06/19 11:00 100.2 92 24 123/77 (92) 95 Nasal Cannula 2.0 100.2 04/06/19 10:00 82 20 107/69 (82) 100 BiPAP/CPAP 04/06/19 09:00 86 24 112/52 (72) 93 Nasal Cannula 2.0 04/06/19 08:00 98.7 90 29 116/66 (83) 96 Nasal Cannula 2.0 98.7 04/06/19 08:00 Nasal Cannula 2.0 04/06/19 07:41 95 Nasal Cannula 2.0 04/06/19 07:00 94 10 111/61 (78) 96 Nasal Cannula 2.0 04/06/19 06:00 92 21 90/60 (70) 96 Nasal Cannula 2.0 04/06/19 05:00 94 18 98/63 (75) 97 Nasal Cannula 2.0 04/06/19 04:00 98.7 87 24 110/68 (82) 95 Nasal Cannula 2.0 98.7 04/06/19 04:00 Nasal Cannula 2.0 04/06/19 03:00 99 23 99/55 (70) 95 Room Air 04/06/19 02:01 90 16 91/60 (70) 98 Nasal Cannula 2.0 04/06/19 01:04 96 20 110/76 (87) 100 BiPAP/CPAP 04/06/19 00:00 96 BiPAP/CPAP 04/06/19 00:00 98.7 90 16 103/56 (72) 100 BiPAP/CPAP 98.7 04/06/19 00:00 Bi-pap 04/05/19 23:04 95 18 98/66 (77) 97 Nasal Cannula 2.0 04/05/19 22:00 89 30 112/72 (85) 96 Nasal Cannula 2.0 04/05/19 21:00 92 24 110/63 (79) 99 Nasal Cannula 2.0 04/05/19 20:50 96 Nasal Cannula 2.0 04/05/19 20:02 99.7 104 24 121/64 (83) 99 Nasal Cannula 2.0 99.7 04/05/19 20:00 Nasal Cannula 2.0 04/05/19 19:00 103 24 141/79 (99) 99 Nasal Cannula 2.0 04/05/19 18:00 96 18 147/70 (95) 100 High Flow Nasal Cannula 2.0 04/05/19 17:00 107 19 92/57 (69) 94 High Flow Nasal Cannula 2.0 04/05/19 16:44 99 Nasal Cannula 6.0 04/05/19 16:00 91 22 104/61 (75) 98 High Flow Nasal Cannula 2.0 04/05/19 16:00 Nasal Cannula 2.0 04/05/19 15:00 92 17 116/61 (79) 100 High Flow Nasal Cannula 4.0 04/05/19 14:00 92 13 107/66 (80) 100 High Flow Nasal Cannula 4.0 04/05/19 13:20 100 Nasal Cannula 6.0 04/05/19 13:00 90 12 88/66 (73) 99 High Flow Nasal Cannula 4.0 04/05/19 12:00 98.1 102 16 132/90 (104) 100 High Flow Nasal Cannula 6.0 98.1 04/05/19 12:00 Nasal Cannula 6.0 04/05/19 11:00 98 28 113/69 (84) 100 High Flow Nasal Cannula 6.0 04/05/19 10:00 97 28 115/75 (88) 95 High Flow Nasal Cannula 6.0 04/05/19 09:00 98 25 118/74 (89) 100 High Flow Nasal Cannula 6.0 04/05/19 09:00 98 118/74 04/05/19 09:00 98 118/74 04/05/19 08:40 98 Nasal Cannula 6.0 04/05/19 08:00 98.2 96 27 103/71 (82) 100 High Flow Nasal Cannula 98.2 04/05/19 08:00 Nasal Cannula 6.0 04/05/19 07:00 90 23 139/75 (96) 99 BiPAP/CPAP Laboratory Laboratory Laboratory Tests Test 04/05/19 18:05 04/05/19 23:54 04/06/19 05:36 04/06/19 05:40 Glucose (Fingerstick) 80 mg/dL (70-99) 87 mg/dL (70-99) 80 mg/dL (70-99) White Blood Count 12.2 x10^3/uL (4.0-11.0) Red Blood Count 2.52 x10^6/uL (4.30-5.70) Hemoglobin 6.3 g/dL (13.0-17.5) Hematocrit 19.9 % (39.0-53.0) Mean Corpuscular Volume 79 fL (79-100) Mean Corpuscular Hemoglobin 25 pg (25-35) Mean Corpuscular Hemoglobin Concent 31 g/dL (31-37) Red Cell Distribution Width 20.7 % (11.5-14.5) Platelet Count 147 x10^3/uL (140-400) Neutrophils (%) (Auto) 77 % (31-73) Lymphocytes (%) (Auto) 13 % (24-48) Monocytes (%) (Auto) 8 % (0-9) Eosinophils (%) (Auto) 1 % (0-3) Basophils (%) (Auto) 1 % (0-3) Neutrophils # (Auto) 9.4 x10^3/uL (1.8-7.7) Lymphocytes # (Auto) 1.6 x10^3/uL (1.0-4.8) Monocytes # (Auto) 0.9 x10^3/uL (0.0-1.1) Eosinophils # (Auto) 0.1 x10^3/uL (0.0-0.7) Basophils # (Auto) 0.1 x10^3/uL (0.0-0.2) Sodium Level 145 mmol/L (136-145) Potassium Level 3.4 mmol/L (3.5-5.1) Chloride Level 110 mmol/L (98-107) Carbon Dioxide Level 26 mmol/L (21-32) Anion Gap 9 (6-14) Blood Urea Nitrogen 28 mg/dL (8-26) Creatinine 0.6 mg/dL (0.7-1.3) Estimated GFR (Cockcroft-Gault) 174.0 BUN/Creatinine Ratio 47 (6-20) Glucose Level 82 mg/dL (70-99) Calcium Level 8.6 mg/dL (8.5-10.1) Total Bilirubin 1.5 mg/dL (0.2-1.0) Aspartate Amino Transf (AST/SGOT) 23 U/L (15-37) Alanine Aminotransferase (ALT/SGPT) 43 U/L (16-63) Alkaline Phosphatase 65 U/L (46-116) Total Protein 5.3 g/dL (6.4-8.2) Albumin 2.2 g/dL (3.4-5.0) Albumin/Globulin Ratio 0.7 (1.0-1.7) Test 04/06/19 11:58 Glucose (Fingerstick) 120 mg/dL (70-99) Microbiology 03/16/19 - Final, Complete 03/16/19 - Final, Complete 03/16/19 Gram Stain Evaluation - Final, Complete 03/16/19 Sputum Culture - Final, Complete 03/16/19 Sputum Result 1 - Final, Complete 03/16/19 Blood Culture - Final, Complete NO GROWTH AFTER 5 DAYS 03/09/19 Urine Culture - Final, Complete 03/09/19 Urine Culture Result 1 (WIL) - Final, Complete Medication Medications Current Medications Amino Acids/ Glycerin/ Electrolytes 1,000 ml @ 50 mls/hr Q20H IV Last administered on 04/06/19at 12:53; Start 04/06/19 at 12:15 Comment Review of Relevant I have reviewed the following items peter (where applicable) has been applied. MARLENA MCFARLANE MD Apr 06, 2019 15:29
[2019-04-07] MEDS: INSULIN LISPRO 300 UNITS/3 ML VIAL. SQ SCH ×4 (00:19→18:00)
[2019-04-07 02:53] VITALS: BP 155/87
[2019-04-07] MEDS: methylPREDNISolone SOD SUCC PF 40 MG/ML VIAL. IV SCH (05:47)
[2019-04-07] MEDS: HEPARIN for SUB-Q USE 5,000 UNIT/ML VIAL. SQ SCH (05:53)
[2019-04-07 06:08] LABS: BASO % 0 % (0-3); EOS # 0.1 x10^3/uL (0.0-0.7); EOS % 1 % (0-3); HEMATOCRIT 21.8 % (39.0-53.0); LYMPH # 1.9 x10^3/uL (1.0-4.8); LYMPH % 15 % (24-48); MEAN CORPUSCULAR HEMOGLOBIN 25 pg (25-35); MEAN CORPUSCULAR HGB CONC 32 g/dL (31-37); MEAN CORPUSCULAR VOLUME 79 fL (79-100); MONO # 0.9 x10^3/uL (0.0-1.1); MONO % 7 % (0-9); NEUT # 9.9 x10^3/uL (1.8-7.7); NEUT % 77 % (31-73); PLATELET COUNT 133 x10^3/uL (140-400); RED BLOOD COUNT 2.76 x10^6/uL (4.30-5.70); RED CELL DISTRIBUTION WIDTH 21.5 % (11.5-14.5); WHITE BLOOD COUNT 12.9 x10^3/uL (4.0-11.0)
[2019-04-07 06:17] LABS: ALBUMIN 2.4 g/dL (3.4-5.0); ALBUMIN/GLOBULIN RATIO 0.7 (1.0-1.7); CALCIUM 8.9 mg/dL (8.5-10.1); CREATININE 0.6 mg/dL (0.7-1.3); TOTAL PROTEIN 5.7 g/dL (6.4-8.2)
[2019-04-07 06:18] LABS: POTASSIUM 3.3 mmol/L (3.5-5.1)
[2019-04-07 07:00] VITALS: BP 169/84
[2019-04-07] MEDS: IPRATRPIUM/ALBUTEROL 0.5/2.5MG 3 ML NEBU. NEB SCH ×4 (07:53→19:30)
--- NOTE | 2019-04-07 09:42 | PDOC ---
PULMONARY PROGRESS NOTES Subjective on , talking very weak extubated saturday Vitals Vital Signs Date Time Temp Pulse Resp B/P (MAP) Pulse Ox O2 Delivery O2 Flow Rate FiO2 04/07/19 07:53 93 Room Air 04/07/19 07:00 98.6 86 20 169/84 (112) 98.6 04/07/19 02:53 2.0 General: Alert, No acute distress Lungs: Other (decrease bs) Cardiovascular: S1, S2 Abdomen: Soft, Non-tender, Other (obese) Neuro Exam: Alert Extremities: Other (lymphedema BLE ) Skin: Warm, Dry Labs Laboratory Tests Test 04/05/19 12:16 04/05/19 18:05 04/05/19 23:54 04/06/19 05:36 Glucose (Fingerstick) 90 mg/dL (70-99) 80 mg/dL (70-99) 87 mg/dL (70-99) 80 mg/dL (70-99) Test 04/06/19 05:40 04/06/19 11:58 04/06/19 17:01 04/07/19 00:19 White Blood Count 12.2 x10^3/uL (4.0-11.0) Red Blood Count 2.52 x10^6/uL (4.30-5.70) Hemoglobin 6.3 g/dL (13.0-17.5) Hematocrit 19.9 % (39.0-53.0) Mean Corpuscular Volume 79 fL (79-100) Mean Corpuscular Hemoglobin 25 pg (25-35) Mean Corpuscular Hemoglobin Concent 31 g/dL (31-37) Red Cell Distribution Width 20.7 % (11.5-14.5) Platelet Count 147 x10^3/uL (140-400) Neutrophils (%) (Auto) 77 % (31-73) Lymphocytes (%) (Auto) 13 % (24-48) Monocytes (%) (Auto) 8 % (0-9) Eosinophils (%) (Auto) 1 % (0-3) Basophils (%) (Auto) 1 % (0-3) Neutrophils # (Auto) 9.4 x10^3/uL (1.8-7.7) Lymphocytes # (Auto) 1.6 x10^3/uL (1.0-4.8) Monocytes # (Auto) 0.9 x10^3/uL (0.0-1.1) Eosinophils # (Auto) 0.1 x10^3/uL (0.0-0.7) Basophils # (Auto) 0.1 x10^3/uL (0.0-0.2) Sodium Level 145 mmol/L (136-145) Potassium Level 3.4 mmol/L (3.5-5.1) Chloride Level 110 mmol/L (98-107) Carbon Dioxide Level 26 mmol/L (21-32) Anion Gap 9 (6-14) Blood Urea Nitrogen 28 mg/dL (8-26) Creatinine 0.6 mg/dL (0.7-1.3) Estimated GFR (Cockcroft-Gault) 174.0 BUN/Creatinine Ratio 47 (6-20) Glucose Level 82 mg/dL (70-99) Calcium Level 8.6 mg/dL (8.5-10.1) Total Bilirubin 1.5 mg/dL (0.2-1.0) Aspartate Amino Transf (AST/SGOT) 23 U/L (15-37) Alanine Aminotransferase (ALT/SGPT) 43 U/L (16-63) Alkaline Phosphatase 65 U/L (46-116) Total Protein 5.3 g/dL (6.4-8.2) Albumin 2.2 g/dL (3.4-5.0) Albumin/Globulin Ratio 0.7 (1.0-1.7) Glucose (Fingerstick) 120 mg/dL (70-99) 117 mg/dL (70-99) 102 mg/dL (70-99) Test 04/07/19 05:45 04/07/19 05:51 04/07/19 07:31 White Blood Count 12.9 x10^3/uL (4.0-11.0) Red Blood Count 2.76 x10^6/uL (4.30-5.70) Hemoglobin 7.0 g/dL (13.0-17.5) Hematocrit 21.8 % (39.0-53.0) Mean Corpuscular Volume 79 fL (79-100) Mean Corpuscular Hemoglobin 25 pg (25-35) Mean Corpuscular Hemoglobin Concent 32 g/dL (31-37) Red Cell Distribution Width 21.5 % (11.5-14.5) Platelet Count 133 x10^3/uL (140-400) Neutrophils (%) (Auto) 77 % (31-73) Lymphocytes (%) (Auto) 15 % (24-48) Monocytes (%) (Auto) 7 % (0-9) Eosinophils (%) (Auto) 1 % (0-3) Basophils (%) (Auto) 0 % (0-3) Neutrophils # (Auto) 9.9 x10^3/uL (1.8-7.7) Lymphocytes # (Auto) 1.9 x10^3/uL (1.0-4.8) Monocytes # (Auto) 0.9 x10^3/uL (0.0-1.1) Eosinophils # (Auto) 0.1 x10^3/uL (0.0-0.7) Basophils # (Auto) 0.0 x10^3/uL (0.0-0.2) Sodium Level 143 mmol/L (136-145) Potassium Level 3.3 mmol/L (3.5-5.1) Chloride Level 108 mmol/L (98-107) Carbon Dioxide Level 26 mmol/L (21-32) Anion Gap 9 (6-14) Blood Urea Nitrogen 23 mg/dL (8-26) Creatinine 0.6 mg/dL (0.7-1.3) Estimated GFR (Cockcroft-Gault) 174.0 BUN/Creatinine Ratio 38 (6-20) Glucose Level 99 mg/dL (70-99) Calcium Level 8.9 mg/dL (8.5-10.1) Total Bilirubin 2.0 mg/dL (0.2-1.0) Aspartate Amino Transf (AST/SGOT) 25 U/L (15-37) Alanine Aminotransferase (ALT/SGPT) 45 U/L (16-63) Alkaline Phosphatase 70 U/L (46-116) Total Protein 5.7 g/dL (6.4-8.2) Albumin 2.4 g/dL (3.4-5.0) Albumin/Globulin Ratio 0.7 (1.0-1.7) Glucose (Fingerstick) 112 mg/dL (70-99) 119 mg/dL (70-99) Laboratory Tests Test 04/06/19 11:58 04/06/19 17:01 04/07/19 00:19 04/07/19 05:45 Glucose (Fingerstick) 120 mg/dL (70-99) 117 mg/dL (70-99) 102 mg/dL (70-99) White Blood Count 12.9 x10^3/uL (4.0-11.0) Red Blood Count 2.76 x10^6/uL (4.30-5.70) Hemoglobin 7.0 g/dL (13.0-17.5) Hematocrit 21.8 % (39.0-53.0) Mean Corpuscular Volume 79 fL (79-100) Mean Corpuscular Hemoglobin 25 pg (25-35) Mean Corpuscular Hemoglobin Concent 32 g/dL (31-37) Red Cell Distribution Width 21.5 % (11.5-14.5) Platelet Count 133 x10^3/uL (140-400) Neutrophils (%) (Auto) 77 % (31-73) Lymphocytes (%) (Auto) 15 % (24-48) Monocytes (%) (Auto) 7 % (0-9) Eosinophils (%) (Auto) 1 % (0-3) Basophils (%) (Auto) 0 % (0-3) Neutrophils # (Auto) 9.9 x10^3/uL (1.8-7.7) Lymphocytes # (Auto) 1.9 x10^3/uL (1.0-4.8) Monocytes # (Auto) 0.9 x10^3/uL (0.0-1.1) Eosinophils # (Auto) 0.1 x10^3/uL (0.0-0.7) Basophils # (Auto) 0.0 x10^3/uL (0.0-0.2) Sodium Level 143 mmol/L (136-145) Potassium Level 3.3 mmol/L (3.5-5.1) Chloride Level 108 mmol/L (98-107) Carbon Dioxide Level 26 mmol/L (21-32) Anion Gap 9 (6-14) Blood Urea Nitrogen 23 mg/dL (8-26) Creatinine 0.6 mg/dL (0.7-1.3) Estimated GFR (Cockcroft-Gault) 174.0 BUN/Creatinine Ratio 38 (6-20) Glucose Level 99 mg/dL (70-99) Calcium Level 8.9 mg/dL (8.5-10.1) Total Bilirubin 2.0 mg/dL (0.2-1.0) Aspartate Amino Transf (AST/SGOT) 25 U/L (15-37) Alanine Aminotransferase (ALT/SGPT) 45 U/L (16-63) Alkaline Phosphatase 70 U/L (46-116) Total Protein 5.7 g/dL (6.4-8.2) Albumin 2.4 g/dL (3.4-5.0) Albumin/Globulin Ratio 0.7 (1.0-1.7) Test 04/07/19 05:51 04/07/19 07:31 Glucose (Fingerstick) 112 mg/dL (70-99) 119 mg/dL (70-99) Medications Active Scripts Medications Dose Route/Sig Max Daily Dose Days Date Category Hydrochlorothiazide Tablet (Hydrochlorothiazide) 25 Mg Tablet 25 Mg PO DAILY 03/10/19 Reported Norvasc (Amlodipine Besylate) 5 Mg Tablet 1 Tab PO DAILY 01/12/19 Rx Lisinopril 5 Mg Tablet 1 Tab PO DAILY 01/12/19 Rx Comments CXR basal atelectasis , overall improved Impression . 1. Acute hypercarbic/hypoxic respiratory Failure due to ARDS , vaping related, extubated 04/03 ( > 3 weeks of intubation) 2. Suspected VAP , Rx , currently off ABX 3.Hypertension (controlled) 4. Pre-renal Azotemia, improved 5. Pulm. HTN PA pressure 55 Normal EF 6. HX. of tobacco use 7. Morbid obesity ] 8. Anemia, per PCP Plan . 1. bipap prn at night, off O2 2. steroids ,initiated 03/16 , dc today 3. off abx at this time 4. no further fever 5. Continue bronchodilators. 6. DC Heparin for DVT prophylaxis due to anemia 7 azotemia .resolved 8. pt ot discussed with RN aggressive PT WILL SEE MARIO KEARNS MD Apr 07, 2019 09:42
[2019-04-07] MEDS: ASPIRIN CHEWABLE 81 MG TABLET. PO SCH (10:45)
[2019-04-07] MEDS: LISINOPRIL 5 MG TABLET. PO SCH (10:45)
[2019-04-07] MEDS: amLODIPine BESYLATE 10 MG TABLET PO SCH (10:46)
[2019-04-07] MEDS: AMINO AC 3%/ELECTROLYTE/GLYCER 1,000 ML IV SCH (10:51)
[2019-04-07 11:00] VITALS: BP 150/87
--- NOTE | 2019-04-07 11:41 | PDOC ---
[facility] PROGRESS NOTE Chief Complaint Chief Complaint Acute Hypercapnic Respiratory Failure/ARDS due to vaping Pulmonary Edema Bilateral Lung Infiltrates Obstructive sleep apnea OSMAN Increased Troponin Morbid Obesity Pulmonary HTN Tobacco use History of Present Illness History of Present Illness 04/07/19 Pt seen and examined in Cardiovascular care unit Pt was sitting upright in chair Pt is breathing on his own Awake and oriented Pt had food on table, but reports having no appetite after being asked by nurse Charts and labs reviewed D/w RN 04/06/19 Pt seen and examined in ICU Pt's brother was giving him a haircut Pt is awake and oriented Charts and labs reviewed Pt failed swallow test so we will provide procalamine until he can pass JUANA RN 04/05/19 Pt seen and examined in the ICU Pt seen with O2 by nasal cannula Charts and labs reviewed pH=7.4, pCO2=36.8, pO2=85.3 JUANA ANNA Speech pathology needed prior to initiating meals 04/04/19 Pt seen and examined in ICU Pt was finally extubated and is now on BIPAP 40% He was sleepy and NAD Charts and labs reviewed JUANA RN 04/03/19 Pt was seen and examined in the ICU Vent on Spontaneous respirations (40% FiO2, 5 PEEP) JUANA RN Charts and labs reviewed Responded to voice commands with hand movements 04/02/19 Pt was seen and examined in the ICU Still on ventilation and sedated (Vent settings: AC/16/750/40% 5 PEEP) Attempt made to take patient off ventilation on 04/01, was unsuccessful Charts and labs reviewed JUANA RN CXR shows right basilar atelectasis, pulmonary interstitial edema 04/01/19 Pt was seen and examined in the ICU Pt is sedated and on ventilation (Vent settings: AC 16/750/40% 5 PEEP) Pulm attempted to take Pt off ventilation on 03/31, however Pt was unable to remain off vent after 20 min Chart and labs reviewed O2 saturation was 97% D/w RN and respiratory therapist 03/31/19 Pt was seen and examined in ICU Pt is sedated and on ventilation (Vent settings: AC/16/750/40% 5 PEEP) Chart and labs reviewed Responded to request to blink O2 saturation was 97% 03/26/19 Pt seen and examined in ICU Pt is sedated and on ventilation (Vent settings: AC/16/600/60% 10 PEEP) Pt heart rate was in 50s Chart and labs reviewed JUANA RN 03/25/19 Pt seen and examined in the ICU Pt is sedated and on ventilation (Vent settings: AC/16/600/65% 11 PEEP) Chart and labs reviewed JUANA RN 03/24/19 Pt seen and examined in the ICU Pt is on ventilation (Vent settings: AC/16/600/70% 13 PEEP) Chart and labs reviewed JUANA RN 03/23/19 Pt seen/examined in the ICU Pt is still on ventilation (Vent settings: AC/16/600/80% 13 PEEP) JUANA RN Chart and labs reviewed 03/22/19 Pt seen/examined in the ICU Pt is still on ventilation (Vent settings: AC/16/600/80% 13 PEEP) JUANA RN Chart and labs reviewed Chart Reviewed 03/21/19 Pt seen and examined in the ICU Pt still on ventilation (vent settings: AC/16/600/75% 13 PEEP) JUANA Pulm MANAGER CARDIAC CATH regarding starting patient on home medications for HTN 9�13�2019 Patient seen and examined in the ICU He is still ventilated AC/16/600/80% 14 PEEP 03/19/19 Pt seen and examined in ICU on vent (vent settings: AC/16/600/85% 14 PEEP) Pt responsive to voice In mitts for pt safety Pt sedated with versed, fentanyl, and precedex Rectal tube intact Fontana to BSD Has OG tube to LIS; ET tube placed JUANA RN 03/18/19 Pt seen and examined in ICU on vent (vent settings: AC/16/00/100% 14 PEEP) Pt sedated with versed, fentanyl, and precedex Rectal tube placed Fontana to BSD Has OG tube to LIS; ET tube placed JUANA RN Chart reviewed 03/17/19 Pt seen and examined in ICU on vent (AC/16/600/100 14peep) Pt has rectal tube and fontana to BSD Sedated with versed, fentanyl, and precedex Pt has ET tube and OG tube to LIS JUANA RN DW caser Chart reviewed Vitals/I&O Vitals/I&O: Vital Signs Date Time Temp Pulse Resp B/P (MAP) Pulse Ox O2 Delivery O2 Flow Rate FiO2 04/07/19 11:24 93 Room Air 04/07/19 10:46 86 169/84 04/07/19 07:00 98.6 20 98.6 04/07/19 02:53 2.0 I & O 04/06/19 04/06/19 04/07/19 14:59 22:59 06:59 Intake Total 450 ml 1329 ml Output Total 575 ml 225 ml 650 ml Balance -125 ml -225 ml 679 ml Physical Exam Physical Exam: GENERAL: Orally intubated/ sedated - lightly, HEENT: opened eyes Pupils equal, nml conj OGT/ETT NECK: Supple LUNGS: dec bs at bases HEART: S1 and S2, regular. ABDOMEN: Obese, soft, +BS : Fontana in place fecal tube in place EXTREMITIES: Trace edema - MITTS SKIN: Chronic stasis dermatitis on the lower extremity. NEUROLOGIC: Awake IVS; Old RIJ site clean. RUE - PICC clean General: Alert, Cooperative, No acute distress, Other (short neck , Mallampati 4 ON VENT) Heart: Regular rate (SR), Normal S1, Normal S2, Other (distante heart sounds) Lungs: Other (decrease bs) Abdomen: Normal bowel sounds, Soft, No tenderness, No hepatosplenomegaly, No masses Extremities: No clubbing, No cyanosis, No edema, Normal pulses, No tenderness/swelling Skin: No rashes, No breakdown, No significant lesion Labs Labs: Laboratory Tests Test 04/06/19 11:58 04/06/19 17:01 04/07/19 00:19 04/07/19 05:45 Glucose (Fingerstick) 120 mg/dL (70-99) 117 mg/dL (70-99) 102 mg/dL (70-99) White Blood Count 12.9 x10^3/uL (4.0-11.0) Red Blood Count 2.76 x10^6/uL (4.30-5.70) Hemoglobin 7.0 g/dL (13.0-17.5) Hematocrit 21.8 % (39.0-53.0) Mean Corpuscular Volume 79 fL (79-100) Mean Corpuscular Hemoglobin 25 pg (25-35) Mean Corpuscular Hemoglobin Concent 32 g/dL (31-37) Red Cell Distribution Width 21.5 % (11.5-14.5) Platelet Count 133 x10^3/uL (140-400) Neutrophils (%) (Auto) 77 % (31-73) Lymphocytes (%) (Auto) 15 % (24-48) Monocytes (%) (Auto) 7 % (0-9) Eosinophils (%) (Auto) 1 % (0-3) Basophils (%) (Auto) 0 % (0-3) Neutrophils # (Auto) 9.9 x10^3/uL (1.8-7.7) Lymphocytes # (Auto) 1.9 x10^3/uL (1.0-4.8) Monocytes # (Auto) 0.9 x10^3/uL (0.0-1.1) Eosinophils # (Auto) 0.1 x10^3/uL (0.0-0.7) Basophils # (Auto) 0.0 x10^3/uL (0.0-0.2) Sodium Level 143 mmol/L (136-145) Potassium Level 3.3 mmol/L (3.5-5.1) Chloride Level 108 mmol/L (98-107) Carbon Dioxide Level 26 mmol/L (21-32) Anion Gap 9 (6-14) Blood Urea Nitrogen 23 mg/dL (8-26) Creatinine 0.6 mg/dL (0.7-1.3) Estimated GFR (Cockcroft-Gault) 174.0 BUN/Creatinine Ratio 38 (6-20) Glucose Level 99 mg/dL (70-99) Calcium Level 8.9 mg/dL (8.5-10.1) Total Bilirubin 2.0 mg/dL (0.2-1.0) Aspartate Amino Transf (AST/SGOT) 25 U/L (15-37) Alanine Aminotransferase (ALT/SGPT) 45 U/L (16-63) Alkaline Phosphatase 70 U/L (46-116) Total Protein 5.7 g/dL (6.4-8.2) Albumin 2.4 g/dL (3.4-5.0) Albumin/Globulin Ratio 0.7 (1.0-1.7) Test 04/07/19 05:51 04/07/19 07:31 Glucose (Fingerstick) 112 mg/dL (70-99) 119 mg/dL (70-99) Review of Systems Review of Systems: Pt denies fever pt denies numbness and tingling Assessment and Plan Assessmemt and Plan Problems Medical Problems: (1) CHF exacerbation Status: Acute (2) COPD exacerbation Status: Acute (3) Hypoxia Status: Acute (4) NSTEMI (non-ST elevated myocardial infarction) Status: Acute (5) Respiratory failure Status: Acute Assessment Respiratory failure Obesity CHF COPD Hypoxia Plan Cardiac monitoring Procalamine Potassium 40meq Hope to encourage food Hope to remove rectal tube and fontana BSD Discharge deposition pending (SNU/LTAC?) Vaping cessation PT/OT Labs BIPAP/CPAP at night Bronchodilators Steroids DNR Comment Review of Relevant I have reviewed the following items peter (where applicable) has been applied. Medications: Current Medications Medications (Trade) Dose Ordered Sig/Stefanie Route PRN Reason Start Time Stop Time Status Last Admin Dose Admin Amino Acids/ Glycerin/ Electrolytes 1,000 ml @ 50 mls/hr Q20H IV 04/06/19 12:15 04/07/19 10:51 TRICIA NAVA III DO Apr 07, 2019 11:41
[2019-04-07] MEDS ORDERED: POTASSIUM CHLORIDE 20 MEQ TABLET.ER. PO ONE (11:45)
--- NOTE | 2019-04-07 13:26 | PDOC ---
PROGRESS NOTES Assessment Assessment Myoclonic movements. Respiratory failure. ARDS. DM. HTN. COPD. SHARON. Morbid obesity. Vaping, Hx. RECOMMENDATIONS/PLAN: Continue ASA daily. Continue medical treatment. OT/PT. Weight reduction. Objective: Not observed myoclonic movement on 04/07/19. PAST MEDICAL HISTORY: Hypertension. Ascending thoracic aorta 4.4 cm. Chronic lymphedema. History of congestive heart failure. Chronic obstructive pulmonary disease. Obstructive sleep apnea. ALLERGIES: No known allergies to drugs. FAMILY HISTORY: Hypertension. SOCIAL HISTORY: He smokes less than a pack a day. He does not drink alcohol or use recreational drugs. PAST SURGICAL HISTORY: No major surgery recently. MEDICATIONS: Refer to [facility] REVIEW OF SYSTEMS: Constitutional: Morbid obesity. Head: No recent traumatic brain or head injury. Skin: No edema, or rash. Ear: No infection. Eyes: No vision loss, or diplopia. Nose: No bleeding or purulent discharges. Hearing: No hearing decrease. Neck: No injury. Cardiac: HTN Pulmonary: COPD. GI: No GI Ulcer, GI bleeding Urinary/genital: No dysuria, incontinence, urinary retention. Endocrine: Diabetes Mellitus. Skeletomuscular: No muscular atrophy. Neurological: see HP. Psychiatric: Denies drug use/abuse. Otherwise, not [id number] review of systems. PHYSICAL EXAMINATION: General appearance in subacute distress. HEENT: Normocephalic and nontraumatic. Eyes, nose, ears, and throat are unremarkable. Neck is supple. No lymphadenopathy. No Crepitus. Cardiovascular: S1, S2, regular rate and rhythm. Pulmonary: Mildly decreased to auscultation bilaterally. Abdomen: Bowel sounds are positive. Abdomen is soft, nontender, and nondistended. Extremities: Chronic skin changes as venous stasis in LE. NEUROLOGICAL EXAMINATION: Awake. Oriented partially to time, place and person. PERRL. EOMI. CN: no focal findings. Muscle tone: within normal. Muscle strength: 4-5- UE, 2-3 LE DTR: 0-1 Plantar reflex: Flexor response bilaterally Gait: not examined in bed. Sensory exam: no abnormal findings. No cerebellar signs elicited. F-T-N test not performed. Objective Objective Vital Signs Date Time Temp Pulse Resp B/P (MAP) Pulse Ox O2 Delivery O2 Flow Rate FiO2 04/07/19 11:24 93 Room Air 04/07/19 11:00 98.8 82 22 150/87 (108) 98.8 04/07/19 02:53 2.0 Intake and Output 04/07/19 07:00 Intake Total 1779 ml Output Total 1450 ml Balance 329 ml Intake Oral 360 ml IV Total 969 ml Blood Product 300 ml Other 150 ml Output Urine Total 1450 ml Vitals Signs Vitals VS - Last 72 Hours, by Label Date Time Temp Pulse Resp B/P (MAP) Pulse Ox O2 Delivery O2 Flow Rate FiO2 04/07/19 11:24 93 Room Air 04/07/19 11:00 98.8 82 22 150/87 (108) 91 Room Air 98.8 04/07/19 10:46 86 169/84 04/07/19 10:45 86 169/84 04/07/19 07:53 93 Room Air 04/07/19 07:00 98.6 86 20 169/84 (112) 91 Room Air 98.6 04/07/19 03:05 97 BiPAP/CPAP 04/07/19 02:53 98.1 89 20 155/87 (109) 94 Nasal Cannula 2.0 98.1 04/06/19 22:36 98.2 91 22 146/72 (96) 96 Room Air 98.2 04/06/19 20:14 92 Room Air 04/06/19 19:30 Room Air 04/06/19 19:24 98.3 97 24 137/75 (95) 97 Room Air 98.3 04/06/19 17:55 97.5 87 24 150/85 (106) 94 Nasal Cannula 2.0 97.5 04/06/19 17:00 Nasal Cannula 2.0 04/06/19 16:06 98 Room Air 04/06/19 15:00 101 20 141/76 (97) 99 Nasal Cannula 2.0 04/06/19 12:25 95 Nasal Cannula 2.0 04/06/19 11:50 98.5 89 24 133/85 98.5 04/06/19 11:00 100.2 92 24 123/77 (92) 95 Nasal Cannula 2.0 100.2 04/06/19 10:00 82 20 107/69 (82) 100 BiPAP/CPAP 04/06/19 09:00 86 24 112/52 (72) 93 Nasal Cannula 2.0 04/06/19 08:00 98.7 90 29 116/66 (83) 96 Nasal Cannula 2.0 98.7 04/06/19 08:00 Nasal Cannula 2.0 04/06/19 07:41 95 Nasal Cannula 2.0 04/06/19 07:00 94 10 111/61 (78) 96 Nasal Cannula 2.0 Laboratory Laboratory Laboratory Tests Test 04/06/19 17:01 04/07/19 00:19 04/07/19 05:45 04/07/19 05:51 Glucose (Fingerstick) 117 mg/dL (70-99) 102 mg/dL (70-99) 112 mg/dL (70-99) White Blood Count 12.9 x10^3/uL (4.0-11.0) Red Blood Count 2.76 x10^6/uL (4.30-5.70) Hemoglobin 7.0 g/dL (13.0-17.5) Hematocrit 21.8 % (39.0-53.0) Mean Corpuscular Volume 79 fL (79-100) Mean Corpuscular Hemoglobin 25 pg (25-35) Mean Corpuscular Hemoglobin Concent 32 g/dL (31-37) Red Cell Distribution Width 21.5 % (11.5-14.5) Platelet Count 133 x10^3/uL (140-400) Neutrophils (%) (Auto) 77 % (31-73) Lymphocytes (%) (Auto) 15 % (24-48) Monocytes (%) (Auto) 7 % (0-9) Eosinophils (%) (Auto) 1 % (0-3) Basophils (%) (Auto) 0 % (0-3) Neutrophils # (Auto) 9.9 x10^3/uL (1.8-7.7) Lymphocytes # (Auto) 1.9 x10^3/uL (1.0-4.8) Monocytes # (Auto) 0.9 x10^3/uL (0.0-1.1) Eosinophils # (Auto) 0.1 x10^3/uL (0.0-0.7) Basophils # (Auto) 0.0 x10^3/uL (0.0-0.2) Sodium Level 143 mmol/L (136-145) Potassium Level 3.3 mmol/L (3.5-5.1) Chloride Level 108 mmol/L (98-107) Carbon Dioxide Level 26 mmol/L (21-32) Anion Gap 9 (6-14) Blood Urea Nitrogen 23 mg/dL (8-26) Creatinine 0.6 mg/dL (0.7-1.3) Estimated GFR (Cockcroft-Gault) 174.0 BUN/Creatinine Ratio 38 (6-20) Glucose Level 99 mg/dL (70-99) Calcium Level 8.9 mg/dL (8.5-10.1) Total Bilirubin 2.0 mg/dL (0.2-1.0) Aspartate Amino Transf (AST/SGOT) 25 U/L (15-37) Alanine Aminotransferase (ALT/SGPT) 45 U/L (16-63) Alkaline Phosphatase 70 U/L (46-116) Total Protein 5.7 g/dL (6.4-8.2) Albumin 2.4 g/dL (3.4-5.0) Albumin/Globulin Ratio 0.7 (1.0-1.7) Test 04/07/19 07:31 04/07/19 11:50 Glucose (Fingerstick) 119 mg/dL (70-99) 143 mg/dL (70-99) Microbiology 03/16/19 - Final, Complete 03/16/19 - Final, Complete 03/16/19 Gram Stain Evaluation - Final, Complete 03/16/19 Sputum Culture - Final, Complete 03/16/19 Sputum Result 1 - Final, Complete 03/16/19 Blood Culture - Final, Complete NO GROWTH AFTER 5 DAYS 03/09/19 Urine Culture - Final, Complete 03/09/19 Urine Culture Result 1 (WIL) - Final, Complete Medication Medications Current Medications Potassium Chloride (Klor-Con) 40 meq 1X ONCE PO ; Start 04/07/19 at 11:45; Stop 04/07/19 at 11:46; Status DC Comment Review of Relevant I have reviewed the following items peter (where applicable) has been applied. MARLENA MCFARLANE MD Apr 07, 2019 13:26
[2019-04-07 15:00] VITALS: BP 143/99
[2019-04-07] MEDS: AMMONIUM LACTATE 12% TOPICAL LOTION 226GM BOTTLE. TP SCH ×2 (17:40→21:34)
[2019-04-07 19:35] VITALS: BP 155/78
[2019-04-07 23:02] VITALS: BP 140/85
[2019-04-08] VITALS (10 sets, daily range): BP systolic 138–185; BP diastolic 67–104
[2019-04-08] MEDS: INSULIN LISPRO 300 UNITS/3 ML VIAL. SQ SCH ×5 (00:15→23:41)
[2019-04-08] MEDS: AMINO AC 3%/ELECTROLYTE/GLYCER 1,000 ML IV SCH ×2 (04:23→23:38)
[2019-04-08 04:48] LABS: BASO # 0.1 x10^3/uL (0.0-0.2); BASO % 1 % (0-3); EOS # 0.2 x10^3/uL (0.0-0.7); EOS % 2 % (0-3); HEMATOCRIT 21.3 % (39.0-53.0); LYMPH # 1.4 x10^3/uL (1.0-4.8); LYMPH % 10 % (24-48); MEAN CORPUSCULAR HEMOGLOBIN 26 pg (25-35); MEAN CORPUSCULAR HGB CONC 32 g/dL (31-37); MEAN CORPUSCULAR VOLUME 80 fL (79-100); MONO # 0.9 x10^3/uL (0.0-1.1); MONO % 7 % (0-9); NEUT # 10.8 x10^3/uL (1.8-7.7); NEUT % 81 % (31-73); PLATELET COUNT 128 x10^3/uL (140-400); RED BLOOD COUNT 2.65 x10^6/uL (4.30-5.70); RED CELL DISTRIBUTION WIDTH 21.4 % (11.5-14.5); WHITE BLOOD COUNT 13.4 x10^3/uL (4.0-11.0)
[2019-04-08 04:55] LABS: HEMOGLOBIN 6.8 g/dL (13.0-17.5)
[2019-04-08 05:01] LABS: ALBUMIN 2.4 g/dL (3.4-5.0); ALBUMIN/GLOBULIN RATIO 0.7 (1.0-1.7); CALCIUM 8.8 mg/dL (8.5-10.1); CREATININE 0.5 mg/dL (0.7-1.3); GFR 214.7; POTASSIUM 3.6 mmol/L (3.5-5.1); TOTAL BILIRUBIN 1.8 mg/dL (0.2-1.0); TOTAL PROTEIN 5.7 g/dL (6.4-8.2)
[2019-04-08] MEDS: IPRATRPIUM/ALBUTEROL 0.5/2.5MG 3 ML NEBU. NEB SCH ×4 (07:40→19:00)
[2019-04-08] MEDS: LISINOPRIL 5 MG TABLET. PO SCH (08:33)
[2019-04-08] MEDS: amLODIPine BESYLATE 10 MG TABLET PO SCH (08:33)
[2019-04-08] MEDS: ASPIRIN CHEWABLE 81 MG TABLET. PO SCH (08:34)
[2019-04-08] MEDS: AMMONIUM LACTATE 12% TOPICAL LOTION 226GM BOTTLE. TP SCH ×2 (08:39→21:55)
--- NOTE | 2019-04-08 10:22 | PDOC ---
[facility] PROGRESS NOTE Chief Complaint Chief Complaint Acute Hypercapnic Respiratory Failure/ARDS due to vaping Pulmonary Edema Bilateral Lung Infiltrates Obstructive sleep apnea OSMAN Increased Troponin Morbid Obesity Pulmonary HTN Tobacco use History of Present Illness History of Present Illness 04/08/19 Pt seen and examined at bedside Pt was resting in bed Was able to answer questions Breathing with O2 by nasal cannula Pulmonary recommends d/c heparin due to anemia JUANA RN Charts and labs reviewed 04/07/19 Pt seen and examined in Cardiovascular care unit Pt was sitting upright in chair Pt is breathing on his own Awake and oriented Pt had food on table, but reports having no appetite after being asked by nurse Charts and labs reviewed D/w RN 04/06/19 Pt seen and examined in ICU Pt's brother was giving him a haircut Pt is awake and oriented Charts and labs reviewed Pt failed swallow test so we will provide procalamine until he can pass JUANA RN 04/05/19 Pt seen and examined in the ICU Pt seen with O2 by nasal cannula Charts and labs reviewed pH=7.4, pCO2=36.8, pO2=85.3 JUANA ANNA Speech pathology needed prior to initiating meals 04/04/19 Pt seen and examined in ICU Pt was finally extubated and is now on BIPAP 40% He was sleepy and NAD Charts and labs reviewed JUANA RN 04/03/19 Pt was seen and examined in the ICU Vent on Spontaneous respirations (40% FiO2, 5 PEEP) JUANA RN Charts and labs reviewed Responded to voice commands with hand movements 04/02/19 Pt was seen and examined in the ICU Still on ventilation and sedated (Vent settings: AC/16/750/40% 5 PEEP) Attempt made to take patient off ventilation on 04/01, was unsuccessful Charts and labs reviewed JUANA RN CXR shows right basilar atelectasis, pulmonary interstitial edema 04/01/19 Pt was seen and examined in the ICU Pt is sedated and on ventilation (Vent settings: AC 16/750/40% 5 PEEP) Pulm attempted to take Pt off ventilation on 03/31, however Pt was unable to remain off vent after 20 min Chart and labs reviewed O2 saturation was 97% D/w RN and respiratory therapist 03/31/19 Pt was seen and examined in ICU Pt is sedated and on ventilation (Vent settings: AC/16/750/40% 5 PEEP) Chart and labs reviewed Responded to request to blink O2 saturation was 97% 03/26/19 Pt seen and examined in ICU Pt is sedated and on ventilation (Vent settings: AC/16/600/60% 10 PEEP) Pt heart rate was in 50s Chart and labs reviewed JUANA RN 03/25/19 Pt seen and examined in the ICU Pt is sedated and on ventilation (Vent settings: AC/16/600/65% 11 PEEP) Chart and labs reviewed JUANA RN 03/24/19 Pt seen and examined in the ICU Pt is on ventilation (Vent settings: AC/16/600/70% 13 PEEP) Chart and labs reviewed JUANA RN 03/23/19 Pt seen/examined in the ICU Pt is still on ventilation (Vent settings: AC/16/600/80% 13 PEEP) JUANA RN Chart and labs reviewed 03/22/19 Pt seen/examined in the ICU Pt is still on ventilation (Vent settings: AC/16/600/80% 13 PEEP) JUANA RN Chart and labs reviewed Chart Reviewed 03/21/19 Pt seen and examined in the ICU Pt still on ventilation (vent settings: AC/16/600/75% 13 PEEP) JUANA Pulm HEAVY MACHINERY OPERATOR regarding starting patient on home medications for HTN 9�13�2019 Patient seen and examined in the ICU He is still ventilated AC/16/600/80% 14 PEEP 03/19/19 Pt seen and examined in ICU on vent (vent settings: AC/16/600/85% 14 PEEP) Pt responsive to voice In mitts for pt safety Pt sedated with versed, fentanyl, and precedex Rectal tube intact Fontana to BSD Has OG tube to LIS; ET tube placed JUANA RN 03/18/19 Pt seen and examined in ICU on vent (vent settings: AC/16/00/100% 14 PEEP) Pt sedated with versed, fentanyl, and precedex Rectal tube placed Fontana to BSD Has OG tube to LIS; ET tube placed JUANA RN Chart reviewed 03/17/19 Pt seen and examined in ICU on vent (AC/16/600/100 14peep) Pt has rectal tube and fontana to BSD Sedated with versed, fentanyl, and precedex Pt has ET tube and OG tube to LIS JUANA RN DW child welfare caseworker Chart reviewed Vitals/I&O Vitals/I&O: Vital Signs Date Time Temp Pulse Resp B/P (MAP) Pulse Ox O2 Delivery O2 Flow Rate FiO2 04/08/19 09:45 99.3 94 20 144/67 99.3 04/08/19 07:40 92 Room Air 04/07/19 19:10 2.0 I & O 04/07/19 04/07/19 04/08/19 15:00 23:00 07:00 Intake Total 240 ml 680 ml 120 ml Output Total 650 ml 800 ml Balance 240 ml 30 ml -680 ml Physical Exam Physical Exam: GENERAL: Orally intubated/ sedated - lightly, HEENT: opened eyes Pupils equal, nml conj OGT/ETT NECK: Supple LUNGS: dec bs at bases HEART: S1 and S2, regular. ABDOMEN: Obese, soft, +BS : Fontana in place fecal tube in place EXTREMITIES: Trace edema - MITTS SKIN: Chronic stasis dermatitis on the lower extremity. NEUROLOGIC: Awake IVS; Old RIJ site clean. RUE - PICC clean General: Alert, Cooperative, No acute distress, Other (short neck , Mallampati 4 ON VENT) Heart: Regular rate (SR), Normal S1, Normal S2, Other (distante heart sounds) Lungs: Other (decrease bs) Abdomen: Normal bowel sounds, Soft, No tenderness, No hepatosplenomegaly, No masses Extremities: No clubbing, No cyanosis, No edema, Normal pulses, No tenderness/swelling Skin: No rashes, No breakdown, No significant lesion Labs Labs: Laboratory Tests Test 04/07/19 11:50 04/07/19 16:47 04/07/19 23:56 04/08/19 04:40 Glucose (Fingerstick) 143 mg/dL (70-99) 100 mg/dL (70-99) 80 mg/dL (70-99) White Blood Count 13.4 x10^3/uL (4.0-11.0) Red Blood Count 2.65 x10^6/uL (4.30-5.70) Hemoglobin 6.8 g/dL (13.0-17.5) Hematocrit 21.3 % (39.0-53.0) Mean Corpuscular Volume 80 fL (79-100) Mean Corpuscular Hemoglobin 26 pg (25-35) Mean Corpuscular Hemoglobin Concent 32 g/dL (31-37) Red Cell Distribution Width 21.4 % (11.5-14.5) Platelet Count 128 x10^3/uL (140-400) Neutrophils (%) (Auto) 81 % (31-73) Lymphocytes (%) (Auto) 10 % (24-48) Monocytes (%) (Auto) 7 % (0-9) Eosinophils (%) (Auto) 2 % (0-3) Basophils (%) (Auto) 1 % (0-3) Neutrophils # (Auto) 10.8 x10^3/uL (1.8-7.7) Lymphocytes # (Auto) 1.4 x10^3/uL (1.0-4.8) Monocytes # (Auto) 0.9 x10^3/uL (0.0-1.1) Eosinophils # (Auto) 0.2 x10^3/uL (0.0-0.7) Basophils # (Auto) 0.1 x10^3/uL (0.0-0.2) Sodium Level 142 mmol/L (136-145) Potassium Level 3.6 mmol/L (3.5-5.1) Chloride Level 107 mmol/L (98-107) Carbon Dioxide Level 25 mmol/L (21-32) Anion Gap 10 (6-14) Blood Urea Nitrogen 17 mg/dL (8-26) Creatinine 0.5 mg/dL (0.7-1.3) Estimated GFR (Cockcroft-Gault) 214.7 BUN/Creatinine Ratio 34 (6-20) Glucose Level 94 mg/dL (70-99) Calcium Level 8.8 mg/dL (8.5-10.1) Total Bilirubin 1.8 mg/dL (0.2-1.0) Aspartate Amino Transf (AST/SGOT) 22 U/L (15-37) Alanine Aminotransferase (ALT/SGPT) 43 U/L (16-63) Alkaline Phosphatase 75 U/L (46-116) Total Protein 5.7 g/dL (6.4-8.2) Albumin 2.4 g/dL (3.4-5.0) Albumin/Globulin Ratio 0.7 (1.0-1.7) Test 04/08/19 06:17 04/08/19 07:38 Glucose (Fingerstick) 103 mg/dL (70-99) 104 mg/dL (70-99) Review of Systems Review of Systems: No nausea, no vomiting No headache, no changes in vision Assessment and Plan Assessmemt and Plan Problems Medical Problems: (1) CHF exacerbation Status: Acute (2) COPD exacerbation Status: Acute (3) Hypoxia Status: Acute (4) NSTEMI (non-ST elevated myocardial infarction) Status: Acute (5) Respiratory failure Status: Acute Assessment ARDS due to vaping Pulmonary edema Pulmonary hypertension Obesity OSMAN CHF Plan BIPAP PRN at night Steroids Continue bronchodilators D/C heparin for DVT prophylaxis due to anemia Trend Hgb and Hct Continue ASA daily PT/OT Weight reduction Continue medical management SCD for DVT prophylaxis Transfuse Comment Review of Relevant I have reviewed the following items peter (where applicable) has been applied. Medications: Current Medications Medications (Trade) Dose Ordered Sig/Stefanie Route PRN Reason Start Time Stop Time Status Last Admin Dose Admin Potassium Chloride (Klor-Con) 40 meq 1X ONCE PO 04/07/19 11:45 04/07/19 11:46 DC 04/07/19 17:40 TRICIA NAVA III DO Apr 08, 2019 10:22
[2019-04-08] MEDS: ACETAMINOPHEN 500 MG TABLET PO PRN (12:07)
--- NOTE | 2019-04-08 15:22 | PDOC ---
PROGRESS NOTES Assessment Assessment Myoclonic movements. Respiratory failure. ARDS. DM. HTN. COPD. SHARON. Morbid obesity. Vaping. RECOMMENDATIONS/PLAN: Continue ASA daily. Continue medical treatment. OT/PT. Weight reduction. Objective: Not observed myoclonic movement on 04/07/19. PAST MEDICAL HISTORY: Hypertension. Ascending thoracic aorta 4.4 cm. Chronic lymphedema. History of congestive heart failure. Chronic obstructive pulmonary disease. Obstructive sleep apnea. ALLERGIES: No known allergies to drugs. FAMILY HISTORY: Hypertension. SOCIAL HISTORY: He smokes less than a pack a day. He does not drink alcohol or use recreational drugs. PAST SURGICAL HISTORY: No major surgery recently. MEDICATIONS: Refer to [facility] REVIEW OF SYSTEMS: Constitutional: Morbid obesity. Head: No recent traumatic brain or head injury. Skin: No edema, or rash. Ear: No infection. Eyes: No vision loss, or diplopia. Nose: No bleeding or purulent discharges. Hearing: No hearing decrease. Neck: No injury. Cardiac: HTN Pulmonary: COPD. GI: No GI Ulcer, GI bleeding Urinary/genital: No dysuria, incontinence, urinary retention. Endocrine: Diabetes Mellitus. Skeletomuscular: No muscular atrophy. Neurological: see HP. Psychiatric: Denies drug use/abuse. Otherwise, not [id number] review of systems. PHYSICAL EXAMINATION: General appearance in subacute distress. HEENT: Normocephalic and nontraumatic. Eyes, nose, ears, and throat are unremarkable. Neck is supple. No lymphadenopathy. No Crepitus. Cardiovascular: S1, S2, regular rate and rhythm. Pulmonary: Mildly decreased to auscultation bilaterally. Abdomen: Bowel sounds are positive. Abdomen is soft, nontender, and nondistended. Extremities: Chronic significant skin changes as venous stasis in LE. NEUROLOGICAL EXAMINATION: Drowsiness. Oriented partially to time, place and person. PERRL. EOMI. CN: no focal findings. Muscle tone: within normal. Muscle strength: 4-5- UE, 2-3 LE DTR: 0-1 Plantar reflex: Flexor response bilaterally Gait: not examined in bed. Sensory exam: no acute abnormal findings. No cerebellar signs elicited. F-T-N test not performed. Objective Objective Vital Signs Date Time Temp Pulse Resp B/P (MAP) Pulse Ox O2 Delivery O2 Flow Rate FiO2 04/08/19 14:23 98.7 91 20 145/77 (99) 99 Nasal Cannula 2.0 98.7 Intake and Output 04/08/19 07:00 Intake Total 1040 ml Output Total 1450 ml Balance -410 ml Intake Oral 540 ml IV Total 500 ml Output Urine Total 1450 ml Vitals Signs Vitals VS - Last 72 Hours, by Label Date Time Temp Pulse Resp B/P (MAP) Pulse Ox O2 Delivery O2 Flow Rate FiO2 04/08/19 14:23 98.7 91 20 145/77 (99) 99 Nasal Cannula 2.0 98.7 04/08/19 12:02 98.5 95 20 141/69 98.5 04/08/19 11:24 96 Nasal Cannula 2.0 04/08/19 10:46 99.3 93 18 148/70 99.3 04/08/19 10:34 99.5 92 20 138/71 (93) 98 Nasal Cannula 2.0 99.5 04/08/19 09:45 99.3 94 20 144/67 99.3 04/08/19 09:26 99.1 85 18 168/72 99.1 04/08/19 08:33 94 171/83 04/08/19 08:33 94 171/83 04/08/19 08:00 Nasal Cannula 2.0 04/08/19 08:00 2.0 04/08/19 07:40 92 Room Air 04/08/19 07:34 99.0 94 20 171/83 (112) 92 Room Air 99.0 04/08/19 03:00 98.5 91 20 144/76 (98) 95 Room Air 98.5 04/07/19 23:02 99.1 86 20 140/85 (103) 96 Room Air 99.1 04/07/19 19:35 98.1 92 20 155/78 (103) 93 Room Air 98.1 04/07/19 19:31 94 Room Air 04/07/19 19:10 Room Air 2.0 04/07/19 15:05 94 Room Air 04/07/19 15:00 97.9 88 20 143/99 (114) 90 Room Air 97.9 04/07/19 11:24 93 Room Air 04/07/19 11:00 98.8 82 22 150/87 (108) 91 Room Air 98.8 04/07/19 10:46 86 169/84 04/07/19 10:45 86 169/84 04/07/19 07:53 93 Room Air 04/07/19 07:30 2.0 04/07/19 07:30 Room Air 04/07/19 07:00 98.6 86 20 169/84 (112) 91 Room Air 98.6 Laboratory Laboratory Laboratory Tests Test 04/07/19 16:47 04/07/19 23:56 04/08/19 04:40 04/08/19 06:17 Glucose (Fingerstick) 100 mg/dL (70-99) 80 mg/dL (70-99) 103 mg/dL (70-99) White Blood Count 13.4 x10^3/uL (4.0-11.0) Red Blood Count 2.65 x10^6/uL (4.30-5.70) Hemoglobin 6.8 g/dL (13.0-17.5) Hematocrit 21.3 % (39.0-53.0) Mean Corpuscular Volume 80 fL (79-100) Mean Corpuscular Hemoglobin 26 pg (25-35) Mean Corpuscular Hemoglobin Concent 32 g/dL (31-37) Red Cell Distribution Width 21.4 % (11.5-14.5) Platelet Count 128 x10^3/uL (140-400) Neutrophils (%) (Auto) 81 % (31-73) Lymphocytes (%) (Auto) 10 % (24-48) Monocytes (%) (Auto) 7 % (0-9) Eosinophils (%) (Auto) 2 % (0-3) Basophils (%) (Auto) 1 % (0-3) Neutrophils # (Auto) 10.8 x10^3/uL (1.8-7.7) Lymphocytes # (Auto) 1.4 x10^3/uL (1.0-4.8) Monocytes # (Auto) 0.9 x10^3/uL (0.0-1.1) Eosinophils # (Auto) 0.2 x10^3/uL (0.0-0.7) Basophils # (Auto) 0.1 x10^3/uL (0.0-0.2) Sodium Level 142 mmol/L (136-145) Potassium Level 3.6 mmol/L (3.5-5.1) Chloride Level 107 mmol/L (98-107) Carbon Dioxide Level 25 mmol/L (21-32) Anion Gap 10 (6-14) Blood Urea Nitrogen 17 mg/dL (8-26) Creatinine 0.5 mg/dL (0.7-1.3) Estimated GFR (Cockcroft-Gault) 214.7 BUN/Creatinine Ratio 34 (6-20) Glucose Level 94 mg/dL (70-99) Calcium Level 8.8 mg/dL (8.5-10.1) Total Bilirubin 1.8 mg/dL (0.2-1.0) Aspartate Amino Transf (AST/SGOT) 22 U/L (15-37) Alanine Aminotransferase (ALT/SGPT) 43 U/L (16-63) Alkaline Phosphatase 75 U/L (46-116) Total Protein 5.7 g/dL (6.4-8.2) Albumin 2.4 g/dL (3.4-5.0) Albumin/Globulin Ratio 0.7 (1.0-1.7) Test 04/08/19 07:38 04/08/19 11:31 Glucose (Fingerstick) 104 mg/dL (70-99) 123 mg/dL (70-99) Microbiology 03/16/19 - Final, Complete 03/16/19 - Final, Complete 03/16/19 Gram Stain Evaluation - Final, Complete 03/16/19 Sputum Culture - Final, Complete 03/16/19 Sputum Result 1 - Final, Complete 03/16/19 Blood Culture - Final, Complete NO GROWTH AFTER 5 DAYS 03/09/19 Urine Culture - Final, Complete 03/09/19 Urine Culture Result 1 (WIL) - Final, Complete Comment Review of Relevant I have reviewed the following items peter (where applicable) has been applied. MARLENA MCFARLANE MD Apr 08, 2019 15:22
--- NOTE | 2019-04-08 15:26 | NUR ---
Wound care: Patient seen per wound care follow up of right lower leg. Wound is resolved at this time. Continue with Ammonium lactate moisturizer as directed. No other wounds noted upon complete head to toe assessment. Patient turned to left side using wedge. Patient on a bariatric P-500 bed at this time. Wound care will sign off, please re consult regarding any changes per wound care. Bed lowered and call light in reach.
[2019-04-08] MEDS: hydrALAZINE 20 MG/ML VIAL. IVP PRN (23:31)
[2019-04-09] VITALS (7 sets, daily range): BP systolic 131–161; BP diastolic 76–91
[2019-04-09] MEDS: INSULIN LISPRO 300 UNITS/3 ML VIAL. SQ SCH ×3 (05:39→18:00)
[2019-04-09 06:25] LABS: BASO # 0.1 x10^3/uL (0.0-0.2); BASO % 1 % (0-3); EOS # 0.4 x10^3/uL (0.0-0.7); EOS % 3 % (0-3); HEMATOCRIT 23.1 % (39.0-53.0); HEMOGLOBIN 7.7 g/dL (13.0-17.5); LYMPH # 1.4 x10^3/uL (1.0-4.8); LYMPH % 13 % (24-48); MEAN CORPUSCULAR HEMOGLOBIN 27 pg (25-35); MEAN CORPUSCULAR HGB CONC 33 g/dL (31-37); MEAN CORPUSCULAR VOLUME 81 fL (79-100); MONO # 0.7 x10^3/uL (0.0-1.1); MONO % 6 % (0-9); NEUT # 8.3 x10^3/uL (1.8-7.7); NEUT % 77 % (31-73); PLATELET COUNT 101 x10^3/uL (140-400); RED BLOOD COUNT 2.85 x10^6/uL (4.30-5.70); RED CELL DISTRIBUTION WIDTH 21.7 % (11.5-14.5); WHITE BLOOD COUNT 10.8 x10^3/uL (4.0-11.0)
[2019-04-09 06:36] LABS: ALBUMIN 2.3 g/dL (3.4-5.0); ALBUMIN/GLOBULIN RATIO 0.7 (1.0-1.7); CALCIUM 8.7 mg/dL (8.5-10.1); CREATININE 0.5 mg/dL (0.7-1.3); GFR 214.7; POTASSIUM 3.5 mmol/L (3.5-5.1); TOTAL BILIRUBIN 2.1 mg/dL (0.2-1.0); TOTAL PROTEIN 5.7 g/dL (6.4-8.2)
[2019-04-09] MEDS: IPRATRPIUM/ALBUTEROL 0.5/2.5MG 3 ML NEBU. NEB SCH ×4 (07:33→19:55)
[2019-04-09] MEDS: ASPIRIN CHEWABLE 81 MG TABLET. PO SCH (09:35)
[2019-04-09] MEDS: LISINOPRIL 5 MG TABLET. PO SCH (09:35)
[2019-04-09] MEDS: amLODIPine BESYLATE 10 MG TABLET PO SCH (09:36)
[2019-04-09] MEDS: AMMONIUM LACTATE 12% TOPICAL LOTION 226GM BOTTLE. TP SCH ×2 (09:38→21:43)
--- NOTE | 2019-04-09 11:45 | PDOC ---
[facility] PROGRESS NOTE Chief Complaint Chief Complaint Acute Hypercapnic Respiratory Failure/ARDS due to vaping Pulmonary Edema Bilateral Lung Infiltrates Obstructive sleep apnea OSMAN Increased Troponin Morbid Obesity Pulmonary HTN Tobacco use History of Present Illness History of Present Illness 04/09/19 Pt seen and examined at bedside Pt was resting in bed Breathing O2 by nasal cannula Recommended to take ASA daily by neuro Medical management continuing Still appears weak Charts and labs reviewed JUANA RN 04/08/19 Pt seen and examined at bedside Pt was resting in bed Was able to answer questions Breathing with O2 by nasal cannula Pulmonary recommends d/c heparin due to anemia JUANA RN Charts and labs reviewed 04/07/19 Pt seen and examined in Cardiovascular care unit Pt was sitting upright in chair Pt is breathing on his own Awake and oriented Pt had food on table, but reports having no appetite after being asked by nurse Charts and labs reviewed D/w RN 04/06/19 Pt seen and examined in ICU Pt's brother was giving him a haircut Pt is awake and oriented Charts and labs reviewed Pt failed swallow test so we will provide procalamine until he can pass JUANA ANNA 04/05/19 Pt seen and examined in the ICU Pt seen with O2 by nasal cannula Charts and labs reviewed pH=7.4, pCO2=36.8, pO2=85.3 JUANA ANNA Speech pathology needed prior to initiating meals 04/04/19 Pt seen and examined in ICU Pt was finally extubated and is now on BIPAP 40% He was sleepy and NAD Charts and labs reviewed JUANA RN 04/03/19 Pt was seen and examined in the ICU Vent on Spontaneous respirations (40% FiO2, 5 PEEP) JUANA RN Charts and labs reviewed Responded to voice commands with hand movements 04/02/19 Pt was seen and examined in the ICU Still on ventilation and sedated (Vent settings: AC/16/750/40% 5 PEEP) Attempt made to take patient off ventilation on 04/01, was unsuccessful Charts and labs reviewed JUANA RN CXR shows right basilar atelectasis, pulmonary interstitial edema 04/01/19 Pt was seen and examined in the ICU Pt is sedated and on ventilation (Vent settings: AC 16/750/40% 5 PEEP) Pulm attempted to take Pt off ventilation on 03/31, however Pt was unable to remain off vent after 20 min Chart and labs reviewed O2 saturation was 97% D/w RN and respiratory therapist 03/31/19 Pt was seen and examined in ICU Pt is sedated and on ventilation (Vent settings: AC/16/750/40% 5 PEEP) Chart and labs reviewed Responded to request to blink O2 saturation was 97% 03/26/19 Pt seen and examined in ICU Pt is sedated and on ventilation (Vent settings: AC/16/600/60% 10 PEEP) Pt heart rate was in 50s Chart and labs reviewed DW RN 03/25/19 Pt seen and examined in the ICU Pt is sedated and on ventilation (Vent settings: AC/16/600/65% 11 PEEP) Chart and labs reviewed DW RN 03/24/19 Pt seen and examined in the ICU Pt is on ventilation (Vent settings: AC/16/600/70% 13 PEEP) Chart and labs reviewed JUANA RN 03/23/19 Pt seen/examined in the ICU Pt is still on ventilation (Vent settings: AC/16/600/80% 13 PEEP) JUANA RN Chart and labs reviewed 03/22/19 Pt seen/examined in the ICU Pt is still on ventilation (Vent settings: AC/16/600/80% 13 PEEP) JUANA RN Chart and labs reviewed Chart Reviewed 03/21/19 Pt seen and examined in the ICU Pt still on ventilation (vent settings: AC/16/600/75% 13 PEEP) JUANA Pulm MANAGEMENT INSTRUCTOR regarding starting patient on home medications for HTN 9�13�2019 Patient seen and examined in the ICU He is still ventilated AC/16/600/80% 14 PEEP 03/19/19 Pt seen and examined in ICU on vent (vent settings: AC/16/600/85% 14 PEEP) Pt responsive to voice In mitts for pt safety Pt sedated with versed, fentanyl, and precedex Rectal tube intact Fontana to BSD Has OG tube to LIS; ET tube placed JUANA RN 03/18/19 Pt seen and examined in ICU on vent (vent settings: AC/16/00/100% 14 PEEP) Pt sedated with versed, fentanyl, and precedex Rectal tube placed Fontana to BSD Has OG tube to LIS; ET tube placed JUANA RN Chart reviewed 03/17/19 Pt seen and examined in ICU on vent (AC/16/600/100 14peep) Pt has rectal tube and fontana to BSD Sedated with versed, fentanyl, and precedex Pt has ET tube and OG tube to LIS JUANA RN DW pillowcase sewer Chart reviewed Vitals/I&O Vitals/I&O: Vital Signs Date Time Temp Pulse Resp B/P (MAP) Pulse Ox O2 Delivery O2 Flow Rate FiO2 04/09/19 11:37 95 Nasal Cannula 2.0 04/09/19 11:21 98.7 97 24 152/91 (111) 98.7 I & O 0 04/08/19 04/08/19 04/09/19 14:59 22:59 06:59 Intake Total 360 ml 240 ml Output Total 900 ml Balance 360 ml -660 ml Physical Exam Physical Exam: GENERAL: Orally intubated/ sedated - lightly, HEENT: opened eyes Pupils equal, nml conj OGT/ETT NECK: Supple LUNGS: dec bs at bases HEART: S1 and S2, regular. ABDOMEN: Obese, soft, +BS : Fontana in place fecal tube in place EXTREMITIES: Trace edema - MITTS SKIN: Chronic stasis dermatitis on the lower extremity. NEUROLOGIC: Awake IVS; Old RIJ site clean. RUE - PICC clean General: Alert, Oriented X3, Cooperative, No acute distress, Other (short neck , Mallampati 4 ON VENT) Heart: Regular rate (SR), Normal S1, Normal S2, Other (distante heart sounds) Lungs: Other (decrease bs) Abdomen: Normal bowel sounds, Soft, No tenderness, No hepatosplenomegaly, No masses Extremities: No clubbing, No cyanosis, No edema, Normal pulses, No tenderness/swelling Skin: No rashes, No breakdown, No significant lesion Labs Labs: Laboratory Tests Test 04/08/19 16:20 04/08/19 23:40 04/09/19 05:38 04/09/19 06:05 Glucose (Fingerstick) 103 mg/dL (70-99) 98 mg/dL (70-99) 98 mg/dL (70-99) White Blood Count 10.8 x10^3/uL (4.0-11.0) Red Blood Count 2.85 x10^6/uL (4.30-5.70) Hemoglobin 7.7 g/dL (13.0-17.5) Hematocrit 23.1 % (39.0-53.0) Mean Corpuscular Volume 81 fL (79-100) Mean Corpuscular Hemoglobin 27 pg (25-35) Mean Corpuscular Hemoglobin Concent 33 g/dL (31-37) Red Cell Distribution Width 21.7 % (11.5-14.5) Platelet Count 101 x10^3/uL (140-400) Neutrophils (%) (Auto) 77 % (31-73) Lymphocytes (%) (Auto) 13 % (24-48) Monocytes (%) (Auto) 6 % (0-9) Eosinophils (%) (Auto) 3 % (0-3) Basophils (%) (Auto) 1 % (0-3) Neutrophils # (Auto) 8.3 x10^3/uL (1.8-7.7) Lymphocytes # (Auto) 1.4 x10^3/uL (1.0-4.8) Monocytes # (Auto) 0.7 x10^3/uL (0.0-1.1) Eosinophils # (Auto) 0.4 x10^3/uL (0.0-0.7) Basophils # (Auto) 0.1 x10^3/uL (0.0-0.2) Sodium Level 139 mmol/L (136-145) Potassium Level 3.5 mmol/L (3.5-5.1) Chloride Level 106 mmol/L (98-107) Carbon Dioxide Level 25 mmol/L (21-32) Anion Gap 8 (6-14) Blood Urea Nitrogen 11 mg/dL (8-26) Creatinine 0.5 mg/dL (0.7-1.3) Estimated GFR (Cockcroft-Gault) 214.7 BUN/Creatinine Ratio 22 (6-20) Glucose Level 93 mg/dL (70-99) Calcium Level 8.7 mg/dL (8.5-10.1) Total Bilirubin 2.1 mg/dL (0.2-1.0) Aspartate Amino Transf (AST/SGOT) 17 U/L (15-37) Alanine Aminotransferase (ALT/SGPT) 40 U/L (16-63) Alkaline Phosphatase 71 U/L (46-116) Total Protein 5.7 g/dL (6.4-8.2) Albumin 2.3 g/dL (3.4-5.0) Albumin/Globulin Ratio 0.7 (1.0-1.7) Test 04/09/19 07:38 04/09/19 11:37 Glucose (Fingerstick) 98 mg/dL (70-99) 110 mg/dL (70-99) Review of Systems Review of Systems: No nausea, no vomiting No headache, no altered mental status Assessment and Plan Assessmemt and Plan Problems Medical Problems: (1) CHF exacerbation Status: Acute (2) COPD exacerbation Status: Acute (3) Hypoxia Status: Acute (4) NSTEMI (non-ST elevated myocardial infarction) Status: Acute (5) Respiratory failure Status: Acute Assessment ARDS secondary to vaping Respiratory failure CHF Obesity HTN Obesity Pulmonary edema Plan Continue medical management Improve PO intake Weight reduction PT/OT ASA daily Discharge disposition pending Comment Review of Relevant I have reviewed the following items peter (where applicable) has been applied. TRICIA NAVA III DO Apr 09, 2019 11:45
--- NOTE | 2019-04-09 13:01 | PDOC ---
PROGRESS NOTES Assessment Assessment Myoclonic movements. Respiratory failure. ARDS. DM. HTN. COPD. SHARON. Morbid obesity. Vaping. RECOMMENDATIONS/PLAN: Continue ASA daily. Continue medical treatment. OT/PT. Weight reduction. Objective: Not observed myoclonic movement on 04/09/19. PAST MEDICAL HISTORY: Hypertension. Ascending thoracic aorta 4.4 cm. Chronic lymphedema. History of congestive heart failure. Chronic obstructive pulmonary disease. Obstructive sleep apnea. ALLERGIES: No known allergies to drugs. FAMILY HISTORY: Hypertension. SOCIAL HISTORY: He smokes less than a pack a day. He does not drink alcohol or use recreational drugs. PAST SURGICAL HISTORY: No major surgery recently. MEDICATIONS: Refer to [facility] REVIEW OF SYSTEMS: Constitutional: Morbid obesity. Head: No recent traumatic brain or head injury. Skin: No edema, or rash. Ear: No infection. Eyes: No vision loss, or diplopia. Nose: No bleeding or purulent discharges. Hearing: No hearing decrease. Neck: No injury. Cardiac: HTN Pulmonary: COPD. GI: No GI Ulcer, GI bleeding Urinary/genital: No dysuria, incontinence, urinary retention. Endocrine: Diabetes Mellitus. Skeletomuscular: No muscular atrophy. Neurological: see HP. Psychiatric: Denies drug use/abuse. Otherwise, not -fctxs review of systems. PHYSICAL EXAMINATION: General appearance in subacute distress. HEENT: Normocephalic and nontraumatic. Eyes, nose, ears, and throat are unremarkable. Neck is supple. No lymphadenopathy. No Crepitus. Cardiovascular: S1, S2, regular rate and rhythm. Pulmonary: Mildly decreased to auscultation bilaterally. Abdomen: Bowel sounds are positive. Abdomen is soft, nontender, and nondistended. Extremities: Chronic significant skin changes as venous stasis in LE. NEUROLOGICAL EXAMINATION: Awake. Oriented partially to time, place and person. PERRL. EOMI. CN: no focal findings. Muscle tone: within normal. Muscle strength: 4-5- UE, 2-3 LE DTR: 0-1 Plantar reflex: Flexor response bilaterally Gait: not examined in bed. Sensory exam: no acute abnormal findings. No cerebellar signs elicited. F-T-N test not performed. Objective Objective Vital Signs Date Time Temp Pulse Resp B/P (MAP) Pulse Ox O2 Delivery O2 Flow Rate FiO2 04/09/19 11:37 95 Nasal Cannula 2.0 04/09/19 11:21 98.7 97 24 152/91 (111) 98.7 Intake and Output 04/09/19 07:00 Intake Total 600 ml Output Total 900 ml Balance -300 ml Intake Oral 600 ml Output Urine Total 900 ml Vitals Signs Vitals VS - Last 72 Hours, by Label Date Time Temp Pulse Resp B/P (MAP) Pulse Ox O2 Delivery O2 Flow Rate FiO2 04/09/19 11:37 95 Nasal Cannula 2.0 04/09/19 11:21 98.7 97 24 152/91 (111) 95 Nasal Cannula 2.0 98.7 04/09/19 09:36 93 152/81 04/09/19 09:35 93 152/81 04/09/19 08:00 2.0 04/09/19 08:00 Nasal Cannula 2.0 04/09/19 07:36 97 Nasal Cannula 2.0 04/09/19 07:00 98.5 93 24 152/81 (104) 94 Nasal Cannula 2.0 98.5 04/09/19 02:44 98.9 98 20 161/87 (111) 96 BiPAP/CPAP 98.9 04/09/19 00:50 97 155/86 (109) 04/09/19 00:05 100 BiPAP/CPAP 04/08/19 23:31 87 187/108 04/08/19 23:03 98.9 83 18 185/104 (131) 100 BiPAP/CPAP 98.9 04/08/19 20:25 Room Air 04/08/19 19:50 98.8 93 18 168/95 (119) 95 Room Air 98.8 04/08/19 19:00 94 Nasal Cannula 2.0 04/08/19 15:20 Nasal Cannula 2.0 04/08/19 14:23 98.7 91 20 145/77 (99) 99 Nasal Cannula 2.0 98.7 04/08/19 12:02 98.5 95 20 141/69 98.5 04/08/19 11:24 96 Nasal Cannula 2.0 04/08/19 10:46 99.3 93 18 148/70 99.3 04/08/19 10:34 99.5 92 20 138/71 (93) 98 Nasal Cannula 2.0 99.5 04/08/19 09:45 99.3 94 20 144/67 99.3 04/08/19 09:26 99.1 85 18 168/72 99.1 04/08/19 08:33 94 171/83 04/08/19 08:33 94 171/83 04/08/19 08:00 Nasal Cannula 2.0 04/08/19 08:00 2.0 04/08/19 07:40 92 Room Air 04/08/19 07:34 99.0 94 20 171/83 (112) 92 Room Air 99.0 Laboratory Laboratory Laboratory Tests Test 04/08/19 16:20 04/08/19 23:40 04/09/19 05:38 04/09/19 06:05 Glucose (Fingerstick) 103 mg/dL (70-99) 98 mg/dL (70-99) 98 mg/dL (70-99) White Blood Count 10.8 x10^3/uL (4.0-11.0) Red Blood Count 2.85 x10^6/uL (4.30-5.70) Hemoglobin 7.7 g/dL (13.0-17.5) Hematocrit 23.1 % (39.0-53.0) Mean Corpuscular Volume 81 fL (79-100) Mean Corpuscular Hemoglobin 27 pg (25-35) Mean Corpuscular Hemoglobin Concent 33 g/dL (31-37) Red Cell Distribution Width 21.7 % (11.5-14.5) Platelet Count 101 x10^3/uL (140-400) Neutrophils (%) (Auto) 77 % (31-73) Lymphocytes (%) (Auto) 13 % (24-48) Monocytes (%) (Auto) 6 % (0-9) Eosinophils (%) (Auto) 3 % (0-3) Basophils (%) (Auto) 1 % (0-3) Neutrophils # (Auto) 8.3 x10^3/uL (1.8-7.7) Lymphocytes # (Auto) 1.4 x10^3/uL (1.0-4.8) Monocytes # (Auto) 0.7 x10^3/uL (0.0-1.1) Eosinophils # (Auto) 0.4 x10^3/uL (0.0-0.7) Basophils # (Auto) 0.1 x10^3/uL (0.0-0.2) Sodium Level 139 mmol/L (136-145) Potassium Level 3.5 mmol/L (3.5-5.1) Chloride Level 106 mmol/L (98-107) Carbon Dioxide Level 25 mmol/L (21-32) Anion Gap 8 (6-14) Blood Urea Nitrogen 11 mg/dL (8-26) Creatinine 0.5 mg/dL (0.7-1.3) Estimated GFR (Cockcroft-Gault) 214.7 BUN/Creatinine Ratio 22 (6-20) Glucose Level 93 mg/dL (70-99) Calcium Level 8.7 mg/dL (8.5-10.1) Total Bilirubin 2.1 mg/dL (0.2-1.0) Aspartate Amino Transf (AST/SGOT) 17 U/L (15-37) Alanine Aminotransferase (ALT/SGPT) 40 U/L (16-63) Alkaline Phosphatase 71 U/L (46-116) Total Protein 5.7 g/dL (6.4-8.2) Albumin 2.3 g/dL (3.4-5.0) Albumin/Globulin Ratio 0.7 (1.0-1.7) Test 04/09/19 07:38 04/09/19 11:37 Glucose (Fingerstick) 98 mg/dL (70-99) 110 mg/dL (70-99) Microbiology 03/16/19 - Final, Complete 03/16/19 - Final, Complete 03/16/19 Gram Stain Evaluation - Final, Complete 03/16/19 Sputum Culture - Final, Complete 03/16/19 Sputum Result 1 - Final, Complete 03/16/19 Blood Culture - Final, Complete NO GROWTH AFTER 5 DAYS 03/09/19 Urine Culture - Final, Complete 03/09/19 Urine Culture Result 1 (WIL) - Final, Complete Comment Review of Relevant I have reviewed the following items peter (where applicable) has been applied. MARLENA MCFARLANE MD Apr 09, 2019 13:01
[2019-04-09] MEDS: AMINO AC 3%/ELECTROLYTE/GLYCER 1,000 ML IV SCH (21:42)
[2019-04-10] MEDS: INSULIN LISPRO 300 UNITS/3 ML VIAL. SQ SCH ×3 (00:06→08:02)
[2019-04-10 03:55] VITALS: BP 159/96
[2019-04-10 06:16] LABS: ALBUMIN 2.4 g/dL (3.4-5.0); ALBUMIN/GLOBULIN RATIO 0.7 (1.0-1.7); CALCIUM 8.5 mg/dL (8.5-10.1); CREATININE 0.5 mg/dL (0.7-1.3); GFR 214.7; POTASSIUM 3.5 mmol/L (3.5-5.1); TOTAL BILIRUBIN 1.9 mg/dL (0.2-1.0); TOTAL PROTEIN 5.8 g/dL (6.4-8.2)
[2019-04-10 07:08] VITALS: BP 170/91
[2019-04-10] MEDS: IPRATRPIUM/ALBUTEROL 0.5/2.5MG 3 ML NEBU. NEB SCH ×4 (07:21→19:51)
[2019-04-10] MEDS: amLODIPine BESYLATE 10 MG TABLET PO SCH (09:51)
[2019-04-10] MEDS: LISINOPRIL 5 MG TABLET. PO SCH (09:51)
[2019-04-10] MEDS: ASPIRIN CHEWABLE 81 MG TABLET. PO SCH (09:51)
[2019-04-10] MEDS: AMMONIUM LACTATE 12% TOPICAL LOTION 226GM BOTTLE. TP SCH ×2 (09:52→22:11)
[2019-04-10 10:13] VITALS: BP 137/81
--- NOTE | 2019-04-10 11:35 | PDOC ---
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 Increased Troponin Morbid Obesity Pulmonary HTN Tobacco use History of Present Illness History of Present Illness 04/10/19 Pt seen and examined, he is OOB to chair, feeling a litter better still has urinary cath, feels better after breathing treatments he has been playing [place], getting better, cant walk more than 10 feet, Recommended to take ASA daily by neuro Vitals Vitals Vital Signs Date Time Temp Pulse Resp B/P (MAP) Pulse Ox O2 Delivery O2 Flow Rate FiO2 04/10/19 11:27 98 Nasal Cannula 2.0 04/10/19 10:13 98.5 92 22 137/81 (99) 98.5 Physical Exam Physical Exam GENERAL: Orally intubated/ sedated - lightly, HEENT: opened eyes Pupils equal, nml conj OGT/ETT NECK: Supple LUNGS: dec bs at bases HEART: S1 and S2, regular. ABDOMEN: Obese, soft, +BS : Ramos in place fecal tube in place EXTREMITIES: Trace edema - MITTS SKIN: Chronic stasis dermatitis on the lower extremity. NEUROLOGIC: Awake IVS; Old RIJ site clean. RUE - PICC clean General: Alert, Oriented X3, Cooperative, No acute distress, Other (short neck , Mallampati 4 ON VENT) Heart: Regular rate (SR), Normal S1, Normal S2, Other (distante heart sounds) Lungs: Other (decrease bs) Abdomen: Normal bowel sounds, Soft, No tenderness, No hepatosplenomegaly, No masses Extremities: No clubbing, No cyanosis, No edema, Normal pulses, No tenderness/swelling Skin: No rashes, No breakdown, No significant lesion Labs LABS Laboratory Tests Test 04/09/19 11:37 04/09/19 16:56 04/10/19 00:01 04/10/19 05:45 Glucose (Fingerstick) 110 mg/dL (70-99) 111 mg/dL (70-99) 92 mg/dL (70-99) Sodium Level 137 mmol/L (136-145) Potassium Level 3.5 mmol/L (3.5-5.1) Chloride Level 104 mmol/L (98-107) Carbon Dioxide Level 25 mmol/L (21-32) Anion Gap 8 (6-14) Blood Urea Nitrogen 11 mg/dL (8-26) Creatinine 0.5 mg/dL (0.7-1.3) Estimated GFR (Cockcroft-Gault) 214.7 BUN/Creatinine Ratio 22 (6-20) Glucose Level 99 mg/dL (70-99) Calcium Level 8.5 mg/dL (8.5-10.1) Total Bilirubin 1.9 mg/dL (0.2-1.0) Aspartate Amino Transf (AST/SGOT) 16 U/L (15-37) Alanine Aminotransferase (ALT/SGPT) 37 U/L (16-63) Alkaline Phosphatase 88 U/L (46-116) Total Protein 5.8 g/dL (6.4-8.2) Albumin 2.4 g/dL (3.4-5.0) Albumin/Globulin Ratio 0.7 (1.0-1.7) Test 04/10/19 06:10 04/10/19 07:40 04/10/19 11:28 Glucose (Fingerstick) 105 mg/dL (70-99) 104 mg/dL (70-99) 110 mg/dL (70-99) Assessment and Plan Assessmemt and Plan Problems Medical Problems: (1) CHF exacerbation Status: Acute (2) COPD exacerbation Status: Acute (3) Hypoxia Status: Acute (4) NSTEMI (non-ST elevated myocardial infarction) Status: Acute (5) Respiratory failure Status: Acute Comment Review of Relevant I have reviewed the following items peter (where applicable) has been applied. Labs Laboratory Tests Test 04/08/19 16:20 04/08/19 23:40 04/09/19 05:38 04/09/19 06:05 Glucose (Fingerstick) 103 mg/dL (70-99) 98 mg/dL (70-99) 98 mg/dL (70-99) White Blood Count 10.8 x10^3/uL (4.0-11.0) Red Blood Count 2.85 x10^6/uL (4.30-5.70) Hemoglobin 7.7 g/dL (13.0-17.5) Hematocrit 23.1 % (39.0-53.0) Mean Corpuscular Volume 81 fL (79-100) Mean Corpuscular Hemoglobin 27 pg (25-35) Mean Corpuscular Hemoglobin Concent 33 g/dL (31-37) Red Cell Distribution Width 21.7 % (11.5-14.5) Platelet Count 101 x10^3/uL (140-400) Neutrophils (%) (Auto) 77 % (31-73) Lymphocytes (%) (Auto) 13 % (24-48) Monocytes (%) (Auto) 6 % (0-9) Eosinophils (%) (Auto) 3 % (0-3) Basophils (%) (Auto) 1 % (0-3) Neutrophils # (Auto) 8.3 x10^3/uL (1.8-7.7) Lymphocytes # (Auto) 1.4 x10^3/uL (1.0-4.8) Monocytes # (Auto) 0.7 x10^3/uL (0.0-1.1) Eosinophils # (Auto) 0.4 x10^3/uL (0.0-0.7) Basophils # (Auto) 0.1 x10^3/uL (0.0-0.2) Sodium Level 139 mmol/L (136-145) Potassium Level 3.5 mmol/L (3.5-5.1) Chloride Level 106 mmol/L (98-107) Carbon Dioxide Level 25 mmol/L (21-32) Anion Gap 8 (6-14) Blood Urea Nitrogen 11 mg/dL (8-26) Creatinine 0.5 mg/dL (0.7-1.3) Estimated GFR (Cockcroft-Gault) 214.7 BUN/Creatinine Ratio 22 (6-20) Glucose Level 93 mg/dL (70-99) Calcium Level 8.7 mg/dL (8.5-10.1) Total Bilirubin 2.1 mg/dL (0.2-1.0) Aspartate Amino Transf (AST/SGOT) 17 U/L (15-37) Alanine Aminotransferase (ALT/SGPT) 40 U/L (16-63) Alkaline Phosphatase 71 U/L (46-116) Total Protein 5.7 g/dL (6.4-8.2) Albumin 2.3 g/dL (3.4-5.0) Albumin/Globulin Ratio 0.7 (1.0-1.7) Test 04/09/19 07:38 04/09/19 11:37 04/09/19 16:56 04/10/19 00:01 Glucose (Fingerstick) 98 mg/dL (70-99) 110 mg/dL (70-99) 111 mg/dL (70-99) 92 mg/dL (70-99) Test 04/10/19 05:45 04/10/19 06:10 04/10/19 07:40 04/10/19 11:28 Sodium Level 137 mmol/L (136-145) Potassium Level 3.5 mmol/L (3.5-5.1) Chloride Level 104 mmol/L (98-107) Carbon Dioxide Level 25 mmol/L (21-32) Anion Gap 8 (6-14) Blood Urea Nitrogen 11 mg/dL (8-26) Creatinine 0.5 mg/dL (0.7-1.3) Estimated GFR (Cockcroft-Gault) 214.7 BUN/Creatinine Ratio 22 (6-20) Glucose Level 99 mg/dL (70-99) Calcium Level 8.5 mg/dL (8.5-10.1) Total Bilirubin 1.9 mg/dL (0.2-1.0) Aspartate Amino Transf (AST/SGOT) 16 U/L (15-37) Alanine Aminotransferase (ALT/SGPT) 37 U/L (16-63) Alkaline Phosphatase 88 U/L (46-116) Total Protein 5.8 g/dL (6.4-8.2) Albumin 2.4 g/dL (3.4-5.0) Albumin/Globulin Ratio 0.7 (1.0-1.7) Glucose (Fingerstick) 105 mg/dL (70-99) 104 mg/dL (70-99) 110 mg/dL (70-99) Laboratory Tests Test 04/09/19 11:37 04/09/19 16:56 04/10/19 00:01 04/10/19 05:45 Glucose (Fingerstick) 110 mg/dL (70-99) 111 mg/dL (70-99) 92 mg/dL (70-99) Sodium Level 137 mmol/L (136-145) Potassium Level 3.5 mmol/L (3.5-5.1) Chloride Level 104 mmol/L (98-107) Carbon Dioxide Level 25 mmol/L (21-32) Anion Gap 8 (6-14) Blood Urea Nitrogen 11 mg/dL (8-26) Creatinine 0.5 mg/dL (0.7-1.3) Estimated GFR (Cockcroft-Gault) 214.7 BUN/Creatinine Ratio 22 (6-20) Glucose Level 99 mg/dL (70-99) Calcium Level 8.5 mg/dL (8.5-10.1) Total Bilirubin 1.9 mg/dL (0.2-1.0) Aspartate Amino Transf (AST/SGOT) 16 U/L (15-37) Alanine Aminotransferase (ALT/SGPT) 37 U/L (16-63) Alkaline Phosphatase 88 U/L (46-116) Total Protein 5.8 g/dL (6.4-8.2) Albumin 2.4 g/dL (3.4-5.0) Albumin/Globulin Ratio 0.7 (1.0-1.7) Test 04/10/19 06:10 04/10/19 07:40 04/10/19 11:28 Glucose (Fingerstick) 105 mg/dL (70-99) 104 mg/dL (70-99) 110 mg/dL (70-99) Microbiology 03/16/19 - Final, Complete 03/16/19 - Final, Complete 03/16/19 Gram Stain Evaluation - Final, Complete 03/16/19 Sputum Culture - Final, Complete 03/16/19 Sputum Result 1 - Final, Complete 03/16/19 Blood Culture - Final, Complete NO GROWTH AFTER 5 DAYS 03/09/19 Urine Culture - Final, Complete 03/09/19 Urine Culture Result 1 (WIL) - Final, Complete Medications Current Medications Albuterol/ Ipratropium (Duoneb) 3 ml 1X ONCE NEB Last administered on 03/09/19at 21:21; Start 03/09/19 at 21:30; Stop 03/09/19 at 21:31; Status DC Dexamethasone Sodium Phosphate (Decadron) 10 mg 1X ONCE IV Last administered on 03/09/19at 22:29; Start 03/09/19 at 22:00; Stop 03/09/19 at 22:01; Status DC Propofol 100 ml @ 0 mls/hr CONT PRN IV SEE PROTOCOL Last administered on 03/10/19at 07:19; Start 03/09/19 at 22:30; Stop 03/10/19 at 07:28; Status DC Fentanyl Citrate (Fentanyl 2ml Vial) 50 mcg PRN Q1HR PRN IV SEE COMMENTS; Start 03/09/19 at 22:30; Stop 03/10/19 at 07:28; Status DC Chlorhexidine Gluconate (Peridex) 15 ml BID MM Last administered on 04/05/19at 08:06; Start 03/10/19 at 09:00; Stop 04/05/19 at 11:08; Status DC Famotidine (Pepcid Vial) 20 mg BID IVP Last administered on 04/06/19at 21:27; Start 03/10/19 at 09:00; Stop 04/07/19 at 09:45; Status DC Propofol 50 ml @ As Directed STK-MED ONCE IV ; Start 03/09/19 at 22:28; Stop 03/09/19 at 22:28; Status DC Albuterol/ Ipratropium (Duoneb) 3 ml 1X ONCE NEB Last administered on 03/10/19at 02:04; Start 03/09/19 at 23:00; Stop 03/09/19 at 23:01; Status DC Albuterol/ Ipratropium (Duoneb) 3 ml 1X ONCE NEB Last administered on 03/10/19at 02:04; Start 03/09/19 at 23:00; Stop 03/09/19 at 23:01; Status DC Fentanyl Citrate (Fentanyl 2ml Vial) 100 mcg 1X ONCE IV Last administered on 03/09/19at 23:31; Start 03/09/19 at 23:30; Stop 03/09/19 at 23:31; Status DC Bumetanide (Bumex) 1 mg 1X ONCE IV Last administered on 03/10/19at 00:21; Start 03/10/19 at 00:00; Stop 03/10/19 at 00:01; Status DC Heparin Sodium (Porcine) (Heparin Sodium) 4,000 unit 1X ONCE IV Last administered on 03/10/19at 00:31; Start 03/10/19 at 00:00; Stop 03/10/19 at 00:01; Status DC Heparin Sodium/ Dextrose 500 ml @ 0 mls/hr CONT PRN IV PER PROTOCOL Last administered on 03/10/19at 23:34; Start 03/09/19 at 23:45; Stop 03/11/19 at 16:13; Status DC Heparin Sodium (Porcine) (Heparin Sodium) 5,500 unit PRN Q6HRS PRN IV FOR UFH LEVEL LESS THAN 0.2 Last administered on 03/11/19at 00:57; Start 03/09/19 at 23:45; Stop 03/11/19 at 16:13; Status DC Aspirin (Aspirin Rectal Supp) 300 mg 1X ONCE CA Last administered on 03/10/19at 03:42; Start 03/10/19 at 00:00; Stop 03/10/19 at 00:01; Status DC Propofol 50 ml @ As Directed STK-MED ONCE IV ; Start 03/09/19 at 23:38; Stop 03/09/19 at 23:38; Status DC Propofol 50 ml @ As Directed STK-MED ONCE IV ; Start 03/09/19 at 23:38; Stop 03/09/19 at 23:38; Status DC Piperacillin Sod/ Tazobactam Sod 4.5 gm/Sodium Chloride 100 ml @ 200 mls/hr 1X ONCE IV Last administered on 03/10/19at 05:19; Start 03/10/19 at 00:30; Stop 03/10/19 at 00:59; Status DC Propofol 50 ml @ As Directed STK-MED ONCE IV ; Start 03/10/19 at 00:51; Stop 03/10/19 at 00:51; Status DC Propofol 50 ml @ As Directed STK-MED ONCE IV ; Start 03/10/19 at 01:14; Stop 03/10/19 at 01:15; Status DC Fentanyl Citrate (Fentanyl 2ml Vial) 100 mcg 1X ONCE IV Last administered on 03/10/19at 01:26; Start 03/10/19 at 01:45; Stop 03/10/19 at 01:46; Status DC Clonidine HCl (Catapres) 0.1 mg 1X ONCE PO ; Start 03/10/19 at 01:30; Stop 03/10/19 at 01:34; Status DC Midazolam HCl (Versed) 5 mg 1X ONCE IV Last administered on 03/10/19at 01:28; Start 03/10/19 at 01:30; Stop 03/10/19 at 01:34; Status DC Propofol 50 ml @ As Directed STK-MED ONCE IV ; Start 03/10/19 at 02:08; Stop 03/10/19 at 02:09; Status DC Propofol 50 ml @ As Directed STK-MED ONCE IV ; Start 03/10/19 at 02:36; Stop 03/10/19 at 02:36; Status DC Rocuronium [place] (Zemuron) 50 mg STK-MED ONCE .ROUTE ; Start 03/10/19 at 05:15; Stop 03/10/19 at 05:15; Status DC Etomidate (Amidate) 20 mg STK-MED ONCE IV ; Start 03/10/19 at 05:15; Stop 03/10/19 at 05:16; Status DC Fentanyl Citrate 30 ml @ 0 mls/hr CONT PRN IV SEE PROTOCOL Last administered on 04/03/19at 09:05; Start 03/10/19 at 07:30; Stop 04/07/19 at 09:44; Status DC Propofol 100 ml @ 0 mls/hr CONT PRN IV SEE PROTOCOL Last administered on 04/02/19at 15:10; Start 03/10/19 at 07:30; Stop 04/07/19 at 09:44; Status DC Fentanyl Citrate (Fentanyl 2ml Vial) 25 mcg PRN Q1HR PRN IV SEE COMMENTS; Start 03/10/19 at 07:30; Stop 04/07/19 at 09:44; Status DC Fentanyl Citrate (Fentanyl 2ml Vial) 50 mcg PRN Q1HR PRN IV SEE COMMENTS; S tart 03/10/19 at 07:30; Stop 04/07/19 at 09:45; Status DC Artificial Tears (Artificial Tears) 1 drop PRN Q1HR PRN OU DRY EYE, 1ST CHOICE Last administered on 03/13/19at 13:32; Start 03/10/19 at 07:30; Stop 04/07/19 at 09:45; Status DC Famotidine (Pepcid Vial) 20 mg BID IVP ; Start 03/10/19 at 09:00; Status UNV Morphine Sulfate (Morphine Sulfate) 2 mg PRN Q1HR PRN IV SEE COMMENTS. Last administered on 03/25/19at 09:18; Start 03/10/19 at 07:30; Stop 04/07/19 at 09:45; Status DC Morphine Sulfate (Morphine Sulfate) 4 mg PRN Q1HR PRN IV SEE COMMENTS. Last administered on 03/31/19at 10:50; Start 03/10/19 at 07:30; Stop 04/07/19 at 09:45; Status DC Midazolam HCl 100 ml @ 0 mls/hr CONT PRN IV SEE PROTOCOL Last administered on 04/01/19at 02:07; Start 03/10/19 at 07:30; Stop 04/07/19 at 09:45; Status DC Levofloxacin/ Dextrose (Levaquin Per Pharmacy) 1 each PRN DAILY PRN MC SEE COMMENTS; Start 03/10/19 at 08:15; Stop 03/14/19 at 09:25; Status DC Albuterol/ Ipratropium (Duoneb) 3 ml RTQID NEB Last administered on 04/10/19at 11:24; Start 03/10/19 at 12:00 Sodium Chloride 1,000 ml @ 100 mls/hr Q10H IV Last administered on 03/10/19at 23:34; Start 03/10/19 at 08:15; Stop 03/11/19 at 16:02; Status DC Amlodipine Besylate (Norvasc) 5 mg DAILY PO Last administered on 03/10/19at 09:13; Start 03/10/19 at 09:00; Stop 03/10/19 at 10:04; Status DC Hydrochlorothiazide (Hydrodiuril) 25 mg DAILY PO Last administered on 03/10/19at 09:13; Start 03/10/19 at 09:00; Stop 03/10/19 at 10:04; Status DC Lisinopril (Prinivil) 5 mg DAILY PO Last administered on 03/10/19at 09:13; Start 03/10/19 at 09:00; Stop 03/10/19 at 10:04; Status DC Levofloxacin/ Dextrose 100 ml @ 100 mls/hr Q24H IV Last administered on 03/14/19at 08:10; Start 03/10/19 at 09:00; Stop 03/14/19 at 09:25; Status DC Aspirin (Amanda Aspirin) 325 mg 1X ONCE PO Last administered on 03/10/19at 10:55; Start 03/10/19 at 10:30; Stop 03/10/19 at 10:31; Status DC Aspirin (Children'S Aspirin) 81 mg DAILYWBKFT PO Last administered on 04/10/19at 09:51; Start 03/11/19 at 08:00 Amlodipine Besylate (Norvasc) 10 mg DAILY PO Last administered on 03/11/19at 09:37; Start 03/11/19 at 09:00; Stop 03/11/19 at 12:50; Status DC Hydralazine HCl (Apresoline Inj) 10 mg PRN Q4HRS PRN IVP ELEVATED BP, SEE COMMENTS; Start 03/10/19 at 10:15; Stop 03/12/19 at 09:37; Status DC Furosemide (Lasix) 40 mg DAILY IVP Last administered on 03/11/19at 09:37; Start 03/10/19 at 11:00; Stop 03/11/19 at 11:24; Status DC Insulin Human Lispro (HumaLOG) 0-9 UNITS TIDWMEALS SQ ; Start 03/10/19 at 12:00; Stop 03/10/19 at 17:57; Status DC Dextrose (Dextrose 50%-Water Syringe) 12.5 gm PRN Q15MIN PRN IV SEE COMMENTS; Start 03/10/19 at 11:15; Stop 03/12/19 at 16:47; Status DC Dextrose 250 ml PRN Q15MIN PRN IV SEE COMMENTS; Start 03/10/19 at 11:15; Stop 03/10/19 at 11:05; Status DC Iohexol (Omnipaque 350 Mg/ml) 100 ml 1X ONCE IV Last administered on 03/10/19at 14:05; Start 03/10/19 at 11:45; Stop 03/10/19 at 11:47; Status DC Info (CONTRAST GIVEN -- Rx MONITORING) 1 each PRN DAILY PRN MC SEE COMMENTS; Start 03/10/19 at 11:45; Stop 03/12/19 at 11:44; Status DC Piperacillin Sod/ Tazobactam Sod (Zosyn Per Pharmacy) 1 each PRN DAILY PRN MC SEE COMMENTS; Start 03/10/19 at 11:45; Stop 03/25/19 at 08:36; Status DC Vancomycin HCl (Vanco Per Pharmacy) 1 each PRN DAILY PRN MC SEE COMMENTS Last administered on 03/11/19at 09:42; Start 03/10/19 at 11:45; Stop 03/11/19 at 13:57; Status DC Vancomycin HCl 2 gm/Sodium Chloride 500 ml @ 250 mls/hr 1X ONCE IV Last administered on 03/10/19at 12:41; Start 03/10/19 at 13:00; Stop 03/10/19 at 14:59; Status DC Piperacillin Sod/ Tazobactam Sod 3.375 gm/Sodium Chloride 50 ml @ 100 mls/hr Q6HRS IV Last administered on 03/24/19at 05:45; Start 03/10/19 at 12:30; Stop at 07:24; Status DC Vancomycin HCl 1.75 gm/Sodium Chloride 500 ml @ 250 mls/hr Q12H IV Last administered on 03/11/19at 12:43; Start 03/11/19 at 01:00; Stop 03/11/19 at 13:57; Status DC Vancomycin HCl (Vancomycin Trough Level) 1 each 1X ONCE MC ; Start 03/12/19 at 12:30; Stop 03/12/19 at 12:31; Status Cancel Insulin Human Lispro (HumaLOG) 0-9 UNITS Q6HRS SQ ; Start 03/11/19 at 00:00; Stop 03/27/19 at 09:06; Status DC Magnesium Sulfate/ Dextrose 100 ml @ 50 mls/hr DAILY IV Last administered on 03/11/19at 09:28; Start 03/11/19 at 09:00; Stop 03/14/19 at 08:59; Status DC Potassium Phosphate 27.2 mmol/Sodium Chloride 259.0667 ml @ 64.753 m... 1X ONCE IV Last administered on 03/11/19at 09:28; Start 03/11/19 at 10:00; Stop 03/11/19 at 14:00; Status DC Potassium Phosphate 27.2 mmol/Sodium Chloride 259.0667 ml @ 64.753 m... 1X ONCE IV ; Start 03/11/19 at 14:00; Stop 03/11/19 at 18:00; Status DC Lorazepam (Ativan Inj) 1 mg PRN Q1HR PRN IV ANXIETY Last administered on 03/14/19at 16:32; Start 03/11/19 at 11:00; Stop 03/19/19 at 10:31; Status DC Sodium Chloride 1,000 ml @ 1,000 mls/hr 1X ONCE IV Last administered on 03/11/19at 12:06; Start 03/11/19 at 11:30; Stop 03/11/19 at 12:29; Status DC Norepinephrine Bitartrate 250 ml @ 27.837 mls/ hr CONT PRN IV SEE I/O RECORD Last administered on 03/13/19at 04:13; Start 03/11/19 at 13:00; Stop 03/26/19 at 09:22; Status DC Hydralazine HCl (Apresoline Inj) 10 mg PRN Q4HRS PRN IVP ELEVATED BP, SEE COMMENTS Last administered on 04/08/19at 23:31; Start 03/11/19 at 13:00 Linezolid/Dextrose 300 ml @ 300 mls/hr Q12HR IV Last administered on 03/22/19at 21:38; Start 03/11/19 at 21:00; Stop 03/23/19 at 07:48; Status DC Potassium Chloride/Water 50 ml @ 50 mls/hr Q1H IV Last administered on 03/11/19at 17:28; Start 03/11/19 at 16:00; Stop 03/11/19 at 17:59; Status DC Heparin Sodium (Porcine) (Heparin Sodium) 5,000 unit Q8HRS SQ Last administered on 04/07/19at 05:53; Start 03/11/19 at 22:00; Stop 04/07/19 at 09:45; Status DC Multi-Ingred Cream/Lotion/Oil/ Oint (Artificial Tears Eye Ointment) 1 zuri PRN Q1HR PRN OU DRY EYE; Start 03/12/19 at 09:00 Potassium Chloride/Water 50 ml @ 50 mls/hr 1X ONCE IV Last administered on 03/12/19at 09:44; Start 03/12/19 at 10:00; Stop 03/12/19 at 10:59; Status DC Potassium Chloride/Water 50 ml @ 50 mls/hr 1X ONCE IV ; Start 03/12/19 at 10:30; Stop 03/12/19 at 11:31; Status DC Insulin Human Lispro (HumaLOG) 0-9 UNITS TIDWMEALS SQ ; Start 03/12/19 at 17:00; Stop 03/12/19 at 16:24; Status DC Dextrose (Dextrose 50%-Water Syringe) 12.5 gm PRN Q15MIN PRN IV SEE COMMENTS; Start 03/12/19 at 16:15 Dextrose 250 ml PRN Q15MIN PRN IV SEE COMMENTS; Start 03/12/19 at 16:15; Stop 03/27/19 at 08:59; Status DC Insulin Human Lispro (HumaLOG) 0-9 UNITS Q6HRS SQ Last administered on 03/26/19at 00:37; Start 03/12/19 at 18:00 Dexmedetomidine HCl 400 mcg/ Sodium Chloride 100 ml @ 0 mls/hr CONT PRN IV ANXIETY / AGITATION Last administered on 03/21/19at 04:33; Start 03/12/19 at 20:30; Stop 03/26/19 at 09:22; Status DC Sodium Chloride 500 ml @ 500 mls/hr 1X PRN PRN IV see comments Last administ ered on 03/12/19at 23:22; Start 03/12/19 at 20:30; Stop 03/30/19 at 14:05; Status DC Atropine Sulfate (ATROPINE 0.5mg SYRINGE) 0.5 mg PRN Q5MIN PRN IV SEE COMMENTS; Start 03/12/19 at 20:30; Stop 03/30/19 at 14:06; Status DC Vecuronium [place] (Norcuron Bolus) 10 mg PRN Q1HR PRN IV OVERBREATHING VENT Last administered on 03/25/19at 10:49; Start 03/13/19 at 07:30; Stop 04/07/19 at 09:45; Status DC Perflutren Protein Type A Microsphe (Optison) 0.66 mg STK-MED ONCE IV ; Start 03/13/19 at 09:08; Stop 03/13/19 at 09:08; Status DC Perflutren Protein Type A Microsphe (Optison) 0.66 mg 1X ONCE IV Last administered on 03/13/19at 09:40; Start 03/13/19 at 09:15; Stop 03/13/19 at 09:16; Status DC Furosemide (Lasix) 40 mg 1X ONCE IVP Last administered on 03/13/19at 13:32; S tart 03/13/19 at 10:30; Stop 03/13/19 at 10:31; Status DC Daptomycin 1320 mg/Sodium Chloride 50 ml @ 100 mls/hr ONCE ONCE IV Last administered on 03/15/19at 13:53; Start 03/15/19 at 13:00; Stop 03/16/19 at 09:33; Status DC Daptomycin 1340 mg/Sodium Chloride 50 ml @ 100 mls/hr Q24H IV ; Start 03/16/19 at 08:45; Status UNV Daptomycin 1340 mg/Sodium Chloride 50 ml @ 100 mls/hr Q24H IV ; Start 03/16/19 at 09:00; Status Cancel Daptomycin 830 mg/ Sodium Chloride 50 ml @ 100 mls/hr Q24H IV Last administered on 03/18/19at 15:03; Start 03/16/19 at 14:00; Stop 03/19/19 at 07:41; Status DC Methylprednisolone Sodium Succinate (SOLU-Medrol 125MG VIAL) 100 mg Q8HRS IV Last administered on 03/23/19at 05:54; Start 03/16/19 at 12:00; Stop 03/23/19 at 12:03; Status DC Furosemide (Lasix) 40 mg 1X ONCE IVP Last administered on 03/16/19at 16:46; Start 03/16/19 at 16:30; Stop 03/16/19 at 16:31; Status DC Fentanyl Citrate (Fentanyl 600 Mcg/30 ml PLACEMENT MANAGER) 600 mcg STK-MED ONCE IV ; Start 03/13/19 at 17:00; Stop 03/17/19 at 11:02; Status DC Furosemide 100 mg/ Sodium Chloride 100 ml @ 5 mls/hr CONT PRN IV SEE I/O RECORD Last administered on 03/18/19at 00:20; Start 03/17/19 at 15:45; Stop 03/18/19 at 10:36; Status DC Furosemide 100 mg/ Sodium Chloride 100 ml @ 5 mls/hr CONT PRN IV SEE I/O RECORD Last administered on 03/21/19at 08:34; Start 03/18/19 at 10:45; Stop 03/21/19 at 12:57; Status DC Lorazepam (Ativan Inj) 2 mg PRN Q1HR PRN IV ANXIETY Last administered on 04/04/19at 00:30; Start 03/19/19 at 10:45; Stop 04/07/19 at 09:45; Status DC Lisinopril (Prinivil) 5 mg DAILY PO Last administered on 04/10/19at 09:51; Start 03/21/19 at 11:30 Amlodipine Besylate (Norvasc) 10 mg DAILY PO Last administered on 04/10/19at 09:51; Start 03/21/19 at 11:30 Furosemide 100 mg/ Sodium Chloride 100 ml @ 10 mls/hr CONT PRN IV SEE I/O RECORD Last administered on 03/22/19at 05:05; Start 03/21/19 at 16:00; Stop 03/22/19 at 12:39; Status DC Scopolamine (Transderm-Scop) 1 patch Q3DAYS TD Last administered on 04/06/19at 10:24; Start 03/22/19 at 11:00; Stop 04/07/19 at 09:45; Status DC Furosemide 100 mg/ Sodium Chloride 100 ml @ 5 mls/hr CONT PRN IV SEE I/O RECORD Last administered on 03/22/19at 21:38; Start 03/22/19 at 12:45; Stop 03/23/19 at 17:48; Status DC Methylprednisolone Sodium Succinate (SOLU-Medrol 125MG VIAL) 50 mg Q8HRS IV Last administered on 03/27/19at 05:30; Start 03/23/19 at 14:00; Stop 03/27/19 at 11:20; Status DC Insulin Human Lispro (HumaLOG) 0-5 UNITS TIDWMEALS SQ ; Start 03/27/19 at 09:30; Status Cancel Dextrose (Dextrose 50%-Water Syringe) 12.5 gm PRN Q15MIN PRN IV SEE COMMENTS; Start 03/27/19 at 09:00; Status Cancel Dextrose 250 ml PRN Q15MIN PRN IV SEE COMMENTS; Start 03/27/19 at 09:00; Status Cancel Methylprednisolone Sodium Succinate (SOLU-Medrol 40MG VIAL) 30 mg Q8HRS IV Last administered on 04/02/19at 06:28; Start 03/27/19 at 14:00; Stop 04/02/19 at 11:19; Status DC Furosemide (Lasix) 40 mg 1X ONCE IVP Last administered on 03/27/19at 11:58; Start 03/27/19 at 12:00; Stop 03/27/19 at 12:01; Status DC Furosemide (Lasix) 40 mg 1X ONCE IVP Last administered on 03/28/19at 10:15; Start 03/28/19 at 09:30; Stop 03/28/19 at 09:46; Status DC Furosemide (Lasix) 40 mg 1X ONCE IVP Last administered on 03/29/19at 09:44; Start 03/29/19 at 09:30; Stop 03/29/19 at 09:31; Status DC Sodium Chloride 1,000 ml @ 1,000 mls/hr 1X ONCE IV Last administered on 03/29/19at 20:41; Start 03/29/19 at 20:30; Stop 03/29/19 at 21:29; Status DC Norepinephrine Bitartrate 250 ml @ 38.554 mls/ hr CONT PRN IV SEE I/O RECORD; Start 03/29/19 at 20:30 Furosemide (Lasix) 40 mg 1X ONCE IVP Last administered on 03/30/19at 10:42; Start 03/30/19 at 10:15; Stop 03/30/19 at 10:16; Status DC Sodium Bicarbonate (Sodium Bicarb Adult 8.4% Syr) 50 meq STK-MED ONCE .ROUTE ; Start 03/31/19 at 17:28; Stop 03/31/19 at 17:29; Status DC Lactic Acid (Lac-Hydrin) 1 zuri BID TP Last administered on 04/10/19at 09:52; Start 04/01/19 at 21:00 Methylprednisolone Sodium Succinate (SOLU-Medrol 40MG VIAL) 30 mg DAILY IV Last administered on 04/07/19at 05:47; Start 04/03/19 at 09:00; Stop 04/07/19 at 09:45; Status DC Furosemide (Lasix) 40 mg 1X ONCE IVP Last administered on 04/02/19at 12:09; Start 04/02/19 at 11:30; Stop 04/02/19 at 11:35; Status DC Furosemide (Lasix) 40 mg 1X ONCE IVP ; Start 04/02/19 at 12:00; Stop 04/02/19 at 12:01; Status DC Dexmedetomidine HCl 400 mcg/ Sodium Chloride 100 ml @ 0 mls/hr CONT PRN IV ANXIETY / AGITATION Last administered on 04/03/19at 11:03; Start 04/02/19 at 16:00; Stop 04/07/19 at 09:45; Status DC Sodium Chloride 1,000 ml @ 1,000 mls/hr 1X ONCE IV Last administered on 04/02/19at 22:00; Start 04/02/19 at 22:00; Stop 04/02/19 at 22:59; Status DC Ondansetron HCl (Zofran) 4 mg 1X ONCE IM Last administered on 04/03/19at 12:39; Start 04/03/19 at 12:45; Stop 04/03/19 at 12:46; Status DC Acetaminophen (Tylenol) 500 mg PRN Q6HRS PRN PO MILD PAIN / TEMP Last administered on 04/08/19at 12:07; Start 04/03/19 at 18:30 Ondansetron HCl (Zofran) 4 mg PRN Q6HRS PRN IVP NAUSEA/VOMITING Last administered on 04/04/19at 21:04; Start 04/03/19 at 18:30 Amino Acids/ Glycerin/ Electrolytes 1,000 ml @ 50 mls/hr Q20H IV Last administered on 04/09/19at 21:42; Start 04/06/19 at 12:15 Potassium Chloride (Klor-Con) 40 meq 1X ONCE PO Last administered on 04/07/19at 17:40; Start 04/07/19 at 11:45; Stop 04/07/19 at 11:46; Status DC Active Scripts Active Norvasc (Amlodipine Besylate) 5 Mg Tablet 1 Tab PO DAILY Lisinopril 5 Mg Tablet 1 Tab PO DAILY Reported Hydrochlorothiazide Tablet (Hydrochlorothiazide) 25 Mg Tablet 25 Mg PO DAILY Vitals/I & O Vital Sign - Last 24 Hours 04/09/19 04/09/19 04/09/19 04/09/19 11:37 14:55 15:31 19:10 Temp 99.0 99.0 Pulse 98 Resp 26 B/P (MAP) 131/76 (94) Pulse Ox 95 98 O2 Delivery Nasal Cannula Nasal Cannula Nasal Cannula Nasal Cannula O2 Flow Rate 2.0 2.0 2.0 2.0 04/09/19 04/09/19 04/09/19 04/10/19 19:10 19:57 23:10 00:11 Temp 99.1 99.7 99.1 99.7 Pulse 90 79 Resp 20 20 B/P (MAP) 136/77 (96) 156/90 (112) Pulse Ox 97 98 96 100 O2 Delivery Nasal Cannula Nasal Cannula Nasal Cannula BiPAP/CPAP O2 Flow Rate 2.0 2.0 2.0 04/10/19 04/10/19 04/10/19 04/10/19 03:55 07:08 07:23 08:00 Temp 98.8 98.6 98.8 98.6 Pulse 90 92 Resp 22 22 B/P (MAP) 159/96 (117) 170/91 (117) Pulse Ox 94 94 98 O2 Delivery Nasal Cannula Nasal Cannula Nasal Cannula Nasal Cannula O2 Flow Rate 2.0 2.0 2.0 2.0 04/10/19 04/10/19 04/10/19 04/10/19 09:51 09:51 10:13 11:27 Temp 98.5 98.5 Pulse 89 87 92 Resp 22 B/P (MAP) 131/80 131/80 137/81 (99) Pulse Ox 98 98 O2 Delivery Nasal Cannula Nasal Cannula O2 Flow Rate 2.0 2.0 Intake and Output 04/09/19 04/09/19 04/10/19 15:00 23:00 07:00 Intake Total 120 ml 120 ml 180 ml Output Total 750 ml 600 ml Balance 120 ml -630 ml -420 ml ERROL CASILLAS MD Apr 10, 2019 11:35
[2019-04-10] MEDS ORDERED: INSULIN LISPRO 300 UNITS/3 ML VIAL. SQ PRN (11:45)
--- NOTE | 2019-04-10 11:46 | NUR ---
SS following up with discharge planning. [facility] is following for self pay status. PT/OT recommending inpatient rehabilitation but unable to go at this time due to self pay status. SS will continue to follow for discharge planning.
[2019-04-10 14:33] VITALS: BP 140/88
--- NOTE | 2019-04-10 15:44 | PDOC ---
PROGRESS NOTES Assessment Assessment Myoclonic movements. Respiratory failure. ARDS. DM. HTN. COPD. SHARON. Morbid obesity. Vaping. RECOMMENDATIONS/PLAN: Continue ASA daily. Continue medical treatment. OT/PT. Weight reduction. Objective: Not observed myoclonic movement on 04/10/19. PAST MEDICAL HISTORY: Hypertension. Ascending thoracic aorta 4.4 cm. Chronic lymphedema. History of congestive heart failure. Chronic obstructive pulmonary disease. Obstructive sleep apnea. ALLERGIES: No known allergies to drugs. FAMILY HISTORY: Hypertension. SOCIAL HISTORY: He smokes less than a pack a day. He does not drink alcohol or use recreational drugs. PAST SURGICAL HISTORY: No major surgery recently. MEDICATIONS: Refer to [facility] REVIEW OF SYSTEMS: Constitutional: Morbid obesity. Head: No recent traumatic brain or head injury. Skin: No edema, or rash. Ear: No infection. Eyes: No vision loss, or diplopia. Nose: No bleeding or purulent discharges. Hearing: No hearing decrease. Neck: No injury. Cardiac: HTN Pulmonary: COPD. GI: No GI Ulcer, GI bleeding Urinary/genital: No dysuria, incontinence, urinary retention. Endocrine: Diabetes Mellitus. Skeletomuscular: No muscular atrophy. Neurological: see HP. Psychiatric: Denies drug use/abuse. Otherwise, not -tehtx review of systems. PHYSICAL EXAMINATION: General appearance in subacute distress. HEENT: Normocephalic and nontraumatic. Eyes, nose, ears, and throat are unremarkable. Neck is supple. No lymphadenopathy. No Crepitus. Cardiovascular: S1, S2, regular rate and rhythm. Pulmonary: Mildly decreased to auscultation bilaterally. Abdomen: Bowel sounds are positive. Abdomen is soft, nontender, and nondistended. Extremities: Chronic significant skin changes as venous stasis in LE. NEUROLOGICAL EXAMINATION: Awake. Oriented partially to time, place and person. PERRL. EOMI. CN: no focal findings. Muscle tone: within normal. Muscle strength: 4-5- UE, 2 LE DTR: 0-1 Plantar reflex: Flexor response bilaterally Gait: not examined in bed. Sensory exam: no acute abnormal findings. No cerebellar signs elicited. F-T-N test not performed. Objective Objective Vital Signs Date Time Temp Pulse Resp B/P (MAP) Pulse Ox O2 Delivery O2 Flow Rate FiO2 04/10/19 14:33 99.3 93 22 140/88 (105) 98 Nasal Cannula 2.0 99.3 Intake and Output 04/10/19 07:00 Intake Total 420 ml Output Total 1350 ml Balance -930 ml Intake Oral 420 ml Output Urine Total 1350 ml # Bowel Movements 1 Vitals Signs Vitals VS - Last 72 Hours, by Label Date Time Temp Pulse Resp B/P (MAP) Pulse Ox O2 Delivery O2 Flow Rate FiO2 04/10/19 14:33 99.3 93 22 140/88 (105) 98 Nasal Cannula 2.0 99.3 04/10/19 11:27 98 Nasal Cannula 2.0 04/10/19 10:13 98.5 92 22 137/81 (99) 98 Nasal Cannula 2.0 98.5 04/10/19 09:51 87 131/80 04/10/19 09:51 89 131/80 04/10/19 08:00 Nasal Cannula 2.0 04/10/19 07:23 98 Nasal Cannula 2.0 04/10/19 07:08 98.6 92 22 170/91 (117) 94 Nasal Cannula 2.0 98.6 04/10/19 03:55 98.8 90 22 159/96 (117) 94 Nasal Cannula 2.0 98.8 04/10/19 00:11 100 BiPAP/CPAP 04/09/19 23:10 99.7 79 20 156/90 (112) 96 Nasal Cannula 2.0 99.7 04/09/19 19:57 98 Nasal Cannula 2.0 04/09/19 19:10 99.1 90 20 136/77 (96) 97 Nasal Cannula 2.0 99.1 04/09/19 19:10 Nasal Cannula 2.0 04/09/19 15:31 Nasal Cannula 2.0 04/09/19 14:55 99.0 98 26 131/76 (94) 98 Nasal Cannula 2.0 99.0 04/09/19 11:37 95 Nasal Cannula 2.0 04/09/19 11:21 98.7 97 24 152/91 (111) 95 Nasal Cannula 2.0 98.7 04/09/19 09:36 93 152/81 04/09/19 09:35 93 152/81 04/09/19 08:00 2.0 04/09/19 08:00 Nasal Cannula 2.0 04/09/19 07:36 97 Nasal Cannula 2.0 04/09/19 07:00 98.5 93 24 152/81 (104) 94 Nasal Cannula 2.0 98.5 Laboratory Laboratory Laboratory Tests Test 04/09/19 16:56 04/10/19 00:01 04/10/19 05:45 04/10/19 06:10 Glucose (Fingerstick) 111 mg/dL (70-99) 92 mg/dL (70-99) 105 mg/dL (70-99) Sodium Level 137 mmol/L (136-145) Potassium Level 3.5 mmol/L (3.5-5.1) Chloride Level 104 mmol/L (98-107) Carbon Dioxide Level 25 mmol/L (21-32) Anion Gap 8 (6-14) Blood Urea Nitrogen 11 mg/dL (8-26) Creatinine 0.5 mg/dL (0.7-1.3) Estimated GFR (Cockcroft-Gault) 214.7 BUN/Creatinine Ratio 22 (6-20) Glucose Level 99 mg/dL (70-99) Calcium Level 8.5 mg/dL (8.5-10.1) Total Bilirubin 1.9 mg/dL (0.2-1.0) Aspartate Amino Transf (AST/SGOT) 16 U/L (15-37) Alanine Aminotransferase (ALT/SGPT) 37 U/L (16-63) Alkaline Phosphatase 88 U/L (46-116) Total Protein 5.8 g/dL (6.4-8.2) Albumin 2.4 g/dL (3.4-5.0) Albumin/Globulin Ratio 0.7 (1.0-1.7) Test 04/10/19 07:40 04/10/19 11:28 Glucose (Fingerstick) 104 mg/dL (70-99) 110 mg/dL (70-99) Microbiology 03/16/19 - Final, Complete 03/16/19 - Final, Complete 03/16/19 Gram Stain Evaluation - Final, Complete 03/16/19 Sputum Culture - Final, Complete 03/16/19 Sputum Result 1 - Final, Complete 03/16/19 Blood Culture - Final, Complete NO GROWTH AFTER 5 DAYS 03/09/19 Urine Culture - Final, Complete 03/09/19 Urine Culture Result 1 (WIL) - Final, Complete Medication Medications Current Medications Insulin Human Lispro (HumaLOG) 0-9 UNITS PRN Q6HRS PRN SQ change in status; Start 04/10/19 at 11:45 Comment Review of Relevant I have reviewed the following items peter (where applicable) has been applied. MARLENA MCFARLANE MD Apr 10, 2019 15:44
[2019-04-10 19:05] VITALS: BP 137/71
[2019-04-10] MEDS: AMINO AC 3%/ELECTROLYTE/GLYCER 1,000 ML IV SCH (22:10)
[2019-04-10 23:13] VITALS: BP 154/91
[2019-04-11 03:55] VITALS: BP 133/67
[2019-04-11 06:47] LABS: ALBUMIN 2.4 g/dL (3.4-5.0); ALBUMIN/GLOBULIN RATIO 0.7 (1.0-1.7); CALCIUM 8.5 mg/dL (8.5-10.1); CREATININE 0.6 mg/dL (0.7-1.3); POTASSIUM 3.6 mmol/L (3.5-5.1); TOTAL BILIRUBIN 1.6 mg/dL (0.2-1.0); TOTAL PROTEIN 5.8 g/dL (6.4-8.2)
[2019-04-11 07:00] VITALS: BP 155/79
[2019-04-11] MEDS: IPRATRPIUM/ALBUTEROL 0.5/2.5MG 3 ML NEBU. NEB SCH ×4 (07:17→20:32)
[2019-04-11] MEDS: amLODIPine BESYLATE 10 MG TABLET PO SCH (08:45)
[2019-04-11] MEDS: LISINOPRIL 5 MG TABLET. PO SCH (08:45)
[2019-04-11] MEDS: AMMONIUM LACTATE 12% TOPICAL LOTION 226GM BOTTLE. TP SCH ×2 (08:45→21:00)
[2019-04-11] MEDS: ASPIRIN CHEWABLE 81 MG TABLET. PO SCH (08:45)
[2019-04-11 11:00] VITALS: BP 151/79
[2019-04-11] MEDS: ACETAMINOPHEN 500 MG TABLET PO PRN (11:41)
--- NOTE | 2019-04-11 14:21 | PDOC ---
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 Increased Troponin Morbid Obesity Pulmonary HTN Tobacco use History of Present Illness History of Present Illness 04/10/19 Terrell is doing better, still weak will remove rectal tube plan to remove urinary cath soon, he is very weak feels better after breathing treatments he has been playing [email or web address], getting better, Recommended to take ASA daily by neuro Vitals Vitals Vital Signs Date Time Temp Pulse Resp B/P (MAP) Pulse Ox O2 Delivery O2 Flow Rate FiO2 04/11/19 12:02 96 Nasal Cannula 2.0 04/11/19 11:00 99.0 89 20 151/79 (103) 99.0 Physical Exam Physical Exam GENERAL: Orally intubated/ sedated - lightly, HEENT: opened eyes Pupils equal, nml conj OGT/ETT NECK: Supple LUNGS: dec bs at bases HEART: S1 and S2, regular. ABDOMEN: Obese, soft, +BS : Ramos in place fecal tube in place EXTREMITIES: Trace edema - MITTS SKIN: Chronic stasis dermatitis on the lower extremity. NEUROLOGIC: Awake IVS; Old RIJ site clean. RUE - PICC clean General: Alert, Oriented X3, Cooperative, No acute distress, Other (short neck , Mallampati 4 ON VENT) Heart: Regular rate (SR), Normal S1, Normal S2, Other (distante heart sounds) Lungs: Other (decrease bs) Abdomen: Normal bowel sounds, Soft, No tenderness, No hepatosplenomegaly, No masses Extremities: No clubbing, No cyanosis, No edema, Normal pulses, No tendern ess/swelling Skin: No rashes, No breakdown, No significant lesion Labs LABS Laboratory Tests Test 04/11/19 06:10 Sodium Level 140 mmol/L (136-145) Potassium Level 3.6 mmol/L (3.5-5.1) Chloride Level 105 mmol/L (98-107) Carbon Dioxide Level 25 mmol/L (21-32) Anion Gap 10 (6-14) Blood Urea Nitrogen 10 mg/dL (8-26) Creatinine 0.6 mg/dL (0.7-1.3) Estimated GFR (Cockcroft-Gault) 174.0 BUN/Creatinine Ratio 17 (6-20) Glucose Level 101 mg/dL (70-99) Calcium Level 8.5 mg/dL (8.5-10.1) Total Bilirubin 1.6 mg/dL (0.2-1.0) Aspartate Amino Transf (AST/SGOT) 15 U/L (15-37) Alanine Aminotransferase (ALT/SGPT) 37 U/L (16-63) Alkaline Phosphatase 76 U/L (46-116) Total Protein 5.8 g/dL (6.4-8.2) Albumin 2.4 g/dL (3.4-5.0) Albumin/Globulin Ratio 0.7 (1.0-1.7) Assessment and Plan Assessmemt and Plan Problems Medical Problems: (1) CHF exacerbation Status: Acute (2) COPD exacerbation Status: Acute (3) Hypoxia Status: Acute (4) NSTEMI (non-ST elevated myocardial infarction) Status: Acute (5) Respiratory failure Status: Acute Comment Review of Relevant I have reviewed the following items peter (where applicable) has been applied. Labs Laboratory Tests Test 04/09/19 16:56 04/10/19 00:01 04/10/19 05:45 04/10/19 06:10 Glucose (Fingerstick) 111 mg/dL (70-99) 92 mg/dL (70-99) 105 mg/dL (70-99) Sodium Level 137 mmol/L (136-145) Potassium Level 3.5 mmol/L (3.5-5.1) Chloride Level 104 mmol/L (98-107) Carbon Dioxide Level 25 mmol/L (21-32) Anion Gap 8 (6-14) Blood Urea Nitrogen 11 mg/dL (8-26) Creatinine 0.5 mg/dL (0.7-1.3) Estimated GFR (Cockcroft-Gault) 214.7 BUN/Creatinine Ratio 22 (6-20) Glucose Level 99 mg/dL (70-99) Calcium Level 8.5 mg/dL (8.5-10.1) Total Bilirubin 1.9 mg/dL (0.2-1.0) Aspartate Amino Transf (AST/SGOT) 16 U/L (15-37) Alanine Aminotransferase (ALT/SGPT) 37 U/L (16-63) Alkaline Phosphatase 88 U/L (46-116) Total Protein 5.8 g/dL (6.4-8.2) Albumin 2.4 g/dL (3.4-5.0) Albumin/Globulin Ratio 0.7 (1.0-1.7) Test 04/10/19 07:40 04/10/19 11:28 04/11/19 06:10 Glucose (Fingerstick) 104 mg/dL (70-99) 110 mg/dL (70-99) Sodium Level 140 mmol/L (136-145) Potassium Level 3.6 mmol/L (3.5-5.1) Chloride Level 105 mmol/L (98-107) Carbon Dioxide Level 25 mmol/L (21-32) Anion Gap 10 (6-14) Blood Urea Nitrogen 10 mg/dL (8-26) Creatinine 0.6 mg/dL (0.7-1.3) Estimated GFR (Cockcroft-Gault) 174.0 BUN/Creatinine Ratio 17 (6-20) Glucose Level 101 mg/dL (70-99) Calcium Level 8.5 mg/dL (8.5-10.1) Total Bilirubin 1.6 mg/dL (0.2-1.0) Aspartate Amino Transf (AST/SGOT) 15 U/L (15-37) Alanine Aminotransferase (ALT/SGPT) 37 U/L (16-63) Alkaline Phosphatase 76 U/L (46-116) Total Protein 5.8 g/dL (6.4-8.2) Albumin 2.4 g/dL (3.4-5.0) Albumin/Globulin Ratio 0.7 (1.0-1.7) Laboratory Tests Test 04/11/19 06:10 Sodium Level 140 mmol/L (136-145) Potassium Level 3.6 mmol/L (3.5-5.1) Chloride Level 105 mmol/L (98-107) Carbon Dioxide Level 25 mmol/L (21-32) Anion Gap 10 (6-14) Blood Urea Nitrogen 10 mg/dL (8-26) Creatinine 0.6 mg/dL (0.7-1.3) Estimated GFR (Cockcroft-Gault) 174.0 BUN/Creatinine Ratio 17 (6-20) Glucose Level 101 mg/dL (70-99) Calcium Level 8.5 mg/dL (8.5-10.1) Total Bilirubin 1.6 mg/dL (0.2-1.0) Aspartate Amino Transf (AST/SGOT) 15 U/L (15-37) Alanine Aminotransferase (ALT/SGPT) 37 U/L (16-63) Alkaline Phosphatase 76 U/L (46-116) Total Protein 5.8 g/dL (6.4-8.2) Albumin 2.4 g/dL (3.4-5.0) Albumin/Globulin Ratio 0.7 (1.0-1.7) Microbiology 03/16/19 - Final, Complete 03/16/19 - Final, Complete 03/16/19 Gram Stain Evaluation - Final, Complete 03/16/19 Sputum Culture - Final, Complete 03/16/19 Sputum Result 1 - Final, Complete 03/16/19 Blood Culture - Final, Complete NO GROWTH AFTER 5 DAYS 03/09/19 Urine Culture - Final, Complete 03/09/19 Urine Culture Result 1 (WIL) - Final, Complete Medications Current Medications Albuterol/ Ipratropium (Duoneb) 3 ml 1X ONCE NEB Last administered on 03/09/19at 21:21; Start 03/09/19 at 21:30; Stop 03/09/19 at 21:31; Status DC Dexamethasone Sodium Phosphate (Decadron) 10 mg 1X ONCE IV Last administered on 03/09/19at 22:29; Start 03/09/19 at 22:00; Stop 03/09/19 at 22:01; Status DC Propofol 100 ml @ 0 mls/hr CONT PRN IV SEE PROTOCOL Last administered on 03/10/19at 07:19; Start 03/09/19 at 22:30; Stop 03/10/19 at 07:28; Status DC Fentanyl Citrate (Fentanyl 2ml Vial) 50 mcg PRN Q1HR PRN IV SEE COMMENTS; Start 03/09/19 at 22:30; Stop 03/10/19 at 07:28; Status DC Chlorhexidine Gluconate (Peridex) 15 ml BID MM Last administered on 04/05/19at 08:06; Start 03/10/19 at 09:00; Stop 04/05/19 at 11:08; Status DC Famotidine (Pepcid Vial) 20 mg BID IVP Last administered on 04/06/19at 21:27; Start 03/10/19 at 09:00; Stop 04/07/19 at 09:45; Status DC Propofol 50 ml @ As Directed STK-MED ONCE IV ; Start 03/09/19 at 22:28; Stop 03/09/19 at 22:28; Status DC Albuterol/ Ipratropium (Duoneb) 3 ml 1X ONCE NEB Last administered on 03/10/19at 02:04; Start 03/09/19 at 23:00; Stop 03/09/19 at 23:01; Status DC Albuterol/ Ipratropium (Duoneb) 3 ml 1X ONCE NEB Last administered on 03/10/19at 02:04; Start 03/09/19 at 23:00; Stop 03/09/19 at 23:01; Status DC Fentanyl Citrate (Fentanyl 2ml Vial) 100 mcg 1X ONCE IV Last administered on at 23:31; Start 03/09/19 at 23:30; Stop 03/09/19 at 23:31; Status DC Bumetanide (Bumex) 1 mg 1X ONCE IV Last administered on 03/10/19at 00:21; Start 03/10/19 at 00:00; Stop 03/10/19 at 00:01; Status DC Heparin Sodium (Porcine) (Heparin Sodium) 4,000 unit 1X ONCE IV Last administered on 03/10/19at 00:31; Start 03/10/19 at 00:00; Stop 03/10/19 at 00:01; Status DC Heparin Sodium/ Dextrose 500 ml @ 0 mls/hr CONT PRN IV PER PROTOCOL Last administered on 03/10/19at 23:34; Start 03/09/19 at 23:45; Stop 03/11/19 at 16:13; Status DC Heparin Sodium (Porcine) (Heparin Sodium) 5,500 unit PRN Q6HRS PRN IV FOR UFH LEVEL LESS THAN 0.2 Last administered on 03/11/19at 00:57; Start 03/09/19 at 23:45; Stop 03/11/19 at 16:13; Status DC Aspirin (Aspirin Rectal Supp) 300 mg 1X ONCE CA Last administered on 03/10/19at 03:42; Start 03/10/19 at 00:00; Stop 03/10/19 at 00:01; Status DC Propofol 50 ml @ As Directed STK-MED ONCE IV ; Start 03/09/19 at 23:38; Stop 03/09/19 at 23:38; Status DC Propofol 50 ml @ As Directed STK-MED ONCE IV ; Start 03/09/19 at 23:38; Stop 03/09/19 at 23:38; Status DC Piperacillin Sod/ Tazobactam Sod 4.5 gm/Sodium Chloride 100 ml @ 200 mls/hr 1X ONCE IV Last administered on 03/10/19at 05:19; Start 03/10/19 at 00:30; Stop 03/10/19 at 00:59; Status DC Propofol 50 ml @ As Directed STK-MED ONCE IV ; Start 03/10/19 at 00:51; Stop 03/10/19 at 00:51; Status DC Propofol 50 ml @ As Directed STK-MED ONCE IV ; Start 03/10/19 at 01:14; Stop 03/10/19 at 01:15; Status DC Fentanyl Citrate (Fentanyl 2ml Vial) 100 mcg 1X ONCE IV Last administered on 03/10/19at 01:26; Start 03/10/19 at 01:45; Stop 03/10/19 at 01:46; Status DC Clonidine HCl (Catapres) 0.1 mg 1X ONCE PO ; Start 03/10/19 at 01:30; Stop 03/10/19 at 01:34; Status DC Midazolam HCl (Versed) 5 mg 1X ONCE IV Last administered on 03/10/19at 01:28; Start 03/10/19 at 01:30; Stop 03/10/19 at 01:34; Status DC Propofol 50 ml @ As Directed STK-MED ONCE IV ; Start 03/10/19 at 02:08; Stop 03/10/19 at 02:09; Status DC Propofol 50 ml @ As Directed STK-MED ONCE IV ; Start 03/10/19 at 02:36; Stop 03/10/19 at 02:36; Status DC Rocuronium [place] (Zemuron) 50 mg STK-MED ONCE .ROUTE ; Start 03/10/19 at 05:15; Stop 03/10/19 at 05:15; Status DC Etomidate (Amidate) 20 mg STK-MED ONCE IV ; Start 03/10/19 at 05:15; Stop 03/10/19 at 05:16; Status DC Fentanyl Citrate 30 ml @ 0 mls/hr CONT PRN IV SEE PROTOCOL Last administered on 04/03/19at 09:05; Start 03/10/19 at 07:30; Stop 04/07/19 at 09:44; Status DC Propofol 100 ml @ 0 mls/hr CONT PRN IV SEE PROTOCOL Last administered on 04/02/19at 15:10; Start 03/10/19 at 07:30; Stop 04/07/19 at 09:44; Status DC Fentanyl Citrate (Fentanyl 2ml Vial) 25 mcg PRN Q1HR PRN IV SEE COMMENTS; Start 03/10/19 at 07:30; Stop 04/07/19 at 09:44; Status DC Fentanyl Citrate (Fentanyl 2ml Vial) 50 mcg PRN Q1HR PRN IV SEE COMMENTS; Start 03/10/19 at 07:30; Stop 04/07/19 at 09:45; Status DC Artificial Tears (Artificial Tears) 1 drop PRN Q1HR PRN OU DRY EYE, 1ST CHOICE Last administered on 03/13/19at 13:32; Start 03/10/19 at 07:30; Stop 04/07/19 at 09:45; Status DC Famotidine (Pepcid Vial) 20 mg BID IVP ; Start 03/10/19 at 09:00; Status UNV Morphine Sulfate (Morphine Sulfate) 2 mg PRN Q1HR PRN IV SEE COMMENTS. Last a dministered on 03/25/19at 09:18; Start 03/10/19 at 07:30; Stop 04/07/19 at 09:45; Status DC Morphine Sulfate (Morphine Sulfate) 4 mg PRN Q1HR PRN IV SEE COMMENTS. Last administered on 03/31/19at 10:50; Start 03/10/19 at 07:30; Stop 04/07/19 at 09:45; Status DC Midazolam HCl 100 ml @ 0 mls/hr CONT PRN IV SEE PROTOCOL Last administered on 04/01/19at 02:07; Start 03/10/19 at 07:30; Stop 04/07/19 at 09:45; Status DC Levofloxacin/ Dextrose (Levaquin Per Pharmacy) 1 each PRN DAILY PRN MC SEE COMMENTS; Start 03/10/19 at 08:15; Stop 03/14/19 at 09:25; Status DC Albuterol/ Ipratropium (Duoneb) 3 ml RTQID NEB Last administered on 04/11/19at 12:02; Start 03/10/19 at 12:00 Sodium Chloride 1,000 ml @ 100 mls/hr Q10H IV Last administered on 03/10/19at 23:34; Start 03/10/19 at 08:15; Stop 03/11/19 at 16:02; Status DC Amlodipine Besylate (Norvasc) 5 mg DAILY PO Last administered on 03/10/19at 09:13; Start 03/10/19 at 09:00; Stop 03/10/19 at 10:04; Status DC Hydrochlorothiazide (Hydrodiuril) 25 mg DAILY PO Last administered on 03/10/19at 09:13; Start 03/10/19 at 09:00; Stop 03/10/19 at 10:04; Status DC Lisinopril (Prinivil) 5 mg DAILY PO Last administered on 03/10/19at 09:13; Start 03/10/19 at 09:00; Stop 03/10/19 at 10:04; Status DC Levofloxacin/ Dextrose 100 ml @ 100 mls/hr Q24H IV Last administered on 03/14/19at 08:10; Start 03/10/19 at 09:00; Stop 03/14/19 at 09:25; Status DC Aspirin (Amanda Aspirin) 325 mg 1X ONCE PO Last administered on 03/10/19at 10:55; Start 03/10/19 at 10:30; Stop 03/10/19 at 10:31; Status DC Aspirin (Children'S Aspirin) 81 mg DAILYWBKFT PO Last administered on 04/11/19at 08:45; Start 03/11/19 at 08:00 Amlodipine Besylate (Norvasc) 10 mg DAILY PO Last administered on 03/11/19at 09:37; Start 03/11/19 at 09:00; Stop 03/11/19 at 12:50; Status DC Hydralazine HCl (Apresoline Inj) 10 mg PRN Q4HRS PRN IVP ELEVATED BP, SEE COMMENTS; Start 03/10/19 at 10:15; Stop 03/12/19 at 09:37; Status DC Furosemide (Lasix) 40 mg DAILY IVP Last administered on 03/11/19at 09:37; Start 03/10/19 at 11:00; Stop 03/11/19 at 11:24; Status DC Insulin Human Lispro (HumaLOG) 0-9 UNITS TIDWMEALS SQ ; Start 03/10/19 at 12:00; Stop 03/10/19 at 17:57; Status DC Dextrose (Dextrose 50%-Water Syringe) 12.5 gm PRN Q15MIN PRN IV SEE COMMENTS; Start 03/10/19 at 11:15; Stop 03/12/19 at 16:47; Status DC Dextrose 250 ml PRN Q15MIN PRN IV SEE COMMENTS; Start 03/10/19 at 11:15; Stop 03/10/19 at 11:05; Status DC Iohexol (Omnipaque 350 Mg/ml) 100 ml 1X ONCE IV Last administered on 03/10/19at 14:05; Start 03/10/19 at 11:45; Stop 03/10/19 at 11:47; Status DC Info (CONTRAST GIVEN -- Rx MONITORING) 1 each PRN DAILY PRN MC SEE COMMENTS; Start 03/10/19 at 11:45; Stop 03/12/19 at 11:44; Status DC Piperacillin Sod/ Tazobactam Sod (Zosyn Per Pharmacy) 1 each PRN DAILY PRN MC SEE COMMENTS; Start 03/10/19 at 11:45; Stop 03/25/19 at 08:36; Status DC Vancomycin HCl (Vanco Per Pharmacy) 1 each PRN DAILY PRN MC SEE COMMENTS Last administered on 03/11/19at 09:42; Start 03/10/19 at 11:45; Stop 03/11/19 at 13:57; Status DC Vancomycin HCl 2 gm/Sodium Chloride 500 ml @ 250 mls/hr 1X ONCE IV Last administered on 03/10/19at 12:41; Start 03/10/19 at 13:00; Stop 03/10/19 at 14:59; Status DC Piperacillin Sod/ Tazobactam Sod 3.375 gm/Sodium Chloride 50 ml @ 100 mls/hr Q6HRS IV Last administered on 03/24/19at 05:45; Start 03/10/19 at 12:30; Stop 03/24/19 at 07:24; Status DC Vancomycin HCl 1.75 gm/Sodium Chloride 500 ml @ 250 mls/hr Q12H IV Last administered on 03/11/19at 12:43; Start 03/11/19 at 01:00; Stop 03/11/19 at 13:57; Status DC Vancomycin HCl (Vancomycin Trough Level) 1 each 1X ONCE MC ; Start 03/12/19 at 12:30; Stop 03/12/19 at 12:31; Status Cancel Insulin Human Lispro (HumaLOG) 0-9 UNITS Q6HRS SQ ; Start 03/11/19 at 00:00; Stop 03/27/19 at 09:06; Status DC Magnesium Sulfate/ Dextrose 100 ml @ 50 mls/hr DAILY IV Last administered on 03/11/19at 09:28; Start 03/11/19 at 09:00; Stop 03/14/19 at 08:59; Status DC Potassium Phosphate 27.2 mmol/Sodium Chloride 259.0667 ml @ 64.753 m... 1X ONCE IV Last administered on 03/11/19at 09:28; Start 03/11/19 at 10:00; Stop 03/11/19 at 14:00; Status DC Potassium Phosphate 27.2 mmol/Sodium Chloride 259.0667 ml @ 64.753 m... 1X ONCE IV ; Start 03/11/19 at 14:00; Stop 03/11/19 at 18:00; Status DC Lorazepam (Ativan Inj) 1 mg PRN Q1HR PRN IV ANXIETY Last administered on 03/14/19at 16:32; Start 03/11/19 at 11:00; Stop 03/19/19 at 10:31; Status DC Sodium Chloride 1,000 ml @ 1,000 mls/hr 1X ONCE IV Last administered on 03/11/19at 12:06; Start 03/11/19 at 11:30; Stop 03/11/19 at 12:29; Status DC Norepinephrine Bitartrate 250 ml @ 27.837 mls/ hr CONT PRN IV SEE I/O RECORD Last administered on 03/13/19at 04:13; Start 03/11/19 at 13:00; Stop 03/26/19 at 09:22; Status DC Hydralazine HCl (Apresoline Inj) 10 mg PRN Q4HRS PRN IVP ELEVATED BP, SEE COMMENTS Last administered on 04/08/19at 23:31; Start 03/11/19 at 13:00 Linezolid/Dextrose 300 ml @ 300 mls/hr Q12HR IV Last administered on 03/22/19at 21:38; Start 03/11/19 at 21:00; Stop 03/23/19 at 07:48; Status DC Potassium Chloride/Water 50 ml @ 50 mls/hr Q1H IV Last administered on 03/11/19at 17:28; Start 03/11/19 at 16:00; Stop 03/11/19 at 17:59; Status DC Heparin Sodium (Porcine) (Heparin Sodium) 5,000 unit Q8HRS SQ Last administered on 04/07/19at 05:53; Start 03/11/19 at 22:00; Stop 04/07/19 at 09:45; Status DC Multi-Ingred Cream/Lotion/Oil/ Oint (Artificial Tears Eye Ointment) 1 zuri PRN Q1HR PRN OU DRY EYE; Start 03/12/19 at 09:00 Potassium Chloride/Water 50 ml @ 50 mls/hr 1X ONCE IV Last administered on 03/12/19at 09:44; Start 03/12/19 at 10:00; Stop 03/12/19 at 10:59; Status DC Potassium Chloride/Water 50 ml @ 50 mls/hr 1X ONCE IV ; Start 03/12/19 at 10:30; Stop 03/12/19 at 11:31; Status DC Insulin Human Lispro (HumaLOG) 0-9 UNITS TIDWMEALS SQ ; Start 03/12/19 at 17:00; Stop 03/12/19 at 16:24; Status DC Dextrose (Dextrose 50%-Water Syringe) 12.5 gm PRN Q15MIN PRN IV SEE COMMENTS; Start 03/12/19 at 16:15 Dextrose 250 ml PRN Q15MIN PRN IV SEE COMMENTS; Start 03/12/19 at 16:15; Stop 03/27/19 at 08:59; Status DC Insulin Human Lispro (HumaLOG) 0-9 UNITS Q6HRS SQ Last administered on 03/26/19at 00:37; Start 03/12/19 at 18:00; Stop 04/10/19 at 11:37; Status DC Dexmedetomidine HCl 400 mcg/ Sodium Chloride 100 ml @ 0 mls/hr CONT PRN IV ANXIETY / AGITATION Last administered on 03/21/19at 04:33; Start 03/12/19 at 20:30; Stop 03/26/19 at 09:22; Status DC Sodium Chloride 500 ml @ 500 mls/hr 1X PRN PRN IV see comments Last administered on 03/12/19at 23:22; Start 03/12/19 at 20:30; Stop 03/30/19 at 14:05; Status DC Atropine Sulfate (ATROPINE 0.5mg SYRINGE) 0.5 mg PRN Q5MIN PRN IV SEE COMMENTS; Start 03/12/19 at 20:30; Stop 03/30/19 at 14:06; Status DC Vecuronium [place] (Norcuron Bolus) 10 mg PRN Q1HR PRN IV OVERBREATHING VENT Last administered on 03/25/19at 10:49; Start 03/13/19 at 07:30; Stop 04/07/19 at 09:45; Status DC Perflutren Protein Type A Microsphe (Optison) 0.66 mg STK-MED ONCE IV ; Start 03/13/19 at 09:08; Stop 03/13/19 at 09:08; Status DC Perflutren Protein Type A Microsphe (Optison) 0.66 mg 1X ONCE IV Last administ ered on 03/13/19at 09:40; Start 03/13/19 at 09:15; Stop 03/13/19 at 09:16; Status DC Furosemide (Lasix) 40 mg 1X ONCE IVP Last administered on 03/13/19at 13:32; Start 03/13/19 at 10:30; Stop 03/13/19 at 10:31; Status DC Daptomycin 1320 mg/Sodium Chloride 50 ml @ 100 mls/hr ONCE ONCE IV Last administered on 03/15/19at 13:53; Start 03/15/19 at 13:00; Stop 03/16/19 at 09:33; Status DC Daptomycin 1340 mg/Sodium Chloride 50 ml @ 100 mls/hr Q24H IV ; Start 03/16/19 at 08:45; Status UNV Daptomycin 1340 mg/Sodium Chloride 50 ml @ 100 mls/hr Q24H IV ; Start 03/16/19 at 09:00; Status Cancel Daptomycin 830 mg/ Sodium Chloride 50 ml @ 100 mls/hr Q24H IV Last administered on 03/18/19at 15:03; Start 03/16/19 at 14:00; Stop 03/19/19 at 07:41; Status DC Methylprednisolone Sodium Succinate (SOLU-Medrol 125MG VIAL) 100 mg Q8HRS IV Last administered on 03/23/19at 05:54; Start 03/16/19 at 12:00; Stop 03/23/19 at 12:03; Status DC Furosemide (Lasix) 40 mg 1X ONCE IVP Last administered on 03/16/19at 16:46; Start 03/16/19 at 16:30; Stop 03/16/19 at 16:31; Status DC Fentanyl Citrate (Fentanyl 600 Mcg/30 ml MOTOR POOL DRIVER) 600 mcg STK-MED ONCE IV ; Start 03/13/19 at 17:00; Stop 03/17/19 at 11:02; Status DC Furosemide 100 mg/ Sodium Chloride 100 ml @ 5 mls/hr CONT PRN IV SEE I/O RECORD Last administered on 03/18/19at 00:20; Start 03/17/19 at 15:45; Stop 03/18/19 at 10:36; Status DC Furosemide 100 mg/ Sodium Chloride 100 ml @ 5 mls/hr CONT PRN IV SEE I/O RECORD Last administered on 03/21/19at 08:34; Start 03/18/19 at 10:45; Stop 03/21/19 at 12:57; Status DC Lorazepam (Ativan Inj) 2 mg PRN Q1HR PRN IV ANXIETY Last administered on 04/04/19at 00:30; Start 03/19/19 at 10:45; Stop 04/07/19 at 09:45; Status DC Lisinopril (Prinivil) 5 mg DAILY PO Last administered on 04/11/19at 08:45; Start 03/21/19 at 11:30 Amlodipine Besylate (Norvasc) 10 mg DAILY PO Last administered on 04/11/19at 08:45; Start 03/21/19 at 11:30 Furosemide 100 mg/ Sodium Chloride 100 ml @ 10 mls/hr CONT PRN IV SEE I/O RECORD Last administered on 03/22/19at 05:05; Start 03/21/19 at 16:00; Stop 03/22/19 at 12:39; Status DC Scopolamine (Transderm-Scop) 1 patch Q3DAYS TD Last administered on 04/06/19at 10:24; Start 03/22/19 at 11:00; Stop 04/07/19 at 09:45; Status DC Furosemide 100 mg/ Sodium Chloride 100 ml @ 5 mls/hr CONT PRN IV SEE I/O RECORD Last administered on 03/22/19at 21:38; Start 03/22/19 at 12:45; Stop 03/23/19 at 17:48; Status DC Methylprednisolone Sodium Succinate (SOLU-Medrol 125MG VIAL) 50 mg Q8HRS IV Last administered on 03/27/19at 05:30; Start 03/23/19 at 14:00; Stop 03/27/19 at 11:20; Status DC Insulin Human Lispro (HumaLOG) 0-5 UNITS TIDWMEALS SQ ; Start 03/27/19 at 09:30; Status Cancel Dextrose (Dextrose 50%-Water Syringe) 12.5 gm PRN Q15MIN PRN IV SEE COMMENTS; Start 03/27/19 at 09:00; Status Cancel Dextrose 250 ml PRN Q15MIN PRN IV SEE COMMENTS; Start 03/27/19 at 09:00; Status Cancel Methylprednisolone Sodium Succinate (SOLU-Medrol 40MG VIAL) 30 mg Q8HRS IV Last administered on 04/02/19at 06:28; Start 03/27/19 at 14:00; Stop 04/02/19 at 11:19; Status DC Furosemide (Lasix) 40 mg 1X ONCE IVP Last administered on 03/27/19at 11:58; Start 03/27/19 at 12:00; Stop 03/27/19 at 12:01; Status DC Furosemide (Lasix) 40 mg 1X ONCE IVP Last administered on 03/28/19at 10:15; Start 03/28/19 at 09:30; Stop 03/28/19 at 09:46; Status DC Furosemide (Lasix) 40 mg 1X ONCE IVP Last administered on 03/29/19at 09:44; Start 03/29/19 at 09:30; Stop 03/29/19 at 09:31; Status DC Sodium Chloride 1,000 ml @ 1,000 mls/hr 1X ONCE IV Last administered on 03/29/19at 20:41; Start 03/29/19 at 20:30; Stop 03/29/19 at 21:29; Status DC Norepinephrine Bitartrate 250 ml @ 38.554 mls/ hr CONT PRN IV SEE I/O RECORD; Start 03/29/19 at 20:30 Furosemide (Lasix) 40 mg 1X ONCE IVP Last administered on 03/30/19at 10:42; Start 03/30/19 at 10:15; Stop 03/30/19 at 10:16; Status DC Sodium Bicarbonate (Sodium Bicarb Adult 8.4% Syr) 50 meq STK-MED ONCE .ROUTE ; Start 03/31/19 at 17:28; Stop 03/31/19 at 17:29; Status DC Lactic Acid (Lac-Hydrin) 1 zuri BID TP Last administered on 04/11/19at 08:45; Start 04/01/19 at 21:00 Methylprednisolone Sodium Succinate (SOLU-Medrol 40MG VIAL) 30 mg DAILY IV Last administered on 04/07/19at 05:47; Start 04/03/19 at 09:00; Stop 04/07/19 at 09:45; Status DC Furosemide (Lasix) 40 mg 1X ONCE IVP Last administered on 04/02/19at 12:09; Start 04/02/19 at 11:30; Stop 04/02/19 at 11:35; Status DC Furosemide (Lasix) 40 mg 1X ONCE IVP ; Start 04/02/19 at 12:00; Stop 04/02/19 at 12:01; Status DC Dexmedetomidine HCl 400 mcg/ Sodium Chloride 100 ml @ 0 mls/hr CONT PRN IV ANXIETY / AGITATION Last administered on 04/03/19at 11:03; Start 04/02/19 at 16:00; Stop 04/07/19 at 09:45; Status DC Sodium Chloride 1,000 ml @ 1,000 mls/hr 1X ONCE IV Last administered on 04/02/19at 22:00; Start 04/02/19 at 22:00; Stop 04/02/19 at 22:59; Status DC Ondansetron HCl (Zofran) 4 mg 1X ONCE IM Last administered on 04/03/19at 12:39; Start 04/03/19 at 12:45; Stop 04/03/19 at 12:46; Status DC Acetaminophen (Tylenol) 500 mg PRN Q6HRS PRN PO MILD PAIN / TEMP Last administered on 04/11/19at 11:41; Start 04/03/19 at 18:30 Ondansetron HCl (Zofran) 4 mg PRN Q6HRS PRN IVP NAUSEA/VOMITING Last administered on 04/04/19at 21:04; Start 04/03/19 at 18:30 Amino Acids/ Glycerin/ Electrolytes 1,000 ml @ 50 mls/hr Q20H IV Last administered on 04/10/19at 22:10; Start 04/06/19 at 12:15 Potassium Chloride (Klor-Con) 40 meq 1X ONCE PO Last administered on 04/07/19at 17:40; Start 04/07/19 at 11:45; Stop 04/07/19 at 11:46; Status DC Insulin Human Lispro (HumaLOG) 0-9 UNITS PRN Q6HRS PRN SQ PER SLIDING SCALE; Start 04/10/19 at 11:45 Active Scripts Active Norvasc (Amlodipine Besylate) 5 Mg Tablet 1 Tab PO DAILY Lisinopril 5 Mg Tablet 1 Tab PO DAILY Reported Hydrochlorothiazide Tablet (Hydrochlorothiazide) 25 Mg Tablet 25 Mg PO DAILY Vitals/I & O Vital Sign - Last 24 Hours 04/10/19 04/10/19 04/10/19 04/10/19 14:33 15:46 19:05 19:54 Temp 99.3 98.3 99.3 98.3 Pulse 93 91 Resp 22 22 B/P (MAP) 140/88 (105) 137/71 (93) Pulse Ox 98 98 92 92 O2 Delivery Nasal Cannula Room Air Room Air Nasal Cannula O2 Flow Rate 2.0 2.0 04/10/19 04/10/19 04/10/19 04/11/19 20:15 22:58 23:13 00:48 Temp 98.1 98.1 Pulse 79 Resp 21 B/P (MAP) 154/91 (112) Pulse Ox 95 97 O2 Delivery Room Air BiPAP/CPAP Room Air BiPAP/CPAP 04/11/19 04/11/19 04/11/19 04/11/19 03:33 03:55 07:00 07:17 Temp 98.4 98.3 98.4 98.3 Pulse 91 93 Resp 20 20 B/P (MAP) 133/67 (89) 155/79 (104) Pulse Ox 96 96 97 98 O2 Delivery Nasal Cannula Nasal Cannula Nasal Cannula Nasal Cannula O2 Flow Rate 2.0 2.0 2.0 2.0 1004/11/19 04/11/19 04/11/19 07:45 08:45 08:45 11:00 Temp 99.0 99.0 Pulse 93 93 89 Resp 20 B/P (MAP) 155/79 155/79 151/79 (103) Pulse Ox 97 O2 Delivery Nasal Cannula Nasal Cannula O2 Flow Rate 2.0 2.0 04/11/19 12:02 Pulse Ox 96 O2 Delivery Nasal Cannula O2 Flow Rate 2.0 Intake and Output 04/10/19 04/10/19 04/11/19 15:00 23:00 07:00 Intake Total 500 ml 240 ml Output Total 2000 ml 950 ml Balance -1500 ml -710 ml ERROL CASILLAS MD Apr 11, 2019 14:20
[2019-04-11 15:00] VITALS: BP 163/74
[2019-04-11] MEDS: AMINO AC 3%/ELECTROLYTE/GLYCER 1,000 ML IV SCH (15:12)
[2019-04-11 19:10] VITALS: BP 140/57
[2019-04-11 23:51] VITALS: BP 157/82
[2019-04-12 03:00] VITALS: BP 118/74
--- NOTE | 2019-04-12 05:27 | NUR ---
Patient repeatedly takes off BiPAP overnight. Now on n/c. Turned x2 with assist of 3. Patient refuses turns all other times. BLE much less swollen tonight.
[2019-04-12 07:00] VITALS: BP 142/70
[2019-04-12] MEDS: IPRATRPIUM/ALBUTEROL 0.5/2.5MG 3 ML NEBU. NEB SCH ×4 (07:12→19:15)
[2019-04-12] MEDS: INSULIN LISPRO 300 UNITS/3 ML VIAL. SQ SCH ×3 (08:00→17:00)
[2019-04-12 08:36] LABS: ALBUMIN 2.5 g/dL (3.4-5.0); ALBUMIN/GLOBULIN RATIO 0.7 (1.0-1.7); CALCIUM 8.5 mg/dL (8.5-10.1); CREATININE 0.6 mg/dL (0.7-1.3); POTASSIUM 3.4 mmol/L (3.5-5.1); TOTAL BILIRUBIN 1.6 mg/dL (0.2-1.0)
[2019-04-12] MEDS: amLODIPine BESYLATE 10 MG TABLET PO SCH (08:47)
[2019-04-12] MEDS: LISINOPRIL 5 MG TABLET. PO SCH (08:47)
[2019-04-12] MEDS: ASPIRIN CHEWABLE 81 MG TABLET. PO SCH (08:47)
[2019-04-12] MEDS: AMMONIUM LACTATE 12% TOPICAL LOTION 226GM BOTTLE. TP SCH ×2 (08:50→20:18)
--- NOTE | 2019-04-12 09:47 | PDOC ---
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 Increased Troponin Morbid Obesity Pulmonary HTN Tobacco use History of Present Illness History of Present Illness 04/12/19 Terrell is doing better, still weak doign well without rectal tube plan to remove urinary cath tomorrow very tired this AM, his sleep schedule is flipped, he plays xbox all night, he is doing better with PT activity on his own feels better after breathing treatments Vitals Vitals Vital Signs Date Time Temp Pulse Resp B/P (MAP) Pulse Ox O2 Delivery O2 Flow Rate FiO2 04/12/19 08:47 91 142/70 04/12/19 07:14 96 Nasal Cannula 2.0 04/12/19 07:00 98.3 21 98.3 Physical Exam Physical Exam GENERAL: Orally intubated/ sedated - lightly, HEENT: opened eyes Pupils equal, nml conj OGT/ETT NECK: Supple LUNGS: dec bs at bases HEART: S1 and S2, regular. ABDOMEN: Obese, soft, +BS : Ramos in place fecal tube in place EXTREMITIES: Trace edema - MITTS SKIN: Chronic stasis dermatitis on the lower extremity. NEUROLOGIC: Awake IVS; Old RIJ site clean. RUE - PICC clean General: Alert, Oriented X3, Cooperative, No acute distress, Other (short neck , Mallampati 4 ON VENT) Heart: Regular rate (SR), Normal S1, Normal S2, Other (distante heart sounds) Lungs: Other (decrease bs) Abdomen: Normal bowel sounds, Soft, No tenderness, No hepatosplenomegaly, No masses Extremities: No clubbing, No cyanosis, No edema, Normal pulses, No tenderness/swelling Skin: No rashes, No breakdown, No significant lesion Labs LABS Laboratory Tests Test 04/12/19 08:00 Sodium Level 139 mmol/L (136-145) Potassium Level 3.4 mmol/L (3.5-5.1) Chloride Level 104 mmol/L (98-107) Carbon Dioxide Level 25 mmol/L (21-32) Anion Gap 10 (6-14) Blood Urea Nitrogen 8 mg/dL (8-26) Creatinine 0.6 mg/dL (0.7-1.3) Estimated GFR (Cockcroft-Gault) 174.0 BUN/Creatinine Ratio 13 (6-20) Glucose Level 92 mg/dL (70-99) Calcium Level 8.5 mg/dL (8.5-10.1) Total Bilirubin 1.6 mg/dL (0.2-1.0) Aspartate Amino Transf (AST/SGOT) 16 U/L (15-37) Alanine Aminotransferase (ALT/SGPT) 33 U/L (16-63) Alkaline Phosphatase 76 U/L (46-116) Total Protein 6.0 g/dL (6.4-8.2) Albumin 2.5 g/dL (3.4-5.0) Albumin/Globulin Ratio 0.7 (1.0-1.7) Assessment and Plan Assessmemt and Plan Problems Medical Problems: (1) CHF exacerbation Status: Acute (2) COPD exacerbation Status: Acute (3) Hypoxia Status: Acute (4) NSTEMI (non-ST elevated myocardial infarction) Status: Acute (5) Respiratory failure Status: Acute Comment Review of Relevant I have reviewed the following items peter (where applicable) has been applied. Labs Laboratory Tests Test 04/10/19 11:28 04/11/19 06:10 04/12/19 08:00 Glucose (Fingerstick) 110 mg/dL (70-99) Sodium Level 140 mmol/L (136-145) 139 mmol/L (136-145) Potassium Level 3.6 mmol/L (3.5-5.1) 3.4 mmol/L (3.5-5.1) Chloride Level 105 mmol/L (98-107) 104 mmol/L (98-107) Carbon Dioxide Level 25 mmol/L (21-32) 25 mmol/L (21-32) Anion Gap 10 (6-14) 10 (6-14) Blood Urea Nitrogen 10 mg/dL (8-26) 8 mg/dL (8-26) Creatinine 0.6 mg/dL (0.7-1.3) 0.6 mg/dL (0.7-1.3) Estimated GFR (Cockcroft-Gault) 174.0 174.0 BUN/Creatinine Ratio 17 (6-20) 13 (6-20) Glucose Level 101 mg/dL (70-99) 92 mg/dL (70-99) Calcium Level 8.5 mg/dL (8.5-10.1) 8.5 mg/dL (8.5-10.1) Total Bilirubin 1.6 mg/dL (0.2-1.0) 1.6 mg/dL (0.2-1.0) Aspartate Amino Transf (AST/SGOT) 15 U/L (15-37) 16 U/L (15-37) Alanine Aminotransferase (ALT/SGPT) 37 U/L (16-63) 33 U/L (16-63) Alkaline Phosphatase 76 U/L (46-116) 76 U/L (46-116) Total Protein 5.8 g/dL (6.4-8.2) 6.0 g/dL (6.4-8.2) Albumin 2.4 g/dL (3.4-5.0) 2.5 g/dL (3.4-5.0) Albumin/Globulin Ratio 0.7 (1.0-1.7) 0.7 (1.0-1.7) Laboratory Tests Test 04/12/19 08:00 Sodium Level 139 mmol/L (136-145) Potassium Level 3.4 mmol/L (3.5-5.1) Chloride Level 104 mmol/L (98-107) Carbon Dioxide Level 25 mmol/L (21-32) Anion Gap 10 (6-14) Blood Urea Nitrogen 8 mg/dL (8-26) Creatinine 0.6 mg/dL (0.7-1.3) Estimated GFR (Cockcroft-Gault) 174.0 BUN/Creatinine Ratio 13 (6-20) Glucose Level 92 mg/dL (70-99) Calcium Level 8.5 mg/dL (8.5-10.1) Total Bilirubin 1.6 mg/dL (0.2-1.0) Aspartate Amino Transf (AST/SGOT) 16 U/L (15-37) Alanine Aminotransferase (ALT/SGPT) 33 U/L (16-63) Alkaline Phosphatase 76 U/L (46-116) Total Protein 6.0 g/dL (6.4-8.2) Albumin 2.5 g/dL (3.4-5.0) Albumin/Globulin Ratio 0.7 (1.0-1.7) Microbiology 03/16/19 - Final, Complete 03/16/19 - Final, Complete 03/16/19 Gram Stain Evaluation - Final, Complete 03/16/19 Sputum Culture - Final, Complete 03/16/19 Sputum Result 1 - Final, Complete 03/16/19 Blood Culture - Final, Complete NO GROWTH AFTER 5 DAYS 03/09/19 Urine Culture - Final, Complete 03/09/19 Urine Culture Result 1 (WIL) - Final, Complete Medications Current Medications Albuterol/ Ipratropium (Duoneb) 3 ml 1X ONCE NEB Last administered on 03/09/19at 21:21; Start 03/09/19 at 21:30; Stop 03/09/19 at 21:31; Status DC Dexamethasone Sodium Phosphate (Decadron) 10 mg 1X ONCE IV Last administered on 03/09/19at 22:29; Start 03/09/19 at 22:00; Stop 03/09/19 at 22:01; Status DC Propofol 100 ml @ 0 mls/hr CONT PRN IV SEE PROTOCOL Last administered on 03/10/19at 07:19; Start 03/09/19 at 22:30; Stop 03/10/19 at 07:28; Status DC Fentanyl Citrate (Fentanyl 2ml Vial) 50 mcg PRN Q1HR PRN IV SEE COMMENTS; Start 03/09/19 at 22:30; Stop 03/10/19 at 07:28; Status DC Chlorhexidine Gluconate (Peridex) 15 ml BID MM Last administered on 04/05/19at 08:06; Start 03/10/19 at 09:00; Stop 04/05/19 at 11:08; Status DC Famotidine (Pepcid Vial) 20 mg BID IVP Last administered on 04/06/19at 21:27; Start 03/10/19 at 09:00; Stop 04/07/19 at 09:45; Status DC Propofol 50 ml @ As Directed STK-MED ONCE IV ; Start 03/09/19 at 22:28; Stop 03/09/19 at 22:28; Status DC Albuterol/ Ipratropium (Duoneb) 3 ml 1X ONCE NEB Last administered on 03/10/19at 02:04; Start 03/09/19 at 23:00; Stop 03/09/19 at 23:01; Status DC Albuterol/ Ipratropium (Duoneb) 3 ml 1X ONCE NEB Last administered on 03/10/19at 02:04; Start 03/09/19 at 23:00; Stop 03/09/19 at 23:01; Status DC Fentanyl Citrate (Fentanyl 2ml Vial) 100 mcg 1X ONCE IV Last administered on 03/09/19at 23:31; Start 03/09/19 at 23:30; Stop 03/09/19 at 23:31; Status DC Bumetanide (Bumex) 1 mg 1X ONCE IV Last administered on 03/10/19at 00:21; Start 03/10/19 at 00:00; Stop 03/10/19 at 00:01; Status DC Heparin Sodium (Porcine) (Heparin Sodium) 4,000 unit 1X ONCE IV Last adminis tered on 03/10/19at 00:31; Start 03/10/19 at 00:00; Stop 03/10/19 at 00:01; Status DC Heparin Sodium/ Dextrose 500 ml @ 0 mls/hr CONT PRN IV PER PROTOCOL Last administered on 03/10/19at 23:34; Start 03/09/19 at 23:45; Stop 03/11/19 at 16:13; Status DC Heparin Sodium (Porcine) (Heparin Sodium) 5,500 unit PRN Q6HRS PRN IV FOR UFH LEVEL LESS THAN 0.2 Last administered on 03/11/19at 00:57; Start 03/09/19 at 23:45; Stop 03/11/19 at 16:13; Status DC Aspirin (Aspirin Rectal Supp) 300 mg 1X ONCE MA Last administered on 03/10/19at 03:42; Start 03/10/19 at 00:00; Stop 03/10/19 at 00:01; Status DC Propofol 50 ml @ As Directed STK-MED ONCE IV ; Start 03/09/19 at 23:38; Stop 03/09/19 at 23:38; Status DC Propofol 50 ml @ As Directed STK-MED ONCE IV ; Start 03/09/19 at 23:38; Stop 03/09/19 at 23:38; Status DC Piperacillin Sod/ Tazobactam Sod 4.5 gm/Sodium Chloride 100 ml @ 200 mls/hr 1X ONCE IV Last administered on 03/10/19at 05:19; Start 03/10/19 at 00:30; Stop 03/10/19 at 00:59; Status DC Propofol 50 ml @ As Directed STK-MED ONCE IV ; Start 03/10/19 at 00:51; Stop 03/10/19 at 00:51; Status DC Propofol 50 ml @ As Directed STK-MED ONCE IV ; Start 03/10/19 at 01:14; Stop 03/10/19 at 01:15; Status DC Fentanyl Citrate (Fentanyl 2ml Vial) 100 mcg 1X ONCE IV Last administered on 03/10/19at 01:26; Start 03/10/19 at 01:45; Stop 03/10/19 at 01:46; Status DC Clonidine HCl (Catapres) 0.1 mg 1X ONCE PO ; Start 03/10/19 at 01:30; Stop 03/10/19 at 01:34; Status DC Midazolam HCl (Versed) 5 mg 1X ONCE IV Last administered on 03/10/19at 01:28; Start 03/10/19 at 01:30; Stop 03/10/19 at 01:34; Status DC Propofol 50 ml @ As Directed STK-MED ONCE IV ; Start 03/10/19 at 02:08; Stop 03/10 at 02:09; Status DC Propofol 50 ml @ As Directed STK-MED ONCE IV ; Start 03/10/19 at 02:36; Stop 03/10/19 at 02:36; Status DC Rocuronium [place] (Zemuron) 50 mg STK-MED ONCE .ROUTE ; Start 03/10/19 at 05:15; Stop 03/10/19 at 05:15; Status DC Etomidate (Amidate) 20 mg STK-MED ONCE IV ; Start 03/10/19 at 05:15; Stop 03/10/19 at 05:16; Status DC Fentanyl Citrate 30 ml @ 0 mls/hr CONT PRN IV SEE PROTOCOL Last administered on 04/03/19at 09:05; Start 03/10/19 at 07:30; Stop 04/07/19 at 09:44; Status DC Propofol 100 ml @ 0 mls/hr CONT PRN IV SEE PROTOCOL Last administered on 04/02/19at 15:10; Start 03/10/19 at 07:30; Stop 04/07/19 at 09:44; Status DC Fentanyl Citrate (Fentanyl 2ml Vial) 25 mcg PRN Q1HR PRN IV SEE COMMENTS; Start 03/10/19 at 07:30; Stop 04/07/19 at 09:44; Status DC Fentanyl Citrate (Fentanyl 2ml Vial) 50 mcg PRN Q1HR PRN IV SEE COMMENTS; Start 03/10/19 at 07:30; Stop 04/07/19 at 09:45; Status DC Artificial Tears (Artificial Tears) 1 drop PRN Q1HR PRN OU DRY EYE, 1ST CHOICE Last administered on 03/13/19at 13:32; Start 03/10/19 at 07:30; Stop 04/07/19 at 09:45; Status DC Famotidine (Pepcid Vial) 20 mg BID IVP ; Start 03/10/19 at 09:00; Status UNV Morphine Sulfate (Morphine Sulfate) 2 mg PRN Q1HR PRN IV SEE COMMENTS. Last administered on 03/25/19at 09:18; Start 03/10/19 at 07:30; Stop 04/07/19 at 09:45; Status DC Morphine Sulfate (Morphine Sulfate) 4 mg PRN Q1HR PRN IV SEE COMMENTS. Last administered on 03/31/19at 10:50; Start 03/10/19 at 07:30; Stop 04/07/19 at 09:45; Status DC Midazolam HCl 100 ml @ 0 mls/hr CONT PRN IV SEE PROTOCOL Last administered on 04/01/19at 02:07; Start 03/10/19 at 07:30; Stop 04/07/19 at 09:45; Status DC Levofloxacin/ Dextrose (Levaquin Per Pharmacy) 1 each PRN DAILY PRN MC SEE COMMENTS; Start 03/10/19 at 08:15; Stop 03/14/19 at 09:25; Status DC Albuterol/ Ipratropium (Duoneb) 3 ml RTQID NEB Last administered on 04/12/19at 07:12; Start 03/10/19 at 12:00 Sodium Chloride 1,000 ml @ 100 mls/hr Q10H IV Last administered on 03/10/19at 23:34; Start 03/10/19 at 08:15; Stop 03/11/19 at 16:02; Status DC Amlodipine Besylate (Norvasc) 5 mg DAILY PO Last administered on 03/10/19 09:13; Start 03/10/19 at 09:00; Stop 03/10/19 at 10:04; Status DC Hydrochlorothiazide (Hydrodiuril) 25 mg DAILY PO Last administered on 9/3/19at 09:13; Start 03/10/19 at 09:00; Stop 03/10/19 at 10:04; Status DC Lisinopril (Prinivil) 5 mg DAILY PO Last administered on 03/10/19at 09:13; Start 03/10/19 at 09:00; Stop 03/10/19 at 10:04; Status DC Levofloxacin/ Dextrose 100 ml @ 100 mls/hr Q24H IV Last administered on 9at 08:10; Start 03/10/19 at 09:00; Stop 03/14/19 at 09:25; Status DC Aspirin (Amanda Aspirin) 325 mg 1X ONCE PO Last administered on 03/10/19at 10:55; Start 03/10/19 at 10:30; Stop 03/10/19 at 10:31; Status DC Aspirin (Children'S Aspirin) 81 mg DAILYWBKFT PO Last administered on 04/12/19at 08:47; Start 03/11/19 at 08:00 Amlodipine Besylate (Norvasc) 10 mg DAILY PO Last administered on 03/11/19at 09:37; Start 03/11/19 at 09:00; Stop 03/11/19 at 12:50; Status DC Hydralazine HCl (Apresoline Inj) 10 mg PRN Q4HRS PRN IVP ELEVATED BP, SEE COMMENTS; Start 03/10/19 at 10:15; Stop 03/12/19 at 09:37; Status DC Furosemide (Lasix) 40 mg DAILY IVP Last administered on 03/11/19at 09:37; Start 03/10/19 at 11:00; Stop 03/11/19 at 11:24; Status DC Insulin Human Lispro (HumaLOG) 0-9 UNITS TIDWMEALS SQ ; Start 03/10/19 at 12:00; Stop 03/10/19 at 17:57; Status DC Dextrose (Dextrose 50%-Water Syringe) 12.5 gm PRN Q15MIN PRN IV SEE COMMENTS; Start 03/10/19 at 11:15; Stop 03/12/19 at 16:47; Status DC Dextrose 250 ml PRN Q15MIN PRN IV SEE COMMENTS; Start 03/10/19 at 11:15; Stop 03/10/19 at 11:05; Status DC Iohexol (Omnipaque 350 Mg/ml) 100 ml 1X ONCE IV Last administered on 03/10/19at 14:05; Start 03/10/19 at 11:45; Stop 03/10/19 at 11:47; Status DC Info (CONTRAST GIVEN -- Rx MONITORING) 1 each PRN DAILY PRN MC SEE COMMENTS; Start 03/10/19 at 11:45; Stop 03/12/19 at 11:44; Status DC Piperacillin Sod/ Tazobactam Sod (Zosyn Per Pharmacy) 1 each PRN DAILY PRN MC SEE COMMENTS; Start 03/10/19 at 11:45; Stop 03/25/19 at 08:36; Status DC Vancomycin HCl (Vanco Per Pharmacy) 1 each PRN DAILY PRN MC SEE COMMENTS Last administered on 03/11/19at 09:42; Start 03/10/19 at 11:45; Stop 03/11/19 at 13:57; Status DC Vancomycin HCl 2 gm/Sodium Chloride 500 ml @ 250 mls/hr 1X ONCE IV Last administered on 03/10/19at 12:41; Start 03/10/19 at 13:00; Stop 03/10/19 at 14:59; Status DC Piperacillin Sod/ Tazobactam Sod 3.375 gm/Sodium Chloride 50 ml @ 100 mls/hr Q6HRS IV Last administered on 03/24/19at 05:45; Start 03/10/19 at 12:30; Stop 03/24/19 at 07:24; Status DC Vancomycin HCl 1.75 gm/Sodium Chloride 500 ml @ 250 mls/hr Q12H IV Last administered on 03/11/19at 12:43; Start 03/11/19 at 01:00; Stop 03/11/19 at 13:57; Status DC Vancomycin HCl (Vancomycin Trough Level) 1 each 1X ONCE MC ; Start 03/12/19 at 12:30; Stop 03/12/19 at 12:31; Status Cancel Insulin Human Lispro (HumaLOG) 0-9 UNITS Q6HRS SQ ; Start 03/11/19 at 00:00; Stop 03/27/19 at 09:06; Status DC Magnesium Sulfate/ Dextrose 100 ml @ 50 mls/hr DAILY IV Last administered on 03/11/19at 09:28; Start 03/11/19 at 09:00; Stop 03/14/19 at 08:59; Status DC Potassium Phosphate 27.2 mmol/Sodium Chloride 259.0667 ml @ 64.753 m... 1X ONCE IV Last administered on 03/11/19at 09:28; Start 03/11/19 at 10:00; Stop 03/11/19 at 14:00; Status DC Potassium Phosphate 27.2 mmol/Sodium Chloride 259.0667 ml @ 64.753 m... 1X ONCE IV ; Start 03/11/19 at 14:00; Stop 03/11/19 at 18:00; Status DC Lorazepam (Ativan Inj) 1 mg PRN Q1HR PRN IV ANXIETY Last administered on 03/14/19at 16:32; Start 03/11/19 at 11:00; Stop 03/19/19 at 10:31; Status DC Sodium Chloride 1,000 ml @ 1,000 mls/hr 1X ONCE IV Last administered on 03/11/19at 12:06; Start 03/11/19 at 11:30; Stop 03/11/19 at 12:29; Status DC Norepinephrine Bitartrate 250 ml @ 27.837 mls/ hr CONT PRN IV SEE I/O RECORD Last administered on 03/13/19at 04:13; Start 03/11/19 at 13:00; Stop 03/26/19 at 09:22; Status DC Hydralazine HCl (Apresoline Inj) 10 mg PRN Q4HRS PRN IVP ELEVATED BP, SEE COMMENTS Last administered on 04/08/19at 23:31; Start 03/11/19 at 13:00 Linezolid/Dextrose 300 ml @ 300 mls/hr Q12HR IV Last administered on 03/22/19at 21:38; Start 03/11/19 at 21:00; Stop 03/23/19 at 07:48; Status DC Potassium Chloride/Water 50 ml @ 50 mls/hr Q1H IV Last administered on 03/11/19at 17:28; Start 03/11/19 at 16:00; Stop 03/11/19 at 17:59; Status DC Heparin Sodium (Porcine) (Heparin Sodium) 5,000 unit Q8HRS SQ Last administered on 04/07/19at 05:53; Start 03/11/19 at 22:00; Stop 04/07/19 at 09:45; Status DC Multi-Ingred Cream/Lotion/Oil/ Oint (Artificial Tears Eye Ointment) 1 zuri PRN Q1HR PRN OU DRY EYE; Start 03/12/19 at 09:00 Potassium Chloride/Water 50 ml @ 50 mls/hr 1X ONCE IV Last administered on 03/12/19at 09:44; Start 03/12/19 at 10:00; Stop 03/12/19 at 10:59; Status DC Potassium Chloride/Water 50 ml @ 50 mls/hr 1X ONCE IV ; Start 03/12/19 at 10:30; Stop 03/12/19 at 11:31; Status DC Insulin Human Lispro (HumaLOG) 0-9 UNITS TIDWMEALS SQ ; Start 03/12/19 at 17:00; Stop 03/12/19 at 16:24; Status DC Dextrose (Dextrose 50%-Water Syringe) 12.5 gm PRN Q15MIN PRN IV SEE COMMENTS; Start 03/12/19 at 16:15 Dextrose 250 ml PRN Q15MIN PRN IV SEE COMMENTS; Start 03/12/19 at 16:15; Stop 03/27/19 at 08:59; Status DC Insulin Human Lispro (HumaLOG) 0-9 UNITS Q6HRS SQ Last administered on 03/26/19at 00:37; Start 03/12/19 at 18:00; Stop 04/10/19 at 11:37; Status DC Dexmedetomidine HCl 400 mcg/ Sodium Chloride 100 ml @ 0 mls/hr CONT PRN IV ANXIETY / AGITATION Last administered on 03/21/19at 04:33; Start 03/12/19 at 20:30; Stop 03/26/19 at 09:22; Status DC Sodium Chloride 500 ml @ 500 mls/hr 1X PRN PRN IV see comments Last adm inistered on 03/12/19at 23:22; Start 03/12/19 at 20:30; Stop 03/30/19 at 14:05; Status DC Atropine Sulfate (ATROPINE 0.5mg SYRINGE) 0.5 mg PRN Q5MIN PRN IV SEE COMMENTS; Start 03/12/19 at 20:30; Stop 03/30/19 at 14:06; Status DC Vecuronium [place] (Norcuron Bolus) 10 mg PRN Q1HR PRN IV OVERBREATHING VENT Last administered on 03/25/19at 10:49; Start 03/13/19 at 07:30; Stop 04/07/19 at 09:45; Status DC Perflutren Protein Type A Microsphe (Optison) 0.66 mg STK-MED ONCE IV ; Start 03/13/19 at 09:08; Stop 03/13/19 at 09:08; Status DC Perflutren Protein Type A Microsphe (Optison) 0.66 mg 1X ONCE IV Last administered on 03/13/19at 09:40; Start 03/13/19 at 09:15; Stop 03/13/19 at 09:16; Status DC Furosemide (Lasix) 40 mg 1X ONCE IVP Last administered on 03/13/19at 13:32; Start 03/13/19 at 10:30; Stop 03/13/19 at 10:31; Status DC Daptomycin 1320 mg/Sodium Chloride 50 ml @ 100 mls/hr ONCE ONCE IV Last administered on 03/15/19at 13:53; Start 03/15/19 at 13:00; Stop 03/16/19 at 09:33; Status DC Daptomycin 1340 mg/Sodium Chloride 50 ml @ 100 mls/hr Q24H IV ; Start 03/16/19 at 08:45; Status UNV Daptomycin 1340 mg/Sodium Chloride 50 ml @ 100 mls/hr Q24H IV ; Start 03/16/19 at 09:00; Status Cancel Daptomycin 830 mg/ Sodium Chloride 50 ml @ 100 mls/hr Q24H IV Last administered on 03/18/19at 15:03; Start 03/16/19 at 14:00; Stop 03/19/19 at 07:41; Status DC Methylprednisolone Sodium Succinate (SOLU-Medrol 125MG VIAL) 100 mg Q8HRS IV Last administered on 03/23/19at 05:54; Start 03/16/19 at 12:00; Stop 03/23/19 at 12:03; Status DC Furosemide (Lasix) 40 mg 1X ONCE IVP Last administered on 03/16/19at 16:46; Start 03/16/19 at 16:30; Stop 03/16/19 at 16:31; Status DC Fentanyl Citrate (Fentanyl 600 Mcg/30 ml NEW GRAD RN) 600 mcg STK-MED ONCE IV ; Start 03/13/19 at 17:00; Stop 03/17/19 at 11:02; Status DC Furosemide 100 mg/ Sodium Chloride 100 ml @ 5 mls/hr CONT PRN IV SEE I/O RECORD Last administered on 03/18/19at 00:20; Start 03/17/19 at 15:45; Stop 03/18/19 at 10:36; Status DC Furosemide 100 mg/ Sodium Chloride 100 ml @ 5 mls/hr CONT PRN IV SEE I/O RECORD Last administered on 03/21/19at 08:34; Start 03/18/19 at 10:45; Stop 03/21/19 at 12:57; Status DC Lorazepam (Ativan Inj) 2 mg PRN Q1HR PRN IV ANXIETY Last administered on 04/04/19at 00:30; Start 03/19/19 at 10:45; Stop 04/07/19 at 09:45; Status DC Lisinopril (Prinivil) 5 mg DAILY PO Last administered on 04/12/19at 08:47; Start 03/21/19 at 11:30 Amlodipine Besylate (Norvasc) 10 mg DAILY PO Last administered on 04/12/19at 08:47; Start 03/21/19 at 11:30 Furosemide 100 mg/ Sodium Chloride 100 ml @ 10 mls/hr CONT PRN IV SEE I/O RECORD Last administered on 03/22/19at 05:05; Start 03/21/19 at 16:00; Stop 03/22/19 at 12:39; Status DC Scopolamine (Transderm-Scop) 1 patch Q3DAYS TD Last administered on 04/06/19at 10:24; Start 03/22/19 at 11:00; Stop 04/07/19 at 09:45; Status DC Furosemide 100 mg/ Sodium Chloride 100 ml @ 5 mls/hr CONT PRN IV SEE I/O RECORD Last administered on 03/22/19at 21:38; Start 03/22/19 at 12:45; Stop 03/23/19 at 17:48; Status DC Methylprednisolone Sodium Succinate (SOLU-Medrol 125MG VIAL) 50 mg Q8HRS IV Last administered on 03/27/19at 05:30; Start 03/23/19 at 14:00; Stop 03/27/19 at 11:20; Status DC Insulin Human Lispro (HumaLOG) 0-5 UNITS TIDWMEALS SQ ; Start 03/27/19 at 09:30; Status Cancel Dextrose (Dextrose 50%-Water Syringe) 12.5 gm PRN Q15MIN PRN IV SEE COMMENTS; Start 03/27/19 at 09:00; Status Cancel Dextrose 250 ml PRN Q15MIN PRN IV SEE COMMENTS; Start 03/27/19 at 09:00; Status Cancel Methylprednisolone Sodium Succinate (SOLU-Medrol 40MG VIAL) 30 mg Q8HRS IV Last administered on 04/02/19at 06:28; Start 03/27/19 at 14:00; Stop 04/02/19 at 11:19; Status DC Furosemide (Lasix) 40 mg 1X ONCE IVP Last administered on 03/27/19at 11:58; Start 03/27/19 at 12:00; Stop 03/27/19 at 12:01; Status DC Furosemide (Lasix) 40 mg 1X ONCE IVP Last administered on 03/28/19at 10:15; Start 03/28/19 at 09:30; Stop 03/28/19 at 09:46; Status DC Furosemide (Lasix) 40 mg 1X ONCE IVP Last administered on 03/29/19at 09:44; Start 03/29/19 at 09:30; Stop 03/29/19 at 09:31; Status DC Sodium Chloride 1,000 ml @ 1,000 mls/hr 1X ONCE IV Last administered on 03/29/19at 20:41; Start 03/29/19 at 20:30; Stop 03/29/19 at 21:29; Status DC Norepinephrine Bitartrate 250 ml @ 38.554 mls/ hr CONT PRN IV SEE I/O RECORD; Start 03/29/19 at 20:30 Furosemide (Lasix) 40 mg 1X ONCE IVP Last administered on 03/30/19at 10:42; Start 03/30/19 at 10:15; Stop 03/30/19 at 10:16; Status DC Sodium Bicarbonate (Sodium Bicarb Adult 8.4% Syr) 50 meq STK-MED ONCE .ROUTE ; Start 03/31/19 at 17:28; Stop 03/31/19 at 17:29; Status DC Lactic Acid (Lac-Hydrin) 1 zuri BID TP Last administered on 04/12/19 08:50; Start 04/01/19 at 21:00 Methylprednisolone Sodium Succinate (SOLU-Medrol 40MG VIAL) 30 mg DAILY IV Last administered on 04/07/19at 05:47; Start 04/03/19 at 09:00; Stop 04/07/19 at 09:45; Status DC Furosemide (Lasix) 40 mg 1X ONCE IVP Last administered on 04/02/19at 12:09; Start 04/02/19 at 11:30; Stop 04/02/19 at 11:35; Status DC Furosemide (Lasix) 40 mg 1X ONCE IVP ; Start 04/02/19 at 12:00; Stop 04/02/19 at 12:01; Status DC Dexmedetomidine HCl 400 mcg/ Sodium Chloride 100 ml @ 0 mls/hr CONT PRN IV ANXIETY / AGITATION Last administered on 04/03/19at 11:03; Start 04/02/19 at 16:00; Stop 04/07/19 at 09:45; Status DC Sodium Chloride 1,000 ml @ 1,000 mls/hr 1X ONCE IV Last administered on 04/02/19at 22:00; Start 04/02/19 at 22:00; Stop 04/02/19 at 22:59; Status DC Ondansetron HCl (Zofran) 4 mg 1X ONCE IM Last administered on 04/03/19at 12:39; Start 04/03/19 at 12:45; Stop 04/03/19 at 12:46; Status DC Acetaminophen (Tylenol) 500 mg PRN Q6HRS PRN PO MILD PAIN / TEMP Last administered on 04/11/19at 11:41; Start 04/03/19 at 18:30 Ondansetron HCl (Zofran) 4 mg PRN Q6HRS PRN IVP NAUSEA/VOMITING Last administered on 04/04/19at 21:04; Start 04/03/19 at 18:30 Amino Acids/ Glycerin/ Electrolytes 1,000 ml @ 50 mls/hr Q20H IV Last administered on 04/11/19at 15:12; Start 04/06/19 at 12:15 Potassium Chloride (Klor-Con) 40 meq 1X ONCE PO Last administered on 04/07/19 17:40; Start 04/07/19 at 11:45; Stop 04/07/19 at 11:46; Status DC Insulin Human Lispro (HumaLOG) 0-9 UNITS PRN Q6HRS PRN SQ PER SLIDING SCALE; Start 04/10/19 at 11:45; Stop 04/11/19 at 20:56; Status DC Insulin Human Lispro (HumaLOG) 0-9 UNITS TIDWMEALS SQ ; Start 04/12/19 at 08:00 Active Scripts Active Norvasc (Amlodipine Besylate) 5 Mg Tablet 1 Tab PO DAILY Lisinopril 5 Mg Tablet 1 Tab PO DAILY Reported Hydrochlorothiazide Tablet (Hydrochlorothiazide) 25 Mg Tablet 25 Mg PO DAILY Vitals/I & O Vital Sign - Last 24 Hours 04/11/19 04/11/19 04/11/19 04/11/19 11:00 12:02 15:00 15:34 Temp 99.0 98.6 99.0 98.6 Pulse 89 106 Resp 20 18 B/P (MAP) 151/79 (103) 163/74 (103) Pulse Ox 97 96 93 100 O2 Delivery Nasal Cannula Nasal Cannula Nasal Cannula Nasal Cannula O2 Flow Rate 2.0 2.0 2.0 2.0 04/11/19 04/11/19 04/11/19 04/11/19 19:10 20:00 20:00 20:33 Temp 98.4 98.4 Pulse 90 Resp 22 B/P (MAP) 140/57 (84) Pulse Ox 93 97 O2 Delivery Room Air Nasal Cannula Nasal Cannula O2 Flow Rate 2.0 2.0 2.0 04/11/19 04/12/19 04/12/19 04/12/19 23:51 00:11 03:00 07:00 Temp 98.3 98.4 98.3 98.3 98.4 98.3 Pulse 82 95 91 Resp 20 21 21 B/P (MAP) 157/82 (107) 118/74 (89) 142/70 (94) Pulse Ox 96 96 95 96 O2 Delivery Nasal Cannula BiPAP/CPAP Room Air Room Air O2 Flow Rate 2.0 04/12/19 04/12/19 04/12/19 07:14 08:47 08:47 Pulse 91 91 B/P (MAP) 142/70 142/70 Pulse Ox 96 O2 Delivery Nasal Cannula O2 Flow Rate 2.0 Intake and Output 04/11/19 04/11/19 04/12/19 15:00 23:00 07:00 Intake Total 60 ml Output Total 2200 ml Balance -2140 ml ERROL CASILLAS MD Apr 12, 2019 09:47
[2019-04-12 11:00] VITALS: BP 132/82
[2019-04-12 11:35] LABS: BASO # 0.1 x10^3/uL (0.0-0.2); BASO % 1 % (0-3); EOS % 11 % (0-3); HEMATOCRIT 23.8 % (39.0-53.0); HEMOGLOBIN 7.7 g/dL (13.0-17.5); LYMPH # 1.5 x10^3/uL (1.0-4.8); LYMPH % 18 % (24-48); MEAN CORPUSCULAR HEMOGLOBIN 27 pg (25-35); MEAN CORPUSCULAR HGB CONC 33 g/dL (31-37); MEAN CORPUSCULAR VOLUME 82 fL (79-100); MONO # 0.7 x10^3/uL (0.0-1.1); MONO % 8 % (0-9); NEUT # 5.5 x10^3/uL (1.8-7.7); NEUT % 63 % (31-73); PLATELET COUNT 130 x10^3/uL (140-400); RED BLOOD COUNT 2.89 x10^6/uL (4.30-5.70); WHITE BLOOD COUNT 8.7 x10^3/uL (4.0-11.0)
[2019-04-12 12:20] LABS: ANISOCYTOSIS PRESENT; PLT ESTIMATE ADEQUATE (ADEQUATE)
[2019-04-12] MEDS: AMINO AC 3%/ELECTROLYTE/GLYCER 1,000 ML IV SCH ×2 (13:57→20:23)
[2019-04-12 15:00] VITALS: BP 137/71
[2019-04-12 19:20] VITALS: BP 136/69
[2019-04-12 22:50] VITALS: BP 117/59
[2019-04-13 02:35] VITALS: BP 109/59
[2019-04-13 07:00] VITALS: BP_SYST 109; BP_SYST 111; BP_DIAS 59; BP_DIAS 62
[2019-04-13] MEDS: INSULIN LISPRO 300 UNITS/3 ML VIAL. SQ SCH ×3 (08:00→17:00)
[2019-04-13] MEDS: IPRATRPIUM/ALBUTEROL 0.5/2.5MG 3 ML NEBU. NEB SCH ×4 (08:07→20:00)
[2019-04-13] MEDS: AMINO AC 3%/ELECTROLYTE/GLYCER 1,000 ML IV SCH (08:43)
[2019-04-13] MEDS: amLODIPine BESYLATE 10 MG TABLET PO SCH (08:44)
[2019-04-13] MEDS: ASPIRIN CHEWABLE 81 MG TABLET. PO SCH (08:44)
[2019-04-13] MEDS: LISINOPRIL 5 MG TABLET. PO SCH (08:44)
[2019-04-13] MEDS: AMMONIUM LACTATE 12% TOPICAL LOTION 226GM BOTTLE. TP SCH ×2 (08:45→21:49)
[2019-04-13 11:00] VITALS: BP 134/67
--- NOTE | 2019-04-13 11:13 | PDOC ---
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 Increased Troponin Morbid Obesity Pulmonary HTN Tobacco use History of Present Illness History of Present Illness 04/13/19 NAILA fontana today DC tele transfer to floor Vitals Vitals Vital Signs Date Time Temp Pulse Resp B/P (MAP) Pulse Ox O2 Delivery O2 Flow Rate FiO2 04/13/19 08:44 93 111/62 04/13/19 08:30 Nasal Cannula 1.0 04/13/19 08:10 98 04/13/19 07:00 98.3 32 98.3 Physical Exam Physical Exam GENERAL: Orally intubated/ sedated - lightly, HEENT: opened eyes Pupils equal, nml conj OGT/ETT NECK: Supple LUNGS: dec bs at bases HEART: S1 and S2, regular. ABDOMEN: Obese, soft, +BS : Fontana in place fecal tube in place EXTREMITIES: Trace edema - MITTS SKIN: Chronic stasis dermatitis on the lower extremity. NEUROLOGIC: Awake IVS; Old RIJ site clean. RUE - PICC clean General: Alert, Oriented X3, Cooperative, No acute distress, Other (short neck , Mallampati 4 ON VENT) Heart: Regular rate (SR), Normal S1, Normal S2, Other (distante heart sounds) Lungs: Other (decrease bs) Abdomen: Normal bowel sounds, Soft, No tenderness, No hepatosplenomegaly, No masses Extremities: No clubbing, No cyanosis, No edema, Normal pulses, No tenderness/swelling Skin: No rashes, No breakdown, No significant lesion Labs LABS Laboratory Tests Test 04/12/19 11:58 04/12/19 17:16 04/12/19 20:46 04/13/19 07:04 Glucose (Fingerstick) 101 mg/dL (70-99) 93 mg/dL (70-99) 89 mg/dL (70-99) 88 mg/dL (70-99) Assessment and Plan Assessmemt and Plan Problems Medical Problems: (1) CHF exacerbation Status: Acute (2) COPD exacerbation Status: Acute (3) Hypoxia Status: Acute (4) NSTEMI (non-ST elevated myocardial infarction) Status: Acute (5) Respiratory failure Status: Acute Comment Review of Relevant I have reviewed the following items peter (where applicable) has been applied. Labs Laboratory Tests Test 04/12/19 08:00 04/12/19 11:58 04/12/19 17:16 04/12/19 20:46 White Blood Count 8.7 x10^3/uL (4.0-11.0) Red Blood Count 2.89 x10^6/uL (4.30-5.70) Hemoglobin 7.7 g/dL (13.0-17.5) Hematocrit 23.8 % (39.0-53.0) Mean Corpuscular Volume 82 fL (79-100) Mean Corpuscular Hemoglobin 27 pg (25-35) Mean Corpuscular Hemoglobin Concent 33 g/dL (31-37) Red Cell Distribution Width 22.0 % (11.5-14.5) Platelet Count 130 x10^3/uL (140-400) Neutrophils (%) (Auto) 63 % (31-73) Lymphocytes (%) (Auto) 18 % (24-48) Monocytes (%) (Auto) 8 % (0-9) Eosinophils (%) (Auto) 11 % (0-3) Basophils (%) (Auto) 1 % (0-3) Neutrophils # (Auto) 5.5 x10^3/uL (1.8-7.7) Lymphocytes # (Auto) 1.5 x10^3/uL (1.0-4.8) Monocytes # (Auto) 0.7 x10^3/uL (0.0-1.1) Eosinophils # (Auto) 1.0 x10^3/uL (0.0-0.7) Basophils # (Auto) 0.1 x10^3/uL (0.0-0.2) Platelet Estimate Adequate (ADEQUATE) Anisocytosis Present Sodium Level 139 mmol/L (136-145) Potassium Level 3.4 mmol/L (3.5-5.1) Chloride Level 104 mmol/L (98-107) Carbon Dioxide Level 25 mmol/L (21-32) Anion Gap 10 (6-14) Blood Urea Nitrogen 8 mg/dL (8-26) Creatinine 0.6 mg/dL (0.7-1.3) Estimated GFR (Cockcroft-Gault) 174.0 BUN/Creatinine Ratio 13 (6-20) Glucose Level 92 mg/dL (70-99) Calcium Level 8.5 mg/dL (8.5-10.1) Total Bilirubin 1.6 mg/dL (0.2-1.0) Aspartate Amino Transf (AST/SGOT) 16 U/L (15-37) Alanine Aminotransferase (ALT/SGPT) 33 U/L (16-63) Alkaline Phosphatase 76 U/L (46-116) Total Protein 6.0 g/dL (6.4-8.2) Albumin 2.5 g/dL (3.4-5.0) Albumin/Globulin Ratio 0.7 (1.0-1.7) Glucose (Fingerstick) 101 mg/dL (70-99) 93 mg/dL (70-99) 89 mg/dL (70-99) Test 04/13/19 07:04 Glucose (Fingerstick) 88 mg/dL (70-99) Laboratory Tests Test 04/12/19 11:58 04/12/19 17:16 04/12/19 20:46 04/13/19 07:04 Glucose (Fingerstick) 101 mg/dL (70-99) 93 mg/dL (70-99) 89 mg/dL (70-99) 88 mg/dL (70-99) Microbiology 03/16/19 - Final, Complete 03/16/19 - Final, Complete 03/16/19 Gram Stain Evaluation - Final, Complete 03/16/19 Sputum Culture - Final, Complete 03/16/19 Sputum Result 1 - Final, Complete 03/16/19 Blood Culture - Final, Complete NO GROWTH AFTER 5 DAYS 03/09/19 Urine Culture - Final, Complete 03/09/19 Urine Culture Result 1 (WIL) - Final, Complete Medications Current Medications Albuterol/ Ipratropium (Duoneb) 3 ml 1X ONCE NEB Last administered on 03/09/19at 21:21; Start 03/09/19 at 21:30; Stop 03/09/19 at 21:31; Status DC Dexamethasone Sodium Phosphate (Decadron) 10 mg 1X ONCE IV Last administered on 03/09/19at 22:29; Start 03/09/19 at 22:00; Stop 03/09/19 at 22:01; Status DC Propofol 100 ml @ 0 mls/hr CONT PRN IV SEE PROTOCOL Last administered on 03/10/19at 07:19; Start 03/09/19 at 22:30; Stop 03/10/19 at 07:28; Status DC Fentanyl Citrate (Fentanyl 2ml Vial) 50 mcg PRN Q1HR PRN IV SEE COMMENTS; Start 03/09/19 at 22:30; Stop 03/10/19 at 07:28; Status DC Chlorhexidine Gluconate (Peridex) 15 ml BID MM Last administered on 04/05/19at 08:06; Start 03/10/19 at 09:00; Stop 04/05/19 at 11:08; Status DC Famotidine (Pepcid Vial) 20 mg BID IVP Last administered on 04/06/19at 21:27; Start 03/10/19 at 09:00; Stop 04/07/19 at 09:45; Status DC Propofol 50 ml @ As Directed STK-MED ONCE IV ; Start 03/09/19 at 22:28; Stop 03/09/19 at 22:28; Status DC Albuterol/ Ipratropium (Duoneb) 3 ml 1X ONCE NEB Last administered on 03/10/19at 02:04; Start 03/09/19 at 23:00; Stop 03/09/19 at 23:01; Status DC Albuterol/ Ipratropium (Duoneb) 3 ml 1X ONCE NEB Last administered on 03/10/19at 02:04; Start 03/09/19 at 23:00; Stop 03/09/19 at 23:01; Status DC Fentanyl Citrate (Fentanyl 2ml Vial) 100 mcg 1X ONCE IV Last administered on 03/09/19at 23:31; Start 03/09/19 at 23:30; Stop 03/09/19 at 23:31; Status DC Bumetanide (Bumex) 1 mg 1X ONCE IV Last administered on 03/10/19at 00:21; Start 03/10/19 at 00:00; Stop 03/10/19 at 00:01; Status DC Heparin Sodium (Porcine) (Heparin Sodium) 4,000 unit 1X ONCE IV Last administered on 03/10/19at 00:31; Start 03/10/19 at 00:00; Stop 03/10/19 at 00:01; Status DC Heparin Sodium/ Dextrose 500 ml @ 0 mls/hr CONT PRN IV PER PROTOCOL Last administered on 03/10/19at 23:34; Start 03/09/19 at 23:45; Stop 03/11/19 at 16:13; Status DC Heparin Sodium (Porcine) (Heparin Sodium) 5,500 unit PRN Q6HRS PRN IV FOR UFH LEVEL LESS THAN 0.2 Last administered on 03/11/19at 00:57; Start 03/09/19 at 23:45; Stop 03/11/19 at 16:13; Status DC Aspirin (Aspirin Rectal Supp) 300 mg 1X ONCE UT Last administered on 03/10/19at 03:42; Start 03/10/19 at 00:00; Stop 03/10/19 at 00:01; Status DC Propofol 50 ml @ As Directed STK-MED ONCE IV ; Start 03/09/19 at 23:38; Stop 03/09/19 at 23:38; Status DC Propofol 50 ml @ As Directed STK-MED ONCE IV ; Start 03/09/19 at 23:38; Stop 03/09/19 at 23:38; Status DC Piperacillin Sod/ Tazobactam Sod 4.5 gm/Sodium Chloride 100 ml @ 200 mls/hr 1X ONCE IV Last administered on 03/10/19at 05:19; Start 03/10/19 at 00:30; Stop 03/10/19 at 00:59; Status DC Propofol 50 ml @ As Directed STK-MED ONCE IV ; Start 03/10/19 at 00:51; Stop 03/10/19 at 00:51; Status DC Propofol 50 ml @ As Directed STK-MED ONCE IV ; Start 03/10/19 at 01:14; Stop 03/10/19 at 01:15; Status DC Fentanyl Citrate (Fentanyl 2ml Vial) 100 mcg 1X ONCE IV Last administered on 03/10/19at 01:26; Start 03/10/19 at 01:45; Stop 03/10/19 at 01:46; Status DC Clonidine HCl (Catapres) 0.1 mg 1X ONCE PO ; Start 03/10/19 at 01:30; Stop 03/10/19 at 01:34; Status DC Midazolam HCl (Versed) 5 mg 1X ONCE IV Last administered on 03/10/19at 01:28; Start 03/10/19 at 01:30; Stop 03/10/19 at 01:34; Status DC Propofol 50 ml @ As Directed STK-MED ONCE IV ; Start 03/10/19 at 02:08; Stop 03/10/19 at 02:09; Status DC Propofol 50 ml @ As Directed STK-MED ONCE IV ; Start 03/10/19 at 02:36; Stop 03/10/19 at 02:36; Status DC Rocuronium [place] (Zemuron) 50 mg STK-MED ONCE .ROUTE ; Start 03/10/19 at 05:15; Stop 03/10/19 at 05:15; Status DC Etomidate (Amidate) 20 mg STK-MED ONCE IV ; Start 03/10/19 at 05:15; Stop 03/10/19 at 05:16; Status DC Fentanyl Citrate 30 ml @ 0 mls/hr CONT PRN IV SEE PROTOCOL Last administered on 04/03/19at 09:05; Start 03/10/19 at 07:30; Stop 04/07/19 at 09:44; Status DC Propofol 100 ml @ 0 mls/hr CONT PRN IV SEE PROTOCOL Last administered on 04/02/19at 15:10; Start 03/10/19 at 07:30; Stop 04/07/19 at 09:44; Status DC Fentanyl Citrate (Fentanyl 2ml Vial) 25 mcg PRN Q1HR PRN IV SEE COMMENTS; Start 03/10/19 at 07:30; Stop 04/07/19 at 09:44; Status DC Fentanyl Citrate (Fentanyl 2ml Vial) 50 mcg PRN Q1HR PRN IV SEE COMMENTS; Start 03/10/19 at 07:30; Stop 04/07/19 at 09:45; Status DC Artificial Tears (Artificial Tears) 1 drop PRN Q1HR PRN OU DRY EYE, 1ST CHOICE Last administered on 03/13/19at 13:32; Start 03/10/19 at 07:30; Stop 04/07/19 at 09:45; Status DC Famotidine (Pepcid Vial) 20 mg BID IVP ; Start 03/10/19 at 09:00; Status UNV Morphine Sulfate (Morphine Sulfate) 2 mg PRN Q1HR PRN IV SEE COMMENTS. Last administered on 03/25/19at 09:18; Start 03/10/19 at 07:30; Stop 04/07/19 at 09:45; Status DC Morphine Sulfate (Morphine Sulfate) 4 mg PRN Q1HR PRN IV SEE COMMENTS. Last administered on 03/31/19at 10:50; Start 03/10/19 at 07:30; Stop 04/07/19 at 09:45; Status DC Midazolam HCl 100 ml @ 0 mls/hr CONT PRN IV SEE PROTOCOL Last administered on 04/01/19at 02:07; Start 03/10/19 at 07:30; Stop 04/07/19 at 09:45; Status DC Levofloxacin/ Dextrose (Levaquin Per Pharmacy) 1 each PRN DAILY PRN MC SEE COMMENTS; Start 03/10/19 at 08:15; Stop 03/14/19 at 09:25; Status DC Albuterol/ Ipratropium (Duoneb) 3 ml RTQID NEB Last administered on 04/13/19at 08:07; Start 03/10/19 at 12:00 Sodium Chloride 1,000 ml @ 100 mls/hr Q10H IV Last administered on 03/10/19at 23:34; Start 03/10/19 at 08:15; Stop 03/11/19 at 16:02; Status DC Amlodipine Besylate (Norvasc) 5 mg DAILY PO Last administered on 03/10/19at 09:13; Start 03/10/19 at 09:00; Stop 03/10/19 at 10:04; Status DC Hydrochlorothiazide (Hydrodiuril) 25 mg DAILY PO Last administered on 03/10/19at 09:13; Start 03/10/19 at 09:00; Stop 03/10/19 at 10:04; Status DC Lisinopril (Prinivil) 5 mg DAILY PO Last administered on 03/10/19at 09:13; Start 03/10/19 at 09:00; Stop 03/10/19 at 10:04; Status DC Levofloxacin/ Dextrose 100 ml @ 100 mls/hr Q24H IV Last administered on 03/14/19at 08:10; Start 03/10/19 at 09:00; Stop 03/14/19 at 09:25; Status DC Aspirin (Amanda Aspirin) 325 mg 1X ONCE PO Last administered on 03/10/19at 10:55; Start 03/10/19 at 10:30; Stop 03/10/19 at 10:31; Status DC Aspirin (Children'S Aspirin) 81 mg DAILYWBKFT PO Last administered on 04/13/19at 08:44; Start 03/11/19 at 08:00 Amlodipine Besylate (Norvasc) 10 mg DAILY PO Last administered on 03/11/19at 09:37; Start 03/11/19 at 09:00; Stop 03/11/19 at 12:50; Status DC Hydralazine HCl (Apresoline Inj) 10 mg PRN Q4HRS PRN IVP ELEVATED BP, SEE COMMENTS; Start 03/10/19 at 10:15; Stop 03/12/19 at 09:37; Status DC Furosemide (Lasix) 40 mg DAILY IVP Last administered on 03/11/19at 09:37; Start 03/10/19 at 11:00; Stop 03/11/19 at 11:24; Status DC Insulin Human Lispro (HumaLOG) 0-9 UNITS TIDWMEALS SQ ; Start 03/10/19 at 12:00; Stop 03/10/19 at 17:57; Status DC Dextrose (Dextrose 50%-Water Syringe) 12.5 gm PRN Q15MIN PRN IV SEE COMMENTS; Start 03/10/19 at 11:15; Stop 03/12/19 at 16:47; Status DC Dextrose 250 ml PRN Q15MIN PRN IV SEE COMMENTS; Start 03/10/19 at 11:15; Stop 03/10/19 at 11:05; Status DC Iohexol (Omnipaque 350 Mg/ml) 100 ml 1X ONCE IV Last administered on 03/10/19at 14:05; Start 03/10/19 at 11:45; Stop 03/10/19 at 11:47; Status DC Info (CONTRAST GIVEN -- Rx MONITORING) 1 each PRN DAILY PRN MC SEE COMMENTS; Start 03/10/19 at 11:45; Stop 03/12/19 at 11:44; Status DC Piperacillin Sod/ Tazobactam Sod (Zosyn Per Pharmacy) 1 each PRN DAILY PRN MC SEE COMMENTS; Start 03/10/19 at 11:45; Stop 03/25/19 at 08:36; Status DC Vancomycin HCl (Vanco Per Pharmacy) 1 each PRN DAILY PRN MC SEE COMMENTS Last administered on 03/11/19at 09:42; Start 03/10/19 at 11:45; Stop 03/11/19 at 13:57; Status DC Vancomycin HCl 2 gm/Sodium Chloride 500 ml @ 250 mls/hr 1X ONCE IV Last administered on 03/10/19at 12:41; Start 03/10/19 at 13:00; Stop 03/10/19 at 14:59; Status DC Piperacillin Sod/ Tazobactam Sod 3.375 gm/Sodium Chloride 50 ml @ 100 mls/hr Q6HRS IV Last administered on 03/24/19at 05:45; Start 03/10/19 at 12:30; Stop 03/24/19 at 07:24; Status DC Vancomycin HCl 1.75 gm/Sodium Chloride 500 ml @ 250 mls/hr Q12H IV Last administered on 03/11/19at 12:43; Start 03/11/19 at 01:00; Stop 03/11/19 at 13:57; Status DC Vancomycin HCl (Vancomycin Trough Level) 1 each 1X ONCE MC ; Start 03/12/19 at 12:30; Stop 03/12/19 at 12:31; Status Cancel Insulin Human Lispro (HumaLOG) 0-9 UNITS Q6HRS SQ ; Start 03/11/19 at 00:00; Stop 03/27/19 at 09:06; Status DC Magnesium Sulfate/ Dextrose 100 ml @ 50 mls/hr DAILY IV Last administered on 03/11/19at 09:28; Start 03/11/19 at 09:00; Stop 03/14/19 at 08:59; Status DC Potassium Phosphate 27.2 mmol/Sodium Chloride 259.0667 ml @ 64.753 m... 1X ONCE IV Last administered on 03/11/19at 09:28; Start 03/11/19 at 10:00; Stop 03/11/19 at 14:00; Status DC Potassium Phosphate 27.2 mmol/Sodium Chloride 259.0667 ml @ 64.753 m... 1X ONCE IV ; Start 03/11/19 at 14:00; Stop 03/11/19 at 18:00; Status DC Lorazepam (Ativan Inj) 1 mg PRN Q1HR PRN IV ANXIETY Last administered on 03/14/19at 16:32; Start 03/11/19 at 11:00; Stop 03/19/19 at 10:31; Status DC Sodium Chloride 1,000 ml @ 1,000 mls/hr 1X ONCE IV Last administered on 03/11/19at 12:06; Start 03/11/19 at 11:30; Stop 03/11/19 at 12:29; Status DC Norepinephrine Bitartrate 250 ml @ 27.837 mls/ hr CONT PRN IV SEE I/O RECORD Last administered on 03/13/19at 04:13; Start 03/11/19 at 13:00; Stop 03/26/19 at 09:22; Status DC Hydralazine HCl (Apresoline Inj) 10 mg PRN Q4HRS PRN IVP ELEVATED BP, SEE COMMENTS Last administered on 04/08/19at 23:31; Start 03/11/19 at 13:00 Linezolid/Dextrose 300 ml @ 300 mls/hr Q12HR IV Last administered on 03/22/19at 21:38; Start 03/11/19 at 21:00; Stop 03/23/19 at 07:48; Status DC Potassium Chloride/Water 50 ml @ 50 mls/hr Q1H IV Last administered on 03/11/19at 17:28; Start 03/11/19 at 16:00; Stop 03/11/19 at 17:59; Status DC Heparin Sodium (Porcine) (Heparin Sodium) 5,000 unit Q8HRS SQ Last administered on 04/07/19at 05:53; Start 03/11/19 at 22:00; Stop 04/07/19 at 09:45; Status DC Multi-Ingred Cream/Lotion/Oil/ Oint (Artificial Tears Eye Ointment) 1 zuri PRN Q1HR PRN OU DRY EYE; Start 03/12/19 at 09:00 Potassium Chloride/Water 50 ml @ 50 mls/hr 1X ONCE IV Last administered on 03/12/19at 09:44; Start 03/12/19 at 10:00; Stop 03/12/19 at 10:59; Status DC Potassium Chloride/Water 50 ml @ 50 mls/hr 1X ONCE IV ; Start 03/12/19 at 10:30; Stop 03/12/19 at 11:31; Status DC Insulin Human Lispro (HumaLOG) 0-9 UNITS TIDWMEALS SQ ; Start 03/12/19 at 17:00; Stop 03/12/19 at 16:24; Status DC Dextrose (Dextrose 50%-Water Syringe) 12.5 gm PRN Q15MIN PRN IV SEE COMMENTS; Start 03/12/19 at 16:15 Dextrose 250 ml PRN Q15MIN PRN IV SEE COMMENTS; Start 03/12/19 at 16:15; Stop 03/27/19 at 08:59; Status DC Insulin Human Lispro (HumaLOG) 0-9 UNITS Q6HRS SQ Last administered on 03/26/19at 00:37; Start 03/12/19 at 18:00; Stop 04/10/19 at 11:37; Status DC Dexmedetomidine HCl 400 mcg/ Sodium Chloride 100 ml @ 0 mls/hr CONT PRN IV ANXIETY / AGITATION Last administered on 03/21/19at 04:33; Start 03/12/19 at 20:30; Stop 03/26/19 at 09:22; Status DC Sodium Chloride 500 ml @ 500 mls/hr 1X PRN PRN IV see comments Last administered on 03/12/19at 23:22; Start 03/12/19 at 20:30; Stop 03/30/19 at 14:05; Status DC Atropine Sulfate (ATROPINE 0.5mg SYRINGE) 0.5 mg PRN Q5MIN PRN IV SEE COMMENTS; Start 03/12/19 at 20:30; Stop 03/30/19 at 14:06; Status DC Vecuronium [place] (Norcuron Bolus) 10 mg PRN Q1HR PRN IV OVERBREATHING VENT Last administered on 03/25/19at 10:49; Start 03/13/19 at 07:30; Stop 04/07/19 at 09:45; Status DC Perflutren Protein Type A Microsphe (Optison) 0.66 mg STK-MED ONCE IV ; Start 03/13/19 at 09:08; Stop 03/13/19 at 09:08; Status DC Perflutren Protein Type A Microsphe (Optison) 0.66 mg 1X ONCE IV Last administered on 03/13/19at 09:40; Start 03/13/19 at 09:15; Stop 03/13/19 at 09:16; Status DC Furosemide (Lasix) 40 mg 1X ONCE IVP Last administered on 03/13/19at 13:32; Start 03/13/19 at 10:30; Stop 03/13/19 at 10:31; Status DC Daptomycin 1320 mg/Sodium Chloride 50 ml @ 100 mls/hr ONCE ONCE IV Last administered on 03/15/19at 13:53; Start 03/15/19 at 13:00; Stop 03/16/19 at 09:33; Status DC Daptomycin 1340 mg/Sodium Chloride 50 ml @ 100 mls/hr Q24H IV ; Start 03/16/19 at 08:45; Status UNV Daptomycin 1340 mg/Sodium Chloride 50 ml @ 100 mls/hr Q24H IV ; Start 03/16/19 at 09:00; Status Cancel Daptomycin 830 mg/ Sodium Chloride 50 ml @ 100 mls/hr Q24H IV Last administered on 03/18/19at 15:03; Start 03/16/19 at 14:00; Stop 03/19/19 at 07:41; Status DC Methylprednisolone Sodium Succinate (SOLU-Medrol 125MG VIAL) 100 mg Q8HRS IV Last administered on 03/23/19at 05:54; Start 03/16/19 at 12:00; Stop 03/23/19 at 12:03; Status DC Furosemide (Lasix) 40 mg 1X ONCE IVP Last administered on 03/16/19at 16:46; Start 03/16/19 at 16:30; Stop 03/16/19 at 16:31; Status DC Fentanyl Citrate (Fentanyl 600 Mcg/30 ml OPTOMETRY DOCTOR) 600 mcg STK-MED ONCE IV ; Start 03/13/19 at 17:00; Stop 03/17/19 at 11:02; Status DC Furosemide 100 mg/ Sodium Chloride 100 ml @ 5 mls/hr CONT PRN IV SEE I/O RECORD Last administered on 03/18/19at 00:20; Start 03/17/19 at 15:45; Stop 03/18/19 at 10:36; Status DC Furosemide 100 mg/ Sodium Chloride 100 ml @ 5 mls/hr CONT PRN IV SEE I/O RECORD Last administered on 03/21/19at 08:34; Start 03/18/19 at 10:45; Stop 03/21/19 at 12:57; Status DC Lorazepam (Ativan Inj) 2 mg PRN Q1HR PRN IV ANXIETY Last administered on 04/04/19at 00:30; Start 03/19/19 at 10:45; Stop 04/07/19 at 09:45; Status DC Lisinopril (Prinivil) 5 mg DAILY PO Last administered on 04/13/19at 08:44; Start 03/21/19 at 11:30 Amlodipine Besylate (Norvasc) 10 mg DAILY PO Last administered on 04/13/19at 08:44; Start 03/21/19 at 11:30 Furosemide 100 mg/ Sodium Chloride 100 ml @ 10 mls/hr CONT PRN IV SEE I/O RECORD Last administered on 03/22/19at 05:05; Start 03/21/19 at 16:00; Stop 03/22/19 at 12:39; Status DC Scopolamine (Transderm-Scop) 1 patch Q3DAYS TD Last administered on 04/06/19at 10:24; Start 03/22/19 at 11:00; Stop 04/07/19 at 09:45; Status DC Furosemide 100 mg/ Sodium Chloride 100 ml @ 5 mls/hr CONT PRN IV SEE I/O RECORD Last administered on 03/22/19at 21:38; Start 03/22/19 at 12:45; Stop 03/23/19 at 17:48; Status DC Methylprednisolone Sodium Succinate (SOLU-Medrol 125MG VIAL) 50 mg Q8HRS IV Last administered on 03/27/19at 05:30; Start 03/23/19 at 14:00; Stop 03/27/19 at 11:20; Status DC Insulin Human Lispro (HumaLOG) 0-5 UNITS TIDWMEALS SQ ; Start 03/27/19 at 09:30; Status Cancel Dextrose (Dextrose 50%-Water Syringe) 12.5 gm PRN Q15MIN PRN IV SEE COMMENTS; Start 03/27/19 at 09:00; Status Cancel Dextrose 250 ml PRN Q15MIN PRN IV SEE COMMENTS; Start 03/27/19 at 09:00; Status Cancel Methylprednisolone Sodium Succinate (SOLU-Medrol 40MG VIAL) 30 mg Q8HRS IV Last administered on 04/02/19at 06:28; Start 03/27/19 at 14:00; Stop 04/02/19 at 11:19; Status DC Furosemide (Lasix) 40 mg 1X ONCE IVP Last administered on 03/27/19at 11:58; Start 03/27/19 at 12:00; Stop 03/27/19 at 12:01; Status DC Furosemide (Lasix) 40 mg 1X ONCE IVP Last administered on 03/28/19at 10:15; Start 03/28/19 at 09:30; Stop 03/28/19 at 09:46; Status DC Furosemide (Lasix) 40 mg 1X ONCE IVP Last administered on 03/29/19at 09:44; Start 03/29/19 at 09:30; Stop 03/29/19 at 09:31; Status DC Sodium Chloride 1,000 ml @ 1,000 mls/hr 1X ONCE IV Last administered on 03/29/19at 20:41; Start 03/29/19 at 20:30; Stop 03/29/19 at 21:29; Status DC Norepinephrine Bitartrate 250 ml @ 38.554 mls/ hr CONT PRN IV SEE I/O RECORD; Start 03/29/19 at 20:30; Stop 04/12/19 at 13:41; Status DC Furosemide (Lasix) 40 mg 1X ONCE IVP Last administered on 03/30/19at 10:42; Start 03/30/19 at 10:15; Stop 03/30/19 at 10:16; Status DC Sodium Bicarbonate (Sodium Bicarb Adult 8.4% Syr) 50 meq STK-MED ONCE .ROUTE ; Start 03/31/19 at 17:28; Stop 03/31/19 at 17:29; Status DC Lactic Acid (Lac-Hydrin) 1 zuri BID TP Last administered on 04/13/19at 08:45; Start 04/01/19 at 21:00 Methylprednisolone Sodium Succinate (SOLU-Medrol 40MG VIAL) 30 mg DAILY IV Last administered on 04/07/19at 05:47; Start 04/03/19 at 09:00; Stop 04/07/19 at 09:45; Status DC Furosemide (Lasix) 40 mg 1X ONCE IVP Last administered on 04/02/19at 12:09; Start 04/02/19 at 11:30; Stop 04/02/19 at 11:35; Status DC Furosemide (Lasix) 40 mg 1X ONCE IVP ; Start 04/02/19 at 12:00; Stop 04/02/19 at 12:01; Status DC Dexmedetomidine HCl 400 mcg/ Sodium Chloride 100 ml @ 0 mls/hr CONT PRN IV ANXIETY / AGITATION Last administered on 04/03/19at 11:03; Start 04/02/19 at 16:00; Stop 04/07/19 at 09:45; Status DC Sodium Chloride 1,000 ml @ 1,000 mls/hr 1X ONCE IV Last administered on 04/02/19at 22:00; Start 04/02/19 at 22:00; Stop 04/02/19 at 22:59; Status DC Ondansetron HCl (Zofran) 4 mg 1X ONCE IM Last administered on 04/03/19at 12:39; Start 04/03/19 at 12:45; Stop 04/03/19 at 12:46; Status DC Acetaminophen (Tylenol) 500 mg PRN Q6HRS PRN PO MILD PAIN / TEMP Last administered on 04/11/19at 11:41; Start 04/03/19 at 18:30 Ondansetron HCl (Zofran) 4 mg PRN Q6HRS PRN IVP NAUSEA/VOMITING Last administered on 04/04/19at 21:04; Start 04/03/19 at 18:30 Amino Acids/ Glycerin/ Electrolytes 1,000 ml @ 50 mls/hr Q20H IV Last administered on 04/13/19at 08:43; Start 04/06/19 at 12:15 Potassium Chloride (Klor-Con) 40 meq 1X ONCE PO Last administered on 04/07/19at 17:40; Start 04/07/19 at 11:45; Stop 04/07/19 at 11:46; Status DC Insulin Human Lispro (HumaLOG) 0-9 UNITS PRN Q6HRS PRN SQ PER SLIDING SCALE; Start 04/10/19 at 11:45; Stop 04/11/19 at 20:56; Status DC Insulin Human Lispro (HumaLOG) 0-9 UNITS TIDWMEALS SQ ; Start 04/12/19 at 08:00 Active Scripts Active Norvasc (Amlodipine Besylate) 5 Mg Tablet 1 Tab PO DAILY Lisinopril 5 Mg Tablet 1 Tab PO DAILY Reported Hydrochlorothiazide Tablet (Hydrochlorothiazide) 25 Mg Tablet 25 Mg PO DAILY Vitals/I & O Vital Sign - Last 24 Hours 04/12/19 04/12/19 04/12/19 04/12/19 11:33 15:00 15:46 19:16 Temp 99.2 99.2 Pulse 83 Resp 21 B/P (MAP) 137/71 (93) Pulse Ox 94 97 94 94 O2 Delivery Nasal Cannula Room Air Nasal Cannula Room Air O2 Flow Rate 1.0 1.0 04/12/19 04/12/19 04/12/19 04/12/19 19:20 20:00 20:00 22:50 Temp 98.6 98.8 98.6 98.8 Pulse 86 104 Resp 24 22 B/P (MAP) 136/69 (91) 117/59 (78) Pulse Ox 95 94 O2 Delivery Room Air Nasal Cannula Room Air O2 Flow Rate 1.0 1.0 04/13/19 04/13/19 04/13/19 04/13/19 00:07 01:35 02:35 03:41 Temp 99.4 99.4 Pulse 96 Resp 32 B/P (MAP) 109/59 (76) Pulse Ox 92 O2 Delivery BiPAP/CPAP BiPAP/CPAP BiPAP/CPAP BiPAP/CPAP 04/13/19 04/13/19 04/13/19 04/13/19 07:00 08:10 08:30 08:44 Temp 98.3 98.3 Pulse 91 92 Resp 32 B/P (MAP) 111/62 (78) 111/62 Pulse Ox 97 98 O2 Delivery BiPAP/CPAP Nasal Cannula Nasal Cannula O2 Flow Rate 2.0 1.0 04/13/19 08:44 Pulse 93 B/P (MAP) 111/62 Intake and Output 04/12/19 04/12/19 04/13/19 15:00 23:00 07:00 Intake Total 840 ml Output Total 750 ml Balance 90 ml ERROL CASILLAS MD Apr 13, 2019 11:13
--- NOTE | 2019-04-13 13:36 | PDOC ---
PROGRESS NOTES Assessment Assessment Myoclonic movements. Respiratory failure. ARDS. DM. HTN. COPD. SHARON. Morbid obesity. Vaping. RECOMMENDATIONS/PLAN: Continue ASA daily. Continue medical treatment. OT/PT. Weight reduction. Objective: Not observed myoclonic movement on 04/13/19. PAST MEDICAL HISTORY: Hypertension. Ascending thoracic aorta 4.4 cm. Chronic lymphedema. History of congestive heart failure. Chronic obstructive pulmonary disease. Obstructive sleep apnea. ALLERGIES: No known allergies to drugs. FAMILY HISTORY: Hypertension. SOCIAL HISTORY: He smokes less than a pack a day. He does not drink alcohol or use recreational drugs. PAST SURGICAL HISTORY: No major surgery recently. MEDICATIONS: Refer to [facility] REVIEW OF SYSTEMS: Constitutional: Morbid obesity. Head: No recent traumatic brain or head injury. Skin: No edema, or rash. Ear: No infection. Eyes: No vision loss, or diplopia. Nose: No bleeding or purulent discharges. Hearing: No hearing decrease. Neck: No injury. Cardiac: HTN Pulmonary: COPD. GI: No GI Ulcer, GI bleeding Urinary/genital: No dysuria, incontinence, urinary retention. Endocrine: Diabetes Mellitus. Skeletomuscular: No muscular atrophy. Neurological: see HP. Psychiatric: Denies drug use/abuse. Otherwise, not [id number] review of systems. PHYSICAL EXAMINATION: General appearance in subacute distress. HEENT: Normocephalic and nontraumatic. Eyes, nose, ears, and throat are unremarkable. Neck is supple. No lymphadenopathy. No Crepitus. Cardiovascular: S1, S2, regular rate and rhythm. Pulmonary: Mildly decreased to auscultation bilaterally. Abdomen: Bowel sounds are positive. Abdomen is soft, nontender, and nondistended. Extremities: Chronic significant skin changes as venous stasis in LE. NEUROLOGICAL EXAMINATION: Awake. Oriented partially to time, place and person. PERRL. EOMI. CN: no focal findings. Muscle tone: within normal. Muscle strength: 4-5 UE, 2+ LE DTR: 0-1 Plantar reflex: Flexor response bilaterally Gait: not examined in bed. Sensory exam: no acute abnormal findings. No cerebellar signs elicited. F-T-N test fine. Objective Objective Vital Signs Date Time Temp Pulse Resp B/P (MAP) Pulse Ox O2 Delivery O2 Flow Rate FiO2 04/13/19 12:13 98 Nasal Cannula 2.0 04/13/19 11:00 98.5 91 32 134/67 (89) 98.5 Intake and Output 04/13/19 07:00 Intake Total 840 ml Output Total 750 ml Balance 90 ml Intake Oral 240 ml Other 600 ml Output Urine Total 750 ml # Bowel Movements 1 Vitals Signs Vitals VS - Last 72 Hours, by Label Date Time Temp Pulse Resp B/P (MAP) Pulse Ox O2 Delivery O2 Flow Rate FiO2 04/13/19 12:13 98 Nasal Cannula 2.0 04/13/19 11:00 98.5 91 32 134/67 (89) 96 Nasal Cannula 98.5 04/13/19 08:44 93 111/62 04/13/19 08:44 92 111/62 04/13/19 08:30 Nasal Cannula 1.0 04/13/19 08:10 98 Nasal Cannula 2.0 04/13/19 07:00 98.3 91 32 111/62 (78) 97 BiPAP/CPAP 98.3 04/13/19 03:41 BiPAP/CPAP 04/13/19 02:35 99.4 96 32 109/59 (76) 92 BiPAP/CPAP 99.4 04/13/19 01:35 BiPAP/CPAP 04/13/19 00:07 BiPAP/CPAP 04/12/19 22:50 98.8 104 22 117/59 (78) 94 Room Air 98.8 04/12/19 20:00 1.0 04/12/19 20:00 Nasal Cannula 1.0 04/12/19 19:20 98.6 86 24 136/69 (91) 95 Room Air 98.6 04/12/19 19:16 94 Room Air 04/12/19 15:46 94 Nasal Cannula 1.0 04/12/19 15:00 99.2 83 21 137/71 (93) 97 Room Air 99.2 04/12/19 11:33 94 Nasal Cannula 1.0 04/12/19 11:00 98.4 93 21 132/82 (99) 91 Room Air 98.4 04/12/19 08:47 91 142/70 04/12/19 08:47 91 142/70 04/12/19 08:00 Nasal Cannula 1.0 04/12/19 07:14 96 Nasal Cannula 2.0 04/12/19 07:00 98.3 91 21 142/70 (94) 96 Room Air 98.3 Laboratory Laboratory Laboratory Tests Test 04/12/19 17:16 04/12/19 20:46 04/13/19 07:04 04/13/19 11:44 Glucose (Fingerstick) 93 mg/dL (70-99) 89 mg/dL (70-99) 88 mg/dL (70-99) 130 mg/dL (70-99) Microbiology 03/16/19 - Final, Complete 03/16/19 - Final, Complete 03/16/19 Gram Stain Evaluation - Final, Complete 03/16/19 Sputum Culture - Final, Complete 03/16/19 Sputum Result 1 - Final, Complete 03/16/19 Blood Culture - Final, Complete NO GROWTH AFTER 5 DAYS 03/09/19 Urine Culture - Final, Complete 03/09/19 Urine Culture Result 1 (WIL) - Final, Complete Comment Review of Relevant I have reviewed the following items peter (where applicable) has been applied. MARLENA MCFARLANE MD Apr 13, 2019 13:36
[2019-04-13 15:00] VITALS: BP 153/191
[2019-04-13 19:00] VITALS: BP 99/50
[2019-04-13 22:51] VITALS: BP 113/71
[2019-04-14 03:00] VITALS: BP 137/78
[2019-04-14 07:00] VITALS: BP 122/67
[2019-04-14] MEDS: IPRATRPIUM/ALBUTEROL 0.5/2.5MG 3 ML NEBU. NEB SCH ×4 (07:32→19:53)
[2019-04-14] MEDS: INSULIN LISPRO 300 UNITS/3 ML VIAL. SQ SCH ×3 (08:00→16:43)
[2019-04-14] MEDS: LISINOPRIL 5 MG TABLET. PO SCH (08:19)
[2019-04-14] MEDS: ASPIRIN CHEWABLE 81 MG TABLET. PO SCH (08:19)
--- NOTE | 2019-04-14 08:19 | NUR ---
SW following pt. Pt is a transfer from ICU. PT/OT recommends acute rehab but pt is self pay. Will continue to follow to assist with dc plan as needed.
[2019-04-14] MEDS: amLODIPine BESYLATE 10 MG TABLET PO SCH (08:24)
--- NOTE | 2019-04-14 10:40 | PDOC ---
PROGRESS NOTES Chief Complaint Chief Complaint IMPRESSION Acute Hypercapnic Respiratory Failure/ARDS due to vaping Pulmonary Edema Bilateral Lung Infiltrates Obstructive sleep apnea OSMAN Increased Troponin Morbid Obesity Pulmonary HTN Tobacco use History of Present Illness History of Present Illness 04/14/19 DC fontana DC tele transfer to floor HALF-WAY PLACEMENT PLANNED 28 MIN PT EXAM, CHART REVIEW, > 50% OF TIME WITH EXAM, CHART REVIEW, PT CARE COORDINATION Vitals Vitals Vital Signs Date Time Temp Pulse Resp B/P (MAP) Pulse Ox O2 Delivery O2 Flow Rate FiO2 04/14/19 08:30 Nasal Cannula 1.0 04/14/19 08:24 91 122/67 04/14/19 07:33 95 04/14/19 07:00 98.1 18 98.1 Physical Exam Physical Exam GENERAL: Orally intubated/ sedated - lightly, HEENT: opened eyes Pupils equal, nml conj OGT/ETT NECK: Supple LUNGS: dec bs at bases HEART: S1 and S2, regular. ABDOMEN: Obese, soft, +BS : Fontana in place fecal tube in place EXTREMITIES: Trace edema - MITTS SKIN: Chronic stasis dermatitis on the lower extremity. NEUROLOGIC: Awake IVS; Old RIJ site clean. RUE - PICC clean General: Alert, Oriented X3, Cooperative, No acute distress, Other (short neck , Mallampati 4 ON VENT) Heart: Regular rate (SR), Normal S1, Normal S2, Other (distante heart sounds) Lungs: Crackles, Other (decrease bs) Abdomen: Normal bowel sounds, Soft, No tenderness, No hepatosplenomegaly, No masses Extremities: No clubbing, No cyanosis, No edema, Normal pulses, No tenderness/swelling Skin: No rashes, No breakdown, No significant lesion Labs LABS Laboratory Tests Test 04/13/19 11:44 04/13/19 17:00 04/13/19 20:46 04/14/19 07:25 Glucose (Fingerstick) 130 mg/dL (70-99) 100 mg/dL (70-99) 107 mg/dL (70-99) 95 mg/dL (70-99) Assessment and Plan Assessmemt and Plan Problems Medical Problems: (1) CHF exacerbation Status: Acute (2) COPD exacerbation Status: Acute (3) Hypoxia Status: Acute (4) NSTEMI (non-ST elevated myocardial infarction) Status: Acute (5) Respiratory failure Status: Acute Comment Review of Relevant I have reviewed the following items peter (where applicable) has been applied. Labs Laboratory Tests Test 04/12/19 11:58 04/12/19 17:16 04/12/19 20:46 04/13/19 07:04 Glucose (Fingerstick) 101 mg/dL (70-99) 93 mg/dL (70-99) 89 mg/dL (70-99) 88 mg/dL (70-99) Test 04/13/19 11:44 04/13/19 17:00 04/13/19 20:46 04/14/19 07:25 Glucose (Fingerstick) 130 mg/dL (70-99) 100 mg/dL (70-99) 107 mg/dL (70-99) 95 mg/dL (70-99) Laboratory Tests Test 04/13/19 11:44 04/13/19 17:00 04/13/19 20:46 04/14/19 07:25 Glucose (Fingerstick) 130 mg/dL (70-99) 100 mg/dL (70-99) 107 mg/dL (70-99) 95 mg/dL (70-99) Microbiology 03/16/19 - Final, Complete 03/16/19 - Final, Complete 03/16/19 Gram Stain Evaluation - Final, Complete 03/16/19 Sputum Culture - Final, Complete 03/16/19 Sputum Result 1 - Final, Complete 03/16/19 Blood Culture - Final, Complete NO GROWTH AFTER 5 DAYS 03/09/19 Urine Culture - Final, Complete 03/09/19 Urine Culture Result 1 (WIL) - Final, Complete Medications Current Medications Albuterol/ Ipratropium (Duoneb) 3 ml 1X ONCE NEB Last administered on 03/09/19at 21:21; Start 03/09/19 at 21:30; Stop 03/09/19 at 21:31; Status DC Dexamethasone Sodium Phosphate (Decadron) 10 mg 1X ONCE IV Last administered on 03/09/19at 22:29; Start 03/09/19 at 22:00; Stop 03/09/19 at 22:01; Status DC Propofol 100 ml @ 0 mls/hr CONT PRN IV SEE PROTOCOL Last administered on 03/10/19at 07:19; Start 03/09/19 at 22:30; Stop 03/10/19 at 07:28; Status DC Fentanyl Citrate (Fentanyl 2ml Vial) 50 mcg PRN Q1HR PRN IV SEE COMMENTS; Start 03/09/19 at 22:30; Stop 03/10/19 at 07:28; Status DC Chlorhexidine Gluconate (Peridex) 15 ml BID MM Last administered on 04/05/19at 08:06; Start 03/10/19 at 09:00; Stop 04/05/19 at 11:08; Status DC Famotidine (Pepcid Vial) 20 mg BID IVP Last administered on 04/06/19at 21:27; Start 03/10/19 at 09:00; Stop 04/07/19 at 09:45; Status DC Propofol 50 ml @ As Directed STK-MED ONCE IV ; Start 03/09/19 at 22:28; Stop 03/09/19 at 22:28; Status DC Albuterol/ Ipratropium (Duoneb) 3 ml 1X ONCE NEB Last administered on 03/10/19at 02:04; Start 03/09/19 at 23:00; Stop 03/09/19 at 23:01; Status DC Albuterol/ Ipratropium (Duoneb) 3 ml 1X ONCE NEB Last administered on 03/10/19at 02:04; Start 03/09/19 at 23:00; Stop 03/09/19 at 23:01; Status DC Fentanyl Citrate (Fentanyl 2ml Vial) 100 mcg 1X ONCE IV Last administered on 03/09/19at 23:31; Start 03/09/19 at 23:30; Stop 03/09/19 at 23:31; Status DC Bumetanide (Bumex) 1 mg 1X ONCE IV Last administered on 03/10/19at 00:21; Start 03/10/19 at 00:00; Stop 03/10/19 at 00:01; Status DC Heparin Sodium (Porcine) (Heparin Sodium) 4,000 unit 1X ONCE IV Last administered on 03/10/19at 00:31; Start 03/10/19 at 00:00; Stop 03/10/19 at 00:01; Status DC Heparin Sodium/ Dextrose 500 ml @ 0 mls/hr CONT PRN IV PER PROTOCOL Last administered on 03/10/19at 23:34; Start 03/09/19 at 23:45; Stop 03/11/19 at 16:13; Status DC Heparin Sodium (Porcine) (Heparin Sodium) 5,500 unit PRN Q6HRS PRN IV FOR UFH LEVEL LESS THAN 0.2 Last administered on 03/11/19at 00:57; Start 03/09/19 at 23:45; Stop 03/11/19 at 16:13; Status DC Aspirin (Aspirin Rectal Supp) 300 mg 1X ONCE MD Last administered on 03/10/19at 03:42; Start 03/10/19 at 00:00; Stop 03/10/19 at 00:01; Status DC Propofol 50 ml @ As Directed STK-MED ONCE IV ; Start 03/09/19 at 23:38; Stop 03/09/19 at 23:38; Status DC Propofol 50 ml @ As Directed STK-MED ONCE IV ; Start 03/09/19 at 23:38; Stop 03/09/19 at 23:38; Status DC Piperacillin Sod/ Tazobactam Sod 4.5 gm/Sodium Chloride 100 ml @ 200 mls/hr 1X ONCE IV Last administered on 03/10/19at 05:19; Start 03/10/19 at 00:30; Stop 03/10/19 at 00:59; Status DC Propofol 50 ml @ As Directed STK-MED ONCE IV ; Start 03/10/19 at 00:51; Stop 03/10/19 at 00:51; Status DC Propofol 50 ml @ As Directed STK-MED ONCE IV ; Start 03/10/19 at 01:14; Stop 03/10/19 at 01:15; Status DC Fentanyl Citrate (Fentanyl 2ml Vial) 100 mcg 1X ONCE IV Last administered on 03/10/19at 01:26; Start 03/10/19 at 01:45; Stop 03/10/19 at 01:46; Status DC Clonidine HCl (Catapres) 0.1 mg 1X ONCE PO ; Start 03/10/19 at 01:30; Stop 03/10/19 at 01:34; Status DC Midazolam HCl (Versed) 5 mg 1X ONCE IV Last administered on 03/10/19at 01:28; Start 03/10/19 at 01:30; Stop 03/10/19 at 01:34; Status DC Propofol 50 ml @ As Directed STK-MED ONCE IV ; Start 03/10/19 at 02:08; Stop 03/10/19 at 02:09; Status DC Propofol 50 ml @ As Directed STK-MED ONCE IV ; Start 03/10/19 at 02:36; Stop 03/10/19 at 02:36; Status DC Rocuronium [place] (Zemuron) 50 mg STK-MED ONCE .ROUTE ; Start 03/10/19 at 05:15; Stop 03/10/19 at 05:15; Status DC Etomidate (Amidate) 20 mg STK-MED ONCE IV ; Start 03/10/19 at 05:15; Stop 03/10/19 at 05:16; Status DC Fentanyl Citrate 30 ml @ 0 mls/hr CONT PRN IV SEE PROTOCOL Last administered on 04/03/19at 09:05; Start 03/10/19 at 07:30; Stop 04/07/19 at 09:44; Status DC Propofol 100 ml @ 0 mls/hr CONT PRN IV SEE PROTOCOL Last administered on 04/02at 15:10; Start 03/10/19 at 07:30; Stop 04/07/19 at 09:44; Status DC Fentanyl Citrate (Fentanyl 2ml Vial) 25 mcg PRN Q1HR PRN IV SEE COMMENTS; Start 03/10/19 at 07:30; Stop 04/07/19 at 09:44; Status DC Fentanyl Citrate (Fentanyl 2ml Vial) 50 mcg PRN Q1HR PRN IV SEE COMMENTS; Start 03/10/19 at 07:30; Stop 04/07/19 at 09:45; Status DC Artificial Tears (Artificial Tears) 1 drop PRN Q1HR PRN OU DRY EYE, 1ST CHOICE Last administered on 03/13/19at 13:32; Start 03/10/19 at 07:30; Stop 04/07/19 at 09:45; Status DC Famotidine (Pepcid Vial) 20 mg BID IVP ; Start 03/10/19 at 09:00; Status UNV Morphine Sulfate (Morphine Sulfate) 2 mg PRN Q1HR PRN IV SEE COMMENTS. Last administered on 03/25/19at 09:18; Start 03/10/19 at 07:30; Stop 04/07/19 at 09:45; Status DC Morphine Sulfate (Morphine Sulfate) 4 mg PRN Q1HR PRN IV SEE COMMENTS. Last administered on 03/31/19at 10:50; Start 03/10/19 at 07:30; Stop 04/07/19 at 09:45; Status DC Midazolam HCl 100 ml @ 0 mls/hr CONT PRN IV SEE PROTOCOL Last administered on 04/01/19at 02:07; Start 03/10/19 at 07:30; Stop 04/07/19 at 09:45; Status DC Levofloxacin/ Dextrose (Levaquin Per Pharmacy) 1 each PRN DAILY PRN MC SEE COMMENTS; Start 03/10/19 at 08:15; Stop 03/14/19 at 09:25; Status DC Albuterol/ Ipratropium (Duoneb) 3 ml RTQID NEB Last administered on 04/14/19at 07:32; Start 03/10/19 at 12:00 Sodium Chloride 1,000 ml @ 100 mls/hr Q10H IV Last administered on 03/10/19at 23:34; Start 03/10/19 at 08:15; Stop 03/11/19 at 16:02; Status DC Amlodipine Besylate (Norvasc) 5 mg DAILY PO Last administered on 03/10/19at 09:13; Start 03/10/19 at 09:00; Stop 03/10/19 at 10:04; Status DC Hydrochlorothiazide (Hydrodiuril) 25 mg DAILY PO Last administered on 03/10/19at 09:13; Start 03/10/19 at 09:00; Stop 03/10/19 at 10:04; Status DC Lisinopril (Prinivil) 5 mg DAILY PO Last administered on 03/10/19at 09:13; Start 03/10/19 at 09:00; Stop 03/10/19 at 10:04; Status DC Levofloxacin/ Dextrose 100 ml @ 100 mls/hr Q24H IV Last administered on 03/14/19at 08:10; Start 03/10/19 at 09:00; Stop 03/14/19 at 09:25; Status DC Aspirin (Amanda Aspirin) 325 mg 1X ONCE PO Last administered on 03/10/19at 10:55; Start 03/10/19 at 10:30; Stop 03/10/19 at 10:31; Status DC Aspirin (Children'S Aspirin) 81 mg DAILYWBKFT PO Last administered on 04/14/19at 08:19; Start 03/11/19 at 08:00 Amlodipine Besylate (Norvasc) 10 mg DAILY PO Last administered on 03/11/19at 09:37; Start 03/11/19 at 09:00; Stop 03/11/19 at 12:50; Status DC Hydralazine HCl (Apresoline Inj) 10 mg PRN Q4HRS PRN IVP ELEVATED BP, SEE COMMENTS; Start 03/10/19 at 10:15; Stop 03/12/19 at 09:37; Status DC Furosemide (Lasix) 40 mg DAILY IVP Last administered on 03/11/19at 09:37; Start 03/10/19 at 11:00; Stop 03/11/19 at 11:24; Status DC Insulin Human Lispro (HumaLOG) 0-9 UNITS TIDWMEALS SQ ; Start 03/10/19 at 12:00; Stop 03/10/19 at 17:57; Status DC Dextrose (Dextrose 50%-Water Syringe) 12.5 gm PRN Q15MIN PRN IV SEE COMMENTS; Start 03/10/19 at 11:15; Stop 03/12/19 at 16:47; Status DC Dextrose 250 ml PRN Q15MIN PRN IV SEE COMMENTS; Start 03/10/19 at 11:15; Stop 03/10/19 at 11:05; Status DC Iohexol (Omnipaque 350 Mg/ml) 100 ml 1X ONCE IV Last administered on 03/10/19at 14:05; Start 03/10/19 at 11:45; Stop 03/10/19 at 11:47; Status DC Info (CONTRAST GIVEN -- Rx MONITORING) 1 each PRN DAILY PRN MC SEE COMMENTS; Start 03/10/19 at 11:45; Stop 03/12/19 at 11:44; Status DC Piperacillin Sod/ Tazobactam Sod (Zosyn Per Pharmacy) 1 each PRN DAILY PRN MC SEE COMMENTS; Start 03/10/19 at 11:45; Stop 03/25/19 at 08:36; Status DC Vancomycin HCl (Vanco Per Pharmacy) 1 each PRN DAILY PRN MC SEE COMMENTS Last administered on 03/11/19at 09:42; Start 03/10/19 at 11:45; Stop 03/11/19 at 13:57; Status DC Vancomycin HCl 2 gm/Sodium Chloride 500 ml @ 250 mls/hr 1X ONCE IV Last administered on 03/10/19at 12:41; Start 03/10/19 at 13:00; Stop 03/10/19 at 14:59; Status DC Piperacillin Sod/ Tazobactam Sod 3.375 gm/Sodium Chloride 50 ml @ 100 mls/hr Q6HRS IV Last administered on 03/24/19at 05:45; Start 03/10/19 at 12:30; Stop 03/24/19 at 07:24; Status DC Vancomycin HCl 1.75 gm/Sodium Chloride 500 ml @ 250 mls/hr Q12H IV Last administered on 03/11/19at 12:43; Start 03/11/19 at 01:00; Stop 03/11/19 at 13:57; Status DC Vancomycin HCl (Vancomycin Trough Level) 1 each 1X ONCE MC ; Start 03/12/19 at 12:30; Stop 03/12/19 at 12:31; Status Cancel Insulin Human Lispro (HumaLOG) 0-9 UNITS Q6HRS SQ ; Start 03/11/19 at 00:00; Stop 03/27/19 at 09:06; Status DC Magnesium Sulfate/ Dextrose 100 ml @ 50 mls/hr DAILY IV Last administered on 03/11/19at 09:28; Start 03/11/19 at 09:00; Stop 03/14/19 at 08:59; Status DC Potassium Phosphate 27.2 mmol/Sodium Chloride 259.0667 ml @ 64.753 m... 1X ONCE IV Last administered on 03/11/19at 09:28; Start 03/11/19 at 10:00; Stop 03/11/19 at 14:00; Status DC Potassium Phosphate 27.2 mmol/Sodium Chloride 259.0667 ml @ 64.753 m... 1X ONCE IV ; Start 03/11/19 at 14:00; Stop 03/11/19 at 18:00; Status DC Lorazepam (Ativan Inj) 1 mg PRN Q1HR PRN IV ANXIETY Last administered on 03/14/19at 16:32; Start 03/11/19 at 11:00; Stop 03/19/19 at 10:31; Status DC Sodium Chloride 1,000 ml @ 1,000 mls/hr 1X ONCE IV Last administered on 03/11/19at 12:06; Start 03/11/19 at 11:30; Stop 03/11/19 at 12:29; Status DC Norepinephrine Bitartrate 250 ml @ 27.837 mls/ hr CONT PRN IV SEE I/O RECORD Last administered on 03/13/19at 04:13; Start 03/11/19 at 13:00; Stop 03/26/19 at 09:22; Status DC Hydralazine HCl (Apresoline Inj) 10 mg PRN Q4HRS PRN IVP ELEVATED BP, SEE COMMENTS Last administered on 04/08/19at 23:31; Start 03/11/19 at 13:00 Linezolid/Dextrose 300 ml @ 300 mls/hr Q12HR IV Last administered on 03/22/19at 21:38; Start 03/11/19 at 21:00; Stop 03/23/19 at 07:48; Status DC Potassium Chloride/Water 50 ml @ 50 mls/hr Q1H IV Last administered on 03/11/19at 17:28; Start 03/11/19 at 16:00; Stop 03/11/19 at 17:59; Status DC Heparin Sodium (Porcine) (Heparin Sodium) 5,000 unit Q8HRS SQ Last administered on 04/07/19at 05:53; Start 03/11/19 at 22:00; Stop 04/07/19 at 09:45; Status DC Multi-Ingred Cream/Lotion/Oil/ Oint (Artificial Tears Eye Ointment) 1 zuri PRN Q1HR PRN OU DRY EYE; Start 03/12/19 at 09:00 Potassium Chloride/Water 50 ml @ 50 mls/hr 1X ONCE IV Last administered on 03/12/19at 09:44; Start 03/12/19 at 10:00; Stop 03/12/19 at 10:59; Status DC Potassium Chloride/Water 50 ml @ 50 mls/hr 1X ONCE IV ; Start 03/12/19 at 10:30; Stop 03/12/19 at 11:31; Status DC Insulin Human Lispro (HumaLOG) 0-9 UNITS TIDWMEALS SQ ; Start 03/12/19 at 17:00; Stop 03/12/19 at 16:24; Status DC Dextrose (Dextrose 50%-Water Syringe) 12.5 gm PRN Q15MIN PRN IV SEE COMMENTS; Start 03/12/19 at 16:15 Dextrose 250 ml PRN Q15MIN PRN IV SEE COMMENTS; Start 03/12/19 at 16:15; Stop at 08:59; Status DC Insulin Human Lispro (HumaLOG) 0-9 UNITS Q6HRS SQ Last administered on 03/26/19at 00:37; Start 03/12/19 at 18:00; Stop 04/10/19 at 11:37; Status DC Dexmedetomidine HCl 400 mcg/ Sodium Chloride 100 ml @ 0 mls/hr CONT PRN IV ANXI ETY / AGITATION Last administered on 03/21/19at 04:33; Start 03/12/19 at 20:30; Stop 03/26/19 at 09:22; Status DC Sodium Chloride 500 ml @ 500 mls/hr 1X PRN PRN IV see comments Last administered on 03/12/19at 23:22; Start 03/12/19 at 20:30; Stop 03/30/19 at 14:05; Status DC Atropine Sulfate (ATROPINE 0.5mg SYRINGE) 0.5 mg PRN Q5MIN PRN IV SEE COMMENTS; Start 03/12/19 at 20:30; Stop 03/30/19 at 14:06; Status DC Vecuronium [place] (Norcuron Bolus) 10 mg PRN Q1HR PRN IV OVERBREATHING VENT Last administered on 03/25/19at 10:49; Start 03/13/19 at 07:30; Stop 04/07/19 at 09:45; Status DC Perflutren Protein Type A Microsphe (Optison) 0.66 mg STK-MED ONCE IV ; Start 03/13/19 at 09:08; Stop 03/13/19 at 09:08; Status DC Perflutren Protein Type A Microsphe (Optison) 0.66 mg 1X ONCE IV Last administered on 03/13/19at 09:40; Start 03/13/19 at 09:15; Stop 03/13/19 at 09:16; Status DC Furosemide (Lasix) 40 mg 1X ONCE IVP Last administered on 03/13/19at 13:32; Start 03/13/19 at 10:30; Stop 03/13/19 at 10:31; Status DC Daptomycin 1320 mg/Sodium Chloride 50 ml @ 100 mls/hr ONCE ONCE IV Last administered on 03/15/19at 13:53; Start 03/15/19 at 13:00; Stop 03/16/19 at 09:33; Status DC Daptomycin 1340 mg/Sodium Chloride 50 ml @ 100 mls/hr Q24H IV ; Start 03/16/19 at 08:45; Status UNV Daptomycin 1340 mg/Sodium Chloride 50 ml @ 100 mls/hr Q24H IV ; Start 03/16/19 at 09:00; Status Cancel Daptomycin 830 mg/ Sodium Chloride 50 ml @ 100 mls/hr Q24H IV Last administered on 03/18/19at 15:03; Start 03/16/19 at 14:00; Stop 03/19/19 at 07:41; Status DC Methylprednisolone Sodium Succinate (SOLU-Medrol 125MG VIAL) 100 mg Q8HRS IV Last administered on 03/23/19at 05:54; Start 03/16/19 at 12:00; Stop 03/23/19 at 12:03; Status DC Furosemide (Lasix) 40 mg 1X ONCE IVP Last administered on 03/16/19at 16:46; Start 03/16/19 at 16:30; Stop 03/16/19 at 16:31; Status DC Fentanyl Citrate (Fentanyl 600 Mcg/30 ml WELL TESTER) 600 mcg STK-MED ONCE IV ; Start 03/13/19 at 17:00; Stop 03/17/19 at 11:02; Status DC Furosemide 100 mg/ Sodium Chloride 100 ml @ 5 mls/hr CONT PRN IV SEE I/O RECORD Last administered on 03/18/19at 00:20; Start 03/17/19 at 15:45; Stop 03/18/19 at 10:36; Status DC Furosemide 100 mg/ Sodium Chloride 100 ml @ 5 mls/hr CONT PRN IV SEE I/O RECORD Last administered on 03/21/19at 08:34; Start 03/18/19 at 10:45; Stop 03/21/19 at 12:57; Status DC Lorazepam (Ativan Inj) 2 mg PRN Q1HR PRN IV ANXIETY Last administered on 04/04/19at 00:30; Start 03/19/19 at 10:45; Stop 04/07/19 at 09:45; Status DC Lisinopril (Prinivil) 5 mg DAILY PO Last administered on 04/14/19at 08:19; Start 03/21/19 at 11:30 Amlodipine Besylate (Norvasc) 10 mg DAILY PO Last administered on 04/14/19at 08:24; Start 03/21/19 at 11:30 Furosemide 100 mg/ Sodium Chloride 100 ml @ 10 mls/hr CONT PRN IV SEE I/O RECORD Last administered on 03/22/19at 05:05; Start 03/21/19 at 16:00; Stop 03/22/19 at 12:39; Status DC Scopolamine (Transderm-Scop) 1 patch Q3DAYS TD Last administered on 04/06/19at 10:24; Start 03/22/19 at 11:00; Stop 04/07/19 at 09:45; Status DC Furosemide 100 mg/ Sodium Chloride 100 ml @ 5 mls/hr CONT PRN IV SEE I/O RECORD Last administered on 03/22/19at 21:38; Start 03/22/19 at 12:45; Stop 03/23/19 at 17:48; Status DC Methylprednisolone Sodium Succinate (SOLU-Medrol 125MG VIAL) 50 mg Q8HRS IV Last administered on 03/27/19at 05:30; Start 03/23/19 at 14:00; Stop 03/27/19 at 11:20; Status DC Insulin Human Lispro (HumaLOG) 0-5 UNITS TIDWMEALS SQ ; Start 03/27/19 at 09:30; Status Cancel Dextrose (Dextrose 50%-Water Syringe) 12.5 gm PRN Q15MIN PRN IV SEE COMMENTS; Start 03/27/19 at 09:00; Status Cancel Dextrose 250 ml PRN Q15MIN PRN IV SEE COMMENTS; Start 03/27/19 at 09:00; Status Cancel Methylprednisolone Sodium Succinate (SOLU-Medrol 40MG VIAL) 30 mg Q8HRS IV Last administered on 04/02/19at 06:28; Start 03/27/19 at 14:00; Stop 04/02/19 at 11:19; Status DC Furosemide (Lasix) 40 mg 1X ONCE IVP Last administered on 03/27/19at 11:58; Start 03/27/19 at 12:00; Stop 03/27/19 at 12:01; Status DC Furosemide (Lasix) 40 mg 1X ONCE IVP Last administered on 03/28/19at 10:15; Start 03/28/19 at 09:30; Stop 03/28/19 at 09:46; Status DC Furosemide (Lasix) 40 mg 1X ONCE IVP Last administered on 03/29/19at 09:44; Start 03/29/19 at 09:30; Stop 03/29/19 at 09:31; Status DC Sodium Chloride 1,000 ml @ 1,000 mls/hr 1X ONCE IV Last administered on at 20:41; Start 03/29/19 at 20:30; Stop 03/29/19 at 21:29; Status DC Norepinephrine Bitartrate 250 ml @ 38.554 mls/ hr CONT PRN IV SEE I/O RECORD; Start 03/29/19 at 20:30; Stop 04/12/19 at 13:41; Status DC Furosemide (Lasix) 40 mg 1X ONCE IVP Last administered on 03/30/19at 10:42; Start 03/30/19 at 10:15; Stop 03/30/19 at 10:16; Status DC Sodium Bicarbonate (Sodium Bicarb Adult 8.4% Syr) 50 meq STK-MED ONCE .ROUTE ; Start 03/31/19 at 17:28; Stop 03/31/19 at 17:29; Status DC Lactic Acid (Lac-Hydrin) 1 zuri BID TP Last administered on 04/13/19at 21:49; Start 04/01/19 at 21:00 Methylprednisolone Sodium Succinate (SOLU-Medrol 40MG VIAL) 30 mg DAILY IV Last administered on 04/07/19at 05:47; Start 04/03/19 at 09:00; Stop 04/07/19 at 09:45; Status DC Furosemide (Lasix) 40 mg 1X ONCE IVP Last administered on 04/02/19at 12:09; Start 04/02/19 at 11:30; Stop 04/02/19 at 11:35; Status DC Furosemide (Lasix) 40 mg 1X ONCE IVP ; Start 04/02/19 at 12:00; Stop 04/02/19 at 12:01; Status DC Dexmedetomidine HCl 400 mcg/ Sodium Chloride 100 ml @ 0 mls/hr CONT PRN IV ANXIETY / AGITATION Last administered on 04/03/19at 11:03; Start 04/02/19 at 16:00; Stop 04/07/19 at 09:45; Status DC Sodium Chloride 1,000 ml @ 1,000 mls/hr 1X ONCE IV Last administered on 04/02/19at 22:00; Start 04/02/19 at 22:00; Stop 04/02/19 at 22:59; Status DC Ondansetron HCl (Zofran) 4 mg 1X ONCE IM Last administered on 04/03/19at 12:39; Start 04/03/19 at 12:45; Stop 04/03/19 at 12:46; Status DC Acetaminophen (Tylenol) 500 mg PRN Q6HRS PRN PO MILD PAIN / TEMP Last administered on 04/11/19at 11:41; Start 04/03/19 at 18:30 Ondansetron HCl (Zofran) 4 mg PRN Q6HRS PRN IVP NAUSEA/VOMITING Last administered on 04/04/19at 21:04; Start 04/03/19 at 18:30 Amino Acids/ Glycerin/ Electrolytes 1,000 ml @ 50 mls/hr Q20H IV Last administered on 04/13/19at 08:43; Start 04/06/19 at 12:15; Stop 04/13/19 at 13:03; Status DC Potassium Chloride (Klor-Con) 40 meq 1X ONCE PO Last administered on 04/07/19at 17:40; Start 04/07/19 at 11:45; Stop 04/07/19 at 11:46; Status DC Insulin Human Lispro (HumaLOG) 0-9 UNITS PRN Q6HRS PRN SQ PER SLIDING SCALE; Start 04/10/19 at 11:45; Stop 04/11/19 at 20:56; Status DC Insulin Human Lispro (HumaLOG) 0-9 UNITS TIDWMEALS SQ ; Start 04/12/19 at 08:00 Active Scripts Active Norvasc (Amlodipine Besylate) 5 Mg Tablet 1 Tab PO DAILY Lisinopril 5 Mg Tablet 1 Tab PO DAILY Reported Hydrochlorothiazide Tablet (Hydrochlorothiazide) 25 Mg Tablet 25 Mg PO DAILY Vitals/I & O Vital Sign - Last 24 Hours 04/13/19 04/13/19 04/13/19 04/13/19 11:00 12:13 15:00 15:54 Temp 98.5 98.3 98.5 98.3 Pulse 91 90 Resp 32 32 B/P (MAP) 134/67 (89) 153/191 (178) Pulse Ox 96 98 99 98 O2 Delivery Nasal Cannula Nasal Cannula Nasal Cannula Nasal Cannula O2 Flow Rate 2.0 2.0 04/13/19 04/13/19 04/13/19 04/13/19 19:00 20:20 20:32 22:51 Temp 98.6 98.8 98.6 98.8 Pulse 94 86 Resp 20 18 B/P (MAP) 99/50 (66) 113/71 (85) Pulse Ox 96 98 95 O2 Delivery Nasal Cannula Nasal Cannula Nasal Cannula Nasal Cannula O2 Flow Rate 2.0 2.0 2.0 2.0 04/14/19 04/14/19 04/14/19 04/14/19 03:00 07:00 07:33 08:19 Temp 98.3 98.1 98.3 98.1 Pulse 90 91 91 Resp 18 18 B/P (MAP) 137/78 (97) 122/67 (85) 122/67 Pulse Ox 91 95 95 O2 Delivery Nasal Cannula Nasal Cannula Nasal Cannula O2 Flow Rate 2.0 1.0 1.0 04/14/19 04/14/19 04/14/19 08:24 08:30 08:30 Pulse 91 B/P (MAP) 122/67 O2 Delivery Nasal Cannula O2 Flow Rate 1.0 1.0 Intake and Output 04/13/19 04/13/19 04/14/19 14:59 22:59 06:59 Intake Total 1150 ml 1500 ml Output Total 750 ml 650 ml Balance 400 ml 1500 ml -650 ml PRICILA GOMEZ MD Apr 14, 2019 10:40
[2019-04-14 11:00] VITALS: BP 122/59
--- NOTE | 2019-04-14 11:20 | NUR ---
SW following pt. Spoke with RN and pt is able to feed himself but is not able to ambulate. SW attempted to meet with pt to explore emergency [place] pending LTC placement but pt was working with PT at this time. SW will attempt to meet with pt later. SW spoke with [facility] and pt's sister had applied for Medicaid online in March 2019. Case # for application is #[id number]. SW will continue to follow pt.
[2019-04-14] MEDS: AMMONIUM LACTATE 12% TOPICAL LOTION 226GM BOTTLE. TP SCH ×2 (11:45→20:44)
--- NOTE | 2019-04-14 13:41 | PDOC ---
PROGRESS NOTES Assessment Assessment Myoclonic movements. Respiratory failure. ARDS. DM. HTN. COPD. SHARON. Morbid obesity. Vaping. RECOMMENDATIONS/PLAN: Continue ASA daily. Continue medical treatment. OT/PT. Weight reduction. FU with PCP. Objective: Not observed myoclonic movement on 04/14/19. PAST MEDICAL HISTORY: Hypertension. Ascending thoracic aorta 4.4 cm. Chronic lymphedema. History of congestive heart failure. Chronic obstructive pulmonary disease. Obstructive sleep apnea. ALLERGIES: No known allergies to drugs. FAMILY HISTORY: Hypertension. SOCIAL HISTORY: He smokes less than a pack a day. He does not drink alcohol or use recreational drugs. PAST SURGICAL HISTORY: No major surgery recently. MEDICATIONS: Refer to [facility] REVIEW OF SYSTEMS: Constitutional: Morbid obesity. Head: No recent traumatic brain or head injury. Skin: No edema, or rash. Ear: No infection. Eyes: No vision loss, or diplopia. Nose: No bleeding or purulent discharges. Hearing: No hearing decrease. Neck: No injury. Cardiac: HTN Pulmonary: COPD. GI: No GI Ulcer, GI bleeding Urinary/genital: No dysuria, incontinence, urinary retention. Endocrine: Diabetes Mellitus. Skeletomuscular: No muscular atrophy. Neurological: see HP. Psychiatric: Denies drug use/abuse. Otherwise, not [id number] review of systems. PHYSICAL EXAMINATION: General appearance in subacute distress. HEENT: Normocephalic and nontraumatic. Eyes, nose, ears, and throat are unremarkable. Neck is supple. No lymphadenopathy. No Crepitus. Cardiovascular: S1, S2, regular rate and rhythm. Pulmonary: Mildly decreased to auscultation bilaterally. Abdomen: Bowel sounds are positive. Abdomen is soft, nontender, and nondistended. Extremities: Chronic significant skin changes as venous stasis in LE. NEUROLOGICAL EXAMINATION: Awake. Oriented partially to time, place and person. PERRL. EOMI. CN: no focal findings. Muscle tone: within normal. Muscle strength: 4-5 UE, 3 LE DTR: 0-1 due to obesity. Plantar reflex: Flexor response bilaterally Gait: not examined in chair. Sensory exam: no acute abnormal findings. Objective Objective Vital Signs Date Time Temp Pulse Resp B/P (MAP) Pulse Ox O2 Delivery O2 Flow Rate FiO2 04/14/19 11:34 Nasal Cannula 1.0 04/14/19 11:00 98.3 99 20 122/59 (80) 92 98.3 Intake and Output 04/14/19 06:59 Intake Total 2650 ml Output Total 1400 ml Balance 1250 ml Intake Oral 1500 ml IV Total 1150 ml Output Urine Total 1400 ml Vitals Signs Vitals VS - Last 72 Hours, by Label Date Time Temp Pulse Resp B/P (MAP) Pulse Ox O2 Delivery O2 Flow Rate FiO2 04/14/19 11:34 Nasal Cannula 1.0 04/14/19 11:00 98.3 99 20 122/59 (80) 92 Nasal Cannula 0.5 98.3 04/14/19 08:30 Nasal Cannula 1.0 04/14/19 08:30 1.0 04/14/19 08:24 91 122/67 04/14/19 08:19 91 122/67 04/14/19 07:33 95 Nasal Cannula 1.0 04/14/19 07:00 98.1 91 18 122/67 (85) 95 Nasal Cannula 1.0 98.1 04/14/19 03:00 98.3 90 18 137/78 (97) 91 Nasal Cannula 2.0 98.3 04/13/19 22:51 98.8 86 18 113/71 (85) 95 Nasal Cannula 2.0 98.8 04/13/19 20:32 98 Nasal Cannula 2.0 04/13/19 20:20 Nasal Cannula 2.0 04/13/19 19:00 98.6 94 20 99/50 (66) 96 Nasal Cannula 2.0 98.6 04/13/19 15:54 98 Nasal Cannula 2.0 04/13/19 15:00 98.3 90 32 153/191 (178) 99 Nasal Cannula 98.3 04/13/19 12:13 98 Nasal Cannula 2.0 04/13/19 11:00 98.5 91 32 134/67 (89) 96 Nasal Cannula 98.5 04/13/19 08:44 93 111/62 04/13/19 08:44 92 111/62 04/13/19 08:30 Nasal Cannula 1.0 04/13/19 08:10 98 Nasal Cannula 2.0 04/13/19 07:00 98.3 91 32 111/62 (78) 97 BiPAP/CPAP 98.3 Laboratory Laboratory Laboratory Tests Test 04/13/19 17:00 04/13/19 20:46 04/14/19 07:25 04/14/19 12:12 Glucose (Fingerstick) 100 mg/dL (70-99) 107 mg/dL (70-99) 95 mg/dL (70-99) 114 mg/dL (70-99) Microbiology 03/16/19 - Final, Complete 03/16/19 - Final, Complete 03/16/19 Gram Stain Evaluation - Final, Complete 03/16/19 Sputum Culture - Final, Complete 03/16/19 Sputum Result 1 - Final, Complete 03/16/19 Blood Culture - Final, Complete NO GROWTH AFTER 5 DAYS 03/09/19 Urine Culture - Final, Complete 03/09/19 Urine Culture Result 1 (WIL) - Final, Complete Comment Review of Relevant I have reviewed the following items peter (where applicable) has been applied. MARLENA MCFARLANE MD Apr 14, 2019 13:41
[2019-04-14 15:00] VITALS: BP 137/85
--- NOTE | 2019-04-14 16:49 | NUR ---
SW following pt. Discussed with pt about his goals for dc and pt states he is not sure if he will be able to go home as he lives on [address] floor. Pt appears lethargic and closes his eyes sometimes reporting he had 'worked with PT today and is exhausted'. 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 Pt has one brother and two sisters. Pt requested SWer to speak with his sister, Ivette regarding discharge plan. Pt states he was hoping to go to a rehab facility as he is not able to care for himself at this time. SW spoke with Ivette,: [phone] via phone in pt's room and she reported she was hoping hospital was going to assist in placing pt in a facility. SW discussed various placements and reported it would be difficult to place pt in rehab facility due self pay status. Pt's sister reported family is not able to provide 24/7 support for pt at this time. SW discussed SW can attempt in emergency [facility] placement as medicaid pending. Pt's sister stated she will check regarding his application and will call SWer back. Pt is worried that he will go a nursing him as he might be younger than [facility] residents. SW provided supportive counseling and discussed he might be able to return home pending progress but it will be a difficult task finding placement for him. SW encouraged pt to continue to work with PT/OT during hospital stay and encouraged to discuss discharge planning with his family. Plan 1. SW will await to hear back from pt's sister Ivette,: [phone] again and assist with dc planning. 2. Pt currently is not safe to go home due to inability to care for himself unless he has 24/7 support and various appropriate DME equipment. 3. Will continue to follow. Discussed with RN.
[2019-04-14 19:00] VITALS: BP 123/69
[2019-04-14 23:00] VITALS: BP 139/82
[2019-04-15 03:00] VITALS: BP 146/91
[2019-04-15 06:45] LABS: ALBUMIN 2.7 g/dL (3.4-5.0); ALBUMIN/GLOBULIN RATIO 0.7 (1.0-1.7); CALCIUM 8.8 mg/dL (8.5-10.1); CREATININE 0.6 mg/dL (0.7-1.3); POTASSIUM 3.5 mmol/L (3.5-5.1); TOTAL BILIRUBIN 1.1 mg/dL (0.2-1.0); TOTAL PROTEIN 6.4 g/dL (6.4-8.2)
[2019-04-15 07:00] VITALS: BP 145/83
[2019-04-15 07:43] LABS: BASO % 0 % (0-3); EOS # 0.8 x10^3/uL (0.0-0.7); EOS % 11 % (0-3); HEMATOCRIT 26.5 % (39.0-53.0); HEMOGLOBIN 8.5 g/dL (13.0-17.5); LYMPH # 1.5 x10^3/uL (1.0-4.8); LYMPH % 20 % (24-48); MEAN CORPUSCULAR HEMOGLOBIN 26 pg (25-35); MEAN CORPUSCULAR HGB CONC 32 g/dL (31-37); MEAN CORPUSCULAR VOLUME 83 fL (79-100); MONO # 0.7 x10^3/uL (0.0-1.1); MONO % 9 % (0-9); NEUT # 4.3 x10^3/uL (1.8-7.7); NEUT % 59 % (31-73); PLATELET COUNT 256 x10^3/uL (140-400); RED BLOOD COUNT 3.22 x10^6/uL (4.30-5.70); RED CELL DISTRIBUTION WIDTH 21.7 % (11.5-14.5); WHITE BLOOD COUNT 7.3 x10^3/uL (4.0-11.0)
[2019-04-15] MEDS: IPRATRPIUM/ALBUTEROL 0.5/2.5MG 3 ML NEBU. NEB SCH ×4 (08:00→19:24)
[2019-04-15] MEDS: INSULIN LISPRO 300 UNITS/3 ML VIAL. SQ SCH ×3 (08:00→17:00)
[2019-04-15] MEDS: AMMONIUM LACTATE 12% TOPICAL LOTION 226GM BOTTLE. TP SCH ×2 (09:00→22:10)
[2019-04-15] MEDS: ASPIRIN CHEWABLE 81 MG TABLET. PO SCH (09:06)
[2019-04-15] MEDS: amLODIPine BESYLATE 10 MG TABLET PO SCH (09:07)
[2019-04-15] MEDS: LISINOPRIL 5 MG TABLET. PO SCH (09:07)
--- NOTE | 2019-04-15 09:52 | PDOC ---
PROGRESS NOTES Chief Complaint Chief Complaint IMPRESSION Acute Hypercapnic Respiratory Failure/ARDS due to vaping Pulmonary Edema Bilateral Lung Infiltrates Obstructive sleep apnea OSMAN Increased Troponin Morbid Obesity Pulmonary HTN Tobacco use 04/15 winded to day wiorking with OT IN ROOM History of Present Illness History of Present Illness 04/8919 DC fontana DC tele transfer to floor [facility] PLACEMENT PLANNED SOA WITH ACTIVITY 29 MIN PT EXAM, CHART REVIEW, > 50% OF TIME WITH EXAM, CHART REVIEW, PT CARE COORDINATION Vitals Vitals Vital Signs Date Time Temp Pulse Resp B/P (MAP) Pulse Ox O2 Delivery O2 Flow Rate FiO2 04/15/19 09:07 83 145/83 04/15/19 08:02 95 Nasal Cannula 1.0 04/15/19 07:00 98.5 20 98.5 Physical Exam Physical Exam GENERAL: Orally intubated/ sedated - lightly, HEENT: opened eyes Pupils equal, nml conj OGT/ETT NECK: Supple LUNGS: dec bs at bases HEART: S1 and S2, regular. ABDOMEN: Obese, soft, +BS : Fontana in place fecal tube in place EXTREMITIES: Trace edema - MITTS SKIN: Chronic stasis dermatitis on the lower extremity. NEUROLOGIC: Awake IVS; Old RIJ site clean. RUE - PICC clean General: Alert, Oriented X3, Cooperative, No acute distress, mild distress, Other (short neck , Mallampati 4 ON VENT) Heart: Regular rate (SR), Normal S1, Normal S2, Other (distante heart sounds) Lungs: Clear, Crackles, Other (decrease bs) Abdomen: Normal bowel sounds, Soft, No tenderness, No hepatosplenomegaly, No masses Extremities: No clubbing, No cyanosis, No edema, Normal pulses, No tenderness/swelling Skin: No rashes, No breakdown, No significant lesion Labs LABS Laboratory Tests Test 04/14/19 12:12 04/14/19 16:10 04/15/19 06:05 04/15/19 08:15 Glucose (Fingerstick) 114 mg/dL (70-99) 87 mg/dL (70-99) 106 mg/dL (70-99) White Blood Count 7.3 x10^3/uL (4.0-11.0) Red Blood Count 3.22 x10^6/uL (4.30-5.70) Hemoglobin 8.5 g/dL (13.0-17.5) Hematocrit 26.5 % (39.0-53.0) Mean Corpuscular Volume 83 fL (79-100) Mean Corpuscular Hemoglobin 26 pg (25-35) Mean Corpuscular Hemoglobin Concent 32 g/dL (31-37) Red Cell Distribution Width 21.7 % (11.5-14.5) Platelet Count 256 x10^3/uL (140-400) Neutrophils (%) (Auto) 59 % (31-73) Lymphocytes (%) (Auto) 20 % (24-48) Monocytes (%) (Auto) 9 % (0-9) Eosinophils (%) (Auto) 11 % (0-3) Basophils (%) (Auto) 0 % (0-3) Neutrophils # (Auto) 4.3 x10^3/uL (1.8-7.7) Lymphocytes # (Auto) 1.5 x10^3/uL (1.0-4.8) Monocytes # (Auto) 0.7 x10^3/uL (0.0-1.1) Eosinophils # (Auto) 0.8 x10^3/uL (0.0-0.7) Basophils # (Auto) 0.0 x10^3/uL (0.0-0.2) Sodium Level 141 mmol/L (136-145) Potassium Level 3.5 mmol/L (3.5-5.1) Chloride Level 106 mmol/L (98-107) Carbon Dioxide Level 26 mmol/L (21-32) Anion Gap 9 (6-14) Blood Urea Nitrogen 10 mg/dL (8-26) Creatinine 0.6 mg/dL (0.7-1.3) Estimated GFR (Cockcroft-Gault) 174.0 BUN/Creatinine Ratio 17 (6-20) Glucose Level 99 mg/dL (70-99) Calcium Level 8.8 mg/dL (8.5-10.1) Total Bilirubin 1.1 mg/dL (0.2-1.0) Aspartate Amino Transf (AST/SGOT) 16 U/L (15-37) Alanine Aminotransferase (ALT/SGPT) 31 U/L (16-63) Alkaline Phosphatase 86 U/L (46-116) Total Protein 6.4 g/dL (6.4-8.2) Albumin 2.7 g/dL (3.4-5.0) Albumin/Globulin Ratio 0.7 (1.0-1.7) Assessment and Plan Assessmemt and Plan Problems Medical Problems: (1) CHF exacerbation Status: Acute (2) COPD exacerbation Status: Acute (3) Hypoxia Status: Acute (4) NSTEMI (non-ST elevated myocardial infarction) Status: Acute (5) Respiratory failure Status: Acute Comment Review of Relevant I have reviewed the following items peter (where applicable) has been applied. Labs Laboratory Tests Test 04/13/19 11:44 04/13/19 17:00 04/13/19 20:46 04/14/19 07:25 Glucose (Fingerstick) 130 mg/dL (70-99) 100 mg/dL (70-99) 107 mg/dL (70-99) 95 mg/dL (70-99) Test 04/14/19 12:12 04/14/19 16:10 04/15/19 06:05 04/15/19 08:15 Glucose (Fingerstick) 114 mg/dL (70-99) 87 mg/dL (70-99) 106 mg/dL (70-99) White Blood Count 7.3 x10^3/uL (4.0-11.0) Red Blood Count 3.22 x10^6/uL (4.30-5.70) Hemoglobin 8.5 g/dL (13.0-17.5) Hematocrit 26.5 % (39.0-53.0) Mean Corpuscular Volume 83 fL (79-100) Mean Corpuscular Hemoglobin 26 pg (25-35) Mean Corpuscular Hemoglobin Concent 32 g/dL (31-37) Red Cell Distribution Width 21.7 % (11.5-14.5) Platelet Count 256 x10^3/uL (140-400) Neutrophils (%) (Auto) 59 % (31-73) Lymphocytes (%) (Auto) 20 % (24-48) Monocytes (%) (Auto) 9 % (0-9) Eosinophils (%) (Auto) 11 % (0-3) Basophils (%) (Auto) 0 % (0-3) Neutrophils # (Auto) 4.3 x10^3/uL (1.8-7.7) Lymphocytes # (Auto) 1.5 x10^3/uL (1.0-4.8) Monocytes # (Auto) 0.7 x10^3/uL (0.0-1.1) Eosinophils # (Auto) 0.8 x10^3/uL (0.0-0.7) Basophils # (Auto) 0.0 x10^3/uL (0.0-0.2) Sodium Level 141 mmol/L (136-145) Potassium Level 3.5 mmol/L (3.5-5.1) Chloride Level 106 mmol/L (98-107) Carbon Dioxide Level 26 mmol/L (21-32) Anion Gap 9 (6-14) Blood Urea Nitrogen 10 mg/dL (8-26) Creatinine 0.6 mg/dL (0.7-1.3) Estimated GFR (Cockcroft-Gault) 174.0 BUN/Creatinine Ratio 17 (6-20) Glucose Level 99 mg/dL (70-99) Calcium Level 8.8 mg/dL (8.5-10.1) Total Bilirubin 1.1 mg/dL (0.2-1.0) Aspartate Amino Transf (AST/SGOT) 16 U/L (15-37) Alanine Aminotransferase (ALT/SGPT) 31 U/L (16-63) Alkaline Phosphatase 86 U/L (46-116) Total Protein 6.4 g/dL (6.4-8.2) Albumin 2.7 g/dL (3.4-5.0) Albumin/Globulin Ratio 0.7 (1.0-1.7) Laboratory Tests Test 04/14/19 12:12 04/14/19 16:10 04/15/19 06:05 04/15/19 08:15 Glucose (Fingerstick) 114 mg/dL (70-99) 87 mg/dL (70-99) 106 mg/dL (70-99) White Blood Count 7.3 x10^3/uL (4.0-11.0) Red Blood Count 3.22 x10^6/uL (4.30-5.70) Hemoglobin 8.5 g/dL (13.0-17.5) Hematocrit 26.5 % (39.0-53.0) Mean Corpuscular Volume 83 fL (79-100) Mean Corpuscular Hemoglobin 26 pg (25-35) Mean Corpuscular Hemoglobin Concent 32 g/dL (31-37) Red Cell Distribution Width 21.7 % (11.5-14.5) Platelet Count 256 x10^3/uL (140-400) Neutrophils (%) (Auto) 59 % (31-73) Lymphocytes (%) (Auto) 20 % (24-48) Monocytes (%) (Auto) 9 % (0-9) Eosinophils (%) (Auto) 11 % (0-3) Basophils (%) (Auto) 0 % (0-3) Neutrophils # (Auto) 4.3 x10^3/uL (1.8-7.7) Lymphocytes # (Auto) 1.5 x10^3/uL (1.0-4.8) Monocytes # (Auto) 0.7 x10^3/uL (0.0-1.1) Eosinophils # (Auto) 0.8 x10^3/uL (0.0-0.7) Basophils # (Auto) 0.0 x10^3/uL (0.0-0.2) Sodium Level 141 mmol/L (136-145) Potassium Level 3.5 mmol/L (3.5-5.1) Chloride Level 106 mmol/L (98-107) Carbon Dioxide Level 26 mmol/L (21-32) Anion Gap 9 (6-14) Blood Urea Nitrogen 10 mg/dL (8-26) Creatinine 0.6 mg/dL (0.7-1.3) Estimated GFR (Cockcroft-Gault) 174.0 BUN/Creatinine Ratio 17 (6-20) Glucose Level 99 mg/dL (70-99) Calcium Level 8.8 mg/dL (8.5-10.1) Total Bilirubin 1.1 mg/dL (0.2-1.0) Aspartate Amino Transf (AST/SGOT) 16 U/L (15-37) Alanine Aminotransferase (ALT/SGPT) 31 U/L (16-63) Alkaline Phosphatase 86 U/L (46-116) Total Protein 6.4 g/dL (6.4-8.2) Albumin 2.7 g/dL (3.4-5.0) Albumin/Globulin Ratio 0.7 (1.0-1.7) Microbiology 03/16/19 - Final, Complete 03/16/19 - Final, Complete 03/16/19 Gram Stain Evaluation - Final, Complete 03/16/19 Sputum Culture - Final, Complete 03/16/19 Sputum Result 1 - Final, Complete 03/16/19 Blood Culture - Final, Complete NO GROWTH AFTER 5 DAYS 03/09/19 Urine Culture - Final, Complete 03/09/19 Urine Culture Result 1 (WIL) - Final, Complete Medications Current Medications Albuterol/ Ipratropium (Duoneb) 3 ml 1X ONCE NEB Last administered on 03/09/19at 21:21; Start 03/09/19 at 21:30; Stop 03/09/19 at 21:31; Status DC Dexamethasone Sodium Phosphate (Decadron) 10 mg 1X ONCE IV Last administered on 03/09/19at 22:29; Start 03/09/19 at 22:00; Stop 03/09/19 at 22:01; Status DC Propofol 100 ml @ 0 mls/hr CONT PRN IV SEE PROTOCOL Last administered on 03/10/19at 07:19; Start 03/09/19 at 22:30; Stop 03/10/19 at 07:28; Status DC Fentanyl Citrate (Fentanyl 2ml Vial) 50 mcg PRN Q1HR PRN IV SEE COMMENTS; Start 03/09/19 at 22:30; Stop 03/10/19 at 07:28; Status DC Chlorhexidine Gluconate (Peridex) 15 ml BID MM Last administered on 04/05/19at 08:06; Start 03/10/19 at 09:00; Stop 04/05/19 at 11:08; Status DC Famotidine (Pepcid Vial) 20 mg BID IVP Last administered on 04/06/19at 21:27; Start 03/10/19 at 09:00; Stop 04/07/19 at 09:45; Status DC Propofol 50 ml @ As Directed STK-MED ONCE IV ; Start 03/09/19 at 22:28; Stop 03/09/19 at 22:28; Status DC Albuterol/ Ipratropium (Duoneb) 3 ml 1X ONCE NEB Last administered on 03/10/19at 02:04; Start 03/09/19 at 23:00; Stop 03/09/19 at 23:01; Status DC Albuterol/ Ipratropium (Duoneb) 3 ml 1X ONCE NEB Last administered on 03/10/19at 02:04; Start 03/09/19 at 23:00; Stop 03/09/19 at 23:01; Status DC Fentanyl Citrate (Fentanyl 2ml Vial) 100 mcg 1X ONCE IV Last administered on 03/09/19at 23:31; Start 03/09/19 at 23:30; Stop 03/09/19 at 23:31; Status DC Bumetanide (Bumex) 1 mg 1X ONCE IV Last administered on 03/10/19at 00:21; Start 03/10/19 at 00:00; Stop 03/10/19 at 00:01; Status DC Heparin Sodium (Porcine) (Heparin Sodium) 4,000 unit 1X ONCE IV Last administered on 03/10/19at 00:31; Start 03/10/19 at 00:00; Stop 03/10/19 at 00:01; Status DC Heparin Sodium/ Dextrose 500 ml @ 0 mls/hr CONT PRN IV PER PROTOCOL Last administered on 03/10/19at 23:34; Start 03/09/19 at 23:45; Stop 03/11/19 at 16:13; Status DC Heparin Sodium (Porcine) (Heparin Sodium) 5,500 unit PRN Q6HRS PRN IV FOR UFH LEVEL LESS THAN 0.2 Last administered on 03/11/19at 00:57; Start 03/09/19 at 23:45; Stop 03/11/19 at 16:13; Status DC Aspirin (Aspirin Rectal Supp) 300 mg 1X ONCE WI Last administered on 03/10/19at 03:42; Start 03/10/19 at 00:00; Stop 03/10/19 at 00:01; Status DC Propofol 50 ml @ As Directed STK-MED ONCE IV ; Start 03/09/19 at 23:38; Stop 03/09/19 at 23:38; Status DC Propofol 50 ml @ As Directed STK-MED ONCE IV ; Start 03/09/19 at 23:38; Stop 03/09/19 at 23:38; Status DC Piperacillin Sod/ Tazobactam Sod 4.5 gm/Sodium Chloride 100 ml @ 200 mls/hr 1X ONCE IV Last administered on 03/10/19at 05:19; Start 03/10/19 at 00:30; Stop 03/10/19 at 00:59; Status DC Propofol 50 ml @ As Directed STK-MED ONCE IV ; Start 03/10/19 at 00:51; Stop 03/10/19 at 00:51; Status DC Propofol 50 ml @ As Directed STK-MED ONCE IV ; Start 03/10/19 at 01:14; Stop 03/10/19 at 01:15; Status DC Fentanyl Citrate (Fentanyl 2ml Vial) 100 mcg 1X ONCE IV Last administered on 03/10/19at 01:26; Start 03/10/19 at 01:45; Stop 03/10/19 at 01:46; Status DC Clonidine HCl (Catapres) 0.1 mg 1X ONCE PO ; Start 03/10/19 at 01:30; Stop 03/10/19 at 01:34; Status DC Midazolam HCl (Versed) 5 mg 1X ONCE IV Last administered on 03/10/19at 01:28; Start 03/10/19 at 01:30; Stop 03/10/19 at 01:34; Status DC Propofol 50 ml @ As Directed STK-MED ONCE IV ; Start 03/10/19 at 02:08; Stop 03/10/19 at 02:09; Status DC Propofol 50 ml @ As Directed STK-MED ONCE IV ; Start 03/10/19 at 02:36; Stop 03/10 at 02:36; Status DC Rocuronium [place] (Zemuron) 50 mg STK-MED ONCE .ROUTE ; Start 03/10/19 at 05:15; Stop 03/10/19 at 05:15; Status DC Etomidate (Amidate) 20 mg STK-MED ONCE IV ; Start 03/10/19 at 05:15; Stop 03/10/19 at 05:16; Status DC Fentanyl Citrate 30 ml @ 0 mls/hr CONT PRN IV SEE PROTOCOL Last administered on 04/03/19at 09:05; Start 03/10/19 at 07:30; Stop 04/07/19 at 09:44; Status DC Propofol 100 ml @ 0 mls/hr CONT PRN IV SEE PROTOCOL Last administered on 04/02/19at 15:10; Start 03/10/19 at 07:30; Stop 04/07/19 at 09:44; Status DC Fentanyl Citrate (Fentanyl 2ml Vial) 25 mcg PRN Q1HR PRN IV SEE COMMENTS; Start 03/10/19 at 07:30; Stop 04/07/19 at 09:44; Status DC Fentanyl Citrate (Fentanyl 2ml Vial) 50 mcg PRN Q1HR PRN IV SEE COMMENTS; Start 03/10/19 at 07:30; Stop 04/07/19 at 09:45; Status DC Artificial Tears (Artificial Tears) 1 drop PRN Q1HR PRN OU DRY EYE, 1ST CHOICE Last administered on 03/13/19at 13:32; Start 03/10/19 at 07:30; Stop 04/07/19 at 09:45; Status DC Famotidine (Pepcid Vial) 20 mg BID IVP ; Start 03/10/19 at 09:00; Status UNV Morphine Sulfate (Morphine Sulfate) 2 mg PRN Q1HR PRN IV SEE COMMENTS. Last administered on 03/25/19at 09:18; Start 03/10/19 at 07:30; Stop 04/07/19 at 09:45; Status DC Morphine Sulfate (Morphine Sulfate) 4 mg PRN Q1HR PRN IV SEE COMMENTS. Last administered on 03/31/19at 10:50; Start 03/10/19 at 07:30; Stop 04/07/19 at 09:45; Status DC Midazolam HCl 100 ml @ 0 mls/hr CONT PRN IV SEE PROTOCOL Last administered on 04/01/19at 02:07; Start 03/10/19 at 07:30; Stop 04/07/19 at 09:45; Status DC Levofloxacin/ Dextrose (Levaquin Per Pharmacy) 1 each PRN DAILY PRN MC SEE COMMENTS; Start 03/10/19 at 08:15; Stop 03/14/19 at 09:25; Status DC Albuterol/ Ipratropium (Duoneb) 3 ml RTQID NEB Last administered on 04/15/19at 08:00; Start 03/10/19 at 12:00 Sodium Chloride 1,000 ml @ 100 mls/hr Q10H IV Last administered on 03/10/19at 23:34; Start 03/10/19 at 08:15; Stop 03/11/19 at 16:02; Status DC Amlodipine Besylate (Norvasc) 5 mg DAILY PO Last administered on 03/10/19at 09:13; Start 03/10/19 at 09:00; Stop 03/10/19 at 10:04; Status DC Hydrochlorothiazide (Hydrodiuril) 25 mg DAILY PO Last administered on 03/10/19at 09:13; Start 03/10/19 at 09:00; Stop 03/10/19 at 10:04; Status DC Lisinopril (Prinivil) 5 mg DAILY PO Last administered on 03/10/19at 09:13; Start 03/10/19 at 09:00; Stop 03/10/19 at 10:04; Status DC Levofloxacin/ Dextrose 100 ml @ 100 mls/hr Q24H IV Last administered on 03/14/19at 08:10; Start 03/10/19 at 09:00; Stop 03/14/19 at 09:25; Status DC Aspirin (Amanda Aspirin) 325 mg 1X ONCE PO Last administered on 03/10/19at 10:55; Start 03/10/19 at 10:30; Stop 03/10/19 at 10:31; Status DC Aspirin (Children'S Aspirin) 81 mg DAILYWBKFT PO Last administered on 04/15/19at 09:06; Start 03/11/19 at 08:00 Amlodipine Besylate (Norvasc) 10 mg DAILY PO Last administered on 03/11/19at 09:37; Start 03/11/19 at 09:00; Stop 03/11/19 at 12:50; Status DC Hydralazine HCl (Apresoline Inj) 10 mg PRN Q4HRS PRN IVP ELEVATED BP, SEE COMMENTS; Start 03/10/19 at 10:15; Stop 03/12/19 at 09:37; Status DC Furosemide (Lasix) 40 mg DAILY IVP Last administered on 03/11/19at 09:37; Start 03/10/19 at 11:00; Stop 03/11/19 at 11:24; Status DC Insulin Human Lispro (HumaLOG) 0-9 UNITS TIDWMEALS SQ ; Start 03/10/19 at 12:00; Stop 03/10/19 at 17:57; Status DC Dextrose (Dextrose 50%-Water Syringe) 12.5 gm PRN Q15MIN PRN IV SEE COMMENTS; Start 03/10/19 at 11:15; Stop 03/12/19 at 16:47; Status DC Dextrose 250 ml PRN Q15MIN PRN IV SEE COMMENTS; Start 03/10/19 at 11:15; Stop 03/10/19 at 11:05; Status DC Iohexol (Omnipaque 350 Mg/ml) 100 ml 1X ONCE IV Last administered on 03/10/19at 14:05; Start 03/10/19 at 11:45; Stop 03/10/19 at 11:47; Status DC Info (CONTRAST GIVEN -- Rx MONITORING) 1 each PRN DAILY PRN MC SEE COMMENTS; Start 03/10/19 at 11:45; Stop 03/12/19 at 11:44; Status DC Piperacillin Sod/ Tazobactam Sod (Zosyn Per Pharmacy) 1 each PRN DAILY PRN MC SEE COMMENTS; Start 03/10/19 at 11:45; Stop 03/25/19 at 08:36; Status DC Vancomycin HCl (Vanco Per Pharmacy) 1 each PRN DAILY PRN MC SEE COMMENTS Last administered on 03/11/19at 09:42; Start 03/10/19 at 11:45; Stop 03/11/19 at 13:57; Status DC Vancomycin HCl 2 gm/Sodium Chloride 500 ml @ 250 mls/hr 1X ONCE IV Last administered on 03/10/19at 12:41; Start 03/10/19 at 13:00; Stop 03/10/19 at 14:59; Status DC Piperacillin Sod/ Tazobactam Sod 3.375 gm/Sodium Chloride 50 ml @ 100 mls/hr Q6HRS IV Last administered on 03/24/19at 05:45; Start 03/10/19 at 12:30; Stop 03/24/19 at 07:24; Status DC Vancomycin HCl 1.75 gm/Sodium Chloride 500 ml @ 250 mls/hr Q12H IV Last administered on 03/11/19at 12:43; Start 03/11/19 at 01:00; Stop 03/11/19 at 13:57; Status DC Vancomycin HCl (Vancomycin Trough Level) 1 each 1X ONCE MC ; Start 03/12/19 at 12:30; Stop 03/12/19 at 12:31; Status Cancel Insulin Human Lispro (HumaLOG) 0-9 UNITS Q6HRS SQ ; Start 03/11/19 at 00:00; Stop 03/27/19 at 09:06; Status DC Magnesium Sulfate/ Dextrose 100 ml @ 50 mls/hr DAILY IV Last administered on 03/11/19at 09:28; Start 03/11/19 at 09:00; Stop 03/14/19 at 08:59; Status DC Potassium Phosphate 27.2 mmol/Sodium Chloride 259.0667 ml @ 64.753 m... 1X ONCE IV Last administered on 03/11/19at 09:28; Start 03/11/19 at 10:00; Stop 03/11/19 at 14:00; Status DC Potassium Phosphate 27.2 mmol/Sodium Chloride 259.0667 ml @ 64.753 m... 1X ONCE IV ; Start 03/11/19 at 14:00; Stop 03/11/19 at 18:00; Status DC Lorazepam (Ativan Inj) 1 mg PRN Q1HR PRN IV ANXIETY Last administered on 03/14/19at 16:32; Start 03/11/19 at 11:00; Stop 03/19/19 at 10:31; Status DC Sodium Chloride 1,000 ml @ 1,000 mls/hr 1X ONCE IV Last administered on 03/11/19at 12:06; Start 03/11/19 at 11:30; Stop 03/11/19 at 12:29; Status DC Norepinephrine Bitartrate 250 ml @ 27.837 mls/ hr CONT PRN IV SEE I/O RECORD Last administered on 03/13/19at 04:13; Start 03/11/19 at 13:00; Stop 03/26/19 at 09:22; Status DC Hydralazine HCl (Apresoline Inj) 10 mg PRN Q4HRS PRN IVP ELEVATED BP, SEE COMMENTS Last administered on 04/08/19at 23:31; Start 03/11/19 at 13:00 Linezolid/Dextrose 300 ml @ 300 mls/hr Q12HR IV Last administered on 03/22/19at 21:38; Start 03/11/19 at 21:00; Stop 03/23/19 at 07:48; Status DC Potassium Chloride/Water 50 ml @ 50 mls/hr Q1H IV Last administered on 03/11/19at 17:28; Start 03/11/19 at 16:00; Stop 03/11/19 at 17:59; Status DC Heparin Sodium (Porcine) (Heparin Sodium) 5,000 unit Q8HRS SQ Last administered on 04/07/19at 05:53; Start 03/11/19 at 22:00; Stop 04/07/19 at 09:45; Status DC Multi-Ingred Cream/Lotion/Oil/ Oint (Artificial Tears Eye Ointment) 1 zuri PRN Q1 HR PRN OU DRY EYE; Start 03/12/19 at 09:00 Potassium Chloride/Water 50 ml @ 50 mls/hr 1X ONCE IV Last administered on 03/12/19at 09:44; Start 03/12/19 at 10:00; Stop 03/12/19 at 10:59; Status DC Potassium Chloride/Water 50 ml @ 50 mls/hr 1X ONCE IV ; Start 03/12/19 at 10:30; Stop 03/12/19 at 11:31; Status DC Insulin Human Lispro (HumaLOG) 0-9 UNITS TIDWMEALS SQ ; Start 03/12/19 at 17:00; Stop 03/12/19 at 16:24; Status DC Dextrose (Dextrose 50%-Water Syringe) 12.5 gm PRN Q15MIN PRN IV SEE COMMENTS; Start 03/12/19 at 16:15 Dextrose 250 ml PRN Q15MIN PRN IV SEE COMMENTS; Start 03/12/19 at 16:15; Stop 03/27/19 at 08:59; Status DC Insulin Human Lispro (HumaLOG) 0-9 UNITS Q6HRS SQ Last administered on 03/26/19at 00:37; Start 03/12/19 at 18:00; Stop 04/10/19 at 11:37; Status DC Dexmedetomidine HCl 400 mcg/ Sodium Chloride 100 ml @ 0 mls/hr CONT PRN IV ANXIETY / AGITATION Last administered on 03/21/19at 04:33; Start 03/12/19 at 20:30; Stop 03/26/19 at 09:22; Status DC Sodium Chloride 500 ml @ 500 mls/hr 1X PRN PRN IV see comments Last administered on 03/12/19at 23:22; Start 03/12/19 at 20:30; Stop 03/30/19 at 14:05; Status DC Atropine Sulfate (ATROPINE 0.5mg SYRINGE) 0.5 mg PRN Q5MIN PRN IV SEE COMMENTS; Start 03/12/19 at 20:30; Stop 03/30/19 at 14:06; Status DC Vecuronium [place] (Norcuron Bolus) 10 mg PRN Q1HR PRN IV OVERBREATHING VENT Last administered on 03/25/19at 10:49; Start 03/13/19 at 07:30; Stop 04/07/19 at 09:45; Status DC Perflutren Protein Type A Microsphe (Optison) 0.66 mg STK-MED ONCE IV ; Start 03/13/19 at 09:08; Stop 03/13/19 at 09:08; Status DC Perflutren Protein Type A Microsphe (Optison) 0.66 mg 1X ONCE IV Last administered on 03/13/19at 09:40; Start 03/13/19 at 09:15; Stop 03/13/19 at 09:16; Status DC Furosemide (Lasix) 40 mg 1X ONCE IVP Last administered on 03/13/19at 13:32; Start 03/13/19 at 10:30; Stop 03/13/19 at 10:31; Status DC Daptomycin 1320 mg/Sodium Chloride 50 ml @ 100 mls/hr ONCE ONCE IV Last administered on 03/15/19at 13:53; Start 03/15/19 at 13:00; Stop 03/16/19 at 09:33; Status DC Daptomycin 1340 mg/Sodium Chloride 50 ml @ 100 mls/hr Q24H IV ; Start 03/16/19 at 08:45; Status UNV Daptomycin 1340 mg/Sodium Chloride 50 ml @ 100 mls/hr Q24H IV ; Start 03/16/19 at 09:00; Status Cancel Daptomycin 830 mg/ Sodium Chloride 50 ml @ 100 mls/hr Q24H IV Last administered on 03/18/19at 15:03; Start 03/16/19 at 14:00; Stop 03/19/19 at 07:41; Status DC Methylprednisolone Sodium Succinate (SOLU-Medrol 125MG VIAL) 100 mg Q8HRS IV Last administered on 03/23/19at 05:54; Start 03/16/19 at 12:00; Stop 03/23/19 at 12:03; Status DC Furosemide (Lasix) 40 mg 1X ONCE IVP Last administered on 03/16/19at 16:46; Start 03/16/19 at 16:30; Stop 03/16/19 at 16:31; Status DC Fentanyl Citrate (Fentanyl 600 Mcg/30 ml [employer] OFF[employer]) 600 mcg STK-MED ONCE IV ; Start 03/13/19 at 17:00; Stop 03/17/19 at 11:02; Status DC Furosemide 100 mg/ Sodium Chloride 100 ml @ 5 mls/hr CONT PRN IV SEE I/O RECORD Last administered on 03/18/19at 00:20; Start 03/17/19 at 15:45; Stop 03/18/19 at 10:36; Status DC Furosemide 100 mg/ Sodium Chloride 100 ml @ 5 mls/hr CONT PRN IV SEE I/O RECORD Last administered on 03/21/19at 08:34; Start 03/18/19 at 10:45; Stop 03/21/19 at 12:57; Status DC Lorazepam (Ativan Inj) 2 mg PRN Q1HR PRN IV ANXIETY Last administered on 04/04/19at 00:30; Start 03/19/19 at 10:45; Stop 04/07/19 at 09:45; Status DC Lisinopril (Prinivil) 5 mg DAILY PO Last administered on 04/15/19at 09:07; Start 03/21/19 at 11:30 Amlodipine Besylate (Norvasc) 10 mg DAILY PO Last administered on 04/15/19at 09:07; Start 03/21/19 at 11:30 Furosemide 100 mg/ Sodium Chloride 100 ml @ 10 mls/hr CONT PRN IV SEE I/O RECORD Last administered on 03/22/19at 05:05; Start 03/21/19 at 16:00; Stop 03/22/19 at 12:39; Status DC Scopolamine (Transderm-Scop) 1 patch Q3DAYS TD Last administered on 04/06/19at 10:24; Start 03/22/19 at 11:00; Stop 04/07/19 at 09:45; Status DC Furosemide 100 mg/ Sodium Chloride 100 ml @ 5 mls/hr CONT PRN IV SEE I/O RECORD Last administered on 03/22/19at 21:38; Start 03/22/19 at 12:45; Stop 03/23/19 at 17:48; Status DC Methylprednisolone Sodium Succinate (SOLU-Medrol 125MG VIAL) 50 mg Q8HRS IV Last administered on 03/27/19at 05:30; Start 03/23/19 at 14:00; Stop 03/27/19 at 11:20; Status DC Insulin Human Lispro (HumaLOG) 0-5 UNITS TIDWMEALS SQ ; Start 03/27/19 at 09:30; Status Cancel Dextrose (Dextrose 50%-Water Syringe) 12.5 gm PRN Q15MIN PRN IV SEE COMMENTS; Start 03/27/19 at 09:00; Status Cancel Dextrose 250 ml PRN Q15MIN PRN IV SEE COMMENTS; Start 03/27/19 at 09:00; Status Cancel Methylprednisolone Sodium Succinate (SOLU-Medrol 40MG VIAL) 30 mg Q8HRS IV Last administered on 04/02/19at 06:28; Start 03/27/19 at 14:00; Stop 04/02/19 at 11:19; Status DC Furosemide (Lasix) 40 mg 1X ONCE IVP Last administered on 03/27/19at 11:58; Start 03/27/19 at 12:00; Stop 03/27/19 at 12:01; Status DC Furosemide (Lasix) 40 mg 1X ONCE IVP Last administered on 03/28/19at 10:15; Start 03/28/19 at 09:30; Stop 03/28/19 at 09:46; Status DC Furosemide (Lasix) 40 mg 1X ONCE IVP Last administered on 03/29/19at 09:44; Start 03/29/19 at 09:30; Stop 03/29/19 at 09:31; Status DC Sodium Chloride 1,000 ml @ 1,000 mls/hr 1X ONCE IV Last administered on 03/29/19at 20:41; Start 03/29/19 at 20:30; Stop 03/29/19 at 21:29; Status DC Norepinephrine Bitartrate 250 ml @ 38.554 mls/ hr CONT PRN IV SEE I/O RECORD; Start 03/29/19 at 20:30; Stop 04/12/19 at 13:41; Status DC Furosemide (Lasix) 40 mg 1X ONCE IVP Last administered on 03/30/19at 10:42; S tart 03/30/19 at 10:15; Stop 03/30/19 at 10:16; Status DC Sodium Bicarbonate (Sodium Bicarb Adult 8.4% Syr) 50 meq STK-MED ONCE .ROUTE ; Start 03/31/19 at 17:28; Stop 03/31/19 at 17:29; Status DC Lactic Acid (Lac-Hydrin) 1 zuri BID TP Last administered on 04/14/19at 20:44; Start 04/01/19 at 21:00 Methylprednisolone Sodium Succinate (SOLU-Medrol 40MG VIAL) 30 mg DAILY IV Last administered on 04/07/19at 05:47; Start 04/03/19 at 09:00; Stop 04/07/19 at 09:45; Status DC Furosemide (Lasix) 40 mg 1X ONCE IVP Last administered on 04/02/19at 12:09; Start 04/02/19 at 11:30; Stop 04/02/19 at 11:35; Status DC Furosemide (Lasix) 40 mg 1X ONCE IVP ; Start 04/02/19 at 12:00; Stop 04/02/19 at 12:01; Status DC Dexmedetomidine HCl 400 mcg/ Sodium Chloride 100 ml @ 0 mls/hr CONT PRN IV ANXIETY / AGITATION Last administered on 04/03/19at 11:03; Start 04/02/19 at 16:00; Stop 04/07/19 at 09:45; Status DC Sodium Chloride 1,000 ml @ 1,000 mls/hr 1X ONCE IV Last administered on 04/02/19at 22:00; Start 04/02/19 at 22:00; Stop 04/02/19 at 22:59; Status DC Ondansetron HCl (Zofran) 4 mg 1X ONCE IM Last administered on 04/03/19at 12:39; Start 04/03/19 at 12:45; Stop 04/03/19 at 12:46; Status DC Acetaminophen (Tylenol) 500 mg PRN Q6HRS PRN PO MILD PAIN / TEMP Last administered on 04/11/19at 11:41; Start 04/03/19 at 18:30 Ondansetron HCl (Zofran) 4 mg PRN Q6HRS PRN IVP NAUSEA/VOMITING Last administered on 04/04/19at 21:04; Start 04/03/19 at 18:30 Amino Acids/ Glycerin/ Electrolytes 1,000 ml @ 50 mls/hr Q20H IV Last administered on 04/13/19at 08:43; Start 04/06/19 at 12:15; Stop 04/13/19 at 13:03; Status DC Potassium Chloride (Klor-Con) 40 meq 1X ONCE PO Last administered on 04/07/19at 17:40; Start 04/07/19 at 11:45; Stop 04/07/19 at 11:46; Status DC Insulin Human Lispro (HumaLOG) 0-9 UNITS PRN Q6HRS PRN SQ PER SLIDING SCALE; Start 04/10/19 at 11:45; Stop 04/11/19 at 20:56; Status DC Insulin Human Lispro (HumaLOG) 0-9 UNITS TIDWMEALS SQ ; Start 04/12/19 at 08:00 Active Scripts Active Norvasc (Amlodipine Besylate) 5 Mg Tablet 1 Tab PO DAILY Lisinopril 5 Mg Tablet 1 Tab PO DAILY Reported Hydrochlorothiazide Tablet (Hydrochlorothiazide) 25 Mg Tablet 25 Mg PO DAILY Vitals/I & O Vital Sign - Last 24 Hours 04/14/19 04/14/19 04/14/19 04/14/19 11:00 11:34 15:00 16:02 Temp 98.3 98.0 98.3 98.0 Pulse 99 89 Resp 20 18 B/P (MAP) 122/59 (80) 137/85 (102) Pulse Ox 92 92 O2 Delivery Nasal Cannula Nasal Cannula Nasal Cannula Nasal Cannula O2 Flow Rate 0.5 1.0 0.5 1.0 04/14/19 04/14/19 04/14/19 04/14/19 19:00 19:55 20:00 20:00 Temp 98.2 98.2 Pulse 97 Resp 22 B/P (MAP) 123/69 (87) Pulse Ox 96 98 O2 Delivery Nasal Cannula Nasal Cannula Nasal Cannula O2 Flow Rate 0.5 1.0 1.0 1.0 04/14/19 04/15/19 04/15/19 04/15/19 23:00 03:00 07:00 08:02 Temp 97.5 97.5 98.5 97.5 97.5 98.5 Pulse 93 94 83 Resp 20 20 20 B/P (MAP) 139/82 (101) 146/91 (109) 145/83 (103) Pulse Ox 95 95 94 95 O2 Delivery Nasal Cannula Nasal Cannula Nasal Cannula Nasal Cannula O2 Flow Rate 0.5 0.5 2.0 1.0 04/15/19 04/15/19 09:07 09:07 Pulse 83 83 B/P (MAP) 145/83 145/83 Intake and Output 04/14/19 04/14/19 04/15/19 15:00 23:00 07:00 Intake Total 860 ml Output Total 200 ml 200 ml 250 ml Balance -200 ml -200 ml 610 ml PRICILA GOMEZ MD Apr 15, 2019 09:52
[2019-04-15 11:00] VITALS: BP 129/64
[2019-04-15 15:00] VITALS: BP 119/75
--- NOTE | 2019-04-15 15:57 | PDOC ---
PROGRESS NOTES Assessment Assessment Myoclonic movements. Respiratory failure. ARDS. DM. HTN. COPD. SHARON. Morbid obesity. Vaping. RECOMMENDATIONS/PLAN: Continue ASA daily. Continue medical treatment. OT/PT. Weight reduction. FU with PCP. PAST MEDICAL HISTORY: Hypertension. Ascending thoracic aorta 4.4 cm. Chronic lymphedema. History of congestive heart failure. Chronic obstructive pulmonary disease. Obstructive sleep apnea. ALLERGIES: No known allergies to drugs. FAMILY HISTORY: Hypertension. SOCIAL HISTORY: He smokes less than a pack a day. He does not drink alcohol or use recreational drugs. PAST SURGICAL HISTORY: No major surgery recently. MEDICATIONS: Refer to [facility] REVIEW OF SYSTEMS: Constitutional: Morbid obesity. Head: No recent traumatic brain or head injury. Skin: No edema, or rash. Ear: No infection. Eyes: No vision loss, or diplopia. Nose: No bleeding or purulent discharges. Hearing: No hearing decrease. Neck: No injury. Cardiac: HTN Pulmonary: COPD. GI: No GI Ulcer, GI bleeding Urinary/genital: No dysuria, incontinence, urinary retention. Endocrine: Diabetes Mellitus. Skeletomuscular: No muscular atrophy. Neurological: see HP. Psychiatric: Denies drug use/abuse. Otherwise, not [id number] review of systems. PHYSICAL EXAMINATION: General appearance in subacute distress. HEENT: Normocephalic and nontraumatic. Eyes, nose, ears, and throat are unremarkable. Neck is supple. No lymphadenopathy. No Crepitus. Cardiovascular: S1, S2, regular rate and rhythm. Pulmonary: Mildly decreased to auscultation bilaterally. Abdomen: Bowel sounds are positive. Abdomen is soft, nontender, and nondistended. Extremities: Chronic significant skin changes as venous stasis in LE. NEUROLOGICAL EXAMINATION: Awake. Oriented partially to time, place and person. PERRL. EOMI. CN: no focal findings. Muscle tone: within normal. Muscle strength: 4-5 UE, 3 LE DTR: 0-1 due to obesity. Plantar reflex: Flexor response bilaterally Gait: not able to walk. Sensory exam: no acute abnormal findings. Objective Objective Vital Signs Date Time Temp Pulse Resp B/P (MAP) Pulse Ox O2 Delivery O2 Flow Rate FiO2 04/15/19 15:41 95 Nasal Cannula 1.0 04/15/19 15:00 97.7 96 20 119/75 (90) 97.7 Intake and Output 04/15/19 06:59 Intake Total 860 ml Output Total 650 ml Balance 210 ml Intake Oral 860 ml Output Urine Total 650 ml Vitals Signs Vitals VS - Last 72 Hours, by Label Date Time Temp Pulse Resp B/P (MAP) Pulse Ox O2 Delivery O2 Flow Rate FiO2 04/15/19 15:41 95 Nasal Cannula 1.0 04/15/19 15:00 97.7 96 20 119/75 (90) 98 Nasal Cannula 2.0 97.7 04/15/19 13:01 95 Nasal Cannula 1.0 04/15/19 11:00 98.6 106 20 129/64 (85) 93 Room Air 98.6 04/15/19 09:07 83 145/83 04/15/19 09:07 83 145/83 04/15/19 08:02 95 Nasal Cannula 1.0 04/15/19 08:00 Nasal Cannula 1.0 04/15/19 07:00 98.5 83 20 145/83 (103) 94 Nasal Cannula 2.0 98.5 04/15/19 03:00 97.5 94 20 146/91 (109) 95 Nasal Cannula 0.5 97.5 04/14/19 23:00 97.5 93 20 139/82 (101) 95 Nasal Cannula 0.5 97.5 04/14/19 20:00 Nasal Cannula 1.0 04/14/19 20:00 1.0 04/14/19 19:55 98 Nasal Cannula 1.0 04/14/19 19:00 98.2 97 22 123/69 (87) 96 Nasal Cannula 0.5 98.2 04/14/19 16:02 Nasal Cannula 1.0 04/14/19 15:00 98.0 89 18 137/85 (102) 92 Nasal Cannula 0.5 98.0 04/14/19 11:34 Nasal Cannula 1.0 04/14/19 11:00 98.3 99 20 122/59 (80) 92 Nasal Cannula 0.5 98.3 04/14/19 08:30 Nasal Cannula 1.0 04/14/19 08:30 1.0 04/14/19 08:24 91 122/67 04/14/19 08:19 91 122/67 04/14/19 07:33 95 Nasal Cannula 1.0 04/14/19 07:00 98.1 91 18 122/67 (85) 95 Nasal Cannula 1.0 98.1 Laboratory Laboratory Laboratory Tests Test 04/14/19 16:10 04/15/19 06:05 04/15/19 08:15 04/15/19 11:48 Glucose (Fingerstick) 87 mg/dL (70-99) 106 mg/dL (70-99) 106 mg/dL (70-99) White Blood Count 7.3 x10^3/uL (4.0-11.0) Red Blood Count 3.22 x10^6/uL (4.30-5.70) Hemoglobin 8.5 g/dL (13.0-17.5) Hematocrit 26.5 % (39.0-53.0) Mean Corpuscular Volume 83 fL (79-100) Mean Corpuscular Hemoglobin 26 pg (25-35) Mean Corpuscular Hemoglobin Concent 32 g/dL (31-37) Red Cell Distribution Width 21.7 % (11.5-14.5) Platelet Count 256 x10^3/uL (140-400) Neutrophils (%) (Auto) 59 % (31-73) Lymphocytes (%) (Auto) 20 % (24-48) Monocytes (%) (Auto) 9 % (0-9) Eosinophils (%) (Auto) 11 % (0-3) Basophils (%) (Auto) 0 % (0-3) Neutrophils # (Auto) 4.3 x10^3/uL (1.8-7.7) Lymphocytes # (Auto) 1.5 x10^3/uL (1.0-4.8) Monocytes # (Auto) 0.7 x10^3/uL (0.0-1.1) Eosinophils # (Auto) 0.8 x10^3/uL (0.0-0.7) Basophils # (Auto) 0.0 x10^3/uL (0.0-0.2) Sodium Level 141 mmol/L (136-145) Potassium Level 3.5 mmol/L (3.5-5.1) Chloride Level 106 mmol/L (98-107) Carbon Dioxide Level 26 mmol/L (21-32) Anion Gap 9 (6-14) Blood Urea Nitrogen 10 mg/dL (8-26) Creatinine 0.6 mg/dL (0.7-1.3) Estimated GFR (Cockcroft-Gault) 174.0 BUN/Creatinine Ratio 17 (6-20) Glucose Level 99 mg/dL (70-99) Calcium Level 8.8 mg/dL (8.5-10.1) Total Bilirubin 1.1 mg/dL (0.2-1.0) Aspartate Amino Transf (AST/SGOT) 16 U/L (15-37) Alanine Aminotransferase (ALT/SGPT) 31 U/L (16-63) Alkaline Phosphatase 86 U/L (46-116) Total Protein 6.4 g/dL (6.4-8.2) Albumin 2.7 g/dL (3.4-5.0) Albumin/Globulin Ratio 0.7 (1.0-1.7) Microbiology 03/16/19 - Final, Complete 03/16/19 - Final, Complete 03/16/19 Gram Stain Evaluation - Final, Complete 03/16/19 Sputum Culture - Final, Complete 03/16/19 Sputum Result 1 - Final, Complete 03/16/19 Blood Culture - Final, Complete NO GROWTH AFTER 5 DAYS 03/09/19 Urine Culture - Final, Complete 03/09/19 Urine Culture Result 1 (WIL) - Final, Complete Comment Review of Relevant I have reviewed the following items peter (where applicable) has been applied. MARLENA MCFARLANE MD Apr 15, 2019 15:57
[2019-04-15 19:00] VITALS: BP 126/88
[2019-04-15 23:00] VITALS: BP 140/70
[2019-04-16 03:00] VITALS: BP 106/91
[2019-04-16 07:00] VITALS: BP 98/65
[2019-04-16] MEDS: IPRATRPIUM/ALBUTEROL 0.5/2.5MG 3 ML NEBU. NEB SCH ×4 (07:14→19:49)
[2019-04-16] MEDS: ACETAMINOPHEN 500 MG TABLET PO PRN (07:16)
[2019-04-16] MEDS: INSULIN LISPRO 300 UNITS/3 ML VIAL. SQ SCH ×3 (08:00→17:00)
[2019-04-16] MEDS ORDERED: guaiFENesin DM 200MG/20MG 10 ML SYRUP PO PRN (08:45)
[2019-04-16] MEDS: LISINOPRIL 5 MG TABLET. PO SCH (09:00)
[2019-04-16] MEDS: amLODIPine BESYLATE 10 MG TABLET PO SCH (09:00)
[2019-04-16] MEDS: AMMONIUM LACTATE 12% TOPICAL LOTION 226GM BOTTLE. TP SCH ×2 (09:00→21:19)
--- NOTE | 2019-04-16 09:00 | NUR ---
SW following pt. GARRY spoke with Ivette and pt's other sister, Gaby, phone: [phone] and discussed dc plan. Gaby requested if pt is able to go to [facility] and GARRY discussed [facility] only accept TBI pts. Pt's both sisters agreeable with Emergency/LTC placement and agreeable with SW sending referral to various LTC. Plan 1. GARRY phoned and faxed referral to [facility], [facility], [place], [facility], [facility], and [facility] Pt acceptance and admission pending. 2. Will continue to follow pt.
--- NOTE | 2019-04-16 10:28 | PDOC ---
PROGRESS NOTES Chief Complaint Chief Complaint Acute Hypercapnic Respiratory Failure/ARDS due to vaping - intubated > 3 weeks (extubated 04/03) Pulmonary Edema Bilateral Lung Infiltrates Obstructive sleep apnea OSMAN Increased Troponin Morbid Obesity Pulmonary HTN Tobacco use Critical illness myopathy History of Present Illness History of Present Illness transferred out of ICU Day # 38, self pay On dysphagia 3 diet Playing video games then sleeps MEDICAID pending Was intubated > 3 weeks LAbs VS ok PLAn: CPM, SW on case On recovery period, medically clear/ready to dc Dc dispo in the works, too weak (critical illness myopathy) Vitals Vitals Vital Signs Date Time Temp Pulse Resp B/P (MAP) Pulse Ox O2 Delivery O2 Flow Rate FiO2 04/16/19 07:15 97 Room Air 04/16/19 07:00 98.1 98 18 98/65 (76) 98.1 04/15/19 20:00 1.0 Physical Exam Physical Exam GENERAL: Orally intubated/ sedated - lightly, HEENT: opened eyes Pupils equal, nml conj OGT/ETT NECK: Supple LUNGS: dec bs at bases HEART: S1 and S2, regular. ABDOMEN: Obese, soft, +BS : Ramos in place fecal tube in place EXTREMITIES: Trace edema - MITTS SKIN: Chronic stasis dermatitis on the lower extremity. NEUROLOGIC: Awake IVS; Old RIJ site clean. RUE - PICC clean General: Alert, Oriented X3, Cooperative, No acute distress, mild distress, Other (short neck , Mallampati 4 ON VENT) Heart: Regular rate (SR), Normal S1, Normal S2, Other (distante heart sounds) Lungs: Clear, Crackles, Other (decrease bs) Abdomen: Normal bowel sounds, Soft, No tenderness, No hepatosplenomegaly, No masses Extremities: No clubbing, No cyanosis, No edema, Normal pulses, No tenderness/swelling Skin: No rashes, No breakdown, No significant lesion Labs LABS Laboratory Tests Test 04/15/19 11:48 04/15/19 17:02 04/15/19 20:36 04/16/19 07:52 Glucose (Fingerstick) 106 mg/dL (70-99) 95 mg/dL (70-99) 101 mg/dL (70-99) 96 mg/dL (70-99) Review of Systems Review of Systems asleep i did not awaken Assessment and Plan Assessmemt and Plan Problems Medical Problems: (1) CHF exacerbation Status: Acute (2) COPD exacerbation Status: Acute (3) Hypoxia Status: Acute (4) NSTEMI (non-ST elevated myocardial infarction) Status: Acute (5) Respiratory failure Status: Acute Comment Review of Relevant I have reviewed the following items peter (where applicable) has been applied. Labs Laboratory Tests Test 04/14/19 12:12 04/14/19 16:10 04/15/19 06:05 04/15/19 08:15 Glucose (Fingerstick) 114 mg/dL (70-99) 87 mg/dL (70-99) 106 mg/dL (70-99) White Blood Count 7.3 x10^3/uL (4.0-11.0) Red Blood Count 3.22 x10^6/uL (4.30-5.70) Hemoglobin 8.5 g/dL (13.0-17.5) Hematocrit 26.5 % (39.0-53.0) Mean Corpuscular Volume 83 fL (79-100) Mean Corpuscular Hemoglobin 26 pg (25-35) Mean Corpuscular Hemoglobin Concent 32 g/dL (31-37) Red Cell Distribution Width 21.7 % (11.5-14.5) Platelet Count 256 x10^3/uL (140-400) Neutrophils (%) (Auto) 59 % (31-73) Lymphocytes (%) (Auto) 20 % (24-48) Monocytes (%) (Auto) 9 % (0-9) Eosinophils (%) (Auto) 11 % (0-3) Basophils (%) (Auto) 0 % (0-3) Neutrophils # (Auto) 4.3 x10^3/uL (1.8-7.7) Lymphocytes # (Auto) 1.5 x10^3/uL (1.0-4.8) Monocytes # (Auto) 0.7 x10^3/uL (0.0-1.1) Eosinophils # (Auto) 0.8 x10^3/uL (0.0-0.7) Basophils # (Auto) 0.0 x10^3/uL (0.0-0.2) Sodium Level 141 mmol/L (136-145) Potassium Level 3.5 mmol/L (3.5-5.1) Chloride Level 106 mmol/L (98-107) Carbon Dioxide Level 26 mmol/L (21-32) Anion Gap 9 (6-14) Blood Urea Nitrogen 10 mg/dL (8-26) Creatinine 0.6 mg/dL (0.7-1.3) Estimated GFR (Cockcroft-Gault) 174.0 BUN/Creatinine Ratio 17 (6-20) Glucose Level 99 mg/dL (70-99) Calcium Level 8.8 mg/dL (8.5-10.1) Total Bilirubin 1.1 mg/dL (0.2-1.0) Aspartate Amino Transf (AST/SGOT) 16 U/L (15-37) Alanine Aminotransferase (ALT/SGPT) 31 U/L (16-63) Alkaline Phosphatase 86 U/L (46-116) Total Protein 6.4 g/dL (6.4-8.2) Albumin 2.7 g/dL (3.4-5.0) Albumin/Globulin Ratio 0.7 (1.0-1.7) Test 04/15/19 11:48 04/15/19 17:02 04/15/19 20:36 04/16/19 07:52 Glucose (Fingerstick) 106 mg/dL (70-99) 95 mg/dL (70-99) 101 mg/dL (70-99) 96 mg/dL (70-99) Laboratory Tests Test 04/15/19 11:48 04/15/19 17:02 04/15/19 20:36 04/16/19 07:52 Glucose (Fingerstick) 106 mg/dL (70-99) 95 mg/dL (70-99) 101 mg/dL (70-99) 96 mg/dL (70-99) Microbiology 03/16/19 - Final, Complete 03/16/19 - Final, Complete 03/16/19 Gram Stain Evaluation - Final, Complete 03/16/19 Sputum Culture - Final, Complete 03/16/19 Sputum Result 1 - Final, Complete 03/16/19 Blood Culture - Final, Complete NO GROWTH AFTER 5 DAYS 03/09/19 Urine Culture - Final, Complete 03/09/19 Urine Culture Result 1 (WIL) - Final, Complete Medications Current Medications Albuterol/ Ipratropium (Duoneb) 3 ml 1X ONCE NEB Last administered on 03/09/19at 21:21; Start 03/09/19 at 21:30; Stop 03/09/19 at 21:31; Status DC Dexamethasone Sodium Phosphate (Decadron) 10 mg 1X ONCE IV Last administered on 03/09/19at 22:29; Start 03/09/19 at 22:00; Stop 03/09/19 at 22:01; Status DC Propofol 100 ml @ 0 mls/hr CONT PRN IV SEE PROTOCOL Last administered on 03/10/19at 07:19; Start 03/09/19 at 22:30; Stop 03/10/19 at 07:28; Status DC Fentanyl Citrate (Fentanyl 2ml Vial) 50 mcg PRN Q1HR PRN IV SEE COMMENTS; Start 03/09/19 at 22:30; Stop 03/10/19 at 07:28; Status DC Chlorhexidine Gluconate (Peridex) 15 ml BID MM Last administered on 04/05/19at 08:06; Start 03/10/19 at 09:00; Stop 04/05/19 at 11:08; Status DC Famotidine (Pepcid Vial) 20 mg BID IVP Last administered on 04/06/19at 21:27; Start 03/10/19 at 09:00; Stop 04/07/19 at 09:45; Status DC Propofol 50 ml @ As Directed STK-MED ONCE IV ; Start 03/09/19 at 22:28; Stop 03/09/19 at 22:28; Status DC Albuterol/ Ipratropium (Duoneb) 3 ml 1X ONCE NEB Last administered on 03/10/19at 02:04; Start 03/09/19 at 23:00; Stop 03/09/19 at 23:01; Status DC Albuterol/ Ipratropium (Duoneb) 3 ml 1X ONCE NEB Last administered on 03/10/19at 02:04; Start 03/09/19 at 23:00; Stop 03/09/19 at 23:01; Status DC Fentanyl Citrate (Fentanyl 2ml Vial) 100 mcg 1X ONCE IV Last administered on 03/09/19at 23:31; Start 03/09/19 at 23:30; Stop 03/09/19 at 23:31; Status DC Bumetanide (Bumex) 1 mg 1X ONCE IV Last administered on 03/10/19at 00:21; Start 03/10/19 at 00:00; Stop 03/10/19 at 00:01; Status DC Heparin Sodium (Porcine) (Heparin Sodium) 4,000 unit 1X ONCE IV Last administered on 03/10/19at 00:31; Start 03/10/19 at 00:00; Stop 03/10/19 at 00:01; Status DC Heparin Sodium/ Dextrose 500 ml @ 0 mls/hr CONT PRN IV PER PROTOCOL Last administered on 03/10/19at 23:34; Start 03/09/19 at 23:45; Stop 03/11/19 at 16:13; Status DC Heparin Sodium (Porcine) (Heparin Sodium) 5,500 unit PRN Q6HRS PRN IV FOR UFH LEVEL LESS THAN 0.2 Last administered on 03/11/19at 00:57; Start 03/09/19 at 23:45; Stop 03/11/19 at 16:13; Status DC Aspirin (Aspirin Rectal Supp) 300 mg 1X ONCE MI Last administered on 03/10/19at 03:42; Start 03/10/19 at 00:00; Stop 03/10/19 at 00:01; Status DC Propofol 50 ml @ As Directed STK-MED ONCE IV ; Start 03/09/19 at 23:38; Stop 03/09/19 at 23:38; Status DC Propofol 50 ml @ As Directed STK-MED ONCE IV ; Start 03/09/19 at 23:38; Stop 03/09/19 at 23:38; Status DC Piperacillin Sod/ Tazobactam Sod 4.5 gm/Sodium Chloride 100 ml @ 200 mls/hr 1X ONCE IV Last administered on 03/10/19at 05:19; Start 03/10/19 at 00:30; Stop 03/10/19 at 00:59; Status DC Propofol 50 ml @ As Directed STK-MED ONCE IV ; Start 03/10/19 at 00:51; Stop 03/10/19 at 00:51; Status DC Propofol 50 ml @ As Directed STK-MED ONCE IV ; Start 03/10/19 at 01:14; Stop 03/10/19 at 01:15; Status DC Fentanyl Citrate (Fentanyl 2ml Vial) 100 mcg 1X ONCE IV Last administered on 03/10/19at 01:26; Start 03/10/19 at 01:45; Stop 03/10/19 at 01:46; Status DC Clonidine HCl (Catapres) 0.1 mg 1X ONCE PO ; Start 03/10/19 at 01:30; Stop 03/10/19 at 01:34; Status DC Midazolam HCl (Versed) 5 mg 1X ONCE IV Last administered on 03/10/19at 01:28; Start 03/10/19 at 01:30; Stop 03/10/19 at 01:34; Status DC Propofol 50 ml @ As Directed STK-MED ONCE IV ; Start 03/10/19 at 02:08; Stop 03/10/19 at 02:09; Status DC Propofol 50 ml @ As Directed STK-MED ONCE IV ; Start 03/10/19 at 02:36; Stop 03/10/19 at 02:36; Status DC Rocuronium Loma (Zemuron) 50 mg STK-MED ONCE .ROUTE ; Start 03/10/19 at 05:15; Stop 03/10/19 at 05:15; Status DC Etomidate (Amidate) 20 mg STK-MED ONCE IV ; Start 03/10/19 at 05:15; Stop 03/10/19 at 05:16; Status DC Fentanyl Citrate 30 ml @ 0 mls/hr CONT PRN IV SEE PROTOCOL Last administered on 04/03/19at 09:05; Start 03/10/19 at 07:30; Stop 04/07/19 at 09:44; Status DC Propofol 100 ml @ 0 mls/hr CONT PRN IV SEE PROTOCOL Last administered on 04/02/19at 15:10; Start 03/10/19 at 07:30; Stop 04/07/19 at 09:44; Status DC Fentanyl Citrate (Fentanyl 2ml Vial) 25 mcg PRN Q1HR PRN IV SEE COMMENTS; Start 03/10/19 at 07:30; Stop 04/07/19 at 09:44; Status DC Fentanyl Citrate (Fentanyl 2ml Vial) 50 mcg PRN Q1HR PRN IV SEE COMMENTS; Start 03/10/19 at 07:30; Stop 04/07/19 at 09:45; Status DC Artificial Tears (Artificial Tears) 1 drop PRN Q1HR PRN OU DRY EYE, 1ST CHOICE Last administered on 03/13/19at 13:32; Start 03/10/19 at 07:30; Stop 04/07/19 at 09:45; Status DC Famotidine (Pepcid Vial) 20 mg BID IVP ; Start 03/10/19 at 09:00; Status UNV Morphine Sulfate (Morphine Sulfate) 2 mg PRN Q1HR PRN IV SEE COMMENTS. Last administered on 03/25/19at 09:18; Start 03/10/19 at 07:30; Stop 04/07/19 at 09:45; Status DC Morphine Sulfate (Morphine Sulfate) 4 mg PRN Q1HR PRN IV SEE COMMENTS. Last administered on 03/31/19at 10:50; Start 03/10/19 at 07:30; Stop 04/07/19 at 09:45; Status DC Midazolam HCl 100 ml @ 0 mls/hr CONT PRN IV SEE PROTOCOL Last administered on 04/01/19at 02:07; Start 03/10/19 at 07:30; Stop 04/07/19 at 09:45; Status DC Levofloxacin/ Dextrose (Levaquin Per Pharmacy) 1 each PRN DAILY PRN MC SEE COMMENTS; Start 03/10/19 at 08:15; Stop 03/14/19 at 09:25; Status DC Albuterol/ Ipratropium (Duoneb) 3 ml RTQID NEB Last administered on 04/16/19at 07:14; Start 03/10/19 at 12:00 Sodium Chloride 1,000 ml @ 100 mls/hr Q10H IV Last administered on 03/10/19at 23:34; Start 03/10/19 at 08:15; Stop 03/11/19 at 16:02; Status DC Amlodipine Besylate (Norvasc) 5 mg DAILY PO Last administered on 03/10/19 09:13; Start 03/10/19 at 09:00; Stop 03/10/19 at 10:04; Status DC Hydrochlorothiazide (Hydrodiuril) 25 mg DAILY PO Last administered on 03/10/19 09:13; Start 03/10/19 at 09:00; Stop 03/10/19 at 10:04; Status DC Lisinopril (Prinivil) 5 mg DAILY PO Last administered on 03/10/19 09:13; Start 03/10/19 at 09:00; Stop 03/10/19 at 10:04; Status DC Levofloxacin/ Dextrose 100 ml @ 100 mls/hr Q24H IV Last administered on 03/14/19at 08:10; Start 03/10/19 at 09:00; Stop 03/14/19 at 09:25; Status DC Aspirin (Amanda Aspirin) 325 mg 1X ONCE PO Last administered on 03/10/19at 10:55; Start 03/10/19 at 10:30; Stop 03/10/19 at 10:31; Status DC Aspirin (Children'S Aspirin) 81 mg DAILYWBKFT PO Last administered on 04/15/19at 09:06; Start 03/11/19 at 08:00 Amlodipine Besylate (Norvasc) 10 mg DAILY PO Last administered on 03/11/19at 09:37; Start 03/11/19 at 09:00; Stop 03/11/19 at 12:50; Status DC Hydralazine HCl (Apresoline Inj) 10 mg PRN Q4HRS PRN IVP ELEVATED BP, SEE COMMENTS; Start 03/10/19 at 10:15; Stop 03/12/19 at 09:37; Status DC Furosemide (Lasix) 40 mg DAILY IVP Last administered on 03/11/19at 09:37; Start 03/10/19 at 11:00; Stop 03/11/19 at 11:24; Status DC Insulin Human Lispro (HumaLOG) 0-9 UNITS TIDWMEALS SQ ; Start 03/10/19 at 12:00; Stop 03/10/19 at 17:57; Status DC Dextrose (Dextrose 50%-Water Syringe) 12.5 gm PRN Q15MIN PRN IV SEE COMMENTS; Start 03/10/19 at 11:15; Stop 03/12/19 at 16:47; Status DC Dextrose 250 ml PRN Q15MIN PRN IV SEE COMMENTS; Start 03/10/19 at 11:15; Stop 03/10/19 at 11:05; Status DC Iohexol (Omnipaque 350 Mg/ml) 100 ml 1X ONCE IV Last administered on 03/10/19at 14:05; Start 03/10/19 at 11:45; Stop 03/10/19 at 11:47; Status DC Info (CONTRAST GIVEN -- Rx MONITORING) 1 each PRN DAILY PRN MC SEE COMMENTS; Start 03/10/19 at 11:45; Stop 03/12/19 at 11:44; Status DC Piperacillin Sod/ Tazobactam Sod (Zosyn Per Pharmacy) 1 each PRN DAILY PRN MC SEE COMMENTS; Start 03/10/19 at 11:45; Stop 03/25/19 at 08:36; Status DC Vancomycin HCl (Vanco Per Pharmacy) 1 each PRN DAILY PRN MC SEE COMMENTS Last administered on 03/11/19at 09:42; Start 03/10/19 at 11:45; Stop 03/11/19 at 13:57; Status DC Vancomycin HCl 2 gm/Sodium Chloride 500 ml @ 250 mls/hr 1X ONCE IV Last administered on 03/10/19at 12:41; Start 03/10/19 at 13:00; Stop 03/10/19 at 14:59; Status DC Piperacillin Sod/ Tazobactam Sod 3.375 gm/Sodium Chloride 50 ml @ 100 mls/hr Q6HRS IV Last administered on 03/24/19at 05:45; Start 03/10/19 at 12:30; Stop 03/24/19 at 07:24; Status DC Vancomycin HCl 1.75 gm/Sodium Chloride 500 ml @ 250 mls/hr Q12H IV Last administered on 03/11/19at 12:43; Start 03/11/19 at 01:00; Stop 03/11/19 at 13:57; Status DC Vancomycin HCl (Vancomycin Trough Level) 1 each 1X ONCE MC ; Start 03/12/19 at 12:30; Stop 03/12/19 at 12:31; Status Cancel Insulin Human Lispro (HumaLOG) 0-9 UNITS Q6HRS SQ ; Start 03/11/19 at 00:00; Stop 03/27/19 at 09:06; Status DC Magnesium Sulfate/ Dextrose 100 ml @ 50 mls/hr DAILY IV Last administered on 03/11/19at 09:28; Start 03/11/19 at 09:00; Stop 03/14/19 at 08:59; Status DC Potassium Phosphate 27.2 mmol/Sodium Chloride 259.0667 ml @ 64.753 m... 1X ONCE IV Last administered on 03/11/19at 09:28; Start 03/11/19 at 10:00; Stop 03/11/19 at 14:00; Status DC Potassium Phosphate 27.2 mmol/Sodium Chloride 259.0667 ml @ 64.753 m... 1X ONCE IV ; Start 03/11/19 at 14:00; Stop 03/11/19 at 18:00; Status DC Lorazepam (Ativan Inj) 1 mg PRN Q1HR PRN IV ANXIETY Last administered on 03/14/19at 16:32; Start 03/11/19 at 11:00; Stop 03/19/19 at 10:31; Status DC Sodium Chloride 1,000 ml @ 1,000 mls/hr 1X ONCE IV Last administered on 03/11at 12:06; Start 03/11/19 at 11:30; Stop 03/11/19 at 12:29; Status DC Norepinephrine Bitartrate 250 ml @ 27.837 mls/ hr CONT PRN IV SEE I/O RECORD Last administered on 03/13/19at 04:13; Start 03/11/19 at 13:00; Stop 03/26/19 at 09:22; Status DC Hydralazine HCl (Apresoline Inj) 10 mg PRN Q4HRS PRN IVP ELEVATED BP, SEE COMMENTS Last administered on 04/08/19at 23:31; Start 03/11/19 at 13:00 Linezolid/Dextrose 300 ml @ 300 mls/hr Q12HR IV Last administered on 03/22/19at 21:38; Start 03/11/19 at 21:00; Stop 03/23/19 at 07:48; Status DC Potassium Chloride/Water 50 ml @ 50 mls/hr Q1H IV Last administered on 03/11/19at 17:28; Start 03/11/19 at 16:00; Stop 03/11/19 at 17:59; Status DC Heparin Sodium (Porcine) (Heparin Sodium) 5,000 unit Q8HRS SQ Last administered on 04/07/19at 05:53; Start 03/11/19 at 22:00; Stop 04/07/19 at 09:45; Status DC Multi-Ingred Cream/Lotion/Oil/ Oint (Artificial Tears Eye Ointment) 1 zuri PRN Q1HR PRN OU DRY EYE; Start 03/12/19 at 09:00 Potassium Chloride/Water 50 ml @ 50 mls/hr 1X ONCE IV Last administered on 03/12/19at 09:44; Start 03/12/19 at 10:00; Stop 03/12/19 at 10:59; Status DC Potassium Chloride/Water 50 ml @ 50 mls/hr 1X ONCE IV ; Start 03/12/19 at 10:30; Stop 03/12/19 at 11:31; Status DC Insulin Human Lispro (HumaLOG) 0-9 UNITS TIDWMEALS SQ ; Start 03/12/19 at 17:00; Stop 03/12/19 at 16:24; Status DC Dextrose (Dextrose 50%-Water Syringe) 12.5 gm PRN Q15MIN PRN IV SEE COMMENTS; Start 03/12/19 at 16:15 Dextrose 250 ml PRN Q15MIN PRN IV SEE COMMENTS; Start 03/12/19 at 16:15; Stop 03/27/19 at 08:59; Status DC Insulin Human Lispro (HumaLOG) 0-9 UNITS Q6HRS SQ Last administered on 03/26/19at 00:37; Start 03/12/19 at 18:00; Stop 04/10/19 at 11:37; Status DC Dexmedetomidine HCl 400 mcg/ Sodium Chloride 100 ml @ 0 mls/hr CONT PRN IV ANXIETY / AGITATION Last administered on 03/21/19at 04:33; Start 03/12/19 at 20:30; Stop 03/26/19 at 09:22; Status DC Sodium Chloride 500 ml @ 500 mls/hr 1X PRN PRN IV see comments Last administered on 03/12/19at 23:22; Start 03/12/19 at 20:30; Stop 03/30/19 at 14:05; Status DC Atropine Sulfate (ATROPINE 0.5mg SYRINGE) 0.5 mg PRN Q5MIN PRN IV SEE COMMENTS; Start 03/12/19 at 20:30; Stop 03/30/19 at 14:06; Status DC Vecuronium Loma (Norcuron Bolus) 10 mg PRN Q1HR PRN IV OVERBREATHING VENT Last administered on 03/25/19at 10:49; Start 03/13/19 at 07:30; Stop 04/07/19 at 09:45; Status DC Perflutren Protein Type A Microsphe (Optison) 0.66 mg STK-MED ONCE IV ; Start 03/13/19 at 09:08; Stop 03/13/19 at 09:08; Status DC Perflutren Protein Type A Microsphe (Optison) 0.66 mg 1X ONCE IV Last administered on 03/13/19at 09:40; Start 03/13/19 at 09:15; Stop 03/13/19 at 09:16; Status DC Furosemide (Lasix) 40 mg 1X ONCE IVP Last administered on 03/13/19at 13:32; Start 03/13/19 at 10:30; Stop 03/13/19 at 10:31; Status DC Daptomycin 1320 mg/Sodium Chloride 50 ml @ 100 mls/hr ONCE ONCE IV Last administered on 03/15/19at 13:53; Start 03/15/19 at 13:00; Stop 03/16/19 at 09:33; Status DC Daptomycin 1340 mg/Sodium Chloride 50 ml @ 100 mls/hr Q24H IV ; Start 03/16/19 at 08:45; Status UNV Daptomycin 1340 mg/Sodium Chloride 50 ml @ 100 mls/hr Q24H IV ; Start 03/16/19 at 09:00; Status Cancel Daptomycin 830 mg/ Sodium Chloride 50 ml @ 100 mls/hr Q24H IV Last administered on 03/18/19at 15:03; Start 03/16/19 at 14:00; Stop 03/19/19 at 07:41; Status DC Methylprednisolone Sodium Succinate (SOLU-Medrol 125MG VIAL) 100 mg Q8HRS IV Last administered on 03/23/19at 05:54; Start 03/16/19 at 12:00; Stop 03/23/19 at 12:03; Status DC Furosemide (Lasix) 40 mg 1X ONCE IVP Last administered on 03/16/19at 16:46; S tart 03/16/19 at 16:30; Stop 03/16/19 at 16:31; Status DC Fentanyl Citrate (Fentanyl 600 Mcg/30 ml MEDICAL ADMINISTRATIVE ASSISTANT) 600 mcg STK-MED ONCE IV ; Start 03/13/19 at 17:00; Stop 03/17/19 at 11:02; Status DC Furosemide 100 mg/ Sodium Chloride 100 ml @ 5 mls/hr CONT PRN IV SEE I/O RECORD Last administered on 03/18/19at 00:20; Start 03/17/19 at 15:45; Stop 03/18/19 at 10:36; Status DC Furosemide 100 mg/ Sodium Chloride 100 ml @ 5 mls/hr CONT PRN IV SEE I/O RECORD Last administered on 03/21/19at 08:34; Start 03/18/19 at 10:45; Stop 03/21/19 at 12:57; Status DC Lorazepam (Ativan Inj) 2 mg PRN Q1HR PRN IV ANXIETY Last administered on 04/04/19at 00:30; Start 03/19/19 at 10:45; Stop 04/07/19 at 09:45; Status DC Lisinopril (Prinivil) 5 mg DAILY PO Last administered on 04/15/19at 09:07; Start 03/21/19 at 11:30 Amlodipine Besylate (Norvasc) 10 mg DAILY PO Last administered on 04/15/19at 09:07; Start 03/21/19 at 11:30 Furosemide 100 mg/ Sodium Chloride 100 ml @ 10 mls/hr CONT PRN IV SEE I/O RECORD Last administered on 03/22/19at 05:05; Start 03/21/19 at 16:00; Stop 03/22/19 at 12:39; Status DC Scopolamine (Transderm-Scop) 1 patch Q3DAYS TD Last administered on 04/06/19at 10:24; Start 03/22/19 at 11:00; Stop 04/07/19 at 09:45; Status DC Furosemide 100 mg/ Sodium Chloride 100 ml @ 5 mls/hr CONT PRN IV SEE I/O RECORD Last administered on 03/22/19at 21:38; Start 03/22/19 at 12:45; Stop 03/23/19 at 17:48; Status DC Methylprednisolone Sodium Succinate (SOLU-Medrol 125MG VIAL) 50 mg Q8HRS IV Last administered on 03/27/19at 05:30; Start 03/23/19 at 14:00; Stop 03/27/19 at 11:20; Status DC Insulin Human Lispro (HumaLOG) 0-5 UNITS TIDWMEALS SQ ; Start 03/27/19 at 09:30; Status Cancel Dextrose (Dextrose 50%-Water Syringe) 12.5 gm PRN Q15MIN PRN IV SEE COMMENTS; Start 03/27/19 at 09:00; Status Cancel Dextrose 250 ml PRN Q15MIN PRN IV SEE COMMENTS; Start 03/27/19 at 09:00; Status Cancel Methylprednisolone Sodium Succinate (SOLU-Medrol 40MG VIAL) 30 mg Q8HRS IV Last administered on 04/02/19at 06:28; Start 03/27/19 at 14:00; Stop 04/02/19 at 11:1 9; Status DC Furosemide (Lasix) 40 mg 1X ONCE IVP Last administered on 03/27/19at 11:58; Start 03/27/19 at 12:00; Stop 03/27/19 at 12:01; Status DC Furosemide (Lasix) 40 mg 1X ONCE IVP Last administered on 03/28/19at 10:15; Start 03/28/19 at 09:30; Stop 03/28/19 at 09:46; Status DC Furosemide (Lasix) 40 mg 1X ONCE IVP Last administered on 03/29/19at 09:44; Start 03/29/19 at 09:30; Stop 03/29/19 at 09:31; Status DC Sodium Chloride 1,000 ml @ 1,000 mls/hr 1X ONCE IV Last administered on 03/29/19at 20:41; Start 03/29/19 at 20:30; Stop 03/29/19 at 21:29; Status DC Norepinephrine Bitartrate 250 ml @ 38.554 mls/ hr CONT PRN IV SEE I/O RECORD; Start 03/29/19 at 20:30; Stop 04/12/19 at 13:41; Status DC Furosemide (Lasix) 40 mg 1X ONCE IVP Last administered on 03/30/19at 10:42; Start 03/30/19 at 10:15; Stop 03/30/19 at 10:16; Status DC Sodium Bicarbonate (Sodium Bicarb Adult 8.4% Syr) 50 meq STK-MED ONCE .ROUTE ; Start 03/31/19 at 17:28; Stop 03/31/19 at 17:29; Status DC Lactic Acid (Lac-Hydrin) 1 zuri BID TP Last administered on 04/15/19at 22:10; Start 04/01/19 at 21:00 Methylprednisolone Sodium Succinate (SOLU-Medrol 40MG VIAL) 30 mg DAILY IV Last administered on 04/07/19at 05:47; Start 04/03/19 at 09:00; Stop 04/07/19 at 09:45; Status DC Furosemide (Lasix) 40 mg 1X ONCE IVP Last administered on 04/02/19at 12:09; Start 04/02/19 at 11:30; Stop 04/02/19 at 11:35; Status DC Furosemide (Lasix) 40 mg 1X ONCE IVP ; Start 04/02/19 at 12:00; Stop 04/02/19 at 12:01; Status DC Dexmedetomidine HCl 400 mcg/ Sodium Chloride 100 ml @ 0 mls/hr CONT PRN IV ANXIETY / AGITATION Last administered on 04/03/19at 11:03; Start 04/02/19 at 16:00; Stop 04/07/19 at 09:45; Status DC Sodium Chloride 1,000 ml @ 1,000 mls/hr 1X ONCE IV Last administered on 04/02/19at 22:00; Start 04/02/19 at 22:00; Stop 04/02/19 at 22:59; Status DC Ondansetron HCl (Zofran) 4 mg 1X ONCE IM Last administered on 04/03/19at 12:39; Start 04/03/19 at 12:45; Stop 04/03/19 at 12:46; Status DC Acetaminophen (Tylenol) 500 mg PRN Q6HRS PRN PO MILD PAIN / TEMP Last administered on 04/16/19at 07:16; Start 04/03/19 at 18:30 Ondansetron HCl (Zofran) 4 mg PRN Q6HRS PRN IVP NAUSEA/VOMITING Last administered on 04/04/19at 21:04; Start 04/03/19 at 18:30 Amino Acids/ Glycerin/ Electrolytes 1,000 ml @ 50 mls/hr Q20H IV Last administered on 04/13/19at 08:43; Start 04/06/19 at 12:15; Stop 04/13/19 at 13:03; Status DC Potassium Chloride (Klor-Con) 40 meq 1X ONCE PO Last administered on 04/07/19at 17:40; Start 04/07/19 at 11:45; Stop 04/07/19 at 11:46; Status DC Insulin Human Lispro (HumaLOG) 0-9 UNITS PRN Q6HRS PRN SQ PER SLIDING SCALE; Start 04/10/19 at 11:45; Stop 04/11/19 at 20:56; Status DC Insulin Human Lispro (HumaLOG) 0-9 UNITS TIDWMEALS SQ ; Start 04/12/19 at 08:00 Guaifenesin (Robitussin Dm) 10 ml PRN Q6HRS PRN PO COUGH; Start 04/16/19 at 08:45 Active Scripts Active Norvasc (Amlodipine Besylate) 5 Mg Tablet 1 Tab PO DAILY Lisinopril 5 Mg Tablet 1 Tab PO DAILY Reported Hydrochlorothiazide Tablet (Hydrochlorothiazide) 25 Mg Tablet 25 Mg PO DAILY Vitals/I & O Vital Sign - Last 24 Hours 04/15/19 04/15/19 04/15/19 04/15/19 11:00 13:01 15:00 15:41 Temp 98.6 97.7 98.6 97.7 Pulse 106 96 Resp 20 20 B/P (MAP) 129/64 (85) 119/75 (90) Pulse Ox 93 95 98 95 O2 Delivery Room Air Nasal Cannula Nasal Cannula Nasal Cannula O2 Flow Rate 1.0 2.0 1.0 04/15/19 04/15/19 04/15/19 04/15/19 19:00 19:26 20:00 23:00 Temp 98.4 98.2 98.4 98.2 Pulse 108 69 Resp 20 22 B/P (MAP) 126/88 (101) 140/70 (93) Pulse Ox 90 97 90 O2 Delivery Room Air Room Air Nasal Cannula Room Air O2 Flow Rate 1.0 04/16/19 04/16/19 04/16/19 03:00 07:00 07:15 Temp 99.1 98.1 99.1 98.1 Pulse 100 98 Resp 20 18 B/P (MAP) 106/91 (96) 98/65 (76) Pulse Ox 93 93 97 O2 Delivery Room Air Room Air Room Air Intake and Output 04/15/19 04/15/19 04/16/19 15:00 23:00 07:00 Output Total 800 ml 600 ml 250 ml Balance -800 ml -600 ml -250 ml LISBET DUNCAN MD Apr 16, 2019 10:28
[2019-04-16] MEDS: ASPIRIN CHEWABLE 81 MG TABLET. PO SCH (10:29)
[2019-04-16 11:00] VITALS: BP 161/96
--- NOTE | 2019-04-16 12:57 | NUR ---
Placement Update: [facility]- no Medicaid [facility] pending discharges [facility]- currently full - re-eval next week pending discharges. NILES Murphy will meet with pt today. [facility]; reviewing clinicals. GARRY will continue to follow pt. Addendum: 04/16/19 at 1310 by LISETTE CASTAÑEDA GARRY also faxed referral to [facility], [facility] and [facility]. Acceptance pending.
--- NOTE | 2019-04-16 14:37 | PDOC ---
PROGRESS NOTES Assessment Assessment Generalized weakness, LE > UE. Myoclonic movements. Respiratory failure. ARDS. DM. HTN. COPD. Anemia. SHARON. Morbid obesity. Vaping. RECOMMENDATIONS/PLAN: Continue ASA daily. Continue medical treatment. L-spine CT w/o contrast. OT/PT. Weight reduction. FU with PCP. PAST MEDICAL HISTORY: Hypertension. Ascending thoracic aorta 4.4 cm. Chronic lymphedema. History of congestive heart failure. Chronic obstructive pulmonary disease. Obstructive sleep apnea. ALLERGIES: No known allergies to drugs. FAMILY HISTORY: Hypertension. SOCIAL HISTORY: He smokes less than a pack a day. He does not drink alcohol or use recreational drugs. PAST SURGICAL HISTORY: No major surgery recently. MEDICATIONS: Refer to [facility] REVIEW OF SYSTEMS: Constitutional: Morbid obesity. Head: No recent traumatic brain or head injury. Skin: No edema, or rash. Ear: No infection. Eyes: No vision loss, or diplopia. Nose: No bleeding or purulent discharges. Hearing: No hearing decrease. Neck: No injury. Cardiac: HTN Pulmonary: COPD. GI: No GI Ulcer, GI bleeding Urinary/genital: No dysuria, incontinence, urinary retention. Endocrine: Diabetes Mellitus. Skeletomuscular: No muscular atrophy. Neurological: see HP. Psychiatric: Denies drug use/abuse. Otherwise, not [id number] review of systems. PHYSICAL EXAMINATION: General appearance in subacute distress. HEENT: Normocephalic and nontraumatic. Eyes, nose, ears, and throat are unremarkable. Neck is supple. No lymphadenopathy. No Crepitus. Cardiovascular: S1, S2, regular rate and rhythm. Pulmonary: Mildly decreased to auscultation bilaterally. Abdomen: Bowel sounds are positive. Abdomen is soft, nontender, and nondistended. Extremities: Chronic significant skin changes as venous stasis in LE. NEUROLOGICAL EXAMINATION: Awake. Oriented partially to time, place and person. PERRL. EOMI. CN: no focal findings. Muscle tone: within normal. Muscle strength: 4-5 UE, 3 LE DTR: 0-1 due to obesity. Plantar reflex: Flexor response bilaterally Gait: not able to walk. Sensory exam: no acute abnormal findings. Objective Objective Vital Signs Date Time Temp Pulse Resp B/P (MAP) Pulse Ox O2 Delivery O2 Flow Rate FiO2 04/16/19 11:04 96 Room Air 04/16/19 11:00 98.0 92 18 161/96 (117) 98.0 04/15/19 20:00 1.0 Intake and Output 04/16/19 07:00 Output Total 1650 ml Balance -1650 ml Output Urine Total 1650 ml Vitals Signs Vitals VS - Last 72 Hours, by Label Date Time Temp Pulse Resp B/P (MAP) Pulse Ox O2 Delivery O2 Flow Rate FiO2 04/16/19 11:04 96 Room Air 04/16/19 11:00 98.0 92 18 161/96 (117) 94 Room Air 98.0 04/16/19 09:00 92 161/96 04/16/19 09:00 92 161/96 04/16/19 07:15 97 Room Air 04/16/19 07:00 98.1 98 18 98/65 (76) 93 Room Air 98.1 04/16/19 03:00 99.1 100 20 106/91 (96) 93 Room Air 99.1 04/15/19 23:00 98.2 69 22 140/70 (93) 90 Room Air 98.2 04/15/19 20:00 Nasal Cannula 1.0 04/15/19 19:26 97 Room Air 04/15/19 19:00 98.4 108 20 126/88 (101) 90 Room Air 98.4 04/15/19 15:41 95 Nasal Cannula 1.0 04/15/19 15:00 97.7 96 20 119/75 (90) 98 Nasal Cannula 2.0 97.7 04/15/19 13:01 95 Nasal Cannula 1.0 04/15/19 11:00 98.6 106 20 129/64 (85) 93 Room Air 98.6 04/15/19 09:07 83 145/83 04/15/19 09:07 83 145/83 04/15/19 08:02 95 Nasal Cannula 1.0 04/15/19 08:00 Nasal Cannula 1.0 04/15/19 07:00 98.5 83 20 145/83 (103) 94 Nasal Cannula 2.0 98.5 Laboratory Laboratory Laboratory Tests Test 04/15/19 17:02 04/15/19 20:36 04/16/19 07:52 04/16/19 10:59 Glucose (Fingerstick) 95 mg/dL (70-99) 101 mg/dL (70-99) 96 mg/dL (70-99) 94 mg/dL (70-99) Microbiology 03/16/19 - Final, Complete 03/16/19 - Final, Complete 03/16/19 Gram Stain Evaluation - Final, Complete 03/16/19 Sputum Culture - Final, Complete 03/16/19 Sputum Result 1 - Final, Complete 03/16/19 Blood Culture - Final, Complete NO GROWTH AFTER 5 DAYS 03/09/19 Urine Culture - Final, Complete 03/09/19 Urine Culture Result 1 (WIL) - Final, Complete Medication Medications Current Medications Guaifenesin (Robitussin Dm) 10 ml PRN Q6HRS PRN PO COUGH; Start 04/16/19 at 08:45 Comment Review of Relevant I have reviewed the following items peter (where applicable) has been applied. MARLENA MCFARLANE MD Apr 16, 2019 14:37
[2019-04-16 15:00] VITALS: BP 128/75
--- NOTE | 2019-04-16 16:16 | RAD ---
EXAM: Lumbar spine CT without contrast. HISTORY: Lower extremity weakness. TECHNIQUE: Computed tomographic images of the lumbar spine were obtained without contrast. Multiplanar reformatting was performed. *One or more of the following individualized dose reduction techniques were utilized for this examination: 1. Automated exposure control. 2. Adjustment of the mA and/or kV according to patient size. 3. Use of iterative reconstruction technique. COMPARISON: None. FINDINGS: There is no significant scoliosis. There is no significant listhesis. There is no fracture. No suspicious lytic or sclerotic osseous lesion is seen. 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 There is partial ankylosis of the superior left sacroiliac joint. There is moderate stool within the rectal vault. There are few prostate calcifications. There is aortobiiliac atherosclerosis. There are mild disc bulges and there is mild endplate remodeling at all levels. No moderate or severe stenosis is seen. IMPRESSION: 1. No acute osseous finding. 2. Mild multilevel degenerative change. 3. 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 Electronically signed by: Cheryl Mann MD (04/16/2019 4:13 PM) [id number]
[2019-04-16 19:00] VITALS: BP 112/60
[2019-04-16 23:00] VITALS: BP 101/57
[2019-04-17 03:00] VITALS: BP 136/58
[2019-04-17 07:00] VITALS: BP 128/78
[2019-04-17] MEDS: IPRATRPIUM/ALBUTEROL 0.5/2.5MG 3 ML NEBU. NEB SCH ×3 (07:28→15:16)
[2019-04-17] MEDS: INSULIN LISPRO 300 UNITS/3 ML VIAL. SQ SCH ×3 (08:00→16:49)
[2019-04-17] MEDS: ASPIRIN CHEWABLE 81 MG TABLET. PO SCH (08:16)
[2019-04-17] MEDS: AMMONIUM LACTATE 12% TOPICAL LOTION 226GM BOTTLE. TP SCH (08:16)
[2019-04-17] MEDS: LISINOPRIL 5 MG TABLET. PO SCH (08:16)
[2019-04-17] MEDS: amLODIPine BESYLATE 10 MG TABLET PO SCH (08:16)
--- NOTE | 2019-04-17 09:57 | PDOC ---
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 CXR OK TODAY TRANSFER TO [facility] IN [place] 04-17 D/C PLANNING 36 MIN History of Present Illness History of Present Illness transferred out of ICU Day # 38, self pay On dysphagia 3 diet Playing video games then sleeps MEDICAID pending Was intubated > 3 weeks LAbs VS ok PLAn: CPM, SW on case On recovery period, medically clear/ready to dc Dc dispo in the works, too weak (critical illness myopathy) Vitals Vitals Vital Signs Date Time Temp Pulse Resp B/P (MAP) Pulse Ox O2 Delivery O2 Flow Rate FiO2 04/17/19 08:16 95 128/78 04/17/19 08:00 1.0 04/17/19 08:00 Room Air 04/17/19 07:29 96 04/17/19 07:00 98.6 22 98.6 Physical Exam Physical Exam GENERAL: Orally intubated/ sedated - lightly, HEENT: opened eyes Pupils equal, nml conj OGT/ETT NECK: Supple LUNGS: dec bs at bases HEART: S1 and S2, regular. ABDOMEN: Obese, soft, +BS : Ramos in place fecal tube in place EXTREMITIES: Trace edema - MITTS SKIN: Chronic stasis dermatitis on the lower extremity. NEUROLOGIC: Awake IVS; Old RIJ site clean. RUE - PICC clean General: Alert, Oriented X3, Cooperative, No acute distress, mild distress, Other (short neck , Mallampati 4 ON VENT) Heart: Regular rate (SR), Normal S1, Normal S2, Other (distante heart sounds) Lungs: Clear, Crackles, Other (decrease bs) Abdomen: Normal bowel sounds, Soft, No tenderness, No hepatosplenomegaly, No masses Extremities: No clubbing, No cyanosis, No edema, Normal pulses, No tenderness/swelling Skin: No rashes, No breakdown, No significant lesion Labs LABS EXAM: Chest, single view. HISTORY: Dyspnea. COMPARISON: 04/04/2019 FINDINGS: A frontal view of the chest is obtained. There has been slight interval decrease in pulmonary congestion. There is a stable prominent cardiac silhouette. There is a right PICC with the tip in the superior vena cava. There is no pleural effusion or pneumothorax. IMPRESSION: Decrease in pulmonary congestion. Electronically signed by: Cheryl Mann MD (04/17/2019 11:48 AM) [place] [id number] DICTATED and SIGNED BY: CHERYL MANN MD DATE: 04/17/191147 EXAM: Lumbar spine CT without contrast. HISTORY: Lower extremity weakness. TECHNIQUE: Computed tomographic images of the lumbar spine were obtained without contrast. Multiplanar reformatting was performed. *One or more of the following individualized dose reduction techniques were utilized for this examination: 1. Automated exposure control. 2. Adjustment of the mA and/or kV according to patient size. 3. Use of iterative reconstruction technique. COMPARISON: None. FINDINGS: There is no significant scoliosis. There is no significant listhesis. There is no fracture. No suspicious lytic or sclerotic osseous lesion is seen. 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 There is partial ankylosis of the superior left sacroiliac joint. There is moderate stool within the rectal vault. There are few prostate calcifications. There is aortobiiliac atherosclerosis. There are mild disc bulges and there is mild endplate remodeling at all levels. No moderate or severe stenosis is seen. IMPRESSION: 1. No acute osseous finding. 2. Mild multilevel degenerative change. 3. 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 Electronically signed by: Cheryl Mann MD (04/16/2019 4:13 PM) [place] [id number] Laboratory Tests Test 04/16/19 10:59 04/16/19 16:10 04/16/19 20:22 04/17/19 07:30 Glucose (Fingerstick) 94 mg/dL (70-99) 93 mg/dL (70-99) 110 mg/dL (70-99) 98 mg/dL (70-99) Assessment and Plan Assessmemt and Plan Problems Medical Problems: (1) CHF exacerbation Status: Acute (2) COPD exacerbation Status: Acute (3) Hypoxia Status: Acute (4) NSTEMI (non-ST elevated myocardial infarction) Status: Acute (5) Respiratory failure Status: Acute Comment Review of Relevant I have reviewed the following items peter (where applicable) has been applied. Labs Laboratory Tests Test 04/15/19 11:48 04/15/19 17:02 04/15/19 20:36 04/16/19 07:52 Glucose (Fingerstick) 106 mg/dL (70-99) 95 mg/dL (70-99) 101 mg/dL (70-99) 96 mg/dL (70-99) Test 04/16/19 10:59 04/16/19 16:10 04/16/19 20:22 04/17/19 07:30 Glucose (Fingerstick) 94 mg/dL (70-99) 93 mg/dL (70-99) 110 mg/dL (70-99) 98 mg/dL (70-99) Laboratory Tests Test 04/16/19 10:59 04/16/19 16:10 04/16/19 20:22 04/17/19 07:30 Glucose (Fingerstick) 94 mg/dL (70-99) 93 mg/dL (70-99) 110 mg/dL (70-99) 98 mg/dL (70-99) Microbiology 03/16/19 - Final, Complete 03/16/19 - Final, Complete 03/16/19 Gram Stain Evaluation - Final, Complete 03/16/19 Sputum Culture - Final, Complete 03/16/19 Sputum Result 1 - Final, Complete 03/16/19 Blood Culture - Final, Complete NO GROWTH AFTER 5 DAYS 03/09/19 Urine Culture - Final, Complete 03/09/19 Urine Culture Result 1 (WIL) - Final, Complete Medications Current Medications Albuterol/ Ipratropium (Duoneb) 3 ml 1X ONCE NEB Last administered on 03/09/19at 21:21; Start 03/09/19 at 21:30; Stop 03/09/19 at 21:31; Status DC Dexamethasone Sodium Phosphate (Decadron) 10 mg 1X ONCE IV Last administered on 03/09/19at 22:29; Start 03/09/19 at 22:00; Stop 03/09/19 at 22:01; Status DC Propofol 100 ml @ 0 mls/hr CONT PRN IV SEE PROTOCOL Last administered on 03/10/19at 07:19; Start 03/09/19 at 22:30; Stop 03/10/19 at 07:28; Status DC Fentanyl Citrate (Fentanyl 2ml Vial) 50 mcg PRN Q1HR PRN IV SEE COMMENTS; Start 03/09/19 at 22:30; Stop 03/10/19 at 07:28; Status DC Chlorhexidine Gluconate (Peridex) 15 ml BID MM Last administered on 04/05/19at 08:06; Start 03/10/19 at 09:00; Stop 04/05/19 at 11:08; Status DC Famotidine (Pepcid Vial) 20 mg BID IVP Last administered on 04/06/19at 21:27; Start 03/10/19 at 09:00; Stop 04/07/19 at 09:45; Status DC Propofol 50 ml @ As Directed STK-MED ONCE IV ; Start 03/09/19 at 22:28; Stop 03/09/19 at 22:28; Status DC Albuterol/ Ipratropium (Duoneb) 3 ml 1X ONCE NEB Last administered on 03/10/19at 02:04; Start 03/09/19 at 23:00; Stop 03/09/19 at 23:01; Status DC Albuterol/ Ipratropium (Duoneb) 3 ml 1X ONCE NEB Last administered on 03/10/19at 02:04; Start 03/09/19 at 23:00; Stop 03/09/19 at 23:01; Status DC Fentanyl Citrate (Fentanyl 2ml Vial) 100 mcg 1X ONCE IV Last administered on 03/09/19at 23:31; Start 03/09/19 at 23:30; Stop 03/09/19 at 23:31; Status DC Bumetanide (Bumex) 1 mg 1X ONCE IV Last administered on 03/10/19at 00:21; Start 03/10/19 at 00:00; Stop 03/10/19 at 00:01; Status DC Heparin Sodium (Porcine) (Heparin Sodium) 4,000 unit 1X ONCE IV Last administered on 03/10/19at 00:31; Start 03/10/19 at 00:00; Stop 03/10/19 at 00:01; Status DC Heparin Sodium/ Dextrose 500 ml @ 0 mls/hr CONT PRN IV PER PROTOCOL Last administered on 03/10/19at 23:34; Start 03/09/19 at 23:45; Stop 03/11/19 at 16:13; Status DC Heparin Sodium (Porcine) (Heparin Sodium) 5,500 unit PRN Q6HRS PRN IV FOR UFH LEVEL LESS THAN 0.2 Last administered on 03/11/19at 00:57; Start 03/09/19 at 23:45; Stop 03/11/19 at 16:13; Status DC Aspirin (Aspirin Rectal Supp) 300 mg 1X ONCE IA Last administered on 03/10/19at 03:42; Start 03/10/19 at 00:00; Stop 03/10/19 at 00:01; Status DC Propofol 50 ml @ As Directed STK-MED ONCE IV ; Start 03/09/19 at 23:38; Stop 03/09/19 at 23:38; Status DC Propofol 50 ml @ As Directed STK-MED ONCE IV ; Start 03/09/19 at 23:38; Stop 03/09/19 at 23:38; Status DC Piperacillin Sod/ Tazobactam Sod 4.5 gm/Sodium Chloride 100 ml @ 200 mls/hr 1X ONCE IV Last administered on 03/10/19at 05:19; Start 03/10/19 at 00:30; Stop 03/10/19 at 00:59; Status DC Propofol 50 ml @ As Directed STK-MED ONCE IV ; Start 03/10/19 at 00:51; Stop 03/10/19 at 00:51; Status DC Propofol 50 ml @ As Directed STK-MED ONCE IV ; Start 03/10/19 at 01:14; Stop 03/10/19 at 01:15; Status DC Fentanyl Citrate (Fentanyl 2ml Vial) 100 mcg 1X ONCE IV Last administered on 03/10/19at 01:26; Start 03/10/19 at 01:45; Stop 03/10/19 at 01:46; Status DC Clonidine HCl (Catapres) 0.1 mg 1X ONCE PO ; Start 03/10/19 at 01:30; Stop 03/10/19 at 01:34; Status DC Midazolam HCl (Versed) 5 mg 1X ONCE IV Last administered on 03/10/19at 01:28; Start 03/10/19 at 01:30; Stop 03/10/19 at 01:34; Status DC Propofol 50 ml @ As Directed STK-MED ONCE IV ; Start 03/10/19 at 02:08; Stop 03/10/19 at 02:09; Status DC Propofol 50 ml @ As Directed STK-MED ONCE IV ; Start 03/10/19 at 02:36; Stop 03/10/19 at 02:36; Status DC Rocuronium Briscoe (Zemuron) 50 mg STK-MED ONCE .ROUTE ; Start 03/10/19 at 05:15; Stop 03/10/19 at 05:15; Status DC Etomidate (Amidate) 20 mg STK-MED ONCE IV ; Start 03/10/19 at 05:15; Stop 03/10/19 at 05:16; Status DC Fentanyl Citrate 30 ml @ 0 mls/hr CONT PRN IV SEE PROTOCOL Last administered on 04/03/19at 09:05; Start 03/10/19 at 07:30; Stop 04/07/19 at 09:44; Status DC Propofol 100 ml @ 0 mls/hr CONT PRN IV SEE PROTOCOL Last administered on 04/02/19at 15:10; Start 03/10/19 at 07:30; Stop 04/07/19 at 09:44; Status DC Fentanyl Citrate (Fentanyl 2ml Vial) 25 mcg PRN Q1HR PRN IV SEE COMMENTS; Start 03/10/19 at 07:30; Stop 04/07/19 at 09:44; Status DC Fentanyl Citrate (Fentanyl 2ml Vial) 50 mcg PRN Q1HR PRN IV SEE COMMENTS; Start 03/10/19 at 07:30; Stop 04/07/19 at 09:45; Status DC Artificial Tears (Artificial Tears) 1 drop PRN Q1HR PRN OU DRY EYE, 1ST CHOICE Last administered on 03/13/19at 13:32; Start 03/10/19 at 07:30; Stop 04/07/19 at 09:45; Status DC Famotidine (Pepcid Vial) 20 mg BID IVP ; Start 03/10/19 at 09:00; Status UNV Morphine Sulfate (Morphine Sulfate) 2 mg PRN Q1HR PRN IV SEE COMMENTS. Last administered on 03/25/19at 09:18; Start 03/10/19 at 07:30; Stop 04/07/19 at 09:45; Status DC Morphine Sulfate (Morphine Sulfate) 4 mg PRN Q1HR PRN IV SEE COMMENTS. Last administered on 03/31/19at 10:50; Start 03/10/19 at 07:30; Stop 04/07/19 at 09:45; Status DC Midazolam HCl 100 ml @ 0 mls/hr CONT PRN IV SEE PROTOCOL Last administered on 04/01/19at 02:07; Start 03/10/19 at 07:30; Stop 04/07/19 at 09:45; Status DC Levofloxacin/ Dextrose (Levaquin Per Pharmacy) 1 each PRN DAILY PRN MC SEE COMMENTS; Start 03/10/19 at 08:15; Stop 03/14/19 at 09:25; Status DC Albuterol/ Ipratropium (Duoneb) 3 ml RTQID NEB Last administered on 04/17/19at 07:28; Start 03/10/19 at 12:00 Sodium Chloride 1,000 ml @ 100 mls/hr Q10H IV Last administered on 03/10/19at 23:34; Start 03/10/19 at 08:15; Stop 03/11/19 at 16:02; Status DC Amlodipine Besylate (Norvasc) 5 mg DAILY PO Last administered on 03/10/19at 09:13; Start 03/10/19 at 09:00; Stop 03/10/19 at 10:04; Status DC Hydrochlorothiazide (Hydrodiuril) 25 mg DAILY PO Last administered on 03/10/19at 09:13; Start 03/10/19 at 09:00; Stop 03/10/19 at 10:04; Status DC Lisinopril (Prinivil) 5 mg DAILY PO Last administered on 03/10/19at 09:13; Start 03/10/19 at 09:00; Stop 03/10/19 at 10:04; Status DC Levofloxacin/ Dextrose 100 ml @ 100 mls/hr Q24H IV Last administered on 03/14/19at 08:10; Start 03/10/19 at 09:00; Stop 03/14/19 at 09:25; Status DC Aspirin (Amanda Aspirin) 325 mg 1X ONCE PO Last administered on 03/10/19at 10:55; Start 03/10/19 at 10:30; Stop 03/10/19 at 10:31; Status DC Aspirin (Children'S Aspirin) 81 mg DAILYWBKFT PO Last administered on 04/17/19at 08:16; Start 03/11/19 at 08:00 Amlodipine Besylate (Norvasc) 10 mg DAILY PO Last administered on 03/11/19at 09:37; Start 03/11/19 at 09:00; Stop 03/11/19 at 12:50; Status DC Hydralazine HCl (Apresoline Inj) 10 mg PRN Q4HRS PRN IVP ELEVATED BP, SEE COMMENTS; Start 03/10/19 at 10:15; Stop 03/12/19 at 09:37; Status DC Furosemide (Lasix) 40 mg DAILY IVP Last administered on 03/11/19at 09:37; Start 03/10/19 at 11:00; Stop 03/11/19 at 11:24; Status DC Insulin Human Lispro (HumaLOG) 0-9 UNITS TIDWMEALS SQ ; Start 03/10/19 at 12:00; Stop 03/10/19 at 17:57; Status DC Dextrose (Dextrose 50%-Water Syringe) 12.5 gm PRN Q15MIN PRN IV SEE COMMENTS; Start 03/10/19 at 11:15; Stop 03/12/19 at 16:47; Status DC Dextrose 250 ml PRN Q15MIN PRN IV SEE COMMENTS; Start 03/10/19 at 11:15; Stop 03/10/19 at 11:05; Status DC Iohexol (Omnipaque 350 Mg/ml) 100 ml 1X ONCE IV Last administered on 03/10/19at 14:05; Start 03/10/19 at 11:45; Stop 03/10/19 at 11:47; Status DC Info (CONTRAST GIVEN -- Rx MONITORING) 1 each PRN DAILY PRN MC SEE COMMENTS; Start 03/10/19 at 11:45; Stop 03/12/19 at 11:44; Status DC Piperacillin Sod/ Tazobactam Sod (Zosyn Per Pharmacy) 1 each PRN DAILY PRN MC SEE COMMENTS; Start 03/10/19 at 11:45; Stop 03/25/19 at 08:36; Status DC Vancomycin HCl (Vanco Per Pharmacy) 1 each PRN DAILY PRN MC SEE COMMENTS Last administered on 03/11/19at 09:42; Start 03/10/19 at 11:45; Stop 03/11/19 at 13:57; Status DC Vancomycin HCl 2 gm/Sodium Chloride 500 ml @ 250 mls/hr 1X ONCE IV Last administered on 03/10/19at 12:41; Start 03/10/19 at 13:00; Stop 03/10/19 at 14:59; Status DC Piperacillin Sod/ Tazobactam Sod 3.375 gm/Sodium Chloride 50 ml @ 100 mls/hr Q6HRS IV Last administered on 03/24/19at 05:45; Start 03/10/19 at 12:30; Stop 03/24/19 at 07:24; Status DC Vancomycin HCl 1.75 gm/Sodium Chloride 500 ml @ 250 mls/hr Q12H IV Last admini stered on 03/11/19at 12:43; Start 03/11/19 at 01:00; Stop 03/11/19 at 13:57; Status DC Vancomycin HCl (Vancomycin Trough Level) 1 each 1X ONCE MC ; Start 03/12/19 at 12:30; Stop 03/12/19 at 12:31; Status Cancel Insulin Human Lispro (HumaLOG) 0-9 UNITS Q6HRS SQ ; Start 03/11/19 at 00:00; Stop 03/27/19 at 09:06; Status DC Magnesium Sulfate/ Dextrose 100 ml @ 50 mls/hr DAILY IV Last administered on 03/11/19at 09:28; Start 03/11/19 at 09:00; Stop 03/14/19 at 08:59; Status DC Potassium Phosphate 27.2 mmol/Sodium Chloride 259.0667 ml @ 64.753 m... 1X ONCE IV Last administered on 03/11/19at 09:28; Start 03/11/19 at 10:00; Stop 03/11/19 at 14:00; Status DC Potassium Phosphate 27.2 mmol/Sodium Chloride 259.0667 ml @ 64.753 m... 1X ONCE IV ; Start 03/11/19 at 14:00; Stop 03/11/19 at 18:00; Status DC Lorazepam (Ativan Inj) 1 mg PRN Q1HR PRN IV ANXIETY Last administered on 03/14/19at 16:32; Start 03/11/19 at 11:00; Stop 03/19/19 at 10:31; Status DC Sodium Chloride 1,000 ml @ 1,000 mls/hr 1X ONCE IV Last administered on 03/11/19at 12:06; Start 03/11/19 at 11:30; Stop 03/11/19 at 12:29; Status DC Norepinephrine Bitartrate 250 ml @ 27.837 mls/ hr CONT PRN IV SEE I/O RECORD Last administered on 03/13/19at 04:13; Start 03/11/19 at 13:00; Stop 03/26/19 at 09:22; Status DC Hydralazine HCl (Apresoline Inj) 10 mg PRN Q4HRS PRN IVP ELEVATED BP, SEE COMMENTS Last administered on 04/08/19at 23:31; Start 03/11/19 at 13:00 Linezolid/Dextrose 300 ml @ 300 mls/hr Q12HR IV Last administered on 03/22/19at 21:38; Start 03/11/19 at 21:00; Stop 03/23/19 at 07:48; Status DC Potassium Chloride/Water 50 ml @ 50 mls/hr Q1H IV Last administered on 03/11/19at 17:28; Start 03/11/19 at 16:00; Stop 03/11/19 at 17:59; Status DC Heparin Sodium (Porcine) (Heparin Sodium) 5,000 unit Q8HRS SQ Last administered on 04/07/19at 05:53; Start 03/11/19 at 22:00; Stop 04/07/19 at 09:45; Status DC Multi-Ingred Cream/Lotion/Oil/ Oint (Artificial Tears Eye Ointment) 1 zuri PRN Q1HR PRN OU DRY EYE; Start 03/12/19 at 09:00 Potassium Chloride/Water 50 ml @ 50 mls/hr 1X ONCE IV Last administered on 03/12/19at 09:44; Start 03/12/19 at 10:00; Stop 03/12/19 at 10:59; Status DC Potassium Chloride/Water 50 ml @ 50 mls/hr 1X ONCE IV ; Start 03/12/19 at 10:30; Stop 03/12/19 at 11:31; Status DC Insulin Human Lispro (HumaLOG) 0-9 UNITS TIDWMEALS SQ ; Start 03/12/19 at 17:00; Stop 03/12/19 at 16:24; Status DC Dextrose (Dextrose 50%-Water Syringe) 12.5 gm PRN Q15MIN PRN IV SEE COMMENTS; Start 03/12/19 at 16:15 Dextrose 250 ml PRN Q15MIN PRN IV SEE COMMENTS; Start 03/12/19 at 16:15; Stop 03/27/19 at 08:59; Status DC Insulin Human Lispro (HumaLOG) 0-9 UNITS Q6HRS SQ Last administered on 03/26/19at 00:37; Start 03/12/19 at 18:00; Stop 04/10/19 at 11:37; Status DC Dexmedetomidine HCl 400 mcg/ Sodium Chloride 100 ml @ 0 mls/hr CONT PRN IV ANXIETY / AGITATION Last administered on 03/21/19at 04:33; Start 03/12/19 at 20:30; Stop 03/26/19 at 09:22; Status DC Sodium Chloride 500 ml @ 500 mls/hr 1X PRN PRN IV see comments Last administered on 03/12/19at 23:22; Start 03/12/19 at 20:30; Stop 03/30/19 at 14:05; Status DC Atropine Sulfate (ATROPINE 0.5mg SYRINGE) 0.5 mg PRN Q5MIN PRN IV SEE COMMENTS; Start 03/12/19 at 20:30; Stop 03/30/19 at 14:06; Status DC Vecuronium Briscoe (Norcuron Bolus) 10 mg PRN Q1HR PRN IV OVERBREATHING VENT Last administered on 03/25/19at 10:49; Start 03/13/19 at 07:30; Stop 04/07/19 at 09:45; Status DC Perflutren Protein Type A Microsphe (Optison) 0.66 mg STK-MED ONCE IV ; Start 03/13/19 at 09:08; Stop 03/13/19 at 09:08; Status DC Perflutren Protein Type A Microsphe (Optison) 0.66 mg 1X ONCE IV Last administered on 03/13/19at 09:40; Start 03/13/19 at 09:15; Stop 03/13/19 at 09:16; Status DC Furosemide (Lasix) 40 mg 1X ONCE IVP Last administered on 03/13/19at 13:32; Start 03/13/19 at 10:30; Stop 03/13/19 at 10:31; Status DC Daptomycin 1320 mg/Sodium Chloride 50 ml @ 100 mls/hr ONCE ONCE IV Last administered on 03/15/19at 13:53; Start 03/15/19 at 13:00; Stop 03/16/19 at 09:33; Status DC Daptomycin 1340 mg/Sodium Chloride 50 ml @ 100 mls/hr Q24H IV ; Start 03/16/19 at 08:45; Status UNV Daptomycin 1340 mg/Sodium Chloride 50 ml @ 100 mls/hr Q24H IV ; Start 03/16/19 at 09:00; Status Cancel Daptomycin 830 mg/ Sodium Chloride 50 ml @ 100 mls/hr Q24H IV Last administered on 03/18/19at 15:03; Start 03/16/19 at 14:00; Stop 03/19/19 at 07:41; Status DC Methylprednisolone Sodium Succinate (SOLU-Medrol 125MG VIAL) 100 mg Q8HRS IV Last administered on 03/23/19at 05:54; Start 03/16/19 at 12:00; Stop 03/23/19 at 12:03; Status DC Furosemide (Lasix) 40 mg 1X ONCE IVP Last administered on 03/16/19at 16:46; Start 03/16/19 at 16:30; Stop 03/16/19 at 16:31; Status DC Fentanyl Citrate (Fentanyl 600 Mcg/30 ml [employer] COORDINATOR) 600 mcg STK-MED ONCE IV ; Start 03/13/19 at 17:00; Stop 03/17/19 at 11:02; Status DC Furosemide 100 mg/ Sodium Chloride 100 ml @ 5 mls/hr CONT PRN IV SEE I/O RECORD Last administered on 03/18/19at 00:20; Start 03/17/19 at 15:45; Stop 03/18/19 at 10:36; Status DC Furosemide 100 mg/ Sodium Chloride 100 ml @ 5 mls/hr CONT PRN IV SEE I/O RECORD Last administered on 03/21/19at 08:34; Start 03/18/19 at 10:45; Stop 03/21/19 at 12:57; Status DC Lorazepam (Ativan Inj) 2 mg PRN Q1HR PRN IV ANXIETY Last administered on 04/04/19at 00:30; Start 03/19/19 at 10:45; Stop 04/07/19 at 09:45; Status DC Lisinopril (Prinivil) 5 mg DAILY PO Last administered on 04/17/19at 08:16; Start 03/21/19 at 11:30 Amlodipine Besylate (Norvasc) 10 mg DAILY PO Last administered on 04/17/19at 08:16; Start 03/21/19 at 11:30 Furosemide 100 mg/ Sodium Chloride 100 ml @ 10 mls/hr CONT PRN IV SEE I/O RECORD Last administered on 03/22/19at 05:05; Start 03/21/19 at 16:00; Stop 03/22/19 at 12:39; Status DC Scopolamine (Transderm-Scop) 1 patch Q3DAYS TD Last administered on 04/06/19at 10:24; Start 03/22/19 at 11:00; Stop 04/07/19 at 09:45; Status DC Furosemide 100 mg/ Sodium Chloride 100 ml @ 5 mls/hr CONT PRN IV SEE I/O RECORD Last administered on 03/22/19at 21:38; Start 03/22/19 at 12:45; Stop 03/23/19 at 17:48; Status DC Methylprednisolone Sodium Succinate (SOLU-Medrol 125MG VIAL) 50 mg Q8HRS IV Last administered on 03/27/19at 05:30; Start 03/23/19 at 14:00; Stop 03/27/19 at 11:20; Status DC Insulin Human Lispro (HumaLOG) 0-5 UNITS TIDWMEALS SQ ; Start 03/27/19 at 09:30; Status Cancel Dextrose (Dextrose 50%-Water Syringe) 12.5 gm PRN Q15MIN PRN IV SEE COMMENTS; Start 03/27/19 at 09:00; Status Cancel Dextrose 250 ml PRN Q15MIN PRN IV SEE COMMENTS; Start 03/27/19 at 09:00; Status Cancel Methylprednisolone Sodium Succinate (SOLU-Medrol 40MG VIAL) 30 mg Q8HRS IV Last administered on 04/02/19at 06:28; Start 03/27/19 at 14:00; Stop 04/02/19 at 1 1:19; Status DC Furosemide (Lasix) 40 mg 1X ONCE IVP Last administered on 03/27/19at 11:58; Start 03/27/19 at 12:00; Stop 03/27/19 at 12:01; Status DC Furosemide (Lasix) 40 mg 1X ONCE IVP Last administered on 03/28/19at 10:15; Start 03/28/19 at 09:30; Stop 03/28/19 at 09:46; Status DC Furosemide (Lasix) 40 mg 1X ONCE IVP Last administered on 03/29/19at 09:44; Start 03/29/19 at 09:30; Stop 03/29/19 at 09:31; Status DC Sodium Chloride 1,000 ml @ 1,000 mls/hr 1X ONCE IV Last administered on 03/29/19at 20:41; Start 03/29/19 at 20:30; Stop 03/29/19 at 21:29; Status DC Norepinephrine Bitartrate 250 ml @ 38.554 mls/ hr CONT PRN IV SEE I/O RECORD; Start 03/29/19 at 20:30; Stop 04/12/19 at 13:41; Status DC Furosemide (Lasix) 40 mg 1X ONCE IVP Last administered on 03/30/19at 10:42; Start 03/30/19 at 10:15; Stop 03/30/19 at 10:16; Status DC Sodium Bicarbonate (Sodium Bicarb Adult 8.4% Syr) 50 meq STK-MED ONCE .ROUTE ; Start 03/31/19 at 17:28; Stop 03/31/19 at 17:29; Status DC Lactic Acid (Lac-Hydrin) 1 zuri BID TP Last administered on 04/17/19at 08:16; Start 04/01/19 at 21:00 Methylprednisolone Sodium Succinate (SOLU-Medrol 40MG VIAL) 30 mg DAILY IV Last administered on 04/07/19at 05:47; Start 04/03/19 at 09:00; Stop 04/07/19 at 09:45; Status DC Furosemide (Lasix) 40 mg 1X ONCE IVP Last administered on 04/02/19at 12:09; Start 04/02/19 at 11:30; Stop 04/02/19 at 11:35; Status DC Furosemide (Lasix) 40 mg 1X ONCE IVP ; Start 04/02/19 at 12:00; Stop 04/02/19 at 12:01; Status DC Dexmedetomidine HCl 400 mcg/ Sodium Chloride 100 ml @ 0 mls/hr CONT PRN IV ANXIETY / AGITATION Last administered on 04/03/19at 11:03; Start 04/02/19 at 16: 00; Stop 04/07/19 at 09:45; Status DC Sodium Chloride 1,000 ml @ 1,000 mls/hr 1X ONCE IV Last administered on 04/02/19at 22:00; Start 04/02/19 at 22:00; Stop 04/02/19 at 22:59; Status DC Ondansetron HCl (Zofran) 4 mg 1X ONCE IM Last administered on 04/03/19at 12:39; Start 04/03/19 at 12:45; Stop 04/03/19 at 12:46; Status DC Acetaminophen (Tylenol) 500 mg PRN Q6HRS PRN PO MILD PAIN / TEMP Last administered on 04/16/19at 07:16; Start 04/03/19 at 18:30 Ondansetron HCl (Zofran) 4 mg PRN Q6HRS PRN IVP NAUSEA/VOMITING Last administered on 04/04/19at 21:04; Start 04/03/19 at 18:30 Amino Acids/ Glycerin/ Electrolytes 1,000 ml @ 50 mls/hr Q20H IV Last administered on 04/13/19at 08:43; Start 04/06/19 at 12:15; Stop 04/13/19 at 13:03; Status DC Potassium Chloride (Klor-Con) 40 meq 1X ONCE PO Last administered on 04/07/19at 17:40; Start 04/07/19 at 11:45; Stop 04/07/19 at 11:46; Status DC Insulin Human Lispro (HumaLOG) 0-9 UNITS PRN Q6HRS PRN SQ PER SLIDING SCALE; Start 04/10/19 at 11:45; Stop 04/11/19 at 20:56; Status DC Insulin Human Lispro (HumaLOG) 0-9 UNITS TIDWMEALS SQ ; Start 04/12/19 at 08:00 Guaifenesin (Robitussin Dm) 10 ml PRN Q6HRS PRN PO COUGH; Start 04/16/19 at 08:45 Active Scripts Active Norvasc (Amlodipine Besylate) 5 Mg Tablet 1 Tab PO DAILY Lisinopril 5 Mg Tablet 1 Tab PO DAILY Reported Hydrochlorothiazide Tablet (Hydrochlorothiazide) 25 Mg Tablet 25 Mg PO DAILY Vitals/I & O Vital Sign - Last 24 Hours 04/16/19 04/16/19 04/16/19 04/16/19 11:00 11:04 15:00 19:00 Temp 98.0 97.8 98.3 98.0 97.8 98.3 Pulse 92 82 94 Resp 18 18 18 B/P (MAP) 161/96 (117) 128/75 (92) 112/60 (77) Pulse Ox 94 96 92 93 O2 Delivery Room Air Room Air Room Air Room Air O2 Flow Rate 1.0 04/16/19 04/16/19 04/16/19 04/16/19 19:42 20:00 22:24 22:24 Pulse Ox 95 O2 Delivery Room Air Room Air Room Air O2 Flow Rate 1.0 04/16/19 04/17/19 04/17/19 04/17/19 23:00 03:00 07:00 07:29 Temp 98.0 98.6 98.0 98.6 Pulse 76 90 95 Resp 18 18 22 B/P (MAP) 101/57 (72) 136/58 (84) 128/78 (95) Pulse Ox 95 93 96 96 O2 Delivery Room Air Room Air Room Air Room Air O2 Flow Rate 1.0 04/17/19 04/17/19 04/17/19 04/17/19 08:00 08:00 08:16 08:16 Pulse 95 95 B/P (MAP) 128/78 128/78 O2 Delivery Room Air O2 Flow Rate 1.0 Intake and Output 04/16/19 04/16/19 04/17/19 14:59 22:59 06:59 Output Total 300 ml 300 ml 1000 ml Balance -300 ml -300 ml -1000 ml PRICILA GOMEZ MD Apr 17, 2019 09:57
[2019-04-17 11:00] VITALS: BP 114/71
--- NOTE | 2019-04-17 11:51 | RAD ---
EXAM: Chest, single view. HISTORY: Dyspnea. COMPARISON: 04/04/2019 FINDINGS: A frontal view of the chest is obtained. There has been slight interval decrease in pulmonary congestion. There is a stable prominent cardiac silhouette. There is a right PICC with the tip in the superior vena cava. There is no pleural effusion or pneumothorax. IMPRESSION: Decrease in pulmonary congestion. Electronically signed by: Cheryl Mann MD (04/17/2019 11:48 AM) [place] [id number]
--- NOTE | 2019-04-17 12:43 | PDOC3 ---
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 CXR OK TODAY TRANSFER TO SNF IN [place] 04-17 D/C PLANNING 36 MIN History of Present Illness History of Present Illness transferred out of ICU Day # 38, self pay On dysphagia 3 diet Playing video games then sleeps MEDICAID pending Was intubated > 3 weeks LAbs VS ok PLAn: CPM, SW on case On recovery period, medically clear/ready to dc Dc dispo in the works, too weak (critical illness myopathy) Vitals Vitals Vital Signs Date Time Temp Pulse Resp B/P (MAP) Pulse Ox O2 Delivery O2 Flow Rate FiO2 04/17/19 08:16 95 128/78 04/17/19 08:00 1.0 04/17/19 08:00 Room Air 04/17/19 07:29 96 04/17/19 07:00 98.6 22 98.6 Physical Exam Physical Exam GENERAL: Orally intubated/ sedated - lightly, HEENT: opened eyes Pupils equal, nml conj OGT/ETT NECK: Supple LUNGS: dec bs at bases HEART: S1 and S2, regular. ABDOMEN: Obese, soft, +BS : Ramos in place fecal tube in place EXTREMITIES: Trace edema - MITTS SKIN: Chronic stasis dermatitis on the lower extremity. NEUROLOGIC: Awake IVS; Old RIJ site clean. RUE - PICC clean General: Alert, Oriented X3, Cooperative, No acute distress, mild distress, Other (short neck , Mallampati 4 ON VENT) Heart: Regular rate (SR), Normal S1, Normal S2, Other (distante heart sounds) Lungs: Clear, Crackles, Other (decrease bs) Abdomen: Normal bowel sounds, Soft, No tenderness, No hepatosplenomegaly, No masses Extremities: No clubbing, No cyanosis, No edema, Normal pulses, No tenderness/swelling Skin: No rashes, No breakdown, No significant lesion Labs LABS EXAM: Chest, single view. HISTORY: Dyspnea. COMPARISON: 04/04/2019 FINDINGS: A frontal view of the chest is obtained. There has been slight interval decrease in pulmonary congestion. There is a stable prominent cardiac silhouette. There is a right PICC with the tip in the superior vena cava. There is no pleural effusion or pneumothorax. IMPRESSION: Decrease in pulmonary congestion. Electronically signed by: Cheryl Mann MD (04/17/2019 11:48 AM) [place] [id number] FINAL DIAGNOSIS Problems Medical Problems: (1) CHF exacerbation Status: Acute (2) COPD exacerbation Status: Acute (3) Hypoxia Status: Acute (4) NSTEMI (non-ST elevated myocardial infarction) Status: Acute (5) Respiratory failure Status: Acute Brief Hospital Course Mr. Rios is a 48 old [sex] who presented with [ RESPIRATORY FAILURE] CONDITION AT DISCHARGE: Improved Discharge Medications Current Medications Albuterol/ Ipratropium (Duoneb) 3 ml 1X ONCE NEB Last administered on 03/09/19at 21:21; Start 03/09/19 at 21:30; Stop 03/09/19 at 21:31; Status DC Dexamethasone Sodium Phosphate (Decadron) 10 mg 1X ONCE IV Last administered on 03/09/19at 22:29; Start 03/09/19 at 22:00; Stop 03/09/19 at 22:01; Status DC Propofol 100 ml @ 0 mls/hr CONT PRN IV SEE PROTOCOL Last administered on 03/10/19at 07:19; Start 03/09/19 at 22:30; Stop 03/10/19 at 07:28; Status DC Fentanyl Citrate (Fentanyl 2ml Vial) 50 mcg PRN Q1HR PRN IV SEE COMMENTS; Start 03/09/19 at 22:30; Stop 03/10/19 at 07:28; Status DC Chlorhexidine Gluconate (Peridex) 15 ml BID MM Last administered on 04/05/19at 08:06; Start 03/10/19 at 09:00; Stop 04/05/19 at 11:08; Status DC Famotidine (Pepcid Vial) 20 mg BID IVP Last administered on 04/06/19at 21:27; Start 03/10/19 at 09:00; Stop 04/07/19 at 09:45; Status DC Propofol 50 ml @ As Directed STK-MED ONCE IV ; Start 03/09/19 at 22:28; Stop 03/09/19 at 22:28; Status DC Albuterol/ Ipratropium (Duoneb) 3 ml 1X ONCE NEB Last administered on 03/10/19at 02:04; Start 03/09/19 at 23:00; Stop 03/09/19 at 23:01; Status DC Albuterol/ Ipratropium (Duoneb) 3 ml 1X ONCE NEB Last administered on 03/10/19at 02:04; Start 03/09/19 at 23:00; Stop 03/09/19 at 23:01; Status DC Fentanyl Citrate (Fentanyl 2ml Vial) 100 mcg 1X ONCE IV Last administered on 03/09/19at 23:31; Start 03/09/19 at 23:30; Stop 03/09/19 at 23:31; Status DC Bumetanide (Bumex) 1 mg 1X ONCE IV Last administered on 03/10/19at 00:21; Start 03/10/19 at 00:00; Stop 03/10/19 at 00:01; Status DC Heparin Sodium (Porcine) (Heparin Sodium) 4,000 unit 1X ONCE IV Last administered on 03/10/19at 00:31; Start 03/10/19 at 00:00; Stop 03/10/19 at 00:01; Status DC Heparin Sodium/ Dextrose 500 ml @ 0 mls/hr CONT PRN IV PER PROTOCOL Last administered on 03/10/19at 23:34; Start 03/09/19 at 23:45; Stop 03/11/19 at 16:13; Status DC Heparin Sodium (Porcine) (Heparin Sodium) 5,500 unit PRN Q6HRS PRN IV FOR UFH LEVEL LESS THAN 0.2 Last administered on 03/11/19at 00:57; Start 03/09/19 at 23:45; Stop 03/11/19 at 16:13; Status DC Aspirin (Aspirin Rectal Supp) 300 mg 1X ONCE AK Last administered on 03/10/19at 03:42; Start 03/10/19 at 00:00; Stop 03/10/19 at 00:01; Status DC Propofol 50 ml @ As Directed STK-MED ONCE IV ; Start 03/09/19 at 23:38; Stop 03/09/19 at 23:38; Status DC Propofol 50 ml @ As Directed STK-MED ONCE IV ; Start 03/09/19 at 23:38; Stop 03/09 at 23:38; Status DC Piperacillin Sod/ Tazobactam Sod 4.5 gm/Sodium Chloride 100 ml @ 200 mls/hr 1X ONCE IV Last administered on 03/10/19at 05:19; Start 03/10/19 at 00:30; Stop 03/10/19 at 00:59; Status DC Propofol 50 ml @ As Directed STK-MED ONCE IV ; Start 03/10/19 at 00:51; Stop 03/10/19 at 00:51; Status DC Propofol 50 ml @ As Directed STK-MED ONCE IV ; Start 03/10/19 at 01:14; Stop 03/10/19 at 01:15; Status DC Fentanyl Citrate (Fentanyl 2ml Vial) 100 mcg 1X ONCE IV Last administered on 03/10/19at 01:26; Start 03/10/19 at 01:45; Stop 03/10/19 at 01:46; Status DC Clonidine HCl (Catapres) 0.1 mg 1X ONCE PO ; Start 03/10/19 at 01:30; Stop 03/10/19 at 01:34; Status DC Midazolam HCl (Versed) 5 mg 1X ONCE IV Last administered on 03/10/19at 01:28; Start 03/10/19 at 01:30; Stop 03/10/19 at 01:34; Status DC Propofol 50 ml @ As Directed STK-MED ONCE IV ; Start 03/10/19 at 02:08; Stop 03/10/19 at 02:09; Status DC Propofol 50 ml @ As Directed STK-MED ONCE IV ; Start 03/10/19 at 02:36; Stop 03/10/19 at 02:36; Status DC Rocuronium [place] (Zemuron) 50 mg STK-MED ONCE .ROUTE ; Start 03/10/19 at 05:15; Stop 03/10/19 at 05:15; Status DC Etomidate (Amidate) 20 mg STK-MED ONCE IV ; Start 03/10/19 at 05:15; Stop 03/10/19 at 05:16; Status DC Fentanyl Citrate 30 ml @ 0 mls/hr CONT PRN IV SEE PROTOCOL Last administered on 04/03/19at 09:05; Start 03/10/19 at 07:30; Stop 04/07/19 at 09:44; Status DC Propofol 100 ml @ 0 mls/hr CONT PRN IV SEE PROTOCOL Last administered on 04/02/19at 15:10; Start 03/10/19 at 07:30; Stop 04/07/19 at 09:44; Status DC Fentanyl Citrate (Fentanyl 2ml Vial) 25 mcg PRN Q1HR PRN IV SEE COMMENTS; Start 03/10/19 at 07:30; Stop 04/07/19 at 09:44; Status DC Fentanyl Citrate (Fentanyl 2ml Vial) 50 mcg PRN Q1HR PRN IV SEE COMMENTS; Start 03/10/19 at 07:30; Stop 04/07/19 at 09:45; Status DC Artificial Tears (Artificial Tears) 1 drop PRN Q1HR PRN OU DRY EYE, 1ST CHOICE Last administered on 03/13/19at 13:32; Start 03/10/19 at 07:30; Stop 04/07/19 at 09:45; Status DC Famotidine (Pepcid Vial) 20 mg BID IVP ; Start 03/10/19 at 09:00; Status UNV Morphine Sulfate (Morphine Sulfate) 2 mg PRN Q1HR PRN IV SEE COMMENTS. Last administered on 03/25/19at 09:18; Start 03/10/19 at 07:30; Stop 04/07/19 at 09:45; Status DC Morphine Sulfate (Morphine Sulfate) 4 mg PRN Q1HR PRN IV SEE COMMENTS. Last administered on 03/31/19at 10:50; Start 03/10/19 at 07:30; Stop 04/07/19 at 09:45; Status DC Midazolam HCl 100 ml @ 0 mls/hr CONT PRN IV SEE PROTOCOL Last administered on 04/01/19at 02:07; Start 03/10/19 at 07:30; Stop 04/07/19 at 09:45; Status DC Levofloxacin/ Dextrose (Levaquin Per Pharmacy) 1 each PRN DAILY PRN MC SEE COMMENTS; Start 03/10/19 at 08:15; Stop 03/14/19 at 09:25; Status DC Albuterol/ Ipratropium (Duoneb) 3 ml RTQID NEB Last administered on 04/17/19at 11:41; Start 03/10/19 at 12:00 Sodium Chloride 1,000 ml @ 100 mls/hr Q10H IV Last administered on 03/10/19at 23:34; Start 03/10/19 at 08:15; Stop 03/11/19 at 16:02; Status DC Amlodipine Besylate (Norvasc) 5 mg DAILY PO Last administered on 03/10/19at 09:13; Start 03/10/19 at 09:00; Stop 03/10/19 at 10:04; Status DC Hydrochlorothiazide (Hydrodiuril) 25 mg DAILY PO Last administered on 03/10/19at 09:13; Start 03/10/19 at 09:00; Stop 03/10/19 at 10:04; Status DC Lisinopril (Prinivil) 5 mg DAILY PO Last administered on 03/10/19at 09:13; Start 03/10/19 at 09:00; Stop 03/10/19 at 10:04; Status DC Levofloxacin/ Dextrose 100 ml @ 100 mls/hr Q24H IV Last administered on 03/14/19at 08:10; Start 03/10/19 at 09:00; Stop 03/14/19 at 09:25; Status DC Aspirin (Amanda Aspirin) 325 mg 1X ONCE PO Last administered on 03/10/19at 10:55; Start 03/10/19 at 10:30; Stop 03/10/19 at 10:31; Status DC Aspirin (Children'S Aspirin) 81 mg DAILYWBKFT PO Last administered on 04/17/19at 08:16; Start 03/11/19 at 08:00 Amlodipine Besylate (Norvasc) 10 mg DAILY PO Last administered on 03/11/19at 09:37; Start 03/11/19 at 09:00; Stop 03/11/19 at 12:50; Status DC Hydralazine HCl (Apresoline Inj) 10 mg PRN Q4HRS PRN IVP ELEVATED BP, SEE COMMENTS; Start 03/10/19 at 10:15; Stop 03/12/19 at 09:37; Status DC Furosemide (Lasix) 40 mg DAILY IVP Last administered on 03/11/19at 09:37; Start 03/10/19 at 11:00; Stop 03/11/19 at 11:24; Status DC Insulin Human Lispro (HumaLOG) 0-9 UNITS TIDWMEALS SQ ; Start 03/10/19 at 12:00; Stop 03/10/19 at 17:57; Status DC Dextrose (Dextrose 50%-Water Syringe) 12.5 gm PRN Q15MIN PRN IV SEE COMMENTS; Start 03/10/19 at 11:15; Stop 03/12/19 at 16:47; Status DC Dextrose 250 ml PRN Q15MIN PRN IV SEE COMMENTS; Start 03/10/19 at 11:15; Stop 03/10/19 at 11:05; Status DC Iohexol (Omnipaque 350 Mg/ml) 100 ml 1X ONCE IV Last administered on 03/10/19at 14:05; Start 03/10/19 at 11:45; Stop 03/10/19 at 11:47; Status DC Info (CONTRAST GIVEN -- Rx MONITORING) 1 each PRN DAILY PRN MC SEE COMMENTS; Start 03/10/19 at 11:45; Stop 03/12/19 at 11:44; Status DC Piperacillin Sod/ Tazobactam Sod (Zosyn Per Pharmacy) 1 each PRN DAILY PRN MC SEE COMMENTS; Start 03/10/19 at 11:45; Stop 03/25/19 at 08:36; Status DC Vancomycin HCl (Vanco Per Pharmacy) 1 each PRN DAILY PRN MC SEE COMMENTS Last administered on 03/11/19at 09:42; Start 03/10/19 at 11:45; Stop 03/11/19 at 13:57; Status DC Vancomycin HCl 2 gm/Sodium Chloride 500 ml @ 250 mls/hr 1X ONCE IV Last administered on 03/10/19at 12:41; Start 03/10/19 at 13:00; Stop 03/10/19 at 14:59; Status DC Piperacillin Sod/ Tazobactam Sod 3.375 gm/Sodium Chloride 50 ml @ 100 mls/hr Q6HRS IV Last administered on 03/24/19at 05:45; Start 03/10/19 at 12:30; Stop 03/24/19 at 07:24; Status DC Vancomycin HCl 1.75 gm/Sodium Chloride 500 ml @ 250 mls/hr Q12H IV Last administered on 03/11/19at 12:43; Start 03/11/19 at 01:00; Stop 03/11/19 at 13:57; Status DC Vancomycin HCl (Vancomycin Trough Level) 1 each 1X ONCE MC ; Start 03/12/19 at 12:30; Stop 03/12/19 at 12:31; Status Cancel Insulin Human Lispro (HumaLOG) 0-9 UNITS Q6HRS SQ ; Start 03/11/19 at 00:00; Stop 03/27/19 at 09:06; Status DC Magnesium Sulfate/ Dextrose 100 ml @ 50 mls/hr DAILY IV Last administered on 03/11/19at 09:28; Start 03/11/19 at 09:00; Stop 03/14/19 at 08:59; Status DC Potassium Phosphate 27.2 mmol/Sodium Chloride 259.0667 ml @ 64.753 m... 1X ONCE IV Last administered on 03/11/19at 09:28; Start 03/11/19 at 10:00; Stop 03/11/19 at 14:00; Status DC Potassium Phosphate 27.2 mmol/Sodium Chloride 259.0667 ml @ 64.753 m... 1X ONCE IV ; Start 03/11/19 at 14:00; Stop 03/11/19 at 18:00; Status DC Lorazepam (Ativan Inj) 1 mg PRN Q1HR PRN IV ANXIETY Last administered on 03/14/19at 16:32; Start 03/11/19 at 11:00; Stop 03/19/19 at 10:31; Status DC Sodium Chloride 1,000 ml @ 1,000 mls/hr 1X ONCE IV Last administered on 03/11/19at 12:06; Start 03/11/19 at 11:30; Stop 03/11/19 at 12:29; Status DC Norepinephrine Bitartrate 250 ml @ 27.837 mls/ hr CONT PRN IV SEE I/O RECORD Last administered on 03/13/19at 04:13; Start 03/11/19 at 13:00; Stop 03/26/19 at 09:22; Status DC Hydralazine HCl (Apresoline Inj) 10 mg PRN Q4HRS PRN IVP ELEVATED BP, SEE COMMENTS Last administered on 04/08/19at 23:31; Start 03/11/19 at 13:00 Linezolid/Dextrose 300 ml @ 300 mls/hr Q12HR IV Last administered on 03/22/19at 21:38; Start 03/11/19 at 21:00; Stop 03/23/19 at 07:48; Status DC Potassium Chloride/Water 50 ml @ 50 mls/hr Q1H IV Last administered on 03/11/19at 17:28; Start 03/11/19 at 16:00; Stop 03/11/19 at 17:59; Status DC Heparin Sodium (Porcine) (Heparin Sodium) 5,000 unit Q8HRS SQ Last administered on 04/07/19at 05:53; Start 03/11/19 at 22:00; Stop 04/07/19 at 09:45; Status DC Multi-Ingred Cream/Lotion/Oil/ Oint (Artificial Tears Eye Ointment) 1 zuri PRN Q1HR PRN OU DRY EYE; Start 03/12/19 at 09:00 Potassium Chloride/Water 50 ml @ 50 mls/hr 1X ONCE IV Last administered on 03/12/19at 09:44; Start 03/12/19 at 10:00; Stop 03/12/19 at 10:59; Status DC Potassium Chloride/Water 50 ml @ 50 mls/hr 1X ONCE IV ; Start 03/12/19 at 10:30; Stop 03/12/19 at 11:31; Status DC Insulin Human Lispro (HumaLOG) 0-9 UNITS TIDWMEALS SQ ; Start 03/12/19 at 17:00; Stop 03/12/19 at 16:24; Status DC Dextrose (Dextrose 50%-Water Syringe) 12.5 gm PRN Q15MIN PRN IV SEE COMMENTS; Start 03/12/19 at 16:15 Dextrose 250 ml PRN Q15MIN PRN IV SEE COMMENTS; Start 03/12/19 at 16:15; Stop 03/27/19 at 08:59; Status DC Insulin Human Lispro (HumaLOG) 0-9 UNITS Q6HRS SQ Last administered on 03/26/19at 00:37; Start 03/12/19 at 18:00; Stop 04/10/19 at 11:37; Status DC Dexmedetomidine HCl 400 mcg/ Sodium Chloride 100 ml @ 0 mls/hr CONT PRN IV ANXIETY / AGITATION Last administered on 03/21/19at 04:33; Start 03/12/19 at 20:30; Stop 03/26/19 at 09:22; Status DC Sodium Chloride 500 ml @ 500 mls/hr 1X PRN PRN IV see comments Last admi nistered on 03/12/19at 23:22; Start 03/12/19 at 20:30; Stop 03/30/19 at 14:05; Status DC Atropine Sulfate (ATROPINE 0.5mg SYRINGE) 0.5 mg PRN Q5MIN PRN IV SEE COMMENTS; Start 03/12/19 at 20:30; Stop 03/30/19 at 14:06; Status DC Vecuronium [place] (Norcuron Bolus) 10 mg PRN Q1HR PRN IV OVERBREATHING VENT Last administered on 03/25/19at 10:49; Start 03/13/19 at 07:30; Stop 04/07/19 at 09:45; Status DC Perflutren Protein Type A Microsphe (Optison) 0.66 mg STK-MED ONCE IV ; Start 03/13/19 at 09:08; Stop 03/13/19 at 09:08; Status DC Perflutren Protein Type A Microsphe (Optison) 0.66 mg 1X ONCE IV Last administered on 03/13/19at 09:40; Start 03/13/19 at 09:15; Stop 03/13/19 at 09:16; Status DC Furosemide (Lasix) 40 mg 1X ONCE IVP Last administered on 03/13/19at 13:32; Start 03/13/19 at 10:30; Stop 03/13/19 at 10:31; Status DC Daptomycin 1320 mg/Sodium Chloride 50 ml @ 100 mls/hr ONCE ONCE IV Last administered on 03/15/19at 13:53; Start 03/15/19 at 13:00; Stop 03/16/19 at 09:33; Status DC Daptomycin 1340 mg/Sodium Chloride 50 ml @ 100 mls/hr Q24H IV ; Start 03/16/19 at 08:45; Status UNV Daptomycin 1340 mg/Sodium Chloride 50 ml @ 100 mls/hr Q24H IV ; Start 03/16/19 at 09:00; Status Cancel Daptomycin 830 mg/ Sodium Chloride 50 ml @ 100 mls/hr Q24H IV Last administered on 03/18/19at 15:03; Start 03/16/19 at 14:00; Stop 03/19/19 at 07:41; Status DC Methylprednisolone Sodium Succinate (SOLU-Medrol 125MG VIAL) 100 mg Q8HRS IV Last administered on 03/23/19at 05:54; Start 03/16/19 at 12:00; Stop 03/23/19 at 12:03; Status DC Furosemide (Lasix) 40 mg 1X ONCE IVP Last administered on 03/16/19at 16:46; Start 03/16/19 at 16:30; Stop 03/16/19 at 16:31; Status DC Fentanyl Citrate (Fentanyl 600 Mcg/30 ml CLERICAL STOCK INSPECTOR) 600 mcg STK-MED ONCE IV ; Start 03/13/19 at 17:00; Stop 03/17/19 at 11:02; Status DC Furosemide 100 mg/ Sodium Chloride 100 ml @ 5 mls/hr CONT PRN IV SEE I/O RECORD Last administered on 03/18/19at 00:20; Start 03/17/19 at 15:45; Stop 03/18/19 at 10:36; Status DC Furosemide 100 mg/ Sodium Chloride 100 ml @ 5 mls/hr CONT PRN IV SEE I/O RECORD Last administered on 03/21/19at 08:34; Start 03/18/19 at 10:45; Stop 03/21/19 at 12:57; Status DC Lorazepam (Ativan Inj) 2 mg PRN Q1HR PRN IV ANXIETY Last administered on 04/04/19at 00:30; Start 03/19/19 at 10:45; Stop 04/07/19 at 09:45; Status DC Lisinopril (Prinivil) 5 mg DAILY PO Last administered on 04/17/19at 08:16; Start 03/21/19 at 11:30 Amlodipine Besylate (Norvasc) 10 mg DAILY PO Last administered on 04/17/19at 08:16; Start 03/21/19 at 11:30 Furosemide 100 mg/ Sodium Chloride 100 ml @ 10 mls/hr CONT PRN IV SEE I/O RECORD Last administered on 03/22/19at 05:05; Start 03/21/19 at 16:00; Stop 03/22/19 at 12:39; Status DC Scopolamine (Transderm-Scop) 1 patch Q3DAYS TD Last administered on 04/06/19at 10:24; Start 03/22/19 at 11:00; Stop 04/07/19 at 09:45; Status DC Furosemide 100 mg/ Sodium Chloride 100 ml @ 5 mls/hr CONT PRN IV SEE I/O RECORD Last administered on 03/22/19at 21:38; Start 03/22/19 at 12:45; Stop 03/23/19 at 17:48; Status DC Methylprednisolone Sodium Succinate (SOLU-Medrol 125MG VIAL) 50 mg Q8HRS IV Last administered on 03/27/19at 05:30; Start 03/23/19 at 14:00; Stop 03/27/19 at 11:20; Status DC Insulin Human Lispro (HumaLOG) 0-5 UNITS TIDWMEALS SQ ; Start 03/27/19 at 09:30; Status Cancel Dextrose (Dextrose 50%-Water Syringe) 12.5 gm PRN Q15MIN PRN IV SEE COMMENTS; Start 03/27/19 at 09:00; Status Cancel Dextrose 250 ml PRN Q15MIN PRN IV SEE COMMENTS; Start 03/27/19 at 09:00; Status Cancel Methylprednisolone Sodium Succinate (SOLU-Medrol 40MG VIAL) 30 mg Q8HRS IV Last administered on 04/02/19at 06:28; Start 03/27/19 at 14:00; Stop 04/02/19 at 11:19; Status DC Furosemide (Lasix) 40 mg 1X ONCE IVP Last administered on 03/27/19at 11:58; Start 03/27/19 at 12:00; Stop 03/27/19 at 12:01; Status DC Furosemide (Lasix) 40 mg 1X ONCE IVP Last administered on 03/28/19at 10:15; Start 03/28/19 at 09:30; Stop 03/28/19 at 09:46; Status DC Furosemide (Lasix) 40 mg 1X ONCE IVP Last administered on 03/29/19at 09:44; Start 03/29/19 at 09:30; Stop 03/29/19 at 09:31; Status DC Sodium Chloride 1,000 ml @ 1,000 mls/hr 1X ONCE IV Last administered on 03/29/19at 20:41; Start 03/29/19 at 20:30; Stop 03/29/19 at 21:29; Status DC Norepinephrine Bitartrate 250 ml @ 38.554 mls/ hr CONT PRN IV SEE I/O RECORD; Start 03/29/19 at 20:30; Stop 04/12/19 at 13:41; Status DC Furosemide (Lasix) 40 mg 1X ONCE IVP Last administered on 03/30/19at 10:42; Start 03/30/19 at 10:15; Stop 03/30/19 at 10:16; Status DC Sodium Bicarbonate (Sodium Bicarb Adult 8.4% Syr) 50 meq STK-MED ONCE .ROUTE ; Start 03/31/19 at 17:28; Stop 03/31/19 at 17:29; Status DC Lactic Acid (Lac-Hydrin) 1 zuri BID TP Last administered on 04/17/19at 08:16; Start 04/01/19 at 21:00 Methylprednisolone Sodium Succinate (SOLU-Medrol 40MG VIAL) 30 mg DAILY IV Last administered on 04/07/19at 05:47; Start 04/03/19 at 09:00; Stop 04/07/19 at 09:45; Status DC Furosemide (Lasix) 40 mg 1X ONCE IVP Last administered on 04/02/19at 12:09; Start 04/02/19 at 11:30; Stop 04/02/19 at 11:35; Status DC Furosemide (Lasix) 40 mg 1X ONCE IVP ; Start 04/02/19 at 12:00; Stop 04/02/19 at 12:01; Status DC Dexmedetomidine HCl 400 mcg/ Sodium Chloride 100 ml @ 0 mls/hr CONT PRN IV ANXI ETY / AGITATION Last administered on 04/03/19at 11:03; Start 04/02/19 at 16:00; Stop 04/07/19 at 09:45; Status DC Sodium Chloride 1,000 ml @ 1,000 mls/hr 1X ONCE IV Last administered on 04/02/19at 22:00; Start 04/02/19 at 22:00; Stop 04/02/19 at 22:59; Status DC Ondansetron HCl (Zofran) 4 mg 1X ONCE IM Last administered on 04/03/19at 12:39; Start 04/03/19 at 12:45; Stop 04/03/19 at 12:46; Status DC Acetaminophen (Tylenol) 500 mg PRN Q6HRS PRN PO MILD PAIN / TEMP Last administered on 04/16/19at 07:16; Start 04/03/19 at 18:30 Ondansetron HCl (Zofran) 4 mg PRN Q6HRS PRN IVP NAUSEA/VOMITING Last administered on 04/04/19at 21:04; Start 04/03/19 at 18:30 Amino Acids/ Glycerin/ Electrolytes 1,000 ml @ 50 mls/hr Q20H IV Last administered on 04/13/19at 08:43; Start 04/06/19 at 12:15; Stop 04/13/19 at 13:03; Status DC Potassium Chloride (Klor-Con) 40 meq 1X ONCE PO Last administered on 04/07/19at 17:40; Start 04/07/19 at 11:45; Stop 04/07/19 at 11:46; Status DC Insulin Human Lispro (HumaLOG) 0-9 UNITS PRN Q6HRS PRN SQ PER SLIDING SCALE; Start 04/10/19 at 11:45; Stop 04/11/19 at 20:56; Status DC Insulin Human Lispro (HumaLOG) 0-9 UNITS TIDWMEALS SQ ; Start 04/12/19 at 08:00 Guaifenesin (Robitussin Dm) 10 ml PRN Q6HRS PRN PO COUGH; Start 04/16/19 at 08:45 Active Scripts Active Norvasc (Amlodipine Besylate) 5 Mg Tablet 1 Tab PO DAILY Lisinopril 5 Mg Tablet 1 Tab PO DAILY Reported Hydrochlorothiazide Tablet (Hydrochlorothiazide) 25 Mg Tablet 25 Mg PO DAILY Vital Signs Vital Signs Date Time Temp Pulse Resp B/P (MAP) Pulse Ox O2 Delivery O2 Flow Rate FiO2 04/17/19 11:42 Room Air 04/17/19 11:00 98.2 93 21 114/71 (85) 97 98.2 04/17/19 08:00 1.0 Labs Laboratory Tests Test 04/15/19 17:02 04/15/19 20:36 04/16/19 07:52 04/16/19 10:59 Glucose (Fingerstick) 95 mg/dL (70-99) 101 mg/dL (70-99) 96 mg/dL (70-99) 94 mg/dL (70-99) Test 04/16/19 16:10 04/16/19 20:22 04/17/19 07:30 04/17/19 11:06 Glucose (Fingerstick) 93 mg/dL (70-99) 110 mg/dL (70-99) 98 mg/dL (70-99) 106 mg/dL (70-99) Laboratory Tests Test 04/16/19 16:10 04/16/19 20:22 04/17/19 07:30 04/17/19 11:06 Glucose (Fingerstick) 93 mg/dL (70-99) 110 mg/dL (70-99) 98 mg/dL (70-99) 106 mg/dL (70-99) Allergies Allergies Coded Allergies Type Severity Reaction Last Updated Verified No Known Drug Allergies 01/09/19 No Disposition/Orders: Other (D/C SNF BED) Patient Instructions D/C PLANNING 36 MIN PRICILA GOMEZ MD Apr 17, 2019 12:43
[2019-04-17] MEDS ORDERED: GUAI5SYR PO (12:47)
[2019-04-17] MEDS ORDERED: IPRA3AMP29 NEB (12:47)
[2019-04-17] MEDS ORDERED: INSU100I11 SQ (12:47)
[2019-04-17] MEDS ORDERED: ACET500T68 PO (12:47)
[2019-04-17] MEDS ORDERED: ASPI-630 PO (12:47)
[2019-04-17] MEDS ORDERED: AMLO10TA8 PO (12:47)
[2019-04-17] MEDS ORDERED: AMMO225L5 TP (12:47)
[2019-04-17] MEDS ORDERED: [UNRECOGNIZED DRUG - CODE] OU (12:47)
--- NOTE | 2019-04-17 12:49 | SNU/HH DC ---
DISCHARGE ORDERS DISCHARGE INFORMATION: FINAL DIAGNOSIS Problems Medical Problems: (1) CHF exacerbation Status: Acute (2) COPD exacerbation Status: Acute (3) Hypoxia Status: Acute (4) NSTEMI (non-ST elevated myocardial infarction) Status: Acute (5) Respiratory failure Status: Acute CONDITION ON DISCHARGE: Stable CODE STATUS: Code Status: Full RETIREMENT: SNF STAY <30 DAYS: Yes HOSPICE: HOSPICE: No HOSPICE EVAL & TREAT: No LTAC: ADMIT TO LTAC: No POST DISCHARGE ORDERS: ACTIVITY ORDERS: Activity as tolerated DIET AFTER DISCHARGE: ADA WOUND/INCISION CARE: Change dressing, Reinforce dressing PRN CHECKS AFTER DISCHARGE: CHECKS AFTER DISCHARGE: Weigh Yourself Daily TREATMENT/EQUIPMENT ORDERS: ADAPTIVE EQUIPMENT NEEDED: None RESPIRATORY EQUIPMENT NEEDED: Nebulizer Physical Therapy For: Evalulation/Treatment Occupational Therapy For: Evaluation/Treatment Speech Language Pathology For: Evaluation/Treatment DISCHARGE MEDICATIONS: Home Meds Active Scripts Ammonium Lactate (Ammonium Lactate) 226 Gm Lotion, 1 RAYNA TP BID for DRY SKIN for 14 Days, #60 MISC Prov:PRICILA GOMEZ MD 04/17/19 Insulin Lispro (HUMALOG) 100 Unit/1 Ml Insuln.pen, 0 UNITS SQ TIDWMEALS for GLUCOSE for 14 Days, #1 EACH Prov:PRICILA GOMEZ MD 04/17/19 Mineral Oil/Petrolatum,White (Stye Lubricant Eye Ointment) 3.5 Gm Oint...g., 1 RAYNA OU PRN Q1HR PRN for DRY EYE for 7 Days, #1 MISC Prov:PRICILA GOMEZ MD 04/17/19 Guaifenesin/Dextromethorphan (GUAIFENESIN DM SYRUP) 5 Ml Syrup, 10 ML PO PRN Q6HRS PRN for COUGH for 14 Days, #120 MISC Prov:PRICILA GOMEZ MD 04/17/19 Acetaminophen (ACETAMINOPHEN) 500 Mg Tablet, 500 MG PO PRN Q6HRS PRN for MILD PAIN / TEMP for 28 Days, #60 TAB Prov:PRICILA GOMEZ MD 04/17/19 Aspirin (ASPIRIN) 81 Mg Tab.chew, 81 MG PO DAILYWBKFT for HEART HEALTH for 30 Days, #30 TAB.CHEW Prov:PRICILA GOMEZ MD 04/17/19 Amlodipine Besylate (AMLODIPINE BESYLATE) 10 Mg Tablet, 10 MG PO DAILY for BLOOD PRESSURE for 30 Days, #30 TAB Prov:PRICILA GOMEZ MD 04/17/19 Ipratropium/Albuterol Sulfate (DUONEB 0.5-3(2.5) MG/3 ML) 3 Ml Ampul.neb, 3 ML NEB RTQID for COPD for 30 Days, #120 EACH Prov:PRCIILA GOMEZ MD 04/17/19 Lisinopril (LISINOPRIL) 5 Mg Tablet, 1 TAB PO DAILY for hypertension, #30 TAB Prov:ERROL CASILLAS MD 01/12/19 Discontinued Reported Medications Hydrochlorothiazide (HYDROCHLOROTHIAZIDE TABLET ) 25 Mg Tablet, 25 MG PO DAILY for DIURETIC, TAB 0 Refills 03/10/19 Discontinued Scripts Amlodipine Besylate (NORVASC) 5 Mg Tablet, 1 TAB PO DAILY for hypertension, #30 TAB Prov:ERROL CASILLAS MD 01/12/19 PRICILA GOMEZ MD Apr 17, 2019 12:49
--- NOTE | 2019-04-17 13:26 | SNU/HH DC ---
DISCHARGE ORDERS DISCHARGE INFORMATION: FINAL DIAGNOSIS Problems Medical Problems: (1) CHF exacerbation Status: Acute (2) COPD exacerbation Status: Acute (3) Hypoxia Status: Acute (4) NSTEMI (non-ST elevated myocardial infarction) Status: Acute (5) Respiratory failure Status: Acute CONDITION ON DISCHARGE: Stable CODE STATUS: Code Status: DNR/DNI (ADMIT TO INTERMEDIATE CARE) RESIDENTIAL: SNF STAY <30 DAYS: No POST DISCHARGE ORDERS: ACTIVITY ORDERS: Activity as tolerated DIET AFTER DISCHARGE: ADA WOUND/INCISION CARE: Change dressing, Reinforce dressing PRN CHECKS AFTER DISCHARGE: CHECKS AFTER DISCHARGE: Weigh Yourself Daily TREATMENT/EQUIPMENT ORDERS: ADAPTIVE EQUIPMENT NEEDED: None RESPIRATORY EQUIPMENT NEEDED: Nebulizer Physical Therapy For: Evalulation/Treatment Occupational Therapy For: Evaluation/Treatment Speech Language Pathology For: Evaluation/Treatment DISCHARGE MEDICATIONS: Home Meds Active Scripts Ammonium Lactate (Ammonium Lactate) 226 Gm Lotion, 1 RAYNA TP BID for DRY SKIN for 14 Days, #60 MISC Prov:PRICILA GOMEZ MD 04/17/19 Insulin Lispro (HUMALOG) 100 Unit/1 Ml Insuln.pen, 0 UNITS SQ TIDWMEALS for GLUCOSE for 14 Days, #1 EACH Prov:PRICILA GOMEZ MD 04/17/19 Mineral Oil/Petrolatum,White (Stye Lubricant Eye Ointment) 3.5 Gm Oint...g., 1 RAYNA OU PRN Q1HR PRN for DRY EYE for 7 Days, #1 MISC Prov:PRICILA GOMEZ MD 04/17/19 Guaifenesin/Dextromethorphan (GUAIFENESIN DM SYRUP) 5 Ml Syrup, 10 ML PO PRN Q6HRS PRN for COUGH for 14 Days, #120 MISC Prov:PRICILA GOMEZ MD 04/17/19 Acetaminophen (ACETAMINOPHEN) 500 Mg Tablet, 500 MG PO PRN Q6HRS PRN for MILD PAIN / TEMP for 28 Days, #60 TAB Prov:PRICILA GOMEZ MD 04/17/19 Aspirin (ASPIRIN) 81 Mg Tab.chew, 81 MG PO DAILYWBKFT for HEART HEALTH for 30 Days, #30 TAB.CHEW Prov:PRICILA GOMEZ MD 04/17/19 Amlodipine Besylate (AMLODIPINE BESYLATE) 10 Mg Tablet, 10 MG PO DAILY for BLOOD PRESSURE for 30 Days, #30 TAB Prov:PRICILA GOMEZ MD 04/17/19 Ipratropium/Albuterol Sulfate (DUONEB 0.5-3(2.5) MG/3 ML) 3 Ml Ampul.neb, 3 ML NEB RTQID for COPD for 30 Days, #120 EACH Prov:PRICILA GOMEZ MD 04/17/19 Lisinopril (LISINOPRIL) 5 Mg Tablet, 1 TAB PO DAILY for hypertension, #30 TAB Prov:ERROL CASILLAS MD 01/12/19 Discontinued Reported Medications Hydrochlorothiazide (HYDROCHLOROTHIAZIDE TABLET ) 25 Mg Tablet, 25 MG PO DAILY for DIURETIC, TAB 0 Refills 03/10/19 Discontinued Scripts Amlodipine Besylate (NORVASC) 5 Mg Tablet, 1 TAB PO DAILY for hypertension, #30 TAB Prov:ERROL CASILLAS MD 01/12/19 PRICILA GOMEZ MD Apr 17, 2019 13:26
[2019-04-17 15:00] VITALS: BP 113/63
--- NOTE | 2019-04-17 16:04 | NUR ---
SW following pt. Pt has been accepted at [facility]. Discussed with pt, pt's sister, Ivette and pt's sister in law Maddy. Maddy reported she had visited [facility] yesterday and would like pt to go there. Maddy also expressed concerns regarding pt's undiagnosed depression- passed to the hospitalist and hospitalist agreeable with [place] physician f/u with this. SW completed CARE assessment, faxed to [facility] and placed in pt's chart. Pt is provided with copy of certificate. Pt also completed AD and named Ivette, Gaby and Maddy as his DPOAs for healthcare decision. Pt and family is provided with original and copies to take home. A copy faxed to [facility] and placed on chart. SW phoned and faxed orders, CARE assessment, and copy of AD to [facility]. Jax from [facility] had to pick orders in person as fax was not working. Pt will transport via facility arranged transport at 1900. GARRY discussed regarding family request for depression and facility has a therapist that come to facility and they will work on putting pt on the list. Pt's sister, Ivette is notified of tile picker time. Discussed with RN.
--- NOTE | 2019-04-17 17:13 | PDOC ---
PROGRESS NOTES Assessment Assessment Generalized weakness, LE > UE. Myoclonic movements. Respiratory failure. ARDS. DM. HTN. COPD. Anemia. SHARON. Morbid obesity. Vaping. RECOMMENDATIONS/PLAN: Continue ASA daily. Continue medical treatment. OT/PT. Weight reduction. FU with PCP. PAST MEDICAL HISTORY: Hypertension. Ascending thoracic aorta 4.4 cm. Chronic lymphedema. History of congestive heart failure. Chronic obstructive pulmonary disease. Obstructive sleep apnea. ALLERGIES: No known allergies to drugs. FAMILY HISTORY: Hypertension. SOCIAL HISTORY: He smokes less than a pack a day. He does not drink alcohol or use recreational drugs. PAST SURGICAL HISTORY: No major surgery recently. MEDICATIONS: Refer to [facility] REVIEW OF SYSTEMS: Constitutional: Morbid obesity. Head: No recent traumatic brain or head injury. Skin: No edema, or rash. Ear: No infection. Eyes: No vision loss, or diplopia. Nose: No bleeding or purulent discharges. Hearing: No hearing decrease. Neck: No injury. Cardiac: HTN Pulmonary: COPD. GI: No GI Ulcer, GI bleeding Urinary/genital: No dysuria, incontinence, urinary retention. Endocrine: Diabetes Mellitus. Skeletomuscular: No muscular atrophy. Neurological: see HP. Psychiatric: Denies drug use/abuse. Otherwise, not [id number] review of systems. PHYSICAL EXAMINATION: General appearance in subacute distress. HEENT: Normocephalic and nontraumatic. Eyes, nose, ears, and throat are unremarkable. Neck is supple. No lymphadenopathy. No Crepitus. Cardiovascular: S1, S2, regular rate and rhythm. Pulmonary: Mildly decreased to auscultation bilaterally. Abdomen: Bowel sounds are positive. Abdomen is soft, nontender, and n ondistended. Extremities: Chronic significant skin changes as venous stasis in LE. NEUROLOGICAL EXAMINATION: Awake. Oriented partially to time, place and person. PERRL. EOMI. CN: no focal findings. Muscle tone: within normal. Muscle strength: 4-5 UE, 3 LE DTR: 0-1 due to obesity. Plantar reflex: Flexor response bilaterally Gait: not able to walk. Sensory exam: no acute abnormal findings. Objective Objective Vital Signs Date Time Temp Pulse Resp B/P (MAP) Pulse Ox O2 Delivery O2 Flow Rate FiO2 04/17/19 15:17 96 Room Air 04/17/19 15:00 98.0 85 18 113/63 (80) 98.0 04/17/19 08:00 1.0 Intake and Output 04/17/19 07:00 Output Total 1600 ml Balance -1600 ml Output Urine Total 1600 ml Vitals Signs Vitals VS - Last 72 Hours, by Label Date Time Temp Pulse Resp B/P (MAP) Pulse Ox O2 Delivery O2 Flow Rate FiO2 04/17/19 15:17 96 Room Air 04/17/19 15:00 98.0 85 18 113/63 (80) 98 Room Air 98.0 04/17/19 11:42 Room Air 04/17/19 11:00 98.2 93 21 114/71 (85) 97 Room Air 98.2 04/17/19 08:16 95 128/78 04/17/19 08:16 95 128/78 04/17/19 08:00 1.0 04/17/19 08:00 Room Air 04/17/19 07:29 96 Room Air 04/17/19 07:00 98.6 95 22 128/78 (95) 96 Room Air 98.6 04/17/19 03:00 90 18 136/58 (84) 93 Room Air 04/16/19 23:00 98.0 76 18 101/57 (72) 95 Room Air 1.0 98.0 04/16/19 22:24 1.0 04/16/19 22:24 Room Air 04/16/19 20:00 Room Air 04/16/19 19:42 95 Room Air 04/16/19 19:00 98.3 94 18 112/60 (77) 93 Room Air 1.0 98.3 04/16/19 15:00 97.8 82 18 128/75 (92) 92 Room Air 97.8 04/16/19 11:04 96 Room Air 04/16/19 11:00 98.0 92 18 161/96 (117) 94 Room Air 98.0 04/16/19 09:00 92 161/96 04/16/19 09:00 92 161/96 04/16/19 08:00 Room Air 04/16/19 07:15 97 Room Air 04/16/19 07:00 98.1 98 18 98/65 (76) 93 Room Air 98.1 Laboratory Laboratory Laboratory Tests Test 04/16/19 20:22 04/17/19 07:30 04/17/19 11:06 04/17/19 16:40 Glucose (Fingerstick) 110 mg/dL (70-99) 98 mg/dL (70-99) 106 mg/dL (70-99) 94 mg/dL (70-99) Microbiology 03/16/19 - Final, Complete 03/16/19 - Final, Complete 03/16/19 Gram Stain Evaluation - Final, Complete 03/16/19 Sputum Culture - Final, Complete 03/16/19 Sputum Result 1 - Final, Complete 03/16/19 Blood Culture - Final, Complete NO GROWTH AFTER 5 DAYS 03/09/19 Urine Culture - Final, Complete 03/09/19 Urine Culture Result 1 (WIL) - Final, Complete Comment Review of Relevant I have reviewed the following items peter (where applicable) has been applied. MARLENA MCFARLANE MD Apr 17, 2019 17:13
--- NOTE | 2019-04-17 19:30 | NUR ---
Pt discharged via EMS transport, pt had cell phone, hat, blanket and bag with his person upon discharge. Discharge paperwork given to EMS. Report had already been called by Hien ANNA to [facility].
== END 2019-04-17 19:30 | DRG 870 ==
LOC: ER 20:56 → 1 WEST ICU 23:30 → 2 NORTH 04-06 17:32 → 5 SOUTH 04-13 18:45
PROVIDERS: ADMIT Internal Medicine; ATTEND Internal Medicine
PROC: 30233N1 Transfusion of Nonautologous Red Blood Cells into Peripheral Vein, Percutaneous Approach (ICD-10-PCS; principal; 2019-03-12)
PROC: 5A1955Z Respiratory Ventilation, Greater than 96 Consecutive Hours (ICD-10-PCS; 2019-03-12)
PROC: 0BH17EZ Insertion of Endotracheal Airway into Trachea, Via Natural or Artificial Opening (ICD-10-PCS; 2019-03-12)
PROC: 02HV33Z Insertion of Infusion Device into Superior Vena Cava, Percutaneous Approach (ICD-10-PCS; 2019-03-23)
PROC: B548ZZA Ultrasonography of Superior Vena Cava, Guidance (ICD-10-PCS; 2019-03-23)
PROC: 5A09457 Assistance with Respiratory Ventilation, 24-96 Consecutive Hours, Continuous Positive Airway Pressure (ICD-10-PCS; 2019-04-02)
PROC: 5A09357 Assistance with Respiratory Ventilation, Less than 24 Consecutive Hours, Continuous Positive Airway Pressure (ICD-10-PCS; 2019-04-04)
PROC: 5A09357 Assistance with Respiratory Ventilation, Less than 24 Consecutive Hours, Continuous Positive Airway Pressure (ICD-10-PCS; 2019-04-05)
PROC: 5A09357 Assistance with Respiratory Ventilation, Less than 24 Consecutive Hours, Continuous Positive Airway Pressure (ICD-10-PCS; 2019-04-06)
PROC: 5A09357 Assistance with Respiratory Ventilation, Less than 24 Consecutive Hours, Continuous Positive Airway Pressure (ICD-10-PCS; 2019-04-07)
PROC: 5A09357 Assistance with Respiratory Ventilation, Less than 24 Consecutive Hours, Continuous Positive Airway Pressure (ICD-10-PCS; 2019-04-11)
DX: A41.9 Sepsis, unspecified organism (principal); J96.21 Acute and chronic respiratory failure with hypoxia; E43 Unspecified severe protein-calorie malnutrition; I50.33 Acute on chronic diastolic (congestive) heart failure; J96.22 Acute and chronic respiratory failure with hypercapnia; I21.A1 Myocardial infarction type 2; J15.6 Pneumonia due to other Gram-negative bacteria; J15.9 Unspecified bacterial pneumonia; D68.9 Coagulation defect, unspecified; E87.1 Hypo-osmolality and hyponatremia; G72.81 Critical illness myopathy; G93.40 Encephalopathy, unspecified; I13.0 Hypertensive heart and chronic kidney disease with heart failure and stage 1 through stage 4 chronic kidney disease, or unspecified chronic kidney disease; J44.0 Chronic obstructive pulmonary disease with (acute) lower respiratory infection; J44.1 Chronic obstructive pulmonary disease with (acute) exacerbation; N17.9 Acute kidney failure, unspecified; E66.2 Morbid (severe) obesity with alveolar hypoventilation; Z68.43 Body mass index [BMI] 50.0-59.9, adult; D64.9 Anemia, unspecified; D75.1 Secondary polycythemia; E11.22 Type 2 diabetes mellitus with diabetic chronic kidney disease; E87.5 Hyperkalemia; E87.6 Hypokalemia; E88.81 Metabolic syndrome and other insulin resistance; M19.90 Unspecified osteoarthritis, unspecified site; Z66 Do not resuscitate; F17.210 Nicotine dependence, cigarettes, uncomplicated; H05.20 Unspecified exophthalmos; N18.2 Chronic kidney disease, stage 2 (mild); Y84.8 Other medical procedures as the cause of abnormal reaction of the patient, or of later complication, without mention of misadventure at the time of the procedure; Z79.82 Long term (current) use of aspirin; Z82.49 Family history of ischemic heart disease and other diseases of the circulatory system; Z91.19 Patient's noncompliance with other medical treatment and regimen; Z99.81 Dependence on supplemental oxygen
CPT/HCPCS: 31500; 36556; 96374; 96375; 99291; C8924; 36415; 36569; 36600; 70450; 71045; 71275; 72125; 72131; 74018; 80048; 80053; 80061; 80069; 80076; 80307; 81001; 82550; 82553; 82565; 82805; 82962; 83036; 83605; 83735; 83880; 84100; 84132; 84145; 84443; 84478; 84484; 85007; 85025; 85027; 85520; 85610; 85730; 86738; 86850; 86900; 86901; 86920; 87040; 87070; 87077; 87086; 87205; 87449; 87493; 93005; 93970; 94002; 94003; 94640; 94660; 94760; 95816; J0360; J0878; J1100; J1644; J1815; J1940; J1956; J2020; J2060; J2250; J2270; J2405; J2543; J2704; J2920; J2930; J3010; J3370; J3475; J3480; J3490; J7030; J7040; J7050; J7620; P9016; Q9956; Q9967; 92526; 92610; 97110; 97116; 97530; 97535; G0378